=== PATIENT | female | born 1995 | race Hispanic/Latino ===

== ENCOUNTER 2018-09-14 11:44 | Emergency (ER) | payer OTHER ==
[2018-09-14 13:08] LABS: Absolute Monocytes 0.6 K/uL (0.1-1.3); Absolute Neutrophil 8.1 K/uL (1.8-8.0); Basophils % 0.7 % (0-1.3); Eosinophils % 0.7 % (0-4.4); Hematocrit 41.2 % (36.0-45.0); Lymphocytes % 18.8 % (15.3-44.8); Monocytes % 5.6 % (3.3-12.3)
[2018-09-14] MEDS ORDERED: NA CHLORIDE 0.9% 1,000 ML ONE (13:12)
[2018-09-14 13:13] LABS: Protime INR 1.03
[2018-09-14] MEDS ORDERED: CEFTRIAXONE/SWI 1gm 1 GM/10 ML SYR ONE (13:24)
[2018-09-14 13:35] LABS: ALT/SGPT 25 U/L (12-78); AST/SGOT 12 U/L (15-37); Albumin 3.6 g/dL (3.4-5.0); Alkaline Phosphatase 237 U/L (45-117); BUN Blood Urea Nitrogen 10 mg/dL (7-18); Bicarbonate 25 mmol/L (21-32); Bilirubin Direct < 0.1 mg/dL (0-0.2); Bilirubin Total 0.3 mg/dL (0.2-1.0); Glucose Level 107 mg/dL (74-106); Magnesium 2.4 mg/dL (1.8-2.4); NT PRO-BNP 12 pg/mL (<125); Potassium 3.4 mmol/L (3.5-5.1); Protein, Total 8.6 g/dL (6.4-8.2); Sodium Level 140 mmol/L (136-145); Troponin (Emerg Dept Use Only) < 0.02 ng/mL (0.0-0.045)
--- NOTE | 2018-09-14 13:41 | RAD REPORT ---
EXAM DESCRIPTION: RAD - Chest Single View - 09/14/2018 1:36 pm CLINICAL HISTORY: COUGH Chest pain. COMPARISON: Chest Single View dated 08/28/2016; CHEST PA AND LAT 2 VIEW dated 03/22/2014 FINDINGS: Portable technique limits examination quality. The lungs are grossly clear. The heart is normal in size. No displaced fractures.Mild thoracic dextro scoliosis. IMPRESSION: No acute intrathoracic process suspected.
[2018-09-14 13:46] LABS: Urine Blood NEGATIVE (NEG); Urine Glucose NEGATIVE (NEG); Urine Protein NEGATIVE (NEG); Urine Specific Gravity 1.015 (1.005-1.030); Urine pH 5.5 (5.0-7.0)
[2018-09-14 13:52] LABS: Urine Bacteria 20-50 /HPF (<20); Urine Culture Reflex Order REFLEXED
--- NOTE | 2018-09-14 13:57 | EDPHYS ---
Physician Documentation [facility] Name: Rosanne Sparks Age: 22 yrs Sex: Female : 1995 Arrival Date: 09/14/2018 Time: 11:46 Bed 17 Private MD: ED Physician Lorri Plascencia HPI: 09/14 13:23 This 22 yrs old Female presents to ER via Ambulatory with complaints of High ma2 Blood Pressure. 13:24 This 22 yrs old Female presents to ER via Ambulatory with complaints of High ma2 Blood Pressure. 13:24 Onset: The symptoms/episode began/occurred gradually, 1 week(s) ago. Associated signs ma2 and symptoms: Pertinent positives: lightheadedness , Pertinent negatives: dizziness, headache, nausea, weakness. Severity of symptoms: At its worst the blood pressure was mild, in the emergency department the blood pressure is unchanged. The patient has not experienced similar symptoms in the past. 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 - Social history:: Smoking status: Patient/guardian denies using tobacco, Patient/guardian denies using alcohol, street drugs, The patient lives alone. - Ebola Screening: : No symptoms or risks identified at this time. - Family history:: not pertinent. ROS: 13:24 Constitutional: Negative for fever, chills, and weight loss, Cardiovascular: Negative ma2 for chest pain, palpitations, and edema, Respiratory: Negative for shortness of breath, cough, wheezing, and pleuritic chest pain, Abdomen/GI: Negative for abdominal pain, nausea, diarrhea, and constipation, MS/Extremity: Negative for injury and deformity, Skin: Negative for injury, rash, and discoloration, Neuro: Negative for headache, weakness, numbness, tingling, and seizure. 13:24 Cardiovascular: Positive for 13:24 All other systems are negative. Exam: 13:24 Constitutional: This is a well developed, well nourished patient who is awake, alert, ma2 and in no acute distress. 13:24 ENT: Nares patent. No nasal discharge, no septal abnormalities noted. Tympanic membranes are normal and external auditory canals are clear. Oropharynx with no redness, swelling, or masses, exudates, or evidence of obstruction, uvula midline. Mucous membranes moist. Chest/axilla: Normal chest wall appearance and motion. Nontender with no deformity. No lesions are appreciated. Respiratory: Lungs have equal breath sounds bilaterally, clear to auscultation and percussion. No rales, rhonchi or wheezes noted. No increased work of breathing, no retractions or nasal flaring. Abdomen/GI: Soft, non-tender, with normal bowel sounds. No distension or tympany. No guarding or rebound. No evidence of tenderness throughout. MS/ Extremity: Pulses equal, no cyanosis. Neurovascular intact. Full, normal range of motion. Neuro: Awake and alert, GCS 15, oriented to person, place, time, and situation. Cranial nerves II-XII grossly intact. Motor strength 5/5 in all extremities. Sensory grossly intact. Cerebellar exam normal. Normal gait. 13:24 Cardiovascular: Rate: tachycardic, Rhythm: regular, Pulses: Heart sounds: normal, Edema: is not appreciated. Vital Signs: 11:54 BP 131 / 85; Pulse 118; Resp 18 S; Temp 98.2(TE); Pulse Ox 98% on R/A; Weight 92.53 kg aa5 (R); Height 5 ft. 0 in. (152.40 cm) (R); Pain 0/10; 14:24 BP 127 / 79; Pulse 95; Resp 16; Pulse Ox 98% ; bp 11:54 Body Mass Index 39.84 (92.53 kg, 152.40 cm) aa5 MDM: 11:55 Patient medically screened. ma2 13:24 Differential diagnosis: unlikely new onset HTN, bp here wnl, will do tachycardia workup ma2 no P risk, likely UTI vs pneumonia. 13:56 Data reviewed: vital signs, nurses notes. Counseling: I had a detailed discussion with ma2 the patient and/or guardian regarding: the historical points, exam findings, and any diagnostic results supporting the discharge/admit diagnosis, the presence of at least one elevated blood pressure reading (>120/80) during this emergency department visit, the need for outpatient follow up. Response to treatment: the patient's symptoms have markedly improved after treatment, the patient's symptoms have resolved after treatment. 09/14 12:32 Order name: Basic Metabolic Panel; Complete Time: 13:55 ma2 09/14 12:32 Order name: CBC with Diff; Complete Time: 13:24 ma2 09/14 12:32 Order name: LFT's; Complete Time: 13:55 ma2 09/14 12:32 Order name: Magnesium; Complete Time: 13:55 ma2 09/14 12:32 Order name: NT PRO-BNP; Complete Time: 13:55 ma2 09/14 12:32 Order name: PT-INR; Complete Time: 13:24 ma2 09/14 12:32 Order name: Troponin (emerg Dept Use Only); Complete Time: 13:55 ma2 09/14 12:32 Order name: XRAY Chest (1 view); Complete Time: 13:55 ma2 09/14 12:45 Order name: Strep; Complete Time: 13:55 ma2 09/14 13:10 Order name: Urine Microscopic Only; Complete Time: 13:55 ma2 09/14 13:20 Order name: Urine Dipstick--Ancillary (enter results); Complete Time: 13:55 bd 09/14 13:20 Order name: Urine --Ancillary (enter results); Complete Time: 13:55 bd 09/14 13:40 Order name: Throat Culture [facility] 09/14 13:53 Order name: Urine Culture [facility] 09/14 12:32 Order name: Urine Dipstick-Ancillary (obtain specimen); Complete Time: 13:13 ma2 Administered Medications: 12:44 Drug: NS 0.9% 1000 ml Route: IV; Rate: 1 bolus; Site: right antecubital; bp 14:00 Follow up: IV Status: Completed infusion; IV Intake: 1000ml bp 13:14 Drug: Rocephin 1 grams Route: IV; Rate: calculated rate; Site: right antecubital; bp 13:30 Follow up: IV Status: Completed infusion; IV Intake: 10ml bp Disposition: 09/14/18 13:56 Discharged to Home. Impression: Cystitis, unspecified without hematuria. - Condition is Stable. - Discharge Instructions: Urinary Tract Infection, Adult. - Prescriptions for Bactrim DS 800- 160 mg Oral Tablet - take 1 tablet by ORAL route every 12 hours for 3 days; 6 tablet. - Medication Reconciliation Form, Thank You Letter, Antibiotic Education, Prescription Opioid Use form. - Follow up: Private Physician; When: Tomorrow; Reason: Continuance of care. Signatures: Dispatcher [employer] EDKhalida Haywood, RN RN aa5 Suleman Regalado RN RN bp Lorri Plascencia MD MD ma2 Corrections: (The following items were deleted from the chart) 14:26 13:56 09/14/2018 13:56 Discharged to Home. Impression: Cystitis, unspecified without bp hematuria. Condition is Stable. Prescriptions for Bactrim DS 800-160 mg Oral Tablet - take 1 tablet by ORAL route every 12 hours for 3 days; 6 tablet. and Forms are Medication Reconciliation Form, Thank You Letter, Antibiotic Education, Prescription Opioid Use. Follow up: Private Physician; When: Tomorrow; Reason: Continuance of care. ma2
--- NOTE | 2018-09-14 13:57 | ER ---
Nurse's Notes [facility] Name: Rosanne Sparks Age: 22 yrs Sex: Female : 1995 Arrival Date: 09/14/2018 Time: 11:46 Bed 17 Private MD: Diagnosis: Cystitis, unspecified without hematuria Presentation: 09/14 11:52 Presenting complaint: Patient states: "I was dizzy yesterday so my grandma was worried aa5 about me". Pt currently denies dizziness, denies pain. Transition of care: patient was not received from another setting of care. Onset of symptoms was September 2018. Care prior to arrival: None. 11:52 Method Of Arrival: Ambulatory aa5 11:52 Acuity: GARRY 3 aa5 12:00 Risk Assessment: Do you want to hurt yourself or someone else? Patient reports no bp desire to harm self or others. Initial Sepsis Screen: Does the patient meet any 2 criteria? No. Patient's initial sepsis screen is negative. Does the patient have a suspected source of infection? No. Patient's initial sepsis screen is negative. Triage Assessment: 12:00 General: Appears in no apparent distress. comfortable, obese, Behavior is cooperative, bp appropriate for age, anxious. Pain: Denies pain. EENT: No deficits noted. Neuro: Level of Consciousness is awake, alert, obeys commands, Oriented to person, place, time, situation, Appropriate for age Reports dizziness. Cardiovascular: No deficits noted. Respiratory: Airway is patent Respiratory effort is even, unlabored, Respiratory pattern is regular, symmetrical. GI: No signs and/or symptoms were reported involving the gastrointestinal system. : No signs and/or symptoms were reported regarding the genitourinary system. Derm: No deficits noted. Musculoskeletal: Circulation, motion, and sensation intact. Range of motion: intact in all extremities. 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 - Social history:: Smoking status: Patient/guardian denies using tobacco, Patient/guardian denies using alcohol, street drugs, The patient lives alone. - Ebola Screening: : No symptoms or risks identified at this time. - Family history:: not pertinent. Screenin:00 Abuse screen: Denies threats or abuse. Denies injuries from another. Nutritional bp screening: No deficits noted. Tuberculosis screening: No symptoms or risk factors identified. Fall Risk None identified. Assessment: 12:00 General: SEE TRIAGE NOTE. bp 14:23 Reassessment: PT D/C HOME AMBULATORY, DX WITH CYSTITIS. bp Vital Signs: 11:54 BP 131 / 85; Pulse 118; Resp 18 S; Temp 98.2(TE); Pulse Ox 98% on R/A; Weight 92.53 kg aa5 (R); Height 5 ft. 0 in. (152.40 cm) (R); Pain 0/10; 14:24 BP 127 / 79; Pulse 95; Resp 16; Pulse Ox 98% ; bp 11:54 Body Mass Index 39.84 (92.53 kg, 152.40 cm) aa5 ED Course: 11:46 Patient arrived in ED. rg4 11:52 Arm band placed on. aa5 11:53 Triage completed. aa5 11:55 Lorri Plascencia MD is Attending Physician. ma2 12:00 Patient has correct armband on for positive identification. Bed in low position. Call bp light in reach. Side rails up X2. 12:01 Suleman Regalado, RN is Primary Nurse. bp 12:50 Inserted saline lock: 20 gauge in right antecubital area, using aseptic technique. bp Blood collected. 12:53 Note: ATTEMPTED CXR, PT WASN'T PROPERLY DRESSED IN GOWN WILL RETURN WHEN PT IS READY. sw 13:29 X-ray completed. Portable x-ray completed in exam room. Patient tolerated procedure sw well. 13:36 XRAY Chest (1 view) In Process Unspecified. EDMS 14:23 No provider procedures requiring assistance completed. IV discontinued, intact, bp bleeding controlled, No redness/swelling at site. Pressure dressing applied. Administered Medications: 12:44 Drug: NS 0.9% 1000 ml Route: IV; Rate: 1 bolus; Site: right antecubital; bp 14:00 Follow up: IV Status: Completed infusion; IV Intake: 1000ml bp 13:14 Drug: Rocephin 1 grams Route: IV; Rate: calculated rate; Site: right antecubital; bp 13:30 Follow up: IV Status: Completed infusion; IV Intake: 10ml bp Intake: 13:30 IV: 10ml; Total: 10ml. bp 14:00 IV: 1000ml; Total: 1010ml. bp Outcome: 13:56 Discharge ordered by MD. wheeler 14:24 Discharged to home ambulatory. bp 14:24 Condition: stable 14:24 Discharge instructions given to patient, Instructed on discharge instructions, follow up and referral plans. medication usage, Demonstrated understanding of instructions, follow-up care, medications, Prescriptions given X 1. 14:26 Patient left the ED. bp Signatures: Dispatcher [employer] EDMS Khalida Salazar RN RN aa5 Pushpa Howard Rubi rg4 Suleman Regalado RN RN Lorri Hurley MD MD ma2 Corrections: (The following items were deleted from the chart) 11:54 11:52 Acuity: GARRY 4 aa5 aa5
== END 2018-09-14 14:26 | disposition home or self-care (01) ==
LOC: ER 11:44
DX: N30.90 Cystitis, unspecified without hematuria (principal); R03.0 Elevated blood-pressure reading, without diagnosis of hypertension; E11.9 Type 2 diabetes mellitus without complications; Z79.4 Long term (current) use of insulin
CPT/HCPCS: 36415; 71045; 80048; 80076; 81003; 81015; 81025; 83735; 83880; 84484; 85025; 85610; 87070; 87081; 87086; 87088; 96361; 96365; 99284; J0696; J7030

== ENCOUNTER 2019-01-11 23:51 | Emergency (ER) | payer OTHER ==
[2019-01-12 01:11] LABS: Urine Blood 3+ (NEG); Urine Glucose NEGATIVE (NEG); Urine Protein NEGATIVE (NEG); Urine Specific Gravity 1.015 (1.005-1.030); Urine pH 6.5 (5.0-7.0)
[2019-01-12 01:41] LABS: Absolute Lymphocytes (CBC) 0.7 K/uL (0.7-4.9); Basophils % 0.4 % (0-1.3); Hematocrit 41.1 % (36.0-45.0); Lymphocytes % 14.4 % (15.3-44.8); MPV 8.2 fL (7.6-11.3); RBC Red Blood Cell Count 5.08 M/uL (3.86-4.86)
[2019-01-12 01:58] LABS: ALT/SGPT 25 U/L (12-78); AST/SGOT 9 U/L (15-37); Albumin 3.4 g/dL (3.4-5.0); Alkaline Phosphatase 194 U/L (45-117); BUN Blood Urea Nitrogen 5 mg/dL (7-18); Bicarbonate 23 mmol/L (21-32); Bilirubin Direct < 0.1 mg/dL (0-0.2); Bilirubin Total 0.2 mg/dL (0.2-1.0); Glucose Level 90 mg/dL (74-106); Lipase 42 U/L (73-393); Potassium 3.4 mmol/L (3.5-5.1); Protein, Total 7.9 g/dL (6.4-8.2); Sodium Level 140 mmol/L (136-145)
--- NOTE | 2019-01-12 02:25 | EDPHYS ---
Physician Documentation [facility] Name: Rosanne Sparks Age: 23 yrs Sex: Female : 1995 Arrival Date: 01/11/2019 Time: 23:53 Bed 5 Private MD: ED Physician To Ng HPI: 01/12 01:41 This 23 yrs old Female presents to ER via Ambulatory with complaints of kb Nausea/Vomiting. 01:41 The patient presents to the emergency department with nausea, vomiting. Onset: The kb symptoms/episode began/occurred last night. Possible causes: unknown. The symptoms are aggravated by nothing. The symptoms are alleviated by nothing. Associated signs and symptoms: Pertinent positives: abdominal pain, nausea, vomiting. Severity of symptoms: At their worst the symptoms were moderate in the emergency department the symptoms are unchanged. The patient has not experienced similar symptoms in the past. The patient has not recently seen a physician. Pt reports nausea, vomiting and lower abd pain that started last night. 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 - Social history:: Smoking status: Patient/guardian denies using tobacco, Patient/guardian denies using alcohol, street drugs. - Ebola Screening: : Patient negative for fever greater than or equal to 101.5 degrees Fahrenheit, and additional compatible Ebola Virus Disease symptoms Patient denies exposure to infectious person Patient denies travel to an Ebola-affected area in the 21 days before illness onset. ROS: 01:42 Constitutional: Negative for fever, chills, and weight loss, ENT: Negative for injury, kb pain, and discharge, Neck: Negative for injury, pain, and swelling, Cardiovascular: Negative for chest pain, palpitations, and edema, Respiratory: Negative for shortness of breath, cough, wheezing, and pleuritic chest pain, Back: Negative for injury and pain, : Negative for injury, bleeding, discharge, and swelling, MS/Extremity: Negative for injury and deformity, Skin: Negative for injury, rash, and discoloration, Neuro: Negative for headache, weakness, numbness, tingling, and seizure. 01:42 Abdomen/GI: Positive for abdominal pain, nausea and vomiting, Negative for diarrhea, constipation, abdominal cramps, abdominal distension, anorexia. Exam: 01:42 Constitutional: This is a well developed, well nourished patient who is awake, alert, kb and in no acute distress. Head/Face: Normocephalic, atraumatic. ENT: Nares patent. No nasal discharge, no septal abnormalities noted. Tympanic membranes are normal and external auditory canals are clear. Oropharynx with no redness, swelling, or masses, exudates, or evidence of obstruction, uvula midline. Mucous membranes moist. Neck: Trachea midline, no thyromegaly or masses palpated, and no cervical lymphadenopathy. Supple, full range of motion without nuchal rigidity, or vertebral point tenderness. No Meningismus. Chest/axilla: Normal chest wall appearance and motion. Nontender with no deformity. No lesions are appreciated. Cardiovascular: Regular rate and rhythm with a normal S1 and S2. No gallops, murmurs, or rubs. Normal PMI, no JVD. No pulse deficits. Respiratory: Lungs have equal breath sounds bilaterally, clear to auscultation and percussion. No rales, rhonchi or wheezes noted. No increased work of breathing, no retractions or nasal flaring. Back: No spinal tenderness. No costovertebral tenderness. Full range of motion. Skin: Warm, dry with normal turgor. Normal color with no rashes, no lesions, and no evidence of cellulitis. MS/ Extremity: Pulses equal, no cyanosis. Neurovascular intact. Full, normal range of motion. Neuro: Awake and alert, GCS 15, oriented to person, place, time, and situation. Cranial nerves II-XII grossly intact. Motor strength 5/5 in all extremities. Sensory grossly intact. Cerebellar exam normal. Normal gait. 01:42 Abdomen/GI: Inspection: abdomen appears normal, Bowel sounds: normal, in all quadrants, Palpation: soft, in all quadrants, mild abdominal tenderness, in the right lower quadrant and left lower quadrant. Vital Signs: 00:20 BP 122 / 77; Pulse 111; Resp 18; Temp 98.6(O); Pulse Ox 97% on R/A; Weight 88.9 kg (R); fc Height 5 ft. 0 in. (152.40 cm) (R); Pain 8/10; 01:32 BP 115 / 77 LA Supine (auto/lg); Pulse 100; Resp 18; Pulse Ox 98% on R/A; ak1 01:35 BP 120 / 78 LA Sitting (auto/lg); Pulse 102; Resp 18; Pulse Ox 98% on R/A; ak1 01:38 BP 126 / 85 LA Standing (auto/lg); Pulse 121; Resp 18; Pulse Ox 99% on R/A; ak1 02:00 BP 102 / 73 LA Supine (auto/lg); Pulse 95; Resp 16; Pulse Ox 98% on R/A; ak1 02:47 BP 103 / 69; Pulse 93; Resp 18; Temp 98.6; Pulse Ox 97% on R/A; Pain 0/10; ak1 00:20 Body Mass Index 38.28 (88.90 kg, 152.40 cm) fc MDM: 00:36 Patient medically screened. kb 01:41 Data reviewed: vital signs, nurses notes. Data interpreted: Pulse oximetry: on room air kb is 99 %. Interpretation: normal. 02:21 Counseling: I had a detailed discussion with the patient and/or guardian regarding: the kb historical points, exam findings, and any diagnostic results supporting the discharge/admit diagnosis, lab results, the need for outpatient follow up, a family practitioner, to return to the emergency department if symptoms worsen or persist or if there are any questions or concerns that arise at home. 01/12 00:55 Order name: Basic Metabolic Panel; Complete Time: 02:14 kb 01/12 00:55 Order name: CBC with Diff; Complete Time: 02:14 kb 01/12 00:55 Order name: Hepatic Function; Complete Time: 02:14 kb 01/12 00:55 Order name: Lipase; Complete Time: 02:14 kb 01/12 00:58 Order name: Urine Microscopic Only kb 01/12 01:02 Order name: Urine Dipstick--Ancillary (enter results); Complete Time: 01:20 mw2 01/12 00:55 Order name: IV Saline Lock; Complete Time: 01:38 kb 01/12 00:55 Order name: Labs collected and sent; Complete Time: :38 kb 01/12 00:55 Order name: Urine Dipstick-Ancillary (obtain specimen); Complete Time: 01:18 kb 01/12 00:55 Order name: Orthostatics; Complete Time: 01:37 kb 01/12 01:02 Order name: Urine --Ancillary (enter results); Complete Time: 01:20 mw2 01/12 02:28 Order name: Urine Culture EDPA Administered Medications: 01:38 Drug: NS 0.9% 1000 ml Route: IV; Rate: 1000 ml; Site: right antecubital; ak1 02:46 Follow up: IV Status: Completed infusion; IV Intake: 1000ml ak1 01:38 Drug: Zofran 4 mg Route: IVP; Site: right antecubital; ak1 02:04 Follow up: Response: No adverse reaction; Nausea is decreased ak1 Disposition: 03:57 Co-signature as Attending Physician, To Ng MD. rn Disposition: 01/12/19 02:23 Discharged to Home. Impression: Nausea and vomiting. - Condition is Stable. - Discharge Instructions: Nausea and Vomiting, Adult, [id number]. - Prescriptions for Bentyl 20 mg Oral Tablet - take 1 tablet by ORAL route every 6 hours As needed; 20 tablet. Zofran 4 mg Oral Tablet - take 1 tablet by ORAL route every 6 hours As needed; 20 tablet. - Medication Reconciliation Form, Thank You Letter, Antibiotic Education, Prescription Opioid Use form. - Follow up: Emergency Department; When: As needed; Reason: Worsening of condition. Follow up: Private Physician; When: 2 - 3 days; Reason: Recheck today's complaints, Continuance of care, Re-evaluation by your physician. Signatures: Dispatcher [employer] EDPA Julia Coker, ELLYN OWENS-Maribeth Capps RN RN fc Nieto, Roman, MD MD rn Krenek, Amber RN RN ak1 Corrections: (The following items were deleted from the chart) 02:48 02:23 01/12/2019 02:23 Discharged to Home. Impression: Nausea and vomiting. Condition ak1 is Stable. Forms are Medication Reconciliation Form, Thank You Letter, Antibiotic Education, Prescription Opioid Use. Follow up: Emergency Department; When: As needed; Reason: Worsening of condition. Follow up: Private Physician; When: 2 - 3 days; Reason: Recheck today's complaints, Continuance of care, Re-evaluation by your physician. kb
--- NOTE | 2019-01-12 02:25 | ER ---
Nurse's Notes [facility] Name: Rosanne Sparks Age: 23 yrs Sex: Female : 1995 Arrival Date: 01/11/2019 Time: 23:53 Bed 5 Private MD: Diagnosis: Nausea and vomiting Presentation: 01/12 00:20 Presenting complaint: Patient states: that yesterday she start to have mid abd pain, fc nausea and has vomited x 8 in the past 24 hrs. After all this started she noted to be having dizziness. Transition of care: patient was not received from another setting of care. Onset of symptoms was January 10, 2019. Risk Assessment: Do you want to hurt yourself or someone else? Patient reports no desire to harm self or others. Initial Sepsis Screen: Does the patient meet any 2 criteria? HR > 90 bpm. Yes Does the patient have a suspected source of infection? No. Patient's initial sepsis screen is negative. Care prior to arrival: None. 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 - Social history:: Smoking status: Patient/guardian denies using tobacco, Patient/guardian denies using alcohol, street drugs. - Ebola Screening: : Patient negative for fever greater than or equal to 101.5 degrees Fahrenheit, and additional compatible Ebola Virus Disease symptoms Patient denies exposure to infectious person Patient denies travel to an Ebola-affected area in the 21 days before illness onset. Screenin:20 Abuse screen: Denies threats or abuse. Nutritional screening: No deficits noted. fc Tuberculosis screening: No symptoms or risk factors identified. Fall Risk None identified. Assessment: 01:35 General: Appears in no apparent distress. Behavior is calm, cooperative. ak1 01:35 Pain: Denies pain. Neuro: Level of Consciousness is awake, alert, obeys commands, ak1 Oriented to person, place, time, situation, Appropriate for age pt c/o dizziness since last night. Pricer Bagger are equal bilaterally Moves all extremities. Speech is normal, Facial symmetry appears normal. Cardiovascular: No deficits noted. Respiratory: No deficits noted. GI: Abdomen is round non-distended, Bowel sounds present X 4 quads. Reports nausea, vomiting. : No signs and/or symptoms were reported regarding the genitourinary system. EENT: No signs and/or symptoms were reported regarding the EENT system. Derm: No signs and/or symptoms reported regarding the dermatologic system. Musculoskeletal: No signs and/or symptoms reported regarding the musculoskeletal system. 02:47 Reassessment: Patient appears in no apparent distress at this time. Patient and/or ak1 family updated on plan of care and expected duration. Pain level reassessed. Patient is alert, oriented x 3, equal unlabored respirations, skin warm/dry/pink. pt with steady gait at discharge. pt denied Nausea or dizziness at discharge. Patient denies pain at this time. Patient states feeling better. Patient states symptoms have improved. Vital Signs: 00:20 BP 122 / 77; Pulse 111; Resp 18; Temp 98.6(O); Pulse Ox 97% on R/A; Weight 88.9 kg (R); fc Height 5 ft. 0 in. (152.40 cm) (R); Pain 8/10; 01:32 BP 115 / 77 LA Supine (auto/lg); Pulse 100; Resp 18; Pulse Ox 98% on R/A; ak1 01:35 BP 120 / 78 LA Sitting (auto/lg); Pulse 102; Resp 18; Pulse Ox 98% on R/A; ak1 01:38 BP 126 / 85 LA Standing (auto/lg); Pulse 121; Resp 18; Pulse Ox 99% on R/A; ak1 02:00 BP 102 / 73 LA Supine (auto/lg); Pulse 95; Resp 16; Pulse Ox 98% on R/A; ak1 02:47 BP 103 / 69; Pulse 93; Resp 18; Temp 98.6; Pulse Ox 97% on R/A; Pain 0/10; ak1 00:20 Body Mass Index 38.28 (88.90 kg, 152.40 cm) ED Course: 01/11 23:53 Patient arrived in ED. cl3 01/12 00:01 Julia Coker FNP-C is [facility]. kb 00:01 To Ng MD is Attending Physician. kb 00:20 Arm band placed on Patient placed in an exam room, on a stretcher. fc 00:20 Patient has correct armband on for positive identification. Placed in gown. Bed in low fc position. Call light in reach. Side rails up X 1. Pulse ox on. NIBP on. 00:20 No provider procedures requiring assistance completed. 01:02 Triage completed. 01:17 Doretha Cueva, RN is Primary Nurse. ak1 01:35 Door closed. Lights dimmed. Head of bed lowered. ak1 01:36 Initial lab(s) drawn, by nj, sent to lab. Urine collected: clean catch specimen. ak1 Inserted saline lock: 20 gauge in right antecubital area, using aseptic technique. Blood collected. 02:46 IV discontinued, intact, bleeding controlled, No redness/swelling at site. Pressure ak1 dressing applied. Administered Medications: 01:38 Drug: NS 0.9% 1000 ml Route: IV; Rate: 1000 ml; Site: right antecubital; ak1 02:46 Follow up: IV Status: Completed infusion; IV Intake: 1000ml ak1 01:38 Drug: Zofran 4 mg Route: IVP; Site: right antecubital; ak1 02:04 Follow up: Response: No adverse reaction; Nausea is decreased ak1 Intake: 02:46 IV: 1000ml; Total: 1000ml. ak1 Outcome: 02:23 Discharge ordered by MD. kb 02:46 Discharged to home ambulatory, with family. ak1 02:46 Condition: improved 02:46 Discharge instructions given to patient, family, Instructed on discharge instructions, follow up and referral plans. no drinking with medication, no driving heavy equipment, medication usage, Demonstrated understanding of instructions, follow-up care, medications, Prescriptions given X 2. 02:48 Patient left the ED. ak1 Signatures: Julia Coker FNP-C FNP-Ckb Chretien, Felicia RN JOHN Doretha Cueva RN RN Jamin Grey cl3 Corrections: (The following items were deleted from the chart) 01:05 00:20 LMP 01/12/2019 [facility]
[2019-01-12 02:27] LABS: Urine Bacteria <20 /HPF (<20); Urine Culture Reflex Order REFLEXED; Urine RBC 20-50 /HPF (NONE SEEN)
== END 2019-01-12 02:48 | disposition home or self-care (01) ==
LOC: ER 23:51
DX: R11.2 Nausea with vomiting, unspecified (principal); E11.9 Type 2 diabetes mellitus without complications; Z79.4 Long term (current) use of insulin
CPT/HCPCS: 36415; 80048; 80076; 81003; 81015; 81025; 83690; 85025; 87086; 87088; 96361; 96374; 99284

== ENCOUNTER 2019-07-23 00:30 | Emergency (ER) | payer OTHER ==
[2019-07-23] MEDS ORDERED: NA CHLORIDE 0.9% 1,000 ML ONE (01:35)
[2019-07-23] MEDS ORDERED: KETOROLAC 30 MG/ML INJ ONE (01:35)
[2019-07-23] MEDS ORDERED: PROMETHAZINE INJ 25 MG/ML AMP ONE (01:35)
[2019-07-23] MEDS ORDERED: DIPHENHYDRAMINE 50 MG/ML VIAL ONE (01:35)
[2019-07-23 02:11] LABS: Absolute Lymphocytes (CBC) 0.8 K/uL (0.7-4.9); Basophils % 0.4 % (0-1.3); MPV 8.2 fL (7.6-11.3); RBC Red Blood Cell Count 5.01 M/uL (3.86-4.86)
[2019-07-23 02:13] LABS: ALT/SGPT 26 U/L (12-78); AST/SGOT 7 U/L (15-37); Albumin 3.4 g/dL (3.4-5.0); Alkaline Phosphatase 236 U/L (45-117); BUN Blood Urea Nitrogen 9 mg/dL (7-18); Bicarbonate 23 mmol/L (21-32); Bilirubin Direct < 0.1 mg/dL (0-0.2); Bilirubin Total 0.3 mg/dL (0.2-1.0); Glucose Level 160 mg/dL (74-106); Lipase 55 U/L (73-393); Potassium 3.7 mmol/L (3.5-5.1); Protein, Total 7.8 g/dL (6.4-8.2); Sodium Level 140 mmol/L (136-145)
[2019-07-23 02:14] LABS: Urine Blood NEGATIVE (NEG); Urine Glucose NEGATIVE (NEG); Urine Protein NEGATIVE (NEG); Urine Specific Gravity 1.025 (1.005-1.030); Urine pH 7.5 (5.0-7.0)
--- NOTE | 2019-07-23 03:40 | EDPHYS ---
Physician Documentation [facility] Name: Rosanne Sparks Age: 23 yrs Sex: Female : 1995 Arrival Date: 07/23/2019 Time: 00:52 Bed 6 Private MD: ED Physician Skinny Cheney HPI: 07/23 04:28 This 23 yrs old Female presents to ER via Ambulatory with complaints of kdr Headache, Abdominal Pain. 04:28 The patient complains of pain to the forehead. The patient describes the headache as kdr aching, a pressure, waxing and waning. Onset: The symptoms/episode began/occurred gradually, 2 week(s) ago. Associated signs and symptoms: Pertinent positives: fever, malaise, Photophobia weakness, Pertinent negatives: altered mental status, neck stiffness, paresthesias, rash. Severity of symptoms: At its worst the pain was mild, in the emergency department the pain is unchanged. Headache History: Denies prior headaches. The symptoms are alleviated by nothing. the symptoms are aggravated by lights. The patient has not experienced similar symptoms in the past. The patient has not recently seen a physician. 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 - Coronavirus screen:: The patient has NOT traveled to [place] in the past 14 days. Proceed with normal triage process as indicated. - Social history:: Smoking status: unknown Patient/guardian denies using alcohol, street drugs. - Ebola Screening: : Patient negative for fever greater than or equal to 101.5 degrees Fahrenheit, and additional compatible Ebola Virus Disease symptoms Patient denies exposure to infectious person Patient denies travel to an Ebola-affected area in the 21 days before illness onset. ROS: 04:28 Constitutional: Negative for fever, chills, and weight loss, Eyes: Negative for injury, kdr pain, redness, and discharge, ENT: Negative for injury, pain, and discharge, Neck: Negative for injury, pain, and swelling, Cardiovascular: Negative for chest pain, palpitations, and edema, Respiratory: Negative for shortness of breath, cough, wheezing, and pleuritic chest pain, Back: Negative for injury and pain, : Negative for injury, bleeding, discharge, and swelling, MS/Extremity: Negative for injury and deformity, Skin: Negative for injury, rash, and discoloration, Psych: Negative for depression, anxiety, suicide ideation, homicidal ideation, and hallucinations, Allergy/Immunology: Negative for hives, rash, and allergies, Endocrine: Negative for neck swelling, polydipsia, polyuria, polyphagia, and marked weight changes, Hematologic/Lymphatic: Negative for swollen nodes, abnormal bleeding, and unusual bruising. 04:28 Abdomen/GI: Positive for rectal bleeding, Negative for nausea, vomiting, diarrhea, constipation, abdominal cramps, abdominal distension, anorexia, dysphagia, hematemesis, black/tarry stool, rectal pain. Exam: 04:28 Constitutional: This is a well developed, well nourished patient who is awake, alert, kdr and in no acute distress. Head/Face: Normocephalic, atraumatic. Eyes: Pupils equal round and reactive to light, extra-ocular motions intact. Lids and lashes normal. Conjunctiva and sclera are non-icteric and not injected. Cornea within normal limits. Periorbital areas with no swelling, redness, or edema. Neck: Trachea midline, no thyromegaly or masses palpated, and no cervical lymphadenopathy. Supple, full range of motion without nuchal rigidity, or vertebral point tenderness. No Meningismus. Chest/axilla: Normal chest wall appearance and motion. Nontender with no deformity. No lesions are appreciated. Cardiovascular: Regular rate and rhythm with a normal S1 and S2. No gallops, murmurs, or rubs. Normal PMI, no JVD. No pulse deficits. Respiratory: Lungs have equal breath sounds bilaterally, clear to auscultation and percussion. No rales, rhonchi or wheezes noted. No increased work of breathing, no retractions or nasal flaring. Abdomen/GI: Soft, non-tender, with normal bowel sounds. No distension or tympany. No guarding or rebound. No evidence of tenderness throughout. Back: No spinal tenderness. No costovertebral tenderness. Full range of motion. Skin: Warm, dry with normal turgor. Normal color with no rashes, no lesions, and no evidence of cellulitis. MS/ Extremity: Pulses equal, no cyanosis. Neurovascular intact. Full, normal range of motion. Neuro: Awake and alert, GCS 15, oriented to person, place, time, and situation. Cranial nerves II-XII grossly intact. Motor strength 5/5 in all extremities. Sensory grossly intact. Cerebellar exam normal. Normal gait. Psych: Awake, alert, with orientation to person, place and time. Behavior, mood, and affect are within normal limits. Vital Signs: 01:10 BP 144 / 79; Pulse 111; Resp 19; Temp 98.2; Pulse Ox 96% ; Weight 92.99 kg; Height 5 rr5 ft. 0 in. (152.40 cm); Pain 10/10; 02:06 BP 121 / 81; Pulse 115; Resp 18; Pulse Ox 99% ; rr5 03:10 BP 134 / 86; Pulse 105; Resp 19; Pulse Ox 99% ; Pain 5/10; rr5 01:10 Body Mass Index 40.04 (92.99 kg, 152.40 cm) rr5 MDM: 03:39 Patient medically screened. kdr 04:28 Data reviewed: vital signs, nurses notes, lab test result(s), radiologic studies. kdr Counseling: I had a detailed discussion with the patient and/or guardian regarding: the historical points, exam findings, and any diagnostic results supporting the discharge/admit diagnosis, lab results, radiology results, the need for outpatient follow up. 07/23 01:25 Order name: Basic Metabolic Panel [facility] 07/23 01:25 Order name: CBC with Diff [facility] 07/23 01:25 Order name: Creatinine for Radiology [facility] 07/23 01:25 Order name: Hepatic Function [facility] 07/23 01:25 Order name: Lipase [facility] 07/23 02:07 Order name: Urine Dipstick--Ancillary (enter results) 6 07/23 02:07 Order name: Urine --Ancillary (enter results) [facility] 07/23 02:12 Order name: Creatinine (Radiology Only); Complete Time: 03:33 EDMS 07/23 02:13 Order name: CBC with Automated Diff [facility] 07/23 02:14 Order name: Basic Metabolic Panel; Complete Time: 03:33 EDMI 07/23 02:14 Order name: Liver (Hepatic) Function; Complete Time: 03:33 EDMS 07/23 02:14 Order name: Lipase; Complete Time: 03:33 EDMS 07/23 02:41 Order name: Urine --Ancillary; Complete Time: 03:33 EDMS 07/23 02:41 Order name: Urine Dipstick-Ancillary; Complete Time: 03:33 EDMS 07/23 01:25 Order name: IV Saline Lock; Complete Time: 02:06 kdr 07/23 01:25 Order name: Labs collected and sent; Complete Time: 02:06 kdr 07/23 01:25 Order name: CT Abd/Pelvis - IV Contrast Only kdr 07/23 01:25 Order name: Urine Dipstick-Ancillary (obtain specimen); Complete Time: 02:06 kdr 07/23 01:26 Order name: Urine Test (obtain specimen); Complete Time: 02:06 kdr Administered Medications: 02:00 Drug: NS 0.9% 1000 ml Route: IV; Rate: 1 bolus; Site: right antecubital; rr5 03:53 Follow up: IV Status: Completed infusion; IV Intake: 900ml lp1 02:01 Drug: TORadol - Ketorolac 15 mg Route: IVP; Site: right antecubital; rr5 03:54 Follow up: Response: No adverse reaction lp1 02:03 Drug: Benadryl 25 mg Route: IVP; Site: right antecubital; rr5 03:53 Follow up: Response: No adverse reaction lp1 02:05 Drug: Phenergan 12.5 mg Route: IVP; Site: right antecubital; rr5 03:54 Follow up: Response: No adverse reaction lp1 03:45 Drug: Bactrim (160 mg-800 mg (DS) 1 tablet Route: PO; lp1 03:56 Follow up: Response: Medication administered at discharge. lp1 Disposition: 07/23/19 03:39 Discharged to Home. Impression: Urinary tract infection, site not specified, Headache, Abdominal and pelvic pain. - Condition is Stable. - Discharge Instructions: General Headache Without Cause, Urinary Tract Infection, Adult, [id number], Abdominal Pain, Adult, [id number]. - Prescriptions for Tramadol 50 mg Oral Tablet - take 1 tablet by ORAL route every 8 hours as needed; 12 tablet. Bactrim DS 800- 160 mg Oral Tablet - take 1 tablet by ORAL route every 12 hours for 7 days; 14 tablet. - Medication Reconciliation Form, Thank You Letter, Antibiotic Education, Prescription Opioid Use form. - Follow up: Private Physician; When: 2 - 3 days; Reason: If symptoms return, Further diagnostic work-up, Recheck today's complaints, Continuance of care, Re-evaluation by your physician. - Problem is new. - Symptoms have improved. Signatures: Dispatcher [employer] EDMS Skinny Cheney MD MD kdr Diamond Baker RN RN lp1 Willy Orlando RN RN rr5 Corrections: (The following items were deleted from the chart) 03:55 03:39 07/23/2019 03:39 Discharged to Home. Impression: Urinary tract infection, site lp1 not specified; Headache; Abdominal and pelvic pain. Condition is Stable. Forms are Medication Reconciliation Form, Thank You Letter, Antibiotic Education, Prescription Opioid Use. Follow up: Private Physician; When: 2 - 3 days; Reason: If symptoms return, Further diagnostic work-up, Recheck today's complaints, Continuance of care, Re-evaluation by your physician. Problem is new. Symptoms have improved. kdr
--- NOTE | 2019-07-23 03:40 | ER ---
Nurse's Notes [facility] Name: Rosanne Sparks Age: 23 yrs Sex: Female : 1995 Arrival Date: 07/23/2019 Time: 00:52 Bed 6 Private MD: Diagnosis: Urinary tract infection, site not specified;Headache;Abdominal and pelvic pain Presentation: 07/23 01:10 Presenting complaint: Patient states: I am having this headache (frontal) now started rr5 around 6 PM. I took Excedrin around 10 PM but did not help the pain is getting worst. feels nauseous and sensitive to light. complaining of abdominal pain and anal bleeding started 2 weeks ago went to my doctor prescribed and scheduled for ultrasound on . 01:10 Transition of care: patient was not received from another setting of care. Onset of rr5 symptoms was July 22, 2019. Risk Assessment: Do you want to hurt yourself or someone else? Patient reports no desire to harm self or others. Initial Sepsis Screen: Does the patient meet any 2 criteria? No. Patient's initial sepsis screen is negative. Does the patient have a suspected source of infection? No. Patient's initial sepsis screen is negative. Care prior to arrival: Medication(s) given: on antibiotic, medicine for the anal bleed cannot recall the name and Excedrin for the headache. 01:10 Method Of Arrival: Ambulatory rr5 01:10 Acuity: GARRY 3 rr5 Triage Assessment: 01:10 Headache History: The patient has had previous headaches and this one is different than rr5 previous episodes, and this one is more severe than previous episodes. General: Appears in no apparent distress. uncomfortable, Behavior is calm, cooperative, appropriate for age. 01:10 Pain: Pain currently is 10 out of 10 on a pain scale. Pain began gradually, Also rr5 complains of photophobia. 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 - Coronavirus screen:: The patient has NOT traveled to [place] in the past 14 days. Proceed with normal triage process as indicated. - Social history:: Smoking status: unknown Patient/guardian denies using alcohol, street drugs. - Ebola Screening: : Patient negative for fever greater than or equal to 101.5 degrees Fahrenheit, and additional compatible Ebola Virus Disease symptoms Patient denies exposure to infectious person Patient denies travel to an Ebola-affected area in the 21 days before illness onset. Screenin:21 Abuse screen: Denies threats or abuse. Denies injuries from another. Nutritional rr5 screening: No deficits noted. Tuberculosis screening: No symptoms or risk factors identified. Fall Risk IV access (20 points). Total Najera Fall Scale indicates No Risk (0-24 pts). Assessment: 01:10 General: Appears in no apparent distress. uncomfortable, Behavior is calm, cooperative, rr5 appropriate for age. 01:10 Pain: Complains of pain in frontal Pain does not radiate. Pain currently is 10 out of rr5 10 on a pain scale. Quality of pain is described as aching, Pain began gradually, Is intermittent. Neuro: Level of Consciousness is awake, alert, obeys commands, Oriented to person, place, time, situation, Appropriate for age Reports headache frontal area, that is the "worst ever", photophobia. Cardiovascular: Capillary refill < 3 seconds Patient's skin is warm and dry. Respiratory: Airway is patent Respiratory effort is even, unlabored, Respiratory pattern is regular, symmetrical. GI: Abdomen is round non-distended, Reports lower abdominal pain, upper abdominal pain, bloody stool, epigastric pain. : No signs and/or symptoms were reported regarding the genitourinary system. EENT: No signs and/or symptoms were reported regarding the EENT system. Derm: Skin is intact, is healthy with good turgor, Skin temperature is warm. Musculoskeletal: Circulation, motion, and sensation intact. Capillary refill < 3 seconds. 02:30 Reassessment: Patient appears in no apparent distress at this time. Patient and/or rr5 family updated on plan of care and expected duration. Pain level reassessed. Patient is alert, oriented x 3, equal unlabored respirations, skin warm/dry/pink. awaiting for result. Patient states feeling better. Patient states symptoms have improved. 03:55 Reassessment: Patient appears in no apparent distress at this time. Patient is alert, lp1 oriented x 3, equal unlabored respirations, skin warm/dry/pink. Patient states feeling better. Patient states symptoms have improved. Vital Signs: 01:10 BP 144 / 79; Pulse 111; Resp 19; Temp 98.2; Pulse Ox 96% ; Weight 92.99 kg; Height 5 rr5 ft. 0 in. (152.40 cm); Pain 10/10; 02:06 BP 121 / 81; Pulse 115; Resp 18; Pulse Ox 99% ; rr5 03:10 BP 134 / 86; Pulse 105; Resp 19; Pulse Ox 99% ; Pain 5/10; rr5 01:10 Body Mass Index 40.04 (92.99 kg, 152.40 cm) rr5 ED Course: 00:52 Patient arrived in ED. es 01:01 Willy Orlando, RN is Primary Nurse. rr5 01:06 Skinny Cheney MD is Attending Physician. kdr 01:10 Patient has correct armband on for positive identification. Placed in gown. Bed in low rr5 position. Call light in reach. Pulse ox on. NIBP on. 01:18 Triage completed. rr5 01:21 Arm band placed on right wrist. rr5 01:40 Inserted saline lock: 20 gauge in right antecubital area, using aseptic technique. oe Blood collected. 03:54 No provider procedures requiring assistance completed. IV discontinued, No lp1 redness/swelling at site. Pressure dressing applied. Administered Medications: 02:00 Drug: NS 0.9% 1000 ml Route: IV; Rate: 1 bolus; Site: right antecubital; rr5 03:53 Follow up: IV Status: Completed infusion; IV Intake: 900ml lp1 02:01 Drug: TORadol - Ketorolac 15 mg Route: IVP; Site: right antecubital; rr5 03:54 Follow up: Response: No adverse reaction lp1 02:03 Drug: Benadryl 25 mg Route: IVP; Site: right antecubital; rr5 03:53 Follow up: Response: No adverse reaction lp1 02:05 Drug: Phenergan 12.5 mg Route: IVP; Site: right antecubital; rr5 03:54 Follow up: Response: No adverse reaction lp1 03:45 Drug: Bactrim (160 mg-800 mg (DS) 1 tablet Route: PO; lp1 03:56 Follow up: Response: Medication administered at discharge. lp1 Intake: 03:53 IV: 900ml; Total: 900ml. lp1 Outcome: 03:39 Discharge ordered by . kdr 03:54 Discharged to home ambulatory, with family. lp1 03:54 Condition: good 03:54 Discharge instructions given to patient, family, Instructed on discharge instructions, follow up and referral plans. medication usage, Demonstrated understanding of instructions, follow-up care, medications, Prescriptions given X 2. 03:55 Patient left the ED. lp1 Signatures: Skinny Cheney MD MD kdr Whitney Anthony Laura RN RN lp1 Jp Perez Raymond, RN RN rr5
[2019-07-23] MEDS ORDERED: SMZ./TMP. 800/160 MG TABLET ONE (03:48)
[2019-07-23 04:08] VITALS: TEMP 98.2
[2019-07-23 04:10] VITALS: O2SAT 99
[2019-07-23 04:34] VITALS: BP 134/86
[2019-07-23 04:52] LABS: Blood Morphology Comment NOT SEEN (NOT SEEN); Platelet Estimate ADEQ; Urine White Blood Cell Casts OK
--- NOTE | 2019-07-25 12:18 | RAD REPORT ---
EXAM DESCRIPTION: CT - Abdomen Pelvis W Contrast - 07/23/2019 4:25 am CLINICAL HISTORY: The patient is 23 years old and is Female; RUQ and rectal bleeding;Abd pain TECHNIQUE: Axial computed tomography images of the abdomen and pelvis with intravenous contrast. S agittal and coronal reformatted images were created and reviewed. This CT exam was performed using one or more of the following dose reduction techniques: automated exposure control, adjustment of t he mA and/or kV according to patient size, and/or use of iterative reconstruction technique. COMPARISON: No relevant prior studies available. FINDINGS: LUNG BASES: Unremarkable. No mass. No consolidation. ABDOMEN: LIVER: Unremarkable. No mass. GALLBLADDER AND BILE DUCTS: Surgical clips are present in the right upper quadrant, consistent w ith previous cholecystectomy. PANCREAS: No ductal dilation. No mass. SPLEEN: Unremarkable. ADRENALS: Unremarkable. No mass. KIDNEYS AND URETERS: Unremarkable. The kidneys enhance symmetrically. No obstructing renal or ur eteral calculus is seen. No hydronephrosis or hydroureter. No perinephric fluid or stranding. STOMACH AND BOWEL: The stomach is distended with food contents. The small bowel is normal in devante iber. A moderate amount of stool is present throughout the colon. There is no mucosal thickening or e vidence of bowel obstruction. PELVIS: APPENDIX: No findings to suggest acute appendicitis. BLADDER: Unremarkable. No mass. REPRODUCTIVE: Unremarkable as visualized. ABDOMEN and PELVIS: INTRAPERITONEAL SPACE: Unremarkable. No free air. No significant fluid collection. BONES/JOINTS: No acute fracture. SOFT TISSUES: The soft tissues are normal. VASCULATURE: Unremarkable. No abdominal aortic aneurysm. LYMPH NODES: Unremarkable. No enlarged lymph nodes. IMPRESSION: No acute findings on this contrasted CT of the abdomen and pelvis to explain the patient 's symptoms. Electronically signed by: Rosanne Portillo MD 07/23/2019 3:17 AM SE[facility]TER Due to temporary technical issues with the PACS/Fluency reporting system, reports are being signed by the in house radiologist as a courtesy to ensure prompt reporting. The interpreting radiologist is f ully responsible for the content of the report.
== END 2019-07-23 03:55 | disposition home or self-care (01) ==
LOC: ER 00:30
DX: N39.0 Urinary tract infection, site not specified (principal); R10.2 Pelvic and perineal pain
CPT/HCPCS: 96361; 85025; 80048; 36415; 81025; 80076; 81003; 83690; 74177; 96375; 96374; 99284; Q9967; J2550; J1200; J7030

== ENCOUNTER 2020-02-14 09:37 | Emergency (ER) | payer OTHER ==
[2020-02-14 10:08] LABS: Urine Blood TRACE (NEG); Urine Glucose NEGATIVE (NEG); Urine Protein NEGATIVE (NEG); Urine Specific Gravity 1.025 (1.005-1.030)
[2020-02-14 10:13] LABS: Urine Bacteria >50 /HPF (<20); Urine Culture Reflex Order NOT NEEDED; Urine Mucus LIGHT /HPF (NONE SEEN)
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
--- NOTE | 2020-02-14 10:13 | ER ---
Nurse's Notes [facility] Name: Rosanne Sparks Age: 24 yrs Sex: Female : 1995 Arrival Date: 02/14/2020 Time: 09:41 Bed 19 Private MD: Diagnosis: Urinary tract infection, site not specified;Dermatitis, unspecified-Poison misty Presentation: 02/13 09:51 Chief complaint: Patient states: EMMANUEL ear pain, pain with urination, poison misty to right jl7 forearm. Coronavirus screen: Client denies travel out of the [place] in the last 14 days. At this time, the client does not indicate any symptoms associated with coronavirus-19. Ebola Screen: No symptoms or risks identified at this time. Initial Sepsis Screen: Does the patient meet any 2 criteria? No. Patient's initial sepsis screen is negative. Does the patient have a suspected source of infection? No. Patient's initial sepsis screen is negative. Risk Assessment: Do you want to hurt yourself or someone else? Patient reports no desire to harm self or others. Onset of symptoms is unknown. Transition of care: patient was not received from another setting of care. 09:51 Method Of Arrival: Ambulatory jl7 09:51 Acuity: GARRY 4 jl7 Triage Assessment: 09:53 General: Appears in no apparent distress. uncomfortable, Behavior is calm, cooperative, jl7 appropriate for age. Pain: Complains of pain in right ear and left ear Pain currently is 9 out of 10 on a pain scale. EENT: no drainage noted. Neuro: Level of Consciousness is awake, alert, obeys commands. Cardiovascular: Patient's skin is warm and dry. Respiratory: Airway is patent Respiratory effort is even, unlabored, Respiratory pattern is regular, symmetrical. : Reports pain with urination. Derm: Skin is pink, warm \T\ dry. Rash noted that is on dorsal aspect of right forearm, right wrist and right hand. 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 - Social history:: Smoking status: Patient denies any tobacco usage or history of. - Family history:: not pertinent. - Hospitalizations: : No recent hospitalization is reported. Screenin:55 Abuse screen: Denies threats or abuse. Denies injuries from another. Nutritional jl7 screening: No deficits noted. Tuberculosis screening: No symptoms or risk factors identified. Fall Risk None identified. Assessment: :55 General: See triage assessment. jl7 Vital Signs: 09:51 BP 133 / 91; Pulse 102; Resp 17; Temp 98.3; Pulse Ox 99% ; Weight 91.63 kg; Pain 9/10; jl7 ED Course: 09:41 Patient arrived in ED. ds1 09:42 Emily Sloan RN is Primary Nurse. jl7 09:44 To Ng MD is Attending Physician. rn 09:53 Triage completed. jl7 09:53 Arm band placed on right wrist. jl7 09:55 Patient has correct armband on for positive identification. Bed in low position. Call jl7 light in reach. Side rails up X 1. Pulse ox on. NIBP on. :55 Urine collected: clean catch specimen. jl7 10:23 No provider procedures requiring assistance completed. Patient did not have IV access jl7 during this emergency room visit. Administered Medications: No medications were administered Outcome: 10:13 Discharge ordered by . rn 10:23 Discharged to home ambulatory. jl7 10:23 Condition: stable 10:23 Discharge instructions given to patient, Instructed on discharge instructions, follow up and referral plans. medication usage, Demonstrated understanding of instructions, follow-up care, medications, Prescriptions given X 2. 10:23 Patient left the ED. jl7 Signatures: Nikki Kinsey ds1 To Ng MD MD rn Leal, Jahala, RN RN jl7
[2020-02-14 15:02] VITALS: BP 133/91; TEMP 98.3; O2SAT 99
== END 2020-02-14 10:23 | disposition home or self-care (01) ==
LOC: ER 09:37
DX: N39.0 Urinary tract infection, site not specified (principal); L30.9 Dermatitis, unspecified
CPT/HCPCS: 81003; 81015; 81025; 99283

== ENCOUNTER 2020-05-21 | Emergency (ER) | payer OTHER ==
--- NOTE | 2020-05-21 17:38 | EDPHYS ---
Physician Documentation [facility] Name: Rosanne Sparks Age: 24 yrs Sex: Female : 1995 Arrival Date: 05/21/2020 Time: 15:09 Bed 17 Private MD: ED Physician Quincy Ames HPI: 05/21 17:35 This 24 yrs old Female presents to ER via Ambulatory with complaints of Rash. jmm 17:35 Onset: The symptoms/episode began/occurred gradually, 1 week(s) ago. Associated signs jmm and symptoms: Pertinent positives: itching, Pertinent negatives: fever, swelling of lips, swelling of throat, swelling of tongue, vomiting. The patient has experienced a previous episode. 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 - Social history:: Smoking status: Patient denies any tobacco usage or history of. ROS: 17:35 Constitutional: Negative for fever, chills, and weight loss, Cardiovascular: Negative jmm for chest pain, palpitations, and edema, Respiratory: Negative for shortness of breath, cough, wheezing, and pleuritic chest pain. 17:35 Skin: Positive for rash. 17:35 All other systems are negative. Exam: 17:35 Constitutional: This is a well developed, well nourished patient who is awake, alert, jmm and in no acute distress. Head/Face: atraumatic. Eyes: EOMI, no conjunctival erythema appreciated ENT: Moist Mucus Membranes Neck: Trachea midline, Supple Chest/axilla: Normal chest wall appearance and motion. Cardiovascular: Regular rate and rhythm. No edema appreciated Respiratory: Normal respirations, no respiratory distress appreciated Abdomen/GI: Non distended, soft Back: Normal ROM 17:35 Skin: candidal rash noted to the buttock and perineal region. 17:35 Neuro: Orientation: is normal, Mentation: is normal, Memory: is normal. 17:35 Psych: Behavior/mood is pleasant, cooperative. Vital Signs: 15:28 BP 140 / 86; Pulse 101; Resp 18; Temp 98.7; Pulse Ox 100% ; Weight 92.53 kg; Height 5 em ft. 0 in. (152.40 cm); Pain 0/10; 16:20 BP 120 / 81; Pulse 102; Resp 16 S; Pulse Ox 97% on R/A; ca1 17:41 BP 118 / 76; Pulse 99; Resp 16 S; Pulse Ox 98% on R/A; ca1 15:28 Body Mass Index 39.84 (92.53 kg, 152.40 cm) em MDM: 16:59 Patient medically screened. [facility] 17:35 Data reviewed: vital signs, nurses notes. Counseling: I had a detailed discussion with alexandria the patient and/or guardian regarding: the historical points, exam findings, and any diagnostic results supporting the discharge/admit diagnosis, the need for outpatient follow up, to return to the emergency department if symptoms worsen or persist or if there are any questions or concerns that arise at home. ED course: Patient is alert and non toxic in appearance in the ED. Patient is advised to follow up with pcp and otherwise given strict return precautions. patient understood and agrees with the plan of care. . 05/21 17:12 Order name: Nicolás wade; Complete Time: 17:22 [facility] Administered Medications: No medications were administered Disposition: 05/21/20 17:37 Discharged to Home. Impression: Rash and other nonspecific skin eruption. - Condition is Stable. - Discharge Instructions: Rash. - Prescriptions for nystatin 100,000 unit/gram Topical ointment - apply 1 application by TOPICAL route 3 times per day; 1 tube. Hydroxyzine HCl 25 mg Oral Tablet - take 1 tablet by ORAL route every 6 hours As needed; 30 tablet. - Medication Reconciliation Form, Thank You Letter, Antibiotic Education, Prescription Opioid Use form. - Follow up: Private Physician; When: 2 - 3 days; Reason: Recheck today's complaints, Continuance of care, Re-evaluation by your physician. Addendum: 06/09/2020 12:55 Co-signature as Attending Physician, Quincy Ames MD Available for consultation at p s1 all times. Did not see patient unless otherwise noted. Signature is for administrative purposes and not an endorsement of care. . Signatures: Valdemar Ndiaye PA PA jmm Munoz, Edgar RN RN Quincy Ames MD MD [facility] Trena Antunez RN RN ca1 Corrections: (The following items were deleted from the chart) 05/21 17:42 17:37 05/21/2020 17:37 Discharged to Home. Impression: Rash and other nonspecific skin ca1 eruption. Condition is Stable. Forms are Medication Reconciliation Form, Thank You Letter, Antibiotic Education, Prescription Opioid Use. Follow up: Private Physician; When: 2 - 3 days; Reason: Recheck today's complaints, Continuance of care, Re-evaluation by your physician. alexandria
--- NOTE | 2020-05-21 17:38 | ER ---
Nurse's Notes [facility] Name: Rosanne Sparks Age: 24 yrs Sex: Female : 1995 Arrival Date: 05/21/2020 Time: 15:09 Bed 17 Private MD: Diagnosis: Rash and other nonspecific skin eruption Presentation: 05/21 15:28 Chief complaint: Patient states: rash on bottom and between faby. legs that started 1 em week ago, reports redness and itchy, kept her up all night, denies fever. Coronavirus screen: Client denies travel out of the [place] in the last 14 days. Ebola Screen: Patient negative for fever greater than or equal to 101.5 degrees Fahrenheit, and additional compatible Ebola Virus Disease symptoms Patient denies exposure to infectious person. Patient denies travel to an Ebola-affected area in the 21 days before illness onset. No symptoms or risks identified at this time. Initial Sepsis Screen: Does the patient meet any 2 criteria? HR > 90 bpm. No. Patient's initial sepsis screen is negative. Does the patient have a suspected source of infection? No. Patient's initial sepsis screen is negative. Risk Assessment: Do you want to hurt yourself or someone else? Patient reports no desire to harm self or others. Onset of symptoms was May 14, 2020. 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 - Social history:: Smoking status: Patient denies any tobacco usage or history of. Screenin:20 Abuse screen: Denies threats or abuse. Denies injuries from another. Nutritional ca1 screening: No deficits noted. Tuberculosis screening: No symptoms or risk factors identified. Fall Risk None identified. Assessment: 16:20 General: Appears in no apparent distress. comfortable, Behavior is calm, cooperative. ca1 Pain: Denies pain. Neuro: Level of Consciousness is awake, alert, obeys commands, Oriented to person, place, time, situation. Derm: Skin is intact, is healthy with good turgor, Skin is pink, warm \T\ dry. Rash noted that is red, on groin. Musculoskeletal: Circulation, motion, and sensation intact. Capillary refill < 3 seconds. 17:34 Reassessment: Patient appears in no apparent distress at this time. 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 Vital Signs: 15:28 BP 140 / 86; Pulse 101; Resp 18; Temp 98.7; Pulse Ox 100% ; Weight 92.53 kg; Height 5 em ft. 0 in. (152.40 cm); Pain 0/10; 16:20 BP 120 / 81; Pulse 102; Resp 16 S; Pulse Ox 97% on R/A; ca1 17:41 BP 118 / 76; Pulse 99; Resp 16 S; Pulse Ox 98% on R/A; ca1 15:28 Body Mass Index 39.84 (92.53 kg, 152.40 cm) em ED Course: 15:09 Patient arrived in ED. rg4 15:30 Triage completed. em 15:30 Arm band placed on. em 16:11 Valdemar Ndiaye PA is PHCP. [facility] 16:11 Quincy Ames MD is Attending Physician. [facility] 16:14 Trena Antunez, JOHN is Primary Nurse. ca1 16:20 Patient has correct armband on for positive identification. Placed in gown. Bed in low ca1 position. Call light in reach. Side rails up X 1. Pulse ox on. NIBP on. Warm blanket given. 17:37 No provider procedures requiring assistance completed. Patient did not have IV access iw during this emergency room visit. Administered Medications: No medications were administered Outcome: 17:37 Discharge ordered by . [facility] 17:42 Discharged to home ambulatory. ca1 17:42 Condition: stable 17:42 Discharge instructions given to patient, Instructed on discharge instructions, follow up and referral plans. medication usage, Demonstrated understanding of instructions, follow-up care, medications, Prescriptions given X 2. 17:42 Patient left the ED. ca1 Signatures: Valdemar Ndiaye PA PA jmm Munoz, Edgar, RN RN Cheryl Blount RN RN Mary Ibarra rg4 Trena Antunez RN RN ca1 Corrections: (The following items were deleted from the chart) 17:27 17:26 BP 120 / 81; Pulse 102bpm; Resp 16bpm; Spontaneous; Pulse Ox 97% RA; ca1 ca1
== END 2020-05-21 17:42 | disposition home or self-care (01) ==
CPT/HCPCS: 99283

== ENCOUNTER 2020-06-03 19:19 | Emergency (ER) | payer OTHER ==
[2020-06-03] MEDS ORDERED: METOCLOPRAMIDE 10 MG/2mL INJ ONE (22:27)
[2020-06-03] MEDS ORDERED: DIPHENHYDRAMINE 50 MG/ML VIAL ONE (22:27)
[2020-06-03] MEDS ORDERED: KETOROLAC 30 MG/ML INJ ONE (22:28)
[2020-06-03] MEDS ORDERED: NA CHLORIDE 0.9% 1,000 ML ONE (22:28)
[2020-06-03 22:30] LABS: Absolute Lymphocytes (CBC) 1.6 K/uL (0.7-4.9); Basophils % 0.6 % (0-1.3); Hematocrit 40.3 % (36.0-45.0); RBC Red Blood Cell Count 4.94 M/uL (3.86-4.86)
[2020-06-03 22:48] LABS: ALT/SGPT 32 U/L (12-78); AST/SGOT 11 U/L (15-37); Albumin 3.3 g/dL (3.4-5.0); Alkaline Phosphatase 213 U/L (45-117); BUN Blood Urea Nitrogen 7 mg/dL (7-18); Bicarbonate 26 mmol/L (21-32); Bilirubin Direct < 0.1 mg/dL (0-0.2); Bilirubin Total 0.2 mg/dL (0.2-1.0); Glucose Level 173 mg/dL (74-106); Lipase 63 U/L (73-393); Potassium 3.6 mmol/L (3.5-5.1); Protein, Total 8.3 g/dL (6.4-8.2); Sodium Level 142 mmol/L (136-145)
[2020-06-03 22:58] LABS: Urine Blood 2+ (NEG); Urine Glucose TRACE (NEG); Urine Protein NEGATIVE (NEG)
--- NOTE | 2020-06-04 00:17 | EDPHYS ---
Physician Documentation [facility] Name: Rosanne Sparks Age: 24 yrs Sex: Female : 1995 Arrival Date: 06/03/2020 Time: 19:22 Bed 3 Private MD: ED Physician Tom Baird HPI: 06/03 22:10 This 24 yrs old Female presents to ER via Ambulatory with complaints of cp Headache, Abdominal Pain, Ear Pain. 22:10 The patient complains of pain to the right ear and right spiritism and right side of head. cp The patient describes the headache as aching. Onset: The symptoms/episode began/occurred last night. Associated signs and symptoms: Pertinent positives: lower abdomen pain, Pertinent negatives: fever, neck stiffness. Headache History: The patient has had previous headaches and this one is similar to previous episodes. 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 - Social history:: Smoking status: Patient denies any tobacco usage or history of. ROS: 22:15 Constitutional: Negative for body aches, chills, fever, poor PO intake. cp 22:15 Eyes: Negative for injury, pain, redness, and discharge. cp 22:15 ENT: Positive for ear pain, Negative for drainage from ear(s), sore throat, difficulty swallowing, difficulty handling secretions. 22:15 Neck: Negative for pain with movement, pain at rest, stiffness. 22:15 Cardiovascular: Negative for chest pain. 22:15 Respiratory: Negative for cough, shortness of breath, wheezing. 22:15 Abdomen/GI: Positive for abdominal pain, of the right lower quadrant, Negative for nausea, vomiting, and diarrhea. 22:15 Back: Negative for radiated pain. 22:15 : Negative for urinary symptoms, vaginal bleeding, vaginal discharge. 22:15 Neuro: Positive for headache, Negative for altered mental status, weakness. 22:15 All other systems are negative. Exam: 22:20 Constitutional: The patient appears in no acute distress, alert, awake, non-toxic, well cp developed, well nourished, obese. 22:20 Head/Face: Normocephalic, atraumatic. cp 22:20 Eyes: Periorbital structures: appear normal, Pupils: equal, round, and reactive to light and accomodation, Extraocular movements: intact throughout, Conjunctiva: normal, no exudate, no injection, Sclera: no appreciated abnormality, Lids and lashes: appear normal, bilaterally. 22:20 ENT: External ear(s): pain with movement, that is mild, of the pinna of right ear, Ear canal(s): swelling, that is minimal, of the right canal, TM's: dullness, bilaterally, Nose: is normal, Mouth: Lips: moist, Oral mucosa: moist, Posterior pharynx: Airway: no evidence of obstruction, patent. 22:20 Neck: ROM/movement: is normal, is supple, without pain, no range of motions limitations, no meningismus, Lymph nodes: no appreciated lymphadenopathy. 22:20 Chest/axilla: Inspection: normal, Palpation: is normal, no crepitus, no tenderness. 22:20 Cardiovascular: Rate: tachycardic, Rhythm: regular. 22:20 Respiratory: the patient does not display signs of respiratory distress, Respirations: normal, no use of accessory muscles, no retractions, labored breathing, is not present, Breath sounds: are clear throughout, no decreased breath sounds. 22:20 Abdomen/GI: Inspection: abdomen appears normal, Bowel sounds: active, all quadrants, Palpation: soft, in all quadrants, mild abdominal tenderness, in the right lower quadrant, rebound tenderness, is not appreciated, involuntary guarding, is not appreciated. 22:20 Back: CVA tenderness, is absent. 22:20 Neuro: Orientation: to person, place \T\ time. Mentation: is normal, Cerebellar function: is grossly normal, Motor: moves all fours, strength is normal, Sensation: is normal, Gait: is steady, at a normal pace, without difficulty. Vital Signs: 20:36 BP 136 / 98; Pulse 126; Resp 17 S; Temp 99.1(TE); Pulse Ox 98% on R/A; Weight 93.44 kg ca1 (R); Height 5 ft. 0 in. (152.40 cm) (R); Pain 10/10; 23:53 BP 118 / 64; Pulse 106; Resp 18; Pulse Ox 98% on R/A; ea 06/04 00:15 BP 103 / 66; Pulse 98; Resp 18; Temp 98.8; Pulse Ox 98% ; ea 06/03 20:36 Body Mass Index 40.23 (93.44 kg, 152.40 cm) ca1 MDM: 06/03 21:58 Patient medically screened. 06/04 00:15 Data reviewed: vital signs, nurses notes, lab test result(s), radiologic studies, CT cp scan. 00:15 Differential diagnosis: meningitis, meningoencephalitis, migraine, sinusitis, cp subarachnoid bleed. Counseling: I had a detailed discussion with the patient and/or guardian regarding: the historical points, exam findings, and any diagnostic results supporting the discharge/admit diagnosis, lab results, radiology results, to return to the emergency department if symptoms worsen or persist or if there are any questions or concerns that arise at home. Response to treatment: the patient's symptoms have markedly improved after treatment, VSS. Headache and abdominal pain improved. Will discharge to home for continued monitoring. 06/03 22:04 Order name: Basic Metabolic Panel; Complete Time: 23:21 06/03 23:21 Interpretation: Normal except: CL 110; GLUC 173; GFR 88. 06/03 22:04 Order name: CBC with Diff; Complete Time: 23:21 06/03 23:23 Interpretation: Normal except: WBC 14.9; RBC 4.94; MCH 26.8; SANTIAGO% 83.6; LYM% 11.0; NEUT cp A 12.4. 06/03 22:04 Order name: Hepatic Function; Complete Time: 23:21 06/03 23:24 Interpretation: Normal except: AST 11; ALK 213; TP 8.3; ALB 3.3; GLOB 5.0; A/G 0.7. 06/03 22:04 Order name: Lipase; Complete Time: 23:21 06/03 22:30 Order name: Urine --Ancillary (enter results); Complete Time: 23:21 tt3 06/03 22:30 Order name: Urine Dipstick--Ancillary (enter results); Complete Time: 23:21 tt3 06/03 22:04 Order name: IV Saline Lock; Complete Time: 23:05 06/03 22:04 Order name: Labs collected and sent; Complete Time: 23:05 cp 06/03 22:07 Order name: CT Abd/Pelvis - IV Contrast Only cp 06/03 22:41 Order name: Glucose, Ancillary Testing; Complete Time: 23:21 EDMS 06/03 22:04 Order name: Accucheck Blood Glucose; Complete Time: 22:32 cp 06/03 22:04 Order name: Urine Test (obtain specimen); Complete Time: 22:32 cp 06/03 22:04 Order name: Urine Dipstick-Ancillary (obtain specimen); Complete Time: 22:32 cp Administered Medications: 06/03 22:32 Drug: NS 0.9% 1000 ml Route: IV; Rate: 1 bolus; Site: right antecubital; ea 06/04 00:00 Follow up: Response: No adverse reaction; IV Status: Completed infusion; IV Intake: ea 1000ml 06/03 22:32 Drug: Reglan 10 mg Route: IVP; Site: right antecubital; ea 23:00 Follow up: Response: No adverse reaction : Drug: Benadryl 25 mg Route: IVP; Site: right antecubital; ea 23:00 Follow up: Response: No adverse reaction ea : Drug: TORadol - Ketorolac 15 mg Route: IVP; Site: right antecubital; ea 23:00 Follow up: Response: No adverse reaction ea Disposition: 06/04/20 00:16 Discharged to Home. Impression: Headache, Otitis externa in other diseases classified elsewhere, right ear, Lower abdominal pain, unspecified. - Condition is Stable. - Discharge Instructions: Abdominal Pain, Adult, Otitis Externa, General Headache Without Cause. - Prescriptions for Bentyl 20 mg Oral Tablet - take 1 tablet by ORAL route every 6 hours As needed; 20 tablet. Cortisporin- TC 3.3-3-10-0.5 mg/mL Otic Suspension - instill 4 drop by OTIC route every 6 hours; 1 bottle. Zofran 4 mg Oral Tablet - take 1 tablet by ORAL route every 12 hours As needed; 20 tablet. - Medication Reconciliation Form, Thank You Letter, Antibiotic Education, Prescription Opioid Use form. - Follow up: Private Physician; When: 1 - 2 days; Reason: Worsening of condition. - Problem is new. - Symptoms have improved. Addendum: 06/10/2020 07:38 Co-signature as Attending Physician, Tom Baird MD I agree with the assessment and t w4 plan of care. Signatures: Dispatcher [employer] EDMS Jeff Lara PA PA cp Antunez, Elena, RN RN Tom Mcmahan MD MD tw4 Trena Antunez RN RN ca1 Corrections: (The following items were deleted from the chart) 06/04 00:26 00:16 06/04/2020 00:16 Discharged to Home. Impression: Headache; Otitis externa in ea other diseases classified elsewhere, right ear; Lower abdominal pain, unspecified. Condition is Stable. Forms are Medication Reconciliation Form, Thank You Letter, Antibiotic Education, Prescription Opioid Use. Follow up: Private Physician; When: 1 - 2 days; Reason: Worsening of condition. Problem is new. Symptoms have improved. cp
--- NOTE | 2020-06-04 00:17 | ER ---
Nurse's Notes [facility] Name: Rosanne Sparks Age: 24 yrs Sex: Female : 1995 Arrival Date: 06/03/2020 Time: 19:22 Bed 3 Private MD: Diagnosis: Headache;Otitis externa in other diseases classified elsewhere, right ear;Lower abdominal pain, unspecified Presentation: 06/03 20:36 Chief complaint: Patient states: R ear pain, headache and stomach pain started last ca1 night. Denies fever. Denies N'/V/D. Coronavirus screen: Client denies travel out of the [place] in the last 14 days. headache, Client presents with at least one sign or symptom that may indicate coronavirus-19. Standard/surgical mask placed on the client. Provider contacted for isolation considerations. Ebola Screen: Patient negative for fever greater than or equal to 101.5 degrees Fahrenheit, and additional compatible Ebola Virus Disease symptoms Patient denies exposure to infectious person. Patient denies travel to an Ebola-affected area in the 21 days before illness onset. No symptoms or risks identified at this time. Initial Sepsis Screen: Does the patient meet any 2 criteria? No. Patient's initial sepsis screen is negative. Does the patient have a suspected source of infection? No. Patient's initial sepsis screen is negative. Risk Assessment: Do you want to hurt yourself or someone else? Patient reports no desire to harm self or others. Onset of symptoms was June 03, 2020. 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 - Social history:: Smoking status: Patient denies any tobacco usage or history of. Screenin:49 Abuse screen: Denies threats or abuse. Nutritional screening: No deficits noted. ea Tuberculosis screening: No symptoms or risk factors identified. Fall Risk IV access (20 points). Assessment: 22:00 General: Appears in no apparent distress. Behavior is appropriate for age. Pain: ea Complains of pain in headache. Neuro: Level of Consciousness is awake, alert, obeys commands, Oriented to person, place, time, situation. Cardiovascular: Patient's skin is warm and dry. Respiratory: Airway is patent Respiratory effort is even, unlabored, Respiratory pattern is regular, symmetrical. Derm: Skin is pink, warm \T\ dry. 23:30 Reassessment: Patient and/or family updated on plan of care and expected duration. Pain ea level reassessed. Patient is alert, oriented x 3, equal unlabored respirations, skin warm/dry/pink. 06/04 00:22 Reassessment: Patient and/or family updated on plan of care and expected duration. Pain ea level reassessed. Patient is alert, oriented x 3, equal unlabored respirations, skin warm/dry/pink. Pt reports she is feeling better. Discharge instruction given to patient, verbalized the understanding of instruction. Pt left ED ambulatory tolerating well. Vital Signs: 06/03 20:36 BP 136 / 98; Pulse 126; Resp 17 S; Temp 99.1(TE); Pulse Ox 98% on R/A; Weight 93.44 kg ca1 (R); Height 5 ft. 0 in. (152.40 cm) (R); Pain 10/10; 23:53 BP 118 / 64; Pulse 106; Resp 18; Pulse Ox 98% on R/A; ea 06/04 00:15 BP 103 / 66; Pulse 98; Resp 18; Temp 98.8; Pulse Ox 98% ; ea 06/03 20:36 Body Mass Index 40.23 (93.44 kg, 152.40 cm) ca1 ED Course: 06/03 19:22 Patient arrived in ED. am2 20:37 Triage completed. ca1 20:38 Arm band placed on right wrist. ca1 21:42 Jeff Lara PA is PHCP. cp 21:42 Tom Baird MD is Attending Physician. cp 21:46 Becky Strong RN is Primary Nurse. ea 22:00 Patient has correct armband on for positive identification. Placed in gown. Bed in low ea position. Call light in reach. Side rails up X2. director market intelligence on. Pulse ox on. NIBP on. 22:15 Inserted saline lock: 20 gauge in right antecubital area, using aseptic technique. ea 23:46 CT Abd/Pelvis - IV Contrast Only In Process Unspecified. EDMS 06/04 00:20 IV discontinued, intact, bleeding controlled, No redness/swelling at site. Pressure ea dressing applied. 00:23 No provider procedures requiring assistance completed. ea Administered Medications: 06/03 22:32 Drug: NS 0.9% 1000 ml Route: IV; Rate: 1 bolus; Site: right antecubital; ea 06/04 00:00 Follow up: Response: No adverse reaction; IV Status: Completed infusion; IV Intake: ea 1000ml 06/03 22:32 Drug: Reglan 10 mg Route: IVP; Site: right antecubital; ea 23:00 Follow up: Response: No adverse reaction ea 22:32 Drug: Benadryl 25 mg Route: IVP; Site: right antecubital; ea 23:00 Follow up: Response: No adverse reaction ea :32 Drug: TORadol - Ketorolac 15 mg Route: IVP; Site: right antecubital; ea 23:00 Follow up: Response: No adverse reaction ea Intake: 06/04 00:00 IV: 1000ml; Total: 1000ml. ea Outcome: 00:16 Discharge ordered by . nehal 00:23 Discharged to home ambulatory, with family. ea 00:23 Condition: stable 00:23 Discharge instructions given to patient, Instructed on discharge instructions, follow up and referral plans. medication usage, Demonstrated understanding of instructions, follow-up care, medications, Prescriptions given X 3. 00:26 Patient left the ED. ea Signatures: Dispatcher [employer] EDPR Jeff Lara PA PA cp Moreno, Amanda am2 Becky Strong RN RN Trena Hutson RN RN ca1
[2020-06-04 00:56] VITALS: O2SAT 98
[2020-06-04 00:58] VITALS: BP 103/66; TEMP 98.8
--- NOTE | 2020-06-04 11:35 | RAD REPORT ---
EXAM DESCRIPTION: Abdomen Pelvis W Contrast CLINICAL HISTORY: The patient is 24 years old and is Female; RLQ abdomen pain TECHNIQUE: Axial computed tomography images of the abdomen and pelvis with intravenous contrast. S agittal and coronal reformatted images were created and reviewed. This CT exam was performed using one or more of the following dose reduction techniques: automated exposure control, adjustment of t he mA and/or kV according to patient size, and/or use of iterative reconstruction technique. Delayed images were performed. DLP: 2445 mGy*cm COMPARISON: None. FINDINGS: LUNG BASES: Lung bases are clear. HEART: Visualized heart is normal. ABDOMEN: LIVER: Hepatic steatosis. GALLBLADDER AND BILE DUCTS: Prior cholecystectomy. No ductal dilation. PANCREAS: Unremarkable. No mass. No ductal dilation. SPLEEN: Unremarkable. No splenomegaly. ADRENALS: Unremarkable. No mass. KIDNEYS AND URETERS: Unremarkable. No solid mass. No hydronephrosis. STOMACH AND BOWEL: Unremarkable. No obstruction. No mucosal thickening. PELVIS: APPENDIX: The appendix is seen and is within normal limits. BLADDER: Unremarkable. No mass. REPRODUCTIVE: Unremarkable as visualized. ABDOMEN and PELVIS: INTRAPERITONEAL SPACE: Unremarkable. No free air. No significant fluid collection. BONES/JOINTS: No acute fracture. No dislocation. SOFT TISSUES: Small fat-containing lumbrical hernia. VASCULATURE: Unremarkable. No abdominal aortic aneurysm. LYMPH NODES: Unremarkable. No enlarged lymph nodes. IMPRESSION: 1. No acute abdominal or pelvic abnormality. Normal-appearing appendix. 2. Hepatic steatosis. Electronically signed by: Chance Nuñez DO 06/03/2020 11:57 PM COUNTING MACHINE OPERATOR Due to temporary technical issues with the PACS/Fluency reporting system, reports are being signed by the in house radiologist without review as a courtesy to ensure prompt reporting. The interpreting r adiologist is fully responsible for the content of the report.
== END 2020-06-04 00:26 | disposition home or self-care (01) ==
LOC: ER 19:19
DX: H60.91 Unspecified otitis externa, right ear (principal); R10.31 Right lower quadrant pain
CPT/HCPCS: 96361; 85025; 80048; 36415; 81025; 82947; 80076; 81003; 83690; 74177; 96375; 96374; 99284; Q9967; J2765; J1200; J7030

== ENCOUNTER 2020-09-22 18:50 | Emergency (ER) | payer OTHER ==
--- NOTE | 2020-09-22 20:22 | ER ---
Nurse's Notes [facility] Name: Rosanne Sparks Age: 24 yrs Sex: Female : 1995 Arrival Date: 09/22/2020 Time: 19:01 Bed 13 Private MD: Diagnosis: Candidiasis of skin and nail Presentation: 09/22 19:45 Chief complaint: Patient states: Rash on L inner thigh since last night, been ca1 scratching it a lot. Coronavirus screen: Client denies travel out of the [place] in the last 14 days. At this time, the client does not indicate any symptoms associated with coronavirus-19. Ebola Screen: Patient negative for fever greater than or equal to 101.5 degrees Fahrenheit, and additional compatible Ebola Virus Disease symptoms Patient denies exposure to infectious person. Patient denies travel to an Ebola-affected area in the 21 days before illness onset. No symptoms or risks identified at this time. Initial Sepsis Screen: Does the patient meet any 2 criteria? No. Patient's initial sepsis screen is negative. Does the patient have a suspected source of infection? No. Patient's initial sepsis screen is negative. Risk Assessment: Do you want to hurt yourself or someone else? Patient reports no desire to harm self or others. Onset of symptoms was September 22, 2020. 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 - Social history:: Smoking status: Patient denies any tobacco usage or history of. Screenin:15 Abuse screen: Denies threats or abuse. Denies injuries from another. Nutritional rr5 screening: No deficits noted. Tuberculosis screening: No symptoms or risk factors identified. Fall Risk None identified. Assessment: 20:15 General: Appears in no apparent distress. comfortable, Behavior is calm, cooperative, rr5 appropriate for age. 20:15 Pain: Complains of pain in pelvis. Neuro: Level of Consciousness is awake, alert, obeys rr5 commands, Oriented to person, place, time. Cardiovascular: Capillary refill < 3 seconds Patient's skin is warm and dry. Respiratory: Airway is patent Respiratory effort is even, unlabored, Respiratory pattern is regular, symmetrical, GI: No signs and/or symptoms were reported involving the gastrointestinal system. : No signs and/or symptoms were reported regarding the genitourinary system. EENT: No signs and/or symptoms were reported regarding the EENT system. Derm: Skin temperature is warm Reports rashes left groin area. Musculoskeletal: No signs and/or symptoms reported regarding the musculoskeletal system. 20:25 Reassessment: Patient appears in no apparent distress at this time. Patient is alert, rr5 oriented x 3, equal unlabored respirations, skin warm/dry/pink. discharge instruction given and explained without complaints made. Vital Signs: 19:45 BP 108 / 64; Pulse 110; Resp 16; Temp 97.6; Pulse Ox 99% on R/A; Weight 97.98 kg (R); ca1 Height 5 ft. 0 in. (152.40 cm) (R); Pain 9/10; 19:45 Body Mass Index 42.19 (97.98 kg, 152.40 cm) ca1 ED Course: 19:01 Patient arrived in ED. am2 19:46 Triage completed. ca1 19:47 Arm band placed on right wrist. ca1 20:03 [facility] kb 20:03 Leandro Loomis MD is Attending Physician. kb 20:15 Willy Orlando, JOHN is Primary Nurse. rr5 20:15 Patient has correct armband on for positive identification. rr5 20:15 No provider procedures requiring assistance completed. Patient did not have IV access rr5 during this emergency room visit. Administered Medications: No medications were administered Outcome: 20:21 Discharge ordered by . kb 20:29 Discharged to home ambulatory. rr5 20:29 Condition: stable 20:29 Discharge instructions given to patient, Instructed on discharge instructions, follow rr5 up and referral plans. medication usage, Demonstrated understanding of instructions, follow-up care, medications, Prescriptions given X 1. 20:30 Patient left the ED. rr5 Signatures: Julia Coker FNP-C [employer] Celina Hernandez am2 Willy Orlando RN RN rr5 Trena Antunez RN RN ca1 Corrections: (The following items were deleted from the chart) 19:47 19:45 Pulse 110bpm; Resp 16bpm; Pulse Ox 99% RA; Temp 97.6F; 97.98 kg Reported; Height ca1 5 ft. 0 in. Reported; BMI: 42.1; Pain 9/10; ca1
--- NOTE | 2020-09-22 20:22 | EDPHYS ---
Physician Documentation [facility] Name: Rosanne Sparks Age: 24 yrs Sex: Female : 1995 Arrival Date: 09/22/2020 Time: 19:01 Bed 13 Private MD: ED Physician Leandro Loomis HPI: 09/22 20:26 This 24 yrs old Female presents to ER via Ambulatory with complaints of Rash, kb Allergic Reaction. 20:26 The patient's rash thought to be caused by an unknown cause. The rash is located on the kb pelvis. The rash can be described as erythematous. Associated signs and symptoms: Pertinent positives: itching. Severity of symptoms: At their worst the symptoms were mild moderate in the emergency department the symptoms are unchanged. The patient has experienced similar episodes in the past, a few times. The patient has not recently seen a physician. 20:27 Onset: The symptoms/episode began/occurred yesterday. 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 - Social history:: Smoking status: Patient denies any tobacco usage or history of. ROS: 20:24 Constitutional: Negative for fever, chills, and weight loss, Respiratory: Negative for kb shortness of breath, cough, wheezing, and pleuritic chest pain, MS/Extremity: Negative for injury and deformity, Neuro: Negative for headache, weakness, numbness, tingling, and seizure. 20:24 Skin: Positive for rash, of the pelvis. Exam: 20:25 Constitutional: This is a well developed, well nourished patient who is awake, alert, kb and in no acute distress. Head/Face: Normocephalic, atraumatic. Respiratory: Respirations even and unlabored. No increased work of breathing, no retractions or nasal flaring. MS/ Extremity: Pulses equal, no cyanosis. Neurovascular intact. Full, normal range of motion. Neuro: Awake and alert, GCS 15, oriented to person, place, time, and situation. Moves all extremities. Normal gait. 20:25 Skin: rash a mild rash is noted, consistent with candidiasis, on the pelvis. Vital Signs: 19:45 BP 108 / 64; Pulse 110; Resp 16; Temp 97.6; Pulse Ox 99% on R/A; Weight 97.98 kg (R); ca1 Height 5 ft. 0 in. (152.40 cm) (R); Pain 9/10; 19:45 Body Mass Index 42.19 (97.98 kg, 152.40 cm) ca1 MDM: 20:17 Patient medically screened. kb 20:21 Data reviewed: vital signs, nurses notes. Data interpreted: Pulse oximetry: on room air kb is 99 %. Interpretation: normal. Counseling: I had a detailed discussion with the patient and/or guardian regarding: the historical points, exam findings, and any diagnostic results supporting the discharge/admit diagnosis, the need for outpatient follow up, a family practitioner, to return to the emergency department if symptoms worsen or persist or if there are any questions or concerns that arise at home. Administered Medications: No medications were administered Disposition: 09/23 04:25 Co-signature as Attending Physician, Leandro Loomis MD. mh7 Disposition: 09/22/20 20:21 Discharged to Home. Impression: Candidiasis of skin and nail. - Condition is Stable. - Discharge Instructions: Skin Yeast Infection. - Prescriptions for nystatin 100,000 unit/gram Topical ointment - apply 1 application by TOPICAL route 2 times per day; 1 tube. - Medication Reconciliation Form, Thank You Letter, Antibiotic Education, Prescription Opioid Use form. - Follow up: Emergency Department; When: As needed; Reason: Worsening of condition. Follow up: Private Physician; When: 2 - 3 days; Reason: Recheck today's complaints, Continuance of care, Re-evaluation by your physician. Signatures: Julia Coker, BOILER OPERATOR HELPER-C GRACIELA-Willy Chappell RN RN rr5 Trena Antunez RN RN ca1 Leandro Loomis MD MD mh7 Corrections: (The following items were deleted from the chart) 09/22 20:30 20:21 09/22/2020 20:21 Discharged to Home. Impression: Candidiasis of skin and nail. rr5 Condition is Stable. Forms are Medication Reconciliation Form, Thank You Letter, Antibiotic Education, Prescription Opioid Use. Follow up: Emergency Department; When: As needed; Reason: Worsening of condition. Follow up: Private Physician; When: 2 - 3 days; Reason: Recheck today's complaints, Continuance of care, Re-evaluation by your physician. kb
[2020-09-22 21:02] VITALS: BP 108/64; TEMP 97.6; O2SAT 99
== END 2020-09-22 20:30 | disposition home or self-care (01) ==
LOC: ER 18:50
DX: B37.2 Candidiasis of skin and nail (principal); E11.9 Type 2 diabetes mellitus without complications; Z79.4 Long term (current) use of insulin
CPT/HCPCS: 99282

== ENCOUNTER 2020-11-30 18:52 | Emergency (ER) | payer OTHER ==
--- OUTSIDE RECORDS SUMMARY | 2020-11-30 18:55 | XMS REPORT | Continuity of Care Document ---
:1995 Author Organization [facility] t Address 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 Allergies, Adverse Reactions, Alerts This patient has no known allergies or adverse reactions. Medications This patient has no known medications. Procedures This patient has no known procedures. Encounters Start End Encounter Admission Attending Care Care Encounter Source Date/Time Date/Time Type Type Clinicians Facility Department ID 2020-10-26 2020-10-26 [facility] [id number] 09:45:00 23:59:00 Encounter Dorita Haro [id number] [place] [id number] [place] [id number] 2020-10-26 2020-10-26 Urgent Provider, [facility] [id number] 08:47:17 09:07:17 Care [facility] [id number] Care [place] [id number] [place] [phone] [place] [address] 2020-10-26 2020-10-26 Telephone Provider, [facility] [id number] 00:00:00 00:00:00 [facility] [id number] Care [place] [id number] Professalexandra [phone] nal 0[address] 2020-10-26 2020-10-26 Orders Doctor UJNITO [id number] 00:00:00 00:00:00 Only Unassigned, [facility] [id number] [place] [id number] 2020-10-17 2020-10-17 Telephone Provider, JOAN [id number] 00:00:00 00:00:00 [facility] [id number] Care [place] [id number] [facility] [phone] nal 0[address] 2020-10-16 2020-10-16 Urgent Provider, JOAN [id number] 09:22:16 10:22:39 [facility] [id number] Care [place] [id number] [facility] [phone] [place] [address] [address] Results This patient has no known results.
--- NOTE | 2020-11-30 20:29 | RAD REPORT ---
EXAM DESCRIPTION: RAD - Ankle Left 3 View - 11/30/2020 8:20 pm CLINICAL HISTORY: PAIN COMPARISON: No comparisons FINDINGS: No acute fracture or dislocation seen. A screw is present in the proximal fifth metatarsal . Small plantar calcaneal spur.
--- NOTE | 2020-11-30 20:31 | RAD REPORT ---
EXAM DESCRIPTION: RAD - Foot Left 3 View - 11/30/2020 8:20 pm CLINICAL HISTORY: PAIN COMPARISON: Foot Left 2 View dated 07/01/2016; Foot Left 3 View dated 03/28/2016 FINDINGS: A screw is present in the base of the fifth metatarsal. A small plantar calcaneal spur is present. No acute fracture or dislocation.
--- NOTE | 2020-11-30 22:06 | ER ---
Nurse's Notes [facility] Name: Rosanne Sparks Age: 25 yrs Sex: Female : 1995 Arrival Date: 11/30/2020 Time: 18:55 Bed 28 Private MD: ATILIO SCHAEFER Diagnosis: Other sprain of foot Presentation: 11/30 19:17 Chief complaint: Patient states: tripped and fell, twisted L ankle and hurt L foot ca1 around 1600 today. Coronavirus screen: Client denies travel out of the [place] in the last 14 days. At this time, the client does not indicate any symptoms associated with coronavirus-19. Ebola Screen: Patient negative for fever greater than or equal to 101.5 degrees Fahrenheit, and additional compatible Ebola Virus Disease symptoms Patient denies exposure to infectious person. Patient denies travel to an Ebola-affected area in the 21 days before illness onset. No symptoms or risks identified at this time. Initial Sepsis Screen: Does the patient meet any 2 criteria? No. Patient's initial sepsis screen is negative. Does the patient have a suspected source of infection? No. Patient's initial sepsis screen is negative. Risk Assessment: Do you want to hurt yourself or someone else? Patient reports no desire to harm self or others. Onset of symptoms was November 30, 2020. 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 - Social history:: Smoking status: Patient denies any tobacco usage or history of. Screenin:21 Abuse screen: Denies threats or abuse. Nutritional screening: No deficits noted. em Tuberculosis screening: No symptoms or risk factors identified. Fall Risk None identified. Assessment: 21:28 General: Appears in no apparent distress. comfortable, Behavior is calm, cooperative, em appropriate for age. Pain: Complains of pain in left foot Pain currently is 10 out of 10 on a pain scale. Aggravated by weight bearing. Neuro: Level of Consciousness is awake, alert, obeys commands, Oriented to person, place, time, situation, Appropriate for age. Cardiovascular: Capillary refill < 3 seconds Patient's skin is warm and dry. Respiratory: Airway is patent Respiratory effort is even, unlabored, Respiratory pattern is regular, symmetrical. Derm: Skin is intact, is healthy with good turgor, Skin is pink, warm \T\ dry. Musculoskeletal: Circulation, motion, and sensation intact. Capillary refill < 3 seconds, Range of motion: limited in left ankle Swelling present in left foot. Vital Signs: 19:17 BP 109 / 79; Pulse 110; Resp 18 S; Temp 97.2(TE); Pulse Ox 98% on R/A; Weight 97.98 kg ca1 (R); Height 5 ft. 0 in. (152.40 cm) (R); Pain 10/10; 21:24 BP 110 / 76; Pulse 116; Resp 16; Temp 98.9(O); Pulse Ox 96% on R/A; mh5 19:17 Body Mass Index 42.18 (97.98 kg, 152.40 cm) ca1 ED Course: 18:55 Patient arrived in ED. am2 18:55 ATILIO SCHAEFER is Private Physician. am2 19:19 Triage completed. ca1 19:19 Arm band placed on right wrist. ca1 20:20 Ankle Left 3 View XRAY In Process Unspecified. EDMS 20:20 Foot Left 3 View XRAY In Process Unspecified. EDMS 21:07 Valdemar Ndiaye PA is PHCP. jmm 21:07 Leandro Loomis MD is Attending Physician. jm 21:07 Rocael Kay, JOHN is Primary Nurse. em 21:21 Patient has correct armband on for positive identification. em 21:25 Warm blanket given. Pulse ox on. NIBP on. mh5 22:11 Shukri wrap to left ankle. mh5 22:18 No provider procedures requiring assistance completed. Patient did not have IV access em during this emergency room visit. 22:26 Ortho shoe applied to left foot. mh5 Administered Medications: No medications were administered Outcome: 22:05 Discharge ordered by . m 22:18 Discharged to home via wheelchair. em 22:18 Condition: good 22:18 Discharge instructions given to patient, Instructed on discharge instructions, follow up and referral plans. Demonstrated understanding of instructions, follow-up care. 22:27 Patient left the ED. [facility] Signatures: Dispatcher [employer] Valdemar Calvillo PA PA jmm Munoz, Edgar, RN RN Diane Gerard [facility] Celina Hernandez am Trena Antunez RN RN ca1
--- NOTE | 2020-11-30 22:06 | EDPHYS ---
Physician Documentation [facility] Name: Rosanne Sparks Age: 25 yrs Sex: Female : 1995 Arrival Date: 11/30/2020 Time: 18:55 Bed 28 Private MD: ATILIO SCHAEFER ED Physician Leandro Loomis HPI: 11/30 22:00 This 25 yrs old Female presents to ER via Wheelchair with complaints of Foot jmm Injury, Fall Injury. 22:00 The patient presents with pain, that is acute. Onset: The symptoms/episode jmm began/occurred acutely, just prior to arrival. Modifying factors: The symptoms are alleviated by remaining still, the symptoms are aggravated by movement, weight bearing. Associated signs and symptoms: Pertinent negatives calf tenderness, fever, swelling, tingling, warmth, weakness. This is a 25 year old female with no chronic medical conditions that presents to the ED with complaints of left foot pain. patient states she felt a pop when stepping down a step. Denies other injury. . 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 - Social history:: Smoking status: Patient denies any tobacco usage or history of. ROS: 22:00 Constitutional: Negative for fever, chills, and weight loss, Cardiovascular: Negative jmm for chest pain, palpitations, and edema, Respiratory: Negative for shortness of breath, cough, wheezing, and pleuritic chest pain. 22:00 MS/extremity: Positive for injury or acute deformity. 22:00 All other systems are negative. Exam: 22:00 Constitutional: This is a well developed, well nourished patient who is awake, alert, jmm and in no acute distress. Head/Face: atraumatic. Eyes: EOMI, no conjunctival erythema appreciated ENT: Moist Mucus Membranes Neck: Trachea midline, Supple Chest/axilla: Normal chest wall appearance and motion. Cardiovascular: Regular rate and rhythm. No edema appreciated Respiratory: Normal respirations, no respiratory distress appreciated Abdomen/GI: Non distended, soft Back: Normal ROM Skin: General appearance color normal 22:00 Musculoskeletal/extremity: ROM: intact in all extremities, left dorsal foot pain on palpation, compartments are soft, full dorsalis pulse, NVI. 22:00 Skin: Appearance: Color: normal in color. 22:00 Neuro: Orientation: is normal, Mentation: is normal, Memory: is normal. 22:00 Psych: Behavior/mood is pleasant, cooperative. Vital Signs: 19:17 BP 109 / 79; Pulse 110; Resp 18 S; Temp 97.2(TE); Pulse Ox 98% on R/A; Weight 97.98 kg ca1 (R); Height 5 ft. 0 in. (152.40 cm) (R); Pain 10/10; 21:24 BP 110 / 76; Pulse 116; Resp 16; Temp 98.9(O); Pulse Ox 96% on R/A; mh5 19:17 Body Mass Index 42.18 (97.98 kg, 152.40 cm) ca1 MDM: 21:58 Patient medically screened. [facility] 22:03 Data reviewed: vital signs, nurses notes. Counseling: I had a detailed discussion with alexandria the patient and/or guardian regarding: the historical points, exam findings, and any diagnostic results supporting the discharge/admit diagnosis, radiology results, the need for outpatient follow up, to return to the emergency department if symptoms worsen or persist or if there are any questions or concerns that arise at home. ED course: Patient is advised to follow up with pcp and otherwise given strict return precautions. patient understood and agrees with the plan of care. . 11/30 19:20 Order name: Ankle Left 3 View XRAY; Complete Time: 21:15 ca1 11/30 19:20 Order name: Foot Left 3 View XRAY; Complete Time: 21:15 ca1 11/30 22:00 Order name: Shukri wrap-joint; Complete Time: 22:[address] [facility] 11/30 22:00 Order name: Ortho shoe; Complete Time: 22:[address] [facility] Administered Medications: No medications were administered Disposition: 12/01 06:40 Co-signature as Attending Physician, Leandro Loomis MD. mh7 Disposition: 11/30/20 22:05 Discharged to Home. Impression: Other sprain of foot. - Condition is Stable. - Discharge Instructions: Foot Sprain. - Medication Reconciliation Form, Thank You Letter, Antibiotic Education, Prescription Opioid Use form. - Follow up: Private Physician; When: 2 - 3 days; Reason: Recheck today's complaints, Continuance of care, Re-evaluation by your physician. Signatures: Dispatcher [employer] EDMS Valdemar Ndiaye PA PA jmm Martinez, Maria 5 Trena Antunez RN RN ca1 Holmes, Maurice, MD MD 7 Corrections: (The following items were deleted from the chart) 11/30 22:27 22:05 11/30/2020 22:05 Discharged to Home. Impression: Other sprain of foot. Condition mh5 is Stable. Forms are Medication Reconciliation Form, Thank You Letter, Antibiotic Education, Prescription Opioid Use. Follow up: Private Physician; When: 2 - 3 days; Reason: Recheck today's complaints, Continuance of care, Re-evaluation by your physician. alexandria
[2020-11-30 22:44] VITALS: BP 110/76; TEMP 98.9; O2SAT 96
== END 2020-11-30 22:27 | disposition home or self-care (01) ==
LOC: ER 18:52
DX: S93.692A Other sprain of left foot, initial encounter (principal)
CPT/HCPCS: 99283

== ENCOUNTER 2021-04-11 18:27 | Emergency (ER) | payer OTHER ==
[2021-04-11 18:59] LABS: Protime INR 1.05
[2021-04-11 19:01] LABS: Basophils % 0.7 % (0-1.3); Lymphocytes % 21.7 % (15.3-44.8); MPV 7.7 fL (7.6-11.3); RBC Red Blood Cell Count 4.76 M/uL (3.86-4.86)
--- NOTE | 2021-04-11 19:17 | RAD REPORT ---
EXAM DESCRIPTION: RAD - Chest Single View - 04/11/2021 7:11 pm CLINICAL HISTORY: CHEST PAIN COMPARISON: Chest Single View dated 09/14/2018; Chest Single View dated 08/28/2016; CHEST PA AND LAT 2 VIEW dated 03/22/2014 FINDINGS: Lines: None. Lungs: No evidence of edema or pneumonia. Pleural: No significant pleural effusions or pneumothorax. Cardiac: The heart size is within normal limits. Bones: No acute fractures. Other: IMPRESSION: No acute cardiopulmonary disease.
[2021-04-11 19:18] LABS: ALT/SGPT 36 U/L (12-78); AST/SGOT 9 U/L (15-37); Albumin 3.3 g/dL (3.4-5.0); Alkaline Phosphatase 204 U/L (45-117); BUN Blood Urea Nitrogen 9 mg/dL (7-18); Bicarbonate 25 mmol/L (21-32); Bilirubin Direct < 0.1 mg/dL (0-0.2); Bilirubin Total 0.3 mg/dL (0.2-1.0); Glucose Level 127 mg/dL (74-106); Magnesium 2.3 mg/dL (1.8-2.4); NT PRO-BNP 24 pg/mL (<125); Potassium 3.6 mmol/L (3.5-5.1); Sodium Level 143 mmol/L (136-145); Troponin (Emerg Dept Use Only) < 0.02 ng/mL (0.0-0.045)
[2021-04-11] MEDS ORDERED: MORPHINE 2 MG/ML SYR ONE ×2 (19:30→20:52)
[2021-04-11] MEDS ORDERED: ONDANSETRON 4 MG/2 ML VIAL ONE (19:30)
[2021-04-11 20:17] LABS: Urine Blood Trace-intact (Negative); Urine Glucose Negative (Negative); Urine Protein 1+ (Negative); Urine Specific Gravity >=1.030 (1.005-1.030)
[2021-04-11] MEDS ORDERED: NA CHLORIDE 0.9% 1,000 ML ONE (20:26)
[2021-04-11 20:37] LABS: Barbiturates NEGATIVE (NEGATIVE); Benzodiazepines NEGATIVE (NEGATIVE); Cocaine NEGATIVE (NEGATIVE); METHAMPHETAM NEGATIVE (NEGATIVE); Methadone NEGATIVE (NEGATIVE); Opiates NEGATIVE (NEGATIVE); Phencyclidine NEGATIVE (NEGATIVE); THC Cannibis NEGATIVE (NEGATIVE)
[2021-04-11 20:38] LABS: Urine Specific Gravity/Preg >1.030 (1.005-1.030)
[2021-04-11] MEDS ORDERED: KETOROLAC 30 MG/ML INJ ONE (21:33)
--- NOTE | 2021-04-11 21:38 | RAD REPORT ---
EXAM DESCRIPTION: CT - Chest For Pe Angio - 04/11/2021 9:12 pm CLINICAL HISTORY: CHEST PAIN COMPARISON: No comparisons FINDINGS: Chest Wall: No suspicious thyroid nodules or pathologic lymphadenopathy. Lungs: No acute abnormality. Pleura: No significant effusions or pneumothorax. Mediastinum/deedee: No pathologic lymphadenopathy. Pulmonary arteries/Aorta: No central pulmonary embolus. The segmental and subsegmental pulmonary brit arnaud are not well evaluated due to motion. No aortic aneurysm. Heart: No significant pericardial effusion. Normal heart size. Upper abdomen: No acute abnormality. Cholecystectomy. Bones: No acute abnormality. Thoracolumbar curvature. All CT scans are performed using dose optimization technique as appropriate and may include automated exposure control or mA/KV adjustment according to patient size. IMPRESSION: No clinically significant pulmonary embolus identified. Note that there is some limitati on due to motion artifact. No acute findings are seen within the chest.
--- NOTE | 2021-04-11 22:14 | ER ---
Nurse's Notes [facility] Name: Rosanne Sparks Age: 25 yrs Sex: Female : 1995 Arrival Date: 04/11/2021 Time: 18:29 Bed 4 Private MD: Diagnosis: Chest pain, unspecified Presentation: 04/11 18:35 Chief complaint: Patient states: I began having chest pains last night in the middle of ld1 my chest, it never went away so I decided to come to the ER. Pt reports being under stress from losing her grandparents this past week. Pt denies chest pain worsening. Coronavirus screen: At this time, the client does not indicate any symptoms associated with coronavirus-19. Ebola Screen: No symptoms or risks identified at this time. Initial Sepsis Screen: Does the patient meet any 2 criteria? No. Patient's initial sepsis screen is negative. Does the patient have a suspected source of infection? No. Patient's initial sepsis screen is negative. Risk Assessment: Do you want to hurt yourself or someone else? Patient reports no desire to harm self or others. Onset of symptoms was April 11, 2021. 18:35 Method Of Arrival: Ambulatory ld1 18:35 Acuity: GARRY 3 ld1 Triage Assessment: 18:38 General: Appears in no apparent distress. uncomfortable, Behavior is cooperative, ld1 appropriate for age, anxious. Pain: Complains of pain in mid-sternal area Pain does not radiate. Pain currently is 10 out of 10 on a pain scale. Quality of pain is described as heavy, Pain began 1 day ago. Is continuous. Neuro: Level of Consciousness is awake, alert, obeys commands, Oriented to person, place, time, situation, Appropriate for age. Cardiovascular: Capillary refill < 3 seconds Patient's skin is warm and dry. Rhythm is sinus tachycardia. Respiratory: Airway is patent Respiratory effort is even, labored, Respiratory pattern is regular, symmetrical. GI: Abdomen is non-distended, obese. Musculoskeletal: Reports pain in chest. 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 - Social history:: Smoking status: Patient denies any tobacco usage or history of. Patient/guardian denies using alcohol. Screenin:27 Abuse screen: Denies threats or abuse. Denies injuries from another. Nutritional kc4 screening: No deficits noted. On no prescribed diet Difficulty chewing/swallowing? No. Tuberculosis screening: No symptoms or risk factors identified. Never had TB. Possible symptoms: None Risk factors: None. Fall Risk None identified. No fall in past 12 months (0 pts). No secondary diagnosis (0 pts). No IV (0 pts). Ambulatory Aid- Gait- Normal/Bed Rest/Wheelchair (0 pts) Mental Status- Oriented to own ability (0 pts). Total Najera Fall Scale indicates No Risk (0-24 pts). Assessment: 19:55 Reassessment: Patient and/or family updated on plan of care and expected duration. Pain kc4 level reassessed. Patient is alert, oriented x 3, equal unlabored respirations, skin warm/dry/pink. pt complains of 9/10 chest pain, that has started a day ago. pt said shes been under a lot of stress. she attended her grandfathers today and her grandma Mid March. pt also states. that she was diagnosised with anxiety but does not take medications Patient states symptoms have not improved. 20:48 General: Appears in no apparent distress. comfortable, well groomed, pt sitting calmly kc4 in bed. does not appear to be in any distress, answers questions with appropriately with a smile. . Behavior is calm, cooperative, appropriate for age, Reports Denies fever, fatigue, chills. Pain: Complains of pain in chest and mid-sternal area Pain does not radiate. Pain currently is 8 out of 10 on a pain scale. at worst was 10 out of 10 on a pain scale. level that patient reports is acceptable is 0 out of 10 on a pain scale. Quality of pain is described as sharp. 20:54 Pain: Quality of pain is described as stinging, Pain began 2-3 days ago. Is continuous, kc4 Alleviated by nothing. Aggravated by eating, drinking, exercise, increased activity. Neuro: No deficits noted. 20:54 Cardiovascular: Reports chest pain, Denies diaphoresis, lightheadedness, nausea, kc4 palpitations, shortness of breath, syncope, vomiting, Heart tones present Capillary refill < 3 seconds JVD is absent Pulses are all present. Respiratory: No deficits noted. GI: No deficits noted. No signs and/or symptoms were reported involving the gastrointestinal system. : No deficits noted. No signs and/or symptoms were reported regarding the genitourinary system. EENT: No deficits noted. No signs and/or symptoms were reported regarding the EENT system. Derm: No deficits noted. No signs and/or symptoms reported regarding the dermatologic system. Musculoskeletal: No deficits noted. No signs and/or symptoms reported regarding the musculoskeletal system. Vital Signs: 18:35 Pulse 117; Resp 22; Temp 97.8(TE); Pulse Ox 99% on R/A; Weight 98.43 kg; Height 5 ft. 0 ld1 in. (152.40 cm); Pain 10/10; 18:48 BP 129 / 82; ll1 19:42 BP 110 / 74; Pulse 112; Resp 20; Temp 98.0(O); Pulse Ox 99% on R/A; Pain 6/10; kc4 20:54 BP 118 / 80; Pulse 100; Resp 18; Temp 98.0(O); Pulse Ox 100% on R/A; Pain 7/10; kc4 22:35 BP 108 / 68; Pulse 98; Resp 18; Temp 98.0(O); Pulse Ox 100% on R/A; Pain 2/10; kc4 18:35 Body Mass Index 42.38 (98.43 kg, 152.40 cm) ld1 ED Course: 18:29 Patient arrived in ED. as 18:38 Triage completed. ld1 18:38 Arm band placed on right wrist. ld1 18:40 Candie Puente RN is Primary Nurse. ll1 18:40 Patient placed in an exam room, on a stretcher. ll1 18:49 Initial lab(s) drawn, by me, sent to lab. EKG done, by ED staff, reviewed by To Ng MD. Inserted saline lock: 20 gauge in right antecubital area, using aseptic technique. Blood collected. 18:50 Patient has correct armband on for positive identification. Placed in gown. Bed in low mh5 position. Call light in reach. Side rails up X2. Warm blanket given. research laboratory manager on. Pulse ox on. NIBP on. 18:51 Magnesium Sent. mh5 18:51 CBC with Automated Diff Sent. mh5 18:51 Liver (Hepatic) Function Sent. mh5 18:51 Basic Metabolic Panel Sent. mh5 18:51 Basic Metabolic Panel Sent. mh5 18:51 CBC with Diff Sent. 5 18:51 LFT's Sent. mh5 18:51 Magnesium Sent. 5 18:51 NT PRO-BNP Sent. mh5 18:51 PT-INR Sent. mh5 18:51 Troponin (emerg Dept Use Only) Sent. mh5 18:54 Jeff Lara PA is PHCP. cp 18:54 To Ng MD is Attending Physician. cp 18:54 PT-INR Sent. mh5 19:10 XRAY Chest (1 view) In Process Unspecified. EDMS 19:43 D-Dimer Sent. kc4 20:24 UDS Sent. kc4 21:12 CT Chest For PE Angio In Process Unspecified. EDMS 21:27 No provider procedures requiring assistance completed. IV is patent. Patient maintains kc4 SpO2 saturation greater than 95% on room air. 21:31 Resting quietly. kc4 22:35 IV discontinued, intact, bleeding controlled, No redness/swelling at site. Pressure kc4 dressing applied. Administered Medications: 19:43 Drug: Zofran (Ondansetron) 4 mg Route: IVP; Site: right antecubital; kc4 20:24 Follow up: Response: No adverse reaction kc4 21:37 Follow up: Response: No adverse reaction kc4 19:43 Drug: morphine 2 mg Route: IVP; Site: right antecubital; kc4 20:29 Drug: NS 0.9% 1000 ml Route: IV; Rate: 1 bolus; Site: right antecubital; kc4 22:36 Follow up: Response: No adverse reaction; IV Status: Completed infusion; IV Intake: kc4 1000ml 21:36 Drug: Ketorolac 15 mg Route: IVP; Site: right antecubital; kc4 22:36 Follow up: Response: No adverse reaction kc4 21:37 Drug: morphine 2 mg Route: IVP; Site: right antecubital; kc4 22:37 Follow up: Response: Pain is decreased kc4 Intake: 22:36 IV: 1000ml; Total: 1000ml. kc4 Outcome: 22:13 Discharge ordered by . cp 22:34 Patient left the ED. kc4 22:35 Discharged to home via wheelchair. kc4 22:35 Condition: improved 22:35 Discharge instructions given to patient, Instructed on discharge instructions, follow up and referral plans. medication usage, Demonstrated understanding of instructions, follow-up care, medications, Prescriptions given X 2. Signatures: Dispatcher [employer] Jo Perez Corey, PA PA cp Martinez, Maria 5 Candie Puente RN RN ll1 Tiffany Girard RN RN ld1 Bibi Hernandez kc4
--- NOTE | 2021-04-11 22:14 | EDPHYS ---
Physician Documentation [facility] Name: Rosanne Sparks Age: 25 yrs Sex: Female : 1995 Arrival Date: 04/11/2021 Time: 18:29 Bed 4 Private MD: ED Physician To Ng HPI: 04/11 18:55 This 25 yrs old Female presents to ER via Ambulatory with complaints of Chest cp Pain, Dizziness. 18:55 The patient or guardian reports chest pain that is located primarily in the substernal cp area. 18:55 The pain does not radiate. Associated signs and symptoms: Pertinent positives: cp dizziness, Pertinent negatives: abdominal pain, diaphoresis, headache, lower extremity pain, lower extremity swelling, palpitations, shortness of breath, syncope. The chest pain is described as constant. Duration: The patient or guardian reports a single episode, that is still ongoing, and unchanged. 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 - Social history:: Smoking status: Patient denies any tobacco usage or history of. Patient/guardian denies using alcohol. ROS: 19:00 Constitutional: Negative for body aches, chills, fever, poor PO intake. cp 19:00 Eyes: Negative for injury, pain, redness, and discharge. cp 19:00 Cardiovascular: Positive for chest pain, Negative for edema, palpitations. 19:00 Respiratory: Negative for cough, shortness of breath, wheezing. 19:00 Abdomen/GI: Negative for abdominal pain, nausea, vomiting, and diarrhea. cp 19:00 Back: Negative for radiated pain. cp 19:00 : Negative for urinary symptoms. 19:00 Neuro: Positive for dizziness, Negative for altered mental status, headache, numbness, syncope, weakness. 19:00 All other systems are negative. Exam: 18:42 ECG was reviewed by the Attending Physician. cp 19:05 Constitutional: The patient appears in no acute distress, alert, awake, cp non-diaphoretic, non-toxic, well developed, well nourished, obese. 19:05 Head/Face: Normocephalic, atraumatic. cp 19:05 Eyes: Periorbital structures: appear normal, Conjunctiva: normal, no exudate, no injection, Sclera: no appreciated abnormality, Lids and lashes: appear normal, bilaterally. 19:05 ENT: External ear(s): are unremarkable, Nose: is normal, Mouth: Lips: moist, Oral mucosa: moist, Posterior pharynx: Airway: no evidence of obstruction, patent. 19:05 Neck: ROM/movement: is normal, is supple, without pain, no range of motions limitations, no nuchal rigidity. 19:05 Chest/axilla: Inspection: normal, Palpation: crepitus, is not appreciated, tenderness, that is mild, of the mid-sternal area. 19:05 Cardiovascular: Rate: tachycardic, Rhythm: regular, Heart sounds: murmur, not appreciated, Edema: is not appreciated, JVD: is not appreciated. 19:05 Respiratory: the patient does not display signs of respiratory distress, Respirations: normal, no use of accessory muscles, no retractions, labored breathing, is not present, Breath sounds: are clear throughout, no decreased breath sounds, no stridor, no wheezing. 19:05 Abdomen/GI: Inspection: obese Bowel sounds: active, all quadrants, Palpation: abdomen is soft and non-tender, in all quadrants. 19:05 Back: pain, is absent, ROM is normal. 19:05 Neuro: Orientation: to person, place \T\ time. Mentation: is normal, Motor: moves all fours, strength is normal, Sensation: is normal. Vital Signs: 18:35 Pulse 117; Resp 22; Temp 97.8(TE); Pulse Ox 99% on R/A; Weight 98.43 kg; Height 5 ft. 0 ld1 in. (152.40 cm); Pain 10/10; 18:48 BP 129 / 82; ll1 19:42 BP 110 / 74; Pulse 112; Resp 20; Temp 98.0(O); Pulse Ox 99% on R/A; Pain 6/10; kc4 20:54 BP 118 / 80; Pulse 100; Resp 18; Temp 98.0(O); Pulse Ox 100% on R/A; Pain 7/10; kc4 22:35 BP 108 / 68; Pulse 98; Resp 18; Temp 98.0(O); Pulse Ox 100% on R/A; Pain 2/10; kc4 18:35 Body Mass Index 42.38 (98.43 kg, 152.40 cm) ld1 MDM: 18:56 Patient medically screened. cp 19:00 Differential diagnosis: abnormal EKG, acute myocardial infarction, acute pericarditis, cp chest wall pain, cholecystitis, Cholelithiasis pancreatitis, pericarditis, pleurisy, pneumonia, pneumothorax, pulmonary embolus. 22:10 Data reviewed: vital signs, nurses notes, lab test result(s), EKG, radiologic studies, cp CT scan, plain films. 22:10 Test interpretation: by ED physician or midlevel provider: ECG, plain radiologic cp studies. 22:12 Counseling: I had a detailed discussion with the patient and/or guardian regarding: the cp historical points, exam findings, and any diagnostic results supporting the discharge/admit diagnosis, lab results, radiology results, the need for outpatient follow up, a family practitioner, to return to the emergency department if symptoms worsen or persist or if there are any questions or concerns that arise at home. 22:12 Response to treatment: the patient's symptoms have markedly improved after treatment, cp and as a result, I will discharge patient. Special discussion: Based on the patient's history, exam, and Dx evaluation, there is no indication for emergent intervention or inpatient Tx. It is understood by the patient/guardian that if the Sx's persist or worsen they need to return immediately for re-evaluation. 04/11 18:42 Order name: Basic Metabolic Panel [facility] 04/11 18:42 Order name: CBC with Diff [facility] 04/11 18:42 Order name: LFT's [facility] 04/11 18:42 Order name: Magnesium [facility] 04/11 18:42 Order name: NT PRO-BNP; Complete Time: 20:00 [facility] 04/11 18:42 Order name: PT-INR; Complete Time: 20:00 [facility] 04/11 18:42 Order name: Troponin (emerg Dept Use Only); Complete Time: 20:00 [facility] 04/11 18:42 Order name: Basic Metabolic Panel; Complete Time: 20:00 EDMS 04/11 22:03 Interpretation: Normal except: CL 110; GLUC 127. 04/11 18:42 Order name: CBC with Automated Diff; Complete Time: 20:00 EDMS 04/11 22:04 Interpretation: Normal except: WBC 13.70; MCH 26.2; MCHC 31.9; NEUT A 9.7. 04/11 18:42 Order name: Liver (Hepatic) Function; Complete Time: 20:00 EDMS 04/11 22:04 Interpretation: Normal except: AST 9; ALK 204; ALB 3.3; GLOB 4.7; A/G 0.7. 04/11 18:43 Order name: Magnesium; Complete Time: 20:00 EDMS 04/11 19:02 Order name: D-Dimer; Complete Time: 22:02 04/11 22:02 Interpretation: Abnormal: D-DIMER 646. 04/11 19:02 Order name: UDS; Complete Time: 22:02 04/11 20:16 Order name: Urine Dipstick-Ancillary; Complete Time: 22:02 EDMS 04/11 22:03 Interpretation: Normal except: UBLD Trace-intact; UPROT 1+; UESTR Trace. 04/11 18:42 Order name: XRAY Chest (1 view); Complete Time: 20:00 5 04/11 18:42 Order name: EKG; Complete Time: 18:43 5 04/11 18:42 Order name: Cardiac monitoring; Complete Time: 18:48 5 04/11 18:42 Order name: EKG - Nurse/Tech; Complete Time: 18:42 5 04/11 18:42 Order name: IV Saline Lock; Complete Time: 18:48 mh5 04/11 18:42 Order name: Labs collected and sent; Complete Time: 18:48 5 04/11 18:42 Order name: O2 Per Protocol; Complete Time: 18:48 5 04/11 18:42 Order name: O2 Sat Monitoring; Complete Time: 18:48 5 04/11 19:02 Order name: Urine Dipstick-Ancillary (obtain specimen); Complete Time: 20:25 04/11 19:02 Order name: Urine Test (obtain specimen); Complete Time: 20:25 04/11 20:01 Order name: CT Chest For PE Angio; Complete Time: 22:02 cp 04/11 22:03 Interpretation: Report reviewed. 04/11 20:25 Order name: Urine --Ancillary (enter results); Complete Time: 22:02 tt3 EC:42 Rate is 117 beats/min. Rhythm is regular. NC interval is normal. QRS interval is cp normal. QT interval is normal. T waves are Inverted in leads III, aVR. Interpreted by me. Reviewed by me. Administered Medications: 19:43 Drug: Zofran (Ondansetron) 4 mg Route: IVP; Site: right antecubital; kc4 20:24 Follow up: Response: No adverse reaction kc4 21:37 Follow up: Response: No adverse reaction kc4 19:43 Drug: morphine 2 mg Route: IVP; Site: right antecubital; kc4 20:29 Drug: NS 0.9% 1000 ml Route: IV; Rate: 1 bolus; Site: right antecubital; kc4 22:36 Follow up: Response: No adverse reaction; IV Status: Completed infusion; IV Intake: kc4 1000ml 21:36 Drug: Ketorolac 15 mg Route: IVP; Site: right antecubital; kc4 22:36 Follow up: Response: No adverse reaction kc4 21:37 Drug: morphine 2 mg Route: IVP; Site: right antecubital; kc4 22:37 Follow up: Response: Pain is decreased kc4 Disposition: 04/12 19:05 Co-signature as Attending Physician, To Ng MD I agree with the assessment and rn plan of care. Attestation: The patient's history, exam findings, diagnostics, and a summary of any interventions or procedures was reviewed in detail with Jeff DE LA ROSA. Disposition Summary: 04/11/21 22:13 Discharge Ordered Location: Home cp Problem: new cp Symptoms: have improved cp Condition: Stable cp Diagnosis - Chest pain, unspecified cp Followup: cp - With: Private Physician - When: 1 - 2 days - Reason: Recheck today's complaints Discharge Instructions: - Discharge Summary Sheet cp - Nonspecific Chest Pain, Adult cp Forms: - Medication Reconciliation Form cp - Thank You Letter cp - Antibiotic Education cp - Prescription Opioid Use cp Prescriptions: - Ibuprofen 800 mg Oral Tablet - take 1 tablet by ORAL route every 8 hours As needed take with food; 30 tablet; cp Refills: 0, Product Selection Permitted - Pepcid 20 mg Oral Tablet - take 1 tablet by ORAL route every 12 hours for 10 days; 20 tablet; Refills: 0, cp Product Selection Permitted Signatures: Dispatcher [employer] To Foster MD MD rn Jeff Lara PA PA cp Martinez, Maria [facility] Tiffany Girard RN RN ld1 Bibi Hernandez 4
[2021-04-11 22:43] VITALS: TEMP 98
[2021-04-11 22:45] VITALS: BP 118/80; O2SAT 100
== END 2021-04-11 22:34 | disposition home or self-care (01) ==
LOC: ER 18:27
DX: R07.9 Chest pain, unspecified (principal); E11.9 Type 2 diabetes mellitus without complications
CPT/HCPCS: 96361; 85025; 80048; 36415; 83735; 81025; 85610; 85379; 80076; 81003; 84484; 83880; 80307; 71275; 71045; 96375; 96374; 99285; Q9967; J2270 ×2; J7030; J2405

== ENCOUNTER 2021-07-03 08:25 | Emergency (ER) | payer OTHER ==
--- OUTSIDE RECORDS SUMMARY | 2021-07-03 08:30 | XMS REPORT | Continuity of Care Document ---
:1995 Author Organization [facility] t Address [address] [place] [address] [address] [place] [address] Care Team Providers Name Role Phone Juhi CASTINGS DRAFTER Primary Care Physician Provider, Db Urgent [facility] Attending Clinician Unavailable Ebrahim CASTINGS DRAFTER Attending Clinician Rony KIMBROUGH Attending Clinician EBRAHIM Attending Clinician Unavailable Anene CASTINGS DRAFTER Attending Clinician Pob, Lab Main Attending Clinician Unavailable Bentley KIMBROUGH Attending Clinician BENTLEY Attending Clinician Unavailable Doctor Unassigned, Name Attending Clinician Unavailable Only, Db Test Attending Clinician Unavailable RONY Attending Clinician Unavailable ANENE Attending Clinician Unavailable Provider, Urgent Care Attending Clinician Unavailable Payers Payer Name Policy Type Policy Number Effective Date Expiration Date S ource Problems Condition Condition Condition Status Onset Resolution Last Treating Co mments Source Name Details Category Date Date Treatment Clinician Date Subacute Subacute Disease Active Unive rs maxillary maxillary 6-10 ity of sinusitis sinusitis 00:00: [address] Left arm Left arm Disease Active Unive rs pain pain 6-10 ity of 00:00: [address] Acute Acute Disease Active Univers otitis otitis 6-10 ity of media, media, 00:00: [place] bilateral bilateral [address] [place] [address] Allergies, Adverse Reactions, Alerts Allergy Allergy Status Severity Reaction(s) Onset Inactive Treating Comm ents Source Name Type Date Date Clinician NO KNOWN Drug Active Univers ALLERGIE Class ity of [facility] Social History Social Habit Start Date Stop Date Quantity Comments Source Exposure to Not sure [facility] SARS-CoV-2 [facility] (event) Branch Alcohol intake 2021-06-28 2021-06-28 Lifetime University of 00:00:00 00:00:00 non-drinker [facility] (finding) Branch Tobacco use and 2020-10-16 2020-10-16 Never used Universit y of exposure 00:00:00 00:00:00 [facility] Sex Assigned At [birth year] Universit y of 00:00:00 00:00:00 [facility] Smoking Status Start Date Stop Date Source Never smoker [facility] Medications Ordered Filled Start Stop Current Ordering Indication Dosage Frequency Signature Comments Components Source Medication Medication Date Date Medication? Clinician (SIG) Name Name mupirocin 2 Yes [id number] Apply to Univers % ointment 1-21 area(s) 3 ity of 00:00: (three) [place] 00 times Medical daily. Branch mupirocin 2 Yes [id number] Apply to Univers % ointment 1-21 area(s) 3 ity of 00:00: (three) [place] 00 times Medical daily. Branch mupirocin 2 Yes [id number] Apply to Univers % ointment 1-21 area(s) 3 ity of 00:00: (three) [place] 00 times Medical daily. Branch amoxicillin 2021- Yes [id number] 1{tbl} Take 1 Univers -clavulanat -29 07- tablet by it y of e 00:00: 05:59 mouth 2 [place] (AUGMENTIN) 00 :00 (two) Medical 875-125 mg times Branch per tablet daily for 10 days. amoxicillin 2021- Yes [id number] 1{tbl} Take 1 Univers -clavulanat -29 07- tablet by it y of e 00:00: 05:59 mouth 2 [place] (AUGMENTIN) 00 :00 (two) Medical 875-125 mg times Branch per tablet daily for 10 days. amoxicillin 2021- Yes [id number] 1{tbl} Take 1 Univers -clavulanat -29 07- tablet by it y of e 00:00: 05:59 mouth 2 [place] (AUGMENTIN) 00 :00 (two) Medical 875-125 mg times Branch per tablet daily for 10 days. naproxen 2020-06- Yes [id number] 500mg Take 1 Univers 500 mg -16 - 9100 tablet by ity of tablet 00:00: 05:59 mouth 2 [place] 00 :00 (two) Medical times Branch daily as needed for Pain (scale 4-6) for up to 30 days. naproxen 2020-06- Yes [id number] 500mg Take 1 Univers 500 mg 2-16 - 9100 tablet by ity of tablet 00:00: 05:59 mouth 2 [place] 00 :00 (two) Medical times Branch daily as needed for Pain (scale 4-6) for up to 30 days. naproxen 2020-06- Yes [id number] 500mg Take 1 Univers 500 mg -16 - 9100 tablet by ity of tablet 00:00: 05:59 mouth 2 [place] 00 :00 (two) Medical times Branch daily as needed for Pain (scale 4-6) for up to 30 days. methylPREDN 2020-06- Yes [id number] Take by Univers ISolone 4 -16 12-23 9100 mouth ity of mg tablets 00:00: 05:59 SEE-INSTRU [place] 00 :00 CTIONS for Medical 6 days. Branch follow package directions busPIRone 2020-06- Yes [id number] 10mg Take 1 U nivers 10 mg 1-15 12-31 tablet by ity of tablet 00:00: 05:59 mouth 2 [place] 00 :00 (two) Medical times Branch daily for 45 days. pantoprazol 2020-06 Yes Univer s e 40 mg EC 1-08 ity of tablet 00:00: [place] [facility] pantoprazol 2020-06 Yes Univer s e 40 mg EC 1-08 ity of tablet 00:00: [place] [facility] pantoprazol 2020-06 Yes Univer s e 40 mg EC 1-08 ity of tablet 00:00: [place] [facility] pantoprazol 2020-06 Yes Univer s e 40 mg EC 1-08 ity of tablet 00:00: [place] [address] Medical Branch pantoprazol 2020-06 Yes Univer s e 40 mg EC 1-08 ity of tablet 00:00: [place] [address] Medical Branch pantoprazol 2020-06 Yes Univer s e 40 mg EC 1-08 ity of tablet 00:00: [place] [facility] pantoprazol 2020-06 Yes Univer s e 40 mg EC 1-08 ity of tablet 00:00: [place] [facility] pantoprazol 2020-06 Yes Univer s e 40 mg EC 1-08 ity of tablet 00:00: [place] [facility] ibuprofen 2020-06 Yes Univers 800 mg 1-05 ity of tablet 00:00: [place] [facility] famotidine 2020-06 Yes Univers 20 mg 1-05 ity of tablet 00:00: [place] [address] Medical Branch ibuprofen 2020-06 Yes Univers 800 mg 1-05 ity of tablet 00:00: [place] [facility] famotidine 2020-06 Yes Univers 20 mg 1-05 ity of tablet 00:00: [place] [address] Medical Branch ibuprofen 2020-06 Yes Univers 800 mg 1-05 ity of tablet 00:00: [place] [facility] famotidine 2020-06 Yes Univers 20 mg 1-05 ity of tablet 00:00: [place] [address] Medical Branch ibuprofen 2020-06 Yes Univers 800 mg 1-05 ity of tablet 00:00: [place] [facility] famotidine 2020-06 Yes Univers 20 mg 1-05 ity of tablet 00:00: [place] [address] Medical Branch ibuprofen 2020- Yes Univers 800 mg 1-05 ity of tablet 00:00: [place] [address] Medical Branch famotidine 2020-06 Yes Univers 20 mg 1-05 ity of tablet 00:00: [place] [address] Medical Branch ibuprofen 2020- Yes Univers 800 mg 1-05 ity of tablet 00:00: [place] [facility] famotidine 2020- Yes Univers 20 mg 1-05 ity of tablet 00:00: [place] [address] Medical Branch ibuprofen 2020- Yes Univers 800 mg 1-05 ity of tablet 00:00: [place] [facility] famotidine 2020- Yes Univers 20 mg 1-05 ity of tablet 00:00: [place] [facility] ibuprofen 2020-06 Yes Univers 800 mg 1-05 ity of tablet 00:00: [place] [address] Medical Branch famotidine 2020- Yes Univers 20 mg 1-05 ity of tablet 00:00: [place] [address] Medical Branch SUMAtriptan 2020-06 Yes Univer s 50 mg 1-02 ity of tablet 00:00: [place] [facility] SUMAtriptan 2020-06 Yes Univer s 50 mg 1-02 ity of tablet 00:00: [place] [facility] SUMAtriptan 2020-06 Yes Univer s 50 mg 1-02 ity of tablet 00:00: [place] [facility] SUMAtriptan 2020-06 Yes Univer s 50 mg 1-02 ity of tablet 00:00: [place] [facility] SUMAtriptan 2020-06 Yes Univer s 50 mg 1-02 ity of tablet 00:00: [place] [facility] SUMAtriptan 2020-06 Yes Univer s 50 mg 1-02 ity of tablet 00:00: [place] [facility] SUMAtriptan 2020-06 Yes Univer s 50 mg 1-02 ity of tablet 00:00: [place] [facility] SUMAtriptan 2020-06 Yes Univer s 50 mg 1-02 ity of tablet 00:00: [place] [facility] fluticasone 2020-06 Yes [id number] 1{spray Use 1 Univers propionate 0-20 } [place] in ity o f 50 00:00: each [place] mcg/actuati 00 nostril Medic al on nasal daily. Branch spray guaiFENesin 2020-06 Yes [id number] 400mg Take 1 Univers 400 mg 0-20 tablet by ity of tablet 00:00: mouth [place] 00 every 4 Medical (four) Branch hours as needed for Cough. ciprofloxac 2020-06 Yes [id number] 4[drp] Place 4 Univers in-dexameth 0-20 Drops in ity of asone 00:00: right ear [place] (CIPRODEX) 00 2 (two) Medica l 0.3-0.1 % times Branch otic drops daily. fluticasone 2020-06 Yes [id number] 1{spray Use 1 Univers propionate 0-20 } [place] in ity o f 50 00:00: each [place] mcg/actuati 00 nostril Medic al on nasal daily. Branch spray guaiFENesin 2020-06 Yes [id number] 400mg Take 1 Univers 400 mg 0-20 tablet by ity of tablet 00:00: mouth [place] 00 every 4 Medical (four) Branch hours as needed for Cough. ciprofloxac 2020-06 Yes [id number] 4[drp] Place 4 Univers in-dexameth 0-20 Drops in ity of asone 00:00: right ear [place] (CIPRODEX) 00 2 (two) Medica l 0.3-0.1 % times Branch otic drops daily. fluticasone 2020-06 Yes [id number] 1{spray Use 1 Univers propionate 0-20 } [place] in ity o f 50 00:00: each [place] mcg/actuati 00 nostril Medic al on nasal daily. Branch spray guaiFENesin 2020-06 Yes [id number] 400mg Take 1 Univers 400 mg 0-20 tablet by ity of tablet 00:00: mouth [place] 00 every 4 Medical (four) Branch hours as needed for Cough. ciprofloxac 2020-06 Yes [id number] 4[drp] Place 4 Univers in-dexameth 0-20 Drops in ity of asone 00:00: right ear [place] (CIPRODEX) 00 2 (two) Medica l 0.3-0.1 % times Branch otic drops daily. fluticasone 2020-06 Yes [id number] 1{spray Use 1 Univers propionate 0-20 } [place] in ity o f 50 00:00: each [place] mcg/actuati 00 nostril Medic al on nasal daily. Branch spray guaiFENesin 2020-06 Yes [id number] 400mg Take 1 Univers 400 mg 0-20 tablet by ity of tablet 00:00: mouth [place] 00 every 4 Medical (four) Branch hours as needed for Cough. ciprofloxac 2020-06 Yes [id number] 4[drp] Place 4 Univers in-dexameth 0-20 Drops in ity of asone 00:00: right ear [place] (CIPRODEX) 00 2 (two) Medica l 0.3-0.1 % times Branch otic drops daily. fluticasone 2020-06 Yes [id number] 1{spray Use 1 Univers propionate 0-20 } [place] in ity o f 50 00:00: each [place] mcg/actuati 00 nostril Medic al on nasal daily. Branch spray guaiFENesin 2020-06 Yes [id number] 400mg Take 1 Univers 400 mg 0-20 tablet by ity of tablet 00:00: mouth [place] 00 every 4 Medical (four) Branch hours as needed for Cough. ciprofloxac 2020-06 Yes [id number] 4[drp] Place 4 Univers in-dexameth 0-20 Drops in ity of asone 00:00: right ear [place] (CIPRODEX) 00 2 (two) Medica l 0.3-0.1 % times Branch otic drops daily. fluticasone 2020-06 Yes [id number] 1{spray Use 1 Univers propionate 0-20 } [place] in ity o f 50 00:00: each [place] mcg/actuati 00 nostril Medic al on nasal daily. Branch spray guaiFENesin 2020-06 Yes [id number] 400mg Take 1 Univers 400 mg 0-20 tablet by ity of tablet 00:00: mouth [place] 00 every 4 Medical (four) Branch hours as needed for Cough. ciprofloxac 2020-06 Yes [id number] 4[drp] Place 4 Univers in-dexameth 0-20 Drops in ity of asone 00:00: right ear [place] (CIPRODEX) 00 2 (two) Medica l 0.3-0.1 % times Branch otic drops daily. fluticasone 2020-06 Yes [id number] 1{spray Use 1 Univers propionate 0-20 } [place] in ity o f 50 00:00: each [place] mcg/actuati 00 nostril Medic al on nasal daily. Branch spray guaiFENesin 2020-06 Yes [id number] 400mg Take 1 Univers 400 mg 0-20 tablet by ity of tablet 00:00: mouth [place] 00 every 4 Medical (four) Branch hours as needed for Cough. ciprofloxac 2020-06 Yes [id number] 4[drp] Place 4 Univers in-dexameth 0-20 Drops in ity of asone 00:00: right ear [place] (CIPRODEX) 00 2 (two) Medica l 0.3-0.1 % times Branch otic drops daily. fluticasone 2020-06 Yes [id number] 1{spray Use 1 Univers propionate 0-20 } [place] in ity o f 50 00:00: each [place] mcg/actuati 00 nostril Medic al on nasal daily. Branch spray guaiFENesin 2020-06 Yes [id number] 400mg Take 1 Univers 400 mg 0-20 tablet by ity of tablet 00:00: mouth [place] 00 every 4 Medical (four) Branch hours as needed for Cough. ciprofloxac 2020-06 Yes [id number] 4[drp] Place 4 Univers in-dexameth 0-20 Drops in ity of asone 00:00: right ear [place] (CIPRODEX) 00 2 (two) Medica l 0.3-0.1 % times Branch otic drops daily. glimepiride 2020-06 Yes Univer s 2 mg tablet 0-12 ity of 00:00: [place] 00 Medical Branch glimepiride 2020-06 Yes Univer s 2 mg tablet 0-12 ity of 00:00: [place] 00 Medical Branch glimepiride 2020-06- No Unive rs 2 mg tablet 0-12 -13 ity of 00:00: 00:00 [place] 00 :00 Medical Branch metFORMIN 0 Yes Univers 500 mg 9-13 ity of tablet 00:00: [place] 00 Medical Branch metFORMIN 0 Yes Univers 500 mg 9-13 ity of tablet 00:00: [place] 00 Medical Branch metFORMIN 2020-0 2- No Univers 500 mg 9-13 -13 ity of tablet 00:00: 00:00 [place] 00 :00 Medical Branch amoxicillin 0 Yes [id number] 1{tbl} Take 1 Univers -clavulanat 6-10 tablet by ity of e 00:00: mouth 2 [place] (AUGMENTIN) 00 (two) Medical 875-125 mg times Branch per tablet daily. acetaminoph Yes [id number] 650mg Take 1 Univers en 650 mg 6-10 tablet by ity o f CR tablet 00:00: mouth [place] 00 every 8 Medical (eight) Branch hours as needed for Pain or Fever. Diclofenac Yes [id number] Apply to Univers Sodium 6-10 area(s) 4 ity of (VOLTAREN) 00:00: (four) [place] 1 % gel 00 times Medical daily. Branch Apply 4 g qid amoxicillin Yes [id number] 1{tbl} Take 1 Univers -clavulanat 6-10 tablet by ity of e 00:00: mouth 2 [place] (AUGMENTIN) 00 (two) Medical 875-125 mg times Branch per tablet daily. acetaminoph 2021-0 Yes [id number] 650mg Take 1 Univers en 650 mg 6-10 tablet by ity o f CR tablet 00:00: mouth [place] 00 every 8 Medical (eight) Branch hours as needed for Pain or Fever. Diclofenac 1-0 Yes [id number] Apply to Univers Sodium 6-10 area(s) 4 ity of (VOLTAREN) 00:00: (four) [place] 1 % gel 00 times Medical daily. Branch Apply 4 g qid amoxicillin 2020-0 Yes [id number] 1{tbl} Take 1 Univers -clavulanat 6-10 tablet by ity of e 00:00: mouth 2 [place] (AUGMENTIN) 00 (two) Medical 875-125 mg times Branch per tablet daily. acetaminoph 2020-0 Yes [id number] 650mg Take 1 Univers en 650 mg 6-10 tablet by ity o f CR tablet 00:00: mouth [place] 00 every 8 Medical (eight) Branch hours as needed for Pain or Fever. Diclofenac 2020-0 Yes [id number] Apply to Univers Sodium 6-10 area(s) 4 ity of (VOLTAREN) 00:00: (four) [place] 1 % gel 00 times Medical daily. Branch Apply 4 g qid amoxicillin 1-0 Yes [id number] 1{tbl} Take 1 Univers -clavulanat 6-10 tablet by ity of e 00:00: mouth 2 [place] (AUGMENTIN) 00 (two) Medical 875-125 mg times Branch per tablet daily. acetaminoph 2020-0 Yes [id number] 650mg Take 1 Univers en 650 mg 6-10 tablet by ity o f CR tablet 00:00: mouth [place] 00 every 8 Medical (eight) Branch hours as needed for Pain or Fever. Diclofenac 2021-0 Yes [id number] Apply to Univers Sodium 6-10 area(s) 4 ity of (VOLTAREN) 00:00: (four) [place] 1 % gel 00 times Medical daily. Branch Apply 4 g qid amoxicillin 1-0 Yes [id number] 1{tbl} Take 1 Univers -clavulanat 6-10 tablet by ity of e 00:00: mouth 2 [place] (AUGMENTIN) 00 (two) Medical 875-125 mg times Branch per tablet daily. acetaminoph 2021-0 Yes [id number] 650mg Take 1 Univers en 650 mg 6-10 tablet by ity o f CR tablet 00:00: mouth [place] 00 every 8 Medical (eight) Branch hours as needed for Pain or Fever. Diclofenac 2020-0 Yes [id number] Apply to Univers Sodium 6-10 area(s) 4 ity of (VOLTAREN) 00:00: (four) [place] 1 % gel 00 times Medical daily. Branch Apply 4 g qid amoxicillin 2020-0 Yes [id number] 1{tbl} Take 1 Univers -clavulanat 6-10 tablet by ity of e 00:00: mouth 2 [place] (AUGMENTIN) 00 (two) Medical 875-125 mg times Branch per tablet daily. acetaminoph 2020-0 Yes [id number] 650mg Take 1 Univers en 650 mg 6-10 tablet by ity o f CR tablet 00:00: mouth [place] 00 every 8 Medical (eight) Branch hours as needed for Pain or Fever. Diclofenac 2020-0 Yes [id number] Apply to Univers Sodium 6-10 area(s) 4 ity of (VOLTAREN) 00:00: (four) [place] 1 % gel 00 times Medical daily. Branch Apply 4 g qid amoxicillin 2020-0 Yes [id number] 1{tbl} Take 1 Univers -clavulanat 6-10 tablet by ity of e 00:00: mouth 2 [place] (AUGMENTIN) 00 (two) Medical 875-125 mg times Branch per tablet daily. acetaminoph 2020-0 Yes [id number] 650mg Take 1 Univers en 650 mg 6-10 tablet by ity o f CR tablet 00:00: mouth [place] 00 every 8 Medical (eight) Branch hours as needed for Pain or Fever. Diclofenac 2020-0 Yes [id number] Apply to Univers Sodium 6-10 area(s) 4 ity of (VOLTAREN) 00:00: (four) [place] 1 % gel 00 times Medical daily. Branch Apply 4 g qid amoxicillin 2020-0 Yes [id number] 1{tbl} Take 1 Univers -clavulanat 6-10 tablet by ity of e 00:00: mouth 2 [place] (AUGMENTIN) 00 (two) Medical 875-125 mg times Branch per tablet daily. acetaminoph 2020-0 Yes [id number] 650mg Take 1 Univers en 650 mg 6-10 tablet by ity o f CR tablet 00:00: mouth [place] 00 every 8 Medical (eight) Branch hours as needed for Pain or Fever. Diclofenac 0 Yes [id number] Apply to Univers Sodium 6-10 area(s) 4 ity of (VOLTAREN) 00:00: (four) [place] 1 % gel 00 times Medical daily. Branch Apply 4 g qid DEPO-[employer]EAN IMPORT REPRESENTATIVE Yes Univer s A 150 mg/mL 6-03 ity of syringe 00:00: Medical Branch DEPO-OCEAN IMPORT REPRESENTATIVE 0 Yes Univer s A 150 mg/mL 6-03 ity of syringe 00:00: Medical Branch DEPO-OCEAN IMPORT REPRESENTATIVE 0 Yes Univer s A 150 mg/mL 6-03 ity of syringe 00:00: Medical Branch DEPO-OCEAN IMPORT REPRESENTATIVE 0 Yes Univer s A 150 mg/mL 6-03 ity of syringe 00:00: Medical Branch DEPO-OCEAN IMPORT REPRESENTATIVE 0 Yes Univer s A 150 mg/mL 6-03 ity of syringe 00:00: Medical Branch DEPO-OCEAN IMPORT REPRESENTATIVE 0 Yes Univer s A 150 mg/mL 6-03 ity of syringe 00:00: Medical Branch DEPO-OCEAN IMPORT REPRESENTATIVE 0 Yes Univer s A 150 mg/mL 6-03 ity of syringe 00:00: Medical Branch DEPO-OCEAN IMPORT REPRESENTATIVE 0 Yes Univer s A 150 mg/mL 6-03 ity of syringe 00:00: Medical Branch nystatin 0 Yes Univers 100,000 4-30 ity of unit/gram 00:00: [place] cream Medical Branch nystatin 0 Yes Univers 100,000 4-30 ity of unit/gram 00:00: [place] cream Medical Branch nystatin 2020-0 Yes Univers 100,000 4-30 ity of unit/gram 00:00: [place] cream Medical Branch nystatin 2020-0 Yes Univers 100,000 4-30 ity of unit/gram 00:00: [place] cream Medical Branch nystatin 2020-0 Yes Univers 100,000 4-30 ity of unit/gram 00:00: [place] cream Medical Branch nystatin 2020-0 Yes Univers 100,000 4-30 ity of unit/gram 00:00: [place] cream 00 Medical Branch nystatin 2020-0 Yes Univers 100,000 4-30 ity of unit/gram 00:00: [place] cream 00 Medical Branch nystatin 2020-0 Yes Univers 100,000 4-30 ity of unit/gram 00:00: [place] cream 00 Medical Branch chlorhexidi 0 Yes Univer s ne 0.12 % 4-27 ity of mouthwash 00:00: [place] [facility] chlorhexidi 0 Yes Univer s ne 0.12 % 4-27 ity of mouthwash 00:00: Medical Branch chlorhexidi 0 Yes Univer s ne 0.12 % 4-27 ity of mouthwash 00:00: Medical Branch chlorhexidi 0 Yes Univer s ne 0.12 % 4-27 ity of mouthwash 00:00: Medical Branch chlorhexidi 0 Yes Univer s ne 0.12 % 4-27 ity of mouthwash 00:00: Medical Branch chlorhexidi 0 Yes Univer s ne 0.12 % 4-27 ity of mouthwash 00:00: Medical Branch chlorhexidi 0 Yes Univer s ne 0.12 % 4-27 ity of mouthwash 00:00: Medical Branch chlorhexidi 0 Yes Univer s ne 0.12 % 4-27 ity of mouthwash 00:00: [place] [facility] Branch Immunizations Ordered Filled Immunization Date Status Comments [facility] e Immunization Name Name SARS-COV-2 COVID-19 2021-05-10 Completed Unive rsity of PFIZER VACCINE 00:00:00 [facility] SARS-COV-2 COVID-19 2021-05-10 Completed Unive rsity of PFIZER VACCINE 00:00:00 [facility] SARS-COV-2 COVID-19 2021-05-10 Completed Unive rsity of PFIZER VACCINE 00:00:00 [facility] SARS-COV-2 COVID-19 2021-05-10 Completed Unive rsity of PFIZER VACCINE 00:00:00 [facility] SARS-COV-2 COVID-19 2021-05-10 Completed Unive rsity of PFIZER VACCINE 00:00:00 [facility] SARS-COV-2 COVID-19 2021-05-10 Completed Unive rsity of PFIZER VACCINE 00:00:00 [facility] SARS-COV-2 COVID-19 2021-05-10 Completed Unive rsity of PFIZER VACCINE 00:00:00 [facility] SARS-COV-2 COVID-19 2021-05-10 Completed Unive rsity of PFIZER VACCINE 00:00:00 [facility] Influenza Virus 2021-04-22 Completed Universit y of Vaccine Quad IM, 00:00:00 [facility] dical Preserv and ABX Branch Free 6 MO-64 YRS TDAP 2021-04-22 Completed University of 00:00:00 [facility] Influenza Virus 2021-04-22 Completed Universit y of Vaccine Quad IM, 00:00:00 [place] Me dical Preserv and ABX Branch Free 6 MO-64 YRS TDAP 2021-04-22 Completed University of 00:00:00 [facility] Influenza Virus 2021-04-22 Completed Universit y of Vaccine [facility] IM, 00:00:00 [place] Me dical Preserv and ABX Branch Free 6 MO-64 YRS TDAP 2021-04-22 Completed University of 00:00:00 [facility] Influenza Virus 2021-04-22 Completed Universit y of Vaccine [facility] IM, 00:00:00 [place] Me dical Preserv and ABX Branch Free 6 MO-64 YRS TDAP 2021-04-22 Completed University of 00:00:00 [facility] Influenza Virus 2021-04-22 Completed Universit y of Vaccine Quad IM, 00:00:00 [place] Me dical Preserv and ABX Branch Free 6 MO-64 YRS TDAP 2021-04-22 Completed University of 00:00:00 [facility] Influenza Virus 2021-04-22 Completed Universit y of Vaccine Quad IM, 00:00:00 [place] Me dical Preserv and ABX Branch Free 6 MO-64 YRS TDAP 2021-04-22 Completed University of 00:00:00 [facility] Influenza Virus 2021-04-22 Completed Universit y of Vaccine Quad IM, 00:00:00 [place] Me dical Preserv and ABX Branch Free 6 MO-64 YRS TDAP 2021-04-22 Completed University of 00:00:00 [facility] Influenza Virus 2021-04-22 Completed Universit y of Vaccine Quad IM, 00:00:00 [facility] dical Preserv and ABX Branch Free 6 MO-64 YRS TDAP 2021-04-22 Completed University 00:00:00 [facility] SARS-COV-2 COVID-19 2020-09-19 Completed Unive rsity of PFIZER VACCINE 00:00:00 [facility] SARS-COV-2 COVID-19 2020-09-19 Completed Unive rsity of PFIZER VACCINE 00:00:00 [facility] SARS-COV-2 COVID-19 2020-09-19 Completed Unive rsity of PFIZER VACCINE 00:00:00 [facility] SARS-COV-2 COVID-19 2020-09-19 Completed Unive rsity of PFIZER VACCINE 00:00:00 [facility] SARS-COV-2 COVID-19 2020-09-19 Completed Unive rsity of PFIZER VACCINE 00:00:00 [facility] SARS-COV-2 COVID-19 2020-09-19 Completed Unive rsity of PFIZER VACCINE 00:00:00 [facility] SARS-COV-2 COVID-19 2020-09-19 Completed Unive rsity of PFIZER VACCINE 00:00:00 [facility] SARS-COV-2 COVID-19 2020-09-19 Completed Unive rsity of PFIZER VACCINE 00:00:00 [facility] SARS-COV-2 COVID-19 2020-08-29 Completed Unive rsity of PFIZER VACCINE 00:00:00 [facility] SARS-COV-2 COVID-19 2020-08-29 Completed Unive rsity of PFIZER VACCINE 00:00:00 [facility] SARS-COV-2 COVID-19 2020-08-29 Completed Unive rsity of PFIZER VACCINE 00:00:00 [facility] SARS-COV-2 COVID-19 2020-08-29 Completed Unive rsity of PFIZER VACCINE 00:00:00 [facility] SARS-COV-2 COVID-19 2020-08-29 Completed Unive rsity of PFIZER VACCINE 00:00:00 [facility] SARS-COV-2 COVID-19 2020-08-29 Completed Unive rsity of PFIZER VACCINE 00:00:00 [facility] SARS-COV-2 COVID-19 2020-08-29 Completed Unive rsity of PFIZER VACCINE 00:00:00 [facility] SARS-COV-2 COVID-19 2020-08-29 Completed Unive rsity of PFIZER VACCINE 00:00:00 [facility] Vital Signs Vital Name Observation Time Observation Value Comments Source Systolic blood 2021-06-28 22:38:00 129 mm[Hg] Univer sity of pressure [facility] Diastolic blood 2021-06-28 22:38:00 73 mm[Hg] Unive rsity of pressure [facility] Heart rate 2021-06-28 22:38:00 102 /min [facility] Body temperature 2021-06-28 22:38:00 36.94 Janet [facility] Respiratory rate 2021-06-28 22:38:00 16 /min [facility] Body height 2021-06-28 22:38:00 152.4 cm [facility] Body weight 2021-06-28 22:38:00 99.066 kg [facility] [place] [facility] [place] BMI 2021-06-28 22:38:00 42.65 kg/m2 [facility] Oxygen saturation in 2021-06-28 22:38:00 97 /min University of Arterial blood by [facility] Pulse oximetry Branch Systolic blood 2021-05-23 19:37:00 114 mm[Hg] Univer sity of pressure [facility] Diastolic blood 2021-05-23 19:37:00 73 mm[Hg] Unive rsity of pressure [facility] Heart rate 2021-05-23 19:37:00 102 /min [facility] Body height 2021-05-23 19:37:00 152.4 cm [facility] Body weight 2021-05-23 19:37:00 98.748 kg [facility] BMI 2021-05-23 19:37:00 42.52 kg/m2 [facility] Oxygen saturation in 2021-05-23 19:37:00 96 /min [facility] of Arterial blood by [facility] Pulse oximetry Branch Procedures Procedure Date / Time Performed Performing Clinician [facility] e ASSIGNMENT OF BENEFITS 2021-06-26 15:23:38 Doctor Unassigned, No [facility] Branch CBC WITH DIFF 2021-05-23 22:38:00 Dorita Reynaga Harper o [facility] Encounters Start End Encounter Admission Attending Care Care Encounter Source Date/Time Date/Time Type Type Clinicians Facility Department ID 2021-07-01 2021-07-01 Telephone Provider, [facility] 1.2.840.114 [id number] Univers 00:00:00 00:00:00 Ang Db HEALTH 350.1.13.10 it y of Urgent [facility] [place] 4.2.7.2.686 [place] CHRIST?BLEA [id number] [facility] [address] [place] MEDICAL OFFICE BUILDING 2021-06-28 2021-06-28 Urgent Brenda Spivey [facility] 1.2.840.114 [id number] Univers 16:40:00 17:00:00 Care Jono Uribe HEALTH 350.1.13.10 ity of [place] 4.2.7.2.686 Leo as CHRIST?BLEA [phone] Nh shae [facility] [address] [place] MEDICAL OFFICE BUILDING 2021-06-28 2021-06-28 Outpatient R [facility] [id number] Univers 16:40:00 16:40:00 [id number] [facility] 2021-06-28 2021-06-28 Outpatient R AL [facility] [id number] Univers 16:40:00 16:40:00 [facility] 2021-06-28 2021-06-[address] [facility] 1.2.840.114 [id number] Univers 00:00:00 00:00:00 Secure Msg Dorita [facility] [id number] ity of [place] 4.2.7.2.686 Leo as CHRIST?BLEA [id number] Nh shae [facility] [address] [place] MEDICAL OFFICE BUILDING 2021-06-26 2021-06-26 Data Management Manager Facundo Braun Lab Main [facility] 1.2.8 40.114 [id number] Univers 09:30:00 09:45:00 Visit Cem [place] 350.1.13.10 ity of [place] [id number] Nh shae [facility] 2021-06-26 2021-06-26 Outpatient R [facility] [id number] Univers 09:30:00 09:30:00 [id number] ity [facility] 2021-06-26 2021-06-26 Outpatient R BENTLEY [facility] [id number] Univers 09:30:00 09:30:00 CEM ity [facility] 2021-06-26 2021-06-26 Orders Doctor JUNITO 1.2.840.114 [id number] Univers 00:00:00 00:00:00 Only Unassigned, FER 350.1.13.10 ity of [place] [facility] 4.2.7.2.686 Leo as [id number] [address] 2021-06-20 2021-06-[address] [facility] [id number] Univers 00:00:00 00:00:00 Dorita [employer] 350.1.13.10 it y of [place] 4.2.7.2.686 Leo as CHRIST?BLEA [id number] [facility] [address] [place] MEDICAL OFFICE [facility] 2021-06-14 2021-06-14 Laboratory Only, Ang Db Test [facility] 1.2.8 40.114 [id number] Univers 10:15:00 10:30:00 Only Jono Uribe [facility] 350.1.13.10 ity of [place] 4.2.7.2.686 Leo as CHRIST?BLEA [id number] [facility] PADMINI [address] [place] MEDICAL OFFICE [facility] 2021-06-14 2021-06-14 Outpatient R [facility] [id number] Univers 10:15:00 10:15:00 [id number] ity [facility] 2021-06-14 2021-06-14 [facility] [id number] Univers 10:15:00 10:15:00 JONO [facility] 2021-05-29 2021-05-29 Outpatient R JUHI [facility] [id number] Univers 17:30:00 17:30:00 DORITA [id number] shannon [facility] 2021-05-29 2021-05-29 Outpatient R JUHI [facility] [id number] Univers 00:00:00 00:00:00 DORITA ortega [facility] 2021-05-24 2021-05-24 [facility] [id number] Univers 00:00:00 00:00:00 DORITA [id number] shannon [facility] 2021-05-23 2021-05-23 [facility] 1.2.840.114 [id number] Univers 13:30:00 14:24:35 Visit Dorita HEALTH 350.1.13.10 it y of [place] 4.2.7.2.686 Leo as CHRIST?BLEA [phone] Nh shae [address] OFFICE [facility] 2021-05-23 2021-05-23 Outpatient [facility] [id number] Univers 13:30:00 14:24:35 DORITA ortega [facility] 2020-10-26 2020-10-26 [facility] 1.2.840.114 [id number] 09:45:00 23:59:00 Encounter Dorita Haro 350.1.13.10 [place] 4.2.7.2.686 [place] [id number] 2020-10-26 2020-10-26 Urgent Provider, [facility] [id number] 08:47:17 09:07:17 Care Ang [facility] 350.1.13.10 Care [place] 4.2.7.2.686 Professio [phone] [place] [address] [address] 2020-10-26 2020-10-26 Telephone Provider, [facility] 1.2.840.114 [id number] 00:00:00 00:00:00 Ang [facility] 350.1.13.10 Care [place] 4.2.7.2.686 Professio [phone] [place] [address] [address] 2020-10-26 2020-10-26 Orders Doctor WILD 1.2.840.114 [id number] 00:00:00 00:00:00 Only Unassigned, FER 350.1.13.10 [place] [facility] 4.2.7.2.686 [id number] 2020-10-17 2020-10-17 Telephone Provider, [facility] 1.2.840.114 [id number] 00:00:00 00:00:00 Ang [facility] 350.1.13.10 Care [place] 4.2.7.2.686 Professio [phone] [place] [address] 2020-10-16 2020-10-16 Urgent Provider, [facility] [id number] 09:22:16 10:22:39 Care Ang [facility] 350.1.13.10 Care [place] 4.2.7.2.686 Professio [phone] nal [address] Results Test Description Test Time Test Comments Results Result Comments Source CBC WITH DIFF 2021-05-24 04:53:50 Test Item Value Reference Range Interpretation Comme nts WBC (test code = 6690-2) See_Comment H [A utomated message] The system which SpecifiedBy nerated this result transmit estella reference range: 4.30 - 1 1.10 10*3/?L. The reference r johanna was not used to interpr et this result as normal/abnor mal. RBC (test code = 789-8) See_Comment [Au tomated message] The system which SpecifiedBy nerated this result transmit estella reference range: 3.93 - 5 .25 10*6/?L. The reference r johanna was not used to interpr et this result as normal/abnor mal. HGB (test code = 718-7) 12.5 g/dL 11.6-15.0 HCT (test code = 4544-3) 40.2 % 35.7-45.2 MCV (test code = 787-2) 83.2 fL 80.6-95.5 MCH (test code = 785-6) 25.9 pg 25.9-32.8 MCHC (test code = 786-4) 31.1 g/dL 31.6-35.1 L RDW-SD (test code = 55574-0) 40.6 fL 39.0-49.9 RDW-CV (test code = 788-0) 13.4 % 12.0-15.5 PLT (test code = 777-3) See_Comment H [Au tomated message] The system which ge nerated this result transmit estella reference range: 166 - 35 8 10*3/?L. The reference range was not used to interpret th is result as normal/abnormal . MPV (test code = 56658-8) 10.0 fL 9.5-12.9 NRBC/100 WBC (test code = See_Comment [ Automated message] The [id number]) system which ge nerated this result transmit estella reference range: 0.0 - 10 .0 /100 WBCs. The reference r johnana was not used to interpr et this result as normal/abnor mal. NRBC x10^3 (test code = <0.01 See_Comment [Au tomated message] The [id number]) system which ge nerated this result transmit estella reference range: 10*3/?L. The reference range was not u sed to interpret this result as normal/abnormal . GRAN MAT (NEUT) % (test code 72.2 % = 770-8) IMM GRAN % (test code = 0.40 % [id number]) LYMPH % (test code = 736-9) 21.1 % MONO % (test code = 5905-5) 4.8 % EOS % (test code = 713-8) 0.9 % BASO % (test code = 706-2) 0.6 % GRAN MAT x10^3(ANC) (test 9.20 10*3/uL 1.88-7.09 H code = 8258203701) IMM GRAN x10^3 (test code = 0.05 10*3/uL 0.00-0.06 [id number]) LYMPH x10^3 (test code = 2.68 10*3/uL 1.32-3.29 731-0) MONO x10^3 (test code = 0.61 10*3/uL 0.33-0.92 742-7) EOS x10^3 (test code = 0.11 10*3/uL 0.03-0.39 711-2) BASO x10^3 (test code = 0.08 10*3/uL 0.01-0.07 H 704-7) Lab Interpretation (test Abnormal code = 59345-8) [facility]
--- NOTE | 2021-07-03 08:55 | EDPHYS ---
Physician Documentation [facility] Name: Rosanne Sparks Age: 25 yrs Sex: Female : 1995 Arrival Date: 07/03/2021 Time: 08:29 Bed 12 Private MD: ED Physician Lorri Plascencia HPI: 07/03 08:49 This 25 yrs old Female presents to ER via Ambulatory with complaints of ma2 infection-antibiotics not working. 08:49 The patient or guardian reports pain. 25 healthy female, here with left thumb ma2 paronychia for 3 days, she saw PCP 2 days ago got amoxicillin, pain did not improve so she decided to come to ER, there is no worsening of symptoms, no worsening of pain. There is no draining of pus, no fever, initially blood pressure was 120, however when I interviewed the patient pulse was 80 bpm.. 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 - Social history:: Smoking status: Patient denies any tobacco usage or history of. - Family history:: not pertinent. ROS: 08:49 Constitutional: Negative for fever, chills, and weight loss. ma2 08:49 All other systems are negative. Exam: 08:49 Constitutional: This is a well developed, well nourished patient who is awake, alert, ma2 and in no acute distress. Head/Face: Normocephalic, atraumatic. Eyes: Pupils equal round and reactive to light, extra-ocular motions intact. Lids and lashes normal. Conjunctiva and sclera are non-icteric and not injected. Cornea within normal limits. Periorbital areas with no swelling, redness, or edema. ENT: Nares patent. No nasal discharge, no septal abnormalities noted. Tympanic membranes are normal and external auditory canals are clear. Oropharynx with no redness, swelling, or masses, exudates, or evidence of obstruction, uvula midline. Mucous membranes moist. Neck: Trachea midline, no thyromegaly or masses palpated, and no cervical lymphadenopathy. Supple, full range of motion without nuchal rigidity, or vertebral point tenderness. No Meningismus. Chest/axilla: Normal chest wall appearance and motion. Nontender with no deformity. No lesions are appreciated. Cardiovascular: Regular rate and rhythm with a normal S1 and S2. No gallops, murmurs, or rubs. Normal PMI, no JVD. No pulse deficits. Respiratory: Lungs have equal breath sounds bilaterally, clear to auscultation and percussion. No rales, rhonchi or wheezes noted. No increased work of breathing, no retractions or nasal flaring. Abdomen/GI: Soft, non-tender, with normal bowel sounds. No distension or tympany. No guarding or rebound. No evidence of tenderness throughout. Skin: Warm, dry with normal turgor. Normal color with no rashes, no lesions, and no evidence of cellulitis. MS/ Extremity: Area of redness redness present on lateral aspect of left thumb nail mild about 1 x 1 cm no pus or fluctuance, pulses equal, no cyanosis. Neurovascular intact. Full, normal range of motion. Neuro: Awake and alert, GCS 15, oriented to person, place, time, and situation. Cranial nerves II-XII grossly intact. Motor strength 5/5 in all extremities. Sensory grossly intact. Cerebellar exam normal. Normal gait. Vital Signs: 08:34 BP 122 / 73; Pulse 123; Resp 18 S; Temp 97.5(TE); Pulse Ox 98% on R/A; Weight 98.43 kg jd3 (R); Height 5 ft. 0 in. (152.40 cm) (R); Pain 10/10; 08:55 Pulse 113; Resp 16; Temp 97.4; Pulse Ox 99% ; jh5 08:34 Body Mass Index 42.38 (98.43 kg, 152.40 cm) jd3 MDM: 08:42 Patient medically screened. ma2 08:49 Differential diagnosis: contusion, abrasion, tendonitis, This is a dry paronychia with ma2 no pus present on left thumb, small area, she has been on amoxicillin which likely will not cover common bacteria involved with this kind of infection, will prescribe clindamycin, she will follow up with a hand surgeon and 1 to 2 days. Data reviewed: vital signs, nurses notes, EMS record. Counseling: I had a detailed discussion with the patient and/or guardian regarding: the historical points, exam findings, and any diagnostic results supporting the discharge/admit diagnosis, the presence of at least one elevated blood pressure reading (>120/80) during this emergency department visit, the need for outpatient follow up. Response to treatment: the patient's symptoms have markedly improved after treatment. Administered Medications: 08:48 Drug: Clindamycin 300 mg Route: PO; jh5 Disposition Summary: 07/03/21 08:54 Discharge Ordered Location: Home ma2 Condition: Stable ma2 Diagnosis - Cellulitis of finger - Left thumb paronychia with no abscess ma2 Followup: ma2 - With: Kumar Goncalves MD - When: Tomorrow - Reason: If symptoms return, Continuance of care Discharge Instructions: - Discharge Summary Sheet ma2 - Paronychia, Oliu-bq-Cbvh ma2 Forms: - Medication Reconciliation Form ma2 - Thank You Letter ma2 - Antibiotic Education ma2 - Prescription Opioid Use ma2 Prescriptions: - Clindamycin HCl 300 mg Oral Capsule - take 1 capsule by ORAL route every 6 hours for 10 days; 40 capsule; Refills: 0, ma2 Product Selection Permitted - Diclofenac Sodium 75 mg Oral Tablet Sustained Release - take 1 tablet by ORAL route 2 times per day; 30 tablet; Refills: 0, Product ut2 Selection Permitted Signatures: Tristin Acosta RN RN jd3 Lorri Plascencia MD MD ut2 Suzanne Payan RN RN jh5
--- NOTE | 2021-07-03 08:55 | ER ---
Nurse's Notes [facility] Name: Rosanne Sparks Age: 25 yrs Sex: Female : 1995 Arrival Date: 07/03/2021 Time: 08:29 Bed 12 Private MD: Diagnosis: Cellulitis of finger-Left thumb paronychia with no abscess Presentation: 07/03 08:32 Chief complaint: Patient states: "I have this infected finger and I have been taking jd3 antibiotics for 3 days now and it isn't helping. left thumb.". Coronavirus screen: At this time, the client does not indicate any symptoms associated with coronavirus-19. Ebola Screen: No symptoms or risks identified at this time. Initial Sepsis Screen: Does the patient meet any 2 criteria? No. Patient's initial sepsis screen is negative. Does the patient have a suspected source of infection? No. Patient's initial sepsis screen is negative. Risk Assessment: Do you want to hurt yourself or someone else? Patient reports no desire to harm self or others. Onset of symptoms was July 03, 2021. 08:32 Method Of Arrival: Ambulatory jd3 08:32 Acuity: GARRY 3 jd3 Triage Assessment: 08:46 General: Appears in no apparent distress. comfortable, Behavior is calm, cooperative, jh5 appropriate for age. Pain:. 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 - Social history:: Smoking status: Patient denies any tobacco usage or history of. - Family history:: not pertinent. Screenin:45 Abuse screen: Denies threats or abuse. Denies injuries from another. Nutritional jh5 screening: No deficits noted. Tuberculosis screening: No symptoms or risk factors identified. Fall Risk None identified. Vital Signs: 08:34 BP 122 / 73; Pulse 123; Resp 18 S; Temp 97.5(TE); Pulse Ox 98% on R/A; Weight 98.43 kg j (R); Height 5 ft. 0 in. (152.40 cm) (R); Pain 10/10; 08:55 Pulse 113; Resp 16; Temp 97.4; Pulse Ox 99% ; jh5 08:34 Body Mass Index 42.38 (98.43 kg, 152.40 cm) [facility] ED Course: 08:29 Patient arrived in ED. as 08:33 Triage completed. j 08:35 Arm band placed on. [facility] 08:42 Lorri Plascencia MD is Attending Physician. [facility] 08:44 Suzanne Payan, RN is Primary Nurse. [facility] 08:45 Patient has correct armband on for positive identification. Bed in low position. Call [facility] light in reach. Side rails up X 1. 08:45 No provider procedures requiring assistance completed. [facility] 08:53 Kumar Goncalves MD is Referral Physician. [facility] 09:02 Patient did not have IV access during this emergency room visit. [facility] Administered Medications: 08:48 Drug: Clindamycin 300 mg Route: PO; [facility] Outcome: 08:54 Discharge ordered by . [facility] 09:02 Discharged to home ambulatory. [facility] 09:02 Condition: good 09:02 Discharge instructions given to patient. 09:02 Patient left the ED. [facility] Signatures: Jo Jose Jonathon, RN RN [facility] Lorri Plascencia MD MD nmSuzanne Bledsoe, JOHN RN [facility] Corrections: (The following items were deleted from the chart) 08:35 08:32 Chief complaint: Patient states: "I have this infected finger and I have been jd3 taking antibiotics for 3 days now and it isn't helping." j 08:36 08:32 Acuity: GARRY 4 [place] [address] 08:36 08:34 Pulse 123bpm; Resp 18bpm; Spontaneous; Pulse Ox 98% RA; Temp 97.5F Temporal; jd3 98.43 kg Reported; Height 5 ft. 0 in. Reported; BMI: 42.3; Pain 10/10; jd3
[2021-07-03 09:08] VITALS: BP 122/73
[2021-07-03 09:10] VITALS: TEMP 97.4; O2SAT 99
== END 2021-07-03 09:02 | disposition home or self-care (01) ==
LOC: ER 08:25
DX: L03.012 Cellulitis of left finger (principal); E11.9 Type 2 diabetes mellitus without complications
CPT/HCPCS: 99283

== ENCOUNTER → 2023-07-27 | Emergency (ER) | payer OTHER ==
--- OUTSIDE RECORDS SUMMARY | 2023-07-27 10:12 | XMS REPORT | Continuity of Care Document ---
Author Name Unknown Address [address] [facility] [address] [place] [address] [facility] Address [address] [facility] [address] [place] [address] Care Team Providers Care Lead Setter Name Role Phone Kelly Lopez Primary Care Physician SUPRIYA MCGUIRE Attending Clinician SUPRIYA Perez Attending Clinician OBEY Calvo Attending Clinician Unavailable TIAN CARO Attending Clinician BABAR Boykin Attending Clinician Unavailable TONE HENDERSON Attending Clinician Unavailable TONE HENDERSON Attending Clinician Unavailable NICKY PECK Attending Clinician Unavailable Nicky Serrano Attending Clinician [phone] Ian [facility] HENNY, Obey M Attending Clinician Tian Caro MD Attending Clinician [phone] Kelly Lopez Attending Clinician [phone] Doctor Unassigned, [place] Attending Clinician U navailable Lab, Ang - Db Attending Clinician Unavailable NISHANT CHAPMAN Attending Clinician Unavailable KELLY REYNAGA Attending Clinician Unavailable Nurse, [facility] Attending Clinician Un available MONTSERRAT RUBIN Attending Clinician Unavailable Gordy LOPEZ, Emily Attending Clinician Unavaillazaro Chapman MD, Nishant Goins Attending Clinician [phone] MARLEY CAMARILLO Attending Clinician UnavailMarley Duron MD Attending Clinician [phone] Pob, [facility] Lab Main Attending Clinician Unavaillazaro Duong Attending Clinician Unavailab CARMEN House Attending Clinician UnavailCem Slater MD Attending Clinician [phone] CEM PORTILLO Attending Clinician UnavailMirtha Magaña LVN Attending Clinician Anne Foster MA Attending Clinician UnavailNj Veliz MD Attending Clinician [phone] [place] Attending Clinician MALACHI Young Attending Clinician Unavailable Malachi Mejia Attending Clinician [phone] Burke POSEY Attending Clinician Unavailable Burke Strauss Attending Clinician [phone] Ale LOPEZ, Susan Attending Clinician Unavailab le Provider, [facility] Attending Clinician Unavailable Viola Roberts Attending Clinician [phone] Celina Uribe MD Attending Clinician [phone] VIOLA SPIVEY Attending Clinician Unavailable Only, Ang Db Test Attending Clinician UnavailCELINA Verduzco Attending Clinician Unavailable Vaccine, Ang Db Cbc Fam Attending Clinician Unav ailable Unknown, Attending Attending Clinician Unavailab le UNKNOWN, ATTENDING Attending Clinician Unavailab SIVAKUMAR Gamez Attending Clinician UnavailIsabel Jaeger RN Attending Clinician Unavailable Diana Mahajan Attending Clinician [phone] Provider, [facility] Attending Clinician Un available STEVE MURO Attending Clinician Unavailable NICKY PECK Admitting Clinician Unavailable MARLEY CAMARILLO Admitting Clinician Unavaillazaro GARCIA_Madhu_Nithin_ Admitting Clinician Unavailab le Payers Payer Name Policy Type Policy Number Effective Date Expirati on Date Source [facility] [id number] 00:00:00 [facility] [id number] Problems Condition Name Condition Details Condition Category Status Onset Date Resolution Date Last Treatment Date Treating Clinician Comments Source Type 2 diabetes mellitus without complicati on, without long-term current use of insulin Type 2 diabetes mellitus without complicati on, without long-term current use of insulin Disease Active 3 00:00: 00 [facility] Morbid obesity Morbid obesity Disease Active 3 00:00: 00 [facility] Pain in left foot Pain in Left Foot Problem Active 03-05 00:00: 00 [facility] Plantar fasciitis of left foot Plantar Fasciitis of Left Foot Problem Active 03-05 00:00: 00 [facility] Subacute maxillary sinusitis Subacute maxillary sinusitis Disease Active 11-15 00:00: 00 [facility] Left arm pain Left arm pain Disease Active 11-15 00:00: 00 [facility] Acute otitis media, bilateral Acute otitis media, bilateral Disease Active 11-15 00:00: 00 [facility] Allergies, Adverse Reactions, Alerts Allergy Name Allergy Type Status Severity Reaction(s) Onset Date Inactive Date Treating Clinician Comments Source NO KNOWN ALLERGIE S Drug Class Active [facility] Social History Social Habit Start Date Stop Date Quantity Comments Source History of tobacco use Passive smoker [facility] Gender identity [facility] 2023-07-24 00:00:00 2023-07-24 00:00:00 Lifetime non-drinker (finding) [facility] History of Social function 2023-05-15 00:00:00 2023-05-15 00:00:00 [facility] Exposure to SARS-CoV-2 (event) 2022-11-06 00:00:00 2022-11-16 16:22:00 Not sure [facility] Tobacco use and exposure 2022-04-17 00:00:00 2022-04-17 00:00:00 Smokeless tobacco non-user [facility] Sex Assigned At 1995 00:00:00 1995 00:00:00 [facility] Smoking Status Start Date Stop Date Source Never smoked tobacco [facility] Medications Ordered Medication Name Filled Medication Name Start Date Stop Date Current Medication? Ordering Clinician Indication Dosage Frequency Signature (SIG) Comments Components Source Cholecalcif fortunato, Vitamin D3, (VITAMIN D3) 50 mcg (2,000 unit) tablet 07-23 00:00: 00 Yes [id number] Take 1 tablet by mouth in the morning. [facility] Cholecalcif fortunato, Vitamin D3, (VITAMIN D3) 50 mcg (2,000 unit) tablet 07-23 00:00: 00 Yes [id number] Take 1 tablet by mouth in the morning. [facility] Cholecalcif fortunato, Vitamin D3, (VITAMIN D3) 50 mcg (2,000 unit) tablet 07-23 00:00: 00 Yes [id number] Take 1 tablet by mouth in the morning. [facility] Cholecalcif fortunato, Vitamin D3, (VITAMIN D3) 50 mcg (2,000 unit) tablet 07-23 00:00: 00 Yes [id number] Take 1 tablet by mouth in the morning. [facility] ergocalcife rol, vitamin d2, 1,250 mcg (50,000 unit) capsule 07-15 00:00: 00 Yes [id number] Take 1 capsule by mouth weekly. [facility] ergocalcife rol, vitamin d2, 1,250 mcg (50,000 unit) capsule 2 00:00: 00 07-23 00:00 :00 No [id number] Take 1 capsule by mouth weekly. [facility] ergocalcife rol, vitamin d2, 1,250 mcg (50,000 unit) capsule 2 00:00: 00 07-23 00:00 :00 No [id number] Take 1 capsule by mouth weekly. [facility] semaglutide (OZEMPIC) 1 mg/dose (4 mg/3 mL) PnIj 0 18 00:00: 00 Yes [id number] 1mg inject 1 mg under the skin weekly. [facility] semaglutide (OZEMPIC) 1 mg/dose (4 mg/3 mL) PnIj 0 -18 00:00: 00 Yes [id number] 1mg inject 1 mg under the skin weekly. [facility] semaglutide (OZEMPIC) 1 mg/dose (4 mg/3 mL) PnIj 0 -18 00:00: 00 Yes [id number] 1mg inject 1 mg under the skin weekly. [facility] semaglutide (OZEMPIC) 1 mg/dose (4 mg/3 mL) PnIj 0 -18 00:00: 00 Yes [id number] 1mg inject 1 mg under the skin weekly. [facility] semaglutide (OZEMPIC) 1 mg/dose (4 mg/3 mL) PnIj 0 -18 00:00: 00 Yes [id number] 1mg inject 1 mg under the skin weekly. [facility] semaglutide (OZEMPIC) 1 mg/dose (4 mg/3 mL) PnIj 0 -18 00:00: 00 Yes [id number] 1mg inject 1 mg under the skin weekly. [facility] semaglutide (OZEMPIC) 1 mg/dose (4 mg/3 mL) PnIj 40 1-18 00:00: 00 Yes [id number] 1mg inject 1 mg under the skin weekly. [facility] cefUROXime 250 mg tablet 2023-0 1-10 00:00: 00 06-25 05:59 :00 Yes [id number] 250mg Take 1 tablet by mouth in the morning and 1 tablet in the evening. Do all this for 7 days. [facility] cefUROXime 250 mg tablet 2023-0 1-10 00:00: 00 06-25 05:59 :00 Yes [id number] 250mg Take 1 tablet by mouth in the morning and 1 tablet in the evening. Do all this for 7 days. [facility] cefUROXime 250 mg tablet 2023-0 1-10 00:00: 00 06-25 05:59 :00 Yes [id number] 250mg Take 1 tablet by mouth in the morning and 1 tablet in the evening. Do all this for 7 days. [facility] semaglutide (OZEMPIC) 1 mg/dose (4 mg/3 mL) Ij 2022- 2-15 00:00: 00 Yes [id number] 1mg inject 1 mg under the skin weekly. [facility] semaglutide (OZEMPIC) 1 mg/dose (4 mg/3 mL) Ij 3-1 2-15 00:00: 00 Yes [id number] 1mg inject 1 mg under the skin weekly. [facility] semaglutide (OZEMPIC) 1 mg/dose (4 mg/3 mL) Ij 2022-1 2-15 00:00: 00 Yes [id number] 1mg inject 1 mg under the skin weekly. [facility] semaglutide (OZEMPIC) 1 mg/dose (4 mg/3 mL) Ij 3-1 2-15 00:00: 00 Yes [id number] 1mg inject 1 mg under the skin weekly. [facility] semaglutide (OZEMPIC) 1 mg/dose (4 mg/3 mL) Ij 2022- 2-15 00:00: 00 Yes [id number] 1mg inject 1 mg under the skin weekly. [facility] semaglutide (OZEMPIC) 1 mg/dose (4 mg/3 mL) Ij 08-06 2-15 00:00: 00 Yes [id number] 1mg inject 1 mg under the skin weekly. [facility] semaglutide (OZEMPIC) 1 mg/dose (4 mg/3 mL) Ij 2022-06 2-15 00:00: 00 Yes [id number] 1mg inject 1 mg under the skin weekly. [facility] semaglutide (OZEMPIC) 1 mg/dose (4 mg/3 mL) [facility] 2022-06 2- 00:00: 00 Yes [id number] 1mg inject 1 mg under the skin weekly. [facility] semaglutide (OZEMPIC) 1 mg/dose (4 mg/3 mL) [facility] 2022-06 2 00:00: 00 Yes [id number] 1mg inject 1 mg under the skin weekly. [facility] semaglutide (OZEMPIC) 1 mg/dose (4 mg/3 mL) [facility] 2022-06 00:00: 00 06-25 00:00 :00 No [id number] 1mg inject 1 mg under the skin weekly. [facility] ergocalcife rol, vitamin d2, 1,250 mcg (50,000 unit) capsule 2022-06 00:00: 00 Yes [id number] Take 1 capsule by mouth weekly. [facility] ergocalcife rol, vitamin d2, 1,250 mcg (50,000 unit) capsule 2022-06 00:00: 00 Yes [id number] Take 1 capsule by mouth weekly. [facility] ergocalcife rol, vitamin d2, 1,250 mcg (50,000 unit) capsule 2022-06 00:00: 00 Yes [id number] Take 1 capsule by mouth weekly. [facility] ergocalcife rol, vitamin d2, 1,250 mcg (50,000 unit) capsule 2022-06 00:00: 00 Yes [id number] Take 1 capsule by mouth weekly. [facility] ergocalcife rol, vitamin d2, 1,250 mcg (50,000 unit) capsule 2022-06 00:00: 00 Yes [id number] Take 1 capsule by mouth weekly. [facility] ergocalcife rol, vitamin d2, 1,250 mcg (50,000 unit) capsule 2022-06 00:00: 00 Yes [id number] Take 1 capsule by mouth weekly. [facility] ergocalcife rol, vitamin d2, 1,250 mcg (50,000 unit) capsule 2022-06 00:00: 00 Yes [id number] Take 1 capsule by mouth weekly. [facility] ergocalcife rol, vitamin d2, 1,250 mcg (50,000 unit) capsule 2022-06 00:00: 00 Yes [id number] Take 1 capsule by mouth weekly. [facility] ergocalcife rol, vitamin d2, 1,250 mcg (50,000 unit) capsule 2022-06 00:00: 00 Yes [id number] Take 1 capsule by mouth weekly. [facility] ergocalcife rol, vitamin d2, 1,250 mcg (50,000 unit) capsule 2022-06 00:00: 00 Yes [id number] Take 1 capsule by mouth weekly. [facility] ergocalcife rol, vitamin d2, 1,250 mcg (50,000 unit) capsule 2022-06 00:00: 00 Yes [id number] Take 1 capsule by mouth weekly. [facility] ergocalcife rol, vitamin d2, 1,250 mcg (50,000 unit) capsule 2022-06 00:00: 00 Yes [id number] Take 1 capsule by mouth weekly. [facility] ergocalcife rol, vitamin d2, 1,250 mcg (50,000 unit) capsule 2022-06 00:00: 00 Yes [id number] Take 1 capsule by mouth weekly. [facility] ergocalcife rol, vitamin d2, 1,250 mcg (50,000 unit) capsule 2022-06 00:00: 00 Yes [id number] Take 1 capsule by mouth weekly. [facility] ergocalcife rol, vitamin d2, 1,250 mcg (50,000 unit) capsule 2022-06 00:00: 00 Yes [id number] Take 1 capsule by mouth weekly. [facility] ergocalcife rol, vitamin d2, 1,250 mcg (50,000 unit) capsule 2022-06 00:00: 00 Yes [id number] Take 1 capsule by mouth weekly. [facility] ergocalcife rol, vitamin d2, 1,250 mcg (50,000 unit) capsule 2022-06 00:00: 00 Yes [id number] Take 1 capsule by mouth weekly. [facility] ergocalcife rol, vitamin d2, 1,250 mcg (50,000 unit) capsule 2022-06 00:00: 00 07-15 00:00 :00 No [id number] Take 1 capsule by mouth weekly. [facility] semaglutide (OZEMPIC) 1 mg/dose (4 mg/3 mL) [facility] 2022-06 0 00:00: 00 Yes [id number] 1mg inject 1 mg under the skin weekly. [facility] semaglutide (OZEMPIC) 1 mg/dose (4 mg/3 mL) Ij 2022-06 0 00:00: 00 Yes [id number] 1mg inject 1 mg under the skin weekly. [facility] semaglutide (OZEMPIC) 1 mg/dose (4 mg/3 mL) [facility] 2022-06 0 00:00: 00 Yes [id number] 1mg inject 1 mg under the skin weekly. [facility] semaglutide (OZEMPIC) 1 mg/dose (4 mg/3 mL) Ij 2022- 0 00:00: 00 Yes [id number] 1mg inject 1 mg under the skin weekly. [facility] semaglutide (OZEMPIC) 1 mg/dose (4 mg/3 mL) Ij 3- 0- 00:00: 00 Yes [id number] 1mg inject 1 mg under the skin weekly. [facility] semaglutide (OZEMPIC) 1 mg/dose (4 mg/3 mL) PnIj 3- 0-19 00:00: 00 Yes [id number] 1mg inject 1 mg under the skin weekly. [facility] semaglutide (OZEMPIC) 1 mg/dose (4 mg/3 mL) Ij 2022- 0-19 00:00: 00 Yes [id number] 1mg inject 1 mg under the skin weekly. [facility] semaglutide (OZEMPIC) 1 mg/dose (4 mg/3 mL) Ij 2022- 0- 00:00: 00 Yes [id number] 1mg inject 1 mg under the skin weekly. [facility] semaglutide (OZEMPIC) 1 mg/dose (4 mg/3 mL) Ij 2022- 0- 00:00: 00 Yes [id number] 1mg inject 1 mg under the skin weekly. [facility] semaglutide (OZEMPIC) 1 mg/dose (4 mg/3 mL) Ij 2022- 0- 00:00: 00 Yes [id number] 1mg inject 1 mg under the skin weekly. [facility] semaglutide (OZEMPIC) 1 mg/dose (4 mg/3 mL) Ij 2022- 0- 00:00: 00 Yes [id number] 1mg inject 1 mg under the skin weekly. [facility] semaglutide (OZEMPIC) 1 mg/dose (4 mg/3 mL) Ij 2022- 0- 00:00: 00 05-22 00:00 :00 No [id number] 1mg inject 1 mg under the skin weekly. [facility] medroxyPROG ESTERone (DEPO-PROVE RA) syringe 150 mg 02-23 15:30: 00 02-23 14:44 :00 No [id number] 150mg [facility] medroxyPROG ESTERone (DEPO-PROVE RA) syringe 150 mg 2022-02-23 15:30: 00 02-23 14:44 :00 No [id number] 150mg 150 mg, Intramuscu lar, ONCE, 1 dose, On Thu02/23/23 at 1030, Routine [facility] semaglutide (OZEMPIC) 0.25 mg or 0.5 mg(2 mg/1.5 mL) PnIj 3-0 8- 00:00: 00 Yes [id number] .5mg inject 0.5 mg under the skin weekly. [facility] semaglutide (OZEMPIC) 0.25 mg or 0.5 mg(2 mg/1.5 mL) PnIj 3-0 8- 00:00: 00 Yes [id number] .5mg inject 0.5 mg under the skin weekly. [facility] semaglutide (OZEMPIC) 0.25 mg or 0.5 mg(2 mg/1.5 mL) PnIj 3-0 8- 00:00: 00 Yes [id number] .5mg inject 0.5 mg under the skin weekly. [facility] semaglutide (OZEMPIC) 0.25 mg or 0.5 mg(2 mg/1.5 mL) PnIj 3-0 8 00:00: 00 Yes [id number] .5mg inject 0.5 mg under the skin weekly. [facility] semaglutide (OZEMPIC) 0.25 mg or 0.5 mg(2 mg/1.5 mL) PnIj 3-0 8- 00:00: 00 Yes [id number] .5mg inject 0.5 mg under the skin weekly. [facility] semaglutide (OZEMPIC) 0.25 mg or 0.5 mg(2 mg/1.5 mL) PnIj 3-0 8- 00:00: 00 Yes [id number] .5mg inject 0.5 mg under the skin weekly. [facility] semaglutide (OZEMPIC) 0.25 mg or 0.5 mg(2 mg/1.5 mL) PnIj 3-0 8- 00:00: 00 Yes [id number] .5mg inject 0.5 mg under the skin weekly. [facility] semaglutide (OZEMPIC) 0.25 mg or 0.5 mg(2 mg/1.5 mL) PnIj 3-0 8- 00:00: 00 03-26 00:00 :00 No [id number] .5mg inject 0.5 mg under the skin weekly. [facility] semaglutide (OZEMPIC) 0.25 mg or 0.5 mg(2 mg/1.5 mL) PnIj 8-21 00:00: 00 03-26 00:00 :00 No [id number] .5mg inject 0.5 mg under the skin weekly. [facility] cefUROXime 250 mg tablet 12-24 00:00: 00 01-01 04:59 :00 No [id number] 250mg Take 1 tablet by mouth in the morning and 1 tablet in the evening. Do all this for 7 days. [facility] cefUROXime 250 mg tablet 12-24 00:00: 00 01-01 04:59 :00 No [id number] 250mg Take 1 tablet by mouth in the morning and 1 tablet in the evening. Do all this for 7 days. [facility] cefUROXime 250 mg tablet 12-24 00:00: 00 01-01 04:59 :00 No [id number] 250mg Take 1 tablet by mouth in the morning and 1 tablet in the evening. Do all this for 7 days. [facility] cefUROXime 250 mg tablet 12-24 00:00: 00 01-01 04:59 :00 No [id number] 250mg Take 1 tablet by mouth in the morning and 1 tablet in the evening. Do all this for 7 days. [facility] cefUROXime 250 mg tablet 12-24 00:00: 00 01-01 04:59 :00 No [id number] 250mg Take 1 tablet by mouth in the morning and 1 tablet in the evening. Do all this for 7 days. [facility] cefUROXime 250 mg tablet 12-24 00:00: 00 01-01 04:59 :00 No [id number] 250mg Take 1 tablet by mouth in the morning and 1 tablet in the evening. Do all this for 7 days. [facility] semaglutide (OZEMPIC) 0.25 mg or 0.5 mg(2 mg/1.5 mL) PnIj 3-0 7-13 00:00: 00 Yes [id number] .5mg inject 0.5 mg under the skin weekly. [facility] semaglutide (OZEMPIC) 0.25 mg or 0.5 mg(2 mg/1.5 mL) PnIj 3-0 7-13 00:00: 00 Yes [id number] .5mg inject 0.5 mg under the skin weekly. [facility] semaglutide (OZEMPIC) 0.25 mg or 0.5 mg(2 mg/1.5 mL) PnIj 3-0 7-13 00:00: 00 Yes [id number] .5mg inject 0.5 mg under the skin weekly. [facility] semaglutide (OZEMPIC) 0.25 mg or 0.5 mg(2 mg/1.5 mL) PnIj 3-0 7- 00:00: 00 Yes [id number] .5mg inject 0.5 mg under the skin weekly. [facility] semaglutide (OZEMPIC) 0.25 mg or 0.5 mg(2 mg/1.5 mL) PnIj 3-0 7- 00:00: 00 Yes [id number] .5mg inject 0.5 mg under the skin weekly. [facility] semaglutide (OZEMPIC) 0.25 mg or 0.5 mg(2 mg/1.5 mL) PnIj 3-0 7-13 00:00: 00 Yes [id number] .5mg inject 0.5 mg under the skin weekly. [facility] semaglutide (OZEMPIC) 0.25 mg or 0.5 mg(2 mg/1.5 mL) PnIj 3-0 7-13 00:00: 00 Yes [id number] .5mg inject 0.5 mg under the skin weekly. [facility] semaglutide (OZEMPIC) 0.25 mg or 0.5 mg(2 mg/1.5 mL) PnIj 3-0 7-13 00:00: 00 Yes [id number] .5mg inject 0.5 mg under the skin weekly. [facility] semaglutide (OZEMPIC) 0.25 mg or 0.5 mg(2 mg/1.5 mL) Ij 12-18 00:00: 00 Yes [id number] .5mg inject 0.5 mg under the skin weekly. [facility] semaglutide (OZEMPIC) 0.25 mg or 0.5 mg(2 mg/1.5 mL) Ij 12-18 00:00: 00 Yes [id number] .5mg inject 0.5 mg under the skin weekly. [facility] semaglutide (OZEMPIC) 0.25 mg or 0.5 mg(2 mg/1.5 mL) Ij 12-18 00:00: 00 01-26 00:00 :00 No [id number] .5mg inject 0.5 mg under the skin weekly. [facility] medroxyPROG ESTERone (DEPO-PROVE RA) syringe 150 mg 11-18 14:45: 00 11-18 13:54 :00 No [id number] 150mg [facility] medroxyPROG ESTERone (DEPO-PROVE RA) syringe 150 mg 11-18 14:45: 00 11-18 13:54 :00 No [id number] 150mg 150 mg, Intramuscu lar, ONCE, 1 dose, On Thu11/18/22 at 0945, Routine [facility] medroxyPROG ESTERone (DEPO-PROVE RA) syringe 150 mg 11-18 14:45: 00 11-18 13:54 :00 No [id number] [facility] medroxyPROG ESTERone (DEPO-PROVE RA) syringe 150 mg 11-18 14:45: 00 11-18 13:54 :00 No [id number] 150mg 150 mg, Intramuscu lar, ONCE, 1 dose, On Thu11/18/22 at 0945, Routine [facility] ferrous sulfate (IRON ORAL) 11-18 08:43: 18 Yes Take by mouth. [facility] ferrous sulfate (IRON ORAL) 0 11-18 08:43: 18 Yes Take by mouth. [facility] (IRON ORAL) 0 11-18 08:43: 18 Yes Take by mouth. [facility] ferrous [facility] (IRON ORAL) 0 11-18 08:43: 18 Yes Take by mouth. [facility] (IRON ORAL) 0 11-18 08:43: 18 Yes Take by mouth. [facility] ferrous [facility] (IRON ORAL) 0 11-18 08:43: 18 Yes Take by mouth. [facility] ferrous sulfate (IRON ORAL) 0 11-18 08:43: 18 Yes Take by mouth. [facility] ferrous [facility] (IRON ORAL) 0 11-18 08:43: 18 Yes Take by mouth. [facility] ferrous sulfate (IRON ORAL) 0 11-18 08:43: 18 Yes Take by mouth. [facility] ferrous sulfate (IRON ORAL) 0 11-18 08:43: 18 Yes Take by mouth. [facility] ferrous sulfate (IRON ORAL) 0 11-18 08:43: 18 Yes Take by mouth. [facility] ferrous sulfate (IRON ORAL) 0 11-18 08:43: 18 Yes Take by mouth. [facility] ferrous sulfate (IRON ORAL) 0 11-18 08:43: 18 Yes Take by mouth. [facility] ferrous [facility] (IRON ORAL) 0 11-18 08:43: 18 Yes Take by mouth. [facility] ferrous sulfate (IRON ORAL) 0 11-18 08:43: 18 Yes Take by mouth. [facility] ferrous sulfate (IRON ORAL) 0 11-18 08:43: 18 Yes Take by mouth. [facility] ferrous [facility] (IRON ORAL) 0 11-18 08:43: 18 Yes Take by mouth. [facility] ferrous sulfate (IRON ORAL) 0 11-18 08:43: 18 Yes Take by mouth. [facility] ferrous sulfate (IRON ORAL) 0 11-18 08:43: 18 Yes Take by mouth. [facility] ferrous sulfate (IRON ORAL) 0 11-18 08:43: 18 Yes Take by mouth. [facility] ferrous sulfate (IRON ORAL) 0 11-18 08:43: 18 Yes Take by mouth. [facility] ferrous sulfate (IRON ORAL) 0 11-18 08:43: 18 Yes Take by mouth. [facility] ferrous sulfate (IRON ORAL) 0 11-18 08:43: 18 Yes Take by mouth. [facility] ferrous sulfate (IRON ORAL) 0 11-18 08:43: 18 Yes Take by mouth. [facility] ferrous sulfate (IRON ORAL) 0 11-18 08:43: 18 Yes Take by mouth. [facility] f[facility]ous [facility] (IRON ORAL) 0 11-18 08:43: 18 Yes Take by mouth. [facility] ferrous sulfate (IRON ORAL) 0 11-18 08:43: 18 Yes Take by mouth. [facility] ferrous sulfate (IRON ORAL) 0 11-18 08:43: 18 Yes Take by mouth. [facility] ferrous sulfate (IRON ORAL) 0 11-18 08:43: 18 Yes Take by mouth. [facility] f[facility]ous [facility] (IRON ORAL) 0 11-18 08:43: 18 Yes Take by mouth. [facility] ferrous sulfate (IRON ORAL) 0 11-18 08:43: 18 Yes Take by mouth. [facility] ferrous sulfate (IRON ORAL) 0 11-18 08:43: 18 Yes Take by mouth. [facility] ferrous sulfate (IRON ORAL) 0 11-18 08:43: 18 Yes Take by mouth. [facility] ferrous [facility] (IRON ORAL) 0 11-18 08:43: 18 Yes Take by mouth. [facility] ferrous sulfate (IRON ORAL) 11-18 08:43: 18 Yes Take by mouth. [facility] ferrous sulfate (IRON ORAL) 11-18 08:43: 18 Yes Take by mouth. [facility] ferrous sulfate (IRON ORAL) 11-18 08:43: 18 Yes Take by mouth. [facility] ferrous sulfate (IRON ORAL) 11-18 08:43: 18 Yes Take by mouth. [facility] ferrous sulfate (IRON ORAL) 11-18 08:43: 18 Yes Take by mouth. [facility] ferrous sulfate (IRON ORAL) 11-18 08:43: 18 Yes Take by mouth. [facility] ferrous sulfate (IRON ORAL) 11-18 08:43: 18 Yes Take by mouth. [facility] ferrous sulfate (IRON ORAL) 11-18 08:43: 18 Yes Take by mouth. [facility] ferrous sulfate (IRON ORAL) 11-18 08:43: 18 Yes Take by mouth. [facility] ferrous sulfate (IRON ORAL) 11-18 08:43: 18 Yes Take by mouth. [facility] ferrous sulfate (IRON ORAL) 11-18 08:43: 18 Yes Take by mouth. [facility] ferrous sulfate (IRON ORAL) 11-18 08:43: 18 Yes Take by mouth. [facility] ferrous sulfate (IRON ORAL) 11-18 08:43: 18 Yes Take by mouth. [facility] ferrous sulfate (IRON ORAL) 11-18 08:43: 18 Yes Take by mouth. [facility] semaglutide (OZEMPIC) 0.25 mg or 0.5 mg(2 mg/1.5 mL) [facility] 11-12 00:00: 00 Yes [id number] .5mg inject 0.5 mg under the skin weekly. [facility] semaglutide (OZEMPIC) 0.25 mg or 0.5 mg(2 mg/1.5 mL) PnIj 2023-0 6- 00:00: 00 Yes [id number] .[id number] inject 0.5 mg under the skin weekly. [facility] semaglutide (OZEMPIC) 0.25 mg or 0.5 mg(2 mg/1.5 mL) PnIj 2023-0 6-07 00:00: 00 Yes [id number] .5mg inject 0.5 mg under the skin weekly. [facility] semaglutide (OZEMPIC) 0.25 mg or 0.5 mg(2 mg/1.5 mL) PnIj 3-0 6-07 00:00: 00 Yes [id number] .5mg inject 0.5 mg under the skin weekly. [facility] semaglutide (OZEMPIC) 0.25 mg or 0.5 mg(2 mg/1.5 mL) PnIj 3-0 6- 00:00: 00 Yes [id number] .5mg inject 0.5 mg under the skin weekly. [facility] semaglutide (OZEMPIC) 0.25 mg or 0.5 mg(2 mg/1.5 mL) PnIj 3-0 6- 00:00: 00 Yes [id number] .5mg inject 0.5 mg under the skin weekly. [facility] semaglutide (OZEMPIC) 0.25 mg or 0.5 mg(2 mg/1.5 mL) PnIj 3-0 6- 00:00: 00 12-18 00:00 :00 No [id number] .5mg inject 0.5 mg under the skin weekly. [facility] semaglutide (OZEMPIC) 0.25 mg or 0.5 mg(2 mg/1.5 mL) PnIj 2023-0 4-03 00:00: 00 Yes [id number] .5mg inject 0.5 mg under the skin weekly. [facility] semaglutide (OZEMPIC) 0.25 mg or 0.5 mg(2 mg/1.5 mL) PnIj 2023-0 4-03 00:00: 00 Yes [id number] .5mg inject 0.5 mg under the skin weekly. [facility] semaglutide (OZEMPIC) 0.25 mg or 0.5 mg(2 mg/1.5 mL) PnIj 3-0 4- 00:00: 00 Yes [id number] .5mg inject 0.5 mg under the skin weekly. [facility] semaglutide (OZEMPIC) 0.25 mg or 0.5 mg(2 mg/1.5 mL) PnIj 3-0 4- 00:00: 00 Yes [id number] .5mg inject 0.5 mg under the skin weekly. [facility] semaglutide (OZEMPIC) 0.25 mg or 0.5 mg(2 mg/1.5 mL) PnIj 3-0 4- 00:00: 00 Yes [id number] .5mg inject 0.5 mg under the skin weekly. [facility] semaglutide (OZEMPIC) 0.25 mg or 0.5 mg(2 mg/1.5 mL) PnIj 3-0 4- 00:00: 00 Yes [id number] .5mg inject 0.5 mg under the skin weekly. [facility] semaglutide (OZEMPIC) 0.25 mg or 0.5 mg(2 mg/1.5 mL) PnIj 3-0 4- 00:00: 00 Yes [id number] .5mg inject 0.5 mg under the skin weekly. [facility] semaglutide (OZEMPIC) 0.25 mg or 0.5 mg(2 mg/1.5 mL) PnIj 3-0 4- 00:00: 00 Yes [id number] .5mg inject 0.5 mg under the skin weekly. [facility] semaglutide (OZEMPIC) 0.25 mg or 0.5 mg(2 mg/1.5 mL) PnIj 3-0 4- 00:00: 00 Yes [id number] .5mg inject 0.5 mg under the skin weekly. [facility] semaglutide (OZEMPIC) 0.25 mg or 0.5 mg(2 mg/1.5 mL) PnIj 3-0 4- 00:00: 00 Yes [id number] .5mg inject 0.5 mg under the skin weekly. [facility] semaglutide (OZEMPIC) 0.25 mg or 0.5 mg(2 mg/1.5 mL) PnIj 09-08 00:00: 00 11-12 00:00 :00 No [id number] .5mg inject 0.5 mg under the skin weekly. [facility] semaglutide (OZEMPIC) 0.25 mg or 0.5 mg(2 mg/1.5 mL) Ij 09-08 00:00: 00 11-12 00:00 :00 No [id number] .5mg inject 0.5 mg under the skin weekly. [facility] medroxyPROG ESTERone (DEPO-PROVE RA) syringe 150 mg 08-12 18:15: 00 08-12 17:15 :00 No [id number] [facility] ESTERone (DEPO-PROVE RA) syringe 150 mg 08-12 18:15: 00 08-12 17:15 :00 No [id number] 150mg 150 mg, Intramuscu lar, ONCE, 1 dose, On Thu08/12/22 at 1215, Routine [facility] medroxyPROG ESTERone (DEPO-PROVE RA) syringe 150 mg 08-12 18:15: 00 08-12 17:15 :00 No [id number] [facility] medroxyPROG ESTERone (DEPO-PROVE RA) syringe 150 mg 08-12 18:15: 00 08-12 17:15 :00 No [id number] 150mg 150 mg, Intramuscu lar, ONCE, 1 dose, On Thu08/12/22 at 1215, Routine [facility] semaglutide (OZEMPIC) 0.25 mg or 0.5 mg(2 mg/1.5 mL) Ij 08-08 00:00: 00 Yes [id number] .25mg inject 0.25 mg under the skin weekly. [facility] semaglutide (OZEMPIC) 0.25 mg or 0.5 mg(2 mg/1.5 mL) PnIj 3-0 3- 00:00: 00 Yes [id number] .25mg inject 0.25 mg under the skin weekly. [facility] semaglutide (OZEMPIC) 0.25 mg or 0.5 mg(2 mg/1.5 mL) PnIj 3-0 3- 00:00: 00 Yes [id number] .25mg inject 0.25 mg under the skin weekly. [facility] semaglutide (OZEMPIC) 0.25 mg or 0.5 mg(2 mg/1.5 mL) PnIj 3-0 3- 00:00: 00 Yes [id number] .25mg inject 0.25 mg under the skin weekly. [facility] semaglutide (OZEMPIC) 0.25 mg or 0.5 mg(2 mg/1.5 mL) PnIj 3-0 3- 00:00: 00 Yes [id number] .25mg inject 0.25 mg under the skin weekly. [facility] semaglutide (OZEMPIC) 0.25 mg or 0.5 mg(2 mg/1.5 mL) PnIj 3-0 3- 00:00: 00 Yes [id number] .25mg inject 0.25 mg under the skin weekly. [facility] semaglutide (OZEMPIC) 0.25 mg or 0.5 mg(2 mg/1.5 mL) PnIj 3-0 3- 00:00: 00 09-08 00:00 :00 No [id number] .25mg inject 0.25 mg under the skin weekly. [facility] semaglutide (OZEMPIC) 0.25 mg or 0.5 mg(2 mg/1.5 mL) PnIj 3-0 3- 00:00: 00 09-08 00:00 :00 No [id number] .25mg inject 0.25 mg under the skin weekly. [facility] semaglutide (OZEMPIC) 0.25 mg or 0.5 mg(2 mg/1.5 mL) PnIj 3 00:00: 00 09-08 00:00 :00 No [id number] .25mg inject 0.25 mg under the skin weekly. [facility] metformin ER 750 mg 24 hr tablet 06-27 00:00: 00 Yes [id number] 750mg Take 1 tablet by mouth daily with breakfast. [facility] metformin ER 750 mg 24 hr tablet 06-27 00:00: 00 Yes [id number] 750mg Take 1 tablet by mouth daily with breakfast. [facility] metformin ER 750 mg 24 hr tablet 06-27 00:00: 00 Yes [id number] 750mg Take 1 tablet by mouth daily with breakfast. [facility] metformin ER 750 mg 24 hr tablet 06-27 00:00: 00 Yes [id number] 750mg Take 1 tablet by mouth daily with breakfast. [facility] metformin ER 750 mg 24 hr tablet 06-27 00:00: 00 Yes [id number] 750mg Take 1 tablet by mouth daily with breakfast. [facility] metformin ER 750 mg 24 hr tablet 06-27 00:00: 00 Yes [id number] 750mg Take 1 tablet by mouth daily with breakfast. [facility] metformin ER 750 mg 24 hr tablet 06-27 00:00: 00 Yes [id number] 750mg Take 1 tablet by mouth daily with breakfast. [facility] metformin ER 750 mg 24 hr tablet 06-27 00:00: 00 Yes [id number] 750mg Take 1 tablet by mouth daily with breakfast. [facility] metformin ER 750 mg 24 hr tablet 06-27 00:00: 00 Yes [id number] 750mg Take 1 tablet by mouth daily with breakfast. [facility] metformin ER 750 mg 24 hr tablet 06-27 00:00: 00 Yes [id number] 750mg Take 1 tablet by mouth daily with breakfast. [facility] metformin ER 750 mg 24 hr tablet 06-27 00:00: 00 Yes [id number] 750mg Take 1 tablet by mouth daily with breakfast. [facility] metformin ER 750 mg 24 hr tablet 06-27 00:00: 00 Yes [id number] 750mg Take 1 tablet by mouth daily with breakfast. [facility] metformin ER 750 mg 24 hr tablet 06-27 00:00: 00 09-08 00:00 :00 No [id number] 750mg Take 1 tablet by mouth daily with breakfast. [facility] metformin ER 750 mg 24 hr tablet 06-27 00:00: 00 09-08 00:00 :00 No [id number] 750mg Take 1 tablet by mouth daily with breakfast. [facility] metformin ER 750 mg 24 hr tablet 06-27 00:00: 00 09-08 00:00 :00 No [id number] 750mg Take 1 tablet by mouth daily with breakfast. [facility] metformin ER 750 mg 24 hr tablet 06-27 00:00: 00 06-27 00:00 :00 No [id number] 750mg Take 1 tablet by mouth daily with breakfast. [facility] metformin ER 750 mg 24 hr tablet 06-27 00:00: 00 06-27 00:00 :00 No [id number] 750mg Take 1 tablet by mouth daily with breakfast. [facility] medroxyPROG ESTERone (DEPO-PROVE RA) syringe 150 mg 2021-06 16:30: 00 05-19 15:52 :00 No [id number] 150mg [facility] medroxyPROG ESTERone (DEPO-PROVE RA) syringe 150 mg 2021-06 16:30: 00 05-19 15:52 :00 No [id number] 150mg 150 mg, Intramuscu lar, ONCE, 1 dose, On Thu05/19/22 at 1030, Routine [facility] medroxyPROG ESTERone (DEPO-PROVE RA) syringe 150 mg 2021-06 16:30: 00 05-19 15:52 :00 No [id number] 150mg [facility] medroxyPROG ESTERone (DEPO-PROVE RA) syringe 150 mg 2021-06 16:30: 00 05-19 15:52 :00 No [id number] 150mg 150 mg, Intramuscu lar, ONCE, 1 dose, On 05/19/22 at 1030, Routine [facility] triamcinolo ne acetonide 0.1 % cream 2021-06 00:00: 00 Yes [id number] Apply to area(s) 2 (two) times daily. [facility] ketoconazol e 2 % cream 2021-06 00:00: 00 Yes [id number] Apply to area(s) 2 (two) times daily. [facility] hydrOXYzine [facility] mg tablet 2021-06 00:00: 00 Yes [id number] 25mg Take 1 tablet by mouth every 6 (six) hours as needed for Itching. [facility] triamcinolo ne acetonide 0.1 % cream 2021-06 00:00: 00 Yes [id number] Apply to area(s) 2 (two) times daily. [facility] ketoconazol e 2 % cream 2021-06 00:00: 00 Yes [id number] Apply to area(s) 2 (two) times daily. [facility] hydrOXYzine 25 mg tablet 2021-06 00:00: 00 Yes [id number] 25mg Take 1 tablet by mouth every 6 (six) hours as needed for Itching. [facility] triamcinolo ne acetonide 0.1 % cream 2021-06 00:00: 00 Yes [id number] Apply to area(s) 2 (two) times daily. [facility] ketoconazol e 2 % cream 2021-06 00:00: 00 Yes [id number] Apply to area(s) 2 (two) times daily. [facility] hydrOXYzine 25 mg tablet 2021-06 00:00: 00 Yes [id number] 25mg Take 1 tablet by mouth every 6 (six) hours as needed for Itching. [facility] triamcinolo ne acetonide 0.1 % cream 2021-06 00:00: 00 Yes [id number] Apply to area(s) 2 (two) times daily. [facility] ketoconazol e 2 % cream 2021-06 00:00: 00 Yes [id number] Apply to area(s) 2 (two) times daily. [facility] hydrOXYzine 25 mg tablet 2021-06 00:00: 00 Yes [id number] 25mg Take 1 tablet by mouth every 6 (six) hours as needed for Itching. [facility] triamcinolo ne acetonide 0.1 % cream 2021-06 00:00: 00 Yes [id number] Apply to area(s) 2 (two) times daily. [facility] ketoconazol e 2 % cream 2021-06 00:00: 00 Yes [id number] Apply to area(s) 2 (two) times daily. [facility] hydrOXYzine 25 mg tablet 2021-06 00:00: 00 Yes [id number] 25mg Take 1 tablet by mouth every 6 (six) hours as needed for Itching. [facility] triamcinolo ne acetonide 0.1 % cream 2021-06 00:00: 00 Yes [id number] Apply to area(s) 2 (two) times daily. [facility] ketoconazol e 2 % cream 2021-06 00:00: 00 Yes [id number] Apply to area(s) 2 (two) times daily. [facility] hydrOXYzine 25 mg tablet 2021-06 00:00: 00 Yes [id number] 25mg Take 1 tablet by mouth every 6 (six) hours as needed for Itching. [facility] triamcinolo ne acetonide 0.1 % cream 2021-06 00:00: 00 Yes [id number] Apply to area(s) 2 (two) times daily. [facility] ketoconazol e 2 % cream 2021-06 00:00: 00 Yes [id number] Apply to area(s) 2 (two) times daily. [facility] hydrOXYzine [facility] mg tablet 2021-06 00:00: 00 Yes [id number] 25mg Take 1 tablet by mouth every 6 (six) hours as needed for Itching. [facility] triamcinolo ne acetonide 0.1 % cream 2021-06 00:00: 00 Yes [id number] Apply to area(s) 2 (two) times daily. [facility] ketoconazol e 2 % cream 2021-06 00:00: 00 Yes [id number] Apply to area(s) 2 (two) times daily. [facility] hydrOXYzine 25 mg tablet 2021-06 00:00: 00 Yes [id number] 25mg Take 1 tablet by mouth every 6 (six) hours as needed for Itching. [facility] triamcinolo ne acetonide 0.1 % cream 2021-06 00:00: 00 Yes [id number] Apply to area(s) 2 (two) times daily. [facility] ketoconazol e 2 % cream 2021-06 00:00: 00 Yes [id number] Apply to area(s) 2 (two) times daily. [facility] hydrOXYzine 25 mg tablet 2021-06 00:00: 00 Yes [id number] 25mg Take 1 tablet by mouth every 6 (six) hours as needed for Itching. [facility] triamcinolo ne acetonide 0.1 % cream 2021-06 00:00: 00 Yes [id number] Apply to area(s) 2 (two) times daily. [facility] ketoconazol e 2 % cream 2021-06 00:00: 00 Yes [id number] Apply to area(s) 2 (two) times daily. [facility] hydrOXYzine 25 mg tablet 2021-06 00:00: 00 Yes [id number] 25mg Take 1 tablet by mouth every 6 (six) hours as needed for Itching. [facility] triamcinolo ne acetonide 0.1 % cream 2021-06 00:00: 00 Yes [id number] Apply to area(s) 2 (two) times daily. [facility] ketoconazol e 2 % cream 2021-06 00:00: 00 Yes [id number] Apply to area(s) 2 (two) times daily. [facility] hydrOXYzine [facility] mg tablet 2021-06 00:00: 00 Yes [id number] 25mg Take 1 tablet by mouth every 6 (six) hours as needed for Itching. [facility] triamcinolo ne acetonide 0.1 % cream 2021-06 00:00: 00 Yes [id number] Apply to area(s) 2 (two) times daily. [facility] ketoconazol e 2 % cream 2021-06 00:00: 00 Yes [id number] Apply to area(s) 2 (two) times daily. [facility] hydrOXYzine [facility] mg tablet 2021-06 00:00: 00 Yes [id number] 25mg Take 1 tablet by mouth every 6 (six) hours as needed for Itching. [facility] triamcinolo ne acetonide 0.1 % cream 2021-06 00:00: 00 Yes [id number] Apply to area(s) 2 (two) times daily. [facility] ketoconazol e 2 % cream 2021-06 00:00: 00 Yes [id number] Apply to area(s) 2 (two) times daily. [facility] hydrOXYzine 25 mg tablet 2021-06 00:00: 00 Yes [id number] 25mg Take 1 tablet by mouth every 6 (six) hours as needed for Itching. [facility] triamcinolo ne acetonide 0.1 % cream 2021-06 00:00: 00 Yes [id number] Apply to area(s) 2 (two) times daily. [facility] ketoconazol e 2 % cream 2021-06 00:00: 00 Yes [id number] Apply to area(s) 2 (two) times daily. [facility] hydrOXYzine [facility] mg tablet 2021-06 00:00: 00 Yes [id number] 25mg Take 1 tablet by mouth every 6 (six) hours as needed for Itching. [facility] triamcinolo ne acetonide 0.1 % cream 2021-06 00:00: 00 Yes [id number] Apply to area(s) 2 (two) times daily. [facility] ketoconazol e 2 % cream 2021-06 00:00: 00 Yes [id number] Apply to area(s) 2 (two) times daily. [facility] hydrOXYzine 25 mg tablet 2021-06 00:00: 00 Yes [id number] 25mg Take 1 tablet by mouth every 6 (six) hours as needed for Itching. [facility] triamcinolo ne acetonide 0.1 % cream 2021-06 00:00: 00 Yes [id number] Apply to area(s) 2 (two) times daily. [facility] ketoconazol e 2 % cream 2021-06 00:00: 00 Yes [id number] Apply to area(s) 2 (two) times daily. [facility] hydrOXYzine 25 mg tablet 2021-06 00:00: 00 Yes [id number] 25mg Take 1 tablet by mouth every 6 (six) hours as needed for Itching. [facility] triamcinolo ne acetonide 0.1 % cream 2021-06 00:00: 00 Yes [id number] Apply to area(s) 2 (two) times daily. [facility] ketoconazol e 2 % cream 2021-06 00:00: 00 Yes [id number] Apply to area(s) 2 (two) times daily. [facility] hydrOXYzine 25 mg tablet 2021-06 00:00: 00 Yes [id number] 25mg Take 1 tablet by mouth every 6 (six) hours as needed for Itching. [facility] triamcinolo ne acetonide 0.1 % cream 2021-06 00:00: 00 Yes [id number] Apply to area(s) 2 (two) times daily. [facility] ketoconazol e 2 % cream 2021-06 00:00: 00 Yes [id number] Apply to area(s) 2 (two) times daily. [facility] hydrOXYzine 25 mg tablet 2021-06 00:00: 00 Yes [id number] 25mg Take 1 tablet by mouth every 6 (six) hours as needed for Itching. [facility] triamcinolo ne acetonide 0.1 % cream 2021-06 00:00: 00 Yes [id number] Apply to area(s) 2 (two) times daily. [facility] ketoconazol e 2 % cream 2021-06 00:00: 00 Yes [id number] Apply to area(s) 2 (two) times daily. [facility] hydrOXYzine 25 mg tablet 2021-06 00:00: 00 Yes [id number] 25mg Take 1 tablet by mouth every 6 (six) hours as needed for Itching. [facility] triamcinolo ne acetonide 0.1 % cream 2021-06 00:00: 00 Yes [id number] Apply to area(s) 2 (two) times daily. [facility] ketoconazol e 2 % cream 2021-06 00:00: 00 Yes [id number] Apply to area(s) 2 (two) times daily. [facility] hydrOXYzine 25 mg tablet 2021-06 00:00: 00 Yes [id number] 25mg Take 1 tablet by mouth every 6 (six) hours as needed for Itching. [facility] triamcinolo ne acetonide 0.1 % cream 2021-06 00:00: 00 Yes [id number] Apply to area(s) 2 (two) times daily. [facility] ketoconazol e 2 % cream 2021-06 00:00: 00 Yes [id number] Apply to area(s) 2 (two) times daily. [facility] hydrOXYzine 25 mg tablet 2021-06 00:00: 00 Yes [id number] 25mg Take 1 tablet by mouth every 6 (six) hours as needed for Itching. [facility] triamcinolo ne acetonide 0.1 % cream 2021-06 00:00: 00 Yes [id number] Apply to area(s) 2 (two) times daily. [facility] ketoconazol e 2 % cream 2021-06 00:00: 00 Yes [id number] Apply to area(s) 2 (two) times daily. [facility] hydrOXYzine [facility] mg tablet 2021-06 00:00: 00 Yes [id number] 25mg Take 1 tablet by mouth every 6 (six) hours as needed for Itching. [facility] triamcinolo ne acetonide 0.1 % cream 2021-06 00:00: 00 Yes [id number] Apply to area(s) 2 (two) times daily. [facility] ketoconazol e 2 % cream 2021-06 00:00: 00 Yes [id number] Apply to area(s) 2 (two) times daily. [facility] hydrOXYzine 25 mg tablet 2021-06 00:00: 00 Yes [id number] 25mg Take 1 tablet by mouth every 6 (six) hours as needed for Itching. [facility] triamcinolo ne acetonide 0.1 % cream 2021-06 00:00: 00 Yes [id number] Apply to area(s) 2 (two) times daily. [facility] ketoconazol e 2 % cream 2021-06 00:00: 00 Yes [id number] Apply to area(s) 2 (two) times daily. [facility] hydrOXYzine [facility] mg tablet 2021-06 00:00: 00 Yes [id number] 25mg Take 1 tablet by mouth every 6 (six) hours as needed for Itching. [facility] triamcinolo ne acetonide 0.1 % cream 2021-06 00:00: 00 Yes [id number] Apply to area(s) 2 (two) times daily. [facility] ketoconazol e 2 % cream 2021-06 00:00: 00 Yes [id number] Apply to area(s) 2 (two) times daily. [facility] hydrOXYzine 25 mg tablet 2021-06 00:00: 00 Yes [id number] 25mg Take 1 tablet by mouth every 6 (six) hours as needed for Itching. [facility] triamcinolo ne acetonide 0.1 % cream 2021-06 00:00: 00 Yes [id number] Apply to area(s) 2 (two) times daily. [facility] ketoconazol e 2 % cream 2021-06 00:00: 00 Yes [id number] Apply to area(s) 2 (two) times daily. [facility] hydrOXYzine [facility] mg tablet 2021-06 00:00: 00 Yes [id number] 25mg Take 1 tablet by mouth every 6 (six) hours as needed for Itching. [facility] triamcinolo ne acetonide 0.1 % cream 2021-06 00:00: 00 Yes [id number] Apply to area(s) 2 (two) times daily. [facility] ketoconazol e 2 % cream 2021-06 00:00: 00 Yes [id number] Apply to area(s) 2 (two) times daily. [facility] hydrOXYzine [facility] mg tablet 2021-06 00:00: 00 Yes [id number] 25mg Take 1 tablet by mouth every 6 (six) hours as needed for Itching. [facility] triamcinolo ne acetonide 0.1 % cream 2021-06 00:00: 00 Yes [id number] Apply to area(s) 2 (two) times daily. [facility] ketocon[facility] e 2 % cream 2021-06 00:00: 00 Yes [id number] Apply to area(s) 2 (two) times daily. [facility] hydrOXYzine 25 mg tablet 2021-06 00:00: 00 Yes [id number] 25mg Take 1 tablet by mouth every 6 (six) hours as needed for Itching. [facility] triamcinolo ne acetonide 0.1 % cream 2021-06 00:00: 00 Yes [id number] Apply to area(s) 2 (two) times daily. [facility] ketocon[facility] e 2 % cream 2021-06 00:00: 00 Yes [id number] Apply to area(s) 2 (two) times daily. [facility] hydrOXYzine 25 mg tablet 2021-06 00:00: 00 Yes [id number] 25mg Take 1 tablet by mouth every 6 (six) hours as needed for Itching. [facility] triamcinolo ne acetonide 0.1 % cream 2021-06 00:00: 00 Yes [id number] Apply to area(s) 2 (two) times daily. [facility] ketoconazol e 2 % cream 2021-06 00:00: 00 Yes [id number] Apply to area(s) 2 (two) times daily. [facility] hydrOXYzine 25 mg tablet 2021-06 00:00: 00 Yes [id number] 25mg Take 1 tablet by mouth every 6 (six) hours as needed for Itching. [facility] triamcinolo ne acetonide 0.1 % cream 2021-06 00:00: 00 Yes [id number] Apply to area(s) 2 (two) times daily. [facility] ketoconazol e 2 % cream 2021-06 00:00: 00 Yes [id number] Apply to area(s) 2 (two) times daily. [facility] hydrOXYzine 25 mg tablet 2021-06 00:00: 00 Yes [id number] 25mg Take 1 tablet by mouth every 6 (six) hours as needed for Itching. [facility] triamcinolo ne acetonide 0.1 % cream 2021-06 00:00: 00 Yes [id number] Apply to area(s) 2 (two) times daily. [facility] ketoconazol e 2 % cream 2021-06 00:00: 00 Yes [id number] Apply to area(s) 2 (two) times daily. [facility] hydrOXYzine 25 mg tablet 2021-06 00:00: 00 Yes [id number] 25mg Take 1 tablet by mouth every 6 (six) hours as needed for Itching. [facility] tri[facility]cin[facility] ne acetonide 0.1 % cream 2021-06 00:00: 00 Yes [id number] Apply to area(s) 2 (two) times daily. [facility] ket[facility] % cream 2021-06 00:00: 00 Yes [id number] Apply to area(s) 2 (two) times daily. [facility] hydrOXY[facility] mg tablet 2021-06 00:00: 00 Yes [id number] 25mg Take 1 tablet by mouth every 6 (six) hours as needed for Itching. [facility] triamcinolo ne acetonide 0.1 % cream 2021-06 00:00: 00 Yes [id number] Apply to area(s) 2 (two) times daily. [facility] ketoconazol e 2 % cream 2021-06 00:00: 00 Yes [id number] Apply to area(s) 2 (two) times daily. [facility] hydr[facility] mg tablet 2021-06 00:00: 00 Yes [id number] 25mg Take 1 tablet by mouth every 6 (six) hours as needed for Itching. [facility] triamcinolo ne acetonide 0.1 % cream 2021-06 00:00: 00 Yes [id number] Apply to area(s) 2 (two) times daily. [facility] ket[facility] % cream 2021-06 00:00: 00 Yes [id number] Apply to area(s) 2 (two) times daily. [facility] hydrOXYzine 25 mg tablet 2021-06 00:00: 00 Yes [id number] 25mg Take 1 tablet by mouth every 6 (six) hours as needed for Itching. [facility] triamcinolo ne acetonide 0.1 % cream 2021-06 00:00: 00 Yes [id number] Apply to area(s) 2 (two) times daily. [facility] % cream 2021-06 00:00: 00 Yes [id number] Apply to area(s) 2 (two) times daily. [facility] hydrOXYzine [facility] mg tablet 2021-06 00:00: 00 Yes [id number] 25mg Take 1 tablet by mouth every 6 (six) hours as needed for Itching. [facility] triamcinolo ne acetonide 0.1 % cream 2021-06 00:00: 00 Yes [id number] Apply to area(s) 2 (two) times daily. [facility] ketoconazol e 2 % cream 2021-06 00:00: 00 Yes [id number] Apply to area(s) 2 (two) times daily. [facility] hydrOXYzine 25 mg tablet 2021-06 00:00: 00 Yes [id number] 25mg Take 1 tablet by mouth every 6 (six) hours as needed for Itching. [facility] triamcinolo ne acetonide 0.1 % cream 2021-06 00:00: 00 Yes [id number] Apply to area(s) 2 (two) times daily. [facility] ketoconazol e 2 % cream 2021-06 00:00: 00 Yes [id number] Apply to area(s) 2 (two) times daily. [facility] hydr[facility] mg tablet 2021-06 00:00: 00 Yes [id number] 25mg Take 1 tablet by mouth every 6 (six) hours as needed for Itching. [facility] triamcinolo ne acetonide 0.1 % cream 2021-06 00:00: 00 Yes [id number] Apply to area(s) 2 (two) times daily. [facility] ketoconazol e 2 % cream 2021-06 00:00: 00 Yes [id number] Apply to area(s) 2 (two) times daily. [facility] hydrOXYzine 25 mg tablet 2021-06 00:00: 00 Yes [id number] 25mg Take 1 tablet by mouth every 6 (six) hours as needed for Itching. [facility] triamcinolo ne acetonide 0.1 % cream 2021-06 00:00: 00 Yes [id number] Apply to area(s) 2 (two) times daily. [facility] ketoconazol e 2 % cream 2021-06 00:00: 00 Yes [id number] Apply to area(s) 2 (two) times daily. [facility] hydrOXYzine 25 mg tablet 2021-06 00:00: 00 Yes [id number] 25mg Take 1 tablet by mouth every 6 (six) hours as needed for Itching. [facility] triamcinolo ne acetonide 0.1 % cream 2021-06 00:00: 00 Yes [id number] Apply to area(s) 2 (two) times daily. [facility] ketoconazol e 2 % cream 2021-06 00:00: 00 Yes [id number] Apply to area(s) 2 (two) times daily. [facility] hydrOXYzine 25 mg tablet 2021-06 00:00: 00 Yes [id number] 25mg Take 1 tablet by mouth every 6 (six) hours as needed for Itching. [facility] triamcinolo ne acetonide 0.1 % cream 2021-06 00:00: 00 Yes [id number] Apply to area(s) 2 (two) times daily. [facility] ketoconazol e 2 % cream 2021-06 00:00: 00 Yes [id number] Apply to area(s) 2 (two) times daily. [facility] hydrOXYzine 25 mg tablet 2021-06 00:00: 00 Yes [id number] 25mg Take 1 tablet by mouth every 6 (six) hours as needed for Itching. [facility] triamcinolo ne acetonide 0.1 % cream 2021-06 00:00: 00 Yes [id number] Apply to area(s) 2 (two) times daily. [facility] ketoconazol e 2 % cream 2021-06 00:00: 00 Yes [id number] Apply to area(s) 2 (two) times daily. [facility] hydrOXYzine [facility] mg tablet 2021-06 00:00: 00 Yes [id number] 25mg Take 1 tablet by mouth every 6 (six) hours as needed for Itching. [facility] triamcinolo ne acetonide 0.1 % cream 2021-06 00:00: 00 Yes [id number] Apply to area(s) 2 (two) times daily. [facility] ketoconazol e 2 % cream 2021-06 00:00: 00 Yes [id number] Apply to area(s) 2 (two) times daily. [facility] hydrOXYzine 25 mg tablet 2021-06 00:00: 00 Yes [id number] 25mg Take 1 tablet by mouth every 6 (six) hours as needed for Itching. [facility] triamcinolo ne acetonide 0.1 % cream 2021-06 00:00: 00 Yes [id number] Apply to area(s) 2 (two) times daily. [facility] ketoconazol e 2 % cream 2021-06 00:00: 00 Yes [id number] Apply to area(s) 2 (two) times daily. [facility] hydrOXYzine 25 mg tablet 2021-06 00:00: 00 Yes [id number] 25mg Take 1 tablet by mouth every 6 (six) hours as needed for Itching. [facility] triamcinolo ne acetonide 0.1 % cream 2021-06 00:00: 00 Yes [id number] Apply to area(s) 2 (two) times daily. [facility] ketoconazol e 2 % cream 2021-06 00:00: 00 Yes [id number] Apply to area(s) 2 (two) times daily. [facility] hydrOXYzine [facility] mg tablet 2021-06 00:00: 00 Yes [id number] 25mg Take 1 tablet by mouth every 6 (six) hours as needed for Itching. [facility] triamcinolo ne acetonide 0.1 % cream 2021-06 00:00: 00 Yes [id number] Apply to area(s) 2 (two) times daily. [facility] ketoconazol e 2 % cream 2021-06 00:00: 00 Yes [id number] Apply to area(s) 2 (two) times daily. [facility] hydrOXYzine 25 mg tablet 2021-06 00:00: 00 Yes [id number] 25mg Take 1 tablet by mouth every 6 (six) hours as needed for Itching. [facility] triamcinolo ne acetonide 0.1 % cream 2021-06 00:00: 00 Yes [id number] Apply to area(s) 2 (two) times daily. [facility] ketoconazol e 2 % cream 2021-06 00:00: 00 Yes [id number] Apply to area(s) 2 (two) times daily. [facility] hydrOXYzine [facility] mg tablet 2021-06 00:00: 00 Yes [id number] 25mg Take 1 tablet by mouth every 6 (six) hours as needed for Itching. [facility] triamcinolo ne acetonide 0.1 % cream 2021-06 00:00: 00 Yes [id number] Apply to area(s) 2 (two) times daily. [facility] ketoconazol e 2 % cream 2021-06 00:00: 00 Yes [id number] Apply to area(s) 2 (two) times daily. [facility] hydrOXYzine [facility] mg tablet 2021-06 00:00: 00 Yes [id number] 25mg Take 1 tablet by mouth every 6 (six) hours as needed for Itching. [facility] triamcinolo ne acetonide 0.1 % cream 2021-06 00:00: 00 Yes [id number] Apply to area(s) 2 (two) times daily. [facility] ketocon[facility] e [facility] % cream 2021-06 00:00: 00 Yes [id number] Apply to area(s) 2 (two) times daily. [facility] hydrOXYzine 25 mg tablet 2021-06 00:00: 00 Yes [id number] 25mg Take 1 tablet by mouth every 6 (six) hours as needed for Itching. [facility] triamcinolo ne acetonide 0.1 % cream 2021-06 00:00: 00 Yes [id number] Apply to area(s) 2 (two) times daily. [facility] ketocon[facility] e 2 % cream 2021-06 00:00: 00 Yes [id number] Apply to area(s) 2 (two) times daily. [facility] hydrOXYzine 25 mg tablet 2021-06 00:00: 00 Yes [id number] 25mg Take 1 tablet by mouth every 6 (six) hours as needed for Itching. [facility] triamcinolo ne acetonide 0.1 % cream 2021-06 00:00: 00 Yes [id number] Apply to area(s) 2 (two) times daily. [facility] ketocon[facility] e [facility] % cream 2021-06 00:00: 00 Yes [id number] Apply to area(s) 2 (two) times daily. [facility] hydrOXYzine 25 mg tablet 2021-06 00:00: 00 Yes [id number] 25mg Take 1 tablet by mouth every 6 (six) hours as needed for Itching. [facility] triamcinolo ne acetonide 0.1 % cream 2021-06 00:00: 00 Yes [id number] Apply to area(s) 2 (two) times daily. [facility] ketoconazol e 2 % cream 2021-06 00:00: 00 Yes [id number] Apply to area(s) 2 (two) times daily. [facility] hydrOXYzine [facility] mg tablet 2021-06 00:00: 00 Yes [id number] 25mg Take 1 tablet by mouth every 6 (six) hours as needed for Itching. [facility] triamcinolo ne acetonide 0.1 % cream 2021-06 00:00: 00 Yes [id number] Apply to area(s) 2 (two) times daily. [facility] ketoconazol e 2 % cream 2021-06 00:00: 00 Yes [id number] Apply to area(s) 2 (two) times daily. [facility] hydrOXYzine 25 mg tablet 2021-06 00:00: 00 Yes [id number] 25mg Take 1 tablet by mouth every 6 (six) hours as needed for Itching. [facility] triamcinolo ne acetonide 0.1 % cream 2021-06 00:00: 00 Yes [id number] Apply to area(s) 2 (two) times daily. [facility] ketoconazol e 2 % cream 2021-06 00:00: 00 Yes [id number] Apply to area(s) 2 (two) times daily. [facility] hydrOXYzine 25 mg tablet 2021-06 00:00: 00 Yes [id number] 25mg Take 1 tablet by mouth every 6 (six) hours as needed for Itching. [facility] triamcinolo ne acetonide 0.1 % cream 2021-06 00:00: 00 Yes [id number] Apply to area(s) 2 (two) times daily. [facility] ketoconazol e 2 % cream 2021-06 00:00: 00 Yes [id number] Apply to area(s) 2 (two) times daily. [facility] hydrOXYzine [facility] mg tablet 2021-06 00:00: 00 Yes [id number] 25mg Take 1 tablet by mouth every 6 (six) hours as needed for Itching. [facility] triamcinolo ne acetonide 0.1 % cream 2021-06 00:00: 00 Yes [id number] Apply to area(s) 2 (two) times daily. [facility] ketocon[facility] e [facility] % cream 2021-06 00:00: 00 Yes [id number] Apply to area(s) 2 (two) times daily. [facility] hydrOXYzine 25 mg tablet 2021-06 00:00: 00 Yes [id number] 25mg Take 1 tablet by mouth every 6 (six) hours as needed for Itching. [facility] triamcinolo ne acetonide 0.1 % cream 2021-06 00:00: 00 Yes [id number] Apply to area(s) 2 (two) times daily. [facility] ketoconazol e 2 % cream 2021-06 00:00: 00 Yes [id number] Apply to area(s) 2 (two) times daily. [facility] hydrOXYzine 25 mg tablet 2021-06 00:00: 00 Yes [id number] 25mg Take 1 tablet by mouth every 6 (six) hours as needed for Itching. [facility] triamcinolo ne acetonide 0.1 % cream 2021-06 00:00: 00 Yes [id number] Apply to area(s) 2 (two) times daily. [facility] ketoconazol e 2 % cream 2021-06 00:00: 00 Yes [id number] Apply to area(s) 2 (two) times daily. [facility] hydrOXYzine 25 mg tablet 2021-06 00:00: 00 Yes [id number] 25mg Take 1 tablet by mouth every 6 (six) hours as needed for Itching. [facility] triamcinolo ne acetonide 0.1 % cream 2021-06 00:00: 00 Yes [id number] Apply to area(s) 2 (two) times daily. [facility] ketoconazol e 2 % cream 2021-06 00:00: 00 Yes [id number] Apply to area(s) 2 (two) times daily. [facility] hydrOXYzine [facility] mg tablet 2021-06 00:00: 00 Yes [id number] 25mg Take 1 tablet by mouth every 6 (six) hours as needed for Itching. [facility] triamcinolo ne acetonide 0.1 % cream 2021-06 00:00: 00 Yes [id number] Apply to area(s) 2 (two) times daily. [facility] ketoconazol e 2 % cream 2021-06 00:00: 00 Yes [id number] Apply to area(s) 2 (two) times daily. [facility] hydrOXYzine 25 mg tablet 2021-06 00:00: 00 Yes [id number] 25mg Take 1 tablet by mouth every 6 (six) hours as needed for Itching. [facility] triamcinolo ne acetonide 0.1 % cream 2021-06 00:00: 00 Yes [id number] Apply to area(s) 2 (two) times daily. [facility] ketoconazol e 2 % cream 2021-06 00:00: 00 Yes [id number] Apply to area(s) 2 (two) times daily. [facility] hydrOXYzine 25 mg tablet 2021-06 00:00: 00 Yes [id number] 25mg Take 1 tablet by mouth every 6 (six) hours as needed for Itching. [facility] triamcinolo ne acetonide 0.1 % cream 2021-06 00:00: 00 Yes [id number] Apply to area(s) 2 (two) times daily. [facility] ketoconazol e 2 % cream 2021-06 00:00: 00 Yes [id number] Apply to area(s) 2 (two) times daily. [facility] hydrOXYzine 25 mg tablet 2021-06 00:00: 00 Yes [id number] 25mg Take 1 tablet by mouth every 6 (six) hours as needed for Itching. [facility] triamcinolo ne acetonide 0.1 % cream 2021-06 00:00: 00 Yes [id number] Apply to area(s) 2 (two) times daily. [facility] ketoconazol e 2 % cream 2021-06 00:00: 00 Yes [id number] Apply to area(s) 2 (two) times daily. [facility] hydrOXYzine 25 mg tablet 2021-06 00:00: 00 Yes [id number] 25mg Take 1 tablet by mouth every 6 (six) hours as needed for Itching. [facility] triamcinolo ne acetonide 0.1 % cream 2021-06 00:00: 00 Yes [id number] Apply to area(s) 2 (two) times daily. [facility] ketoconazol e 2 % cream 2021-06 00:00: 00 Yes [id number] Apply to area(s) 2 (two) times daily. [facility] hydrOXYzine 25 mg tablet 2021-06 00:00: 00 Yes [id number] 25mg Take 1 tablet by mouth every 6 (six) hours as needed for Itching. [facility] triamcinolo ne acetonide 0.1 % cream 2021-06 00:00: 00 Yes [id number] Apply to area(s) 2 (two) times daily. [facility] ketoconazol e 2 % cream 2021-06 00:00: 00 Yes [id number] Apply to area(s) 2 (two) times daily. [facility] hydrOXYzine 25 mg tablet 2021-06 00:00: 00 Yes [id number] 25mg Take 1 tablet by mouth every 6 (six) hours as needed for Itching. [facility] triamcinolo ne acetonide 0.1 % cream 2021-06 00:00: 00 Yes [id number] Apply to area(s) 2 (two) times daily. [facility] ketocon[facility] e [facility] % cream 2021-06 00:00: 00 Yes [id number] Apply to area(s) 2 (two) times daily. [facility] hydrOXYzine 25 mg tablet 2021-06 00:00: 00 Yes [id number] 25mg Take 1 tablet by mouth every 6 (six) hours as needed for Itching. [facility] triamcinolo ne acetonide 0.1 % cream 2021-06 00:00: 00 Yes [id number] Apply to area(s) 2 (two) times daily. [facility] ketocon[facility] e [facility] % cream 2021-06 00:00: 00 Yes [id number] Apply to area(s) 2 (two) times daily. [facility] hydrOXYzine 25 mg tablet 2021-06 00:00: 00 Yes [id number] 25mg Take 1 tablet by mouth every 6 (six) hours as needed for Itching. [facility] triamcinolo ne acetonide 0.1 % cream 2021-06 00:00: 00 Yes [id number] Apply to area(s) 2 (two) times daily. [facility] ketoconazol e 2 % cream 2021-06 00:00: 00 Yes [id number] Apply to area(s) 2 (two) times daily. [facility] hydrOXYzine 25 mg tablet 2021-06 00:00: 00 Yes [id number] 25mg Take 1 tablet by mouth every 6 (six) hours as needed for Itching. [facility] triamcinolo ne acetonide 0.1 % cream 2021-06 00:00: 00 Yes [id number] Apply to area(s) 2 (two) times daily. [facility] ketoconazol e 2 % cream 2021-06 00:00: 00 Yes [id number] Apply to area(s) 2 (two) times daily. [facility] hydrOXYzine [facility] mg tablet 2021-06 00:00: 00 Yes [id number] 25mg Take 1 tablet by mouth every 6 (six) hours as needed for Itching. [facility] triamcinolo ne acetonide 0.1 % cream 2021-06 00:00: 00 Yes [id number] Apply to area(s) 2 (two) times daily. [facility] ketoconazol e 2 % cream 2021-06 00:00: 00 Yes [id number] Apply to area(s) 2 (two) times daily. [facility] hydrOXYzine [facility] mg tablet 2021-06 00:00: 00 Yes [id number] 25mg Take 1 tablet by mouth every 6 (six) hours as needed for Itching. [facility] triamcinolo ne acetonide 0.1 % cream 2021-06 00:00: 00 Yes [id number] Apply to area(s) 2 (two) times daily. [facility] ketoconazol e 2 % cream 2021-06 00:00: 00 Yes [id number] Apply to area(s) 2 (two) times daily. [facility] hydrOXYzine 25 mg tablet 2021-06 00:00: 00 Yes [id number] 25mg Take 1 tablet by mouth every 6 (six) hours as needed for Itching. [facility] triamcinolo ne acetonide 0.1 % cream 2021-06 00:00: 00 Yes [id number] Apply to area(s) 2 (two) times daily. [facility] ketoconazol e 2 % cream 2021-06 00:00: 00 Yes [id number] Apply to area(s) 2 (two) times daily. [facility] hydrOXYzine 25 mg tablet 2021-06 00:00: 00 Yes [id number] 25mg Take 1 tablet by mouth every 6 (six) hours as needed for Itching. [facility] triamcinolo ne acetonide 0.1 % cream 2021-06 00:00: 00 Yes [id number] Apply to area(s) 2 (two) times daily. [facility] ketoconazol e 2 % cream 2021-06 00:00: 00 Yes [id number] Apply to area(s) 2 (two) times daily. [facility] hydrOXYz[facility] mg tablet 2021-06 00:00: 00 Yes [id number] 25mg Take 1 tablet by mouth every 6 (six) hours as needed for Itching. [facility] triamcinolo ne acetonide 0.1 % cream 2021-06 00:00: 00 Yes [id number] Apply to area(s) 2 (two) times daily. [facility] ketocon[facility] e [facility] % cream 2021-06 00:00: 00 Yes [id number] Apply to area(s) 2 (two) times daily. [facility] hydrOXYzine 25 mg tablet 2021-06 00:00: 00 Yes [id number] 25mg Take 1 tablet by mouth every 6 (six) hours as needed for Itching. [facility] triamcinolo ne acetonide 0.1 % cream 2021-06 00:00: 00 Yes [id number] Apply to area(s) 2 (two) times daily. [facility] ketoconazol e 2 % cream 2021-06 00:00: 00 Yes [id number] Apply to area(s) 2 (two) times daily. [facility] hydrOXYzine 25 mg tablet 2021-06 00:00: 00 Yes [id number] 25mg Take 1 tablet by mouth every 6 (six) hours as needed for Itching. [facility] triamcinolo ne acetonide 0.1 % cream 2021-06 00:00: 00 Yes [id number] Apply to area(s) 2 (two) times daily. [facility] ketoconazol e 2 % cream 2021-06 00:00: 00 Yes [id number] Apply to area(s) 2 (two) times daily. [facility] hydrOXYz[facility] mg tablet 2021-06 00:00: 00 Yes [id number] 25mg Take 1 tablet by mouth every 6 (six) hours as needed for Itching. [facility] triamcinolo ne acetonide 0.1 % cream 2021-06 00:00: 00 Yes [id number] Apply to area(s) 2 (two) times daily. [facility] ketoconazol e 2 % cream 2021-06 00:00: 00 Yes [id number] Apply to area(s) 2 (two) times daily. [facility] hydrOXYzine 25 mg tablet 2021-06 00:00: 00 Yes [id number] 25mg Take 1 tablet by mouth every 6 (six) hours as needed for Itching. [facility] triamcinolo ne acetonide 0.1 % cream 2021-06 00:00: 00 Yes [id number] Apply to area(s) 2 (two) times daily. [facility] ketoconazol e 2 % cream 2021-06 00:00: 00 Yes [id number] Apply to area(s) 2 (two) times daily. [facility] hydrOXYzine 25 mg tablet 2021-06 00:00: 00 Yes [id number] 25mg Take 1 tablet by mouth every 6 (six) hours as needed for Itching. [facility] triamcinolo ne acetonide 0.1 % cream 2021-06 00:00: 00 Yes [id number] Apply to area(s) 2 (two) times daily. [facility] ketoconazol e 2 % cream 2021-06 00:00: 00 Yes [id number] Apply to area(s) 2 (two) times daily. [facility] hydrOXYzine 25 mg tablet 2021-06 00:00: 00 Yes [id number] 25mg Take 1 tablet by mouth every 6 (six) hours as needed for Itching. [facility] metformin ER 750 mg 24 hr tablet 2021-06 00:00: 00 Yes [id number] 750mg Take 1 tablet by mouth daily with breakfast. [facility] metformin ER 750 mg 24 hr tablet 2021-06 00:00: 00 Yes [id number] 750mg Take 1 tablet by mouth daily with breakfast. [facility] metformin ER 750 mg 24 hr tablet 2021-06 00:00: 00 Yes [id number] 750mg Take 1 tablet by mouth daily with breakfast. [facility] metformin ER 750 mg 24 hr tablet 2021-06 00:00: 00 Yes [id number] 750mg Take 1 tablet by mouth daily with breakfast. [facility] metformin ER 750 mg 24 hr tablet 2021-06 00:00: 00 Yes [id number] 750mg Take 1 tablet by mouth daily with breakfast. [facility] metformin ER 750 mg 24 hr tablet 2021-06 00:00: 00 Yes [id number] 750mg Take 1 tablet by mouth daily with breakfast. [facility] metformin ER 750 mg 24 hr tablet 2021-06 00:00: 00 06-27 00:00 :00 No [id number] 750mg Take 1 tablet by mouth daily with breakfast. [facility] metformin ER 750 mg 24 hr tablet 2021-06 00:00: 00 06-27 00:00 :00 No [id number] 750mg Take 1 tablet by mouth daily with breakfast. [facility] ferrous sulfate (IRON ORAL) 2021-06 10:45: 25 Yes Take by mouth. [facility] ferrous sulfate (IRON ORAL) 2021-06 10:45: 25 Yes Take by mouth. [facility] ferrous sulfate (IRON ORAL) 2021-06 10:45: 25 Yes Take by mouth. [facility] ferrous sulfate (IRON ORAL) 2021-06 10:45: 25 Yes Take by mouth. [facility] ferrous sulfate (IRON ORAL) 2021-06 10:45: 25 Yes Take by mouth. [facility] ferrous sulfate (IRON ORAL) 2021-06 10:45: 25 Yes Take by mouth. [facility] ferrous sulfate (IRON ORAL) 2021-06 10:45: 25 Yes Take by mouth. [facility] ferrous sulfate (IRON ORAL) 2021-06 10:45: 25 Yes Take by mouth. [facility] ferrous sulfate (IRON ORAL) 2021-06 10:45: 25 Yes Take by mouth. [facility] ferrous sulfate (IRON ORAL) 2021-06 10:45: 25 Yes Take by mouth. [facility] ferrous sulfate (IRON ORAL) 2021-06 10:45: 25 Yes Take by mouth. [facility] ferrous sulfate (IRON ORAL) 2021-06 10:45: 25 Yes Take by mouth. [facility] ferrous sulfate (IRON ORAL) 2021-06 10:45: 25 Yes Take by mouth. [facility] ferrous sulfate (IRON ORAL) 2021-06 10:45: 25 Yes Take by mouth. [facility] 2021-06 10:45: 25 Yes Take by mouth. [facility] ferrous sulfate (IRON ORAL) 2021-06 10:45: 25 Yes Take by mouth. [facility]IRON ORAL[facility] 2021-06 10:45: 25 Yes Take by mouth. [facility]IRON ORAL[facility] 2021-06 10:45: 25 Yes Take by mouth. [facility]IRON ORAL[facility] 2021-06 10:45: 25 Yes Take by mouth. [facility] ferrous sulfate (IRON ORAL) 2021-06 10:45: 25 Yes Take by mouth. [facility] ferrous sulfate (IRON ORAL) 2021-06 10:45: 25 Yes Take by mouth. [facility] ferrous sulfate (IRON ORAL) 2021-06 10:45: 25 Yes Take by mouth. [facility] ferrous sulfate (IRON ORAL) 2021-06 10:45: 25 Yes Take by mouth. [facility]IRON ORAL[facility] 2021-06 10:45: 25 Yes Take by mouth. [facility] ferrous sulfate (IRON ORAL) 2021-06 10:45: 25 Yes Take by mouth. [facility] ferrous sulfate (IRON ORAL) 2021-06 10:45: 25 Yes Take by mouth. [facility] ferrous sulfate (IRON ORAL) 2021-06 10:45: 25 Yes Take by mouth. [facility] ferrous sulfate (IRON ORAL) 2021-06 10:45: 25 Yes Take by mouth. [facility] ferrous sulfate (IRON ORAL) 2021-06 10:45: 25 Yes Take by mouth. [facility] ferrous sulfate (IRON ORAL) 2021-06 10:45: 25 Yes Take by mouth. [facility] ferrous sulfate (IRON ORAL) 2021-06 10:45: 25 Yes Take by mouth. [facility] ferrous sulfate (IRON ORAL) 2021-06 10:45: 25 Yes Take by mouth. [facility] ferrous sulfate (IRON ORAL) 2021-06 10:45: 25 Yes Take by mouth. [facility] ferrous sulfate (IRON ORAL) 2021-06 10:45: 25 Yes Take by mouth. [facility] ferrous sulfate (IRON ORAL) 2021-06 10:45: 25 Yes Take by mouth. [facility] ferrous sulfate (IRON ORAL) 2021-06 10:45: 25 Yes Take by mouth. [facility] ferrous sulfate (IRON ORAL) 2021-06 10:45: 25 Yes Take by mouth. [facility] ferrous sulfate (IRON ORAL) 2021-06 10:45: 25 Yes Take by mouth. [facility] miSOPROStoL 200 mcg tablet 2021-06 00:00: 00 Yes [id number] 200ug Take 1 tablet by mouth SEE-INSTRU CTIONS. Take one tab the night before and one tab the morning of procedure [facility] miSOPROStoL 200 mcg tablet 2021-06 00:00: 00 Yes [id number] 200ug Take 1 tablet by mouth SEE-INSTRU CTIONS. Take one tab the night before and one tab the morning of procedure [facility] miSOPROStoL 200 mcg tablet 2021-06 00:00: 00 Yes [id number] 200ug Take 1 tablet by mouth SEE-INSTRU CTIONS. Take one tab the night before and one tab the morning of procedure [facility] miSOPROStoL 200 mcg tablet 2021-06 00:00: 00 Yes [id number] 200ug Take 1 tablet by mouth SEE-INSTRU CTIONS. Take one tab the night before and one tab the morning of procedure [facility] miSOPROStoL 200 mcg tablet 2021-06 00:00: 00 Yes [id number] 200ug Take 1 tablet by mouth SEE-INSTRU CTIONS. Take one tab the night before and one tab the morning of procedure [facility] miSOPROStoL 200 mcg tablet 2021-06 00:00: 00 Yes [id number] 200ug Take 1 tablet by mouth SEE-INSTRU CTIONS. Take one tab the night before and one tab the morning of procedure [facility] miSOPROStoL 200 mcg tablet 2021-06 00:00: 00 Yes [id number] 200ug Take 1 tablet by mouth SEE-INSTRU CTIONS. Take one tab the night before and one tab the morning of procedure [facility] miSOPROStoL 200 mcg tablet 2021-06 00:00: 00 Yes [id number] 200ug Take 1 tablet by mouth SEE-INSTRU CTIONS. Take one tab the night before and one tab the morning of procedure [facility] miSOPROStoL 200 mcg tablet 2021-06 00:00: 00 Yes [id number] 200ug Take 1 tablet by mouth SEE-INSTRU CTIONS. Take one tab the night before and one tab the morning of procedure [facility] miSOPROStoL 200 mcg tablet 2021-06 00:00: 00 Yes [id number] 200ug Take 1 tablet by mouth SEE-INSTRU CTIONS. Take one tab the night before and one tab the morning of procedure [facility] miSOPROStoL 200 mcg tablet 2021-06 00:00: 00 Yes [id number] 200ug Take 1 tablet by mouth SEE-INSTRU CTIONS. Take one tab the night before and one tab the morning of procedure [facility] miSOPROStoL 200 mcg tablet 2021-06 00:00: 00 Yes [id number] 200ug Take 1 tablet by mouth SEE-INSTRU CTIONS. Take one tab the night before and one tab the morning of procedure [facility] miSOPROStoL 200 mcg tablet 2021-06 00:00: 00 Yes [id number] 200ug Take 1 tablet by mouth SEE-INSTRU CTIONS. Take one tab the night before and one tab the morning of procedure [facility] miSOPROStoL 200 mcg tablet 2021-06 00:00: 00 Yes [id number] 200ug Take 1 tablet by mouth SEE-INSTRU CTIONS. Take one tab the night before and one tab the morning of procedure [facility] miSOPROStoL 200 mcg tablet 2021-06 00:00: 00 Yes [id number] 200ug Take 1 tablet by mouth SEE-INSTRU CTIONS. Take one tab the night before and one tab the morning of procedure [facility] miSOPROStoL 200 mcg tablet 2021-06 00:00: 00 Yes [id number] 200ug Take 1 tablet by mouth SEE-INSTRU CTIONS. Take one tab the night before and one tab the morning of procedure [facility] miSOPROStoL 200 mcg tablet 2021-06 00:00: 00 Yes [id number] 200ug Take 1 tablet by mouth SEE-INSTRU CTIONS. Take one tab the night before and one tab the morning of procedure [facility] miSOPROStoL 200 mcg tablet 2021-06 00:00: 00 Yes [id number] 200ug Take 1 tablet by mouth SEE-INSTRU CTIONS. Take one tab the night before and one tab the morning of procedure [facility] miSOPROStoL 200 mcg tablet 2021-06 00:00: 00 Yes [id number] 200ug Take 1 tablet by mouth SEE-INSTRU CTIONS. Take one tab the night before and one tab the morning of procedure [facility] miSOPROStoL 200 mcg tablet 2021-06 00:00: 00 Yes [id number] 200ug Take 1 tablet by mouth SEE-INSTRU CTIONS. Take one tab the night before and one tab the morning of procedure [facility] miSOPROStoL 200 mcg tablet 2021-06 00:00: 00 Yes [id number] 200ug Take 1 tablet by mouth SEE-INSTRU CTIONS. Take one tab the night before and one tab the morning of procedure [facility] miSOPROStoL 200 mcg tablet 2021-06 00:00: 00 Yes [id number] 200ug Take 1 tablet by mouth SEE-INSTRU CTIONS. Take one tab the night before and one tab the morning of procedure [facility] miSOPROStoL 200 mcg tablet 2021-06 00:00: 00 Yes [id number] 200ug Take 1 tablet by mouth SEE-INSTRU CTIONS. Take one tab the night before and one tab the morning of procedure [facility] miSOPROStoL 200 mcg tablet 2021-06 00:00: 00 Yes [id number] 200ug Take 1 tablet by mouth SEE-INSTRU CTIONS. Take one tab the night before and one tab the morning of procedure [facility] miSOPROStoL 200 mcg tablet 2021-06 00:00: 00 Yes [id number] 200ug Take 1 tablet by mouth SEE-INSTRU CTIONS. Take one tab the night before and one tab the morning of procedure [facility] miSOPROStoL 200 mcg tablet 2021-06 00:00: 00 Yes [id number] 200ug Take 1 tablet by mouth SEE-INSTRU CTIONS. Take one tab the night before and one tab the morning of procedure [facility] miSOPROStoL 200 mcg tablet 2021-06 00:00: 00 Yes [id number] 200ug Take 1 tablet by mouth SEE-INSTRU CTIONS. Take one tab the night before and one tab the morning of procedure [facility] miSOPROStoL 200 mcg tablet 2021-06 00:00: 00 Yes [id number] 200ug Take 1 tablet by mouth SEE-INSTRU CTIONS. Take one tab the night before and one tab the morning of procedure [facility] miSOPROStoL 200 mcg tablet 2021-06 00:00: 00 Yes [id number] 200ug Take 1 tablet by mouth SEE-INSTRU CTIONS. Take one tab the night before and one tab the morning of procedure [facility] miSOPROStoL 200 mcg tablet 2021-06 00:00: 00 Yes [id number] 200ug Take 1 tablet by mouth SEE-INSTRU CTIONS. Take one tab the night before and one tab the morning of procedure [facility] miSOPROStoL 200 mcg tablet 2021-06 00:00: 00 Yes [id number] 200ug Take 1 tablet by mouth SEE-INSTRU CTIONS. Take one tab the night before and one tab the morning of procedure [facility] miSOPROStoL 200 mcg tablet 2021-06 00:00: 00 Yes [id number] 200ug Take 1 tablet by mouth SEE-INSTRU CTIONS. Take one tab the night before and one tab the morning of procedure [facility] miSOPROStoL 200 mcg tablet 2021-06 00:00: 00 Yes [id number] 200ug Take 1 tablet by mouth SEE-INSTRU CTIONS. Take one tab the night before and one tab the morning of procedure [facility] miSOPROStoL 200 mcg tablet 2021-06 00:00: 00 Yes [id number] 200ug Take 1 tablet by mouth SEE-INSTRU CTIONS. Take one tab the night before and one tab the morning of procedure [facility] miSOPROStoL 200 mcg tablet 2021-06 00:00: 00 Yes [id number] 200ug Take 1 tablet by mouth SEE-INSTRU CTIONS. Take one tab the night before and one tab the morning of procedure [facility] miSOPROStoL 200 mcg tablet 2021-06 00:00: 00 Yes [id number] 200ug Take 1 tablet by mouth SEE-INSTRU CTIONS. Take one tab the night before and one tab the morning of procedure [facility] miSOPROStoL 200 mcg tablet 2021-06 00:00: 00 Yes [id number] 200ug Take 1 tablet by mouth SEE-INSTRU CTIONS. Take one tab the night before and one tab the morning of procedure [facility] miSOPROStoL 200 mcg tablet 2021-06 00:00: 00 Yes [id number] 200ug Take 1 tablet by mouth SEE-INSTRU CTIONS. Take one tab the night before and one tab the morning of procedure [facility] miSOPROStoL 200 mcg tablet 2021-06 00:00: 00 Yes [id number] 200ug Take 1 tablet by mouth SEE-INSTRU CTIONS. Take one tab the night before and one tab the morning of procedure [facility] miSOPROStoL 200 mcg tablet 2021-06 00:00: 00 Yes [id number] 200ug Take 1 tablet by mouth SEE-INSTRU CTIONS. Take one tab the night before and one tab the morning of procedure [facility] miSOPROStoL 200 mcg tablet 2021-06 00:00: 00 Yes [id number] 200ug Take 1 tablet by mouth SEE-INSTRU CTIONS. Take one tab the night before and one tab the morning of procedure [facility] miSOPROStoL 200 mcg tablet 2021-06 00:00: 00 Yes [id number] 200ug Take 1 tablet by mouth SEE-INSTRU CTIONS. Take one tab the night before and one tab the morning of procedure [facility] miSOPROStoL 200 mcg tablet 2021-06 00:00: 00 Yes [id number] 200ug Take 1 tablet by mouth SEE-INSTRU CTIONS. Take one tab the night before and one tab the morning of procedure [facility] miSOPROStoL 200 mcg tablet 2021-06 00:00: 00 Yes [id number] 200ug Take 1 tablet by mouth SEE-INSTRU CTIONS. Take one tab the night before and one tab the morning of procedure [facility] miSOPROStoL 200 mcg tablet 2021-06 00:00: 00 Yes [id number] 200ug Take 1 tablet by mouth SEE-INSTRU CTIONS. Take one tab the night before and one tab the morning of procedure [facility] miSOPROStoL 200 mcg tablet 2021-06 00:00: 00 Yes [id number] 200ug Take 1 tablet by mouth SEE-INSTRU CTIONS. Take one tab the night before and one tab the morning of procedure [facility] miSOPROStoL 200 mcg tablet 2021-06 00:00: 00 Yes [id number] 200ug Take 1 tablet by mouth SEE-INSTRU CTIONS. Take one tab the night before and one tab the morning of procedure [facility] miSOPROStoL 200 mcg tablet 2021-06 00:00: 00 Yes [id number] 200ug Take 1 tablet by mouth SEE-INSTRU CTIONS. Take one tab the night before and one tab the morning of procedure [facility] miSOPROStoL 200 mcg tablet 2021-06 00:00: 00 Yes [id number] 200ug Take 1 tablet by mouth SEE-INSTRU CTIONS. Take one tab the night before and one tab the morning of procedure [facility] miSOPROStoL 200 mcg tablet 2021-06 00:00: 00 Yes [id number] 200ug Take 1 tablet by mouth SEE-INSTRU CTIONS. Take one tab the night before and one tab the morning of procedure [facility] miSOPROStoL 200 mcg tablet 2021-06 00:00: 00 Yes [id number] 200ug Take 1 tablet by mouth SEE-INSTRU CTIONS. Take one tab the night before and one tab the morning of procedure [facility] miSOPROStoL 200 mcg tablet 2021-06 00:00: 00 Yes [id number] 200ug Take 1 tablet by mouth SEE-INSTRU CTIONS. Take one tab the night before and one tab the morning of procedure [facility] miSOPROStoL 200 mcg tablet 2021-06 00:00: 00 Yes [id number] 200ug Take 1 tablet by mouth SEE-INSTRU CTIONS. Take one tab the night before and one tab the morning of procedure [facility] miSOPROStoL 200 mcg tablet 2021-06 00:00: 00 Yes [id number] 200ug Take 1 tablet by mouth SEE-INSTRU CTIONS. Take one tab the night before and one tab the morning of procedure [facility] miSOPROStoL 200 mcg tablet 2021-06 00:00: 00 Yes [id number] 200ug Take 1 tablet by mouth SEE-INSTRU CTIONS. Take one tab the night before and one tab the morning of procedure [facility] miSOPROStoL 200 mcg tablet 2021-06 00:00: 00 Yes [id number] 200ug Take 1 tablet by mouth SEE-INSTRU CTIONS. Take one tab the night before and one tab the morning of procedure [facility] miSOPROStoL 200 mcg tablet 2021-06 00:00: 00 Yes [id number] 200ug Take 1 tablet by mouth SEE-INSTRU CTIONS. Take one tab the night before and one tab the morning of procedure [facility] miSOPROStoL 200 mcg tablet 2021-06 00:00: 00 Yes [id number] 200ug Take 1 tablet by mouth SEE-INSTRU CTIONS. Take one tab the night before and one tab the morning of procedure [facility] miSOPROStoL 200 mcg tablet 2021-06 00:00: 00 Yes [id number] 200ug Take 1 tablet by mouth SEE-INSTRU CTIONS. Take one tab the night before and one tab the morning of procedure [facility] miSOPROStoL 200 mcg tablet 2021-06 00:00: 00 Yes [id number] 200ug Take 1 tablet by mouth SEE-INSTRU CTIONS. Take one tab the night before and one tab the morning of procedure [facility] miSOPROStoL 200 mcg tablet 2021-06 00:00: 00 04-21 00:00 :00 No [id number] 200ug Take 1 tablet by mouth SEE-INSTRU CTIONS. Take one tab the night before and one tab the morning of procedure [facility] miSOPROStoL 200 mcg tablet 2021-06 00:00: 00 04-21 00:00 :00 No [id number] 200ug Take 1 tablet by mouth SEE-INSTRU CTIONS. Take one tab the night before and one tab the morning of procedure [facility] miSOPROStoL 200 mcg tablet 2021-06 00:00: 00 04-21 00:00 :00 No [id number] 200ug Take 1 tablet by mouth SEE-INSTRU CTIONS. Take one tab the night before and one tab the morning of procedure [facility] miSOPROStoL 200 mcg tablet 2021-06 00:00: 00 04-21 00:00 :00 No [id number] 200ug Take 1 tablet by mouth SEE-INSTRU CTIONS. Take one tab the night before and one tab the morning of procedure [facility] Diclofenac Sodium (VOLTAREN) 1 % gel 02-07 00:00: 00 Yes [id number] Apply to area(s) 4 (four) times daily. Apply 4 g qid [facility] Diclofenac Sodium (VOLTAREN) 1 % gel 02-07 00:00: 00 Yes [id number] Apply to area(s) 4 (four) times daily. Apply 4 g qid [facility] Diclofenac Sodium (VOLTAREN) 1 % gel 02-07 00:00: 00 Yes [id number] 9107 Apply to area(s) 4 (four) times daily. Apply 4 g qid [facility] Diclofenac Sodium (VOLTAREN) 1 % gel 0 02-07 00:00: 00 Yes [id number] 9107 Apply to area(s) 4 (four) times daily. Apply 4 g qid [facility] Diclofenac Sodium (VOLTAREN) 1 % gel 02-07 00:00: 00 Yes [id number] Apply to area(s) 4 (four) times daily. Apply 4 g qid [facility] Diclofenac Sodium (VOLTAREN) 1 % gel 0 02-07 00:00: 00 Yes [id number] Apply to area(s) 4 (four) times daily. Apply 4 g qid [facility] Diclofenac Sodium (VOLTAREN) 1 % gel 2021-0 02-07 00:00: 00 Yes [id number] Apply to area(s) 4 (four) times daily. Apply 4 g qid [facility] Diclofenac Sodium (VOLTAREN) 1 % gel 2021-0 - 00:00: 00 Yes [id number] 9107 Apply to area(s) 4 (four) times daily. Apply 4 g qid [facility] Diclofenac Sodium (VOLTAREN) 1 % gel 202-0 - 00:00: 00 Yes [id number] Apply to area(s) 4 (four) times daily. Apply 4 g qid [facility] Diclofenac Sodium (VOLTAREN) 1 % gel 2021-0 - 00:00: 00 Yes [id number] Apply to area(s) 4 (four) times daily. Apply 4 g qid [facility] Diclofenac Sodium (VOLTAREN) 1 % gel 2021-0 - 00:00: 00 Yes [id number] 9107 Apply to area(s) 4 (four) times daily. Apply 4 g qid [facility] Diclofenac Sodium (VOLTAREN) 1 % gel 2021-0 - 00:00: 00 Yes [id number] Apply to area(s) 4 (four) times daily. Apply 4 g qid [facility] Diclofenac Sodium (VOLTAREN) 1 % gel 2021-0 - 00:00: 00 Yes [id number] 9107 Apply to area(s) 4 (four) times daily. Apply 4 g qid [facility] Diclofenac Sodium (VOLTAREN) 1 % gel 2021-0 - 00:00: 00 Yes [id number] Apply to area(s) 4 (four) times daily. Apply 4 g qid [facility] Diclofenac Sodium (VOLTAREN) 1 % gel 2-0 - 00:00: 00 Yes [id number] 9107 Apply to area(s) 4 (four) times daily. Apply 4 g qid [facility] Diclofenac Sodium (VOLTAREN) 1 % gel 2022-0 9- 00:00: 00 Yes [id number] 9107 Apply to area(s) 4 (four) times daily. Apply 4 g qid [facility] Diclofenac Sodium (VOLTAREN) 1 % gel 202-0 - 00:00: 00 Yes [id number] Apply to area(s) 4 (four) times daily. Apply 4 g qid [facility] Diclofenac Sodium (VOLTAREN) 1 % gel 202-0 - 00:00: 00 Yes [id number] 9107 Apply to area(s) 4 (four) times daily. Apply 4 g qid [facility] Diclofenac Sodium (VOLTAREN) 1 % gel 202-0 - 00:00: 00 Yes [id number] Apply to area(s) 4 (four) times daily. Apply 4 g qid [facility] Diclofenac Sodium (VOLTAREN) 1 % gel 2021-0 - 00:00: 00 Yes [id number] Apply to area(s) 4 (four) times daily. Apply 4 g qid [facility] Diclofenac Sodium (VOLTAREN) 1 % gel 2021-0 - 00:00: 00 Yes [id number] Apply to area(s) 4 (four) times daily. Apply 4 g qid [facility] Diclofenac Sodium (VOLTAREN) 1 % gel 2021-0 - 00:00: 00 Yes [id number] Apply to area(s) 4 (four) times daily. Apply 4 g qid [facility] Diclofenac Sodium (VOLTAREN) 1 % gel 2021-0 - 00:00: 00 Yes [id number] Apply to area(s) 4 (four) times daily. Apply 4 g qid [facility] Diclofenac Sodium (VOLTAREN) 1 % gel 2022-0 - 00:00: 00 Yes [id number] 9107 Apply to area(s) 4 (four) times daily. Apply 4 g qid [facility] Diclofenac Sodium (VOLTAREN) 1 % gel 2022-0 9- 00:00: 00 Yes [id number] 9107 Apply to area(s) 4 (four) times daily. Apply 4 g qid [facility] Diclofenac Sodium (VOLTAREN) 1 % gel 2022-0 9- 00:00: 00 Yes [id number] 9107 Apply to area(s) 4 (four) times daily. Apply 4 g qid [facility] Diclofenac Sodium (VOLTAREN) 1 % gel 02-07 00:00: 00 Yes [id number] 9107 Apply to area(s) 4 (four) times daily. Apply 4 g qid [facility] Diclofenac Sodium (VOLTAREN) 1 % gel 02-07 00:00: 00 09-08 00:00 :00 No [id number] 9107 Apply to area(s) 4 (four) times daily. Apply 4 g qid [facility] Diclofenac Sodium (VOLTAREN) 1 % gel 02-07 00:00: 00 09-08 00:00 :00 No [id number] 9107 Apply to area(s) 4 (four) times daily. Apply 4 g qid [facility] Diclofenac Sodium (VOLTAREN) 1 % gel 02-07 00:00: 00 09-08 00:00 :00 No [id number] 9107 Apply to area(s) 4 (four) times daily. Apply 4 g qid [facility] flash glucose sensor (FREESTYLE BAMBI 14 DAY SENSOR) Kit 02-03 00:00: 00 Yes 1{each} 1 Each every 14 (fourteen) days. Use as directed every 14 days for E11.9 [facility] flash glucose sensor (FREESTYLE BAMBI 14 DAY SENSOR) Kit 02-03 00:00: 00 Yes 1{each} 1 Each every 14 (fourteen) days. Use as directed every 14 days for E11.9 [facility] flash glucose sensor (FREESTYLE BAMBI 14 DAY SENSOR) Kit 02-03 00:00: 00 Yes 1{each} 1 Each every 14 (fourteen) days. Use as directed every 14 days for E11.9 [facility] flash glucose sensor (FREESTYLE BAMBI 14 DAY SENSOR) Kit 02-03 00:00: 00 Yes 1{each} 1 Each every 14 (fourteen) days. Use as directed every 14 days for E11.9 [facility] flash glucose sensor (FREESTYLE BAMBI 14 DAY SENSOR) Kit 02-03 00:00: 00 Yes 1{each} 1 Each every 14 (fourteen) days. Use as directed every 14 days for E11.9 [facility] flash glucose sensor (FREESTYLE BAMBI 14 DAY SENSOR) Kit 02-03 00:00: 00 Yes 1{each} 1 Each every 14 (fourteen) days. Use as directed every 14 days for E11.9 [facility] flash glucose sensor (FREESTYLE BAMBI 14 DAY SENSOR) Kit 02-03 00:00: 00 Yes 1{each} 1 Each every 14 (fourteen) days. Use as directed every 14 days for E11.9 [facility] flash glucose sensor (FREESTYLE BAMBI 14 DAY SENSOR) Kit 02-03 00:00: 00 Yes 1{each} 1 Each every 14 (fourteen) days. Use as directed every 14 days for E11.9 [facility] flash glucose sensor (FREESTYLE BAMBI 14 DAY SENSOR) Kit 02-03 00:00: 00 Yes 1{each} 1 Each every 14 (fourteen) days. Use as directed every 14 days for E11.9 [facility] flash glucose sensor (FREESTYLE BAMBI 14 DAY SENSOR) Kit 02-03 00:00: 00 Yes 1{each} 1 Each every 14 (fourteen) days. Use as directed every 14 days for E11.9 [facility] flash glucose sensor (FREESTYLE BAMBI 14 DAY SENSOR) Kit 02-03 00:00: 00 Yes 1{each} 1 Each every 14 (fourteen) days. Use as directed every 14 days for E11.9 [facility] flash glucose sensor (FREESTYLE BAMBI 14 DAY SENSOR) Kit 02-03 00:00: 00 Yes 1{each} 1 Each every 14 (fourteen) days. Use as directed every 14 days for E11.9 [facility] flash glucose sensor (FREESTYLE ABMBI 14 DAY SENSOR) Kit 02-03 00:00: 00 Yes 1{each} 1 Each every 14 (fourteen) days. Use as directed every 14 days for E11.9 [facility] flash glucose sensor (FREESTYLE BAMBI 14 DAY SENSOR) Kit 02-03 00:00: 00 Yes 1{each} 1 Each every 14 (fourteen) days. Use as directed every 14 days for E11.9 [facility] flash glucose sensor (FREESTYLE BAMBI 14 DAY SENSOR) Kit 02-03 00:00: 00 Yes 1{each} 1 Each every 14 (fourteen) days. Use as directed every 14 days for E11.9 [facility] flash glucose sensor (FREESTYLE BAMBI 14 DAY SENSOR) Kit 02-03 00:00: 00 Yes 1{each} 1 Each every 14 (fourteen) days. Use as directed every 14 days for E11.9 [facility] flash glucose sensor (FREESTYLE BAMBI 14 DAY SENSOR) Kit 02-03 00:00: 00 Yes 1{each} 1 Each every 14 (fourteen) days. Use as directed every 14 days for E11.9 [facility] flash glucose sensor (FREESTYLE BAMBI 14 DAY SENSOR) Kit 02-03 00:00: 00 Yes 1{each} 1 Each every 14 (fourteen) days. Use as directed every 14 days for E11.9 [facility] flash glucose sensor (FREESTYLE BAMBI 14 DAY SENSOR) Kit 02-03 00:00: 00 Yes 1{each} 1 Each every 14 (fourteen) days. Use as directed every 14 days for E11.9 [facility] flash glucose sensor (FREESTYLE BAMBI 14 DAY SENSOR) Kit 02-03 00:00: 00 Yes 1{each} 1 Each every 14 (fourteen) days. Use as directed every 14 days for E11.9 [facility] flash glucose sensor (FREESTYLE BAMBI 14 DAY SENSOR) Kit 02-03 00:00: 00 Yes 1{each} 1 Each every 14 (fourteen) days. Use as directed every 14 days for E11.9 [facility] flash glucose sensor (FREESTYLE BAMBI 14 DAY SENSOR) Kit 02-03 00:00: 00 Yes 1{each} 1 Each every 14 (fourteen) days. Use as directed every 14 days for E11.9 [facility] flash glucose sensor (FREESTYLE BAMBI 14 DAY SENSOR) Kit 02-03 00:00: 00 Yes 1{each} 1 Each every 14 (fourteen) days. Use as directed every 14 days for E11.9 [facility] flash glucose sensor (FREESTYLE BAMBI 14 DAY SENSOR) Kit 02-03 00:00: 00 Yes 1{each} 1 Each every 14 (fourteen) days. Use as directed every 14 days for E11.9 [facility] flash glucose sensor (FREESTYLE BAMBI 14 DAY SENSOR) Kit 02-03 00:00: 00 Yes 1{each} 1 Each every 14 (fourteen) days. Use as directed every 14 days for E11.9 [facility] flash glucose sensor (FREESTYLE BAMBI 14 DAY SENSOR) Kit 02-03 00:00: 00 Yes 1{each} 1 Each every 14 (fourteen) days. Use as directed every 14 days for E11.9 [facility] flash glucose sensor (FREESTYLE BAMBI 14 DAY SENSOR) Kit 02-03 00:00: 00 Yes 1{each} 1 Each every 14 (fourteen) days. Use as directed every 14 days for E11.9 [facility] flash glucose sensor (FREESTYLE BAMBI 14 DAY SENSOR) Kit 02-03 00:00: 00 Yes 1{each} 1 Each every 14 (fourteen) days. Use as directed every 14 days for E11.9 [facility] flash glucose sensor (FREESTYLE BAMBI 14 DAY SENSOR) Kit 02-03 00:00: 00 09-08 00:00 :00 No 1{each} 1 Each every 14 (fourteen) days. Use as directed every 14 days for E11.9 [facility] flash glucose sensor (FREESTYLE BAMBI 14 DAY SENSOR) Kit 02-03 00:00: 00 09-08 00:00 :00 No 1{each} 1 Each every 14 (fourteen) days. Use as directed every 14 days for E11.9 [facility] flash glucose sensor (FREESTYLE BAMBI 14 DAY SENSOR) Kit 8-29 00:00: 00 09-08 00:00 :00 No 1{each} 1 Each every 14 (fourteen) days. Use as directed every 14 days for E11.9 [facility] metformin ER 750 mg 24 hr tablet 8-15 00:00: 00 Yes [id number] 750mg Take 1 tablet by mouth daily with breakfast. [facility] metformin ER 750 mg 24 hr tablet 8-15 00:00: 00 Yes [id number] 750mg Take 1 tablet by mouth daily with breakfast. [facility] metformin ER 750 mg 24 hr tablet 815 00:00: 00 Yes [id number] 750mg Take 1 tablet by mouth daily with breakfast. [facility] metformin ER 750 mg 24 hr tablet 8-15 00:00: 00 Yes [id number] 750mg Take 1 tablet by mouth daily with breakfast. [facility] metformin ER 750 mg 24 hr tablet 815 00:00: 00 Yes [id number] 750mg Take 1 tablet by mouth daily with breakfast. [facility] metformin ER 750 mg 24 hr tablet 815 00:00: 00 Yes [id number] 750mg Take 1 tablet by mouth daily with breakfast. [facility] metformin ER 750 mg 24 hr tablet 8-15 00:00: 00 Yes [id number] 750mg Take 1 tablet by mouth daily with breakfast. [facility] metformin ER 750 mg 24 hr tablet 8-15 00:00: 00 Yes [id number] 750mg Take 1 tablet by mouth daily with breakfast. [facility] metformin ER 750 mg 24 hr tablet 8-15 00:00: 00 Yes [id number] 750mg Take 1 tablet by mouth daily with breakfast. [facility] metformin ER 750 mg 24 hr tablet 8-15 00:00: 00 05-09 00:00 :00 No [id number] 750mg Take 1 tablet by mouth daily with breakfast. [facility] naproxen 500 mg tablet 2-0 8-12 00:00: 00 Yes [id number] 500mg Take 1 tablet by mouth 2 (two) times daily as needed for Pain (scale 4-6). [facility] naproxen 500 mg tablet 2-0 8-12 00:00: 00 Yes [id number] 500mg Take 1 tablet by mouth 2 (two) times daily as needed for Pain (scale 4-6). [facility] naproxen 500 mg tablet 2021-0 8-12 00:00: 00 Yes [id number] 9107 500mg Take 1 tablet by mouth 2 (two) times daily as needed for Pain (scale 4-6). [facility] naproxen 500 mg tablet 2021-0 812 00:00: 00 Yes [id number] 500mg Take 1 tablet by mouth 2 (two) times daily as needed for Pain (scale 4-6). [facility] naproxen 500 mg tablet 2021-0 8-12 00:00: 00 Yes [id number] 9107 500mg Take 1 tablet by mouth 2 (two) times daily as needed for Pain (scale 4-6). [facility] naproxen 500 mg tablet 2021-0 812 00:00: 00 Yes [id number] 500mg Take 1 tablet by mouth 2 (two) times daily as needed for Pain (scale 4-6). [facility] naproxen 500 mg tablet 2-0 8-12 00:00: 00 Yes [id number] 9107 500mg Take 1 tablet by mouth 2 (two) times daily as needed for Pain (scale 4-6). [facility] naproxen 500 mg tablet 2-0 8-12 00:00: 00 Yes [id number] 9107 500mg Take 1 tablet by mouth 2 (two) times daily as needed for Pain (scale 4-6). [facility] naproxen 500 mg tablet 2-0 8-12 00:00: 00 Yes [id number] 9107 500mg Take 1 tablet by mouth 2 (two) times daily as needed for Pain (scale 4-6). [facility] 2-0 8-12 00:00: 00 Yes [id number] 9107 500mg Take 1 tablet by mouth 2 (two) times daily as needed for Pain (scale 4-6). [facility]en [facility] mg tablet 2-0 8-12 00:00: 00 Yes [id number] 9107 500mg Take 1 tablet by mouth 2 (two) times daily as needed for Pain (scale 4-6). [facility]en [facility] mg tablet 2021-0 8-12 00:00: 00 Yes [id number] 9107 500mg Take 1 tablet by mouth 2 (two) times daily as needed for Pain (scale 4-6). [facility] naproxen 500 mg tablet 2-0 8-12 00:00: 00 Yes [id number] 9107 500mg Take 1 tablet by mouth 2 (two) times daily as needed for Pain (scale 4-6). [facility] naproxen 500 mg tablet 2-0 8-12 00:00: 00 Yes [id number] 9107 500mg Take 1 tablet by mouth 2 (two) times daily as needed for Pain (scale 4-6). [facility] naproxen 500 mg tablet 2-0 8-12 00:00: 00 Yes [id number] 9107 500mg Take 1 tablet by mouth 2 (two) times daily as needed for Pain (scale 4-6). [facility] naproxen 500 mg tablet 2-0 8-12 00:00: 00 Yes [id number] 9107 500mg Take 1 tablet by mouth 2 (two) times daily as needed for Pain (scale 4-6). [facility] naproxen 500 mg tablet 2-0 8-12 00:00: 00 Yes [id number] 9107 500mg Take 1 tablet by mouth 2 (two) times daily as needed for Pain (scale 4-6). [facility] tablet 2-0 8-12 00:00: 00 Yes [id number] 9107 500mg Take 1 tablet by mouth 2 (two) times daily as needed for Pain (scale 4-6). [facility] naproxen 500 mg tablet 2-0 8-12 00:00: 00 Yes [id number] 9107 500mg Take 1 tablet by mouth 2 (two) times daily as needed for Pain (scale 4-6). [facility] naproxen 500 mg tablet 2021-0 8-12 00:00: 00 Yes [id number] 9107 500mg Take 1 tablet by mouth 2 (two) times daily as needed for Pain (scale 4-6). [facility] naproxen 500 mg tablet 2021-0 8-12 00:00: 00 Yes [id number] 9107 500mg Take 1 tablet by mouth 2 (two) times daily as needed for Pain (scale 4-6). [facility] naproxen 500 mg tablet 2021-0 812 00:00: 00 Yes [id number] 9107 500mg Take 1 tablet by mouth 2 (two) times daily as needed for Pain (scale 4-6). [facility] naproxen 500 mg tablet 2021-0 8-12 00:00: 00 Yes [id number] 9107 500mg Take 1 tablet by mouth 2 (two) times daily as needed for Pain (scale 4-6). [facility] naproxen 500 mg tablet 2021-0 8-12 00:00: 00 Yes [id number] 9107 500mg Take 1 tablet by mouth 2 (two) times daily as needed for Pain (scale 4-6). [facility] naproxen 500 mg tablet 2021-0 8-12 00:00: 00 Yes [id number] 9107 500mg Take 1 tablet by mouth 2 (two) times daily as needed for Pain (scale 4-6). [facility] naproxen 500 mg tablet 2021-0 8-12 00:00: 00 Yes [id number] 9107 500mg Take 1 tablet by mouth 2 (two) times daily as needed for Pain (scale 4-6). [facility] naproxen 500 mg tablet 2-0 8-12 00:00: 00 Yes [id number] 9107 500mg Take 1 tablet by mouth 2 (two) times daily as needed for Pain (scale 4-6). [facility] naproxen 500 mg tablet 8 00:00: 00 Yes [id number] 9107 500mg Take 1 tablet by mouth 2 (two) times daily as needed for Pain (scale 4-6). [facility] naproxen 500 mg tablet 8 00:00: 00 09-08 00:00 :00 No [id number] 9107 500mg Take 1 tablet by mouth 2 (two) times daily as needed for Pain (scale 4-6). [facility] naproxen 500 mg tablet 01-17 00:00: 00 09-08 00:00 :00 No [id number] 9107 500mg Take 1 tablet by mouth 2 (two) times daily as needed for Pain (scale 4-6). [facility] naproxen 500 mg tablet 01-17 00:00: 00 09-08 00:00 :00 No [id number] 9107 500mg Take 1 tablet by mouth 2 (two) times daily as needed for Pain (scale 4-6). [facility] sulfamethox azole-trime thoprim (BACTRIM DS) 800-160 mg per tablet 11-05 00:00: 00 Yes [id number] 9100 1{tbl} Take 1 tablet by mouth 2 (two) times daily. [facility] sulfamethox azole-trime thoprim (BACTRIM DS) 800-160 mg per tablet 11-05 00:00: 00 Yes [id number] 9100 1{tbl} Take 1 tablet by mouth 2 (two) times daily. [facility] sulfamethox azole-trime thoprim (BACTRIM DS) 800-160 mg per tablet 11-05 00:00: 00 Yes [id number] 9100 1{tbl} Take 1 tablet by mouth 2 (two) times daily. [facility] sulfamethox azole-trime thoprim (BACTRIM DS) 800-160 mg per tablet 11-05 00:00: 00 Yes [id number] 9100 1{tbl} Take 1 tablet by mouth 2 (two) times daily. [facility] sulfamethox azole-trime thoprim (BACTRIM DS) 800-160 mg per tablet 11-05 00:00: 00 Yes [id number] 9100 1{tbl} Take 1 tablet by mouth 2 (two) times daily. [facility] sulfamethox azole-trime thoprim (BACTRIM DS) 800-160 mg per tablet 11-05 00:00: 00 Yes [id number] 9100 1{tbl} Take 1 tablet by mouth 2 (two) times daily. [facility] sulfamethox azole-trime thoprim (BACTRIM DS) 800-160 mg per tablet 11-05 00:00: 00 Yes [id number] 9100 1{tbl} Take 1 tablet by mouth 2 (two) times daily. [facility] sulfamethox azole-trime thoprim (BACTRIM DS) 800-160 mg per tablet 11-05 00:00: 00 Yes [id number] 9100 1{tbl} Take 1 tablet by mouth 2 (two) times daily. [facility] sulfamethox azole-trime thoprim (BACTRIM DS) 800-160 mg per tablet 11-05 00:00: 00 Yes [id number] 9100 1{tbl} Take 1 tablet by mouth 2 (two) times daily. [facility] sulfamethox azole-trime thoprim (BACTRIM DS) 800-160 mg per tablet 11-05 00:00: 00 Yes [id number] 9100 1{tbl} Take 1 tablet by mouth 2 (two) times daily. [facility] sulfamethox azole-trime thoprim (BACTRIM DS) 800-160 mg per tablet 11-05 00:00: 00 Yes [id number] 9100 1{tbl} Take 1 tablet by mouth 2 (two) times daily. [facility] sulfamethox azole-trime thoprim (BACTRIM DS) 800-160 mg per tablet 11-05 00:00: 00 Yes [id number] 9100 1{tbl} Take 1 tablet by mouth 2 (two) times daily. [facility] sulfamethox azole-trime thoprim (BACTRIM DS) 800-160 mg per tablet 11-05 00:00: 00 Yes [id number] 9100 1{tbl} Take 1 tablet by mouth 2 (two) times daily. [facility] sulfamethox azole-trime thoprim (BACTRIM DS) 800-160 mg per tablet 11-05 00:00: 00 Yes [id number] 9100 1{tbl} Take 1 tablet by mouth 2 (two) times daily. [facility] sulfamethox azole-trime thoprim (BACTRIM DS) 800-160 mg per tablet 11-05 00:00: 00 Yes [id number] 9100 1{tbl} Take 1 tablet by mouth 2 (two) times daily. [facility] sulfamethox azole-trime thoprim (BACTRIM DS) 800-160 mg per tablet 11-05 00:00: 00 Yes [id number] 9100 1{tbl} Take 1 tablet by mouth 2 (two) times daily. [facility] sulfamethox azole-trime thoprim (BACTRIM DS) 800-160 mg per tablet 11-05 00:00: 00 Yes [id number] 9100 1{tbl} Take 1 tablet by mouth 2 (two) times daily. [facility] sulfamethox azole-trime thoprim (BACTRIM DS) 800-160 mg per tablet 11-05 00:00: 00 Yes [id number] 9100 1{tbl} Take 1 tablet by mouth 2 (two) times daily. [facility] sulfamethox azole-trime thoprim (BACTRIM DS) 800-160 mg per tablet 11-05 00:00: 00 Yes [id number] 9100 1{tbl} Take 1 tablet by mouth 2 (two) times daily. [facility] sulfamethox azole-trime thoprim (BACTRIM DS) 800-160 mg per tablet 11-05 00:00: 00 Yes [id number] 9100 1{tbl} Take 1 tablet by mouth 2 (two) times daily. [facility] sulfamethox azole-trime thoprim (BACTRIM DS) 800-160 mg per tablet 11-05 00:00: 00 Yes [id number] 9100 1{tbl} Take 1 tablet by mouth 2 (two) times daily. [facility] sulfamethox azole-trime thoprim (BACTRIM DS) 800-160 mg per tablet 11-05 00:00: 00 Yes [id number] 9100 1{tbl} Take 1 tablet by mouth 2 (two) times daily. [facility] sulfamethox azole-trime thoprim (BACTRIM DS) 800-160 mg per tablet 11-05 00:00: 00 Yes [id number] 9100 1{tbl} Take 1 tablet by mouth 2 (two) times daily. [facility] sulfamethox azole-trime thoprim (BACTRIM DS) 800-160 mg per tablet 11-05 00:00: 00 Yes [id number] 9100 1{tbl} Take 1 tablet by mouth 2 (two) times daily. [facility] sulfamethox azole-trime thoprim (BACTRIM DS) 800-160 mg per tablet 11-05 00:00: 00 Yes [id number] 9100 1{tbl} Take 1 tablet by mouth 2 (two) times daily. [facility] sulfamethox azole-trime thoprim (BACTRIM DS) 800-160 mg per tablet 11-05 00:00: 00 Yes [id number] 9100 1{tbl} Take 1 tablet by mouth 2 (two) times daily. [facility] sulfamethox azole-trime thoprim (BACTRIM DS) 800-160 mg per tablet 11-05 00:00: 00 Yes [id number] 9100 1{tbl} Take 1 tablet by mouth 2 (two) times daily. [facility] sulfamethox azole-trime thoprim (BACTRIM DS) 800-160 mg per tablet 11-05 00:00: 00 Yes [id number] 9100 1{tbl} Take 1 tablet by mouth 2 (two) times daily. [facility] sulfamethox azole-trime thoprim (BACTRIM DS) 800-160 mg per tablet 11-05 00:00: 00 09-08 00:00 :00 No [id number] 9100 1{tbl} Take 1 tablet by mouth 2 (two) times daily. [facility] sulfamethox azole-trime thoprim (BACTRIM DS) 800-160 mg per tablet 11-05 00:00: 00 09-08 00:00 :00 No [id number] 9100 1{tbl} Take 1 tablet by mouth 2 (two) times daily. [facility] sulfamethox azole-trime thoprim (BACTRIM DS) 800-160 mg per tablet 11-05 00:00: 00 09-08 00:00 :00 No [id number] 9100 1{tbl} Take 1 tablet by mouth 2 (two) times daily. [facility] butalbital- acetaminoph en-caff 50-325-40 mg tablet 10-24 00:00: 00 Yes [id number] 1{tbl} Take 1 tablet by mouth every 4 (four) hours as needed for Pain (scale 7-10). [facility] butalbital- acetaminoph en-caff 50-325-40 mg tablet 10-24 00:00: 00 Yes [id number] 1{tbl} Take 1 tablet by mouth every 4 (four) hours as needed for Pain (scale 7-10). [facility] butalbital- acetaminoph en-caff 50-325-40 mg tablet 10-24 00:00: 00 Yes [id number] 1{tbl} Take 1 tablet by mouth every 4 (four) hours as needed for Pain (scale 7-10). [facility] butalbital- acetaminoph en-caff 50-325-40 mg tablet 2021-0 - 00:00: 00 Yes [id number] 1{tbl} Take 1 tablet by mouth every 4 (four) hours as needed for Pain (scale 7-10). [facility] butalbital- acetaminoph en-caff 50-325-40 mg tablet 2021-0 10-24 00:00: 00 Yes [id number] 1{tbl} Take 1 tablet by mouth every 4 (four) hours as needed for Pain (scale 7-10). [facility] butalbital- acetaminoph en-caff 50-325-40 mg tablet 2021-0 10-24 00:00: 00 Yes [id number] 1{tbl} Take 1 tablet by mouth every 4 (four) hours as needed for Pain (scale 7-10). [facility] butalbital- acetaminoph en-caff 50-325-40 mg tablet 2021-0 10-24 00:00: 00 Yes [id number] 1{tbl} Take 1 tablet by mouth every 4 (four) hours as needed for Pain (scale 7-10). [facility] butalbital- acetaminoph en-caff 50-325-40 mg tablet 0 10-24 00:00: 00 Yes [id number] 1{tbl} Take 1 tablet by mouth every 4 (four) hours as needed for Pain (scale 7-10). [facility] butalbital- acetaminoph en-caff 50-325-40 mg tablet 0 10-24 00:00: 00 Yes [id number] 1{tbl} Take 1 tablet by mouth every 4 (four) hours as needed for Pain (scale 7-10). [facility] butalbital- acetaminoph en-caff 50-325-40 mg tablet 2021-0 -19 00:00: 00 Yes [id number] 1{tbl} Take 1 tablet by mouth every 4 (four) hours as needed for Pain (scale 7-10). [facility] butalbital- acetaminoph en-caff 50-325-40 mg tablet 2021-0 -19 00:00: 00 Yes [id number] 1{tbl} Take 1 tablet by mouth every 4 (four) hours as needed for Pain (scale 7-10). [facility] butalbital- acetaminoph en-caff 50-325-40 mg tablet 2021-0 -19 00:00: 00 Yes [id number] 1{tbl} Take 1 tablet by mouth every 4 (four) hours as needed for Pain (scale 7-10). [facility] butalbital- acetaminoph en-caff 50-325-40 mg tablet 2021-0 - 00:00: 00 Yes [id number] 1{tbl} Take 1 tablet by mouth every 4 (four) hours as needed for Pain (scale 7-10). [facility] butalbital- acetaminoph en-caff 50-325-40 mg tablet 2021-0 19 00:00: 00 Yes [id number] 1{tbl} Take 1 tablet by mouth every 4 (four) hours as needed for Pain (scale 7-10). [facility] butalbital- acetaminoph en-caff 50-325-40 mg tablet 2021-0 19 00:00: 00 Yes [id number] 1{tbl} Take 1 tablet by mouth every 4 (four) hours as needed for Pain (scale 7-10). [facility] butalbital- acetaminoph en-caff 50-325-40 mg tablet 2021-0 19 00:00: 00 Yes [id number] 1{tbl} Take 1 tablet by mouth every 4 (four) hours as needed for Pain (scale 7-10). [facility] butalbital- acetaminoph en-caff 50-325-40 mg tablet 2021-0 5-19 00:00: 00 Yes [id number] 1{tbl} Take 1 tablet by mouth every 4 (four) hours as needed for Pain (scale 7-10). [facility] butalbital- acetaminoph en-caff 50-325-40 mg tablet 0 10-24 00:00: 00 Yes [id number] 1{tbl} Take 1 tablet by mouth every 4 (four) hours as needed for Pain (scale 7-10). [facility] butalbital- acetaminoph en-caff 50-325-40 mg tablet 2021-0 10-24 00:00: 00 Yes [id number] 1{tbl} Take 1 tablet by mouth every 4 (four) hours as needed for Pain (scale 7-10). [facility] butalbital- acetaminoph en-caff 50-325-40 mg tablet 0 10-24 00:00: 00 Yes [id number] 1{tbl} Take 1 tablet by mouth every 4 (four) hours as needed for Pain (scale 7-10). [facility] butalbital- acetaminoph en-caff 50-325-40 mg tablet 2021-0 10-24 00:00: 00 Yes [id number] 1{tbl} Take 1 tablet by mouth every 4 (four) hours as needed for Pain (scale 7-10). [facility] butalbital- acetaminoph en-caff 50-325-40 mg tablet 2021-0 10-24 00:00: 00 Yes [id number] 1{tbl} Take 1 tablet by mouth every 4 (four) hours as needed for Pain (scale 7-10). [facility] butalbital- acetaminoph en-caff 50-325-40 mg tablet 2021-0 10-24 00:00: 00 Yes [id number] 1{tbl} Take 1 tablet by mouth every 4 (four) hours as needed for Pain (scale 7-10). [facility] butalbital- acetaminoph en-caff 50-325-40 mg tablet 2021-0 10-24 00:00: 00 Yes [id number] 1{tbl} Take 1 tablet by mouth every 4 (four) hours as needed for Pain (scale 7-10). [facility] butalbital- acetaminoph en-caff 50-325-40 mg tablet 2021-0 5-19 00:00: 00 Yes [id number] 1{tbl} Take 1 tablet by mouth every 4 (four) hours as needed for Pain (scale 7-10). [facility] butalbital- acetaminoph en-caff 50-325-40 mg tablet 0 5-19 00:00: 00 Yes [id number] 1{tbl} Take 1 tablet by mouth every 4 (four) hours as needed for Pain (scale 7-10). [facility] butalbital- acetaminoph en-caff 50-325-40 mg tablet 2021-0 5-19 00:00: 00 Yes [id number] 1{tbl} Take 1 tablet by mouth every 4 (four) hours as needed for Pain (scale 7-10). [facility] butalbital- acetaminoph en-caff 50-325-40 mg tablet 2021-0 19 00:00: 00 Yes [id number] 1{tbl} Take 1 tablet by mouth every 4 (four) hours as needed for Pain (scale 7-10). [facility] butalbital- acetaminoph en-caff 50-325-40 mg tablet 2021-0 10-24 00:00: 00 09-08 00:00 :00 No [id number] 1{tbl} Take 1 tablet by mouth every 4 (four) hours as needed for Pain (scale 7-10). [facility] butalbital- acetaminoph en-caff 50-325-40 mg tablet 2021-0 5-19 00:00: 00 09-08 00:00 :00 No [id number] 1{tbl} Take 1 tablet by mouth every 4 (four) hours as needed for Pain (scale 7-10). [facility] butalbital- acetaminoph en-caff 50-325-40 mg tablet 2021-0 5-19 00:00: 00 09-08 00:00 :00 No [id number] 1{tbl} Take 1 tablet by mouth every 4 (four) hours as needed for Pain (scale 7-10). [facility] SITagliptin (JANUVIA) 100 mg tablet 2021-0 08-30 00:00: 00 Yes [id number] 100mg Take 1 tablet by mouth daily. [facility] lisinopriL 2.5 mg tablet 2021-0 08-30 00:00: 00 Yes [id number] 2.5mg Take 1 tablet by mouth daily. [facility] SITagliptin (JANUVIA) 100 mg tablet 2021-0 08-30 00:00: 00 Yes [id number] 100mg Take 1 tablet by mouth daily. [facility] lisinopriL 2.5 mg tablet 2021-0 08-30 00:00: 00 Yes [id number] 2.5mg Take 1 tablet by mouth daily. [facility] SITagliptin (JANUVIA) 100 mg tablet 2021-0 08-30 00:00: 00 Yes [id number] 100mg Take 1 tablet by mouth daily. [facility] lisinopriL 2.5 mg tablet 2021-0 08-30 00:00: 00 Yes [id number] 2.5mg Take 1 tablet by mouth daily. [facility] SITagliptin (JANUVIA) 100 mg tablet 2021-0 08-30 00:00: 00 Yes [id number] 100mg Take 1 tablet by mouth daily. [facility] lisinopriL 2.5 mg tablet 2021-0 08-30 00:00: 00 Yes [id number] 2.5mg Take 1 tablet by mouth daily. [facility] SITagliptin (JANUVIA) 100 mg tablet 2021-0 08-30 00:00: 00 Yes [id number] 100mg Take 1 tablet by mouth daily. [facility] lisinopriL 2.5 mg tablet 2021-0 08-30 00:00: 00 Yes [id number] 2.5mg Take 1 tablet by mouth daily. [facility] SITagliptin (JANUVIA) 100 mg tablet 2-0 08-30 00:00: 00 Yes [id number] 100mg Take 1 tablet by mouth daily. [facility] lisinopriL 2.5 mg tablet 2021-0 08-30 00:00: 00 Yes [id number] 2.5mg Take 1 tablet by mouth daily. [facility] SITagliptin (JANUVIA) 100 mg tablet 0 08-30 00:00: 00 Yes [id number] 100mg Take 1 tablet by mouth daily. [facility] lisinopriL 2.5 mg tablet 0 08-30 00:00: 00 Yes [id number] 2.5mg Take 1 tablet by mouth daily. [facility] SITagliptin (JANUVIA) 100 mg tablet 2021-0 08-30 00:00: 00 Yes [id number] 100mg Take 1 tablet by mouth daily. [facility] lisinopriL 2.5 mg tablet 08-30 00:00: 00 Yes [id number] 2.5mg Take 1 tablet by mouth daily. [facility] SITagliptin (JANUVIA) 100 mg tablet 0 08-30 00:00: 00 Yes [id number] 100mg Take 1 tablet by mouth daily. [facility] lisinopriL 2.5 mg tablet 0 08-30 00:00: 00 Yes [id number] 2.5mg Take 1 tablet by mouth daily. [facility] SITagliptin (JANUVIA) 100 mg tablet 0 08-30 00:00: 00 Yes [id number] 100mg Take 1 tablet by mouth daily. [facility] lisinopriL 2.5 mg tablet 2021-0 08-30 00:00: 00 Yes [id number] 2.5mg Take 1 tablet by mouth daily. [facility] SITagliptin (JANUVIA) 100 mg tablet 2021-0 08-30 00:00: 00 Yes [id number] 100mg Take 1 tablet by mouth daily. [facility] lisinopriL 2.5 mg tablet 2021-0 08-30 00:00: 00 Yes [id number] 2.5mg Take 1 tablet by mouth daily. [facility] SITagliptin (JANUVIA) 100 mg tablet 0 25 00:00: 00 Yes [id number] 100mg Take 1 tablet by mouth daily. [facility] lisinopriL 2.5 mg tablet 2021-0 08-30 00:00: 00 Yes [id number] 2.5mg Take 1 tablet by mouth daily. [facility] SITagliptin (JANUVIA) 100 mg tablet 2021-0 08-30 00:00: 00 Yes [id number] 100mg Take 1 tablet by mouth daily. [facility] lisinopriL 2.5 mg tablet 2021-0 08-30 00:00: 00 Yes [id number] 2.5mg Take 1 tablet by mouth daily. [facility] SITagliptin (JANUVIA) 100 mg tablet 2021-0 08-30 00:00: 00 Yes [id number] 100mg Take 1 tablet by mouth daily. [facility] lisinopriL 2.5 mg tablet 2021-0 08-30 00:00: 00 Yes [id number] 2.5mg Take 1 tablet by mouth daily. [facility] SITagliptin (JANUVIA) 100 mg tablet 2021-0 08-30 00:00: 00 Yes [id number] 100mg Take 1 tablet by mouth daily. [facility] lisinopriL 2.5 mg tablet 2021-0 08-30 00:00: 00 Yes [id number] 2.5mg Take 1 tablet by mouth daily. [facility] SITagliptin (JANUVIA) 100 mg tablet 2021-0 08-30 00:00: 00 Yes [id number] 100mg Take 1 tablet by mouth daily. [facility] lisinopriL 2.5 mg tablet 2021-0 25 00:00: 00 Yes [id number] 2.5mg Take 1 tablet by mouth daily. [facility] lisinopriL 2.5 mg tablet 2021-0 25 00:00: 00 Yes [id number] 2.5mg Take 1 tablet by mouth daily. [facility] lisinopriL 2.5 mg tablet 2021-0 325 00:00: 00 Yes [id number] 2.5mg Take 1 tablet by mouth daily. [facility] lisinopriL 2.5 mg tablet 2-0 3-25 00:00: 00 Yes [id number] 2.5mg Take 1 tablet by mouth daily. [facility] lisinopriL 2.5 mg tablet 2-0 3-25 00:00: 00 Yes [id number] 2.5mg Take 1 tablet by mouth daily. [facility] lisinopriL 2.5 mg tablet 2-0 3-25 00:00: 00 Yes [id number] 2.5mg Take 1 tablet by mouth daily. [facility] lisinopriL 2.5 mg tablet 2-0 3-25 00:00: 00 Yes [id number] 2.5mg Take 1 tablet by mouth daily. [facility] lisinopriL 2.5 mg tablet 2-0 3-25 00:00: 00 Yes [id number] 2.5mg Take 1 tablet by mouth daily. [facility] lisinopriL 2.5 mg tablet 2-0 3-25 00:00: 00 Yes [id number] 2.5mg Take 1 tablet by mouth daily. [facility] lisinopriL 2.5 mg tablet 2-0 3-25 00:00: 00 Yes [id number] 2.5mg Take 1 tablet by mouth daily. [facility] lisinopriL 2.5 mg tablet 2-0 3-25 00:00: 00 Yes [id number] 2.5mg Take 1 tablet by mouth daily. [facility] lisinopriL 2.5 mg tablet 2-0 3-25 00:00: 00 Yes [id number] 2.5mg Take 1 tablet by mouth daily. [facility] lisinopriL 2.5 mg tablet 2-0 3-25 00:00: 00 Yes [id number] 2.5mg Take 1 tablet by mouth daily. [facility] lisinopriL 2.5 mg tablet 2-0 3-25 00:00: 00 20209-08 00:00 :00 No [id number] 2.5mg Take 1 tablet by mouth daily. [facility] lisinopriL 2.5 mg tablet 325 00:00: 00 09-08 00:00 :00 No [id number] 2.5mg Take 1 tablet by mouth daily. [facility] lisinopriL 2.5 mg tablet 325 00:00: 00 09-08 00:00 :00 No [id number] 2.5mg Take 1 tablet by mouth daily. [facility] lisinopriL 2.5 mg tablet 08-30 00:00: 00 09-08 00:00 :00 No [id number] 2.5mg Take 1 tablet by mouth daily. [facility] SITagliptin (JANUVIA) 100 mg tablet 08-30 00:00: 00 06-27 00:00 :00 No [id number] 100mg Take 1 tablet by mouth daily. [facility] SITagliptin (JANUVIA) 100 mg tablet 08-30 00:00: 00 06-27 00:00 :00 No [id number] 100mg Take 1 tablet by mouth daily. [facility] SITagliptin (JANUVIA) 100 mg tablet 08-30 00:00: 00 06-27 00:00 :00 No [id number] 100mg Take 1 tablet by mouth daily. [facility] canaglifloz in (INVOKANA) 100 mg tablet 08-30 00:00: 00 10-15 00:00 :00 No [id number] 100mg Take 1 tablet by mouth daily. [facility] mupirocin 2 % ointment 06-28 00:00: 00 Yes [id number] Apply to area(s) 3 (three) times daily. [facility] mupirocin 2 % ointment 06-28 00:00: 00 Yes [id number] Apply to area(s) 3 (three) times daily. [facility] mupirocin 2 % ointment 06-28 00:00: 00 Yes [id number] Apply to area(s) 3 (three) times daily. [facility] mupirocin 2 % ointment 2021-0 06-28 00:00: 00 Yes [id number] Apply to area(s) 3 (three) times daily. [facility] mupirocin 2 % ointment 2021-0 06-28 00:00: 00 Yes [id number] Apply to area(s) 3 (three) times daily. [facility] mupirocin 2 % ointment 2021-0 06-28 00:00: 00 Yes [id number] Apply to area(s) 3 (three) times daily. [facility] mupirocin 2 % ointment 2021-0 06-28 00:00: 00 Yes [id number] Apply to area(s) 3 (three) times daily. [facility] mupirocin 2 % ointment 2021-0 06-28 00:00: 00 Yes [id number] Apply to area(s) 3 (three) times daily. [facility] mupirocin 2 % ointment 2021-0 06-28 00:00: 00 Yes [id number] Apply to area(s) 3 (three) times daily. [facility] mupirocin 2 % ointment 2021-0 06-28 00:00: 00 Yes [id number] Apply to area(s) 3 (three) times daily. [facility] mupirocin 2 % ointment 2-0 06-28 00:00: 00 Yes [id number] Apply to area(s) 3 (three) times daily. [facility] mupirocin 2 % ointment 2-0 06-28 00:00: 00 Yes [id number] Apply to area(s) 3 (three) times daily. [facility] mupirocin 2 % ointment 2-0 21 00:00: 00 Yes [id number] Apply to area(s) 3 (three) times daily. [facility] mupirocin 2 % ointment 2-0 06-28 00:00: 00 Yes [id number] Apply to area(s) 3 (three) times daily. [facility] mupirocin 2 % ointment 2021-0 06-28 00:00: 00 Yes [id number] Apply to area(s) 3 (three) times daily. [facility] mupirocin 2 % ointment 2021-0 06-28 00:00: 00 Yes [id number] Apply to area(s) 3 (three) times daily. [facility] mupirocin 2 % ointment 2-0 06-28 00:00: 00 Yes [id number] Apply to area(s) 3 (three) times daily. [facility] mupirocin 2 % ointment 2021-0 06-28 00:00: 00 Yes [id number] Apply to area(s) 3 (three) times daily. [facility] mupirocin 2 % ointment 2021-0 06-28 00:00: 00 Yes [id number] Apply to area(s) 3 (three) times daily. [facility] mupirocin 2 % ointment 2021-0 06-28 00:00: 00 Yes [id number] Apply to area(s) 3 (three) times daily. [facility] mupirocin 2 % ointment 2021-0 06-28 00:00: 00 Yes [id number] Apply to area(s) 3 (three) times daily. [facility] mupirocin 2 % ointment 2021-0 06-28 00:00: 00 Yes [id number] Apply to area(s) 3 (three) times daily. [facility] mupirocin 2 % ointment 2-0 21 00:00: 00 Yes [id number] Apply to area(s) 3 (three) times daily. [facility] mupirocin 2 % ointment 2-0 21 00:00: 00 Yes [id number] Apply to area(s) 3 (three) times daily. [facility] mupirocin 2 % ointment 06-28 00:00: 00 Yes [id number] Apply to area(s) 3 (three) times daily. [facility] mupirocin 2 % ointment 06-28 00:00: 00 Yes [id number] Apply to area(s) 3 (three) times daily. [facility] mupirocin 2 % ointment 06-28 00:00: 00 Yes [id number] Apply to area(s) 3 (three) times daily. [facility] mupirocin 2 % ointment 06-28 00:00: 00 Yes [id number] Apply to area(s) 3 (three) times daily. [facility] mupirocin 2 % ointment 06-28 00:00: 00 09-08 00:00 :00 No [id number] Apply to area(s) 3 (three) times daily. [facility] mupirocin 2 % ointment 06-28 00:00: 00 09-08 00:00 :00 No [id number] Apply to area(s) 3 (three) times daily. [facility] mupirocin 2 % ointment 06-28 00:00: 00 09-08 00:00 :00 No [id number] Apply to area(s) 3 (three) times daily. [facility] mupirocin 2 % ointment 06-28 00:00: 00 09-08 00:00 :00 No [id number] Apply to area(s) 3 (three) times daily. [facility] naproxen 500 mg tablet 2020-06 00:00: 00 06-23 05:59 :00 No [id number] 9100 500mg Take 1 tablet by mouth 2 (two) times daily as needed for Pain (scale 4-6) for up to 30 days. [facility] pantoprazol e 40 mg EC tablet 2020-06 00:00: 00 Yes [facility] pantoprazol e 40 mg EC tablet 2020-06 00:00: 00 Yes [facility] pantoprazol e 40 mg EC tablet 2020-06 00:00: 00 Yes [facility] pantoprazol e 40 mg EC tablet 2020-06 00:00: 00 Yes [facility] pantoprazol e 40 mg EC tablet 2020-06 00:00: 00 Yes [facility] pantoprazol e 40 mg EC tablet 2020-06 00:00: 00 Yes [facility] pantoprazol e 40 mg EC tablet 2020-06 00:00: 00 Yes [facility] pantoprazol e 40 mg EC tablet 2020-06 00:00: 00 Yes [facility] pantoprazol e 40 mg EC tablet 2020-06 00:00: 00 Yes [facility] pantoprazol e 40 mg EC tablet 2020-06 00:00: 00 Yes [facility] pantoprazol e 40 mg EC tablet 2020-06 00:00: 00 Yes [facility] pantoprazol e 40 mg EC tablet 2020-06 00:00: 00 Yes [facility] pantoprazol e 40 mg EC tablet 2020-06 00:00: 00 Yes [facility] pantoprazol e 40 mg EC tablet 2020-06 00:00: 00 Yes [facility] pantoprazol e 40 mg EC tablet 2020-06 00:00: 00 Yes [facility] pantoprazol e 40 mg EC tablet 2020-06 00:00: 00 Yes [facility] pantoprazol e 40 mg EC tablet 2020-06 00:00: 00 Yes [facility] pantoprazol e 40 mg EC tablet 2020-06 00:00: 00 Yes [facility] pantoprazol e 40 mg EC tablet 2020-06 00:00: 00 Yes [facility] pantoprazol e 40 mg EC tablet 2020-06 00:00: 00 Yes [facility] pantoprazol e 40 mg EC tablet 2020-06 00:00: 00 Yes [facility] pantoprazol e 40 mg EC tablet 2020-06 00:00: 00 Yes [facility] pantoprazol e 40 mg EC tablet 2020-06 00:00: 00 Yes [facility] pantoprazol e 40 mg EC tablet 2020-06 00:00: 00 Yes [facility] pantoprazol e 40 mg EC tablet 2020-06 00:00: 00 Yes [facility] pantoprazol e 40 mg EC tablet 2020-06 00:00: 00 Yes [facility] pantoprazol e 40 mg EC tablet 2020-06 00:00: 00 Yes [facility] pantoprazol e 40 mg EC tablet 2020-06 00:00: 00 Yes [facility] pantoprazol e 40 mg EC tablet 2020-06 00:00: 00 09-08 00:00 :00 No [facility] pantoprazol e 40 mg EC tablet 2020-06 00:00: 00 09-08 00:00 :00 No [facility] pantoprazol e 40 mg EC tablet 2020-06 00:00: 00 09-08 00:00 :00 No [facility] pantoprazol e 40 mg EC tablet 2020-06 00:00: 00 09-08 00:00 :00 No [facility] pantoprazol e 40 mg EC tablet 2020-06 00:00: 00 09-08 00:00 :00 No [facility] famotidine 20 mg tablet 2020-06 00:00: 00 Yes [facility] famotidine 20 mg tablet 2020-06 00:00: 00 Yes [facility] famotidine 20 mg tablet 2020-06 00:00: 00 Yes [facility] famotidine 20 mg tablet 2020-06 00:00: 00 Yes [facility] famotidine 20 mg tablet 2020-06 00:00: 00 Yes [facility] famotidine 20 mg tablet 2020-06 00:00: 00 Yes [facility] famotidine 20 mg tablet 2020-06 00:00: 00 Yes [facility] famotidine 20 mg tablet 2020-06 00:00: 00 Yes [facility] famotidine 20 mg tablet 2020-06 00:00: 00 Yes [facility] famotidine 20 mg tablet 2020-06 00:00: 00 Yes [facility] famotidine 20 mg tablet 2020-06 00:00: 00 Yes [facility] famotidine 20 mg tablet 2020-06 00:00: 00 Yes [facility] famotidine 20 mg tablet 2020-06 00:00: 00 Yes [facility] famotidine 20 mg tablet 2020-06 00:00: 00 Yes [facility] famotidine 20 mg tablet 2020-06 00:00: 00 Yes [facility] famotidine 20 mg tablet 2020-06 00:00: 00 Yes [facility] famotidine 20 mg tablet 2020-06 00:00: 00 Yes [facility] famotidine 20 mg tablet 2020-06 00:00: 00 Yes [facility] famotidine 20 mg tablet 2020-06 00:00: 00 Yes [facility] famotidine 20 mg tablet 2020-06 00:00: 00 Yes [facility] famotidine 20 mg tablet 2020-06 00:00: 00 Yes [facility] famotidine 20 mg tablet 2020-06 00:00: 00 Yes [facility] famotidine 20 mg tablet 2020-06 00:00: 00 Yes [facility] famotidine 20 mg tablet 2020-06 00:00: 00 Yes [facility] famotidine 20 mg tablet 2020-06 00:00: 00 Yes [facility] famotidine 20 mg tablet 2020-06 00:00: 00 Yes [facility] famotidine 20 mg tablet 2020-06 00:00: 00 Yes [facility] famotidine 20 mg tablet 2020-06 00:00: 00 Yes [facility] famotidine 20 mg tablet 2020-06 00:00: 00 09-08 00:00 :00 No [facility] famotidine 20 mg tablet 2020-06 00:00: 00 09-08 00:00 :00 No [facility] famotidine 20 mg tablet 2020-06 00:00: 00 09-08 00:00 :00 No [facility] famotidine 20 mg tablet 2020-06 00:00: 00 09-08 00:00 :00 No [facility] famotidine 20 mg tablet 2020-06 00:00: 00 09-08 00:00 :00 No [facility] ibuprofen 800 mg tablet 2020-06 00:00: 00 01-17 00:00 :00 No [facility] ibuprofen 800 mg tablet 2020-06 00:00: 00 01-17 00:00 :00 No [facility] SUMAtriptan 50 mg tablet 2020-06 00:00: 00 Yes [facility] SUMAtriptan 50 mg tablet 2020-06 00:00: 00 Yes [facility] SUMAtriptan 50 mg tablet 2020-06 00:00: 00 Yes [facility] SUMAtriptan 50 mg tablet 2020-06 00:00: 00 Yes [facility] SUMAtriptan 50 mg tablet 2020-06 00:00: 00 Yes [facility] SUMAtriptan 50 mg tablet 2020-06 00:00: 00 Yes [facility] SUMAtriptan 50 mg tablet 2020-06 00:00: 00 Yes [facility] SUMAtriptan 50 mg tablet 2020-06 00:00: 00 Yes [facility] SUMAtriptan 50 mg tablet 2020-06 00:00: 00 Yes [facility] SUMAtriptan 50 mg tablet 2020-06 00:00: 00 Yes [facility] SUMAtriptan 50 mg tablet 2020-06 00:00: 00 Yes [facility] SUMAtriptan 50 mg tablet 2020-06 00:00: 00 Yes [facility] SUMAtriptan 50 mg tablet 2020-06 00:00: 00 Yes [facility] SUMAtriptan 50 mg tablet 2020-06 00:00: 00 Yes [facility] SUMAtriptan 50 mg tablet 2020-06 00:00: 00 Yes [facility] SUMAtriptan 50 mg tablet 2020-06 00:00: 00 Yes [facility] SUMAtriptan 50 mg tablet 2020-06 00:00: 00 Yes [facility] SUMAtriptan 50 mg tablet 2020-06 00:00: 00 Yes [facility] SUMAtriptan 50 mg tablet 2020-06 00:00: 00 Yes [facility] SUMAtriptan 50 mg tablet 2020-06 00:00: 00 Yes [facility] SUMAtriptan 50 mg tablet 2020-06 00:00: 00 Yes [facility] SUMAtriptan 50 mg tablet 2020-06 00:00: 00 Yes [facility] SUMAtriptan 50 mg tablet 2020-06 00:00: 00 Yes [facility] SUMAtriptan 50 mg tablet 2020-06 00:00: 00 Yes [facility] SUMAtriptan 50 mg tablet 2020-06 00:00: 00 Yes [facility] SUMAtriptan 50 mg tablet 2020-06 00:00: 00 Yes [facility] SUMAtriptan 50 mg tablet 2020-06 00:00: 00 Yes [facility] SUMAtriptan 50 mg tablet 2020-06 00:00: 00 Yes [facility] SUMAtriptan 50 mg tablet 2020-06 00:00: 00 09-08 00:00 :00 No [facility] SUMAtriptan 50 mg tablet 2020-06 00:00: 00 09-08 00:00 :00 No [facility] SUMAtriptan 50 mg tablet 2020-06 00:00: 00 09-08 00:00 :00 No [facility] SUMAtriptan 50 mg tablet 2020-06 00:00: 00 09-08 00:00 :00 No [facility] SUMAtriptan 50 mg tablet 2020-06 00:00: 00 09-08 00:00 :00 No [facility] fluticasone propionate 50 mcg/actuati on nasal spray 2020-06 0 00:00: 00 Yes [id number] 1{spray } Use 1 [place] in each nostril daily. [facility] fluticasone propionate 50 mcg/actuati on nasal spray 2020-06 020 00:00: 00 Yes [id number] 1{spray } Use 1 [place] in each nostril daily. [facility] fluticasone propionate 50 mcg/actuati on nasal spray 2020-06 0-20 00:00: 00 Yes [id number] 1{spray } Use 1 [place] in each nostril daily. [facility] fluticasone propionate 50 mcg/actuati on nasal spray 2020-06 0-20 00:00: 00 Yes [id number] 1{spray } Use 1 [place] in each nostril daily. [facility] fluticasone propionate 50 mcg/actuati on nasal spray 2020-06 0-20 00:00: 00 Yes [id number] 1{spray } Use 1 [place] in each nostril daily. [facility] fluticasone propionate 50 mcg/actuati on nasal spray 2020-06 0-20 00:00: 00 Yes [id number] 1{spray } Use 1 [place] in each nostril daily. [facility] fluticasone propionate 50 mcg/actuati on nasal spray 2020-06 0-20 00:00: 00 Yes [id number] 1{spray } Use 1 [place] in each nostril daily. [facility] fluticasone propionate 50 mcg/actuati on nasal spray 2020-06 020 00:00: 00 Yes [id number] 1{spray } Use 1 [place] in each nostril daily. [facility] fluticasone propionate 50 mcg/actuati on nasal spray 2020-06 020 00:00: 00 Yes [id number] 1{spray } Use 1 [place] in each nostril daily. [facility] fluticasone propionate 50 mcg/actuati on nasal spray 2020-06 0-20 00:00: 00 Yes [id number] 1{spray } Use 1 [place] in each nostril daily. [facility] fluticasone propionate 50 mcg/actuati on nasal spray 2020-06 0-20 00:00: 00 Yes [id number] 1{spray } Use 1 [place] in each nostril daily. [facility] fluticasone propionate 50 mcg/actuati on nasal spray 2020-06 0-20 00:00: 00 Yes [id number] 1{spray } Use 1 [place] in each nostril daily. [facility] fluticasone propionate 50 mcg/actuati on nasal spray 2020-06 0-20 00:00: 00 Yes [id number] 1{spray } Use 1 [place] in each nostril daily. [facility] fluticasone propionate 50 mcg/actuati on nasal spray 2020-06 0-20 00:00: 00 Yes [id number] 1{spray } Use 1 [place] in each nostril daily. [facility] fluticasone propionate 50 mcg/actuati on nasal spray 2020-06 0-20 00:00: 00 Yes [id number] 1{spray } Use 1 [place] in each nostril daily. [facility] fluticasone propionate 50 mcg/actuati on nasal spray 2020-06 0-20 00:00: 00 Yes [id number] 1{spray } Use 1 [place] in each nostril daily. [facility] fluticasone propionate 50 mcg/actuati on nasal spray 2020-06 0-20 00:00: 00 Yes [id number] 1{spray } Use 1 [place] in each nostril daily. [facility] fluticasone propionate 50 mcg/actuati on nasal spray 2020-06 0-20 00:00: 00 Yes [id number] 1{spray } Use 1 [place] in each nostril daily. [facility] fluticasone propionate 50 mcg/actuati on nasal spray 2020-06 0-20 00:00: 00 Yes [id number] 1{spray } Use 1 [place] in each nostril daily. [facility] fluticasone propionate 50 mcg/actuati on nasal spray 2020-06 0-20 00:00: 00 Yes [id number] 1{spray } Use 1 [place] in each nostril daily. [facility] fluticasone propionate 50 mcg/actuati on nasal spray 2020-06 0-20 00:00: 00 Yes [id number] 1{spray } Use 1 [place] in each nostril daily. [facility] fluticasone propionate 50 mcg/actuati on nasal spray 2020-06 0-20 00:00: 00 Yes [id number] 1{spray } Use 1 [place] in each nostril daily. [facility] fluticasone propionate 50 mcg/actuati on nasal spray 2020-06 0-20 00:00: 00 Yes [id number] 1{spray } Use 1 [place] in each nostril daily. [facility] fluticasone propionate 50 mcg/actuati on nasal spray 2020-06 0-20 00:00: 00 Yes [id number] 1{spray } Use 1 [place] in each nostril daily. [facility] fluticasone propionate 50 mcg/actuati on nasal spray 2020-06 0-20 00:00: 00 Yes [id number] 1{spray } Use 1 [place] in each nostril daily. [facility] fluticasone propionate 50 mcg/actuati on nasal spray 2020-06 0-20 00:00: 00 Yes [id number] 1{spray } Use 1 [place] in each nostril daily. [facility] fluticasone propionate 50 mcg/actuati on nasal spray 2020-06 0-20 00:00: 00 Yes [id number] 1{spray } Use 1 [place] in each nostril daily. [facility] fluticasone propionate 50 mcg/actuati on nasal spray 2020-06 0-20 00:00: 00 Yes [id number] 1{spray } Use 1 [place] in each nostril daily. [facility] fluticasone propionate 50 mcg/actuati on nasal spray 2020-06 0-20 00:00: 00 09-08 00:00 :00 No [id number] 1{spray } Use 1 [place] in each nostril daily. [facility] fluticasone propionate 50 mcg/actuati on nasal spray 2020-06 0-20 00:00: 00 09-08 00:00 :00 No [id number] 1{spray } Use 1 [place] in each nostril daily. [facility] fluticasone propionate 50 mcg/actuati on nasal spray 2020-06 0-20 00:00: 00 09-08 00:00 :00 No [id number] 1{spray } Use 1 [place] in each nostril daily. [facility] fluticasone propionate 50 mcg/actuati on nasal spray 2020-06 0-20 00:00: 00 09-08 00:00 :00 No [id number] 1{spray } Use 1 [place] in each nostril daily. [facility] fluticasone propionate 50 mcg/actuati on nasal spray 2020-06 0-20 00:00: 00 09-08 00:00 :00 No [id number] 1{spray } Use 1 [place] in each nostril daily. [facility] guaiFENesin 400 mg tablet 2020-06 0-20 00:00: 00 01-17 00:00 :00 No [id number] 400mg Take 1 tablet by mouth every 4 (four) hours as needed for Cough. [facility] ciprofloxac in-dexameth asone (CIPRODEX) 0.3-0.1 % otic drops 2020-06 0- 00:00: 00 01-17 00:00 :00 No [id number] 4[drp] Place 4 Drops in right ear 2 (two) times daily. [facility] guaiFENesin 400 mg tablet 2020-06 0-20 00:00: 00 01-17 00:00 :00 No [id number] 400mg Take 1 tablet by mouth every 4 (four) hours as needed for Cough. [facility] ciprofloxac in-dexameth asone (CIPRODEX) 0.3-0.1 % otic drops 2020-06 0-20 00:00: 00 01-17 00:00 :00 No [id number] 4[drp] Place 4 Drops in right ear 2 (two) times daily. [facility] glimepiride 2 mg tablet 2020-06 0-12 00:00: 00 06-20 00:00 :00 No [facility] metFORMIN 500 mg tablet 9- 00:00: 00 06-20 00:00 :00 No [facility] acetaminoph en 650 mg CR tablet 6- 00:00: 00 Yes [id number] 650mg Take 1 tablet by mouth every 8 (eight) hours as needed for Pain or Fever. [facility] acetaminoph en 650 mg CR tablet 0 10 00:00: 00 Yes [id number] 650mg Take 1 tablet by mouth every 8 (eight) hours as needed for Pain or Fever. [facility] acetaminoph en 650 mg CR tablet 2020-0 610 00:00: 00 Yes [id number] 650mg Take 1 tablet by mouth every 8 (eight) hours as needed for Pain or Fever. [facility] acetaminoph en 650 mg CR tablet 0 10 00:00: 00 Yes [id number] 650mg Take 1 tablet by mouth every 8 (eight) hours as needed for Pain or Fever. [facility] acetaminoph en 650 mg CR tablet 2020-0 10 00:00: 00 Yes [id number] 650mg Take 1 tablet by mouth every 8 (eight) hours as needed for Pain or Fever. [facility] acetaminoph en 650 mg CR tablet 2020-0 10 00:00: 00 Yes [id number] 650mg Take 1 tablet by mouth every 8 (eight) hours as needed for Pain or Fever. [facility] acetaminoph en 650 mg CR tablet 0 10 00:00: 00 Yes [id number] 650mg Take 1 tablet by mouth every 8 (eight) hours as needed for Pain or Fever. [facility] acetaminoph en 650 mg CR tablet 2020-0 10 00:00: 00 Yes [id number] 650mg Take 1 tablet by mouth every 8 (eight) hours as needed for Pain or Fever. [facility] acetaminoph en 650 mg CR tablet 2020-0 6-10 00:00: 00 Yes [id number] 650mg Take 1 tablet by mouth every 8 (eight) hours as needed for Pain or Fever. [facility] acetaminoph en 650 mg CR tablet 2020-0 6-10 00:00: 00 Yes [id number] 650mg Take 1 tablet by mouth every 8 (eight) hours as needed for Pain or Fever. [facility] acetaminoph en 650 mg CR tablet 2020-0 6-10 00:00: 00 Yes [id number] 650mg Take 1 tablet by mouth every 8 (eight) hours as needed for Pain or Fever. [facility] 2020-0 10 00:00: 00 Yes [id number] 650mg Take 1 tablet by mouth every 8 (eight) hours as needed for Pain or Fever. [facility] 650 mg CR tablet 2020-0 -10 00:00: 00 Yes [id number] 650mg Take 1 tablet by mouth every 8 (eight) hours as needed for Pain or Fever. [facility] acetaminoph en 650 mg CR tablet 2020-0 10 00:00: 00 Yes [id number] 650mg Take 1 tablet by mouth every 8 (eight) hours as needed for Pain or Fever. [facility] acetaminoph en 650 mg CR tablet 2020-0 10 00:00: 00 Yes [id number] 650mg Take 1 tablet by mouth every 8 (eight) hours as needed for Pain or Fever. [facility] acetaminoph en 650 mg CR tablet 2020-0 10 00:00: 00 Yes [id number] 650mg Take 1 tablet by mouth every 8 (eight) hours as needed for Pain or Fever. [facility] acetaminoph en 650 mg CR tablet 2020-0 10 00:00: 00 Yes [id number] 650mg Take 1 tablet by mouth every 8 (eight) hours as needed for Pain or Fever. [facility] acetaminoph en 650 mg CR tablet 2020-0 10 00:00: 00 Yes [id number] 650mg Take 1 tablet by mouth every 8 (eight) hours as needed for Pain or Fever. [facility] acetaminoph en 650 mg CR tablet 2020-0 6-10 00:00: 00 Yes [id number] 650mg Take 1 tablet by mouth every 8 (eight) hours as needed for Pain or Fever. [facility] acetaminoph en 650 mg CR tablet 2020-0 6-10 00:00: 00 Yes [id number] 650mg Take 1 tablet by mouth every 8 (eight) hours as needed for Pain or Fever. [facility] acetaminoph en 650 mg CR tablet 2020-0 6-10 00:00: 00 Yes [id number] 650mg Take 1 tablet by mouth every 8 (eight) hours as needed for Pain or Fever. [facility] tablet 2020-0 6-10 00:00: 00 Yes [id number] 650mg Take 1 tablet by mouth every 8 (eight) hours as needed for Pain or Fever. [facility] acetaminoph en 650 mg CR tablet 2020-0 6-10 00:00: 00 Yes [id number] 650mg Take 1 tablet by mouth every 8 (eight) hours as needed for Pain or Fever. [facility] acetaminoph en 650 mg CR tablet 2020-0 6-10 00:00: 00 Yes [id number] 650mg Take 1 tablet by mouth every 8 (eight) hours as needed for Pain or Fever. [facility] acetaminoph en 650 mg CR tablet 2020-0 6-10 00:00: 00 Yes [id number] 650mg Take 1 tablet by mouth every 8 (eight) hours as needed for Pain or Fever. [facility] acetaminoph en 650 mg CR tablet 2020-0 610 00:00: 00 Yes [id number] 650mg Take 1 tablet by mouth every 8 (eight) hours as needed for Pain or Fever. [facility] acetaminoph en 650 mg CR tablet 0 610 00:00: 00 Yes [id number] 650mg Take 1 tablet by mouth every 8 (eight) hours as needed for Pain or Fever. [facility] acetaminoph en 650 mg CR tablet 2020-0 6-10 00:00: 00 Yes [id number] 650mg Take 1 tablet by mouth every 8 (eight) hours as needed for Pain or Fever. [facility] acetaminoph en 650 mg CR tablet 2020-0 6-10 00:00: 00 09-08 00:00 :00 No [id number] 650mg Take 1 tablet by mouth every 8 (eight) hours as needed for Pain or Fever. [facility] acetaminoph en 650 mg CR tablet 2020-0 6-10 00:00: 00 09-08 00:00 :00 No [id number] 650mg Take 1 tablet by mouth every 8 (eight) hours as needed for Pain or Fever. [facility] acetaminoph en 650 mg CR tablet 11-15 00:00: 00 09-08 00:00 :00 No [id number] 650mg Take 1 tablet by mouth every 8 (eight) hours as needed for Pain or Fever. [facility] acetaminoph en 650 mg CR tablet 11-15 00:00: 00 09-08 00:00 :00 No [id number] 650mg Take 1 tablet by mouth every 8 (eight) hours as needed for Pain or Fever. [facility] acetaminoph en 650 mg CR tablet 11-15 00:00: 00 09-08 00:00 :00 No [id number] 650mg Take 1 tablet by mouth every 8 (eight) hours as needed for Pain or Fever. [facility] Diclofenac Sodium (VOLTAREN) 1 % gel 11-15 00:00: 00 02-07 00:00 :00 No [id number] Apply to area(s) 4 (four) times daily. Apply 4 g qid [facility] Diclofenac Sodium (VOLTAREN) 1 % gel 11-15 00:00: 00 02-07 00:00 :00 No [id number] Apply to area(s) 4 (four) times daily. Apply 4 g qid [facility] amoxicillin -clavulanat e (AUGMENTIN) 875-125 mg per tablet 11-15 00:00: 00 01-17 00:00 :00 No [id number] 1{tbl} Take 1 tablet by mouth 2 (two) times daily. [facility] amoxicillin -clavulanat e (AUGMENTIN) 875-125 mg per tablet 11-15 00:00: 00 01-17 00:00 :00 No [id number] 1{tbl} Take 1 tablet by mouth 2 (two) times daily. [facility] 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 A 150 mg/mL syringe 11-08 00:00: 00 Yes [facility] DE[employer]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 A 150 mg/mL syringe 1-0 11-08 00:00: 00 Yes [facility] [employer]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 A 150 mg/mL syringe 1-0 11-08 00:00: 00 Yes [facility] [employer]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 A 150 mg/mL syringe 1-0 11-08 00:00: 00 Yes [facility] [employer]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 A 150 mg/mL syringe 2021-0 11-08 00:00: 00 Yes [facility] [employer]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 A 150 mg/mL syringe 1-0 11-08 00:00: 00 Yes [facility] [employer]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 A 150 mg/mL syringe 1-0 11-08 00:00: 00 Yes [facility] [employer]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 A 150 mg/mL syringe 1-0 11-08 00:00: 00 Yes [facility] [employer]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 A 150 mg/mL syringe 1-0 11-08 00:00: 00 Yes [facility] [employer]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 A 150 mg/mL syringe 1-0 11-08 00:00: 00 Yes [facility] [employer]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 A 150 mg/mL syringe 1-0 11-08 00:00: 00 Yes [facility] [employer]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 A 150 mg/mL syringe 1-0 11-08 00:00: 00 Yes [facility] DE[employer]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 A 150 mg/mL syringe 1-0 11-08 00:00: 00 Yes [facility] DE[employer]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 A 150 mg/mL syringe 1-0 11-08 00:00: 00 Yes [facility] DE[employer]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 A 150 mg/mL syringe 1-0 11-08 00:00: 00 Yes [facility] [employer]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 A 150 mg/mL syringe 1-0 11-08 00:00: 00 Yes [facility] DE[employer]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 A 150 mg/mL syringe 1-0 11-08 00:00: 00 Yes [facility] DE[employer]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 A 150 mg/mL syringe 1-0 11-08 00:00: 00 Yes [facility] DE[employer]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 A 150 mg/mL syringe 1-0 11-08 00:00: 00 Yes [facility] DE[employer]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 A 150 mg/mL syringe 1-0 11-08 00:00: 00 Yes [facility] DE[employer]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 A 150 mg/mL syringe 1-0 11-08 00:00: 00 Yes [facility] [employer]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 A 150 mg/mL syringe 1-0 11-08 00:00: 00 Yes [facility] DE[employer]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 A 150 mg/mL syringe 1-0 11-08 00:00: 00 Yes [facility] DE[employer]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 A 150 mg/mL syringe 1-0 11-08 00:00: 00 Yes [facility] DE[employer]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 A 150 mg/mL syringe 1-0 11-08 00:00: 00 Yes [facility] DE[employer]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 A 150 mg/mL syringe 1-0 11-08 00:00: 00 Yes [facility] DE[employer]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 A 150 mg/mL syringe 1-0 11-08 00:00: 00 Yes [facility] DE[employer]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 A 150 mg/mL syringe 1-0 11-08 00:00: 00 Yes [facility] DE[employer]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 A 150 mg/mL syringe 1-0 11-08 00:00: 00 09-08 00:00 :00 No [facility] DE[employer]-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 A 150 mg/mL syringe 1-0 11-08 00:00: 00 09-08 00:00 :00 No [facility] DE[employer]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 A 150 mg/mL syringe 1-0 11-08 00:00: 00 09-08 00:00 :00 No [facility] DE[employer]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 A 150 mg/mL syringe 1-0 11-08 00:00: 00 09-08 00:00 :00 No [facility] DE[employer]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 A 150 mg/mL syringe 11-08 00:00: 00 09-08 00:00 :00 No [facility] nystatin 100,000 unit/gram cream 0 10-05 00:00: 00 Yes [facility] nystatin 100,000 unit/gram cream 0 10-05 00:00: 00 Yes [facility] nystatin 100,000 unit/gram cream 0 10-05 00:00: 00 Yes [facility] nystatin 100,000 unit/gram cream 0 10-05 00:00: 00 Yes [facility] nystatin 100,000 unit/gram cream 0 10-05 00:00: 00 Yes [facility] nystatin 100,000 unit/gram cream 0 10-05 00:00: 00 Yes [facility] nystatin 100,000 unit/gram cream 0 10-05 00:00: 00 Yes [facility] nystatin 100,000 unit/gram cream 0 10-05 00:00: 00 Yes [facility] nystatin 100,000 unit/gram cream 0 10-05 00:00: 00 Yes [facility] nystatin 100,000 unit/gram cream 0 10-05 00:00: 00 Yes [facility] nystatin 100,000 unit/gram cream 0 10-05 00:00: 00 Yes [facility] nystatin 100,000 unit/gram cream 0 10-05 00:00: 00 Yes [facility] nystatin 100,000 unit/gram cream 0 10-05 00:00: 00 Yes [facility] nystatin 100,000 unit/gram cream 0 10-05 00:00: 00 Yes [facility] nystatin 100,000 unit/gram cream 0 10-05 00:00: 00 Yes [facility] nystatin 100,000 unit/gram cream 0 10-05 00:00: 00 Yes [facility] nystatin 100,000 unit/gram cream 0 10-05 00:00: 00 Yes [facility] nystatin 100,000 unit/gram cream 0 10-05 00:00: 00 Yes [facility] nystatin 100,000 unit/gram cream 0 10-05 00:00: 00 Yes [facility] nystatin 100,000 unit/gram cream 0 10-05 00:00: 00 Yes [facility] nystatin 100,000 unit/gram cream 0 10-05 00:00: 00 Yes [facility] nystatin 100,000 unit/gram cream 0 10-05 00:00: 00 Yes [facility] nystatin 100,000 unit/gram cream 0 10-05 00:00: 00 Yes [facility] nystatin 100,000 unit/gram cream 0 10-05 00:00: 00 Yes [facility] nystatin 100,000 unit/gram cream 0 10-05 00:00: 00 Yes [facility] nystatin 100,000 unit/gram cream 0 10-05 00:00: 00 Yes [facility] nystatin 100,000 unit/gram cream 0 10-05 00:00: 00 Yes [facility] nystatin 100,000 unit/gram cream 0 10-05 00:00: 00 Yes [facility] nystatin 100,000 unit/gram cream 0 10-05 00:00: 00 09-08 00:00 :00 No [facility] nystatin 100,000 unit/gram cream 0 10-05 00:00: 00 09-08 00:00 :00 No [facility] nystatin 100,000 unit/gram cream 0 10-05 00:00: 00 09-08 00:00 :00 No [facility] nystatin 100,000 unit/gram cream 0 10-05 00:00: 00 09-08 00:00 :00 No [facility] nystatin 100,000 unit/gram cream 2020-0 10-05 00:00: 00 09-08 00:00 :00 No [facility] chlorhexidi ne 0.12 % mouthwash 2020-0 10-02 00:00: 00 Yes [facility] chlorhexidi ne 0.12 % mouthwash 2020-0 10-02 00:00: 00 Yes [facility] chlorhexidi ne 0.12 % mouthwash 2020-0 10-02 00:00: 00 Yes [facility] chlorhexidi ne 0.12 % mouthwash 2020-0 10-02 00:00: 00 Yes [facility] chlorhexidi ne 0.12 % mouthwash 2020-0 10-02 00:00: 00 Yes [facility] chlorhexidi ne 0.12 % mouthwash 2020-0 10-02 00:00: 00 Yes [facility] chlorhexidi ne 0.12 % mouthwash 2020-0 10-02 00:00: 00 Yes [facility] chlorhexidi ne 0.12 % mouthwash 2020-0 10-02 00:00: 00 Yes [facility] chlorhexidi ne 0.12 % mouthwash 2020-0 10-02 00:00: 00 Yes [facility] chlorhexidi ne 0.12 % mouthwash 2020-0 10-02 00:00: 00 Yes [facility] chlorhexidi ne 0.12 % mouthwash 2020-0 10-02 00:00: 00 Yes [facility] chlorhexidi ne 0.12 % mouthwash 2020-0 10-02 00:00: 00 Yes [facility] chlorhexidi ne 0.12 % mouthwash 2020-0 10-02 00:00: 00 Yes [facility] chlorhexidi ne 0.12 % mouthwash 2020-0 10-02 00:00: 00 Yes [facility] chlorhexidi ne 0.12 % mouthwash 1-0 10-02 00:00: 00 Yes [facility] chlorhexidi ne 0.12 % mouthwash 1-0 10-02 00:00: 00 Yes [facility] chlorhexidi ne 0.12 % mouthwash 1-0 10-02 00:00: 00 Yes [facility] chlorhexidi ne 0.12 % mouthwash 1-0 10-02 00:00: 00 Yes [facility] chlorhexidi ne 0.12 % mouthwash 1-0 10-02 00:00: 00 Yes [facility] chlorhexidi ne 0.12 % mouthwash 2020-0 10-02 00:00: 00 Yes [facility] chlorhexidi ne 0.12 % mouthwash 2020-0 10-02 00:00: 00 Yes [facility] chlorhexidi ne 0.12 % mouthwash 2020-0 10-02 00:00: 00 Yes [facility] chlorhexidi ne 0.12 % mouthwash 2020-0 10-02 00:00: 00 Yes [facility] chlorhexidi ne 0.12 % mouthwash 2020-0 10-02 00:00: 00 Yes [facility] chlorhexidi ne 0.12 % mouthwash 2020-0 10-02 00:00: 00 Yes [facility] chlorhexidi ne 0.12 % mouthwash 2020-0 10-02 00:00: 00 Yes [facility] chlorhexidi ne 0.12 % mouthwash 1-0 10-02 00:00: 00 Yes [facility] chlorhexidi ne 0.12 % mouthwash 2020-0 10-02 00:00: 00 Yes [facility] chlorhexidi ne 0.12 % mouthwash 1-0 10-02 00:00: 00 Yes [facility] chlorhexidi ne 0.12 % mouthwash 1-0 10-02 00:00: 00 Yes [facility] chlorhexidi ne 0.12 % mouthwash 1-0 10-02 00:00: 00 Yes [facility] chlorhexidi ne 0.12 % mouthwash 1-0 10-02 00:00: 00 Yes [facility] chlorhexidi ne 0.12 % mouthwash 1-0 10-02 00:00: 00 Yes [facility] chlorhexidi ne 0.12 % mouthwash 2020-0 10-02 00:00: 00 Yes [facility] chlorhexidi ne 0.12 % mouthwash 1-0 10-02 00:00: 00 Yes [facility] chlorhexidi ne 0.12 % mouthwash 2020-0 10-02 00:00: 00 Yes [facility] chlorhexidi ne 0.12 % mouthwash 1-0 10-02 00:00: 00 Yes [facility] chlorhexidi ne 0.12 % mouthwash 2020-0 10-02 00:00: 00 Yes [facility] chlorhexidi ne 0.12 % mouthwash 2020-0 10-02 00:00: 00 Yes [facility] chlorhexidi ne 0.12 % mouthwash 2020-0 10-02 00:00: 00 Yes [facility] chlorhexidi ne 0.12 % mouthwash 2020-0 10-02 00:00: 00 Yes [facility] chlorhexidi ne 0.12 % mouthwash 1-0 10-02 00:00: 00 Yes [facility] chlorhexidi ne 0.12 % mouthwash 1-0 10-02 00:00: 00 Yes [facility] chlorhexidi ne 0.12 % mouthwash 2020-0 10-02 00:00: 00 Yes [facility] chlorhexidi ne 0.12 % mouthwash 1-0 10-02 00:00: 00 Yes [facility] chlorhexidi ne 0.12 % mouthwash 1-0 10-02 00:00: 00 Yes [facility] chlorhexidi ne 0.12 % mouthwash 1-0 10-02 00:00: 00 Yes [facility] chlorhexidi ne 0.12 % mouthwash 2020-0 10-02 00:00: 00 Yes [facility] chlorhexidi ne 0.12 % mouthwash 1-0 10-02 00:00: 00 Yes [facility] chlorhexidi ne 0.12 % mouthwash 2020-0 10-02 00:00: 00 Yes [facility] chlorhexidi ne 0.12 % mouthwash 1-0 10-02 00:00: 00 Yes [facility] chlorhexidi ne 0.12 % mouthwash 2020-0 10-02 00:00: 00 Yes [facility] chlorhexidi ne 0.12 % mouthwash 1-0 10-02 00:00: 00 Yes [facility] chlorhexidi ne 0.12 % mouthwash 2020-0 10-02 00:00: 00 Yes [facility] chlorhexidi ne 0.12 % mouthwash 2020-0 10-02 00:00: 00 Yes [facility] chlorhexidi ne 0.12 % mouthwash 2020-0 10-02 00:00: 00 Yes [facility] chlorhexidi ne 0.12 % mouthwash 2020-0 10-02 00:00: 00 Yes [facility] chlorhexidi ne 0.12 % mouthwash 2020-0 10-02 00:00: 00 Yes [facility] chlorhexidi ne 0.12 % mouthwash 1-0 10-02 00:00: 00 Yes [facility] chlorhexidi ne 0.12 % mouthwash 2020-0 10-02 00:00: 00 Yes [facility] chlorhexidi ne 0.12 % mouthwash 2020-0 10-02 00:00: 00 Yes [facility] chlorhexidi ne 0.12 % mouthwash 1-0 10-02 00:00: 00 Yes [facility] chlorhexidi ne 0.12 % mouthwash 1-0 10-02 00:00: 00 Yes [facility] chlorhexidi ne 0.12 % mouthwash 2020-0 10-02 00:00: 00 Yes [facility] chlorhexidi ne 0.12 % mouthwash 2020-0 10-02 00:00: 00 Yes [facility] chlorhexidi ne 0.12 % mouthwash 2020-0 10-02 00:00: 00 Yes [facility] chlorhexidi ne 0.12 % mouthwash 2020-0 10-02 00:00: 00 Yes [facility] chlorhexidi ne 0.12 % mouthwash 2020-0 10-02 00:00: 00 Yes [facility] chlorhexidi ne 0.12 % mouthwash 2020-0 10-02 00:00: 00 Yes [facility] chlorhexidi ne 0.12 % mouthwash 2020-0 10-02 00:00: 00 Yes [facility] chlorhexidi ne 0.12 % mouthwash 2020-0 10-02 00:00: 00 Yes [facility] chlorhexidi ne 0.12 % mouthwash 2020-0 10-02 00:00: 00 Yes [facility] chlorhexidi ne 0.12 % mouthwash 2020-0 10-02 00:00: 00 Yes [facility] chlorhexidi ne 0.12 % mouthwash 2020-0 10-02 00:00: 00 Yes [facility] chlorhexidi ne 0.12 % mouthwash 2020-0 10-02 00:00: 00 Yes [facility] chlorhexidi ne 0.12 % mouthwash 2020-0 10-02 00:00: 00 Yes [facility] chlorhexidi ne 0.12 % mouthwash 2020-0 10-02 00:00: 00 Yes [facility] chlorhexidi ne 0.12 % mouthwash 2020-0 10-02 00:00: 00 Yes [facility] chlorhexidi ne 0.12 % mouthwash 2020-0 10-02 00:00: 00 Yes [facility] chlorhexidi ne 0.12 % mouthwash 2020-0 10-02 00:00: 00 Yes [facility] chlorhexidi ne 0.12 % mouthwash 2020-0 10-02 00:00: 00 Yes [facility] [facility] chlorhexidi ne 0.12 % mouthwash 2020-0 10-02 00:00: 00 Yes [facility] chlorhexidi ne 0.12 % mouthwash 2020-0 10-02 00:00: 00 Yes [facility] chlorhexidi ne 0.12 % mouthwash 2020-0 10-02 00:00: 00 Yes [facility] chlorhexidi ne 0.12 % mouthwash 2020-0 10-02 00:00: 00 Yes [facility] chlorhexidi ne 0.12 % mouthwash 2020-0 10-02 00:00: 00 Yes [facility] chlorhexidi ne 0.12 % mouthwash 2020-0 10-02 00:00: 00 Yes [facility] chlorhexidi ne 0.12 % mouthwash 2020-0 10-02 00:00: 00 Yes [facility] chlorhexidi ne 0.12 % mouthwash 2020-0 10-02 00:00: 00 Yes [facility] chlorhexidi ne 0.12 % mouthwash 2020-0 10-02 00:00: 00 Yes [facility] chlorhexidi ne 0.12 % mouthwash 2020-0 10-02 00:00: 00 Yes [facility] chlorhexidi ne 0.12 % mouthwash 2020-0 10-02 00:00: 00 Yes [facility] chlorhexidi ne 0.12 % mouthwash 2020-0 10-02 00:00: 00 Yes [facility] chlorhexidi ne 0.12 % mouthwash 2020-0 10-02 00:00: 00 Yes [facility] chlorhexidi ne 0.12 % mouthwash 2020-0 10-02 00:00: 00 Yes [facility] Immunizations Ordered Immunization Name Filled Immunization Name Date Status Comments Source SARS-COV-2 COVID-19 PFIZER VACCINE 2021-05-10 00:00:00 Completed [facility] SARS-COV-2 COVID-19 PFIZER VACCINE 2021-05-10 00:00:00 Completed [facility] SARS-COV-2 COVID-19 PFIZER VACCINE 2021-05-10 00:00:00 Completed [facility] SARS-COV-2 COVID-19 PFIZER VACCINE 2021-05-10 00:00:00 Completed [facility] SARS-COV-2 COVID-19 PFIZER VACCINE 2021-05-10 00:00:00 Completed [facility] SARS-COV-2 COVID-19 PFIZER VACCINE 2021-05-10 00:00:00 Completed [facility] SARS-COV-2 COVID-19 PFIZER VACCINE 2021-05-10 00:00:00 Completed [facility] SARS-COV-2 COVID-19 PFIZER VACCINE 2021-05-10 00:00:00 Completed [facility] SARS-COV-2 COVID-19 PFIZER VACCINE 2021-05-10 00:00:00 Completed [facility] SARS-COV-2 COVID-19 PFIZER VACCINE 2021-05-10 00:00:00 Completed [facility] SARS-COV-2 COVID-19 PFIZER VACCINE 2021-05-10 00:00:00 Completed [facility] SARS-COV-2 COVID-19 PFIZER VACCINE 2021-05-10 00:00:00 Completed [facility] SARS-COV-2 COVID-19 PFIZER VACCINE 2021-05-10 00:00:00 Completed [facility] SARS-COV-2 COVID-19 PFIZER VACCINE 2021-05-10 00:00:00 Completed [facility] SARS-COV-2 COVID-19 PFIZER VACCINE 2021-05-10 00:00:00 Completed [facility] SARS-COV-2 COVID-19 PFIZER VACCINE 2021-05-10 00:00:00 Completed [facility] SARS-COV-2 COVID-19 PFIZER VACCINE 2021-05-10 00:00:00 Completed [facility] SARS-COV-2 COVID-19 PFIZER VACCINE 2021-05-10 00:00:00 Completed [facility] SARS-COV-2 COVID-19 PFIZER VACCINE 2021-05-10 00:00:00 Completed [facility] SARS-COV-2 COVID-19 PFIZER VACCINE 2021-05-10 00:00:00 Completed [facility] SARS-COV-2 COVID-19 PFIZER VACCINE 2021-05-10 00:00:00 Completed [facility] SARS-COV-2 COVID-19 PFIZER VACCINE 2021-05-10 00:00:00 Completed [facility] SARS-COV-2 COVID-19 PFIZER VACCINE 2021-05-10 00:00:00 Completed [facility] SARS-COV-2 COVID-19 PFIZER VACCINE 2021-05-10 00:00:00 Completed [facility] SARS-COV-2 COVID-19 PFIZER VACCINE 2021-05-10 00:00:00 Completed [facility] SARS-COV-2 COVID-19 PFIZER VACCINE 2021-05-10 00:00:00 Completed [facility] SARS-COV-2 COVID-19 PFIZER VACCINE 2021-05-10 00:00:00 Completed [facility] SARS-COV-2 COVID-19 PFIZER VACCINE 2021-05-10 00:00:00 Completed [facility] SARS-COV-2 COVID-19 PFIZER VACCINE 2021-05-10 00:00:00 Completed [facility] SARS-COV-2 COVID-19 PFIZER VACCINE 2021-05-10 00:00:00 Completed [facility] SARS-COV-2 COVID-19 PFIZER VACCINE 2021-05-10 00:00:00 Completed [facility] SARS-COV-2 COVID-19 PFIZER VACCINE 2021-05-10 00:00:00 Completed [facility] SARS-COV-2 COVID-19 PFIZER VACCINE 2021-05-10 00:00:00 Completed [facility] SARS-COV-2 COVID-19 PFIZER VACCINE 2021-05-10 00:00:00 Completed [facility] SARS-COV-2 COVID-19 PFIZER VACCINE 2021-05-10 00:00:00 Completed [facility] SARS-COV-2 COVID-19 PFIZER VACCINE 2021-05-10 00:00:00 Completed [facility] SARS-COV-2 COVID-19 PFIZER VACCINE 2021-05-10 00:00:00 Completed [facility] SARS-COV-2 COVID-19 PFIZER VACCINE 2021-05-10 00:00:00 Completed [facility] SARS-COV-2 COVID-19 PFIZER VACCINE 2021-05-10 00:00:00 Completed [facility] SARS-COV-2 COVID-19 PFIZER VACCINE 2021-05-10 00:00:00 Completed [facility] SARS-COV-2 COVID-19 PFIZER VACCINE 2021-05-10 00:00:00 Completed [facility] SARS-COV-2 COVID-19 PFIZER VACCINE 2021-05-10 00:00:00 Completed [facility] SARS-COV-2 COVID-19 PFIZER VACCINE 2021-05-10 00:00:00 Completed [facility] SARS-COV-2 COVID-19 PFIZER VACCINE 2021-05-10 00:00:00 Completed [facility] SARS-COV-2 COVID-19 PFIZER VACCINE 2021-05-10 00:00:00 Completed [facility] SARS-COV-2 COVID-19 PFIZER VACCINE 2021-05-10 00:00:00 Completed [facility] SARS-COV-2 COVID-19 PFIZER VACCINE 2021-05-10 00:00:00 Completed [facility] SARS-COV-2 COVID-19 PFIZER VACCINE 2021-05-10 00:00:00 Completed [facility] SARS-COV-2 COVID-19 PFIZER VACCINE 2021-05-10 00:00:00 Completed [facility] SARS-COV-2 COVID-19 PFIZER VACCINE 2021-05-10 00:00:00 Completed [facility] SARS-COV-2 COVID-19 PFIZER VACCINE 2021-05-10 00:00:00 Completed [facility] SARS-COV-2 COVID-19 PFIZER VACCINE 2021-05-10 00:00:00 Completed [facility] SARS-COV-2 COVID-19 PFIZER VACCINE 2021-05-10 00:00:00 Completed [facility] SARS-COV-2 COVID-19 PFIZER VACCINE 2021-05-10 00:00:00 Completed [facility] SARS-COV-2 COVID-19 PFIZER VACCINE 2021-05-10 00:00:00 Completed [facility] SARS-COV-2 COVID-19 PFIZER VACCINE 2021-05-10 00:00:00 Completed [facility] SARS-COV-2 COVID-19 PFIZER VACCINE 2021-05-10 00:00:00 Completed [facility] SARS-COV-2 COVID-19 PFIZER VACCINE 2021-05-10 00:00:00 Completed [facility] SARS-COV-2 COVID-19 PFIZER VACCINE 2021-05-10 00:00:00 Completed [facility] SARS-COV-2 COVID-19 PFIZER VACCINE 2021-05-10 00:00:00 Completed [facility] SARS-COV-2 COVID-19 PFIZER VACCINE 2021-05-10 00:00:00 Completed [facility] Influenza Virus Vaccine Quad IM, Preserv and ABX Free 6 MO-64 YRS 2021-04-22 00:00:00 Completed [facility] TDAP 2021-04-22 00:00:00 Completed [facility] Influenza Virus Vaccine Quad IM, Preserv and ABX Free 6 MO-64 YRS 2021-04-22 00:00:00 Completed [facility] TDAP 2021-04-22 00:00:00 Completed [facility] Influenza Virus Vaccine Quad IM, Preserv and ABX Free 6 MO-64 YRS 2021-04-22 00:00:00 Completed [facility] TDAP 2021-04-22 00:00:00 Completed [facility] Influenza Virus Vaccine Quad IM, Preserv and ABX Free 6 MO-64 YRS 2021-04-22 00:00:00 Completed [facility] TDAP 2021-04-22 00:00:00 Completed [facility] Influenza Virus Vaccine Quad IM, Preserv and ABX Free 6 MO-64 YRS 2021-04-22 00:00:00 Completed [facility] TDAP 2021-04-22 00:00:00 Completed [facility] Influenza Virus Vaccine Quad IM, Preserv and ABX Free 6 MO-64 YRS 2021-04-22 00:00:00 Completed [facility] TDAP 2021-04-22 00:00:00 Completed [facility] Influenza Virus Vaccine Quad IM, Preserv and ABX Free 6 MO-64 YRS 2021-04-22 00:00:00 Completed [facility] TDAP 2021-04-22 00:00:00 Completed [facility] Influenza Virus Vaccine Quad IM, Preserv and ABX Free 6 MO-64 YRS 2021-04-22 00:00:00 Completed [facility] TDAP 2021-04-22 00:00:00 Completed [facility] Influenza Virus Vaccine Quad IM, Preserv and ABX Free 6 MO-64 YRS 2021-04-22 00:00:00 Completed [facility] TDAP 2021-04-22 00:00:00 Completed [facility] Influenza Virus Vaccine Quad IM, Preserv and ABX Free 6 MO-64 YRS 2021-04-22 00:00:00 Completed [facility] TDAP 2021-04-22 00:00:00 Completed [facility] Influenza Virus Vaccine Quad IM, Preserv and ABX Free 6 MO-64 YRS 2021-04-22 00:00:00 Completed [facility] TDAP 2021-04-22 00:00:00 Completed [facility] Influenza Virus Vaccine Quad IM, Preserv and ABX Free 6 MO-64 YRS 2021-04-22 00:00:00 Completed [facility] TDAP 2021-04-22 00:00:00 Completed [facility] Influenza Virus Vaccine Quad IM, Preserv and ABX Free 6 MO-64 YRS 2021-04-22 00:00:00 Completed [facility] TDAP 2021-04-22 00:00:00 Completed [facility] Influenza Virus Vaccine Quad IM, Preserv and ABX Free 6 MO-64 YRS 2021-04-22 00:00:00 Completed [facility] TDAP 2021-04-22 00:00:00 Completed [facility] Influenza Virus Vaccine Quad IM, Preserv and ABX Free 6 MO-64 YRS 2021-04-22 00:00:00 Completed [facility] TDAP 2021-04-22 00:00:00 Completed [facility] Influenza Virus Vaccine Quad IM, Preserv and ABX Free 6 MO-64 YRS 2021-04-22 00:00:00 Completed [facility] TDAP 2021-04-22 00:00:00 Completed [facility] Influenza Virus Vaccine Quad IM, Preserv and ABX Free 6 MO-64 YRS 2021-04-22 00:00:00 Completed [facility] TDAP 2021-04-22 00:00:00 Completed [facility] Influenza Virus Vaccine Quad IM, Preserv and ABX Free 6 MO-64 YRS 2021-04-22 00:00:00 Completed [facility] TDAP 2021-04-22 00:00:00 Completed [facility] Influenza Virus Vaccine Quad IM, Preserv and ABX Free 6 MO-64 YRS 2021-04-22 00:00:00 Completed [facility] TDAP 2021-04-22 00:00:00 Completed [facility] Influenza Virus Vaccine Quad IM, Preserv and ABX Free 6 MO-64 YRS 2021-04-22 00:00:00 Completed [facility] TDAP 2021-04-22 00:00:00 Completed [facility] Influenza Virus Vaccine Quad IM, Preserv and ABX Free 6 MO-64 YRS 2021-04-22 00:00:00 Completed [facility] TDAP 2021-04-22 00:00:00 Completed [facility] Influenza Virus Vaccine Quad IM, Preserv and ABX Free 6 MO-64 YRS 2021-04-22 00:00:00 Completed [facility] TDAP 2021-04-22 00:00:00 Completed [facility] Influenza Virus Vaccine Quad IM, Preserv and ABX Free 6 MO-64 YRS 2021-04-22 00:00:00 Completed [facility] TDAP 2021-04-22 00:00:00 Completed [facility] Influenza Virus Vaccine Quad IM, Preserv and ABX Free 6 MO-64 YRS 2021-04-22 00:00:00 Completed [facility] TDAP 2021-04-22 00:00:00 Completed [facility] Influenza Virus Vaccine Quad IM, Preserv and ABX Free 6 MO-64 YRS 2021-04-22 00:00:00 Completed [facility] TDAP 2021-04-22 00:00:00 Completed [facility] Influenza Virus Vaccine Quad IM, Preserv and ABX Free 6 MO-64 YRS 2021-04-22 00:00:00 Completed [facility] TDAP 2021-04-22 00:00:00 Completed [facility] Influenza Virus Vaccine Quad IM, Preserv and ABX Free 6 MO-64 YRS 2021-04-22 00:00:00 Completed [facility] TDAP 2021-04-22 00:00:00 Completed [facility] Influenza Virus Vaccine Quad IM, Preserv and ABX Free 6 MO-64 YRS 2021-04-22 00:00:00 Completed [facility] TDAP 2021-04-22 00:00:00 Completed [facility] Influenza Virus Vaccine Quad IM, Preserv and ABX Free 6 MO-64 YRS 2021-04-22 00:00:00 Completed [facility] TDAP 2021-04-22 00:00:00 Completed [facility] Influenza Virus Vaccine Quad IM, Preserv and ABX Free 6 MO-64 YRS 2021-04-22 00:00:00 Completed [facility] TDAP 2021-04-22 00:00:00 Completed [facility] Influenza Virus Vaccine Quad IM, Preserv and ABX Free 6 MO-64 YRS 2021-04-22 00:00:00 Completed [facility] TDAP 2021-04-22 00:00:00 Completed [facility] Influenza Virus Vaccine Quad IM, Preserv and ABX Free 6 MO-64 YRS 2021-04-22 00:00:00 Completed [facility] TDAP 2021-04-22 00:00:00 Completed [facility] Influenza Virus Vaccine Quad IM, Preserv and ABX Free 6 MO-64 YRS 2021-04-22 00:00:00 Completed [facility] TDAP 2021-04-22 00:00:00 Completed [facility] Influenza Virus Vaccine Quad IM, Preserv and ABX Free 6 MO-64 YRS 2021-04-22 00:00:00 Completed [facility] TDAP 2021-04-22 00:00:00 Completed [facility] Influenza Virus Vaccine Quad IM, Preserv and ABX Free 6 MO-64 YRS 2021-04-22 00:00:00 Completed [facility] TDAP 2021-04-22 00:00:00 Completed [facility] Influenza Virus Vaccine Quad IM, Preserv and ABX Free 6 MO-64 YRS 2021-04-22 00:00:00 Completed [facility] TDAP 2021-04-22 00:00:00 Completed [facility] Influenza Virus Vaccine Quad IM, Preserv and ABX Free 6 MO-64 YRS 2021-04-22 00:00:00 Completed [facility] TDAP 2021-04-22 00:00:00 Completed [facility] Influenza Virus Vaccine Quad IM, Preserv and ABX Free 6 MO-64 YRS 2021-04-22 00:00:00 Completed [facility] TDAP 2021-04-22 00:00:00 Completed [facility] Influenza Virus Vaccine Quad IM, Preserv and ABX Free 6 MO-64 YRS 2021-04-22 00:00:00 Completed [facility] TDAP 2021-04-22 00:00:00 Completed [facility] Influenza Virus Vaccine Quad IM, Preserv and ABX Free 6 MO-64 YRS 2021-04-22 00:00:00 Completed [facility] TDAP 2021-04-22 00:00:00 Completed [facility] Influenza Virus Vaccine Quad IM, Preserv and ABX Free 6 MO-64 YRS 2021-04-22 00:00:00 Completed [facility] TDAP 2021-04-22 00:00:00 Completed [facility] Influenza Virus Vaccine Quad IM, Preserv and ABX Free 6 MO-64 YRS 2021-04-22 00:00:00 Completed [facility] TDAP 2021-04-22 00:00:00 Completed [facility] Influenza Virus Vaccine Quad IM, Preserv and ABX Free 6 MO-64 YRS 2021-04-22 00:00:00 Completed [facility] TDAP 2021-04-22 00:00:00 Completed [facility] Influenza Virus Vaccine Quad IM, Preserv and ABX Free 6 MO-64 YRS 2021-04-22 00:00:00 Completed [facility] TDAP 2021-04-22 00:00:00 Completed [facility] Influenza Virus Vaccine Quad IM, Preserv and ABX Free 6 MO-64 YRS 2021-04-22 00:00:00 Completed [facility] TDAP 2021-04-22 00:00:00 Completed [facility] Influenza Virus Vaccine Quad IM, Preserv and ABX Free 6 MO-64 YRS 2021-04-22 00:00:00 Completed [facility] TDAP 2021-04-22 00:00:00 Completed [facility] Influenza Virus Vaccine Quad IM, Preserv and ABX Free 6 MO-64 YRS 2021-04-22 00:00:00 Completed [facility] TDAP 2021-04-22 00:00:00 Completed [facility] Influenza Virus Vaccine Quad IM, Preserv and ABX Free 6 MO-64 YRS 2021-04-22 00:00:00 Completed [facility] TDAP 2021-04-22 00:00:00 Completed [facility] Influenza Virus Vaccine Quad IM, Preserv and ABX Free 6 MO-64 YRS 2021-04-22 00:00:00 Completed [facility] TDAP 2021-04-22 00:00:00 Completed [facility] Influenza Virus Vaccine Quad IM, Preserv and ABX Free 6 MO-64 YRS 2021-04-22 00:00:00 Completed [facility] TDAP 2021-04-22 00:00:00 Completed [facility] Influenza Virus Vaccine Quad IM, Preserv and ABX Free 6 MO-64 YRS 2021-04-22 00:00:00 Completed [facility] TDAP 2021-04-22 00:00:00 Completed [facility] Influenza Virus Vaccine Quad IM, Preserv and ABX Free 6 MO-64 YRS 2021-04-22 00:00:00 Completed [facility] TDAP 2021-04-22 00:00:00 Completed [facility] Influenza Virus Vaccine Quad IM, Preserv and ABX Free 6 MO-64 YRS 2021-04-22 00:00:00 Completed [facility] TDAP 2021-04-22 00:00:00 Completed [facility] Influenza Virus Vaccine Quad IM, Preserv and ABX Free 6 MO-64 YRS 2021-04-22 00:00:00 Completed [facility] TDAP 2021-04-22 00:00:00 Completed [facility] Influenza Virus Vaccine Quad IM, Preserv and ABX Free 6 MO-64 YRS 2021-04-22 00:00:00 Completed [facility] TDAP 2021-04-22 00:00:00 Completed [facility] Influenza Virus Vaccine Quad IM, Preserv and ABX Free 6 MO-64 YRS 2021-04-22 00:00:00 Completed [facility] TDAP 2021-04-22 00:00:00 Completed [facility] Influenza Virus Vaccine Quad IM, Preserv and ABX Free 6 MO-64 YRS 2021-04-22 00:00:00 Completed [facility] TDAP 2021-04-22 00:00:00 Completed [facility] Influenza Virus Vaccine Quad IM, Preserv and ABX Free 6 MO-64 YRS 2021-04-22 00:00:00 Completed [facility] TDAP 2021-04-22 00:00:00 Completed [facility] Influenza Virus Vaccine Quad IM, Preserv and ABX Free 6 MO-64 YRS (FLUCELVAX) 2021-04-22 00:00:00 Completed [facility] TDAP 2021-04-22 00:00:00 Completed [facility] Influenza Virus Vaccine Quad IM, Preserv and ABX Free 6 MO-64 YRS (FLUCELVAX) 2021-04-22 00:00:00 Completed [facility] TDAP 2021-04-22 00:00:00 Completed [facility] Influenza Virus Vaccine Quad IM, Preserv and ABX Free 6 MO-64 YRS (FLUCELVAX) 2021-04-22 00:00:00 Completed [facility] TDAP 2021-04-22 00:00:00 Completed [facility] Meningococcal Polysaccharide (groups A, C, Y and W-135) conjugate vaccine (MCV4P) 2021-02-12 00:00:00 Completed [facility] Meningococcal Polysaccharide (groups A, C, Y and W-135) conjugate vaccine (MCV4P) 2021-02-12 00:00:00 Completed [facility] Meningococcal Polysaccharide (groups A, C, Y and W-135) conjugate vaccine (MCV4P) 2021-02-12 00:00:00 Completed [facility] Meningococcal Polysaccharide (groups A, C, Y and W-135) conjugate vaccine (MCV4P) 2021-02-12 00:00:00 Completed [facility] Meningococcal Polysaccharide (groups A, C, Y and W-135) conjugate vaccine (MCV4P) 2021-02-12 00:00:00 Completed [facility] Meningococcal Polysaccharide (groups A, C, Y and W-135) conjugate vaccine (MCV4P) 2021-02-12 00:00:00 Completed [facility] Meningococcal Polysaccharide (groups A, C, Y and W-135) conjugate vaccine (MCV4P) 2021-02-12 00:00:00 Completed [facility] Meningococcal Polysaccharide (groups A, C, Y and W-135) conjugate vaccine (MCV4P) 2021-02-12 00:00:00 Completed [facility] Meningococcal Polysaccharide (groups A, C, Y and W-135) conjugate vaccine (MCV4P) 2021-02-12 00:00:00 Completed [facility] Meningococcal Polysaccharide (groups A, C, Y and W-135) conjugate vaccine (MCV4P) 2021-02-12 00:00:00 Completed [facility] Meningococcal Polysaccharide (groups A, C, Y and W-135) conjugate vaccine (MCV4P) 2021-02-12 00:00:00 Completed [facility] Meningococcal Polysaccharide (groups A, C, Y and W-135) conjugate vaccine (MCV4P) 2021-02-12 00:00:00 Completed [facility] Meningococcal Polysaccharide (groups A, C, Y and W-135) conjugate vaccine (MCV4P) 2021-02-12 00:00:00 Completed [facility] Meningococcal Polysaccharide (groups A, C, Y and W-135) conjugate vaccine (MCV4P) 2021-02-12 00:00:00 Completed [facility] Meningococcal Polysaccharide (groups A, C, Y and W-135) conjugate vaccine (MCV4P) 2021-02-12 00:00:00 Completed [facility] Meningococcal Polysaccharide (groups A, C, Y and W-135) conjugate vaccine (MCV4P) 2021-02-12 00:00:00 Completed [facility] Meningococcal Polysaccharide (groups A, C, Y and W-135) conjugate vaccine (MCV4P) 2021-02-12 00:00:00 Completed [facility] Meningococcal Polysaccharide (groups A, C, Y and W-135) conjugate vaccine (MCV4P) 2021-02-12 00:00:00 Completed [facility] Meningococcal Polysaccharide (groups A, C, Y and W-135) conjugate vaccine (MCV4P) 2021-02-12 00:00:00 Completed [facility] Meningococcal Polysaccharide (groups A, C, Y and W-135) conjugate vaccine (MCV4P) 2021-02-12 00:00:00 Completed [facility] Meningococcal Polysaccharide (groups A, C, Y and W-135) conjugate vaccine (MCV4P) 2021-02-12 00:00:00 Completed [facility] Meningococcal Polysaccharide (groups A, C, Y and W-135) conjugate vaccine (MCV4P) 2021-02-12 00:00:00 Completed [facility] Meningococcal Polysaccharide (groups A, C, Y and W-135) conjugate vaccine (MCV4P) 2021-02-12 00:00:00 Completed [facility] Meningococcal Polysaccharide (groups A, C, Y and W-135) conjugate vaccine (MCV4P) 2021-02-12 00:00:00 Completed [facility] Meningococcal Polysaccharide (groups A, C, Y and W-135) conjugate vaccine (MCV4P) 2021-02-12 00:00:00 Completed [facility] Meningococcal Polysaccharide (groups A, C, Y and W-135) conjugate vaccine (MCV4P) 2021-02-12 00:00:00 Completed [facility] Meningococcal Polysaccharide (groups A, C, Y and W-135) conjugate vaccine (MCV4P) 2021-02-12 00:00:00 Completed [facility] Meningococcal Polysaccharide (groups A, C, Y and W-135) conjugate vaccine (MCV4P) 2021-02-12 00:00:00 Completed [facility] Meningococcal Polysaccharide (groups A, C, Y and W-135) conjugate vaccine (MCV4P) 2021-02-12 00:00:00 Completed [facility] Meningococcal Polysaccharide (groups A, C, Y and W-135) conjugate vaccine (MCV4P) 2021-02-12 00:00:00 Completed [facility] Meningococcal Polysaccharide (groups A, C, Y and W-135) conjugate vaccine (MCV4P) 2021-02-12 00:00:00 Completed [facility] Meningococcal Polysaccharide (groups A, C, Y and W-135) conjugate vaccine (MCV4P) 2021-02-12 00:00:00 Completed [facility] Meningococcal Polysaccharide (groups A, C, Y and W-135) conjugate vaccine (MCV4P) 2021-02-12 00:00:00 Completed [facility] Meningococcal Polysaccharide (groups A, C, Y and W-135) conjugate vaccine (MCV4P) 2021-02-12 00:00:00 Completed [facility] Meningococcal Polysaccharide (groups A, C, Y and W-135) conjugate vaccine (MCV4P) 2021-02-12 00:00:00 Completed [facility] Meningococcal Polysaccharide (groups A, C, Y and W-135) conjugate vaccine (MCV4P) 2021-02-12 00:00:00 Completed [facility] Meningococcal Polysaccharide (groups A, C, Y and W-135) conjugate vaccine (MCV4P) 2021-02-12 00:00:00 Completed [facility] Meningococcal Polysaccharide (groups A, C, Y and W-135) conjugate vaccine (MCV4P) 2021-02-12 00:00:00 Completed [facility] Meningococcal Polysaccharide (groups A, C, Y and W-135) conjugate vaccine (MCV4P) 2021-02-12 00:00:00 Completed [facility] SARS-COV-2 COVID-19 PFIZER VACCINE 2020-09-19 00:00:00 Completed [facility] SARS-COV-2 COVID-19 PFIZER VACCINE 2020-09-19 00:00:00 Completed [facility] SARS-COV-2 COVID-19 PFIZER VACCINE 2020-09-19 00:00:00 Completed [facility] SARS-COV-2 COVID-19 PFIZER VACCINE 2020-09-19 00:00:00 Completed [facility] SARS-COV-2 COVID-19 PFIZER VACCINE 2020-09-19 00:00:00 Completed [facility] SARS-COV-2 COVID-19 PFIZER VACCINE 2020-09-19 00:00:00 Completed [facility] SARS-COV-2 COVID-19 PFIZER VACCINE 2020-09-19 00:00:00 Completed [facility] SARS-COV-2 COVID-19 PFIZER VACCINE 2020-09-19 00:00:00 Completed [facility] SARS-COV-2 COVID-19 PFIZER VACCINE 2020-09-19 00:00:00 Completed [facility] SARS-COV-2 COVID-19 PFIZER VACCINE 2020-09-19 00:00:00 Completed [facility] SARS-COV-2 COVID-19 PFIZER VACCINE 2020-09-19 00:00:00 Completed [facility] SARS-COV-2 COVID-19 PFIZER VACCINE 2020-09-19 00:00:00 Completed [facility] SARS-COV-2 COVID-19 PFIZER VACCINE 2020-09-19 00:00:00 Completed [facility] SARS-COV-2 COVID-19 PFIZER VACCINE 2020-09-19 00:00:00 Completed [facility] SARS-COV-2 COVID-19 PFIZER VACCINE 2020-09-19 00:00:00 Completed [facility] SARS-COV-2 COVID-19 PFIZER VACCINE 2020-09-19 00:00:00 Completed [facility] SARS-COV-2 COVID-19 PFIZER VACCINE 2020-09-19 00:00:00 Completed [facility] SARS-COV-2 COVID-19 PFIZER VACCINE 2020-09-19 00:00:00 Completed [facility] SARS-COV-2 COVID-19 PFIZER VACCINE 2020-09-19 00:00:00 Completed [facility] SARS-COV-2 COVID-19 PFIZER VACCINE 2020-09-19 00:00:00 Completed [facility] SARS-COV-2 COVID-19 PFIZER VACCINE 2020-09-19 00:00:00 Completed [facility] SARS-COV-2 COVID-19 PFIZER VACCINE 2020-09-19 00:00:00 Completed [facility] SARS-COV-2 COVID-19 PFIZER VACCINE 2020-09-19 00:00:00 Completed [facility] SARS-COV-2 COVID-19 PFIZER VACCINE 2020-09-19 00:00:00 Completed [facility] SARS-COV-2 COVID-19 PFIZER VACCINE 2020-09-19 00:00:00 Completed [facility] SARS-COV-2 COVID-19 PFIZER VACCINE 2020-09-19 00:00:00 Completed [facility] SARS-COV-2 COVID-19 PFIZER VACCINE 2020-09-19 00:00:00 Completed [facility] SARS-COV-2 COVID-19 PFIZER VACCINE 2020-09-19 00:00:00 Completed [facility] SARS-COV-2 COVID-19 PFIZER VACCINE 2020-09-19 00:00:00 Completed [facility] SARS-COV-2 COVID-19 PFIZER VACCINE 2020-09-19 00:00:00 Completed [facility] SARS-COV-2 COVID-19 PFIZER VACCINE 2020-09-19 00:00:00 Completed [facility] SARS-COV-2 COVID-19 PFIZER VACCINE 2020-09-19 00:00:00 Completed [facility] SARS-COV-2 COVID-19 PFIZER VACCINE 2020-09-19 00:00:00 Completed [facility] SARS-COV-2 COVID-19 PFIZER VACCINE 2020-09-19 00:00:00 Completed [facility] SARS-COV-2 COVID-19 PFIZER VACCINE 2020-09-19 00:00:00 Completed [facility] SARS-COV-2 COVID-19 PFIZER VACCINE 2020-09-19 00:00:00 Completed [facility] SARS-COV-2 COVID-19 PFIZER VACCINE 2020-09-19 00:00:00 Completed [facility] SARS-COV-2 COVID-19 PFIZER VACCINE 2020-09-19 00:00:00 Completed [facility] SARS-COV-2 COVID-19 PFIZER VACCINE 2020-09-19 00:00:00 Completed [facility] SARS-COV-2 COVID-19 PFIZER VACCINE 2020-09-19 00:00:00 Completed [facility] SARS-COV-2 COVID-19 PFIZER VACCINE 2020-09-19 00:00:00 Completed [facility] SARS-COV-2 COVID-19 PFIZER VACCINE 2020-09-19 00:00:00 Completed [facility] SARS-COV-2 COVID-19 PFIZER VACCINE 2020-09-19 00:00:00 Completed [facility] SARS-COV-2 COVID-19 PFIZER VACCINE 2020-09-19 00:00:00 Completed [facility] SARS-COV-2 COVID-19 PFIZER VACCINE 2020-09-19 00:00:00 Completed [facility] SARS-COV-2 COVID-19 PFIZER VACCINE 2020-09-19 00:00:00 Completed [facility] SARS-COV-2 COVID-19 PFIZER VACCINE 2020-09-19 00:00:00 Completed [facility] SARS-COV-2 COVID-19 PFIZER VACCINE 2020-09-19 00:00:00 Completed [facility] SARS-COV-2 COVID-19 PFIZER VACCINE 2020-09-19 00:00:00 Completed [facility] SARS-COV-2 COVID-19 PFIZER VACCINE 2020-09-19 00:00:00 Completed [facility] SARS-COV-2 COVID-19 PFIZER VACCINE 2020-09-19 00:00:00 Completed [facility] SARS-COV-2 COVID-19 PFIZER VACCINE 2020-09-19 00:00:00 Completed [facility] SARS-COV-2 COVID-19 PFIZER VACCINE 2020-09-19 00:00:00 Completed [facility] SARS-COV-2 COVID-19 PFIZER VACCINE 2020-09-19 00:00:00 Completed [facility] SARS-COV-2 COVID-19 PFIZER VACCINE 2020-09-19 00:00:00 Completed [facility] SARS-COV-2 COVID-19 PFIZER VACCINE 2020-09-19 00:00:00 Completed [facility] SARS-COV-2 COVID-19 PFIZER VACCINE 2020-09-19 00:00:00 Completed [facility] SARS-COV-2 COVID-19 PFIZER VACCINE 2020-09-19 00:00:00 Completed [facility] SARS-COV-2 COVID-19 PFIZER VACCINE 2020-09-19 00:00:00 Completed [facility] SARS-COV-2 COVID-19 PFIZER VACCINE 2020-09-19 00:00:00 Completed [facility] SARS-COV-2 COVID-19 PFIZER VACCINE 2020-09-19 00:00:00 Completed [facility] SARS-COV-2 COVID-19 PFIZER VACCINE 2020-08-29 00:00:00 Completed [facility] SARS-COV-2 COVID-19 PFIZER VACCINE 2020-08-29 00:00:00 Completed [facility] SARS-COV-2 COVID-19 PFIZER VACCINE 2020-08-29 00:00:00 Completed [facility] SARS-COV-2 COVID-19 PFIZER VACCINE 2020-08-29 00:00:00 Completed [facility] SARS-COV-2 COVID-19 PFIZER VACCINE 2020-08-29 00:00:00 Completed [facility] SARS-COV-2 COVID-19 PFIZER VACCINE 2020-08-29 00:00:00 Completed [facility] SARS-COV-2 COVID-19 PFIZER VACCINE 2020-08-29 00:00:00 Completed [facility] SARS-COV-2 COVID-19 PFIZER VACCINE 2020-08-29 00:00:00 Completed [facility] SARS-COV-2 COVID-19 PFIZER VACCINE 2020-08-29 00:00:00 Completed [facility] SARS-COV-2 COVID-19 PFIZER VACCINE 2020-08-29 00:00:00 Completed [facility] SARS-COV-2 COVID-19 PFIZER VACCINE 2020-08-29 00:00:00 Completed [facility] SARS-COV-2 COVID-19 PFIZER VACCINE 2020-08-29 00:00:00 Completed [facility] SARS-COV-2 COVID-19 PFIZER VACCINE 2020-08-29 00:00:00 Completed [facility] SARS-COV-2 COVID-19 PFIZER VACCINE 2020-08-29 00:00:00 Completed [facility] SARS-COV-2 COVID-19 PFIZER VACCINE 2020-08-29 00:00:00 Completed [facility] SARS-COV-2 COVID-19 PFIZER VACCINE 2020-08-29 00:00:00 Completed [facility] SARS-COV-2 COVID-19 PFIZER VACCINE 2020-08-29 00:00:00 Completed [facility] SARS-COV-2 COVID-19 PFIZER VACCINE 2020-08-29 00:00:00 Completed [facility] SARS-COV-2 COVID-19 PFIZER VACCINE 2020-08-29 00:00:00 Completed [facility] SARS-COV-2 COVID-19 PFIZER VACCINE 2020-08-29 00:00:00 Completed [facility] SARS-COV-2 COVID-19 PFIZER VACCINE 2020-08-29 00:00:00 Completed [facility] SARS-COV-2 COVID-19 PFIZER VACCINE 2020-08-29 00:00:00 Completed [facility] SARS-COV-2 COVID-19 PFIZER VACCINE 2020-08-29 00:00:00 Completed [facility] SARS-COV-2 COVID-19 PFIZER VACCINE 2020-08-29 00:00:00 Completed [facility] SARS-COV-2 COVID-19 PFIZER VACCINE 2020-08-29 00:00:00 Completed [facility] SARS-COV-2 COVID-19 PFIZER VACCINE 2020-08-29 00:00:00 Completed [facility] SARS-COV-2 COVID-19 PFIZER VACCINE 2020-08-29 00:00:00 Completed [facility] SARS-COV-2 COVID-19 PFIZER VACCINE 2020-08-29 00:00:00 Completed [facility] SARS-COV-2 COVID-19 PFIZER VACCINE 2020-08-29 00:00:00 Completed [facility] SARS-COV-2 COVID-19 PFIZER VACCINE 2020-08-29 00:00:00 Completed [facility] SARS-COV-2 COVID-19 PFIZER VACCINE 2020-08-29 00:00:00 Completed [facility] SARS-COV-2 COVID-19 PFIZER VACCINE 2020-08-29 00:00:00 Completed [facility] SARS-COV-2 COVID-19 PFIZER VACCINE 2020-08-29 00:00:00 Completed [facility] SARS-COV-2 COVID-19 PFIZER VACCINE 2020-08-29 00:00:00 Completed [facility] SARS-COV-2 COVID-19 PFIZER VACCINE 2020-08-29 00:00:00 Completed [facility] SARS-COV-2 COVID-19 PFIZER VACCINE 2020-08-29 00:00:00 Completed [facility] SARS-COV-2 COVID-19 PFIZER VACCINE 2020-08-29 00:00:00 Completed [facility] SARS-COV-2 COVID-19 PFIZER VACCINE 2020-08-29 00:00:00 Completed [facility] SARS-COV-2 COVID-19 PFIZER VACCINE 2020-08-29 00:00:00 Completed [facility] SARS-COV-2 COVID-19 PFIZER VACCINE 2020-08-29 00:00:00 Completed [facility] SARS-COV-2 COVID-19 PFIZER VACCINE 2020-08-29 00:00:00 Completed [facility] SARS-COV-2 COVID-19 PFIZER VACCINE 2020-08-29 00:00:00 Completed [facility] SARS-COV-2 COVID-19 PFIZER VACCINE 2020-08-29 00:00:00 Completed [facility] SARS-COV-2 COVID-19 PFIZER VACCINE 2020-08-29 00:00:00 Completed [facility] SARS-COV-2 COVID-19 PFIZER VACCINE 2020-08-29 00:00:00 Completed [facility] SARS-COV-2 COVID-19 PFIZER VACCINE 2020-08-29 00:00:00 Completed [facility] SARS-COV-2 COVID-19 PFIZER VACCINE 2020-08-29 00:00:00 Completed [facility] SARS-COV-2 COVID-19 PFIZER VACCINE 2020-08-29 00:00:00 Completed [facility] SARS-COV-2 COVID-19 PFIZER VACCINE 2020-08-29 00:00:00 Completed [facility] SARS-COV-2 COVID-19 PFIZER VACCINE 2020-08-29 00:00:00 Completed [facility] SARS-COV-2 COVID-19 PFIZER VACCINE 2020-08-29 00:00:00 Completed [facility] SARS-COV-2 COVID-19 PFIZER VACCINE 2020-08-29 00:00:00 Completed [facility] SARS-COV-2 COVID-19 PFIZER VACCINE 2020-08-29 00:00:00 Completed [facility] SARS-COV-2 COVID-19 PFIZER VACCINE 2020-08-29 00:00:00 Completed [facility] SARS-COV-2 COVID-19 PFIZER VACCINE 2020-08-29 00:00:00 Completed [facility] SARS-COV-2 COVID-19 PFIZER VACCINE 2020-08-29 00:00:00 Completed [facility] SARS-COV-2 COVID-19 PFIZER VACCINE 2020-08-29 00:00:00 Completed [facility] SARS-COV-2 COVID-19 PFIZER VACCINE 2020-08-29 00:00:00 Completed [facility] SARS-COV-2 COVID-19 PFIZER VACCINE 2020-08-29 00:00:00 Completed [facility] SARS-COV-2 COVID-19 PFIZER VACCINE 2020-08-29 00:00:00 Completed [facility] SARS-COV-2 COVID-19 PFIZER VACCINE 2020-08-29 00:00:00 Completed [facility] SARS-COV-2 COVID-19 PFIZER VACCINE Unknown Completed [facility] SARS-COV-2 COVID-19 PFIZER VACCINE Unknown Completed [facility] Influenza Virus Vaccine Quad IM, Preserv and ABX Free 6 MO-64 YRS (FLUCELVAX) Unknown Completed [facility] TDAP Unknown Completed [facility] SARS-COV-2 COVID-19 PFIZER VACCINE Unknown Completed [facility] Meningococcal Polysaccharide (groups A, C, Y and W-135) conjugate vaccine (MCV4P) Unknown Completed [facility] SARS-COV-2 COVID-19 PFIZER VACCINE Unknown Completed [facility] SARS-COV-2 COVID-19 PFIZER VACCINE Unknown Completed [facility] Influenza Virus Vaccine Quad IM, Preserv and ABX Free 6 MO-64 YRS (FLUCELVAX) Unknown Completed [facility] TDAP Unknown Completed [facility] SARS-COV-2 COVID-19 PFIZER VACCINE Unknown Completed [facility] Meningococcal Polysaccharide (groups A, C, Y and W-135) conjugate vaccine (MCV4P) Unknown Completed [facility] SARS-COV-2 COVID-19 PFIZER VACCINE Unknown Completed [facility] SARS-COV-2 COVID-19 PFIZER VACCINE Unknown Completed [facility] Influenza Virus Vaccine Quad IM, Preserv and ABX Free 6 MO-64 YRS (FLUCELVAX) Unknown Completed [facility] TDAP Unknown Completed [facility] SARS-COV-2 COVID-19 PFIZER VACCINE Unknown Completed [facility] Meningococcal Polysaccharide (groups A, C, Y and W-135) conjugate vaccine (MCV4P) Unknown Completed [facility] SARS-COV-2 COVID-19 PFIZER VACCINE Unknown Completed [facility] SARS-COV-2 COVID-19 PFIZER VACCINE Unknown Completed [facility] Influenza Virus Vaccine Quad IM, Preserv and ABX Free 6 MO-64 YRS (FLUCELVAX) Unknown Completed [facility] TDAP Unknown Completed [facility] SARS-COV-2 COVID-19 PFIZER VACCINE Unknown Completed [facility] Meningococcal Polysaccharide (groups A, C, Y and W-135) conjugate vaccine (MCV4P) Unknown Completed [facility] SARS-COV-2 COVID-19 PFIZER VACCINE Unknown Completed [facility] SARS-COV-2 COVID-19 PFIZER VACCINE Unknown Completed [facility] Influenza Virus Vaccine Quad IM, Preserv and ABX Free 6 MO-64 YRS (FLUCELVAX) Unknown Completed [facility] TDAP Unknown Completed [facility] SARS-COV-2 COVID-19 PFIZER VACCINE Unknown Completed [facility] Meningococcal Polysaccharide (groups A, C, Y and W-135) conjugate vaccine (MCV4P) Unknown Completed [facility] SARS-COV-2 COVID-19 PFIZER VACCINE Unknown Completed [facility] SARS-COV-2 COVID-19 PFIZER VACCINE Unknown Completed [facility] Influenza Virus Vaccine Quad IM, Preserv and ABX Free 6 MO-64 YRS (FLUCELVAX) Unknown Completed [facility] TDAP Unknown Completed [facility] SARS-COV-2 COVID-19 PFIZER VACCINE Unknown Completed [facility] Meningococcal Polysaccharide (groups A, C, Y and W-135) conjugate vaccine (MCV4P) Unknown Completed [facility] Influenza Virus Vaccine Quad IM, Preserv and ABX Free 6 MO-64 YRS (FLUCELVAX) Unknown Completed [facility] SARS-COV-2 COVID-19 PFIZER VACCINE Unknown Completed [facility] SARS-COV-2 COVID-19 PFIZER VACCINE Unknown Completed [facility] Influenza Virus Vaccine Quad IM, Preserv and ABX Free 6 MO-64 YRS (FLUCELVAX) Unknown Completed [facility] TDAP Unknown Completed [facility] SARS-COV-2 COVID-19 PFIZER VACCINE Unknown Completed [facility] Meningococcal Polysaccharide (groups A, C, Y and W-135) conjugate vaccine (MCV4P) Unknown Completed [facility] Influenza Virus Vaccine Quad IM, Preserv and ABX Free 6 MO-64 YRS (FLUCELVAX) Unknown Completed [facility] SARS-COV-2 COVID-19 PFIZER VACCINE Unknown Completed [facility] SARS-COV-2 COVID-19 PFIZER VACCINE Unknown Completed [facility] Influenza Virus Vaccine Quad IM, Preserv and ABX Free 6 MO-64 YRS (FLUCELVAX) Unknown Completed [facility] TDAP Unknown Completed [facility] SARS-COV-2 COVID-19 PFIZER VACCINE Unknown Completed [facility] Meningococcal Polysaccharide (groups A, C, Y and W-135) conjugate vaccine (MCV4P) Unknown Completed [facility] Influenza Virus Vaccine Quad IM, Preserv and ABX Free 6 MO-64 YRS (FLUCELVAX) Unknown Completed [facility] SARS-COV-2 COVID-19 PFIZER VACCINE Unknown Completed [facility] SARS-COV-2 COVID-19 PFIZER VACCINE Unknown Completed [facility] Influenza Virus Vaccine Quad IM, Preserv and ABX Free 6 MO-64 YRS (FLUCELVAX) Unknown Completed [facility] TDAP Unknown Completed [facility] SARS-COV-2 COVID-19 PFIZER VACCINE Unknown Completed [facility] Meningococcal Polysaccharide (groups A, C, Y and W-135) conjugate vaccine (MCV4P) Unknown Completed [facility] Influenza Virus Vaccine Quad IM, Preserv and ABX Free 6 MO-64 YRS (FLUCELVAX) Unknown Completed [facility] SARS-COV-2 COVID-19 PFIZER VACCINE Unknown Completed [facility] SARS-COV-2 COVID-19 PFIZER VACCINE Unknown Completed [facility] Influenza Virus Vaccine Quad IM, Preserv and ABX Free 6 MO-64 YRS (FLUCELVAX) Unknown Completed [facility] TDAP Unknown Completed [facility] SARS-COV-2 COVID-19 PFIZER VACCINE Unknown Completed [facility] Meningococcal Polysaccharide (groups A, C, Y and W-135) conjugate vaccine (MCV4P) Unknown [facility] [facility] Influ[facility] Vaccine Quad IM, Preserv and ABX Free 6 MO-64 YRS (FLUCELVAX) Unknown Completed [facility] SARS-COV-2 COVID-19 PFIZER VACCINE Unknown Completed [facility] SARS-COV-2 COVID-19 PFIZER VACCINE Unknown Completed [facility] Influenza Virus Vaccine Quad IM, Preserv and ABX Free 6 MO-64 YRS (FLUCELVAX) Unknown Completed [facility] TDAP Unknown Completed [facility] SARS-COV-2 COVID-19 PFIZER VACCINE Unknown Completed [facility] Meningococcal Polysaccharide (groups A, C, Y and W-135) conjugate vaccine (MCV4P) Unknown Completed [facility] Influenza Virus Vaccine Quad IM, Preserv and ABX Free 6 MO-64 YRS (FLUCELVAX) Unknown Completed [facility] SARS-COV-2 COVID-19 PFIZER VACCINE Unknown Completed [facility] SARS-COV-2 COVID-19 PFIZER VACCINE Unknown Completed [facility] Influenza Virus Vaccine Quad IM, Preserv and ABX Free 6 MO-64 YRS (FLUCELVAX) Unknown Completed [facility] TDAP Unknown Completed [facility] SARS-COV-2 COVID-19 PFIZER VACCINE Unknown Completed [facility] Meningococcal Polysaccharide (groups A, C, Y and W-135) conjugate vaccine (MCV4P) Unknown Completed [facility] Influenza Virus Vaccine Quad IM, Preserv and ABX Free 6 MO-64 YRS (FLUCELVAX) Unknown Completed [facility] SARS-COV-2 COVID-19 PFIZER VACCINE Unknown Completed [facility] SARS-COV-2 COVID-19 PFIZER VACCINE Unknown Completed [facility] Influenza Virus Vaccine Quad IM, Preserv and ABX Free 6 MO-64 YRS (FLUCELVAX) Unknown Completed [facility] TDAP Unknown Completed [facility] SARS-COV-2 COVID-19 PFIZER VACCINE Unknown Completed [facility] Meningococcal Polysaccharide (groups A, C, Y and W-135) conjugate vaccine (MCV4P) Unknown Completed [facility] Influenza Virus Vaccine Quad IM, Preserv and ABX Free 6 MO-64 YRS (FLUCELVAX) Unknown Completed [facility] SARS-COV-2 COVID-19 PFIZER VACCINE Unknown Completed [facility] SARS-COV-2 COVID-19 PFIZER VACCINE Unknown Completed [facility] Influenza Virus Vaccine Quad IM, Preserv and ABX Free 6 MO-64 YRS (FLUCELVAX) Unknown Completed [facility] TDAP Unknown Completed [facility] SARS-COV-2 COVID-19 PFIZER VACCINE Unknown Completed [facility] Meningococcal Polysaccharide (groups A, C, Y and W-135) conjugate vaccine (MCV4P) Unknown Completed [facility] Influenza Virus Vaccine Quad IM, Preserv and ABX Free 6 MO-64 YRS (FLUCELVAX) Unknown Completed [facility] SARS-COV-2 COVID-19 PFIZER VACCINE Unknown Completed [facility] SARS-COV-2 COVID-19 PFIZER VACCINE Unknown Completed [facility] Influenza Virus Vaccine Quad IM, Preserv and ABX Free 6 MO-64 YRS (FLUCELVAX) Unknown Completed [facility] TDAP Unknown Completed [facility] SARS-COV-2 COVID-19 PFIZER VACCINE Unknown Completed [facility] Meningococcal Polysaccharide (groups A, C, Y and W-135) conjugate vaccine (MCV4P) Unknown Completed [facility] Influenza Virus Vaccine Quad IM, Preserv and ABX Free 6 MO-64 YRS (FLUCELVAX) Unknown Completed [facility] SARS-COV-2 COVID-19 PFIZER VACCINE Unknown Completed [facility] SARS-COV-2 COVID-19 PFIZER VACCINE Unknown Completed [facility] Influenza Virus Vaccine Quad IM, Preserv and ABX Free 6 MO-64 YRS (FLUCELVAX) Unknown Completed [facility] TDAP Unknown Completed [facility] SARS-COV-2 COVID-19 PFIZER VACCINE Unknown Completed [facility] Meningococcal Polysaccharide (groups A, C, Y and W-135) conjugate vaccine (MCV4P) Unknown Completed [facility] Influenza Virus Vaccine Quad IM, Preserv and ABX Free 6 MO-64 YRS (FLUCELVAX) Unknown Completed [facility] SARS-COV-2 COVID-19 PFIZER VACCINE Unknown Completed [facility] SARS-COV-2 COVID-19 PFIZER VACCINE Unknown Completed [facility] Influenza Virus Vaccine Quad IM, Preserv and ABX Free 6 MO-64 YRS (FLUCELVAX) Unknown Completed [facility] TDAP Unknown Completed [facility] SARS-COV-2 COVID-19 PFIZER VACCINE Unknown Completed [facility] Meningococcal Polysaccharide (groups A, C, Y and W-135) conjugate vaccine (MCV4P) Unknown Completed [facility] Influenza Virus Vaccine Quad IM, Preserv and ABX Free 6 MO-64 YRS (FLUCELVAX) Unknown Completed [facility] SARS-COV-2 COVID-19 PFIZER VACCINE Unknown Completed [facility] SARS-COV-2 COVID-19 PFIZER VACCINE Unknown Completed [facility] Influenza Virus Vaccine Quad IM, Preserv and ABX Free 6 MO-64 YRS (FLUCELVAX) Unknown Completed [facility] TDAP Unknown Completed [facility] SARS-COV-2 COVID-19 PFIZER VACCINE Unknown Completed [facility] Meningococcal Polysaccharide (groups A, C, Y and W-135) conjugate vaccine (MCV4P) Unknown Completed [facility] Influenza Virus Vaccine Quad IM, Preserv and ABX Free 6 MO-64 YRS (FLUCELVAX) Unknown Completed [facility] SARS-COV-2 COVID-19 PFIZER VACCINE Unknown Completed [facility] SARS-COV-2 COVID-19 PFIZER VACCINE Unknown Completed [facility] Influenza Virus Vaccine Quad IM, Preserv and ABX Free 6 MO-64 YRS (FLUCELVAX) Unknown Completed [facility] TDAP Unknown Completed [facility] SARS-COV-2 COVID-19 PFIZER VACCINE Unknown Completed [facility] Meningococcal Polysaccharide (groups A, C, Y and W-135) conjugate vaccine (MCV4P) Unknown Completed [facility] Influenza Virus Vaccine Quad IM, Preserv and ABX Free 6 MO-64 YRS (FLUCELVAX) Unknown Completed [facility] SARS-COV-2 COVID-19 PFIZER VACCINE Unknown Completed [facility] SARS-COV-2 COVID-19 PFIZER VACCINE Unknown Completed [facility] Influenza Virus Vaccine Quad IM, Preserv and ABX Free 6 MO-64 YRS (FLUCELVAX) Unknown Completed [facility] TDAP Unknown Completed [facility] SARS-COV-2 COVID-19 PFIZER VACCINE Unknown Completed [facility] Meningococcal Polysaccharide (groups A, C, Y and W-135) conjugate vaccine (MCV4P) Unknown Completed [facility] Influenza Virus Vaccine Quad IM, Preserv and ABX Free 6 MO-64 YRS (FLUCELVAX) Unknown Completed [facility] SARS-COV-2 COVID-19 PFIZER VACCINE Unknown Completed [facility] SARS-COV-2 COVID-19 PFIZER VACCINE Unknown Completed [facility] Influenza Virus Vaccine Quad IM, Preserv and ABX Free 6 MO-64 YRS (FLUCELVAX) Unknown Completed [facility] TDAP Unknown Completed [facility] SARS-COV-2 COVID-19 PFIZER VACCINE Unknown Completed [facility] Meningococcal Polysaccharide (groups A, C, Y and W-135) conjugate vaccine (MCV4P) Unknown Completed [facility] Influenza Virus Vaccine Quad IM, Preserv and ABX Free 6 MO-64 YRS (FLUCELVAX) Unknown Completed [facility] SARS-COV-2 COVID-19 PFIZER VACCINE Unknown Completed [facility] SARS-COV-2 COVID-19 PFIZER VACCINE Unknown Completed [facility] Influenza Virus Vaccine Quad IM, Preserv and ABX Free 6 MO-64 YRS (FLUCELVAX) Unknown Completed [facility] TDAP Unknown Completed [facility] SARS-COV-2 COVID-19 PFIZER VACCINE Unknown Completed [facility] Meningococcal Polysaccharide (groups A, C, Y and W-135) conjugate vaccine (MCV4P) Unknown Completed [facility] Influenza Virus Vaccine Quad IM, Preserv and ABX Free 6 MO-64 YRS (FLUCELVAX) Unknown Completed [facility] SARS-COV-2 COVID-19 PFIZER VACCINE Unknown Completed [facility] SARS-COV-2 COVID-19 PFIZER VACCINE Unknown Completed [facility] Influenza Virus Vaccine Quad IM, Preserv and ABX Free 6 MO-64 YRS (FLUCELVAX) Unknown Completed [facility] TDAP Unknown Completed [facility] SARS-COV-2 COVID-19 PFIZER VACCINE Unknown Completed [facility] Meningococcal Polysaccharide (groups A, C, Y and W-135) conjugate vaccine (MCV4P) Unknown Completed [facility] Influenza Virus Vaccine Quad IM, Preserv and ABX Free 6 MO-64 YRS (FLUCELVAX) Unknown Completed [facility] SARS-COV-2 COVID-19 PFIZER VACCINE Unknown Completed [facility] SARS-COV-2 COVID-19 PFIZER VACCINE Unknown Completed [facility] Influenza Virus Vaccine Quad IM, Preserv and ABX Free 6 MO-64 YRS (FLUCELVAX) Unknown Completed [facility] TDAP Unknown Completed [facility] SARS-COV-2 COVID-19 PFIZER VACCINE Unknown Completed [facility] Meningococcal Polysaccharide (groups A, C, Y and W-135) conjugate vaccine (MCV4P) Unknown Completed [facility] Influenza Virus Vaccine Quad IM, Preserv and ABX Free 6 MO-64 YRS (FLUCELVAX) Unknown Completed [facility] SARS-COV-2 COVID-19 PFIZER VACCINE Unknown Completed [facility] SARS-COV-2 COVID-19 PFIZER VACCINE Unknown Completed [facility] Influenza Virus Vaccine Quad IM, Preserv and ABX Free 6 MO-64 YRS (FLUCELVAX) Unknown Completed [facility] TDAP Unknown Completed [facility] SARS-COV-2 COVID-19 PFIZER VACCINE Unknown Completed [facility] Meningococcal Polysaccharide (groups A, C, Y and W-135) conjugate vaccine (MCV4P) Unknown Completed [facility] Influenza Virus Vaccine Quad IM, Preserv and ABX Free 6 MO-64 YRS (FLUCELVAX) Unknown Completed [facility] SARS-COV-2 COVID-19 PFIZER VACCINE Unknown Completed [facility] SARS-COV-2 COVID-19 PFIZER VACCINE Unknown Completed [facility] Influenza Virus Vaccine Quad IM, Preserv and ABX Free 6 MO-64 YRS (FLUCELVAX) Unknown Completed [facility] TDAP Unknown Completed [facility] SARS-COV-2 COVID-19 PFIZER VACCINE Unknown Completed [facility] Meningococcal Polysaccharide (groups A, C, Y and W-135) conjugate vaccine (MCV4P) Unknown Completed [facility] Influenza Virus Vaccine Quad IM, Preserv and ABX Free 6 MO-64 YRS (FLUCELVAX) Unknown Completed [facility] SARS-COV-2 COVID-19 PFIZER VACCINE Unknown Completed [facility] SARS-COV-2 COVID-19 PFIZER VACCINE Unknown Completed [facility] Influenza Virus Vaccine Quad IM, Preserv and ABX Free 6 MO-64 YRS (FLUCELVAX) Unknown Completed [facility] TDAP Unknown Completed [facility] SARS-COV-2 COVID-19 PFIZER VACCINE Unknown Completed [facility] Meningococcal Polysaccharide (groups A, C, Y and W-135) conjugate vaccine (MCV4P) Unknown Completed [facility] Influenza Virus Vaccine Quad IM, Preserv and ABX Free 6 MO-64 YRS (FLUCELVAX) Unknown Completed [facility] SARS-COV-2 COVID-19 PFIZER VACCINE Unknown Completed [facility] SARS-COV-2 COVID-19 PFIZER VACCINE Unknown Completed [facility] Influenza Virus Vaccine Quad IM, Preserv and ABX Free 6 MO-64 YRS (FLUCELVAX) Unknown Completed [facility] TDAP Unknown Completed [facility] SARS-COV-2 COVID-19 PFIZER VACCINE Unknown Completed [facility] Meningococcal Polysaccharide (groups A, C, Y and W-135) conjugate vaccine (MCV4P) Unknown Completed [facility] Influenza Virus Vaccine Quad IM, Preserv and ABX Free 6 MO-64 YRS (FLUCELVAX) Unknown Completed [facility] SARS-COV-2 COVID-19 PFIZER VACCINE Unknown Completed [facility] SARS-COV-2 COVID-19 PFIZER VACCINE Unknown Completed [facility] Influenza Virus Vaccine Quad IM, Preserv and ABX Free 6 MO-64 YRS (FLUCELVAX) Unknown Completed [facility] TDAP Unknown Completed [facility] SARS-COV-2 COVID-19 PFIZER VACCINE Unknown Completed [facility] Meningococcal Polysaccharide (groups A, C, Y and W-135) conjugate vaccine (MCV4P) Unknown Completed [facility] Influenza Virus Vaccine Quad IM, Preserv and ABX Free 6 MO-64 YRS (FLUCELVAX) Unknown Completed [facility] SARS-COV-2 COVID-19 PFIZER VACCINE Unknown Completed [facility] SARS-COV-2 COVID-19 PFIZER VACCINE Unknown Completed [facility] Influenza Virus Vaccine Quad IM, Preserv and ABX Free 6 MO-64 YRS (FLUCELVAX) Unknown Completed [facility] TDAP Unknown Completed [facility] SARS-COV-2 COVID-19 PFIZER VACCINE Unknown Completed [facility] Meningococcal Polysaccharide (groups A, C, Y and W-135) conjugate vaccine (MCV4P) Unknown Completed [facility] Influenza Virus Vaccine Quad IM, Preserv and ABX Free 6 MO-64 YRS (FLUCELVAX) Unknown Completed [facility] SARS-COV-2 COVID-19 PFIZER VACCINE Unknown Completed [facility] SARS-COV-2 COVID-19 PFIZER VACCINE Unknown Completed [facility] Influenza Virus Vaccine Quad IM, Preserv and ABX Free 6 MO-64 YRS (FLUCELVAX) Unknown Completed [facility] TDAP Unknown Completed [facility] SARS-COV-2 COVID-19 PFIZER VACCINE Unknown Completed [facility] Meningococcal Polysaccharide (groups A, C, Y and W-135) conjugate vaccine (MCV4P) Unknown Completed [facility] Influenza Virus Vaccine Quad IM, Preserv and ABX Free 6 MO-64 YRS (FLUCELVAX) Unknown Completed [facility] SARS-COV-2 COVID-19 PFIZER VACCINE Unknown Completed [facility] SARS-COV-2 COVID-19 PFIZER VACCINE Unknown Completed [facility] Influenza Virus Vaccine Quad IM, Preserv and ABX Free 6 MO-64 YRS (FLUCELVAX) Unknown Completed [facility] TDAP Unknown Completed [facility] SARS-COV-2 COVID-19 PFIZER VACCINE Unknown Completed [facility] Meningococcal Polysaccharide (groups A, C, Y and W-135) conjugate vaccine (MCV4P) Unknown Completed [facility] Influenza Virus Vaccine Quad IM, Preserv and ABX Free 6 MO-64 YRS (FLUCELVAX) Unknown Completed [facility] SARS-COV-2 COVID-19 PFIZER VACCINE Unknown Completed [facility] SARS-COV-2 COVID-19 PFIZER VACCINE Unknown Completed [facility] Influenza Virus Vaccine Quad IM, Preserv and ABX Free 6 MO-64 YRS (FLUCELVAX) Unknown Completed [facility] TDAP Unknown Completed [facility] SARS-COV-2 COVID-19 PFIZER VACCINE Unknown Completed [facility] Meningococcal Polysaccharide (groups A, C, Y and W-135) conjugate vaccine (MCV4P) Unknown Completed [facility] Influenza Virus Vaccine Quad IM, Preserv and ABX Free 6 MO-64 YRS (FLUCELVAX) Unknown Completed [facility] SARS-COV-2 COVID-19 PFIZER VACCINE Unknown Completed [facility] SARS-COV-2 COVID-19 PFIZER VACCINE Unknown Completed [facility] Influenza Virus Vaccine Quad IM, Preserv and ABX Free 6 MO-64 YRS (FLUCELVAX) Unknown Completed [facility] TDAP Unknown Completed [facility] SARS-COV-2 COVID-19 PFIZER VACCINE Unknown Completed [facility] Meningococcal Polysaccharide (groups A, C, Y and W-135) conjugate vaccine (MCV4P) Unknown Completed [facility] Influenza Virus Vaccine Quad IM, Preserv and ABX Free 6 MO-64 YRS (FLUCELVAX) Unknown Completed [facility] Vital Signs Vital Name Observation Time Observation Value Comments S ource Systolic blood pressure 2023-07-24 19:18:00 107 mm[Hg] [facility] Diastolic blood pressure 2023-07-24 19:18:00 72 mm[Hg] [facility] Heart rate 2023-07-24 19:18:00 109 /min [facility] Body temperature 2023-07-24 19:18:00 36.72 Janet [facility] Body height 2023-07-24 19:18:00 152.4 cm [facility] Body weight 2023-07-24 19:18:00 88.814 kg [facility] BMI 2023-07-24 19:18:00 38.24 kg/m2 [facility] Oxygen saturation in Arterial blood by Pulse oximetry 2023-07-24 19:18:00 95 /min [facility] Systolic blood pressure 2023-07-23 19:46:00 116 mm[Hg] [facility] Diastolic blood pressure 2023-07-23 19:46:00 79 mm[Hg] [facility] Heart rate 2023-07-23 19:46:00 106 /min [facility] Body temperature 2023-07-23 19:46:00 35.89 Janet [facility] Respiratory rate 2023-07-23 19:46:00 16 /min [facility] Body height 2023-07-23 19:46:00 152.4 cm [facility] Body weight 2023-07-23 19:46:00 91.853 kg [facility] BMI 2023-07-23 19:46:00 39.55 kg/m2 [facility] Oxygen saturation in Arterial blood by Pulse oximetry 2023-07-23 19:46:00 95 /min [facility] Systolic blood pressure 2023-06-17 22:49:00 122 mm[Hg] [facility] Diastolic blood pressure 2023-06-17 22:49:00 81 mm[Hg] [facility] Heart rate 2023-06-17 22:49:00 98 /min [facility] Body temperature 2023-06-17 22:49:00 36.44 Janet [facility] Respiratory rate 2023-06-17 22:49:00 18 /min [facility] Body height 2023-06-17 22:49:00 152.4 cm [facility] Body weight 2023-06-17 22:49:00 92.987 kg [facility] BMI 2023-06-17 22:49:00 40.04 kg/m2 [facility] Oxygen saturation in Arterial blood by Pulse oximetry 2023-06-17 22:49:00 95 /min [facility] Systolic blood pressure 2023-05-15 19:30:00 110 mm[Hg] [facility] Diastolic blood pressure 2023-05-15 19:30:00 75 mm[Hg] [facility] Heart rate 2023-05-15 19:30:00 96 /min [facility] Body temperature 2023-05-15 19:30:00 36.72 Janet [facility] Respiratory rate 2023-05-15 19:30:00 18 /min [facility] Body height 2023-05-15 19:30:00 152.4 cm [facility] Body weight 2023-05-15 19:30:00 91.536 kg [facility] BMI 2023-05-15 19:30:00 39[facility]41 [facility] in Arterial blood by Pulse oximetry 2023-05-15 19:30:00 100 /min [facility] Systolic blood pressure 2023-04-21 20:28:00 126 mm[Hg] [facility] Diastolic blood pressure 2023-04-21 20:28:00 86 mm[Hg] [facility] Heart rate 2023-04-21 20:28:00 98 /min [facility] Body temperature 2023-04-21 20:28:00 36.11 Janet [facility] Respiratory rate 2023-04-21 20:28:00 16 /min [facility] Body height 2023-04-21 20:28:00 152.4 cm [facility] weight 2023-04-21 20:28:00 94.802 kg [facility] BMI 2023-04-21 20:28:00 40.82 kg/m[facility] Oxygen saturation in Arterial blood by Pulse oximetry 2023-04-21 20:28:00 100 /min [facility] Systolic blood pressure 2023-03-26 20:35:00 127 mm[Hg] [facility] Diastolic blood pressure 2023-03-26 20:35:00 80 mm[Hg] [facility] Heart rate 2023-03-26 20:35:00 90 /[facility] 2023-03-26 20:35:00 152.4 cm [facility] Body weight 2023-03-26 20:35:00 94.167 kg [facility] BMI 2023-03-26 20:35:00 40.54 kg/m2 [facility] Oxygen saturation in Arterial blood by Pulse oximetry 2023-03-26 20:35:00 98 /min [facility] Systolic blood pressure 2023-02-23 14:43:00 119 mm[Hg] [facility] Diastolic blood pressure 2023-02-23 14:43:00 79 mm[Hg] [facility] Heart rate 2023-02-23 14:43:00 107 /min [facility] Respiratory rate 2023-02-23 14:43:00 18 /min [facility] Body height 2023-02-23 14:43:00 152.4 cm [facility] Body weight 2023-02-23 14:43:00 94.802 kg [facility] BMI 2023-02-23 14:43:00 40.82 kg/m2 [facility] Systolic blood pressure 2022-12-24 18:25:00 107 mm[Hg] [facility] Diastolic blood pressure 2022-12-24 18:25:00 69 mm[Hg] [facility] Heart rate 2022-12-24 18:25:00 92 /min [facility] Body temperature 2022-12-24 18:25:00 36.61 Janet [facility] Body height 2022-12-24 18:25:00 152.4 [facility] Body weight 2022-12-24 18:25:00 95.709 kg [facility] BMI 2022-12-24 18:25:00 41.21 kg/m2 [facility] Oxygen saturation in Arterial blood by Pulse oximetry 2022-12-24 18:25:00 97 /min [facility] Systolic blood pressure 2022-11-18 13:42:00 128 mm[Hg] [facility] Diastolic blood pressure 2022-11-18 13:42:00 85 mm[Hg] [facility] Heart rate 2022-11-18 13:42:00 108 /min [facility] Body temperature 2022-11-18 13:42:00 36.89 Janet [facility] Body height 2022-11-18 13:42:00 152.4 cm [facility] Body weight 2022-11-18 13:42:00 94.983 kg [facility] BMI 2022-11-18 13:42:00 40.90 kg/m2 [facility] Systolic blood pressure 2022-11-12 20:11:00 131 mm[Hg] [facility] Diastolic blood pressure 2022-11-12 20:11:00 84 mm[Hg] [facility] Heart rate 2022-11-12 20:11:00 100 /min [facility] Body temperature 2022-11-12 20:11:00 36.78 Janet [facility] Body height 2022-11-12 20:11:00 152.4 cm [facility] Body weight 2022-11-12 20:11:00 95.709 kg [facility] BMI 2022-11-12 20:11:00 41.21 kg/m2 [facility] Oxygen saturation in Arterial blood by Pulse oximetry 2022-11-12 20:11:00 96 /min [facility] Systolic blood pressure 2022-09-08 19:56:00 122 mm[Hg] [facility] Diastolic blood pressure 2022-09-08 19:56:00 81 mm[Hg] [facility] Heart rate 2022-09-08 19:56:00 95 /min [facility] 2022-09-08 19:56:00 152.4 cm [facility] Body weight 2022-09-08 19:56:00 94.756 kg [facility] BMI 2022-09-08 19:56:00 40.80 kg/m2 [facility] Oxygen saturation in Arterial blood by Pulse oximetry 2022-09-08 19:56:00 98 /min [facility] Systolic blood pressure 2022-08-12 17:16:00 131 mm[Hg] [facility] Diastolic blood pressure 2022-08-12 17:16:00 80 mm[Hg] [facility] Heart rate 2022-08-12 17:15:00 113 /min [facility] Body temperature 2022-08-12 17:15:00 36.72 Janet [facility] Respiratory rate 2022-08-12 17:15:00 18 /min [facility] Body height 2022-08-12 17:15:00 152.4 cm [facility] Body weight 2022-08-12 17:15:00 94.892 kg [facility] BMI 2022-08-12 17:15:00 40.86 kg/m2 [facility] Systolic blood pressure 2022-08-08 15:20:00 134 mm[Hg] [facility] Diastolic blood pressure 2022-08-08 15:20:00 71 mm[Hg] [facility] Heart rate 2022-08-08 15:20:00 93 /min [facility] Body height 2022-08-08 15:20:00 152.4 cm [facility] Body weight 2022-08-08 15:20:00 95.618 kg [facility] BMI 2022-08-08 15:20:00 41.17 kg/m2 [facility] Oxygen saturation in Arterial blood by Pulse oximetry 2022-08-08 15:20:00 98 /min [facility] Systolic blood pressure 2022-06-27 22:07:00 125 mm[Hg] [facility] Diastolic blood pressure 2022-06-27 22:07:00 85 mm[Hg] [facility] Heart rate 2022-06-27 22:07:00 95 /min [facility] Body height 2022-06-27 22:07:00 152.4 cm [facility] Body weight 2022-06-27 22:07:00 94.802 kg [facility] BMI 2022-06-27 22:07:00 40.82 kg/m2 [facility] Oxygen saturation in Arterial blood by Pulse oximetry 2022-06-27 22:07:00 97 /min [facility] Systolic blood pressure 2022-05-19 15:24:00 116 mm[Hg] [facility] Diastolic blood pressure 2022-05-19 15:24:00 80 mm[Hg] [facility] Heart rate 2022-05-19 15:22:00 101 /min [facility] Body temperature 2022-05-19 15:22:00 36.94 Janet [facility] Respiratory rate 2022-05-19 15:22:00 18 /min [facility] Body height 2022-05-19 15:22:00 152.4 cm [facility] Body weight 2022-05-19 15:22:00 95.074 kg [facility] BMI 2022-05-19 15:22:00 40.93 kg/m2 [facility] Systolic blood pressure 2022-05-05 20:21:00 124 mm[Hg] [facility] Diastolic blood pressure 2022-05-05 20:21:00 84 mm[Hg] [facility] Heart rate 2022-05-05 20:21:00 109 /min [facility] Body temperature 2022-05-05 20:21:00 36.67 Janet [facility] Respiratory rate 2022-05-05 20:21:00 18 /min [facility] Body height 2022-05-05 20:21:00 152.4 cm [facility] Body weight 2022-05-05 20:21:00 93.895 kg [facility] BMI 2022-05-05 20:21:00 40.43 kg/m2 [facility] Systolic blood pressure 2022-04-17 16:43:00 124 mm[Hg] [facility] Diastolic blood pressure 2022-04-17 16:43:00 80 mm[Hg] [facility] Heart rate 2022-04-17 16:43:00 111 /min [facility] Body temperature 2022-04-17 16:43:00 36.72 Janet [facility] Body height 2022-04-17 16:43:00 152.4 cm [facility] Body weight 2022-04-17 16:43:00 94.983 kg [facility] BMI 2022-04-17 16:43:00 40.90 kg/m2 [facility] Systolic blood pressure 2022-04-11 19:57:00 134 mm[Hg] [facility] Diastolic blood pressure 2022-04-11 19:57:00 83 mm[Hg] [facility] Heart rate 2022-04-11 19:57:00 103 /min [facility] Body height 2022-04-11 19:57:00 152.4 cm [facility] Body weight 2022-04-11 19:57:00 94.575 kg [facility] BMI 2022-04-11 19:57:00 40.72 kg/m2 [facility] Oxygen saturation in Arterial blood by Pulse oximetry 2022-04-11 19:57:00 95 /min [facility] Height 2022-03-05 00:00:00 60 [in_i] [facility] BMI (Body Mass Index) 2022-03-05 00:00:00 40 kg/m2 [facility] Body Weight 2022-03-05 00:00:00 205 [lb_av] Yolande laniera [facility] Procedures Procedure Date / Time Performed Performing Clinician Source AUTHORIZATION FOR RELEASE OF PHI 2023-06-19 06:01:00 Doctor Unassigned, [place] [facility] POCT TEST 2023-06-17 22:56:00 Nicky Peck [facility] POCT URINALYSIS 2023-06-17 22:52:00 Nicky Peck [facility] DME/SUPPLY JUSTIFICATION 2023-06-15 06:01:00 Doc tor Unassigned, [place] [facility] MAGNESIUM 2023-05-15 19:57:00 Nicky Peck [facility] VITAMIN B12, LEVEL 2023-05-15 19:57:00 Nicky Peck [facility] THYROID STIMULATING HORMONE 2023-05-15 19:57:00 Nicky Peck [facility] COMP. METABOLIC PANEL (01326) 2023-05-15 19:57:00 Nicky Peck [facility] CBC WITH DIFF 2023-05-15 19:57:00 Nicky Peck [facility] POCT TEST 2023-05-15 00:00:00 Nicky Peck [facility] ALKALINE PHOSPHATASE, TOTAL 2023-04-21 20:58:00 Tian Caro [facility] VITAMIN D, 25-OH 2023-04-21 20:58:00 Tian Caro [facility] N-TELOPEPTIDE, SERUM 2023-04-21 20:58:00 Chiki Caro [facility] INTACT PTH CALCIUM GROUP 2023-04-21 20:58:00 Jaime Caro [facility] FLU VACC ([id number]), 6 MO-64 YRS, .5ML, IM, QUAD (FLUCELVAX) 2023-03-26 20:50:06 Kelly Reynaga [facility] US ABDOMEN LIMITED 2023-02-06 20:45:00 Nicky Peck [facility] ASSIGNMENT OF BENEFITS 2023-02-06 20:13:40 Docto r Unassigned, [place] [facility] CONSENT/REFUSAL FOR DIAGNOSIS AND TREATMENT 2023-02-06 20:13:17 Doctor Unassigned, [place] [facility] POCT TEST 2022-12-24 18:42:00 Nicky Peck [facility] POCT URINALYSIS 2022-12-24 18:35:00 Nicky Peck [facility] POCT TEST 2022-11-18 00:00:00 Supriya Luther [facility] ASSIGNMENT OF BENEFITS 2022-11-12 20:11:20 Docto r Unassigned, [place] [facility] INSURANCE CORRESPONDENCE 2022-10-07 05:01:00 Doc tor Unassigned, [place] [facility] DME/SUPPLY JUSTIFICATION 2022-08-21 05:01:00 Doc tor Unassigned, [place] [facility] DME/SUPPLY JUSTIFICATION 2022-08-01 06:01:00 Doc tor Unassigned, [place] [facility] US ABDOMEN LIMITED 2022-06-17 16:16:37 Marley Camarillo [facility] POCT TEST 2022-05-19 15:52:00 Nishant Chapman [facility] CONSENT FOR CONTRACEPTION 2022-05-19 06:01:00 Do ctor Unassigned, [place] [facility] POCT TEST 2022-05-05 20:30:00 Nishant Chapman [facility] DISCLOSURE AND CONSENT, MEDICAL AND SURGICAL PROCEDURES 2022-05-05 06:01:00 Doctor Unassigned, [place] [facility] POCT TEST 2022-04-17 00:00:00 Nishant Chapman [facility] CBC WITH DIFF 2022-02-19 22:11:00 Vannesa Kaplan [facility] INSURANCE CORRESPONDENCE 2022-02-04 05:01:00 Doc tor Unassigned, [place] [facility] Encounters Start Date/Time End Date/Time Encounter Type Admission Type Attending Clinicians Care Facility Care Department Encounter ID Source 2023-08-25 09:30:00 2023-08-25 09:30:00 Outpatient BABAR BAZAN [facility] [id number] [facility] 2023-08-04 10:30:00 2023-08-04 10:30:00 Outpatient TONE FOSTER SHIWAN [facility] [id number] [facility] 2023-07-24 13:00:00 2023-07-24 13:39:25 Outpatient R NICKY PECK [facility] [id number] [facility] 2023-07-24 13:00:00 2023-07-24 13:39:25 Office Visit Nicky Peck [facility] 1.114 350.1.13.10 4.2.7.2.686 [id number] [facility] 2023-07-23 14:30:00 2023-07-23 15:00:00 Office Visit Obey Cage [facility] 1..114 350.1.13.10 4.2.7.2.686 [id number] [facility] 2023-07-23 14:30:00 2023-07-23 14:30:00 Outpatient R OBEY CAGE [facility] [id number] [facility] 2023-07-15 00:00:00 2023-07-15 00:00:00 Telephone Tian Caro [facility] 1.84.114 350.1.13.10 4.2.7.2.686 [id number] [facility] 2023-07-10 00:00:00 2023-07-10 00:00:00 Refill Tian Caro [facility] 1.84.114 350.1.13.10 4.2.7.2.686 [id number] [facility] 2023-06-25 00:00:00 2023-06-25 00:00:00 Refill Kelly Reynaga [facility] 1.84.114 350.1.13.10 4.2.7.2.686 [id number] [facility] 2023-06-19 00:00:00 2023-06-19 00:00:00 Orders Only Doctor Unassigned, [place] [facility] 1.2840.114 350.1.13.10 4.2.7.2.686 [id number] [facility] 2023-06-17 16:30:00 2023-06-17 17:26:16 Outpatient R NICKY PECK [facility] [id number] [facility] 2023-06-17 16:30:00 2023-06-17 17:26:16 Office Visit Nicky Peck [facility] 1.2840.114 350.1.13.10 4.2.7.2.686 [id number] [facility] 2023-06-17 17:00:00 2023-06-17 17:15:00 Closing Machine Operator Visit Lab, Ang - Db Nicky Peck [facility] 1.840.114 350.1.13.10 4.2.7.2.686 [id number] [facility] 2023-06-15 00:00:00 2023-06-15 00:00:00 Orders Only Doctor Unassigned, [place] [facility] 1.2840.114 350.1.13.10 4.2.7.2.686 [id number] [facility] 2023-06-12 00:00:00 2023-06-12 00:00:00 Telephone Nicky Peck [facility] 1.2840.114 350.1.13.10 4.2.7.2.686 [id number] [facility] 2023-06-11 00:00:00 2023-06-11 00:00:00 Telephone Nicky Peck [facility] 1.2840.114 350.1.13.10 4.2.7.2.686 [id number] [facility] 2023-06-11 00:00:00 2023-06-11 00:00:00 Telephone Santiago Pecklichanel Montano [facility] 1.2840.114 350.1.13.10 4.2.7.2.686 [id number] [facility] 2023-06-10 14:15:45 2023-06-10 23:59:00 Outpatient R NICKY PECK [facility] [id number] [facility] 2023-06-10 14:15:45 2023-06-10 23:59:00 Hospital Encounter Cisco Nicky Montano [facility] 1.2840.114 350.1.13.10 4.2.7.2.686 [id number] [facility] 2023-05-25 00:00:00 2023-05-25 00:00:00 Telephone Tian Caro [facility] 1.2840.114 350.1.13.10 4.2.7.2.686 [id number] [facility] 2023-05-21 00:00:00 2023-05-21 00:00:00 Telephone Kelly Reynaga [facility] 1.2840.114 350.1.13.10 4.2.7.2.686 [id number] [facility] 2023-05-19 00:00:00 2023-05-19 00:00:00 Telephone CiscoNicky [facility] 1.2840.114 350.1.13.10 4.2.7.2.686 [id number] [facility] 2023-05-18 10:30:00 2023-05-18 11:20:17 Outpatient R NISHANT CHAPMAN [facility] [id number] [facility] 2023-05-15 14:00:00 2023-05-15 14:15:00 Closing Machine Operator [facility] 1.2.840.114 350.1.13.10 4.2.7.2.686 [id number] [facility] 2023-05-15 13:00:00 2023-05-15 13:51:35 Outpatient R NICKY PECK [facility] [id number] [facility] 2023-05-15 13:00:00 2023-05-15 13:51:35 Office Visit Nicky Peck Dusty [facility] 1..840.114 350.1.13.10 4.2.7.2.686 [id number] [facility] 2023-04-21 15:00:00 2023-04-21 15:30:00 Office Visit Tian Caro [facility] 1..840.114 350.1.13.10 4.2.7.2.686 [id number] [facility] 2023-04-21 15:00:00 2023-04-21 15:00:00 Outpatient R TIAN CARO [facility] [id number] [facility] 2023-04-20 15:53:37 2023-04-20 15:53:37 Outpatient [facility] [id number] Mateusz Dorado 2023-03-26 16:00:00 2023-03-26 16:15:00 Closing Machine Operator Visit Lab, Kelly De Jesus [facility] 1.84.114 350.1.13.10 4.2.7.2.686 [id number] [facility] 2023-03-26 15:30:00 2023-03-26 16:01:32 Office Visit Kelly Reynaga [facility] 1.114 350.1.13.10 4.2.7.2.686 [id number] [facility] 2023-03-26 16:00:00 2023-03-26 16:00:00 Outpatient R KELLY REYNAGA [facility] [id number] [facility] 2023-02-23 10:00:00 2023-02-23 10:00:00 Nurse Visit Nurse, [facility] Ilene Mahansol [facility] 1.84.114 350.1.13.10 4.2.7.2.686 [id number] [facility] 2023-02-23 10:00:00 2023-02-23 09:45:09 Outpatient R RADHA MAHANL BAL SIELNESUPRIYA [facility] [id number] [facility] 2023-02-06 15:13:36 2023-02-06 23:59:00 Outpatient R NICKY PECK [facility] [id number] [facility] 2023-02-06 15:00:00 2023-02-06 23:59:00 Hospital Encounter Nicky Peck [facility] 1.114 350.1.13.10 4.2.7.2.686 [id number] [facility] 2023-02-06 00:00:00 2023-02-06 00:00:00 Patient Secure Msg Doctor Unassigned, [place] [facility] 1.2.840.114 350.1.13.10 4.2.7.2.686 [id number] [facility] 2023-02-05 00:00:00 2023-02-05 00:00:00 Telephone Kelly [facility] 1.2.840.114 350.1.13.10 4.2.7.2.686 [id number] [facility] 2023-02-02 00:00:00 2023-02-02 00:00:00 Telephone Nicky Peck [facility] 1.2.840.114 350.1.13.10 4.2.7.2.686 [id number] [facility] 2023-02-01 00:00:00 2023-02-01 00:00:00 Telephone Nick[facility] Peck [facility] 1.2.840.114 350.1.13.10 4.2.7.2.686 [id number] [facility] 2023-01-26 00:00:00 2023-01-26 00:00:00 Refill Kelly Reynaga [facility] 1.2.840.114 350.1.13.10 4.2.7.2.686 [id number] [facility] 2023-01-24 00:00:00 2023-01-24 00:00:00 [facility] 1.2.840.114 350.1.13.10 4.2.7.2.686 [id number] [facility] 2023-01-07 14:00:00 2023-01-07 14:34:41 Outpatient R JUHI KELLY [facility] [id number] [facility] 2023-01-07 14:00:00 2023-01-07 14:15:00 Closing Machine Operator Visit Lab, River JohnsonKelly herron [facility] 1.2840.114 350.1.13.10 4.2.7.2.686 [id number] [facility] 2023-01-02 00:00:00 2023-01-02 00:00:00 Telephone Cisco Nicky A [facility] 1.840.114 350.1.13.10 4.2.7.2.686 [id number] [facility] 2022-12-24 14:30:00 2022-12-24 14:45:00 Closing Machine Operator Visit Lab, River Peck Nicky Montano [facility] 1.840.114 350.1.13.10 4.2.7.2.686 [id number] [facility] 2022-12-24 13:00:00 2022-12-24 13:43:30 Outpatient R INCKY PCEK [facility] [id number] [facility] 2022-12-24 13:00:00 2022-12-24 13:43:30 Office Visit Nicky Peck Dusty [facility] 1.84.114 350.1.13.10 4.2.7.2.686 [id number] [facility] 2022-12-24 00:00:00 2022-12-24 00:00:00 Refill CiscoNicky navarro [facility] 1.840.114 350.1.13.10 4.2.7.2.686 [id number] [facility] 2022-12-16 00:00:00 2022-12-16 00:00:00 Refill Nicky Peck [facility] 1.2.840.114 350.1.13.10 4.2.7.2.686 [id number] [facility] 2022-11-18 08:30:00 2022-11-18 09:00:00 Office Visit Yojana-[place] s Supriya [facility] 1..840.114 350.1.13.10 4.2.7.2.686 [id number] [facility] 2022-11-18 08:30:00 2022-11-18 08:30:00 Outpatient R FINN-[place] S, SUPRIYA [facility] [facility], SUPRIYA [facility] [id number] [facility] 2022-11-13 00:00:00 2022-11-13 00:00:00 Telephone Nicky Peck [facility] 1.2.840.114 350.1.13.10 4.2.7.2.686 [id number] [id number] [facility] 2022-11-12 15:30:00 2022-11-12 15:48:52 Outpatient R NICKY PECK [facility] [id number] [facility] 2022-11-12 15:30:00 2022-11-12 15:48:52 Office Visit Nicky Peck [facility] 1.2.840.114 350.1.13.10 4.2.7.2.686 [id number] [facility] 2022-11-12 15:15:00 2022-11-12 15:30:00 Closing Machine Operator Visit Lab, Ang - Db Nicky Peck [facility] 1.2.840.114 350.1.13.10 4.2.7.2.686 [id number] [facility] 2022-11-12 00:00:00 2022-11-12 00:00:00 Orders Only Doctor Unassigned, [place] [facility] 1.2.840.114 350.1.13.10 4.2.7.2.686 [id number] [facility] 2022-10-07 00:00:00 2022-10-07 00:00:00 Orders Only Doctor Unassigned, [place] [facility] 1.2.840.114 350.1.13.10 4.2.7.2.686 [id number] [facility] 2022-10-03 00:00:00 2022-10-03 00:00:00 Nurse Triage Emily Kaminski [facility] 1.2.840.114 350.1.13.10 4.2.7.2.686 [id number] [facility] 2022-10-02 00:00:00 2022-10-02 00:00:00 Refill [facility] 1.2.840.114 350.1.13.10 4.2.7.2.686 [id number] [facility] 2022-09-18 00:00:00 2022-09-18 00:00:00 [facility] 1.2.840.114 350.1.13.10 4.2.7.2.686 [id number] [facility] 2022-09-08 15:00:00 2022-09-08 15:35:57 Outpatient R KELLY REYNAGA [facility] [id number] [facility] 2022-09-08 15:00:00 2022-09-08 15:35:57 [facility] 1.284.114 350.1.13.10 4.2.7.2.686 [id number] [facility] 2022-09-08 00:00:00 2022-09-08 00:00:00 Telephone [facility] 1.2840.114 350.1.13.10 4.2.7.2.686 [id number] [facility] 2022-08-21 00:00:00 2022-08-21 00:00:00 Orders Only Doctor Unassigned, [place] [facility] 1.2840.114 350.1.13.10 4.2.7.2.686 [id number] [facility] 2022-08-20 00:00:00 2022-08-20 00:00:00 Telephone [facility] 1.840.114 350.1.13.10 4.2.7.2.686 [id number] [facility] 2022-08-18 00:00:00 2022-08-18 00:00:00 Telephone Nishant Chapman [facility] 1.2840.114 350.1.13.10 4.2.7.2.686 [id number] [facility] 2022-08-12 10:30:00 2022-08-12 11:17:30 Outpatient R [facility] [id number] [facility] 2022-08-12 10:30:00 2022-08-12 11:17:30 Nurse Visit Nurse, [facility] 1.2840.114 350.1.13.10 4.2.7.2.686 [id number] [facility] 2022-08-08 09:30:00 2022-08-08 10:00:00 [facility] 1.2840.114 350.1.13.10 4.2.7.2.686 [id number] [facility] 2022-08-08 09:30:00 2022-08-08 09:30:00 [facility] [id number] [facility] 2022-08-01 00:00:00 2022-08-01 00:00:00 Orders Only Doctor Unassigned, [place] [facility] 1.840.114 350.1.13.10 4.2.7.2.686 [id number] [facility] 2022-07-30 00:00:00 2022-07-30 00:00:00 [facility]phone [facility] [place] 1.0.114 350.1.13.10 4.2.7.2.686 [id number] [facility] 2022-07-01 00:00:00 2022-07-01 00:00:00 Telephone [facility] [place] 1.20.114 350.1.13.10 4.2.7.2.686 [id number] [facility] 2022-06-27 16:30:00 2022-06-27 16:45:00 Closing Machine Operator Visit Lab, [place] Callahan [facility]ie [facility] [place] 1.2840.114 350.1.13.10 4.2.7.2.686 [id number] [facility] 2022-06-27 16:00:00 2022-06-27 16:37:43 Outpatient R KELLY [facility] [id number] [facility] 2022-06-27 16:00:00 2022-06-27 16:37:43 [facility] 1..840.114 350.1.13.10 4.2.7.2.686 [id number] [facility] 2022-06-17 09:32:15 2022-06-17 23:59:00 Outpatient R MARQUISE [facility]LEY [facility] [id number] [facility] 2022-06-17 09:32:15 2022-06-17 23:59:00 Hospital Encounter Marquise [facility] 1..840.114 350.1.13.10 4.2.7.2.686 [id number] [facility] 2022-06-12 11:30:00 2022-06-12 11:45:00 Closing Machine Operator Visit Aparna, Facundo Lab Main Marquise [facility] 1..840.114 350.1.13.10 4.2.7.2.686 [id number] [facility] 2022-06-12 11:30:00 2022-06-12 11:30:00 Outpatient R MARQUISE [facility] [id number] [facility] 2022-05-19 09:30:00 2022-05-19 09:50:10 Outpatient R NISHANT [facility] [id number] [facility] 2022-05-19 09:30:00 2022-05-19 09:50:10 Office Visit Nishant Chapman [facility] BUILDING 1..840.114 350.1.13.10 4.2.7.2.686 [id number] [facility] 2022-05-19 00:00:00 2022-05-19 00:00:00 Orders Only Doctor Unassigned, [place] [facility] 1.2840.114 350.1.13.10 4.2.7.2.686 [id number] [facility] 2022-05-09 09:30:00 2022-05-09 09:30:00 Outpatient R JUHI KELLY [facility] [id number] [facility] 2022-05-09 00:00:00 2022-05-09 00:00:00 Telephone Stephenie [facility] 1.2.840.114 350.1.13.10 4.2.7.2.686 [id number] [facility] 2022-05-05 13:30:00 2022-05-05 14:52:24 Outpatient R NISHANT [facility]APMAN [facility] [id number] [facility] 2022-05-05 13:30:00 2022-05-05 14:52:24 Office Visit Nishant Chapman [facility] BUILDING 1.2.840.114 350.1.13.10 4.2.7.2.686 [id number] [facility] 2022-05-05 00:00:00 2022-05-05 00:00:00 Orders Only Doctor Unassigned, [place] [facility] 1.2840.114 350.1.13.10 4.2.7.2.686 [id number] [facility] 2022-04-17 10:30:00 2022-04-17 11:26:08 Outpatient R NISHANT [facility] [id number] [facility] 2022-04-17 10:30:00 2022-04-17 11:26:08 Office [facility] 1.2.840.114 350.1.13.10 4.2.7.2.686 [id number] [facility] 2022-04-15 10:00:00 2022-04-15 10:00:00 Outpatient R NISHANT [facility] [id number] [facility] 2022-04-11 15:00:00 2022-04-11 15:29:48 Outpatient R KELLY [facility] [id number] [facility] 2022-04-11 15:00:00 2022-04-11 15:29:48 [facility] 1.2.840.114 350.1.13.10 4.2.7.2.686 [id number] [facility] 2022-04-08 10:30:00 2022-04-08 10:30:00 Outpatient R [facility]LLY [facility] [id number] [facility] 2022-03-18 00:00:00 2022-03-18 00:00:00 Outpatient FOG_Patel_R Kassi AO AO [id number] [facility] 2022-03-05 00:00:00 2022-03-05 00:00:00 Outpatient FOG_Patel_R bruna_ AO AO [id number] [facility] 2022-03-05 00:00:00 2022-03-05 00:00:00 Nithin Leung MD: [id number] [facility] [address], [place] [address] , Ph. [phone] [facility] [place] [id number] [facility] 2022-03-03 00:00:00 2022-03-03 00:00:00 Outpatient FOG_Patel_R onak_MD [facility] [id number] [facility] 2022-03-01 00:00:00 2022-03-01 00:00:00 Outpatient FOG_Patel_R Kassi [facility] [id number] [facility] 2022-02-27 14:00:00 2022-02-27 14:00:00 Outpatient CARMEN ALDRICH [facility] [id number] [facility] 2022-02-26 00:00:00 2022-02-26 00:00:00 Outpatient FOG_Patel_R Kassi [facility] [id number] [facility] 2022-02-21 11:30:00 2022-02-21 11:45:00 Closing Machine Operator Visit Facundo Braun Lab [facility] 1.2.840.114 350.1.13.10 4.2.7.2.686 [id number] [facility] 2022-02-21 11:30:00 2022-02-21 11:30:00 Outpatient CEM JAQUEZ [facility] [id number] [facility] 2022-02-19 17:00:00 2022-02-19 17:15:00 Closing Machine Operator Visit Facundo Braun [facility] 1.2.840.114 350.1.13.10 4.2.7.2.686 [id number] [facility] 2022-02-19 17:00:00 2022-02-19 17:00:00 Outpatient CEM JAQUEZ [facility] [id number] [facility] 2022-02-08 00:00:00 2022-02-08 00:00:00 Patient Secure Msg Doctor Unassigned, [place] [facility] ..840.114 350.1.13.10 4.2.7.2.686 [id number] [facility] 2022-02-07 14:30:00 2022-02-07 16:23:18 Office [facility] 1.2840.114 350.1.13.10 4.2.7.2.686 [id number] [facility] 2022-02-07 14:30:00 2022-02-07 16:23:18 Outpatient R KELLY [facility] [id number] [facility] 2022-02-07 14:30:00 2022-02-07 14:30:00 Outpatient R KELLY RYENAGA [facility] [id number] [facility] 2022-02-04 00:00:00 2022-02-04 00:00:00 [facility] 1.84.114 350.1.13.10 4.2.7.2.686 [id number] [facility] 2022-02-04 00:00:00 2022-02-04 00:00:00 Orders Only Doctor Unassigned, [place] [facility] 1..114 350.1.13.10 4.2.7.2.686 [id number] [facility] 2022-02-03 00:00:00 2022-02-03 00:00:00 Telephone [facility] 1.84.114 350.1.13.10 4.2.7.2.686 [id number] [id number] [facility] 2022-01-31 00:00:00 2022-01-31 00:00:00 Telephone [facility] 1..114 350.1.13.10 4.2.7.2.686 [id number] [facility] 2022-01-24 00:00:00 2022-01-24 00:00:00 Telephone Sathya [facility]Blue [facility] HospitalMARY [facility] 1.2.840.114 350.1.13.10 4.2.7.2.686 [id number] 044 [id number] [facility] 2022-01-22 00:00:00 2022-01-22 00:00:00 Patient Secure Msg Mirtha Bowman [facility] [place] 1.2840.114 350.1.13.10 4.2.7.2.686 [id number] [facility] 2022-01-22 00:00:00 2022-01-22 00:00:00 Patient Secure Msg Mirtha Bowman [facility] 1.2.840.114 350.1.13.10 4.2.7.2.686 [id number] [facility] 2022-01-22 00:00:00 2022-01-22 00:00:00 Patient Secure g [facility]ie [facility] [place] 1.2.840.114 350.1.13.10 4.2.7.2.686 [id number] [facility] 2022-01-20 00:00:00 2022-01-20 00:00:00 Refill Juhi Formerly [facility] [place]?[facility] BUILD[facility] 1.2840.114 350.1.13.10 4.2.7.2.686 [id number] [facility] 2022-01-17 14:15:00 2022-01-17 23:59:00 [facility] [id number] 2022-01-17 14:15:00 2022-01-17 14:15:00 Outpatient R KELLY [facility] [id number] [facility] 2022-01-17 14:00:00 2022-01-17 14:15:00 Closing Machine Operator Visit Lab, Ang - Db Stephenie ReynagaFormerly [facility] OFF[facility]ILD[facility] 1.2840.114 350.1.13.10 4.2.7.2.686 [id number] [facility] 2022-01-17 13:30:00 2022-01-17 14:10:08 Office Visit Stephenie ReynagaFormerly [facility] OFF[facility] 1..840.114 350.1.13.10 4.2.7.2.686 [id number] 044 [id number] [facility] 2022-01-17 13:30:00 2022-01-17 13:30:00 Outpatient R KELLY [facility] [id number] [facility] 2021-12-25 00:00:00 2021-12-25 00:00:00 Orders Only Doctor Unassigned, [place] [facility] 1.840.114 350.1.13.10 4.2.7.2.686 [id number] [facility] 2021-12-24 17:15:00 2021-12-24 17:30:00 Closing Machine Operator Visit Pob, Adc Lab Main [facility] 1.840.114 350.1.13.10 4.2.7.2.686 [id number] [facility] 2021-12-24 17:15:00 2021-12-24 17:15:00 Outpatient R KELLY [facility] [id number] [facility] 2021-12-24 16:30:00 2021-12-24 17:02:50 Outpatient R KELLY [facility] [id number] [facility] 2021-12-24 16:30:00 2021-12-24 17:02:50 Office Visit [facility] 1.2.840.114 350.1.13.10 4.2.7.2.686 [id number] [facility] 2021-12-24 00:00:00 2021-12-24 00:00:00 Telephone Sathya [facility]agaBlue [facility] HospitalMARY [facility] 1.2.840.114 350.1.13.10 4.2.7.2.686 [id number] [facility] 2021-12-24 00:00:00 2021-12-24 00:00:00 Telephone Stephenie [facility] [place] 1.2.840.114 350.1.13.10 4.2.7.2.686 [id number] 044 [id number] [facility] 2021-12-10 00:00:00 2021-12-10 00:00:00 Case Management Anne Martin 1.2.840.114 350.1.13.10 4.2.7.2.686 [id number] [facility] 2021-12-06 14:00:00 2021-12-06 14:00:00 Outpatient R [facility]LLY [facility] [id number] [facility] 2021-11-29 08:00:00 2021-11-29 08:00:00 Outpatient R KELLY [facility] [id number] [facility] 2021-11-18 14:00:00 2021-11-18 14:00:00 Outpatient R ELIZABETHGERMAINE KELLY [facility] [id number] [facility] 2021-11-16 00:00:00 2021-11-16 00:00:00 Telephone Stephenie ReynagaFormerly [facility] 1.2.840.114 350.1.13.10 4.2.7.2.686 [id number] [id number] [facility] 2021-11-14 14:00:00 2021-11-14 14:00:00 Outpatient Esdras [facility] [id number] [facility] 2021-11-05 14:15:00 2021-11-05 15:07:08 Office Visit Jerrell Nj Trammellekta [facility] 1.2.840.114 350.1.13.10 4.2.7.2.686 [id number] [facility] 2021-11-05 14:15:00 2021-11-05 15:07:08 Outpatient NJ PETERSEN [facility] [id number] [facility] 2021-11-05 14:15:00 2021-11-05 14:15:00 Outpatient Esdras [facility] [id number] [facility] 2021-11-05 00:00:00 2021-11-05 00:00:00 Orders Only Doctor Unassigned, [place] [facility] 1.2.840.114 350.1.13.10 4.2.7.2.686 [id number] [facility] 2021-10-28 14:00:00 2021-10-28 14:00:00 Outpatient Esdras [facility] [id number] [facility] 2021-10-23 22:47:00 2021-10-24 01:33:00 Emergency X [facility] [id number] [facility] 2021-10-23 22:47:00 2021-10-24 01:33:00 Emergency Malachi Duran [facility] 1.2840.114 350.1.13.10 4.2.7.2.686 [id number] [facility] 2021-10-15 13:30:00 2021-10-15 14:20:44 Out[facility] [id number] [facility] 2021-10-15 13:30:00 2021-10-15 14:20:44 Office Visit Stephenie ReynagaFormerly [facility] 1.840.114 350.1.13.10 4.2.7.2.686 [id number] [facility] 2021-10-15 13:30:00 2021-10-15 14:20:44 Outpatient R [facility] [id number] [facility] 2021-10-14 16:45:00 2021-10-14 18:51:00 Emergency X JONAS, K [facility] [id number] [facility] 2021-10-14 16:45:00 2021-10-14 18:51:00 Emergency Burke Posey Fatuma [facility] 1.2840.114 350.1.13.10 4.2.7.2.686 [id number] [facility] 2021-10-14 16:45:00 2021-10-14 18:51:00 Emergency X JONAS, K [facility] [id number] [facility] 2021-10-08 00:00:00 2021-10-08 00:00:00 Telephone Stephenie ReynagaFormerly [facility] 1.2.840.114 350.1.13.10 4.2.7.2.686 [id number] [facility] 2021-10-01 11:30:00 2021-10-01 11:30:00 Outpatient R [facility]LLY [facility] [id number] [facility] 2021-09-16 08:30:00 2021-09-16 08:30:00 Outpatient R KELLY [facility] [id number] [facility] 2021-09-16 08:30:00 2021-09-16 08:30:00 Outpatient R KELLY [facility]NGAA [facility] [id number] [facility] 2021-09-13 09:18:02 2021-09-13 23:59:00 Outpatient R MARLEY CAMARILLO [facility] [id number] [facility] 2021-09-13 09:18:02 2021-09-13 23:59:00 Hospital Encounter Marley [place] Genna [facility] ..840.114 350.1.13.10 4.2.7.2.686 [id number] [facility] 2021-09-13 00:00:00 2021-09-13 00:00:00 Orders Only Doctor Unassigned, [place] [facility] 1..840.114 350.1.13.10 4.2.7.2.686 [id number] [facility] 2021-09-03 00:00:00 2021-09-03 00:00:00 Patient Secure Msg Doctor Unassigned, [place] [facility] 1..840.114 350.1.13.10 4.2.7.2.686 [id number] [facility] 2021-09-02 14:30:00 2021-09-02 14:30:00 Outpatient Esdras [facility] [id number] [facility] 2021-08-30 12:00:00 2021-08-30 12:15:00 Closing Machine Operator Visit Lab, Ang - Db Anene, [facility] 1.2.840.114 350.1.13.10 4.2.7.2.686 [id number] [facility] 2021-08-30 12:00:00 2021-08-30 12:00:00 Outpatient R [facility]LLY [facility] [id number] [facility] 2021-08-30 12:00:00 2021-08-30 12:00:00 Closing Machine Operator Visit Lab, [place] Callahan [facility]ie [facility]Life[facility] [place] 1.2.840.114 350.1.13.10 4.2.7.2.686 [id number] [facility] 2021-08-30 11:30:00 2021-08-30 11:34:07 [facility] 1..840.114 350.1.13.10 4.2.7.2.686 [id number] [facility] 2021-08-30 11:30:00 2021-08-30 11:34:07 Outpatient Esdras REYNAGASTEPHENIEKELLY [facility] [id number] [facility] 2021-08-08 10:30:00 2021-08-08 10:30:00 Outpatient KELLY ZAYAS [facility] [id number] [facility] 2021-08-08 00:00:00 2021-08-08 00:00:00 Orders Only Doctor Unassigned, [place] [facility] 1..840.114 350.1.13.10 4.2.7.2.686 [id number] [facility] 2021-08-07 13:30:00 2021-08-07 13:30:00 Outpatient KELLY ZAYAS [facility] [id number] [facility] 2021-07-30 00:00:00 2021-07-30 00:00:00 Patient Secure Msg Doctor Unassigned, [place] [facility] 1.2.840.114 350.1.13.10 4.2.7.2.686 [id number] [facility] 2021-07-27 00:00:00 2021-07-27 00:00:00 Nurse Triage Susan Aguilera [facility] 1.2840.114 350.1.13.10 4.2.7.2.686 [id number] [facility] 2021-07-01 00:00:00 2021-07-01 00:00:00 Telephone Provider, River Callahan [facility] 1.2.840.114 350.1.13.10 4.2.7.2.686 [id number] [facility] 2021-06-28 16:40:00 2021-06-28 17:00:00 Urgent Care Viola Spivey Amanda [facility] 1.2.840.114 350.1.13.10 4.2.7.2.686 [id number] [facility] 2021-06-28 16:40:00 2021-06-28 16:40:00 Outpatient R VIOLA SPIVEY [facility] [id number] [facility] 2021-06-28 00:00:00 2021-06-28 00:00:00 Patient Secure Msg Sathya Reynagaa [facility] 1.2.840.114 350.1.13.10 4.2.7.2.686 [id number] [facility] 2021-06-26 09:30:00 2021-06-26 09:45:00 Closing Machine Operator Visit Aparna, Facundo Lab Main Cem Portillo [facility] BUILD[facility] 1.2.840.114 350.1.13.10 4.2.7.2.686 [id number] [facility] 2021-06-26 09:30:00 2021-06-26 09:30:00 Outpatient CEM JAQUEZ [facility] [id number] [facility] 2021-06-26 00:00:00 2021-06-26 00:00:00 Orders Only Doctor Unassigned, [place] [facility] 1.840.114 350.1.13.10 4.2.7.2.686 [id number] [facility] 2021-06-20 00:00:00 2021-06-20 00:00:00 Telephone Stephenie ReynagaFormerly [facility] 1..840.114 350.1.13.10 4.2.7.2.686 [id number] [facility] 2021-06-14 10:15:00 2021-06-14 10:30:00 Laboratory Only Only, Ang Db Test Rony [facility] BUILD[facility] 1.2.840.114 350.1.13.10 4.2.7.2.686 [id number] [facility] 2021-06-14 10:15:00 2021-06-14 10:15:00 Outpatient R CELINA URIBE [facility] [id number] [facility] 2021-05-30 00:00:00 2021-05-30 00:00:00 Patient Secure [facility] 1.2.840.114 350.1.13.10 4.2.7.2.686 [id number] [facility] 2021-05-29 00:00:00 2021-05-29 00:00:00 Outpatient R KELLY [facility] [id number] [facility] 2021-05-29 00:00:00 2021-05-29 00:00:00 Outpatient R KELLY [facility] [id number] [facility] 2021-05-23 14:30:00 2021-05-23 14:45:00 Closing Machine Operator Visit Lab, River JohnsonStephenie herronFormerly [facility] 1..840.114 350.1.13.10 4.2.7.2.686 [id number] [facility] 2021-05-23 14:30:00 2021-05-23 14:30:00 Outpatient R KELLY [facility] [id number] [facility] 2021-05-23 13:30:00 2021-05-23 14:24:35 Outpatient R KELLY [facility] [id number] [facility] 2021-05-23 13:30:00 2021-05-23 14:24:35 Office Visit Stephenie ReynagaFormerly [facility] OFF[facility] BUILD[facility] 1..840.114 350.1.13.10 4.2.7.2.686 [id number] [facility] 2021-05-23 13:30:00 2021-05-23 14:24:35 Outpatient R KELLY [facility] [id number] [facility] 2021-05-10 09:20:00 2021-05-10 09:43:39 Outpatient R CISCONICKY NAVARRO [facility] [id number] [facility] 2021-05-10 09:16:09 2021-05-10 09:26:09 Imm/Inj Visit Vaccine, River Db Cbc Fam Unknown, Attending [facility] 1..840.114 350.1.13.10 4.2.7.2.686 [id number] [facility] 2021-05-10 09:20:00 2021-05-10 09:20:00 Outpatient R TICO ANDRADE [facility] [id number] [facility] 2021-05-09 00:00:00 2021-05-09 00:00:00 [facility] 1..840.114 350.1.13.10 4.2.7.2.686 [id number] [facility] 2021-05-07 13:36:55 2021-05-07 13:56:55 [facility] 1..840.114 350.1.13.10 4.2.7.2.686 [id number] [facility] 2021-05-07 13:20:00 2021-05-07 13:20:00 Outpatient R CELINA [facility] [id number] [facility] 2021-05-07 00:00:00 2021-05-07 00:00:00 [facility]phone [facility] 1..840.114 350.1.13.10 4.2.7.2.686 [id number] [facility] 2021-04-22 12:15:00 2021-04-22 12:15:00 Outpatient R KELLY [facility] [id number] [facility] 2021-04-22 11:24:12 2021-04-22 11:39:12 Closing Machine Operator Visit Lab, [facility]ie De JesusCritical access hospitalE?[facility] 1..840.114 350.1.13.10 4.2.7.2.686 [id number] [facility] 2021-04-22 10:30:30 2021-04-22 11:22:34 [facility] 1.2.840.114 350.1.13.10 4.2.7.2.686 [id number] [facility] 2021-04-22 10:30:00 2021-04-22 11:22:34 Outpatient R KELLY [facility]NA[facility] [id number] [facility] 2021-04-16 10:30:00 2021-04-16 10:30:00 [id number] 2021-04-15 00:00:00 2021-04-15 00:00:00 [facility] 1.2.840.114 350.1.13.10 4.2.7.2.686 [id number] [facility] 2021-04-15 00:00:00 2021-04-15 00:00:00 [facility] [place] [facility] 1.2.840.114 350.1.13.10 4.2.7.2.686 [id number] [facility] 2021-03-27 13:32:13 2021-03-27 13:52:13 Urgent Care [facility] Building 1.2.840.114 350.1.13.10 4.2.7.2.686 [id number] [facility] 2021-03-27 13:30:00 2021-03-27 13:30:00 Outpatient R RONY CELINA [facility] [id number] [facility] 2021-03-18 13:00:00 2021-03-18 13:00:00 Outpatient R SIVAKUMAR [facility] [id number] [facility] 2021-02-07 17:08:23 2021-02-07 17:28:23 Urgent Care Viola Spivey [facility] 1.114 350.1.13.10 4.2.7.2.686 [id number] [facility] 2021-02-07 17:00:00 2021-02-07 17:00:00 Outpatient R CELINA URIBE [facility] [id number] [facility] 2021-02-04 00:00:00 2021-02-04 00:00:00 Nurse Triage [facility] 1.0.114 350.1.13.10 4.2.7.2.686 [id number] [facility] 2021-02-04 00:00:00 2021-02-04 00:00:00 Nurse Triage [facility] 1.0.114 350.1.13.10 4.2.7.2.686 [id number] [facility] 2021-01-17 18:01:55 2021-01-17 18:21:55 [facility] 1.114 350.1.13.10 4.2.7.2.686 [id number] [facility] 2021-01-17 18:00:00 2021-01-17 18:00:00 Outpatient R VIOLA SPIVEY [facility] [id number] [facility] 2021-01-10 17:55:42 2021-01-10 18:45:04 Urgent Care Marco Antonio Diana Tolentinolatoniagenna [facility] Office Building One 1.114 350.1.13.10 4.2.7.2.686 [id number] [facility] 2021-01-10 17:40:00 2021-01-10 17:40:00 Outpatient R VIOLA SPIVEY [facility] [id number] [facility] 2020-11-15 19:00:00 2020-11-15 19:00:00 Outpatient R [facility] [id number] [facility] 2020-10-26 09:45:00 2020-10-26 23:59:00 Hospital Encounter Kelly Reynaga [facility] 1.2.840.114 350.1.13.10 4.2.7.2.686 [id number] 2020-10-26 09:45:00 2020-10-26 23:59:00 Hospital Encounter Kelly Reynaga [facility] 1.2.840.114 350.1.13.10 4.2.7.2.686 [id number] [facility] 2020-10-26 08:47:17 2020-10-26 09:07:17 Urgent Care Provider, [facility] Office Building One 1.2.840.114 350.1.13.10 4.2.7.2.686 [id number] 2020-10-26 08:47:17 2020-10-26 09:07:17 Urgent Care Provider, [facility] 1.2840.114 350.1.13.10 4.2.7.2.686 [id number] [facility] 2020-10-26 09:00:00 2020-10-26 09:00:00 Outpatient R KELLY REYNAGA [facility] [id number] [facility] 2020-10-26 00:00:00 2020-10-26 00:00:00 Telephone Provider, [facility] Office Building One 1.2.840.114 350.1.13.10 4.2.7.2.686 [id number] 2020-10-26 00:00:00 2020-10-26 00:00:00 Orders Only Doctor Unassigned, [place] [facility] 1.2.840.114 350.1.13.10 4.2.7.2.686 [id number] 2020-10-26 00:00:00 2020-10-26 00:00:00 Orders Only Doctor Unassigned, [place] [facility] 1.2.840.114 350.1.13.10 4.2.7.2.686 [id number] [facility] 2020-10-26 00:00:00 2020-10-26 00:00:00 Telephone Provider, [facility] Urgent [facility] Office [facility] 1.2.840.114 350.1.13.10 4.2.7.2.686 [id number] [facility] 2020-10-17 00:00:00 2020-10-17 00:00:00 Telephone Provider, [facility] Urgent [facility] Office [facility] One 1.2.840.114 350.1.13.10 4.2.7.2.686 [id number] 2020-10-17 00:00:00 2020-10-17 00:00:00 Telephone Provider, [facility] Urgent Care [facility] Office Building One 1.2.840.114 350.1.13.10 4.2.7.2.686 [id number] [facility] 2020-10-16 09:22:16 2020-10-16 10:22:39 Urgent Care Provider, [facility] Office Building One 1.2.840.114 350.1.13.10 4.2.7.2.686 [id number] 2020-10-16 09:22:16 2020-10-16 10:22:39 Urgent Care Provider, [facility] Urgent Care Kelly Reynaga [facility] Office [facility] 1.2.840.114 350.1.13.10 4.2.7.2.686 [id number] [facility] 2020-10-16 09:00:00 2020-10-16 09:00:00 Outpatient KELLY ZAYAS [facility] [id number] [facility] 2020-09-19 16:10:00 2020-09-19 08:56:31 Outpatient STEVE CHAVEZ [facility] [id number] [facility] 2020-08-29 16:10:00 2020-08-29 15:31:49 Outpatient STEVE CHAVEZ [facility] [id number] [facility] Results Test Description Test Time Test Comments Results Result Co mments Source [facility] W Specific [id number] 22:57:00* Test Item Value Reference Range Interpretation Comme nts POCT U SP GRAV (test code = 3255) 1.005 mg/dl 1.005-1.025 POCT PH U (test code = 3254) 8 mg/dl 5-8 POCT U LEUK EST (test code = 3263) negative Negative - Negative POCT U NIT (test code = 3262) negative Negative - Negati ve POCT U PROT (test code = 3259) negative Negative - Negative POCT U GLU (test code = 3256) negative Negative - Negati ve POCT U KETONE (test code = 3258) negative Negative - Negative POCT U UROBILI (test code = 3260) 0.2 mg/dl 0.2-1 POCT U BILI (test code = 3261) negative Negative - Negative POCT U BLD (test code = 3257) trace Negative - Negati ve POCT U COLOR (test code = 3266) POCT U APPEAR (test code = 3267) Lab Interpretation (test cod e = 43258-1) Abnormal [facility] [id number] 22:56:00* Test Item Value Reference Range Interpretation Comme nts POCT PREG (test code = 1605) Negative On board controls acceptable with C Line (test code = 3574) Yes POCT PREG LOT # (test code = 3575) POCT PREG TEST DATE ( test code = 3576) Lab Interpretation (test cod e = 90770-1) [id number]:56:00* Test Item Value Reference Range Interpretation Comme nts POCT PREG (test code = 1605) Negative On board controls acceptable with C Line (test code = 3574) Yes POCT PREG LOT # (test code = 3575) POCT PREG TEST DATE ( test code = 3576) Lab Interpretation (test cod e = 22619-2) [facility], [id number] 01:22:28* Test Item Value Reference Range Interpretation Comme nts VIT B12 (test code = 2934496009) 260 pg/mL 240-930 MIKE (test code = MIKE) Biotin has been reported to cause a positive bias, interpret results relative to patient's use of biotin. Lab Interpretation (test code = 85017-5) [facility]12, [id number] 01:22:28* Test Item Value Reference Range Interpretation Comme nts VIT B12 (test code = 7683840201) 260 pg/mL 240-930 MIKE (test code = MIKE) Biotin has been reported to cause a positive bias, interpret results relative to patient's use of biotin. Lab Interpretation (test code = 87932-4) [facility] [id number] 00:06:36 * Test Item Value Reference Range Interpretation Comme nts TSH (test code = 5350824510) 1.50 See_Comment [Automated messa ge] The system which generated this result transmitted reference range: 0.45 - 4.70 mIU/L. The reference range was not used to interpret this result as normal/abnormal. Lab Interpretation (test code = 27022-5) [facility] [id number] 00:06:36 * Test Item Value Reference Range Interpretation Comme nts TSH (test code = 8290236886) 1.50 See_Comment [Automated messa ge] The system which generated this result transmitted reference range: 0.45 - 4.70 mIU/L. The reference range was not used to interpret this result as normal/abnormal. Lab Interpretation (test code = 32411-6) Normal [facility] METABOLIC PANEL (77525)2023-05-15 23:37:48* Test Item Value Reference Range Interpretation Comme nts NA (test code = 8480851804) 142 mmol/L 135-145 K (test code = 7367070277) 3.9 mmol/L 3.5-5.0 CL (test code = 1859088123) 105 mmol/L 98-108 CO2 TOTAL (test code = 6277926452) 26 mmol/L 23-31 AGAP (test code = 7574972367) 11 2-16 BUN (test code = 5485844836) 6 mg/dL 7-23 L GLUCOSE (test code = 1289397237) 109 mg/dL 70-110 CREATININE (test code = 9024903389) 0.67 mg/dL 0.50-1.04 TOTAL BILI (test code = 7299547293) 0.5 mg/dL 0.1-1.1 CALCIUM (test code = 1077456215) 9.3 mg/dL 8.6-10.6 T PROTEIN (test code = 7441816057) 7.3 g/dL 6.3-8.2 ALBUMIN (test code = 4189383606) 3.9 g/dL 3.5-5.0 ALK PHOS (test code = 2009628174) 210 U/L 34-122 H ALTv (test code = 1742-6) 30 U/L 5-35 AST(SGOT) (test code = 2315792421) 19 U/L 13-40 eGFR (test code = 41160-6) 121.5 mL/min/1.73m2 CKD-EPI eGFR (2020). Assuming creatinine has been stable day-to-day for at least three months, the eGFR indicates Category G1 (>= 90 mL/min/1.73 m2) Lab Interpretation (test code = 22229-0) Abnormal [facility]2023-[facility]-08 23:37:48* Test Item Value Reference Range Interpretation Comme nts MAGNESIUM (test code = 0453787831) 2.0 mg/dL 1.7-2.4 Lab Interpretation (test cod e = 67236-6) Normal [facility] (26376)2023-05-15 23:37:48* Test Item Value Reference Range Interpretation Comme nts NA (test code = 9976901916) 142 mmol/L 135-145 K (test code = 8283135425) 3.9 mmol/L 3.5-5.0 CL (test code = 4939264105) 105 mmol/L 98-108 CO2 TOTAL (test code = 8774090924) 26 mmol/L 23-31 AGAP (test code = 3775588348) 11 2-16 BUN (test code = 1016283074) 6 mg/dL 7-23 L GLUCOSE (test code = 1772247550) 109 mg/dL 70-110 CREATININE (test code = 3819071761) 0.67 mg/dL 0.50-1.04 TOTAL BILI (test code = 1887109243) 0.5 mg/dL 0.1-1.1 CALCIUM (test code = 3966606934) 9.3 mg/dL 8.6-10.6 T PROTEIN (test code = 1517566743) 7.3 g/dL 6.3-8.2 ALBUMIN (test code = 6091588882) 3.9 g/dL 3.5-5.0 ALK PHOS (test code = 4142356490) 210 U/L 34-122 H ALTv (test code = 1742-6) 30 U/L 5-35 AST(SGOT) (test code = 7627809830) 19 U/L 13-40 eGFR (test code = 20300-0) 121.5 mL/min/1.73m2 CKD-EPI eGFR (2020). Assuming creatinine has been stable day-to-day for at least three months, the eGFR indicates Category G1 (>= 90 mL/min/1.73 m2) Lab Interpretation (test code = 81405-1) Abnormal [facility]2023-12-08 23:37:48* Test Item Value Reference Range Interpretation Comme nts MAGNESIUM (test code = 5376269160) 2.0 mg/dL 1.7-2.4 Lab Interpretation (test cod e = 30195-4) Normal [facility] WITH [id number] 23:13:22* Test Item Value Reference Range Interpretation Comme nts WBC (test code = 6690-2) 12.29 See_Comment H [Automated messa ge] The system which generated this result transmitted reference range: 4.30 - 11.10 10*3/?L. The reference range was not used to interpret this result as normal/abnormal. RBC (test code = 789-8) 4.58 See_Comment [Automated messa ge] The system which generated this result transmitted reference range: 3.93 - 5.25 10*6/?L. The reference range was not used to interpret this result as normal/abnormal. HGB (test code = 718-7) 13.8 g/dL 11.6-15.0 HCT (test code = 4544-3) 41.5 % 35.7-45.2 MCV (test code = 787-2) 90.6 fL 80.6-95.5 MCH (test code = 785-6) 30.1 pg 25.9-32.8 MCHC (test code = 786-4) 33.3 g/dL 31.6-35.1 RDW-SD (test code = 37266-1) 42.5 fL 39.0-49.9 RDW-CV (test code = 788-0) 12.9 % 12.0-15.5 PLT (test code = 777-3) 364 See_Comment H [Automated messa ge] The system which generated this result transmitted reference range: 166 - 358 10*3/?L. The reference range was not used to interpret this result as normal/abnormal. MPV (test code = 76418-9) 10.7 fL 9.5-12.9 NRBC/100 WBC (test code = 8328061447) 0.0 See_Comment [Automated me ssage] The system which generated this result transmitted reference range: 0.0 - 10.0 /100 WBCs. The reference range was not used to interpret this result as normal/abnormal. NRBC x10^3 (test code = 1091808052) See_Comment [Automated messa ge] The system which generated this result transmitted reference range: 10*3/?L. The reference range was not used to interpret this result as normal/abnormal. GRAN MAT (NEUT) % (test code = 770-8) 76.9 % IMM GRAN % (test code = 5467722619) 0.20 % LYMPH % (test code = 736-9) 17.2 % MONO % (test code = 5905-5) 4.5 % EOS % (test code = 713-8) 0.7 % BASO % (test code = 706-2) 0.5 % GRAN MAT x10^3(ANC) (test code = 5317858700) 9.46 10*3/uL 1.88-7.09 H IMM GRAN x10^3 (test code = 7215733091) 0.03 10*3/uL 0.00-0.06 LYMPH x10^3 (test code = 731-0) 2.11 10*3/uL 1.32-3.29 MONO x10^3 (test code = 742-7) 0.55 10*3/uL 0.33-0.92 EOS x10^3 (test code = 711-2) 0.08 10*3/uL 0.03-0.39 BASO x10^3 (test code = 704-7) 0.06 10*3/uL 0.01-0.07 Lab Interpretation (test code = 11251-0) Abnormal [facility] WITH [id number] 23:13:22* Test Item Value Reference Range Interpretation Comme nts WBC (test code = 6690-2) 12.29 See_Comment H [Automated messa ge] The system which generated this result transmitted reference range: 4.30 - 11.10 10*3/?L. The reference range was not used to interpret this result as normal/abnormal. RBC (test code = 789-8) 4.58 See_Comment [Automated messa ge] The system which generated this result transmitted reference range: 3.93 - 5.25 10*6/?L. The reference range was not used to interpret this result as normal/abnormal. HGB (test code = 718-7) 13.8 g/dL 11.6-15.0 HCT (test code = 4544-3) 41.5 % 35.7-45.2 MCV (test code = 787-2) 90.6 fL 80.6-95.5 MCH (test code = 785-6) 30.1 pg 25.9-32.8 MCHC (test code = 786-4) 33.3 g/dL 31.6-35.1 RDW-SD (test code = 68827-8) 42.5 fL 39.0-49.9 RDW-CV (test code = 788-0) 12.9 % 12.0-15.5 PLT (test code = 777-3) 364 See_Comment H [Automated messa ge] The system which generated this result transmitted reference range: 166 - 358 10*3/?L. The reference range was not used to interpret this result as normal/abnormal. MPV (test code = 13483-8) 10.7 fL 9.5-12.9 NRBC/100 WBC (test code = 0545637730) 0.0 See_Comment [Automated me ssage] The system which generated this result transmitted reference range: 0.0 - 10.0 /100 WBCs. The reference range was not used to interpret this result as normal/abnormal. NRBC x10^3 (test code = 7729731650) See_Comment [Automated messa ge] The system which generated this result transmitted reference range: 10*3/?L. The reference range was not used to interpret this result as normal/abnormal. GRAN MAT (NEUT) % (test code = 770-8) 76.9 % IMM GRAN % (test code = 9171439841) 0.20 % LYMPH % (test code = 736-9) 17.2 % MONO % (test code = 5905-5) 4.5 % EOS % (test code = 713-8) 0.7 % BASO % (test code = 706-2) 0.5 % GRAN MAT x10^3(ANC) (test code = 8647060985) 9.46 10*3/uL 1.88-7.09 H IMM GRAN x10^3 (test code = 2608541283) 0.03 10*3/uL 0.00-0.06 LYMPH x10^3 (test code = 731-0) 2.11 10*3/uL 1.32-3.29 MONO x10^3 (test code = 742-7) 0.55 10*3/uL 0.33-0.92 EOS x10^3 (test code = 711-2) 0.08 10*3/uL 0.03-0.39 BASO x10^3 (test code = 704-7) 0.06 10*3/uL 0.01-0.07 Lab Interpretation (test code = 67324-5) Abnormal [facility] [id number] 21:00:00* Test Item Value Reference Range Interpretation Comme nts POCT PREG (test code = 1605) Negative On board controls acceptable with C Line (test code = 3574) Yes POCT PREG LOT # (test code = 3575) POCT PREG TEST DATE ( test code = 3576) [facility] [id number] 21:00:00* Test Item Value Reference Range Interpretation Comme nts POCT PREG (test code = 1605) Negative On board controls acceptable with C Line (test code = 3574) Yes POCT PREG LOT # (test code = 3575) POCT PREG TEST DATE ( test code = 3576) [facility]-TELOPEPT[facility], [id number] 18:48:52* Test Item Value Reference Range Interpretation Comme nts NTX SERUM (test code = 97963-4) 12.3 nM BCE INTERPRETIVE INF ORMATION: N-Telopeptide, Cross-Linked, Serum ?Adult Male.......................5.4 - 24.2 nM BCE ?Premenopausal Adult Female.......6.2 - 19.0 nM BCE The target value for treated post-menopausal adult females is the same as the premenopausal reference interval. BCE = Bone Collagen EquivalentPerformed By: [employer] [place] [id number] Director: Jc Albarran MD, PhDCLIA Number: [id number] [facility]wood[facility]-TELOPEPTIDE, [id number] 18:48:52* Test Item Value Reference Range Interpretation Comme nts NTX SERUM (test code = 97597-8) 12.3 nM BCE INTERPRETIVE INF ORMATION: N-Telopeptide, Cross-Linked, Serum ?Adult Male.......................5.4 - 24.2 nM BCE ?Premenopausal Adult Female.......6.2 - 19.0 nM BCE The target value for treated post-menopausal adult females is the same as the premenopausal reference interval. BCE = Bone Collagen EquivalentPerformed By: [employer] [place] [id number] Director: Jc Albarran MD, PhDCLIA Number: [id number] [facility]woodINTACT PTH CALCIUM [id number] 20:29:31* Test Item Value Reference Range Interpretation Comme nts PTH-INTACT (test code = 5833488540) 34.9 pg/mL 12.0-88.0 PTH-CA Interpretation (test code = 8768733519) PTH IS Appropria te for Calcium CALCIUM (test code = 9496063175) 9.8 mg/dL 8.6-10.6 [facility]wood[facility] P[facility] CALCIUM [id number] 20:29:31* Test Item Value Reference Range Interpretation Comme nts PTH-INTACT (test code = 2538553971) 34.9 pg/mL 12.0-88.0 PTH-CA Interpretation (test code = 3787582155) PTH IS [employer]rop[employer] te for Calcium CALCIUM (test code = 7004838955) 9.8 mg/dL 8.6-10.6 [facility]wood[facility] D, [id number] 07:21:15* Test Item Value Reference Range Interpretation Comme nts VIT D 25OH (test code = 08375-7) 14 ng/mL 25-80 L MIKE (test code = MIKE) Deficiency: <20 ng/mLInsufficiency: 20-24 ng/mLOptimal: 25-80 ng/mL Lab Interpretation (test code = 14184-0) Abnormal [facility]wood[facility] D, [id number] 07:21:15* Test Item Value Reference Range Interpretation Comme nts VIT D 25OH (test code = 51039-9) 14 ng/mL 25-80 L MIKE (test code = MIKE) Deficiency: <20 ng/mLInsufficiency: 20-24 ng/mLOptimal: 25-80 ng/mL Lab Interpretation (test code = 73931-4) Abnormal [facility] D, [id number] 07:21:15* Test Item Value Reference Range Interpretation Comme nts VIT D 25OH (test code = 54216-3) 14 ng/mL 25-80 L MIKE (test code = MIKE) Deficiency: <20 ng/mLInsufficiency: 20-24 ng/mLOptimal: 25-80 ng/mL Lab Interpretation (test code = 93789-7) Abnormal [facility] D, [id number] 07:21:15* Test Item Value Reference Range Interpretation Comme nts VIT D 25OH (test code = 64309-1) 14 ng/mL 25-80 L MIKE (test code = MIKE) Deficiency: <20 ng/mLInsufficiency: 20-24 ng/mLOptimal: 25-80 ng/mL Lab Interpretation (test code = 36891-2) Abnormal [facility]woodALKALINE PHOSPHATASE, [id number] 06:51:12 * Test Item Value Reference Range Interpretation Comme nts ALK PHOS (test code = 0926679437) 224 U/L 34-122 H Lab Interpretation (test cod e = 41035-9) Abnormal [facility] KingwoodALKALINE PHOSPHATASE, [id number] 06:51:12 * Test Item Value Reference Range Interpretation Comme nts ALK PHOS (test code = 9302163689) 224 U/L 34-122 H Lab Interpretation (test cod e = 36925-5) Abnormal [facility]woodALKALINE PHOSPHATASE, [id number] 06:51:12 * Test Item Value Reference Range Interpretation Comme nts ALK PHOS (test code = 8330337012) 224 U/L 34-122 H Lab Interpretation (test cod e = 09491-8) Abnormal [facility]woodALKALINE PHOSPHATASE, [id number] 06:51:12 * Test Item Value Reference Range Interpretation Comme nts ALK PHOS (test code = 1112388362) 224 U/L 34-122 H Lab Interpretation (test cod e = 70176-1) Abnormal [facility]woodPO[facility] [id number] 18:43:00* Test Item Value Reference Range Interpretation Comme nts POCT PREG (test code = 1605) Negative On board controls acceptable with C Line (test code = 3574) Yes POCT PREG LOT # (test code = 3575) POCT PREG TEST DATE ( test code = 3576) Lab Interpretation (test cod e = 78413-5) Normal [facility] [id number] 18:43:00* Test Item Value Reference Range Interpretation Comme nts POCT PREG (test code = 1605) Negative On board controls acceptable with C Line (test code = 3574) Yes POCT PREG LOT # (test code = 3575) POCT PREG TEST DATE ( test code = 3576) Lab Interpretation (test cod e = 20078-8) Normal [facility] URINALYSIS W SPECIFIC [id number] 18:36:00* Test Item Value Reference Range Interpretation Comme nts POCT U SP GRAV (test code = 3255) 1.015 mg/dl 1.005-1.025 POCT PH U (test code = 3254) 5 mg/dl 5-8 POCT U LEUK EST (test code = 3263) ++ Negative - Negative POCT U NIT (test code = 3262) NEG Negative - Negati ve POCT U PROT (test code = 3259) TRACE Negative - Negative POCT U GLU (test code = 3256) NORMAL Negative - Negati ve POCT U KETONE (test code = 3258) NEG Negative - Negative POCT U UROBILI (test code = 3260) NORMAL 0.2-1 POCT U BILI (test code = 3261) NEG Negative - Negative POCT U BLD (test code = 3257) TRACE Negative - Negati ve POCT U COLOR (test code = 3266) DARK YELLOW POCT U APPEAR (test code = 3267) CLOUDY [facility] URINALYSIS W SPECIFIC [id number] 18:36:00* Test Item Value Reference Range Interpretation Comme nts POCT U SP GRAV (test code = 3255) 1.015 mg/dl 1.005-1.025 POCT PH U (test code = 3254) 5 mg/dl 5-8 POCT U LEUK EST (test code = 3263) ++ Negative - Negative POCT U NIT (test code = 3262) NEG Negative - Negati ve POCT U PROT (test code = 3259) TRACE Negative - Negative POCT U GLU (test code = 3256) NORMAL Negative - Negati ve POCT U KETONE (test code = 3258) NEG Negative - Negative POCT U UROBILI (test code = 3260) NORMAL 0.2-1 POCT U BILI (test code = 3261) NEG Negative - Negative POCT U BLD (test code = 3257) TRACE Negative - Negati ve POCT U COLOR (test code = 3266) DARK YELLOW POCT U APPEAR (test code = 3267) CLOUDY [facility] [id number] 13:52:00* Test Item Value Reference Range Interpretation Comme nts POCT PREG (test code = 1605) Negative On board controls acceptable with C Line (test code = 3574) Yes POCT PREG LOT # (test code = 3575) POCT PREG TEST DATE ( test code = 3576) [facility] [id number] 13:52:00* Test Item Value Reference Range Interpretation Comme nts POCT PREG (test code = 1605) Negative On board controls acceptable with C Line (test code = 3574) Yes POCT PREG LOT # (test code = 3575) POCT PREG TEST DATE ( test code = 3576) [facility] [id number] 15:52:00* Test Item Value Reference Range Interpretation Comme nts POCT PREG (test code = 1605) Negative On board controls acceptable with C Line (test code = 3574) Yes POCT PREG LOT # (test code = 3575) POCT PREG TEST DATE ( test code = 3576) [facility] [id number] 15:52:00* Test Item Value Reference Range Interpretation Comme nts POCT PREG (test code = 1605) Negative On board controls acceptable with C Line (test code = 3574) Yes POCT PREG LOT # (test code = 3575) POCT PREG TEST DATE ( test code = 3576) [facility] [id number] 20:30:00* Test Item Value Reference Range Interpretation Comme nts POCT PREG (test code = 1605) Negative On board controls acceptable with C Line (test code = 3574) Yes POCT PREG LOT # (test code = 3575) POCT PREG TEST DATE ( test code = 3576) [facility] [id number] 20:30:00* Test Item Value Reference Range Interpretation Comme nts POCT PREG (test code = 1605) Negative On board controls acceptable with C Line (test code = 3574) Yes POCT PREG LOT # (test code = 3575) POCT PREG TEST DATE ( test code = 3576) [facility] [id number] 16:46:00* Test Item Value Reference Range Interpretation Comme nts POCT PREG (test code = 1605) Negative On board controls acceptable with C Line (test code = 3574) Yes POCT PREG LOT # (test code = 3575) POCT PREG TEST DATE ( test code = 3576) [facility] [id number] 16:46:00* Test Item Value Reference Range Interpretation Comme nts POCT PREG (test code = 1605) Negative On board controls acceptable with C Line (test code = 3574) Yes POCT PREG LOT # (test code = 3575) POCT PREG TEST DATE ( test code = 3576) [facility] WITH DOXS7521-75-12 22:18:20* Test Item Value Reference Range Interpretation Comme nts WBC (test code = 6690-2) See_Comment H [Automated messa ge] The system which generated this result transmitted reference range: 4.30 - 11.10 10*3/?L. The reference range was not used to interpret this result as normal/abnormal. RBC (test code = 789-8) See_Comment [Automated messa ge] The system which generated this result transmitted reference range: 3.93 - 5.25 10*6/?L. The reference range was not used to interpret this result as normal/abnormal. HGB (test code = 718-7) 11.8 g/dL 11.6-15 HCT (test code = 4544-3) 38.5 % 35.7-45.2 MCV (test code = 787-2) 81.7 fL 80.6-95.5 MCH (test code = 785-6) 25.1 pg 25.9-32.8 L MCHC (test code = 786-4) 30.6 g/dL 31.6-35.1 L RDW-SD (test code = 80408-7) 44.1 fL 39-49.9 RDW-CV (test code = 788-0) 14.9 % 12-15.5 PLT (test code = 777-3) See_Comment H [Automated messa ge] The system which generated this result transmitted reference range: 166 - 358 10*3/?L. The reference range was not used to interpret this result as normal/abnormal. MPV (test code = 88147-4) 9.3 fL 9.5-12.9 L NRBC/100 WBC (test code = 6307436525) See_Comment [Automated [employer] ssage] The system which generated this result transmitted reference range: 0.0 - 10.0 /100 WBCs. The reference range was not used to interpret this result as normal/abnormal. NRBC x10^3 (test code = 9351374974) See_Comment [Automated messa ge] The system which generated this result transmitted reference range: 10*3/?L. The reference range was not used to interpret this result as normal/abnormal. GRAN MAT (NEUT) % (test code = 770-8) 74.6 % IMM GRAN % (test code = 6934253586) 0.50 % LYMPH % (test code = 736-9) 18.8 % MONO % (test code = 5905-5) 4.9 % EOS % (test code = 713-8) 0.7 % BASO % (test code = 706-2) 0.5 % GRAN MAT x10^3(ANC) (test code = 8961664688) 9.22 10*3/uL 1.88-7.09 H IMM GRAN x10^3 (test code = 9363118798) 0.06 10*3/uL 0-0.06 LYMPH x10^3 (test code = 731-0) 2.33 10*3/uL 1.32-3.29 MONO x10^3 (test code = 742-7) 0.61 10*3/uL 0.33-0.92 EOS x10^3 (test code = 711-2) 0.09 10*3/uL 0.03-0.39 BASO x10^3 (test code = 704-7) 0.06 10*3/uL 0.01-0.07 Lab Interpretation (test code = 26465-5) [facility]normal [facility] I3s6378-55-77 06:32:55* Test Item Value Reference Range Interpretation Comme nts HEMOGLOBIN A1c (test code = 61417) 7.0 % 4.2-5.6 H [employer] GUIDELINES FOR HGB A1C: PREDIABETES/INCREASED RISK . . . . . . . 5.7-6.4% DIAGNOSIS OF DIABETES . . . . . . . . . >=6.5% WITH CONFIRMATION OR APPROPRIATE SYMPTOMS NOTE: ASSAY MAY BE AFFECTED BY HEMOGLOBINOPATHIES (SICKLE CELL ANEMIA, S-C DISEASE, OTHERS) OR ARTIFICIALLY LOWERED BY DECREASED RED CELL SURVIVAL (HEMOLYTIC ANEMIAS, BLOOD LOSS, ETC.). CONSIDER ALTERNATE TESTING OR LABORATORY CONSULTATION. UNLESS OTHERWISE INDICATED, ALL TESTING PERFORMED [facility] [employer] [address] [place] [address] PEST CONTROL PILOT: WILLY RAMOS M.D. [place] NUMBER [id number] [facility] [place]. [id number] Notes Date/Time Note Provider Source 2023-07-15 08:33:15 uhYrPZseuaRbj1pQ5QBpQlJQCwLV+v61C7I F+bc1b8/RI29gIjy4dJI66kENqhkF1625-6 08:33:15 LOS-04/21/23NOV-07/23/23Cal led pharmacy and spoke with pharmacy staff. They state pt has no refills. Vitamin D last checked 04/21/23. Ok to refill ergocalciferol, vitamin d2, 1,250 mcg (50,000 unit) capsule. Please send if appropriate. [place] [address]-4Tgbibrdmd encounter VtvbIR4085-36-32R05:06:03Telephone encounter NoteTXT1.2.840.654408.1.13.104.2.7. 2.486079|[id number] for patient tzge92002-9FzrtLPBRCHDLGSJCisroouum C-CDA narrative textUT26 Woods [id number] 9BIPLAXRXLVXLANVRRBDEUQ1386-84-54A3 9:06:031.2.840.048377.1.72.3.15|1.2 .840.864910.1.13.104.2.7.2.727879_2 [id number] [facility] 2023-07-15 08:29:47 unUWAH3cpUgR6bBhhaBbSSS/bUloUmmFN6e gwVzr2v9q6hWMbjG5jdekhjOqHZRM3907-8 08:29:47 Rosanne Resendiz is a 27 year old femalePatient is calling in regards to the ergocalciferol, vitamin d2, 1,250 mcg (50,000 unit) capsule , mentions refill was denied due for being to soon. Pt has contacted pharmacy and their is no additional refills on file, but will try to reach out again. 48952-9Dwnxwmxir encounter FqwsYJ0895-31-16U52:31:45Telephone encounter NoteTXT1.2.840.569073.1.13.104.2.7. 2.715006|4625303317PYXrisobmeg for patient nssl79007-7SupvPSSUDYCTFRZOilqrfowq C-CDA narrative lfzg42481983GqzqbnaBaylee Huston[address] [id number] 9PRMOKVVYAFMYKOTVVMVLLP8254-92-74E0 8:31:451.2.840.551030.1.72.3.15|1.2 .840.325161.1.13.104.2.7.2.727879_2 [id number] Baylee Ahmadi [facility] 2023-07-13 08:32:33 6kRa0i5W6DBkCXFNQyVpATrBERAFPwarfWU 9ERdIs3JfuBa1qoxRlGnXmmSh7rr90731-4 08:32:33 Images from the original note were not included. 72177-3Tnfncybte encounter DkrhXO7420-85-39E01:33:50Telephone encounter NoteTXT1.2.840.218717.1.13.104.2.7. 2.117814|3759138337TEMuvzisbtg for patient bbsc30900-6JekwAUNATRSNEJORiezmfdba C-CDA narrative qfpz630946201Xrqtvsgtp S Turner[address] YkltEzxmftjwmGljswmytvQQBX485096874 6ACAEPMAOOOWAZWGYVXDLAC0535-46-71D9 8:33:501.2.840.152662.1.72.3.15|1.2 .840.574200.1.13.104.2.7.2.727879_2 [id number] Nelly Fisher [facility] 2023-07-10 19:47:08 rrHHx0CwOjTk8xhzlH2rT44+IEJdUBi/mjL mVJcST/Il6FdQxz8kydzIGZ27qIht2957-5 9:47:08 Rosanne Resendiz is a 27 year old femalePatient is calling to request a refill on RX ergocalciferol, vitamin d2, 1,250 mcg (50,000 unit) [facility] pharmacy needs a new script - please be advisedMARY [id number] [place] [address] Uszzqthgaiyytk signed by Brea Melendrez at 07/10/2023 7:48 PM CYB90554-2Owfrcocnx encounter OeklJD5404-99-96L55:48:41Telephone encounter NoteTXT1.2.840.022083.1.13.104.2.7. 2.946938|3532113245NERaibdoqha for patient fiep88727-0EugfVZZJGUPSRDAFsitthvkc C-CDA narrative text[address] MscqXzuyztfexTouctqdhhCOOV125575525 2IFDHVCZHFIOKRIOHRIRUBU7806-66-83L0 9:48:411.2.840.995854.1.72.3.15|1.2 .840.597943.1.13.104.2.7.2.727879_2 [id number] [facility] 2023-06-25 10:36:10 nkQr09CC6RvaLieDdmlS9CllBGSFF6Mpicg Tk2psKbvOJs+3OhkcHxpjVMkrLhJ+06-25T10:36:10 Last Refilled:Disp Refills Start End DAWsemaglutide (OZEMPIC) 1 mg/dose (4 mg/3 mL) PnIj 3 Pen 1 05/22/2023 -- --Sig: inject 1 mg under the skin weekly.Sent to pharmacy as: Ozempic 1 mg/dose (4 mg/3 mL) subcutaneous pen injector (semaglutide)Class: eRXRoute: SubcutaneousOrder: [id number]/Time Signed: 05/22/2023 11:51Notes:Recent VisitsDate Type Provider Dept06/17/23 Office Visit Nicky Peck PA [facility]05/15/23 Office Visit Nicky Peck PA [facility]03/26/23 Office Visit Kelly Reynaga FNP [facility]12/24/22 Office Visit Nicky Peck PA [facility]11/12/22 Office Visit Nicky Peck PA [facility]09/08/22 Office Visit Kelly Reynaga, INFORMATION DEVELOPER [facility]08/08/22 Office Visit Kelly Reynaga, INFORMATION DEVELOPER [facility]06/27/22 Office Visit Kelly Reynaga, INFORMATION DEVELOPER [facility]04/11/22 Office Visit Kelly Reynaga, INFORMATION DEVELOPER [facility]02/07/22 Office Visit Kelly Reynaga, INFORMATION DEVELOPER [facility] MedShowing recent visits within past 540 days with a meds authorizing provider and meeting all other requirementsFuture AppointmentsNo visits were found meeting these conditions.Showing future appointments within next 150 days with a meds authorizing provider and meeting all other requirements 62394-1Scnlbjxsb encounter EfquXU0527-72-40U23:36:40Telephone encounter NoteTXT1.2.840.819360.1.13.104.2.7. 2.904786|3284841820MVXadsaneio for patient xfit25021-7TngqWHABMIEDMRWTprgrzarb C-CDA narrative dwrd120286569Tnvxb J Bunte RN[address] PgmtKkfgfwlucYbatkcivkGLYG046059931 6ZWJDVJBVTIYQWALPRNCPIO6156-00-07W2 0:36:401.2.840.844489.1.72.3.15|1.2 .840.660976.1.13.104.2.7.2.727879_2 [id number] Lara Simmons RN [facility] 2023-06-17 17:00:00 DAJirAG9t+BAgUetIo3fcA1qwgBfdQug+Hg zGjc4rrWqGFbiCb4FGbU8Ybt+vOJ10647-8 06-17T17:00:00 Images from the original note were not included.Patient has been identified by name and was provided with cup, antiseptic towelette, and clean catch instructions. 1 urine specimen(s) sent.UnpreservedUrine Culture 1Aptima tubeOther urine 83422-0Vmcuo JlkiQT9513-64-92V00:33:35Nurse NoteTXT1.2.840.128230.1.13.104.2.7. 2.167661|9306370929KVOtgnyqjxp for patient mgyt72042-5Bdmue NoteLNNARRATIVEFormatted C-CDA narrative OnAir3G[id number] 8CUUHBIDOMUCZWUZIXZQBAJ3304-37-74S6 7:33:351.2.840.770689.1.72.3.15|1.2 .840.414540.1.13.104.2.7.2.727879_1 [id number] [facility] 2023-06-17 09:19:49 fOenvOk94ds5fAh5HfOC5UVkCizH4mdFgpu KO8HFscAHP3YpMOsaySuuMBm/+RA64129-9 09:19:49 Patient has appointment today 06/17/23. Will address in clinic.Mirtha Bowman LVN 06/17/2023 9:20 AM 65765-8Nswluggmq encounter ImuzQV6967-72-80E17:20:15Telephone encounter NoteTXT1.2.840.539461.1.13.104.2.7. 2.492433|1157345962ISMxwpgfjlx for patient udys09582-6PsvzEHIWFTNUYOSIihszxcbv C-CDA narrative [id number] 2AABOSOIIWHEDOJLQHTJVLY9832-30-79Z8 9:20:151.2.840.211500.1.72.3.15|1.2 .840.794765.1.13.104.2.7.2.727879_1 [id number] [facility] 2023-06-12 16:57:47 bzrTSaj+CWtj0CjYcWjJjoFif6hSLbKZ6Eo 73d+y3C7CrWCL9W2iFuxrz5G3dsNj5167-8 6:57:47 Rosanne Resendiz is a 27 year old female is returning a call she missed from the clinic in regards to EKG results. Please advise. [phone] signed by Daniel Broussard at 06/12/2023 4:59 PM NAS86848-8Plmlrdaff encounter HvqeVZ0346-03-89Q41:59:54Telephone encounter NoteTXT1.2.840.583523.1.13.104.2.7. 2.900422|2794315067BUZhsilnpib for patient pkwt32280-4ZamzDEKUPGACCKOJbeqeqfzi C-CDA narrative qqbq521368325Nmgbpp D Donih[address] KnfuCgknodgkiLpyoykraxRAFO327173819 4MOOBZRMSSXOGWJTFDNCPBZ6429-18-71V9 6:59:541.2.840.944858.1.72.3.15|1.2 .840.392172.1.13.104.2.7.2.727879_1 [id number] Daniel Holleyvj [facility] 2023-06-12 16:53:14 aj77gYQ4lm1r4ZoouSfAR35IDL90HviX/j1 /vt9NVTMSavma6Mdw8r6V6U+NwYUA6904-1 6:53:14 Attempted to reach patient , no answer left V/M 47203-2Ealpcucxf encounter AxyqDC6601-04-97K45:54:05Telephone encounter NoteTXT1.2.840.479945.1.13.104.2.7. 2.632605|2173348916NIBsihnwvnv for patient ejbh82136-8NlaeCYOZYVFWLPVVgqtmppjm C-CDA narrative tdbb527003144Obrkbzo R Leon [address]TXTX[address] 5ZCCVCATOKVDQSRXNRHKUGF7343-97-40Q0 6:54:051.2.840.871743.1.72.3.15|1.2 .840.421281.1.13.104.2.7.2.727879_1 [id number] Sendy Ho MA [facility] 2023-06-12 16:50:02 Ip/ndOajsD0pckeNR2ewskJLmM9U6Ne+sSD mT6858NZqXEkfSnCZZLOsWmlG4M+q2243-6 6:50:02 Looks like she was checked in 06/10/23 at the hospital for the EKG No results in chart 24430-2Omweetajg encounter AarlJD4051-89-03P79:52:19Telephone encounter NoteTXT1.2.840.504958.1.13.104.2.7. 2.888912|7792188712XVMkihbxkwk for patient exdl67180-5YgpoKREQHHLIFLRYovhopvfe C-CDA narrative text[address]TXTX[address] 2AMEAHJGDVJPGIKTZFMFVIW8904-64-22T5 6:52:191.2.840.718838.1.72.3.15|1.2 .840.958173.1.13.104.2.7.2.727879_1 [id number] [facility] 2023-06-12 13:14:56 vpTAFOVsWCT0proQZhJGciv0uTvN7j0IRCn rcHB2k+MLz76eOaXLUhOjDuuamq6A6606-1 3:14:56 I do not see EKG results either. Perhaps she completed with an external provider? 19866-5Atpsqukro encounter CtnoXJ5401-43-08F13:15:13Telephone encounter NoteTXT1.2.840.156085.1.13.104.2.7. 2.700632|6844391149SPRkkhftzlx for patient fxcm70497-9TagjXGPEUQIPCUHTedciaumg C-CDA narrative textPA-PHYSICIAN PRINTING ENGINEER MIDLEVEL PROVIDERPA-PHYSICIAN PRINTING ENGINEER MIDLEVEL PROVIDER[address] KrniSxugoifxiAxparfzzeHCGK143112112 9GXXBLTYVOPQEARGMBKNHFV7277-60-01A8 3:15:131.2.840.116663.1.72.3.15|1.2 .840.483762.1.13.104.2.7.2.727879_1 [id number] PA-PHYSICIAN PRINTING ENGINEER MIDLEVEL PROVIDER [facility] 2023-06-12 12:33:32 g4l89uZOqG1eK0wvcgHWIDlF/2MS7DdZR4Z jXjS85Dgqo0dxHnBoGK9Y0rijqL6p1356-7 2:33:32 Please review and advise. Did not see any EKG results in chart. 67250-0Jvdafbgmi encounter FgdiCX0236-95-88J20:33:54Telephone encounter NoteTXT1.2.840.905068.1.13.104.2.7. 2.958880|9661386042EOAryobnkaq for patient lbpp72010-1FgybLUUKZXDRETCPsrnkvypf C-CDA narrative onts451745553Tvqflo [place] [address]TXTX[address] 1GSSYVQWUGASBHEVHGHKQPY8011-61-44K2 2:33:541.2.840.294044.1.72.3.15|1.2 .840.765912.1.13.104.2.7.2.727879_1 [id number] Katie Elizabeth [facility] 2023-06-11 16:29:14 0ElObfO5qlbQzhqNkFo/UqVZPb/3u8EnCai kCq9qO7watpPdQL8TfNW/Tywaef4b4633-7 6:29:14 Rosanne Resendiz is a 27 year old female patient is requesting a call from the clinic in regards to EKG results. Please advise. [phone] signed by Daniel Broussard at 06/11/2023 4:30 PM HNR16745-6Sdizddskh encounter LrcnGE0693-32-33S62:30:43Telephone encounter NoteTXT1.2.840.013487.1.13.104.2.7. 2.021548|9873373390UWTggmkijzw for patient lkcv96557-9McvaDCODCLUIQPSPhteaqyzn C-CDA narrative pgum488811962Aekxlx D Donihoo[address]TXTX[address] 4GHDFSXUMVVIBCMVBCFWHLO4571-83-73Z0 6:30:431.2.840.443725.1.72.3.15|1.2 .840.287954.1.13.104.2.7.2.727879_1 [id number] Daniel Broussard [facility] 2023-02-10 08:57:57 MpBK31xvQkdRNWxMJBcdwH6RxgRxg5Rmzdx RA6SEDHWgcIVJzXl9xVduUP0UU17Q3947-0 08:57:57 Labs re-printed and faxed to [phone] signed by Mirtha Bowman LVN at 02/10/2023 8:58 AM YZC36063-5Ddwspznbw encounter SsqbMB3789-35-88P01:58:21Telephone encounter NoteTXT1.2.840.747582.1.13.104.2.7. 2.436949|0956676198UCAuaueamjc for patient xxoo47397-2JrlmOCDTYVPULJ[address]vdGalvestonGalvestonTXTX[address] 7KOIRLFOFGSWVVHGMMQAKIQ0601-81-61C0 8:58:211.2.840.512430.1.72.3.15|1.2 .840.201346.1.13.104.2.7.2.727879_1 [id number] [facility] 2023-02-05 09:42:45 a2qlAydubwIcksmoKVKDyHKmD5DfZV8+QXo eSnq3XDFd4eq/fSnPdweAsSMwvYKb7357-9 09:42:45 [facility], requesting lab results re faxed , she she stated it got deleted by mistake. . [phone] signed by Kiesha Katz at 02/05/2023 9:44 AM DYM73494-8Xuvdyijwo encounter SdmuVJ5721-63-69I18:44:28Telephone encounter NoteTXT1.2.840.314167.1.13.104.2.7. 2.324731|9739704701XEQdnyygqak for patient hlga90636-0RfbmGW055691855Xubl A [address]TX[address] 2RVYBZKZAWBWVCBPLKYFYRI4989-78-41I0 9:44:281.2.840.185566.1.72.3.15|1.2 .840.170948.1.13.104.2.7.2.727879_1 [id number] [facility] 14:35:27 uOnHCEgPkqyhNHb8YeVIjR8AcXkO5Gb7Rtg ucHW8xShycRPJUX0c8eqCrkwjN4Ym7352-2 4:35:27 3rd attempt to reach patent. Closing encounter. Mirtha Bowman LVN 02/04/2023 2:35 PM 95018-1Jzfhajgew encounter SnmaHT0301-68-17I39:35:44Telephone encounter NoteTXT1.2.840.553185.1.13.104.2.7. 2.893912|2629235499GWXeofjkwto for patient vyhs17556-4VvzaFHUMDDZMNV[address]TXTX[address] 2MDBZHUBBVWXYGQNHLCOVXG1778-89-44B8 4:35:441.2.840.883496.1.72.3.15|1.2 .840.466524.1.13.104.2.7.2.727879_1 [id number] [facility] 2023-02-03 16:04:46 O9QZXtsHb6pSyCpihJBJTWqvedJ8Ur4Q7MR DqrmOzoT+iXZ4JS0OeFqJ8DOSQ0TQ3052-2 6:04:46 Attempted to contact patient. No answer. Left message to call back. 00220-7Mplwcnjez encounter TidjLM7506-95-51Y28:04:57Telephone encounter NoteTXT1.2.840.075462.1.13.104.2.7. 2.732680|3685686921SGXlijsitft for patient qjjw62258-8HrvgNEDWMTPUEB[address]vdGalvestonGalvestonTXTX[address] 4MXZHTKDWSSWWXUATHXBTCQ6056-93-66H4 6:04:571.2.840.787513.1.72.3.15|1.2 .840.005687.1.13.104.2.7.2.727879_1 [id number] [facility] 2023-02-03 14:57:21 OBVteGNlQ2AD8fOcNa8owe66ac2gEbNV5cw qGZeQCXZ7e3+NrFmecCRxSp4dH0Cr8366-5 4:57:21 Patient is requesting a call back regarding results. 61404-7Ncvnavhdg encounter FfcbWL9135-42-17L95:57:52Telephone encounter NoteTXT1.2.840.007418.1.13.104.2.7. 2.778312|8312271074BKDimonveeq for patient zbep07150-6QaruDO90314432Wryis S Hernandez[address] StreetCvpdJsrhgtrysWaegbvycrVZMT117807490 4TVGQLSITNDSZPMLCHBPVQM2942-71-90P8 4:57:521.2.840.962522.1.72.3.15|1.2 .840.699725.1.13.104.2.7.2.727879_1 [id number] Diane Ga [facility] 2023-02-02 17:03:43 pWWTf+46gBMkrBSzOhx2pI+SBoXZPds96RQ ass50hRMf5rxDNsW0qsm5aJ2BbKz+02-02T17:03:43 Rosanne Resendiz is a 27 year old femalePatient is returning a missed call in regards to lab results.Please [phone] (home) 92051-6Jqpnrddvg encounter BamhCV5455-38-40D91:05:33Telephone encounter NoteTXT1.2.840.411426.1.13.104.2.7. 2.606145|1700731465JAYdgtnoaak for patient xbpo53193-1TlboKV861638385Odyp A Grisel[address] UbilYuqhcaznnQiupzxclvQFCZ550554224 4VIHDHOLVOBVWSYMWGDNFJW8048-21-52F9 7:05:331.2.840.734381.1.72.3.15|1.2 .840.477766.1.13.104.2.7.2.727879_1 [id number] Brenda Montano Ezequiel [facility] 2023-02-02 14:24:53 bnUgFPIgndza08MJ+QeIKg736jTxJHgYdRP sniRH6pjyLiz+kZ10AKvLY84mXTz84853-2 02-02T14:24:53 Attempted to contact patient. No answer. Left message to call back.Mirtha Bowman LVN 02/02/2023 2:25 PM 88232-8Phkfrhngt encounter VogvJP5748-33-87I35:25:06Telephone encounter NoteTXT1.2.840.946357.1.13.104.2.7. 2.527524|6291680161YRNjuzeelrr for patient djua98694-9YwswLDNHQWLYMV[address]TXTX[address] 3LADRRSOUEFZIVJENHAKBEB6884-03-18Q0 4:25:061.2.840.739089.1.72.3.15|1.2 .840.697964.1.13.104.2.7.2.727879_1 [id number] [facility] 2023-02-02 13:14:29 LU64NIrdgeCySePuvNkyeTQ+VoPqKdoRrHx kxznJMlqCQCJtKBSAXDSXQOboM/av1916-9 3:14:29 Patient would like a nurse to call her regarding her lab results. 59771-2Fekvzgbff encounter PionBE7236-70-32I28:15:30Telephone encounter NoteTXT1.2.840.576249.1.13.104.2.7. 2.105445|2994269572DZCfkhjgpky for patient ofmn98552-6ZoswKK589918469Zjnst K [address]TXTX[address] 3PFVBRXSNMIPNEUIZHCSHUB6787-63-80B3 3:15:301.2.840.724067.1.72.3.15|1.2 .840.785357.1.13.104.2.7.2.727879_1 [id number] Loan Huddleston [facility] 2023-01-26 14:14:51 xmGmAUTVkaHim/je1jw9ic0gOJBWoUTpjRU jmNikolay/mMFCk1eupjl2Qn/AumebePKd1392-6 4:14:51 Images from the original note were not included.Requested Renewals semaglutide (OZEMPIC) 0.25 mg or 0.5 mg(2 mg/1.5 mL) PnIj Possible duplicate: Hover to review recent actions on this medication Sig: inject 0.5 mg under the skin weekly. Disp: 1 Pen Refills: 1 Start: 01/26/2023 Class: eRX Non-formulary For: Type 2 diabetes mellitus without complication, without long-term current use of insulin; Morbid obesity Last ordered: 1 month ago (12/18/2022) by GRACIELA Rice Off-Protocol Failed 01/26/2023 02:06 PM Protocol Details Medication not assigned to a protocol, forward to provider. Valid encounter within last 12 months To be filled at: [facility] [id number] [address] Recent VisitsDate Type Provider Dept 12/24/22 Office Visit Nicky Peck PA [facility] 11/12/22 Office Visit Nicky Peck PA [facility] 09/08/22 Office Visit Kelly Reynaga FNP [facility] 08/08/22 Office Visit Kelly Reynaga FNP [facility] 06/27/22 Office Visit Kelly Reynaga FNP [facility] 04/11/22 Office Visit Kelly Reynaga FNP [facility] 02/07/22 Office Visit Kelly Reynaga FNP [facility] 01/17/22 Office Visit Kelly Reynaga FNP [facility] 12/24/21 Office Visit Kelly Reynaga FNP [facility] 11/05/21 Office Visit Nj Bullock MD [facility] Showing recent visits within past 540 days with a meds authorizing provider and meeting all other requirementsFuture AppointmentsNo visits were found meeting these conditions.Showing future appointments within next 150 days with a meds authorizing provider and meeting all other requirements 67100-3Pzssfdoqn encounter HvqvRD5416-89-44B26:15:01Telephone encounter NoteTXT1.2.840.586317.1.13.104.2.7. 2.107410|[id number] for patient rbjs96620-8CytfCPYJFZAKHJ[id number] 4TPIIHOMIUNLSWCZSDNMRPQ3526-89-49W1 4:15:011.2.840.507281.1.72.3.15|1.2 .840.182243.1.13.104.2.7.2.727879_1 [id number] [facility] 2023-01-26 07:44:09 CAF9s/6e1WvooSQW/M0A3n493ZSXqORPUPQ a70XD0Hpkt6OR6InWXN0gvL2wagtF4409-0 07:44:09 Pt is checking the status. 83676-2Zjlknitjv encounter ZuqeYT9502-94-43W91:45:03Telephone encounter NoteTXT1.2.840.825681.1.13.104.2.7. 2.265417|[id number] for patient hrlf09881-9YtzdYEHCZPTJNE[id number] 7NEFFMJTVFZACZADRMGECQL5023-45-76E5 7:45:031.2.840.044852.1.72.3.15|1.2 .840.912772.1.13.104.2.7.2.727879_1 [id number] [facility] 2023-01-24 21:24:28 JFAwI4cth4aaKVjplJd/G326JdEpwTWJNY+ 6epIVId4I/zueWnLC8YjEXVtyocge4643-6 1:24:28 Rosanne Resendiz is a 27 year old female that is requesting refills of ozympic.[facility] [id number] - [place] - [place] [address]Tcjib: [phone] Hfhfkt advise. 75261-2Xykbiuxwo encounter QvwjCX6296-68-73W57:25:47Telephone encounter NoteTXT1.2.840.037933.1.13.104.2.7. 2.467482|[id number] for patient iicc19234-4VkipCO479531849Qfhd Jrab[address] Ap[id number] 1FSIHGQFUUKCCTRPVYTMROO9252-36-82V5 1:25:471.2.840.587714.1.72.3.15|1.2 .840.300047.1.13.104.2.7.2.727879_1 [id number] Keisha Harvey [facility] 2023-01-07 14:00:00 abHC+oa7sQ7bRZoX+nV1pYA1bmCalem0j9C hstp2SWmp2muiPKWyeIahwNdozsDH6377-1 01-07T14:00:00 Images from the original note were not included.Venipuncture collection performed by clean technique on the left anticubitus. Total of 1 attempts were made. Slight pressure and a bandage/dressing were applied to the site(s). The patient experienced no complications. The following specimens were processed according to instructions and [facility] per lab order on 01/07/2023 LT BLUE SST 3 RED LAV PPT DK GREEN (LiHep) DK GREEN (SodH) GARY DK BLUE (K2) DK BLUE (S) ACD Blood Culture NIPT/NTD 64604-4Jpraa IqrhPT4400-38-23D36:13:21Nurse NoteTXT1.2.840.518571.1.13.104.2.7. 2.658017|[id number] for patient ifty10595-4Axmjc NoteLN[address] Kqrp[id number] 8NONCHGVSKXOVFDOHFDYDYC3419-16-30G1 4:13:211.2.840.353295.1.72.3.15|1.2 .840.735688.1.13.104.2.7.2.727879_1 [id number] [facility] 2022-12-24 14:30:00 WEmhHTpd65C9Lg2Jl5NUuVKEOJ3kxp0wk/0 bhN1X7Mvm0A9fNHB6oLpLnb/LvSGq6975-7 12-24T14:30:00 Images from the original note were not included.Venipuncture collection performed by clean technique on the right anticubitus. Total of 1 attempts were made. Slight pressure and a bandage/dressing were applied to the site(s). The patient experienced no complications. The following specimens were processed according to instructions and sent to [facility] per lab order on 12/24/2022 LT BLUE SST 1 RED LAV PPT DK GREEN (LiHep) DK GREEN (SodH) GARY DK BLUE (K2) DK BLUE (S) ACD Blood Culture NIPT/NTD 22948-3Nwlhz YdkfEC4474-47-28A11:10:24Nurse NoteTXT1.2.840.216505.1.13.104.2.7. 2.584145|[id number] for patient [address] Eg[id number] 3OMGVDNHDLXTAEJHVOHUZRG0862-50-79R1 4:10:241.2.840.758565.1.72.3.15|1.2 .840.455910.1.13.104.2.7.2.727879_1 [id number] [facility]"
[2023-07-27 11:20] LABS: SARS-CoV-2 Antigen Rapid Res Negative (Negative)
--- NOTE | 2023-07-27 11:43 | ER ---
Nurse's Notes [facility] Name: Rosanne Sparks Age: 27 yrs Sex: Female : 1995 Arrival Date: 07/27/2023 Time: 09:57 Bed 15 Private MD: Diagnosis: Otitis media, unspecified, right ear;Cough;Acute pharyngitis, unspecified Presentation: 07/27 10:13 Chief complaint: Patient states: EMMANUEL ear pain, sore throat and runny nose since Thursday. kc6 states her brother and sister are both sick. Coronavirus screen: At this time, the client does not indicate any symptoms associated with coronavirus-19. Ebola Screen: No symptoms or risks identified at this time. Initial Sepsis Screen: Does the patient meet any 2 criteria? HR > 90 bpm. Does the patient have a suspected source of infection? No. Patient's initial sepsis screen is negative. Risk Assessment: Do you want to hurt yourself or someone else? Patient reports no desire to harm self or others. Onset of symptoms was July 27, 2023. 10:13 Method Of Arrival: Ambulatory [facility] 10:13 Acuity: GARRY 4 kc6 Triage Assessment: 10:14 General: Appears in no apparent distress. comfortable, well groomed, well developed, kc6 Behavior is calm, cooperative, appropriate for age. Pain: Complains of pain in right ear and left ear. EENT: Reports difficulty swallowing nasal congestion pain in left ear and right ear. Neuro: Level of Consciousness is awake, alert, obeys commands, Oriented to person, place, time, situation, Appropriate for age. Cardiovascular: Denies chest pain, Capillary refill < 3 seconds. Respiratory: Airway is patent Trachea midline Respiratory effort is even, unlabored, Respiratory pattern is regular, symmetrical. GI: No signs and/or symptoms were reported involving the gastrointestinal system. : No signs and/or symptoms were reported regarding the genitourinary system. Derm: No signs and/or symptoms reported regarding the dermatologic system. Skin is intact, is healthy with good turgor, Skin is pink, warm \T\ dry. Musculoskeletal: No signs and/or symptoms reported regarding the musculoskeletal system. Circulation, motion, and sensation intact. Capillary refill < 3 seconds, Range of motion: intact in all extremities. 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 - Social history:: Smoking status: Patient denies any tobacco usage or history of. Screenin:15 [facility] ED Fall Risk Assessment (Adult) History of falling in the last 3 months, kc6 including since admission No falls in past 3 months (0 pts) Confusion or Disorientation No (0 pts) Intoxicated or Sedated No (0 pts) Impaired Gait No (0 pts) Mobility Assist Device Used No (0 pt) Altered Elimination No (0 pt) Score/Fall Risk Level 0 - 2 = Low Risk. Abuse screen: Denies threats or abuse. Denies injuries from another. Nutritional screening: No deficits noted. Tuberculosis screening: No symptoms or risk factors identified. Assessment: 10:16 Reassessment: please see triage. kc6 11:26 Reassessment: Patient appears in no apparent distress at this time. No changes from kc6 previously documented assessment. Patient and/or family updated on plan of care and expected duration. Pain level reassessed. Patient is alert, oriented x 3, equal unlabored respirations, skin warm/dry/pink. Vital Signs: 10:13 BP 121 / 92; Pulse 117; Resp 16 S; Pulse Ox 97% on R/A; Weight 91.63 kg (R); Height 5 kc6 ft. 0 in. (R); 10:15 Pulse 106; kc6 11:26 BP 115 / 68; Pulse 108; Resp 17 S; Pulse Ox 98% on R/A; kc6 12:04 BP 124 / 78; Pulse 108; Resp 18; Pulse Ox 99% on R/A; me1 10:13 Body Mass Index 39.45 (91.63 kg, 152.4 cm) 6 ED Course: 10:01 Patient arrived in ED. mr 10:01 Jeff Lara PA is PHCP. cp 10:01 Yazan Brady MD is Attending Physician. cp 10:12 Maria Dolores Robb, JOHN is Primary Nurse. kc6 10:14 Triage completed. kc6 10:14 Arm band placed on. kc6 10:15 Patient has correct armband on for positive identification. Bed in low position. Call kc6 light in reach. Side rails up X 1. Client placed on continuous cardiac and pulse oximetry monitoring. NIBP monitoring applied. 10:15 Patient maintains SpO2 saturation greater than 95% on room air. kc6 12:09 No provider procedures requiring assistance completed. Patient did not have IV access me1 during this emergency room visit. 12:10 Provided Education on: POC. Verbalized understanding. . me1 Administered Medications: No medications were administered Medication: 12:10 VIS not applicable for this client. me1 Outcome: 11:41 Discharge ordered by . nehal 12:09 Discharged to home ambulatory, me1 12:09 Condition: stable 12:09 Discharge instructions given to patient, Instructed on discharge instructions, follow up and referral plans. medication usage, Demonstrated understanding of instructions, follow-up care, medications, Prescriptions given X 2, 12:10 Patient left the ED. me1 Signatures: Brenda Alicia, Reg Reg mr Jeff Lara PA PA cp Campbell, Kaitlyn, RN RN [facility] Mari Godinez RN RN me1
--- NOTE | 2023-07-27 11:43 | EDPHYS ---
Physician Documentation [facility] Name: Rosanne Sparks Age: 27 yrs Sex: Female : 1995 Arrival Date: 07/27/2023 Time: 09:57 Bed 15 Private MD: ED Physician Yazan Brady HPI: 07/27 10:30 This 27 yrs old Female presents to ER via Ambulatory with complaints of Ear cp Pain, Runny Nose, Sore Throat. 10:30 The patient presents with pain, that is acute. The complaints affect the left ear and cp right ear. Onset: The symptoms/episode began/occurred 3 day(s) ago. 10:30 Associated signs and symptoms: Pertinent positives: sore throat, cough, rhinorrhea, cp Pertinent negatives: fever, vomiting, diarrhea. Severity of symptoms: in the emergency department the symptoms are unchanged despite home interventions. 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 - Social history:: Smoking status: Patient denies any tobacco usage or history of. ROS: 10:33 Constitutional: Negative for body aches, chills, fever, poor PO intake, cp 10:33 Eyes: Negative for injury, pain, redness, and discharge, cp 10:33 ENT: Positive for ear pain, sore throat, Negative for drainage from ear(s), difficulty swallowing, difficulty handling secretions, 10:33 Cardiovascular: Negative for chest pain, 10:33 Respiratory: Positive for cough, Negative for shortness of breath, wheezing, 10:33 Abdomen/GI: Negative for abdominal pain, vomiting, diarrhea, constipation, 10:33 Skin: Negative for rash, 10:33 Neuro: Negative for altered mental status, headache, weakness, 10:33 All other systems are negative, Exam: 10:35 Constitutional: The patient appears in no acute distress, alert, awake, non-toxic, well cp developed, well nourished, 10:35 Head/Face: Normocephalic, atraumatic. cp 10:35 Eyes: Periorbital structures: appear normal, Conjunctiva: normal, no exudate, no injection, Sclera: no appreciated abnormality, Lids and lashes: appear normal, bilaterally, 10:35 ENT: External ear(s): are unremarkable, Ear canal(s): are normal, clear, TM's: bulging, is not appreciated, bilaterally, erythema, that is mild, on the right, Nose: is normal, Mouth: Lips: moist, Oral mucosa: pink and intact, moist, Posterior pharynx: Airway: no evidence of obstruction, patent, Tonsils: with erythema, no exudate, Uvula: midline, erythema, that is mild, exudate, is not appreciated, 10:35 Neck: ROM/movement: Meningeal signs: are not present, Lymph nodes: no appreciated lymphadenopathy, 10:35 Chest/axilla: Inspection: normal, 10:35 Cardiovascular: Rate: tachycardic, Rhythm: regular, 10:35 Respiratory: the patient does not display signs of respiratory distress, Respirations: normal, no use of accessory muscles, no retractions, labored breathing, is not present, Breath sounds: are clear throughout, no decreased breath sounds, no stridor, no wheezing, 10:35 Abdomen/GI: Exam negative for discomfort, distension, guarding, Inspection: abdomen appears normal, Vital Signs: 10:13 BP 121 / 92; Pulse 117; Resp 16 S; Pulse Ox 97% on R/A; Weight 91.63 kg (R); Height 5 kc6 ft. 0 in. (R); 10:15 Pulse 106; kc6 11:26 BP 115 / 68; Pulse 108; Resp 17 S; Pulse Ox 98% on R/A; kc6 12:04 BP 124 / 78; Pulse 108; Resp 18; Pulse Ox 99% on R/A; me1 10:13 Body Mass Index 39.45 (91.63 kg, 152.4 cm) kc6 MDM: 10:25 Patient medically screened. cp 11:00 Differential diagnosis: otitis media, otitis externa, ruptured TM, cerumen impaction, cp strep throat, influenza, COVID-19. 11:40 Data reviewed: vital signs, nurses notes, lab test result(s). cp 11:40 Counseling: I had a detailed discussion with the patient and/or guardian regarding the cp historical points, exam findings, and any diagnostic results supporting the discharge/admit diagnosis, lab results, to return to the emergency department if symptoms worsen or persist or if there are any questions or concerns that arise at home. 07/27 10:30 Order name: Strep cp 07/27 10:30 Order name: Influenza Screen (a \T\ B); Complete Time: 11:15 cp 07/27 11:15 Interpretation: Reviewed. cp 07/27 10:52 Order name: SARS RAPID kc6 07/27 11:13 Order name: Throat Culture EDMS Administered Medications: No medications were administered Disposition: 12:59 Co-signature as Attending Physician, Yazan Brady MD I reviewed the patient's care rt provided by the Advanced Practice Provider and agree with the diagnosis and treatment plan. Disposition Summary: 07/27/23 11:41 Discharge Ordered Notes: Location: Home cp Problem: new cp Symptoms: are unchanged cp Condition: Stable cp Diagnosis - Otitis media, unspecified, right ear cp - Cough cp - Acute pharyngitis, unspecified cp Followup: cp - With: Private Physician - When: 2 - 3 days - Reason: Worsening of condition Discharge Instructions: - Discharge Summary Sheet cp - Otitis Media, Adult cp - Pharyngitis cp - Sore Throat cp - Cough, Adult cp Forms: - Medication Reconciliation Form cp - Thank You Letter cp - Antibiotic Education cp - Prescription Opioid Use cp - Patient Portal Instructions cp - Leadership Thank You Letter cp Prescriptions: - Amoxicillin 875 mg Oral Tablet - take 1 tablet ORAL route every 12 hours for 10 days; 20 tablet; Refills: 0, cp Product Selection Permitted - Tessalon Perles 100 mg Oral capsule - take 2 capsule ORAL route every 8 hours As needed; 30 capsule; Refills: 0, cp Product Selection Permitted Signatures: Dispatcher [employer] EDMS Jeff Lara PA PA cp Maria Dolores Robb RN RN kc6 Yazan Brady MD MD rt Corrections: (The following items were deleted from the chart) 10:55 10:31 SARS-COV-2 RT PCR+[id number] ordered. EDVT EDMS
[2023-07-27 12:23] VITALS: BP 124/78; O2SAT 99
== END ==
LOC: ER 09:57
DX: H66.91 Otitis media, unspecified, right ear (principal); R05.9 Cough, unspecified; J02.9 Acute pharyngitis, unspecified; E11.9 Type 2 diabetes mellitus without complications; Z11.52 Encounter for screening for COVID-19
CPT/HCPCS: 36415; 87070; 87081; 87804; 87811

== ENCOUNTER 2024-03-15 08:40 | Emergency (ER) | payer OTHER ==
--- OUTSIDE RECORDS SUMMARY | 2024-03-15 08:52 | XMS REPORT | Continuity of Care Document ---
Author Name Unknown Address [address] [place] [address] [facility] thconnect Address [address] [place] [address] Care Team Providers Care Bonus Clerk Name Role Phone Kelly Lopez Primary Care Physician +[phone] SUPRIYA YAN Attending Clinician SUPRIYA Perez Attending Clinician KELLY Menendez Attending Clinician Unavailable DANIEL HENDERSON Attending Clinician Unavailable TONE HENDERSON Attending Clinician Unavailable TONE HENDERSON Attending Clinician Unavailable LAURA MARTÍNEZ Attending Clinician Unavailable Juhi OWENS, Kelly Attending Clinician + [phone] Fred LOPEZ, Katie Mcpherson Attending Clinician Unavaila franco Nurse, [facility] Attending Clinician Un available Supriya Yan MD Attending Clinician [phone] Doctor Unassigned, [place] Attending Clinician U navailable Lab, Ang - Db Attending Clinician Unavailable Nicky Serrano Attending Clinician [phone] NICKY PECK Attending Clinician Unavailable Laura Martínez DDS Attending Clinician [phone] BLAKE PELLETIER Attending Clinician Unavailable Blake Pelletier MD Attending Clinician [phone] [place] BULLOCK Attending Clinician ELIOT Stokes Attending Clinician Unavailable ELIOT CHEUNG Attending Clinician Unavailable Tian Caro MD Attending Clinician [phone] Viola Roberts Attending Clinician [phone] Unknown, Attending Attending Clinician Unavailab VIOLA Gama Attending Clinician Unavailable Lab, Ang - Db Attending Clinician Unavailable Sathya Lopeza Attending Clinician + [phone] Pob, [facility] Main Attending Clinician UnavailOBEY Conn Attending Clinician Unavailable NISHANT CHAPMAN Attending Clinician Unavailable Nurse, [facility] Attending Clinician Un available Nishant Chapman MD Attending Clinician [phone] TIAN CARO Attending Clinician UnavailDarlin VERGARAP- Obey INMAN Attending Clinician Tone Henderson DO Attending Clinician [phone] Marley Camarillo MD Attending Clinician [phone] , [facility] Sleep Lab Bed Attending Clinician Unavail Kenzie Palacio MD Attending Clinician [phone] KENZIE CORREA Attending Clinician UnavailKENZIE Parsons Attending Clinician Unavaildusty putnam Doctor Unassigned, [place] Attending Clinician U navailable Nicky Serrano Attending Clinician [phone] [place] RUBIN Attending Clinician Unavailable Emily Kaminski RN Attending Clinician UnavailMARLEY Couch Attending Clinician Unavailabl e JOSE_Madhu_Saray Attending Clinician Unavailab CARMEN House Attending Clinician UnavailCem Slater MD Attending Clinician [phone] CEM PORTILLO Attending Clinician Unavailabl e Mirtha Bowman LVN Attending Clinician Anne Foster MA Attending Clinician UnavailNj Veliz MD Attending Clinician + [phone] MALACHI DURAN Attending Clinician Unavailable Malachi Mejia Attending Clinician [phone] Burke POSEY Attending Clinician Unavailable Burke Strauss Attending Clinician [phone] Susan Aguilera RN Attending Clinician Unavailab yolande Provider, [facility] Attending Clinician Unavailable Celina Uribe MD Attending Clinician [phone] Only, Ang Db Test Attending Clinician UnavailCELINA Verduzco Attending Clinician Unavailable Vaccine, Ang Db Cbc Fam Attending Clinician Unav ailable UNKNOWN, ATTENDING Attending Clinician Unavailab SIVAKUMAR Gamez Attending Clinician UnavailIsabel Jaeger RN Attending Clinician Unavailable Diana Mahajan Attending Clinician [phone] Provider, [facility] Attending Clinician Un available STEVE MURO Attending Clinician Unavailable ELIOT CHEUNG Admitting Clinician Unavailable LAURA MARTÍNEZ Admitting Clinician Unavailable Laura Martínez DDS Admitting Clinician [phone] NICKY PECK Admitting Clinician Unavailable MARLEY CAMARILLO Admitting Clinician Unavailabl chanel Duong Admitting Clinician Unavailab yolande Payers Payer Name Policy Type Policy Number Effective Date Expirati on Date Source [facility] [id number] Problems Condition Name Condition Details Condition Category Status Onset Date Resolution Date Last Treatment Date Treating Clinician Comments Source Sinus tachycardi a Sinus tachycardi a Disease Active 7- 00:00: 00 [facility] Palpitatio ns Palpitatio ns Disease Active 12-21 00:00: 00 [facility] Neutrophil ia Neutrophil ia Disease Active 12-07 00:00: 00 Overview: Formattin g of this note is different from the original. WBC (10*3/?L) Date Value 4 15.69 (H) 4 20.60 (H) 4 14.31 (H) 3 12.29 (H) 3 12.68 (H) [facility] Intoleranc e of continuous positive airway pressure (CPAP) ventilatio n Intoleranc e of continuous positive airway pressure (CPAP) ventilatio n Disease Active 5-20 00:00: 00 [facility] FAWN (obstructi ve sleep apnea) FAWN (obstructi ve sleep apnea) Disease Active 5-17 00:00: 00 [facility] Type 2 diabetes mellitus without complicati on, without long-term current use of insulin Type 2 diabetes mellitus without complicati on, without long-term current use of insulin Disease Active 3-03 00:00: 00 [facility] Morbid obesity Morbid obesity Disease Active 3-03 00:00: 00 [facility] Plantar fasciitis of left foot Plantar fasciitis of left foot Disease Active 03-05 00:00: 00 [facility] Pain in left foot Pain in left foot Disease Resolve d - 00:00: 00 2023-12-11 00:00:00 2023-12-11 09:11:56 [facility] Subacute maxillary sinusitis Subacute maxillary sinusitis Disease Resolve d 6 00:00: 00 2023-12-11 00:00:00 2023-12-11 09:11:53 [facility] Left arm pain Left arm pain Disease Resolve d 11-15 00:00: 00 2023-12-11 00:00:00 2023-12-11 09:11:51 [facility] Acute otitis media, bilateral Acute otitis media, bilateral Disease Resolve d 11-15 00:00: 00 2023-12-11 00:00:00 2023-12-11 09:11:49 [facility] Allergies, Adverse Reactions, Alerts Allergy Name Allergy Type Status Severity Reaction(s) Onset Date Inactive Date Treating Clinician Comments Source NO KNOWN ALLERGIE S Drug Class Active [facility] Social History Social Habit Start Date Stop Date Quantity Comments Source History of tobacco use Passive smoker [facility] History of Social function 2024-02-18 00:00:00 2024-02-18 00:00:00 [facility] Alcoholic beverage intake 2024-01-26 00:00:00 2024-01-26 00:00:00 Current drinker of alcohol (finding) [facility] Alcohol Comment 2023-11-20 00:00:00 2023-11-20 00:00:00 ocassional [facility] Alcohol intake 2023-10-05 00:00:00 2023-10-05 00:00:00 Lifetime non-drinker (finding) [facility] Exposure to SARS-CoV-2 (event) 2022-11-06 00:00:00 2022-11-16 16:22:00 Not sure [facility] Tobacco use and exposure 2022-04-17 00:00:00 2022-04-17 00:00:00 Smokeless tobacco non-user [facility] Sex assigned at 1995 00:00:00 1995 00:00:00 [facility] Smoking Status Start Date Stop Date Source Never smoked tobacco [facility] Medications Ordered Medication Name Filled Medication Name Start Date Stop Date Current Medication? Ordering Clinician Indication Dosage Frequency Signature (SIG) Comments Components Source metFORMIN 500 mg tablet 02-17 00:00: 00 Yes [id number] 500mg Take 1 tablet by mouth in the morning and 1 tablet in the evening. Take with meals. [facility] medroxyPROG ESTERone (DEPO-PROVE RA) syringe 150 mg 01-25 22:45: 00 01-25 21:53 :00 No [id number] 150mg 150 mg, Intramuscu lar, ONCE, 1 dose, On Thu01/26/24 at 1745, Routine [facility] acyclovir 5 % ointment 01-13 00:00: 00 01-18 04:59 :00 No [id number] Apply to area(s) 5 (five) times daily for 4 days. [facility] propranoloL 10 mg tablet 12-21 00:00: 00 06-20 05:59 :00 Yes [id number] 10mg Take 1 tablet by mouth in the morning and 1 tablet in the evening. Do all this for 180 days. [facility] Potassium Bicarb-Citr ic Acid (EFFER-K) effervescen t tablet 40 mEq 12-18 11:45: 00 12-18 12:04 :00 No [id number] 40 mEq, Oral, ONCE, 1 dose, On 12/19/23 at 0645, Routine [facility] iopamidol (ISOVUE 370-500 mL) injection 75 mL 12-18 10:45: 00 12-18 10:45 :00 No [id number] 75mL 75 mL, Intravenou s, ONCE, 1 dose, On 12/19/23 at 0545, Routine [facility] nystatin 100,000 unit/gram cream 12-15 00:00: 00 12-30 04:59 :00 Yes [id number] Apply to area(s) 2 (two) times daily for 14 days. [facility] propranoloL (INDERAL) tablet 10 mg 12-10 02:00: 00 Yes 10mg 10 mg, Oral, QHS, First dose on Brenna 12/10/23 at 2100, Until Discontinu ed, Routine [facility] chlorhexidi ne 0.12 % mouthwash 12-10 00:00: 12-27 04:59 :00 No [id number] 15mL Swish and spit out 15 mL in the morning and 15 mL in the evening. Do all this for 16 days. [facility] ibuprofen 100 mg/5 mL oral suspension 12-10 00:00: 12-25 04:59 :00 No [id number] 600mg Take 30 mL by mouth every 6 (six) hours for 14 days. [facility] 160 mg/5 mL (5 mL) oral suspension 12-10 00:00: 00 12-25 04:59 :00 No [id number] 500.16m g Take 15.63 mL by mouth every 6 (six) hours for 14 days. [facility] HYDROcodone -acetaminop hen 7.5-325 mg/15 mL solution 12-10 00:00: 00 12-18 04:59 :00 No [id number] 5mg Take 10 mL by mouth 4 (four) times daily as needed for Pain (scale 7-10) for up to 7 days. Indication s: acute pain [facility] amoxicillin -pot clavulanate (AUGMENTIN) 250-62.5 mg/5 mL suspension 12-10 00:00: 12-15 00:00 :00 No [id number] 500mg Take 10 mL by mouth in the morning and 10 mL at noon and 10 mL in the evening. Do all this for 10 days. [facility] acetaminoph en (TYLENOL) 160 mg/5 mL oral liquid 500 mg 12-09 23:00: 00 Yes 500mg 500 mg, Oral, Q6H, First dose on Brenna 12/10/23 at 1800, Until Discontinu ed, Routine [facility] ketorolac (TORADOL) injection 15 mg 12-09 23:00: 12-11 22:59 :00 No 15mg 15 mg, Slow IV Push, Q6H, 8 doses, First dose (after last modificati on) on Thu12/10/23 at 1800, Last dose on Thu12/12/23 at 1200, Routine [facility] dexamethaso ne sod phos PF injection 10 mg 12-09 17:45: 00 12-10 10:59 :00 No 10mg 10 mg, Intravenou s, Q8H, 3 doses, First dose on Thu12/10/23 at 1245, Last dose on Thu12/10/23 at 2200, 1 mL [facility] Sliding Scale Insulin - Lispro (HumaLOG) 12-09 17:00: 00 Yes Subcutaneo us, TID MEALS+HS, First dose on Thu12/10/23 at 1200, Until Discontinu ed, Routine [facility] glucagon (GLUCAGEN DIAGNOSTIC KIT) injection 1 mg 12-09 15:32: 11 Yes 1mg 1 mg, Intramuscu lar, PRN, Starting on Thu12/10/23 at 1032, Until Discontinu ed, LG, Blood Glucose < or = 70 mg/dL and patient is NPO, unable to swallow or has mental changes. [facility] dextrose 50 % in water (D50W) injection 25 mL 12-09 15:32: 11 Yes 25mL 25 mL, Slow IV Push, PRN, Starting on Thu12/10/23 at 1032, Until Discontinu ed, LG, Blood Glucose < or = 70 mg/dL and patient is NPO, unable to swallow or has mental status changes. [facility] chlorhexidi ne (PERIDEX) 0.12 % mouthwash 15 mL 12-09 01:00: 00 Yes 15mL 15 mL, Oral (Swish And Spit Out), BID, First dose on Thu12/09/23 at 2000, Until Discontinu ed, Routine [facility] ampicillin- sulbactam (UNASYN) 3 g in NaCl 0.9% (NS) 100 mL MINI-BAG 12-08 21:00: 00 12-11 20:59 :00 No 3g 3 g, IV Piggyback, Q6H ABX, 12 doses, First dose on Thu12/09/23 at 1600, Last dose on Thu12/12/23 at 1000, Administer over 30 Minutes, 100 mL, Reason for Anti-Infec tive: Surgical Prophylaxi s, Surgical Prophylaxi s: Oral and/or Maxillofac ial, Duration of therapy: within 24 hours of surgery [facility] FENTanyl PF (SUBLIMAZE (PF)) injection 25 mcg 12-08 20:27: 24 12-08 22:08 :40 No 25ug 25 mcg, Slow IV Push, Q5MIN PRN, 4 doses, Starting on Thu12/09/23 at 1527, Until Thu12/09/23 at 1708, Routine, Pain (scale 4-6), PACU [facility] lactated ringers IV infusion 1,000 mL 12-08 20:00: 00 Yes 1000mL at 42 mL/hr, 1,000 mL, IV Infusion, CONTINUOUS , Starting on Thu12/09/23 at 1500, Until Discontinu ed, Routine [facility] ketorolac (TORADOL) injection 15 mg 12-08 19:58: 06 12-09 19:29 :07 No 15mg 15 mg, Slow IV Push, Q6HPRN, Starting on Thu12/09/23 at 1458, Until Brenna 12/10/23 at 1429, Routine, Pain (scale 4-6) [facility] HYDROcodone -acetaminop hen (HYCET) 7.5-325 mg/15 mL solution 5 mg 12-08 19:57: 48 Yes 5mg 5 mg, Oral, Q6HPRN, Starting on Thu12/09/23 at 1457, Until Discontinu ed, Routine, Pain (scale 7-10) [facility] ondansetron (ZOFRAN (PF)) injection 4 mg 12-08 19:54: 58 Yes 4mg 4 mg, Slow IV Push, Q4HPRN, Starting on Thu12/09/23 at 1454, Until Discontinu ed, Routine, Nausea and Vomiting (N/V) [facility] lidocaine-e pinephrine (XYLOCAINE WITH EPINEPHRINE ) 1 %-1:100,000 injection 12-08 17:56: 00 12-08 20:27 :10 No PRN, Starting on Thu12/09/23 at 1256, Until Thu12/09/23 at 1527, Routine, Intra-op [facility] oxymetazoli ne (OXYMETAZOL INE HCL) 0.05 % nasal spray 12-08 17:55: 00 12-08 20:27 :10 No Intra-op [facility] vancomycin (VANCOCIN) 1,000 mg in NaCl 0.9% (NS) 1,000 mL OR irrigation 12-08 17:55: 00 12-08 20:27 :10 No PRN, Starting on Thu12/09/23 at 1255, Intra-op [facility] lactated ringers IV infusion 1,000 mL 11-11 15:00: 00 11-11 17:50 :15 No 1000mL at 75 mL/hr, 1,000 mL, IV Infusion, CONTINUOUS , Starting on Brenna 11/12/23 at 1000, Until Brenna 11/12/23 at 1250, Routine, PACU [facility] ondansetron (ZOFRAN (PF)) injection 4 mg 11-11 14:56: 17 11-11 17:50 :15 No 4mg 4 mg, Slow IV Push, PRN, 1 dose, Starting on Brenna 11/12/23 at 0956, Until Brenna 24 at 1250, Routine, Nausea and Vomiting (N/V), PACU [facility] no115/iron/ folic acid ( 19 ORAL) 11-11 10:50: 12 12-15 00:00 :00 No Take by mouth. [facility] medroxyPROG ESTERone (DEPO-PROVE RA) syringe 150 mg 11-02 16:45: 00 11-02 15:51 :00 No [id number] 150mg 150 mg, Intramuscu lar, ONCE, 1 dose, On Thu11/03/23 at 1145, Routine [facility] semaglutide (OZEMPIC) 1 mg/dose (4 mg/3 mL) PnIj 10-20 00:00: 00 02-17 00:00 :00 No [id number] 1mg inject 1 mg under the skin weekly. [facility] propranoloL 10 mg tablet 09-21 00:00: 00 12-21 00:00 :00 No [id number] 10mg Take 1 tablet by mouth at bedtime. [facility] medroxyPROG ESTERone (DEPO-PROVE RA) syringe 150 mg 08-09 15:00: 00 08-09 14:14 :00 No [id number] 150mg [facility] semaglutide (OZEMPIC) 1 mg/dose (4 mg/3 mL) Ij 07-30 00:00: 00 10-20 00:00 :00 No [id number] 1mg inject 1 mg under the skin weekly. [facility] Cholecalcif fortunato, Vitamin D3, (VITAMIN D3) 50 mcg (2,000 unit) tablet 07-23 00:00: 00 12-15 00:00 :00 No [id number] 2000U Take 1 tablet by mouth in the morning. [facility] ergocalcife rol, vitamin d2, 1,250 mcg (50,000 unit) capsule 07-15 00:00: 00 07-23 00:00 :00 No [id number] 77205Q Take 1 capsule by mouth weekly. [facility] semaglutide (OZEMPIC) 1 mg/dose (4 mg/3 mL) PnIj 06-25 00:00: 00 07-30 00:00 :00 No [id number] 1mg inject 1 mg under the skin weekly. [facility] cefUROXime 250 mg tablet 06-17 00:00: 00 06-25 05:59 :00 No [id number] 250mg Take 1 tablet by mouth in the morning and 1 tablet in the evening. Do all this for 7 days. [facility] semaglutide (OZEMPIC) 1 mg/dose (4 mg/3 mL) PnIj 2022-06 2-15 00:00: 00 06-25 00:00 :00 No [id number] 1mg inject 1 mg under the skin weekly. [facility] ergocalcife rol, vitamin d2, 1,250 mcg (50,000 unit) capsule 2022-06 1-20 00:00: 00 07-15 00:00 :00 No [id number] 78090I Take 1 capsule by mouth weekly. [facility] semaglutide (OZEMPIC) 1 mg/dose (4 mg/3 mL) PnIj 2022- 0-19 00:00: 00 05-22 00:00 :00 No [id number] 1mg inject 1 mg under the skin weekly. [facility] medroxyPROG ESTERone (DEPO-PROVE RA) syringe 150 mg 18 15:30: 00 02-23 14:44 :00 No [id number] 150mg [facility] semaglutide (OZEMPIC) 0.25 mg or 0.5 mg(2 mg/1.5 mL) Ij 3-0 - 00:00: 00 03-26 00:00 :00 No [id number] .5mg inject 0.5 mg under the skin weekly. [facility] cefUROXime 250 mg tablet -19 00:00: 00 01-01 04:59 :00 No [id number] 250mg Take 1 tablet by mouth in the morning and 1 tablet in the evening. Do all this for 7 days. [facility] semaglutide (OZEMPIC) 0.25 mg or 0.5 mg(2 mg/1.5 mL) PnIj 3-0 7-13 00:00: 00 01-26 00:00 :00 No [id number] .5mg inject 0.5 mg under the skin weekly. [facility] medroxyPROG ESTERone (DEPO-PROVE RA) syringe 150 mg 11-18 14:45: 00 11-18 13:54 :00 No [id number] 150mg [facility] ferrous sulfate (IRON ORAL) 11-18 08:43: 18 Yes Take by mouth. [facility] semaglutide (OZEMPIC) 0.25 mg or 0.5 mg(2 mg/1.5 mL) Ij 11-12 00:00: 00 12-18 00:00 :00 No [id number] .5mg inject 0.5 mg under the skin weekly. [facility] semaglutide (OZEMPIC) 0.25 mg or 0.5 mg(2 mg/1.5 mL) [facility] - 00:00: 00 11-12 00:00 :00 No [id number] .5mg inject 0.5 mg under the skin weekly. [facility] medroxyPROG ESTERone (DEPO-PROVE RA) syringe 150 mg 07 18:15: 00 08-12 17:15 :00 No [id number] 150mg [facility] semaglutide (OZEMPIC) 0.25 mg or 0.5 mg(2 mg/1.5 mL) [facility] 3- 00:00: 00 09-08 00:00 :00 No [id number] .25mg inject 0.25 mg under the skin weekly. [facility] metformin ER 750 mg 24 hr tablet 1-20 00:00: 00 09-08 00:00 :00 No [id number] 750mg Take 1 tablet by mouth daily with breakfast. [facility] medroxyPROG ESTERone (DEPO-PROVE RA) syringe 150 mg 2021-06 16:30: 00 05-19 15:52 :00 No [id number] 150mg [facility] triamcinolo ne acetonide 0.1 % cream 2021-06 00:00: 00 Yes [id number] Apply to area(s) 2 (two) times daily. [facility] ketoconazol e 2 % cream 2021-06 2 00:00: 00 Yes [id number] Apply to area(s) 2 (two) times daily. [facility] hydrOXYzine 25 mg tablet 2021-06- 00:00: 00 12-15 00:00 :00 No [id number] 25mg Take 1 tablet by mouth every 6 (six) hours as needed for Itching. [facility] metformin ER 750 mg 24 hr tablet 2021-06- 00:00: 00 06-27 00:00 :00 No [id number] 750mg Take 1 tablet by mouth daily with breakfast. [facility] ferrous sulfate (IRON ORAL) 2021-06 10:45: 25 Yes Take by mouth. [facility] miSOPROStoL 200 mcg tablet 2021-06 00:00: 00 04-21 00:00 :00 No [id number] 200ug Take 1 tablet by mouth SEE-INSTRU CTIONS. Take one tab the night before and one tab the morning of procedure [facility] Diclofenac Sodium (VOLTAREN) 1 % gel 02-07 00:00: 00 09-08 00:00 :00 No [id number] 9107 Apply to area(s) 4 (four) times daily. Apply 4 g qid [facility] flash glucose sensor (FREESTYLE BAMBI 14 DAY SENSOR) Kit 8-29 00:00: 00 09-08 00:00 :00 No 1{each} 1 Each every 14 (fourteen) days. Use as directed every 14 days for E11.9 [facility] metformin ER 750 mg 24 hr tablet 8-15 00:00: 00 05-09 00:00 :00 No [id number] 750mg Take 1 tablet by mouth daily with breakfast. [facility] naproxen 500 mg tablet 8-12 00:00: 00 09-08 00:00 :00 No [id number] 9107 500mg Take 1 tablet by mouth 2 (two) times daily as needed for Pain (scale 4-6). [facility] sulfamethox azole-trime thoprim (BACTRIM DS) 800-160 mg per tablet 5-31 00:00: 00 09-08 00:00 :00 No [id number] 9100 1{tbl} Take 1 tablet by mouth 2 (two) times daily. [facility] butalbital- acetaminoph en-caff 50-325-40 mg tablet 5-19 00:00: 00 09-08 00:00 :00 No [id number] 1{tbl} Take 1 tablet by mouth every 4 (four) hours as needed for Pain (scale 7-10). [facility] lisinopriL 2.5 mg tablet 3-25 00:00: 00 09-08 00:00 :00 No [id number] 2.5mg Take 1 tablet by mouth daily. [facility] SITagliptin (JANUVIA) 100 mg tablet 3-25 00:00: 00 06-27 00:00 :00 No [id number] 100mg Take 1 tablet by mouth daily. [facility] canaglifloz in (INVOKANA) 100 mg tablet 3-25 00:00: 00 10-15 00:00 :00 No [id number] 100mg Take 1 tablet by mouth daily. [facility] mupirocin 2 % ointment 1- 00:00: 00 09-08 00:00 :00 No [id number] Apply to area(s) 3 (three) times daily. [facility] naproxen 500 mg tablet 2020-06-16 00:00: 00 06-23 05:59 :00 No [id number] 9100 500mg Take 1 tablet by mouth 2 (two) times daily as needed for Pain (scale 4-6) for up to 30 days. [facility] pantoprazol e 40 mg EC tablet 2020-06 1-08 00:00: 09-08 00:00 :00 No [facility] famotidine 20 mg tablet 2020-06 00:00: 00 09-08 00:00 :00 No [facility] ibuprofen 800 mg tablet 2020-06 00:00: 00 01-17 00:00 :00 No [facility] SUMAtriptan 50 mg tablet 2020-06 00:00: 00 09-08 00:00 :00 No [facility] fluticasone propionate 50 mcg/actuati on nasal spray 2020-06 00:00: 00 09-08 00:00 :00 No [id number] 1{spray } Use 1 Capulin in each nostril daily. [facility] guaiFENesin 400 mg tablet 2020-06 00:00: 00 01-17 00:00 :00 No [id number] 400mg Take 1 tablet by mouth every 4 (four) hours as needed for Cough. [facility] ciprofloxac in-dexameth asone (CIPRODEX) 0.3-0.1 % otic drops 2020-06 00:00: 00 01-17 00:00 :00 No [id number] 4[drp] Place 4 Drops in right ear 2 (two) times daily. [facility] glimepiride 2 mg tablet 2020-06 00:00: 00 06-20 00:00 :00 No [facility] metFORMIN 500 mg tablet 02-18 00:00: 00 06-20 00:00 :00 No [facility] acetaminoph en 650 mg CR tablet 11-15 00:00: 00 09-08 00:00 :00 No [id number] 650mg Take 1 tablet by mouth every 8 (eight) hours as needed for Pain or Fever. [facility] Diclofenac Sodium (VOLTAREN) 1 % gel 11-15 00:00: 00 02-07 00:00 :00 No [id number] Apply to area(s) 4 (four) times daily. Apply 4 g qid [facility] amoxicillin -clavulanat e (AUGMENTIN) 875-125 mg per tablet 11-15 00:00: 00 01-17 00:00 :00 No [id number] 1{tbl} Take 1 tablet by mouth 2 (two) times daily. [facility] DEPO-FIXED WING PILOT A 150 mg/mL syringe 11-08 00:00: 00 09-08 00:00 :00 No [facility] [facility] nystatin 100,000 unit/gram cream 430 00:00: 00 09-08 00:00 :00 No [facility] chlorhexidi ne 0.12 % mouthwash 4 00:00: 00 12-15 00:00 :00 No 32mL 32 mL. [facility] Immunizations Ordered Immunization Name Filled Immunization Name Date Status Comments Source SARS-COV-2 COVID-19 PFIZER VACCINE 2021-05-10 00:00:00 Completed [facility] SARS-COV-2 COVID-19 PFIZER VACCINE 2021-05-10 00:00:00 Completed [facility] SARS-COV-2 COVID-19 PFIZER VACCINE 2021-05-10 00:00:00 Completed [facility] SARS-COV-2 COVID-19 PFIZER VACCINE 2021-05-10 00:00:00 Completed [facility] SARS-COV-2 COVID-19 PFIZER VACCINE 2021-05-10 00:00:00 Completed [facility] SARS-COV-2 COVID-19 PFIZER VACCINE 2021-05-10 00:00:00 Completed [facility] SARS-COV-2 COVID-19 PFIZER VACCINE 2021-05-10 00:00:00 Completed [facility] SARS-COV-2 COVID-19 PFIZER VACCINE 2021-05-10 00:00:00 Completed [facility] SARS-COV-2 COVID-19 PFIZER VACCINE 2021-05-10 00:00:00 Completed [facility] SARS-COV-2 COVID-19 PFIZER VACCINE 2021-05-10 00:00:00 Completed [facility] SARS-COV-2 COVID-19 PFIZER VACCINE 2021-05-10 00:00:00 Completed [facility] SARS-COV-2 COVID-19 PFIZER VACCINE 2021-05-10 00:00:00 Completed [facility] SARS-COV-2 COVID-19 PFIZER VACCINE 2021-05-10 00:00:00 Completed [facility] SARS-COV-2 COVID-19 PFIZER VACCINE 2021-05-10 00:00:00 Completed [facility] SARS-COV-2 COVID-19 PFIZER VACCINE 2021-05-10 00:00:00 Completed [facility] SARS-COV-2 COVID-19 PFIZER VACCINE 2021-05-10 00:00:00 Completed [facility] SARS-COV-2 COVID-19 PFIZER VACCINE 2021-05-10 00:00:00 Completed [facility] SARS-COV-2 COVID-19 PFIZER VACCINE 2021-05-10 00:00:00 Completed [facility] SARS-COV-2 COVID-19 PFIZER VACCINE 2021-05-10 00:00:00 Completed [facility] SARS-COV-2 COVID-19 PFIZER VACCINE 2021-05-10 00:00:00 Completed [facility] SARS-COV-2 COVID-19 PFIZER VACCINE 2021-05-10 00:00:00 Completed [facility] SARS-COV-2 COVID-19 PFIZER VACCINE 2021-05-10 00:00:00 Completed [facility] SARS-COV-2 COVID-19 PFIZER VACCINE 2021-05-10 00:00:00 Completed [facility] SARS-COV-2 COVID-19 PFIZER VACCINE 2021-05-10 00:00:00 Completed [facility] SARS-COV-2 COVID-19 PFIZER VACCINE 2021-05-10 00:00:00 Completed [facility] SARS-COV-2 COVID-19 PFIZER VACCINE 2021-05-10 00:00:00 Completed [facility] SARS-COV-2 COVID-19 PFIZER VACCINE 2021-05-10 00:00:00 Completed [facility] SARS-COV-2 COVID-19 PFIZER VACCINE 2021-05-10 00:00:00 Completed [facility] SARS-COV-2 COVID-19 PFIZER VACCINE 2021-05-10 00:00:00 Completed [facility] SARS-COV-2 COVID-19 PFIZER VACCINE 2021-05-10 00:00:00 Completed [facility] SARS-COV-2 COVID-19 PFIZER VACCINE 2021-05-10 00:00:00 Completed [facility] SARS-COV-2 COVID-19 PFIZER VACCINE 2021-05-10 00:00:00 Completed [facility] SARS-COV-2 COVID-19 PFIZER VACCINE 2021-05-10 00:00:00 Completed [facility] SARS-COV-2 COVID-19 PFIZER VACCINE 2021-05-10 00:00:00 Completed [facility] SARS-COV-2 COVID-19 PFIZER VACCINE 2021-05-10 00:00:00 Completed [facility] SARS-COV-2 COVID-19 PFIZER VACCINE 2021-05-10 00:00:00 Completed [facility] SARS-COV-2 COVID-19 PFIZER VACCINE 2021-05-10 00:00:00 Completed [facility] SARS-COV-2 COVID-19 PFIZER VACCINE 2021-05-10 00:00:00 Completed [facility] SARS-COV-2 COVID-19 PFIZER VACCINE 2021-05-10 00:00:00 Completed [facility] SARS-COV-2 COVID-19 PFIZER VACCINE 2021-05-10 00:00:00 Completed [facility] SARS-COV-2 COVID-19 PFIZER VACCINE 2021-05-10 00:00:00 Completed [facility] SARS-COV-2 COVID-19 PFIZER VACCINE 2021-05-10 00:00:00 Completed [facility] SARS-COV-2 COVID-19 PFIZER VACCINE 2021-05-10 00:00:00 Completed [facility] SARS-COV-2 COVID-19 PFIZER VACCINE 2021-05-10 00:00:00 Completed [facility] SARS-COV-2 COVID-19 PFIZER VACCINE 2021-05-10 00:00:00 Completed [facility] SARS-COV-2 COVID-19 PFIZER VACCINE 2021-05-10 00:00:00 Completed [facility] Influenza Virus Vaccine Quad IM, Preserv and ABX Free 6 MO-64 YRS 2021-04-22 00:00:00 Completed [facility] TDAP 2021-04-22 00:00:00 Completed [facility] Influenza Virus Vaccine Quad IM, Preserv and ABX Free 6 MO-64 YRS 2021-04-22 00:00:00 Completed [facility] TDAP 2021-04-22 00:00:00 Completed [facility] Influenza Virus Vaccine Quad IM, Preserv and ABX Free 6 MO-64 YRS 2021-04-22 00:00:00 Completed [facility] TDAP 2021-04-22 00:00:00 Completed [facility] Influenza Virus Vaccine Quad IM, Preserv and ABX Free 6 MO-64 YRS 2021-04-22 00:00:00 Completed [facility] TDAP 2021-04-22 00:00:00 Completed [facility] Influenza Virus Vaccine Quad IM, Preserv and ABX Free 6 MO-64 YRS 2021-04-22 00:00:00 Completed [facility] TDAP 2021-04-22 00:00:00 Completed [facility] Influenza Virus Vaccine Quad IM, Preserv and ABX Free 6 MO-64 YRS 2021-04-22 00:00:00 Completed [facility] TDAP 2021-04-22 00:00:00 Completed [facility] Influenza Virus Vaccine Quad IM, Preserv and ABX Free 6 MO-64 YRS 2021-04-22 00:00:00 Completed [facility] TDAP 2021-04-22 00:00:00 Completed [facility] Influenza Virus Vaccine Quad IM, Preserv and ABX Free 6 MO-64 YRS 2021-04-22 00:00:00 Completed [facility] TDAP 2021-04-22 00:00:00 Completed [facility] Influenza Virus Vaccine Quad IM, Preserv and ABX Free 6 MO-64 YRS 2021-04-22 00:00:00 Completed [facility] TDAP 2021-04-22 00:00:00 Completed [facility] Influenza Virus Vaccine Quad IM, Preserv and ABX Free 6 MO-64 YRS 2021-04-22 00:00:00 Completed [facility] TDAP 2021-04-22 00:00:00 Completed [facility] Influenza Virus Vaccine Quad IM, Preserv and ABX Free 6 MO-64 YRS 2021-04-22 00:00:00 Completed [facility] TDAP 2021-04-22 00:00:00 Completed [facility] Influenza Virus Vaccine Quad IM, Preserv and ABX Free 6 MO-64 YRS 2021-04-22 00:00:00 Completed [facility] TDAP 2021-04-22 00:00:00 Completed [facility] Influenza Virus Vaccine Quad IM, Preserv and ABX Free 6 MO-64 YRS 2021-04-22 00:00:00 Completed [facility] TDAP 2021-04-22 00:00:00 Completed [facility] Influenza Virus Vaccine Quad IM, Preserv and ABX Free 6 MO-64 YRS 2021-04-22 00:00:00 Completed [facility] TDAP 2021-04-22 00:00:00 Completed [facility] Influenza Virus Vaccine Quad IM, Preserv and ABX Free 6 MO-64 YRS 2021-04-22 00:00:00 Completed [facility] TDAP 2021-04-22 00:00:00 Completed [facility] Influenza Virus Vaccine Quad IM, Preserv and ABX Free 6 MO-64 YRS 2021-04-22 00:00:00 Completed [facility] TDAP 2021-04-22 00:00:00 Completed [facility] Influenza Virus Vaccine Quad IM, Preserv and ABX Free 6 MO-64 YRS 2021-04-22 00:00:00 Completed [facility] TDAP 2021-04-22 00:00:00 Completed [facility] Influenza Virus Vaccine Quad IM, Preserv and ABX Free 6 MO-64 YRS 2021-04-22 00:00:00 Completed [facility] TDAP 2021-04-22 00:00:00 Completed [facility] Influenza Virus Vaccine Quad IM, Preserv and ABX Free 6 MO-64 YRS 2021-04-22 00:00:00 Completed [facility] TDAP 2021-04-22 00:00:00 Completed [facility] Influenza Virus Vaccine Quad IM, Preserv and ABX Free 6 MO-64 YRS 2021-04-22 00:00:00 Completed [facility] TDAP 2021-04-22 00:00:00 Completed [facility] Influenza Virus Vaccine Quad IM, Preserv and ABX Free 6 MO-64 YRS 2021-04-22 00:00:00 Completed [facility] TDAP 2021-04-22 00:00:00 Completed [facility] Influenza Virus Vaccine Quad IM, Preserv and ABX Free 6 MO-64 YRS 2021-04-22 00:00:00 Completed [facility] TDAP 2021-04-22 00:00:00 Completed [facility] Influenza Virus Vaccine Quad IM, Preserv and ABX Free 6 MO-64 YRS 2021-04-22 00:00:00 Completed [facility] TDAP 2021-04-22 00:00:00 Completed [facility] Influenza Virus Vaccine Quad IM, Preserv and ABX Free 6 MO-64 YRS 2021-04-22 00:00:00 Completed [facility] TDAP 2021-04-22 00:00:00 Completed [facility] Influenza Virus Vaccine Quad IM, Preserv and ABX Free 6 MO-64 YRS 2021-04-22 00:00:00 Completed [facility] TDAP 2021-04-22 00:00:00 Completed [facility] Influenza Virus Vaccine Quad IM, Preserv and ABX Free 6 MO-64 YRS 2021-04-22 00:00:00 Completed [facility] TDAP 2021-04-22 00:00:00 Completed [facility] Influenza Virus Vaccine Quad IM, Preserv and ABX Free 6 MO-64 YRS 2021-04-22 00:00:00 Completed [facility] TDAP 2021-04-22 00:00:00 Completed [facility] Influenza Virus Vaccine Quad IM, Preserv and ABX Free 6 MO-64 YRS 2021-04-22 00:00:00 Completed [facility] TDAP 2021-04-22 00:00:00 Completed [facility] Influenza Virus Vaccine Quad IM, Preserv and ABX Free 6 MO-64 YRS 2021-04-22 00:00:00 Completed [facility] TDAP 2021-04-22 00:00:00 Completed [facility] Influenza Virus Vaccine Quad IM, Preserv and ABX Free 6 MO-64 YRS 2021-04-22 00:00:00 Completed [facility] TDAP 2021-04-22 00:00:00 Completed [facility] Influenza Virus Vaccine Quad IM, Preserv and ABX Free 6 MO-64 YRS 2021-04-22 00:00:00 Completed [facility] TDAP 2021-04-22 00:00:00 Completed [facility] Influenza Virus Vaccine Quad IM, Preserv and ABX Free 6 MO-64 YRS 2021-04-22 00:00:00 Completed [facility] TDAP 2021-04-22 00:00:00 Completed [facility] Influenza Virus Vaccine Quad IM, Preserv and ABX Free 6 MO-64 YRS 2021-04-22 00:00:00 Completed [facility] TDAP 2021-04-22 00:00:00 Completed [facility] Influenza Virus Vaccine Quad IM, Preserv and ABX Free 6 MO-64 YRS 2021-04-22 00:00:00 Completed [facility] TDAP 2021-04-22 00:00:00 Completed [facility] Influenza Virus Vaccine Quad IM, Preserv and ABX Free 6 MO-64 YRS 2021-04-22 00:00:00 Completed [facility] TDAP 2021-04-22 00:00:00 Completed [facility] Influenza Virus Vaccine Quad IM, Preserv and ABX Free 6 MO-64 YRS 2021-04-22 00:00:00 Completed [facility] TDAP 2021-04-22 00:00:00 Completed [facility] Influenza Virus Vaccine Quad IM, Preserv and ABX Free 6 MO-64 YRS 2021-04-22 00:00:00 Completed [facility] TDAP 2021-04-22 00:00:00 Completed [facility] Influenza Virus Vaccine Quad IM, Preserv and ABX Free 6 MO-64 YRS 2021-04-22 00:00:00 Completed [facility] TDAP 2021-04-22 00:00:00 Completed [facility] Influenza Virus Vaccine Quad IM, Preserv and ABX Free 6 MO-64 YRS 2021-04-22 00:00:00 Completed [facility] TDAP 2021-04-22 00:00:00 Completed [facility] Influenza Virus Vaccine Quad IM, Preserv and ABX Free 6 MO-64 YRS 2021-04-22 00:00:00 Completed [facility] TDAP 2021-04-22 00:00:00 Completed [facility] Influenza Virus Vaccine Quad IM, Preserv and ABX Free 6 MO-64 YRS 2021-04-22 00:00:00 Completed [facility] TDAP 2021-04-22 00:00:00 Completed [facility] Influenza Virus Vaccine Quad IM, Preserv and ABX Free 6 MO-64 YRS 2021-04-22 00:00:00 Completed [facility] TDAP 2021-04-22 00:00:00 Completed [facility] Influenza Virus Vaccine Quad IM, Preserv and ABX Free 6 MO-64 YRS 2021-04-22 00:00:00 Completed [facility] TDAP 2021-04-22 00:00:00 Completed [facility] Influenza Virus Vaccine Quad IM, Preserv and ABX Free 6 MO-64 YRS (FLUCELVAX) 2021-04-22 00:00:00 Completed [facility] TDAP 2021-04-22 00:00:00 Completed [facility] Influenza Virus Vaccine Quad IM, Preserv and ABX Free 6 MO-64 YRS (FLUCELVAX) 2021-04-22 00:00:00 Completed [facility] TDAP 2021-04-22 00:00:00 Completed [facility] Influenza Virus Vaccine Quad IM, Preserv and ABX Free 6 MO-64 YRS (FLUCELVAX) 2021-04-22 00:00:00 Completed [facility] TDAP 2021-04-22 00:00:00 Completed [facility] Meningococcal Polysaccharide (groups A, C, Y and W-135) conjugate vaccine (MCV4P) 2021-02-12 00:00:00 Completed [facility] Meningococcal Polysaccharide (groups A, C, Y and W-135) conjugate vaccine (MCV4P) 2021-02-12 00:00:00 Completed [facility] Meningococcal Polysaccharide (groups A, C, Y and W-135) conjugate vaccine (MCV4P) 2021-02-12 00:00:00 Completed [facility] Meningococcal Polysaccharide (groups A, C, Y and W-135) conjugate vaccine (MCV4P) 2021-02-12 00:00:00 Completed [facility] Meningococcal Polysaccharide (groups A, C, Y and W-135) conjugate vaccine (MCV4P) 2021-02-12 00:00:00 Completed [facility] Meningococcal Polysaccharide (groups A, C, Y and W-135) conjugate vaccine (MCV4P) 2021-02-12 00:00:00 Completed [facility] Meningococcal Polysaccharide (groups A, C, Y and W-135) conjugate vaccine (MCV4P) 2021-02-12 00:00:00 Completed [facility] Meningococcal Polysaccharide (groups A, C, Y and W-135) conjugate vaccine (MCV4P) 2021-02-12 00:00:00 Completed [facility] Meningococcal Polysaccharide (groups A, C, Y and W-135) conjugate vaccine (MCV4P) 2021-02-12 00:00:00 Completed [facility] Meningococcal Polysaccharide (groups A, C, Y and W-135) conjugate vaccine (MCV4P) 2021-02-12 00:00:00 Completed [facility] Meningococcal Polysaccharide (groups A, C, Y and W-135) conjugate vaccine (MCV4P) 2021-02-12 00:00:00 Completed [facility] Meningococcal Polysaccharide (groups A, C, Y and W-135) conjugate vaccine (MCV4P) 2021-02-12 00:00:00 Completed [facility] Meningococcal Polysaccharide (groups A, C, Y and W-135) conjugate vaccine (MCV4P) 2021-02-12 00:00:00 Completed [facility] Meningococcal Polysaccharide (groups A, C, Y and W-135) conjugate vaccine (MCV4P) 2021-02-12 00:00:00 Completed [facility] Meningococcal Polysaccharide (groups A, C, Y and W-135) conjugate vaccine (MCV4P) 2021-02-12 00:00:00 Completed [facility] Meningococcal Polysaccharide (groups A, C, Y and W-135) conjugate vaccine (MCV4P) 2021-02-12 00:00:00 Completed [facility] Meningococcal Polysaccharide (groups A, C, Y and W-135) conjugate vaccine (MCV4P) 2021-02-12 00:00:00 Completed [facility] Meningococcal Polysaccharide (groups A, C, Y and W-135) conjugate vaccine (MCV4P) 2021-02-12 00:00:00 Completed [facility] Meningococcal Polysaccharide (groups A, C, Y and W-135) conjugate vaccine (MCV4P) 2021-02-12 00:00:00 Completed [facility] Meningococcal Polysaccharide (groups A, C, Y and W-135) conjugate vaccine (MCV4P) 2021-02-12 00:00:00 Completed [facility] Meningococcal Polysaccharide (groups A, C, Y and W-135) conjugate vaccine (MCV4P) 2021-02-12 00:00:00 Completed [facility] Meningococcal Polysaccharide (groups A, C, Y and W-135) conjugate vaccine (MCV4P) 2021-02-12 00:00:00 Completed [facility] Meningococcal Polysaccharide (groups A, C, Y and W-135) conjugate vaccine (MCV4P) 2021-02-12 00:00:00 Completed [facility] Meningococcal Polysaccharide (groups A, C, Y and W-135) conjugate vaccine (MCV4P) 2021-02-12 00:00:00 Completed [facility] Meningococcal Polysaccharide (groups A, C, Y and W-135) conjugate vaccine (MCV4P) 2021-02-12 00:00:00 Completed [facility] Meningococcal Polysaccharide (groups A, C, Y and W-135) conjugate vaccine (MCV4P) 2021-02-12 00:00:00 Completed [facility] Meningococcal Polysaccharide (groups A, C, Y and W-135) conjugate vaccine (MCV4P) 2021-02-12 00:00:00 Completed [facility] Meningococcal Polysaccharide (groups A, C, Y and W-135) conjugate vaccine (MCV4P) 2021-02-12 00:00:00 Completed [facility] Meningococcal Polysaccharide (groups A, C, Y and W-135) conjugate vaccine (MCV4P) 2021-02-12 00:00:00 Completed [facility] SARS-COV-2 COVID-19 PFIZER VACCINE 2020-09-19 00:00:00 Completed [facility] SARS-COV-2 COVID-19 PFIZER VACCINE 2020-09-19 00:00:00 Completed [facility] SARS-COV-2 COVID-19 PFIZER VACCINE 2020-09-19 00:00:00 Completed [facility] SARS-COV-2 COVID-19 PFIZER VACCINE 2020-09-19 00:00:00 Completed [facility] SARS-COV-2 COVID-19 PFIZER VACCINE 2020-09-19 00:00:00 Completed [facility] SARS-COV-2 COVID-19 PFIZER VACCINE 2020-09-19 00:00:00 Completed [facility] SARS-COV-2 COVID-19 PFIZER VACCINE 2020-09-19 00:00:00 Completed [facility] SARS-COV-2 COVID-19 PFIZER VACCINE 2020-09-19 00:00:00 Completed [facility] SARS-COV-2 COVID-19 PFIZER VACCINE 2020-09-19 00:00:00 Completed [facility] SARS-COV-2 COVID-19 PFIZER VACCINE 2020-09-19 00:00:00 Completed [facility] SARS-COV-2 COVID-19 PFIZER VACCINE 2020-09-19 00:00:00 Completed [facility] SARS-COV-2 COVID-19 PFIZER VACCINE 2020-09-19 00:00:00 Completed [facility] SARS-COV-2 COVID-19 PFIZER VACCINE 2020-09-19 00:00:00 Completed [facility] SARS-COV-2 COVID-19 PFIZER VACCINE 2020-09-19 00:00:00 Completed [facility] SARS-COV-2 COVID-19 PFIZER VACCINE 2020-09-19 00:00:00 Completed [facility] SARS-COV-2 COVID-19 PFIZER VACCINE 2020-09-19 00:00:00 Completed [facility] SARS-COV-2 COVID-19 PFIZER VACCINE 2020-09-19 00:00:00 Completed [facility] SARS-COV-2 COVID-19 PFIZER VACCINE 2020-09-19 00:00:00 Completed [facility] SARS-COV-2 COVID-19 PFIZER VACCINE 2020-09-19 00:00:00 Completed [facility] SARS-COV-2 COVID-19 PFIZER VACCINE 2020-09-19 00:00:00 Completed [facility] SARS-COV-2 COVID-19 PFIZER VACCINE 2020-09-19 00:00:00 Completed [facility] SARS-COV-2 COVID-19 PFIZER VACCINE 2020-09-19 00:00:00 Completed [facility] SARS-COV-2 COVID-19 PFIZER VACCINE 2020-09-19 00:00:00 Completed [facility] SARS-COV-2 COVID-19 PFIZER VACCINE 2020-09-19 00:00:00 Completed [facility] SARS-COV-2 COVID-19 PFIZER VACCINE 2020-09-19 00:00:00 Completed [facility] SARS-COV-2 COVID-19 PFIZER VACCINE 2020-09-19 00:00:00 Completed [facility] SARS-COV-2 COVID-19 PFIZER VACCINE 2020-09-19 00:00:00 Completed [facility] SARS-COV-2 COVID-19 PFIZER VACCINE 2020-09-19 00:00:00 Completed [facility] SARS-COV-2 COVID-19 PFIZER VACCINE 2020-09-19 00:00:00 Completed [facility] SARS-COV-2 COVID-19 PFIZER VACCINE 2020-09-19 00:00:00 Completed [facility] SARS-COV-2 COVID-19 PFIZER VACCINE 2020-09-19 00:00:00 Completed [facility] SARS-COV-2 COVID-19 PFIZER VACCINE 2020-09-19 00:00:00 Completed [facility] SARS-COV-2 COVID-19 PFIZER VACCINE 2020-09-19 00:00:00 Completed [facility] SARS-COV-2 COVID-19 PFIZER VACCINE 2020-09-19 00:00:00 Completed [facility] SARS-COV-2 COVID-19 PFIZER VACCINE 2020-09-19 00:00:00 Completed [facility] SARS-COV-2 COVID-19 PFIZER VACCINE 2020-09-19 00:00:00 Completed [facility] SARS-COV-2 COVID-19 PFIZER VACCINE 2020-09-19 00:00:00 Completed [facility] SARS-COV-2 COVID-19 PFIZER VACCINE 2020-09-19 00:00:00 Completed [facility] SARS-COV-2 COVID-19 PFIZER VACCINE 2020-09-19 00:00:00 Completed [facility] SARS-COV-2 COVID-19 PFIZER VACCINE 2020-09-19 00:00:00 Completed [facility] SARS-COV-2 COVID-19 PFIZER VACCINE 2020-09-19 00:00:00 Completed [facility] SARS-COV-2 COVID-19 PFIZER VACCINE 2020-09-19 00:00:00 Completed [facility] SARS-COV-2 COVID-19 PFIZER VACCINE 2020-09-19 00:00:00 Completed [facility] SARS-COV-2 COVID-19 PFIZER VACCINE 2020-09-19 00:00:00 Completed [facility] SARS-COV-2 COVID-19 PFIZER VACCINE 2020-09-19 00:00:00 Completed [facility] SARS-COV-2 COVID-19 PFIZER VACCINE 2020-09-19 00:00:00 Completed [facility] SARS-COV-2 COVID-19 PFIZER VACCINE 2020-08-29 00:00:00 Completed [facility] SARS-COV-2 COVID-19 PFIZER VACCINE 2020-08-29 00:00:00 Completed [facility] SARS-COV-2 COVID-19 PFIZER VACCINE 2020-08-29 00:00:00 Completed [facility] SARS-COV-2 COVID-19 PFIZER VACCINE 2020-08-29 00:00:00 Completed [facility] SARS-COV-2 COVID-19 PFIZER VACCINE 2020-08-29 00:00:00 Completed [facility] SARS-COV-2 COVID-19 PFIZER VACCINE 2020-08-29 00:00:00 Completed [facility] SARS-COV-2 COVID-19 PFIZER VACCINE 2020-08-29 00:00:00 Completed [facility] SARS-COV-2 COVID-19 PFIZER VACCINE 2020-08-29 00:00:00 Completed [facility] SARS-COV-2 COVID-19 PFIZER VACCINE 2020-08-29 00:00:00 Completed [facility] SARS-COV-2 COVID-19 PFIZER VACCINE 2020-08-29 00:00:00 Completed [facility] SARS-COV-2 COVID-19 PFIZER VACCINE 2020-08-29 00:00:00 Completed [facility] SARS-COV-2 COVID-19 PFIZER VACCINE 2020-08-29 00:00:00 Completed [facility] SARS-COV-2 COVID-19 PFIZER VACCINE 2020-08-29 00:00:00 Completed [facility] SARS-COV-2 COVID-19 PFIZER VACCINE 2020-08-29 00:00:00 Completed [facility] SARS-COV-2 COVID-19 PFIZER VACCINE 2020-08-29 00:00:00 Completed [facility] SARS-COV-2 COVID-19 PFIZER VACCINE 2020-08-29 00:00:00 Completed [facility] SARS-COV-2 COVID-19 PFIZER VACCINE 2020-08-29 00:00:00 Completed [facility] SARS-COV-2 COVID-19 PFIZER VACCINE 2020-08-29 00:00:00 Completed [facility] SARS-COV-2 COVID-19 PFIZER VACCINE 2020-08-29 00:00:00 Completed [facility] SARS-COV-2 COVID-19 PFIZER VACCINE 2020-08-29 00:00:00 Completed [facility] SARS-COV-2 COVID-19 PFIZER VACCINE 2020-08-29 00:00:00 Completed [facility] SARS-COV-2 COVID-19 PFIZER VACCINE 2020-08-29 00:00:00 Completed [facility] SARS-COV-2 COVID-19 PFIZER VACCINE 2020-08-29 00:00:00 Completed [facility] SARS-COV-2 COVID-19 PFIZER VACCINE 2020-08-29 00:00:00 Completed [facility] SARS-COV-2 COVID-19 PFIZER VACCINE 2020-08-29 00:00:00 Completed [facility] SARS-COV-2 COVID-19 PFIZER VACCINE 2020-08-29 00:00:00 Completed [facility] SARS-COV-2 COVID-19 PFIZER VACCINE 2020-08-29 00:00:00 Completed [facility] SARS-COV-2 COVID-19 PFIZER VACCINE 2020-08-29 00:00:00 Completed [facility] SARS-COV-2 COVID-19 PFIZER VACCINE 2020-08-29 00:00:00 Completed [facility] SARS-COV-2 COVID-19 PFIZER VACCINE 2020-08-29 00:00:00 Completed [facility] SARS-COV-2 COVID-19 PFIZER VACCINE 2020-08-29 00:00:00 Completed [facility] SARS-COV-2 COVID-19 PFIZER VACCINE 2020-08-29 00:00:00 Completed [facility] SARS-COV-2 COVID-19 PFIZER VACCINE 2020-08-29 00:00:00 Completed [facility] SARS-COV-2 COVID-19 PFIZER VACCINE 2020-08-29 00:00:00 Completed [facility] SARS-COV-2 COVID-19 PFIZER VACCINE 2020-08-29 00:00:00 Completed [facility] SARS-COV-2 COVID-19 PFIZER VACCINE 2020-08-29 00:00:00 Completed [facility] SARS-COV-2 COVID-19 PFIZER VACCINE 2020-08-29 00:00:00 Completed [facility] SARS-COV-2 COVID-19 PFIZER VACCINE 2020-08-29 00:00:00 Completed [facility] SARS-COV-2 COVID-19 PFIZER VACCINE 2020-08-29 00:00:00 Completed [facility] SARS-COV-2 COVID-19 PFIZER VACCINE 2020-08-29 00:00:00 Completed [facility] SARS-COV-2 COVID-19 PFIZER VACCINE 2020-08-29 00:00:00 Completed [facility] SARS-COV-2 COVID-19 PFIZER VACCINE 2020-08-29 00:00:00 Completed [facility] SARS-COV-2 COVID-19 PFIZER VACCINE 2020-08-29 00:00:00 Completed [facility] SARS-COV-2 COVID-19 PFIZER VACCINE 2020-08-29 00:00:00 Completed [facility] SARS-COV-2 COVID-19 PFIZER VACCINE 2020-08-29 00:00:00 Completed [facility] SARS-COV-2 COVID-19 PFIZER VACCINE 2020-08-29 00:00:00 Completed [facility] SARS-COV-2 COVID-19 PFIZER VACCINE Unknown Completed [facility] Influenza Virus Vaccine Quad IM, Preserv and ABX Free 6 MO-64 YRS (FLUCELVAX) Unknown Completed [facility] TDAP Unknown Completed [facility] Meningococcal Polysaccharide (groups A, C, Y and W-135) conjugate vaccine (MCV4P) Unknown Completed [facility] SARS-COV-2 COVID-19 PFIZER VACCINE Unknown Completed [facility] Influenza Virus Vaccine Quad IM, Preserv and ABX Free 6 MO-64 YRS (FLUCELVAX) Unknown Completed [facility] TDAP Unknown Completed [facility] Meningococcal Polysaccharide (groups A, C, Y and W-135) conjugate vaccine (MCV4P) Unknown Completed [facility] SARS-COV-2 COVID-19 PFIZER VACCINE Unknown Completed [facility] Influenza Virus Vaccine Quad IM, Preserv and ABX Free 6 MO-64 YRS (FLUCELVAX) Unknown Completed [facility] TDAP Unknown Completed [facility] Meningococcal Polysaccharide (groups A, C, Y and W-135) conjugate vaccine (MCV4P) Unknown Completed [facility] SARS-COV-2 COVID-19 PFIZER VACCINE Unknown Completed [facility] Influenza Virus Vaccine Quad IM, Preserv and ABX Free 6 MO-64 YRS (FLUCELVAX) Unknown Completed [facility] TDAP Unknown Completed [facility] Meningococcal Polysaccharide (groups A, C, Y and W-135) conjugate vaccine (MCV4P) Unknown Completed [facility] SARS-COV-2 COVID-19 PFIZER VACCINE Unknown Completed [facility] Influenza Virus Vaccine Quad IM, Preserv and ABX Free 6 MO-64 YRS (FLUCELVAX) Unknown Completed [facility] TDAP Unknown Completed [facility] Meningococcal Polysaccharide (groups A, C, Y and W-135) conjugate vaccine (MCV4P) Unknown Completed [facility] SARS-COV-2 COVID-19 PFIZER VACCINE Unknown Completed [facility] Influenza Virus Vaccine Quad IM, Preserv and ABX Free 6 MO-64 YRS (FLUCELVAX) Unknown Completed [facility] TDAP Unknown Completed [facility] Meningococcal Polysaccharide (groups A, C, Y and W-135) conjugate vaccine (MCV4P) Unknown Completed [facility] SARS-COV-2 COVID-19 PFIZER VACCINE Unknown Completed [facility] Influenza Virus Vaccine Quad IM, Preserv and ABX Free 6 MO-64 YRS (FLUCELVAX) Unknown Completed [facility] TDAP Unknown Completed [facility] Meningococcal Polysaccharide (groups A, C, Y and W-135) conjugate vaccine (MCV4P) Unknown Completed [facility] SARS-COV-2 COVID-19 PFIZER VACCINE Unknown Completed [facility] Influenza Virus Vaccine Quad IM, Preserv and ABX Free 6 MO-64 YRS (FLUCELVAX) Unknown Completed [facility] TDAP Unknown Completed [facility] Meningococcal Polysaccharide (groups A, C, Y and W-135) conjugate vaccine (MCV4P) Unknown Completed [facility] SARS-COV-2 COVID-19 PFIZER VACCINE Unknown Completed [facility] Influenza Virus Vaccine Quad IM, Preserv and ABX Free 6 MO-64 YRS (FLUCELVAX) Unknown Completed [facility] TDAP Unknown Completed [facility] Meningococcal Polysaccharide (groups A, C, Y and W-135) conjugate vaccine (MCV4P) Unknown Completed [facility] TDAP Unknown Completed [facility] Meningococcal Polysaccharide (groups A, C, Y and W-135) conjugate vaccine (MCV4P) Unknown Completed [facility] SARS-COV-2 COVID-19 PFIZER VACCINE Unknown Completed [facility] Influenza Virus Vaccine Quad IM, Preserv and ABX Free 6 MO-64 YRS (FLUCELVAX) Unknown Completed [facility] SARS-COV-2 COVID-19 PFIZER VACCINE Unknown Completed [facility] Influenza Virus Vaccine Quad IM, Preserv and ABX Free 6 MO-64 YRS (FLUCELVAX) Unknown Completed [facility] TDAP Unknown Completed [facility] Meningococcal Polysaccharide (groups A, C, Y and W-135) conjugate vaccine (MCV4P) Unknown Completed [facility] SARS-COV-2 COVID-19 PFIZER VACCINE Unknown Completed [facility] Influenza Virus Vaccine Quad IM, Preserv and ABX Free 6 MO-64 YRS (FLUCELVAX) Unknown Completed [facility] TDAP Unknown Completed [facility] Meningococcal Polysaccharide (groups A, C, Y and W-135) conjugate vaccine (MCV4P) Unknown Completed [facility] SARS-COV-2 COVID-19 PFIZER VACCINE Unknown Completed [facility] Influenza Virus Vaccine Quad IM, Preserv and ABX Free 6 MO-64 YRS (FLUCELVAX) Unknown Completed [facility] TDAP Unknown Completed [facility] Meningococcal Polysaccharide (groups A, C, Y and W-135) conjugate vaccine (MCV4P) Unknown Completed [facility] SARS-COV-2 COVID-19 PFIZER VACCINE Unknown Completed [facility] Influenza Virus Vaccine Quad IM, Preserv and ABX Free 6 MO-64 YRS (FLUCELVAX) Unknown Completed [facility] TDAP Unknown Completed [facility] Meningococcal Polysaccharide (groups A, C, Y and W-135) conjugate vaccine (MCV4P) Unknown Completed [facility] SARS-COV-2 COVID-19 PFIZER VACCINE Unknown Completed [facility] Influenza Virus Vaccine Quad IM, Preserv and ABX Free 6 MO-64 YRS (FLUCELVAX) Unknown Completed [facility] TDAP Unknown Completed [facility] Meningococcal Polysaccharide (groups A, C, Y and W-135) conjugate vaccine (MCV4P) Unknown Completed [facility] SARS-COV-2 COVID-19 PFIZER VACCINE Unknown Completed [facility] Influenza Virus Vaccine Quad IM, Preserv and ABX Free 6 MO-64 YRS (FLUCELVAX) Unknown Completed [facility] TDAP Unknown Completed [facility] Meningococcal Polysaccharide (groups A, C, Y and W-135) conjugate vaccine (MCV4P) Unknown Completed [facility] SARS-COV-2 COVID-19 PFIZER VACCINE Unknown Completed [facility] Influenza Virus Vaccine Quad IM, Preserv and ABX Free 6 MO-64 YRS (FLUCELVAX) Unknown Completed [facility] TDAP Unknown Completed [facility] Meningococcal Polysaccharide (groups A, C, Y and W-135) conjugate vaccine (MCV4P) Unknown Completed [facility] SARS-COV-2 COVID-19 PFIZER VACCINE Unknown Completed [facility] Influenza Virus Vaccine Quad IM, Preserv and ABX Free 6 MO-64 YRS (FLUCELVAX) Unknown Completed [facility] TDAP Unknown Completed [facility] Meningococcal Polysaccharide (groups A, C, Y and W-135) conjugate vaccine (MCV4P) Unknown Completed [facility] SARS-COV-2 COVID-19 PFIZER VACCINE Unknown Completed [facility] Influenza Virus Vaccine Quad IM, Preserv and ABX Free 6 MO-64 YRS (FLUCELVAX) Unknown Completed [facility] TDAP Unknown Completed [facility] Meningococcal Polysaccharide (groups A, C, Y and W-135) conjugate vaccine (MCV4P) Unknown Completed [facility] SARS-COV-2 COVID-19 PFIZER VACCINE Unknown Completed [facility] Influenza Virus Vaccine Quad IM, Preserv and ABX Free 6 MO-64 YRS (FLUCELVAX) Unknown Completed [facility] TDAP Unknown Completed [facility] Meningococcal Polysaccharide (groups A, C, Y and W-135) conjugate vaccine (MCV4P) Unknown Completed [facility] SARS-COV-2 COVID-19 PFIZER VACCINE Unknown Completed [facility] Influenza Virus Vaccine Quad IM, Preserv and ABX Free 6 MO-64 YRS (FLUCELVAX) Unknown Completed [facility] TDAP Unknown Completed [facility] Meningococcal Polysaccharide (groups A, C, Y and W-135) conjugate vaccine (MCV4P) Unknown Completed [facility] SARS-COV-2 COVID-19 PFIZER VACCINE Unknown Completed [facility] Influenza Virus Vaccine Quad IM, Preserv and ABX Free 6 MO-64 YRS (FLUCELVAX) Unknown Completed [facility] TDAP Unknown Completed [facility] Meningococcal Polysaccharide (groups A, C, Y and W-135) conjugate vaccine (MCV4P) Unknown Completed [facility] SARS-COV-2 COVID-19 PFIZER VACCINE Unknown Completed [facility] Influenza Virus Vaccine Quad IM, Preserv and ABX Free 6 MO-64 YRS (FLUCELVAX) Unknown Completed [facility] TDAP Unknown Completed [facility] Meningococcal Polysaccharide (groups A, C, Y and W-135) conjugate vaccine (MCV4P) Unknown Completed [facility] SARS-COV-2 COVID-19 PFIZER VACCINE Unknown Completed [facility] Influenza Virus Vaccine Quad IM, Preserv and ABX Free 6 MO-64 YRS (FLUCELVAX) Unknown Completed [facility] TDAP Unknown Completed [facility] Meningococcal Polysaccharide (groups A, C, Y and W-135) conjugate vaccine (MCV4P) Unknown Completed [facility] TDAP Unknown Completed [facility] Meningococcal Polysaccharide (groups A, C, Y and W-135) conjugate vaccine (MCV4P) Unknown Completed [facility] SARS-COV-2 COVID-19 PFIZER VACCINE Unknown Completed [facility] Influenza Virus Vaccine Quad IM, Preserv and ABX Free 6 MO-64 YRS (FLUCELVAX) Unknown Completed [facility] TDAP Unknown Completed [facility] Meningococcal Polysaccharide (groups A, C, Y and W-135) conjugate vaccine (MCV4P) Unknown Completed [facility] SARS-COV-2 COVID-19 PFIZER VACCINE Unknown Completed [facility] Influenza Virus Vaccine Quad IM, Preserv and ABX Free 6 MO-64 YRS (FLUCELVAX) Unknown Completed [facility] SARS-COV-2 COVID-19 PFIZER VACCINE Unknown Completed [facility] Influenza Virus Vaccine Quad IM, Preserv and ABX Free 6 MO-64 YRS (FLUCELVAX) Unknown Completed [facility] TDAP Unknown Completed [facility] Meningococcal Polysaccharide (groups A, C, Y and W-135) conjugate vaccine (MCV4P) Unknown Completed [facility] SARS-COV-2 COVID-19 PFIZER VACCINE Unknown Completed [facility] Influenza Virus Vaccine Quad IM, Preserv and ABX Free 6 MO-64 YRS (FLUCELVAX) Unknown Completed [facility] TDAP Unknown Completed [facility] Meningococcal Polysaccharide (groups A, C, Y and W-135) conjugate vaccine (MCV4P) Unknown Completed [facility] SARS-COV-2 COVID-19 PFIZER VACCINE Unknown Completed [facility] Influenza Virus Vaccine Quad IM, Preserv and ABX Free 6 MO-64 YRS (FLUCELVAX) Unknown Completed [facility] TDAP Unknown Completed [facility] Meningococcal Polysaccharide (groups A, C, Y and W-135) conjugate vaccine (MCV4P) Unknown Completed [facility] SARS-COV-2 COVID-19 PFIZER VACCINE Unknown Completed [facility] Influenza Virus Vaccine Quad IM, Preserv and ABX Free 6 MO-64 YRS (FLUCELVAX) Unknown Completed [facility] TDAP Unknown Completed [facility] Meningococcal Polysaccharide (groups A, C, Y and W-135) conjugate vaccine (MCV4P) Unknown Completed [facility] SARS-COV-2 COVID-19 PFIZER VACCINE Unknown Completed [facility] Influenza Virus Vaccine Quad IM, Preserv and ABX Free 6 MO-64 YRS (FLUCELVAX) Unknown Completed [facility] TDAP Unknown Completed [facility] Meningococcal Polysaccharide (groups A, C, Y and W-135) conjugate vaccine (MCV4P) Unknown Completed [facility] TDAP Unknown Completed [facility] Meningococcal Polysaccharide (groups A, C, Y and W-135) conjugate vaccine (MCV4P) Unknown Completed [facility] SARS-COV-2 COVID-19 PFIZER VACCINE Unknown Completed [facility] Influenza Virus Vaccine Quad IM, Preserv and ABX Free 6 MO-64 YRS (FLUCELVAX) Unknown Completed [facility] TDAP Unknown Completed [facility] Meningococcal Polysaccharide (groups A, C, Y and W-135) conjugate vaccine (MCV4P) Unknown Completed [facility] SARS-COV-2 COVID-19 PFIZER VACCINE Unknown Completed [facility] Influenza Virus Vaccine Quad IM, Preserv and ABX Free 6 MO-64 YRS (FLUCELVAX) Unknown Completed [facility] SARS-COV-2 COVID-19 PFIZER VACCINE Unknown Completed [facility] Influenza Virus Vaccine Quad IM, Preserv and ABX Free 6 MO-64 YRS (FLUCELVAX) Unknown Completed [facility] TDAP Unknown Completed [facility] Meningococcal Polysaccharide (groups A, C, Y and W-135) conjugate vaccine (MCV4P) Unknown Completed [facility] SARS-COV-2 COVID-19 PFIZER VACCINE Unknown Completed [facility] Influenza Virus Vaccine Quad IM, Preserv and ABX Free 6 MO-64 YRS (FLUCELVAX) Unknown Completed [facility] TDAP Unknown Completed [facility] Meningococcal Polysaccharide (groups A, C, Y and W-135) conjugate vaccine (MCV4P) Unknown Completed [facility] SARS-COV-2 COVID-19 PFIZER VACCINE Unknown Completed [facility] Influenza Virus Vaccine Quad IM, Preserv and ABX Free 6 MO-64 YRS (FLUCELVAX) Unknown Completed [facility] TDAP Unknown Completed [facility] Meningococcal Polysaccharide (groups A, C, Y and W-135) conjugate vaccine (MCV4P) Unknown Completed [facility] SARS-COV-2 COVID-19 PFIZER VACCINE Unknown Completed [facility] Influenza Virus Vaccine Quad IM, Preserv and ABX Free 6 MO-64 YRS (FLUCELVAX) Unknown Completed [facility] TDAP Unknown Completed [facility] Meningococcal Polysaccharide (groups A, C, Y and W-135) conjugate vaccine (MCV4P) Unknown Completed [facility] TDAP Unknown Completed [facility] Meningococcal Polysaccharide (groups A, C, Y and W-135) conjugate vaccine (MCV4P) Unknown Completed [facility] SARS-COV-2 COVID-19 PFIZER VACCINE Unknown Completed [facility] Influenza Virus Vaccine Quad IM, Preserv and ABX Free 6 MO-64 YRS (FLUCELVAX) Unknown Completed [facility] SARS-COV-2 COVID-19 PFIZER VACCINE Unknown Completed [facility] Influenza Virus Vaccine Quad IM, Preserv and ABX Free 6 MO-64 YRS (FLUCELVAX) Unknown Completed [facility] TDAP Unknown Completed [facility] Meningococcal Polysaccharide (groups A, C, Y and W-135) conjugate vaccine (MCV4P) Unknown Completed [facility] TDAP Unknown Completed [facility] Meningococcal Polysaccharide (groups A, C, Y and W-135) conjugate vaccine (MCV4P) Unknown Completed [facility] SARS-COV-2 COVID-19 PFIZER VACCINE Unknown Completed [facility] Influenza Virus Vaccine Quad IM, Preserv and ABX Free 6 MO-64 YRS (FLUCELVAX) Unknown Completed [facility] SARS-COV-2 COVID-19 PFIZER VACCINE Unknown Completed [facility] Influenza Virus Vaccine Quad IM, Preserv and ABX Free 6 MO-64 YRS (FLUCELVAX) Unknown Completed [facility] TDAP Unknown Completed [facility] Meningococcal Polysaccharide (groups A, C, Y and W-135) conjugate vaccine (MCV4P) Unknown Completed [facility] SARS-COV-2 COVID-19 PFIZER VACCINE Unknown Completed [facility] Influenza Virus Vaccine Quad IM, Preserv and ABX Free 6 MO-64 YRS (FLUCELVAX) Unknown Completed [facility] TDAP Unknown Completed [facility] Meningococcal Polysaccharide (groups A, C, Y and W-135) conjugate vaccine (MCV4P) Unknown Completed [facility] SARS-COV-2 COVID-19 PFIZER VACCINE Unknown Completed [facility] Influenza Virus Vaccine Quad IM, Preserv and ABX Free 6 MO-64 YRS (FLUCELVAX) Unknown Completed [facility] TDAP Unknown Completed [facility] Meningococcal Polysaccharide (groups A, C, Y and W-135) conjugate vaccine (MCV4P) Unknown Completed [facility] SARS-COV-2 COVID-19 PFIZER VACCINE Unknown Completed [facility] Influenza Virus Vaccine Quad IM, Preserv and ABX Free 6 MO-64 YRS (FLUCELVAX) Unknown Completed [facility] TDAP Unknown Completed [facility] Meningococcal Polysaccharide (groups A, C, Y and W-135) conjugate vaccine (MCV4P) Unknown Completed [facility] SARS-COV-2 COVID-19 PFIZER VACCINE Unknown Completed [facility] Influenza Virus Vaccine Quad IM, Preserv and ABX Free 6 MO-64 YRS (FLUCELVAX) Unknown Completed [facility] TDAP Unknown Completed [facility] Meningococcal Polysaccharide (groups A, C, Y and W-135) conjugate vaccine (MCV4P) Unknown Completed [facility] SARS-COV-2 COVID-19 PFIZER VACCINE Unknown Completed [facility] Influenza Virus Vaccine Quad IM, Preserv and ABX Free 6 MO-64 YRS (FLUCELVAX) Unknown Completed [facility] TDAP Unknown Completed [facility] Meningococcal Polysaccharide (groups A, C, Y and W-135) conjugate vaccine (MCV4P) Unknown Completed [facility] SARS-COV-2 COVID-19 PFIZER VACCINE Unknown Completed [facility] Influenza Virus Vaccine Quad IM, Preserv and ABX Free 6 MO-64 YRS (FLUCELVAX) Unknown Completed [facility] TDAP Unknown Completed [facility] Meningococcal Polysaccharide (groups A, C, Y and W-135) conjugate vaccine (MCV4P) Unknown Completed [facility] SARS-COV-2 COVID-19 PFIZER VACCINE Unknown Completed [facility] Influenza Virus Vaccine Quad IM, Preserv and ABX Free 6 MO-64 YRS (FLUCELVAX) Unknown Completed [facility] TDAP Unknown Completed [facility] Meningococcal Polysaccharide (groups A, C, Y and W-135) conjugate vaccine (MCV4P) Unknown Completed [facility] TDAP Unknown Completed [facility] Meningococcal Polysaccharide (groups A, C, Y and W-135) conjugate vaccine (MCV4P) Unknown Completed [facility] SARS-COV-2 COVID-19 PFIZER VACCINE Unknown Completed [facility] Influenza Virus Vaccine Quad IM, Preserv and ABX Free 6 MO-64 YRS (FLUCELVAX) Unknown Completed [facility] SARS-COV-2 COVID-19 PFIZER VACCINE Unknown Completed [facility] Influenza Virus Vaccine Quad IM, Preserv and ABX Free 6 MO-64 YRS (FLUCELVAX) Unknown Completed [facility] TDAP Unknown Completed [facility] Meningococcal Polysaccharide (groups A, C, Y and W-135) conjugate vaccine (MCV4P) Unknown Completed [facility] SARS-COV-2 COVID-19 PFIZER VACCINE Unknown Completed [facility] Influenza Virus Vaccine Quad IM, Preserv and ABX Free 6 MO-64 YRS (FLUCELVAX) Unknown Completed [facility] TDAP Unknown Completed [facility] Meningococcal Polysaccharide (groups A, C, Y and W-135) conjugate vaccine (MCV4P) Unknown Completed [facility] SARS-COV-2 COVID-19 PFIZER VACCINE Unknown Completed [facility] Influenza Virus Vaccine Quad IM, Preserv and ABX Free 6 MO-64 YRS (FLUCELVAX) Unknown Completed [facility] TDAP Unknown Completed [facility] Meningococcal Polysaccharide (groups A, C, Y and W-135) conjugate vaccine (MCV4P) Unknown Completed [facility] SARS-COV-2 COVID-19 PFIZER VACCINE Unknown Completed [facility] Influenza Virus Vaccine Quad IM, Preserv and ABX Free 6 MO-64 YRS (FLUCELVAX) Unknown Completed [facility] TDAP Unknown Completed [facility] Meningococcal Polysaccharide (groups A, C, Y and W-135) conjugate vaccine (MCV4P) Unknown Completed [facility] SARS-COV-2 COVID-19 PFIZER VACCINE Unknown Completed [facility] Influenza Virus Vaccine Quad IM, Preserv and ABX Free 6 MO-64 YRS (FLUCELVAX) Unknown Completed [facility] TDAP Unknown Completed [facility] Meningococcal Polysaccharide (groups A, C, Y and W-135) conjugate vaccine (MCV4P) Unknown Completed [facility] SARS-COV-2 COVID-19 PFIZER VACCINE Unknown Completed [facility] Influenza Virus Vaccine Quad IM, Preserv and ABX Free 6 MO-64 YRS (FLUCELVAX) Unknown Completed [facility] TDAP Unknown Completed [facility] Meningococcal Polysaccharide (groups A, C, Y and W-135) conjugate vaccine (MCV4P) Unknown Completed [facility] SARS-COV-2 COVID-19 PFIZER VACCINE Unknown Completed [facility] Influenza Virus Vaccine Quad IM, Preserv and ABX Free 6 MO-64 YRS (FLUCELVAX) Unknown Completed [facility] TDAP Unknown Completed [facility] Meningococcal Polysaccharide (groups A, C, Y and W-135) conjugate vaccine (MCV4P) Unknown Completed [facility] SARS-COV-2 COVID-19 PFIZER VACCINE Unknown Completed [facility] Influenza Virus Vaccine Quad IM, Preserv and ABX Free 6 MO-64 YRS (FLUCELVAX) Unknown Completed [facility] TDAP Unknown Completed [facility] Meningococcal Polysaccharide (groups A, C, Y and W-135) conjugate vaccine (MCV4P) Unknown Completed [facility] SARS-COV-2 COVID-19 PFIZER VACCINE Unknown Completed [facility] Influenza Virus Vaccine Quad IM, Preserv and ABX Free 6 MO-64 YRS (FLUCELVAX) Unknown Completed [facility] TDAP Unknown Completed [facility] Meningococcal Polysaccharide (groups A, C, Y and W-135) conjugate vaccine (MCV4P) Unknown Completed [facility] SARS-COV-2 COVID-19 PFIZER VACCINE Unknown Completed [facility] Influenza Virus Vaccine Quad IM, Preserv and ABX Free 6 MO-64 YRS (FLUCELVAX) Unknown Completed [facility] TDAP Unknown Completed [facility] Meningococcal Polysaccharide (groups A, C, Y and W-135) conjugate vaccine (MCV4P) Unknown Completed [facility] SARS-COV-2 COVID-19 PFIZER VACCINE Unknown Completed [facility] Influenza Virus Vaccine Quad IM, Preserv and ABX Free 6 MO-64 YRS (FLUCELVAX) Unknown Completed [facility] TDAP Unknown Completed [facility] Meningococcal Polysaccharide (groups A, C, Y and W-135) conjugate vaccine (MCV4P) Unknown Completed [facility] SARS-COV-2 COVID-19 PFIZER VACCINE Unknown Completed [facility] Influenza Virus Vaccine Quad IM, Preserv and ABX Free 6 MO-64 YRS (FLUCELVAX) Unknown Completed [facility] TDAP Unknown Completed [facility] Meningococcal Polysaccharide (groups A, C, Y and W-135) conjugate vaccine (MCV4P) Unknown Completed [facility] SARS-COV-2 COVID-19 PFIZER VACCINE Unknown Completed [facility] Influenza Virus Vaccine Quad IM, Preserv and ABX Free 6 MO-64 YRS (FLUCELVAX) Unknown Completed [facility] TDAP Unknown Completed [facility] Meningococcal Polysaccharide (groups A, C, Y and W-135) conjugate vaccine (MCV4P) Unknown Completed [facility] SARS-COV-2 COVID-19 PFIZER VACCINE Unknown Completed [facility] Influenza Virus Vaccine Quad IM, Preserv and ABX Free 6 MO-64 YRS (FLUCELVAX) Unknown Completed [facility] TDAP Unknown Completed [facility] Meningococcal Polysaccharide (groups A, C, Y and W-135) conjugate vaccine (MCV4P) Unknown Completed [facility] SARS-COV-2 COVID-19 PFIZER VACCINE Unknown Completed [facility] Influenza Virus Vaccine Quad IM, Preserv and ABX Free 6 MO-64 YRS (FLUCELVAX) Unknown Completed [facility] TDAP Unknown Completed [facility] Meningococcal Polysaccharide (groups A, C, Y and W-135) conjugate vaccine (MCV4P) Unknown Completed [facility] SARS-COV-2 COVID-19 PFIZER VACCINE Unknown Completed [facility] Influenza Virus Vaccine Quad IM, Preserv and ABX Free 6 MO-64 YRS (FLUCELVAX) Unknown Completed [facility] TDAP Unknown Completed [facility] Meningococcal Polysaccharide (groups A, C, Y and W-135) conjugate vaccine (MCV4P) Unknown Completed [facility] SARS-COV-2 COVID-19 PFIZER VACCINE Unknown Completed [facility] Influenza Virus Vaccine Quad IM, Preserv and ABX Free 6 MO-64 YRS (FLUCELVAX) Unknown Completed [facility] TDAP Unknown Completed [facility] Meningococcal Polysaccharide (groups A, C, Y and W-135) conjugate vaccine (MCV4P) Unknown Completed [facility] SARS-COV-2 COVID-19 PFIZER VACCINE Unknown Completed [facility] Influenza Virus Vaccine Quad IM, Preserv and ABX Free 6 MO-64 YRS (FLUCELVAX) Unknown Completed [facility] TDAP Unknown Completed [facility] Meningococcal Polysaccharide (groups A, C, Y and W-135) conjugate vaccine (MCV4P) Unknown Completed [facility] SARS-COV-2 COVID-19 PFIZER VACCINE Unknown Completed [facility] Influenza Virus Vaccine Quad IM, Preserv and ABX Free 6 MO-64 YRS (FLUCELVAX) Unknown Completed [facility] TDAP Unknown Completed [facility] Meningococcal Polysaccharide (groups A, C, Y and W-135) conjugate vaccine (MCV4P) Unknown Completed [facility] SARS-COV-2 COVID-19 PFIZER VACCINE Unknown Completed [facility] Influenza Virus Vaccine Quad IM, Preserv and ABX Free 6 MO-64 YRS (FLUCELVAX) Unknown Completed [facility] TDAP Unknown Completed [facility] Meningococcal Polysaccharide (groups A, C, Y and W-135) conjugate vaccine (MCV4P) Unknown Completed [facility] SARS-COV-2 COVID-19 PFIZER VACCINE Unknown Completed [facility] Influenza Virus Vaccine Quad IM, Preserv and ABX Free 6 MO-64 YRS (FLUCELVAX) Unknown Completed [facility] TDAP Unknown Completed [facility] Meningococcal Polysaccharide (groups A, C, Y and W-135) conjugate vaccine (MCV4P) Unknown Completed [facility] SARS-COV-2 COVID-19 PFIZER VACCINE Unknown Completed [facility] Influenza Virus Vaccine Quad IM, Preserv and ABX Free 6 MO-64 YRS (FLUCELVAX) Unknown Completed [facility] TDAP Unknown Completed [facility] Meningococcal Polysaccharide (groups A, C, Y and W-135) conjugate vaccine (MCV4P) Unknown Completed [facility] SARS-COV-2 COVID-19 PFIZER VACCINE Unknown Completed [facility] Influenza Virus Vaccine Quad IM, Preserv and ABX Free 6 MO-64 YRS (FLUCELVAX) Unknown Completed [facility] TDAP Unknown Completed [facility] Meningococcal Polysaccharide (groups A, C, Y and W-135) conjugate vaccine (MCV4P) Unknown Completed [facility] Flu Injectable MDCK Pres-Free (FLUCELVAX) Unknown Completed [facility] SARS-COV-2 COVID-19 PFIZER VACCINE Unknown Completed [facility] Influenza Virus Vaccine Quad IM, Preserv and ABX Free 6 MO-64 YRS (FLUCELVAX) Unknown Completed [facility] TDAP Unknown Completed [facility] Meningococcal Polysaccharide (groups A, C, Y and W-135) conjugate vaccine (MCV4P) Unknown Completed [facility] Vital Signs Vital Name Observation Time Observation Value Comments S ource Systolic blood pressure 2024-02-18 14:23:00 111 mm[Hg] [facility] Diastolic blood pressure 2024-02-18 14:23:00 77 mm[Hg] [facility] Heart rate 2024-02-18 14:23:00 90 /min Unive [facility] Body temperature 2024-02-18 14:23:00 36.72 Janet [facility] Respiratory rate 2024-02-18 14:23:00 18 /min [facility] Body height 2024-02-18 14:23:00 152.4 cm Univ [facility] Body weight 2024-02-18 14:23:00 92.987 kg [facility] BMI 2024-02-18 14:23:00 40.04 kg/m2 [facility] Oxygen saturation in Arterial blood by Pulse oximetry 2024-02-18 14:23:00 98 /min [facility] Systolic blood pressure 2024-01-26 21:06:00 104 mm[Hg] [facility] Diastolic blood pressure 2024-01-26 21:06:00 77 mm[Hg] [facility] Heart rate 2024-01-26 21:06:00 91 /min Unive [facility] Respiratory rate 2024-01-26 21:06:00 18 /min [facility] Body height 2024-01-26 21:06:00 152.4 cm [facility] Body weight 2024-01-26 21:06:00 89.812 kg [facility] BMI 2024-01-26 21:06:00 38.67 kg/m2 [facility] Systolic blood pressure 2024-01-14 17:47:00 108 mm[Hg] [facility] Diastolic blood pressure 2024-01-14 17:47:00 72 mm[Hg] [facility] Heart rate 2024-01-14 17:45:00 97 /min Unive [facility] Body temperature 2024-01-14 17:45:00 36.94 Janet [facility] Body height 2024-01-14 17:45:00 152.4 cm Univ [facility] Body weight 2024-01-14 17:45:00 90.719 kg Univ [facility] BMI 2024-01-14 17:45:00 39.06 kg/m2 Univ [facility] Oxygen saturation in Arterial blood by Pulse oximetry 2024-01-14 17:45:00 97 /min [facility] Systolic blood pressure 2023-12-25 18:20:00 111 mm[Hg] [facility] Diastolic blood pressure 2023-12-25 18:20:00 66 mm[Hg] [facility] Heart rate 2023-12-25 18:20:00 87 /min Unive [facility] Body height 2023-12-25 18:20:00 152.4 cm Univ [facility] Body weight 2023-12-25 18:20:00 89.449 kg Univ [facility] BMI 2023-12-25 18:20:00 38.51 kg/m2 [facility] Oxygen saturation in Arterial blood by Pulse oximetry 2023-12-25 18:20:00 100 /min [facility] Systolic blood pressure 2023-12-22 15:25:00 107 mm[Hg] [facility] Diastolic blood pressure 2023-12-22 15:25:00 76 mm[Hg] [facility] Heart rate 2023-12-22 15:25:00 92 /min Unive [facility] Respiratory rate 2023-12-22 15:25:00 16 /min [facility] Body height 2023-12-22 15:25:00 152.4 cm Univ [facility] Body weight 2023-12-22 15:25:00 89.767 kg [facility] BMI 2023-12-22 15:25:00 38.65 kg/m2 Univ [facility] Oxygen saturation in Arterial blood by Pulse oximetry 2023-12-22 15:25:00 97 /min [facility] Systolic blood pressure 2023-12-19 12:00:00 109 mm[Hg] [facility] Diastolic blood pressure 2023-12-19 12:00:00 74 mm[Hg] [facility] Heart rate 2023-12-19 12:00:00 84 /min Unive [facility] Body temperature 2023-12-19 12:00:00 36.72 Janet [facility] Respiratory rate 2023-12-19 12:00:00 16 /min [facility] Oxygen saturation in Arterial blood by Pulse oximetry 2023-12-19 12:00:00 96 /min [facility] Body height 2023-12-19 08:35:00 152.4 cm [facility] Body weight 2023-12-19 08:35:00 90.084 kg [facility] BMI 2023-12-19 08:35:00 38.79 kg/m2 [facility] Heart rate 2023-12-16 15:56:00 106 /min Unive [facility] Systolic blood pressure 2023-12-16 15:30:00 121 mm[Hg] [facility] Diastolic blood pressure 2023-12-16 15:30:00 86 mm[Hg] [facility] Body temperature 2023-12-16 15:30:00 37 Janet [facility] Respiratory rate 2023-12-16 15:30:00 20 /min [facility] Body height 2023-12-16 15:30:00 152.4 cm [facility] Body weight 2023-12-16 15:30:00 88.905 kg [facility] BMI 2023-12-16 15:30:00 38.28 kg/m2 [facility] Oxygen saturation in Arterial blood by Pulse oximetry 2023-12-16 15:30:00 97 /min [facility] Systolic blood pressure 2023-12-11 16:56:00 127 mm[Hg] [facility] Diastolic blood pressure 2023-12-11 16:56:00 85 mm[Hg] [facility] Heart rate 2023-12-11 16:56:00 111 /min Unive [facility] Body temperature 2023-12-11 16:56:00 36.83 Janet [facility] Oxygen saturation in Arterial blood by Pulse oximetry 2023-12-11 16:56:00 93 /min [facility] Respiratory rate 2023-12-11 08:20:00 16 /min [facility] Body height 2023-12-09 14:30:00 152.4 cm [facility] weight 2023-12-09 14:30:00 93.2 kg [facility] BMI 2023-12-09 14:30:00 40.13 kg/m2 [facility] Systolic blood pressure 2023-12-09 14:30:00 138 mm[Hg] [facility] Diastolic blood pressure 2023-12-09 14:30:00 82 mm[Hg] [facility] Heart rate 2023-12-09 14:30:00 101 /min [facility] Body temperature 2023-12-09 14:30:00 37.33 Janet [facility] Respiratory rate 2023-12-09 14:30:00 16 /min [facility] Body height 2023-12-09 14:30:00 152.4 cm [facility] Body weight 2023-12-09 14:30:00 93.2 kg [facility] BMI 2023-12-09 14:30:00 40.13 kg/m2 Univ [facility] Oxygen saturation in Arterial blood by Pulse oximetry 2023-12-09 14:30:00 97 /min [facility] Systolic blood pressure 2023-12-07 20:55:00 113 mm[Hg] [facility] Diastolic blood pressure 2023-12-07 20:55:00 72 mm[Hg] [facility] Heart rate 2023-12-07 20:55:00 97 /min [facility] Body height 2023-12-07 20:55:00 152.4 cm [facility] Body weight 2023-12-07 20:55:00 94.167 kg Univ [facility] BMI 2023-12-07 20:55:00 40.54 kg/m2 [facility] Oxygen saturation in Arterial blood by Pulse oximetry 2023-12-07 20:55:00 98 /min [facility] Systolic blood pressure 2023-12-04 18:38:00 122 mm[Hg] [facility] Diastolic blood pressure 2023-12-04 18:38:00 86 mm[Hg] [facility] Heart rate 2023-12-04 18:38:00 101 /min Unive [facility] Body temperature 2023-12-04 18:38:00 36 Janet [facility] Respiratory rate 2023-12-04 18:38:00 18 /min [facility] Body height 2023-12-04 18:38:00 152.4 cm [facility] Body weight 2023-12-04 18:38:00 93.169 kg [facility] BMI 2023-12-04 18:38:00 40.11 kg/m2 [facility] Oxygen saturation in Arterial blood by Pulse oximetry 2023-12-04 18:38:00 96 /min [facility] Systolic blood pressure 2023-11-20 20:27:00 129 mm[Hg] [facility] Diastolic blood pressure 2023-11-20 20:27:00 82 mm[Hg] [facility] Heart rate 2023-11-20 20:27:00 97 /min Unive [facility] Body temperature 2023-11-20 20:27:00 36.11 Janet [facility] Body height 2023-11-20 20:27:00 152.4 cm [facility] Body weight 2023-11-20 20:27:00 93.441 kg [facility] BMI 2023-11-20 20:27:00 40.23 kg/m2 [facility] Systolic blood pressure 2023-11-12 15:30:00 114 mm[Hg] [facility] Diastolic blood pressure 2023-11-12 15:30:00 73 mm[Hg] [facility] Heart rate 2023-11-12 15:30:00 90 /min Unive [facility] Respiratory rate 2023-11-12 15:30:00 17 /min [facility] Oxygen saturation in Arterial blood by Pulse oximetry 2023-11-12 15:30:00 96 /min [facility] Body temperature 2023-11-12 14:35:00 36.28 Janet [facility] Body height 2023-11-12 13:08:00 152.4 cm [facility] Body weight 2023-11-12 13:08:00 92.9 kg Univ [facility] BMI 2023-11-12 13:08:00 40.00 kg/m2 Univ [facility] Systolic blood pressure 2023-11-12 15:30:00 114 mm[Hg] [facility] Diastolic blood pressure 2023-11-12 15:30:00 73 mm[Hg] [facility] Heart rate 2023-11-12 15:30:00 90 /min Unive [facility] Respiratory rate 2023-11-12 15:30:00 17 /min [facility] Oxygen saturation in Arterial blood by Pulse oximetry 2023-11-12 15:30:00 96 /min [facility] Body temperature 2023-11-12 14:35:00 36.28 Janet [facility] Body height 2023-11-12 13:08:00 152.4 cm Univ [facility] Body weight 2023-11-12 13:08:00 92.9 kg [facility] BMI 2023-11-12 13:08:00 40.00 kg/m2 [facility] Systolic blood pressure 2023 15:50:00 111 mm[Hg] [facility] Diastolic blood pressure 2023 15:50:00 78 mm[Hg] [facility] Heart rate 2023 15:50:00 99 /min [facility] Body temperature 2023 15:50:00 36.72 Janet [facility] Respiratory rate 2023 15:50:00 18 /min [facility] Body height 2023 15:50:00 152.4 cm Univ [facility] Body weight 2023 15:50:00 93.26 kg [facility] BMI 2023 15:50:00 40.15 kg/m2 [facility] Systolic blood pressure 2023-10-23 18:27:00 114 mm[Hg] [facility] Diastolic blood pressure 2023-10-23 18:27:00 76 mm[Hg] [facility] Heart rate 2023-10-23 18:27:00 86 /min Unive [facility] Body temperature 2023-10-23 18:27:00 36.28 Janet [facility] Respiratory rate 2023-10-23 18:27:00 18 /min [facility] Body height 2023-10-23 18:27:00 152.4 cm Univ [facility] Body weight 2023-10-23 18:27:00 93.895 kg [facility] BMI 2023-10-23 18:27:00 40.43 kg/m2 [facility] Oxygen saturation in Arterial blood by Pulse oximetry 2023-10-23 18:27:00 97 /min [facility] Systolic blood pressure 2023-10-21 16:03:00 113 mm[Hg] [facility] Diastolic blood pressure 2023-10-21 16:03:00 78 mm[Hg] [facility] Heart rate 2023-10-21 16:03:00 99 /min Unive [facility] Body height 2023-10-21 16:03:00 152.4 cm Univ [facility] Body weight 2023-10-21 16:03:00 92.942 kg [facility] BMI 2023-10-21 16:03:00 40.02 kg/m2 [facility] Oxygen saturation in Arterial blood by Pulse oximetry 2023-10-21 16:03:00 96 /min [facility] Systolic blood pressure 2023-10-05 15:37:00 120 mm[Hg] [facility] Diastolic blood pressure 2023-10-05 15:37:00 77 mm[Hg] [facility] Heart rate 2023-10-05 15:37:00 102 /min Unive [facility] Respiratory rate 2023-10-05 15:37:00 18 /min [facility] Body height 2023-10-05 15:37:00 152.4 cm Univ [facility] Body weight 2023-10-05 15:37:00 92.67 kg Univ [facility] BMI 2023-10-05 15:37:00 39.90 kg/m2 [facility] Oxygen saturation in Arterial blood by Pulse oximetry 2023-10-05 15:37:00 96 /min [facility] Systolic blood pressure 2023-09-22 14:47:00 114 mm[Hg] [facility] Diastolic blood pressure 2023-09-22 14:47:00 80 mm[Hg] [facility] Heart rate 2023-09-22 14:47:00 100 /min Unive [facility] Respiratory rate 2023-09-22 14:47:00 18 /min [facility] Body height 2023-09-22 14:47:00 152.4 cm [facility] Body weight 2023-09-22 14:47:00 91.944 kg [facility] BMI 2023-09-22 14:47:00 39.59 kg/m2 [facility] Oxygen saturation in Arterial blood by Pulse oximetry 2023-09-22 14:47:00 93 /min [facility] Systolic blood pressure 2023-08-25 14:34:00 123 mm[Hg] [facility] Diastolic blood pressure 2023-08-25 14:34:00 80 mm[Hg] [facility] Heart rate 2023-08-25 14:34:00 105 /min [facility] 2023-08-25 14:34:00 152.4 cm [facility] Body weight 2023-08-25 14:34:00 92.897 kg [facility] BMI 2023-08-25 14:34:00 40.00 kg/m2 [facility] Oxygen saturation in Arterial blood by Pulse oximetry 2023-08-25 14:34:00 97 /min [facility] Systolic blood pressure 2023-08-10 14:13:00 108 mm[Hg] [facility] Diastolic blood pressure 2023-08-10 14:13:00 65 mm[Hg] [facility] Heart rate 2023-08-10 14:13:00 104 /min Un[facility] Respiratory rate 2023-08-10 14:13:00 18 /min [facility] Body height 2023-08-10 14:13:00 152.4 cm [facility] Body weight 2023-08-10 14:13:00 91.627 kg [facility] BMI 2023-08-10 14:13:00 39.45 kg/m2 [facility] Systolic blood pressure 2023-08-04 16:45:00 124 mm[Hg] [facility] Diastolic blood pressure 2023-08-04 16:45:00 84 mm[Hg] [facility] Heart rate 2023-08-04 16:45:00 97 /min Un[facility] Respiratory rate 2023-08-04 16:45:00 18 /min [facility] Body height 2023-08-04 16:45:00 152.4 cm [facility] Body weight 2023-08-04 16:45:00 91.23 kg [facility] BMI 2023-08-04 16:45:00 39.28 kg/m2 [facility] Oxygen saturation in Arterial blood by Pulse oximetry 2023-08-04 16:45:00 99 /min [facility] Systolic blood pressure 2023-07-24 19:18:00 107 mm[Hg] [facility] Diastolic blood pressure 2023-07-24 19:18:00 72 mm[Hg] [facility] Heart rate 2023-07-24 19:18:00 109 /min Unive [facility] Body temperature 2023-07-24 19:18:00 36.72 Janet [facility] Body height 2023-07-24 19:18:00 152.4 cm [facility] Body weight 2023-07-24 19:18:00 88.814 kg [facility] BMI 2023-07-24 19:18:00 38.24 kg/m2 [facility] Oxygen saturation in Arterial blood by Pulse oximetry 2023-07-24 19:18:00 95 /min [facility] Systolic blood pressure 2023-07-23 19:46:00 116 mm[Hg] [facility] Diastolic blood pressure 2023-07-23 19:46:00 79 mm[Hg] [facility] Heart rate 2023-07-23 19:46:00 106 /min Unive [facility] Body temperature 2023-07-23 19:46:00 35.89 Janet [facility] Respiratory rate 2023-07-23 19:46:00 16 /min [facility] Body height 2023-07-23 19:46:00 152.4 cm [facility] Body weight 2023-07-23 19:46:00 91.853 kg [facility] BMI 2023-07-23 19:46:00 39.55 kg/m2 [facility] Oxygen saturation in Arterial blood by Pulse oximetry 2023-07-23 19:46:00 95 /min [facility] Systolic blood pressure 2023-06-17 22:49:00 122 mm[Hg] [facility] Diastolic blood pressure 2023-06-17 22:49:00 81 mm[Hg] [facility] Heart rate 2023-06-17 22:49:00 98 /min [facility] Body temperature 2023-06-17 22:49:00 36.44 Janet [facility] Respiratory rate 2023-06-17 22:49:00 18 /min [facility] Body height 2023-06-17 22:49:00 152.4 cm [facility] Body weight 2023-06-17 22:49:00 92.987 kg [facility] BMI 2023-06-17 22:49:00 40.04 kg/m2 [facility] Oxygen saturation in Arterial blood by Pulse oximetry 2023-06-17 22:49:00 95 /min [facility] Systolic blood pressure 2023-05-15 19:30:00 110 mm[Hg] [facility] Diastolic blood pressure 2023-05-15 19:30:00 75 mm[Hg] [facility] Heart rate 2023-05-15 19:30:00 96 /min Unive [facility] Body temperature 2023-05-15 19:30:00 36.72 Janet [facility] Respiratory rate 2023-05-15 19:30:00 18 /min [facility] Body height 2023-05-15 19:30:00 152.4 cm [facility] Body weight 2023-05-15 19:30:00 91.536 kg [facility] BMI 2023-05-15 19:30:00 39.41 kg/m2 [facility] Oxygen saturation in Arterial blood by Pulse oximetry 2023-05-15 19:30:00 100 /min [facility] Systolic blood pressure 2023-04-21 20:28:00 126 mm[Hg] [facility] Diastolic blood pressure 2023-04-21 20:28:00 86 mm[Hg] [facility] Heart rate 2023-04-21 20:28:00 98 /min Unive [facility] Body temperature 2023-04-21 20:28:00 36.11 Janet [facility] Respiratory rate 2023-04-21 20:28:00 16 /min [facility] Body height 2023-04-21 20:28:00 152.4 cm Univ [facility] Body weight 2023-04-21 20:28:00 94.802 kg [facility] BMI 2023-04-21 20:28:00 40.82 kg/m2 [facility] Oxygen saturation in Arterial blood by Pulse oximetry 2023-04-21 20:28:00 100 /min [facility] Systolic blood pressure 2023-03-26 20:35:00 127 mm[Hg] [facility] Diastolic blood pressure 2023-03-26 20:35:00 80 mm[Hg] [facility] Heart rate 2023-03-26 20:35:00 90 /min Unive [facility] Body height 2023-03-26 20:35:00 152.4 cm [facility] Body weight 2023-03-26 20:35:00 94.167 kg [facility] BMI 2023-03-26 20:35:00 40.54 kg/m2 [facility] Oxygen saturation in Arterial blood by Pulse oximetry 2023-03-26 20:35:00 98 /min [facility] Systolic blood pressure 2023-02-23 14:43:00 119 mm[Hg] [facility] Diastolic blood pressure 2023-02-23 14:43:00 79 mm[Hg] [facility] Heart rate 2023-02-23 14:43:00 107 /min [facility] Respiratory rate 2023-02-23 14:43:00 18 /min [facility] Body height 2023-02-23 14:43:00 152.4 cm [facility] Body weight 2023-02-23 14:43:00 94.802 kg [facility] BMI 2023-02-23 14:43:00 40.82 kg/m2 [facility] Systolic blood pressure 2022-12-24 18:25:00 107 mm[Hg] [facility] Diastolic blood pressure 2022-12-24 18:25:00 69 mm[Hg] [facility] Heart rate 2022-12-24 18:25:00 92 /min Unive [facility] Body temperature 2022-12-24 18:25:00 36.61 Janet [facility] Body height 2022-12-24 18:25:00 152.4 cm [facility] Body weight 2022-12-24 18:25:00 95.709 kg [facility] BMI 2022-12-24 18:25:00 41.21 kg/m2 [facility] Oxygen saturation in Arterial blood by Pulse oximetry 2022-12-24 18:25:00 97 /min [facility] Systolic blood pressure 2022-11-18 13:42:00 128 mm[Hg] [facility] Diastolic blood pressure 2022-11-18 13:42:00 85 mm[Hg] [facility] Heart rate 2022-11-18 13:42:00 108 /min [facility] Body temperature 2022-11-18 13:42:00 36.89 Janet [facility] Body height 2022-11-18 13:42:00 152.4 cm [facility] Body weight 2022-11-18 13:42:00 94.983 kg [facility] BMI 2022-11-18 13:42:00 40.90 kg/m2 [facility] Systolic blood pressure 2022-11-12 20:11:00 131 mm[Hg] [facility] Diastolic blood pressure 2022-11-12 20:11:00 84 mm[Hg] [facility] Heart rate 2022-11-12 20:11:00 100 /min Unive [facility] Body temperature 2022-11-12 20:11:00 36.78 Janet [facility] Body height 2022-11-12 20:11:00 152.4 cm [facility] Body weight 2022-11-12 20:11:00 95.709 kg [facility] BMI 2022-11-12 20:11:00 41.21 kg/m2 [facility] Oxygen saturation in Arterial blood by Pulse oximetry 2022-11-12 20:11:00 96 /min [facility] Systolic blood pressure 2022-09-08 19:56:00 122 mm[Hg] [facility] Diastolic blood pressure 2022-09-08 19:56:00 81 mm[Hg] [facility] Heart rate 2022-09-08 19:56:00 95 /min Unive [facility] Body height 2022-09-08 19:56:00 152.4 cm Univ [facility] Body weight 2022-09-08 19:56:00 94.756 kg Univ [facility] BMI 2022-09-08 19:56:00 40.80 kg/m2 Univ [facility] Oxygen saturation in Arterial blood by Pulse oximetry 2022-09-08 19:56:00 98 /min [facility] Systolic blood pressure 2022-08-12 17:16:00 131 mm[Hg] [facility] Diastolic blood pressure 2022-08-12 17:16:00 80 mm[Hg] [facility] Heart rate 2022-08-12 17:15:00 113 /min Unive [facility] Body temperature 2022-08-12 17:15:00 36.72 Janet [facility] Respiratory rate 2022-08-12 17:15:00 18 /min [facility] Body height 2022-08-12 17:15:00 152.4 cm Univ [facility] Body weight 2022-08-12 17:15:00 94.892 kg [facility] BMI 2022-08-12 17:15:00 40.86 kg/m2 [facility] Systolic blood pressure 2022-08-08 15:20:00 134 mm[Hg] [facility] Diastolic blood pressure 2022-08-08 15:20:00 71 mm[Hg] [facility] Heart rate 2022-08-08 15:20:00 93 /min Unive [facility] Body height 2022-08-08 15:20:00 152.4 cm [facility] Body weight 2022-08-08 15:20:00 95.618 kg [facility] BMI 2022-08-08 15:20:00 41.17 kg/m2 [facility] Oxygen saturation in Arterial blood by Pulse oximetry 2022-08-08 15:20:00 98 /min [facility] Systolic blood pressure 2022-06-27 22:07:00 125 mm[Hg] [facility] Diastolic blood pressure 2022-06-27 22:07:00 85 mm[Hg] [facility] Heart rate 2022-06-27 22:07:00 95 /min Unive [facility] Body height 2022-06-27 22:07:00 152.4 cm Univ [facility] Body weight 2022-06-27 22:07:00 94.802 kg [facility] BMI 2022-06-27 22:07:00 40.82 kg/m2 [facility] Oxygen saturation in Arterial blood by Pulse oximetry 2022-06-27 22:07:00 97 /min [facility] Systolic blood pressure 2022-05-19 15:24:00 116 mm[Hg] [facility] Diastolic blood pressure 2022-05-19 15:24:00 80 mm[Hg] [facility] Heart rate 2022-05-19 15:22:00 101 /min Unive [facility] Body temperature 2022-05-19 15:22:00 36.94 Janet [facility] Respiratory rate 2022-05-19 15:22:00 18 /min [facility] Body height 2022-05-19 15:22:00 152.4 cm Univ [facility] Body weight 2022-05-19 15:22:00 95.074 kg [facility] BMI 2022-05-19 15:22:00 40.93 kg/m2 Univ [facility] Systolic blood pressure 2022-05-05 20:21:00 124 mm[Hg] [facility] Diastolic blood pressure 2022-05-05 20:21:00 84 mm[Hg] [facility] Heart rate 2022-05-05 20:21:00 109 /min Unive [facility] Body temperature 2022-05-05 20:21:00 36.67 Janet [facility] Respiratory rate 2022-05-05 20:21:00 18 /min [facility] Body height 2022-05-05 20:21:00 152.4 cm Univ [facility] Body weight 2022-05-05 20:21:00 93.895 kg [facility] BMI 2022-05-05 20:21:00 40.43 kg/m2 Univ [facility] Systolic blood pressure 2022-04-17 16:43:00 124 mm[Hg] [facility] Diastolic blood pressure 2022-04-17 16:43:00 80 mm[Hg] [facility] Heart rate 2022-04-17 16:43:00 111 /min [facility] Body temperature 2022-04-17 16:43:00 36.72 Janet [facility] Body height 2022-04-17 16:43:00 152.4 cm [facility] Body weight 2022-04-17 16:43:00 94.983 kg [facility] BMI 2022-04-17 16:43:00 40.90 kg/m2 [facility] Systolic blood pressure 2022-04-11 19:57:00 134 mm[Hg] [facility] Diastolic blood pressure 2022-04-11 19:57:00 83 mm[Hg] [facility] Heart rate 2022-04-11 19:57:00 103 /min [facility] Body height 2022-04-11 19:57:00 152.4 cm [facility] Body weight 2022-04-11 19:57:00 94.575 kg [facility] BMI 2022-04-11 19:57:00 40.72 kg/m2 [facility] Oxygen saturation in Arterial blood by Pulse oximetry 2022-04-11 19:57:00 95 /min [facility] Height 2022-03-05 00:00:00 60 [in_i] [facility] BMI (Body Mass Index) 2022-03-05 00:00:00 40 kg/m2 [facility] Body Weight 2022-03-05 00:00:00 205 [lb_av] Aza [facility] Procedures Procedure Date / Time Performed Performing Clinician Source FLU VACC ([id number]), 6 MO-6 4 YRS, .5ML, IM, TIV (FLUCELVAX) 2024-02-18 14:48:04 Kelly Reynaga [facility] CT SOFT TISSUE NECK W CONTRAST 2023-12-07 3 09:58:11 Eliot Cheung [facility] BASIC METABOLIC PANEL (NA, K , CL, CO2, GLUCOSE, BUN, CREATININE, CA) 2023-12-19 09:23:00 Eliot Cheung [facility] POCT GLUCOSE (AUTOMATED) 2023-12-11 16:57:00 Tanya [facility] POCT GLUCOSE (AUTOMATED) 2023-12-11 16:57:00 Tanya [facility] POCT GLUCOSE (AUTOMATED) 2023-12-11 13:31:00 Tanya [facility] POCT GLUCOSE (AUTOMATED) 2023-12-11 13:31:00 Tanya [facility] MAGNESIUM 2023-12-11 10:23:00 Alan [facility] BASIC METABOLIC PANEL (NA, K , CL, CO2, GLUCOSE, BUN, CREATININE, CA) 2023-12-11 10:23:00 Sindy [facility] CBC WITH DIFF 2023-12-11 10:23:00 Sindy [facility] MAGNESIUM 2023-12-11 10:23:00 Alan [facility] BASIC METABOLIC PANEL (NA, K , CL, CO2, GLUCOSE, BUN, CREATININE, CA) 2023-12-11 10:23:00 Sindy [facility] CBC WITH DIFF 2023-12-11 10:23:00 Sindy [facility] POCT GLUCOSE (AUTOMATED) 2023-12-11 01:22:00 Tanya [facility] POCT GLUCOSE (AUTOMATED) 2023-12-11 01:22:00 Tanya [facility] POCT GLUCOSE (AUTOMATED) 2023-12-10 22:20:00 Tanya [facility] POCT GLUCOSE (AUTOMATED) 2023-12-10 22:20:00 Tanya [facility] POCT GLUCOSE (AUTOMATED) 2023-12-10 17:50:00 Tanya [facility] POCT GLUCOSE (AUTOMATED) 2023-12-10 17:50:00 Tanya [facility] POCT GLUCOSE (AUTOMATED) 2023-12-10 16:36:00 Tanya [facility] POCT GLUCOSE (AUTOMATED) 2023-12-10 16:36:00 Tanya [facility] BASIC METABOLIC PANEL (NA, K , CL, CO2, GLUCOSE, BUN, CREATININE, CA) 2023-12-10 08:56:00 Sindy [facility] CBC WITH DIFF 2023-12-10 08:56:00 Sindy, [facility] BASIC METABOLIC PANEL (NA, K , CL, CO2, GLUCOSE, BUN, CREATININE, CA) 2023-12-10 08:56:00 Sindy, [facility] CBC WITH DIFF 2023-12-10 08:56:00 Sindy [facility] HYOID SUSPENSION 2023-12-09 16:54:00 Tanya [facility] UVULOPHARYNGOPALATOPLASY 2023-12-09 16:54:00 Tanya [facility] HYOID SUSPENSION 2023-12-09 16:54:00 Tanya [facility] UVULOPHARYNGOPALATOPLASY 2023-12-09 16:54:00 Tanya [facility] POCT GLUCOSE(AGE >30DAYS) 2023-12-09 14:58:00 Nj Connell [facility] POCT GLUCOSE(AGE >30DAYS) 2023-12-09 14:58:00 Nj Connell [facility] POCT GLUCOSE (AUTOMATED) 2023-12-09 14:57:00 Tanya [facility] POCT GLUCOSE (AUTOMATED) 2023-12-09 14:57:00 Tanya [facility] POCT TEST 2023-12-09 14:35:[address] [facility] POCT TEST 2023-12-09 14:35:[address] [facility] LARYNGOS[facility] 2023-11-12 13:58:00 Tanya [facility] EXAM UNDER ANESTHESIA ORAL CAVITY 2023-11-12 13:58:00 Tanya [facility] POCT GLUCOSE (AUTOMATED) 2023-11-12 13:19:00 Tanya [facility] POCT GLUCOSE (AUTOMATED) 2023-11-12 13:19:00 Laura Martínez [facility] POCT TEST 2023-11-12 13:15:00 Yazan Guo [facility] POCT TEST 2023-11-12 13:15:00 Yazan Guo [facility] TRANSTHORACIC ECHO (TTE) COMPLETE 2023-09-14 16:38:05 Blake Pelletier [facility] EXTERNAL PROVIDER RECORDS 2023-08-03 06:01:00 Doctor Unassigned, [place] [facility] AUTHORIZATION FOR RELEASE OF PHI 2023-06 06:01:00 Doctor Unassigned, [place] [facility] POCT TEST 2023-06-17 22:56:00 Nicky Peck [facility] POCT URINALYSIS 2023-06-17 22:52:00 Nicky Peck [facility] DME/SUPPLY JUSTIFICATION 2023-06-15 06:01:00 Doctor Unassigned, [place] [facility] MAGNESIUM 2023-05-15 19:57:00 Nicky Peck [facility] VITAMIN B12, LEVEL 2023-05-15 19:57:00 Nicky Peck [facility] THYROID STIMULATING HORMONE 2023-05-15 19:57:00 Nicky Peck [facility] COMP. METABOLIC PANEL ([id number]) 2023-05-15 19:57:00 Nicky Peck [facility] CBC WITH DIFF 2023-05-15 19:57:00 Nicky Peck [facility] POCT TEST 2023-05-15 00:00:00 Nicky Peck [facility] ALKALINE PHOSPHATASE, TOTAL 2023-04-21 20:58:00 Tian Caro [facility] VITAMIN D, 25-OH 2023-04-21 20:58:00 Tian Caro [facility] N-TELOPEPTIDE, SERUM 2023-04-21 20:58:00 Tian Caro [facility] INTACT PTH CALCIUM GROUP 2023-04-21 20:58:00 Tian Caro [facility] FLU VACC (), 6 MO-6 4 YRS, .5ML, IM, QUAD (FLUCELVAX) 2023-03-26 20:50:06 Kelly Reynaga [facility] US ABDOMEN LIMITED 2023-02-06 20:45:00 Nicky Peck [facility] ASSIGNMENT OF BENEFITS 2023-02-06 20:13:40 Doctor Unassigned, [place] [facility] CONSENT/REFUSAL FOR DIAGNOSI S AND TREATMENT 2023-02-06 20:13:17 Doctor Unassigned, [place] [facility] POCT TEST 2022-12-24 18:42:00 Nicky Peck [facility] POCT URINALYSIS 2022-12-24 18:35:00 Nicky Peck [facility] POCT TEST 2022-11-18 00:00:00 Supriya Yan [facility] ASSIGNMENT OF BENEFITS 2022-11-12 20:11:20 Doctor Unassigned, [place] [facility] INSURANCE CORRESPONDENCE 2022-10-07 05:01:00 Doctor Unassigned, [place] [facility] DME/SUPPLY JUSTIFICATION 2022-08-21 05:01:00 Doctor Unassigned, [place] [facility] DME/SUPPLY JUSTIFICATION 2022-08-01 06:01:00 Doctor Unassigned, [place] [facility] US ABDOMEN LIMITED 2022-06-17 16:16:37 Marley Camarillo [facility] POCT TEST 2022-05-19 15:52:00 Nishant Chapman [facility] CONSENT FOR CONTRACEPTION 2022-05-19 06:01:00 Doctor Unassigned, [place] [facility] POCT TEST 2022-05-05 20:30:00 Nishant Chapman [facility] DISCLOSURE AND CONSENT, MEDI [place] AND SURGICAL PROCEDURES 2022-05-05 06:01:00 Doctor Unassigned, [place] [facility] POCT TEST 2022-04-17 00:00:00 Nishant Chapman [facility] CBC WITH DIFF 2022-02-19 22:11:00 Vannesa Kaplan [facility] INSURANCE CORRESPONDENCE 2022-02-04 05:01:00 Doctor Unassigned, [place] [facility] Encounters Start Date/Time End Date/Time Encounter Type Admission Type Attending [facility] Facility Care Department Encounter ID Source 2024-02-16 00:00:00 2024-02-22 17:22:13 Telephone Juhi [facility] [id number] [facility] [facility] 2024-02-18 09:30:00 2024-02-18 09:55:12 [facility] [id number] [facility] 2024-02-18 09:30:00 2024-02-18 09:55:12 [facility] 1.2.840.114 350.1.13.10 4.2.7.2.686 [id number] [id number] [facility] 2024-02-17 00:00:00 2024-02-17 13:35:53 [facility]phone [facility] 1.2.840.114 350.1.13.10 4.2.7.2.686 [id number] [facility] 2024-02-16 00:00:00 2024-02-16 17:28:11 Nurse Triage Katie Ibarra Teresa D [facility] 1.2.840.114 350.1.13.10 4.2.7.2.686 [id number] [id number] [facility] 2024-02-01 00:00:00 2024-02-01 10:16:13 Telephone Juhi [facility] 1.2840.114 350.1.13.10 4.2.7.2.686 [id number] [id number] [facility] 2024-01-27 00:00:00 2024-01-29 09:42:25 Telephone Kelly Reynaga [facility] 1.2840.114 350.1.13.10 4.2.7.2.686 [id number] [id number] [facility] 2024-01-26 15:30:00 2024-01-26 16:11:16 Outpatient R KIANA Farmer, SUPRIYA ILENE MAHANSOL [facility] [id number] [facility] 2024-01-26 15:30:00 2024-01-26 16:11:16 Nurse Visit Nurse, [facility] Ilene Mahansol Nurse, [facility] NAL BUILDING 1.840.114 350.1.13.10 4.2.7.2.686 [id number] [facility] 2024-01-15 00:00:00 2024-01-18 12:30:07 Telephone Kelly Reynaga [facility] 1.284.114 350.1.13.10 4.2.7.2.686 [id number] [id number] [facility] 2023-12-15 00:00:00 2024-01-16 18:21:03 Patient Secure Msg Doctor Unassigned, [place] Doctor Unassigned, [place] 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 MEDICAL OFFICE BUILDING 1.840.114 350.1.13.10 4.2.7.2.686 [id number] [facility] 2024-01-14 12:30:00 2024-01-14 12:59:19 Outpatient R NICKY PECK [facility] [id number] [facility] 2024-01-14 12:30:00 2024-01-14 12:59:19 Office Visit Nicky Peck [facility] MEDICAL OFFICE BUILDING 1.840.114 350.1.13.10 4.2.7.2.686 [id number] [facility] 2024-01-13 00:00:00 2024-01-14 11:15:28 Nurse Triage Kelly Reynaga [facility] 1.84.114 350.1.13.10 4.2.7.2.686 [id number] [id number] [facility] 2024-01-13 15:00:00 2024-01-13 15:00:00 Outpatient R NICKY PECK [facility] [id number] [facility] 2023-12-25 13:00:00 2023-12-25 13:51:04 Outpatient R LAURA MARTÍNEZ [facility] [id number] [facility] 2023-12-25 13:00:00 2023-12-25 13:51:04 Office Visit Laura Martínez [facility] 1.84.114 350.1.13.10 4.2.7.2.686 [id number] [facility] 2023-12-19 00:00:00 2023-12-24 13:33:27 Telephone Laura Martínez [facility] 1..114 350.1.13.10 4.2.7.2.686 [id number] [facility] 2023-12-22 10:00:00 2023-12-22 10:51:30 Outpatient R BLAKE PELLETIER [facility] [id number] [facility] 2023-12-22 10:00:00 2023-12-22 10:51:30 Office Visit Alexis Pelletierammed [facility] NAL BUILDING 1.2840.114 350.1.13.10 4.2.7.2.686 [id number] [facility] 2023-12-19 03:39:00 2023-12-19 07:11:00 Emergency X ELIOT CHEUNG WAGAURAV [facility] [id number] [facility] 2023-12-19 03:39:00 2023-12-19 07:11:00 Emergency BebeomarconnorEliot S [facility] 1.840.114 350.1.13.10 4.2.7.2.686 [id number] [facility] 2023-12-17 00:00:00 2023-12-17 11:45:10 Telephone Tian Caro [facility] 1..840.114 350.1.13.10 4.2.7.2.686 [id number] [facility] 2023-12-16 10:20:00 2023-12-16 10:40:00 Urgent Care Viola Spivey Unknown, Attending [facility] 1..840.114 350.1.13.10 4.2.7.2.686 [id number] [facility] 2023-12-16 10:20:00 2023-12-16 10:20:00 Outpatient R VIOLA SPIVEY [facility] [id number] [facility] 2023-12-09 09:21:00 2023-12-11 13:40:00 Outpatient R LAURA MARTÍNEZ 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 1.2.840.114 350.1.13.10 4.2.7.2.686 [id number] [facility] 2023-12-04 15:00:00 2023-12-04 14:14:51 Outpatient R LAURA MARTÍNEZ [facility] [id number] [facility] 2023-11-26 14:30:00 2023-11-26 14:45:00 Electrical Lineman Visit Pob, Adc Lab Main Finn-[place] s, Supriya [facility] BUILDING 1.2.840.114 350.1.13.10 4.2.7.2.686 [id number] [facility] 2023-11-26 14:30:00 2023-11-26 14:30:00 Outpatient R FINN-CHINO S, SUPRIYA FINN-CHINO S, SUPRIYA [facility] [id number] [facility] 2023-11-20 15:00:00 2023-11-20 15:47:57 Outpatient R FINN-CHINO S, SUPRIYA FINN-CHINO S, SUPRIYA [facility] [id number] [facility] 2023-11-20 15:00:00 2023-11-20 15:47:57 Office Visit Finn-[place] s, Supriya [facility] BUILDING 1.2.840.114 350.1.13.10 4.2.7.2.686 [id number] [facility] 2023-11-12 09:50:00 2023-11-12 10:59:00 Surgery [facility] 1.2.840.114 350.1.13.10 4.2.7.2.686 [id number] [facility] 2023-11-12 07:58:00 2023-11-12 10:31:00 Outpatient R LAURA MARTÍNEZ [facility] [id number] [facility] 2023-11-12 07:58:00 2023-11-12 10:31:00 Hospital Encounter Marwan, Hisham [facility] 1.114 350.1.13.10 4.2.7.2.686 [id number] [facility] 2023 10:30:00 2023 10:50:41 Outpatient R NISHANT CHAPMAN [facility] [id number] [facility] 2023 10:30:00 2023 10:50:41 Nurse Visit Nurse, Rusts [facility] Devante Nishant [facility] 1..114 350.1.13.10 4.2.7.2.686 [id number] [facility] 2023-10-23 14:00:00 2023-10-23 14:30:00 Office Visit Tanya Laura [facility] 1..114 350.1.13.10 4.2.7.2.686 [id number] [facility] 2023-10-23 14:00:00 2023-10-23 14:00:00 Outpatient R LAURA MARTÍNEZ [facility] [id number] [facility] 2023-10-21 00:00:00 2023-10-21 16:47:[address] [facility] 1..114 350.1.13.10 4.2.7.2.686 [id number] [facility] 2023-10-21 11:00:00 2023-10-21 11:30:00 Office Visit Tian Caro [facility] 1..114 350.1.13.10 4.2.7.2.686 [id number] [facility] 2023-10-21 11:00:00 2023-10-21 11:00:00 Outpatient R TIAN CARO [facility] [id number] [facility] 2023-10-20 20:00:00 2023-10-20 20:00:[address] [facility] [id number] [facility] 2023-10-19 08:00:00 2023-10-19 08:15:00 Electrical Lineman Visit Pob, Adc Lab Main Obey Cage [facility] 1.2.840.114 350.1.13.10 4.2.7.2.686 [id number] [facility] 2023-10-19 08:00:00 2023-10-19 08:00:00 Outpatient R OBEY CAGE [facility] [id number] [facility] 2023-10-05 13:45:00 2023-10-05 14:00:00 Electrical Lineman Visit Pob, Adc Lab Main Tone Henderson Umair M [facility] 1.2.840.114 350.1.13.10 4.2.7.2.686 [id number] [facility] 2023-10-05 10:00:00 2023-10-05 11:08:38 Outpatient R TONE HENDERSON SHIKYSoila [facility] [id number] [facility] 2023-10-05 10:00:00 2023-10-05 11:08:38 Office Visit Tone Henderson [facility] 1.2.840.114 350.1.13.10 4.2.7.2.686 [id number] [facility] 2023-09-30 20:00:00 2023-09-30 22:30:00 Electrical Lineman Visit 1, Adc Sleep Lab Bed Kenzie Correa [facility] 1.2.840.114 350.1.13.10 4.2.7.2.686 [id number] [facility] 2023-09-30 20:00:00 2023-09-30 20:00:00 Outpatient R KENZIE CORREA STRAHIL [facility] [id number] [facility] 2023-09-22 09:30:00 2023-09-22 10:23:44 [facility] [id number] [facility] 2023-09-22 09:30:00 2023-09-22 10:00:00 Office Visit [facility] BUILDING 1.2.840.114 350.1.13.10 4.2.7.2.686 [id number] [facility] 2023-09-15 00:00:00 2023-09-15 00:00:00 Telephone [facility] BUILDING 1.2.840.114 350.1.13.10 4.2.7.2.686 [id number] [facility] 2023-09-14 10:00:00 2023-09-14 23:59:00 Outpatient R BLAKE PELLETIER [facility] [id number] [facility] 2023-09-14 10:00:00 2023-09-14 23:59:00 Hospital Encounter [facility] BUILDING 1.2.840.114 350.1.13.10 4.2.7.2.686 [id number] [facility] 2023-09-14 08:30:00 2023-09-14 09:59:00 Hospital Encounter [facility] BUILDING 1.2.840.114 350.1.13.10 4.2.7.2.686 [id number] [facility] 2023-09-11 12:15:00 2023-09-11 12:53:23 Outpatient R KELLY REYNAGA [facility] [id number] [facility] 2023-09-11 12:15:00 2023-09-11 12:30:00 Electrical Lineman Visit Lab, River Callahan [facility] 1.2.840.114 350.1.13.10 4.2.7.2.686 [id number] [facility] 2023-08-25 09:30:00 2023-08-25 10:03:43 Outpatient R [facility] [id number] [facility] 2023-08-25 09:30:00 2023-08-25 10:03:43 Office Visit [facility] BUILDING 1.2.840.114 350.1.13.10 4.2.7.2.686 [id number] [facility] 2023-08-10 08:00:00 2023-08-10 08:11:33 Outpatient R HUMA-CHINO S, SUPRIYA KIANA Farmer [facility] [id number] [facility] 2023-08-10 08:00:00 2023-08-10 08:11:33 Nurse Visit Nurse, [facility] Kiana farmer [facility] NAL BUILDING 1.2.840.114 350.1.13.10 4.2.7.2.686 [id number] [facility] 2023-08-10 00:00:00 2023-08-10 00:00:00 Telephone Tone Henderson [facility] BUILDING 1.2.840.114 350.1.13.10 4.2.7.2.686 [id number] [facility] 2023-08-04 10:30:00 2023-08-04 11:11:28 Outpatient R TONE HENDERSON TONE [facility] [id number] [facility] 2023-08-04 10:30:00 2023-08-04 11:11:28 Office Visit Tone Henderson [facility] 1.2.840.114 350.1.13.10 4.2.7.2.686 [id number] [facility] 2023-08-04 00:00:00 2023-08-04 00:00:00 Telephone [facility] 1.2.840.114 350.1.13.10 4.2.7.2.686 [id number] [id number] [facility] 2023-08-03 00:00:00 2023-08-03 00:00:00 Orders Only Doctor Unassigned, [place] [facility] 1.2840.114 350.1.13.10 4.2.7.2.686 [id number] [facility] 2023-07-30 00:00:00 2023-07-30 00:00:00 [facility] MEDICAL OFFICE BUILDING 1.2.840.114 350.1.13.10 4.2.7.2.686 [id number] [facility] 2023-07-24 13:00:00 2023-07-24 13:39:25 Outpatient R NICKY PECK [facility] [id number] [facility] 2023-07-24 13:00:00 2023-07-24 13:39:25 Office Visit Nicky Peck [facility] MED[facility] BUILDING 1.2.840.114 350.1.13.10 4.2.7.2.686 [id number] [facility] 2023-07-23 14:30:00 2023-07-23 15:00:00 Office Visit Obey Cage [facility] 1.2.840.114 350.1.13.10 4.2.7.2.686 [id number] [facility] 2023-07-23 14:30:00 2023-07-23 14:30:00 Outpatient R OBEY CAGE [facility] [id number] [facility] 2023-07-15 00:00:00 2023-07-15 00:00:00 Telephone Tian Caro [facility] 1.2.840.114 350.1.13.10 4.2.7.2.686 [id number] [facility] 2023-07-10 00:00:00 2023-07-10 00:00:00 Refill Tian Caro [facility] 1.2.840.114 350.1.13.10 4.2.7.2.686 [id number] [facility] 2023-06-25 00:00:00 2023-06-25 00:00:00 Refill Kelly Reynaga [facility] 1.2840.114 350.1.13.10 4.2.7.2.686 [id number] [facility] 2023-06-19 00:00:00 2023-06-19 00:00:00 Orders Only Doctor Unassigned, [place] [facility] 1.20.114 350.1.13.10 4.2.7.2.686 [id number] [facility] 2023-06-17 16:30:00 2023-06-17 17:26:[address] [facility] [id number] [facility] 2023-06-17 16:30:00 2023-06-17 17:26:16 Office Visit [facility] 1.2.840.114 350.1.13.10 4.2.7.2.686 [id number] 044 [id number] [facility] 2023-06-17 17:00:00 2023-06-17 17:15:00 Electrical Lineman Visit Lab, [place] - [place] Nicky Peck [facility] MED[facility] OFF[facility] BUILDING 1.2.840.114 350.1.13.10 4.2.7.2.686 [id number] [facility] 2023-06-15 00:00:00 2023-06-15 00:00:00 Orders Only Doctor Unassigned, [place] [facility] 1.2.840.114 350.1.13.10 4.2.7.2.686 [id number] [facility] 2023-06-12 00:00:00 2023-06-12 00:00:00 Telephone [facility]y Peck [facility] BUILDING 1.2.840.114 350.1.13.10 4.2.7.2.686 [id number] [id number] [facility] 2023-06-11 00:00:00 2023-06-11 00:00:00 Telephone [facility]y Peck [facility] 1.2840.114 350.1.13.10 4.2.7.2.686 [id number] [id number] [facility] 2023-06-11 00:00:00 2023-06-11 00:00:00 Telephone [facility]y Peck [facility] BU[facility] 1.2.840.114 350.1.13.10 4.2.7.2.686 [id number] [id number] [facility] 2023-06-10 14:15:45 2023-06-10 23:59:00 Outpatient R NICKY PECK [facility] [id number] [facility] 2023-06-10 14:15:45 2023-06-10 23:59:00 Hospital Encounter Nicky Peck [facility] 1.2840.114 350.1.13.10 4.2.7.2.686 [id number] [facility] 2023-05-25 00:00:00 2023-05-25 00:00:00 Telephone Tian Caro [facility] 1.284.114 350.1.13.10 4.2.7.2.686 [id number] [facility] 2023-05-21 00:00:00 2023-05-21 00:00:00 Telephone Kelly Reynaga [facility] MED[facility] OFF[facility] BUILDING 1.284.114 350.1.13.10 4.2.7.2.686 [id number] [id number] [facility] 2023-05-19 00:00:00 2023-05-19 00:00:00 Telephone Nicky Peck [facility] OFF[facility] BUILDING 1.284.114 350.1.13.10 4.2.7.2.686 [id number] [facility] 2023-05-18 10:30:00 2023-05-18 11:20:17 Outpatient R NISHANT CHAPMAN [facility] [id number] [facility] 2023-05-15 14:00:00 2023-05-15 14:15:00 Electrical Lineman Visit Lab, Ang - Db Nicky Peck [facility] OFF[facility] BUILDING 1.284.114 350.1.13.10 4.2.7.2.686 [id number] [facility] 2023-05-15 13:00:00 2023-05-15 13:51:35 Outpatient R NICKY PECK [facility] [id number] [facility] 2023-05-15 13:00:00 2023-05-15 13:51:35 Office Visit Santiago Pecklichanel Montano [facility] OFF[facility] BUILDING 1.84.114 350.1.13.10 4.2.7.2.686 [id number] [facility] 2023-04-21 15:00:00 2023-04-21 15:30:00 Office Visit Tian Caro [facility] 1..840.114 350.1.13.10 4.2.7.2.686 [id number] [facility] 2023-04-21 15:00:00 2023-04-21 15:00:00 Outpatient R LYNDA CAROMAD [facility] [id number] [facility] 2023-04-20 15:53:37 2023-04-20 15:53:37 Outpatient [facility] [address] Mateus[address] Tena Estrada 2023-03-26 16:00:00 2023-03-26 16:15:00 Electrical Lineman Visit Lab, Ang - Db [facility] BUILD[facility] 1.84.114 350.1.13.10 4.2.7.2.686 [id number] [facility] 2023-03-26 15:30:00 2023-03-26 16:01:32 [facility] 1.84.114 350.1.13.10 4.2.7.2.686 [id number] [facility] 2023-03-26 16:00:00 2023-03-26 16:00:00 Outpatient R KELLY REYNAGA [facility] [id number] [facility] 2023-02-23 10:00:00 2023-02-23 10:00:00 Nurse Visit Nurse, [facility] Devantei sIleneSupriya [facility] NAL BUILDING 1.840.114 350.1.13.10 4.2.7.2.686 [id number] [facility] 2023-02-23 10:00:00 2023-02-23 09:45:09 Outpatient R KIANA S, SUPRIYA FINN-CHINO S, SUPRIYA [facility] [id number] [facility] 2023-02-06 15:13:36 2023-02-06 23:59:00 Outpatient R NICKY PECK [facility] [id number] [facility] 2023-02-06 15:00:00 2023-02-06 23:59:00 Hospital Encounter Nicky Peck [facility] 1.84.114 350.1.13.10 4.2.7.2.686 [id number] [facility] 2023-02-06 00:00:00 2023-02-06 00:00:00 Patient Secure Msg Doctor Unassigned, [place] [facility] 1.114 350.1.13.10 4.2.7.2.686 [id number] [facility] 2023-02-05 00:00:00 2023-02-05 00:00:00 Telephone Kelly Reynaga [facility] 1.84.114 350.1.13.10 4.2.7.2.686 [id number] [facility] 2023-02-02 00:00:00 2023-02-02 00:00:00 [facility]phone [facility] 1.2.840.114 350.1.13.10 4.2.7.2.686 [id number] [facility] 2023-02-01 00:00:00 2023-02-01 00:00:00 Telephone [facility] Pe[facility] 1.2.840.114 350.1.13.10 4.2.7.2.686 [id number] [facility] 2023-01-26 00:00:00 2023-01-26 00:00:00 Refvanessa Reynaga [facility] 1.2.840.114 350.1.13.10 4.2.7.2.686 [id number] [facility] 2023-01-24 00:00:00 2023-01-24 00:00:00 Refill Juhi [facility] 1.2.840.114 350.1.13.10 4.2.7.2.686 [id number] [facility] 2023-01-07 14:00:00 2023-01-07 14:34:41 Outpatient R KELLY REYNAGA [facility] [id number] [facility] 2023-01-07 14:00:00 2023-01-07 14:15:00 Electrical Lineman Visit Lab, [place] Reynaga Kelly [facility] 1.2.840.114 350.1.13.10 4.2.7.2.686 [id number] [facility] 2023-01-02 00:00:00 2023-01-02 00:00:00 Telephone Nicky Peck [facility] 1.0114 350.1.13.10 4.2.7.2.686 [id number] [facility] 2022-12-24 14:30:00 2022-12-24 14:45:00 Electrical Lineman Visit Lab, [place] Nicky Peck [facility] 1.20.114 350.1.13.10 4.2.7.2.686 [id number] [facility] 2022-12-24 13:00:00 2022-12-24 13:43:30 Outpatient R SUSAN NICKY [facility] [id number] [facility] 2022-12-24 13:00:00 2022-12-24 13:43:30 Office Visit Nicky Peck [facility] 1.0.114 350.1.13.10 4.2.7.2.686 [id number] [facility] 2022-12-24 00:00:00 2022-12-24 00:00:00 Refill Nicky Peck [facility] 1.114 350.1.13.10 4.2.7.2.686 [id number] [facility] [facility] 2022-12-16 00:00:00 2022-12-16 00:00:00 Refill Nicky Peck [facility] BUILDING 1.114 350.1.13.10 4.2.7.2.686 [id number] [facility] 2022-11-18 08:30:00 2022-11-18 09:00:00 Office Visit Supriya Mahan [facility] NAL BUILDING 1.2.114 350.1.13.10 4.2.7.2.686 [id number] [facility] 2022-11-18 08:30:00 2022-11-18 08:30:00 Outpatient R FINN-CHINO S, SUPRIYA FINN-CHINO S, SUPRIYA [facility] [id number] [facility] 2022-11-13 00:00:00 2022-11-13 00:00:00 Telephone Nicky Peck [facility] NAL BUILDING 1.840.114 350.1.13.10 4.2.7.2.686 [id number] [id number] [facility] 2022-11-12 15:30:00 2022-11-12 15:48:52 Outpatient R NICKY PECK [facility] [id number] [facility] 2022-11-12 15:30:00 2022-11-12 15:48:52 Office [facility] 1.84.114 350.1.13.10 4.2.7.2.686 [id number] [facility] 2022-11-12 15:15:00 2022-11-12 15:30:00 Electrical Lineman Visit Lab, Ang - Db Santiago [facility] 1.284114 350.1.13.10 4.2.7.2.686 [id number] [facility] 2022-11-12 00:00:00 2022-11-12 00:00:00 Orders Only Doctor Unassigned, [place] [facility] 1.2840114 350.1.13.10 4.2.7.2.686 [id number] [facility] 2022-10-07 00:00:00 2022-10-07 00:00:00 Orders Only Doctor Unassigned, [place] [facility] 1.2840.114 350.1.13.10 4.2.7.2.686 [id number] [facility] 2022-10-03 00:00:00 2022-10-03 00:00:00 Nurse Triage Emily Kaminski [facility] 1.2840.114 350.1.13.10 4.2.7.2.686 [id number] [facility] 2022-10-02 00:00:00 2022-10-02 00:00:00 [facility] MEDICAL OFFICE BUILDING 1.2840.114 350.1.13.10 4.2.7.2.686 [id number] [facility] 2022-09-18 00:00:00 2022-09-18 00:00:00 Telephone [facility]?KEL [facility] MEDICAL OFFICE BUILDING 1.2840.114 350.1.13.10 4.2.7.2.686 [id number] [facility] 2022-09-08 15:00:00 2022-09-08 15:35:57 Outpatient R JUHI KELLY [facility] [id number] [facility] 2022-09-08 15:00:00 2022-09-08 15:35:57 [facility] 1.2840.114 350.1.13.10 4.2.7.2.686 [id number] [facility] 2022-09-08 00:00:00 2022-09-08 00:00:00 Telephone [facility] MEDICAL OFFICE BUILDING 1.2840.114 350.1.13.10 4.2.7.2.686 [id number] [facility] 2022-08-21 00:00:00 2022-08-21 00:00:00 Orders Only Doctor Unassigned, [place] [facility] 1.2840.114 350.1.13.10 4.2.7.2.686 [id number] [facility] 2022-08-20 00:00:00 2022-08-20 00:00:00 [facility] 1..114 350.1.13.10 4.2.7.2.686 [id number] [facility] 2022-08-18 00:00:00 2022-08-18 00:00:00 Telephone Nishant Chapman [facility] BUILDING 1.114 350.1.13.10 4.2.7.2.686 [id number] [facility] 2022-08-12 10:30:00 2022-08-12 11:17:30 Outpatient R NISHANT CHAPMAN [facility] [id number] [facility] 2022-08-12 10:30:00 2022-08-12 11:17:30 Nurse Visit Nurse, [facility] Nishant Chapman [facility] BUILDING 1..114 350.1.13.10 4.2.7.2.686 [id number] [facility] 2022-08-08 09:30:00 2022-08-08 10:00:00 [facility] 1.2.114 350.1.13.10 4.2.7.2.686 [id number] [facility] 2022-08-08 09:30:00 2022-08-08 09:30:00 Outpatient R KELLY REYNAGA [facility] [id number] [facility] 2022-08-01 00:00:00 2022-08-01 00:00:00 Orders Only Doctor Unassigned, [place] [facility] 1.2840.114 350.1.13.10 4.2.7.2.686 [id number] [facility] 2022-07-30 00:00:00 2022-07-30 00:00:00 Telephone Stephenie [facility] MEDICAL OFFICE BUILDING 1.2840.114 350.1.13.10 4.2.7.2.686 [id number] [facility] 2022-07-01 00:00:00 2022-07-01 00:00:00 Telephone Stephenie [facility] BU[facility] 1.20.114 350.1.13.10 4.2.7.2.686 [id number] [id number] [facility] 2022-06-27 16:30:00 2022-06-27 16:45:00 Electrical Lineman Visit Lab, River Callahan [facility] 1.2840.114 350.1.13.10 4.2.7.2.686 [id number] [facility] 2022-06-27 16:00:00 2022-06-27 16:37:43 Outpatient R KELLY REYNAGA [facility] [id number] [facility] 2022-06-27 16:00:00 2022-06-27 16:37:43 Office Visit [facility] MEDICAL OFFICE BUILDING 1.2840.114 350.1.13.10 4.2.7.2.686 [id number] [facility] 2022-06-17 09:32:15 2022-06-17 23:59:00 Outpatient R MARQUISE MARLEY [facility] [id number] [facility] 2022-06-17 09:32:15 2022-06-17 23:59:00 Hospital Encounter Marley Camarillo [facility] 1.20.114 350.1.13.10 4.2.7.2.686 [id number] [facility] 2022-06-12 11:30:00 2022-06-12 11:45:00 Electrical Lineman Visit Pob, Adc Lab Main [facility] 1.2.114 350.1.13.10 4.2.7.2.686 [id number] [facility] 2022-06-12 11:30:00 2022-06-12 11:30:00 Outpatient R MARQUISE MARLEY [facility] [id number] [facility] 2022-05-19 09:30:00 2022-05-19 09:50:10 Outpatient R NISHANT CHAPMAN [facility] [id number] [facility] 2022-05-19 09:30:00 2022-05-19 09:50:10 Office Visit [facility] 1..114 350.1.13.10 4.2.7.2.686 [id number] [facility] 2022-05-19 00:00:00 2022-05-19 00:00:00 Orders Only Doctor Unassigned, [place] [facility] 1.2.114 350.1.13.10 4.2.7.2.686 [id number] [facility] 2022-05-09 09:30:00 2022-05-09 09:30:00 Outpatient R KELLY REYNAGA [facility] [id number] [facility] 2022-05-09 00:00:00 2022-05-09 00:00:00 Telephone Kelly Reynaga [facility] MEDICAL OFF[facility] BUILDING 1.2.840.114 350.1.13.10 4.2.7.2.686 [id number] [facility] 2022-05-05 13:30:00 2022-05-05 14:52:24 Outpatient R NISHANT CHAPMAN [facility] [id number] [facility] 2022-05-05 13:30:00 2022-05-05 14:52:24 Office Visit ChapmanNishant [facility] BUILDING 1.2.840.114 350.1.13.10 4.2.7.2.686 [id number] [facility] 2022-05-05 00:00:00 2022-05-05 00:00:00 Orders Only Doctor Unassigned, [place] [facility] 1..840.114 350.1.13.10 4.2.7.2.686 [id number] [facility] 2022-04-17 10:30:00 2022-04-17 11:26:08 Outpatient R NISHANT CHAPMAN [facility] [id number] [facility] 2022-04-17 10:30:00 2022-04-17 11:26:08 Office Visit Devante Nishant [facility] 1..840.114 350.1.13.10 4.2.7.2.686 [id number] [facility] 2022-04-15 10:00:00 2022-04-15 10:00:00 Outpatient R NISHANT CHAPMAN [facility] [id number] [facility] 2022-04-11 15:00:00 2022-04-11 15:29:48 Outpatient R KELLY REYNAGA [facility] [id number] [facility] 2022-04-11 15:00:00 2022-04-11 15:29:48 Office Visit Kelly Reynaga [facility] MED[facility] OFF[facility] BUILDING 1.2.840.114 350.1.13.10 4.2.7.2.686 [id number] [facility] 2022-04-08 10:30:00 2022-04-08 10:30:[address] [facility] [id number] [facility] 2022-03-18 00:00:00 2022-03-18 00:00:00 Outpatient FOG_Patel_R Kassi AO AO [id number] [facility] 2022-03-05 00:00:00 2022-03-05 00:00:00 Outpatient FOG_Patel_R Kassi AO AO [id number] [facility] 2022-03-05 00:00:00 2022-03-05 00:00:00 Nithin Leung MD: [id number] [address], [place] [address] , Ph. [phone] [facility] [place] [facility] [place] - [facility] [place] [id number] [facility] 2022-03-03 00:00:00 2022-03-03 00:00:00 Outpatient FOG_Patel_R Kassi AO AO [id number] [facility] 2022-03-01 00:00:00 2022-03-01 00:00:00 Outpatient FOG_Patel_R Kassi AO AO [id number] [facility] 2022-02-27 14:00:00 2022-02-27 14:00:[address] [facility] [id number] [facility] 2022-02-26 00:00:00 2022-02-26 00:00:00 Outpatient JOSE_Pattraci_Esdras mcfarland_ AO AO [id number] [facility] 2022-02-21 11:30:00 2022-02-21 11:45:00 Electrical Lineman Visit Pob, Adc Lab [facility] 1..840.114 350.1.13.10 4.2.7.2.686 [id number] [facility] 2022-02-21 11:30:00 2022-02-21 11:30:00 Outpatient Esdras PORTILLO [facility] [id number] [facility] 2022-02-19 17:00:00 2022-02-19 17:15:00 Electrical 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 Visit [facility] 1..840.114 350.1.13.10 4.2.7.2.686 [id number] [facility] 2022-02-19 17:00:00 2022-02-19 17:00:00 Outpatient Esdras PORTILLO [facility] [id number] [facility] 2022-02-08 00:00:00 2022-02-08 00:00:00 Patient Secure Msg Doctor Unassigned, [place] [facility] 1.840.114 350.1.13.10 4.2.7.2.686 [id number] [facility] 2022-02-07 14:30:00 2022-02-07 16:23:18 Office Visit Kelly Reynaga [facility] MEDICAL OFFICE BUILDING 1..840.114 350.1.13.10 4.2.7.2.686 [id number] [facility] 2022-02-07 14:30:00 2022-02-07 16:23:[address] [facility] [id number] [facility] 2022-02-07 14:30:00 2022-02-07 14:30:00 Outpatient R KELLY REYNAGA [facility] [id number] [facility] 2022-02-04 00:00:00 2022-02-04 00:00:00 Telephone [facility] Hospital[facility]EL [facility] MEDICAL OFFICE BUILDING 1.2.840.114 350.1.13.10 4.2.7.2.686 [id number] [facility] 2022-02-04 00:00:00 2022-02-04 00:00:00 Orders Only Doctor Unassigned, [place] [facility] 1.2.840.114 350.1.13.10 4.2.7.2.686 [id number] [facility] 2022-02-03 00:00:00 2022-02-03 00:00:00 Telephone Stephenie [facility]agaSelect [facility] HospitalMARY [facility]O?KEL [facility] MEDICAL OFFICE BUILDING 1.2.840.114 350.1.13.10 4.2.7.2.686 [id number] [facility] 2022-01-31 00:00:00 2022-01-31 00:00:00 Telephone Stephenie [facility]agaSelect [facility] HospitalMARY POLO?KEL [facility] MEDICAL OFFICE BUILDING 1.2.840.114 350.1.13.10 4.2.7.2.686 [id number] [facility] 2022-01-24 00:00:00 2022-01-24 00:00:00 Telephone Stephenie [facility]agaSelect [facility] HospitalMARY [facility] BU[facility] 1.2.840.114 350.1.13.10 4.2.7.2.686 [id number] [facility] 2022-01-22 00:00:00 2022-01-22 00:00:00 Patient Secure Msg Mirtha Bowman [facility] MED[facility] OFF[facility] BUILDING 1.2840.114 350.1.13.10 4.2.7.2.686 [id number] [facility] 2022-01-22 00:00:00 2022-01-22 00:00:00 Patient Secure Msg Mirtha Bowman [facility] MED[facility] OFF[facility] BUILDING 1.20.114 350.1.13.10 4.2.7.2.686 [id number] [facility] 2022-01-22 00:00:00 2022-01-22 00:00:00 Patient Secure Msg [facility] MED[facility] OFF[facility] BUILDING 1.284.114 350.1.13.10 4.2.7.2.686 [id number] [facility] 2022-01-20 00:00:00 2022-01-20 00:00:00 Raj [facility]ie [facility] MED[facility] OFF[facility] BUILDING 1.84.114 350.1.13.10 4.2.7.2.686 [id number] [facility] 2022-01-17 14:15:00 2022-01-17 23:59:00 Outpatient R ELIZABETHKELLY HERRON [facility] [id number] [facility] 2022-01-17 14:15:00 2022-01-17 14:15:00 Outpatient R KELLY REYNAGA [facility] [id number] [facility] 2022-01-17 14:00:00 2022-01-17 14:15:00 Electrical Lineman Visit Lab, River JohnsonStephenie herronAtrium Health Cabarr[facility] MED[facility] OFF[facility] BUILDING 1.284.114 350.1.13.10 4.2.7.2.686 [id number] [facility] 2022-01-17 13:30:00 2022-01-17 14:10:08 Office Visit Kelly Reynaga [facility] OFF[facility] BUILDING 1..840.114 350.1.13.10 4.2.7.2.686 [id number] [facility] 2022-01-17 13:30:00 2022-01-17 13:30:00 Outpatient R KELLY REYNAGA [facility] [id number] [facility] 2021-12-25 00:00:00 2021-12-25 00:00:00 Orders Only Doctor Unassigned, [place] [facility] 1..840.114 350.1.13.10 4.2.7.2.686 [id number] [facility] 2021-12-24 17:15:00 2021-12-24 17:30:00 Electrical Lineman Visit Pob, Adc Lab Main Kelly Reynaga [facility] NAL BUILDING 1..840.114 350.1.13.10 4.2.7.2.686 [id number] [facility] 2021-12-24 17:15:00 2021-12-24 17:15:00 Outpatient R KELLY REYNAGA [facility] [id number] [facility] 2021-12-24 16:30:00 2021-12-24 17:02:50 Outpatient R KELLY REYNAGA [facility] [id number] [facility] 2021-12-24 16:30:00 2021-12-24 17:02:50 Office Visit Kelly Reynaga [facility] BUILD[facility] 1..840.114 350.1.13.10 4.2.7.2.686 [id number] [facility] 2021-12-24 00:00:00 2021-12-24 00:00:00 Telephone [facility] 1..840.114 350.1.13.10 4.2.7.2.686 [id number] [facility] 2021-12-24 00:00:00 2021-12-24 00:00:00 [facility]?KEL [facility] MEDICAL OFFICE BUILDING 1.2.840.114 350.1.13.10 4.2.7.2.686 [id number] [facility] 2021-12-10 00:00:00 2021-12-10 00:00:00 Case Management Anne Martin [facility] 1..840.114 350.1.13.10 4.2.7.2.686 [id number] [facility] 2021-12-06 14:00:00 2021-12-06 14:00:00 Outpatient R KELLY REYNAGA [facility] [id number] [facility] 2021-11-29 08:00:00 2021-11-29 08:00:00 Outpatient R KELLY REYNAGA [facility] [id number] [facility] 2021-11-18 14:00:00 2021-11-18 14:00:[address] [facility] [id number] [facility] 2021-11-16 00:00:00 2021-11-16 00:00:00 Telephone [facility]?K[facility] MEDICAL OFFICE BUILDING 1..840.114 350.1.13.10 4.2.7.2.686 [id number] [facility] 2021-11-14 14:00:00 2021-11-14 14:00:00 Outpatient R ELIZABETHKELLY HERRON [facility] [id number] [facility] 2021-11-05 14:15:00 2021-11-05 15:07:08 Office Visit Nj Bullock [facility] BUILDING 1..840.114 350.1.13.10 4.2.7.2.686 [id number] [facility] 2021-11-05 14:15:00 2021-11-05 15:07:[address] [facility] [id number] [facility] 2021-11-05 14:15:00 2021-11-05 14:15:[address] [facility] [id number] [facility] 2021-11-05 00:00:00 2021-11-05 00:00:00 Orders Only Doctor Unassigned, [place] [facility] 1..840.114 350.1.13.10 4.2.7.2.686 [id number] [facility] 2021-10-28 14:00:00 2021-10-28 14:00:00 Outpatient R KELLY REYNAGA [facility] [id number] [facility] 2021-10-23 22:47:00 2021-10-24 01:33:00 Emergency X MALACHI DURAN [facility] ERT [id number] [facility] 2021-10-23 22:47:00 2021-10-24 01:33:00 Emergency Chris Durann R [facility] 1..840.114 350.1.13.10 4.2.7.2.686 [id number] [facility] 2021-10-15 13:30:00 2021-10-15 14:20:[address] [facility] [id number] [facility] 2021-10-15 13:30:00 2021-10-15 14:20:44 Office Visit Anene, [facility]?KEL [facility] MEDICAL OFFICE BUILDING 1.2.840.114 350.1.13.10 4.2.7.2.686 [id number] [facility] 2021-10-15 13:30:00 2021-10-15 14:20:44 Outpatient R KELLY REYNAGA [facility] [id number] [facility] 2021-10-14 16:45:00 2021-10-14 18:51:00 Emergency X Burke POSEY [facility] ERT [id number] [facility] 2021-10-14 16:45:00 2021-10-14 18:51:00 Emergency Burke Posey Fatuma [facility] 1.2.840.114 350.1.13.10 4.2.7.2.686 [id number] [facility] 2021-10-14 16:45:00 2021-10-14 18:51:00 Emergency X Burke POSEY [facility] ERT [id number] [facility] 2021-10-08 00:00:00 2021-10-08 00:00:00 Pedro [facility] MEDICAL OFFICE BUILDING 1.2.840.114 350.1.13.10 4.2.7.2.686 [id number] [facility] 2021-10-01 11:30:00 2021-10-01 11:30:00 Outpatient R KELLY REYNAGA [facility] [id number] [facility] 2021-09-16 08:30:00 2021-09-16 08:30:00 Outpatient Esdras REYNAGA KELLY [facility] [id number] [facility] 2021-09-16 08:30:00 2021-09-16 08:30:00 Outpatient R JUHI KELLY [facility] [id number] [facility] 2021-09-13 09:18:02 2021-09-13 23:59:00 Outpatient R MARLEY CAMARILLO [facility] [id number] [facility] 2021-09-13 09:18:02 2021-09-13 23:59:00 Hospital Encounter Marley Camarillo [facility] 1.2.840.114 350.1.13.10 4.2.7.2.686 [id number] [facility] 2021-09-13 00:00:00 2021-09-13 00:00:00 Orders Only Doctor Unassigned, [place] [facility] 1..840.114 350.1.13.10 4.2.7.2.686 [id number] [facility] 2021-09-03 00:00:00 2021-09-03 00:00:00 Patient Secure Msg Doctor Unassigned, [place] [facility] MED[facility] BUILDING 1..840.114 350.1.13.10 4.2.7.2.686 [id number] [facility] 2021-09-02 14:30:00 2021-09-02 14:30:[address] [facility] [id number] [facility] 2021-08-30 12:00:00 2021-08-30 12:15:00 Electrical Lineman Visit Lab, Stephenie [facility] 1..840.114 350.1.13.10 4.2.7.2.686 [id number] [facility] 2021-08-30 12:00:00 2021-08-30 12:00:[address] [facility] [id number] [facility] 2021-08-30 12:00:00 2021-08-30 12:00:00 Electrical Lineman Visit Lab, Ang - Db Anene, [facility] 1.0.114 350.1.13.10 4.2.7.2.686 [id number] [facility] 2021-08-30 11:30:00 2021-08-30 11:34:07 Office Visit Juhi [facility] 1.0.114 350.1.13.10 4.2.7.2.686 [id number] [facility] 2021-08-30 11:30:00 2021-08-30 11:34:07 [id number] 2021-08-08 10:30:00 2021-08-08 10:30:00 Outpatient R KELLY REYNAGA [facility] [id number] [facility] 2021-08-08 00:00:00 2021-08-08 00:00:00 Orders Only Doctor Unassigned, [place] [facility] 1.0.114 350.1.13.10 4.2.7.2.686 [id number] [facility] 2021-08-07 13:30:00 2021-08-07 13:30:00 Outpatient R KELLY REYNAGA [facility] [id number] [facility] 2021-07-30 00:00:00 2021-07-30 00:00:00 Patient Secure Msg Doctor Unassigned, [place] [facility] 1.0.114 350.1.13.10 4.2.7.2.686 [id number] [facility] 2021-07-27 00:00:00 2021-07-27 00:00:00 Nurse Triage Susan [facility]ilera [facility] 1.0.114 350.1.13.10 4.2.7.2.686 [id number] [facility] 2021-07-01 00:00:00 2021-07-01 00:00:00 Telephone Provider, [facility] 1.84.114 350.1.13.10 4.2.7.2.686 [id number] [facility] 2021-06-28 16:40:00 2021-06-28 17:00:00 Urgent Care [facility] 1.840.114 350.1.13.10 4.2.7.2.686 [id number] [facility] 2021-06-28 16:40:00 2021-06-28 16:40:[address] [facility] [id number] [facility] [facility] 00:00:00 2021-06-28 00:00:00 Patient Secure Kelly Zamora [facility] 1.840.114 350.1.13.10 4.2.7.2.686 [id number] [facility] 2021-06-26 09:30:00 2021-06-26 09:45:00 Electrical Lineman Visit Pob, Adc Lab Main Cem Port[facility] 1.840.114 350.1.13.10 4.2.7.2.686 [id number] [facility] 2021-06-26 09:30:00 2021-06-26 09:30:[address] [facility] [id number] [facility] 2021-06-26 00:00:00 2021-06-26 00:00:00 Orders Only Doctor Unassigned, [place] [facility] 1.840.114 350.1.13.10 4.2.7.2.686 [id number] [facility] 2021-06-20 00:00:00 2021-06-20 00:00:00 [facility] 1.840.114 350.1.13.10 4.2.7.2.686 [id number] [facility] 2021-06-14 10:15:00 2021-06-14 10:30:00 Laboratory Only Only, Ang Db Test Celina Uribe [facility] 1.84.114 350.1.13.10 4.2.7.2.686 [id number] [facility] 2021-06-14 10:15:00 2021-06-14 10:15:00 Outpatient R CELINA URIBE [facility] [id number] [facility] 2021-05-30 00:00:00 2021-05-30 00:00:00 Patient Secure Msg [facility] 1.84.114 350.1.13.10 4.2.7.2.686 [id number] [facility] 2021-05-29 00:00:00 2021-05-29 00:00:00 Outpatient R JUHISTEPHENIEKELLY [facility] [id number] [facility] 2021-05-29 00:00:00 2021-05-29 00:00:00 Outpatient R JUHISTEPHENIEKELLY [facility] [id number] [facility] 2021-05-23 14:30:00 2021-05-23 14:45:00 Electrical Lineman Visit Lab, Ang - Db [facility] 1.840.114 350.1.13.10 4.2.7.2.686 [id number] [facility] 2021-05-23 14:30:00 2021-05-23 14:30:00 Outpatient R KELLY REYNAGA [facility] [id number] [facility] 2021-05-23 13:30:00 2021-05-23 14:24:35 [facility] [id number] [facility] 2021-05-23 13:30:00 2021-05-23 14:24:35 [facility] 1.840.114 350.1.13.10 4.2.7.2.686 [id number] [facility] 2021-05-23 13:30:00 2021-05-23 14:24:35 Outpatient R KELLY REYNAGA [facility] [id number] [facility] 2021-05-10 09:20:00 2021-05-10 09:43:39 Outpatient R NICKY PECK [facility] [id number] [facility] 2021-05-10 09:16:09 2021-05-10 09:26:09 Imm/Inj Visit Vaccine, Ang Db Cbc Fam Unknown, Attending [facility] 1.840.114 350.1.13.10 4.2.7.2.686 [id number] [facility] 2021-05-10 09:20:00 2021-05-10 09:20:00 Outpatient R UNKNOWN, ATTENDING [facility] [id number] [facility] 2021-05-09 00:00:00 2021-05-09 00:00:00 Telephone Celina Uribe [facility] 1..840.114 350.1.13.10 4.2.7.2.686 [id number] [facility] 2021-05-07 13:36:55 2021-05-07 13:56:55 Urgent Care Celina Uribe [facility] 1.2.840.114 350.1.13.10 4.2.7.2.686 [id number] [facility] 2021-05-07 13:20:00 2021-05-07 13:20:00 Outpatient R CELINA URIBE [facility] [id number] [facility] 2021-05-07 00:00:00 2021-05-07 00:00:00 [facility] 1.2.840.114 350.1.13.10 4.2.7.2.686 [id number] [facility] 2021-04-22 12:15:00 2021-04-22 12:15:00 Out[facility] [id number] [facility] 2021-04-22 11:24:12 2021-04-22 11:39:12 Electrical Lineman Visit Lab, [place] [facility] 1.2.840.114 350.1.13.10 4.2.7.2.686 [id number] [facility] 2021-04-22 10:30:30 2021-04-22 11:22:34 [facility] 1.2.840.114 350.1.13.10 4.2.7.2.686 [id number] [facility] 2021-04-22 10:30:00 2021-04-22 11:22:34 Outpatient [facility] [id number] [facility] 2021-04-16 10:30:00 2021-04-16 10:30:00 Outpatient R KELLY REYNAGA [facility] [id number] [facility] 2021-04-15 00:00:00 2021-04-15 00:00:00 [facility] 1.2.840.114 350.1.13.10 4.2.7.2.686 [id number] [facility] 2021-04-15 00:00:00 2021-04-15 00:00:00 [facility] 1.2.840.114 350.1.13.10 4.2.7.2.686 [id number] [facility] 2021-03-27 13:32:13 2021-03-27 13:52:13 Urgent Care Rony [facility] Medical Office Building 1.2.840.114 350.1.13.10 4.2.7.2.686 [id number] [facility] 2021-03-27 13:30:00 2021-03-27 13:30:00 Outpatient Esdras URIBE CELINA [facility] [id number] [facility] 2021-03-18 13:00:00 2021-03-18 13:00:00 Outpatient R SIVAKUMAR FISHER [facility] [id number] [facility] 2021-02-07 17:08:23 2021-02-07 17:28:23 Urgent Care Viola Spivey [facility] Medical Office Building 1.2.840.114 350.1.13.10 4.2.7.2.686 [id number] [facility] 2021-02-07 17:00:00 2021-02-07 17:00:00 Out[address] Es[address]as URIBE CELINA [facility] [id number] [facility] 2021-02-04 00:00:00 2021-02-04 00:00:00 Nurse Triage [facility] 1.84.114 350.1.13.10 4.2.7.2.686 [id number] [facility] 2021-02-04 00:00:00 2021-02-04 00:00:00 Nurse Triage [facility] 1.840.114 350.1.13.10 4.2.7.2.686 [id number] [facility] 2021-01-17 18:01:55 2021-01-17 18:21:55 Urgent Care Patric [facility] Office Building [facility] 1.840.114 350.1.13.10 4.2.7.2.686 [id number] [facility] 2021-01-17 18:00:00 2021-01-17 18:00:00 [facility] [id number] [facility] 2021-01-10 17:55:42 2021-01-10 18:45:04 Urgent Care Diana Bernard [facility] 1.840.114 350.1.13.10 4.2.7.2.686 [id number] [facility] 2021-01-10 17:40:00 2021-01-10 17:40:00 [facility] [id number] [facility] 2020-11-15 19:00:00 2020-11-15 19:00:[address] [facility] [id number] [facility] 2020-10-26 09:45:00 2020-10-26 23:59:00 Hospital Encounter Kelly Reynaga [facility] 1.2.840.114 350.1.13.10 4.2.7.2.686 [id number] 2020-10-26 09:45:00 2020-10-26 23:59:00 Hospital Encounter Kelly Reynaga [facility] 1.2.840.114 350.1.13.10 4.2.7.2.686 [id number] [facility] 2020-10-26 08:47:17 2020-10-26 09:07:17 Urgent Care Provider, [facility] 1.2.840.114 350.1.13.10 4.2.7.2.686 [id number] 2020-10-26 08:47:17 2020-10-26 09:07:17 [facility] Care [facility] 1.2.840.114 350.1.13.10 4.2.7.2.686 [id number] [facility] 2020-10-26 09:00:00 2020-10-26 09:00:00 Outpatient R KELLY REYNAGA [facility] [id number] [facility] 2020-10-26 00:00:00 2020-10-26 00:00:00 Telephone Provider, [facility] 1.2840.114 350.1.13.10 4.2.7.2.686 [id number] 2020-10-26 00:00:00 2020-10-26 00:00:00 Orders Only Doctor Unassigned, [place] [facility] 1.2.840.114 350.1.13.10 4.2.7.2.686 [id number] 2020-10-26 00:00:00 2020-10-26 00:00:00 Orders Only Doctor Unassigned, [place] [facility] 1.2.840.114 350.1.13.10 4.2.7.2.686 [id number] [facility] 2020-10-26 00:00:00 2020-10-26 00:00:00 Telephone Provider, [facility] Office [facility] 1.2.840.114 350.1.13.10 4.2.7.2.686 [id number] [facility] 2020-10-17 00:00:00 2020-10-17 00:00:00 Telephone Provider, [facility] Office [facility] 1.2.840.114 350.1.13.10 4.2.7.2.686 [id number] 2020-10-17 00:00:00 2020-10-17 00:00:00 Telephone Provider, [facility] 1.2.840.114 350.1.13.10 4.2.7.2.686 [id number] [facility] 2020-10-16 09:22:16 2020-10-16 10:22:39 Urgent Care Provider, [facility] 1.2.840.114 350.1.13.10 4.2.7.2.686 [id number] 2020-10-16 09:22:16 2020-10-16 10:22:39 Urgent Care Provider, [facility] Kelly Quezada [facility] Office [facility] One 1.2.840.114 350.1.13.10 4.2.7.2.686 [id number] [facility] 2020-10-16 09:00:00 2020-10-16 09:00:[address] [facility] [id number] [facility] 2020-09-19 16:10:00 2020-09-19 08:56:31 Outpatient R STEVE MURO [facility] [id number] [facility] 2020-08-29 16:10:00 2020-08-29 15:31:49 Outpatient R STEVE MURO [facility] [id number] [facility] Results Test Description Test Time Test Comments Results Result Comments Source CT SOFT TISSUE NECK W CONTRAST 10:36:28 ORDERING PHYSICIAN: ELIOT CHEUNG CLINICAL HISTORY: Neck abscess, deep tissue S/P Recent uvulopharyngoplasty with hyoid suspension presenting withhemoptysis TECHNIQUE: CT of the neck soft tissues was performed after administrationof intravenous ?contrast. CT was performed according to ALARA (as low asreasonably achievable) principle. COMPARISON: none FINDINGS: The visualized brain parenchyma demonstrates no focal masslesions or mass effect. The opacified vessels of [place] areunremarkable. The orbits and intraorbital contents are normal inappearance. The ?paranasal sinuses and temporal bone structures are clear. The oral cavity, tongue and tongue base are unremarkable. The nasopharynx,oropharynx, hypopharynx, larynx and subglottic airways are patent andsymmetric without evidence of mucosal thickening, abnormal enhancement orfocal mass lesions. The epiglottis, vallecula, piriform sinuses and truevocal cords are normal in appearance. The parotid, submandibular and thyroid glands are normal in appearance. Thecarotid and jugular vessels appear patent. There are scattered bilateralcervical chain lymph nodes, none which are enlarged by CT size criteria. Nosoft tissue mass lesions or focal abscess formation is identified. The included lung apices are clear. No acute osseous abnormalities areidentified. [facility] Branch[facility] (AUTOMATED)2023-12-11 16:57:53* Test Item Value Reference Range Interpretation Comme [facility] POCT GLU (test code = 3301032819) 138 mg/dL 70-110 H Lab Interpretation (test cod e = 48790-2) [facility] 16:57:53* Test Item Value Reference Range Interpretation Comme [facility] POCT GLU (test code = 1606153683) 138 mg/dL 70-110 H Lab Interpretation (test cod e = 44292-1) [facility]:22:19* Test Item Value Reference Range Interpretation Comme nts MAGNESIUM (test code = 9076751262) 2.2 mg/dL 1.7-2.4 Lab Interpretation (test cod e = 13238-9) [facility] 14:22:19* Test Item Value Reference Range Interpretation Comme nts MAGNESIUM (test code = 0947546388) 2.2 mg/dL 1.7-2.4 Lab Interpretation (test cod e = 71485-2) Normal [facility] GLUCOSE (AUTOMATED)2023-12-11 13:32:45* Test Item Value Reference Range Interpretation Comme nts POCT GLU (test code = 1571178843) 159 mg/dL 70-110 H Lab Interpretation (test cod e = 03699-0) Abnormal [facility] GLUCOSE (AUTOMATED)2023-12-11 13:32:45* Test Item Value Reference Range Interpretation Comme nts POCT GLU (test code = 6122950491) 159 mg/dL 70-110 H Lab Interpretation (test cod e = 14153-7) Abnormal [facility] Metabolic Panel (NA, K, CL, CO2, GLUCOSE, BUN, CREATININE, CA)2023-12-11 11:45:14* Test Item Value Reference Range Interpretation Comme nts NA (test code = 9254956968) 141 mmol/L 135-145 K (test code = 0953968255) 3.9 mmol/L 3.5-5.0 CL (test code = 8601262058) 108 mmol/L 98-108 CO2 TOTAL (test code = 7840901710) 27 mmol/L 23-31 AGAP (test code = 7360563590) 6 2-16 BUN (test code = 3583443562) 12 mg/dL 7-23 GLUCOSE (test code = 9827563418) 173 mg/dL 70-110 H CREATININE (test code = 2160-0) 0.57 mg/dL 0.50-1.04 CALCIUM (test code = 3165159112) 8.7 mg/dL 8.6-10.6 eGFR (test code = 74615-2) 125.6 mL/min/1.73m2 CKD-EPI eGFR (2020). Assuming creatinine has been stable day-to-day for at least three months, the eGFR indicates Category G1 (>= 90 mL/min/1.73 m2) Lab Interpretation (test code = 87153-3) Abnormal [facility] Metabolic Panel (NA, K, CL, CO2, GLUCOSE, BUN, CREATININE, CA)2023-12-11 11:45:14* Test Item Value Reference Range Interpretation Comme nts NA (test code = 2017134658) 141 mmol/L 135-145 K (test code = 2651842524) 3.9 mmol/L 3.5-5.0 CL (test code = 0974519729) 108 mmol/L 98-108 CO2 TOTAL (test code = 2427723320) 27 mmol/L 23-31 AGAP (test code = 8999762169) 6 2-16 BUN (test code = 9808156154) 12 mg/dL 7-23 GLUCOSE (test code = 8408151983) 173 mg/dL 70-110 H CREATININE (test code = 2160-0) 0.57 mg/dL 0.50-1.04 CALCIUM (test code = 4458310932) 8.7 mg/dL 8.6-10.6 eGFR (test code = 25137-5) 125.6 mL/min/1.73m2 CKD-EPI eGFR (2020). Assuming creatinine has been stable day-to-day for at least three months, the eGFR indicates Category G1 (>= 90 mL/min/1.73 m2) Lab Interpretation (test code = 55423-0) Abnormal [facility] with Phpd4444-05-39 11:21:13* Test Item Value Reference Range Interpretation Comme nts WBC (test code = 6690-2) 15.69 4.30-11.10 H RBC (test code = 789-8) 3.88 3.93-5.25 L HGB (test code = 718-7) 11.4 g/dL 11.6-15.0 L HCT (test code = 4544-3) 35.8 % 35.7-45.2 MCV (test code = 787-2) 92.3 fL 80.6-95.5 MCH (test code = 785-6) 29.4 pg 25.9-32.8 MCHC (test code = 786-4) 31.8 g/dL 31.6-35.1 RDW-SD (test code = 98250-3) 42.0 fL 39.0-49.9 RDW-CV (test code = 788-0) 12.5 % 12.0-15.5 PLT (test code = 777-3) 333 166-358 MPV (test code = 41736-3) 10.0 fL 9.5-12.9 NRBC/100 WBC (test code = 4393759163) 0.0 0.0-10.0 NRBC x10^3 (test code = 9172640130) See_Comment [Automated message] The system which generated this result transmitted reference range: 10*3/?L. The reference range was not used to interpret this result as normal/abnormal. GRAN MAT (NEUT) % (test code = 770-8) 92.0 % IMM GRAN % (test code = 5568462178) 0.40 % LYMPH % (test code = 736-9) 6.2 % MONO % (test code = 5905-5) 1.3 % EOS % (test code = 713-8) 0.0 % BASO % (test code = 706-2) 0.1 % GRAN MAT x10^3(ANC) (test code = 5215635588) 14.43 10*3/uL 1.88-7.09 H IMM GRAN x10^3 (test code = 4108356651) 0.07 10*3/uL 0.00-0.06 H LYMPH x10^3 (test code = 731-0) 0.97 10*3/uL 1.32-3.29 L MONO x10^3 (test code = 742-7) 0.21 10*3/uL 0.33-0.92 L EOS x10^3 (test code = 711-2) 0.03-0.39 L BASO x10^3 (test code = 704-7) 0.01-0.07 Lab Interpretation (test code = 38293-3) Abnormal [facility] with Ouox6815-07-24 11:21:13* Test Item Value Reference Range Interpretation Comme nts WBC (test code = 6690-2) 15.69 4.30-11.10 H RBC (test code = 789-8) 3.88 3.93-5.25 L HGB (test code = 718-7) 11.4 g/dL 11.6-15.0 L HCT (test code = 4544-3) 35.8 % 35.7-45.2 MCV (test code = 787-2) 92.3 fL 80.6-95.5 MCH (test code = 785-6) 29.4 pg 25.9-32.8 MCHC (test code = 786-4) 31.8 g/dL 31.6-35.1 RDW-SD (test code = 27214-7) 42.0 fL 39.0-49.9 RDW-CV (test code = 788-0) 12.5 % 12.0-15.5 PLT (test code = 777-3) 333 166-358 MPV (test code = 62747-6) 10.0 fL 9.5-12.9 NRBC/100 WBC (test code = 0227585991) 0.0 0.0-10.0 NRBC x10^3 (test code = 3892547245) See_Comment [Automated message] The system which generated this result transmitted reference range: 10*3/?L. The reference range was not used to interpret this result as normal/abnormal. GRAN MAT (NEUT) % (test code = 770-8) 92.0 % IMM GRAN % (test code = 4836277803) 0.40 % LYMPH % (test code = 736-9) 6.2 % MONO % (test code = 5905-5) 1.3 % EOS % (test code = 713-8) 0.0 % BASO % (test code = 706-2) 0.1 % GRAN MAT x10^3(ANC) (test code = 3743929472) 14.43 10*3/uL 1.88-7.09 H IMM GRAN x10^3 (test code = 9715010652) 0.07 10*3/uL 0.00-0.06 H LYMPH x10^3 (test code = 731-0) 0.97 10*3/uL 1.32-3.29 L MONO x10^3 (test code = 742-7) 0.21 10*3/uL 0.33-0.92 L EOS x10^3 (test code = 711-2) 0.03-0.39 L BASO x10^3 (test code = 704-7) 0.01-0.07 Lab Interpretation (test code = 88106-0) Abnormal [facility] GLUCOSE (AUTOMATED)2023-12-11 01:23:03* Test Item Value Reference Range Interpretation Comme nts POCT GLU (test code = 1644704322) 168 mg/dL 70-110 H Lab Interpretation (test cod e = 72547-9) Abnormal [facility] GLUCOSE (AUTOMATED)2023-12-11 01:23:03* Test Item Value Reference Range Interpretation Comme nts POCT GLU (test code = 4872245862) 168 mg/dL 70-110 H Lab Interpretation (test cod e = 14376-6) Abnormal [facility] GLUCOSE (AUTOMATED)2023-12-10 22:21:36* Test Item Value Reference Range Interpretation Comme nts POCT GLU (test code = 3802681200) 155 mg/dL 70-110 H Lab Interpretation (test cod e = 31963-3) Abnormal [facility] GLUCOSE (AUTOMATED)2023-12-10 22:21:36* Test Item Value Reference Range Interpretation Comme nts POCT GLU (test code = 3212648874) 155 mg/dL 70-110 H Lab Interpretation (test cod e = 56855-3) Abnormal [facility] GLUCOSE (AUTOMATED)2023-12-10 17:52:15* Test Item Value Reference Range Interpretation Comme nts POCT GLU (test code = 6547685908) 125 mg/dL 70-110 H Lab Interpretation (test cod e = 80621-0) Abnormal [facility] GLUCOSE (AUTOMATED)2023-12-10 17:52:15* Test Item Value Reference Range Interpretation Comme nts POCT GLU (test code = 9499887789) 125 mg/dL 70-110 H Lab Interpretation (test cod e = 03401-8) Abnormal [facility] GLUCOSE (AUTOMATED)2023-12-10 16:37:22* Test Item Value Reference Range Interpretation Comme nts POCT GLU (test code = 4331141353) 114 mg/dL 70-110 H Lab Interpretation (test cod e = 30794-3) Abnormal [facility] GLUCOSE (AUTOMATED)2023-12-10 16:37:22* Test Item Value Reference Range Interpretation Comme nts POCT GLU (test code = 1803741082) 114 mg/dL 70-110 H Lab Interpretation (test cod e = 01169-1) Abnormal [facility] GLUCOSE (AUTOMATED)2023-12-09 14:58:19* Test Item Value Reference Range Interpretation Comme nts POCT GLU (test code = 5283052358) 114 mg/dL 70-110 H Lab Interpretation (test cod e = 86259-0) Abnormal [facility] GLUCOSE (AUTOMATED)2023-12-09 14:58:19* Test Item Value Reference Range Interpretation Comme nts POCT GLU (test code = 1039909721) 114 mg/dL 70-110 H Lab Interpretation (test cod e = 16865-4) Abnormal [facility] Glucose(Age >30days)2023-12-09 14:58:00* Test Item Value Reference Range Interpretation Comme nts POCT Glu (age>30days) (test code = 3342) 114 mg/dL 70-110 A Lab Interpretation (test cod e = 52302-3) Abnormal [facility] Glucose(Age >30days)2023-12-09 14:58:00* Test Item Value Reference Range Interpretation Comme nts POCT Glu (age>30days) (test code = 3342) 114 mg/dL 70-110 A Lab Interpretation (test cod e = 94658-2) Abnormal [facility] Ilbj7297-04-54 14:38:00* Test Item Value Reference Range Interpretation Comme nts POCT PREG (test code = 1605) Negative On board controls acceptable with C Line (test code = 3574) Yes POCT PREG LOT # (test code = 3575) POCT PREG TEST DATE ( test code = 3576) Lab Interpretation (test cod e = 19102-0) Normal [facility] Qflg5835-03-08 14:38:00* Test Item Value Reference Range Interpretation Comme nts POCT PREG (test code = 1605) Negative On board controls acceptable with C Line (test code = 3574) Yes POCT PREG LOT # (test code = 3575) POCT PREG TEST DATE ( test code = 3576) Lab Interpretation (test cod e = 62352-8) Normal [facility] GLUCOSE (AUTOMATED)2023-11-12 13:30:37* Test Item Value Reference Range Interpretation Comme nts POCT GLU (test code = 9332310136) 110 mg/dL 70-110 Lab Interpretation (test cod e = 07651-6) Normal [facility] GLUCOSE (AUTOMATED)2023-11-12 13:30:37* Test Item Value Reference Range Interpretation Comme nts POCT GLU (test code = 9169224744) 110 mg/dL 70-110 Lab Interpretation (test cod e = 98180-3) Normal [facility] Xomf6473-12-36 13:19:00* Test Item Value Reference Range Interpretation Comme nts POCT PREG (test code = 1605) Negative On board controls acceptable with C Line (test code = 3574) Yes POCT PREG LOT # (test code = 3575) POCT PREG TEST DATE ( test code = 3576) [facility] Dzyp0309-93-76 13:19:00* Test Item Value Reference Range Interpretation Comme nts POCT PREG (test code = 1605) Negative On board controls acceptable with C Line (test code = 3574) Yes POCT PREG LOT # (test code = 3575) POCT PREG TEST DATE ( test code = 3576) [facility] 23:12:38* Test Item Value Reference Range Interpretation Comme nts Height (test code = 4416869337) 60 in Weight (test code = 2591302331) 204 lbs Systolic BP (test code = 0398833419) 108 mmHg Diastolic BP (test code = 1115945281) 72 mmHg Heart Rate (test code = 7635679162) 102 bpm RVOT diameter (test code = 8151200745) 1.76 cm RVOT Proximal Diameter (test code = 2851818272) 2.16 cm MR max PG (test code = 0067969087) 42.80 mm[Hg] MR max camila (test code = 8375764917) 327.20 cm/s Ao root diam (test code = 7760850827) 2.42 cm Mr max camila (test code = 7976223794) 327.2 m/s Aortic root (test code = 2821151693) 2.42 cm Ao root annulus (test code = 4395943165) 2.42 cm BSA (test code = 1006742542) 1.88 m2 LVOT diameter (test code = 9329319868) 1.54 cm LVOT area (test code = 6055339813) 1.86 cm2 LA size (test code = 3097766631) 2.8 cm ACS (test code = 0146295623) 1.90 cm LVIDD (test code = 1571926363) 4.50 cm Left Ventricular End Diastolic Volume by Teichholz Method (test code = 0329217) 94.3 mL IVS (test code = 8125699027) 0.85 cm Interventricular Septum Diastolic Thickness by 2D (test code = 2442591) 0.85 cm LVPWD (test code = 3073027635) 0.81 cm PW (test code = 7453913755) 0.81 cm 0.6-1.1 EF(Teich) (test code = 6308229589) 55.10 % LVIDS (test code = 1793115021) 3.20 cm Left Ventricular End Systolic Volume by Teichholz Method (test code = 7185869) 42.4 mL FS (test code = 5171016316) 29 % EF - 2D (test code = 46376483) 55.10 % TR Peak Camila (test code = 7423259629) 267.9 cm/s Triscuspid Valve Regurgitation Peak Gradient (test code = 8229033412) 28.7 mmHg PV PEAK VELOCITY (test code = 3042333845) 96.9 cm/s PV peak gradient (test code = 6982873833) 3.8 mmHg MV E-F slope (test code = 0696019941) 43.60 cm/s MV Peak E Camila (test code = 8127393394) 103.2 cm/s MV Peak A Camila (test code = 8387178523) 78.6 cm/s E/A ratio (test code = 1691229710) 1.31 ratio MV valve area p 1/2 method (test code = 9296988299) 8.70 cm2 MV dec slope (test code = 0345539505) 1197.00 cm/s2 MV P1/2t max camila (test code = 5224373213) 103.80 cm/s LVOT stroke volume (test code = 1809141291) 34.20 cm3 LVOT peak camila (test code = 8286678000) 99.6 cm/s LVOT mn grad (test code = 0729024030) 1.7 mmHg AV LVOT peak gradient (test code = 7616529606) 4.0 mmHg LVOT peak VTI (test code = 3860783285) 18.4 cm LV V1 mean (test code = 6756464184) 59.30 cm/s Aortic valve mean velocity (test code = 3478782691) 79.3 cm/s Ao peak camila (test code = 2427435588) 136.4 cm/s Ao VTI (test code = 4183277955) 26.5 cm AV area by cont VTI (test code = 4952014734) 1.3 cm2 AV area peak camila (test code = 4116049085) 1.4 cm2 Ao max PG (test code = 0768894602) 7.40 mm[Hg] AV peak gradient (test code = 4957015374) 7.4 mmHg AV valve area (test code = 5846594017) 1.29 cm2 AV mean gradient (test code = 5114865258) 3.0 mmHg LAV(MOD-sp4) (test code = 2528860349) 15.30 mL LA Volume Index (BP) (test code = 6608331793) 8.6 mL/m2 LA volume (BP) (test code = 8244508927) 16.2 mL LAV(MOD-sp2) (test code = 1425299174) 17.10 mL A4C EF (test code = 8199134607) 60.00 % EF(sp4-el) (test code = 6381303837) 60.80 % SV(MOD-sp4) (test code = 4733406362) 28.80 mL SV(sp4-el) (test code = 8306648674) 29.80 mL RVOT area (test code = 5364400319) 2.43 cm2 Radiology Study observation (narrative) (test code = 88309-4) MIKE (test code = MIKE) ?Left?Ventricle: Left ventricle size is normal. Normal wall thickness. Normal wall motion. Hyperdynamic systolic function with a visually estimated EF of greater than 65%. Normal diastolic function. ?Right?Ventricle: Right ventricle size is normal. Normal systolic function. ?Tricuspid?Valve: Trace transvalvular regurgitation. Insufficient tricuspid regurgitation jet to estimate RVSP, but probably normal. ?RA pressure is 0-5 mmHg. Left VentricleLeft ventricle size is normal. Normal wall thickness. Normal wall motion. Hyperdynamic systolic function with a visually estimated EF of greater than 65%. Normal diastolic function.Right VentricleRight ventricle size is normal. Normal systolic function.Left AtriumLeft atrium size is normal.Right AtriumRight atrium size is normal.IVC/SVCIVC diameter is less than or equal to 21 mm and decreases greater than 50% during inspiration; therefore the estimated right atrial pressure is normal (~0-5 mmHg).Mitral ValveMitral valve structure is normal. Trace transvalvular regurgitation.Tricusp id ValveTricuspid valve structure is normal. Trace transvalvular regurgitation. Insufficient tricuspid regurgitation jet to estimate RVSP, but probably normal. RA pressure is 0-5 mmHg.Aortic ValveAortic valve structure is normal.Pulmonic ValveNot well visualized.Ascending AortaNormal sized aortic root.PericardiumThe pericardium is normal. No pericardial effusion.Study DetailsStudy quality was adequate. A complete echocardiogram was performed using 2D, color flow Doppler and spectral Doppler. [facility] Urinalysis W Specific [id number] 22:57:00* Test Item Value Reference Range Interpretation [...] 3267) Lab Interpretation (test cod e = 30173-4) Abnormal [facility] Urinalysis W Specific [id number] 22:57:00* Test Item Value Reference Range Interpretation [...] 3267) Lab Interpretation (test cod e = 79648-3) Abnormal [facility] [id number] 22:56:00* Test Item Value Reference Range Interpretation Comme nts POCT PREG (test code = 1605) Negative On board controls acceptable with C Line (test code = 3574) Yes POCT PREG LOT # (test code = 3575) POCT PREG TEST DATE ( test code = 3576) Lab Interpretation (test cod e = 88772-3) Normal [facility] [id number] 22:56:00* Test Item Value Reference Range Interpretation Comme nts POCT PREG (test code = 1605) Negative On board controls acceptable with C Line (test code = 3574) Yes POCT PREG LOT # (test code = 3575) POCT PREG TEST DATE ( test code = 3576) Lab Interpretation (test cod e = 70321-0) [facility], [id number] 01:22:28* Test Item Value Reference Range Interpretation Comme nts VIT B12 (test code = 0490807028) 260 pg/mL 240-930 MIKE (test code = MIKE) Biotin has been reported to cause a positive bias, interpret results relative to patient's use of biotin. Lab Interpretation (test code = 98124-6) [facility] B12, [id number] 01:22:28* Test Item Value Reference Range Interpretation Comme nts VIT B12 (test code = 9191641791) 260 pg/mL 240-930 MIKE (test code = MIKE) Biotin has been reported to cause a positive bias, interpret results relative to patient's use of biotin. Lab Interpretation (test code = 86938-7) [facility] [id number] 00:06:36 * Test Item Value Reference Range Interpretation Comme nts TSH (test code = 8828419953) 1.50 See_Comment [Automated messa ge] The system which generated this result transmitted reference range: 0.45 - 4.70 mIU/L. The reference range was not used to interpret this result as normal/abnormal. Lab Interpretation (test code = 68301-7) [facility] [id number] 00:06:36 * Test Item Value Reference Range Interpretation Comme nts TSH (test code = 6479089762) 1.50 See_Comment [Automated messa ge] The system which generated this result transmitted reference range: 0.45 - 4.70 mIU/L. The reference range was not used to interpret this result as normal/abnormal. Lab Interpretation (test code = 82284-7) [facility] METABOLIC PANEL (97341)2023-05-15 23:37:48* Test Item Value Reference Range Interpretation Comme nts NA (test code = 9782237448) 142 mmol/L 135-145 K (test code = 9186937380) 3.9 mmol/L 3.5-5.0 CL (test code = 1906806206) 105 mmol/L 98-108 CO2 TOTAL (test code = 6080997886) 26 mmol/L 23-31 AGAP (test code = 6511720253) 11 2-16 BUN (test code = 1109837069) 6 mg/dL 7-23 L GLUCOSE (test code = 8184656358) 109 mg/dL 70-110 CREATININE (test code = 0744025108) 0.67 mg/dL 0.50-1.04 TOTAL BILI (test code = 9397326162) 0.5 mg/dL 0.1-1.1 CALCIUM (test code = 2992615917) 9.3 mg/dL 8.6-10.6 T PROTEIN (test code = 5963396287) 7.3 g/dL 6.3-8.2 ALBUMIN (test code = 9249727665) 3.9 g/dL 3.5-5.0 ALK PHOS (test code = 1102087642) 210 U/L 34-122 H ALTv (test code = 1742-6) 30 U/L 5-35 AST(SGOT) (test code = 3116910742) 19 U/L 13-40 eGFR (test code = 41471-6) 121.5 mL/min/1.73m2 CKD-EPI eGFR (2020). Assuming creatinine has been stable day-to-day for at least three months, the eGFR indicates Category G1 (>= 90 mL/min/1.73 m2) Lab Interpretation (test code = 03368-7) [facility]normal [facility]2023-12-08 23:37:48* Test Item Value Reference Range Interpretation Comme nts MAGNESIUM (test code = 1402800818) 2.0 mg/dL 1.7-2.4 Lab Interpretation (test cod e = 91830-8) [facility] METABOLIC PANEL (80704)2023-05-15 23:37:48* Test Item Value Reference Range Interpretation Comme nts NA (test code = 9197482364) 142 mmol/L 135-145 K (test code = 1638384883) 3.9 mmol/L 3.5-5.0 CL (test code = 2647575410) 105 mmol/L 98-108 CO2 TOTAL (test code = 1505270918) 26 mmol/L 23-31 AGAP (test code = 8050951374) 11 2-16 BUN (test code = 6944063937) 6 mg/dL 7-23 L GLUCOSE (test code = 2398402420) 109 mg/dL 70-110 CREATININE (test code = 3637078667) 0.67 mg/dL 0.50-1.04 TOTAL BILI (test code = 4323267684) 0.5 mg/dL 0.1-1.1 CALCIUM (test code = 2012404052) 9.3 mg/dL 8.6-10.6 T PROTEIN (test code = 4382305742) 7.3 g/dL 6.3-8.2 ALBUMIN (test code = 2350935181) 3.9 g/dL 3.5-5.0 ALK PHOS (test code = 9940738981) 210 U/L 34-122 H ALTv (test code = 1742-6) 30 U/L 5-35 AST(SGOT) (test code = 5598515814) 19 U/L 13-40 eGFR (test code = 74657-8) 121.5 mL/min/1.73m2 CKD-EPI eGFR (2020). Assuming creatinine has been stable day-to-day for at least three months, the eGFR indicates Category G1 (>= 90 mL/min/1.73 m2) Lab Interpretation (test code = 10850-1) [facility]2023-12-08 23:37:48* Test Item Value Reference Range Interpretation Comme nts MAGNESIUM (test code = 3735028492) 2.0 mg/dL 1.7-2.4 Lab Interpretation (test cod e = 15058-8) Normal [facility] WITH [id number] 23:13:22* Test Item Value Reference Range Interpretation [...] 33.3 g/dL 31.6-35.1 RDW-SD (test code = 89087-1) 42.5 fL 39.0-49.9 RDW-CV (test code = 788-0) 12.9 % 12.0-15.5 PLT (test code = 777-3) 364 See_Comment H [Automated messa ge] The system which generated this result transmitted reference range: 166 - 358 10*3/?L. The reference range was not used to interpret this result as normal/abnormal. MPV (test code = 17619-8) 10.7 fL 9.5-12.9 NRBC/100 WBC (test code = 6140748611) 0.0 See_Comment [Automated me ssage] The system which generated this result transmitted reference range: 0.0 - 10.0 /100 WBCs. The reference range was not used to interpret this result as normal/abnormal. NRBC x10^3 (test code = 5703327483) See_Comment [Automated messa ge] The system which generated this result transmitted reference range: 10*3/?L. The reference range was not used to interpret this result as normal/abnormal. GRAN MAT (NEUT) % (test code = 770-8) 76.9 % IMM GRAN % (test code = 2015465819) 0.20 % LYMPH % (test code = 736-9) 17.2 % MONO % (test code = 5905-5) 4.5 % EOS % (test code = 713-8) 0.7 % BASO % (test code = 706-2) 0.5 % GRAN MAT x10^3(ANC) (test code = 4244981441) 9.46 10*3/uL 1.88-7.09 H IMM GRAN x10^3 (test code = 4444695810) 0.03 10*3/uL 0.00-0.06 LYMPH x10^3 (test code = 731-0) 2.11 10*3/uL 1.32-3.29 MONO x10^3 (test code = 742-7) 0.55 10*3/uL 0.33-0.92 EOS x10^3 (test code = 711-2) 0.08 10*3/uL 0.03-0.39 BASO x10^3 (test code = 704-7) 0.06 10*3/uL 0.01-0.07 Lab Interpretation (test code = 12384-9) Abnormal [facility] WITH [id number] 23:13:22* Test Item Value Reference Range Interpretation [...] 33.3 g/dL 31.6-35.1 RDW-SD (test code = 04805-0) 42.5 fL 39.0-49.9 RDW-CV (test code = 788-0) 12.9 % 12.0-15.5 PLT (test code = 777-3) 364 See_Comment H [Automated messa ge] The system which generated this result transmitted reference range: 166 - 358 10*3/?L. The reference range was not used to interpret this result as normal/abnormal. MPV (test code = 72925-9) 10.7 fL 9.5-12.9 NRBC/100 WBC (test code = 9754542517) 0.0 See_Comment [Automated me ssage] The system which generated this result transmitted reference range: 0.0 - 10.0 /100 WBCs. The reference range was not used to interpret this result as normal/abnormal. NRBC x10^3 (test code = 6011800214) See_Comment [Automated messa ge] The system which generated this result transmitted reference range: 10*3/?L. The reference range was not used to interpret this result as normal/abnormal. GRAN MAT (NEUT) % (test code = 770-8) 76.9 % IMM GRAN % (test code = 8242451919) 0.20 % LYMPH % (test code = 736-9) 17.2 % MONO % (test code = 5905-5) 4.5 % EOS % (test code = 713-8) 0.7 % BASO % (test code = 706-2) 0.5 % GRAN MAT x10^3(ANC) (test code = 3631197255) 9.46 10*3/uL 1.88-7.09 H IMM GRAN x10^3 (test code = 4851003530) 0.03 10*3/uL 0.00-0.06 LYMPH x10^3 (test code = 731-0) 2.11 10*3/uL 1.32-3.29 MONO x10^3 (test code = 742-7) 0.55 10*3/uL 0.33-0.92 EOS x10^3 (test code = 711-2) 0.08 10*3/uL 0.03-0.39 BASO x10^3 (test code = 704-7) 0.06 10*3/uL 0.01-0.07 Lab Interpretation (test code = 81568-9) Abnormal [facility] [id number] 21:00:00* Test Item Value Reference Range Interpretation Comme nts POCT PREG (test code = 1605) Negative On board controls acceptable with C Line (test code = 3574) Yes POCT PREG LOT # (test code = 3575) POCT PREG TEST DATE ( test code = 3576) [facility] [id number] 21:00:00* Test Item Value Reference Range Interpretation Comme nts POCT PREG (test code = 1605) Negative On board controls acceptable with C Line (test code = 3574) Yes POCT PREG LOT # (test code = 3575) POCT PREG TEST DATE ( test code = 3576) [facility]ownN-TELOPEPTIDE, [id number] 18:48:52* Test Item Value Reference Range Interpretation Comme nts NTX SERUM (test code = 45873-3) 12.3 nM BCE INTERPRETIVE INF ORMATION: N-Telopeptide, Cross-Linked, Serum ?Adult Male.......................5.4 - 24.2 nM BCE ?Premenopausal Adult Female.......6.2 - 19.0 nM BCE The target value for treated post-menopausal adult females is the same as the premenopausal reference interval. BCE = Bone Collagen EquivalentPerformed By: [facility] [place] [id number] Director: Jc Albarran MD, PhDCLIA Number: [id number] [facility]ownN-TELOPEPTIDE, [id number] 18:48:52* Test Item Value Reference Range Interpretation Comme nts NTX SERUM (test code = 02539-7) 12.3 nM BCE INTERPRETIVE INF ORMATION: N-Telopeptide, Cross-Linked, Serum ?Adult Male.......................5.4 - 24.2 nM BCE ?Premenopausal Adult Female.......6.2 - 19.0 nM BCE The target value for treated post-menopausal adult females is the same as the premenopausal reference interval. BCE = Bone Collagen EquivalentPerformed By: [facility] [place] [id number] Director: Jc Albarran MD, PhDCLIA Number: [id number] [facility]ownINTACT PTH CALCIUM [id number] 20:29:31* Test Item Value Reference Range Interpretation Comme nts PTH-INTACT (test code = 5110854900) 34.9 pg/mL 12.0-88.0 PTH-CA Interpretation (test code = 9078706657) PTH IS Appropria te for Calcium CALCIUM (test code = 6544527139) 9.8 mg/dL 8.6-10.6 [facility]ownINTACT PTH CALCIUM [id number] 20:29:31* Test Item Value Reference Range Interpretation Comme nts PTH-INTACT (test code = 1135621325) 34.9 pg/mL 12.0-88.0 PTH-CA Interpretation (test code = 3559965776) PTH IS Appropria te for Calcium CALCIUM (test code = 1164407096) 9.8 mg/dL 8.6-10.6 [facility]own[facility]IT[facility] D, [id number] 07:21:15* Test Item Value Reference Range Interpretation Comme nts VIT D 25OH (test code = 05199-5) 14 ng/mL 25-80 L MIKE (test code = MIKE) Deficiency: <20 ng/mLInsufficiency: 20-24 ng/mLOptimal: 25-80 ng/mL Lab Interpretation (test code = 04257-0) Abnormal [facility] D, [id number] 07:21:15* Test Item Value Reference Range Interpretation Comme nts VIT D 25OH (test code = 59839-2) 14 ng/mL 25-80 L MIKE (test code = MIKE) Deficiency: <20 ng/mLInsufficiency: 20-24 ng/mLOptimal: 25-80 ng/mL Lab Interpretation (test code = 72390-9) Abnormal [facility] D, [id number] 07:21:15* Test Item Value Reference Range Interpretation Comme nts VIT D 25OH (test code = 43400-2) 14 ng/mL 25-80 L MIKE (test code = MIKE) Deficiency: <20 ng/mLInsufficiency: 20-24 ng/mLOptimal: 25-80 ng/mL Lab Interpretation (test code = 62307-9) [facility]normal [facility] D, [id number] 07:21:15* Test Item Value Reference Range Interpretation Comme nts VIT D 25OH (test code = 94675-0) 14 ng/mL 25-80 L MIKE (test code = MIKE) Deficiency: <20 ng/mLInsufficiency: 20-24 ng/mLOptimal: 25-80 ng/mL Lab Interpretation (test code = 91177-3) Abnormal [facility]ownALKALINE PHOSPHATASE, [id number] 06:51:12 * Test Item Value Reference Range Interpretation Comme nts ALK PHOS (test code = 4058488871) 224 U/L 34-122 H Lab Interpretation (test cod e = 79863-7) Abnormal [facility]ownALKALINE PHOSPHATASE, [id number] 06:51:12 * Test Item Value Reference Range Interpretation Comme nts ALK PHOS (test code = 6794491039) 224 U/L 34-122 H Lab Interpretation (test cod e = 36233-2) Abnormal [facility]ownALKALINE PHOSPHATASE, [id number] 06:51:12 * Test Item Value Reference Range Interpretation Comme nts ALK PHOS (test code = 4401984657) 224 U/L 34-122 H Lab Interpretation (test cod e = 66486-9) Abnormal [facility]ownALKALINE PHOSPHATASE, [id number] 06:51:12 * Test Item Value Reference Range Interpretation Comme nts ALK PHOS (test code = 3084533081) 224 U/L 34-122 H Lab Interpretation (test cod e = 64464-0) [facility]normal [facility]ownPO[facility] [id number] 18:43:00* Test Item Value Reference Range Interpretation Comme nts POCT PREG (test code = 1605) Negative On board controls acceptable with C Line (test code = 3574) Yes POCT PREG LOT # (test code = 3575) POCT PREG TEST DATE ( test code = 3576) Lab Interpretation (test cod e = 15172-0) Normal [facility]ownPO[facility] [id number] 18:43:00* Test Item Value Reference Range Interpretation Comme nts POCT PREG (test code = 1605) Negative On board controls acceptable with C Line (test code = 3574) Yes POCT PREG LOT # (test code = 3575) POCT PREG TEST DATE ( test code = 357) Lab Interpretation (test cod e = 24385-6) Normal [facility] URINALYSIS W SPECIFIC [id number] 18:36:00* Test Item Value Reference Range Interpretation [...] U APPEAR (test code = 3267) CLOUDY [facility] URINALYSIS W SPECIFIC [id number] 18:36:00* Test Item Value Reference Range Interpretation [...] U APPEAR (test code = 3267) [facility] [id number] 13:52:00* Test Item Value Reference Range Interpretation Comme nts POCT PREG (test code = 1605) Negative On board controls acceptable with C Line (test code = 3574) Yes POCT PREG LOT # (test code = 3575) POCT PREG TEST DATE ( test code = 3576) [facility] [id number] 13:52:00* Test Item Value Reference Range Interpretation Comme nts POCT PREG (test code = 1605) Negative On board controls acceptable with C Line (test code = 3574) Yes POCT PREG LOT # (test code = 3575) POCT PREG TEST DATE ( test code = 3576) [facility] [id number] 15:52:00* Test Item Value Reference Range Interpretation Comme nts POCT PREG (test code = 1605) Negative On board controls acceptable with C Line (test code = 3574) Yes POCT PREG LOT # (test code = 3575) POCT PREG TEST DATE ( test code = 3576) [facility] [id number] 15:52:00* Test Item Value Reference Range Interpretation Comme nts POCT PREG (test code = 1605) Negative On board controls acceptable with C Line (test code = 3574) Yes POCT PREG LOT # (test code = 3575) POCT PREG TEST DATE ( test code = 3576) [facility] [id number] 20:30:00* Test Item Value Reference Range Interpretation Comme nts POCT PREG (test code = 1605) Negative On board controls acceptable with C Line (test code = 3574) Yes POCT PREG LOT # (test code = 3575) POCT PREG TEST DATE ( test code = 3576) [facility] [id number] 20:30:00* Test Item Value Reference Range Interpretation Comme nts POCT PREG (test code = 1605) Negative On board controls acceptable with C Line (test code = 3574) Yes POCT PREG LOT # (test code = 3575) POCT PREG TEST DATE ( test code = 3576) [facility] [id number] 16:46:00* Test Item Value Reference Range Interpretation Comme nts POCT PREG (test code = 1605) Negative On board controls acceptable with C Line (test code = 3574) Yes POCT PREG LOT # (test code = 3575) POCT PREG TEST DATE ( test code = 3576) [facility] [id number] 16:46:00* Test Item Value Reference Range Interpretation Comme nts POCT PREG (test code = 1605) Negative On board controls acceptable with C Line (test code = 3574) Yes POCT PREG LOT # (test code = 3575) POCT PREG TEST DATE ( test code = 3576) [facility] WITH [id number] 22:18:20* Test Item Value Reference Range Interpretation [...] g/dL 31.6-35.1 L RDW-SD (test code = 82779-4) 44.1 fL 39-49.9 RDW-CV (test code = 788-0) 14.9 % 12-15.5 PLT (test code = 777-3) See_Comment H [Automated messa ge] The system which generated this result transmitted reference range: 166 - 358 10*3/?L. The reference range was not used to interpret this result as normal/abnormal. MPV (test code = 55865-9) 9.3 fL 9.5-12.9 L NRBC/100 WBC (test code = 2202081022) See_Comment [Automated me ssage] The system which generated this result transmitted reference range: 0.0 - 10.0 /100 WBCs. The reference range was not used to interpret this result as normal/abnormal. NRBC x10^3 (test code = 1537442110) See_Comment [Automated messa ge] The system which generated this result transmitted reference range: 10*3/?L. The reference range was not used to interpret this result as normal/abnormal. GRAN MAT (NEUT) % (test code = 770-8) 74.6 % IMM GRAN % (test code = 6697200073) 0.50 % LYMPH % (test code = 736-9) 18.8 % MONO % (test code = 5905-5) 4.9 % EOS % (test code = 713-8) 0.7 % BASO % (test code = 706-2) 0.5 % GRAN MAT x10^3(ANC) (test code = 5424262974) 9.22 10*3/uL 1.88-7.09 H IMM GRAN x10^3 (test code = 0062794157) 0.06 10*3/uL 0-0.06 LYMPH x10^3 (test code = 731-0) 2.33 10*3/uL 1.32-3.29 MONO x10^3 (test code = 742-7) 0.61 10*3/uL 0.33-0.92 EOS x10^3 (test code = 711-2) 0.09 10*3/uL 0.03-0.39 BASO x10^3 (test code = 704-7) 0.06 10*3/uL 0.01-0.07 Lab Interpretation (test code = 26651-8) [facility]normal [facility]ownHEMOGLOBIN [id number] 06:32:55* Test Item Value Reference Range Interpretation Comme nts HEMOGLOBIN A1c (test code = 41366) 7.0 % 4.2-5.6 H [employer] GUIDELINES FOR HGB A1C: [...] CONSULTATION. UNLESS OTHERWISE INDICATED, ALL TESTING PERFORMED [facility] [employer] [address] [place] [id number] [place] REPAIRER: WILLY RAMOS M.D. [facility] NUMBER [id number] [facility] [place] [id number] Consult Notes Date/Time Note Provider Source 2023-12-10 12:34:17 Associated Order(s): CONSULT SURGICAL CO-MANAGEMENT (SCM) Images from the original note were not included. Surgical Co-Management Hospitalist (SCM) Consult Service Initial Postop Consultation Note Patient: Rosanne Resendiz Date of Consult: 12/10/2023 Referring Physician: Dr Martínez Reason for Consult: Medical co-management HPI: The patient is a 28-year-old female with a history of type 2 diabetes on Ozempic, morbid obesity, FAWN, tachycardia on propranolol while awaiting cardiology workup outpatient, chronic leukocytosis who was admitted for an elective uvulopalatoplasty which she underwent on December 08 due to intolerance to CPAP. She tolerated the procedure well initially but is unable to speak or drink any liquids at this time. Her mother is at bedside and states that she was coughing with even just a few mL of water. She confirmed that she takes propranolol and Ozempic, last dose of Ozempic was December 03. She has known about her WBC and denies any infections or other issues. SCM consulted for assistance with medical management. Surgery, Date: 12/09/2023 Procedure(s) (LRB): HYOID SUSPENSION (N/A) UVULOPHARYNGOPALATOPLASY (Bilateral) 3 Hr 4 Min 16 Sec Surgical and Procedural Summary Past Procedures (11/10/2023 to Today) Date Procedure/Visit Type Providers Status 11/12/2023 LARYNGOSCOPYEXAM UNDER ANESTHESIA ORAL CAVITY Laura Martínez (Primary)Pascual Callahan Discharged 12/09/2023 HYOID SUSPENSIONUVULOPHARYNGOPALATOPLASY Laura Martínez (Primary)Pascual Callahan Adithya Inpatient HISTORIES (personally reviewed by me): Active Ambulatory Problems Diagnosis Date Noted Subacute maxillary sinusitis 11/15/2020 Left arm pain 11/15/2020 Acute otitis media, bilateral 11/15/2020 Type 2 diabetes mellitus without complication, without long-term current use of insulin 08/08/2022 Morbid obesity 08/08/2022 FAWN (obstructive sleep apnea) 10/23/2023 Intolerance of continuous positive airway pressure (CPAP) ventilation 10/26/2023 Neutrophilia 12/08/2023 Pain in left foot 03/05/2022 Plantar fasciitis of left foot 03/05/2022 Resolved Ambulatory Problems Diagnosis Date Noted No Resolved Ambulatory Problems Past Medical History: Diagnosis Date Anemia Anxiety Transfusion history Past Surgical History: Procedure Laterality Date CHOLECYSTECTOMY COLONOSCOPY EXAM UNDER ANESTHESIA ORAL CAVITY (SHX) N/A 11/12/2023 Surgeon: Laura Martínez DDS; Location: [facility] FOOT ORIF (SHX) LARYNGOSCOPY (SHX) N/A 11/12/2023 Surgeon: Laura Martínez DDS; Location: [facility] Social History Socioeconomic History Marital status: Single Spouse name: Not on file Number of children: Not on file Years of education: Not on file Highest education level: Not on file Occupational History Not on file Tobacco Use Smoking status: Never Passive exposure: Never Smokeless tobacco: Never Vaping Use Vaping status: Never Used Substance and Sexual Activity Alcohol use: Yes Comment: ocassional Drug use: Never Sexual activity: Yes Partners: Male control/protection: Injection Other Topics Concern Not on file Social History Narrative Not on file Social Determinants of Health Financial Resource Strain: Patient Declined (12/05/2023) Overall Financial Resource Strain (CARDIA) Difficulty of Paying Living Expenses: Patient declined Food Insecurity: Patient Declined (12/05/2023) Hunger Vital Sign Worried About Running Out of Food in the Last Year: Patient declined Ran Out of Food in the Last Year: Patient declined Transportation Needs: No Transportation Needs (12/05/2023) PRAPARE - Transportation Lack of Transportation (Medical): No Lack of Transportation (Non-Medical): No Physical Activity: Inactive (12/05/2023) Exercise Vital Sign Days of Exercise per Week: 0 days Minutes of Exercise per Session: 20 min Stress: Stress Concern Present (12/05/2023) [employer] - Occupational Stress Questionnaire Feeling of Stress : Very much Social Connections: Moderately Integrated (12/05/2023) Social Connection and Isolation Panel [NHANES] Frequency of Communication with Friends and Family: Three times a week Frequency of Social Gatherings with Friends and Family: More than three times a week Attends Bahai Services: More than 4 times per year Active Member of Clubs or Organizations: Yes Attends Club or Organization Meetings: More than 4 times per year Marital Status: Never Intimate Partner Violence: Not on file Housing Stability: Unknown (12/05/2023) Housing Stability Vital Sign Unable to Pay for Housing in the Last Year: No Number of Places Lived in the Last Year: Not on file Unstable Housing in the Last Year: No Family History Problem Relation Age of Onset Hypertension Mother Diabetes Father Diabetes Maternal Grandfather Diabetes Paternal Grandmother Home medications: Prior to Admission medications Medication Sig Start Date End Date Taking? Authorizing Provider no115/iron/folic acid ( 19 ORAL) Take by mouth. Doctor Unassigned, [place] semaglutide (OZEMPIC) 1 mg/dose (4 mg/3 mL) PnIj inject 1 mg under the skin weekly. 10/21/23 Tian Caro MD propranoloL 10 mg tablet Take 1 tablet by mouth at bedtime. 09/22/23 09/21/24 Blake Pelletier MD Cholecalciferol, Vitamin D3, (VITAMIN D3) 50 mcg (2,000 unit) tablet Take 1 tablet by mouth in the morning. 07/23/23 Obey Cage BRIDGE MANAGER-BC DNP hydrOXYzine 25 mg tablet Take 1 tablet by mouth every 6 (six) hours as needed for Itching. 05/19/22 Nishant Chapman MD ketoconazole 2 % cream Apply to area(s) 2 (two) times daily. 05/19/22 Nishant Chapman MD triamcinolone acetonide 0.1 % cream Apply to area(s) 2 (two) times daily. 05/19/22 Nishant Chapman MD ferrous sulfate (IRON ORAL) Take by mouth. Doctor Unassigned, [place] chlorhexidine 0.12 % mouthwash 10/02/20 Doctor Unassigned, [place] Current Medications: Scheduled meds:insulin lispro (human), , TID MEALS+HS ampicillin-sulbactam (UNASYN) IV piggyback, 3 g, Q6H ABX chlorhexidine, 15 mL, BID IV meds:lactated ringers, Last Rate: 42 mL/hr at 12/10/23 0635 PRN meds:dextrose 50 % in water (D50W), 25 mL, PRN glucagon, 1 mg, PRN acetaminophen, 650 mg, Q6HPRN HYDROcodone-acetaminophen, 5 mg, Q6HPRN ketorolac, 15 mg, Q6HPRN ondansetron, 4 mg, Q4HPRN ALLERGIES: No Known Allergies REVIEW OF SYSTEMS All systems negative except as otherwise stated in HPI PHYSICAL EXAM BP 128/78 (BP Location: Left arm, Patient Position: Sitting) | Pulse 100 | Temp 36.4 ?C (97.5 ?F) | Resp 16 | Ht 1.524 m (5') | Wt 93.2 kg (205 lb 7.5 oz) | SpO2 94% | BMI 40.13 kg/m? Physical Exam Vitals reviewed. Constitutional: General: Patient is not in acute distress. Appearance: Normal appearance. HENT: Right Ear: External ear normal. Left Ear: External ear normal. Nose: Nose normal. Neck incision site clean, dry, intact Eyes: Extraocular Movements: Extraocular movements intact. Conjunctiva/sclera: Conjunctivae normal. Cardiovascular: Rate and Rhythm: Normal rate and regular rhythm. Pulses: Normal pulses. Heart sounds: Normal heart sounds. No murmur heard. Pulmonary: Effort: Pulmonary effort is normal. No respiratory distress. Breath sounds: Normal breath sounds. No wheezing. Abdominal: General: Bowel sounds are normal. There is no distension. Palpations: Abdomen is soft. Tenderness: There is no abdominal tenderness. Musculoskeletal: General: No swelling or tenderness. Normal range of motion. Skin: General: Skin is warm. Coloration: Skin is not jaundiced. Findings: No lesion. Neurological: General: No focal deficit present. Mental Status: patient is awake, alert, movies all extremities spontaneously, answers questions appropriately by nodding head, unable to speak LABS/IMAGING - reviewed, recent results as below: Lab Results Component Value Date/Time NA 137 12/10/2023 03:56 AM K 3.8 12/10/2023 03:56 AM CA 8.2 (L) 12/10/2023 03:56 AM CL 108 12/10/2023 03:56 AM BUN 10 12/10/2023 03:56 AM CREAT 0.58 12/10/2023 03:56 AM EGFR 125.0 12/10/2023 03:56 AM GLU 147 (H) 12/10/2023 03:56 AM TCO2 23 12/10/2023 03:56 AM WBC 20.60 (H) 12/10/2023 03:56 AM RBC 3.89 (L) 12/10/2023 03:56 AM PLT 343 12/10/2023 03:56 AM HGB 11.5 (L) 12/10/2023 03:56 AM HCT 34.6 (L) 12/10/2023 03:56 AM ALB 3.6 10/19/2023 08:13 AM TPRO 6.7 10/19/2023 08:13 AM BILIT 0.5 10/19/2023 08:13 AM BILIUNCON 0.2 10/05/2023 11:45 AM BILICONJ 0.0 10/05/2023 11:45 AM ALT 22 10/19/2023 08:13 AM AST 16 10/19/2023 08:13 AM ALKPHOS 219 (H) 10/19/2023 08:13 AM MG 2.2 09/11/2023 12:13 PM Most Recent UA: Lab Results Component Value Date/Time UPROTEIN Negative 10/23/2021 11:34 PM UPH 7.0 10/23/2021 11:34 PM UGLUCOSE Normal 10/23/2021 11:34 PM UKETONES Negative 10/23/2021 11:34 PM UBILI Negative 10/23/2021 11:34 PM ULEUKEST 500/uL (A) 10/23/2021 11:34 PM UNITRITE Negative 10/23/2021 11:34 PM USPGRAV 1.019 10/23/2021 11:34 PM Radiology (48 HRS): No final results containing an impression from the past 2 days were found. Lines/tubes/drains: Patient Lines/Drains/Airways Status Active LDAs Name Placement date Placement time Site Days Peripheral IV 12/09/23 1130 Right Wrist Ultrasound not used 12/09/23 1130 Wrist 1 ASSESSMENT & PLAN: Acute conditions: FAWN intolerant to CPAP Post op blood loss anemia Acute on chronic Leukocytosis Chronic, stable conditions: Morbid obesity BMI 40 DM2 on GLP-1 Tachycardia Pt with significant post op swelling/functional dysphagia to even liquids despite toradol. D/W OMFS and they are ok with steroids. Will give 10 mg IV dex x3 doses, monitor glucose on sliding scale. Anticipate her current WBC elevation is from procedural stress and WBC may climb higher with steroids, can monitor for now. She has a known chronic leukocytosis overall (see below). Continue aspiration precautions. Will follow for now. WBC Date Value Ref Range Status 12/10/2023 20.60 (H) 4.30 - 11.10 10*3/?L Final 10/05/2023 14.31 (H) 4.30 - 11.10 10*3/?L Final 05/15/2023 12.29 (H) 4.30 - 11.10 10*3/?L Final 03/26/2023 12.68 (H) 4.30 - 11.10 10*3/?L Final 11/12/2022 12.03 (H) 4.30 - 11.10 10*3/?L Final 06/27/2022 12.06 (H) 4.30 - 11.10 10*3/?L Final 06/12/2022 13.84 (H) 4.30 - 11.10 10*3/?L Final 02/19/2022 12.37 (H) 4.30 - 11.10 10*3/?L Final 12/24/2021 12.53 (H) 4.30 - 11.10 10*3/?L Final 08/30/2021 12.99 (H) 4.30 - 11.10 10*3/?L Final 08/07/2021 13.48 (H) 4.30 - 11.10 10*3/?L Final 06/26/2021 12.44 (H) 4.30 - 11.10 10*3/?L Final 05/23/2021 12.73 (H) 4.30 - 11.10 10*3/?L Final 04/22/2021 12.53 (H) 4.30 - 11.10 10*3/?L Final DVT Prophylaxis: Per Primary, Code Status: full Dispo: pending improvement Medical Barriers to discharge: PO intake Lyle Hooker MD, Surgical Co-Management Hospitalist Robotics Engineer General Internal Medicine Portions of this note were created using a voice-recognition transcribing system. Typographical errors and incorrect words or phrases may have been missed during proofreading. Please interpret accordingly. No LOS data to display The time spent for patient care includes: PreCharting (eg, review of tests, notes, etc.), Obtaining and/or reviewing separately obtained history (Care Everywhere or paper records), Performing a medically appropriate examination and/or evaluation, Counseling and educating the patient/family/caregiver, Ordering medications, tests, or procedures, Ordering referrals and/or communicating with other health hourly caregiver (when not separately reported), Documenting clinical information in the electronic or other health record, Independently interpreting results (not separately reported) and/or communicating results to the patient/family/caregiver, and Care coordination (not separately reported). I spent approx 76 minutes. IM-INTERNAL MEDICINE STAFF 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 Patient is s/p STEPHANIE, HS on 12/11/23 for moderate FAWN. Patient reports improvement in sleep with occasional snoring. She had an episode of blood tinged saliva and presented to [facility] ED and was DC without incident. Histories Past Medical History: Diagnosis Date Acute otitis media, bilateral 11/15/2020 Anemia Anxiety Left arm pain 11/15/2020 Pain in left foot 03/05/2022 Subacute maxillary sinusitis 11/15/2020 Transfusion history Type 2 diabetes mellitus without complication, without long-term current use of insulin Past Surgical History: Procedure Laterality Date CHOLECYSTECTOMY COLONOSCOPY EXAM UNDER ANESTHESIA ORAL CAVITY (SHX) N/A 11/12/2023 Surgeon: Laura Martínez DDS; Location: [facility] FOOT ORIF (SHX) HYOID SUSPENSION N/A 12/09/2023 Surgeon: Laura Martínez DDS; Location: [facility] LARYNGOSCOPY (SHX) N/A 11/12/2023 Surgeon: Laura Martínez DDS; Location: [facility] UVULOPHARYNGOPALATOPLASY Bilateral 12/09/2023 Surgeon: Laura Martínez DDS; Location: [facility] Family History Problem Relation Age of Onset Hypertension Mother Diabetes Father Diabetes Maternal Grandfather Diabetes Paternal Grandmother Social History Socioeconomic History Marital status: Single Tobacco Use Smoking status: Never Passive exposure: Never Smokeless tobacco: Never Vaping Use Vaping status: Never Used Substance and Sexual Activity Alcohol use: Yes Comment: ocassional Drug use: Never Sexual activity: Yes Partners: Male control/protection: Injection Social Determinants of Health Financial Resource Strain: Low Risk (12/10/2023) Overall Financial Resource Strain (CARDIA) Difficulty of Paying Living Expenses: Not hard at all Food Insecurity: No Food Insecurity (12/10/2023) Hunger Vital Sign Worried About Running Out of Food in the Last Year: Never true Ran Out of Food in the Last Year: Never true Transportation Needs: No Transportation Needs (12/05/2023) PRAPARE - Transportation Lack of Transportation (Medical): No Lack of Transportation (Non-Medical): No Physical Activity: Inactive (12/10/2023) Exercise Vital Sign Days of Exercise per Week: 0 days Minutes of Exercise per Session: 0 min Stress: Stress Concern Present (12/05/2023) [employer] - Occupational Stress Questionnaire Feeling of Stress : Very much Social Connections: Moderately Integrated (12/10/2023) Social Connection and Isolation Panel [NHANES] Frequency of Communication with Friends and Family: More than three times a week Frequency of Social Gatherings with Friends and Family: More than three times a week Attends Bahai Services: More than 4 times per year Active Member of Clubs or Organizations: Yes Attends Club or Organization Meetings: More than 4 times per year Marital Status: Never Housing Stability: Low Risk (12/10/2023) Housing Stability Vital Sign Unable to Pay for Housing in the Last Year: No Number of Places Lived in the Last Year: 1 Unstable Housing in the Last Year: No Review of Systems Constitutional: negative Skin: negative Eyes: negative Ears, nose, mouth, throat: (+) per HPI Cardio: negative Resp: negative GI: negative : negative PARDEEP: negative Neuro: negative Psych: negative Endo: negative Hem/Lymphatic: negative Allergic/Immunologic: negative Physical Exam BP 111/66 (BP Location: Left arm, Patient Position: Sitting, BP CUFF SIZE: Adult Medium) | Pulse 87 | Ht 1.524 m (5') | Wt 89.4 kg (197 lb 3.2 oz) | SpO2 100% | BMI 38.51 kg/m? General Appearance: NAD, appears stated age Skin: No rashes, pain, abscess, masses Head/Neck: No lymphadenopathy, trachea midline, no thyromegaly HS incision with hypertrophic scarring, submental incision will approximated TMJ: No clicking or popping on opening, No deviation on opening, Maximum incisal openinmm Eyes: PERRLA, EOM intact, conjunctiva clear, no ptosis Ears: No hearing loss, pain, tinnitus, vertigo Nose: No discharge, epistaxis, rhinorrhea Throat: Normal mucosa, uvula midline and mobile, normal gag reflex Lip: No swelling, no ulcerations, normal mucosa Oral Mucosa: No white lesions, no red lesions, no swelling, no ulcerations. Sites are granulating well. Some exposed sutures. Teeth: Fair repair, no gross caries Tongue/FOM: No swellings, ulcerations, non-tender to palpation, gag reflex present Neurological: Alert and oriented x3, CN II-XII grossly intact Radiology CT SOFT TISSUE NECK W CONTRAST Result Date: 12/19/2023 1. No acute abnormalities involving the neck soft tissues are identified. 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 Patient is s/p STEPHANIE, HS on 12/11/23 for moderate FAWN. Patient is healing well. Recommend patient apply silicone sheets to the hypertrophic scar. These can be found OTC. She can follow up in 3 months. Counseled the patient about the sleep hygiene, including regular bedtime and wake-up times; enough sleep time of at least 7-8 hours; no television set in the bedroom; use of bed only for sleep or intimate relationships; no daytime or evening naps in the last 8 hours prior to bedtime; elimination of caffeinated and alcoholic beverages from the diet; avoidance of strenuous physical exercise, intense cognitive activity, or heavy meals in the evening. Plan - silicone sheets to hypertrophic scar - f/u in 3 months - sleep hygiene I personally examined the patient on 12/25/[address] Cleaning's resident note as written . I actively participated in the decision-making process. Please see the resident's note for additional details. Laura Martínez DDS FACS Head and Neck Oncologic Surgery and Microvascular Reconstruction Department of Surgery | Division of gas meter reader [facility] [employer] [facility] 2023-12-09 07:21:07 gas meter reader Clinic note Chief Complaint: FAWN HPI Rosanne Resenidz is a 28 year old female presenting for FAWN evaluation. She has tried CPAP but cannot tolerate it. She is interested in surgical intervention. Interval HPI 12/09/23 Patient presents to [facility] for her scheduled procedure. Denies any changes to medical history or medications and patient is appropriately NPO. She desires surgery today. Histories Past Medical History: Diagnosis Date Anemia Anxiety Transfusion history Type 2 diabetes mellitus without complication, without long-term current use of insulin Past Surgical History: Procedure Laterality Date CHOLECYSTECTOMY COLONOSCOPY EXAM UNDER ANESTHESIA ORAL CAVITY (SHX) N/A 11/12/2023 Surgeon: Laura Martínez DDS; Location: [facility] FOOT ORIF (SHX) LARYNGOSCOPY (SHX) N/A 11/12/2023 Surgeon: Laura Martínez DDS; Location: [facility] Family History Problem Relation Age of Onset Hypertension Mother Diabetes Father Diabetes Maternal Grandfather Diabetes Paternal Grandmother Social History Socioeconomic History Marital status: Single Tobacco Use Smoking status: Never Passive exposure: Never Smokeless tobacco: Never Vaping Use Vaping status: Never Used Substance and Sexual Activity Alcohol use: Yes Comment: ocassional Drug use: Never Sexual activity: Yes Partners: Male control/protection: Injection Social Determinants of Health Financial Resource Strain: Patient Declined (12/05/2023) Overall Financial Resource Strain (CARDIA) Difficulty of Paying Living Expenses: Patient declined Food Insecurity: Patient Declined (12/05/2023) Hunger Vital Sign Worried About Running Out of Food in the Last Year: Patient declined Ran Out of Food in the Last Year: Patient declined Transportation Needs: No Transportation Needs (12/05/2023) PRAPARE - Transportation Lack of Transportation (Medical): No Lack of Transportation (Non-Medical): No Physical Activity: Inactive (12/05/2023) Exercise Vital Sign Days of Exercise per Week: 0 days Minutes of Exercise per Session: 20 min Stress: Stress Concern Present (12/05/2023) [employer] - Occupational Stress Questionnaire Feeling of Stress : Very much Social Connections: Moderately Integrated (12/05/2023) Social Connection and Isolation Panel [NHANES] Frequency of Communication with Friends and Family: Three times a week Frequency of Social Gatherings with Friends and Family: More than three times a week Attends Bahai Services: More than 4 times per year Active Member of Clubs or Organizations: Yes Attends Club or Organization Meetings: More than 4 times per year Marital Status: Never Housing Stability: Unknown (12/05/2023) Housing Stability Vital Sign Unable to Pay for Housing in the Last Year: No Unstable Housing in the Last Year: No Review of Systems Constitutional: negative Skin: negative Eyes: negative Ears, nose, mouth, throat: (+) per HPI Cardio: negative Resp: negative GI: negative : negative PARDEEP: negative Neuro: negative Psych: negative Endo: negative Hem/Lymphatic: negative Allergic/Immunologic: negative Physical Exam Wt 94.2 kg (207 lb 10.8 oz) | BMI 40.56 kg/m? General Appearance: NAD, appears stated age Skin: No rashes, pain, abscess, masses Head/Neck: No lymphadenopathy, Maximum incisal openin mm TMJ: No clicking or popping on opening, No deviation on opening Eyes: PERRLA, EOM intact, conjunctiva clear, no ptosis Ears: No hearing loss, pain, tinnitus, vertigo Nose: No discharge, epistaxis, rhinorrhea Throat: Normal mucosa, uvula midline and mobile, normal gag reflex Lip: No swelling, no ulcerations, normal mucosa Oral Mucosa: No white lesions, no red lesions, no swelling, no ulcerations Teeth: Fair repair, no gross caries Tongue/FOM: No swellings, ulcerations, non-tender to palpation, gag reflex present Neurological: Alert and oriented x3, CN II-XII grossly intact FAWN Assessment: ASA:II Modified Mallampati: II Tonsils size: +1 AHI: 27.4 Stop Bang Questionnaire: 5 ESS: 10 DISE: - 75% degree of obstruction at the level of the velum (0% Anterior-Posterior, 0% Lateral, 100% Concentric) - 100% degree of obstruction at the level of the oropharynx (100% lateral) - Base of tongue with approximately 75% degree of obstruction DIAGNOSES Severe FAWN Assessment/Plan Rosanne Resendiz is a 28 year old female with severe FAWN and CPAP intolerance. Her obstruction would be best treated with STEPHANIE and HS. She can expect post operative changes in her swallowing and will be admitted for one night in the hospital. RBA of surgery discussed. Patient wishes to proceed with surgery. Plan: - OR for STEPHANIE and HS 12/08 Associated attestation - Laura Martínez DDS - 12/09/2023 8:27 AM CDT I personally participated in the evaluation of the patient and agree with the plan as written . Please see the Resident's note for additional details. DEN-WATERMELON INSPECTOR (DENTIST ONLY) [facility] 2023-12-04 15:00:00 gas meter reader Clinic note Chief Complaint: FAWN HPI Rosanne Resendiz is a 28 year old female presenting for FAWN evaluation. She has tried CPAP but cannot tolerate it. She is interested in surgical intervention. Patient returns to clinic to discuss the results of her recent DISE. Histories Past Medical History: Diagnosis Date Anemia Anxiety Transfusion history Type 2 diabetes mellitus without complication, without long-term current use of insulin Past Surgical History: Procedure Laterality Date CHOLECYSTECTOMY COLONOSCOPY EXAM UNDER ANESTHESIA ORAL CAVITY (SHX) N/A 11/12/2023 Surgeon: Laura Martínez DDS; Location: [facility] OR [facility] FOOT ORIF (SHX) LARYNGOSCOPY (SHX) N/A 11/12/2023 Surgeon: Laura Martínez DDS; Location: [facility] OR LOCATION Family History Problem Relation Age of Onset Hypertension Mother Diabetes Father Diabetes Maternal Grandfather Diabetes Paternal Grandmother Social History Socioeconomic History Marital status: Single Tobacco Use Smoking status: Never Passive exposure: Never Smokeless tobacco: Never Vaping Use Vaping status: Never Used Substance and Sexual Activity Alcohol use: Yes Comment: ocassional Drug use: Never Sexual activity: Yes Partners: Male control/protection: Injection Social Determinants of Health Financial Resource Strain: Patient Declined (12/05/2023) Overall Financial Resource Strain (CARDIA) Difficulty of Paying Living Expenses: Patient declined Food Insecurity: Patient Declined (12/05/2023) Hunger Vital Sign Worried About Running Out of Food in the Last Year: Patient declined Ran Out of Food in the Last Year: Patient declined Transportation Needs: No Transportation Needs (12/05/2023) PRAPARE - Transportation Lack of Transportation (Medical): No Lack of Transportation (Non-Medical): No Physical Activity: Inactive (12/05/2023) Exercise Vital Sign Days of Exercise per Week: 0 days Minutes of Exercise per Session: 20 min Stress: Stress Concern Present (12/05/2023) [employer] [employer] - Occupational Stress Questionnaire Feeling of Stress : Very much Social Connections: Moderately Integrated (12/05/2023) Social Connection and Isolation Panel [NHANES] Frequency of Communication with Friends and Family: Three times a week Frequency of Social Gatherings with Friends and Family: More than three times a week Attends Bahai Services: More than 4 times per year Active Member of Clubs or Organizations: Yes Attends Club or Organization Meetings: More than 4 times per year Marital Status: Never Housing Stability: Unknown (12/05/2023) Housing Stability Vital Sign Unable to Pay for Housing in the Last Year: No Unstable Housing in the Last Year: No Review of Systems Constitutional: negative Skin: negative Eyes: negative Ears, nose, mouth, throat: (+) per HPI Cardio: negative Resp: negative GI: negative : negative PARDEEP: negative Neuro: negative Psych: negative Endo: negative Hem/Lymphatic: negative Allergic/Immunologic: negative Physical Exam BP 122/86 (BP Location: Left arm, Patient Position: Sitting, BP CUFF SIZE: Adult Large) | Pulse 101 | Temp 36 ?C (96.8 ?F) (Temporal Artery) | Resp 18 | Ht 1.524 m (5') | Wt 93.2 kg (205 lb 6.4 oz) | SpO2 96% | BMI 40.11 kg/m? General Appearance: NAD, appears stated age Skin: No rashes, pain, abscess, masses Head/Neck: No lymphadenopathy, Maximum incisal openin mm TMJ: No clicking or popping on opening, No deviation on opening Eyes: PERRLA, EOM intact, conjunctiva clear, no ptosis Ears: No hearing loss, pain, tinnitus, vertigo Nose: No discharge, epistaxis, rhinorrhea Throat: Normal mucosa, uvula midline and mobile, normal gag reflex Lip: No swelling, no ulcerations, normal mucosa Oral Mucosa: No white lesions, no red lesions, no swelling, no ulcerations Teeth: Fair repair, no gross caries Tongue/FOM: No swellings, ulcerations, non-tender to palpation, gag reflex present Neurological: Alert and oriented x3, CN II-XII grossly intact FAWN Assessment: ASA:II Modified Mallampati: II Tonsils size: +1 AHI: 27.4 Stop Bang Questionnaire: 5 ESS: 10 DISE: - 75% degree of obstruction at the level of the velum (0% Anterior-Posterior, 0% Lateral, 100% Concentric) - 100% degree of obstruction at the level of the oropharynx (100% lateral) - Base of tongue with approximately 75% degree of obstruction DIAGNOSES Severe FAWN Assessment/Plan Rosanne Resendiz is a 28 year old female with severe FAWN and CPAP intolerance. Her obstruction would be best treated with STEPHANIE and HS. She can expect post operative changes in her swallowing and will be admitted for one night in the hospital. RBA of surgery discussed. Patient wishes to proceed with surgery. Plan: - OR for STEPHANIE and HS 12/08 - Consent today - case posted I personally examined the patient on 12/04/[address] Cleaning's resident note as written . I actively participated in the decision-making process. Please see the resident's note for additional details. aLura Martínez DDS FACS Head and Neck Oncologic Surgery and Microvascular Reconstruction Department of Surgery | Division of gas meter reader [facility] 2023-11-12 06:14:50 gas meter reader H&P Chief Complaint: FAWN HPI Rosanne Resendiz is a 28 year old female presenting for FAWN evaluation. She has tried CPAP but cannot tolerate it. She is interested in surgical intervention. Histories Past Medical History: Diagnosis Date Anemia Anxiety Transfusion history Type 2 diabetes mellitus without complication, without long-term current use of insulin Past Surgical History: Procedure Laterality Date CHOLECYSTECTOMY COLONOSCOPY FOOT ORIF (SHX) Family History Problem Relation Age of Onset Hypertension Mother Diabetes Father Diabetes Maternal Grandfather Diabetes Paternal Grandmother Social History Socioeconomic History Marital status: Single Tobacco Use Smoking status: Never Passive exposure: Never Smokeless tobacco: Never Vaping Use Vaping status: Never Used Substance and Sexual Activity Alcohol use: Never Drug use: Never Sexual activity: Never Review of Systems Constitutional: negative Skin: negative Eyes: negative Ears, nose, mouth, throat: (+) per HPI Cardio: negative Resp: negative GI: negative : negative PARDEEP: negative Neuro: negative Psych: negative Endo: negative Hem/Lymphatic: negative Allergic/Immunologic: negative Physical Exam Wt 93.3 kg (205 lb 11 oz) | BMI 40.17 kg/m? General Appearance: NAD, appears stated age Skin: No rashes, pain, abscess, masses Head/Neck: No lymphadenopathy, Maximum incisal openin mm TMJ: No clicking or popping on opening, No deviation on opening Eyes: PERRLA, EOM intact, conjunctiva clear, no ptosis Ears: No hearing loss, pain, tinnitus, vertigo Nose: No discharge, epistaxis, rhinorrhea Throat: Normal mucosa, uvula midline and mobile, normal gag reflex Lip: No swelling, no ulcerations, normal mucosa Oral Mucosa: No white lesions, no red lesions, no swelling, no ulcerations Teeth: Fair repair, no gross caries Tongue/FOM: No swellings, ulcerations, non-tender to palpation, gag reflex present Neurological: Alert and oriented x3, CN II-XII grossly intact FAWN Assessment: ASA:II Modified Mallampati: II Tonsils size: +1 AHI: 27.4 Stop Bang Questionnaire: 5 ESS: 10 DISE: Pending DIAGNOSES Severe FAWN Assessment/Plan Rosanne Resendiz is a 28 year old female with severe FAWN and CPAP intolerance. We will have to perform a DISE in order to evaluate the patient's airway while she is asleep. Once the DISE is performed we will be able to determine the area of obstruction and provide the best surgical option to cure her FAWN. Plan: - DISE on 11/12/23 in OR - Consent signed, risks, benefits, alternatives discussed - NPO per protocol - Escort DOS Associated attestation - Laura Martínez DDS - 11/12/2023 7:08 AM CDT I personally participated in the evaluation of the patient and agree with the plan as written . Please see the Resident's note for additional details. 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 She has tried CPAP but cannot tolerate it. She is interested in surgical intervention. Histories Past Medical History: Diagnosis Date Anemia Anxiety Transfusion history Type 2 diabetes mellitus without complication, without long-term current use of insulin Past Surgical History: Procedure Laterality Date CHOLECYSTECTOMY COLONOSCOPY FOOT ORIF (SHX) Family History Problem Relation Age of Onset Hypertension Mother Diabetes Father Diabetes Maternal Grandfather Diabetes Paternal Grandmother Social History Socioeconomic History Marital status: Single Tobacco Use Smoking status: Never Passive exposure: Never Smokeless tobacco: Never Vaping Use Vaping status: Never Used Substance and Sexual Activity Alcohol use: Never Drug use: Never Sexual activity: Never Review of Systems Constitutional: negative Skin: negative Eyes: negative Ears, nose, mouth, throat: (+) per HPI Cardio: negative Resp: negative GI: negative : negative PARDEEP: negative Neuro: negative Psych: negative Endo: negative Hem/Lymphatic: negative Allergic/Immunologic: negative Physical Exam BP 114/76 (BP Location: Left arm, Patient Position: Sitting, BP CUFF SIZE: Adult Large) | Pulse 86 | Temp 36.3 ?C (97.3 ?F) (Skin) | Resp 18 | Ht 1.524 m (5') | Wt 93.9 kg (207 lb) | SpO2 97% | BMI 40.43 kg/m? General Appearance: NAD, appears stated age Skin: No rashes, pain, abscess, masses Head/Neck: No lymphadenopathy, Maximum incisal openin mm TMJ: No clicking or popping on opening, No deviation on opening Eyes: PERRLA, EOM intact, conjunctiva clear, no ptosis Ears: No hearing loss, pain, tinnitus, vertigo Nose: No discharge, epistaxis, rhinorrhea Throat: Normal mucosa, uvula midline and mobile, normal gag reflex Lip: No swelling, no ulcerations, normal mucosa Oral Mucosa: No white lesions, no red lesions, no swelling, no ulcerations Teeth: Fair repair, no gross caries Tongue/FOM: No swellings, ulcerations, non-tender to palpation, gag reflex present Neurological: Alert and oriented x3, CN II-XII grossly intact FAWN Assessment: ASA:II Modified Mallampati: II Tonsils size: +1 AHI: 27.4 Stop Bang Questionnaire: 5 ESS: 10 DISE: Pending DIAGNOSES Severe FAWN Assessment/Plan Rosanne Resendiz is a 27 year old female with severe FAWN and CPAP intolerance. We will have to perform a DISE in order to evaluate the patient's airway while she is asleep. Once the DISE is performed we will be able to determine the area of obstruction and provide the best surgical option to cure her FAWN. Plan: - DISE on 11/12/23 in OR - Consent signed, risks, benefits, alternatives discussed - NPO per protocol - Escort DOS I personally examined the patient on 10/23/[address] Flanagan's resident note as written . I actively participated in the decision-making process. Please see the resident's note for additional details. Laura Martínez DDS FACS Head and Neck Oncologic Surgery and Microvascular Reconstruction Department of Surgery | Division of gas meter reader [facility] Health Notes Date/Time Note Provider Source 2024-02-22 17:21:25 Contacted patient to receive more information, patient stated that this has already been taken care of and they have received paperwork. Patient advised to give clinic another call if she has any more trouble. [facility] 2024-02-19 13:02:18 I do not have an order form for this -Susan please verify [employer]-FAMILY MIDLEVEL PROVIDER [facility] 2024-02-17 13:35:33 Will retrieve paperwork and complete form. Lulu Parsons MA [facility] 2024-02-17 11:30:07 Images from the original note were not included. Sivakumar Neville [facility] 2024-02-17 08:53:03 Please review and send in order if appropriate [facility] 2024-02-16 17:11:00 Regardin+ blood sugar ----- Message from Shraddha Vera sent at 02/16/2024 5:09 PM CDT ----- Pt states blood sugar has been out of control. Pt states she checked this morning and it was over 300. Placed TE to clinic she has been waiting since the for her omnipod orders. No other symptoms but being tired. Katie Ibarra RN [facility] 2024-02-16 17:11:00 Nurse's Note: 5:12 PM Rosanne Resendiz is a 28 year old female. Called patient. "My blood sugar has been out of control." Adult Triage Assessment Last Clinic Visit: 01/26/24 nurse visit for depot shot Primary Symptom: high blood sugar (300 this morning) Onset / Duration: Since this thursday Location / Description: endo Pain / Severity: 0/10 Associated Symptoms: very tired, increased urination Fever / Method: denies Hydration: increased urination Treatment so far: none; patient states she was on ozempic but stopped taking it because she started vomiting blood, she is not on any current treatment Effect on ADL's: some change LMP: n/a Pre-existing condition / Immunocompromised: dm, palpitations Reason for Disposition [1] Blood glucose > 300 mg/dL (16.7 mmol/L) AND [2] two or more times in a row Protocols used: Diabetes - High Blood Ultth-EDNWF-GB Disposition: After assessment and triage, patient advised to see provider within 4 hours and directed to the ED for evaluation. Follow up appointment scheduled on 02/18/24 at 0930 at PCP clinic. Patient agreed to disposition. Katie Ibarra RN 02/16/2024 5:27 PM [facility] 2024-02-16 16:57:46 Rosanne Resendiz is a 28 year old female Pt calling in to f/u on order form from [facility] pharmacy requestin BeyondCore Dash. Please send in orders. Pt has been waiting since 02.01.24 and they are saying they never received it. Pt states she needs this for her blood sugar and her blood sugar has been out of control. Please advise and contact pt [phone] (home) Shraddha Vera [facility] 2024-02-01 10:11:50 Received order form from [facility] pharmacy requestin Omnipod Dash, provider signature required, placed in providers box for review. Cecille Paez [facility] 2024-01-29 09:41:01 Spoke with [facility] and relayed the information per Kelly Reynaga DNP. She stated that she would make a note. Lara Simmons RN [facility] 2024-01-28 17:37:45 Did she maybe discus this with Nicky at recent visit- she did not see me last and we have not discussed this. [employer] W[employer]IVER-FAMILY MIDLEVEL PROVIDER [facility] 2024-01-28 11:04:00 Loraine / [facility] calling to check the status of the order. Please Advise. Janis Peralta [facility] 2024-01-27 15:55:03 Please review and advise. LOS 01/14/24 NOV 06/17/24 Monica Fernando LVN [facility] 2024-01-27 15:39:37 Rosanne Resendiz is a 28 year old female and Eliza with [facility] is calling asking if a verbal prescription order can be given for the pt. Jamarhenrry had faxed over forms for the order on 01/04/24 as well. Pt is asking to order the Omnipod Dash a insulin controller. Nisha Whiting [facility] 2024-01-25 07:05:53 PA not required: The Community and State Medicaid Prior Authorization Team is not able to review this request because the brand name for the requested product is preferred on the formulary and is covered without prior authorization requirements. Patient notified of outcome and encouraged to contact pharmacy to provide an update. Monica Fernando CRM CAMPAIGN MANAGER [facility] 2024-01-18 12:29:19 PA initiated on 01/18/2024: Barillas: [id number] PA Will provide updates as recd Monica Fernando LVN [facility] 2024-01-15 14:16:34 Images from the original note were not included. Receive PA [place]illas Code below and have placed in provider's box. Ni Dietz [facility] 2024-01-14 13:15:00 Images from the original note were not included. Venipuncture collection performed by clean technique on the right anticubitus. Total of 1 attempts were made. Slight pressure and a bandage/dressing were applied to the site(s). The patient experienced no complications. The following specimens were processed according to instructions and sent to [facility] laboratories per lab order on 01/14/2024 : LT BLUE SST 1 RED LAV 2 PPT DK GREEN (LiHep) DK GREEN (SodH) GARY DK BLUE (K2) DK BLUE (S) ACD Blood Culture NIPT/NTD Patient has been identified by and name and was provided with cup, antiseptic towelette, and clean catch instructions. 1 urine specimen(s) sent. Unpreserved 1 Urine Culture Aptima tube Other urine [facility] 2024-01-13 16:24:00 Patient in clinic with c/o hyperglycemia and requesting to change DM medication. She stated going to the ER on 12/18 for vomiting blood and per self has since stopped using Ozempic. No distress noted. Patient A&OX3. POCT glucose collected and 183. BP 120/83 HR 101 SPO2 97% RR 18. ER F/U scheduled for 01/13 with Nicky Peck. Monica Fernando LVN [facility] 2023-12-19 12:28:31 Rosanne Resendiz is a 28 year old female is calling to inform the clinic that she was in the ER yesterday for vomiting blood. Kamilla Ryder 12/19/2023 12:29 PM Kamilla Ryder [facility] 2023-12-19 07:09:41 Pt and mother given printed and verbal discharge instructions regarding hemoptysis and hypokalemia, encouraged hydration, Pt and mother verbalized understanding of instructions, pt awake alert oriented, resp reg unlabored, skin w/d, color appropriate for race, moves all ext well,pt encouraged to follow up with pcp Advised to seek medical attention for new/prolonged/worsening of symptoms No adverse reaction to meds given in ER noted upon discharge PIV d'cd, dressing to site, catheter in tact. Awake, alert oriented, resp reg unlabored, skin w/d, pt leaving amb with steady gait, in no apparent distress Scarlett Stone RN [facility] 2023-12-19 03:32:41 CC: Pt reports surgery on 12/08 for sleep apnea. Tonight she had approx 2.5 mL of red spit that concerned her (with her in a cup). Pt had an Ensure sparkling water that was pink. Pt denies pain. Pt is taking antibiotics. PMHx: DM, sleep apnea Awake, alert, oriented, resp reg unlabored, skin warm, color appropriate for race, moves all ext without difficulty, amb with steady gait See [facility] for surgery notes Celina Mills RN [facility] 2023-12-17 11:44:06 Endocrine provider will be retiring. Pt able to transfer back to PCP for diabetes management. 6 month refill of diabetic medication sent into pharmacy. [facility] 2023-12-11 13:40:00 Patient left unit via wheelchair accompanied by her parents and with all her belongings. EENT Betty Brown RN [facility] 2023-12-11 11:26:05 Patient and parents given discharge instructions. They all verbalized understanding. Iv catheter removed, no bleeding noted and tip noted to be intact. O2 monitoring machine disconnected and removed from the room. T [facility] 2023-12-11 08:34:56 Problem: Pain Goal: Control of pain at or below patient's documented comfort goal Outcome: Progressing as expected Goal: Reduction in pain sensation Outcome: Progressing as expected Problem: Falls, Risk of Goal: Absence of falls Outcome: Progressing as expected Problem: Bleeding, Risk of Goal: Absence of impaired coagulation signs and symptoms Outcome: Progressing as expected Goal: Absence of active bleeding Outcome: Progressing as expected Problem: Respiratory Function - Impaired Goal: Able to cough effectively Outcome: Progressing as expected Goal: Adequate oxygenation Outcome: Progressing as expected Goal: Adequate work of breathing Outcome: Progressing as expected Goal: Patent airway Outcome: Progressing as expected [facility] 2023-12-10 20:56:46 Problem: Pain Goal: Control of pain at or below patient's documented comfort goal Outcome: Progressing as expected Goal: Reduction in pain sensation Outcome: Progressing as expected Problem: Falls, Risk of Goal: Absence of falls Outcome: Progressing as expected Problem: Bleeding, Risk of Goal: Absence of impaired coagulation signs and symptoms Outcome: Progressing as expected Goal: Absence of active bleeding Outcome: Progressing as expected Problem: Respiratory Function - Impaired Goal: Able to cough effectively Outcome: Progressing as expected Goal: Adequate oxygenation Outcome: Progressing as expected Goal: Adequate work of breathing Outcome: Progressing as expected Goal: Patent airway Outcome: Progressing as expected [facility] Adán Chew RN [facility] 2023-12-10 17:43:08 Problem: Pain Goal: Control of pain at or below patient's documented comfort goal Outcome: Progressing as expected Problem: Bleeding, Risk of Goal: Absence of impaired coagulation signs and symptoms Outcome: Progressing as expected [facility] 2023-12-10 01:24:16 Problem: Pain Goal: Control of pain at or below patient's documented comfort goal Outcome: Progressing as expected Goal: Reduction in pain sensation Outcome: Progressing as expected Problem: Falls, Risk of Goal: Absence of falls Outcome: Progressing as expected Problem: Bleeding, Risk of Goal: Absence of impaired coagulation signs and symptoms Outcome: Progressing as expected Goal: Absence of active bleeding Outcome: Progressing as expected Problem: Respiratory Function - Impaired Goal: Able to cough effectively Outcome: Progressing as expected Goal: Adequate oxygenation Outcome: Progressing as expected Goal: Adequate work of breathing Outcome: Progressing as expected Goal: Patent airway Outcome: Progressing as expected [facility] Citlalli Porter RN [facility] 2023-12-07 16:30:00 Collection is to far in the future to be collected.Candelaria Forte 12/07/2023 4:14 PM [facility] 2023-11-26 14:30:00 Images from the original note were not included. Venipuncture collection performed by clean technique on the left anticubitus. Total of 1 attempts were made. Slight pressure and a bandage/dressing were applied to the site(s). The patient experienced no complications. The following specimens were processed according to instructions and sent to [facility] laboratories per lab order on 11/26/2023: LT BLUE SST 2 RED 1 LAV PPT DK GREEN (LiHep) DK GREEN (SodH) GARY DK BLUE (K2) DK BLUE (S) ACD Blood Culture NIPT/NTD [facility] 2023-10-21 16:44:49 Reminded Rosanne Resendiz of upcoming appointment scheduled for 10/23/23 at 2 pm. Patient verbalized understanding. Keeley Schilling [facility] 2023-10-19 08:00:00 Images from the original note were not included. Venipuncture collection performed by clean technique on the left anticubitus. Total of 1 attempts were made. Slight pressure and a bandage/dressing were applied to the site(s). The patient experienced no complications. The following specimens were processed according to instructions and sent to [facility] laboratories per lab order on 10/19/2023 : LT BLUE SST 2 RED LAV 1 PPT DK GREEN (LiHep) DK GREEN (SodH) GARY DK BLUE (K2) DK BLUE (S) ACD Blood Culture NIPT/NTD [facility] 2023-10-05 13:45:00 Orders for [place], Marley M, MD only [facility] 2023-09-15 15:13:45 Patient came by clinic and monitor was reapplied. Kayy Gaffney RN [facility] 2023-09-15 08:07:59 Copied from [facility] #[id number]. Topic: Clinical - Medical Advice >> Sep 15, 2023 8:07 AM Patient Direct Chill Casting Operator wrote: Rosanne Resendiz is a 27 year old female is calling and states a wire fell off of her chest. [phone] (home) Warm transferred to clinic nurse Yasmin Ibarra [facility] 2023-09-14 08:30:00 48 hour holter (SEER 1000, #1) applied to patient, tolerated well. Wear, care, diary entry and monitor return teaching given, understanding verbalized. Monitor to be returned on Thu by 1111am, return letter acknowledged and signed. Angélica Bryant MA [facility] 2023-09-11 12:15:00 Images from the original note were not included. Venipuncture collection performed by clean technique on the right anticubitus. Total of 1 attempts were made. Slight pressure and a bandage/dressing were applied to the site(s). The patient experienced no complications. The following specimens were processed according to instructions and sent to [facility] laboratories per lab order on today: LT BLUE SST 1 RED LAV PPT DK GREEN (LiHep) DK GREEN (SodH) GARY DK BLUE (K2) DK BLUE (S) ACD Blood Culture NIPT/NTD [facility] 2023-08-10 09:01:15 Testing brought in by patient. Scanned into ADC folder. Pending upload to [employer]. Placed in Dr. Henderson's ADC inbox folder for review. OR SCHEDULER Angélica Bryant MA [facility] 2023-08-04 14:10:20 Paperwork located. Kelly Reynaga DNP reviewed and declined signature. She states Patient does not qualify. Called [employer] and relayed the information to Blu. She voiced understanding. Simmons RN [facility] 2023-08-04 11:24:07 Can you please look for this, I am not back in office until Thursday. Thank you. OR SCHEDULER [facility] 2023-08-04 08:33:37 Copied from [facility] #[id number]. Topic: Clinical - Order >> Aug 04, 2023 8:30 AM MyChart Team wrote: Shraddha from [employer] called to see if clinic received order for Continuous Glu close Monitor faxed over 08/03 just verifying order Please advise OR SCHEDULER Tatianna Avina [facility] 2023-07-30 15:27:23 Images from the original note were not included. Notes: 06/25/23 Last Refilled: [facility] [id number] - [place], [place] - [address] POCT HBA1C (%) Date Value 10/15/2021 6.3 (A) Recent Visits Date Type Provider Dept 07/24/23 Office Visit Nicky Peck PA [facility] 06/17/23 Office Visit Nicky Peck PA [facility] 05/15/23 Office Visit Nicky Peck PA [facility] 03/26/23 Office Visit Kelly Reynaga FNP [facility] 12/24/22 Office Visit Nicky Peck PA [facility] 11/12/22 Office Visit Nicky Peck PA [facility] 09/08/22 Office Visit Kelly Reynaga FNP [facility] 08/08/22 Office Visit Kelly Reynaga FNP [facility] 06/27/22 Office Visit Kelly Reynaga FNP [facility] 04/11/22 Office Visit Kelly Reynaga FNP [facility] Showing recent visits within past 540 days with a meds authorizing provider and meeting all other requirements Future Appointments No visits were found meeting these conditions. Showing future appointments within next 150 days with a meds authorizing provider and meeting all other requirements semaglutide (OZEMPIC) 1 mg/dose (4 mg/3 mL) PnIj Sig: inject 1 mg under the skin weekly. Disp: 3 Pen Refills: 1 Start: 07/30/2023 Class: eRX Non-formulary For: Type 2 diabetes mellitus without complication, without long-term current use of insulin; Morbid obesity Last ordered: 1 month ago (06/25/2023) by GRACIELA Rice Off-Protocol [id number]/30/2023 02:24 PM Protocol Details Medication not assigned to a protocol, forward to provider. Valid encounter within last 12 months To be filled at: [facility] [id number] [place] [address] [address] [facility] 2023-07-15 08:33:15 LOS-04/21/23 NOV-07/23/23 Called pharmacy and spoke with pharmacy staff. They state pt has no refills. Vitamin D last checked 04/21/23. Ok to refill ergocalciferol, vitamin d2, 1,250 mcg (50,000 unit) capsule. Please send if appropriate. Thank you. Marely Raza, RN [facility] 2023-07-15 08:29:47 Rosanne Resendiz is a 27 year old female Patient is calling in regards to the ergocalciferol, vitamin d2, 1,250 mcg (50,000 unit) capsule , mentions refill was denied due for being to soon. Pt has contacted pharmacy and their is no additional refills on file, but will try to reach out again. [facility] Baylee Ahmadi [facility] 2023-07-13 08:32:33 Images from the original note were not included. [facility] Nelly Fisher [facility] 2023-07-10 19:47:08 Rosanne Resendiz is a 27 year old female Patient is calling to request a refill on RX ergocalciferol, vitamin d2, 1,250 mcg (50,000 unit) capsule - states pharmacy needs a new script - please be advised [facility] [id number] - [place] [address] [facility] 2023-06-25 10:36:10 Last Refilled: Disp Refills Start End FADI semaglutide (OZEMPIC) 1 mg/dose (4 mg/3 mL) PnIj 3 Pen 1 05/22/2023 -- -- Sig: inject 1 mg under the skin weekly. Sent to pharmacy as: Ozempic 1 mg/dose (4 mg/3 mL) subcutaneous pen injector (semaglutide) Class: eRX Route: Subcutaneous Order: [id number] Date/Time Signed: 05/22/2023 11:51 Notes: Recent Visits Date Type Provider Dept 06/17/23 Office Visit Nicky Peck PA [facility] 05/15/23 Office Visit Nicky Peck PA [facility] 03/26/23 Office Visit Elizabethgermaine Kelly, BRIDGE MANAGER [facility] 12/24/22 Office Visit Nicky Peck PA [facility] 11/12/22 Office Visit Nicky Peck PA [facility] 09/08/22 Office Visit Kelly Reynaga, BRIDGE MANAGER [facility] 08/08/22 Office Visit Stephenie Reynaagthia, BRIDGE MANAGER [facility] 06/27/22 Office Visit AneKelly herron, BRIDGE MANAGER [facility] 04/11/22 Office Visit Kelly Reynaga, BRIDGE MANAGER [facility] 02/07/22 Office Visit Kelly Reynaga, BRIDGE MANAGER [facility] Showing recent visits within past 540 days with a meds authorizing provider and meeting all other requirements Future Appointments No visits were found meeting these conditions. Showing future appointments within next 150 days with a meds authorizing provider and meeting all other requirements [facility] Lara Simmons RN [facility] 2023-06-17 17:00:00 Images from the original note were not included. Patient has been identified by name and was provided with cup, antiseptic towelette, and clean catch instructions. 1 urine specimen(s) sent. Unpreserved Urine Culture 1 Aptima tube Other urine [facility] 2023-06-17 09:19:49 Patient has appointment today 06/17/23. Will address in clinic. Mirtha Bowman LVN 06/17/2023 9:20 AM [facility] 2023-06-12 16:57:47 Rosanne Resendiz is a 27 year old female is returning a call she missed from the clinic in regards to EKG results. Please advise. [phone] Broussard [facility] 2023-06-12 16:53:14 Attempted to reach patient , no answer left V/M Ho MA [facility] 2023-06-12 16:50:02 Looks like she was checked in 06/10/23 at the hospital for the EKG No results in chart OR SCHEDULER [facility] 2023-06-12 13:14:56 I do not see EKG results either. Perhaps she completed with an external provider? OR SCHEDULER ESTRELLA-PHYSICIAN CAMPER ASSEMBLER MIDLEVEL PROVIDER [facility] 2023-06-12 12:33:32 Please review and advise. Did not see any EKG results in chart. Elizabeth RN [facility] 2023-06-11 16:29:14 Rosanne Resendiz is a 27 year old female patient is requesting a call from the clinic in regards to EKG results. Please advise. [phone] Broussard [facility] 2023-02-10 08:57:57 Formatting of this n ote might be different from the original. Labs re-printed and faxed to [phone] [facility] 2023-02-05 09:42:45 Formatting of this n ote might be different from the original. Ana María from [facility] called, requesting lab results re faxed , she she stated it got deleted by mistake. . Kiesha Katz [facility] 2023-02-04 14:35:27 Formatting of this n ote might be different from the original. 3rd attempt to reach patent. Closing encounter. Mirtha Bowman LVN 02/04/2023 2:35 PM [facility] 2023-02-03 16:04:46 Formatting of this n ote might be different from the original. Attempted to contact patient. No answer. Left message to call back. [facility] 2023-02-03 14:57:21 Formatting of this n ote might be different from the original. Patient is requesting a call back regarding results. Diane Ga [facility] 2023-02-02 17:03:43 Formatting of this n ote might be different from the original. Rosanne Resendiz is a 27 year old female Patient is returning a missed call in regards to lab results. Please advise [phone] (home) Brenda Nieves [facility] 2023-02-02 14:24:53 Formatting of this n ote might be different from the original. Attempted to contact patient. No answer. Left message to call back. Mirtha Bowman LVN 02/02/2023 2:25 PM [facility] 2023-02-02 13:14:29 Formatting of this n ote might be different from the original. Patient would like a nurse to call her regarding her lab results. Loan Huddleston [facility] 2023-01-26 14:14:51 Formatting of this n ote is different from the original. Images from the original note were not included. Requested Renewals semaglutide (OZEMPIC) 0.25 mg or 0.5 [...] last 12 months To be filled at: [facility] [id number] [place] [address] Recent Visits Date Type Provider Dept 12/24/22 Office Visit Nicky Peck PA [facility] 11/12/22 Office Visit Nicky Peck PA [facility] 09/08/22 Office Visit Kelly Reynaga FNP [facility] 08/08/22 Office Visit Kelly Reynaga FNP [facility] 06/27/22 Office Visit Kelly Reynaga FNP [facility] 04/11/22 Office Visit Kelly Reynaga, BRIDGE MANAGER [facility] 02/07/22 Office Visit Kelly Reynaga BRIDGE MANAGER [facility] 01/17/22 Office Visit Kelly Reynaga BRIDGE MANAGER [facility] 12/24/21 Office Visit Kelly Reynaga BRIDGE MANAGER [facility] 11/05/21 Office Visit Nj Bullock MD [facility] Showing recent visits within past 540 days with a meds authorizing provider and meeting all other requirements Future Appointments No visits were found meeting these conditions. Showing future appointments within next 150 days with a meds authorizing provider and meeting all other requirements T [facility] 2023-01-26 07:44:09 Formatting of this n ote might be different from the original. Pt is checking the status. [facility] 2023-01-24 21:24:28 Formatting of this n ote might be different from the original. Rosanne Resendiz is a 27 year old female that is requesting refills of ozympic. [facility] [id number] [place] [address] [place] [address] Please advise. Keisha Harvey [facility] 2023-01-07 14:00:00 Formatting of this n ote is different from the original. Images from the original note were not included. Venipuncture collection performed by clean technique on the left anticubitus. Total of 1 attempts were made. Slight pressure and a bandage/dressing were applied to the site(s). The patient experienced no complications. The following specimens were processed according to instructions and sent to [facility] laboratories per lab order on 01/07/2023 LT BLUE SST 3 RED LAV PPT DK GREEN (LiHep) DK GREEN (SodH) GARY DK BLUE (K2) DK BLUE (S) ACD Blood Culture NIPT/NTD [facility] [employer] 2022-12-24 14:30:00 Formatting of this n ote is different from the original. Images from the original note were not included. Venipuncture collection performed by clean technique on the right anticubitus. Total of 1 attempts were made. Slight pressure and a bandage/dressing were applied to the site(s). The patient experienced no complications. The following specimens were processed according to instructions and sent to [facility] laboratories per lab order on 12/24/2022 LT BLUE SST 1 RED LAV PPT DK GREEN (LiHep) DK GREEN (SodH) GARY DK BLUE (K2) DK BLUE (S) ACD Blood Culture NIPT/NTD [facility] [employer]
--- NOTE | 2024-03-15 08:58 | ER ---
Nurse's Notes [facility] Name: Rosanne Sparks Age: 28 yrs Sex: Female : 1995 Arrival Date: 03/15/2024 Time: 08:40 Bed 5 Private MD: Diagnosis: Heel pain bilaterally Presentation: 03/15 08:54 Chief complaint: Patient states: bilateral heel pain x 4 days from standing too much. ss Coronavirus screen: Client denies travel out of the [place] in the last 14 days. Ebola Screen: Patient denies exposure to infectious person. Patient denies travel to an Ebola-affected area in the 21 days before illness onset. Initial Sepsis Screen: Does the patient meet any 2 criteria? No. Patient's initial sepsis screen is negative. Does the patient have a suspected source of infection? No. Patient's initial sepsis screen is negative. Risk Assessment: Do you want to hurt yourself or someone else? Patient reports no desire to harm self or others. Onset of symptoms was March 11, 2024. 08:54 Method Of Arrival: Ambulatory 08:54 Acuity: GARRY 5 ss Historical: - Allergies: 08:55 No Known Allergies; ss - PMHx: 08:55 Diabetes - IDDM; ss - PSHx: 08:55 Cholecystectomy; right foot; ss - Immunization history:: Client reports receiving the 2nd dose of the Covid vaccine. - Infectious Disease History:: Denies. - Social history:: Smoking status: Patient denies any tobacco usage or history of. Screenin:56 [facility] ED Fall Risk Assessment (Adult) History of falling in the last 3 months, ss including since admission No falls in past 3 months (0 pts) Confusion or Disorientation No (0 pts) Intoxicated or Sedated No (0 pts) Impaired Gait No (0 pts) Mobility Assist Device Used No (0 pt) Altered Elimination No (0 pt) Score/Fall Risk Level 0 - 2 = Low Risk Oriented to surroundings. Abuse screen: Denies threats or abuse. Denies injuries from another. Nutritional screening: No deficits noted. Tuberculosis screening: Never had TB. Assessment: 08:56 General: Appears in no apparent distress. comfortable, Behavior is calm, cooperative, ss Is smiling. Pain: Complains of pain in bilateral heel pain Pain currently is 10 out of 10 on a pain scale. Neuro: Level of Consciousness is awake, alert, obeys commands, Oriented to person, place, time, situation. Respiratory: Airway is patent Respiratory effort is even, unlabored, Respiratory pattern is regular, symmetrical. GI: No signs and/or symptoms were reported involving the gastrointestinal system. Derm: Skin is intact, is healthy with good turgor, Skin is dry, Skin is pink, warm \T\ dry. normal. Vital Signs: 08:54 BP 125 / 82; Pulse 99; Resp 16; Temp 97.6(O); Pulse Ox 100% on R/A; Weight 93.89 kg; ss Height 5 ft. 0 in. ; Pain 10/10; 08:54 Body Mass Index 40.43 (93.89 kg, 152.4 cm) ss 08:54 Pain Scale: Adult ss ED Course: 08:46 Patient arrived in ED. ra3 08:46 Иван Leung MD is Attending Physician. sp3 08:55 Triage completed. ss 08:55 Arm band placed on right wrist. ss 08:56 Patient has correct armband on for positive identification. ss 08:56 No provider procedures requiring assistance completed. Patient did not have IV access ss during this emergency room visit. Administered Medications: No medications were administered Medication: 08:56 VIS not applicable for this client. ss Outcome: 08:58 Discharge ordered by . sp3 09:00 Discharged to home ambulatory, ss 09:00 Condition: good 09:00 Discharge instructions given to patient, Instructed on discharge instructions, follow up and referral plans. medication usage, Demonstrated understanding of instructions, follow-up care, medications, Prescriptions given X 1, 09:09 Patient left the ED. iw Signatures: Cheryl Blount, RN RN Giana Funes, RN RN Иван Leung MD MD sp3 Xochilt Tena ra3
--- NOTE | 2024-03-15 08:58 | EDPHYS ---
Physician Documentation [facility] Name: Rosanne Sparks Age: 28 yrs Sex: Female : 1995 Arrival Date: 03/15/2024 Time: 08:40 Bed 5 Private MD: ED Physician Иван Leung HPI: 03/15 08:56 This 28 yrs old Female presents to ER via Ambulatory with complaints of BL sp3 heel pain. 08:56 28-year-old female with history of diabetes presents with bilateral heel pain after sp3 "standing too much because she had family visiting". She denies any direct trauma, prolonged exercise or usage other than standing, distal foot pain, numbness or tingling, proximal joint pain, calf pain, prolonged immobilization, chest pain, shortness of breath, or any other signs or symptoms on ROS at this time.. Historical: - Allergies: 08:55 No Known Allergies; ss - PMHx: 08:55 Diabetes - IDDM; ss - PSHx: 08:55 Cholecystectomy; right foot; ss - Immunization history:: Client reports receiving the 2nd dose of the Covid vaccine. - Infectious Disease History:: Denies. - Social history:: Smoking status: Patient denies any tobacco usage or history of. ROS: 08:56 Constitutional: Negative for fever, chills, and weight loss, Eyes: Negative for injury, sp3 pain, redness, and discharge, ENT: Negative for injury, pain, and discharge, Neck: Negative for injury, pain, and swelling, Cardiovascular: Negative for chest pain, palpitations, and edema, Respiratory: Negative for shortness of breath, cough, wheezing, and pleuritic chest pain, Abdomen/GI: Negative for abdominal pain, nausea, vomiting, diarrhea, and constipation, Back: Negative for injury and pain, Skin: Negative for injury, rash, and discoloration, Neuro: Negative for headache, weakness, numbness, tingling, and seizure, Psych: Negative for depression, anxiety, suicide ideation, homicidal ideation, and hallucinations, Allergy/Immunology: Negative for hives, rash, and allergies, Endocrine: Negative for neck swelling, polydipsia, polyuria, polyphagia, and marked weight changes, Hematologic/Lymphatic: Negative for swollen nodes, abnormal bleeding, and unusual bruising, 08:56 All other systems are negative, Exam: 08:56 Constitutional: This is a well developed, well nourished patient who is awake, alert, sp3 and in no acute distress. Head/Face: Normocephalic, atraumatic. Chest/axilla: Normal chest wall appearance and motion. Nontender with no deformity. No lesions are appreciated. Cardiovascular: Regular rate and rhythm with a normal S1 and S2. No gallops, murmurs, or rubs. Normal PMI, no JVD. No pulse deficits. Respiratory: Lungs have equal breath sounds bilaterally, clear to auscultation and percussion. No rales, rhonchi or wheezes noted. No increased work of breathing, no retractions or nasal flaring. Abdomen/GI: Soft, non-tender, with normal bowel sounds. No distension or tympany. No guarding or rebound. No evidence of tenderness throughout. Skin: Warm, dry with normal turgor. Normal color with no rashes, no lesions, and no evidence of cellulitis. Neuro: Awake and alert, GCS 15, oriented to person, place, time, and situation. Cranial nerves II-XII grossly intact. Motor strength 5/5 in all extremities. Sensory grossly intact. Cerebellar exam normal. Normal gait. Psych: Awake, alert, with orientation to person, place and time. Behavior, mood, and affect are within normal limits. 08:56 Musculoskeletal/extremity: Normal exam other than mild pain on bilateral plantar portion of the heel. No arch pain noted. Distal neurovascular exam is normal including capillary refill. Pulses are present bilaterally.. Vital Signs: 08:54 BP 125 / 82; Pulse 99; Resp 16; Temp 97.6(O); Pulse Ox 100% on R/A; Weight 93.89 kg; ss Height 5 ft. 0 in. ; Pain 10/10; 08:54 Body Mass Index 40.43 (93.89 kg, 152.4 cm) ss 08:54 Pain Scale: Adult ss MDM: 08:49 Patient medically screened. sp3 08:57 Data reviewed: vital signs, nurses notes. ED course: 28-year-old female with bilateral sp3 heel pain from prolonged standing. I am not highly concerned about fracture, DVT, arch inflammation, vascular compromise or blockage, or any other concerning pathology. Will discharge patient on NSAID and instructions for decreased use and rest.. Administered Medications: No medications were administered Disposition Summary: 03/15/24 08:58 Discharge Ordered Notes: Location: Home sp3 Condition: Stable sp3 Diagnosis - Heel pain bilaterally sp3 Followup: sp3 - With: Private Physician - When: Upon discharge from the Emergency Department - Reason: Continuance of care Discharge Instructions: - Discharge Summary Sheet sp3 - Joint Pain sp3 Forms: - Medication Reconciliation Form sp3 - Antibiotic Education sp3 - Prescription Opioid Use sp3 - Patient Portal Instructions sp3 - Leadership Thank You Letter sp3 Prescriptions: - Diclofenac Sodium 75 mg Oral Tablet Sustained Release - take 1 tablet ORAL route 2 times per day; 30 tablet; Refills: 0, Product sp3 Selection Permitted Signatures: Giana Funes RN RN Иван Fuchs MD MD sp3
[2024-03-15 09:23] VITALS: BP 125/82; TEMP 97.6; O2SAT 100
== END 2024-03-15 09:09 | disposition home or self-care (01) ==
LOC: ER 08:40
DX: M79.672 Pain in left foot (principal); M79.671 Pain in right foot; E11.9 Type 2 diabetes mellitus without complications
CPT/HCPCS: 99283

== ENCOUNTER 2024-04-05 21:23 | Emergency (ER) | payer OTHER ==
--- OUTSIDE RECORDS SUMMARY | 2024-04-05 21:33 | XMS REPORT | Continuity of Care Document ---
Author Name Unknown Address [address] [facility] [address] [place] [address] [facility] thconnect Address [address] [facility] [address] [place] [address] Care Team Providers Care Recruitment Officer Name Role Phone KELLY REYNAGA Primary Care Physician Unavailab SUPRIYA Martinez Attending Clinician SUPRIYA Perez Attending Clinician TONE Dey Attending Clinician Unavailab TONE Ricketts Attending Clinician Unavailab KELLY Busch Attending Clinician Unavailable DANIEL HENDERSON Attending Clinician Unavailable LAURA MARTÍNEZ Attending Clinician Unavailable Tone Henderson DO Attending Clinician [phone] Laura Martínez DDS Attending Clinician [phone] NICKY PECK Attending Clinician Unavailable Nicky Serrano Attending Clinician + [phone] Kelly Lopez Attending Clinician + [phone] Katie Ibarra RN Attending Clinician Unavaila franco Nurse, [facility] Attending Clinician Un available Supriya Yan MD Attending Clinician [phone] Doctor Unassigned, [place] Attending Clinician U navailable Lab, Ang - Db Attending Clinician Unavailable Laura Martínez DDS Attending Clinician [phone] BLAKE PELLETIER Attending Clinician Unavailable Blake Pelletier MD Attending Clinician [phone] [place] BULLOCK Attending Clinician Eliot Lin MD Attending Clinician [phone] ELIOT CHEUNG Attending Clinician Unavailable Tian Caro MD Attending Clinician [phone] Viola Roberts Attending Clinician + [phone] Unknown, Attending Attending Clinician Unavailab VIOLA Gama Attending Clinician Unavailable Lab, Ang - Db Attending Clinician Unavailable Kelly Lopez Attending Clinician [phone] [facility] Lab Main Attending Clinician UnavailOBEY Conn Attending Clinician Unavailable NISHANT CHAPMAN Attending Clinician Unavailable Nurse, [facility] Attending Clinician Un available Nishant Chapman MD Attending Clinician [phone] TIAN CARO Attending Clinician UnavailDarlin VERGARAP-BC DNP, Obey M Attending Clinician Tone Henderson DO Attending Clinician [phone] Marley Camarillo MD Attending Clinician [phone] , [facility] Sleep Lab Bed Attending Clinician Unavail Kenzie Palacio MD Attending Clinician KENZIE CORREA Attending Clinician UnavailKENZIE Parsons Attending Clinician Unavaildusty putnam Doctor Unassigned, [place] Attending Clinician U lauriailable Nicky Serrano Attending Clinician [phone] [place]AT RUBIN Attending Clinician Unavailable Emily Kaminski RN Attending Clinician Unavailabl MARLEY Bo Attending Clinician Unavaillazaro Duong Attending Clinician Unavailab CARMEN House Attending Clinician UnavailCem Slater MD Attending Clinician [phone] CEM HAGAN Attending Clinician Unavailabl e Mirtha Bowman LVN Attending Clinician UnaAnne Ivan MA Attending Clinician Unavailabl Nj Perry MD Attending Clinician + [phone] MALACHI DURAN Attending Clinician Unavailable Malachi Mejia Attending Clinician [phone] Burke POSEY Attending Clinician Unavailable Burke Strauss Attending Clinician [phone] Susan Aguilera RN Attending Clinician Unavailab yolande Provider, [facility] Attending Clinician Unavailable Celina Uribe MD Attending Clinician [phone] Only, Ang Db Test Attending Clinician UnavailCELINA Verduzco Attending Clinician Unavailable Vaccine, Ang Db Cbc Fam Attending Clinician Unav ailable UNKNOWN, ATTENDING Attending Clinician Unavailab SIVAKUMAR Gamez Attending Clinician UnavailIsabel Jaeger RN Attending Clinician Unavailable Diana Mahajan Attending Clinician [phone] Provider, [facility] Attending Clinician Un available STEVE MURO Attending Clinician Unavailable ELIOT CHEUNG Admitting Clinician Unavailable LAURA MARTÍNEZ Admitting Clinician Unavailable Tanya PETTITLaura Farmer Admitting Clinician NICKY PECK Admitting Clinician Unavailable MARLEY CAMARILLO Admitting Clinician Unavaillazaro Doherty_Saray Admitting Clinician Unavailab le Payers Payer Name Policy Type Policy Number Effective Date Expirati on Date Source [facility] [id number] 00:00:00 [facility] [id number] Problems Condition Name Condition Details Condition Category Status Onset Date Resolution Date Last Treatment Date Treating Clinician Comments Source Sinus tachycardi a Sinus tachycardi a Disease Active 12-21 00:00: 00 [facility] Palpitatio ns Palpitatio ns Disease Active 12-21 00:00: 00 [facility] Neutrophil ia Neutrophil ia Disease Active 12-07 00:00: 00 Overview: Formattin g of this note is different from the original. WBC (10*3/?L) Date Value 4 15.69 (H) 4 20.60 (H) 4 14.31 (H) 3 12.29 (H) 3 12.68 (H) [facility] Intoleranc e of continuous positive airway pressure (CPAP) ventilatio n Intoleranc e of continuous positive airway pressure (CPAP) ventilatio n Disease Active 5-20 00:00: 00 [facility] FAWN (obstructi ve sleep apnea) FAWN (obstructi ve sleep apnea) Disease Active 5-17 00:00: 00 [facility] Type 2 diabetes mellitus without complicati on, without long-term current use of insulin Type 2 diabetes mellitus without complicati on, without long-term current use of insulin Disease Active 3-03 00:00: 00 [facility] Morbid obesity Morbid obesity Disease Active 3-03 00:00: 00 [facility] Plantar fasciitis of left foot Plantar fasciitis of left foot Disease Active 9-28 00:00: 00 [facility] Pain in left foot Pain in left foot Disease Resolve d 9-28 00:00: 00 2023-12-11 00:00:00 2023-12-11 09:11:56 [facility] Subacute maxillary sinusitis Subacute maxillary sinusitis Disease Resolve d 6-10 00:00: 00 2023-12-11 00:00:00 2023-12-11 09:11:53 [facility] Left arm pain Left arm pain Disease Resolve d 6-10 00:00: 00 2023-12-11 00:00:00 2023-12-11 09:11:51 [facility] Acute otitis media, bilateral Acute otitis media, bilateral Disease Resolve d 6-10 00:00: 00 2023-12-11 00:00:00 2023-12-11 09:11:49 [facility] Allergies, Adverse Reactions, Alerts Allergy Name Allergy Type Status Severity Reaction(s) Onset Date Inactive Date Treating Clinician Comments Source NO KNOWN ALLERGIE S Drug Class Active [facility] Social History Social Habit Start Date Stop Date Quantity Comments Source History of tobacco use Passive smoker [facility] Alcoholic beverage intake 2024-03-27 00:00:00 2024-03-27 00:00:00 Current drinker of alcohol (finding) [facility] History of Social function 2024-02-18 00:00:00 2024-02-18 00:00:00 [facility] Alcohol Comment 2023-11-20 00:00:00 2023-11-20 00:00:00 ocassional [facility] Alcohol intake 2023-10-05 00:00:00 2023-10-05 00:00:00 Lifetime non-drinker (finding) [facility] Exposure to SARS-CoV-2 (event) 2022-11-06 00:00:00 2022-11-16 16:22:00 Not sure [facility] Tobacco use and exposure 2022-04-17 00:00:00 2022-04-17 00:00:00 Smokeless tobacco non-user [facility] Sex assigned at 1995 00:00:00 1995 00:00:00 [facility] Smoking Status Start Date Stop Date Source Never smoked tobacco [facility] Medications Ordered Medication Name Filled Medication Name Start Date Stop Date Current Medication? Ordering Clinician Indication Dosage Frequency Signature (SIG) Comments Components Source methylPREDN ISolone (MEDROL, JESSICA,) 4 mg tablets 2023-06 00:00: 00 Yes [id number] Take by mouth SEE-INSTRU CTIONS. follow package directions [facility] metFORMIN 500 mg tablet 02-17 00:00: 00 Yes [id number] 500mg Take 1 tablet by mouth in the morning and 1 tablet in the evening. Take with meals. [facility] medroxyPROG ESTERone (DEPO-PROVE RA) syringe 150 mg 01-25 22:45: 00 01-25 21:53 :00 No [id number] 150mg 150 mg, Intramuscu lar, ONCE, 1 dose, On Thu01/26/24 at 1745, Routine [facility] acyclovir 5 % ointment 01-13 00:00: 00 01-18 04:59 :00 No [id number] Apply to area(s) 5 (five) times daily for 4 days. [facility] propranoloL 10 mg tablet 12-21 00:00: 00 06-20 05:59 :00 No [id number] 10mg Take 1 tablet by mouth in the morning and 1 tablet in the evening. Do all this for 180 days. [facility] Potassium Bicarb-Citr ic Acid (EFFER-K) effervescen t tablet 40 mEq 12-18 11:45: 00 12-18 12:04 :00 No [id number] 40 mEq, Oral, ONCE, 1 dose, On Thu12/19/23 at 0645, Routine [facility] iopamidol (ISOVUE 370-500 mL) injection 75 mL 12-18 10:45: 00 12-18 10:45 :00 No [id number] 75mL 75 mL, Intravenou s, ONCE, 1 dose, On 12/19/23 at 0545, [facility]/gram cream 12-15 00:00: 00 12-30 04:59 :00 No [id number] Apply to area(s) 2 (two) times daily for 14 days. [facility] propranoloL (INDERAL) tablet 10 mg 12-10 02:00: 00 Yes 10mg 10 mg, Oral, QHS, First dose on Brenna 12/10/23 at 2100, Until Discontinu ed, Routine [facility] chlorhexidi ne 0.12 % mouthwash 12-10 00:00: 00 12-27 04:59 :00 No [id number] 15mL Swish and spit out 15 mL in the morning and 15 mL in the evening. Do all this for 16 days. [facility] ibuprofen 100 mg/5 mL oral suspension 12-10 00:00: 12-25 04:59 :00 No [id number] 600mg Take 30 mL by mouth every 6 (six) hours for 14 days. [facility] acetaminoph en 160 mg/5 mL (5 mL) oral suspension 12-10 00:00: 00 12-25 04:59 :00 No [id number] 500.16m g Take 15.63 mL by mouth every 6 (six) hours for 14 days. [facility] HYDROcodone -acetaminop hen 7.5-325 mg/15 mL solution 12-10 00:00: 00 12-18 04:59 :00 No [id number] 5mg Take 10 mL by mouth 4 (four) times daily as needed for Pain (scale 7-10) for up to 7 days. Indication s: acute pain [facility] amoxicillin -pot clavulanate (AUGMENTIN) 250-62.5 mg/5 mL suspension 12-10 00:00: 00 12-15 00:00 :00 No [id number] 500mg Take 10 mL by mouth in the morning and 10 mL at noon and 10 mL in the evening. Do all this for 10 days. [facility] acetaminoph en (TYLENOL) 160 mg/5 mL oral liquid 500 mg 12-09 23:00: 00 Yes 500mg 500 mg, Oral, Q6H, First dose on Thu12/10/23 at 1800, Until Discontinu ed, Routine [facility] ketorolac (TORADOL) injection 15 mg 12-09 23:00: 00 12-11 22:59 :00 No 15mg 15 mg, Slow IV Push, Q6H, 8 doses, First dose (after last modificati on) on Thu12/10/23 at 1800, Last dose on Thu12/12/23 at 1200, Routine [facility] dexamethaso ne sod phos PF injection 10 mg 12-09 17:45: 00 12-10 10:59 :00 No 10mg 10 mg, Intravenou s, Q8H, 3 doses, First dose on Thu12/10/23 at 1245, Last dose on Thu12/10/23 at 2200, 1 mL [facility] Sliding Scale Insulin - Lispro (HumaLOG) 12-09 17:00: 00 Yes Subcutaneo us, TID MEALS+HS, First dose on Thu12/10/23 at 1200, Until Discontinu ed, Routine [facility] glucagon (GLUCAGEN DIAGNOSTIC KIT) injection 1 mg 12-09 15:32: 11 Yes 1mg 1 mg, Intramuscu lar, PRN, Starting on Thu12/10/23 at 1032, Until Discontinu ed, LG, Blood Glucose < or = 70 mg/dL and patient is NPO, unable to swallow or has mental changes. [facility] dextrose 50 % in water (D50W) injection 25 mL 12-09 15:32: 11 Yes 25mL 25 mL, Slow IV Push, PRN, Starting on Thu12/10/23 at 1032, Until Discontinu ed, LG, Blood Glucose < or = 70 mg/dL and patient is NPO, unable to swallow or has mental status changes. [facility] chlorhexidi ne (PERIDEX) 0.12 % mouthwash 15 mL 12-09 01:00: 00 Yes 15mL 15 mL, Oral (Swish And Spit Out), BID, First dose on Thu12/09/23 at 2000, Until Discontinu ed, Routine [facility] ampicillin- sulbactam (UNASYN) 3 g [...] of therapy: within 24 hours of surgery [facility] FENTanyl PF (SUBLIMAZE (PF)) injection 25 mcg 12-08 20:27: 24 12-08 22:08 :40 No 25ug 25 mcg, Slow IV Push, Q5MIN PRN, 4 doses, Starting on Thu12/09/23 at 1527, Until Thu12/09/23 at 1708, Routine, Pain (scale 4-6), PACU [facility] lactated ringers IV infusion 1,000 mL 12-08 20:00: 00 Yes 1000mL at 42 mL/hr, 1,000 mL, IV Infusion, CONTINUOUS , Starting on Thu12/09/23 at 1500, Until Discontinu ed, Routine [facility] ketorolac (TORADOL) injection 15 mg 12-08 19:58: 06 12-09 19:29 :07 No 15mg 15 mg, Slow IV Push, Q6HPRN, Starting on Thu12/09/23 at 1458, Until Brenna 12/10/23 at 1429, Routine, Pain (scale 4-6) [facility] HYDROcodone -acetaminop hen (HYCET) 7.5-325 mg/15 mL solution 5 mg 12-08 19:57: 48 Yes 5mg 5 mg, Oral, Q6HPRN, Starting on Thu12/09/23 at 1457, Until Discontinu ed, Routine, Pain (scale 7-10) [facility] ondansetron (ZOFRAN (PF)) injection 4 mg 12-08 19:54: 58 Yes 4mg 4 mg, Slow IV Push, Q4HPRN, Starting on Thu12/09/23 at 1454, Until Discontinu ed, Routine, Nausea and Vomiting (N/V) [facility] lidocaine-e pinephrine (XYLOCAINE WITH EPINEPHRINE ) 1 %-1:100,000 injection 12-08 17:56: 00 12-08 20:27 :10 No PRN, Starting on Thu12/09/23 at 1256, Until Thu12/09/23 at 1527, Routine, Intra-op [facility] oxymetazoli ne (OXYMETAZOL INE HCL) 0.05 % nasal spray 12-08 17:55: 00 12-08 20:27 :10 No Intra-op [facility] vancomycin (VANCOCIN) 1,000 mg in NaCl 0.9% (NS) 1,000 mL OR irrigation 12-08 17:55: 00 12-08 20:27 :10 No PRN, Starting on Thu12/09/23 at 1255, Intra-op [facility] lactated ringers IV infusion 1,000 mL 11-11 15:00: 00 11-11 17:50 :15 No 1000mL at 75 mL/hr, 1,000 mL, IV Infusion, CONTINUOUS , Starting on Brenna 11/12/23 at 1000, Until Brenna 11/12/23 at 1250, Routine, PACU [facility] ondansetron (ZOFRAN (PF)) injection 4 mg 11-11 14:56: 17 11-11 17:50 :15 No 4mg 4 mg, Slow IV Push, PRN, 1 dose, Starting on Brenna 11/12/23 at 0956, Until Brenna 11/12/23 at 1250, Routine, Nausea and Vomiting (N/V), PACU [facility] no115/iron/ folic acid ( 19 ORAL) 11-11 10:50: 12 12-15 00:00 :00 No Take by mouth. [facility] medroxyPROG ESTERone (DEPO-PROVE RA) syringe 150 mg 11-02 16:45: 00 11-02 15:51 :00 No [id number] 150mg 150 mg, Intramuscu lar, ONCE, 1 dose, On Thu11/03/23 at 1145, Routine [facility] semaglutide (OZEMPIC) 1 mg/dose (4 mg/3 mL) Ij 10-20 00:00: 00 02-17 00:00 :00 No [id number] 1mg inject 1 mg under the skin weekly. [facility] propranoloL 10 mg tablet 09-21 00:00: 00 12-21 00:00 :00 No [id number] 10mg Take 1 tablet by mouth at bedtime. [facility] medroxyPROG ESTERone (DEPO-PROVE RA) syringe 150 mg 08-09 15:00: 00 08-09 14:14 :00 No [id number] 150mg [facility] semaglutide (OZEMPIC) 1 mg/dose (4 mg/3 mL) Ij 07-30 00:00: 00 10-20 00:00 :00 No [id number] 1mg inject 1 mg under the skin weekly. [facility] Cholecalcif fortunato, Vitamin D3, (VITAMIN D3) 50 mcg (2,000 unit) tablet 07-23 00:00: 00 12-15 00:00 :00 No [id number] 2000U Take 1 tablet by mouth in the morning. [facility] ergocalcife rol, vitamin d2, 1,250 mcg (50,000 unit) capsule 07-15 00:00: 07-23 00:00 :00 No [id number] Take 1 capsule by mouth weekly. [facility] semaglutide (OZEMPIC) 1 mg/dose (4 mg/3 mL) PnIj -18 00:00: 00 07-30 00:00 :00 No [id number] 1mg inject 1 mg under the skin weekly. [facility] cefUROXime 250 mg tablet 1-10 00:00: 00 06-25 05:59 :00 No [id number] 250mg Take 1 tablet by mouth in the morning and 1 tablet in the evening. Do all this for 7 days. [facility] semaglutide (OZEMPIC) 1 mg/dose (4 mg/3 mL) PnIj 2022-06-15 00:00: 00 06-25 00:00 :00 No [id number] 1mg inject 1 mg under the skin weekly. [facility] ergocalcife rol, vitamin d2, 1,250 mcg (50,000 unit) capsule 2022-06-20 00:00: 00 07-15 00:00 :00 No [id number] Take 1 capsule by mouth weekly. [facility] semaglutide (OZEMPIC) 1 mg/dose (4 mg/3 mL) PnIj 2022-06 0-19 00:00: 00 05-22 00:00 :00 No [id number] 1mg inject 1 mg under the skin weekly. [facility] medroxyPROG ESTERone (DEPO-PROVE RA) syringe 150 mg 18 15:30: 00 02-23 14:44 :00 No [id number] 150mg [facility] semaglutide (OZEMPIC) 0.25 mg or 0.5 mg(2 mg/1.5 mL) PnIj 8-21 00:00: 00 03-26 00:00 :00 No [id number] .5mg inject 0.5 mg under the skin weekly. [facility] cefUROXime 250 mg tablet -19 00:00: 00 01-01 04:59 :00 No [id number] 250mg Take 1 tablet by mouth in the morning and 1 tablet in the evening. Do all this for 7 days. [facility] semaglutide (OZEMPIC) 0.25 mg or 0.5 mg(2 mg/1.5 mL) Ij 2022-- 00:00: 00 01-26 00:00 :00 No [id number] .5mg inject 0.5 mg under the skin weekly. [facility] medroxyPROG ESTERone (DEPO-PROVE RA) syringe 150 mg 11-18 14:45: 00 11-18 13:54 :00 No [id number] 150mg [facility] ferrous sulfate (IRON ORAL) 11-18 08:43: 18 Yes Take by mouth. [facility] semaglutide (OZEMPIC) 0.25 mg or 0.5 mg(2 mg/1.5 mL) [facility] 11-12 00:00: 00 12-18 00:00 :00 No [id number] .5mg inject 0.5 mg under the skin weekly. [facility] semaglutide (OZEMPIC) 0.25 mg or 0.5 mg(2 mg/1.5 mL) [facility] 2022--03 00:00: 00 11-12 00:00 :00 No [id number] .5mg inject 0.5 mg under the skin weekly. [facility] medroxyPROG ESTERone (DEPO-PROVE RA) syringe 150 mg 08-12 18:15: 00 08-12 17:15 :00 No [id number] 150mg [facility] semaglutide (OZEMPIC) 0.25 mg or 0.5 mg(2 mg/1.5 mL) Ij 3-03 00:00: 00 09-08 00:00 :00 No [id number] .25mg inject 0.25 mg under the skin weekly. [facility] metformin ER 750 mg 24 hr tablet 2023-0 1-20 00:00: 00 09-08 00:00 :00 No [id number] 750mg Take 1 tablet by mouth daily with breakfast. [facility] medroxyPROG ESTERone (DEPO-PROVE RA) syringe 150 mg 2021-06 16:30: 00 05-19 15:52 :00 No [id number] 150mg [facility] triamcinolo ne acetonide 0.1 % cream 2021-06 00:00: 00 Yes [id number] Apply to area(s) 2 (two) times daily. [facility] ketoconazol e 2 % cream 2021-06 00:00: 00 Yes [id number] Apply to area(s) 2 (two) times daily. [facility] hydrOXYzine 25 mg tablet 2021-06 00:00: 00 12-15 00:00 :00 No [id number] 25mg Take 1 tablet by mouth every 6 (six) hours as needed for Itching. [facility] metformin ER 750 mg 24 hr tablet 2021-06 00:00: 00 06-27 00:00 :00 No [id number] 750mg Take 1 tablet by mouth daily with breakfast. [facility] ferrous sulfate (IRON ORAL) 2021-06 10:45: 25 Yes Take by mouth. [facility] miSOPROStoL 200 mcg tablet 2021-06 00:00: 00 04-21 00:00 :00 No [id number] 200ug Take 1 tablet by mouth SEE-INSTRU CTIONS. Take one tab the night before and one tab the morning of procedure [facility] Diclofenac Sodium (VOLTAREN) 1 % gel 02-07 00:00: 00 09-08 00:00 :00 No [id number] 9107 Apply to area(s) 4 (four) times daily. Apply 4 g qid [facility] flash glucose sensor (FREESTYLE BAMBI 14 DAY SENSOR) Kit 8-29 00:00: 00 09-08 00:00 :00 No 1{each} 1 Each every 14 (fourteen) days. Use as directed every 14 days for E11.9 [facility] metformin ER 750 mg 24 hr tablet 8-15 00:00: 00 05-09 00:00 :00 No [id number] 750mg Take 1 tablet by mouth daily with breakfast. [facility] naproxen 500 mg tablet 8-12 00:00: 00 09-08 00:00 :00 No [id number] 9107 500mg Take 1 tablet by mouth 2 (two) times daily as needed for Pain (scale 4-6). [facility] sulfamethox azole-trime thoprim (BACTRIM DS) 800-160 mg per tablet -31 00:00: 00 09-08 00:00 :00 No [id number] 9100 1{tbl} Take 1 tablet by mouth 2 (two) times daily. [facility] butalbital- acetaminoph en-caff 50-325-40 mg tablet 5-19 00:00: 00 09-08 00:00 :00 No [id number] 1{tbl} Take 1 tablet by mouth every 4 (four) hours as needed for Pain (scale 7-10). [facility] lisinopriL 2.5 mg tablet 3-25 00:00: 00 09-08 00:00 :00 No [id number] 2.5mg Take 1 tablet by mouth daily. [facility] SITagliptin (JANUVIA) 100 mg tablet 3-25 00:00: 00 06-27 00:00 :00 No [id number] 100mg Take 1 tablet by mouth daily. [facility] canaglifloz in (INVOKANA) 100 mg tablet 3-25 00:00: 00 10-15 00:00 :00 No [id number] 100mg Take 1 tablet by mouth daily. [facility] mupirocin 2 % ointment 1-21 00:00: 09-08 00:00 :00 No [id number] Apply to area(s) 3 (three) times daily. [facility] naproxen 500 mg tablet 2020-0616 00:00: 00 06-23 05:59 :00 No [id number] 9100 500mg Take 1 tablet by mouth 2 (two) times daily as needed for Pain (scale 4-6) for up to 30 days. [facility] pantoprazol e 40 mg EC tablet 2020-06 00:00: 00 09-08 00:00 :00 No [facility] famotidine 20 mg tablet 2020-06 00:00: 00 09-08 00:00 :00 No [facility] ibuprofen 800 mg tablet 2020-06 00:00: 00 01-17 00:00 :00 No [facility] SUMAtriptan 50 mg tablet 2020-06 00:00: 00 09-08 00:00 :00 No [facility] fluticasone propionate 50 mcg/actuati on nasal spray 2020-06 0 00:00: 00 09-08 00:00 :00 No [id number] 1{spray } Use 1 Sperry in each nostril daily. [facility] guaiFENesin 400 mg tablet 2020-06 0 00:00: 00 01-17 00:00 :00 No [id number] 400mg Take 1 tablet by mouth every 4 (four) hours as needed for Cough. [facility] ciprofloxac in-dexameth asone (CIPRODEX) 0.3-0.1 % otic drops 2020-06 0 00:00: 00 01-17 00:00 :00 No [id number] 4[drp] Place 4 Drops in right ear 2 (two) times daily. [facility] glimepiride 2 mg tablet 2020-06 00:00: 00 06-20 00:00 :00 No [facility] metFORMIN 500 mg tablet 02-18 00:00: 00 06-20 00:00 :00 No [facility] acetaminoph en 650 mg CR tablet 11-15 00:00: 00 09-08 00:00 :00 No [id number] 650mg Take 1 tablet by mouth every 8 (eight) hours as needed for Pain or Fever. [facility] Diclofenac Sodium (VOLTAREN) 1 % gel 11-15 00:00: 00 02-07 00:00 :00 No [id number] Apply to area(s) 4 (four) times daily. Apply 4 g qid [facility] amoxicillin -clavulanat e (AUGMENTIN) 875-125 mg per tablet 11-15 00:00: 00 01-17 00:00 :00 No [id number] 1{tbl} Take 1 tablet by mouth 2 (two) times daily. [facility] DEPO-FORMING MILL OPERATOR A 150 mg/mL syringe 11-08 00:00: 00 09-08 00:00 :00 No [facility] nystatin 100,000 unit/gram cream 4-30 00:00: 00 09-08 00:00 :00 No [facility] chlorhexidi ne 0.12 % mouthwash 4-27 00:00: 00 12-15 00:00 :00 No 32mL 32 mL. [facility] Immunizations Ordered Immunization Name Filled Immunization Name Date Status Comments Source Flu Injectable MDCK Pres-Free (FLUCELVAX) 2024-02-18 00:00:00 Completed [facility] Influenza Virus Vaccine Quad IM, Preserv and ABX Free 6 MO-64 YRS (FLUCELVAX) 2023-03-26 00:00:00 Completed SARS-COV-2 COVID-19 PFIZER VACCINE 2021-05-10 00:00:00 Completed [facility] SARS-COV-2 COVID-19 PFIZER VACCINE 2021-05-10 00:00:00 Completed [facility] SARS-COV-2 COVID-19 PFIZER VACCINE 2021-05-10 00:00:00 Completed [facility] SARS-COV-2 COVID-19 PFIZER VACCINE 2021-05-10 00:00:00 Completed [facility] SARS-COV-2 COVID-19 PFIZER VACCINE 2021-05-10 00:00:00 Completed [facility] SARS-COV-2 COVID-19 PFIZER VACCINE 2021-05-10 00:00:00 Completed [facility] SARS-COV-2 COVID-19 PFIZER VACCINE 2021-05-10 00:00:00 Completed [facility] SARS-COV-2 COVID-19 PFIZER VACCINE 2021-05-10 00:00:00 Completed [facility] SARS-COV-2 COVID-19 PFIZER VACCINE 2021-05-10 00:00:00 Completed [facility] SARS-COV-2 COVID-19 PFIZER VACCINE 2021-05-10 00:00:00 Completed [facility] SARS-COV-2 COVID-19 PFIZER VACCINE 2021-05-10 00:00:00 Completed [facility] SARS-COV-2 COVID-19 PFIZER VACCINE 2021-05-10 00:00:00 Completed [facility] SARS-COV-2 COVID-19 PFIZER VACCINE 2021-05-10 00:00:00 Completed [facility] SARS-COV-2 COVID-19 PFIZER VACCINE 2021-05-10 00:00:00 Completed [facility] SARS-COV-2 COVID-19 PFIZER VACCINE 2021-05-10 00:00:00 Completed [facility] SARS-COV-2 COVID-19 PFIZER VACCINE 2021-05-10 00:00:00 Completed [facility] SARS-COV-2 COVID-19 PFIZER VACCINE 2021-05-10 00:00:00 Completed [facility] SARS-COV-2 COVID-19 PFIZER VACCINE 2021-05-10 00:00:00 Completed [facility] SARS-COV-2 COVID-19 PFIZER VACCINE 2021-05-10 00:00:00 Completed [facility] SARS-COV-2 COVID-19 PFIZER VACCINE 2021-05-10 00:00:00 Completed [facility] SARS-COV-2 COVID-19 PFIZER VACCINE 2021-05-10 00:00:00 Completed [facility] SARS-COV-2 COVID-19 PFIZER VACCINE 2021-05-10 00:00:00 Completed [facility] SARS-COV-2 COVID-19 PFIZER VACCINE 2021-05-10 00:00:00 Completed [facility] SARS-COV-2 COVID-19 PFIZER VACCINE 2021-05-10 00:00:00 Completed [facility] SARS-COV-2 COVID-19 PFIZER VACCINE 2021-05-10 00:00:00 Completed [facility] SARS-COV-2 COVID-19 PFIZER VACCINE 2021-05-10 00:00:00 Completed [facility] SARS-COV-2 COVID-19 PFIZER VACCINE 2021-05-10 00:00:00 Completed [facility] SARS-COV-2 COVID-19 PFIZER VACCINE 2021-05-10 00:00:00 Completed [facility] SARS-COV-2 COVID-19 PFIZER VACCINE 2021-05-10 00:00:00 Completed [facility] SARS-COV-2 COVID-19 PFIZER VACCINE 2021-05-10 00:00:00 Completed [facility] SARS-COV-2 COVID-19 PFIZER VACCINE 2021-05-10 00:00:00 Completed [facility] SARS-COV-2 COVID-19 PFIZER VACCINE 2021-05-10 00:00:00 Completed [facility] SARS-COV-2 COVID-19 PFIZER VACCINE 2021-05-10 00:00:00 Completed [facility] SARS-COV-2 COVID-19 PFIZER VACCINE 2021-05-10 00:00:00 Completed [facility] SARS-COV-2 COVID-19 PFIZER VACCINE 2021-05-10 00:00:00 Completed [facility] SARS-COV-2 COVID-19 PFIZER VACCINE 2021-05-10 00:00:00 Completed [facility] SARS-COV-2 COVID-19 PFIZER VACCINE 2021-05-10 00:00:00 Completed [facility] SARS-COV-2 COVID-19 PFIZER VACCINE 2021-05-10 00:00:00 Completed [facility] SARS-COV-2 COVID-19 PFIZER VACCINE 2021-05-10 00:00:00 Completed [facility] SARS-COV-2 COVID-19 PFIZER VACCINE 2021-05-10 00:00:00 Completed [facility] SARS-COV-2 COVID-19 PFIZER VACCINE 2021-05-10 00:00:00 Completed [facility] SARS-COV-2 COVID-19 PFIZER VACCINE 2021-05-10 00:00:00 Completed [facility] SARS-COV-2 COVID-19 PFIZER VACCINE 2021-05-10 00:00:00 Completed [facility] SARS-COV-2 COVID-19 PFIZER VACCINE 2021-05-10 00:00:00 Completed [facility] SARS-COV-2 COVID-19 PFIZER VACCINE 2021-05-10 00:00:00 Completed [facility] SARS-COV-2 COVID-19 PFIZER VACCINE 2021-05-10 00:00:00 Completed [facility] SARS-COV-2 COVID-19 PFIZER VACCINE 2021-05-10 00:00:00 Completed [facility] Influenza Virus Vaccine Quad IM, Preserv and ABX Free 6 MO-64 YRS 2021-04-22 00:00:00 Completed [facility] TDAP 2021-04-22 00:00:00 Completed [facility] Influenza Virus Vaccine Quad IM, Preserv and ABX Free 6 MO-64 YRS 2021-04-22 00:00:00 Completed [facility] TDAP 2021-04-22 00:00:00 Completed [facility] Influenza Virus Vaccine Quad IM, Preserv and ABX Free 6 MO-64 YRS 2021-04-22 00:00:00 Completed [facility] TDAP 2021-04-22 00:00:00 Completed [facility] Influenza Virus Vaccine Quad IM, Preserv and ABX Free 6 MO-64 YRS 2021-04-22 00:00:00 Completed [facility] TDAP 2021-04-22 00:00:00 Completed [facility] Influenza Virus Vaccine Quad IM, Preserv and ABX Free 6 MO-64 YRS 2021-04-22 00:00:00 Completed [facility] TDAP 2021-04-22 00:00:00 Completed [facility] Influenza Virus Vaccine Quad IM, Preserv and ABX Free 6 MO-64 YRS 2021-04-22 00:00:00 Completed [facility] TDAP 2021-04-22 00:00:00 Completed [facility] Influenza Virus Vaccine Quad IM, Preserv and ABX Free 6 MO-64 YRS 2021-04-22 00:00:00 Completed [facility] TDAP 2021-04-22 00:00:00 Completed [facility] Influenza Virus Vaccine Quad IM, Preserv and ABX Free 6 MO-64 YRS 2021-04-22 00:00:00 Completed [facility] TDAP 2021-04-22 00:00:00 Completed [facility] Influenza Virus Vaccine Quad IM, Preserv and ABX Free 6 MO-64 YRS 2021-04-22 00:00:00 Completed [facility] TDAP 2021-04-22 00:00:00 Completed [facility] Influenza Virus Vaccine Quad IM, Preserv and ABX Free 6 MO-64 YRS 2021-04-22 00:00:00 Completed [facility] TDAP 2021-04-22 00:00:00 Completed [facility] Influenza Virus Vaccine Quad IM, Preserv and ABX Free 6 MO-64 YRS 2021-04-22 00:00:00 Completed [facility] TDAP 2021-04-22 00:00:00 Completed [facility] Influenza Virus Vaccine Quad IM, Preserv and ABX Free 6 MO-64 YRS 2021-04-22 00:00:00 Completed [facility] TDAP 2021-04-22 00:00:00 Completed [facility] Influenza Virus Vaccine Quad IM, Preserv and ABX Free 6 MO-64 YRS 2021-04-22 00:00:00 Completed [facility] TDAP 2021-04-22 00:00:00 Completed [facility] Influenza Virus Vaccine Quad IM, Preserv and ABX Free 6 MO-64 YRS 2021-04-22 00:00:00 Completed [facility] TDAP 2021-04-22 00:00:00 Completed [facility] Influenza Virus Vaccine Quad IM, Preserv and ABX Free 6 MO-64 YRS 2021-04-22 00:00:00 Completed [facility] TDAP 2021-04-22 00:00:00 Completed [facility] Influenza Virus Vaccine Quad IM, Preserv and ABX Free 6 MO-64 YRS 2021-04-22 00:00:00 Completed [facility] TDAP 2021-04-22 00:00:00 Completed [facility] Influenza Virus Vaccine Quad IM, Preserv and ABX Free 6 MO-64 YRS 2021-04-22 00:00:00 Completed [facility] TDAP 2021-04-22 00:00:00 Completed [facility] Influenza Virus Vaccine Quad IM, Preserv and ABX Free 6 MO-64 YRS 2021-04-22 00:00:00 Completed [facility] TDAP 2021-04-22 00:00:00 Completed [facility] Influenza Virus Vaccine Quad IM, Preserv and ABX Free 6 MO-64 YRS 2021-04-22 00:00:00 Completed [facility] TDAP 2021-04-22 00:00:00 Completed [facility] Influenza Virus Vaccine Quad IM, Preserv and ABX Free 6 MO-64 YRS 2021-04-22 00:00:00 Completed [facility] TDAP 2021-04-22 00:00:00 Completed [facility] Influenza Virus Vaccine Quad IM, Preserv and ABX Free 6 MO-64 YRS 2021-04-22 00:00:00 Completed [facility] TDAP 2021-04-22 00:00:00 Completed [facility] Influenza Virus Vaccine Quad IM, Preserv and ABX Free 6 MO-64 YRS 2021-04-22 00:00:00 Completed [facility] TDAP 2021-04-22 00:00:00 Completed [facility] Influenza Virus Vaccine Quad IM, Preserv and ABX Free 6 MO-64 YRS 2021-04-22 00:00:00 Completed [facility] TDAP 2021-04-22 00:00:00 Completed [facility] Influenza Virus Vaccine Quad IM, Preserv and ABX Free 6 MO-64 YRS 2021-04-22 00:00:00 Completed [facility] TDAP 2021-04-22 00:00:00 Completed [facility] Influenza Virus Vaccine Quad IM, Preserv and ABX Free 6 MO-64 YRS 2021-04-22 00:00:00 Completed [facility] TDAP 2021-04-22 00:00:00 Completed [facility] Influenza Virus Vaccine Quad IM, Preserv and ABX Free 6 MO-64 YRS 2021-04-22 00:00:00 Completed [facility] TDAP 2021-04-22 00:00:00 Completed [facility] Influenza Virus Vaccine Quad IM, Preserv and ABX Free 6 MO-64 YRS 2021-04-22 00:00:00 Completed [facility] TDAP 2021-04-22 00:00:00 Completed [facility] Influenza Virus Vaccine Quad IM, Preserv and ABX Free 6 MO-64 YRS 2021-04-22 00:00:00 Completed [facility] TDAP 2021-04-22 00:00:00 Completed [facility] Influenza Virus Vaccine Quad IM, Preserv and ABX Free 6 MO-64 YRS 2021-04-22 00:00:00 Completed [facility] TDAP 2021-04-22 00:00:00 Completed [facility] Influenza Virus Vaccine Quad IM, Preserv and ABX Free 6 MO-64 YRS 2021-04-22 00:00:00 Completed [facility] TDAP 2021-04-22 00:00:00 Completed [facility] Influenza Virus Vaccine Quad IM, Preserv and ABX Free 6 MO-64 YRS 2021-04-22 00:00:00 Completed [facility] TDAP 2021-04-22 00:00:00 Completed [facility] Influenza Virus Vaccine Quad IM, Preserv and ABX Free 6 MO-64 YRS 2021-04-22 00:00:00 Completed [facility] TDAP 2021-04-22 00:00:00 Completed [facility] Influenza Virus Vaccine Quad IM, Preserv and ABX Free 6 MO-64 YRS 2021-04-22 00:00:00 Completed [facility] TDAP 2021-04-22 00:00:00 Completed [facility] Influenza Virus Vaccine Quad IM, Preserv and ABX Free 6 MO-64 YRS 2021-04-22 00:00:00 Completed [facility] TDAP 2021-04-22 00:00:00 Completed [facility] Influenza Virus Vaccine Quad IM, Preserv and ABX Free 6 MO-64 YRS 2021-04-22 00:00:00 Completed [facility] TDAP 2021-04-22 00:00:00 Completed [facility] Influenza Virus Vaccine Quad IM, Preserv and ABX Free 6 MO-64 YRS 2021-04-22 00:00:00 Completed [facility] TDAP 2021-04-22 00:00:00 Completed [facility] Influenza Virus Vaccine Quad IM, Preserv and ABX Free 6 MO-64 YRS 2021-04-22 00:00:00 Completed [facility] TDAP 2021-04-22 00:00:00 Completed [facility] Influenza Virus Vaccine Quad IM, Preserv and ABX Free 6 MO-64 YRS 2021-04-22 00:00:00 Completed [facility] TDAP 2021-04-22 00:00:00 Completed [facility] Influenza Virus Vaccine Quad IM, Preserv and ABX Free 6 MO-64 YRS 2021-04-22 00:00:00 Completed [facility] TDAP 2021-04-22 00:00:00 Completed [facility] Influenza Virus Vaccine Quad IM, Preserv and ABX Free 6 MO-64 YRS 2021-04-22 00:00:00 Completed [facility] TDAP 2021-04-22 00:00:00 Completed [facility] Influenza Virus Vaccine Quad IM, Preserv and ABX Free 6 MO-64 YRS 2021-04-22 00:00:00 Completed [facility] TDAP 2021-04-22 00:00:00 Completed [facility] Influenza Virus Vaccine Quad IM, Preserv and ABX Free 6 MO-64 YRS 2021-04-22 00:00:00 Completed [facility] TDAP 2021-04-22 00:00:00 Completed [facility] Influenza Virus Vaccine Quad IM, Preserv and ABX Free 6 MO-64 YRS 2021-04-22 00:00:00 Completed [facility] TDAP 2021-04-22 00:00:00 Completed [facility] Influenza Virus Vaccine Quad IM, Preserv and ABX Free 6 MO-64 YRS (FLUCELVAX) 2021-04-22 00:00:00 Completed [facility] TDAP 2021-04-22 00:00:00 Completed [facility] Influenza Virus Vaccine Quad IM, Preserv and ABX Free 6 MO-64 YRS (FLUCELVAX) 2021-04-22 00:00:00 Completed [facility] TDAP 2021-04-22 00:00:00 Completed [facility] Influenza Virus Vaccine Quad IM, Preserv and ABX Free 6 MO-64 YRS (FLUCELVAX) 2021-04-22 00:00:00 Completed [facility] TDAP 2021-04-22 00:00:00 Completed [facility] Influenza Virus Vaccine Quad IM, Preserv and ABX Free 6 MO-64 YRS (FLUCELVAX) 2021-04-22 00:00:00 Completed [facility] TDAP 2021-04-22 00:00:00 Completed Meningococcal Polysaccharide (groups A, C, Y and W-135) conjugate vaccine (MCV4P) 2021-02-12 00:00:00 Completed [facility] Meningococcal Polysaccharide (groups A, C, Y and W-135) conjugate vaccine (MCV4P) 2021-02-12 00:00:00 Completed [facility] Meningococcal Polysaccharide (groups A, C, Y and W-135) conjugate vaccine (MCV4P) 2021-02-12 00:00:00 Completed [facility] Meningococcal Polysaccharide (groups A, C, Y and W-135) conjugate vaccine (MCV4P) 2021-02-12 00:00:00 Completed [facility] Meningococcal Polysaccharide (groups A, C, Y and W-135) conjugate vaccine (MCV4P) 2021-02-12 00:00:00 Completed [facility] Meningococcal Polysaccharide (groups A, C, Y and W-135) conjugate vaccine (MCV4P) 2021-02-12 00:00:00 Completed [facility] Meningococcal Polysaccharide (groups A, C, Y and W-135) conjugate vaccine (MCV4P) 2021-02-12 00:00:00 Completed [facility] Meningococcal Polysaccharide (groups A, C, Y and W-135) conjugate vaccine (MCV4P) 2021-02-12 00:00:00 Completed [facility] Meningococcal Polysaccharide (groups A, C, Y and W-135) conjugate vaccine (MCV4P) 2021-02-12 00:00:00 Completed [facility] Meningococcal Polysaccharide (groups A, C, Y and W-135) conjugate vaccine (MCV4P) 2021-02-12 00:00:00 Completed [facility] Meningococcal Polysaccharide (groups A, C, Y and W-135) conjugate vaccine (MCV4P) 2021-02-12 00:00:00 Completed [facility] Meningococcal Polysaccharide (groups A, C, Y and W-135) conjugate vaccine (MCV4P) 2021-02-12 00:00:00 Completed [facility] Meningococcal Polysaccharide (groups A, C, Y and W-135) conjugate vaccine (MCV4P) 2021-02-12 00:00:00 Completed [facility] Meningococcal Polysaccharide (groups A, C, Y and W-135) conjugate vaccine (MCV4P) 2021-02-12 00:00:00 Completed [facility] Meningococcal Polysaccharide (groups A, C, Y and W-135) conjugate vaccine (MCV4P) 2021-02-12 00:00:00 Completed [facility] Meningococcal Polysaccharide (groups A, C, Y and W-135) conjugate vaccine (MCV4P) 2021-02-12 00:00:00 Completed [facility] Meningococcal Polysaccharide (groups A, C, Y and W-135) conjugate vaccine (MCV4P) 2021-02-12 00:00:00 Completed [facility] Meningococcal Polysaccharide (groups A, C, Y and W-135) conjugate vaccine (MCV4P) 2021-02-12 00:00:00 Completed [facility] Meningococcal Polysaccharide (groups A, C, Y and W-135) conjugate vaccine (MCV4P) 2021-02-12 00:00:00 Completed [facility] Meningococcal Polysaccharide (groups A, C, Y and W-135) conjugate vaccine (MCV4P) 2021-02-12 00:00:00 Completed [facility] Meningococcal Polysaccharide (groups A, C, Y and W-135) conjugate vaccine (MCV4P) 2021-02-12 00:00:00 Completed [facility] Meningococcal Polysaccharide (groups A, C, Y and W-135) conjugate vaccine (MCV4P) 2021-02-12 00:00:00 Completed [facility] Meningococcal Polysaccharide (groups A, C, Y and W-135) conjugate vaccine (MCV4P) 2021-02-12 00:00:00 Completed [facility] Meningococcal Polysaccharide (groups A, C, Y and W-135) conjugate vaccine (MCV4P) 2021-02-12 00:00:00 Completed [facility] Meningococcal Polysaccharide (groups A, C, Y and W-135) conjugate vaccine (MCV4P) 2021-02-12 00:00:00 Completed [facility] Meningococcal Polysaccharide (groups A, C, Y and W-135) conjugate vaccine (MCV4P) 2021-02-12 00:00:00 Completed [facility] Meningococcal Polysaccharide (groups A, C, Y and W-135) conjugate vaccine (MCV4P) 2021-02-12 00:00:00 Completed [facility] Meningococcal Polysaccharide (groups A, C, Y and W-135) conjugate vaccine (MCV4P) 2021-02-12 00:00:00 Completed [facility] Meningococcal Polysaccharide (groups A, C, Y and W-135) conjugate vaccine (MCV4P) 2021-02-12 00:00:00 Completed [facility] Meningococcal Polysaccharide (groups A, C, Y and W-135) conjugate vaccine (MCV4P) 2021-02-12 00:00:00 Completed SARS-COV-2 COVID-19 PFIZER VACCINE 2020-09-19 00:00:00 Completed [facility] SARS-COV-2 COVID-19 PFIZER VACCINE 2020-09-19 00:00:00 Completed [facility] SARS-COV-2 COVID-19 PFIZER VACCINE 2020-09-19 00:00:00 Completed [facility] SARS-COV-2 COVID-19 PFIZER VACCINE 2020-09-19 00:00:00 Completed [facility] SARS-COV-2 COVID-19 PFIZER VACCINE 2020-09-19 00:00:00 Completed [facility] SARS-COV-2 COVID-19 PFIZER VACCINE 2020-09-19 00:00:00 Completed [facility] SARS-COV-2 COVID-19 PFIZER VACCINE 2020-09-19 00:00:00 Completed [facility] SARS-COV-2 COVID-19 PFIZER VACCINE 2020-09-19 00:00:00 Completed [facility] SARS-COV-2 COVID-19 PFIZER VACCINE 2020-09-19 00:00:00 Completed [facility] SARS-COV-2 COVID-19 PFIZER VACCINE 2020-09-19 00:00:00 Completed [facility] SARS-COV-2 COVID-19 PFIZER VACCINE 2020-09-19 00:00:00 Completed [facility] SARS-COV-2 COVID-19 PFIZER VACCINE 2020-09-19 00:00:00 Completed [facility] SARS-COV-2 COVID-19 PFIZER VACCINE 2020-09-19 00:00:00 Completed [facility] SARS-COV-2 COVID-19 PFIZER VACCINE 2020-09-19 00:00:00 Completed [facility] SARS-COV-2 COVID-19 PFIZER VACCINE 2020-09-19 00:00:00 Completed [facility] SARS-COV-2 COVID-19 PFIZER VACCINE 2020-09-19 00:00:00 Completed [facility] SARS-COV-2 COVID-19 PFIZER VACCINE 2020-09-19 00:00:00 Completed [facility] SARS-COV-2 COVID-19 PFIZER VACCINE 2020-09-19 00:00:00 Completed [facility] SARS-COV-2 COVID-19 PFIZER VACCINE 2020-09-19 00:00:00 Completed [facility] SARS-COV-2 COVID-19 PFIZER VACCINE 2020-09-19 00:00:00 Completed [facility] SARS-COV-2 COVID-19 PFIZER VACCINE 2020-09-19 00:00:00 Completed [facility] SARS-COV-2 COVID-19 PFIZER VACCINE 2020-09-19 00:00:00 Completed [facility] SARS-COV-2 COVID-19 PFIZER VACCINE 2020-09-19 00:00:00 Completed [facility] SARS-COV-2 COVID-19 PFIZER VACCINE 2020-09-19 00:00:00 Completed [facility] SARS-COV-2 COVID-19 PFIZER VACCINE 2020-09-19 00:00:00 Completed [facility] SARS-COV-2 COVID-19 PFIZER VACCINE 2020-09-19 00:00:00 Completed [facility] SARS-COV-2 COVID-19 PFIZER VACCINE 2020-09-19 00:00:00 Completed [facility] SARS-COV-2 COVID-19 PFIZER VACCINE 2020-09-19 00:00:00 Completed [facility] SARS-COV-2 COVID-19 PFIZER VACCINE 2020-09-19 00:00:00 Completed [facility] SARS-COV-2 COVID-19 PFIZER VACCINE 2020-09-19 00:00:00 Completed [facility] SARS-COV-2 COVID-19 PFIZER VACCINE 2020-09-19 00:00:00 Completed [facility] SARS-COV-2 COVID-19 PFIZER VACCINE 2020-09-19 00:00:00 Completed [facility] SARS-COV-2 COVID-19 PFIZER VACCINE 2020-09-19 00:00:00 Completed [facility] SARS-COV-2 COVID-19 PFIZER VACCINE 2020-09-19 00:00:00 Completed [facility] SARS-COV-2 COVID-19 PFIZER VACCINE 2020-09-19 00:00:00 Completed [facility] SARS-COV-2 COVID-19 PFIZER VACCINE 2020-09-19 00:00:00 Completed [facility] SARS-COV-2 COVID-19 PFIZER VACCINE 2020-09-19 00:00:00 Completed [facility] SARS-COV-2 COVID-19 PFIZER VACCINE 2020-09-19 00:00:00 Completed [facility] SARS-COV-2 COVID-19 PFIZER VACCINE 2020-09-19 00:00:00 Completed [facility] SARS-COV-2 COVID-19 PFIZER VACCINE 2020-09-19 00:00:00 Completed [facility] SARS-COV-2 COVID-19 PFIZER VACCINE 2020-09-19 00:00:00 Completed [facility] SARS-COV-2 COVID-19 PFIZER VACCINE 2020-09-19 00:00:00 Completed [facility] SARS-COV-2 COVID-19 PFIZER VACCINE 2020-09-19 00:00:00 Completed [facility] SARS-COV-2 COVID-19 PFIZER VACCINE 2020-09-19 00:00:00 Completed [facility] SARS-COV-2 COVID-19 PFIZER VACCINE 2020-09-19 00:00:00 Completed [facility] SARS-COV-2 COVID-19 PFIZER VACCINE 2020-09-19 00:00:00 Completed [facility] SARS-COV-2 COVID-19 PFIZER VACCINE 2020-09-19 00:00:00 Completed [facility] SARS-COV-2 COVID-19 PFIZER VACCINE 2020-08-29 00:00:00 Completed [facility] SARS-COV-2 COVID-19 PFIZER VACCINE 2020-08-29 00:00:00 Completed [facility] SARS-COV-2 COVID-19 PFIZER VACCINE 2020-08-29 00:00:00 Completed [facility] SARS-COV-2 COVID-19 PFIZER VACCINE 2020-08-29 00:00:00 Completed [facility] SARS-COV-2 COVID-19 PFIZER VACCINE 2020-08-29 00:00:00 Completed [facility] SARS-COV-2 COVID-19 PFIZER VACCINE 2020-08-29 00:00:00 Completed [facility] SARS-COV-2 COVID-19 PFIZER VACCINE 2020-08-29 00:00:00 Completed [facility] SARS-COV-2 COVID-19 PFIZER VACCINE 2020-08-29 00:00:00 Completed [facility] SARS-COV-2 COVID-19 PFIZER VACCINE 2020-08-29 00:00:00 Completed [facility] SARS-COV-2 COVID-19 PFIZER VACCINE 2020-08-29 00:00:00 Completed [facility] SARS-COV-2 COVID-19 PFIZER VACCINE 2020-08-29 00:00:00 Completed [facility] SARS-COV-2 COVID-19 PFIZER VACCINE 2020-08-29 00:00:00 Completed [facility] SARS-COV-2 COVID-19 PFIZER VACCINE 2020-08-29 00:00:00 Completed [facility] SARS-COV-2 COVID-19 PFIZER VACCINE 2020-08-29 00:00:00 Completed [facility] SARS-COV-2 COVID-19 PFIZER VACCINE 2020-08-29 00:00:00 Completed [facility] SARS-COV-2 COVID-19 PFIZER VACCINE 2020-08-29 00:00:00 Completed [facility] SARS-COV-2 COVID-19 PFIZER VACCINE 2020-08-29 00:00:00 Completed [facility] SARS-COV-2 COVID-19 PFIZER VACCINE 2020-08-29 00:00:00 Completed [facility] SARS-COV-2 COVID-19 PFIZER VACCINE 2020-08-29 00:00:00 Completed [facility] SARS-COV-2 COVID-19 PFIZER VACCINE 2020-08-29 00:00:00 Completed [facility] SARS-COV-2 COVID-19 PFIZER VACCINE 2020-08-29 00:00:00 Completed [facility] SARS-COV-2 COVID-19 PFIZER VACCINE 2020-08-29 00:00:00 Completed [facility] SARS-COV-2 COVID-19 PFIZER VACCINE 2020-08-29 00:00:00 Completed [facility] SARS-COV-2 COVID-19 PFIZER VACCINE 2020-08-29 00:00:00 Completed [facility] SARS-COV-2 COVID-19 PFIZER VACCINE 2020-08-29 00:00:00 [facility] [facility] SARS-COV-2 COVID-19 PFIZER VACCINE 2020-08-29 00:00:00 Completed [facility] SARS-COV-2 COVID-19 PFIZER VACCINE 2020-08-29 00:00:00 Completed [facility] SARS-COV-2 COVID-19 PFIZER VACCINE 2020-08-29 00:00:00 Completed [facility] SARS-COV-2 COVID-19 PFIZER VACCINE 2020-08-29 00:00:00 Completed [facility] SARS-COV-2 COVID-19 PFIZER VACCINE 2020-08-29 00:00:00 Completed [facility] SARS-COV-2 COVID-19 PFIZER VACCINE 2020-08-29 00:00:00 Completed [facility] SARS-COV-2 COVID-19 PFIZER VACCINE 2020-08-29 00:00:00 Completed [facility] SARS-COV-2 COVID-19 PFIZER VACCINE 2020-08-29 00:00:00 Completed [facility] SARS-COV-2 COVID-19 PFIZER VACCINE 2020-08-29 00:00:00 Completed [facility] SARS-COV-2 COVID-19 PFIZER VACCINE 2020-08-29 00:00:00 Completed [facility] SARS-COV-2 COVID-19 PFIZER VACCINE 2020-08-29 00:00:00 Completed [facility] SARS-COV-2 COVID-19 PFIZER VACCINE 2020-08-29 00:00:00 Completed [facility] SARS-COV-2 COVID-19 PFIZER VACCINE 2020-08-29 00:00:00 Completed [facility] SARS-COV-2 COVID-19 PFIZER VACCINE 2020-08-29 00:00:00 Completed [facility] SARS-COV-2 COVID-19 PFIZER VACCINE 2020-08-29 00:00:00 Completed [facility] SARS-COV-2 COVID-19 PFIZER VACCINE 2020-08-29 00:00:00 Completed [facility] SARS-COV-2 COVID-19 PFIZER VACCINE 2020-08-29 00:00:00 Completed [facility] SARS-COV-2 COVID-19 PFIZER VACCINE 2020-08-29 00:00:00 Completed [facility] SARS-COV-2 COVID-19 PFIZER VACCINE 2020-08-29 00:00:00 Completed [facility] SARS-COV-2 COVID-19 PFIZER VACCINE 2020-08-29 00:00:00 Completed [facility] SARS-COV-2 COVID-19 PFIZER VACCINE 2020-08-29 00:00:00 Completed [facility] SARS-COV-2 COVID-19 PFIZER VACCINE 2020-08-29 00:00:00 Completed [facility] SARS-COV-2 COVID-19 PFIZER VACCINE Unknown Completed [facility] Influenza Virus Vaccine Quad IM, Preserv and ABX Free 6 MO-64 YRS (FLUCELVAX) Unknown Completed [facility] TDAP Unknown Completed [facility] Meningococcal Polysaccharide (groups A, C, Y and W-135) conjugate vaccine (MCV4P) Unknown Completed [facility] SARS-COV-2 COVID-19 PFIZER VACCINE Unknown Completed [facility] Influenza Virus Vaccine Quad IM, Preserv and ABX Free 6 MO-64 YRS (FLUCELVAX) Unknown Completed [facility] TDAP Unknown Completed [facility] Meningococcal Polysaccharide (groups A, C, Y and W-135) conjugate vaccine (MCV4P) Unknown Completed [facility] SARS-COV-2 COVID-19 PFIZER VACCINE Unknown Completed [facility] Influenza Virus Vaccine Quad IM, Preserv and ABX Free 6 MO-64 YRS (FLUCELVAX) Unknown Completed [facility] TDAP Unknown Completed [facility] Meningococcal Polysaccharide (groups A, C, Y and W-135) conjugate vaccine (MCV4P) Unknown Completed [facility] SARS-COV-2 COVID-19 PFIZER VACCINE Unknown Completed [facility] Influenza Virus Vaccine Quad IM, Preserv and ABX Free 6 MO-64 YRS (FLUCELVAX) Unknown Completed [facility] TDAP Unknown Completed [facility] Meningococcal Polysaccharide (groups A, C, Y and W-135) conjugate vaccine (MCV4P) Unknown Completed [facility] SARS-COV-2 COVID-19 PFIZER VACCINE Unknown Completed [facility] Influenza Virus Vaccine Quad IM, Preserv and ABX Free 6 MO-64 YRS (FLUCELVAX) Unknown Completed [facility] TDAP Unknown Completed [facility] Meningococcal Polysaccharide (groups A, C, Y and W-135) conjugate vaccine (MCV4P) Unknown Completed [facility] SARS-COV-2 COVID-19 PFIZER VACCINE Unknown Completed [facility] Influenza Virus Vaccine Quad IM, Preserv and ABX Free 6 MO-64 YRS (FLUCELVAX) Unknown Completed [facility] TDAP Unknown Completed [facility] Meningococcal Polysaccharide (groups A, C, Y and W-135) conjugate vaccine (MCV4P) Unknown Completed [facility] SARS-COV-2 COVID-19 PFIZER VACCINE Unknown Completed [facility] Influenza Virus Vaccine Quad IM, Preserv and ABX Free 6 MO-64 YRS (FLUCELVAX) Unknown Completed [facility] TDAP Unknown Completed [facility] Meningococcal Polysaccharide (groups A, C, Y and W-135) conjugate vaccine (MCV4P) Unknown Completed [facility] SARS-COV-2 COVID-19 PFIZER VACCINE Unknown Completed [facility] Influenza Virus Vaccine Quad IM, Preserv and ABX Free 6 MO-64 YRS (FLUCELVAX) Unknown Completed [facility] TDAP Unknown Completed [facility] Meningococcal Polysaccharide (groups A, C, Y and W-135) conjugate vaccine (MCV4P) Unknown Completed [facility] SARS-COV-2 COVID-19 PFIZER VACCINE Unknown Completed [facility] Influenza Virus Vaccine Quad IM, Preserv and ABX Free 6 MO-64 YRS (FLUCELVAX) Unknown Completed [facility] TDAP Unknown Completed [facility] Meningococcal Polysaccharide (groups A, C, Y and W-135) conjugate vaccine (MCV4P) Unknown Completed [facility] TDAP Unknown Completed [facility] Meningococcal Polysaccharide (groups A, C, Y and W-135) conjugate vaccine (MCV4P) Unknown Completed [facility] SARS-COV-2 COVID-19 PFIZER VACCINE Unknown Completed [facility] Influenza Virus Vaccine Quad IM, Preserv and ABX Free 6 MO-64 YRS (FLUCELVAX) Unknown Completed [facility] SARS-COV-2 COVID-19 PFIZER VACCINE Unknown Completed [facility] Influenza Virus Vaccine Quad IM, Preserv and ABX Free 6 MO-64 YRS (FLUCELVAX) Unknown Completed [facility] TDAP Unknown Completed [facility] Meningococcal Polysaccharide (groups A, C, Y and W-135) conjugate vaccine (MCV4P) Unknown Completed [facility] SARS-COV-2 COVID-19 PFIZER VACCINE Unknown Completed [facility] Influenza Virus Vaccine Quad IM, Preserv and ABX Free 6 MO-64 YRS (FLUCELVAX) Unknown Completed [facility] TDAP Unknown Completed [facility] Meningococcal Polysaccharide (groups A, C, Y and W-135) conjugate vaccine (MCV4P) Unknown Completed [facility] SARS-COV-2 COVID-19 PFIZER VACCINE Unknown Completed [facility] Influenza Virus Vaccine Quad IM, Preserv and ABX Free 6 MO-64 YRS (FLUCELVAX) Unknown Completed [facility] TDAP Unknown Completed [facility] Meningococcal Polysaccharide (groups A, C, Y and W-135) conjugate vaccine (MCV4P) Unknown Completed [facility] SARS-COV-2 COVID-19 PFIZER VACCINE Unknown Completed [facility] Influenza Virus Vaccine Quad IM, Preserv and ABX Free 6 MO-64 YRS (FLUCELVAX) Unknown Completed [facility] TDAP Unknown Completed [facility] Meningococcal Polysaccharide (groups A, C, Y and W-135) conjugate vaccine (MCV4P) Unknown Completed [facility] SARS-COV-2 COVID-19 PFIZER VACCINE Unknown Completed [facility] Influenza Virus Vaccine Quad IM, Preserv and ABX Free 6 MO-64 YRS (FLUCELVAX) Unknown Completed [facility] TDAP Unknown Completed [facility] Meningococcal Polysaccharide (groups A, C, Y and W-135) conjugate vaccine (MCV4P) Unknown Completed [facility] SARS-COV-2 COVID-19 PFIZER VACCINE Unknown Completed [facility] Influenza Virus Vaccine Quad IM, Preserv and ABX Free 6 MO-64 YRS (FLUCELVAX) Unknown Completed [facility] TDAP Unknown Completed [facility] Meningococcal Polysaccharide (groups A, C, Y and W-135) conjugate vaccine (MCV4P) Unknown Completed [facility] SARS-COV-2 COVID-19 PFIZER VACCINE Unknown Completed [facility] Influenza Virus Vaccine Quad IM, Preserv and ABX Free 6 MO-64 YRS (FLUCELVAX) Unknown Completed [facility] TDAP Unknown Completed [facility] Meningococcal Polysaccharide (groups A, C, Y and W-135) conjugate vaccine (MCV4P) Unknown Completed [facility] SARS-COV-2 COVID-19 PFIZER VACCINE Unknown Completed [facility] Influenza Virus Vaccine Quad IM, Preserv and ABX Free 6 MO-64 YRS (FLUCELVAX) Unknown Completed [facility] TDAP Unknown Completed [facility] Meningococcal Polysaccharide (groups A, C, Y and W-135) conjugate vaccine (MCV4P) Unknown Completed [facility] SARS-COV-2 COVID-19 PFIZER VACCINE Unknown Completed [facility] Influenza Virus Vaccine Quad IM, Preserv and ABX Free 6 MO-64 YRS (FLUCELVAX) Unknown Completed [facility] TDAP Unknown Completed [facility] Meningococcal Polysaccharide (groups A, C, Y and W-135) conjugate vaccine (MCV4P) Unknown Completed [facility] SARS-COV-2 COVID-19 PFIZER VACCINE Unknown Completed [facility] Influenza Virus Vaccine Quad IM, Preserv and ABX Free 6 MO-64 YRS (FLUCELVAX) Unknown Completed [facility] TDAP Unknown Completed [facility] Meningococcal Polysaccharide (groups A, C, Y and W-135) conjugate vaccine (MCV4P) Unknown Completed [facility] SARS-COV-2 COVID-19 PFIZER VACCINE Unknown Completed [facility] Influenza Virus Vaccine Quad IM, Preserv and ABX Free 6 MO-64 YRS (FLUCELVAX) Unknown Completed [facility] TDAP Unknown Completed [facility] Meningococcal Polysaccharide (groups A, C, Y and W-135) conjugate vaccine (MCV4P) Unknown Completed [facility] SARS-COV-2 COVID-19 PFIZER VACCINE Unknown Completed [facility] Influenza Virus Vaccine Quad IM, Preserv and ABX Free 6 MO-64 YRS (FLUCELVAX) Unknown Completed [facility] TDAP Unknown Completed [facility] Meningococcal Polysaccharide (groups A, C, Y and W-135) conjugate vaccine (MCV4P) Unknown Completed [facility] SARS-COV-2 COVID-19 PFIZER VACCINE Unknown Completed [facility] Influenza Virus Vaccine Quad IM, Preserv and ABX Free 6 MO-64 YRS (FLUCELVAX) Unknown Completed [facility] TDAP Unknown Completed [facility] Meningococcal Polysaccharide (groups A, C, Y and W-135) conjugate vaccine (MCV4P) Unknown Completed [facility] SARS-COV-2 COVID-19 PFIZER VACCINE Unknown Completed [facility] Influenza Virus Vaccine Quad IM, Preserv and ABX Free 6 MO-64 YRS (FLUCELVAX) Unknown Completed [facility] TDAP Unknown Completed [facility] Meningococcal Polysaccharide (groups A, C, Y and W-135) conjugate vaccine (MCV4P) Unknown Completed [facility] TDAP Unknown Completed [facility] Meningococcal Polysaccharide (groups A, C, Y and W-135) conjugate vaccine (MCV4P) Unknown Completed [facility] SARS-COV-2 COVID-19 PFIZER VACCINE Unknown Completed [facility] Influenza Virus Vaccine Quad IM, Preserv and ABX Free 6 MO-64 YRS (FLUCELVAX) Unknown Completed [facility] TDAP Unknown Completed [facility] Meningococcal Polysaccharide (groups A, C, Y and W-135) conjugate vaccine (MCV4P) Unknown Completed [facility] SARS-COV-2 COVID-19 PFIZER VACCINE Unknown Completed [facility] Influenza Virus Vaccine Quad IM, Preserv and ABX Free 6 MO-64 YRS (FLUCELVAX) Unknown Completed [facility] SARS-COV-2 COVID-19 PFIZER VACCINE Unknown Completed [facility] Influenza Virus Vaccine Quad IM, Preserv and ABX Free 6 MO-64 YRS (FLUCELVAX) Unknown Completed [facility] TDAP Unknown Completed [facility] Meningococcal Polysaccharide (groups A, C, Y and W-135) conjugate vaccine (MCV4P) Unknown Completed [facility] SARS-COV-2 COVID-19 PFIZER VACCINE Unknown Completed [facility] Influenza Virus Vaccine Quad IM, Preserv and ABX Free 6 MO-64 YRS (FLUCELVAX) Unknown Completed [facility] TDAP Unknown Completed [facility] Meningococcal Polysaccharide (groups A, C, Y and W-135) conjugate vaccine (MCV4P) Unknown Completed [facility] SARS-COV-2 COVID-19 PFIZER VACCINE Unknown Completed [facility] Influenza Virus Vaccine Quad IM, Preserv and ABX Free 6 MO-64 YRS (FLUCELVAX) Unknown Completed [facility] TDAP Unknown Completed [facility] Meningococcal Polysaccharide (groups A, C, Y and W-135) conjugate vaccine (MCV4P) Unknown Completed [facility] SARS-COV-2 COVID-19 PFIZER VACCINE Unknown Completed [facility] Influenza Virus Vaccine Quad IM, Preserv and ABX Free 6 MO-64 YRS (FLUCELVAX) Unknown Completed [facility] TDAP Unknown Completed [facility] Meningococcal Polysaccharide (groups A, C, Y and W-135) conjugate vaccine (MCV4P) Unknown Completed [facility] SARS-COV-2 COVID-19 PFIZER VACCINE Unknown Completed [facility] Influenza Virus Vaccine Quad IM, Preserv and ABX Free 6 MO-64 YRS (FLUCELVAX) Unknown Completed [facility] TDAP Unknown Completed [facility] Meningococcal Polysaccharide (groups A, C, Y and W-135) conjugate vaccine (MCV4P) Unknown Completed [facility] TDAP Unknown Completed [facility] Meningococcal Polysaccharide (groups A, C, Y and W-135) conjugate vaccine (MCV4P) Unknown Completed [facility] SARS-COV-2 COVID-19 PFIZER VACCINE Unknown Completed [facility] Influenza Virus Vaccine Quad IM, Preserv and ABX Free 6 MO-64 YRS (FLUCELVAX) Unknown Completed [facility] TDAP Unknown Completed [facility] Meningococcal Polysaccharide (groups A, C, Y and W-135) conjugate vaccine (MCV4P) Unknown Completed [facility] SARS-COV-2 COVID-19 PFIZER VACCINE Unknown Completed [facility] Influenza Virus Vaccine Quad IM, Preserv and ABX Free 6 MO-64 YRS (FLUCELVAX) Unknown Completed [facility] SARS-COV-2 COVID-19 PFIZER VACCINE Unknown Completed [facility] Influenza Virus Vaccine Quad IM, Preserv and ABX Free 6 MO-64 YRS (FLUCELVAX) Unknown Completed [facility] TDAP Unknown Completed [facility] Meningococcal Polysaccharide (groups A, C, Y and W-135) conjugate vaccine (MCV4P) Unknown Completed [facility] SARS-COV-2 COVID-19 PFIZER VACCINE Unknown Completed [facility] Influenza Virus Vaccine Quad IM, Preserv and ABX Free 6 MO-64 YRS (FLUCELVAX) Unknown Completed [facility] TDAP Unknown Completed [facility] Meningococcal Polysaccharide (groups A, C, Y and W-135) conjugate vaccine (MCV4P) Unknown Completed [facility] SARS-COV-2 COVID-19 PFIZER VACCINE Unknown Completed [facility] Influenza Virus Vaccine Quad IM, Preserv and ABX Free 6 MO-64 YRS (FLUCELVAX) Unknown Completed [facility] TDAP Unknown Completed [facility] Meningococcal Polysaccharide (groups A, C, Y and W-135) conjugate vaccine (MCV4P) Unknown Completed [facility] SARS-COV-2 COVID-19 PFIZER VACCINE Unknown Completed [facility] Influenza Virus Vaccine Quad IM, Preserv and ABX Free 6 MO-64 YRS (FLUCELVAX) Unknown Completed [facility] TDAP Unknown Completed [facility] Meningococcal Polysaccharide (groups A, C, Y and W-135) conjugate vaccine (MCV4P) Unknown Completed [facility] TDAP Unknown Completed [facility] Meningococcal Polysaccharide (groups A, C, Y and W-135) conjugate vaccine (MCV4P) Unknown Completed [facility] SARS-COV-2 COVID-19 PFIZER VACCINE Unknown Completed [facility] Influenza Virus Vaccine Quad IM, Preserv and ABX Free 6 MO-64 YRS (FLUCELVAX) Unknown Completed [facility] SARS-COV-2 COVID-19 PFIZER VACCINE Unknown Completed [facility] Influenza Virus Vaccine Quad IM, Preserv and ABX Free 6 MO-64 YRS (FLUCELVAX) Unknown Completed [facility] TDAP Unknown Completed [facility] Meningococcal Polysaccharide (groups A, C, Y and W-135) conjugate vaccine (MCV4P) Unknown Completed [facility] TDAP Unknown Completed [facility] Meningococcal Polysaccharide (groups A, C, Y and W-135) conjugate vaccine (MCV4P) Unknown Completed [facility] SARS-COV-2 COVID-19 PFIZER VACCINE Unknown Completed [facility] Influenza Virus Vaccine Quad IM, Preserv and ABX Free 6 MO-64 YRS (FLUCELVAX) Unknown Completed [facility] SARS-COV-2 COVID-19 PFIZER VACCINE Unknown Completed [facility] Influenza Virus Vaccine Quad IM, Preserv and ABX Free 6 MO-64 YRS (FLUCELVAX) Unknown Completed [facility] TDAP Unknown Completed [facility] Meningococcal Polysaccharide (groups A, C, Y and W-135) conjugate vaccine (MCV4P) Unknown Completed [facility] SARS-COV-2 COVID-19 PFIZER VACCINE Unknown Completed [facility] Influenza Virus Vaccine Quad IM, Preserv and ABX Free 6 MO-64 YRS (FLUCELVAX) Unknown Completed [facility] TDAP Unknown Completed [facility] Meningococcal Polysaccharide (groups A, C, Y and W-135) conjugate vaccine (MCV4P) Unknown Completed [facility] SARS-COV-2 COVID-19 PFIZER VACCINE Unknown Completed [facility] Influenza Virus Vaccine Quad IM, Preserv and ABX Free 6 MO-64 YRS (FLUCELVAX) Unknown Completed [facility] TDAP Unknown Completed [facility] Meningococcal Polysaccharide (groups A, C, Y and W-135) conjugate vaccine (MCV4P) Unknown Completed [facility] SARS-COV-2 COVID-19 PFIZER VACCINE Unknown Completed [facility] Influenza Virus Vaccine Quad IM, Preserv and ABX Free 6 MO-64 YRS (FLUCELVAX) Unknown Completed [facility] TDAP Unknown Completed [facility] Meningococcal Polysaccharide (groups A, C, Y and W-135) conjugate vaccine (MCV4P) Unknown Completed [facility] SARS-COV-2 COVID-19 PFIZER VACCINE Unknown Completed [facility] Influenza Virus Vaccine Quad IM, Preserv and ABX Free 6 MO-64 YRS (FLUCELVAX) Unknown Completed [facility] TDAP Unknown Completed [facility] Meningococcal Polysaccharide (groups A, C, Y and W-135) conjugate vaccine (MCV4P) Unknown Completed [facility] SARS-COV-2 COVID-19 PFIZER VACCINE Unknown Completed [facility] Influenza Virus Vaccine Quad IM, Preserv and ABX Free 6 MO-64 YRS (FLUCELVAX) Unknown Completed [facility] TDAP Unknown Completed [facility] Meningococcal Polysaccharide (groups A, C, Y and W-135) conjugate vaccine (MCV4P) Unknown Completed [facility] SARS-COV-2 COVID-19 PFIZER VACCINE Unknown Completed [facility] Influenza Virus Vaccine Quad IM, Preserv and ABX Free 6 MO-64 YRS (FLUCELVAX) Unknown Completed [facility] TDAP Unknown Completed [facility] Meningococcal Polysaccharide (groups A, C, Y and W-135) conjugate vaccine (MCV4P) Unknown Completed [facility] SARS-COV-2 COVID-19 PFIZER VACCINE Unknown Completed [facility] Influenza Virus Vaccine Quad IM, Preserv and ABX Free 6 MO-64 YRS (FLUCELVAX) Unknown Completed [facility] TDAP Unknown Completed [facility] Meningococcal Polysaccharide (groups A, C, Y and W-135) conjugate vaccine (MCV4P) Unknown Completed [facility] TDAP Unknown Completed [facility] Meningococcal Polysaccharide (groups A, C, Y and W-135) conjugate vaccine (MCV4P) Unknown Completed [facility] SARS-COV-2 COVID-19 PFIZER VACCINE Unknown Completed [facility] Influenza Virus Vaccine Quad IM, Preserv and ABX Free 6 MO-64 YRS (FLUCELVAX) Unknown Completed [facility] SARS-COV-2 COVID-19 PFIZER VACCINE Unknown Completed [facility] Influenza Virus Vaccine Quad IM, Preserv and ABX Free 6 MO-64 YRS (FLUCELVAX) Unknown Completed [facility] TDAP Unknown Completed [facility] Meningococcal Polysaccharide (groups A, C, Y and W-135) conjugate vaccine (MCV4P) Unknown Completed [facility] SARS-COV-2 COVID-19 PFIZER VACCINE Unknown Completed [facility] Influenza Virus Vaccine Quad IM, Preserv and ABX Free 6 MO-64 YRS (FLUCELVAX) Unknown Completed [facility] TDAP Unknown Completed [facility] Meningococcal Polysaccharide (groups A, C, Y and W-135) conjugate vaccine (MCV4P) Unknown Completed [facility] SARS-COV-2 COVID-19 PFIZER VACCINE Unknown Completed [facility] Influenza Virus Vaccine Quad IM, Preserv and ABX Free 6 MO-64 YRS (FLUCELVAX) Unknown Completed [facility] TDAP Unknown Completed [facility] Meningococcal Polysaccharide (groups A, C, Y and W-135) conjugate vaccine (MCV4P) Unknown Completed [facility] SARS-COV-2 COVID-19 PFIZER VACCINE Unknown Completed [facility] Influenza Virus Vaccine Quad IM, Preserv and ABX Free 6 MO-64 YRS (FLUCELVAX) Unknown Completed [facility] TDAP Unknown Completed [facility] Meningococcal Polysaccharide (groups A, C, Y and W-135) conjugate vaccine (MCV4P) Unknown Completed [facility] SARS-COV-2 COVID-19 PFIZER VACCINE Unknown Completed [facility] Influenza Virus Vaccine Quad IM, Preserv and ABX Free 6 MO-64 YRS (FLUCELVAX) Unknown Completed [facility] TDAP Unknown Completed [facility] Meningococcal Polysaccharide (groups A, C, Y and W-135) conjugate vaccine (MCV4P) Unknown Completed [facility] SARS-COV-2 COVID-19 PFIZER VACCINE Unknown Completed [facility] Influenza Virus Vaccine Quad IM, Preserv and ABX Free 6 MO-64 YRS (FLUCELVAX) Unknown Completed [facility] TDAP Unknown Completed [facility] Meningococcal Polysaccharide (groups A, C, Y and W-135) conjugate vaccine (MCV4P) Unknown Completed [facility] SARS-COV-2 COVID-19 PFIZER VACCINE Unknown Completed [facility] Influenza Virus Vaccine Quad IM, Preserv and ABX Free 6 MO-64 YRS (FLUCELVAX) Unknown Completed [facility] TDAP Unknown Completed [facility] Meningococcal Polysaccharide (groups A, C, Y and W-135) conjugate vaccine (MCV4P) Unknown Completed [facility] SARS-COV-2 COVID-19 PFIZER VACCINE Unknown Completed [facility] Influenza Virus Vaccine Quad IM, Preserv and ABX Free 6 MO-64 YRS (FLUCELVAX) Unknown Completed [facility] TDAP Unknown Completed [facility] Meningococcal Polysaccharide (groups A, C, Y and W-135) conjugate vaccine (MCV4P) Unknown Completed [facility] SARS-COV-2 COVID-19 PFIZER VACCINE Unknown Completed [facility] Influenza Virus Vaccine Quad IM, Preserv and ABX Free 6 MO-64 YRS (FLUCELVAX) Unknown Completed [facility] TDAP Unknown Completed [facility] Meningococcal Polysaccharide (groups A, C, Y and W-135) conjugate vaccine (MCV4P) Unknown Completed [facility] SARS-COV-2 COVID-19 PFIZER VACCINE Unknown Completed [facility] Influenza Virus Vaccine Quad IM, Preserv and ABX Free 6 MO-64 YRS (FLUCELVAX) Unknown Completed [facility] TDAP Unknown Completed [facility] Meningococcal Polysaccharide (groups A, C, Y and W-135) conjugate vaccine (MCV4P) Unknown Completed [facility] SARS-COV-2 COVID-19 PFIZER VACCINE Unknown Completed [facility] Influenza Virus Vaccine Quad IM, Preserv and ABX Free 6 MO-64 YRS (FLUCELVAX) Unknown Completed [facility] TDAP Unknown Completed [facility] Meningococcal Polysaccharide (groups A, C, Y and W-135) conjugate vaccine (MCV4P) Unknown Completed [facility] SARS-COV-2 COVID-19 PFIZER VACCINE Unknown Completed [facility] Influenza Virus Vaccine Quad IM, Preserv and ABX Free 6 MO-64 YRS (FLUCELVAX) Unknown Completed [facility] TDAP Unknown Completed [facility] Meningococcal Polysaccharide (groups A, C, Y and W-135) conjugate vaccine (MCV4P) Unknown Completed [facility] SARS-COV-2 COVID-19 PFIZER VACCINE Unknown Completed [facility] Influenza Virus Vaccine Quad IM, Preserv and ABX Free 6 MO-64 YRS (FLUCELVAX) Unknown Completed [facility] TDAP Unknown Completed [facility] Meningococcal Polysaccharide (groups A, C, Y and W-135) conjugate vaccine (MCV4P) Unknown Completed [facility] SARS-COV-2 COVID-19 PFIZER VACCINE Unknown Completed [facility] Influenza Virus Vaccine Quad IM, Preserv and ABX Free 6 MO-64 YRS (FLUCELVAX) Unknown Completed [facility] TDAP Unknown Completed [facility] Meningococcal Polysaccharide (groups A, C, Y and W-135) conjugate vaccine (MCV4P) Unknown Completed [facility] SARS-COV-2 COVID-19 PFIZER VACCINE Unknown Completed [facility] Influenza Virus Vaccine Quad IM, Preserv and ABX Free 6 MO-64 YRS (FLUCELVAX) Unknown Completed [facility] TDAP Unknown Completed [facility] Meningococcal Polysaccharide (groups A, C, Y and W-135) conjugate vaccine (MCV4P) Unknown Completed [facility] SARS-COV-2 COVID-19 PFIZER VACCINE Unknown Completed [facility] Influenza Virus Vaccine Quad IM, Preserv and ABX Free 6 MO-64 YRS (FLUCELVAX) Unknown Completed [facility] TDAP Unknown Completed [facility] Meningococcal Polysaccharide (groups A, C, Y and W-135) conjugate vaccine (MCV4P) Unknown Completed [facility] SARS-COV-2 COVID-19 PFIZER VACCINE Unknown Completed [facility] Influenza Virus Vaccine Quad IM, Preserv and ABX Free 6 MO-64 YRS (FLUCELVAX) Unknown Completed [facility] TDAP Unknown Completed [facility] Meningococcal Polysaccharide (groups A, C, Y and W-135) conjugate vaccine (MCV4P) Unknown Completed [facility] SARS-COV-2 COVID-19 PFIZER VACCINE Unknown Completed [facility] Influenza Virus Vaccine Quad IM, Preserv and ABX Free 6 MO-64 YRS (FLUCELVAX) Unknown Completed [facility] TDAP Unknown Completed [facility] Meningococcal Polysaccharide (groups A, C, Y and W-135) conjugate vaccine (MCV4P) Unknown Completed [facility] SARS-COV-2 COVID-19 PFIZER VACCINE Unknown Completed [facility] Influenza Virus Vaccine Quad IM, Preserv and ABX Free 6 MO-64 YRS (FLUCELVAX) Unknown Completed [facility] TDAP Unknown Completed [facility] Meningococcal Polysaccharide (groups A, C, Y and W-135) conjugate vaccine (MCV4P) Unknown Completed [facility] SARS-COV-2 COVID-19 PFIZER VACCINE Unknown Completed [facility] Influenza Virus Vaccine Quad IM, Preserv and ABX Free 6 MO-64 YRS (FLUCELVAX) Unknown Completed [facility] TDAP Unknown Completed [facility] Meningococcal Polysaccharide (groups A, C, Y and W-135) conjugate vaccine (MCV4P) Unknown Completed [facility] SARS-COV-2 COVID-19 PFIZER VACCINE Unknown Completed [facility] Influenza Virus Vaccine Quad IM, Preserv and ABX Free 6 MO-64 YRS (FLUCELVAX) Unknown Completed [facility] TDAP Unknown Completed [facility] Meningococcal Polysaccharide (groups A, C, Y and W-135) conjugate vaccine (MCV4P) Unknown Completed [facility] SARS-COV-2 COVID-19 PFIZER VACCINE Unknown Completed [facility] Influenza Virus Vaccine Quad IM, Preserv and ABX Free 6 MO-64 YRS (FLUCELVAX) Unknown Completed [facility] TDAP Unknown Completed [facility] Meningococcal Polysaccharide (groups A, C, Y and W-135) conjugate vaccine (MCV4P) Unknown Completed [facility] SARS-COV-2 COVID-19 PFIZER VACCINE Unknown Completed [facility] Influenza Virus Vaccine Quad IM, Preserv and ABX Free 6 MO-64 YRS (FLUCELVAX) Unknown Completed [facility] TDAP Unknown Completed [facility] Meningococcal Polysaccharide (groups A, C, Y and W-135) conjugate vaccine (MCV4P) Unknown Completed [facility] Flu Injectable MDCK Pres-Free (FLUCELVAX) Unknown Completed [facility] SARS-COV-2 COVID-19 PFIZER VACCINE Unknown Completed [facility] Influenza Virus Vaccine Quad IM, Preserv and ABX Free 6 MO-64 YRS (FLUCELVAX) Unknown Completed [facility] TDAP Unknown Completed [facility] Meningococcal Polysaccharide (groups A, C, Y and W-135) conjugate vaccine (MCV4P) Unknown Completed [facility] Vital Signs Vital Name Observation Time Observation Value Comments S ource Systolic blood pressure 2024-04-05 16:23:00 124 mm[Hg] [facility] Diastolic blood pressure 2024-04-05 16:23:00 73 mm[Hg] [facility] Heart rate 2024-04-05 16:23:00 103 /min [facility] Body temperature 2024-04-05 16:23:00 36.28 Janet [facility] Body height 2024-04-05 16:23:00 152.4 cm [facility] Body weight 2024-04-05 16:23:00 96.662 kg [facility] BMI 2024-04-05 16:23:00 41.62 kg/m2 [facility] Oxygen saturation in Arterial blood by Pulse oximetry 2024-04-05 16:23:00 95 /min [facility] Systolic blood pressure 2024-03-25 21:33:00 126 mm[Hg] [facility] Diastolic blood pressure 2024-03-25 21:33:00 81 mm[Hg] [facility] Heart rate 2024-03-25 21:33:00 96 /min [facility] Respiratory rate 2024-03-25 21:33:00 18 /min [facility] Body height 2024-03-25 21:33:00 152.4 cm [facility] Body weight 2024-03-25 21:33:00 98.022 kg [facility] BMI 2024-03-25 21:33:00 42.20 kg/m2 [facility] Oxygen saturation in Arterial blood by Pulse oximetry 2024-03-25 21:33:00 98 /min [facility] Systolic blood pressure 2024-03-23 18:39:00 114 mm[Hg] [facility] Diastolic blood pressure 2024-03-23 18:39:00 69 mm[Hg] [facility] Heart rate 2024-03-23 18:39:00 79 /min [facility] Body height 2024-03-23 18:39:00 152.4 cm [facility] Body weight 2024-03-23 18:39:00 96.163 kg [facility] BMI 2024-03-23 18:39:00 41.40 kg/m2 [facility] Oxygen saturation in Arterial blood by Pulse oximetry 2024-03-23 18:39:00 97 /min [facility] Systolic blood pressure 2024-02-18 14:23:00 111 mm[Hg] [facility] Diastolic blood pressure 2024-02-18 14:23:00 77 mm[Hg] [facility] Heart rate 2024-02-18 14:23:00 90 /min [facility] Body temperature 2024-02-18 14:23:00 36.72 Janet [facility] Respiratory rate 2024-02-18 14:23:00 18 /min [facility] Body height 2024-02-18 14:23:00 152.4 cm [facility] Body weight 2024-02-18 14:23:00 92.987 kg [facility] BMI 2024-02-18 14:23:00 40.04 kg/m2 [facility] Oxygen saturation in Arterial blood by Pulse oximetry 2024-02-18 14:23:00 98 /min [facility] Systolic blood pressure 2024-01-26 21:06:00 104 mm[Hg] [facility] Diastolic blood pressure 2024-01-26 21:06:00 77 mm[Hg] [facility] Heart rate 2024-01-26 21:06:00 91 /[facility] Respiratory rate 2024-01-26 21:06:00 18 /min [facility] Body height 2024-01-26 21:06:00 152.4 cm [facility] Body weight 2024-01-26 21:06:00 89.812 kg [facility] BMI 2024-01-26 21:06:00 38.67 kg/m2 [facility] Systolic blood pressure 2024-01-14 17:47:00 108 mm[Hg] [facility] Diastolic blood pressure 2024-01-14 17:47:00 72 mm[Hg] [facility] Heart rate 2024-01-14 17:45:00 97 /min [facility] Body temperature 2024-01-14 17:45:00 36.94 Janet [facility] Body height 2024-01-14 17:45:00 152.4 cm [facility] Body weight 2024-01-14 17:45:00 90.719 kg [facility] BMI 2024-01-14 17:45:00 39.06 kg/m2 [facility] Oxygen saturation in Arterial blood by Pulse oximetry 2024-01-14 17:45:00 97 /min [facility] Systolic blood pressure 2023-12-25 18:20:00 111 mm[Hg] [facility] Diastolic blood pressure 2023-12-25 18:20:00 66 mm[Hg] [facility] Heart rate 2023-12-25 18:20:00 87 /min [facility] Body height 2023-12-25 18:20:00 152.4 cm [facility] Body weight 2023-12-25 18:20:00 89.449 kg [facility] BMI 2023-12-25 18:20:00 38.51 kg/m2 [facility] Oxygen saturation in Arterial blood by Pulse oximetry 2023-12-25 18:20:00 100 /min [facility] Systolic blood pressure 2023-12-22 15:25:00 107 mm[Hg] [facility] Diastolic blood pressure 2023-12-22 15:25:00 76 mm[Hg] [facility] Heart rate 2023-12-22 15:25:00 92 /min [facility] Respiratory rate 2023-12-22 15:25:00 16 /min [facility] Body height 2023-12-22 15:25:00 152.4 cm [facility] Body weight 2023-12-22 15:25:00 89.767 kg [facility] BMI 2023-12-22 15:25:00 38.65 kg/m2 [facility] Oxygen saturation in Arterial blood by Pulse oximetry 2023-12-22 15:25:00 97 /min [facility] Systolic blood pressure 2023-12-19 12:00:00 109 mm[Hg] [facility] Diastolic blood pressure 2023-12-19 12:00:00 74 mm[Hg] [facility] Heart rate 2023-12-19 12:00:00 84 /min [facility] Body temperature 2023-12-19 12:00:00 36.72 Janet [facility] Respiratory rate 2023-12-19 12:00:00 16 /min [facility] Oxygen saturation in Arterial blood by Pulse oximetry 2023-12-19 12:00:00 96 /min [facility] Body height 2023-12-19 08:35:00 152.4 cm [facility] weight 2023-12-19 08:35:00 90.084 kg [facility] BMI 2023-12-19 08:35:00 38.79 kg/m2 [facility] Heart rate 2023-12-16 15:56:00 106 /min [facility] Systolic blood pressure 2023-12-16 15:30:00 121 mm[Hg] [facility] Diastolic blood pressure 2023-12-16 15:30:00 86 mm[Hg] [facility] Body temperature 2023-12-16 15:30:00 37 Janet [facility] Respiratory rate 2023-12-16 15:30:00 20 /min [facility] Body height 2023-12-16 15:30:00 152.4 cm [facility] Body weight 2023-12-16 15:30:00 88.905 kg [facility] BMI 2023-12-16 15:30:00 38.28 kg/m2 [facility] Oxygen saturation in Arterial blood by Pulse oximetry 2023-12-16 15:30:00 97 /min [facility] Systolic blood pressure 2023-12-11 16:56:00 127 mm[Hg] [facility] Diastolic blood pressure 2023-12-11 16:56:00 85 mm[Hg] [facility] Heart rate 2023-12-11 16:56:00 111 /min [facility] Body temperature 2023-12-11 16:56:00 36.83 Janet [facility] Oxygen saturation in Arterial blood by Pulse oximetry 2023-12-11 16:56:00 93 /min [facility] Respiratory rate 2023-12-11 08:20:00 16 /min [facility] Body height 2023-12-09 14:30:00 152.4 cm [facility] Body weight 2023-12-09 14:30:00 93.2 kg [facility] BMI 2023-12-09 14:30:00 40.13 kg/m2 [facility] Systolic blood pressure 2023-12-09 14:30:00 138 mm[Hg] [facility] Diastolic blood pressure 2023-12-09 14:30:00 82 mm[Hg] [facility] Heart rate 2023-12-09 14:30:00 101 /min [facility] Body temperature 2023-12-09 14:30:00 37.33 Janet [facility] Respiratory rate 2023-12-09 14:30:00 16 /min [facility] Body height 2023-12-09 14:30:00 152.4 cm [facility] Body weight 2023-12-09 14:30:00 93.2 kg [facility] BMI 2023-12-09 14:30:00 40.13 kg/m2 [facility] Oxygen saturation in Arterial blood by Pulse oximetry 2023-12-09 14:30:00 97 /min [facility] Systolic blood pressure 2023-12-07 20:55:00 113 mm[Hg] [facility] Diastolic blood pressure 2023-12-07 20:55:00 72 mm[Hg] [facility] Heart rate 2023-12-07 20:55:00 97 /min [facility] Body height 2023-12-07 20:55:00 152.4 cm [facility] Body weight 2023-12-07 20:55:00 94.167 kg [facility] BMI 2023-12-07 20:55:00 40.54 kg/m2 [facility] Oxygen saturation in Arterial blood by Pulse oximetry 2023-12-07 20:55:00 98 /min [facility] Systolic blood pressure 2023-12-04 18:38:00 122 mm[Hg] [facility] Diastolic blood pressure 2023-12-04 18:38:00 86 mm[Hg] [facility] Heart rate 2023-12-04 18:38:00 101 /min [facility] Body temperature 2023-12-04 18:38:00 36 Janet [facility] Respiratory rate 2023-12-04 18:38:00 18 /min [facility] Body height 2023-12-04 18:38:00 152.4 cm [facility] Body weight 2023-12-04 18:38:00 93.169 kg [facility] BMI 2023-12-04 18:38:00 40.11 kg/m2 [facility] Oxygen saturation in Arterial blood by Pulse oximetry 2023-12-04 18:38:00 96 /min [facility] Systolic blood pressure 2023-11-20 20:27:00 129 mm[Hg] [facility] Diastolic blood pressure 2023-11-20 20:27:00 82 mm[Hg] [facility] Heart rate 2023-11-20 20:27:00 97 /min [facility] Body temperature 2023-11-20 20:27:00 36.11 Janet [facility] Body height 2023-11-20 20:27:00 152.4 cm [facility] Body weight 2023-11-20 20:27:00 93.441 kg [facility] BMI 2023-11-20 20:27:00 40.23 kg/m2 [facility] Systolic blood pressure 2023-11-12 15:30:00 114 mm[Hg] [facility] Diastolic blood pressure 2023-11-12 15:30:00 73 mm[Hg] [facility] Heart rate 2023-11-12 15:30:00 90 /min [facility] Respiratory rate 2023-11-12 15:30:00 17 /min [facility] Oxygen saturation in Arterial blood by Pulse oximetry 2023-11-12 15:30:00 96 /min [facility] Body temperature 2023-11-12 14:35:00 36.28 Janet [facility] Body height 2023-11-12 13:08:00 152.4 cm [facility] Body weight 2023-11-12 13:08:00 92.9 kg [facility] BMI 2023-11-12 13:08:00 40.00 kg/m2 [facility] Systolic blood pressure 2023-11-12 15:30:00 114 mm[Hg] [facility] Diastolic blood pressure 2023-11-12 15:30:00 73 mm[Hg] [facility] Heart rate 2023-11-12 15:30:00 90 /min [facility] Respiratory rate 2023-11-12 15:30:00 17 /min [facility] Oxygen saturation in Arterial blood by Pulse oximetry 2023-11-12 15:30:00 96 /min [facility] Body temperature 2023-11-12 14:35:00 36.28 Janet [facility] Body height 2023-11-12 13:08:00 152.4 cm [facility] Body weight 2023-11-12 13:08:00 92.9 kg [facility] BMI 2023-11-12 13:08:00 40.00 kg/m2 [facility] Systolic blood pressure 2023 15:50:00 111 mm[Hg] [facility] Diastolic blood pressure 2023 15:50:00 78 mm[Hg] [facility] Heart rate 2023 15:50:00 99 /min [facility] Body temperature 2023 15:50:00 36.72 Janet [facility] Respiratory rate 2023 15:50:00 18 /min [facility] Body height 2023 15:50:00 152.4 cm [facility] Body weight 2023 15:50:00 93.26 kg [facility] BMI 2023 15:50:00 40.15 kg/m2 [facility] Systolic blood pressure 2023-10-23 18:27:00 114 mm[Hg] [facility] Diastolic blood pressure 2023-10-23 18:27:00 76 mm[Hg] [facility] Heart rate 2023-10-23 18:27:00 86 /min [facility] Body temperature 2023-10-23 18:27:00 36.28 Janet [facility] Respiratory rate 2023-10-23 18:27:00 18 /min [facility] Body height 2023-10-23 18:27:00 152.4 cm [facility] Body weight 2023-10-23 18:27:00 93.895 kg [facility] BMI 2023-10-23 18:27:00 40.43 kg/m2 [facility] Oxygen saturation in Arterial blood by Pulse oximetry 2023-10-23 18:27:00 97 /min [facility] Systolic blood pressure 2023-10-21 16:03:00 113 mm[Hg] [facility] Diastolic blood pressure 2023-10-21 16:03:00 78 mm[Hg] [facility] Heart rate 2023-10-21 16:03:00 99 /min [facility] Body height 2023-10-21 16:03:00 152.4 cm [facility] Body weight 2023-10-21 16:03:00 92.942 kg [facility] BMI 2023-10-21 16:03:00 40.02 kg/m2 [facility] Oxygen saturation in Arterial blood by Pulse oximetry 2023-10-21 16:03:00 96 /min [facility] Systolic blood pressure 2023-10-05 15:37:00 120 mm[Hg] [facility] Diastolic blood pressure 2023-10-05 15:37:00 77 mm[Hg] [facility] Heart rate 2023-10-05 15:37:00 102 /min [facility] Respiratory rate 2023-10-05 15:37:00 18 /min [facility] Body height 2023-10-05 15:37:00 152.4 cm [facility] Body weight 2023-10-05 15:37:00 92.67 kg [facility] BMI 2023-10-05 15:37:00 39.90 kg/m2 [facility] Oxygen saturation in Arterial blood by Pulse oximetry 2023-10-05 15:37:00 96 /min [facility] Systolic blood pressure 2023-09-22 14:47:00 114 mm[Hg] [facility] Diastolic blood pressure 2023-09-22 14:47:00 80 mm[Hg] [facility] Heart rate 2023-09-22 14:47:00 100 /min [facility] Respiratory rate 2023-09-22 14:47:00 18 /min [facility] Body height 2023-09-22 14:47:00 152.4 cm [facility] Body weight 2023-09-22 14:47:00 91.944 kg [facility] BMI 2023-09-22 14:47:00 39.59 kg/m2 [facility] Oxygen saturation in Arterial blood by Pulse oximetry 2023-09-22 14:47:00 93 /min [facility] Systolic blood pressure 2023-08-25 14:34:00 123 mm[Hg] [facility] Diastolic blood pressure 2023-08-25 14:34:00 80 mm[Hg] [facility] Heart rate 2023-08-25 14:34:00 105 /min [facility] Body height 2023-08-25 14:34:00 152.4 cm [facility] Body weight 2023-08-25 14:34:00 92.897 kg [facility] BMI 2023-08-25 14:34:00 40.00 kg/m2 [facility] Oxygen saturation in Arterial blood by Pulse oximetry 2023-08-25 14:34:00 97 /min [facility] Systolic blood pressure 2023-08-10 14:13:00 108 mm[Hg] [facility] Diastolic blood pressure 2023-08-10 14:13:00 65 mm[Hg] [facility] Heart rate 2023-08-10 14:13:00 104 /min [facility] Respiratory rate 2023-08-10 14:13:00 18 /min [facility] Body height 2023-08-10 14:13:00 152.4 cm [facility] Body weight 2023-08-10 14:13:00 91.627 kg [facility] BMI 2023-08-10 14:13:00 39.45 kg/m2 [facility] Systolic blood pressure 2023-08-04 16:45:00 124 mm[Hg] [facility] Diastolic blood pressure 2023-08-04 16:45:00 84 mm[Hg] [facility] Heart rate 2023-08-04 16:45:00 97 /min [facility] Respiratory rate 2023-08-04 16:45:00 18 /min [facility] Body height 2023-08-04 16:45:00 152.4 cm [facility] Body weight 2023-08-04 16:45:00 91.23 kg [facility] BMI 2023-08-04 16:45:00 39.28 kg/m2 [facility] Oxygen saturation in Arterial blood by Pulse oximetry 2023-08-04 16:45:00 99 /min [facility] Systolic blood pressure 2023-07-24 19:18:00 107 mm[Hg] [facility] Diastolic blood pressure 2023-07-24 19:18:00 72 mm[Hg] [facility] Heart rate 2023-07-24 19:18:00 109 /min [facility] Body temperature 2023-07-24 19:18:00 36.72 Janet [facility] Body height 2023-07-24 19:18:00 152.4 cm [facility] Body weight 2023-07-24 19:18:00 88.814 kg [facility] BMI 2023-07-24 19:18:00 38.24 kg/m2 [facility] Oxygen saturation in Arterial blood by Pulse oximetry 2023-07-24 19:18:00 95 /min [facility] Systolic blood pressure 2023-07-23 19:46:00 116 mm[Hg] [facility] Diastolic blood pressure 2023-07-23 19:46:00 79 mm[Hg] [facility] Heart rate 2023-07-23 19:46:00 106 /min [facility] Body temperature 2023-07-23 19:46:00 35.89 Janet [facility] Respiratory rate 2023-07-23 19:46:00 16 /min [facility] Body height 2023-07-23 19:46:00 152.4 cm [facility] Body weight 2023-07-23 19:46:00 91.853 kg [facility] BMI 2023-07-23 19:46:00 39.55 kg/m2 [facility] Oxygen saturation in Arterial blood by Pulse oximetry 2023-07-23 19:46:00 95 /min [facility] Systolic blood pressure 2023-06-17 22:49:00 122 mm[Hg] [facility] Diastolic blood pressure 2023-06-17 22:49:00 81 mm[Hg] [facility] Heart rate 2023-06-17 22:49:00 98 /min [facility] Body temperature 2023-06-17 22:49:00 36.44 Janet [facility] Respiratory rate 2023-06-17 22:49:00 18 /min [facility] Body height 2023-06-17 22:49:00 152.4 cm [facility] Body weight 2023-06-17 22:49:00 92.987 kg [facility] BMI 2023-06-17 22:49:00 40.04 kg/m2 [facility] Oxygen saturation in Arterial blood by Pulse oximetry 2023-06-17 22:49:00 95 /min [facility] Systolic blood pressure 2023-05-15 19:30:00 110 mm[Hg] [facility] Diastolic blood pressure 2023-05-15 19:30:00 75 mm[Hg] [facility] Heart rate 2023-05-15 19:30:00 96 /min [facility] Body temperature 2023-05-15 19:30:00 36.72 Janet [facility] Respiratory rate 2023-05-15 19:30:00 18 /min [facility] Body height 2023-05-15 19:30:00 152.4 cm [facility] 2023-05-15 19:30:00 91.536 kg [facility] BMI 2023-05-15 19:30:00 39.41 kg/m2 [facility] Oxygen saturation in Arterial blood by Pulse oximetry 2023-05-15 19:30:00 100 /min [facility] Systolic blood pressure 2023-04-21 20:28:00 126 mm[Hg] [facility] Diastolic blood pressure 2023-04-21 20:28:00 86 mm[Hg] [facility] Heart rate 2023-04-21 20:28:00 98 /min [facility] Body temperature 2023-04-21 20:28:00 36.11 Janet [facility] Respiratory rate 2023-04-21 20:28:00 16 /min [facility] Body height 2023-04-21 20:28:00 152.4 cm [facility] Body weight 2023-04-21 20:28:00 94.802 kg [facility] BMI 2023-04-21 20:28:00 40.82 kg/m2 [facility] Oxygen saturation in Arterial blood by Pulse oximetry 2023-04-21 20:28:00 100 /min [facility] Systolic blood pressure 2023-03-26 20:35:00 127 mm[Hg] [facility] Diastolic blood pressure 2023-03-26 20:35:00 80 mm[Hg] [facility] Heart rate 2023-03-26 20:35:00 90 /min [facility] Body height 2023-03-26 20:35:00 152.4 cm [facility] Body weight 2023-03-26 20:35:00 94.167 kg [facility] BMI 2023-03-26 20:35:00 40.54 kg/m2 [facility] Oxygen saturation in Arterial blood by Pulse oximetry 2023-03-26 20:35:00 98 /min [facility] Systolic blood pressure 2023-02-23 14:43:00 119 mm[Hg] [facility] Diastolic blood pressure 2023-02-23 14:43:00 79 mm[Hg] [facility] Heart rate 2023-02-23 14:43:00 107 /min [facility] Respiratory rate 2023-02-23 14:43:00 18 /min [facility] Body height 2023-02-23 14:43:00 152.4 cm [facility] Body weight 2023-02-23 14:43:00 94.802 kg [facility] BMI 2023-02-23 14:43:00 40.82 kg/m2 [facility] Systolic blood pressure 2022-12-24 18:25:00 107 mm[Hg] [facility] Diastolic blood pressure 2022-12-24 18:25:00 69 mm[Hg] [facility] Heart rate 2022-12-24 18:25:00 92 /min [facility] Body temperature 2022-12-24 18:25:00 36.61 Janet [facility] Body height 2022-12-24 18:25:00 152.4 cm [facility] Body weight 2022-12-24 18:25:00 95.709 kg [facility] BMI 2022-12-24 18:25:00 41.21 kg/m2 [facility] Oxygen saturation in Arterial blood by Pulse oximetry 2022-12-24 18:25:00 97 /min [facility] Systolic blood pressure 2022-11-18 13:42:00 128 mm[Hg] [facility] Diastolic blood pressure 2022-11-18 13:42:00 85 mm[Hg] [facility] Heart rate 2022-11-18 13:42:00 108 /min [facility] Body temperature 2022-11-18 13:42:00 36.89 Janet [facility] Body height 2022-11-18 13:42:00 152.4 cm [facility] Body weight 2022-11-18 13:42:00 94.983 kg [facility] BMI 2022-11-18 13:42:00 40.90 kg/m2 [facility] Systolic blood pressure 2022-11-12 20:11:00 131 mm[Hg] [facility] Diastolic blood pressure 2022-11-12 20:11:00 84 mm[Hg] [facility] Heart rate 2022-11-12 20:11:00 100 /min [facility] Body temperature 2022-11-12 20:11:00 36.78 Janet [facility] Body height 2022-11-12 20:11:00 152.4 cm [facility] Body weight 2022-11-12 20:11:00 95.709 kg [facility] BMI 2022-11-12 20:11:00 41.21 kg/m2 [facility] Oxygen saturation in Arterial blood by Pulse oximetry 2022-11-12 20:11:00 96 /min [facility] Systolic blood pressure 2022-09-08 19:56:00 122 mm[Hg] [facility] Diastolic blood pressure 2022-09-08 19:56:00 81 mm[Hg] [facility] Heart rate 2022-09-08 19:56:00 95 /min [facility] Body height 2022-09-08 19:56:00 152.4 cm [facility] Body weight 2022-09-08 19:56:00 94.756 kg [facility] BMI 2022-09-08 19:56:00 40.80 kg/m2 [facility] Oxygen saturation in Arterial blood by Pulse oximetry 2022-09-08 19:56:00 98 /min [facility] Systolic blood pressure 2022-08-12 17:16:00 131 mm[Hg] [facility] Diastolic blood pressure 2022-08-12 17:16:00 80 mm[Hg] [facility] Heart rate 2022-08-12 17:15:00 113 /min [facility] Body temperature 2022-08-12 17:15:00 36.72 Janet [facility] Respiratory rate 2022-08-12 17:15:00 18 /min [facility] Body height 2022-08-12 17:15:00 152.4 cm [facility] Body weight 2022-08-12 17:15:00 94.892 kg [facility] BMI 2022-08-12 17:15:00 40.86 kg/m2 [facility] Systolic blood pressure 2022-08-08 15:20:00 134 mm[Hg] [facility] Diastolic blood pressure 2022-08-08 15:20:00 71 mm[Hg] [facility] Heart rate 2022-08-08 15:20:00 93 /min [facility] Body height 2022-08-08 15:20:00 152.4 cm [facility] Body weight 2022-08-08 15:20:00 95.618 kg [facility] BMI 2022-08-08 15:20:00 41.17 kg/m2 [facility] Oxygen saturation in Arterial blood by Pulse oximetry 2022-08-08 15:20:00 98 /min [facility] Systolic blood pressure 2022-06-27 22:07:00 125 mm[Hg] [facility] Diastolic blood pressure 2022-06-27 22:07:00 85 mm[Hg] [facility] Heart rate 2022-06-27 22:07:00 95 /min [facility] Body height 2022-06-27 22:07:00 152.4 cm [facility] Body weight 2022-06-27 22:07:00 94.802 kg [facility] BMI 2022-06-27 22:07:00 40.82 kg/m2 [facility] Oxygen saturation in Arterial blood by Pulse oximetry 2022-06-27 22:07:00 97 /min [facility] Systolic blood pressure 2022-05-19 15:24:00 116 mm[Hg] [facility] Diastolic blood pressure 2022-05-19 15:24:00 80 mm[Hg] [facility] Heart rate 2022-05-19 15:22:00 101 /min [facility] Body temperature 2022-05-19 15:22:00 36.94 Janet [facility] Respiratory rate 2022-05-19 15:22:00 18 /min [facility] Body height 2022-05-19 15:22:00 152.4 cm [facility] Body weight 2022-05-19 15:22:00 95.074 kg [facility] BMI 2022-05-19 15:22:00 40.93 kg/m2 [facility] Systolic blood pressure 2022-05-05 20:21:00 124 mm[Hg] [facility] Diastolic blood pressure 2022-05-05 20:21:00 84 mm[Hg] [facility] Heart rate 2022-05-05 20:21:00 109 /min [facility] Body temperature 2022-05-05 20:21:00 36.67 Janet [facility] Respiratory rate 2022-05-05 20:21:00 18 /min [facility] Body height 2022-05-05 20:21:00 152.4 cm [facility] Body weight 2022-05-05 20:21:00 93.895 kg [facility] BMI 2022-05-05 20:21:00 40.43 kg/m2 [facility] Systolic blood pressure 2022-04-17 16:43:00 124 mm[Hg] [facility] Diastolic blood pressure 2022-04-17 16:43:00 80 mm[Hg] [facility] Heart rate 2022-04-17 16:43:00 111 /min [facility] Body temperature 2022-04-17 16:43:00 36.72 Janet [facility] Body height 2022-04-17 16:43:00 152.4 cm [facility] Body weight 2022-04-17 16:43:00 94.983 kg [facility] BMI 2022-04-17 16:43:00 40.90 kg/m2 [facility] Systolic blood pressure 2022-04-11 19:57:00 134 mm[Hg] [facility] Diastolic blood pressure 2022-04-11 19:57:00 83 mm[Hg] [facility] Heart rate 2022-04-11 19:57:00 103 /min [facility] Body height 2022-04-11 19:57:00 152.4 cm [facility] Body weight 2022-04-11 19:57:00 94.575 kg [facility] BMI 2022-04-11 19:57:00 40.72 kg/m2 [facility] Oxygen saturation in Arterial blood by Pulse oximetry 2022-04-11 19:57:00 95 /min [facility] Height 2022-03-05 00:00:00 60 [in_i] [facility] BMI (Body Mass Index) 2022-03-05 00:00:00 40 kg/m2 [facility] Body Weight 2022-03-05 00:00:00 205 [lb_av] Aza [facility] Procedures Procedure Date / Time Performed Performing Clinician Source FLU VACC ([id number]), 6 MO-6 4 YRS, .5ML, IM, TIV (FLUCELVAX) 2024-02-18 14:48:04 Kelly Reynaga [facility] CT SOFT TISSUE NECK W CONTRAST 2023-12-07 3 09:58:11 Eliot Cheung [facility] BASIC METABOLIC PANEL (NA, K , CL, CO2, GLUCOSE, BUN, CREATININE, CA) 2023-12-19 09:23:00 Eliot Cheung [facility] POCT GLUCOSE (AUTOMATED) 2023-12-11 16:57:00 Laura Martínez [facility] POCT GLUCOSE (AUTOMATED) 2023-12-11 16:57:00 Tanya [facility] Limalorena [facility] POCT GLUCOSE (AUTOMATED) 2023-12-11 13:31:00 Tanya [facility] POCT GLUCOSE (AUTOMATED) 2023-12-11 13:31:00 Tanya [facility] MAGNESIUM 2023-12-11 10:23:00 Alan [facility] BASIC METABOLIC PANEL (NA, K , CL, CO2, GLUCOSE, BUN, CREATININE, CA) 2023-12-11 10:23:00 [facility] CBC WITH DIFF 2023-12-11 10:23:00 Sindy [facility] MAGNESIUM 2023-12-11 10:23:00 Alan [facility] BASIC METABOLIC PANEL (NA, K , CL, CO2, GLUCOSE, BUN, CREATININE, CA) 2023-12-11 10:23:00 [facility] CBC WITH DIFF 2023-12-11 10:23:00 S[facility] POCT GLUCOSE (AUTOMATED) 2023-12-11 01:22:00 Tanya [facility] POCT GLUCOSE (AUTOMATED) 2023-12-11 01:22:00 Tanya [facility] POCT GLUCOSE (AUTOMATED) 2023-12-10 22:20:00 Tanya [facility] POCT GLUCOSE (AUTOMATED) 2023-12-10 22:20:00 Tanya [facility] POCT GLUCOSE (AUTOMATED) 2023-12-10 17:50:00 Tanya [facility] POCT GLUCOSE (AUTOMATED) 2023-12-10 17:50:00 Tanya [facility] POCT GLUCOSE (AUTOMATED) 2023-12-10 16:36:00 Tanya [facility] POCT GLUCOSE (AUTOMATED) 2023-12-10 16:36:00 Tanya [facility] BASIC METABOLIC PANEL (NA, K , CL, CO2, GLUCOSE, BUN, CREATININE, CA) 2023-12-10 08:56:00 S[facility] CBC WITH DIFF 2023-12-10 08:56:00 S[facility] BASIC METABOLIC PANEL (NA, K , CL, CO2, GLUCOSE, BUN, CREATININE, CA) 2023-12-10 08:56:00 [facility] 2023-12-10 08:56:00 Pascual Callahan [facility] HYOID SUSPENSION 2023-12-09 16:54:00 Tanya [facility] UVULOPHARYNGOPALATOPLASY 2023-12-09 16:54:00 Tanya [facility] HYOID SUSPENSION 2023-12-09 16:54:00 Tanya [facility] UVULOPHARYNGOPALATOPLASY 2023-12-09 16:54:00 Tanya [facility] POCT GLUCOSE(AGE >30DAYS) 2023-12-09 14:58:00 Nj Connell [facility] POCT GLUCOSE(AGE >30DAYS) 2023-12-09 14:58:00 Nj Connell Tavon [facility] POCT GLUCOSE (AUTOMATED) 2023-12-09 14:57:00 Tanya [facility] POCT GLUCOSE (AUTOMATED) 2023-12-09 14:57:00 Tanya [facility] POCT TEST 2023-12-09 14:35:[address] [facility] POCT TEST 2023-12-09 14:35:[address] [facility] LARYNGOSCOPY 2023-11-12 13:58:00 Tanya [facility] EXAM UNDER ANESTHESIA ORAL CAVITY 2023-11-12 13:58:00 Tanya [facility] POCT GLUCOSE (AUTOMATED) 2023-11-12 13:19:00 Tanya [facility] POCT GLUCOSE (AUTOMATED) 2023-11-12 13:19:00 Tanya [facility] POCT TEST 2023-11-12 13:15:00 Yazan Guo [facility] POCT TEST 2023-11-12 13:15:00 Yazan Guo [facility] TRANSTHORACIC ECHO (TTE) COMPLETE 2023-09-14 16:38:05 Blake Pelletier [facility] EXTERNAL PROVIDER RECORDS 2023-08-03 06:01:00 Doctor Unassigned, Granjeno [facility] AUTHORIZATION FOR RELEASE OF PHI 2023-06 06:01:00 Doctor Unassigned, Granjeno [facility] POCT TEST 2023-06-17 22:56:00 Nicky Peck [facility] POCT URINALYSIS 2023-06-17 22:52:00 Nicky Peck [facility] DME/SUPPLY JUSTIFICATION 2023-06-15 06:01:00 Doctor Unassigned, Granjeno [facility] MAGNESIUM 2023-05-15 19:57:00 Nicky Peck [facility] VITAMIN B12, LEVEL 2023-05-15 19:57:00 Nicky Peck [facility] THYROID STIMULATING HORMONE 2023-05-15 19:57:00 Nicky Peck [facility] COMP. METABOLIC PANEL (09584) 2023-05-15 19:57:00 Nicky Peck [facility] CBC WITH DIFF 2023-05-15 19:57:00 Nicky Peck [facility] POCT TEST 2023-05-15 00:00:00 Nicky Peck [facility] ALKALINE PHOSPHATASE, TOTAL 2023-04-21 20:58:00 Tian Caro [facility] VITAMIN D, 25-OH 2023-04-21 20:58:00 Tian Caro [facility] N-TELOPEPTIDE, SERUM 2023-04-21 20:58:00 Tian Caro [facility] INTACT PTH CALCIUM GROUP 2023-04-21 20:58:00 Tian Caro [facility] FLU VACC ([id number]), 6 MO-6 4 YRS, .5ML, IM, QUAD (FLUCELVAX) 2023-03-26 20:50:06 Kelly Reynaga [facility] ABDOMEN LIMITED 2023-02-06 20:45:00 Nicky Peck [facility] ASSIGNMENT OF BENEFITS 2023-02-06 20:13:40 Doctor Unassigned, Granjeno [facility] CONSENT/REFUSAL FOR DIAGNOSI S AND TREATMENT 2023-02-06 20:13:17 Doctor Unassigned, Granjeno [facility] POCT TEST 2022-12-24 18:42:00 Nicky Peck [facility] POCT URINALYSIS 2022-12-24 18:35:00 Nicky Peck [facility] POCT TEST 2022-11-18 00:00:00 Supriya Yan [facility] ASSIGNMENT OF BENEFITS 2022-11-12 20:11:20 Doctor Unassigned, Granjeno [facility] INSURANCE CORRESPONDENCE 2022-10-07 05:01:00 Doctor Unassigned, Granjeno [facility] DME/SUPPLY JUSTIFICATION 2022-08-21 05:01:00 Doctor Unassigned, Granjeno [facility] DME/SUPPLY JUSTIFICATION 2022-08-01 06:01:00 Doctor Unassigned, Granjeno [facility] US ABDOMEN LIMITED 2022-06-17 16:16:37 Marley Camarillo [facility] POCT TEST 2022-05-19 15:52:00 Nishant Chapman [facility] CONSENT FOR CONTRACEPTION 2022-05-19 06:01:00 Doctor Unassigned, Granjeno [facility] POCT TEST 2022-05-05 20:30:00 Nishant Chapman [facility] DISCLOSURE AND CONSENT, MEDI R[place] AND SURGICAL PROCEDURES 2022-05-05 06:01:00 Doctor Unassigned, Granjeno [facility] POCT TEST 2022-04-17 00:00:00 Nishant Chapman [facility] CBC WITH DIFF 2022-02-19 22:11:00 Vannesa Kaplan [facility] INSURANCE CORRESPONDENCE 2022-02-04 05:01:00 Doctor Unassigned, Granjeno [facility] Encounters Start Date/Time End Date/Time Encounter Type Admission Type Attending Clinicians Care Facility Care Department Encounter ID Source 2024-04-18 13:00:00 2024-04-18 13:00:00 Outpatient R [facility] [id number] [facility] 2024-04-08 09:30:00 2024-04-08 09:30:00 Outpatient R [facility] [id number] [facility] 2024-04-05 11:30:00 2024-04-05 11:55:19 Outpatient R TONE HENDERSON [facility] [id number] [facility] 2024-04-05 11:30:00 2024-04-05 11:55:19 Office Visit Tone Henderson [facility] 1.2.840.114 350.1.13.10 4.2.7.2.686 [id number] [facility] 2024-03-31 00:00:00 2024-03-31 15:20:51 Letter (Out) [facility] ([facility] 1.2.840.114 350.1.13.10 4.2.7.2.686 [id number] [facility] 2024-03-25 16:00:00 2024-03-25 16:37:21 Outpatient R LAURA MARTÍNEZ [facility] [id number] [facility] 2024-03-25 16:00:00 2024-03-25 16:37:21 Office Visit Laura Martínez [facility] ([facility] 1..840.114 350.1.13.10 4.2.7.2.686 [id number] [facility] 2024-03-23 13:56:48 2024-03-23 23:59:00 Outpatient R NICKY PECK [facility] [id number] [facility] 2024-03-23 13:56:48 2024-03-23 23:59:00 Hospital Encounter Nicky Peck [facility] 1.2840.114 350.1.13.10 4.2.7.2.686 [id number] [facility] 2024-03-23 13:30:00 2024-03-23 13:57:37 [facility] 1.2.840.114 350.1.13.10 4.2.7.2.686 [id number] [facility] 2024-02-16 00:00:00 2024-02-22 17:22:13 Telephone Kelly Reynaga [facility] 1.2840.114 350.1.13.10 4.2.7.2.686 [id number] [facility] 2024-02-18 09:30:00 2024-02-18 09:55:12 Outpatient R KELLY REYNAGA [facility] [id number] [facility] 2024-02-18 09:30:00 2024-02-18 09:55:12 Office Visit Kelly Reynaga [facility] 1.2840.114 350.1.13.10 4.2.7.2.686 [id number] [facility] 2024-02-17 00:00:00 2024-02-17 13:35:53 Telephone Kelly Reynaga [facility] 1.2840.114 350.1.13.10 4.2.7.2.686 [id number] [facility] 2024-02-16 00:00:00 2024-02-16 17:28:11 Nurse Triage Katie Ibarra [facility] 1.2840.114 350.1.13.10 4.2.7.2.686 [id number] [facility] 2024-02-01 00:00:00 2024-02-01 10:16:13 [facility] 1.2840.114 350.1.13.10 4.2.7.2.686 [id number] [facility] 2024-01-27 00:00:00 2024-01-29 09:42:25 [facility] 1.84114 350.1.13.10 4.2.7.2.686 [id number] [facility] 2024-01-26 15:30:00 2024-01-26 16:11:16 Outpatient R BAL S, SUPRIYA BAL S, SUPRIYA [facility] [id number] [facility] 2024-01-26 15:30:00 2024-01-26 16:11:16 Nurse Visit Nurse, [facility] [place] farmer, Supriya Nurse, [facility] NAL BUILDING 1.84.114 350.1.13.10 4.2.7.2.686 [id number] [facility] 2024-01-15 00:00:00 2024-01-18 12:30:07 Telephone Juhi [facility]?KEL [facility] [id number] 350.1.13.10 4.2.7.2.686 [id number] [facility] 2023-12-15 00:00:00 2024-01-16 18:21:03 Patient Secure Msg Doctor Unassigned, Granjeno Doctor Unassigned, Granjeno [facility] 1.20.114 350.1.13.10 4.2.7.2.686 [id number] [facility] 2024-01-14 13:15:00 2024-01-14 13:30:00 Pulper Operator Visit Lab, [facility] [place] [facility], Ang [facility] 1.2.840.114 350.1.13.10 4.2.7.2.686 [id number] [facility] 2024-01-14 12:30:00 2024-01-14 12:59:19 Outpatient R NICKY PECK [facility] [id number] [facility] 2024-01-14 12:30:00 2024-01-14 12:59:19 Office Visit Nicky Peck [facility] 1.840.114 350.1.13.10 4.2.7.2.686 [id number] [facility] 2024-01-13 00:00:00 2024-01-14 11:15:28 Nurse Triage Kelly Reynaga [facility] 1.840.114 350.1.13.10 4.2.7.2.686 [id number] [facility] 2024-01-13 15:00:00 2024-01-13 15:00:00 Outpatient R NICKY PECK [facility] [id number] [facility] 2023-12-25 13:00:00 2023-12-25 13:51:04 Outpatient R LAURA MARTÍNEZ [facility] [id number] [facility] 2023-12-25 13:00:00 2023-12-25 13:51:04 Office Visit Laura Martínez [facility] 1.840.114 350.1.13.10 4.2.7.2.686 [id number] [facility] 2023-12-19 00:00:00 2023-12-24 13:33:27 Telephone Laura Martínez [facility] 1..114 350.1.13.10 4.2.7.2.686 [id number] [facility] 2023-12-22 10:00:00 2023-12-22 10:51:30 Outpatient R PRABHU [facility] [id number] [facility] 2023-12-22 10:00:00 2023-12-22 10:51:30 Office Visit Prabhu [facility] PROFESSIO NAL BUILDING 1..114 350.1.13.10 4.2.7.2.686 [id number] [id number] [facility] 2023-12-19 03:39:00 2023-12-19 07:11:00 Emergency Bebeomarconnor Eliot S [facility] 1..114 350.1.13.10 4.2.7.2.686 [id number] 084 [id number] [facility] 2023-12-19 03:39:00 2023-12-19 07:11:00 Emergency X BEBEOMARCONNORELIOT WAKILI [facility] [id number] [facility] 2023-12-17 00:00:00 2023-12-17 11:45:10 Telephone Tian Caro [facility] 1..114 350.1.13.10 4.2.7.2.686 [id number] 220 [id number] [facility] 2023-12-16 10:20:00 2023-12-16 10:40:00 Urgent Care Viola Spivey Unknown, Attending [facility] 1..114 350.1.13.10 4.2.7.2.686 [id number] [facility] 2023-12-16 10:20:00 2023-12-16 10:20:00 Outpatient R VIOLA SPIVEY [facility] [id number] [facility] 2023-12-09 09:21:00 2023-12-11 13:40:00 Outpatient R TANYA [facility] [id number] [facility] 2023-12-09 09:21:00 2023-12-11 13:40:00 Hospital Encounter [facility] 1.2840.114 350.1.13.10 4.2.7.2.686 [id number] [facility] 2023-12-09 11:24:00 2023-12-09 15:10:00 Surgery [facility] 1.2840.114 350.1.13.10 4.2.7.2.686 [id number] [facility] 2023-12-07 16:30:00 2023-12-07 17:03:52 Pulper Operator Visit Lab, [facility] 1.2840.114 350.1.13.10 4.2.7.2.686 [id number] [facility] 2023-12-07 16:00:00 2023-12-07 16:10:04 [facility] [id number] [facility] 2023-12-07 16:00:00 2023-12-07 16:10:04 [facility] 1.2840.114 350.1.13.10 4.2.7.2.686 [id number] [id number] [facility] 2023-12-04 15:00:00 2023-12-04 15:00:00 Office Visit Larua Martínez [facility] 1.840.114 350.1.13.10 4.2.7.2.686 [id number] [facility] 2023-12-04 15:00:00 2023-12-04 14:14:51 Outpatient R LAURA MARTÍNEZ [facility] [id number] [facility] 2023-11-26 14:30:00 2023-11-26 14:45:00 Pulper Operator Visit Pob, Adc Lab Main [place], Supriya [facility] BUILDING 1..840.114 350.1.13.10 4.2.7.2.686 [id number] 353 [id number] [facility] 2023-11-26 14:30:00 2023-11-26 14:30:00 Outpatient R FINN-CHINO S, SUPRIYA FINN-CHINO S, SUPRIYA [facility] [id number] [facility] 2023-11-20 15:00:00 2023-11-20 15:47:57 Outpatient R FINN-CHINO S, SUPRIYA FINN-CHINO S, SUPRIYA [facility] [id number] [facility] 2023-11-20 15:00:00 2023-11-20 15:47:57 Office Visit [place], Supriya [facility] BUILDING 1..840.114 350.1.13.10 4.2.7.2.686 [id number] [facility] 2023-11-12 09:50:00 2023-11-12 10:59:00 Surgery Laura Martínez [facility] 1..840.114 350.1.13.10 4.2.7.2.686 [id number] [facility] 2023-11-12 07:58:00 2023-11-12 10:31:00 Outpatient R [facility] [id number] [facility] 2023-11-12 07:58:00 2023-11-12 10:31:00 Hospital Encounter Laura Martínez [facility] 1..114 350.1.13.10 4.2.7.2.686 [id number] [facility] 2023 10:30:00 2023 10:50:41 Outpatient R NISHANT CHAPMAN [facility] [id number] [facility] 2023 10:30:00 2023 10:50:41 Nurse Visit Nurse, [facility] Nishant Chapman [facility] 1..114 350.1.13.10 4.2.7.2.686 [id number] [facility] 2023-10-23 14:00:00 2023-10-23 14:30:00 Office Visit Tanya [facility] 1..114 350.1.13.10 4.2.7.2.686 [id number] [facility] 2023-10-23 14:00:00 2023-10-23 14:00:00 Outpatient R LAURA MARTÍNEZ [facility] [id number] [facility] 2023-10-21 00:00:00 2023-10-21 16:47:02 Telephone Tanya [facility] 1..114 350.1.13.10 4.2.7.2.686 [id number] [facility] 2023-10-21 11:00:00 2023-10-21 11:30:00 Office Visit Tian Caro [facility] 1..114 350.1.13.10 4.2.7.2.686 [id number] [facility] 2023-10-21 11:00:00 2023-10-21 11:00:00 Outpatient R TIAN CARO [facility] [id number] [facility] 2023-10-20 20:00:00 2023-10-20 20:00:00 Outpatient R [facility] [id number] [facility] 2023-10-19 08:00:00 2023-10-19 08:15:00 Pulper Operator Visit Pob, Adc Lab Main Obey Cage [facility] BUILDING 1.2.840.114 350.1.13.10 4.2.7.2.686 [id number] [facility] 2023-10-19 08:00:00 2023-10-19 08:00:00 Outpatient R OBEY CAGE [facility] [id number] [facility] 2023-10-05 13:45:00 2023-10-05 14:00:00 Pulper Operator Visit Pob, Adc Lab Main Tone Henderson Umair [facility] BUILDING 1.2.840.114 350.1.13.10 4.2.7.2.686 [id number] [facility] 2023-10-05 10:00:00 2023-10-05 11:08:38 Outpatient R TONE HENDERSON SHIWAN [facility] [id number] [facility] 2023-10-05 10:00:00 2023-10-05 11:08:38 Office Visit Tone Henderson [facility] BUILDING 1.2.840.114 350.1.13.10 4.2.7.2.686 [id number] [id number] [facility] 2023-09-30 20:00:00 2023-09-30 22:30:00 Pulper Operator Visit 1, [facility] Sleep Lab Bed Kenzie Correa [facility] 1.2.840.114 350.1.13.10 4.2.7.2.686 [id number] [facility] 2023-09-30 20:00:00 2023-09-30 20:00:00 Outpatient R KENZIE CORREA STRAIDSage [facility] [id number] [facility] 2023-09-22 09:30:00 2023-09-22 10:23:44 Outpatient R PRABHU [facility] [id number] [facility] 2023-09-22 09:30:00 2023-09-22 10:00:00 Office Visit Alexis Pelletierammed [facility] 1.2.840.114 350.1.13.10 4.2.7.2.686 [id number] [id number] [facility] 2023-09-15 00:00:00 2023-09-15 00:00:00 Telephone [facility]hu [facility] BU[facility] 1.2.840.114 350.1.13.10 4.2.7.2.686 [id number] [facility] 2023-09-14 10:00:00 2023-09-14 23:59:00 Outpatient R BLAKE PELLETIER [facility] [id number] [facility] 2023-09-14 10:00:00 2023-09-14 23:59:00 Hospital Encounter Prabhu [facility] BUILDING 1.2.840.114 350.1.13.10 4.2.7.2.686 [id number] [facility] 2023-09-14 08:30:00 2023-09-14 09:59:00 Hospital [facility] 1.2.840.114 350.1.13.10 4.2.7.2.686 [id number] [facility] 2023-09-11 12:15:00 2023-09-11 12:53:23 Outpatient R STEPHENIE REYNAGATHIA [facility] [id number] [facility] 2023-09-11 12:15:00 2023-09-11 12:30:00 Pulper Operator Visit Lab, River Callahan [facility] BUILD[facility] 1.2.840.114 350.1.13.10 4.2.7.2.686 [id number] [facility] 2023-08-25 09:30:00 2023-08-25 10:03:43 Out[facility] [id number] [facility] 2023-08-25 09:30:00 2023-08-25 10:03:43 Office Visit Blake Pelletier [facility] 1..840.114 350.1.13.10 4.2.7.2.686 [id number] [facility] 2023-08-10 08:00:00 2023-08-10 08:11:33 Outpatient R HUMA-CHINO S, SUPRIYA HUMA-CHINO S SUPRIYA [facility] [id number] [facility] 2023-08-10 08:00:00 2023-08-10 08:11:33 Nurse Visit Nurse, [facility] Supriya Ledezma [facility] BUILDING 1.2.840.114 350.1.13.10 4.2.7.2.686 [id number] [facility] 2023-08-10 00:00:00 2023-08-10 00:00:00 Telephone Tone Henderson [facility] 1.2.840.114 350.1.13.10 4.2.7.2.686 [id number] [id number] [facility] 2023-08-04 10:30:00 2023-08-04 11:11:28 Outpatient R TONE HENDERSON SHIVASoila [facility] [id number] [facility] 2023-08-04 10:30:00 2023-08-04 11:11:28 Office Visit Tone Henderson [facility] BUILDING 1.2.840.114 350.1.13.10 4.2.7.2.686 [id number] [id number] [facility] 2023-08-04 00:00:00 2023-08-04 00:00:00 Telephone [facility] OFF[facility] BUILD[facility] 1.2.840.114 350.1.13.10 4.2.7.2.686 [id number] 044 [id number] [facility] 2023-08-03 00:00:00 2023-08-03 00:00:00 Orders Only Doctor Unassigned, Granjeno [facility] 1.2.840.114 350.1.13.10 4.2.7.2.686 [id number] [facility] 2023-07-30 00:00:00 2023-07-30 00:00:00 Refill Stephenie [facility] BUILDING 1.2.840.114 350.1.13.10 4.2.7.2.686 [id number] [id number] [facility] 2023-07-24 13:00:00 2023-07-24 13:39:25 Outpatient R NICKY PECK [facility] [id number] [facility] 2023-07-24 13:00:00 2023-07-24 13:39:25 Office Visit Nicky Peck [facility] BUILD[facility] 1.0.114 350.1.13.10 4.2.7.2.686 [id number] 044 [id number] [facility] 2023-07-23 14:30:00 2023-07-23 15:00:00 Office Visit Obey Cage [facility] 1.20.114 350.1.13.10 4.2.7.2.686 [id number] [facility] 2023-07-23 14:30:00 2023-07-23 14:30:00 Outpatient R OBEY CAGE [facility] [id number] [facility] 2023-07-15 00:00:00 2023-07-15 00:00:00 Telephone Tian Caro [facility] 1.0.114 350.1.13.10 4.2.7.2.686 [id number] 220 [id number] [facility] 2023-07-10 00:00:00 2023-07-10 00:00:00 Refill Tian Caro [facility] 1.0.114 350.1.13.10 4.2.7.2.686 [id number] 220 [id number] [facility] 2023-06-25 00:00:00 2023-06-25 00:00:00 Refill Kelly Reynaga [facility] 1.0.114 350.1.13.10 4.2.7.2.686 [id number] [id number] [facility] 2023-06-19 00:00:00 2023-06-19 00:00:00 Orders Only Doctor Unassigned, Granjeno [facility] 1.0.114 350.1.13.10 4.2.7.2.686 [id number] [facility] 2023-06-17 16:30:00 2023-06-17 17:26:16 Outpatient R NICKY PECK [facility] [id number] [facility] 2023-06-17 16:30:00 2023-06-17 17:26:16 Office Visit Cisco Nicky Montano [facility] MEDICAL OFFICE BUILDING 1.2840.114 350.1.13.10 4.2.7.2.686 [id number] [id number] [facility] 2023-06-17 17:00:00 2023-06-17 17:15:00 Pulper Operator Visit Lab, Nicky Whitaker Dusty [facility] MEDICAL OFFICE BUILDING 1.2840.114 350.1.13.10 4.2.7.2.686 [id number] [facility] 2023-06-15 00:00:00 2023-06-15 00:00:00 Orders Only Doctor Unassigned, Granjeno [facility] 1.2840.114 350.1.13.10 4.2.7.2.686 [id number] [facility] 2023-06-12 00:00:00 2023-06-12 00:00:00 Telephone Nicky Peck Dusty [facility] MEDICAL OFFICE BUILDING 1.2840.114 350.1.13.10 4.2.7.2.686 [id number] 044 [id number] [facility] 2023-06-11 00:00:00 2023-06-11 00:00:00 Telephone Cisco [facility] MEDICAL OFFICE BUILDING 1.2840.114 350.1.13.10 4.2.7.2.686 [id number] 044 [id number] [facility] 2023-06-11 00:00:00 2023-06-11 00:00:00 Telephone Santiago Pe[facility]lichanel [facility] BUILD[facility] 1.2.840.114 350.1.13.10 4.2.7.2.686 [id number] 044 [id number] [facility] 2023-06-10 14:15:45 2023-06-10 23:59:00 Outpatient R NICKY PECK [facility] [id number] [facility] 2023-06-10 14:15:45 2023-06-10 23:59:00 Hospital Encounter Nicky Peck [facility] 1.2.840.114 350.1.13.10 4.2.7.2.686 [id number] [facility] 2023-05-25 00:00:00 2023-05-25 00:00:00 Telephone Tian Caro [facility] 1.2.840.114 350.1.13.10 4.2.7.2.686 [id number] [facility] 2023-05-21 00:00:00 2023-05-21 00:00:00 Telephone ElizabethgermaineKelly [facility] MEDICAL OFFICE BUILDING 1.2.840.114 350.1.13.10 4.2.7.2.686 [id number] 044 [id number] [facility] 2023-05-19 00:00:00 2023-05-19 00:00:00 Telephone Santiago Pecklichanel Montano [facility] MEDICAL OFFICE BUILDING 1.2.840.114 350.1.13.10 4.2.7.2.686 [id number] [id number] [facility] 2023-05-18 10:30:00 2023-05-18 11:20:17 Outpatient R NISHANT CHAPMAN [facility] [id number] [facility] 2023-05-15 14:00:00 2023-05-15 14:15:00 Pulper Operator Visit Lab, River Callahan Nicky Peck [facility] MEDICAL OFFICE BUILDING 1..840.114 350.1.13.10 4.2.7.2.686 [id number] [facility] 2023-05-15 13:00:00 2023-05-15 13:51:35 Outpatient R NICKY PECK [facility] [id number] [facility] 2023-05-15 13:00:00 2023-05-15 13:51:35 Office Visit Nicky Peck [facility] MEDICAL OFFICE BUILDING 1..840.114 350.1.13.10 4.2.7.2.686 [id number] 044 [id number] [facility] 2023-04-21 15:00:00 2023-04-21 15:30:00 Office Visit Gordo, Overton A [facility] 1..840.114 350.1.13.10 4.2.7.2.686 [id number] [facility] 2023-04-21 15:00:00 2023-04-21 15:00:00 Outpatient R GORDOLYNDAOVERTON [facility] [id number] [facility] 2023-04-20 15:53:37 2023-04-20 15:53:37 Outpatient [facility] [id number] Mateusz Dorado 2023-03-26 16:00:00 2023-03-26 16:15:00 Pulper Operator Visit Lab, River JohnsonStephenie [facility]Select [facility] BUILDING 1..840.114 350.1.13.10 4.2.7.2.686 [id number] [facility] 2023-03-26 15:30:00 2023-03-26 16:01:32 [facility] 1..840.114 350.1.13.10 4.2.7.2.686 [id number] [id number] [facility] 2023-03-26 16:00:00 2023-03-26 16:00:00 Outpatient R [facility] [id number] [facility] 2023-02-23 10:00:00 2023-02-23 10:00:00 Nurse Visit Nurse, [facility] [place] s, Supriya [facility] PROFESSIO NAL BUILDING 1..840.114 350.1.13.10 4.2.7.2.686 [id number] [facility] 2023-02-23 10:00:00 2023-02-23 09:45:09 Outpatient R FINN-CHINO S, SUPRIYA FINN-CHINO S, SUPRIYA [facility] [id number] [facility] 2023-02-06 15:13:36 2023-02-06 23:59:00 Outpatient R NICKY PECK [facility] [id number] [facility] 2023-02-06 15:00:00 2023-02-06 23:59:00 Hospital Encounter Nicky Peck [facility] 1.840.114 350.1.13.10 4.2.7.2.686 [id number] [facility] 2023-02-06 00:00:00 2023-02-06 00:00:00 Patient Secure Msg Doctor Unassigned, Granjeno [facility] 1.840.114 350.1.13.10 4.2.7.2.686 [id number] [facility] 2023-02-05 00:00:00 2023-02-05 00:00:00 Telephone [facility] 1.2.840.114 350.1.13.10 4.2.7.2.686 [id number] [id number] [facility] 2023-02-02 00:00:00 2023-02-02 00:00:00 Telephone [facility] MED[facility] OFF[facility] BUILDING 1.2840.114 350.1.13.10 4.2.7.2.686 [id number] 044 [id number] [facility] 2023-02-01 00:00:00 2023-02-01 00:00:00 Telephone Nicky Peck [facility] MEDICAL OFFICE BUILDING 1.84.114 350.1.13.10 4.2.7.2.686 [id number] [id number] [facility] 2023-01-26 00:00:00 2023-01-26 00:00:00 Raj Reynaga [facility] MEDICAL OFFICE BUILDING 1.84.114 350.1.13.10 4.2.7.2.686 [id number] 044 [id number] [facility] 2023-01-24 00:00:00 2023-01-24 00:00:00 [facility] MEDICAL OFFICE BUILDING 1.2840.114 350.1.13.10 4.2.7.2.686 [id number] [id number] [facility] 2023-01-07 14:00:00 2023-01-07 14:34:41 Outpatient R KELLY REYNAGA [facility] [id number] [facility] 2023-01-07 14:00:00 2023-01-07 14:15:00 Pulper Operator Visit Lab, River Reynaga [facility] MEDICAL OFFICE BUILDING 1.2840.114 350.1.13.10 4.2.7.2.686 [id number] [facility] 2023-01-02 00:00:00 2023-01-02 00:00:00 Telephone [facility] MEDICAL OFFICE BUILDING 1.2840.114 350.1.13.10 4.2.7.2.686 [id number] [id number] [facility] 2022-12-24 14:30:00 2022-12-24 14:45:00 Pulper Operator Visit Lab, Ang - Db Nicky Peck [facility] MEDICAL OFFICE BUILDING 1.840.114 350.1.13.10 4.2.7.2.686 [id number] [facility] 2022-12-24 13:00:00 2022-12-24 13:43:30 Outpatient R NICKY PECK [facility] [id number] [facility] 2022-12-24 13:00:00 2022-12-24 13:43:30 Office Visit [facility] MEDICAL OFFICE BUILDING 1.2840.114 350.1.13.10 4.2.7.2.686 [id number] [id number] [facility] 2022-12-24 00:00:00 2022-12-24 00:00:00 Refill [facility] MEDICAL OFFICE BUILDING 1.2840.114 350.1.13.10 4.2.7.2.686 [id number] [id number] [facility] 2022-12-16 00:00:00 2022-12-16 00:00:00 Refill [facility] Peck [facility] MEDICAL OFFICE BUILDING 1.2840.114 350.1.13.10 4.2.7.2.686 [id number] [id number] [facility] 2022-11-18 08:30:00 2022-11-18 09:00:00 Office Visit Kori Ledezmasol [facility] BUILDING 1..840.114 350.1.13.10 4.2.7.2.686 [id number] [facility] 2022-11-18 08:30:00 2022-11-18 08:30:00 Outpatient R FINN-CHINO S, SUPRIYA FINN-CHION S, SUPRIYA [facility] [id number] [facility] 2022-11-13 00:00:00 2022-11-13 00:00:00 Telephone Nicky Peck [facility] 1..840.114 350.1.13.10 4.2.7.2.686 [id number] [id number] [facility] 2022-11-12 15:30:00 2022-11-12 15:48:52 Outpatient R NICKY PECK [facility] [id number] [facility] 2022-11-12 15:30:00 2022-11-12 15:48:52 [facility] BU[facility] 1..840.114 350.1.13.10 4.2.7.2.686 [id number] [id number] [facility] 2022-11-12 15:15:00 2022-11-12 15:30:00 Pulper Operator Visit Lab, Ang - Db [facility] 1..840.114 350.1.13.10 4.2.7.2.686 [id number] [facility] 2022-11-12 00:00:00 2022-11-12 00:00:00 Orders Only Doctor Unassigned, Granjeno [facility] 1.2840.114 350.1.13.10 4.2.7.2.686 [id number] [facility] 2022-10-07 00:00:00 2022-10-07 00:00:00 Orders Only Doctor Unassigned, Granjeno [facility] 1.2.840.114 350.1.13.10 4.2.7.2.686 [id number] [facility] 2022-10-03 00:00:00 2022-10-03 00:00:00 Nurse Triage Emily Kaminski [facility] 1.2840.114 350.1.13.10 4.2.7.2.686 [id number] [facility] 2022-10-02 00:00:00 2022-10-02 00:00:00 Refill Juhi [facility] 1.0.114 350.1.13.10 4.2.7.2.686 [id number] [id number] [facility] 2022-09-18 00:00:00 2022-09-18 00:00:00 [facility] 1.2840.114 350.1.13.10 4.2.7.2.686 [id number] 044 [id number] [facility] 2022-09-08 15:00:00 2022-09-08 15:35:57 Outpatient R KELLY [facility]YNAGA [facility] [id number] [facility] 2022-09-08 15:00:00 2022-09-08 15:35:57 Office Visit Juhi [facility] 1.2840.114 350.1.13.10 4.2.7.2.686 [id number] 044 [id number] [facility] 2022-09-08 00:00:00 2022-09-08 00:00:00 [facility] 1.2.840.114 350.1.13.10 4.2.7.2.686 [id number] [id number] [facility] 2022-08-21 00:00:00 2022-08-21 00:00:00 Orders Only Doctor Unassigned, Granjeno [facility] 1.2.840.114 350.1.13.10 4.2.7.2.686 [id number] [facility] 2022-08-20 00:00:00 2022-08-20 00:00:00 [facility] 1..840.114 350.1.13.10 4.2.7.2.686 [id number] 044 [id number] [facility] 2022-08-18 00:00:00 2022-08-18 00:00:00 Telephone Nishant Chapman [facility] BUILDING 1..840.114 350.1.13.10 4.2.7.2.686 [id number] [facility] 2022-08-12 10:30:00 2022-08-12 11:17:30 Outpatient R NISHANT CHAPMAN [facility] [id number] [facility] 2022-08-12 10:30:00 2022-08-12 11:17:30 Nurse Visit Nurse, [facility] Nishant Chapman [facility] BUILDING 1.2.840.114 350.1.13.10 4.2.7.2.686 [id number] [facility] 2022-08-08 09:30:00 2022-08-08 10:00:00 Office Visit Juhi [facility] 1.2.840.114 350.1.13.10 4.2.7.2.686 [id number] 044 [id number] [facility] 2022-08-08 09:30:00 2022-08-08 09:30:00 Outpatient R KELLY REYNAGA [facility] [id number] [facility] 2022-08-01 00:00:00 2022-08-01 00:00:00 Orders Only Doctor Unassigned, Granjeno [facility] 1.2.840.114 350.1.13.10 4.2.7.2.686 [id number] [facility] 2022-07-30 00:00:00 2022-07-30 00:00:00 Telephone [facility]Stephen[facility] BU[facility] 1.2.840.114 350.1.13.10 4.2.7.2.686 [id number] [id number] [facility] 2022-07-01 00:00:00 2022-07-01 00:00:00 [facility]phone [facility] 1.2.840.114 350.1.13.10 4.2.7.2.686 [id number] [id number] [facility] 2022-06-27 16:30:00 2022-06-27 16:45:00 Pulper Operator Visit Lab, [facility] [facility] OCTAVIANO?[facility] 1.2840.114 350.1.13.10 4.2.7.2.686 [id number] [facility] 2022-06-27 16:00:00 2022-06-27 16:37:43 Outpatient R KELLY REYNAGA [facility] [id number] [facility] 2022-06-27 16:00:00 2022-06-27 16:37:43 [facility] 1.840.114 350.1.13.10 4.2.7.2.686 [id number] [facility] 2022-06-17 09:32:15 2022-06-17 23:59:00 Outpatient R MARQUISE [facility] [id number] [facility] 2022-06-17 09:32:15 2022-06-17 23:59:00 Hospital Encounter Marquise [facility] 1.84.114 350.1.13.10 4.2.7.2.686 [id number] [facility] 2022-06-12 11:30:00 2022-06-12 11:45:00 Pulper Operator Visit Pokatelyn, Adc Lab Main Marquise [facility] BUILDING 1.84.114 350.1.13.10 4.2.7.2.686 [id number] [facility] 2022-06-12 11:30:00 2022-06-12 11:30:00 Outpatient R MARQUISE [facility] [id number] [facility] 2022-05-19 09:30:00 2022-05-19 09:50:10 Outpatient R NISHANT CHAPMAN [facility] [id number] [facility] 2022-05-19 09:30:00 2022-05-19 09:50:10 Office Visit Nishnat Chapman [facility] BUILD[facility] 1.84.114 350.1.13.10 4.2.7.2.686 [id number] [facility] 2022-05-19 00:00:00 2022-05-19 00:00:00 Orders Only Doctor Unassigned, Granjeno [facility] 1..114 350.1.13.10 4.2.7.2.686 [id number] [facility] 2022-05-09 09:30:00 2022-05-09 09:30:00 Outpatient R KELLY REYNAGA [facility] [id number] [facility] 2022-05-09 00:00:00 2022-05-09 00:00:00 Telephone [facility] 1.840.114 350.1.13.10 4.2.7.2.686 [id number] [facility] 2022-05-05 13:30:00 2022-05-05 14:52:24 Outpatient R ADELA NISHANT [facility] [id number] [facility] 2022-05-05 13:30:00 2022-05-05 14:52:24 Office Visit ChapmanNishant [facility] 1..840.114 350.1.13.10 4.2.7.2.686 [id number] [facility] 2022-05-05 00:00:00 2022-05-05 00:00:00 Orders Only Doctor Unassigned, Granjeno [facility] 1.840.114 350.1.13.10 4.2.7.2.686 [id number] [facility] 2022-04-17 10:30:00 2022-04-17 11:26:08 Outpatient R NISHANT CHAPMAN [facility] [id number] [facility] 2022-04-17 10:30:00 2022-04-17 11:26:08 Office Visit Nishant Chapman [facility] 1..840.114 350.1.13.10 4.2.7.2.686 [id number] [facility] 2022-04-15 10:00:00 2022-04-15 10:00:00 Outpatient NISHANT OROPEZA [facility] [id number] [facility] 2022-04-11 15:00:00 2022-04-11 15:29:48 Outpatient KELLY ZAYAS [facility] [id number] [facility] 2022-04-11 15:00:00 2022-04-11 15:29:48 Office Visit Kelly Reynaga [facility] MILENA POLO?[facility] 1.2.840.114 350.1.13.10 4.2.7.2.686 [id number] [facility] 2022-04-08 10:30:00 2022-04-08 10:30:00 Outpatient KELLY ZAYAS [facility] [id number] [facility] 2022-03-18 00:00:00 2022-03-18 00:00:00 Outpatient FOG_Patel_R Kassi AO AO [id number] [facility] 2022-03-05 00:00:00 2022-03-05 00:00:00 Outpatient FOG_Patel_Esdras Solitario AO AO [id number] [facility] 2022-03-05 00:00:00 2022-03-05 00:00:00 Nithin Leung MD: [id number] [facility] [address], [place] [address] , Ph. [phone] [facility] [place] [facility] [place] [id number] [facility] 2022-03-03 00:00:00 2022-03-03 00:00:00 Outpatient FOG_Patel_R Kassi AO AO [id number] [facility] 2022-03-01 00:00:00 2022-03-01 00:00:00 Outpatient FOG_Patel_Esdras Solitario AO AO [id number] [facility] 2022-02-27 14:00:00 2022-02-27 14:00:00 Outpatient CARMEN ALDRICH [facility] [id number] [facility] 2022-02-26 00:00:00 2022-02-26 00:00:00 Outpatient [facility] [id number] [facility] 2022-02-21 11:30:00 2022-02-21 11:45:00 Pulper Operator Visit Aparna, [facility]c [facility] 1..840.114 350.1.13.10 4.2.7.2.686 [id number] [facility] 2022-02-21 11:30:00 2022-02-21 11:30:00 Outpatient Esdras [facility] [id number] [facility] 2022-02-19 17:00:00 2022-02-19 17:15:00 Pulper Operator Visit Aparna, Facundo Lab [facility] 1..840.114 350.1.13.10 4.2.7.2.686 [id number] [facility] 2022-02-19 17:00:00 2022-02-19 17:00:00 Outpatient Esdras [facility] [id number] [facility] 2022-02-08 00:00:00 2022-02-08 00:00:00 Patient Secure Msg Doctor Unassigned, Granjeno [facility] ..840.114 350.1.13.10 4.2.7.2.686 [id number] [facility] 2022-02-07 14:30:00 2022-02-07 16:23:18 Office Visit Kelly Reynaga [facility] 1..840.114 350.1.13.10 4.2.7.2.686 [id number] [facility] 2022-02-07 14:30:00 2022-02-07 16:23:18 Outpatient R KELLY REYNAGA [facility] [id number] [facility] 2022-02-07 14:30:00 2022-02-07 14:30:00 Outpatient R KELLY REYNAGA [facility] [id number] [facility] 2022-02-04 00:00:00 2022-02-04 00:00:00 [facility] 1.2.840.114 350.1.13.10 4.2.7.2.686 [id number] [facility] 2022-02-04 00:00:00 2022-02-04 00:00:00 Orders Only Doctor Unassigned, Granjeno [facility] 1.2.840.114 350.1.13.10 4.2.7.2.686 [id number] [facility] 2022-02-03 00:00:00 2022-02-03 00:00:00 [facility]phone [facility] 1.2.840.114 350.1.13.10 4.2.7.2.686 [id number] [facility] 2022-01-31 00:00:00 2022-01-31 00:00:00 Telephone Juhi [facility] Center[facility] S[facility]HE?[facility] 1.2.840.114 350.1.13.10 4.2.7.2.686 [id number] [facility] 2022-01-24 00:00:00 2022-01-24 00:00:00 Telephone Juhi [facility] Center[facility] 1.2.840.114 350.1.13.10 4.2.7.2.686 [id number] [facility] 2022-01-22 00:00:00 2022-01-22 00:00:00 Patient Secure Msg Mirtha Bowman [facility] OCT[facility] 1.2.840.114 350.1.13.10 4.2.7.2.686 [id number] [facility] 2022-01-22 00:00:00 2022-01-22 00:00:00 Patient Secure Msg Mirtha Bowman [facility] OCTAVIANO?[facility] 1.2.840.114 350.1.13.10 4.2.7.2.686 [id number] [facility] 2022-01-22 00:00:00 2022-01-22 00:00:00 Patient Secure Msg [facility] 1.2.840.114 350.1.13.10 4.2.7.2.686 [id number] [facility] 2022-01-20 00:00:00 2022-01-20 00:00:00 [facility] 1.2.840.114 350.1.13.10 4.2.7.2.686 [id number] [facility] 2022-01-17 14:15:00 2022-01-17 23:59:00 Outpatient R KELLY REYNAGA [facility] [id number] [facility] 2022-01-17 14:15:00 2022-01-17 14:15:00 Outpatient R KELLY RENYAGA [facility] [id number] [facility] 2022-01-17 14:00:00 2022-01-17 14:15:00 Pulper Operator Visit Lab, Ang - Db Kelly [facility] 1.2.840.114 350.1.13.10 4.2.7.2.686 [id number] [facility] 2022-01-17 13:30:00 2022-01-17 14:10:08 Office [facility] 1.2.840.114 350.1.13.10 4.2.7.2.686 [id number] [facility] 2022-01-17 13:30:00 2022-01-17 13:30:00 Outpatient R KELLY REYNAGA [facility] [id number] [facility] 2021-12-25 00:00:00 2021-12-25 00:00:00 Orders Only Doctor Unassigned, Granjeno [facility] 1.2.840.114 350.1.13.10 4.2.7.2.686 [id number] [facility] 2021-12-24 17:15:00 2021-12-24 17:30:00 Pulper Operator Visit Pob, Adc Lab Main Kelly Reynaga [facility] NAL BUILDING 1..840.114 350.1.13.10 4.2.7.2.686 [id number] [facility] 2021-12-24 17:15:00 2021-12-24 17:15:00 Outpatient R KELLY REYNAGA [facility] [id number] [facility] 2021-12-24 16:30:00 2021-12-24 17:02:50 Outpatient R KELLY REYNAGA [facility] [id number] [facility] 2021-12-24 16:30:00 2021-12-24 17:02:50 Office Visit Kelly Reynaga [facility] OCTAVIANO?[facility] 1..84.114 350.1.13.10 4.2.7.2.686 [id number] [facility] 2021-12-24 00:00:00 2021-12-24 00:00:00 Telephone Kelly Reynaga [facility] OCTAVIANO?[facility] OFF[facility] BUILD[facility] 1.84.114 350.1.13.10 4.2.7.2.686 [id number] [facility] 2021-12-24 00:00:00 2021-12-24 00:00:00 Telephone [facility] BUILD[facility] 1.84.114 350.1.13.10 4.2.7.2.686 [id number] [facility] 2021-12-10 00:00:00 2021-12-10 00:00:00 Case Management Anne Martin 1.84.114 350.1.13.10 4.2.7.2.686 [id number] [facility] 2021-12-06 14:00:00 2021-12-06 14:00:00 Outpatient KELLY ZAYAS [facility] [id number] [facility] 2021-11-29 08:00:00 2021-11-29 08:00:00 Outpatient R KELLY REYNAGA [facility] [id number] [facility] 2021-11-18 14:00:00 2021-11-18 14:00:00 Outpatient KELLY ZAYAS [facility] [id number] [facility] 2021-11-16 00:00:00 2021-11-16 00:00:00 Tele[facility] 1.840.114 350.1.13.10 4.2.7.2.686 [id number] [facility] 2021-11-14 14:00:00 2021-11-14 14:00:00 Outpatient KELLY ZAYAS [facility] [id number] [facility] 2021-11-05 14:15:00 2021-11-05 15:07:08 Office [facility] 1.840.114 350.1.13.10 4.2.7.2.686 [id number] [facility] 2021-11-05 14:15:00 2021-11-05 15:07:08 Outpatient [place] PETERSEN [facility] [id number] [facility] 2021-11-05 14:15:00 2021-11-05 14:15:00 Outpatient [place] PETERSEN [facility] [id number] [facility] 2021-11-05 00:00:00 2021-11-05 00:00:00 Orders Only Doctor Unassigned, Granjeno [facility] 1.840.114 350.1.13.10 4.2.7.2.686 [id number] [facility] 2021-10-28 14:00:00 2021-10-28 14:00:00 Outpatient KELLY ZAYAS [facility] [id number] [facility] 2021-10-23 22:47:00 2021-10-24 01:33:00 Emergency X [facility] [id number] [facility] 2021-10-23 22:47:00 2021-10-24 01:33:00 Emergency Malachi Duran R [facility] 1.840.114 350.1.13.10 4.2.7.2.686 [id number] [facility] 2021-10-15 13:30:00 2021-10-15 14:20:44 Outpatient R KELLY REYNAGA [facility] [id number] [facility] 2021-10-15 13:30:00 2021-10-15 14:20:44 [facility] 1.2.840.114 350.1.13.10 4.2.7.2.686 [id number] [facility] 2021-10-15 13:30:00 2021-10-15 14:20:44 Outpatient R KELLY REYNAGA [facility] [id number] [facility] 2021-10-14 16:45:00 2021-10-14 18:51:00 Emergency X Burke [facility] [id number] [facility] 2021-10-14 16:45:00 2021-10-14 18:51:00 Emergency Burke Poseyge [facility] 1.2.840.114 350.1.13.10 4.2.7.2.686 [id number] [facility] 2021-10-14 16:45:00 2021-10-14 18:51:00 Emergency X Burke [facility] [id number] [facility] 2021-10-08 00:00:00 2021-10-08 00:00:00 [facility] 1.2.840.114 350.1.13.10 4.2.7.2.686 [id number] [facility] 2021-10-01 11:30:00 2021-10-01 11:30:00 Outpatient R KELLY REYNAGA [facility] [id number] [facility] 2021-09-16 08:30:00 2021-09-16 08:30:00 [facility] [id number] [facility] 2021-09-16 08:30:00 2021-09-16 08:30:00 Outpatient R KELLY REYNAGA [facility] [id number] [facility] 2021-09-13 09:18:02 2021-09-13 23:59:00 Outpatient R MARLEY CAMARILLO [facility] [id number] [facility] 2021-09-13 09:18:02 2021-09-13 23:59:00 Hospital Encounter Marley Camarillo [facility] 1.840.114 350.1.13.10 4.2.7.2.686 [id number] [facility] 2021-09-13 00:00:00 2021-09-13 00:00:00 Orders Only Doctor Unassigned, Granjeno [facility] 1.840.114 350.1.13.10 4.2.7.2.686 [id number] [facility] 2021-09-03 00:00:00 2021-09-03 00:00:00 Patient Secure Msg Doctor Unassigned, Granjeno [facility] 1.840.114 350.1.13.10 4.2.7.2.686 [id number] [facility] 2021-09-02 14:30:00 2021-09-02 14:30:00 Outpatient R KELLY REYNAGA [facility] [id number] [facility] 2021-08-30 12:00:00 2021-08-30 12:15:00 Pulper Operator Visit Lab, [facility] 1.840.114 350.1.13.10 4.2.7.2.686 [id number] [facility] 2021-08-30 12:00:00 2021-08-30 12:00:00 Outpatient R KELLY REYNAGA [facility] [id number] [facility] 2021-08-30 12:00:00 2021-08-30 12:00:00 Pulper Operator Visit Lab, River Callahan Juhi [facility] OFF[facility] BUILDING 1.2.840.114 350.1.13.10 4.2.7.2.686 [id number] [facility] 2021-08-30 11:30:00 2021-08-30 11:34:07 Office Visit Juhi [facility] 1..840.114 350.1.13.10 4.2.7.2.686 [id number] [facility] 2021-08-30 11:30:00 2021-08-30 11:34:07 Outpatient R KELLY REYNAGA [facility] [id number] [facility] 2021-08-08 10:30:00 2021-08-08 10:30:00 Outpatient KELLY ZAYAS [facility] [id number] [facility] 2021-08-08 00:00:00 2021-08-08 00:00:00 Orders Only Doctor Unassigned, Granjeno [facility] 1.84.114 350.1.13.10 4.2.7.2.686 [id number] [facility] 2021-08-07 13:30:00 2021-08-07 13:30:00 Outpatient R KELLY REYNAGA [facility] [id number] [facility] 2021-07-30 00:00:00 2021-07-30 00:00:00 Patient Secure Msg Doctor Unassigned, Granjeno [facility] 1..114 350.1.13.10 4.2.7.2.686 [id number] [facility] 2021-07-27 00:00:00 2021-07-27 00:00:00 Nurse Triage Susan Aguilera [facility] 1.84.114 350.1.13.10 4.2.7.2.686 [id number] [facility] 2021-07-01 00:00:00 2021-07-01 00:00:00 Telephone Provider, River [facility] 1.84.114 350.1.13.10 4.2.7.2.686 [id number] [facility] 2021-06-28 16:40:00 2021-06-28 17:00:00 Urgent Care PatricViola Celina [facility]ILD[facility] 1.84.114 350.1.13.10 4.2.7.2.686 [id number] [facility] 2021-06-28 16:40:00 2021-06-28 16:40:00 Outpatient VIOLA ROMERO [facility] [id number] [facility] 2021-06-28 00:00:00 2021-06-28 00:00:00 Patient Secure Kelly Zamora [facility] 1.840.114 350.1.13.10 4.2.7.2.686 [id number] [facility] 2021-06-26 09:30:00 2021-06-26 09:45:00 Pulper Operator Visit Pob, Adc Lab Cem Caballero [facility] N[facility] BUILD[facility] 1.84.114 350.1.13.10 4.2.7.2.686 [id number] [facility] 2021-06-26 09:30:00 2021-06-26 09:30:00 Outpatient CEM JAQUEZ [facility] [id number] [facility] 2021-06-26 00:00:00 2021-06-26 00:00:00 Orders Only Doctor Unassigned, Granjeno [facility] 1.2.840.114 350.1.13.10 4.2.7.2.686 [id number] [facility] 2021-06-20 00:00:00 2021-06-20 00:00:00 [facility] 1..840.114 350.1.13.10 4.2.7.2.686 [id number] [facility] 2021-06-14 10:15:00 2021-06-14 10:30:00 Laboratory Only Only, Ang Db Stalin Uribe [facility]ILD[facility] 1..840.114 350.1.13.10 4.2.7.2.686 [id number] [facility] 2021-06-14 10:15:00 2021-06-14 10:15:00 Outpatient R CELINA URIBE [facility] [id number] [facility] 2021-05-30 00:00:00 2021-05-30 00:00:00 Patient Secure Msg Juhi [facility] 1..840.114 350.1.13.10 4.2.7.2.686 [id number] [facility] 2021-05-29 00:00:00 2021-05-29 00:00:00 Outpatient R KELLY REYNAGA [facility] [id number] [facility] 2021-05-29 00:00:00 2021-05-29 00:00:00 Outpatient R KELLY REYNAGA [facility] [id number] [facility] 2021-05-23 14:30:00 2021-05-23 14:45:00 Pulper Operator Visit Lab, River - [place] JohnsonStephenie [facility]ronSelect [facility] 1.2.840.114 350.1.13.10 4.2.7.2.686 [id number] [facility] 2021-05-23 14:30:00 2021-05-23 14:30:00 Outpatient R KELLY REYNAGA [facility] [id number] [facility] 2021-05-23 13:30:00 2021-05-23 14:24:35 Out[facility] [id number] [facility] 2021-05-23 13:30:00 2021-05-23 14:24:35 [facility] 1..840.114 350.1.13.10 4.2.7.2.686 [id number] [facility] 2021-05-23 13:30:00 2021-05-23 14:24:35 Outpatient R KELLY REYNAGA [facility] [id number] [facility] 2021-05-10 09:20:00 2021-05-10 09:43:39 Outpatient R CISCONICKY GARDNER [facility] [id number] [facility] 2021-05-10 09:16:09 2021-05-10 09:26:09 Imm/Inj Visit Vaccine, Ang Db Cbc Fam Unknown, Attending [facility] BU[facility] 1.2.840.114 350.1.13.10 4.2.7.2.686 [id number] [facility] 2021-05-10 09:20:00 2021-05-10 09:20:00 Outpatient R UNKNOWN, ATTENDING [facility] [id number] [facility] 2021-05-09 00:00:00 2021-05-09 00:00:00 Telephone [facility] 1.84114 350.1.13.10 4.2.7.2.686 [id number] [facility] 2021-05-07 13:36:55 2021-05-07 13:56:55 Urgent Care Rony [facility] OCTAVIANO?[facility] OFF[facility] BUILD[facility] 1.114 350.1.13.10 4.2.7.2.686 [id number] [facility] 2021-05-07 13:20:00 2021-05-07 13:20:00 Outpatient R CELINA URIBE [facility] [id number] [facility] 2021-05-07 00:00:00 2021-05-07 00:00:00 [facility] 1.84.114 350.1.13.10 4.2.7.2.686 [id number] [facility] 2021-04-22 12:15:00 2021-04-22 12:15:00 Outpatient Esdras KELLY [facility]GA [facility] [id number] [facility] 2021-04-22 11:24:12 2021-04-22 11:39:12 Pulper Operator Visit Lab, [place] OCTAVIANO?[facility] 1.84.114 350.1.13.10 4.2.7.2.686 [id number] [facility] 2021-04-22 10:30:30 2021-04-22 11:22:34 [facility] 1.84.114 350.1.13.10 4.2.7.2.686 [id number] [facility] 2021-04-22 10:30:00 2021-04-22 11:22:34 Outpatient R KELLY REYNAGA [facility] [id number] [facility] 2021-04-16 10:30:00 2021-04-16 10:30:00 Outpatient R KELLY REYNAGA [facility] [id number] [facility] 2021-04-15 00:00:00 2021-04-15 00:00:00 [facility] OFF[facility] BU[facility] 1.2.840.114 350.1.13.10 4.2.7.2.686 [id number] [facility] 2021-04-15 00:00:00 2021-04-15 00:00:00 [facility] 1.2.840.114 350.1.13.10 4.2.7.2.686 [id number] [facility] 2021-03-27 13:32:13 2021-03-27 13:52:13 Urgent Care Rony [facility] Octaviano?[facility] Medical Office Building 1.2.840.114 350.1.13.10 4.2.7.2.686 [id number] [facility] 2021-03-27 13:30:00 2021-03-27 13:30:00 Outpatient R CELINA [facility] [id number] [facility] 2021-03-18 13:00:00 2021-03-18 13:00:00 Outpatient R SIVAKUMAR [facility]ER [facility] [id number] [facility] 2021-02-07 17:08:23 2021-02-07 17:28:23 Urgent Care Viola Spivey [facility] Octaviano?[facility] Medical Office Building 1.2.840.114 350.1.13.10 4.2.7.2.686 [id number] [facility] 2021-02-07 17:00:00 2021-02-07 17:00:00 Outpatient R CELINA [facility] [id number] [facility] 2021-02-04 00:00:00 2021-02-04 00:00:00 Nurse Triage [facility] 1.2840.114 350.1.13.10 4.2.7.2.686 [id number] [facility] 2021-02-04 00:00:00 2021-02-04 00:00:00 Nurse Triage [facility] 1.2840.114 350.1.13.10 4.2.7.2.686 [id number] [facility] 2021-01-17 18:01:55 2021-01-17 18:21:55 Urgent Care Rajanzakia [facility] Office [facility] 1.840.114 350.1.13.10 4.2.7.2.686 [id number] [facility] 2021-01-17 18:00:00 2021-01-17 18:00:00 Outpatient R FIORPORTIA [facility] [id number] [facility] 2021-01-10 17:55:42 2021-01-10 18:45:04 Urgent Care Diana Bernard [facility] 1.840.114 350.1.13.10 4.2.7.2.686 [id number] [facility] 2021-01-10 17:40:00 2021-01-10 17:40:00 Outpatient R FIORPORTIA [facility] [id number] [facility] 2020-11-15 19:00:00 2020-11-15 19:00:00 Outpatient R [facility] [id number] [facility] 2020-10-26 09:45:00 2020-10-26 23:59:00 Hospital Encounter Kelly Reynaga [facility] 1.20.114 350.1.13.10 4.2.7.2.686 [id number] 2020-10-26 09:45:00 2020-10-26 23:59:00 Hospital Encounter Kelly Reynaga [facility] 1.2840.114 350.1.13.10 4.2.7.2.686 [id number] [facility] 2020-10-26 08:47:17 2020-10-26 09:07:17 Urgent Care Provider, [facility] [address] 1..114 350.1.13.10 4.2.7.2.686 [id number] 2020-10-26 08:47:17 2020-10-26 09:07:17 [facility] 1..114 350.1.13.10 4.2.7.2.686 [id number] [facility] 2020-10-26 09:00:00 2020-10-26 09:00:00 Outpatient R KELLY REYNAGA [facility] [id number] [facility] 2020-10-26 00:00:00 2020-10-26 00:00:00 Telephone Provider, [facility] 1..114 350.1.13.10 4.2.7.2.686 [id number] 2020-10-26 00:00:00 2020-10-26 00:00:00 Orders Only Doctor Unassigned, [facility] 1.2.840.114 350.1.13.10 4.2.7.2.686 [id number] 2020-10-26 00:00:00 2020-10-26 00:00:00 Orders Only Doctor Unassigned, [facility] 1.2.840.114 350.1.13.10 4.2.7.2.686 [id number] [facility] 2020-10-26 00:00:00 2020-10-26 00:00:00 Telephone Provider, [facility] 1.2.840.114 350.1.13.10 4.2.7.2.686 [id number] [facility] 2020-10-17 00:00:00 2020-10-17 00:00:00 Telephone Provider, [facility] 1.2.840.114 350.1.13.10 4.2.7.2.686 [id number] 2020-10-17 00:00:00 2020-10-17 00:00:00 Telephone Provider, [facility] 1.2.840.114 350.1.13.10 4.2.7.2.686 [id number] [facility] 2020-10-16 09:22:16 2020-10-16 10:22:39 Urgent Care Provider, [facility] 1.2.840.114 350.1.13.10 4.2.7.2.686 [id number] 2020-10-16 09:22:16 2020-10-16 10:22:39 Urgent Care Provider, [facility] Kelly Reynaga [facility] 1.2.840.114 350.1.13.10 4.2.7.2.686 [id number] [facility] 2020-10-16 09:00:00 2020-10-16 09:00:00 Outpatient R KELLY REYNAGA [facility] [id number] [facility] 2020-09-19 16:10:00 2020-09-19 08:56:31 Outpatient R STEVE MURO [facility] [id number] [facility] 2020-08-29 16:10:00 2020-08-29 15:31:49 Outpatient R STEVE MURO [facility] [id number] [facility] Results Test Description Test Time [...] or mass effect. The opacified vessels of [place] areunremarkable. The orbits and intraorbital [...] are clear. No acute osseous abnormalities areidentified. [facility] 16:57:53* Test Item Value Reference Range Interpretation Comme nts POCT GLU (test code = 5509612386) 138 mg/dL 70-110 H Lab Interpretation (test cod e = 18659-6) Abnormal [facility] GLUCOSE (AUTOMATED)2023-12-11 16:57:53* Test Item Value Reference Range Interpretation Comme nts POCT GLU (test code = 5883994689) 138 mg/dL 70-110 H Lab Interpretation (test cod e = 26782-2) Abnormal [facility]2024-07-05 14:22:19* Test Item Value Reference Range Interpretation Comme nts MAGNESIUM (test code = 1769899507) 2.2 mg/dL 1.7-2.4 Lab Interpretation (test cod e = 03985-7) Normal [facility]2024-07-05 14:22:19* Test Item Value Reference Range Interpretation Comme nts MAGNESIUM (test code = 7890455462) 2.2 mg/dL 1.7-2.4 Lab Interpretation (test cod e = 72972-4) Normal [facility] GLUCOSE (AUTOMATED)2023-12-11 13:32:45* Test Item Value Reference Range Interpretation Comme nts POCT GLU (test code = 6373354695) 159 mg/dL 70-110 H Lab Interpretation (test cod e = 00413-0) Abnormal [facility] GLUCOSE (AUTOMATED)2023-12-11 13:32:45* Test Item Value Reference Range Interpretation Comme nts POCT GLU (test code = 2539615027) 159 mg/dL 70-110 H Lab Interpretation (test cod e = 56918-5) Abnormal [facility] Metabolic Panel (NA, K, CL, CO2, GLUCOSE, BUN, CREATININE, CA)2023-12-11 11:45:14* Test Item Value Reference Range Interpretation Comme nts NA (test code = 5983961692) 141 mmol/L 135-145 K (test code = 0446087176) 3.9 mmol/L 3.5-5.0 CL (test code = 4353083672) 108 mmol/L 98-108 CO2 TOTAL (test code = 0696109703) 27 mmol/L 23-31 AGAP (test code = 6396168587) 6 2-16 BUN (test code = 8179016849) 12 mg/dL 7-23 GLUCOSE (test code = 6372936494) 173 mg/dL 70-110 H CREATININE (test code = 2160-0) 0.57 mg/dL 0.50-1.04 CALCIUM (test code = 0913337190) 8.7 mg/dL 8.6-10.6 eGFR (test code = 96432-7) 125.6 mL/min/1.73m2 CKD-EPI eGFR (2020). Assuming creatinine has been stable day-to-day for at least three months, the eGFR indicates Category G1 (>= 90 mL/min/1.73 m2) Lab Interpretation (test code = 40089-9) Abnormal [facility] Metabolic Panel (NA, K, CL, CO2, GLUCOSE, BUN, CREATININE, CA)2023-12-11 11:45:14* Test Item Value Reference Range Interpretation Comme nts NA (test code = 8939562371) 141 mmol/L 135-145 K (test code = 7460284930) 3.9 mmol/L 3.5-5.0 CL (test code = 2755591331) 108 mmol/L 98-108 CO2 TOTAL (test code = 3542314955) 27 mmol/L 23-31 AGAP (test code = 2427013413) 6 2-16 BUN (test code = 0025571395) 12 mg/dL 7-23 GLUCOSE (test code = 0062075528) 173 mg/dL 70-110 H CREATININE (test code = 2160-0) 0.57 mg/dL 0.50-1.04 CALCIUM (test code = 4798133605) 8.7 mg/dL 8.6-10.6 eGFR (test code = 78432-6) 125.6 mL/min/1.73m2 CKD-EPI eGFR (2020). Assuming creatinine has been stable day-to-day for at least three months, the eGFR indicates Category G1 (>= 90 mL/min/1.73 m2) Lab Interpretation (test code = 03882-0) Abnormal [facility] [id number] 11:21:13* Test Item Value Reference Range Interpretation [...] 31.8 g/dL 31.6-35.1 RDW-SD (test code = 85196-6) 42.0 fL 39.0-49.9 RDW-CV (test code = 788-0) 12.5 % 12.0-15.5 PLT (test code = 777-3) 333 166-358 MPV (test code = 09591-6) 10.0 fL 9.5-12.9 NRBC/100 WBC (test code = 4946097950) 0.0 0.0-10.0 NRBC x10^3 (test code = 9580631398) See_Comment [Automated message] The system which generated this result transmitted reference range: 10*3/?L. The reference range was not used to interpret this result as normal/abnormal. GRAN MAT (NEUT) % (test code = 770-8) 92.0 % IMM GRAN % (test code = 3725091560) 0.40 % LYMPH % (test code = 736-9) 6.2 % MONO % (test code = 5905-5) 1.3 % EOS % (test code = 713-8) 0.0 % BASO % (test code = 706-2) 0.1 % GRAN MAT x10^3(ANC) (test code = 1114013863) 14.43 10*3/uL 1.88-7.09 H IMM GRAN x10^3 (test code = 9751379081) 0.07 10*3/uL 0.00-0.06 H LYMPH x10^3 (test code = 731-0) 0.97 10*3/uL 1.32-3.29 L MONO x10^3 (test code = 742-7) 0.21 10*3/uL 0.33-0.92 L EOS x10^3 (test code = 711-2) 0.03-0.39 L BASO x10^3 (test code = 704-7) 0.01-0.07 Lab Interpretation (test code = 73885-4) Abnormal [facility] [id number] 11:21:13* Test Item Value Reference Range Interpretation [...] 31.8 g/dL 31.6-35.1 RDW-SD (test code = 76641-8) 42.0 fL 39.0-49.9 RDW-CV (test code = 788-0) 12.5 % 12.0-15.5 PLT (test code = 777-3) 333 166-358 MPV (test code = 24776-9) 10.0 fL 9.5-12.9 NRBC/100 WBC (test code = 6467268596) 0.0 0.0-10.0 NRBC x10^3 (test code = 2062043175) See_Comment [Automated message] The system which generated this result transmitted reference range: 10*3/?L. The reference range was not used to interpret this result as normal/abnormal. GRAN MAT (NEUT) % (test code = 770-8) 92.0 % IMM GRAN % (test code = 2188348394) 0.40 % LYMPH % (test code = 736-9) 6.2 % MONO % (test code = 5905-5) 1.3 % EOS % (test code = 713-8) 0.0 % BASO % (test code = 706-2) 0.1 % GRAN MAT x10^3(ANC) (test code = 7390712377) 14.43 10*3/uL 1.88-7.09 H IMM GRAN x10^3 (test code = 7928589715) 0.07 10*3/uL 0.00-0.06 H LYMPH x10^3 (test code = 731-0) 0.97 10*3/uL 1.32-3.29 L MONO x10^3 (test code = 742-7) 0.21 10*3/uL 0.33-0.92 L EOS x10^3 (test code = 711-2) 0.03-0.39 L BASO x10^3 (test code = 704-7) 0.01-0.07 Lab Interpretation (test code = 52860-9) Abnormal [facility] GLUCOSE (AUTOMATED)2023-12-11 01:23:03* Test Item Value Reference Range Interpretation Comme nts POCT GLU (test code = 4582200552) 168 mg/dL 70-110 H Lab Interpretation (test cod e = 48933-7) Abnormal [facility] GLUCOSE (AUTOMATED)2023-12-11 01:23:03* Test Item Value Reference Range Interpretation Comme nts POCT GLU (test code = 2368139041) 168 mg/dL 70-110 H Lab Interpretation (test cod e = 77075-5) Abnormal [facility] GLUCOSE (AUTOMATED)2023-12-10 22:21:36* Test Item Value Reference Range Interpretation Comme nts POCT GLU (test code = 5341806265) 155 mg/dL 70-110 H Lab Interpretation (test cod e = 84608-1) Abnormal [facility] GLUCOSE (AUTOMATED)2023-12-10 22:21:36* Test Item Value Reference Range Interpretation Comme nts POCT GLU (test code = 4558263630) 155 mg/dL 70-110 H Lab Interpretation (test cod e = 77276-0) Abnormal [facility] GLUCOSE (AUTOMATED)2023-12-10 17:52:15* Test Item Value Reference Range Interpretation Comme nts POCT GLU (test code = 4940436773) 125 mg/dL 70-110 H Lab Interpretation (test cod e = 07155-2) Abnormal [facility] GLUCOSE (AUTOMATED)2023-12-10 17:52:15* Test Item Value Reference Range Interpretation Comme nts POCT GLU (test code = 8034892795) 125 mg/dL 70-110 H Lab Interpretation (test cod e = 08624-2) Abnormal [facility] GLUCOSE (AUTOMATED)2023-12-10 16:37:22* Test Item Value Reference Range Interpretation Comme nts POCT GLU (test code = 9845948551) 114 mg/dL 70-110 H Lab Interpretation (test cod e = 81905-7) Abnormal [facility] GLUCOSE (AUTOMATED)2023-12-10 16:37:22* Test Item Value Reference Range Interpretation Comme nts POCT GLU (test code = 3400508586) 114 mg/dL 70-110 H Lab Interpretation (test cod e = 14137-1) Abnormal [facility] GLUCOSE (AUTOMATED)2023-12-09 14:58:19* Test Item Value Reference Range Interpretation Comme nts POCT GLU (test code = 3396818629) 114 mg/dL 70-110 H Lab Interpretation (test cod e = 93162-6) Abnormal [facility] GLUCOSE (AUTOMATED)2023-12-09 14:58:19* Test Item Value Reference Range Interpretation Comme nts POCT GLU (test code = 8496790463) 114 mg/dL 70-110 H Lab Interpretation (test cod e = 39927-9) Abnormal [facility] Glucose(Age >30days)2023-12-09 14:58:00* Test Item Value Reference Range Interpretation Comme nts POCT Glu (age>30days) (test code = 3342) 114 mg/dL 70-110 A Lab Interpretation (test cod e = 07669-3) Abnormal [facility] Glucose(Age >30days)2023-12-09 14:58:00* Test Item Value Reference Range Interpretation Comme nts POCT Glu (age>30days) (test code = 3342) 114 mg/dL 70-110 A Lab Interpretation (test cod e = 16115-9) Abnormal [facility] [id number] 14:38:00* Test Item Value Reference Range Interpretation Comme nts POCT PREG (test code = 1605) Negative On board controls acceptable with C Line (test code = 3574) Yes POCT PREG LOT # (test code = 3575) POCT PREG TEST DATE ( test code = 3576) Lab Interpretation (test cod e = 63357-5) Normal [facility] Fvtp0584-39-05 14:38:00* Test Item Value Reference Range Interpretation Comme nts POCT PREG (test code = 1605) Negative On board controls acceptable with C Line (test code = 3574) Yes POCT PREG LOT # (test code = 3575) POCT PREG TEST DATE ( test code = 3576) Lab Interpretation (test cod e = 90794-9) Normal [facility] GLUCOSE (AUTOMATED)2023-11-12 13:30:37* Test Item Value Reference Range Interpretation Comme nts POCT GLU (test code = 5589380030) 110 mg/dL 70-110 Lab Interpretation (test cod e = 77707-0) Normal [facility] GLUCOSE (AUTOMATED)2023-11-12 13:30:37* Test Item Value Reference Range Interpretation Comme nts POCT GLU (test code = 8745457712) 110 mg/dL 70-110 Lab Interpretation (test cod e = 57313-0) Normal [facility] Dpqi2414-59-81 13:19:00* Test Item Value Reference Range Interpretation Comme nts POCT PREG (test code = 1605) Negative On board controls acceptable with C Line (test code = 3574) Yes POCT PREG LOT # (test code = 3575) POCT PREG TEST DATE ( test code = 3576) [facility] [id number] 13:19:00* Test Item Value Reference Range Interpretation Comme nts POCT PREG (test code = 1605) Negative On board controls acceptable with C Line (test code = 3574) Yes POCT PREG LOT # (test code = 3575) POCT PREG TEST DATE ( test code = 3576) [facility] 23:12:38* Test Item Value Reference Range Interpretation Comme nts Height (test code = 5366971208) 60 in Weight (test code = 1518402928) 204 lbs Systolic BP (test code = 2941402392) 108 mmHg Diastolic BP (test code = 4335903703) 72 mmHg Heart Rate (test code = 4957132833) 102 bpm RVOT diameter (test code = 0473837189) 1.76 cm RVOT Proximal Diameter (test code = 3959574450) 2.16 cm MR max PG (test code = 5371574599) 42.80 mm[Hg] MR max camila (test code = 0700217107) 327.20 cm/s Ao root diam (test code = 5437150002) 2.42 cm Mr max camila (test code = 7380362432) 327.2 m/s Aortic root (test code = 3487815421) 2.42 cm Ao root annulus (test code = 8872526522) 2.42 cm BSA (test code = 9628848924) 1.88 m2 LVOT diameter (test code = 5020294992) 1.54 cm LVOT area (test code = 3069878058) 1.86 cm2 LA size (test code = 1401904869) 2.8 cm ACS (test code = 9674864878) 1.90 cm LVIDD (test code = 1846404808) 4.50 cm Left Ventricular End Diastolic Volume by Teichholz Method (test code = 3450408) 94.3 mL IVS (test code = 3570090995) 0.85 cm Interventricular Septum Diastolic Thickness by 2D (test code = 6695375) 0.85 cm LVPWD (test code = 2506012067) 0.81 cm PW (test code = 1502848611) 0.81 cm 0.6-1.1 EF(Teich) (test code = 0281091281) 55.10 % LVIDS (test code = 6717150354) 3.20 cm Left Ventricular End Systolic Volume by Teichholz Method (test code = 6350029) 42.4 mL FS (test code = 3304171617) 29 % EF - 2D (test code = 85727725) 55.10 % TR Peak Camila (test code = 5236403338) 267.9 cm/s Triscuspid Valve Regurgitation Peak Gradient (test code = 0533441611) 28.7 mmHg PV PEAK VELOCITY (test code = 1225426540) 96.9 cm/s PV peak gradient (test code = 9264695215) 3.8 mmHg MV E-F slope (test code = 9705645148) 43.60 cm/s MV Peak E Camila (test code = 7320386104) 103.2 cm/s MV Peak A Camila (test code = 1310243769) 78.6 cm/s E/A ratio (test code = 2868411843) 1.31 ratio MV valve area p 1/2 method (test code = 5478194115) 8.70 cm2 MV dec slope (test code = 4149735974) 1197.00 cm/s2 MV P1/2t max camila (test code = 3425683145) 103.80 cm/s LVOT stroke volume (test code = 4924745756) 34.20 cm3 LVOT peak camila (test code = 1262378867) 99.6 cm/s LVOT mn grad (test code = 3665971064) 1.7 mmHg AV LVOT peak gradient (test code = 0631586466) 4.0 mmHg LVOT peak VTI (test code = 8144636297) 18.4 cm LV V1 mean (test code = 5857804713) 59.30 cm/s Aortic valve mean velocity (test code = 2766872138) 79.3 cm/s Ao peak camila (test code = 8185924338) 136.4 cm/s Ao VTI (test code = 4039924075) 26.5 cm AV area by cont VTI (test code = 0372477559) 1.3 cm2 AV area peak camila (test code = 4863049852) 1.4 cm2 Ao max PG (test code = 9992135346) 7.40 mm[Hg] AV peak gradient (test code = 9984739357) 7.4 mmHg AV valve area (test code = 3589412321) 1.29 cm2 AV mean gradient (test code = 3597186459) 3.0 mmHg LAV(MOD-sp4) (test code = 8802421313) 15.30 mL LA Volume Index (BP) (test code = 1993532085) 8.6 mL/m2 LA volume (BP) (test code = 3350298694) 16.2 mL LAV(MOD-sp2) (test code = 5653059762) 17.10 mL A4C EF (test code = 6017997652) 60.00 % EF(sp4-el) (test code = 3771726138) 60.80 % SV(MOD-sp4) (test code = 6017264683) 28.80 mL SV(sp4-el) (test code = 2322544043) 29.80 mL RVOT area (test code = 1055628762) 2.43 cm2 Radiology Study observation (narrative) (test code = 21622-3) MIKE (test code = MIKE) ?Left?Ventricle: Left [...] 2D, color flow Doppler and spectral Doppler. [facility] Urinalysis W Specific Nazwvhc2642-39-09 22:57:00* Test Item Value Reference Range Interpretation [...] 3267) Lab Interpretation (test cod e = 51550-6) Abnormal [facility] Urinalysis W Specific Aeainhl7414-54-63 22:57:00* Test Item Value Reference Range Interpretation [...] 3267) Lab Interpretation (test cod e = 11762-3) Abnormal [facility] Pmsb8696-85-71 22:56:00* Test Item Value Reference Range Interpretation Comme nts POCT PREG (test code = 1605) Negative On board controls acceptable with C Line (test code = 3574) Yes POCT PREG LOT # (test code = 3575) POCT PREG TEST DATE ( test code = 357) Lab Interpretation (test cod e = 57441-4) [facility] T[facility]x9388-[facility]-95 22:56:00* Test Item Value Reference Range Interpretation Comme nts POCT PREG (test code = 1605) Negative On board controls acceptable with C Line (test code = 3574) Yes POCT PREG LOT # (test code = 3575) POCT PREG TEST DATE ( test code = 3576) Lab Interpretation (test cod e = 68784-7) [facility], [id number] 01:22:28* Test Item Value Reference Range Interpretation Comme nts VIT B12 (test code = 2188912477) 260 pg/mL 240-930 MIKE (test code = MIKE) Biotin has been reported to cause a positive bias, interpret results relative to patient's use of biotin. Lab Interpretation (test code = 38173-9) [facility] [id number] 01:22:28* Test Item Value Reference Range Interpretation Comme nts VIT B12 (test code = 6622288966) 260 pg/mL 240-930 MIKE (test code = MIKE) Biotin has been reported to cause a positive bias, interpret results relative to patient's use of biotin. Lab Interpretation (test code = 44038-6) Normal [facility]IM[facility]ATING [id number] 00:06:36 * Test Item Value Reference Range Interpretation Comme nts TSH (test code = 7879624984) 1.50 See_Comment [Automated messa ge] The system which generated this result transmitted reference range: 0.45 - 4.70 mIU/L. The reference range was not used to interpret this result as normal/abnormal. Lab Interpretation (test code = 79084-8) [facility] [id number] 00:06:36 * Test Item Value Reference Range Interpretation Comme nts TSH (test code = 1388271420) 1.50 See_Comment [Automated messa ge] The system which generated this result transmitted reference range: 0.45 - 4.70 mIU/L. The reference range was not used to interpret this result as normal/abnormal. Lab Interpretation (test code = 81327-4) [facility]OL[facility] (14622)2023-05-15 23:37:48* Test Item Value Reference Range Interpretation Comme nts NA (test code = 5549260233) 142 mmol/L 135-145 K (test code = 8946011281) 3.9 mmol/L 3.5-5.0 CL (test code = 3294980134) 105 mmol/L 98-108 CO2 TOTAL (test code = 5632822440) 26 mmol/L 23-31 AGAP (test code = 2090240661) 11 2-16 BUN (test code = 2069881026) 6 mg/dL 7-23 L GLUCOSE (test code = 7686508333) 109 mg/dL 70-110 CREATININE (test code = 4585213930) 0.67 mg/dL 0.50-1.04 TOTAL BILI (test code = 1931658801) 0.5 mg/dL 0.1-1.1 CALCIUM (test code = 6069603863) 9.3 mg/dL 8.6-10.6 T PROTEIN (test code = 3366142909) 7.3 g/dL 6.3-8.2 ALBUMIN (test code = 0923969079) 3.9 g/dL 3.5-5.0 ALK PHOS (test code = 9378833247) 210 U/L 34-122 H ALTv (test code = 1742-6) 30 U/L 5-35 AST(SGOT) (test code = 9498287738) 19 U/L 13-40 eGFR (test code = 30735-1) 121.5 mL/min/1.73m2 CKD-EPI eGFR (2020). Assuming creatinine has been stable day-to-day for at least three months, the eGFR indicates Category G1 (>= 90 mL/min/1.73 m2) Lab Interpretation (test code = 61656-9) [facility] 23:37:48* Test Item Value Reference Range Interpretation Comme nts MAGNESIUM (test code = 8010131851) 2.0 mg/dL 1.7-2.4 Lab Interpretation (test cod e = 20547-6) [facility]OL[facility] (51394)2023-05-15 23:37:48* Test Item Value Reference Range Interpretation Comme nts NA (test code = 9118485234) 142 mmol/L 135-145 K (test code = 2683260750) 3.9 mmol/L 3.5-5.0 CL (test code = 6870668756) 105 mmol/L 98-108 CO2 TOTAL (test code = 0965817571) 26 mmol/L 23-31 AGAP (test code = 8759131318) 11 2-16 BUN (test code = 7761813677) 6 mg/dL 7-23 L GLUCOSE (test code = 9897000202) 109 mg/dL 70-110 CREATININE (test code = 3340606716) 0.67 mg/dL 0.50-1.04 TOTAL BILI (test code = 5351850507) 0.5 mg/dL 0.1-1.1 CALCIUM (test code = 9576515298) 9.3 mg/dL 8.6-10.6 T PROTEIN (test code = 3165566572) 7.3 g/dL 6.3-8.2 ALBUMIN (test code = 5039009229) 3.9 g/dL 3.5-5.0 ALK PHOS (test code = 5027211973) 210 U/L 34-122 H ALTv (test code = 1742-6) 30 U/L 5-35 AST(SGOT) (test code = 0565731110) 19 U/L 13-40 eGFR (test code = 12944-8) 121.5 mL/min/1.73m2 CKD-EPI eGFR (2020). Assuming creatinine has been stable day-to-day for at least three months, the eGFR indicates Category G1 (>= 90 mL/min/1.73 m2) Lab Interpretation (test code = 87185-0) [facility] 23:37:48* Test Item Value Reference Range Interpretation Comme nts MAGNESIUM (test code = 5472833631) 2.0 mg/dL 1.7-2.4 Lab Interpretation (test cod e = 01570-3) Normal [facility] WITH [id number] 23:13:22* Test Item Value Reference Range Interpretation [...] 33.3 g/dL 31.6-35.1 RDW-SD (test code = 52950-6) 42.5 fL 39.0-49.9 RDW-CV (test code = 788-0) 12.9 % 12.0-15.5 PLT (test code = 777-3) 364 See_Comment H [Automated [employer]] The system which generated this result transmitted reference range: 166 - 358 10*3/?L. The reference range was not used to interpret this result as normal/abnormal. MPV (test code = 39809-6) 10.7 fL 9.5-12.9 NRBC/100 WBC (test code = 6529797591) 0.0 See_Comment [Automated [employer] ssage] The system which generated this result transmitted reference range: 0.0 - 10.0 /100 WBCs. The reference range was not used to interpret this result as normal/abnormal. NRBC x10^3 (test code = 0520901785) See_Comment [Automated messa ge] The system which generated this result transmitted reference range: 10*3/?L. The reference range was not used to interpret this result as normal/abnormal. GRAN MAT (NEUT) % (test code = 770-8) 76.9 % IMM GRAN % (test code = 1142338333) 0.20 % LYMPH % (test code = 736-9) 17.2 % MONO % (test code = 5905-5) 4.5 % EOS % (test code = 713-8) 0.7 % BASO % (test code = 706-2) 0.5 % GRAN MAT x10^3(ANC) (test code = 8660421978) 9.46 10*3/uL 1.88-7.09 H IMM GRAN x10^3 (test code = [id number]) 0.03 10*3/uL 0.00-0.06 LYMPH x10^3 (test code = 731-0) 2.11 10*3/uL 1.32-3.29 MONO x10^3 (test code = 742-7) 0.55 10*3/uL 0.33-0.92 EOS x10^3 (test code = 711-2) 0.08 10*3/uL 0.03-0.39 BASO x10^3 (test code = 704-7) 0.06 10*3/uL 0.01-0.07 Lab Interpretation (test code = 30430-7) Abnormal [facility] WITH [id number] 23:13:22* Test Item Value Reference Range Interpretation [...] 33.3 g/dL 31.6-35.1 RDW-SD (test code = 90963-2) 42.5 fL 39.0-49.9 RDW-CV (test code = 788-0) 12.9 % 12.0-15.5 PLT (test code = 777-3) 364 See_Comment H [Automated messa ge] The system which generated this result transmitted reference range: 166 - 358 10*3/?L. The reference range was not used to interpret this result as normal/abnormal. MPV (test code = 08371-7) 10.7 fL 9.5-12.9 NRBC/100 WBC (test code = [id number]) 0.0 See_Comment [Automated me ssage] The system which generated this result transmitted reference range: 0.0 - 10.0 /100 WBCs. The reference range was not used to interpret this result as normal/abnormal. NRBC x10^3 (test code = 4478801341) See_Comment [Automated messa ge] The system which generated this result transmitted reference range: 10*3/?L. The reference range was not used to interpret this result as normal/abnormal. GRAN MAT (NEUT) % (test code = 770-8) 76.9 % IMM GRAN % (test code = 5388405307) 0.20 % LYMPH % (test code = 736-9) 17.2 % MONO % (test code = 5905-5) 4.5 % EOS % (test code = 713-8) 0.7 % BASO % (test code = 706-2) 0.5 % GRAN MAT x10^3(ANC) (test code = 9587114484) 9.46 10*3/uL 1.88-7.09 H IMM GRAN x10^3 (test code = 6408873647) 0.03 10*3/uL 0.00-0.06 LYMPH x10^3 (test code = 731-0) 2.11 10*3/uL 1.32-3.29 MONO x10^3 (test code = 742-7) 0.55 10*3/uL 0.33-0.92 EOS x10^3 (test code = 711-2) 0.08 10*3/uL 0.03-0.39 BASO x10^3 (test code = 704-7) 0.06 10*3/uL 0.01-0.07 Lab Interpretation (test code = 09685-4) [id number] [facility]:00:00* Test Item Value Reference Range Interpretation Comme nts POCT PREG (test code = 1605) Negative On board controls acceptable with C Line (test code = 3574) Yes POCT PREG LOT # (test code = 3575) POCT PREG TEST DATE ( test code = 3576) [facility] [id number] 21:00:00* Test Item Value Reference Range Interpretation Comme nts POCT PREG (test code = 1605) Negative On board controls acceptable with C Line (test code = 3574) Yes POCT PREG LOT # (test code = 3575) POCT PREG TEST DATE ( test code = 3576) [facility], [id number] 18:48:52* Test Item Value Reference Range Interpretation Comme nts NTX SERUM (test code = 86240-1) 12.3 nM BCE INTERPRETIVE INF ORMATION: N-Telopeptide, Cross-Linked, Serum ?Adult Male.......................5.4 - 24.2 nM BCE ?Premenopausal Adult Female.......6.2 - 19.0 nM BCE The target value for treated post-menopausal adult females is the same as the premenopausal reference interval. BCE = Bone Collagen EquivalentPerformed By: [facility] [place] [address] [id number] Director: Jc Albarran MD, PhDCLIA Number: [id number] [facility]ELOPEPTIDE, [id number] 18:48:52* Test Item Value Reference Range Interpretation Comme nts NTX SERUM (test code = 04548-6) 12.3 nM BCE INTERPRETIVE INF ORMATION: N-Telopeptide, Cross-Linked, Serum ?Adult Male.......................5.4 - 24.2 nM BCE ?Premenopausal Adult Female.......6.2 - 19.0 nM BCE The target value for treated post-menopausal adult females is the same as the premenopausal reference interval. BCE = Bone Collagen EquivalentPerformed By: [facility] [place] [address] [id number] Director: Jc Albarran MD, PhDCLIA Number: [id number] [facility] HospitalINTACT PTH CALCIUM [id number] 20:29:31* Test Item Value Reference Range Interpretation Comme nts PTH-INTACT (test code = 1493935947) 34.9 pg/mL 12.0-88.0 PTH-CA Interpretation (test code = 9695098949) PTH IS Approp[employer] te for Calcium CALCIUM (test code = 8718565964) 9.8 mg/dL 8.6-10.6 [facility] HospitalINTACT PTH CALCIUM [id number] 20:29:31* Test Item Value Reference Range Interpretation Comme nts PTH-INTACT (test code = 9084624698) 34.9 pg/mL 12.0-88.0 PTH-CA Interpretation (test code = 1983630737) PTH IS [employer]rop[employer] te for Calcium CALCIUM (test code = 1625358816) 9.8 mg/dL 8.6-10.6 [facility] HospitalVITAMIN D, [id number] 07:21:15* Test Item Value Reference Range Interpretation Comme nts VIT D 25OH (test code = 12243-1) 14 ng/mL 25-80 L MIKE (test code = MIKE) Deficiency: <20 ng/mLInsufficiency: 20-24 ng/mLOptimal: 25-80 ng/mL Lab Interpretation (test code = 56759-1) Abnormal [facility] Hospital[facility] D, [id number] 07:21:15* Test Item Value Reference Range Interpretation Comme nts VIT D 25OH (test code = 42854-8) 14 ng/mL 25-80 L MIKE (test code = MIKE) Deficiency: <20 ng/mLInsufficiency: 20-24 ng/mLOptimal: 25-80 ng/mL Lab Interpretation (test code = 59800-4) Abnormal [facility] Hospital[facility]IT[facility]IN D, [id number] 07:21:15* Test Item Value Reference Range Interpretation Comme nts VIT D 25OH (test code = 70974-4) 14 ng/mL 25-80 L MIKE (test code = MIKE) Deficiency: <20 ng/mLInsufficiency: 20-24 ng/mLOptimal: 25-80 ng/mL Lab Interpretation (test code = 63686-2) Abnormal [facility] Hospital[facility]IT[facility] D, [id number] 07:21:15* Test Item Value Reference Range Interpretation Comme nts VIT D 25OH (test code = 84284-6) 14 ng/mL 25-80 L MIKE (test code = MIKE) Deficiency: <20 ng/mLInsufficiency: 20-24 ng/mLOptimal: 25-80 ng/mL Lab Interpretation (test code = 41408-8) Abnormal [facility] HospitalALKALINE PHOSPHATASE, [id number] 06:51:12 * Test Item Value Reference Range Interpretation Comme nts ALK PHOS (test code = 4681302643) 224 U/L 34-122 H Lab Interpretation (test cod e = 15797-2) Abnormal [facility] HospitalALKALINE PHOSPHATASE, [id number] 06:51:12 * Test Item Value Reference Range Interpretation Comme nts ALK PHOS (test code = 5097033780) 224 U/L 34-122 H Lab Interpretation (test cod e = 96026-9) Abnormal [facility] HospitalALKALINE PHOSPHATASE, [id number] 06:51:12 * Test Item Value Reference Range Interpretation Comme nts ALK PHOS (test code = 8515815624) 224 U/L 34-122 H Lab Interpretation (test cod e = 90267-9) Abnormal [facility] HospitalALKALINE PHOSPHATASE, [id number] 06:51:12 * Test Item Value Reference Range Interpretation Comme nts ALK PHOS (test code = 2130677353) 224 U/L 34-122 H Lab Interpretation (test cod e = 81760-0) Abnormal [facility]PO[facility] [id number] 18:43:00* Test Item Value Reference Range Interpretation Comme nts POCT PREG (test code = 1605) Negative On board controls acceptable with C Line (test code = 3574) Yes POCT PREG LOT # (test code = 3575) POCT PREG TEST DATE ( test code = 3576) Lab Interpretation (test cod e = 30881-9) Normal [facility] [id number] 18:43:00* Test Item Value Reference Range Interpretation Comme nts POCT PREG (test code = 1605) Negative On board controls acceptable with C Line (test code = 3574) Yes POCT PREG LOT # (test code = 3575) POCT PREG TEST DATE ( test code = 3576) Lab Interpretation (test cod e = 96151-5) Normal [facility] URINALYSIS W SPECIFIC [id number] 18:36:00* Test Item Value Reference Range Interpretation [...] U APPEAR (test code = 3267) CLOUDY [facility] URINALYSIS W SPECIFIC [id number] 18:36:00* Test Item Value Reference Range Interpretation [...] U APPEAR (test code = 3267) CLOUDY [facility] [id number] 13:52:00* Test Item Value Reference Range Interpretation Comme nts POCT PREG (test code = 1605) Negative On board controls acceptable with C Line (test code = 3574) Yes POCT PREG LOT # (test code = 3575) POCT PREG TEST DATE ( test code = 3576) [facility] [id number] 13:52:00* Test Item Value Reference Range Interpretation Comme nts POCT PREG (test code = 1605) Negative On board controls acceptable with C Line (test code = 3574) Yes POCT PREG LOT # (test code = 3575) POCT PREG TEST DATE ( test code = 3576) [facility] [id number] 15:52:00* Test Item Value Reference Range Interpretation Comme nts POCT PREG (test code = 1605) Negative On board controls acceptable with C Line (test code = 3574) Yes POCT PREG LOT # (test code = 3575) POCT PREG TEST DATE ( test code = 3576) [facility] [id number] 15:52:00* Test Item Value Reference Range Interpretation Comme nts POCT PREG (test code = 1605) Negative On board controls acceptable with C Line (test code = 3574) Yes POCT PREG LOT # (test code = 3575) POCT PREG TEST DATE ( test code = 3576) [facility] [id number] 20:30:00* Test Item Value Reference Range Interpretation Comme nts POCT PREG (test code = 1605) Negative On board controls acceptable with C Line (test code = 3574) Yes POCT PREG LOT # (test code = 3575) POCT PREG TEST DATE ( test code = 3576) [facility] [id number] 20:30:00* Test Item Value Reference Range Interpretation Comme nts POCT PREG (test code = 1605) Negative On board controls acceptable with C Line (test code = 3574) Yes POCT PREG LOT # (test code = 3575) POCT PREG TEST DATE ( test code = 3576) [facility] [id number] 16:46:00* Test Item Value Reference Range Interpretation Comme nts POCT PREG (test code = 1605) Negative On board controls acceptable with C Line (test code = 3574) Yes POCT PREG LOT # (test code = 3575) POCT PREG TEST DATE ( test code = 3576) [facility] [id number] 16:46:00* Test Item Value Reference Range Interpretation Comme nts POCT PREG (test code = 1605) Negative On board controls acceptable with C Line (test code = 3574) Yes POCT PREG LOT # (test code = 3575) POCT PREG TEST DATE ( test code = 3576) [facility] WITH [id number] 22:18:20* Test Item Value Reference Range Interpretation Comme nts WBC (test code = 6690-2) See_Comment H [Automated messa ge] The system which generated this result transmitted reference range: 4.30 - 11.10 10*3/?L. The reference range was not used to interpret this result as normal/abnormal. RBC (test code = 789-8) See_Comment [Automated Pump!a ge] The system which generated this result [...] g/dL 31.6-35.1 L RDW-SD (test code = 37636-9) 44.1 fL 39-49.9 RDW-CV (test code = 788-0) 14.9 % 12-15.5 PLT (test code = 777-3) See_Comment H [Automated messa ge] The system which generated this result transmitted reference range: 166 - 358 10*3/?L. The reference range was not used to interpret this result as normal/abnormal. MPV (test code = 35205-0) 9.3 fL 9.5-12.9 L NRBC/100 WBC (test code = 4102436512) See_Comment [Automated [employer] ssage] The system which generated this result transmitted reference range: 0.0 - 10.0 /100 WBCs. The reference range was not used to interpret this result as normal/abnormal. NRBC x10^3 (test code = 5863336878) See_Comment [Automated Pump!a ge] The system which generated this result transmitted reference range: 10*3/?L. The reference range was not used to interpret this result as normal/abnormal. GRAN MAT (NEUT) % (test code = 770-8) 74.6 % IMM GRAN % (test code = 0496472483) 0.50 % LYMPH % (test code = 736-9) 18.8 % MONO % (test code = 5905-5) 4.9 % EOS % (test code = 713-8) 0.7 % BASO % (test code = 706-2) 0.5 % GRAN MAT x10^3(ANC) (test code = 5691353770) 9.22 10*3/uL 1.88-7.09 H IMM GRAN x10^3 (test code = 2602857751) 0.06 10*3/uL 0-0.06 LYMPH x10^3 (test code = 731-0) 2.33 10*3/uL 1.32-3.29 MONO x10^3 (test code = 742-7) 0.61 10*3/uL 0.33-0.92 EOS x10^3 (test code = 711-2) 0.09 10*3/uL 0.03-0.39 BASO x10^3 (test code = 704-7) 0.06 10*3/uL 0.01-0.07 Lab Interpretation (test code = 03953-5) Abnormal [facility] HospitalHEMOGLOBIN [id number] 06:32:55* Test Item Value Reference Range Interpretation Comme nts HEMOGLOBIN A1c (test code = 85823) 7.0 % 4.2-5.6 H [employer] GUIDELINES FOR HGB A1C: [...] CONSULTATION. UNLESS OTHERWISE INDICATED, ALL TESTING PERFORMED [facility] [address] [place] [address] DIRECTOR OF MATH: WILLY RAMOS M.D. CLIA NUMBER [id number] [facility] [place]. [id number] Consult Notes Date/Time Note Provider Source 2023-12-10 [...] LARYNGOSCOPYEXAM UNDER ANESTHESIA ORAL CAVITY Laura Martínez (Primary)Sindy Pascual H Discharged 12/09/2023 HYOID SUSPENSIONUVULOPHARYNGOPALATOPLASY Laura Martínez (Primary)Pascual [...] N/A 11/12/2023 Surgeon: Laura Martínez DDS; Location: [facility] Social History Socioeconomic History Marital [...] 20 min Stress: Stress Concern Present (12/05/2023) [place] [facility] [employer] [facility] - Occupational Stress Questionnaire Feeling of Stress : Very much Social Connections: Moderately Integrated (12/05/2023) Social Connection and Isolation Panel [NHANES] Frequency of Communication with Friends and Family: Three times a week Frequency of Social Gatherings with Friends and Family: More than three times a week Attends Adventist Services: More than 4 times per year [...] 19 ORAL) Take by mouth. Doctor Unassigned, [place] semaglutide (OZEMPIC) 1 mg/dose (4 mg/3 mL) PnVega inject 1 mg under the skin weekly. 10/21/23 Tian Caro MD propranoloL 10 mg tablet Take 1 tablet by mouth at bedtime. 09/22/23 09/21/24 Blake Pelletier MD Cholecalciferol, Vitamin D3, (VITAMIN D3) 50 mcg (2,000 unit) tablet Take 1 tablet by mouth in the morning. 07/23/23 Obey Cage, AGENCY MANAGER-BC DNP hydrOXYzine 25 mg tablet Take 1 tablet by mouth every 6 (six) hours as needed for Itching. 05/19/22 Nishant Chapman MD ketoconazole 2 % cream Apply to area(s) 2 (two) times daily. 05/19/22 Nishant Chapman MD triamcinolone acetonide 0.1 % cream Apply to area(s) 2 (two) times daily. 05/19/22 Nishant Chapman MD ferrous sulfate (IRON ORAL) Take by mouth. Doctor Unassigned, [place] chlorhexidine 0.12 % mouthwash 10/02/20 Doctor Unassigned, [place] Current Medications: Scheduled meds:insulin lispro (human), , [...] intake Lyle Hooker MD, Surgical Co-Management Hospitalist Heat Treating Operator General Internal Medicine Portions of this note [...] Ordering referrals and/or communicating with other health medicare sales representative (when not separately reported), Documenting clinical information in the electronic or other health record, Independently interpreting results (not separately reported) and/or communicating results to the patient/family/caregiver, and Care coordination (not separately reported). I spent approx 76 minutes. 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 Patient is s/p STEPHANIE, HS on 12/11/23 for moderate FAWN. Patient reports improvement in sleep with occasional snoring. She had an episode of blood tinged saliva and presented to [facility] ED and was DC without incident. Histories [...] 0 min Stress: Stress Concern Present (12/05/2023) [place] [employer] [facility] - Occupational Stress Questionnaire Feeling of Stress : Very much Social Connections: Moderately Integrated (12/10/2023) Social Connection and Isolation Panel [NHANES] Frequency of Communication with Friends and Family: More than three times a week Frequency of Social Gatherings with Friends and Family: More than three times a week Attends Adventist Services: More than 4 times per year [...] soft tissues are identified. 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 Patient is s/p STEPHANIE, HS on 12/11/23 [...] Reconstruction Department of Surgery | Division of single ending machine operator [facility] 2023-12-09 07:21:07 single ending machine operator Clinic note Chief Complaint: FAWN HPI Rosanne Resendiz is a 28 year old female presenting for FAWN evaluation. She has tried CPAP but cannot tolerate it. She is interested in surgical intervention. Interval HPI 12/09/23 [facility] her scheduled procedure. Denies any [...] Laura Martínez DDS; Location: [facility] FOOT ORIF (SHX) LARYNGOSCOPY (SHX) N/A 11/12/2023 Surgeon: Laura Martínez DDS; Location: [facility] Family History Problem Relation Age of Onset [...] 20 min Stress: Stress Concern Present (12/05/2023) [place] [facility] [employer] - Occupational Stress Questionnaire Feeling of Stress : Very much Social Connections: Moderately Integrated (12/05/2023) Social Connection and Isolation Panel [NHANES] Frequency of Communication with Friends and Family: Three times a week Frequency of Social Gatherings with Friends and Family: More than three times a week Attends Adventist Services: More than 4 times per year [...] see the Resident's note for additional details. 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 Chief Complaint: FAWN HPI Rosanne [...] N/A 11/12/2023 Surgeon: Laura Martínez DDS; Location: [facility] FOOT ORIF (SHX) LARYNGOSCOPY (SHX) N/A 11/12/2023 Surgeon: Laura Martínez DDS; Location: [facility] OR LOCATION Family History Problem Relation Age [...] 20 min Stress: Stress Concern Present (12/05/2023) [place] [facility] - Occupational Stress Questionnaire Feeling of Stress : Very much Social Connections: Moderately Integrated (12/05/2023) Social Connection and Isolation Panel [NHANES] Frequency of Communication with Friends and Family: Three times a week Frequency of Social Gatherings with Friends and Family: More than three times a week Attends Adventist Services: More than 4 times per year [...] Reconstruction Department of Surgery | 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 Please see the Resident's note for additional details. 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 Patient advised to give clinic another call if she has any more trouble. [facility] 2024-02-19 13:02:18 I do not have an order form for this -Susan please verify PARA EDUCATOR-FAMILY MIDLEVEL PROVIDER [facility] 2024-02-17 13:35:33 Will retrieve paperwork and complete form. Lulu Parsons MA [facility] 2024-02-17 11:30:07 Images from the original note were not included. Sivakumar Neville [facility] 2024-02-17 08:53:03 Please review and send in order if appropriate [facility] 2024-02-16 17:11:00 Regardin+ blood sugar ----- Message from Shraddha Vera sent at 02/16/2024 5:09 PM CDT ----- Pt states blood sugar has been out of control. Pt states she checked this morning and it was over 300. Placed TE to clinic she has been waiting since the for her omnipod orders. No other symptoms but being tired. Katie Ibarra RN [facility] 2024-02-16 17:11:00 Nurse's Note: 5:12 PM Rosanne [...] row Protocols used: Diabetes - High Blood Dfnnq-SXRIP-RM Disposition: After assessment and triage, patient advised to see provider within 4 hours and directed to the ED for evaluation. Follow up appointment scheduled on 02/18/24 at 0930 at PCP clinic. Patient agreed to disposition. Katie Ibarra RN 02/16/2024 5:27 PM [facility] 2024-02-16 16:57:46 Rosanne Resendiz is a 28 year old female Pt calling in to f/u on order form from [facility] pharmacy requestin Omnipod Dash. Please send in orders. Pt has been waiting since 02.01.24 and they are saying they never received it. Pt states she needs this for her blood sugar and her blood sugar has been out of control. Please advise and contact pt [phone] (home) Shraddha Vera [facility] 2024-02-01 10:11:50 Received order form from [facility] pharmacy requestin Omnipod Dash, provider signature required, placed in providers box for review. Cecille Paez [facility] 2024-01-29 09:41:01 Spoke with Shraddha / [facility] Raymond and relayed the information per Kelly Reynaga DNP. She stated that she would make a note. Lara Simmons RN [facility] 2024-01-28 17:37:45 Did she maybe discus this with Nicky at recent visit- she did not see me last and we have not discussed this. PARA EDUCATOR-FAMILY MIDLEVEL PROVIDER [facility] 2024-01-28 11:04:00 Loraine griggs/ [facility] Pharmacies calling to check the status of the order. Please Advise. Janis Peralta [facility] 2024-01-27 15:55:03 Please review and advise. LOS 01/14/24 NOV 06/17/24 Monica Fernando LVN [facility] 2024-01-27 15:39:37 Rosanne Resendiz is a 28 year old female and Eliza with [facility] Pharmacy is calling asking if a verbal prescription order can be given for the pt. Jamary had faxed over forms for the order on 01/04/24 as well. Pt is asking to order the Omnipod Dash a insulin controller. Nisha Whiting [facility] 2024-01-25 07:05:53 PA not required: The Community and State Medicaid Prior Authorization Team is not able to review this request because the brand name for the requested product is preferred on the formulary and is covered without prior authorization requirements. Patient notified of outcome and encouraged to contact pharmacy to provide an update. Monica Fernando KITCHENHAND [facility] 2024-01-18 12:29:19 PA initiated on 01/18/2024: Barillsa: [id number] PA Will provide updates as recd Monica Fernando KITCHENHAND [facility] 2024-01-15 14:16:34 Images from the original note were not included. Receive PA Barillas Code below and have placed in provider's box. Ni Dietz [facility] 2024-01-14 13:15:00 Images from the original note were not included. Venipuncture collection performed by clean technique on the right anticubitus. Total of 1 attempts were made. Slight pressure and a bandage/dressing were applied to the site(s). The patient experienced no complications. The following specimens were processed according to instructions and [facility] to [facility] per lab order on 01/14/2024 : LT BLUE SST 1 RED LAV 2 PPT DK GREEN (LiHep) DK GREEN (SodH) GARY DK BLUE (K2) DK BLUE (S) ACD Blood Culture NIPT/NTD Patient has been identified by and name and was provided with cup, antiseptic towelette, and clean catch instructions. 1 urine specimen(s) sent. Unpreserved 1 Urine Culture Aptima tube Other urine [facility] 2024-01-13 16:24:00 Patient in clinic with c/o hyperglycemia and requesting to change DM medication. She stated going to the ER on 12/18 for vomiting blood and per self has since stopped using Ozempic. No distress noted. Patient A&OX3. POCT glucose collected and 183. BP 120/83 HR 101 SPO2 97% RR 18. ER F/U scheduled for 01/13 with Nicky Peck. Monica Fernando LVN [facility] 2023-12-19 12:28:31 Rosanne Resendiz is a 28 year old female is calling to inform the clinic that she was in the ER yesterday for vomiting blood. Kamilla Ryder 12/19/2023 12:29 PM Kamilla Ryder [facility] 2023-12-19 07:09:41 Pt and mother given printed [...] in no apparent distress Scarlett Stone RN [facility] 2023-12-19 03:32:41 CC: Pt reports surgery on [...] without difficulty, amb with steady gait See [facility] for surgery notes Celina Mills RN [facility] 2023-12-17 11:44:06 Endocrine provider will be retiring. Pt able to transfer back to PCP for diabetes management. 6 month refill of diabetic medication sent into pharmacy. [facility] 2023-12-11 13:40:00 Patient left unit via wheelchair accompanied by her parents and with all her belongings. EENT Betty Brown RN [facility] 2023-12-11 11:26:05 Patient and parents given discharge instructions. They all verbalized understanding. Iv catheter removed, no bleeding noted and tip noted to be intact. O2 monitoring machine disconnected and removed from the room. T [facility] 2023-12-11 08:34:56 Problem: Pain Goal: Control of [...] Goal: Patent airway Outcome: Progressing as expected Count includes the [facility] 2023-12-10 20:56:46 Problem: Pain Goal: Control of [...] Goal: Patent airway Outcome: Progressing as expected [facility] Adán Chew RN [facility] 2023-12-10 17:43:08 Problem: Pain Goal: Control of pain at or below patient's documented comfort goal Outcome: Progressing as expected Problem: Bleeding, Risk of Goal: Absence of impaired coagulation signs and symptoms Outcome: Progressing as expected Count includes the [facility] 2023-12-10 01:24:16 Problem: Pain Goal: Control of [...] Goal: Patent airway Outcome: Progressing as expected Citlalli Porter RN [facility] 2023-12-07 16:30:00 Collection is to far in the future to be collected.Candelaria Forte 12/07/2023 4:14 PM [facility] 2023-11-26 14:30:00 Images from the original note were not included. Venipuncture collection performed by clean technique on the left anticubitus. Total of 1 attempts were made. Slight pressure and a bandage/dressing were applied to the site(s). The patient experienced no complications. The following specimens were processed according to instructions and [facility] to [facility] per lab order on 11/26/2023: LT BLUE SST 2 RED 1 LAV PPT DK GREEN (LiHep) DK GREEN (SodH) GARY DK BLUE (K2) DK BLUE (S) ACD Blood Culture NIPT/NTD [facility] 2023-10-21 16:44:49 Reminded Rosanne Resendiz of upcoming appointment scheduled for 10/23/23 at 2 pm. Patient verbalized understanding. Keeley Schliling [facility] 2023-10-19 08:00:00 Images from the original note were not included. Venipuncture collection performed by clean technique on the left anticubitus. Total of 1 attempts were made. Slight pressure and a bandage/dressing were applied to the site(s). The patient experienced no complications. The following specimens were processed according to instructions and sent to [facility] per lab order on 10/19/2023 : LT BLUE SST 2 RED LAV 1 PPT DK GREEN (LiHep) DK GREEN (SodH) GARY DK BLUE (K2) DK BLUE (S) ACD Blood Culture NIPT/NTD [facility] 2023-10-05 13:45:00 Orders for Marley Camarillo MD only [facility] 2023-09-15 15:13:45 Patient came by clinic and monitor was reapplied. Kayy Gaffney RN [facility] 2023-09-15 08:07:59 Copied from [facility] #[id number]. Topic: Clinical - Medical Advice >> Sep 15, 2023 8:07 AM Patient Belt Loop Cutter wrote: Rosanne Resendiz is a 27 year old female is calling and states a wire fell off of her chest. [phone] (home) Warm transferred to clinic nurse Yasmin Ibarra [facility] 2023-09-14 08:30:00 48 hour holter (SEER 1000, #1) applied to patient, tolerated well. Wear, care, diary entry and monitor return teaching given, understanding verbalized. Monitor to be returned on Thu by 1111am, return letter acknowledged and signed. Angélica Bryant MA [facility] 2023-09-11 12:15:00 Images from the original note were not included. Venipuncture collection performed by clean technique on the right anticubitus. Total of 1 attempts were made. Slight pressure and a bandage/dressing were applied to the site(s). The patient experienced no complications. The following specimens were processed according to instructions and sent to [facility] per lab order on today: LT BLUE SST 1 RED LAV PPT DK GREEN (LiHep) DK GREEN (SodH) GARY DK BLUE (K2) DK BLUE (S) ACD Blood Culture NIPT/NTD [facility] 2023-08-10 09:01:15 Testing brought in by patient. Scanned into ADC folder. Pending upload to [facility]. Placed in Dr. Henderson's ADC inbox folder for review. ARCH AND DEVELOPMENT ENGINEER Angélica Bryant MA [facility] 2023-08-04 14:10:20 Paperwork located. Kelly Reynaga DNP reviewed and declined signature. She states Patient does not qualify. Called [employer] and relayed the information to Blu. She voiced understanding. Simmons RN [facility] 2023-08-04 11:24:07 Can you please look for this, I am not back in office until Thursday. Thank you. [facility] 2023-08-04 08:33:37 Copied from [facility] #[id number]. Topic: Clinical - Order >> Aug 04, 2023 8:30 AM MyChart Team wrote: Shraddha from [employer] called to see if clinic received order for Continuous Glu close Monitor faxed over 08/03 just verifying order Please advise ARCH AND DEVELOPMENT ENGINEER Tatianna Avina [facility] 2023-07-30 15:27:23 Images from the original note were not included. Notes: 06/25/23 Last Refilled: [facility] [id number] [place] [address] POCT HBA1C (%) Date Value 10/15/2021 6.3 (A) Recent Visits Date Type Provider Dept 07/24/23 Office Visit Nicky Peck PA [facility] 06/17/23 Office Visit Nicky Peck PA [facility] 05/15/23 Office Visit Nicky Peck PA [facility] 03/26/23 Office Visit Kelly Reynaga AGENCY MANAGER [facility] 12/24/22 Office Visit Nicky Peck PA [facility] 11/12/22 Office Visit Nicky Peck PA [facility] 09/08/22 Office Visit Kelly Reynaga AGENCY MANAGER [facility] 08/08/22 Office Visit Kelly Reynaga AGENCY MANAGER [facility] 06/27/22 Office Visit Kelly Reynaga AGENCY MANAGER [facility] 04/11/22 Office Visit Kelly Reynaga AGENCY MANAGER [facility] Showing recent [...] month ago (06/25/2023) by GRACIELA Rice Off-Protocol [id number]/30/2023 02:24 PM Protocol Details Medication not assigned to a protocol, forward to provider. Valid encounter within last 12 months To be filled at: [facility] [id number] [place] [address] [facility] 2023-07-15 08:33:15 LOS-04/21/23 NOV-07/23/23 Called pharmacy and spoke with pharmacy staff. They state pt has no refills. Vitamin D last checked 04/21/23. Ok to refill ergocalciferol, vitamin d2, 1,250 mcg (50,000 unit) capsule. Please send if appropriate. Thank you. Marely Raza, RN [facility] 2023-07-15 08:29:47 Rosanne Resendiz is a 27 year old female Patient is calling in regards to the ergocalciferol, vitamin d2, 1,250 mcg (50,000 unit) capsule , mentions refill was denied due for being to soon. Pt has contacted pharmacy and their is no additional refills on file, but will try to reach out again. [facility] Baylee Ahmadi [facility] 2023-07-13 08:32:33 Images from the original note were not included. Fisher [facility] 2023-07-10 19:47:08 Rosanne Resendiz is a 27 year old female Patient is calling to request a refill on RX ergocalciferol, vitamin d2, 1,250 mcg (50,000 unit) capsule - states pharmacy needs a new script - please be advised [facility] [id number] [place] [address] [facility] 2023-06-25 10:36:10 Last Refilled: Disp Refills Start End FADI semaglutide (OZEMPIC) 1 mg/dose (4 mg/3 mL) PnIj 3 Pen 1 05/22/2023 -- -- Sig: inject 1 mg under the skin weekly. Sent to pharmacy as: Ozempic 1 mg/dose (4 mg/3 mL) subcutaneous pen injector (semaglutide) Class: eRX Route: Subcutaneous Order: [id number] Date/Time Signed: 05/22/2023 11:51 Notes: Recent Visits Date Type Provider Dept 06/17/23 Office Visit Nicky Peck PA [facility] 05/15/23 Office Visit Nicky Peck PA [facility] 03/26/23 Office Visit Kelly Reynaga, AGENCY MANAGER [facility] 12/24/22 Office Visit Nicky Peck PA [facility] 11/12/22 Office Visit Nicky Peck PA [facility] 09/08/22 Office Visit Kelly Reynaga, AGENCY MANAGER [facility] 08/08/22 Office Visit Kelly Reynaga, AGENCY MANAGER [facility] 06/27/22 Office Visit AneKelly herron, AGENCY MANAGER [facility] 04/11/22 Office Visit Kelly Reynaga, AGENCY MANAGER [facility] 02/07/22 Office Visit Kelly Reynaga, AGENCY MANAGER [facility] Showing recent visits within past 540 days with a meds authorizing provider and meeting all other requirements Future Appointments No visits were found meeting these conditions. Showing future appointments within next 150 days with a meds authorizing provider and meeting all other requirements Simmons RN [facility] 2023-06-17 17:00:00 Images from the original note were not included. Patient has been identified by name and was provided with cup, antiseptic towelette, and clean catch instructions. 1 urine specimen(s) sent. Unpreserved Urine Culture 1 Aptima tube Other urine [facility] 2023-06-17 09:19:49 Patient has appointment today 06/17/23. Will address in clinic. Mirtha Bowman LVN 06/17/2023 9:20 AM [facility] 2023-06-12 16:57:47 Rosanne Resendiz is a 27 year old female is returning a call she missed from the clinic in regards to EKG results. Please advise. [phone] Broussard [facility] 2023-06-12 16:53:14 Attempted to reach patient , no answer left V/M Ho MA [facility] 2023-06-12 16:50:02 Looks like she was checked in 06/10/23 at the hospital for the EKG No results in chart [facility] 2023-06-12 13:14:56 I do not see EKG results either. Perhaps she completed with an external provider? ARCH AND DEVELOPMENT ENGINEER ESTRELLA-PHYSICIAN RAYON TESTER MIDLEVEL PROVIDER [facility] 2023-06-12 12:33:32 Please review and advise. Did not see any EKG results in chart. Elizabeth RN [facility] 2023-06-11 16:29:14 Rosanne Resendiz is a 27 year old female patient is requesting a call from the clinic in regards to EKG results. Please advise. [phone] Broussard [facility] 2023-02-10 08:57:57 Formatting of this n ote might be different from the original. Labs re-printed and faxed to [phone] Count includes the [facility] 2023-02-05 09:42:45 Formatting of this n ote might be different from the original. Ana María from [facility] called, requesting lab results re faxed , she she stated it got deleted by mistake. . Kiesha Katz [facility] 2023-02-04 14:35:27 Formatting of this n ote might be different from the original. 3rd attempt to reach patent. Closing encounter. Mirtha Bowman LVN 02/04/2023 2:35 PM Count includes the [facility] 2023-02-03 16:04:46 Formatting of this n ote might be different from the original. Attempted to contact patient. No answer. Left message to call back. Count includes the [facility] 2023-02-03 14:57:21 Formatting of this n ote might be different from the original. Patient is requesting a call back regarding results. Diane Ga [facility] 2023-02-02 17:03:43 Formatting of this n ote might be different from the original. Rosanne Resendiz is a 27 year old female Patient is returning a missed call in regards to lab results. Please advise [phone] (home) Brenda Montano Nieves [facility] 2023-02-02 14:24:53 Formatting of this n ote might be different from the original. Attempted to contact patient. No answer. Left message to call back. Mirtha Bowman LVN 02/02/2023 2:25 PM [facility] 2023-02-02 13:14:29 Formatting of this n ote might be different from the original. Patient would like a nurse to call her regarding her lab results. Loan Huddleston [facility] 2023-01-26 14:14:51 Formatting of this n ote [...] last 12 months To be filled at: [facility] [id number] [place] [address] Recent Visits Date Type Provider Dept 12/24/22 Office Visit Nicky Peck PA [facility] 11/12/22 Office Visit Nicky Peck PA [facility] 09/08/22 Office Visit Kelly Reynaga, AGENCY MANAGER [facility] 08/08/22 Office Visit Kelly Reynaga, AGENCY MANAGER [facility] 06/27/22 Office Visit Kelly Reynaga, AGENCY MANAGER [facility] 04/11/22 Office Visit Kelly Reynaga, AGENCY MANAGER [facility] 02/07/22 Office Visit Kelly Reynaga, AGENCY MANAGER [facility] 01/17/22 Office Visit Kelly Reynaga, AGENCY MANAGER [facility] 12/24/21 Office Visit Kelly Reynaga, AGENCY MANAGER [facility] 11/05/21 Office Visit Nj Bullock MD [facility] Showing recent visits within past 540 days with a meds authorizing provider and meeting all other requirements Future Appointments No visits were found meeting these conditions. Showing future appointments within next 150 days with a meds authorizing provider and meeting all other requirements Count includes the [facility] 2023-01-26 07:44:09 Formatting of this n ote might be different from the original. Pt is checking the status. Count includes the [facility] 2023-01-24 21:24:28 Formatting of this n ote might be different from the original. Rosanne Resendiz is a 27 year old female that is requesting refills of ozympic. [facility] [id number] [place] [address] Please advise. Keisha Harvey [facility] 2023-01-07 14:00:00 Formatting of this n ote [...] DK BLUE (S) ACD Blood Culture NIPT/NTD [facility] [employer] 2022-12-24 14:30:00 Formatting of this n ote [...] DK BLUE (S) ACD Blood Culture [facility]IPT/NTD [facility] [employer]
--- NOTE | 2024-04-05 22:00 | EDPHYS ---
Physician Documentation [facility] Name: Rosanne Sparks Age: 28 yrs Sex: Female : 1995 Arrival Date: 04/05/2024 Time: 21:23 Bed IW1 Private MD: ED Physician Red Steen HPI: 04/05 22:01 This 28 yrs old Female presents to ER via Ambulatory with complaints of ec2 Toothache. 22:01 Patient arrives today for evaluation of dental pain. Patient planing of upper and lower ec2 right-sided dental pain. No fevers or chills, nausea with p.o. intake, no nausea or vomiting, does have a history of dental caries, previous cavities that have been filled. Patient reports no facial swelling.. 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 - Infectious Disease History:: Denies. - Social history:: Smoking status: Patient denies any tobacco usage or history of. ROS: 22:01 Constitutional: as per hpi ec2 Exam: 22:01 Constitutional: GEN: NAD Head: atraumatic Eyes: EOMI Ears: External ears are normal. ec2 Mouth: Dental caries noted in the right upper and lower, no overlying facial swelling, no significant erythema, no discharge, no foul smelling breath CV: regular rate LUNGS: no respiratory distress ABD: non-distended SKIN: no evidence of rashes MSK: no evidence of trauma Vital Signs: 21:49 BP 118 / 61; Pulse 122; Resp 18; Temp 98.5; Pulse Ox 98% ; Weight 96.62 kg; Height 5 bm8 ft. 0 in. ; Pain 10/10; 21:49 Body Mass Index 41.60 (96.62 kg, 152.4 cm) bm8 21:49 Pain Scale: Adult bm8 MDM: 21:52 Medical Screening Exam initiated ec2 22:03 Data reviewed: vital signs. ED course: Patient arrives today for evaluation of dental ec2 pain. Examination remarkable for dental findings as above. Will start the patient on antibiotics as well as pain medications. Suspect possible dental infection, doubt maxillary or mandibular abscess, doubt systemic infection given lack of systemic symptoms. Return precautions given. Instructed follow-up with dentist. Administered Medications: 22:09 Drug: Acetaminophen-Codeine PO (300 mg-30 mg) 1 tablet PO once; RASS on ADMIN: Combtv4, bm8 Very Agttd3, Agttd2, Rstlss1, AlertClm0, Drwsy-1, Lt Sdtn-2, Mod Sdtn-3, Dp Sdtn-4, UnArsble-5 Route: PO; 22:10 Follow up: Response: Medication administered at discharge. bm8 22:09 Drug: Ketorolac IM 30 mg IM once Route: IM; Site: left deltoid; bm8 22:10 Follow up: Response: Medication administered at discharge. bm8 22:09 Drug: Amoxicillin-Clavulanate PO 875 mg PO once Route: PO; bm8 22:10 Follow up: Response: No adverse reaction; Medication administered at discharge. bm8 22:09 Drug: Viscous Lidocaine Mucous Membrane Liquid (4 %) 10 ml Mucous Membrane once Route: bm8 Mucous Membrane; 22:10 Follow up: Response: Medication administered at discharge. bm8 Disposition Summary: 04/05/24 22:00 Discharge Ordered Notes: Location: Home ec2 Condition: Stable ec2 Diagnosis - Dental caries, unspecified ec2 Followup: ec2 - With: Private Physician - When: - Reason: Re-evaluation by your physician Discharge Instructions: - Discharge Summary Sheet ec2 - Dental Caries, Adult ec2 Forms: - Medication Reconciliation Form ec2 - Antibiotic Education ec2 - Prescription Opioid Use ec2 - Patient Portal Instructions ec2 - Leadership Thank You Letter ec2 Prescriptions: - acetaminophen-codeine 300-30 mg Oral tablet - take 1 tablet ORAL route every 6 hours; 10 tablet; Refills: 0, Product ec2 Selection Permitted - Augmentin 875-125 mg Oral Tablet - take 1 tablet ORAL route every 12 hours for 10 days; 20 tablet; Refills: 0, ec2 Product Selection Permitted Signatures: Red Steen MD MD ec2 Karsten Rowe RN RN bm8
--- NOTE | 2024-04-05 22:00 | ER ---
Nurse's Notes [facility] Name: Rosanne Sparks Age: 28 yrs Sex: Female : 1995 Arrival Date: 04/05/2024 Time: 21:23 Bed IW1 Private MD: Diagnosis: Dental caries, unspecified Presentation: 04/05 21:49 Chief complaint: Patient states: I have had bad tooth pain on my right side both top bm8 and bottom for three weeks. Coronavirus screen: At this time, the client does not indicate any symptoms associated with coronavirus-19. Ebola Screen: Patient negative for fever greater than or equal to 101.5 degrees Fahrenheit, and additional compatible Ebola Virus Disease symptoms Patient denies exposure to infectious person. Patient denies travel to an Ebola-affected area in the 21 days before illness onset. No symptoms or risks identified at this time. Initial Sepsis Screen: Does the patient meet any 2 criteria? HR > 90 bpm. No. Patient's initial sepsis screen is negative. Does the patient have a suspected source of infection? No. Patient's initial sepsis screen is negative. Risk Assessment: Do you want to hurt yourself or someone else? Patient reports no desire to harm self or others. Onset of symptoms was March 15, 2024. 21:49 Method Of Arrival: Ambulatory bm8 21:49 Acuity: GARRY 4 bm8 Triage Assessment: 21:50 General: Appears in no apparent distress. comfortable, Behavior is calm, cooperative, bm8 appropriate for age. Pain: Complains of pain in upper right first molar and lower right second molar Pain currently is 10 out of 10 on a pain scale. EENT: Reports pain in upper right first molar and lower right second molar. Neuro: No deficits noted. Level of Consciousness is awake, alert, obeys commands, Oriented to person, place, time, situation, Appropriate for age. Cardiovascular: Denies chest pain, Capillary refill < 3 seconds in bilateral fingers Patient's skin is warm and dry. Respiratory: Airway is patent Respiratory effort is even, unlabored, Respiratory pattern is regular, symmetrical, Breath sounds are clear bilaterally. GI: No deficits noted. No signs and/or symptoms were reported involving the gastrointestinal system. : No deficits noted. No signs and/or symptoms were reported regarding the genitourinary system. Derm: No deficits noted. No signs and/or symptoms reported regarding the dermatologic system. Musculoskeletal: No deficits noted. No signs and/or symptoms reported regarding the musculoskeletal system. DYNAMICIST: 21:50 unknown bm8 Historical: - Allergies: 21:50 No Known Allergies; bm8 - Home Meds: 21:50 metformin 500 mg Oral tablet 1 tab 2 times per day [Active]; bm8 - PMHx: 21:50 Diabetes - IDDM; bm8 - PSHx: 21:50 Cholecystectomy; right foot; bm8 - Immunization history:: Adult Immunizations up to date. - Infectious Disease History:: Denies. - Social history:: Smoking status: Patient denies any tobacco usage or history of. Screenin:53 [facility] ED Fall Risk Assessment (Adult) History of falling in the last 3 months, bm8 including since admission No falls in past 3 months (0 pts) Confusion or Disorientation No (0 pts) Intoxicated or Sedated No (0 pts) Impaired Gait No (0 pts) Mobility Assist Device Used No (0 pt) Altered Elimination No (0 pt) Score/Fall Risk Level 0 - 2 = Low Risk Oriented to surroundings, Maintained a safe environment, Educated pt \T\ family on fall prevention, incl call for assistance when getting out of bed, Assessed \T\ reinforced patient's understanding of fall precautions, Hourly rounding (assess needs \T\ fall precautionary measures) done, Used ambulatory aids as needed (educated on \T\ assisted with), Used gait belt as appropriate. Abuse screen: Denies threats or abuse. Nutritional screening: No deficits noted. Tuberculosis screening: No symptoms or risk factors identified. Assessment: 21:53 Reassessment: see triage assessment. bm8 Vital Signs: 21:49 BP 118 / 61; Pulse 122; Resp 18; Temp 98.5; Pulse Ox 98% ; Weight 96.62 kg; Height 5 bm8 ft. 0 in. ; Pain 10/10; 21:49 Body Mass Index 41.60 (96.62 kg, 152.4 cm) bm8 21:49 Pain Scale: Adult bm8 ED Course: 21:29 Patient arrived in ED. ra3 21:29 Red Steen MD is Attending Physician. ec2 21:49 Karsten Rowe, RN is Primary Nurse. bm8 21:50 Triage completed. bm8 21:50 Arm band placed on right wrist. bm8 21:53 Patient has correct armband on for positive identification. bm8 21:53 No provider procedures requiring assistance completed. Patient did not have IV access bm8 during this emergency room visit. 22:09 Provided Education on: post er care, follow up with dental LG. bm8 Administered Medications: 22:09 Drug: Acetaminophen-Codeine PO (300 mg-30 mg) 1 tablet PO once; RASS on ADMIN: Combtv4, bm8 Very Agttd3, Agttd2, Rstlss1, AlertClm0, Drwsy-1, Lt Sdtn-2, Mod Sdtn-3, Dp Sdtn-4, UnArsble-5 Route: PO; 22:10 Follow up: Response: Medication administered at discharge. bm8 22:09 Drug: Ketorolac IM 30 mg IM once Route: IM; Site: left deltoid; bm8 22:10 Follow up: Response: Medication administered at discharge. bm8 22:09 Drug: Amoxicillin-Clavulanate PO 875 mg PO once Route: PO; bm8 22:10 Follow up: Response: No adverse reaction; Medication administered at discharge. bm8 22:09 Drug: Viscous Lidocaine Mucous Membrane Liquid (4 %) 10 ml Mucous Membrane once Route: bm8 Mucous Membrane; 22:10 Follow up: Response: Medication administered at discharge. bm8 Medication: 21:53 VIS not applicable for this client. bm8 Outcome: 22:00 Discharge ordered by . ec2 22:09 Discharged to home ambulatory, with family, bm8 22:09 Condition: stable 22:09 Discharge instructions given to patient, family, Instructed on discharge instructions, follow up and referral plans. no drinking with medication, no driving heavy equipment, medication usage, safety practices, Demonstrated understanding of instructions, follow-up care, medications, Prescriptions given X 2, 22:10 Patient left the ED. bm8 Signatures: Red Steen MD MD ec2 Xochilt Tena Brad, RN RN bm8
[2024-04-05] MEDS ORDERED: LIDOCAINE VISCOUS 2% 10ML ORAL SOLN ONE (22:03)
[2024-04-05] MEDS ORDERED: KETOROLAC 30 MG/ML INJ ONE (22:03)
[2024-04-05] MEDS ORDERED: AMOX/K CLAV 875 MG TAB ONE (22:03)
[2024-04-05] MEDS ORDERED: CODEINE 30MG/APAP 300MG TAB ONE (22:04)
[2024-04-05 22:24] VITALS: BP 118/61; TEMP 98.5; O2SAT 98
== END 2024-04-05 22:10 | disposition home or self-care (01) ==
LOC: ER 21:23
DX: K02.9 Dental caries, unspecified (principal)
CPT/HCPCS: 96372; 99284

== ENCOUNTER 2024-04-16 00:19 | Emergency (ER) | payer OTHER ==
--- OUTSIDE RECORDS SUMMARY | 2024-04-16 00:29 | XMS REPORT | Continuity of Care Document ---
Author Name Unknown Address [address] [facility] [address] [place] [address] [facility] thconnect Address [address] [facility] [address] [place] [address] Care Team Providers Care Provider Relations Advocate Name Role Phone KELLY REYNAGA Primary Care Physician Unavailab Nicky Jesus Attending Clinician Unavailable SUPRIYA YAN Attending Clinician SUPRIYA Perez Attending Clinician TONE Dey Attending Clinician Unavailab TONE Ricketts Attending Clinician Unavailab KELLY Busch Attending Clinician Unavailable DANIEL HENDERSON Attending Clinician Unavailable LAURA MARTÍNEZ Attending Clinician Unavailable Tone Henderson DO Attending Clinician [phone] Laura Martínez DDS Attending Clinician [phone] NICKY PECK Attending Clinician Unavailable Kelly Lopez Attending Clinician [phone] Fred LOPEZ, Katie Mcpherson Attending Clinician Unavaila [facility] Nurse, [facility] Attending Clinician Un available Supriya Yan MD Attending Clinician + [phone] Doctor Unassigned, [place] Attending Clinician U navailable Lab, Ang - Db Attending Clinician Unavailable Laura Martínez DDS Attending Clinician [phone] BLAKE PELLETIER Attending Clinician Unavailable Blake Pelletier MD Attending Clinician [phone] NJ BULLOCK Attending Clinician ELIOT Stokes Attending Clinician Unavailable ELIOT CHEUNG Attending Clinician Unavailable Tian Caro MD Attending Clinician [phone] Viola Roberts Attending Clinician [phone] Unknown, Attending Attending Clinician Unavailab VIOLA Gama Attending Clinician Unavailable Lab, Ang - Db Attending Clinician Unavailable Stephenie Lopezthia Attending Clinician [phone] [address], [facility] Lab Main Attending Clinician UnavailOBEY Conn Attending Clinician Unavailable NISHANT CHAPMAN Attending Clinician Unavailable Nurse, [facility] Attending Clinician Un available Nishant Chapman MD Attending Clinician [phone] TIAN CARO Attending Clinician UnavailDarlin VERGARAP- Obey INMAN Attending Clinician Jonna Henderson DOisabelshagufta Attending Clinician [phone] Marley Camarillo MD Attending Clinician [phone] [facility] Bed Attending Clinician Unavail Kenzie Palacio MD Attending Clinician KENZIE CORREA Attending Clinician UnavailKENZIE Parsons Attending Clinician Unavaildusty putnam Doctor Unassigned, [place] Attending Clinician U lauriailable Nicky Serrano Attending Clinician [phone] MONTSERRAT RUBIN Attending Clinician Unavailable Emily Kaminski RN Attending Clinician UnavailMARLEY Couch Attending Clinician Unavaillazaro GARCIA_Madhu_Saray Attending Clinician Unavailab CARMEN House Attending Clinician UnavailCem Slater MD Attending Clinician [phone] CEM PORTILLO Attending Clinician UnavailMirtha Magaña LVN Attending Clinician UnaAnne Ivan MA Attending Clinician UnavailNj Veliz MD Attending Clinician + [phone] MALACHI DURAN Attending Clinician Unavailable Malachi Mejia Attending Clinician [phone] Burke POSEY Attending Clinician Unavailable Burke Strauss Attending Clinician [phone] Susan Aguilera RN Attending Clinician Unavailab yolande Provider, Ang [facility] Attending Clinician Unavailable Celina Uribe MD Attending Clinician [phone] Only, Ang Db Test Attending Clinician UnavailCELINA Verduzco Attending Clinician Unavailable Vaccine, Ang Db Cbc Fam Attending Clinician Unav ailable UNKNOWN, ATTENDING Attending Clinician Unavailab SIVAKUMAR Gamez Attending Clinician UnavailIsabel Jaeger RN Attending Clinician Unavailable Diana Mahajan Attending Clinician [phone] Provider, [facility] Attending Clinician Un available STEVE MURO Attending Clinician Unavailable ELIOT CHEUNG Admitting Clinician Unavailable LAURA MARTÍNEZ Admitting Clinician Unavailable Laura Martínez DDS Admitting Clinician [phone] NICKY PECK Admitting Clinician Unavailable MARLEY CAMARILLO Admitting Clinician Unavaillazaro Doherty_Nithin_ Admitting Clinician Unavail le Payers Payer Name Policy Type Policy Number Effective Date Expirati on Date Source [facility] [id number] 00:00:00 [facility] [id number] Problems Condition Name Condition Details Condition Category Status Onset Date Resolution Date Last Treatment Date Treating Clinician Comments Source Sinus tachycardi a Sinus tachycardi a Disease Active 12-21 00:00: 00 [facility] Palpitatio ns Palpitatio ns Disease Active 12-21 00:00: 00 [facility] Neutrophil ia Neutrophil ia Disease Active 12-07 00:00: 00 Overview: Formattin g of this note is different from the original. WBC (10*3/?L) Date Value 4 15.69 (H) 4 20.60 (H) 4 14.31 (H) 3 12.29 (H) 3 12.68 (H) [facility] Intoleranc e of continuous positive airway pressure (CPAP) ventilatio n Intoleranc e of continuous positive airway pressure (CPAP) ventilatio n Disease Active 10-25 00:00: 00 [facility] FAWN (obstructi ve sleep apnea) FAWN (obstructi ve sleep apnea) Disease Active 17 00:00: 00 [facility] Type 2 diabetes mellitus without complicati on, without long-term current use of insulin Type 2 diabetes mellitus without complicati on, without long-term current use of insulin Disease Active 3- 00:00: 00 [facility] Morbid obesity Morbid obesity Disease Active 3-03 00:00: 00 [facility] Plantar fasciitis of left foot Plantar fasciitis of left foot Disease Active 03-05 00:00: 00 [facility] Pain in left foot Pain in left foot Disease Resolve d 2022-0 9-28 00:00: 00 2023-12-11 00:00:00 2023-12-11 09:11:56 [facility] Subacute maxillary sinusitis Subacute maxillary sinusitis Disease Resolve d 6- 00:00: 00 2023-12-11 00:00:00 2023-12-11 09:11:53 [facility] Left arm pain Left arm pain Disease Resolve d 11-15 00:00: 00 2023-12-11 00:00:00 2023-12-11 09:11:51 [facility] Acute otitis media, bilateral Acute otitis media, bilateral Disease Resolve d 11-15 00:00: 00 2023-12-11 00:00:00 2023-12-11 09:11:49 [facility] Allergies, Adverse Reactions, Alerts Allergy Name Allergy Type Status Severity Reaction(s) Onset Date Inactive Date Treating Clinician Comments Source NO KNOWN ALLERGIE S Drug Class Active [facility] Social History Social Habit Start Date Stop Date Quantity Comments Source History of tobacco use Passive smoker [facility] Gender identity [facility] Alcoholic beverage intake 2024-03-27 00:00:00 2024-03-27 00:00:00 Current drinker of alcohol (finding) [facility] History of Social function 2024-02-18 00:00:00 2024-02-18 00:00:00 [facility] Alcohol Comment 2023-11-20 00:00:00 2023-11-20 00:00:00 ocassional [facility] Alcohol intake 2023-10-05 00:00:00 2023-10-05 00:00:00 Lifetime non-drinker (finding) [facility] Exposure to SARS-CoV-2 (event) 2022-11-06 00:00:00 2022-11-16 16:22:00 Not sure [facility] Tobacco use and exposure 2022-04-17 00:00:00 2022-04-17 00:00:00 Smokeless tobacco non-user [facility] Sex assigned at 1995 00:00:00 1995 00:00:00 [facility] Smoking Status Start Date Stop Date Source Never smoked tobacco [facility] Medications Ordered Medication Name Filled Medication Name Start Date Stop Date Current Medication? Ordering Clinician Indication Dosage Frequency Signature (SIG) Comments Components Source methylPREDN ISolone (MEDROL, JESSICA,) 4 mg tablets 2023-06 00:00: 00 Yes [id number] Take by mouth SEE-INSTRU CTIONS. follow package directions [facility] metFORMIN 500 mg tablet 02-17 00:00: 00 Yes [id number] 500mg Take 1 tablet by mouth in the morning and 1 tablet in the evening. Take with meals. [facility] medroxyPROG ESTERone (DEPO-PROVE RA) syringe 150 mg 01-25 22:45: 00 01-25 21:53 :00 No [id number] 150mg 150 mg, Intramuscu lar, ONCE, 1 dose, On Thu01/26/24 at 1745, Routine [facility] acyclovir 5 % ointment 01-13 00:00: 00 01-18 04:59 :00 No [id number] Apply to area(s) 5 (five) times daily for 4 days. [facility] propranoloL 10 mg tablet 12-21 00:00: 00 06-20 05:59 :00 No [id number] 10mg Take 1 tablet by mouth in the morning and 1 tablet in the evening. Do all this for 180 days. [facility] Potassium Bicarb-Citr ic Acid (EFFER-K) effervescen t tablet 40 mEq 12-18 11:45: 00 12-18 12:04 :00 No [id number] 40 mEq, Oral, ONCE, 1 dose, On Thu12/19/23 at 0645, Routine [facility] iopamidol (ISOVUE 370-500 mL) injection 75 mL 12-18 10:45: 00 12-18 10:45 :00 No [id number] 75mL 75 mL, Intravenou s, ONCE, 1 dose, On Thu12/19/23 at 0545, Routine [facility] nystatin 100,000 unit/gram cream 12-15 00:00: 00 12-30 04:59 :00 No [id number] Apply to area(s) 2 (two) times daily for 14 days. [facility] propranoloL (INDERAL) tablet 10 mg 12-10 02:00: 00 Yes 10mg 10 mg, Oral, QHS, First dose on Brenna 12/10/23 at 2100, Until Discontinu ed, Routine [facility] chlorhexidi ne 0.12 % mouthwash 12-10 00:00: 00 12-27 04:59 :00 No [id number] 15mL Swish and spit out 15 mL in the morning and 15 mL in the evening. Do all this for 16 days. [facility] ibuprofen 100 mg/5 mL oral suspension 12-10 00:00: 12-25 04:59 :00 No [id number] 600mg Take 30 mL by mouth every 6 (six) hours for 14 days. [facility] acetaminoph en 160 mg/5 mL (5 mL) oral suspension 12-10 00:00: 00 12-25 04:59 :00 No [id number] 500.16m g Take 15.63 mL by mouth every 6 (six) hours for 14 days. [facility] HYDROcodone -acetaminop hen 7.5-325 mg/15 mL solution 12-10 00:00: 00 12-18 04:59 :00 No [id number] 5mg Take 10 mL by mouth 4 (four) times daily as needed for Pain (scale 7-10) for up to 7 days. Indication s: acute pain [facility] amoxicillin -pot clavulanate (AUGMENTIN) 250-62.5 mg/5 mL suspension 12-10 00:00: 00 12-15 00:00 :00 No [id number] 500mg Take 10 mL by mouth in the morning and 10 mL at noon and 10 mL in the evening. Do all this for 10 days. [facility] acetaminoph en (TYLENOL) 160 mg/5 mL oral liquid 500 mg 12-09 23:00: 00 Yes 500mg 500 mg, Oral, Q6H, First dose on Thu12/10/23 at 1800, Until Discontinu ed, Routine [facility] ketorolac (TORADOL) injection 15 mg 12-09 23:00: 00 12-11 22:59 :00 No 15mg 15 mg, Slow IV Push, Q6H, 8 doses, First dose (after last modificati on) on Thu12/10/23 at 1800, Last dose on Thu12/12/23 at 1200, Routine [facility] dexamethaso ne sod phos PF injection 10 mg 12-09 17:45: 00 12-10 10:59 :00 No 10mg 10 mg, Intravenou s, Q8H, 3 doses, First dose on Thu12/10/23 at 1245, Last dose on Thu12/10/23 at 2200, 1 mL [facility] Sliding Scale Insulin - Lispro (HumaLOG) 12-09 17:00: 00 Yes Subcutaneo us, TID MEALS+HS, First dose on Thu12/10/23 at 1200, Until Discontinu ed, Routine [facility] glucagon (GLUCAGEN DIAGNOSTIC KIT) injection 1 mg 12-09 15:32: 11 Yes 1mg 1 mg, Intramuscu lar, PRN, Starting on Thu12/10/23 at 1032, Until Discontinu ed, LG, Blood Glucose < or = 70 mg/dL and patient is NPO, unable to swallow or has mental changes. [facility] dextrose 50 % in water (D50W) injection 25 mL 12-09 15:32: 11 Yes 25mL 25 mL, Slow IV Push, PRN, Starting on Thu12/10/23 at 1032, Until Discontinu ed, GL, Blood Glucose < or = 70 mg/dL and patient is NPO, unable to swallow or has mental status changes. [facility] chlorhexidi ne (PERIDEX) 0.12 % mouthwash 15 mL 12-09 01:00: 00 Yes 15mL 15 mL, Oral (Swish And Spit Out), BID, First dose on Thu12/09/23 at 2000, Until Discontinu ed, Routine [facility] ampicillin- sulbactam (UNASYN) 3 g in NaCl [...] of therapy: within 24 hours of surgery [facility] FENTanyl PF (SUBLIMAZE (PF)) injection 25 mcg 12-08 20:27: 24 12-08 22:08 :40 No 25ug 25 mcg, Slow IV Push, Q5MIN PRN, 4 doses, Starting on Thu12/09/23 at 1527, Until Thu12/09/23 at 1708, Routine, Pain (scale 4-6), PACU [facility] lactated ringers IV infusion 1,000 mL 12-08 20:00: 00 Yes 1000mL at 42 mL/hr, 1,000 mL, IV Infusion, CONTINUOUS , Starting on Thu12/09/23 at 1500, Until Discontinu ed, Routine [facility] ketorolac (TORADOL) injection 15 mg 12-08 19:58: 06 12-09 19:29 :07 No 15mg 15 mg, Slow IV Push, Q6HPRN, Starting on Thu12/09/23 at 1458, Until Brenna 12/10/23 at 1429, Routine, Pain (scale 4-6) [facility] HYDROcodone -acetaminop hen (HYCET) 7.5-325 mg/15 mL solution 5 mg 12-08 19:57: 48 Yes 5mg 5 mg, Oral, Q6HPRN, Starting on Thu12/09/23 at 1457, Until Discontinu ed, Routine, Pain (scale 7-10) [facility] ondansetron (ZOFRAN (PF)) injection 4 mg 12-08 19:54: 58 Yes 4mg 4 mg, Slow IV Push, Q4HPRN, Starting on Thu12/09/23 at 1454, Until Discontinu ed, Routine, Nausea and Vomiting (N/V) [facility] lidocaine-e pinephrine (XYLOCAINE WITH EPINEPHRINE ) 1 %-1:100,000 injection 12-08 17:56: 00 12-08 20:27 :10 No PRN, Starting on Thu12/09/23 at 1256, Until Thu12/09/23 at 1527, Routine, Intra-op [facility] oxymetazoli ne (OXYMETAZOL INE HCL) 0.05 % nasal spray 12-08 17:55: 00 12-08 20:27 :10 No Intra-op [facility] vancomycin (VANCOCIN) 1,000 mg in NaCl 0.9% (NS) 1,000 mL OR irrigation 12-08 17:55: 00 12-08 20:27 :10 No PRN, Starting on Thu12/09/23 at 1255, Intra-op [facility] lactated ringers IV infusion 1,000 mL 11-11 15:00: 00 11-11 17:50 :15 No 1000mL at 75 mL/hr, 1,000 mL, IV Infusion, CONTINUOUS , Starting on Brenna 11/12/23 at 1000, Until Brenna 11/12/23 at 1250, Routine, PACU [facility] ondansetron (ZOFRAN (PF)) injection 4 mg 11-11 14:56: 17 11-11 17:50 :15 No 4mg 4 mg, Slow IV Push, PRN, 1 dose, Starting on Brenna 11/12/23 at 0956, Until Brenna 11/12/23 at 1250, Routine, Nausea and Vomiting (N/V), PACU [facility] no115/iron/ folic acid ( 19 ORAL) 6-06 10:50: 12 12-15 00:00 :00 No Take by mouth. [facility] medroxyPROG ESTERone (DEPO-PROVE RA) syringe 150 mg 11-02 16:45: 00 11-02 15:51 :00 No [id number] 150mg 150 mg, Intramuscu lar, ONCE, 1 dose, On Thu11/03/23 at 1145, Routine [facility] semaglutide (OZEMPIC) 1 mg/dose (4 mg/3 mL) Ij 10-20 00:00: 00 02-17 00:00 :00 No [id number] 1mg inject 1 mg under the skin weekly. [facility] propranoloL 10 mg tablet 16 00:00: 00 12-21 00:00 :00 No [id number] 10mg Take 1 tablet by mouth at bedtime. [facility] medroxyPROG ESTERone (DEPO-PROVE RA) syringe 150 mg 04 15:00: 00 08-09 14:14 :00 No [id number] 150mg [facility] semaglutide (OZEMPIC) 1 mg/dose (4 mg/3 mL) Ij 07-30 00:00: 00 10-20 00:00 :00 No [id number] 1mg inject 1 mg under the skin weekly. [facility] Cholecalcif fortunato, Vitamin D3, (VITAMIN D3) 50 mcg (2,000 unit) tablet 07-23 00:00: 00 12-15 00:00 :00 No [id number] 2000U Take 1 tablet by mouth in the morning. [facility] ergocalcife rol, vitamin d2, 1,250 mcg (50,000 unit) capsule -07 00:00: 00 07-23 00:00 :00 No [id number] 94182T Take 1 capsule by mouth weekly. [facility] semaglutide (OZEMPIC) 1 mg/dose (4 mg/3 mL) PnIj -18 00:00: 00 07-30 00:00 :00 No [id number] 1mg inject 1 mg under the skin weekly. [facility] cefUROXime 250 mg tablet 1-10 00:00: 00 06-25 05:59 :00 No [id number] 250mg Take 1 tablet by mouth in the morning and 1 tablet in the evening. Do all this for 7 days. [facility] semaglutide (OZEMPIC) 1 mg/dose (4 mg/3 mL) PnIj 2022-06 2-15 00:00: 00 06-25 00:00 :00 No [id number] 1mg inject 1 mg under the skin weekly. [facility] ergocalcife rol, vitamin d2, 1,250 mcg (50,000 unit) capsule 2022-06- 00:00: 00 07-15 00:00 :00 No [id number] 87304V Take 1 capsule by mouth weekly. [facility] semaglutide (OZEMPIC) 1 mg/dose (4 mg/3 mL) PnIj 2022-06-19 00:00: 00 05-22 00:00 :00 No [id number] 1mg inject 1 mg under the skin weekly. [facility] medroxyPROG ESTERone (DEPO-PROVE RA) syringe 150 mg 18 15:30: 00 02-23 14:44 :00 No [id number] 150mg [facility] semaglutide (OZEMPIC) 0.25 mg or 0.5 mg(2 mg/1.5 mL) PnIj - 00:00: 00 03-26 00:00 :00 No [id number] .5mg inject 0.5 mg under the skin weekly. [facility] cefUROXime 250 mg tablet 7-19 00:00: 00 01-01 04:59 :00 No [id number] 250mg Take 1 tablet by mouth in the morning and 1 tablet in the evening. Do all this for 7 days. [facility] semaglutide (OZEMPIC) 0.25 mg or 0.5 mg(2 mg/1.5 mL) PnIj 3-12-18 00:00: 00 01-26 00:00 :00 No [id number] .5mg inject 0.5 mg under the skin weekly. [facility] medroxyPROG ESTERone (DEPO-PROVE RA) syringe 150 mg 11-18 14:45: 00 11-18 13:54 :00 No [id number] 150mg [facility] ferrous sulfate (IRON ORAL) 11-18 08:43: 18 Yes Take by mouth. [facility] semaglutide (OZEMPIC) 0.25 mg or 0.5 mg(2 mg/1.5 mL) Ij 11-12 00:00: 00 12-18 00:00 :00 No [id number] .5mg inject 0.5 mg under the skin weekly. [facility] semaglutide (OZEMPIC) 0.25 mg or 0.5 mg(2 mg/1.5 mL) Ij 09-08 00:00: 00 11-12 00:00 :00 No [id number] .5mg inject 0.5 mg under the skin weekly. [facility] medroxyPROG ESTERone (DEPO-PROVE RA) syringe 150 mg 08-12 18:15: 00 08-12 17:15 :00 No [id number] 150mg [facility] semaglutide (OZEMPIC) 0.25 mg or 0.5 mg(2 mg/1.5 mL) Ij 08-08 00:00: 00 09-08 00:00 :00 No [id number] .25mg inject 0.25 mg under the skin weekly. [facility] metformin ER 750 mg 24 hr tablet 1-20 00:00: 00 09-08 00:00 :00 No [id number] 750mg Take 1 tablet by mouth daily with breakfast. [facility] medroxyPROG ESTERone (DEPO-PROVE RA) syringe 150 mg 2021-06 16:30: 00 05-19 15:52 :00 No [id number] 150mg [facility] triamcinolo ne acetonide 0.1 % cream 2021-06 00:00: 00 Yes [id number] Apply to area(s) 2 (two) times daily. [facility] ketoconazol e 2 % cream 2021-06 00:00: 00 Yes [id number] Apply to area(s) 2 (two) times daily. [facility] hydrOXYzine 25 mg tablet 2021-06 00:00: 00 12-15 00:00 :00 No [id number] 25mg Take 1 tablet by mouth every 6 (six) hours as needed for Itching. [facility] metformin ER 750 mg 24 hr tablet 2021-06 00:00: 00 06-27 00:00 :00 No [id number] 750mg Take 1 tablet by mouth daily with breakfast. [facility] ferrous sulfate (IRON ORAL) 2021-06 10:45: 25 Yes Take by mouth. [facility] miSOPROStoL 200 mcg tablet 2021-06 00:00: 00 04-21 00:00 :00 No [id number] 200ug Take 1 tablet by mouth SEE-INSTRU CTIONS. Take one tab the night before and one tab the morning of procedure [facility] Diclofenac Sodium (VOLTAREN) 1 % gel 02-07 00:00: 00 09-08 00:00 :00 No [id number] 9107 Apply to area(s) 4 (four) times daily. Apply 4 g qid [facility] flash glucose sensor (FREESTYLE BAMBI 14 DAY SENSOR) Kit 8-29 00:00: 00 09-08 00:00 :00 No 1{each} 1 Each every 14 (fourteen) days. Use as directed every 14 days for E11.9 [facility] metformin ER 750 mg 24 hr tablet 8-15 00:00: 00 05-09 00:00 :00 No [id number] 750mg Take 1 tablet by mouth daily with breakfast. [facility] naproxen 500 mg tablet 8-12 00:00: 00 09-08 00:00 :00 No [id number] 500mg Take 1 tablet by mouth 2 (two) times daily as needed for Pain (scale 4-6). [facility] sulfamethox azole-trime thoprim (BACTRIM DS) 800-160 mg per tablet 5-31 00:00: 00 09-08 00:00 :00 No [id number] 9100 1{tbl} Take 1 tablet by mouth 2 (two) times daily. [facility] butalbital- acetaminoph en-caff 50-325-40 mg tablet 5-19 00:00: 00 09-08 00:00 :00 No [id number] 1{tbl} Take 1 tablet by mouth every 4 (four) hours as needed for Pain (scale 7-10). [facility] lisinopriL 2.5 mg tablet 3-25 00:00: 00 09-08 00:00 :00 No [id number] 2.5mg Take 1 tablet by mouth daily. [facility] SITagliptin (JANUVIA) 100 mg tablet 3-25 00:00: 00 06-27 00:00 :00 No [id number] 100mg Take 1 tablet by mouth daily. [facility] canaglifloz in (INVOKANA) 100 mg tablet 3-25 00:00: 00 10-15 00:00 :00 No [id number] 100mg Take 1 tablet by mouth daily. [facility] mupirocin 2 % ointment 1-21 00:00: 00 09-08 00:00 :00 No [id number] Apply to area(s) 3 (three) times daily. [facility] naproxen 500 mg tablet 2020-06 2-16 00:00: 00 06-23 05:59 :00 No [id number] 9100 500mg Take 1 tablet by mouth 2 (two) times daily as needed for Pain (scale 4-6) for up to 30 days. [facility] pantoprazol e 40 mg EC tablet 2020-06 00:00: 00 09-08 00:00 :00 No [facility] famotidine 20 mg tablet 2020-06 00:00: 00 09-08 00:00 :00 No [facility] ibuprofen 800 mg tablet 2020-06 00:00: 00 01-17 00:00 :00 No [facility] SUMAtriptan 50 mg tablet 2020-06 00:00: 00 09-08 00:00 :00 No [facility] fluticasone propionate 50 mcg/actuati on nasal spray 2020-06 0 00:00: 00 09-08 00:00 :00 No [id number] 1{spray } Use 1 [place] in each nostril daily. [facility] guaiFENesin 400 mg tablet 2020-06 0-20 00:00: 00 01-17 00:00 :00 No [id number] 400mg Take 1 tablet by mouth every 4 (four) hours as needed for Cough. [facility] ciprofloxac in-dexameth asone (CIPRODEX) 0.3-0.1 % otic drops 2020-06 0-20 00:00: 00 01-17 00:00 :00 No [id number] 4[drp] Place 4 Drops in right ear 2 (two) times daily. [facility] glimepiride 2 mg tablet 2020-0612 00:00: 00 06-20 00:00 :00 No [facility] metFORMIN 500 mg tablet - 00:00: 00 06-20 00:00 :00 No [facility] acetaminoph en 650 mg CR tablet 11-15 00:00: 00 09-08 00:00 :00 No [id number] 650mg Take 1 tablet by mouth every 8 (eight) hours as needed for Pain or Fever. [facility] Diclofenac Sodium (VOLTAREN) 1 % gel 11-15 00:00: 00 02-07 00:00 :00 No [id number] Apply to area(s) 4 (four) times daily. Apply 4 g qid [facility] amoxicillin -clavulanat e (AUGMENTIN) 875-125 mg per tablet 11-15 00:00: 00 01-17 00:00 :00 No [id number] 1{tbl} Take 1 tablet by mouth 2 (two) times daily. [facility] DEPO-AGRICULTURAL ECONOMICS PROFESSOR A 150 mg/mL syringe 11-08 00:00: 00 09-08 00:00 :00 No [facility] nystatin 100,000 unit/gram cream 4-30 00:00: 00 09-08 00:00 :00 No [facility] chlorhexidi ne 0.12 % mouthwash 4-27 00:00: 00 12-15 00:00 :00 No 32mL 32 mL. [facility] Immunizations Ordered Immunization Name Filled Immunization Name Date Status Comments Source Flu Injectable MDCK Pres-Free (FLUCELVAX) 2024-02-18 00:00:00 Completed [facility] Influenza Virus Vaccine Quad IM, Preserv and ABX Free 6 MO-64 YRS (FLUCELVAX) 2023-03-26 00:00:00 Completed SARS-COV-2 COVID-19 PFIZER VACCINE 2021-05-10 00:00:00 Completed [facility] SARS-COV-2 COVID-19 PFIZER VACCINE 2021-05-10 00:00:00 Completed [facility] SARS-COV-2 COVID-19 PFIZER VACCINE 2021-05-10 00:00:00 Completed [facility] SARS-COV-2 COVID-19 PFIZER VACCINE 2021-05-10 00:00:00 Completed [facility] SARS-COV-2 COVID-19 PFIZER VACCINE 2021-05-10 00:00:00 Completed [facility] SARS-COV-2 COVID-19 PFIZER VACCINE 2021-05-10 00:00:00 Completed [facility] SARS-COV-2 COVID-19 PFIZER VACCINE 2021-05-10 00:00:00 Completed [facility] SARS-COV-2 COVID-19 PFIZER VACCINE 2021-05-10 00:00:00 Completed [facility] SARS-COV-2 COVID-19 PFIZER VACCINE 2021-05-10 00:00:00 Completed [facility] SARS-COV-2 COVID-19 PFIZER VACCINE 2021-05-10 00:00:00 Completed [facility] SARS-COV-2 COVID-19 PFIZER VACCINE 2021-05-10 00:00:00 Completed [facility] SARS-COV-2 COVID-19 PFIZER VACCINE 2021-05-10 00:00:00 Completed [facility] SARS-COV-2 COVID-19 PFIZER VACCINE 2021-05-10 00:00:00 Completed [facility] SARS-COV-2 COVID-19 PFIZER VACCINE 2021-05-10 00:00:00 Completed [facility] SARS-COV-2 COVID-19 PFIZER VACCINE 2021-05-10 00:00:00 Completed [facility] SARS-COV-2 COVID-19 PFIZER VACCINE 2021-05-10 00:00:00 Completed [facility] SARS-COV-2 COVID-19 PFIZER VACCINE 2021-05-10 00:00:00 Completed [facility] SARS-COV-2 COVID-19 PFIZER VACCINE 2021-05-10 00:00:00 Completed [facility] SARS-COV-2 COVID-19 PFIZER VACCINE 2021-05-10 00:00:00 Completed [facility] SARS-COV-2 COVID-19 PFIZER VACCINE 2021-05-10 00:00:00 Completed [facility] SARS-COV-2 COVID-19 PFIZER VACCINE 2021-05-10 00:00:00 Completed [facility] SARS-COV-2 COVID-19 PFIZER VACCINE 2021-05-10 00:00:00 Completed [facility] SARS-COV-2 COVID-19 PFIZER VACCINE 2021-05-10 00:00:00 Completed [facility] SARS-COV-2 COVID-19 PFIZER VACCINE 2021-05-10 00:00:00 Completed [facility] SARS-COV-2 COVID-19 PFIZER VACCINE 2021-05-10 00:00:00 Completed [facility] SARS-COV-2 COVID-19 PFIZER VACCINE 2021-05-10 00:00:00 Completed [facility] SARS-COV-2 COVID-19 PFIZER VACCINE 2021-05-10 00:00:00 Completed [facility] SARS-COV-2 COVID-19 PFIZER VACCINE 2021-05-10 00:00:00 Completed [facility] SARS-COV-2 COVID-19 PFIZER VACCINE 2021-05-10 00:00:00 Completed [facility] SARS-COV-2 COVID-19 PFIZER VACCINE 2021-05-10 00:00:00 Completed [facility] SARS-COV-2 COVID-19 PFIZER VACCINE 2021-05-10 00:00:00 Completed [facility] SARS-COV-2 COVID-19 PFIZER VACCINE 2021-05-10 00:00:00 Completed [facility] SARS-COV-2 COVID-19 PFIZER VACCINE 2021-05-10 00:00:00 Completed [facility] SARS-COV-2 COVID-19 PFIZER VACCINE 2021-05-10 00:00:00 Completed [facility] SARS-COV-2 COVID-19 PFIZER VACCINE 2021-05-10 00:00:00 Completed [facility] SARS-COV-2 COVID-19 PFIZER VACCINE 2021-05-10 00:00:00 Completed [facility] SARS-COV-2 COVID-19 PFIZER VACCINE 2021-05-10 00:00:00 Completed [facility] SARS-COV-2 COVID-19 PFIZER VACCINE 2021-05-10 00:00:00 Completed [facility] SARS-COV-2 COVID-19 PFIZER VACCINE 2021-05-10 00:00:00 Completed [facility] SARS-COV-2 COVID-19 PFIZER VACCINE 2021-05-10 00:00:00 Completed [facility] SARS-COV-2 COVID-19 PFIZER VACCINE 2021-05-10 00:00:00 Completed [facility] SARS-COV-2 COVID-19 PFIZER VACCINE 2021-05-10 00:00:00 Completed [facility] SARS-COV-2 COVID-19 PFIZER VACCINE 2021-05-10 00:00:00 Completed [facility] SARS-COV-2 COVID-19 PFIZER VACCINE 2021-05-10 00:00:00 Completed [facility] SARS-COV-2 COVID-19 PFIZER VACCINE 2021-05-10 00:00:00 Completed [facility] SARS-COV-2 COVID-19 PFIZER VACCINE 2021-05-10 00:00:00 Completed [facility] SARS-COV-2 COVID-19 PFIZER VACCINE 2021-05-10 00:00:00 Completed [facility] Influenza Virus Vaccine Quad IM, Preserv and ABX Free 6 MO-64 YRS 2021-04-22 00:00:00 Completed [facility] TDAP 2021-04-22 00:00:00 Completed [facility] Influenza Virus Vaccine Quad IM, Preserv and ABX Free 6 MO-64 YRS 2021-04-22 00:00:00 Completed [facility] TDAP 2021-04-22 00:00:00 Completed [facility] Influenza Virus Vaccine Quad IM, Preserv and ABX Free 6 MO-64 YRS 2021-04-22 00:00:00 Completed [facility] TDAP 2021-04-22 00:00:00 Completed [facility] Influenza Virus Vaccine Quad IM, Preserv and ABX Free 6 MO-64 YRS 2021-04-22 00:00:00 Completed [facility] TDAP 2021-04-22 00:00:00 Completed [facility] Influenza Virus Vaccine Quad IM, Preserv and ABX Free 6 MO-64 YRS 2021-04-22 00:00:00 Completed [facility] TDAP 2021-04-22 00:00:00 Completed [facility] Influenza Virus Vaccine Quad IM, Preserv and ABX Free 6 MO-64 YRS 2021-04-22 00:00:00 Completed [facility] TDAP 2021-04-22 00:00:00 Completed [facility] Influenza Virus Vaccine Quad IM, Preserv and ABX Free 6 MO-64 YRS 2021-04-22 00:00:00 Completed [facility] TDAP 2021-04-22 00:00:00 Completed [facility] Influenza Virus Vaccine Quad IM, Preserv and ABX Free 6 MO-64 YRS 2021-04-22 00:00:00 Completed [facility] TDAP 2021-04-22 00:00:00 Completed [facility] Influenza Virus Vaccine Quad IM, Preserv and ABX Free 6 MO-64 YRS 2021-04-22 00:00:00 Completed [facility] TDAP 2021-04-22 00:00:00 Completed [facility] Influenza Virus Vaccine Quad IM, Preserv and ABX Free 6 MO-64 YRS 2021-04-22 00:00:00 Completed [facility] TDAP 2021-04-22 00:00:00 Completed [facility] Influenza Virus Vaccine Quad IM, Preserv and ABX Free 6 MO-64 YRS 2021-04-22 00:00:00 Completed [facility] TDAP 2021-04-22 00:00:00 Completed [facility] Influenza Virus Vaccine Quad IM, Preserv and ABX Free 6 MO-64 YRS 2021-04-22 00:00:00 Completed [facility] TDAP 2021-04-22 00:00:00 Completed [facility] Influenza Virus Vaccine Quad IM, Preserv and ABX Free 6 MO-64 YRS 2021-04-22 00:00:00 Completed [facility] TDAP 2021-04-22 00:00:00 Completed [facility] Influenza Virus Vaccine Quad IM, Preserv and ABX Free 6 MO-64 YRS 2021-04-22 00:00:00 Completed [facility] TDAP 2021-04-22 00:00:00 Completed [facility] Influenza Virus Vaccine Quad IM, Preserv and ABX Free 6 MO-64 YRS 2021-04-22 00:00:00 Completed [facility] TDAP 2021-04-22 00:00:00 Completed [facility] Influenza Virus Vaccine Quad IM, Preserv and ABX Free 6 MO-64 YRS 2021-04-22 00:00:00 Completed [facility] TDAP 2021-04-22 00:00:00 Completed [facility] Influenza Virus Vaccine Quad IM, Preserv and ABX Free 6 MO-64 YRS 2021-04-22 00:00:00 Completed [facility] TDAP 2021-04-22 00:00:00 Completed [facility] Influenza Virus Vaccine Quad IM, Preserv and ABX Free 6 MO-64 YRS 2021-04-22 00:00:00 Completed [facility] TDAP 2021-04-22 00:00:00 Completed [facility] Influenza Virus Vaccine Quad IM, Preserv and ABX Free 6 MO-64 YRS 2021-04-22 00:00:00 Completed [facility] TDAP 2021-04-22 00:00:00 Completed [facility] Influenza Virus Vaccine Quad IM, Preserv and ABX Free 6 MO-64 YRS 2021-04-22 00:00:00 Completed [facility] TDAP 2021-04-22 00:00:00 Completed [facility] Influenza Virus Vaccine Quad IM, Preserv and ABX Free 6 MO-64 YRS 2021-04-22 00:00:00 Completed [facility] TDAP 2021-04-22 00:00:00 Completed [facility] Influenza Virus Vaccine Quad IM, Preserv and ABX Free 6 MO-64 YRS 2021-04-22 00:00:00 Completed [facility] TDAP 2021-04-22 00:00:00 Completed [facility] Influenza Virus Vaccine Quad IM, Preserv and ABX Free 6 MO-64 YRS 2021-04-22 00:00:00 Completed [facility] TDAP 2021-04-22 00:00:00 Completed [facility] Influenza Virus Vaccine Quad IM, Preserv and ABX Free 6 MO-64 YRS 2021-04-22 00:00:00 Completed [facility] TDAP 2021-04-22 00:00:00 Completed [facility] Influenza Virus Vaccine Quad IM, Preserv and ABX Free 6 MO-64 YRS 2021-04-22 00:00:00 Completed [facility] TDAP 2021-04-22 00:00:00 Completed [facility] Influenza Virus Vaccine Quad IM, Preserv and ABX Free 6 MO-64 YRS 2021-04-22 00:00:00 Completed [facility] TDAP 2021-04-22 00:00:00 Completed [facility] Influenza Virus Vaccine Quad IM, Preserv and ABX Free 6 MO-64 YRS 2021-04-22 00:00:00 Completed [facility] TDAP 2021-04-22 00:00:00 Completed [facility] Influenza Virus Vaccine Quad IM, Preserv and ABX Free 6 MO-64 YRS 2021-04-22 00:00:00 Completed [facility] TDAP 2021-04-22 00:00:00 Completed [facility] Influenza Virus Vaccine Quad IM, Preserv and ABX Free 6 MO-64 YRS 2021-04-22 00:00:00 Completed [facility] TDAP 2021-04-22 00:00:00 Completed [facility] Influenza Virus Vaccine Quad IM, Preserv and ABX Free 6 MO-64 YRS 2021-04-22 00:00:00 Completed [facility] TDAP 2021-04-22 00:00:00 Completed [facility] Influenza Virus Vaccine Quad IM, Preserv and ABX Free 6 MO-64 YRS 2021-04-22 00:00:00 Completed [facility] TDAP 2021-04-22 00:00:00 Completed [facility] Influenza Virus Vaccine Quad IM, Preserv and ABX Free 6 MO-64 YRS 2021-04-22 00:00:00 Completed [facility] TDAP 2021-04-22 00:00:00 Completed [facility] Influenza Virus Vaccine Quad IM, Preserv and ABX Free 6 MO-64 YRS 2021-04-22 00:00:00 Completed [facility] TDAP 2021-04-22 00:00:00 Completed [facility] Influenza Virus Vaccine Quad IM, Preserv and ABX Free 6 MO-64 YRS 2021-04-22 00:00:00 Completed [facility] TDAP 2021-04-22 00:00:00 Completed [facility] Influenza Virus Vaccine Quad IM, Preserv and ABX Free 6 MO-64 YRS 2021-04-22 00:00:00 Completed [facility] TDAP 2021-04-22 00:00:00 Completed [facility] Influenza Virus Vaccine Quad IM, Preserv and ABX Free 6 MO-64 YRS 2021-04-22 00:00:00 Completed [facility] TDAP 2021-04-22 00:00:00 Completed [facility] Influenza Virus Vaccine Quad IM, Preserv and ABX Free 6 MO-64 YRS 2021-04-22 00:00:00 Completed [facility] TDAP 2021-04-22 00:00:00 Completed [facility] Influenza Virus Vaccine Quad IM, Preserv and ABX Free 6 MO-64 YRS 2021-04-22 00:00:00 Completed [facility] TDAP 2021-04-22 00:00:00 Completed [facility] Influenza Virus Vaccine Quad IM, Preserv and ABX Free 6 MO-64 YRS 2021-04-22 00:00:00 Completed [facility] TDAP 2021-04-22 00:00:00 Completed [facility] Influenza Virus Vaccine Quad IM, Preserv and ABX Free 6 MO-64 YRS 2021-04-22 00:00:00 Completed [facility] TDAP 2021-04-22 00:00:00 Completed [facility] Influenza Virus Vaccine Quad IM, Preserv and ABX Free 6 MO-64 YRS 2021-04-22 00:00:00 Completed [facility] TDAP 2021-04-22 00:00:00 Completed [facility] Influenza Virus Vaccine Quad IM, Preserv and ABX Free 6 MO-64 YRS 2021-04-22 00:00:00 Completed [facility] TDAP 2021-04-22 00:00:00 Completed [facility] Influenza Virus Vaccine Quad IM, Preserv and ABX Free 6 MO-64 YRS 2021-04-22 00:00:00 Completed [facility] TDAP 2021-04-22 00:00:00 Completed [facility] Influenza Virus Vaccine Quad IM, Preserv and ABX Free 6 MO-64 YRS (FLUCELVAX) 2021-04-22 00:00:00 Completed [facility] TDAP 2021-04-22 00:00:00 Completed [facility] Influenza Virus Vaccine Quad IM, Preserv and ABX Free 6 MO-64 YRS (FLUCELVAX) 2021-04-22 00:00:00 Completed [facility] TDAP 2021-04-22 00:00:00 Completed [facility] Influenza Virus Vaccine Quad IM, Preserv and ABX Free 6 MO-64 YRS (FLUCELVAX) 2021-04-22 00:00:00 Completed [facility] TDAP 2021-04-22 00:00:00 Completed [facility] Influenza Virus Vaccine Quad IM, Preserv and ABX Free 6 MO-64 YRS (FLUCELVAX) 2021-04-22 00:00:00 Completed [facility] TDAP 2021-04-22 00:00:00 Completed Meningococcal Polysaccharide (groups A, C, Y and W-135) conjugate vaccine (MCV4P) 2021-02-12 00:00:00 Completed [facility] Meningococcal Polysaccharide (groups A, C, Y and W-135) conjugate vaccine (MCV4P) 2021-02-12 00:00:00 Completed [facility] Meningococcal Polysaccharide (groups A, C, Y and W-135) conjugate vaccine (MCV4P) 2021-02-12 00:00:00 Completed [facility] Meningococcal Polysaccharide (groups A, C, Y and W-135) conjugate vaccine (MCV4P) 2021-02-12 00:00:00 Completed [facility] Meningococcal Polysaccharide (groups A, C, Y and W-135) conjugate vaccine (MCV4P) 2021-02-12 00:00:00 Completed [facility] Meningococcal Polysaccharide (groups A, C, Y and W-135) conjugate vaccine (MCV4P) 2021-02-12 00:00:00 Completed [facility] Meningococcal Polysaccharide (groups A, C, Y and W-135) conjugate vaccine (MCV4P) 2021-02-12 00:00:00 Completed [facility] Meningococcal Polysaccharide (groups A, C, Y and W-135) conjugate vaccine (MCV4P) 2021-02-12 00:00:00 Completed [facility] Meningococcal Polysaccharide (groups A, C, Y and W-135) conjugate vaccine (MCV4P) 2021-02-12 00:00:00 Completed [facility] Meningococcal Polysaccharide (groups A, C, Y and W-135) conjugate vaccine (MCV4P) 2021-02-12 00:00:00 Completed [facility] Meningococcal Polysaccharide (groups A, C, Y and W-135) conjugate vaccine (MCV4P) 2021-02-12 00:00:00 Completed [facility] Meningococcal Polysaccharide (groups A, C, Y and W-135) conjugate vaccine (MCV4P) 2021-02-12 00:00:00 Completed [facility] Meningococcal Polysaccharide (groups A, C, Y and W-135) conjugate vaccine (MCV4P) 2021-02-12 00:00:00 Completed [facility] Meningococcal Polysaccharide (groups A, C, Y and W-135) conjugate vaccine (MCV4P) 2021-02-12 00:00:00 Completed [facility] Meningococcal Polysaccharide (groups A, C, Y and W-135) conjugate vaccine (MCV4P) 2021-02-12 00:00:00 Completed [facility] Meningococcal Polysaccharide (groups A, C, Y and W-135) conjugate vaccine (MCV4P) 2021-02-12 00:00:00 Completed [facility] Meningococcal Polysaccharide (groups A, C, Y and W-135) conjugate vaccine (MCV4P) 2021-02-12 00:00:00 Completed [facility] Meningococcal Polysaccharide (groups A, C, Y and W-135) conjugate vaccine (MCV4P) 2021-02-12 00:00:00 Completed [facility] Meningococcal Polysaccharide (groups A, C, Y and W-135) conjugate vaccine (MCV4P) 2021-02-12 00:00:00 Completed [facility] Meningococcal Polysaccharide (groups A, C, Y and W-135) conjugate vaccine (MCV4P) 2021-02-12 00:00:00 Completed [facility] Meningococcal Polysaccharide (groups A, C, Y and W-135) conjugate vaccine (MCV4P) 2021-02-12 00:00:00 Completed [facility] Meningococcal Polysaccharide (groups A, C, Y and W-135) conjugate vaccine (MCV4P) 2021-02-12 00:00:00 Completed [facility] Meningococcal Polysaccharide (groups A, C, Y and W-135) conjugate vaccine (MCV4P) 2021-02-12 00:00:00 Completed [facility] Meningococcal Polysaccharide (groups A, C, Y and W-135) conjugate vaccine (MCV4P) 2021-02-12 00:00:00 Completed [facility] Meningococcal Polysaccharide (groups A, C, Y and W-135) conjugate vaccine (MCV4P) 2021-02-12 00:00:00 Completed [facility] Meningococcal Polysaccharide (groups A, C, Y and W-135) conjugate vaccine (MCV4P) 2021-02-12 00:00:00 Completed [facility] Meningococcal Polysaccharide (groups A, C, Y and W-135) conjugate vaccine (MCV4P) 2021-02-12 00:00:00 Completed [facility] Meningococcal Polysaccharide (groups A, C, Y and W-135) conjugate vaccine (MCV4P) 2021-02-12 00:00:00 Completed [facility] Meningococcal Polysaccharide (groups A, C, Y and W-135) conjugate vaccine (MCV4P) 2021-02-12 00:00:00 Completed [facility] Meningococcal Polysaccharide (groups A, C, Y and W-135) conjugate vaccine (MCV4P) 2021-02-12 00:00:00 Completed SARS-COV-2 COVID-19 PFIZER VACCINE 2020-09-19 00:00:00 Completed [facility] SARS-COV-2 COVID-19 PFIZER VACCINE 2020-09-19 00:00:00 Completed [facility] SARS-COV-2 COVID-19 PFIZER VACCINE 2020-09-19 00:00:00 Completed [facility] SARS-COV-2 COVID-19 PFIZER VACCINE 2020-09-19 00:00:00 Completed [facility] SARS-COV-2 COVID-19 PFIZER VACCINE 2020-09-19 00:00:00 Completed [facility] SARS-COV-2 COVID-19 PFIZER VACCINE 2020-09-19 00:00:00 Completed [facility] SARS-COV-2 COVID-19 PFIZER VACCINE 2020-09-19 00:00:00 Completed [facility] SARS-COV-2 COVID-19 PFIZER VACCINE 2020-09-19 00:00:00 Completed [facility] SARS-COV-2 COVID-19 PFIZER VACCINE 2020-09-19 00:00:00 Completed [facility] SARS-COV-2 COVID-19 PFIZER VACCINE 2020-09-19 00:00:00 Completed [facility] SARS-COV-2 COVID-19 PFIZER VACCINE 2020-09-19 00:00:00 Completed [facility] SARS-COV-2 COVID-19 PFIZER VACCINE 2020-09-19 00:00:00 Completed [facility] SARS-COV-2 COVID-19 PFIZER VACCINE 2020-09-19 00:00:00 Completed [facility] SARS-COV-2 COVID-19 PFIZER VACCINE 2020-09-19 00:00:00 Completed [facility] SARS-COV-2 COVID-19 PFIZER VACCINE 2020-09-19 00:00:00 Completed [facility] SARS-COV-2 COVID-19 PFIZER VACCINE 2020-09-19 00:00:00 Completed [facility] SARS-COV-2 COVID-19 PFIZER VACCINE 2020-09-19 00:00:00 Completed [facility] SARS-COV-2 COVID-19 PFIZER VACCINE 2020-09-19 00:00:00 Completed [facility] SARS-COV-2 COVID-19 PFIZER VACCINE 2020-09-19 00:00:00 Completed [facility] SARS-COV-2 COVID-19 PFIZER VACCINE 2020-09-19 00:00:00 Completed [facility] SARS-COV-2 COVID-19 PFIZER VACCINE 2020-09-19 00:00:00 Completed [facility] SARS-COV-2 COVID-19 PFIZER VACCINE 2020-09-19 00:00:00 Completed [facility] SARS-COV-2 COVID-19 PFIZER VACCINE 2020-09-19 00:00:00 Completed [facility] SARS-COV-2 COVID-19 PFIZER VACCINE 2020-09-19 00:00:00 Completed [facility] [facility] [place] SARS-COV-2 COVID-19 PFIZER VACCINE 2020-09-19 00:00:00 Completed [facility] [place] SARS-COV-2 COVID-19 PFIZER VACCINE 2020-09-19 00:00:00 Completed [facility] [place] SARS-COV-2 COVID-19 PFIZER VACCINE 2020-09-19 00:00:00 Completed [facility] [place] SARS-COV-2 COVID-19 PFIZER VACCINE 2020-09-19 00:00:00 Completed [facility] [place] SARS-COV-2 COVID-19 PFIZER VACCINE 2020-09-19 00:00:00 Completed [facility] [place] SARS-COV-2 COVID-19 PFIZER VACCINE 2020-09-19 00:00:00 Completed [facility] [place] SARS-COV-2 COVID-19 PFIZER VACCINE 2020-09-19 00:00:00 Completed [facility] [place] SARS-COV-2 COVID-19 PFIZER VACCINE 2020-09-19 00:00:00 Completed [facility] [place] SARS-COV-2 COVID-19 PFIZER VACCINE 2020-09-19 00:00:00 Completed [facility] [place] SARS-COV-2 COVID-19 PFIZER VACCINE 2020-09-19 00:00:00 Completed [facility] [place] SARS-COV-2 COVID-19 PFIZER VACCINE 2020-09-19 00:00:00 Completed [facility] [place] SARS-COV-2 COVID-19 PFIZER VACCINE 2020-09-19 00:00:00 Completed [facility] [place] SARS-COV-2 COVID-19 PFIZER VACCINE 2020-09-19 00:00:00 Completed [facility] [place] SARS-COV-2 COVID-19 PFIZER VACCINE 2020-09-19 00:00:00 Completed [facility] [place] SARS-COV-2 COVID-19 PFIZER VACCINE 2020-09-19 00:00:00 Completed [facility] [place] SARS-COV-2 COVID-19 PFIZER VACCINE 2020-09-19 00:00:00 Completed [facility] [place] SARS-COV-2 COVID-19 PFIZER VACCINE 2020-09-19 00:00:00 Completed [facility] [place] SARS-COV-2 COVID-19 PFIZER VACCINE 2020-09-19 00:00:00 Completed [facility] [place] SARS-COV-2 COVID-19 PFIZER VACCINE 2020-09-19 00:00:00 Completed [facility] [place] SARS-COV-2 COVID-19 PFIZER VACCINE 2020-09-19 00:00:00 Completed [facility] [place] SARS-COV-2 COVID-19 PFIZER VACCINE 2020-09-19 00:00:00 Completed [facility] [place] SARS-COV-2 COVID-19 PFIZER VACCINE 2020-09-19 00:00:00 Completed [facility] [place] SARS-COV-2 COVID-19 PFIZER VACCINE 2020-09-19 00:00:00 Completed [facility] [place] SARS-COV-2 COVID-19 PFIZER VACCINE 2020-08-29 00:00:00 Completed [facility] [place] SARS-COV-2 COVID-19 PFIZER VACCINE 2020-08-29 00:00:00 Completed [facility] [place] SARS-COV-2 COVID-19 PFIZER VACCINE 2020-08-29 00:00:00 Completed [facility] [place] SARS-COV-2 COVID-19 PFIZER VACCINE 2020-08-29 00:00:00 Completed [facility] [place] SARS-COV-2 COVID-19 PFIZER VACCINE 2020-08-29 00:00:00 Completed [facility] [place] SARS-COV-2 COVID-19 PFIZER VACCINE 2020-08-29 00:00:00 Completed [facility] [place] SARS-COV-2 COVID-19 PFIZER VACCINE 2020-08-29 00:00:00 Completed [facility] [place] SARS-COV-2 COVID-19 PFIZER VACCINE 2020-08-29 00:00:00 Completed [facility] [place] SARS-COV-2 COVID-19 PFIZER VACCINE 2020-08-29 00:00:00 Completed [facility] [place] SARS-COV-2 COVID-19 PFIZER VACCINE 2020-08-29 00:00:00 Completed [facility] [place] SARS-COV-2 COVID-19 PFIZER VACCINE 2020-08-29 00:00:00 Completed [facility] [place] SARS-COV-2 COVID-19 PFIZER VACCINE 2020-08-29 00:00:00 Completed [facility] [place] SARS-COV-2 COVID-19 PFIZER VACCINE 2020-08-29 00:00:00 Completed [facility] [place] SARS-COV-2 COVID-19 PFIZER VACCINE 2020-08-29 00:00:00 Completed [facility] [place] SARS-COV-2 COVID-19 PFIZER VACCINE 2020-08-29 00:00:00 Completed [facility] [place] SARS-COV-2 COVID-19 PFIZER VACCINE 2020-08-29 00:00:00 Completed [facility] [place] SARS-COV-2 COVID-19 PFIZER VACCINE 2020-08-29 00:00:00 Completed [facility] [place] SARS-COV-2 COVID-19 PFIZER VACCINE 2020-08-29 00:00:00 Completed [facility] [place] SARS-COV-2 COVID-19 PFIZER VACCINE 2020-08-29 00:00:00 Completed [facility] [place] SARS-COV-2 COVID-19 PFIZER VACCINE 2020-08-29 00:00:00 Completed [facility] [place] SARS-COV-2 COVID-19 PFIZER VACCINE 2020-08-29 00:00:00 Completed [facility] [place] SARS-COV-2 COVID-19 PFIZER VACCINE 2020-08-29 00:00:00 Completed [facility] [place] SARS-COV-2 COVID-19 PFIZER VACCINE 2020-08-29 00:00:00 Completed [facility] [place] SARS-COV-2 COVID-19 PFIZER VACCINE 2020-08-29 00:00:00 Completed [facility] [place] SARS-COV-2 COVID-19 PFIZER VACCINE 2020-08-29 00:00:00 Completed [facility] [place] SARS-COV-2 COVID-19 PFIZER VACCINE 2020-08-29 00:00:00 Completed [facility] [place] SARS-COV-2 COVID-19 PFIZER VACCINE 2020-08-29 00:00:00 Completed [facility] [place] SARS-COV-2 COVID-19 PFIZER VACCINE 2020-08-29 00:00:00 Completed [facility] [place] SARS-COV-2 COVID-19 PFIZER VACCINE 2020-08-29 00:00:00 Completed [facility] [place] SARS-COV-2 COVID-19 PFIZER VACCINE 2020-08-29 00:00:00 Completed [facility] [place] SARS-COV-2 COVID-19 PFIZER VACCINE 2020-08-29 00:00:00 Completed [facility] [place] SARS-COV-2 COVID-19 PFIZER VACCINE 2020-08-29 00:00:00 Completed [facility] [place] SARS-COV-2 COVID-19 PFIZER VACCINE 2020-08-29 00:00:00 Completed [facility] [place] SARS-COV-2 COVID-19 PFIZER VACCINE 2020-08-29 00:00:00 Completed [facility] [place] SARS-COV-2 COVID-19 PFIZER VACCINE 2020-08-29 00:00:00 Completed [facility] [place] SARS-COV-2 COVID-19 PFIZER VACCINE 2020-08-29 00:00:00 Completed [facility] [place] SARS-COV-2 COVID-19 PFIZER VACCINE 2020-08-29 00:00:00 Completed [facility] [place] SARS-COV-2 COVID-19 PFIZER VACCINE 2020-08-29 00:00:00 Completed [facility] [place] SARS-COV-2 COVID-19 PFIZER VACCINE 2020-08-29 00:00:00 Completed [facility] [place] SARS-COV-2 COVID-19 PFIZER VACCINE 2020-08-29 00:00:00 Completed [facility] [place] SARS-COV-2 COVID-19 PFIZER VACCINE 2020-08-29 00:00:00 Completed [facility] [place] SARS-COV-2 COVID-19 PFIZER VACCINE 2020-08-29 00:00:00 Completed [facility] [place] SARS-COV-2 COVID-19 PFIZER VACCINE 2020-08-29 00:00:00 Completed [facility] [place] SARS-COV-2 COVID-19 PFIZER VACCINE 2020-08-29 00:00:00 Completed [facility] [place] SARS-COV-2 COVID-19 PFIZER VACCINE 2020-08-29 00:00:00 Completed [facility] [place] SARS-COV-2 COVID-19 PFIZER VACCINE 2020-08-29 00:00:00 Completed [facility] [place] SARS-COV-2 COVID-19 PFIZER VACCINE 2020-08-29 00:00:00 Completed [facility] [place] SARS-COV-2 COVID-19 PFIZER VACCINE Unknown Completed [facility] [place] Influenza Virus Vaccine Quad IM, Preserv and ABX Free 6 MO-64 YRS (FLUCELVAX) Unknown Completed [facility] [place] TDAP Unknown Completed [facility] [place] Meningococcal Polysaccharide (groups A, C, Y and W-135) conjugate vaccine (MCV4P) Unknown Completed [facility] SARS-COV-2 COVID-19 PFIZER VACCINE Unknown Completed [facility] [place] Influenza Virus Vaccine Quad IM, Preserv and ABX Free 6 MO-64 YRS (FLUCELVAX) Unknown Completed [facility] [place] TDAP Unknown Completed [facility] [place] Meningococcal Polysaccharide (groups A, C, Y and W-135) conjugate vaccine (MCV4P) Unknown Completed [facility] SARS-COV-2 COVID-19 PFIZER VACCINE Unknown Completed [facility] [place] Influenza Virus Vaccine Quad IM, Preserv and ABX Free 6 MO-64 YRS (FLUCELVAX) Unknown Completed [facility] [place] TDAP Unknown Completed [facility] [place] Meningococcal Polysaccharide (groups A, C, Y and W-135) conjugate vaccine (MCV4P) Unknown Completed [facility] SARS-COV-2 COVID-19 PFIZER VACCINE Unknown Completed [facility] [place] Influenza Virus Vaccine Quad IM, Preserv and ABX Free 6 MO-64 YRS (FLUCELVAX) Unknown Completed [facility] [place] TDAP Unknown Completed [facility] [place] Meningococcal Polysaccharide (groups A, C, Y and W-135) conjugate vaccine (MCV4P) Unknown Completed [facility] SARS-COV-2 COVID-19 PFIZER VACCINE Unknown Completed [facility] [place] Influenza Virus Vaccine Quad IM, Preserv and ABX Free 6 MO-64 YRS (FLUCELVAX) Unknown Completed [facility] [place] TDAP Unknown Completed [facility] [place] Meningococcal Polysaccharide (groups A, C, Y and W-135) conjugate vaccine (MCV4P) Unknown Completed [facility] SARS-COV-2 COVID-19 PFIZER VACCINE Unknown Completed [facility] [place] Influenza Virus Vaccine Quad IM, Preserv and ABX Free 6 MO-64 YRS (FLUCELVAX) Unknown Completed [facility] [place] TDAP Unknown Completed [facility] [place] Meningococcal Polysaccharide (groups A, C, Y and W-135) conjugate vaccine (MCV4P) Unknown Completed [facility] SARS-COV-2 COVID-19 PFIZER VACCINE Unknown Completed [facility] [place] Influenza Virus Vaccine Quad IM, Preserv and ABX Free 6 MO-64 YRS (FLUCELVAX) Unknown Completed [facility] [place] TDAP Unknown Completed [facility] [place] Meningococcal Polysaccharide (groups A, C, Y and W-135) conjugate vaccine (MCV4P) Unknown Completed [facility] SARS-COV-2 COVID-19 PFIZER VACCINE Unknown Completed [facility] [place] Influenza Virus Vaccine Quad IM, Preserv and ABX Free 6 MO-64 YRS (FLUCELVAX) Unknown Completed [facility] [place] TDAP Unknown Completed [facility] [place] Meningococcal Polysaccharide (groups A, C, Y and W-135) conjugate vaccine (MCV4P) Unknown Completed [facility] SARS-COV-2 COVID-19 PFIZER VACCINE Unknown Completed [facility] [place] Influenza Virus Vaccine Quad IM, Preserv and ABX Free 6 MO-64 YRS (FLUCELVAX) Unknown Completed [facility] [place] TDAP Unknown Completed [facility] [place] Meningococcal Polysaccharide (groups A, C, Y and W-135) conjugate vaccine (MCV4P) Unknown Completed [facility] TDAP Unknown Completed [facility] [place] Meningococcal Polysaccharide (groups A, C, Y and W-135) conjugate vaccine (MCV4P) Unknown Completed [facility] SARS-COV-2 COVID-19 PFIZER VACCINE Unknown Completed [facility] [place] Influenza Virus Vaccine Quad IM, Preserv and ABX Free 6 MO-64 YRS (FLUCELVAX) Unknown Completed [facility] [place] SARS-COV-2 COVID-19 PFIZER VACCINE Unknown Completed [facility] [place] Influenza Virus Vaccine Quad IM, Preserv and ABX Free 6 MO-64 YRS (FLUCELVAX) Unknown Completed [facility] [place] TDAP Unknown Completed [facility] [place] Meningococcal Polysaccharide (groups A, C, Y and W-135) conjugate vaccine (MCV4P) Unknown Completed [facility] SARS-COV-2 COVID-19 PFIZER VACCINE Unknown Completed [facility] [place] Influenza Virus Vaccine Quad IM, Preserv and ABX Free 6 MO-64 YRS (FLUCELVAX) Unknown Completed [facility] [place] TDAP Unknown Completed [facility] [place] Meningococcal Polysaccharide (groups A, C, Y and W-135) conjugate vaccine (MCV4P) Unknown Completed [facility] SARS-COV-2 COVID-19 PFIZER VACCINE Unknown Completed [facility] [place] Influenza Virus Vaccine Quad IM, Preserv and ABX Free 6 MO-64 YRS (FLUCELVAX) Unknown Completed [facility] [place] TDAP Unknown Completed [facility] [place] Meningococcal Polysaccharide (groups A, C, Y and W-135) conjugate vaccine (MCV4P) Unknown Completed [facility] SARS-COV-2 COVID-19 PFIZER VACCINE Unknown Completed [facility] [place] Influenza Virus Vaccine Quad IM, Preserv and ABX Free 6 MO-64 YRS (FLUCELVAX) Unknown Completed [facility] [place] TDAP Unknown Completed [facility] [place] Meningococcal Polysaccharide (groups A, C, Y and W-135) conjugate vaccine (MCV4P) Unknown Completed [facility] SARS-COV-2 COVID-19 PFIZER VACCINE Unknown Completed [facility] [place] Influenza Virus Vaccine Quad IM, Preserv and ABX Free 6 MO-64 YRS (FLUCELVAX) Unknown Completed [facility] [place] TDAP Unknown Completed [facility] [place] Meningococcal Polysaccharide (groups A, C, Y and W-135) conjugate vaccine (MCV4P) Unknown Completed [facility] SARS-COV-2 COVID-19 PFIZER VACCINE Unknown Completed [facility] [place] Influenza Virus Vaccine Quad IM, Preserv and ABX Free 6 MO-64 YRS (FLUCELVAX) Unknown Completed [facility] [place] TDAP Unknown Completed [facility] [place] Meningococcal Polysaccharide (groups A, C, Y and W-135) conjugate vaccine (MCV4P) Unknown Completed [facility] SARS-COV-2 COVID-19 PFIZER VACCINE Unknown Completed [facility] [place] Influenza Virus Vaccine Quad IM, Preserv and ABX Free 6 MO-64 YRS (FLUCELVAX) Unknown Completed [facility] [place] TDAP Unknown Completed [facility] [place] Meningococcal Polysaccharide (groups A, C, Y and W-135) conjugate vaccine (MCV4P) Unknown Completed [facility] SARS-COV-2 COVID-19 PFIZER VACCINE Unknown Completed [facility] [place] Influenza Virus Vaccine Quad IM, Preserv and ABX Free 6 MO-64 YRS (FLUCELVAX) Unknown Completed [facility] [place] TDAP Unknown Completed [facility] [place] Meningococcal Polysaccharide (groups A, C, Y and W-135) conjugate vaccine (MCV4P) Unknown Completed [facility] SARS-COV-2 COVID-19 PFIZER VACCINE Unknown Completed [facility] [place] Influenza Virus Vaccine Quad IM, Preserv and ABX Free 6 MO-64 YRS (FLUCELVAX) Unknown Completed [facility] [place] TDAP Unknown Completed [facility] [place] Meningococcal Polysaccharide (groups A, C, Y and W-135) conjugate vaccine (MCV4P) Unknown Completed [facility] SARS-COV-2 COVID-19 PFIZER VACCINE Unknown Completed [facility] [place] Influenza Virus Vaccine Quad IM, Preserv and ABX Free 6 MO-64 YRS (FLUCELVAX) Unknown Completed [facility] [place] TDAP Unknown Completed [facility] [place] Meningococcal Polysaccharide (groups A, C, Y and W-135) conjugate vaccine (MCV4P) Unknown Completed [facility] SARS-COV-2 COVID-19 PFIZER VACCINE Unknown Completed [facility] [place] Influenza Virus Vaccine Quad IM, Preserv and ABX Free 6 MO-64 YRS (FLUCELVAX) Unknown Completed [facility] [place] TDAP Unknown Completed [facility] [place] Meningococcal Polysaccharide (groups A, C, Y and W-135) conjugate vaccine (MCV4P) Unknown Completed [facility] SARS-COV-2 COVID-19 PFIZER VACCINE Unknown Completed [facility] [place] Influenza Virus Vaccine Quad IM, Preserv and ABX Free 6 MO-64 YRS (FLUCELVAX) Unknown Completed [facility] [place] TDAP Unknown Completed [facility] [place] Meningococcal Polysaccharide (groups A, C, Y and W-135) conjugate vaccine (MCV4P) Unknown Completed [facility] SARS-COV-2 COVID-19 PFIZER VACCINE Unknown Completed [facility] [place] Influenza Virus Vaccine Quad IM, Preserv and ABX Free 6 MO-64 YRS (FLUCELVAX) Unknown Completed [facility] [place] TDAP Unknown Completed [facility] [place] Meningococcal Polysaccharide (groups A, C, Y and W-135) conjugate vaccine (MCV4P) Unknown Completed [facility] SARS-COV-2 COVID-19 PFIZER VACCINE Unknown Completed [facility] [place] Influenza Virus Vaccine Quad IM, Preserv and ABX Free 6 MO-64 YRS (FLUCELVAX) Unknown Completed [facility] [place] TDAP Unknown Completed [facility] [place] Meningococcal Polysaccharide (groups A, C, Y and W-135) conjugate vaccine (MCV4P) Unknown Completed [facility] TDAP Unknown Completed [facility] [place] Meningococcal Polysaccharide (groups A, C, Y and W-135) conjugate vaccine (MCV4P) Unknown Completed [facility] SARS-COV-2 COVID-19 PFIZER VACCINE Unknown Completed [facility] [place] Influenza Virus Vaccine Quad IM, Preserv and ABX Free 6 MO-64 YRS (FLUCELVAX) Unknown Completed [facility] [place] TDAP Unknown Completed [facility] [place] Meningococcal Polysaccharide (groups A, C, Y and W-135) conjugate vaccine (MCV4P) Unknown Completed [facility] SARS-COV-2 COVID-19 PFIZER VACCINE Unknown Completed [facility] [place] Influenza Virus Vaccine Quad IM, Preserv and ABX Free 6 MO-64 YRS (FLUCELVAX) Unknown Completed [facility] [place] SARS-COV-2 COVID-19 PFIZER VACCINE Unknown Completed [facility] [place] Influenza Virus Vaccine Quad IM, Preserv and ABX Free 6 MO-64 YRS (FLUCELVAX) Unknown Completed [facility] [place] TDAP Unknown Completed [facility] [place] Meningococcal Polysaccharide (groups A, C, Y and W-135) conjugate vaccine (MCV4P) Unknown Completed [facility] SARS-COV-2 COVID-19 PFIZER VACCINE Unknown Completed [facility] [place] Influenza Virus Vaccine Quad IM, Preserv and ABX Free 6 MO-64 YRS (FLUCELVAX) Unknown Completed [facility] [place] TDAP Unknown Completed [facility] [place] Meningococcal Polysaccharide (groups A, C, Y and W-135) conjugate vaccine (MCV4P) Unknown Completed [facility] SARS-COV-2 COVID-19 PFIZER VACCINE Unknown Completed [facility] [place] Influenza Virus Vaccine Quad IM, Preserv and ABX Free 6 MO-64 YRS (FLUCELVAX) Unknown Completed [facility] [place] TDAP Unknown Completed [facility] [place] Meningococcal Polysaccharide (groups A, C, Y and W-135) conjugate vaccine (MCV4P) Unknown Completed [facility] SARS-COV-2 COVID-19 PFIZER VACCINE Unknown Completed [facility] [place] Influenza Virus Vaccine Quad IM, Preserv and ABX Free 6 MO-64 YRS (FLUCELVAX) Unknown Completed [facility] [place] TDAP Unknown Completed [facility] [place] Meningococcal Polysaccharide (groups A, C, Y and W-135) conjugate vaccine (MCV4P) Unknown Completed [facility] SARS-COV-2 COVID-19 PFIZER VACCINE Unknown Completed [facility] [place] Influenza Virus Vaccine Quad IM, Preserv and ABX Free 6 MO-64 YRS (FLUCELVAX) Unknown Completed [facility] [place] TDAP Unknown Completed [facility] [place] Meningococcal Polysaccharide (groups A, C, Y and W-135) conjugate vaccine (MCV4P) Unknown Completed [facility] TDAP Unknown Completed [facility] [place] Meningococcal Polysaccharide (groups A, C, Y and W-135) conjugate vaccine (MCV4P) Unknown Completed [facility] SARS-COV-2 COVID-19 PFIZER VACCINE Unknown Completed [facility] [place] Influenza Virus Vaccine Quad IM, Preserv and ABX Free 6 MO-64 YRS (FLUCELVAX) Unknown Completed [facility] [place] TDAP Unknown Completed [facility] [place] Meningococcal Polysaccharide (groups A, C, Y and W-135) conjugate vaccine (MCV4P) Unknown Completed [facility] SARS-COV-2 COVID-19 PFIZER VACCINE Unknown Completed [facility] [place] Influenza Virus Vaccine Quad IM, Preserv and ABX Free 6 MO-64 YRS (FLUCELVAX) Unknown Completed [facility] [place] SARS-COV-2 COVID-19 PFIZER VACCINE Unknown Completed [facility] [place] Influenza Virus Vaccine Quad IM, Preserv and ABX Free 6 MO-64 YRS (FLUCELVAX) Unknown Completed [facility] [place] TDAP Unknown Completed [facility] [place] Meningococcal Polysaccharide (groups A, C, Y and W-135) conjugate vaccine (MCV4P) Unknown Completed [facility] SARS-COV-2 COVID-19 PFIZER VACCINE Unknown Completed [facility] [place] Influenza Virus Vaccine Quad IM, Preserv and ABX Free 6 MO-64 YRS (FLUCELVAX) Unknown Completed [facility] TDAP Unknown Completed [facility] Meningococcal Polysaccharide (groups A, C, Y and W-135) conjugate vaccine (MCV4P) Unknown Completed [facility] SARS-COV-2 COVID-19 PFIZER VACCINE Unknown Completed [facility] Influenza Virus Vaccine Quad IM, Preserv and ABX Free 6 MO-64 YRS (FLUCELVAX) Unknown Completed [facility] TDAP Unknown Completed [facility] Meningococcal Polysaccharide (groups A, C, Y and W-135) conjugate vaccine (MCV4P) Unknown Completed [facility] SARS-COV-2 COVID-19 PFIZER VACCINE Unknown Completed [facility] Influenza Virus Vaccine Quad IM, Preserv and ABX Free 6 MO-64 YRS (FLUCELVAX) Unknown Completed [facility] TDAP Unknown Completed [facility] Meningococcal Polysaccharide (groups A, C, Y and W-135) conjugate vaccine (MCV4P) Unknown Completed [facility] TDAP Unknown Completed [facility] Meningococcal Polysaccharide (groups A, C, Y and W-135) conjugate vaccine (MCV4P) Unknown Completed [facility] SARS-COV-2 COVID-19 PFIZER VACCINE Unknown Completed [facility] Influenza Virus Vaccine Quad IM, Preserv and ABX Free 6 MO-64 YRS (FLUCELVAX) Unknown Completed [facility] SARS-COV-2 COVID-19 PFIZER VACCINE Unknown Completed [facility] Influenza Virus Vaccine Quad IM, Preserv and ABX Free 6 MO-64 YRS (FLUCELVAX) Unknown Completed [facility] TDAP Unknown Completed [facility] Meningococcal Polysaccharide (groups A, C, Y and W-135) conjugate vaccine (MCV4P) Unknown Completed [facility] TDAP Unknown Completed [facility] Meningococcal Polysaccharide (groups A, C, Y and W-135) conjugate vaccine (MCV4P) Unknown Completed [facility] SARS-COV-2 COVID-19 PFIZER VACCINE Unknown Completed [facility] Influenza Virus Vaccine Quad IM, Preserv and ABX Free 6 MO-64 YRS (FLUCELVAX) Unknown Completed [facility] SARS-COV-2 COVID-19 PFIZER VACCINE Unknown Completed [facility] Influenza Virus Vaccine Quad IM, Preserv and ABX Free 6 MO-64 YRS (FLUCELVAX) Unknown Completed [facility] TDAP Unknown Completed [facility] Meningococcal Polysaccharide (groups A, C, Y and W-135) conjugate vaccine (MCV4P) Unknown Completed [facility] SARS-COV-2 COVID-19 PFIZER VACCINE Unknown Completed [facility] Influenza Virus Vaccine Quad IM, Preserv and ABX Free 6 MO-64 YRS (FLUCELVAX) Unknown Completed [facility] TDAP Unknown Completed [facility] Meningococcal Polysaccharide (groups A, C, Y and W-135) conjugate vaccine (MCV4P) Unknown Completed [facility] SARS-COV-2 COVID-19 PFIZER VACCINE Unknown Completed [facility] Influenza Virus Vaccine Quad IM, Preserv and ABX Free 6 MO-64 YRS (FLUCELVAX) Unknown Completed [facility] TDAP Unknown Completed [facility] Meningococcal Polysaccharide (groups A, C, Y and W-135) conjugate vaccine (MCV4P) Unknown Completed [facility] SARS-COV-2 COVID-19 PFIZER VACCINE Unknown Completed [facility] Influenza Virus Vaccine Quad IM, Preserv and ABX Free 6 MO-64 YRS (FLUCELVAX) Unknown Completed [facility] TDAP Unknown Completed [facility] Meningococcal Polysaccharide (groups A, C, Y and W-135) conjugate vaccine (MCV4P) Unknown Completed [facility] SARS-COV-2 COVID-19 PFIZER VACCINE Unknown Completed [facility] Influenza Virus Vaccine Quad IM, Preserv and ABX Free 6 MO-64 YRS (FLUCELVAX) Unknown Completed [facility] TDAP Unknown Completed [facility] Meningococcal Polysaccharide (groups A, C, Y and W-135) conjugate vaccine (MCV4P) Unknown Completed [facility] SARS-COV-2 COVID-19 PFIZER VACCINE Unknown Completed [facility] Influenza Virus Vaccine Quad IM, Preserv and ABX Free 6 MO-64 YRS (FLUCELVAX) Unknown Completed [facility] TDAP Unknown Completed [facility] Meningococcal Polysaccharide (groups A, C, Y and W-135) conjugate vaccine (MCV4P) Unknown Completed [facility] SARS-COV-2 COVID-19 PFIZER VACCINE Unknown Completed [facility] Influenza Virus Vaccine Quad IM, Preserv and ABX Free 6 MO-64 YRS (FLUCELVAX) Unknown Completed [facility] TDAP Unknown Completed [facility] Meningococcal Polysaccharide (groups A, C, Y and W-135) conjugate vaccine (MCV4P) Unknown Completed [facility] SARS-COV-2 COVID-19 PFIZER VACCINE Unknown Completed [facility] Influenza Virus Vaccine Quad IM, Preserv and ABX Free 6 MO-64 YRS (FLUCELVAX) Unknown Completed [facility] TDAP Unknown Completed [facility] Meningococcal Polysaccharide (groups A, C, Y and W-135) conjugate vaccine (MCV4P) Unknown Completed [facility] TDAP Unknown Completed [facility] Meningococcal Polysaccharide (groups A, C, Y and W-135) conjugate vaccine (MCV4P) Unknown Completed [facility] SARS-COV-2 COVID-19 PFIZER VACCINE Unknown Completed [facility] Influenza Virus Vaccine Quad IM, Preserv and ABX Free 6 MO-64 YRS (FLUCELVAX) Unknown Completed [facility] SARS-COV-2 COVID-19 PFIZER VACCINE Unknown Completed [facility] Influenza Virus Vaccine Quad IM, Preserv and ABX Free 6 MO-64 YRS (FLUCELVAX) Unknown Completed [facility] TDAP Unknown Completed [facility] Meningococcal Polysaccharide (groups A, C, Y and W-135) conjugate vaccine (MCV4P) Unknown Completed [facility] SARS-COV-2 COVID-19 PFIZER VACCINE Unknown Completed [facility] Influenza Virus Vaccine Quad IM, Preserv and ABX Free 6 MO-64 YRS (FLUCELVAX) Unknown Completed [facility] TDAP Unknown Completed [facility] Meningococcal Polysaccharide (groups A, C, Y and W-135) conjugate vaccine (MCV4P) Unknown Completed [facility] SARS-COV-2 COVID-19 PFIZER VACCINE Unknown Completed [facility] Influenza Virus Vaccine Quad IM, Preserv and ABX Free 6 MO-64 YRS (FLUCELVAX) Unknown Completed [facility] TDAP Unknown Completed [facility] Meningococcal Polysaccharide (groups A, C, Y and W-135) conjugate vaccine (MCV4P) Unknown Completed [facility] SARS-COV-2 COVID-19 PFIZER VACCINE Unknown Completed [facility] Influenza Virus Vaccine Quad IM, Preserv and ABX Free 6 MO-64 YRS (FLUCELVAX) Unknown Completed [facility] TDAP Unknown Completed [facility] Meningococcal Polysaccharide (groups A, C, Y and W-135) conjugate vaccine (MCV4P) Unknown Completed [facility] SARS-COV-2 COVID-19 PFIZER VACCINE Unknown Completed [facility] Influenza Virus Vaccine Quad IM, Preserv and ABX Free 6 MO-64 YRS (FLUCELVAX) Unknown Completed [facility] TDAP Unknown Completed [facility] Meningococcal Polysaccharide (groups A, C, Y and W-135) conjugate vaccine (MCV4P) Unknown Completed [facility] SARS-COV-2 COVID-19 PFIZER VACCINE Unknown Completed [facility] Influenza Virus Vaccine Quad IM, Preserv and ABX Free 6 MO-64 YRS (FLUCELVAX) Unknown Completed [facility] TDAP Unknown Completed [facility] Meningococcal Polysaccharide (groups A, C, Y and W-135) conjugate vaccine (MCV4P) Unknown Completed [facility] SARS-COV-2 COVID-19 PFIZER VACCINE Unknown Completed [facility] Influenza Virus Vaccine Quad IM, Preserv and ABX Free 6 MO-64 YRS (FLUCELVAX) Unknown Completed [facility] TDAP Unknown Completed [facility] Meningococcal Polysaccharide (groups A, C, Y and W-135) conjugate vaccine (MCV4P) Unknown Completed [facility] SARS-COV-2 COVID-19 PFIZER VACCINE Unknown Completed [facility] Influenza Virus Vaccine Quad IM, Preserv and ABX Free 6 MO-64 YRS (FLUCELVAX) Unknown Completed [facility] TDAP Unknown Completed [facility] Meningococcal Polysaccharide (groups A, C, Y and W-135) conjugate vaccine (MCV4P) Unknown Completed [facility] SARS-COV-2 COVID-19 PFIZER VACCINE Unknown Completed [facility] Influenza Virus Vaccine Quad IM, Preserv and ABX Free 6 MO-64 YRS (FLUCELVAX) Unknown Completed [facility] TDAP Unknown Completed [facility] Meningococcal Polysaccharide (groups A, C, Y and W-135) conjugate vaccine (MCV4P) Unknown Completed [facility] SARS-COV-2 COVID-19 PFIZER VACCINE Unknown Completed [facility] Influenza Virus Vaccine Quad IM, Preserv and ABX Free 6 MO-64 YRS (FLUCELVAX) Unknown Completed [facility] TDAP Unknown Completed [facility] Meningococcal Polysaccharide (groups A, C, Y and W-135) conjugate vaccine (MCV4P) Unknown Completed [facility] SARS-COV-2 COVID-19 PFIZER VACCINE Unknown Completed [facility] Influenza Virus Vaccine Quad IM, Preserv and ABX Free 6 MO-64 YRS (FLUCELVAX) Unknown Completed [facility] TDAP Unknown Completed [facility] Meningococcal Polysaccharide (groups A, C, Y and W-135) conjugate vaccine (MCV4P) Unknown Completed [facility] SARS-COV-2 COVID-19 PFIZER VACCINE Unknown Completed [facility] Influenza Virus Vaccine Quad IM, Preserv and ABX Free 6 MO-64 YRS (FLUCELVAX) Unknown Completed [facility] TDAP Unknown Completed [facility] Meningococcal Polysaccharide (groups A, C, Y and W-135) conjugate vaccine (MCV4P) Unknown Completed [facility] SARS-COV-2 COVID-19 PFIZER VACCINE Unknown Completed [facility] Influenza Virus Vaccine Quad IM, Preserv and ABX Free 6 MO-64 YRS (FLUCELVAX) Unknown Completed [facility] TDAP Unknown Completed [facility] Meningococcal Polysaccharide (groups A, C, Y and W-135) conjugate vaccine (MCV4P) Unknown Completed [facility] SARS-COV-2 COVID-19 PFIZER VACCINE Unknown Completed [facility] Influenza Virus Vaccine Quad IM, Preserv and ABX Free 6 MO-64 YRS (FLUCELVAX) Unknown Completed [facility] TDAP Unknown Completed [facility] Meningococcal Polysaccharide (groups A, C, Y and W-135) conjugate vaccine (MCV4P) Unknown Completed [facility] SARS-COV-2 COVID-19 PFIZER VACCINE Unknown Completed [facility] Influenza Virus Vaccine Quad IM, Preserv and ABX Free 6 MO-64 YRS (FLUCELVAX) Unknown Completed [facility] TDAP Unknown Completed [facility] Meningococcal Polysaccharide (groups A, C, Y and W-135) conjugate vaccine (MCV4P) Unknown Completed [facility] SARS-COV-2 COVID-19 PFIZER VACCINE Unknown Completed [facility] Influenza Virus Vaccine Quad IM, Preserv and ABX Free 6 MO-64 YRS (FLUCELVAX) Unknown Completed [facility] TDAP Unknown Completed [facility] Meningococcal Polysaccharide (groups A, C, Y and W-135) conjugate vaccine (MCV4P) Unknown Completed [facility] SARS-COV-2 COVID-19 PFIZER VACCINE Unknown Completed [facility] Influenza Virus Vaccine Quad IM, Preserv and ABX Free 6 MO-64 YRS (FLUCELVAX) Unknown Completed [facility] TDAP Unknown Completed [facility] Meningococcal Polysaccharide (groups A, C, Y and W-135) conjugate vaccine (MCV4P) Unknown Completed [facility] SARS-COV-2 COVID-19 PFIZER VACCINE Unknown Completed [facility] Influenza Virus Vaccine Quad IM, Preserv and ABX Free 6 MO-64 YRS (FLUCELVAX) Unknown Completed [facility] TDAP Unknown Completed [facility] Meningococcal Polysaccharide (groups A, C, Y and W-135) conjugate vaccine (MCV4P) Unknown Completed [facility] SARS-COV-2 COVID-19 PFIZER VACCINE Unknown Completed [facility] Influenza Virus Vaccine Quad IM, Preserv and ABX Free 6 MO-64 YRS (FLUCELVAX) Unknown Completed [facility] TDAP Unknown Completed [facility] Meningococcal Polysaccharide (groups A, C, Y and W-135) conjugate vaccine (MCV4P) Unknown Completed [facility] SARS-COV-2 COVID-19 PFIZER VACCINE Unknown Completed [facility] Influenza Virus Vaccine Quad IM, Preserv and ABX Free 6 MO-64 YRS (FLUCELVAX) Unknown Completed [facility] TDAP Unknown Completed [facility] Meningococcal Polysaccharide (groups A, C, Y and W-135) conjugate vaccine (MCV4P) Unknown Completed [facility] SARS-COV-2 COVID-19 PFIZER VACCINE Unknown Completed [facility] Influenza Virus Vaccine Quad IM, Preserv and ABX Free 6 MO-64 YRS (FLUCELVAX) Unknown Completed [facility] TDAP Unknown Completed [facility] Meningococcal Polysaccharide (groups A, C, Y and W-135) conjugate vaccine (MCV4P) Unknown Completed [facility] SARS-COV-2 COVID-19 PFIZER VACCINE Unknown Completed [facility] Influenza Virus Vaccine Quad IM, Preserv and ABX Free 6 MO-64 YRS (FLUCELVAX) Unknown Completed [facility] TDAP Unknown Completed [facility] Meningococcal Polysaccharide (groups A, C, Y and W-135) conjugate vaccine (MCV4P) Unknown Completed [facility] SARS-COV-2 COVID-19 PFIZER VACCINE Unknown Completed [facility] Influenza Virus Vaccine Quad IM, Preserv and ABX Free 6 MO-64 YRS (FLUCELVAX) Unknown Completed [facility] TDAP Unknown Completed [facility] Meningococcal Polysaccharide (groups A, C, Y and W-135) conjugate vaccine (MCV4P) Unknown Completed [facility] Flu Injectable MDCK Pres-Free (FLUCELVAX) Unknown Completed [facility] SARS-COV-2 COVID-19 PFIZER VACCINE Unknown Completed [facility] Influenza Virus Vaccine Quad IM, Preserv and ABX Free 6 MO-64 YRS (FLUCELVAX) Unknown Completed [facility] TDAP Unknown Completed [facility] Meningococcal Polysaccharide (groups A, C, Y and W-135) conjugate vaccine (MCV4P) Unknown Completed [facility] Vital Signs Vital Name Observation Time Observation Value Comments S ource Systolic blood pressure 2024-04-05 16:23:00 124 mm[Hg] [facility] Diastolic blood pressure 2024-04-05 16:23:00 73 mm[Hg] [facility] Heart rate 2024-04-05 16:23:00 103 /min [facility] Body temperature 2024-04-05 16:23:00 36.28 Janet [facility] Body height 2024-04-05 16:23:00 152.4 cm [facility] Body weight 2024-04-05 16:23:00 96.662 kg [facility] BMI 2024-04-05 16:23:00 41.62 kg/m2 [facility] Oxygen saturation in Arterial blood by Pulse oximetry 2024-04-05 16:23:00 95 /min [facility] Systolic blood pressure 2024-03-25 21:33:00 126 mm[Hg] [facility] Diastolic blood pressure 2024-03-25 21:33:00 81 mm[Hg] [facility] Heart rate 2024-03-25 21:33:00 96 /min [facility] Respiratory rate 2024-03-25 21:33:00 18 /min [facility] Body height 2024-03-25 21:33:00 152.4 cm [facility] Body weight 2024-03-25 21:33:00 98.022 kg [facility] BMI 2024-03-25 21:33:00 42.20 kg/m2 [facility] Oxygen saturation in Arterial blood by Pulse oximetry 2024-03-25 21:33:00 98 /min [facility] Systolic blood pressure 2024-03-23 18:39:00 114 mm[Hg] [facility] Diastolic blood pressure 2024-03-23 18:39:00 69 mm[Hg] [facility] Heart rate 2024-03-23 18:39:00 79 /min [facility] Body height 2024-03-23 18:39:00 152.4 cm [facility] Body weight 2024-03-23 18:39:00 96.163 kg [facility] BMI 2024-03-23 18:39:00 41.40 kg/m2 [facility] Oxygen saturation in Arterial blood by Pulse oximetry 2024-03-23 18:39:00 97 /min [facility] Systolic blood pressure 2024-02-18 14:23:00 111 mm[Hg] [facility] Diastolic blood pressure 2024-02-18 14:23:00 77 mm[Hg] [facility] Heart rate 2024-02-18 14:23:00 90 /min [facility] Body temperature 2024-02-18 14:23:00 36.72 Janet [facility] Respiratory rate 2024-02-18 14:23:00 18 /min [facility] Body height 2024-02-18 14:23:00 152.4 cm [facility] 2024-02-18 14:23:[address] [facility] BMI 2024-02-18 14:23:00 40.04 kg/m2 [facility] Oxygen saturation in Arterial blood by Pulse oximetry 2024-02-18 14:23:00 98 /min [facility] Systolic blood pressure 2024-01-26 21:06:00 104 mm[Hg] [facility] Diastolic blood pressure 2024-01-26 21:06:00 77 mm[Hg] [facility] Heart rate 2024-01-26 21:06:00 91 /min [facility] Respiratory rate 2024-01-26 21:06:00 18 /min [facility] Body height 2024-01-26 21:06:00 152.4 cm [facility] Body weight 2024-01-26 21:06:00 89.812 kg [facility] BMI 2024-01-26 21:06:00 38.67 kg/m2 [facility] Systolic blood pressure 2024-01-14 17:47:00 108 mm[Hg] [facility] Diastolic blood pressure 2024-01-14 17:47:00 72 mm[Hg] [facility] Heart rate 2024-01-14 17:45:00 97 /min [facility] Body temperature 2024-01-14 17:45:00 36.94 Janet [facility] Body height 2024-01-14 17:45:00 152.4 cm [facility] Body weight 2024-01-14 17:45:00 90.719 kg [facility] BMI 2024-01-14 17:45:00 39.06 kg/m2 [facility] Oxygen saturation in Arterial blood by Pulse oximetry 2024-01-14 17:45:00 97 /min [facility] Systolic blood pressure 2023-12-25 18:20:00 111 mm[Hg] [facility] Diastolic blood pressure 2023-12-25 18:20:00 66 mm[Hg] [facility] Heart rate 2023-12-25 18:20:00 87 /min [facility] Body height 2023-12-25 18:20:00 152.4 cm [facility] Body weight 2023-12-25 18:20:00 89.449 kg [facility] BMI 2023-12-25 18:20:00 38.51 kg/m2 [facility] Oxygen saturation in Arterial blood by Pulse oximetry 2023-12-25 18:20:00 100 /min [facility] Systolic blood pressure 2023-12-22 15:25:00 107 mm[Hg] [facility] Diastolic blood pressure 2023-12-22 15:25:00 76 mm[Hg] [facility] Heart rate 2023-12-22 15:25:00 92 /min [facility] Respiratory rate 2023-12-22 15:25:00 16 /min [facility] Body height 2023-12-22 15:25:00 152.4 cm [facility] Body weight 2023-12-22 15:25:00 89.767 kg [facility] BMI 2023-12-22 15:25:00 38.65 kg/m2 [facility] Oxygen saturation in Arterial blood by Pulse oximetry 2023-12-22 15:25:00 97 /min [facility] Systolic blood pressure 2023-12-19 12:00:00 109 mm[Hg] [facility] Diastolic blood pressure 2023-12-19 12:00:00 74 mm[Hg] [facility] Heart rate 2023-12-19 12:00:00 84 /min [facility] Body temperature 2023-12-19 12:00:00 36.72 Janet [facility] Respiratory rate 2023-12-19 12:00:00 16 /min [facility] Oxygen saturation in Arterial blood by Pulse oximetry 2023-12-19 12:00:00 96 /min [facility] Body height 2023-12-19 08:35:00 152.4 cm [facility] Body weight 2023-12-19 08:35:00 90.084 kg [facility] BMI 2023-12-19 08:35:00 38.79 kg/m2 [facility] Heart rate 2023-12-16 15:56:00 106 /min [facility] Systolic blood pressure 2023-12-16 15:30:00 121 mm[Hg] [facility] Diastolic blood pressure 2023-12-16 15:30:00 86 mm[Hg] [facility] Body temperature 2023-12-16 15:30:00 37 Janet [facility] Respiratory rate 2023-12-16 15:30:00 20 /min [facility] Body height 2023-12-16 15:30:00 152.4 cm [facility] Body weight 2023-12-16 15:30:00 88.905 kg [facility] BMI 2023-12-16 15:30:00 38.28 kg/m2 [facility] Oxygen saturation in Arterial blood by Pulse oximetry 2023-12-16 15:30:00 97 /min [facility] Systolic blood pressure 2023-12-11 16:56:00 127 mm[Hg] [facility] Diastolic blood pressure 2023-12-11 16:56:00 85 mm[Hg] [facility] Heart rate 2023-12-11 16:56:00 111 /min [facility] Body temperature 2023-12-11 16:56:00 36.83 Janet [facility] Oxygen saturation in Arterial blood by Pulse oximetry 2023-12-11 16:56:00 93 /min [facility] Respiratory rate 2023-12-11 08:20:00 16 /min [facility] Body height 2023-12-09 14:30:00 152.4 cm [facility] Body weight 2023-12-09 14:30:00 93.2 kg [facility] BMI 2023-12-09 14:30:00 40.13 kg/m2 [facility] Systolic blood pressure 2023-12-09 14:30:00 138 mm[Hg] [facility] Diastolic blood pressure 2023-12-09 14:30:00 82 mm[Hg] [facility] Heart rate 2023-12-09 14:30:00 101 /min [facility] Body temperature 2023-12-09 14:30:00 37.33 Janet [facility] Respiratory rate 2023-12-09 14:30:00 16 /min [facility] Body height 2023-12-09 14:30:00 152.4 cm [facility] Body weight 2023-12-09 14:30:00 93.2 kg [facility] BMI 2023-12-09 14:30:00 40.13 kg/m2 [facility] Oxygen saturation in Arterial blood by Pulse oximetry 2023-12-09 14:30:00 97 /min [facility] Systolic blood pressure 2023-12-07 20:55:00 113 mm[Hg] [facility] Diastolic blood pressure 2023-12-07 20:55:00 72 mm[Hg] [facility] Heart rate 2023-12-07 20:55:00 97 /min [facility] Body height 2023-12-07 20:55:00 152.4 cm [facility] Body weight 2023-12-07 20:55:00 94.167 kg [facility] BMI 2023-12-07 20:55:00 40.54 kg/m2 [facility] Oxygen saturation in Arterial blood by Pulse oximetry 2023-12-07 20:55:00 98 /min [facility] Systolic blood pressure 2023-12-04 18:38:00 122 mm[Hg] [facility] Diastolic blood pressure 2023-12-04 18:38:00 86 mm[Hg] [facility] Heart rate 2023-12-04 18:38:00 101 /min [facility] Body temperature 2023-12-04 18:38:00 36 Janet [facility] Respiratory rate 2023-12-04 18:38:00 18 /min [facility] Body height 2023-12-04 18:38:00 152.4 cm [facility] weight 2023-12-04 18:38:00 93.169 kg [facility] BMI 2023-12-04 18:38:00 40.11 kg/m2 [facility] Oxygen saturation in Arterial blood by Pulse oximetry 2023-12-04 18:38:00 96 /min [facility] Systolic blood pressure 2023-11-20 20:27:00 129 mm[Hg] [facility] Diastolic blood pressure 2023-11-20 20:27:00 82 mm[Hg] [facility] Heart rate 2023-11-20 20:27:00 97 /min [facility] Body temperature 2023-11-20 20:27:00 36.11 Janet [facility] Body height 2023-11-20 20:27:00 152.4 cm [facility] Body weight 2023-11-20 20:27:00 93.441 kg [facility] BMI 2023-11-20 20:27:00 40.23 kg/m2 [facility] Systolic blood pressure 2023-11-12 15:30:00 114 mm[Hg] [facility] Diastolic blood pressure 2023-11-12 15:30:00 73 mm[Hg] [facility] Heart rate 2023-11-12 15:30:00 90 /min [facility] Respiratory rate 2023-11-12 15:30:00 17 /min [facility] Oxygen saturation in Arterial blood by Pulse oximetry 2023-11-12 15:30:00 96 /min [facility] Body temperature 2023-11-12 14:35:00 36.28 Janet [facility] Body height 2023-11-12 13:08:00 152.4 cm [facility] Body weight 2023-11-12 13:08:00 92.9 kg [facility] BMI 2023-11-12 13:08:00 40.00 kg/m2 [facility] Systolic blood pressure 2023-11-12 15:30:00 114 mm[Hg] [facility] Diastolic blood pressure 2023-11-12 15:30:00 73 mm[Hg] [facility] Heart rate 2023-11-12 15:30:00 90 /min [facility] Respiratory rate 2023-11-12 15:30:00 17 /min [facility] Oxygen saturation in Arterial blood by Pulse oximetry 2023-11-12 15:30:00 96 /min [facility] Body temperature 2023-11-12 14:35:00 36.28 Janet [facility] Body height 2023-11-12 13:08:00 152.4 cm [facility] Body weight 2023-11-12 13:08:00 92.9 kg [facility] BMI 2023-11-12 13:08:00 40.00 kg/m2 [facility] Systolic blood pressure 2023 15:50:00 111 mm[Hg] [facility] Diastolic blood pressure 2023 15:50:00 78 mm[Hg] [facility] Heart rate 2023 15:50:00 99 /min [facility] Body temperature 2023 15:50:00 36.72 Jante [facility] Respiratory rate 2023 15:50:00 18 /min [facility] Body height 2023 15:50:00 152.4 cm [facility] Body weight 2023 15:50:00 93.26 kg [facility] BMI 2023 15:50:00 40.15 kg/m2 [facility] Systolic blood pressure 2023-10-23 18:27:00 114 mm[Hg] [facility] Diastolic blood pressure 2023-10-23 18:27:00 76 mm[Hg] [facility] Heart rate 2023-10-23 18:27:00 86 /min [facility] Body temperature 2023-10-23 18:27:00 36.28 Janet [facility] Respiratory rate 2023-10-23 18:27:00 18 /min [facility] Body height 2023-10-23 18:27:00 152.4 cm [facility] Body weight 2023-10-23 18:27:00 93.895 kg [facility] BMI 2023-10-23 18:27:00 40.43 kg/m2 [facility] Oxygen saturation in Arterial blood by Pulse oximetry 2023-10-23 18:27:00 97 /min [facility] Systolic blood pressure 2023-10-21 16:03:00 113 mm[Hg] [facility] Diastolic blood pressure 2023-10-21 16:03:00 78 mm[Hg] [facility] Heart rate 2023-10-21 16:03:00 99 /min [facility] Body height 2023-10-21 16:03:00 152.4 cm [facility] Body weight 2023-10-21 16:03:00 92.942 kg [facility] BMI 2023-10-21 16:03:00 40.02 kg/m2 [facility] Oxygen saturation in Arterial blood by Pulse oximetry 2023-10-21 16:03:00 96 /min [facility] Systolic blood pressure 2023-10-05 15:37:00 120 mm[Hg] [facility] Diastolic blood pressure 2023-10-05 15:37:00 77 mm[Hg] [facility] Heart rate 2023-10-05 15:37:00 102 /min [facility] Respiratory rate 2023-10-05 15:37:00 18 /min [facility] Body height 2023-10-05 15:37:00 152.4 cm [facility] Body weight 2023-10-05 15:37:00 92.67 kg [facility] BMI 2023-10-05 15:37:00 39.90 kg/m2 [facility] Oxygen saturation in Arterial blood by Pulse oximetry 2023-10-05 15:37:00 96 /min [facility] Systolic blood pressure 2023-09-22 14:47:00 114 mm[Hg] [facility] Diastolic blood pressure 2023-09-22 14:47:00 80 mm[Hg] [facility] Heart rate 2023-09-22 14:47:00 100 /min [facility] Respiratory rate 2023-09-22 14:47:00 18 /min [facility] Body height 2023-09-22 14:47:00 152.4 cm [facility] Body weight 2023-09-22 14:47:00 91.944 kg [facility] BMI 2023-09-22 14:47:00 39.59 kg/m2 [facility] Oxygen saturation in Arterial blood by Pulse oximetry 2023-09-22 14:47:00 93 /min [facility] Systolic blood pressure 2023-08-25 14:34:00 123 mm[Hg] [facility] Diastolic blood pressure 2023-08-25 14:34:00 80 mm[Hg] [facility] Heart rate 2023-08-25 14:34:00 105 /min [facility] Body height 2023-08-25 14:34:00 152.4 cm [facility] Body weight 2023-08-25 14:34:00 92.897 kg [facility] BMI 2023-08-25 14:34:00 40.00 kg/m2 [facility] Oxygen saturation in Arterial blood by Pulse oximetry 2023-08-25 14:34:00 97 /min [facility] Systolic blood pressure 2023-08-10 14:13:00 108 mm[Hg] [facility] Diastolic blood pressure 2023-08-10 14:13:00 65 mm[Hg] [facility] Heart rate 2023-08-10 14:13:00 104 /min [facility] Respiratory rate 2023-08-10 14:13:00 18 /min [facility] Body height 2023-08-10 14:13:00 152.4 cm [facility] Body weight 2023-08-10 14:13:00 91.627 kg [facility] BMI 2023-08-10 14:13:00 39.45 kg/m2 [facility] Systolic blood pressure 2023-08-04 16:45:00 124 mm[Hg] [facility] Diastolic blood pressure 2023-08-04 16:45:00 84 mm[Hg] [facility] Heart rate 2023-08-04 16:45:00 97 /min [facility] Respiratory rate 2023-08-04 16:45:00 18 /min [facility] Body height 2023-08-04 16:45:00 152.4 cm [facility] Body weight 2023-08-04 16:45:00 91.23 kg [facility] BMI 2023-08-04 16:45:00 39.28 kg/m2 [facility] Oxygen saturation in Arterial blood by Pulse oximetry 2023-08-04 16:45:00 99 /min [facility] Systolic blood pressure 2023-07-24 19:18:00 107 mm[Hg] [facility] Diastolic blood pressure 2023-07-24 19:18:00 72 mm[Hg] [facility] Heart rate 2023-07-24 19:18:00 109 /min [facility] Body temperature 2023-07-24 19:18:00 36.72 Janet [facility] Body height 2023-07-24 19:18:00 152.4 cm [facility] Body weight 2023-07-24 19:18:00 88.814 kg [facility] BMI 2023-07-24 19:18:00 38.24 kg/m2 [facility] Oxygen saturation in Arterial blood by Pulse oximetry 2023-07-24 19:18:00 95 /min [facility] Systolic blood pressure 2023-07-23 19:46:00 116 mm[Hg] [facility] Diastolic blood pressure 2023-07-23 19:46:00 79 mm[Hg] [facility] Heart rate 2023-07-23 19:46:00 106 /min [facility] Body temperature 2023-07-23 19:46:00 35.89 Janet [facility] Respiratory rate 2023-07-23 19:46:00 16 /min [facility] Body height 2023-07-23 19:46:00 152.4 cm [facility] Body weight 2023-07-23 19:46:00 91.853 kg [facility] BMI 2023-07-23 19:46:00 39.55 kg/m2 [facility] Oxygen saturation in Arterial blood by Pulse oximetry 2023-07-23 19:46:00 95 /min [facility] Systolic blood pressure 2023-06-17 22:49:00 122 mm[Hg] [facility] Diastolic blood pressure 2023-06-17 22:49:00 81 mm[Hg] [facility] Heart rate 2023-06-17 22:49:00 98 /min [facility] Body temperature 2023-06-17 22:49:00 36.44 Janet [facility] Respiratory rate 2023-06-17 22:49:00 18 /min [facility] Body height 2023-06-17 22:49:00 152.4 cm [facility] Body weight 2023-06-17 22:49:00 92.987 kg [facility] BMI 2023-06-17 22:49:00 40.04 kg/m2 [facility] Oxygen saturation in Arterial blood by Pulse oximetry 2023-06-17 22:49:00 95 /min [facility] Systolic blood pressure 2023-05-15 19:30:00 110 mm[Hg] [facility] Diastolic blood pressure 2023-05-15 19:30:00 75 mm[Hg] [facility] Heart rate 2023-05-15 19:30:00 96 /min [facility] Body temperature 2023-05-15 19:30:00 36.72 Janet [facility] Respiratory rate 2023-05-15 19:30:00 18 /min [facility] Body height 2023-05-15 19:30:00 152.4 cm [facility] Body weight 2023-05-15 19:30:00 91.536 kg [facility] BMI 2023-05-15 19:30:00 39.41 [facility]2 [facility] in Arterial blood by Pulse oximetry 2023-05-15 19:30:00 100 /min [facility] Systolic blood pressure 2023-04-21 20:28:00 126 mm[Hg] [facility] Diastolic blood pressure 2023-04-21 20:28:00 86 mm[Hg] [facility] Heart rate 2023-04-21 20:28:00 98 /min [facility] Body temperature 2023-04-21 20:28:00 36.11 Janet [facility] Respiratory rate 2023-04-21 20:28:00 16 /min [facility] Body height 2023-04-21 20:28:00 152.4 cm [facility] Body weight 2023-04-21 20:28:[address] [facility] BMI 2023-04-21 20:28:00 40.82 kg/m2 [facility] Oxygen saturation in Arterial blood by Pulse oximetry 2023-04-21 20:28:00 100 /min [facility] Systolic blood pressure 2023-03-26 20:35:00 127 mm[Hg] [facility] Diastolic blood pressure 2023-03-26 20:35:00 80 mm[Hg] [facility] Heart rate 2023-03-26 20:35:00 90 /min [facility] Body height 2023-03-26 20:35:00 152.4 cm [facility] Body weight 2023-03-26 20:35:00 94.167 kg [facility] BMI 2023-03-26 20:35:00 40.54 kg/m2 [facility] Oxygen saturation in Arterial blood by Pulse oximetry 2023-03-26 20:35:00 98 /min [facility] Systolic blood pressure 2023-02-23 14:43:00 119 mm[Hg] [facility] Diastolic blood pressure 2023-02-23 14:43:00 79 mm[Hg] [facility] Heart rate 2023-02-23 14:43:00 107 /min [facility] Respiratory rate 2023-02-23 14:43:00 18 /min [facility] Body height 2023-02-23 14:43:00 152.4 cm [facility] Body weight 2023-02-23 14:43:00 94.802 kg [facility] BMI 2023-02-23 14:43:00 40.82 kg/m2 [facility] Systolic blood pressure 2022-12-24 18:25:00 107 mm[Hg] [facility] Diastolic blood pressure 2022-12-24 18:25:00 69 mm[Hg] [facility] Heart rate 2022-12-24 18:25:00 92 /min [facility] Body temperature 2022-12-24 18:25:00 36.61 Janet [facility] Body height 2022-12-24 18:25:00 152.4 cm [facility] Body weight 2022-12-24 18:25:00 95.709 kg [facility] BMI 2022-12-24 18:25:00 41.21 kg/m2 [facility] Oxygen saturation in Arterial blood by Pulse oximetry 2022-12-24 18:25:00 97 /min [facility] Systolic blood pressure 2022-11-18 13:42:00 128 mm[Hg] [facility] Diastolic blood pressure 2022-11-18 13:42:00 85 mm[Hg] [facility] Heart rate 2022-11-18 13:42:00 108 /min [facility] Body temperature 2022-11-18 13:42:00 36.89 Janet [facility] Body height 2022-11-18 13:42:00 152.4 cm [facility] Body weight 2022-11-18 13:42:00 94.983 kg [facility] BMI 2022-11-18 13:42:00 40.90 kg/m2 [facility] Systolic blood pressure 2022-11-12 20:11:00 131 mm[Hg] [facility] Diastolic blood pressure 2022-11-12 20:11:00 84 mm[Hg] [facility] Heart rate 2022-11-12 20:11:00 100 /min [facility] Body temperature 2022-11-12 20:11:00 36.78 Janet [facility] Body height 2022-11-12 20:11:00 152.4 cm [facility] Body weight 2022-11-12 20:11:00 95.709 kg [facility] BMI 2022-11-12 20:11:00 41.21 kg/m2 [facility] Oxygen saturation in Arterial blood by Pulse oximetry 2022-11-12 20:11:00 96 /min [facility] Systolic blood pressure 2022-09-08 19:56:00 122 mm[Hg] [facility] Diastolic blood pressure 2022-09-08 19:56:00 81 mm[Hg] [facility] Heart rate 2022-09-08 19:56:00 95 /min [facility] Body height 2022-09-08 19:56:00 152.4 cm [facility] Body weight 2022-09-08 19:56:00 94.756 kg [facility] BMI 2022-09-08 19:56:00 40.80 kg/m2 [facility] Oxygen saturation in Arterial blood by Pulse oximetry 2022-09-08 19:56:00 98 /min [facility] Systolic blood pressure 2022-08-12 17:16:00 131 mm[Hg] [facility] Diastolic blood pressure 2022-08-12 17:16:00 80 mm[Hg] [facility] Heart rate 2022-08-12 17:15:00 113 /min [facility] Body temperature 2022-08-12 17:15:00 36.72 Janet [facility] Respiratory rate 2022-08-12 17:15:00 18 /min [facility] Body height 2022-08-12 17:15:00 152.4 cm [facility] Body weight 2022-08-12 17:15:00 94.892 kg [facility] BMI 2022-08-12 17:15:00 40.86 kg/m2 [facility] Systolic blood pressure 2022-08-08 15:20:00 134 mm[Hg] [facility] Diastolic blood pressure 2022-08-08 15:20:00 71 mm[Hg] [facility] Heart rate 2022-08-08 15:20:00 93 /min [facility] Body height 2022-08-08 15:20:00 152.4 cm [facility] Body weight 2022-08-08 15:20:00 95.618 kg [facility] BMI 2022-08-08 15:20:00 41.17 kg/m2 [facility] Oxygen saturation in Arterial blood by Pulse oximetry 2022-08-08 15:20:00 98 /min [facility] Systolic blood pressure 2022-06-27 22:07:00 125 mm[Hg] [facility] Diastolic blood pressure 2022-06-27 22:07:00 85 mm[Hg] [facility] Heart rate 2022-06-27 22:07:00 95 /min [facility] Body height 2022-06-27 22:07:00 152.4 cm [facility] Body weight 2022-06-27 22:07:00 94.802 kg [facility] BMI 2022-06-27 22:07:00 40.82 kg/m2 [facility] Oxygen saturation in Arterial blood by Pulse oximetry 2022-06-27 22:07:00 97 /min [facility] Systolic blood pressure 2022-05-19 15:24:00 116 mm[Hg] [facility] Diastolic blood pressure 2022-05-19 15:24:00 80 mm[Hg] [facility] Heart rate 2022-05-19 15:22:00 101 /min [facility] Body temperature 2022-05-19 15:22:00 36.94 Janet [facility] Respiratory rate 2022-05-19 15:22:00 18 /min [facility] Body height 2022-05-19 15:22:00 152.4 cm [facility] Body weight 2022-05-19 15:22:00 95.074 kg [facility] BMI 2022-05-19 15:22:00 40.93 kg/m2 [facility] Systolic blood pressure 2022-05-05 20:21:00 124 mm[Hg] [facility] Diastolic blood pressure 2022-05-05 20:21:00 84 mm[Hg] [facility] Heart rate 2022-05-05 20:21:00 109 /min [facility] Body temperature 2022-05-05 20:21:00 36.67 Janet [facility] Respiratory rate 2022-05-05 20:21:00 18 /min [facility] Body height 2022-05-05 20:21:00 152.4 cm [facility] Body weight 2022-05-05 20:21:00 93.895 kg [facility] BMI 2022-05-05 20:21:00 40.43 kg/m2 [facility] Systolic blood pressure 2022-04-17 16:43:00 124 mm[Hg] [facility] Diastolic blood pressure 2022-04-17 16:43:00 80 mm[Hg] [facility] Heart rate 2022-04-17 16:43:00 111 /min [facility] Body temperature 2022-04-17 16:43:00 36.72 Janet [facility] Body height 2022-04-17 16:43:00 152.4 cm [facility] Body weight 2022-04-17 16:43:00 94.983 kg [facility] BMI 2022-04-17 16:43:00 40.90 kg/m2 [facility] Systolic blood pressure 2022-04-11 19:57:00 134 mm[Hg] [facility] Diastolic blood pressure 2022-04-11 19:57:00 83 mm[Hg] [facility] Heart rate 2022-04-11 19:57:00 103 /min [facility] Body height 2022-04-11 19:57:00 152.4 cm [facility] Body weight 2022-04-11 19:57:00 94.575 kg [facility] BMI 2022-04-11 19:57:00 40.72 kg/m2 [facility] Oxygen saturation in Arterial blood by Pulse oximetry 2022-04-11 19:57:00 95 /min [facility] Height 2022-03-05 00:00:00 60 [in_i] [facility] BMI (Body Mass Index) 2022-03-05 00:00:00 40 kg/m2 [facility] Body Weight 2022-03-05 00:00:00 205 [lb_av] [facility] Procedures Procedure Date / Time Performed Performing Clinician Source FLU VACC ([id number]), 6 MO-6 4 YRS, .5ML, IM, TIV (FLUCELVAX) 2024-02-18 14:48:04 Kelly Reynaga [facility] CT SOFT TISSUE NECK W CONTRAST 2023-12-07 3 09:58:11 Eliot Cheung [facility] BASIC METABOLIC PANEL (NA, K , CL, CO2, GLUCOSE, BUN, CREATININE, CA) 2023-12-19 09:23:00 Eliot Cheung [facility] POCT GLUCOSE (AUTOMATED) 2023-12-11 16:57:00 Laura Mart[facility]nez [facility] [facility] POCT GLUCOSE (AUTOMATED) 2023-12-11 16:57:00 Laura Martínez [facility] POCT GLUCOSE (AUTOMATED) 2023-12-11 13:31:00 Laura Martínez [facility] POCT GLUCOSE (AUTOMATED) 2023-12-11 13:31:00 Tanya [facility] MAGNESIUM 2023-12-11 10:23:00 Lesia Phillips [facility] BASIC METABOLIC PANEL (NA, K , CL, CO2, GLUCOSE, BUN, CREATININE, CA) 2023-12-11 10:23:00 Sindy [facility] CBC WITH DIFF 2023-12-11 10:23:00 [facility] 2023-12-11 10:23:00 [facility] BASIC METABOLIC PANEL (NA, K , CL, CO2, GLUCOSE, BUN, CREATININE, CA) 2023-12-11 10:23:00 [facility] WITH DIFF 2023-12-11 10:23:00 Sindy [facility] POCT GLUCOSE (AUTOMATED) 2023-12-11 01:22:00 Tanya [facility] POCT GLUCOSE (AUTOMATED) 2023-12-11 01:22:00 Tanya [facility] POCT GLUCOSE (AUTOMATED) 2023-12-10 22:20:00 Tanya [facility] POCT GLUCOSE (AUTOMATED) 2023-12-10 22:20:00 Tanya [facility] POCT GLUCOSE (AUTOMATED) 2023-12-10 17:50:00 Tanya [facility] POCT GLUCOSE (AUTOMATED) 2023-12-10 17:50:00 Tanya [facility] POCT GLUCOSE (AUTOMATED) 2023-12-10 16:36:00 Tanya [facility] POCT GLUCOSE (AUTOMATED) 2023-12-10 16:36:00 Tanya [facility] BASIC METABOLIC PANEL (NA, K , CL, CO2, GLUCOSE, BUN, CREATININE, CA) 2023-12-10 08:56:00 Sindy [facility] CBC WITH DIFF 2023-12-10 08:56:00 Sindy [facility] BASIC METABOLIC PANEL (NA, K , CL, CO2, GLUCOSE, BUN, CREATININE, CA) 2023-12-10 08:56:00 Pascual Callahan [facility] CBC WITH DIFF 2023-12-10 08:56:00 Pascual Callahan [facility] HYOID SUSPENSION 2023-12-09 16:54:00 Tanya [facility] UVULOPHARYNGOPALATOPLASY 2023-12-09 16:54:00 Tanya [facility] HYOID SUSPENSION 2023-12-09 16:54:00 Tanya [facility] UVULOPHARYNGOPALATOPLASY 2023-12-09 16:54:00 Tanya [facility] POCT GLUCOSE(AGE >30DAYS) 2023-12-09 14:58:00 Nj Connell Tavon [facility] POCT GLUCOSE(AGE >30DAYS) 2023-12-09 14:58:00 Nj Connell Tavon [facility] POCT GLUCOSE (AUTOMATED) 2023-12-09 14:57:00 Tanya [facility] POCT GLUCOSE (AUTOMATED) 2023-12-09 14:57:00 Tanya [facility] POCT TEST 2023-12-09 14:35:00 Mic [facility] POCT TEST 2023-12-09 14:35:00 Mic [facility] LARYNGOSCOPY 2023-11-12 13:58:00 Tanya [facility] EXAM UNDER ANESTHESIA ORAL CAVITY 2023-11-12 13:58:00 Tanya [facility] POCT GLUCOSE (AUTOMATED) 2023-11-12 13:19:00 Tanya [facility] POCT GLUCOSE (AUTOMATED) 2023-11-12 13:19:00 Tanya [facility] POCT TEST 2023-11-12 13:15:00 Yazan Guo [facility] POCT TEST 2023-11-12 13:15:00 Yazan Guo [facility] TRANSTHORACIC ECHO (TTE) COMPLETE 2023-09-14 16:38:05 Blake Pelletier [facility] EXTERNAL PROVIDER RECORDS 2023-08-03 06:01:00 Doctor Unassigned, [place] [facility] AUTHORIZATION FOR RELEASE OF PHI 2023-06 06:01:00 Doctor Unassigned, [place] [facility] POCT TEST 2023-06-17 22:56:00 Nicky Peck [facility] POCT URINALYSIS 2023-06-17 22:52:00 Nicky Peck [facility] DME/SUPPLY JUSTIFICATION 2023-06-15 06:01:00 Doctor Unassigned, [place] [facility] MAGNESIUM 2023-05-15 19:57:00 Nicky Peck [facility] VITAMIN B12, LEVEL 2023-05-15 19:57:00 Nicky Peck [facility] THYROID STIMULATING HORMONE 2023-05-15 19:57:00 Nicky Peck [facility] COMP. METABOLIC PANEL (97564) 2023-05-15 19:57:00 Nicky Peck [facility] CBC WITH DIFF 2023-05-15 19:57:00 Nicky Peck [facility] POCT TEST 2023-05-15 00:00:00 Nicky Peck [facility] ALKALINE PHOSPHATASE, TOTAL 2023-04-21 20:58:00 Tian Caro [facility] VITAMIN D, 25-OH 2023-04-21 20:58:00 Tian Caro [facility] N-TELOPEPTIDE, SERUM 2023-04-21 20:58:00 Tian Caro [facility] INTACT PTH CALCIUM GROUP 2023-04-21 20:58:00 Tian Caro [facility] FLU VACC (), 6 MO-6 4 YRS, .5ML, IM, QUAD (FLUCELVAX) 2023-03-26 20:50:06 Kelly Reynaga [facility] US ABDOMEN LIMITED 2023-02-06 20:45:00 Nicky Peck [facility] ASSIGNMENT OF BENEFITS 2023-02-06 20:13:40 Doctor Unassigned, [place] [facility] CONSENT/REFUSAL FOR DIAGNOSI S AND TREATMENT 2023-02-06 20:13:17 Doctor Unassigned, [place] [facility] POCT TEST 2022-12-24 18:42:00 Nicky Peck [facility] POCT URINALYSIS 2022-12-24 18:35:00 Nicky Peck [facility] POCT TEST 2022-11-18 00:00:00 Supriya Yan [facility] ASSIGNMENT OF BENEFITS 2022-11-12 20:11:20 Doctor Unassigned, [place] [facility] INSURANCE CORRESPONDENCE 2022-10-07 05:01:00 Doctor Unassigned, [place] [facility] DME/SUPPLY JUSTIFICATION 2022-08-21 05:01:00 Doctor Unassigned, [place] [facility] DME/SUPPLY JUSTIFICATION 2022-08-01 06:01:00 Doctor Unassigned, [place] [facility] US ABDOMEN LIMITED 2022-06-17 16:16:37 Marley Camarillo [facility] POCT TEST 2022-05-19 15:52:00 Nishant Chapman [facility] CONSENT FOR CONTRACEPTION 2022-05-19 06:01:00 Doctor Unassigned, [place] [facility] POCT TEST 2022-05-05 20:30:00 Nishant Chapman [facility] DISCLOSURE AND CONSENT, MEDI [place] AND SURGICAL PROCEDURES 2022-05-05 06:01:00 Doctor Unassigned, [place] [facility] POCT TEST 2022-04-17 00:00:00 Nishant Chapman [facility] CBC WITH DIFF 2022-02-19 22:11:00 Vannesa Kaplan [facility] INSURANCE CORRESPONDENCE 2022-02-04 05:01:00 Doctor Unassigned, [place] [facility] Encounters Start Date/Time End Date/Time Encounter Type Admission Type Attending Clinicians Care Facility Care Department Encounter ID Source 2024-04-08 10:52:01 Outpatient Nicky Peck [facility] [id number] Romana Gregory [facility] 2024-04-19 15:30:00 2024-04-19 15:30:00 Outpatient R [facility] [id number] [facility] 2024-04-18 13:00:00 2024-04-18 13:00:00 Outpatient R [facility] [id number] [facility] 2024-04-08 09:30:00 2024-04-08 09:30:00 Outpatient R [facility] [id number] [facility] 2024-04-05 11:30:00 2024-04-05 11:55:19 Outpatient R TONE HENDERSON SHIWAN [facility] [id number] [facility] 2024-04-05 11:30:00 2024-04-05 11:55:19 Office Visit Tone Henderson [facility] [place] [place] 1.2.840.114 350.1.13.10 4.2.7.2.686 [id number] [facility] 2024-03-31 00:00:00 2024-03-31 15:20:51 Letter (Out) [facility] 1.2.840.114 350.1.13.10 4.2.7.2.686 [id number] [facility] 2024-03-25 16:00:00 2024-03-25 16:37:21 Outpatient R LAURA MARTÍNEZ [facility] [id number] [facility] 2024-03-25 16:00:00 2024-03-25 16:37:21 Office Visit Laura Martínez [facility] ([facility] 1.2.840.114 350.1.13.10 4.2.7.2.686 [id number] [facility] 2024-03-23 13:56:48 2024-03-23 23:59:00 Outpatient R NICKY PECK [facility] [id number] [facility] 2024-03-23 13:56:48 2024-03-23 23:59:00 Hospital En[facility] 1.2.840.114 350.1.13.10 4.2.7.2.686 [id number] [facility] 2024-03-23 13:30:00 2024-03-23 13:57:37 Office Visit [facility] 1.2.840.114 350.1.13.10 4.2.7.2.686 [id number] [facility] 2024-02-16 00:00:00 2024-02-22 17:22:13 Telephone Kelly Reynaga [facility] 1.284.114 350.1.13.10 4.2.7.2.686 [id number] [facility] 2024-02-18 09:30:00 2024-02-18 09:55:12 Outpatient R KELLY REYNAGA [facility] [id number] [facility] 2024-02-18 09:30:00 2024-02-18 09:55:12 Office Visit Kelly Reynaga [facility] 1.2.840.114 350.1.13.10 4.2.7.2.686 [id number] [facility] 2024-02-17 00:00:00 2024-02-17 13:35:53 Telephone Kelly Reynaga [facility] 1.2.840.114 350.1.13.10 4.2.7.2.686 [id number] [facility] 2024-02-16 00:00:00 2024-02-16 17:28:11 Nurse Triage Katie Ibarra Teresa D [facility] 1.2840.114 350.1.13.10 4.2.7.2.686 [id number] [facility] 2024-02-01 00:00:00 2024-02-01 10:16:13 Telephone Juhi [facility] 1.840.114 350.1.13.10 4.2.7.2.686 [id number] [id number] [facility] 2024-01-27 00:00:00 2024-01-29 09:42:25 Telephone Elizabethgermaine [facility] 1.840.114 350.1.13.10 4.2.7.2.686 [id number] [facility] 2024-01-26 15:30:00 2024-01-26 16:11:16 Outpatient R BAL Ruiz, SUPRIYA ILENE MAHANSOL [facility] [id number] [facility] 2024-01-26 15:30:00 2024-01-26 16:11:16 Nurse Visit Nurse, [facility] Hector Mahanl Nurse, [facility] NAL BUILDING 1.284.114 350.1.13.10 4.2.7.2.686 [id number] [facility] 2024-01-15 00:00:00 2024-01-18 12:30:07 Telephone Juhi [facility] 1.2840.114 350.1.13.10 4.2.7.2.686 [id number] [id number] [facility] 2023-12-15 00:00:00 2024-01-16 18:21:03 Patient Secure Msg Doctor Unassigned, [place] Doctor Unassigned, [place] [facility] 1.2.840.114 350.1.13.10 4.2.7.2.686 [id number] [facility] 2024-01-14 13:15:00 2024-01-14 13:30:00 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 Lab, Ang - Db Nicky Peck Lab, Ang - Db [facility] 1.2.840.114 350.1.13.10 4.2.7.2.686 [id number] [facility] 2024-01-14 12:30:00 2024-01-14 12:59:19 Outpatient R NICKY PECK [facility] [id number] [facility] 2024-01-14 12:30:00 2024-01-14 12:59:19 Office Visit Nicky Peck [facility] 1.2.840.114 350.1.13.10 4.2.7.2.686 [id number] [id number] [facility] 2024-01-13 00:00:00 2024-01-14 11:15:28 Nurse Triage Kelly Reynaga [facility] 1.2.840.114 350.1.13.10 4.2.7.2.686 [id number] [facility] 2024-01-13 15:00:00 2024-01-13 15:00:00 Outpatient R NICKY PECK [facility] [id number] [facility] 2023-12-25 13:00:00 2023-12-25 13:51:04 Outpatient R LAURA MARTÍNEZ [facility] [id number] [facility] 2023-12-25 13:00:00 2023-12-25 13:51:04 [facility]114 350.1.13.10 4.2.7.2.686 [id number] [facility] 2023-12-19 00:00:00 2023-12-24 13:33:27 Telephone Laura Martínez [facility] 1.2.114 350.1.13.10 4.2.7.2.686 [id number] [facility] 2023-12-22 10:00:00 2023-12-22 10:51:30 Outpatient R PELLETIER [facility] [id number] [facility] 2023-12-22 10:00:00 2023-12-22 10:51:30 [facility] 1..114 350.1.13.10 4.2.7.2.686 [id number] [facility] 2023-12-19 03:39:00 2023-12-19 07:11:00 Emergency X ELIOT CHEUNG WAKILI [facility] [id number] [facility] 2023-12-19 03:39:00 2023-12-19 07:11:00 Emergency Eliot Cheung [facility] 1.284.114 350.1.13.10 4.2.7.2.686 [id number] [facility] 2023-12-17 00:00:00 2023-12-17 11:45:10 Telephone Tian Caro [facility] 1.840.114 350.1.13.10 4.2.7.2.686 [id number] [facility] 2023-12-16 10:20:00 2023-12-16 10:40:00 Urgent Care Viola Spivey Unknown, Attending [facility] 1.2.840.114 350.1.13.10 4.2.7.2.686 [id number] [facility] 2023-12-16 10:20:00 2023-12-16 10:20:00 Outpatient R VIOLA SPIVEY [facility] [id number] [facility] 2023-12-09 09:21:00 2023-12-11 13:40:00 [facility] [id number] [facility] 2023-12-09 09:21:00 2023-12-11 13:40:00 Hospital Encounter [facility] 1.2.840.114 350.1.13.10 4.2.7.2.686 [id number] [facility] 2023-12-09 11:24:00 2023-12-09 15:10:00 Surgery [facility] 1.2.840.114 350.1.13.10 4.2.7.2.686 [id number] [facility] 2023-12-07 16:30:00 2023-12-07 17:03:52 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 Lab[facility] 1.2.840.114 350.1.13.10 4.2.7.2.686 [id number] [facility] 2023-12-07 16:00:00 2023-12-07 16:10:04 Outpatient R KELLY REYNAGA [facility] [id number] [facility] 2023-12-07 16:00:00 2023-12-07 16:10:04 Office [facility] 1..840.114 350.1.13.10 4.2.7.2.686 [id number] [facility] 2023-12-04 15:00:00 2023-12-04 15:00:00 Office Visit Laura Martínez [facility] 1.840.114 350.1.13.10 4.2.7.2.686 [id number] [facility] 2023-12-04 15:00:00 2023-12-04 14:14:51 Outpatient [facility] [id number] [facility] 2023-11-26 14:30:00 2023-11-26 14:45:00 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 Pob, Adc Lab Main [place] s, Supirya [facility] BU[facility] 1..840.114 350.1.13.10 4.2.7.2.686 [id number] [facility] 2023-11-26 14:30:00 2023-11-26 14:30:00 Outpatient R FINN-CHINO S, SUPRIYA FINN-CHINO S, SUPRIYA [facility] [id number] [facility] 2023-11-20 15:00:00 2023-11-20 15:47:57 Outpatient R FINN-CHINO S, SUPRIYA FINN-CHINO S, SUPRIYA [facility] [id number] [facility] 2023-11-20 15:00:00 2023-11-20 15:47:57 Office Visit [place], Supriya [facility] BU[facility] 1..840.114 350.1.13.10 4.2.7.2.686 [id number] [facility] 2023-11-12 09:50:00 2023-11-12 10:59:00 Surgery Tanya [facility] 1.2840.114 350.1.13.10 4.2.7.2.686 [id number] [facility] 2023-11-12 07:58:00 2023-11-12 10:31:00 Outpatient R TANYA [facility] [id number] [facility] 2023-11-12 07:58:00 2023-11-12 10:31:00 [facility] 1.20.114 350.1.13.10 4.2.7.2.686 [id number] [facility] 2023 10:30:00 2023 10:50:41 Outpatient R NISHANT CHAPMAN [facility] [id number] [facility] 2023 10:30:00 2023 10:50:41 Nurse Visit Nurse, [facility] Nishant Chapman [facility] 1.20.114 350.1.13.10 4.2.7.2.686 [id number] [facility] 2023-10-23 14:00:00 2023-10-23 14:30:00 [facility] 1.2.114 350.1.13.10 4.2.7.2.686 [id number] [facility] 2023-10-23 14:00:00 2023-10-23 14:00:00 Outpatient R TANYA [facility] [id number] [facility] 2023-10-21 00:00:00 2023-10-21 16:47:02 Telephone Tanya [facility] 1.20.114 350.1.13.10 4.2.7.2.686 [id number] [facility] 2023-10-21 11:00:00 2023-10-21 11:30:00 Office Visit Tian Caro Dusty [facility] 1..840.114 350.1.13.10 4.2.7.2.686 [id number] [facility] 2023-10-21 11:00:00 2023-10-21 11:00:00 Outpatient R TIAN CARO [facility] [id number] [facility] 2023-10-20 20:00:00 2023-10-20 20:00:00 Outpatient R [facility] [id number] [facility] 2023-10-19 08:00:00 2023-10-19 08:15:00 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 Pob, Adc Lab Main Obey Cage [facility] 1..840.114 350.1.13.10 4.2.7.2.686 [id number] [facility] 2023-10-19 08:00:00 2023-10-19 08:00:00 Outpatient R OBEY CAGE [facility] [id number] [facility] 2023-10-05 13:45:00 2023-10-05 14:00:00 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 Pob, Adc Lab Main Tone Henderson Umair [facility] 1.2.840.114 350.1.13.10 4.2.7.2.686 [id number] [facility] 2023-10-05 10:00:00 2023-10-05 11:08:38 Outpatient R TONE HENDERSON SHIWAN [facility] [id number] [facility] 2023-10-05 10:00:00 2023-10-05 11:08:38 Office Visit Tone Henderson [facility] 1.2.840.114 350.1.13.10 4.2.7.2.686 [id number] [facility] 2023-09-30 20:00:00 2023-09-30 22:30:00 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 1, [facility] Sleep Lab Bed Kenzie Correa [facility] 1.2.840.114 350.1.13.10 4.2.7.2.686 [id number] [facility] 2023-09-30 20:00:00 2023-09-30 20:00:00 Outpatient R KENZIE CORREA STRAPRSage [facility] [id number] [facility] 2023-09-22 09:30:00 2023-09-22 10:23:44 Outpatient Esdras P[facility]LE[facility]ER [facility] [id number] [facility] 2023-09-22 09:30:00 2023-09-22 10:00:00 Office Visit Prabhu [facility]ESS[facility] NAL BUILDING 1.2.840.114 350.1.13.10 4.2.7.2.686 [id number] [facility] 2023-09-15 00:00:00 2023-09-15 00:00:00 Telephone Prabhu [facility]ESS[facility] NAL BUILDING 1.2.840.114 350.1.13.10 4.2.7.2.686 [id number] [facility] 2023-09-14 10:00:00 2023-09-14 23:59:00 Outpatient R PRABHU [facility] [id number] [facility] 2023-09-14 10:00:00 2023-09-14 23:59:00 Hospital Encounter Prabhu [facility]ESSIO NAL BUILDING 1.2.840.114 350.1.13.10 4.2.7.2.686 [id number] [facility] 2023-09-14 08:30:00 2023-09-14 09:59:00 Hospital Encounter Blake Pelletier [facility] NAL BUILDING 1.2.840.114 350.1.13.10 4.2.7.2.686 [id number] [facility] 2023-09-11 12:15:00 2023-09-11 12:53:23 Out[facility] [id number] [facility] 2023-09-11 12:15:00 2023-09-11 12:30:00 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 Lab, River [facility]aga [facility] 1..840.114 350.1.13.10 4.2.7.2.686 [id number] [facility] 2023-08-25 09:30:00 2023-08-25 10:03:43 Outpatient R PRABHU [facility] [id number] [facility] 2023-08-25 09:30:00 2023-08-25 10:03:43 Office Visit Prabhu [facility] BUILDING 1.2.840.114 350.1.13.10 4.2.7.2.686 [id number] [facility] 2023-08-10 08:00:00 2023-08-10 08:11:33 Outpatient R FINN-CHINO S, SUPRIYA FINN-CHINO S, [facility] [id number] [facility] 2023-08-10 08:00:00 2023-08-10 08:11:33 Nurse Visit Nurse, [facility] [place], Supriya [facility] NAL BUILDING 1.2.840.114 350.1.13.10 4.2.7.2.686 [id number] [facility] 2023-08-10 00:00:00 2023-08-10 00:00:00 Telephone Tone Henderson [facility] 1.2.840.114 350.1.13.10 4.2.7.2.686 [id number] [facility] 2023-08-04 10:30:00 2023-08-04 11:11:28 Outpatient R TONE HENDERSON [facility] [id number] [facility] 2023-08-04 10:30:00 2023-08-04 11:11:28 Office Visit oTne Henderson [facility] 1.2.840.114 350.1.13.10 4.2.7.2.686 [id number] [facility] 2023-08-04 00:00:00 2023-08-04 00:00:00 Telephone [facility] MED[facility] 1..840.114 350.1.13.10 4.2.7.2.686 [id number] [facility] 2023-08-03 00:00:00 2023-08-03 00:00:00 Orders Only Doctor Unassigned, [place] [facility] 1.840.114 350.1.13.10 4.2.7.2.686 [id number] [facility] 2023-07-30 00:00:00 2023-07-30 00:00:00 Refill Juhi [facility] 1.2.840.114 350.1.13.10 4.2.7.2.686 [id number] [facility] 2023-07-24 13:00:00 2023-07-24 13:39:25 Outpatient R NICKY PECK [facility] [id number] [facility] 2023-07-24 13:00:00 2023-07-24 13:39:25 Office Visit Nicky Peck [facility] 1..114 350.1.13.10 4.2.7.2.686 [id number] [id number] [facility] 2023-07-23 14:30:00 2023-07-23 15:00:00 Office Visit Obey Cage [facility] 1.84.114 350.1.13.10 4.2.7.2.686 [id number] 220 [id number] [facility] 2023-07-23 14:30:00 2023-07-23 14:30:00 Outpatient R OBEY CAGE [facility] [id number] [facility] 2023-07-15 00:00:00 2023-07-15 00:00:00 Telephone Tian Caro [facility] 1.84.114 350.1.13.10 4.2.7.2.686 [id number] [facility] 2023-07-10 00:00:00 2023-07-10 00:00:00 Refill Tian Caro [facility] 1.84.114 350.1.13.10 4.2.7.2.686 [id number] 220 [id number] [facility] 2023-06-25 00:00:00 2023-06-25 00:00:00 Refill Kelly Reynaga [facility] 1.84.114 350.1.13.10 4.2.7.2.686 [id number] 044 [id number] [facility] 2023-06-19 00:00:00 2023-06-19 00:00:00 Orders Only Doctor Unassigned, [place] [facility] 1.2840.114 350.1.13.10 4.2.7.2.686 [id number] [id number] [facility] 2023-06-17 16:30:00 2023-06-17 17:26:16 Outpatient R NICKY PECK [facility] [id number] [facility] 2023-06-17 16:30:00 2023-06-17 17:26:16 Office Visit Nicky Peck Dusty [facility] OFFICE BUILDING 1.2840.114 350.1.13.10 4.2.7.2.686 [id number] 044 [id number] [facility] 2023-06-17 17:00:00 2023-06-17 17:15:00 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 Lab, Ang - Nicky Waldron Dusty [facility] MED[facility] OFFICE BUILDING 1.2840.114 350.1.13.10 4.2.7.2.686 [id number] [facility] 2023-06-15 00:00:00 2023-06-15 00:00:00 Orders Only Doctor Unassigned, [place] [facility] 1.2840.114 350.1.13.10 4.2.7.2.686 [id number] 009 [id number] [facility] 2023-06-12 00:00:00 2023-06-12 00:00:00 Telephone Nicky Peck [facility] MED[facility] OFFICE BUILDING 1.2840.114 350.1.13.10 4.2.7.2.686 [id number] 044 [id number] [facility] 2023-06-11 00:00:00 2023-06-11 00:00:00 Telephone Nicky Peck Dusty [facility] MED[facility] OFFICE BUILDING 1.2840.114 350.1.13.10 4.2.7.2.686 [id number] 044 [id number] [facility] 2023-06-11 00:00:00 2023-06-11 00:00:00 Telephone Nicky Peck [facility] 1.2840.114 350.1.13.10 4.2.7.2.686 [id number] 044 [id number] [facility] 2023-06-10 14:15:45 2023-06-10 23:59:00 Outpatient R NICKY PECK [facility] [id number] [facility] 2023-06-10 14:15:45 2023-06-10 23:59:00 Hospital Encounter Nicky Peck [facility] 1.840.114 350.1.13.10 4.2.7.2.686 [id number] [facility] 2023-05-25 00:00:00 2023-05-25 00:00:00 Telephone Tian Caro [facility] 1.2840.114 350.1.13.10 4.2.7.2.686 [id number] [facility] 2023-05-21 00:00:00 2023-05-21 00:00:00 Telephone Kelly Reynaga [facility] 1.2840.114 350.1.13.10 4.2.7.2.686 [id number] 044 [id number] [facility] 2023-05-19 00:00:00 2023-05-19 00:00:00 Telephone Nicky Peck [facility] 1.2840.114 350.1.13.10 4.2.7.2.686 [id number] 044 [id number] [facility] 2023-05-18 10:30:00 2023-05-18 11:20:17 Outpatient R NISHANT CHAPMAN [facility] [id number] [facility] 2023-05-15 14:00:00 2023-05-15 14:15:00 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 Lab, [place] Peck Nicky Montano [facility] MED[facility] OFFICE BUILDING 1..840.114 350.1.13.10 4.2.7.2.686 [id number] [facility] 2023-05-15 13:00:00 2023-05-15 13:51:35 Outpatient R NICKY PECK [facility] [id number] [facility] 2023-05-15 13:00:00 2023-05-15 13:51:35 Office Visit Lucy Peckchanel Montano [facility] 1.840.114 350.1.13.10 4.2.7.2.686 [id number] 044 [id number] [facility] 2023-04-21 15:00:00 2023-04-21 15:30:00 Office Visit Tian Caro [facility] 1..840.114 350.1.13.10 4.2.7.2.686 [id number] [facility] 2023-04-21 15:00:00 2023-04-21 15:00:00 Outpatient R TIAN CARO [facility] [id number] [facility] 2023-04-20 15:53:37 2023-04-20 15:53:[address] [facility] [id number] Mateusz Dorado 2023-03-26 16:00:00 2023-03-26 16:15:00 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 Lab, Kelly De Jesus [facility] MED[facility] OFFICE BUILDING 1..840.114 350.1.13.10 4.2.7.2.686 [id number] [facility] 2023-03-26 15:30:00 2023-03-26 16:01:32 Office Visit Kelly Reynaga [facility] 1..114 350.1.13.10 4.2.7.2.686 [id number] 044 [id number] [facility] 2023-03-26 16:00:00 2023-03-26 16:00:00 Outpatient R KELLY REYNAGA [facility] [id number] [facility] 2023-02-23 10:00:00 2023-02-23 10:00:00 Nurse Visit Nurse, [facility] Ilene Mahansol [facility] PROFESSIO NAL BUILDING 1..114 350.1.13.10 4.2.7.2.686 [id number] [facility] 2023-02-23 10:00:00 2023-02-23 09:45:09 Outpatient R HUMA-CHINO S, SUPRIYA HUMA-CH[facility] S, SUPRIYA [facility] [id number] [facility] 2023-02-06 15:13:36 2023-02-06 23:59:00 Outpatient R NICKY PECK [facility] [id number] [facility] 2023-02-06 15:00:00 2023-02-06 23:59:00 Hospital Encounter Nicky Peck [facility] 1..114 350.1.13.10 4.2.7.2.686 [id number] [facility] 2023-02-06 00:00:00 2023-02-06 00:00:00 Patient Secure Msg Doctor Unassigned, [place] [facility] 1..114 350.1.13.10 4.2.7.2.686 [id number] [id number] [facility] 2023-02-05 00:00:00 2023-02-05 00:00:00 Telephone Kelly Reynaga [facility] MILENA [facility] 1.2.840.114 350.1.13.10 4.2.7.2.686 [id number] 044 [id number] [facility] 2023-02-02 00:00:00 2023-02-02 00:00:00 Telephone [facility] BUILD[facility] 1.2.840.114 350.1.13.10 4.2.7.2.686 [id number] 044 [id number] [facility] 2023-02-01 00:00:00 2023-02-01 00:00:00 Telephone [facility] Peck [facility] 1.2.840.114 350.1.13.10 4.2.7.2.686 [id number] 044 [id number] [facility] 2023-01-26 00:00:00 2023-01-26 00:00:00 Refill Kelly Reynaga [facility] 1.2.840.114 350.1.13.10 4.2.7.2.686 [id number] 044 [id number] [facility] 2023-01-24 00:00:00 2023-01-24 00:00:00 Refill Kelly Reynaga [facility] OFF[facility] BUILD[facility] 1.2.840.114 350.1.13.10 4.2.7.2.686 [id number] 044 [id number] [facility] 2023-01-07 14:00:00 2023-01-07 14:34:41 Outpatient R ELIZABETHKELLY HERRON [facility] [id number] [facility] 2023-01-07 14:00:00 2023-01-07 14:15:00 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 Lab, River Callahan Kelly Reynaga [facility] OFF[facility] BUILDING 1.840.114 350.1.13.10 4.2.7.2.686 [id number] [facility] 2023-01-02 00:00:00 2023-01-02 00:00:00 Telephone CiscoReyna navarrolichanel Montano [facility] OFF[facility] BUILDING 1.840.114 350.1.13.10 4.2.7.2.686 [id number] 044 [id number] [facility] 2022-12-24 14:30:00 2022-12-24 14:45:00 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 Lab, River LassiterNicky navarro [facility] MED[facility] OFF[facility] BUILDING 1.840.114 350.1.13.10 4.2.7.2.686 [id number] [facility] 2022-12-24 13:00:00 2022-12-24 13:43:30 Outpatient R NICKY PECK [facility] [id number] [facility] 2022-12-24 13:00:00 2022-12-24 13:43:30 Office Visit Cisco Nicky Montano [facility] OFF[facility] BUILDING 1.840.114 350.1.13.10 4.2.7.2.686 [id number] 044 [id number] [facility] 2022-12-24 00:00:00 2022-12-24 00:00:00 Refill CiscoNicky navarro [facility] MED[facility] OFF[facility] BUILDING 1.840.114 350.1.13.10 4.2.7.2.686 [id number] 044 [id number] [facility] 2022-12-16 00:00:00 2022-12-16 00:00:00 Refill Nicky Peck [facility] 1.840114 350.1.13.10 4.2.7.2.686 [id number] 044 [id number] [facility] 2022-11-18 08:30:00 2022-11-18 09:00:00 Office Visit Finn-Chino s, Supriya [facility] BU[facility] 1.0.114 350.1.13.10 4.2.7.2.686 [id number] [facility] 2022-11-18 08:30:00 2022-11-18 08:30:00 Outpatient R FINN-CHINO S, SUPRIYA [place] [facility] [facility], SUPRIYA [facility] [id number] [facility] 2022-11-13 00:00:00 2022-11-13 00:00:00 Telephone Nicky Peck [facility] 1.84.114 350.1.13.10 4.2.7.2.686 [id number] 044 [id number] [facility] 2022-11-12 15:30:00 2022-11-12 15:48:52 Outpatient R REYNA PECKLIE [facility] [id number] [facility] 2022-11-12 15:30:00 2022-11-12 15:48:52 Office Visit Cisco, Nicky Montano [facility] OFFICE BUILDING 1.284.114 350.1.13.10 4.2.7.2.686 [id number] 044 [id number] [facility] 2022-11-12 15:15:00 2022-11-12 15:30:00 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 Lab, Ang - Db Nicky Peck [facility] OFFICE BUILDING 1.284114 350.1.13.10 4.2.7.2.686 [id number] [facility] 2022-11-12 00:00:00 2022-11-12 00:00:00 Orders Only Doctor Unassigned, [place] [facility] 1.2.840.114 350.1.13.10 4.2.7.2.686 [id number] [id number] [facility] 2022-10-07 00:00:00 2022-10-07 00:00:00 Orders Only Doctor Unassigned, [place] [facility] 1.2.840.114 350.1.13.10 4.2.7.2.686 [id number] 009 [id number] [facility] 2022-10-03 00:00:00 2022-10-03 00:00:00 Nurse Triage Emily Kaminski [facility] 1.2840.114 350.1.13.10 4.2.7.2.686 [id number] 019 [id number] [facility] 2022-10-02 00:00:00 2022-10-02 00:00:00 Refill Juhi [facility] MEDICAL OFFICE BUILDING 1.2840.114 350.1.13.10 4.2.7.2.686 [id number] 044 [id number] [facility] 2022-09-18 00:00:00 2022-09-18 00:00:00 [facility]phone [facility] MED[facility] OFF[facility] BUILDING 1.2.840.114 350.1.13.10 4.2.7.2.686 [id number] 044 [id number] [facility] 2022-09-08 15:00:00 2022-09-08 15:35:57 Outpatient R KELLY REYNAGA [facility] [id number] [facility] 2022-09-08 15:00:00 2022-09-08 15:35:57 [facility]ILD[facility] 1.840.114 350.1.13.10 4.2.7.2.686 [id number] 044 [id number] [facility] 2022-09-08 00:00:00 2022-09-08 00:00:00 [facility] 1.20.114 350.1.13.10 4.2.7.2.686 [id number] 044 [id number] [facility] 2022-08-21 00:00:00 2022-08-21 00:00:00 Orders Only Doctor Unassigned, [place] [facility] 1..114 350.1.13.10 4.2.7.2.686 [id number] [facility] 2022-08-20 00:00:00 2022-08-20 00:00:00 [facility] 1..114 350.1.13.10 4.2.7.2.686 [id number] 044 [id number] [facility] 2022-08-18 00:00:00 2022-08-18 00:00:00 Telephone Brianna Chapmanen [facility] BUILDING 1.84.114 350.1.13.10 4.2.7.2.686 [id number] 134 [id number] [facility] 2022-08-12 10:30:00 2022-08-12 11:17:30 Outpatient R NISHANT CHAPMAN [facility] [id number] [facility] 2022-08-12 10:30:00 2022-08-12 11:17:30 Nurse Visit Nurse, [facility] Adela Nishant [facility] BUILDING 1.84.114 350.1.13.10 4.2.7.2.686 [id number] [facility] 2022-08-08 09:30:00 2022-08-08 10:00:00 Office [facility] 1.2840.114 350.1.13.10 4.2.7.2.686 [id number] 044 [id number] [facility] 2022-08-08 09:30:00 2022-08-08 09:30:00 Outpatient R KELLY REYNAGA [facility] [id number] [facility] 2022-08-01 00:00:00 2022-08-01 00:00:00 Orders Only Doctor Unassigned, [place] [facility] 1.84.114 350.1.13.10 4.2.7.2.686 [id number] [facility] 2022-07-30 00:00:00 2022-07-30 00:00:00 Telephone [facility] MED[facility] OFFICE BUILDING 1.84.114 350.1.13.10 4.2.7.2.686 [id number] 044 [id number] [facility] 2022-07-01 00:00:00 2022-07-01 00:00:00 Telephone [facility] MEDICAL OFFICE BUILDING 1.84.114 350.1.13.10 4.2.7.2.686 [id number] 044 [id number] [facility] 2022-06-27 16:30:00 2022-06-27 16:45:00 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 Lab, River Callahan [facility] BUILD[facility] 1.284.114 350.1.13.10 4.2.7.2.686 [id number] [facility] 2022-06-27 16:00:00 2022-06-27 16:37:43 Outpatient R KELLY REYNAGA [facility] [id number] [facility] 2022-06-27 16:00:00 2022-06-27 16:37:43 Office Visit Kelly Reynaga [facility] 1.2.840.114 350.1.13.10 4.2.7.2.686 [id number] 044 [id number] [facility] 2022-06-17 09:32:15 2022-06-17 23:59:00 Outpatient R [facility] [id number] [facility] 2022-06-17 09:32:15 2022-06-17 23:59:00 Hospital Encounter Marley Camarillo [facility] 1.2.840.114 350.1.13.10 4.2.7.2.686 [id number] [facility] 2022-06-12 11:30:00 2022-06-12 11:45:00 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 Pob, Adc Lab Main Marquise [facility] BUILDING 1.2.840.114 350.1.13.10 4.2.7.2.686 [id number] 353 [id number] [facility] 2022-06-12 11:30:00 2022-06-12 11:30:00 Outpatient R MARQUISE MARLEY [facility] [id number] [facility] 2022-05-19 09:30:00 2022-05-19 09:50:10 Outpatient R NISHANT CHAPMAN [facility] [id number] [facility] 2022-05-19 09:30:00 2022-05-19 09:50:10 Office Visit Nishant Chapman [facility] BUILDING 1.2.840.114 350.1.13.10 4.2.7.2.686 [id number] [facility] 2022-05-19 00:00:00 2022-05-19 00:00:00 Orders Only Doctor Unassigned, [place] [facility] 1..840.114 350.1.13.10 4.2.7.2.686 [id number] [id number] [facility] 2022-05-09 09:30:00 2022-05-09 09:30:00 [facility] [id number] [facility] 2022-05-09 00:00:00 2022-05-09 00:00:00 Telephone Juhi [facility] 1..840.114 350.1.13.10 4.2.7.2.686 [id number] 044 [id number] [facility] 2022-05-05 13:30:00 2022-05-05 14:52:24 Outpatient R [facility] [id number] [facility] 2022-05-05 13:30:00 2022-05-05 14:52:24 Office Visit Nishant Chapman [facility] 1..840.114 350.1.13.10 4.2.7.2.686 [id number] [facility] 2022-05-05 00:00:00 2022-05-05 00:00:00 Orders Only Doctor Unassigned, [place] [facility] 1.840.114 350.1.13.10 4.2.7.2.686 [id number] [facility] 2022-04-17 10:30:00 2022-04-17 11:26:08 Outpatient R [facility] [id number] [facility] 2022-04-17 10:30:00 2022-04-17 11:26:08 [facility] 1..840.114 350.1.13.10 4.2.7.2.686 [id number] [facility] 2022-04-15 10:00:00 2022-04-15 10:00:00 Outpatient R NISHANT CHAPMAN [facility] [id number] [facility] 2022-04-11 15:00:00 2022-04-11 15:29:48 Outpatient R KELLY REYNAGA [facility] [id number] [facility] 2022-04-11 15:00:00 2022-04-11 15:29:48 Office Visit [facility] 1.2.840.114 350.1.13.10 4.2.7.2.686 [id number] [id number] [facility] 2022-04-08 10:30:00 2022-04-08 10:30:00 Outpatient R KELLY REYNAGA [facility] [id number] [facility] 2022-03-18 00:00:00 2022-03-18 00:00:00 Outpatient FOG_Patel_Esdras Solitario AO AO [id number] [facility] 2022-03-05 00:00:00 2022-03-05 00:00:00 Outpatient FOG_Patel_R Kassi AOSM AO [id number] [facility] 2022-03-05 00:00:00 2022-03-05 00:00:00 Nithin Leung MD: [id number] [facility] [address], [place] [address] , Ph. [phone] [facility] [place] [facility] [place] [id number] [facility] 2022-03-03 00:00:00 2022-03-03 00:00:00 Outpatient FOG_Patel_R Kassi AO AO [id number] [facility] 2022-03-01 00:00:00 2022-03-01 00:00:00 Outpatient F[facility]Patel_R bruna_ [facility] [id number] [facility] 2022-02-27 14:00:00 2022-02-27 14:00:00 Outpatient Esdras KAYCAROLINA HAROOD [facility] [id number] [facility] 2022-02-26 00:00:00 2022-02-26 00:00:00 Outpatient FOG_Patel_R Kassi [facility] [id number] [facility] 2022-02-21 11:30:00 2022-02-21 11:45:00 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 Pob, Adc [facility] 1..840.114 350.1.13.10 4.2.7.2.686 [id number] 353 [id number] [facility] 2022-02-21 11:30:00 2022-02-21 11:30:00 Outpatient Esdras [facility] [id number] [facility] 2022-02-19 17:00:00 2022-02-19 17:15:00 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 Jayant, Adc Lab [facility] 1..840.114 350.1.13.10 4.2.7.2.686 [id number] [facility] 2022-02-19 17:00:00 2022-02-19 17:00:00 Outpatient Esdras [facility] [id number] [facility] 2022-02-08 00:00:00 2022-02-08 00:00:00 Patient Secure Msg Doctor Unassigned, [place] [facility] 1.840.114 350.1.13.10 4.2.7.2.686 [id number] [facility] 2022-02-07 14:30:00 2022-02-07 16:23:18 Office Visit [facility] 1.84.114 350.1.13.10 4.2.7.2.686 [id number] 044 [id number] [facility] 2022-02-07 14:30:00 2022-02-07 16:23:18 Outpatient R [facility] [id number] [facility] 2022-02-07 14:30:00 2022-02-07 14:30:00 Outpatient R [facility] [id number] [facility] 2022-02-04 00:00:00 2022-02-04 00:00:00 Telephone [facility] MEDICAL OFFICE BUILDING 1.84.114 350.1.13.10 4.2.7.2.686 [id number] 044 [id number] [facility] 2022-02-04 00:00:00 2022-02-04 00:00:00 Orders Only Doctor Unassigned, [place] [facility] 1..114 350.1.13.10 4.2.7.2.686 [id number] [facility] 2022-02-03 00:00:00 2022-02-03 00:00:00 [facility]phone [facility] MED[facility] OFF[facility]ILD[facility] 1.84.114 350.1.13.10 4.2.7.2.686 [id number] [id number] [facility] 2022-01-31 00:00:00 2022-01-31 00:00:00 [facility] 1.84.114 350.1.13.10 4.2.7.2.686 [id number] [facility] 2022-01-24 00:00:00 2022-01-24 00:00:00 [facility]phone [facility] 1.2.840.114 350.1.13.10 4.2.7.2.686 [id number] [facility] 2022-01-22 00:00:00 2022-01-22 00:00:00 Patient Secure g Mirtha Bowman [facility] [place]?[facility] MEDICAL OFFICE BUILDING 1.2.840.114 350.1.13.10 4.2.7.2.686 [id number] [facility] 2022-01-22 00:00:00 2022-01-22 00:00:00 Patient Secure g Mirtha Bowman [facility] [place]?[facility] MEDICAL OFFICE BUILDING 1.2.840.114 350.1.13.10 4.2.7.2.686 [id number] [id number] [facility] 2022-01-22 00:00:00 2022-01-22 00:00:00 Patient Secure [facility] MED[facility] OFFICE BUILDING 1.2.840.114 350.1.13.10 4.2.7.2.686 [id number] [facility] 2022-01-20 00:00:00 2022-01-20 00:00:00 [facility] MED[facility] OFFICE BUILD[facility] 1.2.840.114 350.1.13.10 4.2.7.2.686 [id number] [facility] 2022-01-17 14:15:00 2022-01-17 23:59:00 Outpatient R KELLY REYNAGA [facility] [id number] [facility] 2022-01-17 14:15:00 2022-01-17 14:15:00 Outpatient R KELLY REYNAGA [facility] [id number] [facility] 2022-01-17 14:00:00 2022-01-17 14:15:00 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 Lab, [place] [facility] 1.2.840.114 350.1.13.10 4.2.7.2.686 [id number] [facility] 2022-01-17 13:30:00 2022-01-17 14:10:08 [facility] 1..840.114 350.1.13.10 4.2.7.2.686 [id number] [facility] 2022-01-17 13:30:00 2022-01-17 13:30:00 Outpatient R KELLY REYNAGA [facility] [id number] [facility] 2021-12-25 00:00:00 2021-12-25 00:00:00 Orders Only Doctor Unassigned, [place] [facility] 1..840.114 350.1.13.10 4.2.7.2.686 [id number] [facility] 2021-12-24 17:15:00 2021-12-24 17:30:00 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, Adc Lab Main Kelly Reynaga [facility] NAL BUILDING 1.2.840.114 350.1.13.10 4.2.7.2.686 [id number] [facility] 2021-12-24 17:15:00 2021-12-24 17:15:00 Outpatient R KELLY REYNAGA [facility] [id number] [facility] 2021-12-24 16:30:00 2021-12-24 17:02:50 Outpatient R KELLY REYNAGA [facility] [id number] [facility] 2021-12-24 16:30:00 2021-12-24 17:02:50 [facility] 1.2.840.114 350.1.13.10 4.2.7.2.686 [id number] 044 [id number] [facility] 2021-12-24 00:00:00 2021-12-24 00:00:00 Telephone [facility] 1.2.840.114 350.1.13.10 4.2.7.2.686 [id number] [id number] [facility] 2021-12-24 00:00:00 2021-12-24 00:00:00 [facility] MEDICAL OFFICE BUILDING 1.2.840.114 350.1.13.10 4.2.7.2.686 [id number] 044 [id number] [facility] 2021-12-10 00:00:00 2021-12-10 00:00:00 Case Management Anne Martin 1.2.840.114 350.1.13.10 4.2.7.2.686 [id number] [facility] 2021-12-06 14:00:00 2021-12-06 14:00:00 Outpatient R KELLY RENYAGA [facility] [id number] [facility] 2021-11-29 08:00:00 2021-11-29 08:00:00 Outpatient KELLY ZAYAS [facility] [id number] [facility] 2021-11-18 14:00:00 2021-11-18 14:00:00 Outpatient KELLY ZAYAS [facility] [id number] [facility] 2021-11-16 00:00:00 2021-11-16 00:00:00 [facility] 1..840.114 350.1.13.10 4.2.7.2.686 [id number] [id number] [facility] 2021-11-14 14:00:00 2021-11-14 14:00:00 Outpatient R JUHIKELLY [facility] [id number] [facility] 2021-11-05 14:15:00 2021-11-05 15:07:08 Office Visit Nj Bullock [facility] 1..840.114 350.1.13.10 4.2.7.2.686 [id number] [facility] 2021-11-05 14:15:00 2021-11-05 15:07:08 Outpatient NJ PETERSEN [facility] [id number] [facility] 2021-11-05 14:15:00 2021-11-05 14:15:00 Outpatient NJ PETERSEN [facility] [id number] [facility] 2021-11-05 00:00:00 2021-11-05 00:00:00 Orders Only Doctor Unassigned, [place] [facility] 1..840.114 350.1.13.10 4.2.7.2.686 [id number] [facility] 2021-10-28 14:00:00 2021-10-28 14:00:00 Outpatient R JUHIKELLY [facility] [id number] [facility] 2021-10-23 22:47:00 2021-10-24 01:33:00 Emergency X MALACHI DURAN [facility] E[facility] [id number] [facility] 2021-10-23 22:47:00 2021-10-24 01:33:00 Emergency Malachi Duran [facility] 1..840.114 350.1.13.10 4.2.7.2.686 [id number] [facility] 2021-10-15 13:30:00 2021-10-15 14:20:44 Outpatient R KELLY REYNAGA [facility] [id number] [facility] 2021-10-15 13:30:00 2021-10-15 14:20:44 [facility] 1..840.114 350.1.13.10 4.2.7.2.686 [id number] [id number] [facility] 2021-10-15 13:30:00 2021-10-15 14:20:44 Outpatient R KELLY REYNAGA [facility] [id number] [facility] 2021-10-14 16:45:00 2021-10-14 18:51:00 Emergency X Burke POSEY [facility] ERT [id number] [facility] 2021-10-14 16:45:00 2021-10-14 18:51:00 Emergency Burke Posey [facility] 1..840.114 350.1.13.10 4.2.7.2.686 [id number] [facility] 2021-10-14 16:45:00 2021-10-14 18:51:00 Emergency X Burke POSEY [facility] E[facility] [id number] [facility] 2021-10-08 00:00:00 2021-10-08 00:00:00 Telephone [facility] 1..840.114 350.1.13.10 4.2.7.2.686 [id number] [facility] 2021-10-01 11:30:00 2021-10-01 11:30:00 Outpatient R KELLY REYNAGA [facility] [id number] [facility] 2021-09-16 08:30:00 2021-09-16 08:30:00 Outpatient R KELLY REYNAGA [facility] [id number] [facility] 2021-09-16 08:30:00 2021-09-16 08:30:00 Outpatient R KELLY REYNAGA [facility] [id number] [facility] 2021-09-13 09:18:02 2021-09-13 23:59:00 Outpatient R MARLEY CAMARILLO [facility] [id number] [facility] 2021-09-13 09:18:02 2021-09-13 23:59:00 Hospital Encounter Marley Camarillo [facility] 1..840.114 350.1.13.10 4.2.7.2.686 [id number] [facility] 2021-09-13 00:00:00 2021-09-13 00:00:00 Orders Only Doctor Unassigned, [place] [facility] 1.840.114 350.1.13.10 4.2.7.2.686 [id number] [facility] 2021-09-03 00:00:00 2021-09-03 00:00:00 Patient Secure Msg Doctor Unassigned, [place] [facility] 1..840.114 350.1.13.10 4.2.7.2.686 [id number] 044 [id number] [facility] 2021-09-02 14:30:00 2021-09-02 14:30:00 Outpatient R KELLY REYNAGA [facility] [id number] [facility] 2021-08-30 12:00:00 2021-08-30 12:15:00 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 Lab, [facility] 1..840.114 350.1.13.10 4.2.7.2.686 [id number] [facility] 2021-08-30 12:00:00 2021-08-30 12:00:00 Outpatient R KELLY REYNAGA [facility] [id number] [facility] 2021-08-30 12:00:00 2021-08-30 12:00:00 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 Lab, [place] [facility] MEDICAL OFFICE BUILDING 1..840.114 350.1.13.10 4.2.7.2.686 [id number] [facility] 2021-08-30 11:30:00 2021-08-30 11:34:07 Office Visit Juhi [facility] MEDICAL OFFICE BUILDING 1..840.114 350.1.13.10 4.2.7.2.686 [id number] [id number] [facility] 2021-08-30 11:30:00 2021-08-30 11:34:07 Outpatient Esdras REYNAGAKELLY [facility] [id number] [facility] 2021-08-08 10:30:00 2021-08-08 10:30:00 Outpatient Esdr[facility] [id number] [facility] 2021-08-08 00:00:00 2021-08-08 00:00:00 Orders Only Doctor Unassigned, [place] [facility] 1.2.840.114 350.1.13.10 4.2.7.2.686 [id number] [facility] 2021-08-07 13:30:00 2021-08-07 13:30:00 Outpatient R JUHIKELLY [facility] [id number] [facility] 2021-07-30 00:00:00 2021-07-30 00:00:00 Patient Secure Msg Doctor Unassigned, [place] [facility] 1.2840.114 350.1.13.10 4.2.7.2.686 [id number] [facility] 2021-07-27 00:00:00 2021-07-27 00:00:00 Nurse Triage Susan Aguilera [facility] 1.2840.114 350.1.13.10 4.2.7.2.686 [id number] [facility] 2021-07-01 00:00:00 2021-07-01 00:00:00 Telephone Provider, [place] [facility] MEDICAL OFFICE BUILDING 1.2.114 350.1.13.10 4.2.7.2.686 [id number] [facility] 2021-06-28 16:40:00 2021-06-28 17:00:00 Urgent Care Viola Spivey Amanda [facility] MEDICAL OFFICE BUILDING 1..114 350.1.13.10 4.2.7.2.686 [id number] [facility] 2021-06-28 16:40:00 2021-06-28 16:40:00 Outpatient R VIOLA SPIVEY [facility] [id number] [facility] 2021-06-28 00:00:00 2021-06-28 00:00:00 Patient Secure Kelly Zamora [facility] MEDICAL OFFICE BUILDING 1.2840.114 350.1.13.10 4.2.7.2.686 [id number] [facility] 2021-06-26 09:30:00 2021-06-26 09:45:00 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 Pob, Adc Lab Main Cem Portillo [facility] RAYO NURESSIO NAL BUILDING 1.2840.114 350.1.13.10 4.2.7.2.686 [id number] [facility] 2021-06-26 09:30:00 2021-06-26 09:30:00 Outpatient CEM JAQUEZ [facility] [id number] [facility] 2021-06-26 00:00:00 2021-06-26 00:00:00 Orders Only Doctor Unassigned, [place] [facility] 1.2840.114 350.1.13.10 4.2.7.2.686 [id number] [facility] 2021-06-20 00:00:00 2021-06-20 00:00:00 Telephone [facility] MEDICAL OFFICE BUILDING 1..840.114 350.1.13.10 4.2.7.2.686 [id number] [facility] 2021-06-14 10:15:00 2021-06-14 10:30:00 Laboratory Only Only, Ang Db Test Rony [facility] MEDICAL OFFICE BUILDING 1..840.114 350.1.13.10 4.2.7.2.686 [id number] [facility] 2021-06-14 10:15:00 2021-06-14 10:15:00 Outpatient CELINA TAN [facility] [id number] [facility] 2021-05-30 00:00:00 2021-05-30 00:00:00 Patient Secure Msg Juhi [facility] MEDICAL OFFICE BUILDING 1..840.114 350.1.13.10 4.2.7.2.686 [id number] [facility] 2021-05-29 00:00:00 2021-05-29 00:00:00 Outpatient R KELLY REYNAGA [facility] [id number] [facility] 2021-05-29 00:00:00 2021-05-29 00:00:00 Outpatient R KELLY REYNAGA [facility] [id number] [facility] 2021-05-23 14:30:00 2021-05-23 14:45:00 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 Lab, [place] JohnsonStephenie [facility] MEDICAL OFFICE BUILDING 1.2.840.114 350.1.13.10 4.2.7.2.686 [id number] [facility] 2021-05-23 14:30:00 2021-05-23 14:30:00 Outpatient R KELLY REYNAGA [facility] [id number] [facility] 2021-05-23 13:30:00 2021-05-23 14:24:35 Outpatient R KELLY REYNAGA [facility] [id number] [facility] 2021-05-23 13:30:00 2021-05-23 14:24:35 Office Visit [facility] MEDICAL OFFICE BUILDING 1..840.114 350.1.13.10 4.2.7.2.686 [id number] [facility] 2021-05-23 13:30:00 2021-05-23 14:24:35 Outpatient R KELLY REYNAGA [facility] [id number] [facility] 2021-05-10 09:20:00 2021-05-10 09:43:39 Outpatient R NICKY PECK [facility] [id number] [facility] 2021-05-10 09:16:09 2021-05-10 09:26:09 Imm/Inj Visit Vaccine, [place] Cbc Fam Unknown, Attending [facility] MEDICAL OFFICE BUILDING 1.2.840.114 350.1.13.10 4.2.7.2.686 [id number] [id number] [facility] 2021-05-10 09:20:00 2021-05-10 09:20:00 Outpatient R TICO ANDRADE [facility] [id number] [facility] 2021-05-09 00:00:00 2021-05-09 00:00:00 Telephone [facility] 1.2.840.114 350.1.13.10 4.2.7.2.686 [id number] [id number] [facility] 2021-05-07 13:36:55 2021-05-07 13:56:55 Urgent Care Rony [facility] [place]?[facility] MEDICAL OFFICE BUILDING 1.2.840.114 350.1.13.10 4.2.7.2.686 [id number] [facility] 2021-05-07 13:20:00 2021-05-07 13:20:00 Outpatient R CELINA URIBE [facility] [id number] [facility] 2021-05-07 00:00:00 2021-05-07 00:00:00 Telephone [facility] 1.2.840.114 350.1.13.10 4.2.7.2.686 [id number] [id number] [facility] 2021-04-22 12:15:00 2021-04-22 12:15:00 Outpatient R KELLY REYNAGA [facility] [id number] [facility] 2021-04-22 11:24:12 2021-04-22 11:39:12 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 Lab, [place] [facility] 1.2.840.114 350.1.13.10 4.2.7.2.686 [id number] [facility] 2021-04-22 10:30:30 2021-04-22 11:22:34 Office Visit [facility] 1.2.840.114 350.1.13.10 4.2.7.2.686 [id number] [id number] [facility] 2021-04-22 10:30:00 2021-04-22 11:22:34 Outpatient R KELLY REYNAGA [facility] [id number] [facility] 2021-04-16 10:30:00 2021-04-16 10:30:00 Outpatient R KELLY REYNAGA [facility] [id number] [facility] 2021-04-15 00:00:00 2021-04-15 00:00:00 [facility] 1.2.840.114 350.1.13.10 4.2.7.2.686 [id number] 044 [id number] [facility] 2021-04-15 00:00:00 2021-04-15 00:00:00 Telephone [facility] 1.2.840.114 350.1.13.10 4.2.7.2.686 [id number] [id number] [facility] 2021-03-27 13:32:13 2021-03-27 13:52:13 Urgent Care Celina Uribe [facility] 1.2.840.114 350.1.13.10 4.2.7.2.686 [id number] [facility] 2021-03-27 13:30:00 2021-03-27 13:30:00 Outpatient R CELINA URIBE [facility] [id number] [facility] 2021-03-18 13:00:00 2021-03-18 13:00:00 Outpatient R SIVAKUMAR FISHER [facility] [id number] [facility] 2021-02-07 17:08:23 2021-02-07 17:28:23 Urgent Care Viola [facility] 1.84.114 350.1.13.10 4.2.7.2.686 [id number] [facility] 2021-02-07 17:00:00 2021-02-07 17:00:00 Outpatient R CELINA URIBE [facility] [id number] [facility] 2021-02-04 00:00:00 2021-02-04 00:00:00 Nurse Triage [facility] 1.0.114 350.1.13.10 4.2.7.2.686 [id number] [facility] 2021-02-04 00:00:00 2021-02-04 00:00:00 Nurse Triage [facility] 1..114 350.1.13.10 4.2.7.2.686 [id number] [facility] 2021-01-17 18:01:55 2021-01-17 18:21:55 Urgent Care Patric [facility] Office Building [facility] 1.84.114 350.1.13.10 4.2.7.2.686 [id number] [facility] 2021-01-17 18:00:00 2021-01-17 18:00:00 Outpatient [facility] [id number] [facility] 2021-01-10 17:55:42 2021-01-10 18:45:04 Urgent Care Diana Bernard [facility] Office Building [facility] 1.84.114 350.1.13.10 4.2.7.2.686 [id number] [id number] [facility] 2021-01-10 17:40:00 2021-01-10 17:40:00 Outpatient R VIOLA SPIVEY [facility] [id number] [facility] 2020-11-15 19:00:00 2020-11-15 19:00:00 Outpatient R [facility] [id number] [facility] 2020-10-26 09:45:00 2020-10-26 23:59:00 Hospital Encounter Kelly Reynaga [facility] 1.2.840.114 350.1.13.10 4.2.7.2.686 [id number] 2020-10-26 09:45:00 2020-10-26 23:59:00 Hospital Encounter Kelly Reynaga [facility] 1.2.840.114 350.1.13.10 4.2.7.2.686 [id number] [facility] 2020-10-26 08:47:17 2020-10-26 09:07:17 Urgent Care Provider, [facility] Office [facility] 1.0.114 350.1.13.10 4.2.7.2.686 [id number] 2020-10-26 08:47:17 2020-10-26 09:07:17 [facility] Care Provider, [facility] 1.2840.114 350.1.13.10 4.2.7.2.686 [id number] 044 [id number] [facility] 2020-10-26 09:00:00 2020-10-26 09:00:00 Outpatient R KELLY REYNAGA [facility] [id number] [facility] 2020-10-26 00:00:00 2020-10-26 00:00:00 Telephone Provider, [facility] Office [facility] 1.0.114 350.1.13.10 4.2.7.2.686 [id number] 2020-10-26 00:00:00 2020-10-26 00:00:00 Orders Only Doctor Unassigned, [place] [facility] 1.2.840.114 350.1.13.10 4.2.7.2.686 [id number] 2020-10-26 00:00:00 2020-10-26 00:00:00 Orders Only Doctor Unassigned, [place] [facility] 1.2.840.114 350.1.13.10 4.2.7.2.686 [id number] [facility] 2020-10-26 00:00:00 2020-10-26 00:00:00 Telephone Provider, [facility] Care [facility] Office [facility] 1.2840.114 350.1.13.10 4.2.7.2.686 [id number] 044 [id number] [facility] 2020-10-17 00:00:00 2020-10-17 00:00:00 Telephone Provider, [facility] Urgent Care [facility] Office Building One 1.2.840.114 350.1.13.10 4.2.7.2.686 [id number] 2020-10-17 00:00:00 2020-10-17 00:00:00 Telephone Provider, [facility] Urgent Care [facility] Office Building One 1.2.840.114 350.1.13.10 4.2.7.2.686 [id number] [facility] 2020-10-16 09:22:16 2020-10-16 10:22:39 Urgent Care Provider, [facility] Urgent Care [facility] Office [facility] One 1.2840.114 350.1.13.10 4.2.7.2.686 [id number] [id number] 2020-10-16 09:22:16 2020-10-16 10:22:39 Urgent Care Provider, [facility] Urgent Care Kelly Reynaga [facility] Office Building One 1.2.840.114 350.1.13.10 4.2.7.2.686 [id number] [facility] 2020-10-16 09:00:00 2020-10-16 09:00:00 Outpatient R KELLY REYNAGA [facility] [id number] [facility] 2020-09-19 16:10:00 2020-09-19 08:56:31 Outpatient R STEVE MURO [facility] [id number] [facility] 2020-08-29 16:10:00 2020-08-29 15:31:49 Outpatient R STEVE MURO [facility] [id number] [facility] Results Test Description Test Time Test Comments [...] or mass effect. The opacified vessels [place] areunremarkable. The orbits and intraorbital [...] are clear. No acute osseous abnormalities areidentified. [facility] GLUCOSE (AUTOMATED)2023-12-11 16:57:53* Test Item Value Reference Range Interpretation Comme nts POCT GLU (test code = 1781643538) 138 mg/dL 70-110 H Lab Interpretation (test cod e = 34534-2) Abnormal [facility] GLUCOSE (AUTOMATED)2023-12-11 16:57:53* Test Item Value Reference Range Interpretation Comme nts POCT GLU (test code = 8320872261) 138 mg/dL 70-110 H Lab Interpretation (test cod e = 62943-4) Abnormal [facility]2024-07-05 14:22:19* Test Item Value Reference Range Interpretation Comme nts MAGNESIUM (test code = 1147752217) 2.2 mg/dL 1.7-2.4 Lab Interpretation (test cod e = 15811-3) Normal [facility]2024-07-05 14:22:19* Test Item Value Reference Range Interpretation Comme nts MAGNESIUM (test code = 1776201923) 2.2 mg/dL 1.7-2.4 Lab Interpretation (test cod e = 87990-8) Normal [facility] GLUCOSE (AUTOMATED)2023-12-11 13:32:45* Test Item Value Reference Range Interpretation Comme nts POCT GLU (test code = 6443673681) 159 mg/dL 70-110 H Lab Interpretation (test cod e = 95210-6) Abnormal [facility] GLUCOSE (AUTOMATED)2023-12-11 13:32:45* Test Item Value Reference Range Interpretation Comme nts POCT GLU (test code = 8563544191) 159 mg/dL 70-110 H Lab Interpretation (test cod e = 47346-2) Abnormal [facility] Metabolic Panel (NA, K, CL, CO2, GLUCOSE, BUN, CREATININE, CA)2023-12-11 11:45:14* Test Item Value Reference Range Interpretation Comme nts NA (test code = 0141494276) 141 mmol/L 135-145 K (test code = 6261289077) 3.9 mmol/L 3.5-5.0 CL (test code = 4986526160) 108 mmol/L 98-108 CO2 TOTAL (test code = 1778700056) 27 mmol/L 23-31 AGAP (test code = 3856930013) 6 2-16 BUN (test code = 6551919500) 12 mg/dL 7-23 GLUCOSE (test code = 6504727298) 173 mg/dL 70-110 H CREATININE (test code = 2160-0) 0.57 mg/dL 0.50-1.04 CALCIUM (test code = 3393589605) 8.7 mg/dL 8.6-10.6 eGFR (test code = 33324-2) 125.6 mL/min/1.73m2 CKD-EPI eGFR (2020). Assuming creatinine has been stable day-to-day for at least three months, the eGFR indicates Category G1 (>= 90 mL/min/1.73 m2) Lab Interpretation (test code = 62495-3) Abnormal [facility] Metabolic Panel (NA, K, CL, CO2, GLUCOSE, BUN, CREATININE, CA)2023-12-11 11:45:14* Test Item Value Reference Range Interpretation Comme nts NA (test code = 7149283483) 141 mmol/L 135-145 K (test code = 0845442323) 3.9 mmol/L 3.5-5.0 CL (test code = 4831991272) 108 mmol/L 98-108 CO2 TOTAL (test code = 7075370036) 27 mmol/L 23-31 AGAP (test code = 4797407799) 6 2-16 BUN (test code = 5939081493) 12 mg/dL 7-23 GLUCOSE (test code = 5800468626) 173 mg/dL 70-110 H CREATININE (test code = 2160-0) 0.57 mg/dL 0.50-1.04 CALCIUM (test code = 3455526149) 8.7 mg/dL 8.6-10.6 eGFR (test code = 30128-0) 125.6 mL/min/1.73m2 CKD-EPI eGFR (2020). Assuming creatinine has been stable day-to-day for at least three months, the eGFR indicates Category G1 (>= 90 mL/min/1.73 m2) Lab Interpretation (test code = 46463-8) Abnormal [facility] with Srys1829-07-16 11:21:13* Test Item Value Reference Range Interpretation [...] 31.8 g/dL 31.6-35.1 RDW-SD (test code = 65981-1) 42.0 fL 39.0-49.9 RDW-CV (test code = 788-0) 12.5 % 12.0-15.5 PLT (test code = 777-3) 333 166-358 MPV (test code = 50310-5) 10.0 fL 9.5-12.9 NRBC/100 WBC (test code = 5989914958) 0.0 0.0-10.0 NRBC x10^3 (test code = 7965079043) See_Comment [Automated message] The system which generated this result transmitted reference range: 10*3/?L. The reference range was not used to interpret this result as normal/abnormal. GRAN MAT (NEUT) % (test code = 770-8) 92.0 % IMM GRAN % (test code = 8175009801) 0.40 % LYMPH % (test code = 736-9) 6.2 % MONO % (test code = 5905-5) 1.3 % EOS % (test code = 713-8) 0.0 % BASO % (test code = 706-2) 0.1 % GRAN MAT x10^3(ANC) (test code = 2097619747) 14.43 10*3/uL 1.88-7.09 H IMM GRAN x10^3 (test code = 5678124917) 0.07 10*3/uL 0.00-0.06 H LYMPH x10^3 (test code = 731-0) 0.97 10*3/uL 1.32-3.29 L MONO x10^3 (test code = 742-7) 0.21 10*3/uL 0.33-0.92 L EOS x10^3 (test code = 711-2) 0.03-0.39 L BASO x10^3 (test code = 704-7) 0.01-0.07 Lab Interpretation (test code = 65604-2) Abnormal [facility] with [id number] 11:21:13* Test Item Value Reference Range Interpretation [...] 31.8 g/dL 31.6-35.1 RDW-SD (test code = 03879-3) 42.0 fL 39.0-49.9 RDW-CV (test code = 788-0) 12.5 % 12.0-15.5 PLT (test code = 777-3) 333 166-358 MPV (test code = 42945-5) 10.0 fL 9.5-12.9 NRBC/100 WBC (test code = 4208934541) 0.0 0.0-10.0 NRBC x10^3 (test code = 0599843644) See_Comment [Automated message] The system which generated this result transmitted reference range: 10*3/?L. The reference range was not used to interpret this result as normal/abnormal. GRAN MAT (NEUT) % (test code = 770-8) 92.0 % IMM GRAN % (test code = 7610610686) 0.40 % LYMPH % (test code = 736-9) 6.2 % MONO % (test code = 5905-5) 1.3 % EOS % (test code = 713-8) 0.0 % BASO % (test code = 706-2) 0.1 % GRAN MAT x10^3(ANC) (test code = 1667500433) 14.43 10*3/uL 1.88-7.09 H IMM GRAN x10^3 (test code = 9331510402) 0.07 10*3/uL 0.00-0.06 H LYMPH x10^3 (test code = 731-0) 0.97 10*3/uL 1.32-3.29 L MONO x10^3 (test code = 742-7) 0.21 10*3/uL 0.33-0.92 L EOS x10^3 (test code = 711-2) 0.03-0.39 L BASO x10^3 (test code = 704-7) 0.01-0.07 Lab Interpretation (test code = 62304-5) Abnormal [facility] GLUCOSE (AUTOMATED)2023-12-11 01:23:03* Test Item Value Reference Range Interpretation Comme nts POCT GLU (test code = 1209259621) 168 mg/dL 70-110 H Lab Interpretation (test cod e = 16315-0) Abnormal [facility] GLUCOSE (AUTOMATED)2023-12-11 01:23:03* Test Item Value Reference Range Interpretation Comme nts POCT GLU (test code = 7295376454) 168 mg/dL 70-110 H Lab Interpretation (test cod e = 57938-6) Abnormal [facility] GLUCOSE (AUTOMATED)2023-12-10 22:21:36* Test Item Value Reference Range Interpretation Comme nts POCT GLU (test code = 6456127889) 155 mg/dL 70-110 H Lab Interpretation (test cod e = 08499-3) Abnormal [facility] GLUCOSE (AUTOMATED)2023-12-10 22:21:36* Test Item Value Reference Range Interpretation Comme nts POCT GLU (test code = 2799512874) 155 mg/dL 70-110 H Lab Interpretation (test cod e = 27369-7) Abnormal [facility] GLUCOSE (AUTOMATED)2023-12-10 17:52:15* Test Item Value Reference Range Interpretation Comme nts POCT GLU (test code = 7391303978) 125 mg/dL 70-110 H Lab Interpretation (test cod e = 22025-3) Abnormal [facility] GLUCOSE (AUTOMATED)2023-12-10 17:52:15* Test Item Value Reference Range Interpretation Comme nts POCT GLU (test code = 2332579590) 125 mg/dL 70-110 H Lab Interpretation (test cod e = 96989-6) Abnormal [facility] GLUCOSE (AUTOMATED)2023-12-10 16:37:22* Test Item Value Reference Range Interpretation Comme nts POCT GLU (test code = 1796789500) 114 mg/dL 70-110 H Lab Interpretation (test cod e = 53257-1) Abnormal [facility] GLUCOSE (AUTOMATED)2023-12-10 16:37:22* Test Item Value Reference Range Interpretation Comme nts POCT GLU (test code = 7783550104) 114 mg/dL 70-110 H Lab Interpretation (test cod e = 84473-5) Abnormal [facility] GLUCOSE (AUTOMATED)2023-12-09 14:58:19* Test Item Value Reference Range Interpretation Comme nts POCT GLU (test code = 6528699776) 114 mg/dL 70-110 H Lab Interpretation (test cod e = 99534-2) Abnormal [facility] GLUCOSE (AUTOMATED)2023-12-09 14:58:19* Test Item Value Reference Range Interpretation Comme nts POCT GLU (test code = 9315429974) 114 mg/dL 70-110 H Lab Interpretation (test cod e = 28664-1) Abnormal [facility] Glucose(Age >30days)2023-12-09 14:58:00* Test Item Value Reference Range Interpretation Comme nts POCT Glu (age>30days) (test code = 3342) 114 mg/dL 70-110 A Lab Interpretation (test cod e = 40287-6) Abnormal [facility] Glucose(Age >30days)2023-12-09 14:58:00* Test Item Value Reference Range Interpretation Comme nts POCT Glu (age>30days) (test code = 3342) 114 mg/dL 70-110 A Lab Interpretation (test cod e = 90817-2) Abnormal [facility] [id number] 14:38:00* Test Item Value Reference Range Interpretation Comme nts POCT PREG (test code = 1605) Negative On board controls acceptable with C Line (test code = 3574) Yes POCT PREG LOT # (test code = 3575) POCT PREG TEST DATE ( test code = 3576) Lab Interpretation (test cod e = 06123-7) Normal [facility] [id number] 14:38:00* Test Item Value Reference Range Interpretation Comme nts POCT PREG (test code = 1605) Negative On board controls acceptable with C Line (test code = 3574) Yes POCT PREG LOT # (test code = 3575) POCT PREG TEST DATE ( test code = 3576) Lab Interpretation (test cod e = 17130-9) Normal [facility] GLUCOSE (AUTOMATED)2023-11-12 13:30:37* Test Item Value Reference Range Interpretation Comme nts POCT GLU (test code = 6179407148) 110 mg/dL 70-110 Lab Interpretation (test cod e = 67831-9) Normal [facility] GLUCOSE (AUTOMATED)2023-11-12 13:30:37* Test Item Value Reference Range Interpretation Comme nts POCT GLU (test code = 0637151200) 110 mg/dL 70-110 Lab Interpretation (test cod e = 75396-1) Normal [facility] [id number] 13:19:00* Test Item Value Reference Range Interpretation Comme nts POCT PREG (test code = 1605) Negative On board controls acceptable with C Line (test code = 3574) Yes POCT PREG LOT # (test code = 3575) POCT PREG TEST DATE ( test code = 3576) [facility] [id number] 13:19:00* Test Item Value Reference Range Interpretation Comme nts POCT PREG (test code = 1605) Negative On board controls acceptable with C Line (test code = 3574) Yes POCT PREG LOT # (test code = 3575) POCT PREG TEST DATE ( test code = 3576) [facility]-14 23:12:38* Test Item Value Reference Range Interpretation Comme nts Height (test code = 0043958143) 60 in Weight (test code = 4724931470) 204 lbs Systolic BP (test code = 6199335186) 108 mmHg Diastolic BP (test code = 1938792123) 72 mmHg Heart Rate (test code = 0158654696) 102 bpm RVOT diameter (test code = 2355781448) 1.76 cm RVOT Proximal Diameter (test code = 1861879570) 2.16 cm MR max PG (test code = 6665529879) 42.80 mm[Hg] MR max camila (test code = 3136710578) 327.20 cm/s Ao root diam (test code = 3389161291) 2.42 cm Mr max camila (test code = 6513957407) 327.2 m/s Aortic root (test code = 1350815435) 2.42 cm Ao root annulus (test code = 6424368643) 2.42 cm BSA (test code = 9503951171) 1.88 m2 LVOT diameter (test code = 1107779449) 1.54 cm LVOT area (test code = 9314961695) 1.86 cm2 LA size (test code = 7079116027) 2.8 cm ACS (test code = 0696197340) 1.90 cm LVIDD (test code = 9042495309) 4.50 cm Left Ventricular End Diastolic Volume by Teichholz Method (test code = 1524855) 94.3 mL IVS (test code = 7570301529) 0.85 cm Interventricular Septum Diastolic Thickness by 2D (test code = 4985971) 0.85 cm LVPWD (test code = 9311528747) 0.81 cm PW (test code = 3903026171) 0.81 cm 0.6-1.1 EF(Teich) (test code = 7604547229) 55.10 % LVIDS (test code = 1675323943) 3.20 cm Left Ventricular End Systolic Volume by Teichholz Method (test code = 3396242) 42.4 mL FS (test code = 8968331010) 29 % EF - 2D (test code = 50382153) 55.10 % TR Peak Camila (test code = 1414296799) 267.9 cm/s Triscuspid Valve Regurgitation Peak Gradient (test code = 2296843716) 28.7 mmHg PV PEAK VELOCITY (test code = 7121392745) 96.9 cm/s PV peak gradient (test code = 7890270062) 3.8 mmHg MV E-F slope (test code = 4388859210) 43.60 cm/s MV Peak E Camila (test code = 2738870868) 103.2 cm/s MV Peak A Camila (test code = 5801315956) 78.6 cm/s E/A ratio (test code = 1866378314) 1.31 ratio MV valve area p 1/2 method (test code = 5618671425) 8.70 cm2 MV dec slope (test code = 0294025918) 1197.00 cm/s2 MV P1/2t max camila (test code = 1223430592) 103.80 cm/s LVOT stroke volume (test code = 3260527306) 34.20 cm3 LVOT peak camila (test code = 6454662017) 99.6 cm/s LVOT mn grad (test code = 7711654948) 1.7 mmHg AV LVOT peak gradient (test code = 1865504148) 4.0 mmHg LVOT peak VTI (test code = 9529663618) 18.4 cm LV V1 mean (test code = 3208335273) 59.30 cm/s Aortic valve mean velocity (test code = 9796319654) 79.3 cm/s Ao peak camila (test code = 3740579234) 136.4 cm/s Ao VTI (test code = 8241546601) 26.5 cm AV area by cont VTI (test code = 0246822799) 1.3 cm2 AV area peak camila (test code = 2232664333) 1.4 cm2 Ao max PG (test code = 3287460557) 7.40 mm[Hg] AV peak gradient (test code = 4209507229) 7.4 mmHg AV valve area (test code = 7373623397) 1.29 cm2 AV mean gradient (test code = 9954484198) 3.0 mmHg LAV(MOD-sp4) (test code = 3833390753) 15.30 mL LA Volume Index (BP) (test code = 4014173111) 8.6 mL/m2 LA volume (BP) (test code = 4317505546) 16.2 mL LAV(MOD-sp2) (test code = 4300687732) 17.10 mL A4C EF (test code = 3069172494) 60.00 % EF(sp4-el) (test code = 6420944581) 60.80 % SV(MOD-sp4) (test code = 3453193742) 28.80 mL SV(sp4-el) (test code = 3194985663) 29.80 mL RVOT area (test code = 7368707759) 2.43 cm2 Radiology Study observation (narrative) (test code = 03954-7) MIKE (test code = MIKE) ?Left?Ventricle: Left [...] 2D, color flow Doppler and spectral Doppler. [facility] Urinalysis W Specific [id number] 22:57:00* Test Item Value Reference Range Interpretation [...] 3267) Lab Interpretation (test cod e = 07140-2) Abnormal [facility] Urinalysis W Specific [id number] 22:57:00* Test Item Value Reference Range Interpretation [...] 3267) Lab Interpretation (test cod e = 35967-5) Abnormal [facility] [id number] 22:56:00* Test Item Value Reference Range Interpretation Comme nts POCT PREG (test code = 1605) Negative On board controls acceptable with C Line (test code = 3574) Yes POCT PREG LOT # (test code = 3575) POCT PREG TEST DATE ( test code = 3576) Lab Interpretation (test cod e = 31774-0) [facility] [id number] 22:56:00* Test Item Value Reference Range Interpretation Comme nts POCT PREG (test code = 1605) Negative On board controls acceptable with C Line (test code = 3574) Yes POCT PREG LOT # (test code = 3575) POCT PREG TEST DATE ( test code = 3576) Lab Interpretation (test cod e = 29326-4) [facility] B12, [id number] 01:22:28* Test Item Value Reference Range Interpretation Comme nts VIT B12 (test code = 8616557264) 260 pg/mL 240-930 MIKE (test code = MIKE) Biotin has been reported to cause a positive bias, interpret results relative to patient's use of biotin. Lab Interpretation (test code = 91073-4) [facility] [id number] 01:22:28* Test Item Value Reference Range Interpretation Comme nts VIT B12 (test code = 7236288909) 260 pg/mL 240-930 MIKE (test code = MIKE) Biotin has been reported to cause a positive bias, interpret results relative to patient's use of biotin. Lab Interpretation (test code = 66442-0) [facility] [id number] 00:06:36 * Test Item Value Reference Range Interpretation Comme nts TSH (test code = 7387330418) 1.50 See_Comment [Automated messa ge] The system which generated this result transmitted reference range: 0.45 - 4.70 mIU/L. The reference range was not used to interpret this result as normal/abnormal. Lab Interpretation (test code = 40977-4) [facility] [id number] 00:06:36 * Test Item Value Reference Range Interpretation Comme nts TSH (test code = 4840379244) 1.50 See_Comment [Automated messa ge] The system which generated this result transmitted reference range: 0.45 - 4.70 mIU/L. The reference range was not used to interpret this result as normal/abnormal. Lab Interpretation (test code = 22397-5) [facility] METABOLIC PANEL (56618)2023-05-15 23:37:48* Test Item Value Reference Range Interpretation Comme nts NA (test code = 7425028543) 142 mmol/L 135-145 K (test code = 9752582566) 3.9 mmol/L 3.5-5.0 CL (test code = 8924689129) 105 mmol/L 98-108 CO2 TOTAL (test code = 3910535798) 26 mmol/L 23-31 AGAP (test code = 5218127579) 11 2-16 BUN (test code = 9421799462) 6 mg/dL 7-23 L GLUCOSE (test code = 1927952638) 109 mg/dL 70-110 CREATININE (test code = 0553754590) 0.67 mg/dL 0.50-1.04 TOTAL BILI (test code = 6327361975) 0.5 mg/dL 0.1-1.1 CALCIUM (test code = 4794030131) 9.3 mg/dL 8.6-10.6 T PROTEIN (test code = 3609698953) 7.3 g/dL 6.3-8.2 ALBUMIN (test code = 8210612132) 3.9 g/dL 3.5-5.0 ALK PHOS (test code = 4869332417) 210 U/L 34-122 H ALTv (test code = 1742-6) 30 U/L 5-35 AST(SGOT) (test code = 9161063602) 19 U/L 13-40 eGFR (test code = 64973-0) 121.5 mL/min/1.73m2 CKD-EPI eGFR (2020). Assuming creatinine has been stable day-to-day for at least three months, the eGFR indicates Category G1 (>= 90 mL/min/1.73 m2) Lab Interpretation (test code = 19966-0) [facility]normal [facility]2023-12-08 23:37:48* Test Item Value Reference Range Interpretation Comme nts MAGNESIUM (test code = 7127848469) 2.0 mg/dL 1.7-2.4 Lab Interpretation (test cod e = 03624-1) Normal [facility]. METABOLIC PANEL (70261)2023-05-15 23:37:48* Test Item Value Reference Range Interpretation Comme nts NA (test code = 4484056195) 142 mmol/L 135-145 K (test code = 7623441347) 3.9 mmol/L 3.5-5.0 CL (test code = 5590183555) 105 mmol/L 98-108 CO2 TOTAL (test code = 0086356324) 26 mmol/L 23-31 AGAP (test code = 7028763868) 11 2-16 BUN (test code = 0495178789) 6 mg/dL 7-23 L GLUCOSE (test code = 8265180497) 109 mg/dL 70-110 CREATININE (test code = 7406942355) 0.67 mg/dL 0.50-1.04 TOTAL BILI (test code = 3963378802) 0.5 mg/dL 0.1-1.1 CALCIUM (test code = 7318133476) 9.3 mg/dL 8.6-10.6 T PROTEIN (test code = 6312768240) 7.3 g/dL 6.3-8.2 ALBUMIN (test code = 9972443422) 3.9 g/dL 3.5-5.0 ALK PHOS (test code = 5751515018) 210 U/L 34-122 H ALTv (test code = 1742-6) 30 U/L 5-35 AST(SGOT) (test code = 1217706728) 19 U/L 13-40 eGFR (test code = 90182-2) 121.5 mL/min/1.73m2 CKD-EPI eGFR (2020). Assuming creatinine has been stable day-to-day for at least three months, the eGFR indicates Category G1 (>= 90 mL/min/1.73 m2) Lab Interpretation (test code = 18938-8) [facility]normal [facility]2023-12-08 23:37:48* Test Item Value Reference Range Interpretation Comme nts MAGNESIUM (test code = 0556418532) 2.0 mg/dL 1.7-2.4 Lab Interpretation (test cod e = 82201-6) Normal [facility] WITH [id number] 23:13:22* Test Item Value Reference Range Interpretation [...] 33.3 g/dL 31.6-35.1 RDW-SD (test code = 40979-6) 42.5 fL 39.0-49.9 RDW-CV (test code = 788-0) 12.9 % 12.0-15.5 PLT (test code = 777-3) 364 See_Comment H [Automated messa ge] The system which generated this result transmitted reference range: 166 - 358 10*3/?L. The reference range was not used to interpret this result as normal/abnormal. MPV (test code = 95392-4) 10.7 fL 9.5-12.9 NRBC/100 WBC (test code = 8891120576) 0.0 See_Comment [Automated [employer] ssage] The system which generated this result transmitted reference range: 0.0 - 10.0 /100 WBCs. The reference range was not used to interpret this result as normal/abnormal. NRBC x10^3 (test code = 1400112261) See_Comment [Automated messa ge] The system which generated this result transmitted reference range: 10*3/?L. The reference range was not used to interpret this result as normal/abnormal. GRAN MAT (NEUT) % (test code = 770-8) 76.9 % IMM GRAN % (test code = 9524167214) 0.20 % LYMPH % (test code = 736-9) 17.2 % MONO % (test code = 5905-5) 4.5 % EOS % (test code = 713-8) 0.7 % BASO % (test code = 706-2) 0.5 % GRAN MAT x10^3(ANC) (test code = 5149908404) 9.46 10*3/uL 1.88-7.09 H IMM GRAN x10^3 (test code = 4343707925) 0.03 10*3/uL 0.00-0.06 LYMPH x10^3 (test code = 731-0) 2.11 10*3/uL 1.32-3.29 MONO x10^3 (test code = 742-7) 0.55 10*3/uL 0.33-0.92 EOS x10^3 (test code = 711-2) 0.08 10*3/uL 0.03-0.39 BASO x10^3 (test code = 704-7) 0.06 10*3/uL 0.01-0.07 Lab Interpretation (test code = 58984-1) Abnormal [facility] WITH [id number] 23:13:22* Test Item Value Reference Range Interpretation [...] 33.3 g/dL 31.6-35.1 RDW-SD (test code = 38058-6) 42.5 fL 39.0-49.9 RDW-CV (test code = 788-0) 12.9 % 12.0-15.5 PLT (test code = 777-3) 364 See_Comment H [Automated messa ge] The system which generated this result transmitted reference range: 166 - 358 10*3/?L. The reference range was not used to interpret this result as normal/abnormal. MPV (test code = 78443-6) 10.7 fL 9.5-12.9 NRBC/100 WBC (test code = 5908730801) 0.0 See_Comment [Automated [employer] ssage] The system which generated this result transmitted reference range: 0.0 - 10.0 /100 WBCs. The reference range was not used to interpret this result as normal/abnormal. NRBC x10^3 (test code = 0516936571) See_Comment [Automated [employer]] The system which generated this result transmitted reference range: 10*3/?L. The reference range was not used to interpret this result as normal/abnormal. GRAN MAT (NEUT) % (test code = 770-8) 76.9 % IMM GRAN % (test code = 4506022760) 0.20 % LYMPH % (test code = 736-9) 17.2 % MONO % (test code = 5905-5) 4.5 % EOS % (test code = 713-8) 0.7 % BASO % (test code = 706-2) 0.5 % GRAN MAT x10^3(ANC) (test code = 9622269136) 9.46 10*3/uL 1.88-7.09 H IMM GRAN x10^3 (test code = 8042868499) 0.03 10*3/uL 0.00-0.06 LYMPH x10^3 (test code = 731-0) 2.11 10*3/uL 1.32-3.29 MONO x10^3 (test code = 742-7) 0.55 10*3/uL 0.33-0.92 EOS x10^3 (test code = 711-2) 0.08 10*3/uL 0.03-0.39 BASO x10^3 (test code = 704-7) 0.06 10*3/uL 0.01-0.07 Lab Interpretation (test code = 38667-3) Abnormal [facility] [id number] 21:00:00* Test Item Value Reference Range Interpretation Comme nts POCT PREG (test code = 1605) Negative On board controls acceptable with C Line (test code = 3574) Yes POCT PREG LOT # (test code = 3575) POCT PREG TEST DATE ( test code = 3576) [facility] [id number] 21:00:00* Test Item Value Reference Range Interpretation Comme nts POCT PREG (test code = 1605) Negative On board controls acceptable with C Line (test code = 3574) Yes POCT PREG LOT # (test code = 3575) POCT PREG TEST DATE ( test code = 3576) [facility]-TELOPEPTIDE, [id number] 18:48:52* Test Item Value Reference Range Interpretation Comme nts NTX SERUM (test code = 65429-3) 12.3 nM BCE INTERPRETIVE INF ORMATION: N-Telopeptide, Cross-Linked, Serum ?Adult Male.......................5.4 - 24.2 nM BCE ?Premenopausal Adult Female.......6.2 - 19.0 nM BCE The target value for treated post-menopausal adult females is the same as the premenopausal reference interval. BCE = Bone Collagen EquivalentPerformed By: [employer] [place] [id number] Director: Jc Albarran MD, PhDCLIA Number: [id number] [facility] TexasN-TELOPEPTIDE, [id number] 18:48:52* Test Item Value Reference Range Interpretation Comme nts NTX SERUM (test code = 16590-0) 12.3 nM BCE INTERPRETIVE INF ORMATION: N-Telopeptide, Cross-Linked, Serum ?Adult Male.......................5.4 - 24.2 nM BCE ?Premenopausal Adult Female.......6.2 - 19.0 nM BCE The target value for treated post-menopausal adult females is the same as the premenopausal reference interval. BCE = Bone Collagen EquivalentPerformed By: [employer] [place] [id number] Director: Jc Albarran MD, PhDCLIA Number: [id number] [facility] TexasINTACT PTH CALCIUM [id number] 20:29:31* Test Item Value Reference Range Interpretation Comme nts PTH-INTACT (test code = 3569634460) 34.9 pg/mL 12.0-88.0 PTH-CA Interpretation (test code = 2449553653) PTH IS Approp[employer] te for Calcium CALCIUM (test code = 5038231442) 9.8 mg/dL 8.6-10.6 [facility] [id number] 20:29:31* Test Item Value Reference Range Interpretation Comme nts PTH-INTACT (test code = 9739509852) 34.9 pg/mL 12.0-88.0 PTH-CA Interpretation (test code = 5707097789) PTH IS [employer]rop[employer] for Calcium CALCIUM (test code = 3580250490) 9.8 mg/dL 8.6-10.6 [facility] Texas[facility]IT[facility] D, [id number] 07:21:15* Test Item Value Reference Range Interpretation Comme nts VIT D 25OH (test code = 20306-1) 14 ng/mL 25-80 L MIKE (test code = MIKE) Deficiency: <20 ng/mLInsufficiency: 20-24 ng/mLOptimal: 25-80 ng/mL Lab Interpretation (test code = 45161-3) Abnormal [facility] D, [id number] 07:21:15* Test Item Value Reference Range Interpretation Comme nts VIT D 25OH (test code = 97613-3) 14 ng/mL 25-80 L MIKE (test code = MIKE) Deficiency: <20 ng/mLInsufficiency: 20-24 ng/mLOptimal: 25-80 ng/mL Lab Interpretation (test code = 88197-2) Abnormal [facility] D, [id number] 07:21:15* Test Item Value Reference Range Interpretation Comme nts VIT D 25OH (test code = 51835-5) 14 ng/mL 25-80 L IMKE (test code = MIKE) Deficiency: <20 ng/mLInsufficiency: 20-24 ng/mLOptimal: 25-80 ng/mL Lab Interpretation (test code = 74499-2) Abnormal [facility] D, [id number] 07:21:15* Test Item Value Reference Range Interpretation Comme nts VIT D 25OH (test code = 94239-2) 14 ng/mL 25-80 L MIKE (test code = MIKE) Deficiency: <20 ng/mLInsufficiency: 20-24 ng/mLOptimal: 25-80 ng/mL Lab Interpretation (test code = 23104-8) Abnormal [facility] TexasALKALINE PHOSPHATASE, [id number] 06:51:12 * Test Item Value Reference Range Interpretation Comme nts ALK PHOS (test code = 0570197468) 224 U/L 34-122 H Lab Interpretation (test cod e = 03156-5) Abnormal [facility] TexasALKALINE PHOSPHATASE, [id number] 06:51:12 * Test Item Value Reference Range Interpretation Comme nts ALK PHOS (test code = 2446371525) 224 U/L 34-122 H Lab Interpretation (test cod e = 64646-4) Abnormal [facility] TexasALKALINE PHOSPHATASE, [id number] 06:51:12 * Test Item Value Reference Range Interpretation Comme nts ALK PHOS (test code = 5992503974) 224 U/L 34-122 H Lab Interpretation (test cod e = 25434-7) Abnormal [facility] TexasALKALINE PHOSPHATASE, [id number] 06:51:12 * Test Item Value Reference Range Interpretation Comme nts ALK PHOS (test code = 2743391019) 224 U/L 34-122 H Lab Interpretation (test cod e = 91464-3) [facility]normal [facility] TexasPO[facility] [id number] 18:43:00* Test Item Value Reference Range Interpretation Comme nts POCT PREG (test code = 1605) Negative On board controls acceptable with C Line (test code = 3574) Yes POCT PREG LOT # (test code = 3575) POCT PREG TEST DATE ( test code = 3576) Lab Interpretation (test cod e = 27534-2) Normal [facility] [id number] 18:43:00* Test Item Value Reference Range Interpretation Comme nts POCT PREG (test code = 1605) Negative On board controls acceptable with C Line (test code = 3574) Yes POCT PREG LOT # (test code = 3575) POCT PREG TEST DATE ( test code = 357) Lab Interpretation (test cod e = 39039-0) Normal [facility] URINALYSIS W SPECIFIC [id number] 18:36:00* Test Item Value Reference Range Interpretation [...] U APPEAR (test code = 3267) CLOUDY [facility] URINALYSIS W SPECIFIC [id number] 18:36:00* Test Item Value Reference Range Interpretation [...] U APPEAR (test code = 3267) CLOUDY [facility] [id number] 13:52:00* Test Item Value Reference Range Interpretation Comme nts POCT PREG (test code = 1605) Negative On board controls acceptable with C Line (test code = 3574) Yes POCT PREG LOT # (test code = 3575) POCT PREG TEST DATE ( test code = 3576) [facility] [id number] 13:52:00* Test Item Value Reference Range Interpretation Comme nts POCT PREG (test code = 1605) Negative On board controls acceptable with C Line (test code = 3574) Yes POCT PREG LOT # (test code = 3575) POCT PREG TEST DATE ( test code = 3576) [facility] [id number] 15:52:00* Test Item Value Reference Range Interpretation Comme nts POCT PREG (test code = 1605) Negative On board controls acceptable with C Line (test code = 3574) Yes POCT PREG LOT # (test code = 3575) POCT PREG TEST DATE ( test code = 3576) [facility] [id number] 15:52:00* Test Item Value Reference Range Interpretation Comme nts POCT PREG (test code = 1605) Negative On board controls acceptable with C Line (test code = 3574) Yes POCT PREG LOT # (test code = 3575) POCT PREG TEST DATE ( test code = 3576) [facility] [id number] 20:30:00* Test Item Value Reference Range Interpretation Comme nts POCT PREG (test code = 1605) Negative On board controls acceptable with C Line (test code = 3574) Yes POCT PREG LOT # (test code = 3575) POCT PREG TEST DATE ( test code = 3576) [facility] [id number] 20:30:00* Test Item Value Reference Range Interpretation Comme nts POCT PREG (test code = 1605) Negative On board controls acceptable with C Line (test code = 3574) Yes POCT PREG LOT # (test code = 3575) POCT PREG TEST DATE ( test code = 3576) [facility] [id number] 16:46:00* Test Item Value Reference Range Interpretation Comme nts POCT PREG (test code = 1605) Negative On board controls acceptable with C Line (test code = 3574) Yes POCT PREG LOT # (test code = 3575) POCT PREG TEST DATE ( test code = 3576) [facility] [id number] 16:46:00* Test Item Value Reference Range Interpretation Comme nts POCT PREG (test code = 1605) Negative On board controls acceptable with C Line (test code = 3574) Yes POCT PREG LOT # (test code = 3575) POCT PREG TEST DATE ( test code = 3576) [facility] WITH [id number] 22:18:20* Test Item Value Reference Range Interpretation [...] g/dL 31.6-35.1 L RDW-SD (test code = 51225-5) 44.1 fL 39-49.9 RDW-CV (test code = 788-0) 14.9 % 12-15.5 PLT (test code = 777-3) See_Comment H [Automated messa ge] The system which generated this result transmitted reference range: 166 - 358 10*3/?L. The reference range was not used to interpret this result as normal/abnormal. MPV (test code = 54033-8) 9.3 fL 9.5-12.9 L NRBC/100 WBC (test code = 6077796003) See_Comment [Automated [employer] ssage] The system which generated this result transmitted reference range: 0.0 - 10.0 /100 WBCs. The reference range was not used to interpret this result as normal/abnormal. NRBC x10^3 (test code = 2163329469) See_Comment [Automated messa ge] The system which generated this result transmitted reference range: 10*3/?L. The reference range was not used to interpret this result as normal/abnormal. GRAN MAT (NEUT) % (test code = 770-8) 74.6 % IMM GRAN % (test code = 5508387022) 0.50 % LYMPH % (test code = 736-9) 18.8 % MONO % (test code = 5905-5) 4.9 % EOS % (test code = 713-8) 0.7 % BASO % (test code = 706-2) 0.5 % GRAN MAT x10^3(ANC) (test code = 1458724440) 9.22 10*3/uL 1.88-7.09 H IMM GRAN x10^3 (test code = 1339669727) 0.06 10*3/uL 0-0.06 LYMPH x10^3 (test code = 731-0) 2.33 10*3/uL 1.32-3.29 MONO x10^3 (test code = 742-7) 0.61 10*3/uL 0.33-0.92 EOS x10^3 (test code = 711-2) 0.09 10*3/uL 0.03-0.39 BASO x10^3 (test code = 704-7) 0.06 10*3/uL 0.01-0.07 Lab Interpretation (test code = 69660-8) Abnormal [facility] [id number] 06:32:55* Test Item Value Reference Range Interpretation Comme nts HEMOGLOBIN A1c (test code = 45520) 7.0 % 4.2-5.6 H [employer] GUIDELINES FOR HGB A1C: [...] CONSULTATION. UNLESS OTHERWISE INDICATED, ALL TESTING PERFORMED [facility] [employer] [facility] [address] [place] [address] SALES REP: WILLY RAMOS M.D. [facility] NUMBER [id number] [facility] [place]. [id number] Consult Notes Date/Time Note Provider Source 2023-12-10 [...] and denies any infections or other issues. [facility] consulted for assistance with medical management. Surgery, Date: 12/09/2023 Procedure(s) (LRB): HYOID SUSPENSION (N/A) UVULOPHARYNGOPALATOPLASY (Bilateral) 3 Hr 4 Min 16 Sec Surgical and Procedural Summary Past Procedures (11/10/2023 to Today) Date Procedure/Visit Type Providers Status 11/12/2023 LARYNGOSCOPYEXAM UNDER ANESTHESIA ORAL CAVITY Laura Martínez (Primary)Pascual Callahan H Discharged 12/09/2023 HYOID SUSPENSIONUVULOPHARYNGOPALATOPLASY Laura Martínez [...] 20 min Stress: Stress Concern Present (12/05/2023) [employer] - Occupational Stress Questionnaire Feeling of Stress : Very much Social Connections: Moderately Integrated (12/05/2023) Social Connection and Isolation Panel [NHANES] Frequency of Communication with Friends and Family: Three times a week Frequency of Social Gatherings with Friends and Family: More than three times a week Attends [employer] Services: More than 4 times per year [...] 19 ORAL) Take by mouth. Doctor Unassigned, [place] semaglutide (OZEMPIC) 1 mg/dose (4 mg/3 mL) PnIj inject 1 mg under the skin weekly. 10/21/23 Tian Caro MD propranoloL 10 mg tablet Take 1 tablet by mouth at bedtime. 09/22/23 09/21/24 Blake Pelletier MD Cholecalciferol, Vitamin D3, (VITAMIN D3) 50 mcg (2,000 unit) tablet Take 1 tablet by mouth in the morning. 07/23/23 Obey Cage, NAVAL AIRCREWMAN OPERATOR-BC DNP hydrOXYzine 25 mg tablet Take 1 tablet by mouth every 6 (six) hours as needed for Itching. 05/19/22 Nishant Chapman MD ketoconazole 2 % cream Apply to area(s) 2 (two) times daily. 05/19/22 Nishant Chapman MD triamcinolone acetonide 0.1 % cream Apply to area(s) 2 (two) times daily. 05/19/22 Nishant Chapman MD ferrous sulfate (IRON ORAL) Take by mouth. Doctor Unassigned, [place] chlorhexidine 0.12 % mouthwash 10/02/20 Doctor Unassigned, [place] Current Medications: Scheduled meds:insulin lispro (human), , [...] intake Lyle Hooker MD, Surgical Co-Management Hospitalist Pet Training Instructor General Internal Medicine Portions of this note [...] Ordering referrals and/or communicating with other health child care center administrator (when not separately reported), Documenting clinical information in the electronic or other health record, Independently interpreting results (not separately reported) and/or communicating results to the patient/family/caregiver, and Care coordination (not separately reported). I spent approx 76 minutes. 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 Patient is s/p STEPHANIE, HS on 12/11/23 for moderate FAWN. Patient reports improvement in sleep with occasional snoring. She had an episode of blood tinged saliva and presented to [facility] ED and was DC without incident. Histories [...] DDS; Location: [facility] LARYNGOSCOPY (X) N/A 11/12/2023 Surgeon: Laura Martínez DDS; Location: [facility] UVULOPHARYNGOPALATOPLASY Bilateral 12/09/2023 Surgeon: Laura Martínez DDS; Location: [facility] Family History Problem Relation Age [...] 0 min Stress: Stress Concern Present (12/05/2023) [employer] - Occupational Stress Questionnaire Feeling of Stress : Very much Social Connections: Moderately Integrated (12/10/2023) Social Connection and Isolation Panel [NHANES] Frequency of Communication with Friends and Family: More than three times a week Frequency of Social Gatherings with Friends and Family: More than three times a week Attends [employer] Services: More than 4 times per year [...] soft tissues are identified. 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 Patient is s/p STEPHANIE, HS on 12/11/23 [...] Reconstruction Department of Surgery | Division of road conductor [facility] 2023-12-09 07:21:07 road conductor Clinic note Chief Complaint: FAWN HPI Rosanne Resendiz is a 28 year old female presenting for FAWN evaluation. She has tried CPAP but cannot tolerate it. She is interested in surgical intervention. Interval HPI 12/09/23 Patient presents to [facility] for her scheduled procedure. Denies any [...] N/A 11/12/2023 Surgeon: Laura Martínez DDS; Location: [facility] FOOT ORIF (SHX) LARYNGOSCOPY (SHX) N/A 11/12/2023 Surgeon: Laura Martínez DDS; Location: [facility] Family History Problem Relation Age of Onset [...] 20 min Stress: Stress Concern Present (12/05/2023) [employer] - Occupational Stress Questionnaire Feeling of Stress : Very much Social Connections: Moderately Integrated (12/05/2023) Social Connection and Isolation Panel [NHANES] Frequency of Communication with Friends and Family: Three times a week Frequency of Social Gatherings with Friends and Family: More than three times a week Attends [employer] Services: More than 4 times per year [...] see the Resident's note for additional details. DEN-MATERIAL MANAGER (DENTIST ONLY) [facility] 2023-12-04 15:00:00 road conductor Clinic note Chief Complaint: FAWN HPI Rosanne [...] 20 min Stress: Stress Concern Present (12/05/2023) [employer] - Occupational Stress Questionnaire Feeling of Stress : Very much Social Connections: Moderately Integrated (12/05/2023) Social Connection and Isolation Panel [NHANES] Frequency of Communication with Friends and Family: Three times a week Frequency of Social Gatherings with Friends and Family: More than three times a week Attends Mormon Services: More than 4 times per year [...] of obstruction DIAGNOSES Severe FAWN Assessment/Plan Rosanne Resnediz is a 28 year old female with [...] Reconstruction Department of Surgery | Division of road conductor [facility] 2023-11-12 06:14:50 road conductor H&P Chief Complaint: FAWN HPI Rosanne Resendiz [...] see the Resident's note for additional details. [facility] 2023-10-23 14:00:00 road conductor Clinic note Chief Complaint: FAWN HPI Rosanne [...] Reconstruction Department of Surgery | Division of road conductor [facility] Notes Date/Time Note Provider Source 2024-02-22 17:21:25 Contacted patient to receive more information, patient stated that this has already been taken care of and they have received paperwork. Patient advised to give clinic another call if she has any more trouble. [facility] 2024-02-19 13:02:18 I do not have an order form for this -Susan please verify INSPECTOR FINAL ASSEMBLY MECHANICAL-FAMILY MIDLEVEL PROVIDER [facility] 2024-02-17 13:35:33 Will retrieve paperwork and complete form. Lulu Parsons MA [facility] 2024-02-17 11:30:07 Images from the original note were not included. Sivakumar Neville [facility] 2024-02-17 08:53:03 Please review and send in order if appropriate [facility] 2024-02-16 17:11:00 Regardin+ blood sugar ----- Message from Shraddha Vera sent at 02/16/2024 5:09 PM CDT ----- Pt states blood sugar has been out of control. Pt states she checked this morning and it was over 300. Placed TE to clinic she has been waiting since the for her omnipod orders. No other symptoms but being tired. Katie Ibarra RN [facility] 2024-02-16 17:11:00 Nurse's Note: 5:12 PM [...] row Protocols used: Diabetes - High Blood [id number] Disposition: After assessment and triage, patient advised to see provider within 4 hours and directed to the ED for evaluation. Follow up appointment scheduled on 02/18/24 at 0930 at PCP clinic. Patient agreed to disposition. Katie Ibarra RN 02/16/2024 5:27 PM [facility] 2024-02-16 16:57:46 Rosanne Resendiz is a 28 [...] of control. Please advise and contact pt [phone] (home) Shraddha Vera [facility] 2024-02-01 10:11:50 Received order form from [facility] pharmacy requestin Omnipod Dash, provider signature required, placed in providers box for review. Cecille Paez [facility] 2024-01-29 09:41:[address] [facility]/ [facility] and relayed the information per Kelly Reynaga DNP. She stated that she would make a note. Lara Simmons RN [facility] 2024-01-28 17:37:45 Did she maybe discus this with Nicky at recent visit- she did not see me last and we have not discussed this. INSPECTOR FINAL ASSEMBLY MECHANICAL-FAMILY MIDLEVEL PROVIDER [facility] 2024-01-28 11:04:00 [place] / [facility] calling to check the status of the order. Please Advise. Janis Peralta [facility] 2024-01-27 15:55:03 Please review and advise. LOS 01/14/24 NOV 06/17/24 Monica Fernando LVN [facility] 2024-01-27 15:39:37 Rosanne Resendiz is a 28 year old female and Eliza with [facility] is calling asking if a verbal prescription order can be given for the pt. Che had faxed over forms for the order on 01/04/24 as well. Pt is asking to order the Omnipod Dash a insulin controller. Nisha Whiting [facility] 2024-01-25 07:05:53 PA not required: The Community and State Medicaid Prior Authorization Team is not able to review this request because the brand name for the requested product is preferred on the formulary and is covered without prior authorization requirements. Patient notified of outcome and encouraged to contact pharmacy to provide an update. Monica Fernando POOL HAND [facility] 2024-01-18 12:29:19 PA initiated on 01/18/2024: Barillas: [id number] PA Will provide updates as recd Monica Fernando POOL HAND [facility] 2024-01-15 14:16:34 Images from the original note were not included. Receive PA [place] Code below and have placed in provider's box. Ni Dietz [facility] 2024-01-14 13:15:00 Images from the original note were not included. Venipuncture collection performed by clean technique on the right anticubitus. Total of 1 attempts were made. Slight pressure and a bandage/dressing were applied to the site(s). The patient experienced no complications. The following specimens were processed according to instructions and sent to [facility] laboratories per lab order on 01/14/2024 : LT BLUE SST 1 RED LAV 2 PPT DK GREEN (LiHep) DK GREEN (SodH) GARY DK BLUE (K2) DK BLUE (S) ACD Blood Culture NIPT/NTD Patient has been identified by and name and was provided with cup, antiseptic towelette, and clean catch instructions. 1 urine specimen(s) sent. Unpreserved 1 Urine Culture Aptima tube Other urine [facility] 2024-01-13 16:24:00 Patient in clinic with c/o hyperglycemia and requesting to change DM medication. She stated going to the ER on 12/18 for vomiting blood and per self has since stopped using Ozempic. No distress noted. Patient A&OX3. POCT glucose collected and 183. BP 120/83 HR 101 SPO2 97% RR 18. ER F/U scheduled for 01/13 with Nicky Peck. Monica Fernando LVN [facility] 2023-12-19 12:28:31 Rosanne Resendiz is a 28 year old female is calling to inform the clinic that she was in the ER yesterday for vomiting blood. Kamilla Ryder 12/19/2023 12:29 PM Kamilla Ryder [facility] 2023-12-19 07:09:41 Pt and mother given [...] in no apparent distress Scarlett Stone RN [facility] 2023-12-19 03:32:41 CC: Pt reports surgery [...] difficulty, amb with steady gait See [facility] for surgery notes Celina Mills RN [facility] 2023-12-17 11:44:06 Endocrine provider will be retiring. Pt able to transfer back to PCP for diabetes management. 6 month refill of diabetic medication sent into pharmacy. T [facility] 2023-12-11 13:40:00 Patient left unit via wheelchair accompanied by her parents and with all her belongings. EENT Betty Brown RN [facility] 2023-12-11 11:26:05 Patient and parents given discharge instructions. They all verbalized understanding. Iv catheter removed, no bleeding noted and tip noted to be intact. O2 monitoring machine disconnected and removed from the room. [facility] 2023-12-11 08:34:56 Problem: Pain Goal: Control of [...] Goal: Patent airway Outcome: Progressing as expected [facility] 2023-12-10 20:56:46 Problem: Pain Goal: Control of [...] Patent airway Outcome: Progressing as expected [facility] Adán Chew RN [facility] 2023-12-10 17:43:08 Problem: Pain Goal: Control of pain at or below patient's documented comfort goal Outcome: Progressing as expected Problem: Bleeding, Risk of Goal: Absence of impaired coagulation signs and symptoms Outcome: Progressing as expected [facility] 2023-12-10 01:24:16 Problem: Pain Goal: Control of [...] Outcome: Progressing as expected Citlalli Porter RN [facility] 2023-12-07 16:30:00 Collection is to far in the future to be collected.Candelaria Forte 12/07/2023 4:14 PM [facility] 2023-11-26 14:30:00 Images from the original note were not included. Venipuncture collection performed by clean technique on the left anticubitus. Total of 1 attempts were made. Slight pressure and a bandage/dressing were applied to the site(s). The patient experienced no complications. The following specimens were processed according to instructions and sent to [facility] laboratories per lab order on 11/26/2023: LT BLUE SST 2 RED 1 LAV PPT DK GREEN (LiHep) DK GREEN (SodH) GARY DK BLUE (K2) DK BLUE (S) ACD Blood Culture NIPT/NTD [facility] 2023-10-21 16:44:49 Reminded Rosanne Resendiz of upcoming appointment scheduled for 10/23/23 at 2 pm. Patient verbalized understanding. Keeley Schilling [facility] 2023-10-19 08:00:00 Images from the original note were not included. Venipuncture collection performed by clean technique on the left anticubitus. Total of 1 attempts were made. Slight pressure and a bandage/dressing were applied to the site(s). The patient experienced no complications. The following specimens were processed according to instructions and sent to [facility] laboratories per lab order on 10/19/2023 : LT BLUE SST 2 RED LAV 1 PPT DK GREEN (LiHep) DK GREEN (SodH) GARY DK BLUE (K2) DK BLUE (S) ACD Blood Culture NIPT/NTD [facility] 2023-10-05 13:45:00 Orders for Marley Camarillo MD only [facility] 2023-09-15 15:13:45 Patient came by clinic and monitor was reapplied. Kayy Gaffney RN [facility] 2023-09-15 08:07:59 Copied from [facility] #[id number]. Topic: Clinical - Medical Advice >> Sep 15, 2023 8:07 AM Patient Side Panel Hanger wrote: Rosanne Resendiz is a 27 year old female is calling and states a wire fell off of her chest. [phone] (home) Warm transferred to clinic nurse Yasmin Ibarra [facility] 2023-09-14 08:30:00 48 hour holter (SEER 1000, #1) applied to patient, tolerated well. Wear, care, diary entry and monitor return teaching given, understanding verbalized. Monitor to be returned on Thu by 1111am, return letter acknowledged and signed. Angélica Bryant MA [facility] 2023-09-11 12:15:00 Images from the original note were not included. Venipuncture collection performed by clean technique on the right anticubitus. Total of 1 attempts were made. Slight pressure and a bandage/dressing were applied to the site(s). The patient experienced no complications. The following specimens were processed according to instructions and sent to [facility] laboratories per lab order on today: LT BLUE SST 1 RED LAV PPT DK GREEN (LiHep) DK GREEN (SodH) GARY DK BLUE (K2) DK BLUE (S) ACD Blood Culture NIPT/NTD [facility] 2023-08-10 09:01:15 Testing brought in by patient. Scanned into ADC folder. Pending upload to M[employer]dot. Placed in Dr. Henderson's ADC inbox folder for review. DISPLAYS ANALYST Angélica Bryant MA [facility] 2023-08-04 14:10:20 Paperwork located. Kelly Reynaga DNP reviewed and declined signature. She states Patient does not qualify. Called [employer] and relayed the information to Blu. She voiced understanding. Simmons RN [facility] 2023-08-04 11:24:07 Can you please look for this, I am not back in office until Thursday. Thank you. DISPLAYS ANALYST [facility] 2023-08-04 08:33:37 Copied from [facility] #[id number]. Topic: Clinical - Order >> Aug 04, 2023 8:30 AM MyChart Team wrote: Shraddha from [facility] [employer] called to see if clinic received order for Continuous Glu close Monitor faxed over 08/03 just verifying order Please advise DISPLAYS ANALYST Tatianna Avina [facility] 2023-07-30 15:27:23 Images from the original note were not included. Notes: 06/25/23 Last Refilled: [facility] [id number] - [place], [place] - [facility] [address] POCT HBA1C (%) Date [...] Fam Med 09/08/22 Office Visit Kelly Reynaga NAVAL AIRCREWMAN OPERATOR [facility] 08/08/22 Office Visit Kelly Reynaga FNP [facility] 06/27/22 Office Visit Kelly Reynaga NAVAL AIRCREWMAN OPERATOR [facility] 04/11/22 Office Visit Kelly Reyngaa NAVAL AIRCREWMAN OPERATOR [facility] Showing recent visits [...] month ago (06/25/2023) by GRACIELA Rice Off-Protocol Nicynn8907/30/2023 02:24 PM Protocol Details Medication not assigned to a protocol, forward to provider. Valid encounter within last 12 months To be filled at: [facility] [id number] [facility] 2023-07-15 08:33:15 LOS-04/21/23 NOV-07/23/23 Called pharmacy and spoke with pharmacy staff. They state pt has no refills. Vitamin D last checked 04/21/23. Ok to refill ergocalciferol, vitamin d2, 1,250 mcg (50,000 unit) capsule. Please send if appropriate. Thank you. Marely Raza RN [facility] 2023-07-15 08:29:47 Rosanne Resendiz is a 27 year old female Patient is calling in regards to the ergocalciferol, vitamin d2, 1,250 mcg (50,000 unit) capsule , mentions refill was denied due for being to soon. Pt has contacted pharmacy and their is no additional refills on file, but will try to reach out again. [facility] Baylee Ahmadi [facility] 2023-07-13 08:32:33 Images from the original note were not included. [facility] Nelly Fisher [facility] 2023-07-10 19:47:08 Rosanne Resendiz is a 27 year old female Patient is calling to request a refill on RX ergocalciferol, vitamin d2, 1,250 mcg (50,000 unit) capsule - states pharmacy needs a new script - please be advised [facility] [id number] [facility] 2023-06-25 10:36:10 Last Refilled: Disp Refills Start End FADI semaglutide (OZEMPIC) 1 mg/dose (4 mg/3 mL) PnIj 3 Pen 1 05/22/2023 -- -- Sig: inject 1 mg under the skin weekly. Sent to pharmacy as: Ozempic 1 mg/dose (4 mg/3 mL) subcutaneous pen injector (semaglutide) Class: eRX Route: Subcutaneous Order: [id number] Date/Time Signed: 05/22/2023 11:51 Notes: Recent Visits Date Type Provider Dept 06/17/23 Office Visit Nicky Peck PA [facility] 05/15/23 Office Visit Nicky Peck PA [facility] 03/26/23 Office Visit Kelly Reynaga, NAVAL AIRCREWMAN OPERATOR [facility] 12/24/22 Office Visit Nicky Peck PA [facility] 11/12/22 Office Visit Nicky Peck PA [facility] 09/08/22 Office Visit Kelly Reynaga, NAVAL [employer]CRE[employer] OPERATOR [facility] 08/08/22 Office Visit Kelly Reynaga, [employer]CREW[employer] OPERATOR [facility] 06/27/22 Office Visit Kelly Reynaga, NAVAL [employer]CREWMAN OPERATOR [facility] 04/11/22 Office Visit Kelly Reynaga, NAVAL AIRCREWMAN OPERATOR [facility] 02/07/22 Office Visit Kelly Reynaga, NAVAL AIRCREWMAN OPERATOR [facility] Showing recent visits within past 540 days with a meds authorizing provider and meeting all other requirements Future Appointments No visits were found meeting these conditions. Showing future appointments within next 150 days with a meds authorizing provider and meeting all other requirements Simmons RN [facility] 2023-06-17 17:00:00 Images from the original note were not included. Patient has been identified by name and was provided with cup, antiseptic towelette, and clean catch instructions. 1 urine specimen(s) sent. Unpreserved Urine Culture 1 Aptima tube Other urine [facility] 2023-06-17 09:19:49 Patient has appointment today 06/17/23. Will address in clinic. Mirtha Bowman LVN 06/17/2023 9:20 AM [facility] 2023-06-12 16:57:47 Rosanne Resendiz is a 27 year old female is returning a call she missed from the clinic in regards to EKG results. Please advise. [phone] Broussard [facility] 2023-06-12 16:53:14 Attempted to reach patient , no answer left V/M Ho MA [facility] 2023-06-12 16:50:02 Looks like she was checked in 06/10/23 at the hospital for the EKG No results in chart [facility] 2023-06-12 13:14:56 I do not see EKG results either. Perhaps she completed with an external provider? DISPLAYS ANALYST ESTRELLA-PHYSICIAN SHUT OFF WORKER MIDLEVEL PROVIDER [facility] 2023-06-12 12:33:32 Please review and advise. Did not see any EKG results in chart. DISPLAYS ANALYST Katie Elizabeth RN [facility] 2023-06-11 16:29:14 Rosanne Resendiz is a 27 year old female patient is requesting a call from the clinic in regards to EKG results. Please advise. [phone] Broussard [facility] 2023-02-10 08:57:57 Formatting of this n ote might be different from the original. Labs re-printed and faxed to [phone] [facility] 2023-02-05 09:42:45 Formatting of this n ote might be different from the original. Ana María from [facility] called, requesting lab results re faxed , she she stated it got deleted by mistake. . Kiesha Katz [facility] 2023-02-04 14:35:27 Formatting of this n ote might be different from the original. 3rd attempt to reach patent. Closing encounter. Mirtha Bowman LVN 02/04/2023 2:35 PM [facility] 2023-02-03 16:04:46 Formatting of this n ote might be different from the original. Attempted to contact patient. No answer. Left message to call back. [facility] 2023-02-03 14:57:21 Formatting of this n ote might be different from the original. Patient is requesting a call back regarding results. Diane Ruiz Harmeet [facility] 2023-02-02 17:03:43 Formatting of this n ote might be different from the original. Rosanne Resendiz is a 27 year old female Patient is returning a missed call in regards to lab results. Please advise [phone] (home) Brenda Montano Ezequiel [facility] 2023-02-02 14:24:53 Formatting of this n ote might be different from the original. Attempted to contact patient. No answer. Left message to call back. Mirtha Bowman LVN 02/02/2023 2:25 PM [facility] 2023-02-02 13:14:29 Formatting of this n ote might be different from the original. Patient would like a nurse to call her regarding her lab results. Loan Huddleston [facility] 2023-01-26 14:14:51 Formatting of this n [...] months To be filled at: [facility] [id number] [address] Recent Visits Date Type Provider Dept 12/24/22 Office Visit Nicky Peck PA [facility] 11/12/22 Office Visit Nicky Peck PA [facility] 09/08/22 Office Visit Kelly Reynaga, NAVAL AIRCREWMAN OPERATOR [facility] 08/08/22 Office Visit AneSathya herrona, NAV[employer]CREWMAN OPERATOR [facility] 06/27/22 Office Visit Anegermaine Kelly, NAVAL AIRCREWMAN OPERATOR [facility] 04/11/22 Office Visit AneStephenie herronthia, NAVAL AIRCREWMAN OPERATOR [facility] 02/07/22 Office Visit AneSathya herrona, NAVAL AIRCREWMAN OPERATOR [facility] 01/17/22 Office Visit AneSathya herrona, NAVAL AIRCREWMAN OPERATOR [facility] 12/24/21 Office Visit AneKelly herron, NAVAL AIRCREWMAN OPERATOR [facility] 11/05/21 Office Visit Nj Bullock MD [facility] Showing recent visits within past 540 days with a meds authorizing provider and meeting all other requirements Future Appointments No visits were found meeting these conditions. Showing future appointments within next 150 days with a meds authorizing provider and meeting all other requirements T [facility] [email or web address] 2023-01-26 07:44:09 Formatting of this n ote might be different from the original. Pt is checking the status. T [facility] [email or web address] 2023-01-24 21:24:28 Formatting of this n ote might be different from the original. Rosanne Resendiz is a 27 year old female that is requesting refills of ozympic. [facility] [id number] - [address] [place] [address] Please advise. Keisha Harvey [facility] 2023-01-07 14:00:00 Formatting of this n ote is different from the original. Images from the original note were not included. Venipuncture collection performed by clean technique on the left anticubitus. Total of 1 attempts were made. Slight pressure and a bandage/dressing were applied to the site(s). The patient experienced no complications. The following specimens were processed according to instructions and sent to [facility] laboratories per lab order on 01/07/2023 LT BLUE SST 3 RED LAV PPT DK GREEN (LiHep) DK GREEN (SodH) GARY DK BLUE (K2) DK BLUE (S) ACD Blood Culture NIPT/NTD [facility] 2022-12-24 14:30:00 Formatting of this n ote is different from the original. Images from the original note were not included. Venipuncture collection performed by clean technique on the right anticubitus. Total of 1 attempts were made. Slight pressure and a bandage/dressing were applied to the site(s). The patient experienced no complications. The following specimens were processed according to instructions and sent to [facility] laboratories per lab order on 12/24/2022 LT BLUE SST 1 RED LAV PPT DK GREEN (LiHep) DK GREEN (SodH) GARY DK BLUE (K2) DK BLUE (S) ACD Blood Culture NIPT/NTD [facility]
--- NOTE | 2024-04-16 00:49 | ER ---
Nurse's Notes [facility] Name: Rosanne Sparks Age: 28 yrs Sex: Female : 1995 Arrival Date: 04/16/2024 Time: 00:19 Bed DX4 Private MD: Diagnosis: Dentalgia Presentation: 04/16 00:42 Chief complaint: Patient states: right sided tooth ache top and bottom. took lg3 antibiotics the last time i was here. Coronavirus screen: Client denies travel out of the [place] in the last 14 days. At this time, the client does not indicate any symptoms associated with coronavirus-19. Ebola Screen: No symptoms or risks identified at this time. Initial Sepsis Screen: Does the patient meet any 2 criteria? No. Patient's initial sepsis screen is negative. Does the patient have a suspected source of infection? No. Patient's initial sepsis screen is negative. Risk Assessment: Do you want to hurt yourself or someone else? Patient reports no desire to harm self or others. Onset of symptoms is unknown. 00:42 Method Of Arrival: Ambulatory lg3 00:42 Acuity: GARRY 5 lg3 Triage Assessment: 00:43 General: Appears in no apparent distress. comfortable, Behavior is calm, cooperative. lg3 Pain: Complains of pain in mouth. EENT: Reports pain in mouth. Neuro: No deficits noted. Escoto Agitation-Sedation Scale (RASS): 0 - Alert and Calm Level of Consciousness is awake, alert, obeys commands, Oriented to person, place, time, situation. Cardiovascular: No deficits noted. Denies chest pain, shortness of breath, Capillary refill < 3 seconds Clubbing of nail beds is absent JVD is absent Patient's skin is warm and dry. Respiratory: No deficits noted. Airway is patent Respiratory effort is even, unlabored, Respiratory pattern is regular, symmetrical. GI: No deficits noted. No signs and/or symptoms were reported involving the gastrointestinal system. : No signs and/or symptoms were reported regarding the genitourinary system. Derm: No deficits noted. Skin is intact, is healthy with good turgor, Skin is dry, Skin is normal, Skin temperature is warm. Musculoskeletal: No deficits noted. No signs and/or symptoms reported regarding the musculoskeletal system. Circulation, motion, and sensation intact. Range of motion: intact in all extremities. 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 - Infectious Disease History:: Denies. - Social history:: Smoking status: Patient denies any tobacco usage or history of. Patient uses alcohol, weekly. Patient/guardian denies using street drugs. Screenin:45 [facility] ED Fall Risk Assessment (Adult) History of falling in the last 3 months, lg3 including since admission No falls in past 3 months (0 pts) Confusion or Disorientation No (0 pts) Intoxicated or Sedated No (0 pts) Impaired Gait No (0 pts) Mobility Assist Device Used No (0 pt) Altered Elimination No (0 pt) Score/Fall Risk Level 0 - 2 = Low Risk Oriented to surroundings, Maintained a safe environment, Educated pt \T\ family on fall prevention, incl call for assistance when getting out of bed, Assessed \T\ reinforced patient's understanding of fall precautions. Abuse screen: Denies threats or abuse. Denies injuries from another. Nutritional screening: No deficits noted. Tuberculosis screening: No symptoms or risk factors identified. Assessment: 00:45 General: see triage assessment. lg3 Vital Signs: 00:42 BP 131 / 85; Pulse 101; Resp 17 S; Temp 98.7(O); Pulse Ox 98% on R/A; Weight 95.71 kg lg3 (R); Height 5 ft. 0 in. (R); 00:42 Body Mass Index 41.21 (95.71 kg, 152.4 cm) lg3 ED Course: 00:19 Patient arrived in ED. jj6 00:24 Red Steen MD is Attending Physician. ec2 00:43 Triage completed. lg3 00:43 Arm band placed on right wrist. lg3 01:10 Patient has correct armband on for positive identification. lg3 01:10 No provider procedures requiring assistance completed. Patient did not have IV access lg3 during this emergency room visit. Administered Medications: 01:05 Drug: HYDROcodone-acetaminophen PO 5 mg-325 mg 1 tabs PO once Route: PO; lg3 01:06 Follow up: Response: No adverse reaction; Medication administered at discharge. lg3 01:05 Drug: Acetaminophen PO 650 mg PO once Route: PO; lg3 01:06 Follow up: Response: No adverse reaction lg3 01:05 Drug: Viscous Lidocaine Mucous Membrane Liquid (4 %) 10 ml Mucous Membrane once Route: lg3 Mucous Membrane; 01:06 Follow up: Response: No adverse reaction lg3 01:05 Drug: Amoxicillin-Clavulanate PO 875 mg PO once Route: PO; lg3 01:06 Follow up: Response: No adverse reaction lg3 01:06 Drug: Ketorolac IM 30 mg IM once Route: IM; Site: left deltoid; lg3 01:10 Follow up: Response: No adverse reaction; Medication Administered at Departure lg3 Medication: 00:45 VIS not applicable for this client. lg3 Outcome: 00:49 Discharge ordered by . ec2 01:10 Discharged to home ambulatory, lg3 01:10 Condition: stable 01:10 Discharge instructions given to patient, Instructed on discharge instructions, follow up and referral plans. medication usage, Demonstrated understanding of instructions, follow-up care, medications, Prescriptions given X 2, 01:10 Patient left the ED. lg3 Signatures: Sandra Gomez RN RN lg3 Jacey Jean Baptistej6 Red Steen MD MD ec2
--- NOTE | 2024-04-16 00:49 | EDPHYS ---
Physician Documentation [facility] Name: Rosanne Sparks Age: 28 yrs Sex: Female : 1995 Arrival Date: 04/16/2024 Time: 00:19 Bed DX4 Private MD: ED Physician Red Steen HPI: 04/16 00:53 This 28 yrs old Female presents to ER via Ambulatory with complaints of ec2 Toothache. 00:53 Patient arrives today for evaluation of dentalgia. Patient reports right upper dental ec2 pain. States that the symptoms improved with recent antibiotic coverage as well as her pain medications. No fevers or chills, no nausea or vomiting.. 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 - Infectious Disease History:: Denies. - Social history:: Smoking status: Patient denies any tobacco usage or history of. Patient uses alcohol, weekly. Patient/guardian denies using street drugs. ROS: 00:53 Constitutional: as per hpi ec2 Exam: 00:53 Constitutional: GEN: NAD Head: atraumatic Eyes: EOMI Ears: External ears are normal. ec2 Mouth: Dental caries noted throughout. Tender to palpation in the right upper. No overlying erythema, no facial swelling. CV: regular rate LUNGS: no respiratory distress ABD: non-distended SKIN: no evidence of rashes MSK: no evidence of trauma Vital Signs: 00:42 BP 131 / 85; Pulse 101; Resp 17 S; Temp 98.7(O); Pulse Ox 98% on R/A; Weight 95.71 kg lg3 (R); Height 5 ft. 0 in. (R); 00:42 Body Mass Index 41.21 (95.71 kg, 152.4 cm) lg3 MDM: 00:44 Medical Screening Exam initiated ec2 00:53 Data reviewed: vital signs. ED course: Patient arrives today for dental pain. ec2 Examination remarkable for HEENT findings as above. Will start the patient on Augmentin again and start the patient on pain medication. Will discharge home. Return precautions given.. Administered Medications: 01:05 Drug: HYDROcodone-acetaminophen PO 5 mg-325 mg 1 tabs PO once Route: PO; lg3 01:06 Follow up: Response: No adverse reaction; Medication administered at discharge. lg3 01:05 Drug: Acetaminophen PO 650 mg PO once Route: PO; lg3 01:06 Follow up: Response: No adverse reaction lg3 01:05 Drug: Viscous Lidocaine Mucous Membrane Liquid (4 %) 10 ml Mucous Membrane once Route: lg3 Mucous Membrane; 01:06 Follow up: Response: No adverse reaction lg3 01:05 Drug: Amoxicillin-Clavulanate PO 875 mg PO once Route: PO; lg3 01:06 Follow up: Response: No adverse reaction lg3 01:06 Drug: Ketorolac IM 30 mg IM once Route: IM; Site: left deltoid; lg3 01:10 Follow up: Response: No adverse reaction; Medication Administered at Departure lg3 Disposition Summary: 04/16/24 00:49 Discharge Ordered Notes: Location: Home ec2 Condition: Stable ec2 Diagnosis - Dentalgia ec2 Followup: ec2 - With: Private Physician - When: - Reason: Re-evaluation by your physician Discharge Instructions: - Discharge Summary Sheet ec2 - Dental Pain, [id number] ec2 Forms: - Medication Reconciliation Form ec2 - Antibiotic Education ec2 - Prescription Opioid Use ec2 - Patient Portal Instructions ec2 - Leadership Thank You Letter ec2 Prescriptions: - acetaminophen-codeine 300-30 mg Oral tablet - take 1 tablet ORAL route every 4 hours; 20 tablet; Refills: 0, Product ec2 Selection Permitted - Augmentin 875-125 mg Oral Tablet - take 1 tablet ORAL route every 12 hours for 10 days; 20 tablet; Refills: 0, ec2 Product Selection Permitted Signatures: Sandra Gomez RN RN lg3 Red Steen MD MD ec2
[2024-04-16] MEDS ORDERED: AMOX/K CLAV 875 MG TAB ONE (01:02)
[2024-04-16] MEDS ORDERED: LIDOCAINE VISCOUS 2% 10ML ORAL SOLN ONE (01:03)
[2024-04-16] MEDS ORDERED: ACETAMINOPHEN 325 MG TABLET ONE (01:03)
[2024-04-16] MEDS ORDERED: HYDROCODONE/APAP 5/325 MG TAB ONE (01:03)
[2024-04-16] MEDS ORDERED: KETOROLAC 30 MG/ML INJ ONE (01:03)
[2024-04-16 01:15] VITALS: BP 131/85; TEMP 98.7; O2SAT 98
== END 2024-04-16 01:10 | disposition home or self-care (01) ==
LOC: ER 00:19
DX: K08.89 Other specified disorders of teeth and supporting structures (principal)
CPT/HCPCS: 96372; 99284

== ENCOUNTER 2024-08-23 16:34 | Emergency (ER) | payer OTHER ==
[2024-08-23 18:24] LABS: Absolute Lymphocytes (CBC) 0.6 K/uL (0.7-4.9); Absolute Monocytes 0.4 K/uL (0.1-1.3); Absolute Neutrophil 12.1 K/uL (1.8-8.0); Basophils % 0.3 % (0-1.3); Eosinophils % 0.3 % (0-4.4); Hematocrit 43.5 % (36.0-45.0); Hemoglobin 15.2 g/dL (12.0-15.0); Lymphocytes % 4.6 % (15.3-44.8); MCH 30.9 pg (27.0-35.0); MCHC 34.9 g/dL (32.0-36.0); MCV 88.5 fL (80-100); MPV 8.4 fL (7.6-11.3); Monocytes % 3.3 % (3.3-12.3); Neutrophils % 91.5 % (41.7-73.7); Nucleated Red Blood Cells % 0.1 % (0-0); Platelets 320 thou/uL (152-406); RBC Red Blood Cell Count 4.91 M/uL (3.86-4.86); Red Cell Distribution Width 13.8 % (12.1-15.2)
[2024-08-23] MEDS ORDERED: FAMOTIDINE 20 MG/2 ML VIAL IV ONE (18:24)
[2024-08-23] MEDS ORDERED: KETOROLAC 30 MG/ML INJ ONE (18:24)
[2024-08-23] MEDS ORDERED: ONDANSETRON 4 MG/2 ML VIAL ONE (18:24)
[2024-08-23] MEDS ORDERED: NA CHLORIDE 0.9% 1,000 ML ONE (18:25)
[2024-08-23 18:34] LABS: ALT/SGPT 28 U/L (13-56); Albumin/Globulin Ratio 0.6 (1.1-1.8); Alkaline Phosphatase 204 U/L (45-117); Anion Gap 9.4 mEq/L (5.0-15.0); BUN Blood Urea Nitrogen 9 mg/dL (7-18); Bicarbonate 25 mEq/L (21-32); Bilirubin Total 0.6 mg/dL (0.2-1.0); Globulin 4.7 g/dL (2.3-3.5); Glomerular Filtration Rate 117 ml/min (=/>90); Glucose Level 177 mg/dL (74-106); Lipase 12 U/L (13-75); Potassium 3.4 mEq/L (3.5-5.1); Protein, Total 7.7 g/dL (6.4-8.2); Sodium Level 138 mEq/L (136-145)
[2024-08-23 18:52] LABS: AST/SGOT < 10 U/L (15-37)
[2024-08-23 18:57] LABS: Specific Gravity > 1.030 (1.005-1.030); Urine Bacteria <20 /HPF (<20); Urine Bilirubin NEGATIVE (Negative); Urine Blood 1+ (Negative); Urine Clarity Extremely Turbid (Clear); Urine Color Light-Orange (Yellow); Urine Crystals Unidentified Few /HPF (None Seen); Urine Culture Reflex Order REFLEXED; Urine Glucose NEGATIVE (Negative); Urine Ketones NEGATIVE (Negative); Urine Microscopic Reflex YN ORDER UMIC; Urine Mucus 2+ /HPF (None Seen); Urine Nitrite NEGATIVE (Negative); Urine Protein 1+ (Negative); Urine Urobilinogen Normal (Normal); Urine WBC >50 /HPF (<5)
[2024-08-23 18:58] LABS: Specific Gravity > 1.030 (1.005-1.030)
[2024-08-23 19:15] LABS: Influenza A Ag Negative; Influenza B Ag Negative; SARS-CoV-2 Antigen Rapid Res Negative (Negative)
[2024-08-23 19:52] LABS: White Blood Cell Scan OK (OK)
[2024-08-23 19:53] LABS: Blood Morphology Comment NOT SEEN (NOT SEEN); Platelet Estimate ADEQ
--- NOTE | 2024-08-23 20:06 | RAD REPORT ---
EXAMINATION: CT ABDOMEN AND PELVIS WITH CONTRAST CLINICAL INDICATION: ABD PAIN TECHNIQUE: CT abdomen and pelvis was performed, after the administration of IV contrast, as per [facility] protocol. Axial, sagittal and coronal reconstructions were obtained. One or more of the following dose reduction techniques were used: Automated exposure control, adjustment of the mA and k V according to patient size, and iterative reconstruction. Unless otherwise specified, incidental findings do not require dedicated imaging follow-up. COMPARISON: 06/03/2020 FINDINGS: LOWER CHEST: The visualized lung bases are clear. Small hiatal hernia. LIVER: Normal in size and contour. No focal lesion. Cholecystectomy clips. SPLEEN: Normal size. No focal lesion. PANCREAS: No mass, ductal dilation, or christi-pancreatic fluid. ADRENALS: Normal; no mass. KIDNEYS: Normal size and contour. No hydronephrosis. GASTROINTESTINAL TRACT: No evidence of free air, significant intra-abdominal free fluid, bowel obstru ction or abscess. APPENDIX: Normal appendix. LYMPH NODES: No lymphadenopathy. MUSCULOSKELETAL: Mild levoscoliosis of the lumbar spine. ADDITIONAL FINDINGS: None. IMPRESSION: No acute or concerning abnormalities seen in the abdomen or pelvis.
--- NOTE | 2024-08-23 20:38 | ER ---
Nurse's Notes [facility] Name: Rosanne Sparks Age: 28 yrs Sex: Female : 1995 Arrival Date: 08/23/2024 Time: 16:34 Bed 11 Private MD: Diagnosis: Viral gastroenteritis Presentation: 08/23 16:56 Chief complaint: Patient states: vomiting and diarrhea since today, cough and iw congestion since last week. Coronavirus screen: At this time, the client does not indicate any symptoms associated with coronavirus-19. Ebola Screen: No symptoms or risks identified at this time. Initial Sepsis Screen: Does the patient meet any 2 criteria? HR > 90 bpm. Does the patient have a suspected source of infection?. Risk Assessment: Do you want to hurt yourself or someone else? Patient reports no desire to harm self or others. Onset of symptoms was August 18, 2024. 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 - Infectious Disease History:: Denies. - Social history:: Smoking status: Patient denies any tobacco usage or history of. Screenin:03 [facility] ED Fall Risk Assessment (Adult) History of falling in the last 3 months, jb4 including since admission No falls in past 3 months (0 pts) Confusion or Disorientation No (0 pts) Intoxicated or Sedated No (0 pts) Impaired Gait No (0 pts) Mobility Assist Device Used No (0 pt) Altered Elimination No (0 pt) Score/Fall Risk Level 0 - 2 = Low Risk Oriented to surroundings, Maintained a safe environment. Abuse screen: Denies threats or abuse. Nutritional screening: No deficits noted. Tuberculosis screening: No symptoms or risk factors identified. Assessment: 18:36 General: Appears in no apparent distress. comfortable, Behavior is calm, cooperative, jb4 appropriate for age. Pain: Complains of pain in chest Pain does not radiate. Pain currently is 5 out of 10 on a pain scale. Neuro: Level of Consciousness is awake, alert, obeys commands, Oriented to person, place, time, situation. Cardiovascular: Patient's skin is warm and dry. Respiratory: Airway is patent Respiratory effort is even, unlabored, Respiratory pattern is regular, symmetrical. GI: Abdomen is round Reports nausea, vomiting. Derm: Skin is intact, Skin is pink, warm \T\ dry. Musculoskeletal: Circulation, motion, and sensation intact. Range of motion: intact in all extremities. 20:00 Reassessment: Patient appears in no apparent distress at this time. Patient and/or jb4 family updated on plan of care and expected duration. Pain level reassessed. Patient is alert, oriented x 3, equal unlabored respirations, skin warm/dry/pink. Patient states feeling better. 21:03 Reassessment: Patient appears in no apparent distress at this time. Patient and/or jb4 family updated on plan of care and expected duration. Pain level reassessed. Patient is alert, oriented x 3, equal unlabored respirations, skin warm/dry/pink. Vital Signs: 16:56 BP 124 / 77; Pulse 118; Resp 19; Pulse Ox 96% on R/A; Weight 95.25 kg; Height 5 ft. 0 iw in. ; 20:00 BP 122 / 83; Pulse 107; Resp 16; Pulse Ox 98% on R/A; jb4 16:56 Body Mass Index 41.01 (95.25 kg, 152.4 cm) iw 20:00 Pt reports this heart rate is normal jb4 ED Course: 16:41 Patient arrived in ED. cj3 16:52 Reena Johnson PA-C is PHCP. sb4 16:52 Arpit Yeboah MD is Attending Physician. sb4 16:58 Triage completed. iw 16:59 Arm band placed on. iw 18:13 COVID-19 Ag + Flu A+B Ag Sent. bc6 18:13 CBC with Diff Sent. bc6 18:13 Lipase Sent. bc6 18:13 CMP Sent. bc6 18:13 Initial lab(s) drawn, by mo, sent to lab. Inserted saline lock: 20 gauge in right bc6 antecubital area, using aseptic technique. Blood collected. Flushed with 10 mL NS. 19:46 CT Abd/Pelvis - IV Contrast Only In Process Unspecified. EDMS 20:11 Arturo Munson, RN is Primary Nurse. jb4 21:03 Patient has correct armband on for positive identification. Bed in low position. Call jb4 light in reach. Side rails up X 1. Provided Education on: discharge instructions.. 21:03 No provider procedures requiring assistance completed. IV discontinued, intact, jb4 bleeding controlled, No redness/swelling at site. Pressure dressing applied. Administered Medications: 18:37 Drug: Famotidine IVP 20 mg IVP once; dilute with 10 mL 0.9% NaCl; give over 2 minutes jb4 Route: IVP; Site: right antecubital; 19:00 Follow up: Response: No adverse reaction; Marked relief of symptoms jb4 18:37 Drug: Ondansetron IVP 4 mg IVP once; over 2 minutes Route: IVP; Site: right antecubital;jb4 19:00 Follow up: Response: No adverse reaction; Marked relief of symptoms jb4 18:37 Drug: NS 0.9% IV 1000 ml IV at 1 bolus Per protocol; to be given as a bolus over 60 jb4 minutes Route: IV; Rate: 1 bolus; Site: right antecubital; 19:37 Follow up: Response: No adverse reaction; IV Status: Completed infusion; IV Intake: jb4 1000ml 18:38 Drug: TORadol - Ketorolac IVP 15 mg IVP once Route: IVP; Site: right antecubital; jb4 19:00 Follow up: Response: No adverse reaction; Marked relief of symptoms jb4 Medication: 21:03 VIS not applicable for this client. jb4 Intake: 19:37 IV: 1000ml; Total: 1000ml. jb4 Outcome: 20:37 Discharge ordered by MD. sb4 21:03 Discharged to home ambulatory, jb4 21:03 Condition: stable 21:03 Discharge instructions given to patient, Instructed on discharge instructions, follow up and referral plans. medication usage, Demonstrated understanding of instructions, follow-up care, medications, Prescriptions given X 2, 21:07 Patient left the ED. jb4 Signatures: Dispatcher [employer] EDLA Cheryl Blount RN RN Arturo Munson RN RN jb4 Reena Johnson PA-C PA-C sb4 Jennifer Head bc6 Kinza Corey cj3
--- NOTE | 2024-08-23 20:38 | EDPHYS ---
Physician Documentation [facility] Name: Rosanne Sparks Age: 28 yrs Sex: Female : 1995 Arrival Date: 08/23/2024 Time: 16:34 Bed 11 Private MD: ED Physician Arpit Yeboah HPI: 08/23 18:18 This 28 yrs old Female presents to ER via Ambulatory with complaints of sb4 Nausea/Vomiting/Diarrhea, Cough, Chest Pain. 18:18 Patient reports abdominal pain, nausea, vomiting, and diarrhea that began this morning. sb4 Additionally, she states that she has had a cough and congestion since last week. She thinks she has had a fever 2. States that her sister has similar symptoms. States she did not take her propranolol this morning because she was worried she would throw it up. [employer]: 16:59 LMP N/A - control method, Not iw Historical: - Allergies: 16:58 No Known Allergies; iw - Home Meds: 16:58 metformin 500 mg Oral tablet 1 tab 2 times per day [Active]; propranolol 10 mg oral iw tablet 2 times per day [Active]; - PMHx: 16:58 Diabetes - IDDM; high heart rate; iw - PSHx: 16:58 Cholecystectomy; right foot; palate surgery; iw - Immunization history:: Adult Immunizations up to date. - Infectious Disease History:: Denies. - Social history:: Smoking status: Patient denies any tobacco usage or history of. ROS: 18:18 Constitutional: Positive for fever, sb4 18:18 Respiratory: Positive for cough, 18:18 Abdomen/GI: Positive for abdominal pain, nausea, vomiting, and diarrhea, 18:18 All other systems are negative, Exam: 18:18 Constitutional: This is a well developed, well nourished patient who is awake, alert, sb4 and in no acute distress. Head/Face: Normocephalic, atraumatic. Eyes: Extra-ocular motions intact. Periorbital areas with no swelling, redness, or edema. ENT: Mucous membranes moist. Respiratory: No increased work of breathing, no retractions or nasal flaring. Abdomen/GI: Soft, non-tender, no distension. Skin: Warm, dry with normal turgor. Normal color with no rashes, no lesions, and no evidence of cellulitis. 18:20 Cardiovascular: Rate: tachycardic, Rhythm: regular, sb4 Vital Signs: 16:56 BP 124 / 77; Pulse 118; Resp 19; Pulse Ox 96% on R/A; Weight 95.25 kg; Height 5 ft. 0 iw in. ; 20:00 BP 122 / 83; Pulse 107; Resp 16; Pulse Ox 98% on R/A; jb4 16:56 Body Mass Index 41.01 (95.25 kg, 152.4 cm) iw 20:00 Pt reports this heart rate is normal jb4 MDM: 16:56 Medical Screening Exam initiated sb4 23:25 Data reviewed: vital signs, nurses notes, lab test result(s), radiologic studies, and sb4 as a result, I will discharge patient. Counseling: I had a detailed discussion with the patient and/or guardian regarding the historical points, exam findings, and any diagnostic results supporting the discharge/admit diagnosis, lab results, radiology results, the need for outpatient follow up, for definitive care, to return to the emergency department if symptoms worsen or persist or if there are any questions or concerns that arise at home. 08/23 17:57 Order name: CBC with Diff; Complete Time: 19:53 sb4 08/23 17:57 Order name: CMP; Complete Time: 18:55 sb4 08/23 17:57 Order name: Lipase; Complete Time: 18:55 sb4 08/23 17:57 Order name: Test, Urine; Complete Time: 18:59 sb4 08/23 17:57 Order name: Urinalysis w/ reflexes; Complete Time: 18:59 sb4 08/23 17:57 Order name: COVID-19 Ag + Flu A+B Ag; Complete Time: 19:16 sb4 08/23 19:01 Order name: Urine Culture EDIN 08/23 19:53 Order name: CBC Smear Scan; Complete Time: 19:53 EDIN 08/23 18:55 Order name: CT Abd/Pelvis - IV Contrast Only; Complete Time: 20:13 sb4 08/23 17:57 Order name: IV Saline Lock; Complete Time: 18:13 sb4 08/23 17:57 Order name: Labs collected and sent; Complete Time: 18:13 sb4 08/23 20:13 Order name: PO challenge; Complete Time: 20:21 sb4 Administered Medications: 18:37 Drug: Famotidine IVP 20 mg IVP once; dilute with 10 mL 0.9% NaCl; give over 2 minutes jb4 Route: IVP; Site: right antecubital; 19:00 Follow up: Response: No adverse reaction; Marked relief of symptoms jb4 18:37 Drug: Ondansetron IVP 4 mg IVP once; over 2 minutes Route: IVP; Site: right antecubital;jb4 19:00 Follow up: Response: No adverse reaction; Marked relief of symptoms jb4 18:37 Drug: NS 0.9% IV 1000 ml IV at 1 bolus Per protocol; to be given as a bolus over 60 jb4 minutes Route: IV; Rate: 1 bolus; Site: right antecubital; 19:37 Follow up: Response: No adverse reaction; IV Status: Completed infusion; IV Intake: jb4 1000ml 18:38 Drug: TORadol - Ketorolac IVP 15 mg IVP once Route: IVP; Site: right antecubital; jb4 19:00 Follow up: Response: No adverse reaction; Marked relief of symptoms jb4 Disposition: 23:25 Chart complete. sb4 Disposition Summary: 08/23/24 20:37 Discharge Ordered Notes: Location: Home sb4 Problem: new sb4 Symptoms: have improved sb4 Condition: Stable sb4 Diagnosis - Viral gastroenteritis sb4 Followup: sb4 - With: Emergency Department - When: As needed - Reason: Trouble breathing, Worsening of condition Discharge Instructions: - Discharge Summary Sheet sb4 - Viral Gastroenteritis, Adult, [id number] sb4 Forms: - Patient Portal Instructions sb4 - Leadership Thank You Letter sb4 Prescriptions: - Imodium A-D 1 mg/7.5 mL Oral liquid - take 7.5 milliliter ORAL route every hour for 24 hours as needed for loose sb4 stool; do not exceed total dose of 4 mg per 24 hrs; 30 milliliter; Refills: 0, Product Selection Permitted - ondansetron HCl 4 mg/5 mL Oral solution - take 5 milliliter ORAL route every 4 hours as needed for nausea and vomiting; sb4 50 milliliter; Refills: 0, Product Selection Permitted Signatures: Dispatcher [employer] Cheryl Parnell RN RN Arturo Munson RN RN jb4 Reena Johnson PA-C PA-C sb4 Corrections: (The following items were deleted from the chart) 17:58 17:58 CBC+H.LAB.BRZ ordered. EDMS EDMS 17:58 17:58 COMPREHENSIVE METABOLIC PANEL+C.LAB.BRZ ordered. EDMS EDMS 17:58 17:58 LIPASE+C.LAB.BRZ ordered. EDMS EDMS 17:58 17:58 Test, Urine+UC.LAB.BRZ ordered. EDMS EDMS 17:58 17:58 Urinalysis+U.LAB.BRZ ordered. EDMS EDMS 17:58 17:58 COVID-19 Ag + Flu A+B Ag+I.LAB.BRZ ordered. EDMS EDMS 18:20 18:18 Constitutional: This is a well developed, well nourished patient who is awake, sb4 alert, and in no acute distress. Head/Face: Normocephalic, atraumatic. Eyes: Extra-ocular motions intact. Periorbital areas with no swelling, redness, or edema. ENT: Mucous membranes moist. Cardiovascular: Regular rate and rhythm with a normal S1 and S2. Respiratory: No increased work of breathing, no retractions or nasal flaring. Abdomen/GI: Soft, non-tender, no distension. Skin: Warm, dry with normal turgor. Normal color with no rashes, no lesions, and no evidence of cellulitis. sb4
[2024-08-24 04:10] VITALS: BP 122/83; O2SAT 98
== END 2024-08-23 21:07 | disposition home or self-care (01) ==
LOC: ER 16:34
DX: A08.4 Viral intestinal infection, unspecified (principal); Z11.52 Encounter for screening for COVID-19
CPT/HCPCS: 96361; 87088; 85025; 81001; 87086; 36415; 81025; 83690; 80053; 74177; 96375; 96374; 99284; 87428; Q9967; J2405; J7030

== ENCOUNTER 2025-03-06 19:14 | Emergency (ER) | payer MEDICAID ==
--- OUTSIDE RECORDS SUMMARY | 2025-03-06 19:33 | XMS REPORT | Continuity of Care Document ---
Author Name Unknown Address [address] [facility]. [address] [place] [address] [facility] [place] Address [address] [facility] [address] [place] [address] Care Team Providers Care Utility Locate Technician Name Role Phone KELLY REYNAGA Primary Care Physician Unavailab Nicky Jesus Attending Clinician Unavailable LISA YAN Attending Clinician LISA Perez Attending Clinician LUCY Curry Attending Clinician UnavailARLENE Swanson Attending Clinician Unavailable CHRISTIAN HENDERSON Attending Clinician Unavailable JEFFREY CONNELL Attending Clinician UnavailLAURA Mancia Attending Clinician Unavailable KELLY REYNAGA Attending Clinician Unavailable Juhi OWENS, Kelly Attending Clinician [phone] Kirill Bower PA-C Attending Clinician [phone] Jeffrey Connell DDS Attending Clinician + [phone] Doctor Unassigned, Ozora Attending Clinician U Laura Mcelroy DDS Attending Clinician [phone] Rudi Camarillo MD Attending Clinician +[phone] RUDI CAMARILLO Attending Clinician Unavailable RUDI CAMARILLO Attending Clinician Unavailable FANTA WATSON Attending Clinician Unavailab Toño Jha Attending Clinician + Arlene Cleaning MD Attending Clinician [phone] Babar Pelletier MD Attending Clinician [phone] Lisa Yan MD Attending Clinician + [phone] Nurse, [facility] Attending Clinician Un available MARGARITO ARIZA Attending Clinician Unavailable MARGARITO ARIZA Attending Clinician Unavailable JANAY PEREZ Attending Clinician Unavailab JANAY Valdez Attending Clinician Unavailab ANGEL LUIS Sharif Attending Clinician Unavailab yolande Brice Ang - Db Attending Clinician Unavailable Justen Tang MD Attending Clinician [phone] VALENTINO CASTILLO Attending Clinician UnavailTiffany Case PA-C Attending Clinician [phone] Obie KIMBROUGH, Christian Attending Clinician +[phone] TIFFANY HORNE Attending Clinician Unavailable TIFFANY HORNE Attending Clinician Unavailable [facility] Attending Clinician Unavailable Luke Henderson DO Attending Clinician [phone] LUKE HENDERSON Attending Clinician Unavailab LUKE Ricketts Attending Clinician Unavailab JUSTEN Whitney Attending Clinician Unavailable JUSTEN TANG Attending Clinician Unavailable Lab, Sleep Attending Clinician Unavailable Lyle San MD Attending Clinician [phone] LYLE SAN Attending Clinician Unavailable NICKY PECK Attending Clinician Unavailable Margarito Ariza DO Attending Clinician [phone] Kehinde Hsieh MD Attending Clinician +[phone] Jacob Freeman MD Attending Clinician + [phone] JACOB FREEMAN Attending Clinician Unavaila franco Bear MD, Mushtaq Attending Clinician + [phone] Pob, [facility] Main Attending Clinician UnavailRao Molina MD, Gordo Attending Clinician + Cem Portillo MD Attending Clinician +[phone] CEM PORTILLO Attending Clinician UnavailMARYJO Sandhu Attending Clinician UnavailMARYJO Sandhu Attending Clinician Unavaillazaro Mahoney PT, Mayra Cm Attending Clinician Unavailable Maryjo Whitfield MD Attending Clinician [phone] BABAR PELLETIER Attending Clinician Unavailable Ayden Johnson PTA Attending Clinician Unavaila TRISTIAN Meeks Attending Clinician Unavailable TRISTIAN MCKEON Attending Clinician Unavailable Linnea Quarles DDS, Familia Attending Clinician Peyton Lerma DO Attending Clinician + [phone] Tristian Mckeon MD Attending Clinician +[phone] ELIZABETH YEBOAH Attending Clinician Unavailable ELIZABETH YEBOAH Attending Clinician Unavailable Elizabeth Yeboah MD Attending Clinician [phone] Jaylan Camarillo MD Attending Clinician +[phone] JAYLAN CAMARILLO Attending Clinician Unavaillazaro Briceno PT, Kayla Attending Clinician Unavailabl e NISHANT CHAPMAN Attending Clinician Unavailable NISHANT CHAPMAN Attending Clinician Unavailable Nishant Chapman MD Attending Clinician [phone] Katie Connell RN Attending Clinician Unavaila franco Martínez DDS, [facility] Attending Clinician [phone] Prabhu KIMBROUGH, Babar Attending Clinician +[phone] NJ BULLOCK Attending Clinician UnaMILVIA Robles Attending Clinician Unavailable MILVIA CHEUNG Attending Clinician Unavailable Tian Caro MD Attending Clinician [phone] Viola Roberts Attending Clinician [phone] Unknown, Attending Attending Clinician Unavailab VIOLA Gama Attending Clinician Unavailable Lab, Ang - Db Attending Clinician Unavailable Anegermaine OWENS Kelly Attending Clinician [phone] Po, [facility] Lab Main Attending Clinician UnavailOBEY Conn Attending Clinician Unavailable Nurse, [facility] Attending Clinician Un available TIAN CARO Attending Clinician Unavaillazaro Cage APPLICATION DEFENSE MANAGER- Obey INMAN Attending Clinician Luke Henderson DO Attending Clinician [phone] Jaylan Camarillo MD Attending Clinician +[phone] , [facility] Sleep Lab Bed Attending Clinician Unavail able Kenzie Sethi MD Attending Clinician + [phone] KENZIE SETHI Attending Clinician Unavaila KENZIE Tracey Attending Clinician Unavaila franco Doctor Unassigned, Ozora Attending Clinician U navailable Nicky Serrano Attending Clinician +[phone] MONTSERRAT RUBIN Attending Clinician Unavailable Emily Kaminski RN Attending Clinician Unavaillazaro Duong Attending Clinician Unavailab CARMEN House Attending Clinician UnavailCem Slater MD Attending Clinician [phone] Mirtha Bowman LVN Attending Clinician UnaAnne Ivan MA Attending Clinician Unavaillazaro Bullock MD, Nj Busby Attending Clinician + [phone] MALACHI DURAN Attending Clinician Unavailable Malachi Mejia Attending Clinician +[phone] Burke POSEY Attending Clinician Unavailable Taty PACBurke Attending Clinician +[phone] Ale LOPEZ, Susan Attending Clinician Unavailab le Provider, [facility] Attending Clinician Unavailable Rony KIMBROUGH, Jono Attending Clinician [phone] Only, Ang Db Test Attending Clinician UnavailJONO Verduzco Attending Clinician Unavailable Vaccine, Ang Db Cbc Fam Attending Clinician Unav ailable UNKNOWN, ATTENDING Attending Clinician Unavailab SIVAKUMAR Gamez Attending Clinician UnavailIsabel Jaeger RN Attending Clinician Unavailable Diana Mahajan Attending Clinician [phone] Provider, [facility] Attending Clinician Un available STEVE MURO Attending Clinician Unavailable TOÑO GANT Admitting Clinician Unava ilMARGARITO Do Admitting Clinician Unavailable JUSTEN TANG Admitting Clinician Unavailable Justen Tang MD Admitting Clinician [phone] FAMILIA GANT Admitting Clinician Paige vailable Familia Gant DDS Admitting Clinician MILVIA CHEUNG Admitting Clinician Unavailable LAURA MARTÍNEZ Admitting Clinician Unavailable Laura Martínez DDS Admitting Clinician [phone] NICKY PECK Admitting Clinician Unavailable JAYLAN CAMARILLO Admitting Clinician Unavaillazaro Duong Admitting Clinician Unavailab le Payers Payer Name Policy Type Policy Number Effective Date Expirati on Date Source [facility] [id number] 00:00:00 [facility] [id number] Problems Condition Name Condition Details Condition Category Status Onset Date Resolution Date Last Treatment Date Treating Clinician Comments Source Acute UTI (urinary tract infection) Acute UTI (urinary tract infection) Disease Active 7- 00:00: 00 [facility] Alkaline phosphatas e elevation Alkaline phosphatas e elevation Disease Active 5-05 00:00: 00 [facility] Hematemesi s, unspecifie d whether nausea present Hematemesi s, unspecifie d whether nausea present Disease Active 2-05 00:00: 00 [facility] Sinus tachycardi a Sinus tachycardi a Disease Active 7- 00:00: 00 [facility] Palpitatio ns Palpitatio ns Disease Active 7 00:00: 00 [facility] Neutrophil ia Neutrophil ia Disease Active 12-07 00:00: 00 Overview: Formattin g of this note is different from the original. WBC (10*3/?L) Date Value 4 15.69 (H) 4 20.60 (H) 4 14.31 (H) 3 12.29 (H) 3 12.68 (H) [facility] Intoleranc e of continuous positive airway pressure (CPAP) ventilatio n Intoleranc e of continuous positive airway pressure (CPAP) ventilatio n Disease Active 5-20 00:00: 00 [facility] FAWN (obstructi ve sleep apnea) FAWN (obstructi ve sleep apnea) Disease Active 5-17 00:00: 00 [facility] Type 2 diabetes mellitus without complicati on, without long-term current use of insulin Type 2 diabetes mellitus without complicati on, without long-term current use of insulin Disease Active 3-03 00:00: 00 [facility] Morbid obesity Morbid obesity Disease Active 3-03 00:00: 00 [facility] Type 2 diabetes mellitus without complicati on, without long-term current use of insulin Type 2 diabetes mellitus without complicati on, without long-term current use of insulin Disease Active 3-03 00:00: 00 [facility] Plantar fasciitis of left foot Plantar fasciitis of left foot Disease Active 9 00:00: 00 [facility] Contractur e of right ankle Contractur e of right ankle Problem [facility] Plantar fascial fibromatos is Plantar fascial fibromatos is Problem [facility] Pain in left foot Pain in left foot Disease Resolve d 9 00:00: 00 2023-12-11 00:00:00 2023-12-11 09:11:56 [facility] Subacute maxillary sinusitis Subacute maxillary sinusitis Disease Resolve d 6- 00:00: 00 2023-12-11 00:00:00 2023-12-11 09:11:53 [facility] Left arm pain Left arm pain Disease Resolve d - 00:00: 00 2023-12-11 00:00:00 2023-12-11 09:11:51 [facility] Acute otitis media, bilateral Acute otitis media, bilateral Disease Resolve d - 00:00: 00 2023-12-11 00:00:00 2023-12-11 09:11:49 [facility] Allergies, Adverse Reactions, Alerts Allergy Name Allergy Type Status Severity Reaction(s) Onset Date Inactive Date Treating Clinician Comments Source NO KNOWN ALLERGIE S Drug Class Active [facility] Social History Social Habit Start Date Stop Date Quantity Comments Source Sex Assigned At [facility] History of Tobacco Use [facility] Sexual orientation [facility] ASSERTION Not [facility] Alcoholic beverage intake 2025-01-17 00:00:00 2025-01-17 00:00:00 Current drinker of alcohol (finding) [facility] History of Social function 2024-11-29 00:00:00 2024-11-29 00:00:00 [facility] Alcohol Comment 2023-11-20 00:00:2023-11-20 00:00:00 ocassional [facility] Alcohol intake 2023-10-05 00:00:00 2023-10-05 00:00:00 Lifetime non-drinker (finding) [facility] Exposure to SARS-CoV-2 (event) 2022-11-06 00:00:00 2022-11-16 16:22:00 Not sure [facility] Tobacco use and exposure 2022-04-17 00:00:00 2022-04-17 00:00:00 Smokeless tobacco non-user [facility] Smoking Status Start Date Stop Date Source Never smoked tobacco [facility] Medications Ordered Medication Name Filled Medication Name Start Date Stop Date Current Medication? Ordering Clinician Indication Dosage Frequency Signature (SIG) Comments Components Source maalox/diph enhydrAMINE :lidocaine2 %viscous 1:1:1: suspension (COMPOUNDED ) maalox/diph enhydrAMINE :lidocaine2 %viscous 1:1:1: suspension (COMPOUNDED ) 02-28 16:15: 00 02-28 16:26 :00 Yes 15mL 15 mL, Oral, ONCE, 1 dose, On Thu02/28/25 at 1115, Routine [facility] pantoprazol e (PROTONIX) 40 mg in NaCl 0.9% (NS) 10 mL syringe pantoprazol e (PROTONIX) 40 mg in NaCl 0.9% (NS) 10 mL syringe 02-28 16:15: 00 02-28 16:27 :00 Yes 40mg 40 mg, Slow IV Push, Administer over 2 Minutes, ONCE, 1 dose, On Thu02/28/25 at 1115, Routine [facility] pantoprazol e 40 mg EC tablet 02-28 00:00: 00 Yes [id number] 40mg Take 1 tablet by mouth in the morning. [facility] tirzepatide (MOUNJARO) 7.5 mg/0.5 mL subcutaneou s injection pen [id number] 02-23 00:00: 00 Yes [id number] 7.5mg Inject 7.5 mg under the skin weekly. [facility] ondansetron 4 mg tablet 02-01 00:00: 00 Yes [id number] 4mg Take 1 tablet by mouth every 12 hours as needed for Nausea and Vomiting (N/V). [facility] meloxicam 15 mg tablet 01-09 00:00: 00 Yes [id number] 15mg Take 1 tablet by mouth in the morning. [facility] tirzepatide (MOUNJARO) 7.5 mg/0.5 mL subcutaneou s injection pen [id number] 01-09 00:00: 00 02-21 00:00 :00 Yes [id number] 7.5mg inject 7.5 mg under the skin weekly. [facility] medroxyPROG ESTERone (DEPO-PROVE RA) syringe 150 mg 12-27 20:15: 00 12-27 19:35 :00 No [id number] 150mg 150 mg, Intramuscu lar, ONCE, 1 dose, On Thu12/27/24 at 1515, Routine [facility] amoxicillin -pot clavulanate 875-125 mg per tablet 12-20 00:00: 00 12-26 04:59 :00 Yes [id number] 1{tbl} Take 1 tablet by mouth in the morning and 1 tablet in the evening. Do all this for 5 days. [facility] cefTRIAXone (ROCEPHIN) 1,000 mg in sterile water for injection 10 mL IV Push 12-15 21:15: 00 12-15 20:56 :00 No 1000mg 1,000 mg, Intravenou s, ONCE, 1 dose, On Thu12/15/24 at 1615, 10 mL, Reason for Anti-Infec tive: Documented Infection, Documented Infection Site: Urine, Duration of therapy: Once (ED) [facility] ketorolac (TORADOL) injection 15 mg 12-15 18:45: 00 12-15 19:54 :00 No 15mg 15 mg, Slow IV Push, ONCE, 1 dose, On Thu12/15/24 at 1345, Routine [facility] NaCl 0.9% (NS) bolus infusion 1,000 mL 12-15 18:15: 00 12-15 21:45 :00 No 1000mL at 999 mL/hr, 1,000 mL, IV Infusion, ONCE, 1 dose, On Brenna 12/15/24 at 1315, STAT [facility] levoFLOXaci n 750 mg tablet 12-15 00:00: 00 Yes [id number] 750mg Take 1 tablet by mouth every 24 hours. [facility] cefTRIAXone (ROCEPHIN) 1 g in lidocaine 1% (PF) (XYLOCAINE) IM syringe 12-11 06:00: 00 12-11 05:12 :00 No 1g Intramuscu lar, ONCE, 1 dose, On 12/11/24 at 0100, 2.86 mL, Reason for Anti-Infec tive: Documented Infection, Documented Infection Site: Urine, Duration of therapy: Once (ED) [facility] acetaminoph en (TYLENOL) tablet 1,000 mg 12-11 05:00: 00 12-11 05:11 :00 No 1000mg 1,000 mg, Oral, ONCE, 1 dose, On 12/11/24 at 0000, Routine [facility] cefdinir 300 mg capsule 12-11 00:00: 00 12-19 04:59 :00 Yes [id number] 300mg Take 1 capsule by mouth in the morning and 1 capsule in the evening. Do all this for 7 days. [facility] tirzepatide (MOUNJARO) 5 mg/0.5 mL subcutaneou s injection pen [id number] 11-29 00:00: 00 01-09 00:00 :00 No [id number] 5mg inject 5 mg under the skin weekly. [facility] nystatin 100,000 unit/gram powder 11-25 00:00: 00 Yes [id number] Apply to area(s) 2 times daily. [facility] rosuvastati n 10 mg tablet 11-04 00:00: 00 Yes [id number] 10mg Take 1 tablet by mouth at bedtime. [facility] tirzepatide (MOUNJARO) 2.5 mg/0.5 mL subcutaneou s injection pen [id number] 11-04 00:00: 00 11-29 00:00 :00 No [id number] 2.5mg inject 2.5 mg under the skin weekly. [facility] blood sugar diagnostic (ACCU-CHEK GUIDE TEST STRIPS) strip 11-02 00:00: 00 Yes [id number] Use to check blood glucose once daily. [facility] pantoprazol e 40 mg EC tablet 10-25 00:00: 00 Yes [id number] 40mg Take 1 tablet by mouth in the morning. [facility] Lancets (ONETOUCH ULTRASOFT LANCETS) Misc 10-18 00:00: 00 Yes [id number] Use to check blood glucose once daily. Dx E11.9 [facility] pantoprazol e 2 mg/mL oral suspension 10-10 00:00: 00 Yes 40mg Take 20 mL by mouth in the morning and 20 mL in the evening. [facility] medroxyPROG ESTERone (DEPO-PROVE RA) injection 150 mg 10-04 21:30: 00 10-04 20:35 :00 No [id number] 150mg 150 mg, Intramuscu lar, ONCE, 1 dose, On Thu10/04/24 at 1630, Routine [facility] ampicillin 500 mg capsule 09-16 00:00: 00 09-24 04:59 :00 No [id number] 500mg Take 1 capsule by mouth every 6 (six) hours for 7 days. [facility] cephALEXin 500 mg capsule - 00:00: 00 09-15 04:59 :00 No [id number] 500mg Take 1 capsule by mouth in the morning and 1 capsule in the evening. Do all this for 7 days. [facility] ondansetron 4 mg/5 mL solution -19 00:00: 00 02-01 00:00 :00 No [facility] metFORMIN 500 mg tablet 08-02 00:00: 00 Yes [id number] 1000mg Take 2 tablets by mouth in the morning and 2 tablets in the evening. Take with meals. [facility] naproxen 500 mg tablet 07-28 00:00: 00 Yes [id number] 500mg Take 1 tablet by mouth in the morning and 1 tablet in the evening. Take with meals. [facility] pantoprazol e 2 mg/mL oral suspension 07-13 00:00: 00 10-10 00:00 :00 No [id number] 40mg Take 20 mL by mouth in the morning. [facility] medroxyPROG ESTERone (DEPO-PROVE RA) syringe 150 mg 07-12 17:30: 00 07-12 16:42 :00 No [id number] 150mg 150 mg, Intramuscu lar, ONCE, 1 dose, On Thu07/12/24 at 1130, Routine [facility] blood sugar diagnostic (ACCU-CHEK GUIDE TEST STRIPS) strip 06-24 00:00: 00 Yes [id number] Use to check blood glucose once daily. [facility] Lancets (ONETOUCH ULTRASOFT LANCETS) [facility] 06-24 00:00: 00 10-18 00:00 :00 No [id number] Use to check blood glucose once daily. [facility] Blood-Gluco se Meter (ACCU-CHEK GUIDE GLUCOSE METER) [facility] 06-24 00:00: 00 06-24 00:00 :00 No [id number] Use to check blood glucose once daily. [facility] blood sugar diagnostic (ACCU-CHEK GUIDE TEST STRIPS) strip 06-24 00:00: 00 06-24 00:00 :00 No [id number] Use to check blood glucose once daily. [facility] famotidine 40 mg/5 mL (8 mg/mL) suspension 06-18 00:00: 00 Yes [facility] propranoloL 10 mg tablet 1-07 00:00: 00 06-15 05:59 :00 No [id number] 10mg Take 1 tablet by mouth in the morning and 1 tablet in the evening. [facility] iopamidol (ISOVUE 370-500 mL) injection 75 mL 2023-06 06:30: 00 05-30 06:30 :00 No [id number] 75mL 75 mL, Intravenou s, ONCE, 1 dose, On Thu05/30/24 at 0030, Routine [facility] amoxicillin -clavulanat e 875-125 mg per tablet 2023-06 00:00: 00 08-02 00:00 :00 No [id number] 1{tbl} Take 1 tablet by mouth every 12 (twelve) hours. [facility] medroxyPROG ESTERone (DEPO-PROVE RA) syringe 150 mg 2023-06 22:45: 00 04-19 21:53 :00 No [id number] 150mg 150 mg, Intramuscu lar, ONCE, 1 dose, On Thu04/19/24 at 1645, Routine [facility] Naproxen 500 MG Naproxen 500 MG 2023-06 00:00: 00 No BID Naproxen 500 MG methylPREDN ISolone (MEDROL, JESSICA,) 4 mg tablets 2023-06 0-16 00:00: 00 08-02 00:00 :00 No [id number] Take by mouth SEE-INSTRU CTIONS. follow package directions [facility] metFORMIN 500 mg tablet 12 00:00: 00 08-02 00:00 :00 No [id number] 500mg Take 1 tablet by mouth in the morning and 1 tablet in the evening. Take with meals. [facility] medroxyPROG ESTERone (DEPO-PROVE RA) syringe 150 mg 01-25 22:45: 00 01-25 21:53 :00 No [id number] 150mg 150 mg, Intramuscu lar, ONCE, 1 dose, On Thu01/26/24 at 1745, Routine [facility] acyclovir 5 % ointment 8-08 00:00: 00 01-18 04:59 :00 No [id number] Apply to area(s) 5 (five) times daily for 4 days. [facility] propranoloL 10 mg tablet 16 00:00: 00 06-14 00:00 :00 No [id number] 10mg Take 1 tablet by mouth in the morning and 1 tablet in the evening. Do all this for 180 days. [facility] Potassium Bicarb-Citr ic Acid (EFFER-K) effervescen t tablet 40 mEq 12-18 11:45: 00 12-18 12:04 :00 No [id number] 40 mEq, Oral, ONCE, 1 dose, On 12/19/23 at 0645, Routine [facility] iopamidol (ISOVUE 370-500 mL) injection 75 mL 12-18 10:45: 00 12-18 10:45 :00 No [id number] 75mL 75 mL, Intravenou s, ONCE, 1 dose, On 12/19/23 at 0545, Routine [facility] nystatin 100,000 unit/gram cream 12-15 00:00: 00 12-30 04:59 :00 No [id number] Apply to area(s) 2 (two) times daily for 14 days. [facility] propranoloL (INDERAL) tablet 10 mg 12-10 02:00: 00 Yes 10mg 10 mg, Oral, QHS, First dose on Brenna 12/10/23 at 2100, Until Discontinu ed, Routine [facility] chlorhexidi ne 0.12 % mouthwash 12-10 00:00: 00 12-27 04:59 :00 No [id number] 15mL Swish and spit out 15 mL in the morning and 15 mL in the evening. Do all this for 16 days. [facility] ibuprofen 100 mg/5 mL oral suspension 12-10 00:00: 00 12-25 04:59 :00 No [id number] 600mg Take 30 mL by mouth every 6 (six) hours for 14 days. [facility] acetaminoph en 160 mg/5 mL (5 mL) oral suspension 12-10 00:00: 00 12-25 04:59 :00 No [id number] 500.16m g Take 15.63 mL by mouth every 6 (six) hours for 14 days. [facility] HYDROcodone -acetaminop hen 7.5-325 mg/15 mL solution 12-10 00:00: 00 12-18 04:59 :00 No [id number] 5mg Take 10 mL by mouth 4 (four) times daily as needed for Pain (scale 7-10) for up to 7 days. Indication s: acute pain [facility] amoxicillin -pot clavulanate (AUGMENTIN) 250-62.5 mg/5 mL suspension 12-10 00:00: 12-15 00:00 :00 No [id number] 500mg Take 10 mL by mouth in the morning and 10 mL at noon and 10 mL in the evening. Do all this for 10 days. [facility] acetaminoph en (TYLENOL) 160 mg/5 mL oral liquid 500 mg 12-09 23:00: 00 Yes 500mg 500 mg, Oral, Q6H, First dose on Brenna 12/10/23 at 1800, Until Discontinu ed, Routine [facility] ketorolac (TORADOL) injection 15 mg 12-09 23:00: 00 12-11 22:59 :00 No 15mg 15 mg, Slow IV Push, Q6H, 8 doses, First dose (after last modificati on) on Brenna 12/10/23 at 1800, Last dose on Thu12/12/23 at 1200, Routine [facility] dexamethaso ne sod phos PF injection 10 mg 12-09 17:45: 00 12-10 10:59 :00 No 10mg 10 mg, Intravenou s, Q8H, 3 doses, First dose on Thu12/10/23 at 1245, Last dose on Thu12/10/23 at 2200, 1 mL [facility] Sliding Scale Insulin - Lispro (HumaLOG) 12-09 17:00: 00 Yes Subcutaneo us, TID MEALS+HS, First dose on Thu12/10/23 at 1200, Until Discontinu ed, Routine [facility] glucagon (GLUCAGEN DIAGNOSTIC KIT) injection 1 mg 12-09 15:32: 11 Yes 1mg 1 mg, Intramuscu lar, PRN, Starting on Thu12/10/23 at 1032, Until Discontinu ed, LG, Blood Glucose < or = 70 mg/dL and patient is NPO, unable to swallow or has mental changes. [facility] dextrose 50 % in water (D50W) injection 25 mL 12-09 15:32: 11 Yes 25mL 25 mL, Slow IV Push, PRN, Starting on Thu12/10/23 at 1032, Until Discontinu ed, LG, Blood Glucose < or = 70 mg/dL and patient is NPO, unable to swallow or has mental status changes. [facility] chlorhexidi ne (PERIDEX) 0.12 % mouthwash 15 mL 12-09 01:00: 00 Yes 15mL 15 mL, Oral (Swish And Spit Out), BID, First dose on Thu12/09/23 at 2000, Until Discontinu ed, Routine [facility] ampicillin- sulbactam (UNASYN) 3 g [...] of therapy: within 24 hours of surgery [facility] FENTanyl PF (SUBLIMAZE (PF)) injection 25 mcg 12-08 20:27: 24 12-08 22:08 :40 No 25ug 25 mcg, Slow IV Push, Q5MIN PRN, 4 doses, Starting on Thu12/09/23 at 1527, Until Thu12/09/23 at 1708, Routine, Pain (scale 4-6), PACU [facility] [facility] lactated ringers IV infusion 1,000 mL 12-08 20:00: 00 Yes 1000mL at 42 mL/hr, 1,000 mL, IV Infusion, CONTINUOUS , Starting on Thu12/09/23 at 1500, Until Discontinu ed, Routine [facility] ketorolac (TORADOL) injection 15 mg 12-08 19:58: 06 12-09 19:29 :07 No 15mg 15 mg, Slow IV Push, Q6HPRN, Starting on Thu12/09/23 at 1458, Until Brenna 12/10/23 at 1429, Routine, Pain (scale 4-6) [facility] HYDROcodone -acetaminop hen (HYCET) 7.5-325 mg/15 mL solution 5 mg 12-08 19:57: 48 Yes 5mg 5 mg, Oral, Q6HPRN, Starting on Thu12/09/23 at 1457, Until Discontinu ed, Routine, Pain (scale 7-10) [facility] ondansetron (ZOFRAN (PF)) injection 4 mg 12-08 19:54: 58 Yes 4mg 4 mg, Slow IV Push, Q4HPRN, Starting on Thu12/09/23 at 1454, Until Discontinu ed, Routine, Nausea and Vomiting (N/V) [facility] lidocaine-e pinephrine (XYLOCAINE WITH EPINEPHRINE ) 1 %-1:100,000 injection 12-08 17:56: 00 12-08 20:27 :10 No PRN, Starting on Thu12/09/23 at 1256, Until Thu12/09/23 at 1527, Routine, Intra-op [facility] oxymetazoli ne (OXYMETAZOL INE HCL) 0.05 % nasal spray 12-08 17:55: 00 12-08 20:27 :10 No Intra-op [facility] vancomycin (VANCOCIN) 1,000 mg in NaCl 0.9% (NS) 1,000 mL OR irrigation 12-08 17:55: 00 12-08 20:27 :10 No PRN, Starting on Thu12/09/23 at 1255, Intra-op [facility] lactated ringers IV infusion 1,000 mL 11-11 15:00: 00 11-11 17:50 :15 No 1000mL at 75 mL/hr, 1,000 mL, IV Infusion, CONTINUOUS , Starting on Thu11/12/23 at 1000, Until Brenna 11/12/23 at 1250, Routine, PACU [facility] ondansetron (ZOFRAN (PF)) injection 4 mg 11-11 14:56: 17 11-11 17:50 :15 No 4mg 4 mg, Slow IV Push, PRN, 1 dose, Starting on Thu11/12/23 at 0956, Until Brenna 11/12/23 at 1250, Routine, Nausea and Vomiting (N/V), PACU [facility] no115/iron/ folic acid ( 19 ORAL) 11-11 10:50: 12 12-15 00:00 :00 No Take by mouth. [facility] medroxyPROG ESTERone (DEPO-PROVE RA) syringe 150 mg 11-02 16:45: 00 11-02 15:51 :00 No [id number] 150mg 150 mg, Intramuscu lar, ONCE, 1 dose, On Thu11/03/23 at 1145, Routine [facility] semaglutide (OZEMPIC) 1 mg/dose (4 mg/3 mL) PnIj 10-20 00:00: 00 02-17 00:00 :00 No [id number] 1mg inject 1 mg under the skin weekly. [facility] propranoloL 10 mg tablet 09-21 00:00: 00 12-21 00:00 :00 No [id number] 10mg Take 1 tablet by mouth at bedtime. [facility] medroxyPROG ESTERone (DEPO-PROVE RA) syringe 150 mg 08-09 15:00: 00 08-09 14:14 :00 No [id number] 150mg [facility] semaglutide (OZEMPIC) 1 mg/dose (4 mg/3 mL) PnIj 07-30 00:00: 00 10-20 00:00 :00 No [id number] 1mg inject 1 mg under the skin weekly. [facility] Cholecalcif fortunato, Vitamin D3, (VITAMIN D3) 50 mcg (2,000 unit) tablet 07-23 00:00: 00 12-15 00:00 :00 No [id number] Take 1 tablet by mouth in the morning. [facility] ergocalcife rol, vitamin d2, 1,250 mcg (50,000 unit) capsule 07-15 00:00: 00 07-23 00:00 :00 No [id number] Take 1 capsule by mouth weekly. [facility] semaglutide (OZEMPIC) 1 mg/dose (4 mg/3 mL) PnIj 06-25 00:00: 00 07-30 00:00 :00 No [id number] 1mg inject 1 mg under the skin weekly. [facility] cefUROXime 250 mg tablet 06-17 00:00: 00 06-25 05:59 :00 No [id number] 250mg Take 1 tablet by mouth in the morning and 1 tablet in the evening. Do all this for 7 days. [facility] semaglutide (OZEMPIC) 1 mg/dose (4 mg/3 mL) PnIj 2022-06 00:00: 00 06-25 00:00 :00 No [id number] 1mg inject 1 mg under the skin weekly. [facility] ergocalcife rol, vitamin d2, 1,250 mcg (50,000 unit) capsule 2022-06 00:00: 00 07-15 00:00 :00 No [id number] Take 1 capsule by mouth weekly. [facility] semaglutide (OZEMPIC) 1 mg/dose (4 mg/3 mL) PnIj 2022-06 00:00: 00 05-22 00:00 :00 No [id number] 1mg inject 1 mg under the skin weekly. [facility] medroxyPROG ESTERone (DEPO-PROVE RA) syringe 150 mg 02-23 15:30: 00 02-23 14:44 :00 No [id number] [facility] semaglutide (OZEMPIC) 0.25 mg or 0.5 mg(2 mg/1.5 mL) Ij 01-26 00:00: 00 03-26 00:00 :00 No [id number] .5mg inject 0.5 mg under the skin weekly. [facility] cefUROXime 250 mg tablet 12-24 00:00: 00 01-01 04:59 :00 No [id number] 250mg Take 1 tablet by mouth in the morning and 1 tablet in the evening. Do all this for 7 days. [facility] semaglutide (OZEMPIC) 0.25 mg or 0.5 mg(2 mg/1.5 mL) Ij 12-18 00:00: 00 01-26 00:00 :00 No [id number] .5mg inject 0.5 mg under the skin weekly. [facility] medroxyPROG ESTERone (DEPO-PROVE RA) syringe 150 mg 11-18 14:45: 00 11-18 13:54 :00 No [id number] [facility] ferrous sulfate (IRON ORAL) 11-18 08:43: 18 Yes Take by mouth. [facility] semaglutide (OZEMPIC) 0.25 mg or 0.5 mg(2 mg/1.5 mL) Ij 11-12 00:00: 00 12-18 00:00 :00 No [id number] .5mg inject 0.5 mg under the skin weekly. [facility] (O[facility]PIC) 0.25 mg or 0.5 mg(2 mg/1.5 mL) PnIj 09-08 00:00: 00 11-12 00:00 :00 No [id number] .5mg inject 0.5 mg under the skin weekly. [facility] medroxyPROG ESTERone (DEPO-PROVE RA) syringe 150 mg 08-12 18:15: 00 08-12 17:15 :00 No [id number] 150mg [facility] semaglutide (OZEMPIC) 0.25 mg or 0.5 mg(2 mg/1.5 mL) PnIj 08-08 00:00: 00 09-08 00:00 :00 No [id number] .25mg inject 0.25 mg under the skin weekly. [facility] metformin ER 750 mg 24 hr tablet 06-27 00:00: 00 09-08 00:00 :00 No [id number] 750mg Take 1 tablet by mouth daily with breakfast. [facility] medroxyPROG ESTERone (DEPO-PROVE RA) syringe 150 mg 2021-06 16:30: 00 05-19 15:52 :00 No [id number] 150mg [facility] triamcinolo ne acetonide 0.1 % cream 2021-06 00:00: 00 Yes [id number] Apply to area(s) 2 (two) times daily. [facility] ketoconazol e 2 % cream 2021-06 00:00: 00 Yes [id number] Apply to area(s) 2 (two) times daily. [facility] hydrOXYzine 25 mg tablet 2021-06 00:00: 00 12-15 00:00 :00 No [id number] 25mg Take 1 tablet by mouth every 6 (six) hours as needed for Itching. [facility] metformin ER 750 mg 24 hr tablet 2021-06 00:00: 00 06-27 00:00 :00 No [id number] 750mg Take 1 tablet by mouth daily with breakfast. [facility] ferrous sulfate (IRON ORAL) 2021-06 10:45: 25 Yes Take by mouth. [facility] miSOPROStoL 200 mcg tablet 2021-06- 00:00: 00 04-21 00:00 :00 No [id number] 200ug Take 1 tablet by mouth SEE-INSTRU CTIONS. Take one tab the night before and one tab the morning of procedure [facility] Diclofenac Sodium (VOLTAREN) 1 % gel 02-07 00:00: 00 09-08 00:00 :00 No [id number] Apply to area(s) 4 (four) times daily. Apply 4 g qid [facility] flash glucose sensor (FREESTYLE BAMBI 14 DAY SENSOR) Kit - 00:00: 00 09-08 00:00 :00 No 1{each} 1 Each every 14 (fourteen) days. Use as directed every 14 days for E11.9 [facility] metformin ER 750 mg 24 hr tablet 15 00:00: 00 05-09 00:00 :00 No [id number] 750mg Take 1 tablet by mouth daily with breakfast. [facility] naproxen 500 mg tablet - 00:00: 00 09-08 00:00 :00 No [id number] 500mg Take 1 tablet by mouth 2 (two) times daily as needed for Pain (scale 4-6). [facility] sulfamethox azole-trime thoprim (BACTRIM DS) 800-160 mg per tablet -31 00:00: 00 09-08 00:00 :00 No [id number] 9100 1{tbl} Take 1 tablet by mouth 2 (two) times daily. [facility] butalbital- acetaminoph en-caff 50-325-40 mg tablet -19 00:00: 00 09-08 00:00 :00 No [id number] 1{tbl} Take 1 tablet by mouth every 4 (four) hours as needed for Pain (scale 7-10). [facility] lisinopriL 2.5 mg tablet 08-30 00:00: 00 09-08 00:00 :00 No [id number] 2.5mg Take 1 tablet by mouth daily. [facility] SITagliptin (JANUVIA) 100 mg tablet 08-30 00:00: 00 06-27 00:00 :00 No [id number] 100mg Take 1 tablet by mouth daily. [facility] canaglifloz in (INVOKANA) 100 mg tablet 08-30 00:00: 00 10-15 00:00 :00 No [id number] 100mg Take 1 tablet by mouth daily. [facility] mupirocin 2 % ointment 06-28 00:00: 00 09-08 00:00 :00 No [id number] Apply to area(s) 3 (three) times daily. [facility] naproxen 500 mg tablet 2020-06 00:00: 00 06-23 05:59 :00 No [id number] 500mg Take 1 tablet by mouth 2 (two) times daily as needed for Pain (scale 4-6) for up to 30 days. [facility] pantoprazol e 40 mg EC tablet 2020-06 00:00: 00 09-08 00:00 :00 No [facility] famotidine 20 mg tablet 2020-06 00:00: 00 09-08 00:00 :00 No [facility] ibuprofen 800 mg tablet 2020-06 00:00: 00 01-17 00:00 :00 No [facility] SUMAtriptan 50 mg tablet 2020-06 00:00: 00 09-08 00:00 :00 No [facility] fluticasone propionate 50 mcg/actuati on nasal spray 2020-06 0-20 00:00: 00 09-08 00:00 :00 No [id number] 1{spray } Use 1 Millis in each nostril daily. [facility] guaiFENesin 400 mg tablet 2020-06 0-20 00:00: 00 01-17 00:00 :00 No [id number] 400mg Take 1 tablet by mouth every 4 (four) hours as needed for Cough. [facility] ciprofloxac in-dexameth asone (CIPRODEX) 0.3-0.1 % otic drops 2020-06 0 00:00: 00 01-17 00:00 :00 No [id number] 4[drp] Place 4 Drops in right ear 2 (two) times daily. [facility] glimepiride 2 mg tablet 2020-06 00:00: 00 06-20 00:00 :00 No [facility] acetaminoph en 650 mg CR tablet 11-15 00:00: 00 09-08 00:00 :00 No [id number] 650mg Take 1 tablet by mouth every 8 (eight) hours as needed for Pain or Fever. [facility] Diclofenac Sodium (VOLTAREN) 1 % gel 11-15 00:00: 00 02-07 00:00 :00 No [id number] Apply to area(s) 4 (four) times daily. Apply 4 g qid [facility] amoxicillin -clavulanat e (AUGMENTIN) 875-125 mg per tablet 11-15 00:00: 00 01-17 00:00 :00 No [id number] 1{tbl} Take 1 tablet by mouth 2 (two) times daily. [facility] DEPO-SKID ROAD MAN A 150 mg/mL syringe 11-08 00:00: 00 09-08 00:00 :00 No [facility] nystatin 100,000 unit/gram cream 4-30 00:00: 00 09-08 00:00 :00 No [facility] chlorhexidi ne 0.12 % mouthwash 27 00:00: 00 12-15 00:00 :00 No 32mL 32 mL. [facility] metFORMIN HCl 500 MG metFORMIN HCl 500 MG No 1{table t_with_ a_meal} QD metFORMIN HCl 500 MG Immunizations Ordered Immunization Name Filled Immunization Name Date Status Comments Source Flu Injectable MDCK Pres-Free (FLUCELVAX) 2024-02-18 00:00:00 Completed [facility] Influenza Virus Vaccine Quad IM, Preserv and ABX Free 6 MO-64 YRS (FLUCELVAX) 2023-03-26 00:00:00 Completed SARS-COV-2 COVID-19 PFIZER VACCINE 2021-05-10 00:00:00 Completed [facility] SARS-COV-2 COVID-19 PFIZER VACCINE 2021-05-10 00:00:00 Completed [facility] SARS-COV-2 COVID-19 PFIZER VACCINE 2021-05-10 00:00:00 Completed [facility] SARS-COV-2 COVID-19 PFIZER VACCINE 2021-05-10 00:00:00 Completed [facility] SARS-COV-2 COVID-19 PFIZER VACCINE 2021-05-10 00:00:00 Completed [facility] SARS-COV-2 COVID-19 PFIZER VACCINE 2021-05-10 00:00:00 Completed [facility] SARS-COV-2 COVID-19 PFIZER VACCINE 2021-05-10 00:00:00 Completed [facility] SARS-COV-2 COVID-19 PFIZER VACCINE 2021-05-10 00:00:00 Completed [facility] SARS-COV-2 COVID-19 PFIZER VACCINE 2021-05-10 00:00:00 Completed [facility] SARS-COV-2 COVID-19 PFIZER VACCINE 2021-05-10 00:00:00 Completed [facility] SARS-COV-2 COVID-19 PFIZER VACCINE 2021-05-10 00:00:00 Completed [facility] SARS-COV-2 COVID-19 PFIZER VACCINE 2021-05-10 00:00:00 Completed [facility] SARS-COV-2 COVID-19 PFIZER VACCINE 2021-05-10 00:00:00 Completed [facility] SARS-COV-2 COVID-19 PFIZER VACCINE 2021-05-10 00:00:00 Completed [facility] SARS-COV-2 COVID-19 PFIZER VACCINE 2021-05-10 00:00:00 Completed [facility] SARS-COV-2 COVID-19 PFIZER VACCINE 2021-05-10 00:00:00 Completed [facility] SARS-COV-2 COVID-19 PFIZER VACCINE 2021-05-10 00:00:00 Completed [facility] SARS-COV-2 COVID-19 PFIZER VACCINE 2021-05-10 00:00:00 Completed [facility] SARS-COV-2 COVID-19 PFIZER VACCINE 2021-05-10 00:00:00 Completed [facility] SARS-COV-2 COVID-19 PFIZER VACCINE 2021-05-10 00:00:00 Completed [facility] SARS-COV-2 COVID-19 PFIZER VACCINE 2021-05-10 00:00:00 Completed [facility] SARS-COV-2 COVID-19 PFIZER VACCINE 2021-05-10 00:00:00 Completed [facility] SARS-COV-2 COVID-19 PFIZER VACCINE 2021-05-10 00:00:00 Completed [facility] SARS-COV-2 COVID-19 PFIZER VACCINE 2021-05-10 00:00:00 Completed [facility] SARS-COV-2 COVID-19 PFIZER VACCINE 2021-05-10 00:00:00 Completed [facility] SARS-COV-2 COVID-19 PFIZER VACCINE 2021-05-10 00:00:00 Completed [facility] SARS-COV-2 COVID-19 PFIZER VACCINE 2021-05-10 00:00:00 Completed [facility] SARS-COV-2 COVID-19 PFIZER VACCINE 2021-05-10 00:00:00 Completed [facility] SARS-COV-2 COVID-19 PFIZER VACCINE 2021-05-10 00:00:00 Completed [facility] SARS-COV-2 COVID-19 PFIZER VACCINE 2021-05-10 00:00:00 Completed [facility] SARS-COV-2 COVID-19 PFIZER VACCINE 2021-05-10 00:00:00 Completed [facility] SARS-COV-2 COVID-19 PFIZER VACCINE 2021-05-10 00:00:00 Completed [facility] SARS-COV-2 COVID-19 PFIZER VACCINE 2021-05-10 00:00:00 Completed [facility] SARS-COV-2 COVID-19 PFIZER VACCINE 2021-05-10 00:00:00 Completed [facility] SARS-COV-2 COVID-19 PFIZER VACCINE 2021-05-10 00:00:00 Completed [facility] SARS-COV-2 COVID-19 PFIZER VACCINE 2021-05-10 00:00:00 Completed [facility] SARS-COV-2 COVID-19 PFIZER VACCINE 2021-05-10 00:00:00 Completed [facility] SARS-COV-2 COVID-19 PFIZER VACCINE 2021-05-10 00:00:00 Completed [facility] SARS-COV-2 COVID-19 PFIZER VACCINE 2021-05-10 00:00:00 Completed [facility] SARS-COV-2 COVID-19 PFIZER VACCINE 2021-05-10 00:00:00 Completed [facility] SARS-COV-2 COVID-19 PFIZER VACCINE 2021-05-10 00:00:00 Completed [facility] SARS-COV-2 COVID-19 PFIZER VACCINE 2021-05-10 00:00:00 Completed [facility] SARS-COV-2 COVID-19 PFIZER VACCINE 2021-05-10 00:00:00 Completed [facility] SARS-COV-2 COVID-19 PFIZER VACCINE 2021-05-10 00:00:00 Completed [facility] SARS-COV-2 COVID-19 PFIZER VACCINE 2021-05-10 00:00:00 Completed [facility] SARS-COV-2 COVID-19 PFIZER VACCINE 2021-05-10 00:00:00 Completed [facility] SARS-COV-2 COVID-19 PFIZER VACCINE 2021-05-10 00:00:00 Completed [facility] Influenza Virus Vaccine Quad IM, Preserv and ABX Free 6 MO-64 YRS 2021-04-22 00:00:00 Completed [facility] TDAP 2021-04-22 00:00:00 Completed [facility] Influenza Virus Vaccine Quad IM, Preserv and ABX Free 6 MO-64 YRS 2021-04-22 00:00:00 Completed [facility] TDAP 2021-04-22 00:00:00 Completed [facility] Influenza Virus Vaccine Quad IM, Preserv and ABX Free 6 MO-64 YRS 2021-04-22 00:00:00 Completed [facility] TDAP 2021-04-22 00:00:00 Completed [facility] Influenza Virus Vaccine Quad IM, Preserv and ABX Free 6 MO-64 YRS 2021-04-22 00:00:00 Completed [facility] TDAP 2021-04-22 00:00:00 Completed [facility] Influenza Virus Vaccine Quad IM, Preserv and ABX Free 6 MO-64 YRS 2021-04-22 00:00:00 Completed [facility] TDAP 2021-04-22 00:00:00 Completed [facility] Influenza Virus Vaccine Quad IM, Preserv and ABX Free 6 MO-64 YRS 2021-04-22 00:00:00 Completed [facility] TDAP 2021-04-22 00:00:00 Completed [facility] Influenza Virus Vaccine Quad IM, Preserv and ABX Free 6 MO-64 YRS 2021-04-22 00:00:00 Completed [facility] TDAP 2021-04-22 00:00:00 Completed [facility] Influenza Virus Vaccine Quad IM, Preserv and ABX Free 6 MO-64 YRS 2021-04-22 00:00:00 Completed [facility] TDAP 2021-04-22 00:00:00 Completed [facility] Influenza Virus Vaccine Quad IM, Preserv and ABX Free 6 MO-64 YRS 2021-04-22 00:00:00 Completed [facility] TDAP 2021-04-22 00:00:00 Completed [facility] Influenza Virus Vaccine Quad IM, Preserv and ABX Free 6 MO-64 YRS 2021-04-22 00:00:00 Completed [facility] TDAP 2021-04-22 00:00:00 Completed [facility] Influenza Virus Vaccine Quad IM, Preserv and ABX Free 6 MO-64 YRS 2021-04-22 00:00:00 Completed [facility] TDAP 2021-04-22 00:00:00 Completed [facility] Influenza Virus Vaccine Quad IM, Preserv and ABX Free 6 MO-64 YRS 2021-04-22 00:00:00 Completed [facility] TDAP 2021-04-22 00:00:00 Completed [facility] Influenza Virus Vaccine Quad IM, Preserv and ABX Free 6 MO-64 YRS 2021-04-22 00:00:00 Completed [facility] TDAP 2021-04-22 00:00:00 Completed [facility] Influenza Virus Vaccine Quad IM, Preserv and ABX Free 6 MO-64 YRS 2021-04-22 00:00:00 Completed [facility] TDAP 2021-04-22 00:00:00 Completed [facility] Influenza Virus Vaccine Quad IM, Preserv and ABX Free 6 MO-64 YRS 2021-04-22 00:00:00 Completed [facility] TDAP 2021-04-22 00:00:00 Completed [facility] Influenza Virus Vaccine Quad IM, Preserv and ABX Free 6 MO-64 YRS 2021-04-22 00:00:00 Completed [facility] TDAP 2021-04-22 00:00:00 Completed [facility] Influenza Virus Vaccine Quad IM, Preserv and ABX Free 6 MO-64 YRS 2021-04-22 00:00:00 Completed [facility] TDAP 2021-04-22 00:00:00 Completed [facility] Influenza Virus Vaccine Quad IM, Preserv and ABX Free 6 MO-64 YRS 2021-04-22 00:00:00 Completed [facility] TDAP 2021-04-22 00:00:00 Completed [facility] Influenza Virus Vaccine Quad IM, Preserv and ABX Free 6 MO-64 YRS 2021-04-22 00:00:00 Completed [facility] TDAP 2021-04-22 00:00:00 Completed [facility] Influenza Virus Vaccine Quad IM, Preserv and ABX Free 6 MO-64 YRS 2021-04-22 00:00:00 Completed [facility] TDAP 2021-04-22 00:00:00 Completed [facility] Influenza Virus Vaccine Quad IM, Preserv and ABX Free 6 MO-64 YRS 2021-04-22 00:00:00 Completed [facility] TDAP 2021-04-22 00:00:00 Completed [facility] Influenza Virus Vaccine Quad IM, Preserv and ABX Free 6 MO-64 YRS 2021-04-22 00:00:00 Completed [facility] TDAP 2021-04-22 00:00:00 Completed [facility] Influenza Virus Vaccine Quad IM, Preserv and ABX Free 6 MO-64 YRS 2021-04-22 00:00:00 Completed [facility] TDAP 2021-04-22 00:00:00 Completed [facility] Influenza Virus Vaccine Quad IM, Preserv and ABX Free 6 MO-64 YRS 2021-04-22 00:00:00 Completed [facility] TDAP 2021-04-22 00:00:00 Completed [facility] Influenza Virus Vaccine Quad IM, Preserv and ABX Free 6 MO-64 YRS 2021-04-22 00:00:00 Completed [facility] TDAP 2021-04-22 00:00:00 Completed [facility] Influenza Virus Vaccine Quad IM, Preserv and ABX Free 6 MO-64 YRS 2021-04-22 00:00:00 Completed [facility] TDAP 2021-04-22 00:00:00 Completed [facility] Influenza Virus Vaccine Quad IM, Preserv and ABX Free 6 MO-64 YRS 2021-04-22 00:00:00 Completed [facility] TDAP 2021-04-22 00:00:00 Completed [facility] Influenza Virus Vaccine Quad IM, Preserv and ABX Free 6 MO-64 YRS 2021-04-22 00:00:00 Completed [facility] TDAP 2021-04-22 00:00:00 Completed [facility] Influenza Virus Vaccine Quad IM, Preserv and ABX Free 6 MO-64 YRS 2021-04-22 00:00:00 Completed [facility] TDAP 2021-04-22 00:00:00 Completed [facility] Influenza Virus Vaccine Quad IM, Preserv and ABX Free 6 MO-64 YRS 2021-04-22 00:00:00 Completed [facility] TDAP 2021-04-22 00:00:00 Completed [facility] Influenza Virus Vaccine Quad IM, Preserv and ABX Free 6 MO-64 YRS 2021-04-22 00:00:00 Completed [facility] TDAP 2021-04-22 00:00:00 Completed [facility] Influenza Virus Vaccine Quad IM, Preserv and ABX Free 6 MO-64 YRS 2021-04-22 00:00:00 Completed [facility] TDAP 2021-04-22 00:00:00 Completed [facility] Influenza Virus Vaccine Quad IM, Preserv and ABX Free 6 MO-64 YRS 2021-04-22 00:00:00 Completed [facility] TDAP 2021-04-22 00:00:00 Completed [facility] Influenza Virus Vaccine Quad IM, Preserv and ABX Free 6 MO-64 YRS 2021-04-22 00:00:00 Completed [facility] TDAP 2021-04-22 00:00:00 Completed [facility] Influenza Virus Vaccine Quad IM, Preserv and ABX Free 6 MO-64 YRS 2021-04-22 00:00:00 Completed [facility] TDAP 2021-04-22 00:00:00 Completed [facility] Influenza Virus Vaccine Quad IM, Preserv and ABX Free 6 MO-64 YRS 2021-04-22 00:00:00 Completed [facility] TDAP 2021-04-22 00:00:00 Completed [facility] Influenza Virus Vaccine Quad IM, Preserv and ABX Free 6 MO-64 YRS 2021-04-22 00:00:00 Completed [facility] TDAP 2021-04-22 00:00:00 Completed [facility] Influenza Virus Vaccine Quad IM, Preserv and ABX Free 6 MO-64 YRS 2021-04-22 00:00:00 Completed [facility] TDAP 2021-04-22 00:00:00 Completed [facility] Influenza Virus Vaccine Quad IM, Preserv and ABX Free 6 MO-64 YRS 2021-04-22 00:00:00 Completed [facility] TDAP 2021-04-22 00:00:00 Completed [facility] Influenza Virus Vaccine Quad IM, Preserv and ABX Free 6 MO-64 YRS 2021-04-22 00:00:00 Completed [facility] TDAP 2021-04-22 00:00:00 Completed [facility] Influenza Virus Vaccine Quad IM, Preserv and ABX Free 6 MO-64 YRS 2021-04-22 00:00:00 Completed [facility] TDAP 2021-04-22 00:00:00 Completed [facility] Influenza Virus Vaccine Quad IM, Preserv and ABX Free 6 MO-64 YRS 2021-04-22 00:00:00 Completed [facility] TDAP 2021-04-22 00:00:00 Completed [facility] Influenza Virus Vaccine Quad IM, Preserv and ABX Free 6 MO-64 YRS 2021-04-22 00:00:00 Completed [facility] TDAP 2021-04-22 00:00:00 Completed [facility] Influenza Virus Vaccine Quad IM, Preserv and ABX Free 6 MO-64 YRS (FLUCELVAX) 2021-04-22 00:00:00 Completed [facility] TDAP 2021-04-22 00:00:00 Completed [facility] Influenza Virus Vaccine Quad IM, Preserv and ABX Free 6 MO-64 YRS (FLUCELVAX) 2021-04-22 00:00:00 Completed [facility] TDAP 2021-04-22 00:00:00 Completed [facility] Influenza Virus Vaccine Quad IM, Preserv and ABX Free 6 MO-64 YRS (FLUCELVAX) 2021-04-22 00:00:00 Completed [facility] TDAP 2021-04-22 00:00:00 Completed [facility] Influenza Virus Vaccine Quad IM, Preserv and ABX Free 6 MO-64 YRS (FLUCELVAX) 2021-04-22 00:00:00 Completed [facility] TDAP 2021-04-22 00:00:00 Completed Meningococcal Polysaccharide (groups A, C, Y and W-135) conjugate vaccine (MCV4P) 2021-02-12 00:00:00 Completed [facility] Meningococcal Polysaccharide (groups A, C, Y and W-135) conjugate vaccine (MCV4P) 2021-02-12 00:00:00 Completed [facility] Meningococcal Polysaccharide (groups A, C, Y and W-135) conjugate vaccine (MCV4P) 2021-02-12 00:00:00 Completed [facility] Meningococcal Polysaccharide (groups A, C, Y and W-135) conjugate vaccine (MCV4P) 2021-02-12 00:00:00 Completed [facility] Meningococcal Polysaccharide (groups A, C, Y and W-135) conjugate vaccine (MCV4P) 2021-02-12 00:00:00 Completed [facility] Meningococcal Polysaccharide (groups A, C, Y and W-135) conjugate vaccine (MCV4P) 2021-02-12 00:00:00 Completed [facility] Meningococcal Polysaccharide (groups A, C, Y and W-135) conjugate vaccine (MCV4P) 2021-02-12 00:00:00 Completed [facility] Meningococcal Polysaccharide (groups A, C, Y and W-135) conjugate vaccine (MCV4P) 2021-02-12 00:00:00 Completed [facility] Meningococcal Polysaccharide (groups A, C, Y and W-135) conjugate vaccine (MCV4P) 2021-02-12 00:00:00 Completed [facility] Meningococcal Polysaccharide (groups A, C, Y and W-135) conjugate vaccine (MCV4P) 2021-02-12 00:00:00 Completed [facility] Meningococcal Polysaccharide (groups A, C, Y and W-135) conjugate vaccine (MCV4P) 2021-02-12 00:00:00 Completed [facility] Meningococcal Polysaccharide (groups A, C, Y and W-135) conjugate vaccine (MCV4P) 2021-02-12 00:00:00 Completed [facility] Meningococcal Polysaccharide (groups A, C, Y and W-135) conjugate vaccine (MCV4P) 2021-02-12 00:00:00 Completed [facility] Meningococcal Polysaccharide (groups A, C, Y and W-135) conjugate vaccine (MCV4P) 2021-02-12 00:00:00 Completed [facility] Meningococcal Polysaccharide (groups A, C, Y and W-135) conjugate vaccine (MCV4P) 2021-02-12 00:00:00 Completed [facility] Meningococcal Polysaccharide (groups A, C, Y and W-135) conjugate vaccine (MCV4P) 2021-02-12 00:00:00 Completed [facility] Meningococcal Polysaccharide (groups A, C, Y and W-135) conjugate vaccine (MCV4P) 2021-02-12 00:00:00 Completed [facility] Meningococcal Polysaccharide (groups A, C, Y and W-135) conjugate vaccine (MCV4P) 2021-02-12 00:00:00 Completed [facility] Meningococcal Polysaccharide (groups A, C, Y and W-135) conjugate vaccine (MCV4P) 2021-02-12 00:00:00 Completed [facility] Meningococcal Polysaccharide (groups A, C, Y and W-135) conjugate vaccine (MCV4P) 2021-02-12 00:00:00 Completed [facility] Meningococcal Polysaccharide (groups A, C, Y and W-135) conjugate vaccine (MCV4P) 2021-02-12 00:00:00 Completed [facility] Meningococcal Polysaccharide (groups A, C, Y and W-135) conjugate vaccine (MCV4P) 2021-02-12 00:00:00 Completed [facility] Meningococcal Polysaccharide (groups A, C, Y and W-135) conjugate vaccine (MCV4P) 2021-02-12 00:00:00 Completed [facility] Meningococcal Polysaccharide (groups A, C, Y and W-135) conjugate vaccine (MCV4P) 2021-02-12 00:00:00 Completed [facility] Meningococcal Polysaccharide (groups A, C, Y and W-135) conjugate vaccine (MCV4P) 2021-02-12 00:00:00 Completed [facility] Meningococcal Polysaccharide (groups A, C, Y and W-135) conjugate vaccine (MCV4P) 2021-02-12 00:00:00 Completed [facility] Meningococcal Polysaccharide (groups A, C, Y and W-135) conjugate vaccine (MCV4P) 2021-02-12 00:00:00 Completed [facility] Meningococcal Polysaccharide (groups A, C, Y and W-135) conjugate vaccine (MCV4P) 2021-02-12 00:00:00 Completed [facility] Meningococcal Polysaccharide (groups A, C, Y and W-135) conjugate vaccine (MCV4P) 2021-02-12 00:00:00 Completed [facility] Meningococcal Polysaccharide (groups A, C, Y and W-135) conjugate vaccine (MCV4P) 2021-02-12 00:00:00 Completed SARS-COV-2 COVID-19 PFIZER VACCINE 2020-09-19 00:00:00 Completed [facility] SARS-COV-2 COVID-19 PFIZER VACCINE 2020-09-19 00:00:00 Completed [facility] SARS-COV-2 COVID-19 PFIZER VACCINE 2020-09-19 00:00:00 Completed [facility] SARS-COV-2 COVID-19 PFIZER VACCINE 2020-09-19 00:00:00 Completed [facility] SARS-COV-2 COVID-19 PFIZER VACCINE 2020-09-19 00:00:00 Completed [facility] SARS-COV-2 COVID-19 PFIZER VACCINE 2020-09-19 00:00:00 Completed [facility] SARS-COV-2 COVID-19 PFIZER VACCINE 2020-09-19 00:00:00 Completed [facility] SARS-COV-2 COVID-19 PFIZER VACCINE 2020-09-19 00:00:00 Completed [facility] SARS-COV-2 COVID-19 PFIZER VACCINE 2020-09-19 00:00:00 Completed [facility] SARS-COV-2 COVID-19 PFIZER VACCINE 2020-09-19 00:00:00 Completed [facility] SARS-COV-2 COVID-19 PFIZER VACCINE 2020-09-19 00:00:00 Completed [facility] SARS-COV-2 COVID-19 PFIZER VACCINE 2020-09-19 00:00:00 Completed [facility] SARS-COV-2 COVID-19 PFIZER VACCINE 2020-09-19 00:00:00 Completed [facility] SARS-COV-2 COVID-19 PFIZER VACCINE 2020-09-19 00:00:00 Completed [facility] SARS-COV-2 COVID-19 PFIZER VACCINE 2020-09-19 00:00:00 Completed [facility] SARS-COV-2 COVID-19 PFIZER VACCINE 2020-09-19 00:00:00 Completed [facility] SARS-COV-2 COVID-19 PFIZER VACCINE 2020-09-19 00:00:00 Completed [facility] SARS-COV-2 COVID-19 PFIZER VACCINE 2020-09-19 00:00:00 Completed [facility] SARS-COV-2 COVID-19 PFIZER VACCINE 2020-09-19 00:00:00 Completed [facility] SARS-COV-2 COVID-19 PFIZER VACCINE 2020-09-19 00:00:00 Completed [facility] SARS-COV-2 COVID-19 PFIZER VACCINE 2020-09-19 00:00:00 Completed [facility] SARS-COV-2 COVID-19 PFIZER VACCINE 2020-09-19 00:00:00 Completed [facility] SARS-COV-2 COVID-19 PFIZER VACCINE 2020-09-19 00:00:00 Completed [facility] SARS-COV-2 COVID-19 PFIZER VACCINE 2020-09-19 00:00:00 Completed [facility] SARS-COV-2 COVID-19 PFIZER VACCINE 2020-09-19 00:00:00 Completed [facility] SARS-COV-2 COVID-19 PFIZER VACCINE 2020-09-19 00:00:00 Completed [facility] SARS-COV-2 COVID-19 PFIZER VACCINE 2020-09-19 00:00:00 Completed [facility] SARS-COV-2 COVID-19 PFIZER VACCINE 2020-09-19 00:00:00 Completed [facility] SARS-COV-2 COVID-19 PFIZER VACCINE 2020-09-19 00:00:00 Completed [facility] SARS-COV-2 COVID-19 PFIZER VACCINE 2020-09-19 00:00:00 Completed [facility] SARS-COV-2 COVID-19 PFIZER VACCINE 2020-09-19 00:00:00 Completed [facility] SARS-COV-2 COVID-19 PFIZER VACCINE 2020-09-19 00:00:00 Completed [facility] SARS-COV-2 COVID-19 PFIZER VACCINE 2020-09-19 00:00:00 Completed [facility] SARS-COV-2 COVID-19 PFIZER VACCINE 2020-09-19 00:00:00 Completed [facility] SARS-COV-2 COVID-19 PFIZER VACCINE 2020-09-19 00:00:00 Completed [facility] SARS-COV-2 COVID-19 PFIZER VACCINE 2020-09-19 00:00:00 Completed [facility] SARS-COV-2 COVID-19 PFIZER VACCINE 2020-09-19 00:00:00 Completed [facility] SARS-COV-2 COVID-19 PFIZER VACCINE 2020-09-19 00:00:00 Completed [facility] SARS-COV-2 COVID-19 PFIZER VACCINE 2020-09-19 00:00:00 Completed [facility] SARS-COV-2 COVID-19 PFIZER VACCINE 2020-09-19 00:00:00 Completed [facility] SARS-COV-2 COVID-19 PFIZER VACCINE 2020-09-19 00:00:00 Completed [facility] SARS-COV-2 COVID-19 PFIZER VACCINE 2020-09-19 00:00:00 Completed [facility] SARS-COV-2 COVID-19 PFIZER VACCINE 2020-09-19 00:00:00 Completed [facility] SARS-COV-2 COVID-19 PFIZER VACCINE 2020-09-19 00:00:00 Completed [facility] SARS-COV-2 COVID-19 PFIZER VACCINE 2020-09-19 00:00:00 Completed [facility] SARS-COV-2 COVID-19 PFIZER VACCINE 2020-09-19 00:00:00 Completed [facility] SARS-COV-2 COVID-19 PFIZER VACCINE 2020-09-19 00:00:00 Completed [facility] SARS-COV-2 COVID-19 PFIZER VACCINE 2020-08-29 00:00:00 Completed [facility] SARS-COV-2 COVID-19 PFIZER VACCINE 2020-08-29 00:00:00 Completed [facility] SARS-COV-2 COVID-19 PFIZER VACCINE 2020-08-29 00:00:00 Completed [facility] SARS-COV-2 COVID-19 PFIZER VACCINE 2020-08-29 00:00:00 Completed [facility] SARS-COV-2 COVID-19 PFIZER VACCINE 2020-08-29 00:00:00 Completed [facility] SARS-COV-2 COVID-19 PFIZER VACCINE 2020-08-29 00:00:00 Completed [facility] SARS-COV-2 COVID-19 PFIZER VACCINE 2020-08-29 00:00:00 Completed [facility] SARS-COV-2 COVID-19 PFIZER VACCINE 2020-08-29 00:00:00 Completed [facility] SARS-COV-2 COVID-19 PFIZER VACCINE 2020-08-29 00:00:00 Completed [facility] SARS-COV-2 COVID-19 PFIZER VACCINE 2020-08-29 00:00:00 Completed [facility] SARS-COV-2 COVID-19 PFIZER VACCINE 2020-08-29 00:00:00 Completed [facility] SARS-COV-2 COVID-19 PFIZER VACCINE 2020-08-29 00:00:00 Completed [facility] SARS-COV-2 COVID-19 PFIZER VACCINE 2020-08-29 00:00:00 Completed [facility] SARS-COV-2 COVID-19 PFIZER VACCINE 2020-08-29 00:00:00 Completed [facility] SARS-COV-2 COVID-19 PFIZER VACCINE 2020-08-29 00:00:00 Completed [facility] SARS-COV-2 COVID-19 PFIZER VACCINE 2020-08-29 00:00:00 Completed [facility] SARS-COV-2 COVID-19 PFIZER VACCINE 2020-08-29 00:00:00 Completed [facility] SARS-COV-2 COVID-19 PFIZER VACCINE 2020-08-29 00:00:00 Completed [facility] SARS-COV-2 COVID-19 PFIZER VACCINE 2020-08-29 00:00:00 Completed [facility] SARS-COV-2 COVID-19 PFIZER VACCINE 2020-08-29 00:00:00 Completed [facility] SARS-COV-2 COVID-19 PFIZER VACCINE 2020-08-29 00:00:00 Completed [facility] SARS-COV-2 COVID-19 PFIZER VACCINE 2020-08-29 00:00:00 Completed [facility] SARS-COV-2 COVID-19 PFIZER VACCINE 2020-08-29 00:00:00 Completed [facility] SARS-COV-2 COVID-19 PFIZER VACCINE 2020-08-29 00:00:00 Completed [facility] SARS-COV-2 COVID-19 PFIZER VACCINE 2020-08-29 00:00:00 Completed [facility] SARS-COV-2 COVID-19 PFIZER VACCINE 2020-08-29 00:00:00 Completed [facility] SARS-COV-2 COVID-19 PFIZER VACCINE 2020-08-29 00:00:00 Completed [facility] SARS-COV-2 COVID-19 PFIZER VACCINE 2020-08-29 00:00:00 Completed [facility] SARS-COV-2 COVID-19 PFIZER VACCINE 2020-08-29 00:00:00 Completed [facility] SARS-COV-2 COVID-19 PFIZER VACCINE 2020-08-29 00:00:00 Completed [facility] SARS-COV-2 COVID-19 PFIZER VACCINE 2020-08-29 00:00:00 Completed [facility] SARS-COV-2 COVID-19 PFIZER VACCINE 2020-08-29 00:00:00 Completed [facility] SARS-COV-2 COVID-19 PFIZER VACCINE 2020-08-29 00:00:00 Completed [facility] SARS-COV-2 COVID-19 PFIZER VACCINE 2020-08-29 00:00:00 Completed [facility] SARS-COV-2 COVID-19 PFIZER VACCINE 2020-08-29 00:00:00 Completed [facility] SARS-COV-2 COVID-19 PFIZER VACCINE 2020-08-29 00:00:00 Completed [facility] SARS-COV-2 COVID-19 PFIZER VACCINE 2020-08-29 00:00:00 Completed [facility] SARS-COV-2 COVID-19 PFIZER VACCINE 2020-08-29 00:00:00 Completed [facility] SARS-COV-2 COVID-19 PFIZER VACCINE 2020-08-29 00:00:00 Completed [facility] SARS-COV-2 COVID-19 PFIZER VACCINE 2020-08-29 00:00:00 Completed [facility] SARS-COV-2 COVID-19 PFIZER VACCINE 2020-08-29 00:00:00 Completed [facility] SARS-COV-2 COVID-19 PFIZER VACCINE 2020-08-29 00:00:00 Completed [facility] SARS-COV-2 COVID-19 PFIZER VACCINE 2020-08-29 00:00:00 Completed [facility] SARS-COV-2 COVID-19 PFIZER VACCINE 2020-08-29 00:00:00 Completed [facility] SARS-COV-2 COVID-19 PFIZER VACCINE 2020-08-29 00:00:00 Completed [facility] SARS-COV-2 COVID-19 PFIZER VACCINE 2020-08-29 00:00:00 Completed [facility] SARS-COV-2 COVID-19 PFIZER VACCINE 2020-08-29 00:00:00 Completed [facility] SARS-COV-2 COVID-19 PFIZER VACCINE Unknown Completed [facility] Influenza Virus Vaccine Quad IM, Preserv and ABX Free 6 MO-64 YRS (FLUCELVAX) Unknown Completed [facility] TDAP Unknown Completed [facility] Meningococcal Polysaccharide (groups A, C, Y and W-135) conjugate vaccine (MCV4P) Unknown Completed [facility] SARS-COV-2 COVID-19 PFIZER VACCINE Unknown Completed [facility] Influenza Virus Vaccine Quad IM, Preserv and ABX Free 6 MO-64 YRS (FLUCELVAX) Unknown Completed [facility] TDAP Unknown Completed [facility] Meningococcal Polysaccharide (groups A, C, Y and W-135) conjugate vaccine (MCV4P) Unknown Completed [facility] SARS-COV-2 COVID-19 PFIZER VACCINE Unknown Completed [facility] Influenza Virus Vaccine Quad IM, Preserv and ABX Free 6 MO-64 YRS (FLUCELVAX) Unknown Completed [facility] TDAP Unknown Completed [facility] Meningococcal Polysaccharide (groups A, C, Y and W-135) conjugate vaccine (MCV4P) Unknown Completed [facility] SARS-COV-2 COVID-19 PFIZER VACCINE Unknown Completed [facility] Influenza Virus Vaccine Quad IM, Preserv and ABX Free 6 MO-64 YRS (FLUCELVAX) Unknown Completed [facility] TDAP Unknown Completed [facility] Meningococcal Polysaccharide (groups A, C, Y and W-135) conjugate vaccine (MCV4P) Unknown Completed [facility] SARS-COV-2 COVID-19 PFIZER VACCINE Unknown Completed [facility] Influenza Virus Vaccine Quad IM, Preserv and ABX Free 6 MO-64 YRS (FLUCELVAX) Unknown Completed [facility] TDAP Unknown Completed [facility] Meningococcal Polysaccharide (groups A, C, Y and W-135) conjugate vaccine (MCV4P) Unknown Completed [facility] SARS-COV-2 COVID-19 PFIZER VACCINE Unknown Completed [facility] Influenza Virus Vaccine Quad IM, Preserv and ABX Free 6 MO-64 YRS (FLUCELVAX) Unknown Completed [facility] TDAP Unknown Completed [facility] Meningococcal Polysaccharide (groups A, C, Y and W-135) conjugate vaccine (MCV4P) Unknown Completed [facility] SARS-COV-2 COVID-19 PFIZER VACCINE Unknown Completed [facility] Influenza Virus Vaccine Quad IM, Preserv and ABX Free 6 MO-64 YRS (FLUCELVAX) Unknown Completed [facility] TDAP Unknown Completed [facility] Meningococcal Polysaccharide (groups A, C, Y and W-135) conjugate vaccine (MCV4P) Unknown Completed [facility] SARS-COV-2 COVID-19 PFIZER VACCINE Unknown Completed [facility] Influenza Virus Vaccine Quad IM, Preserv and ABX Free 6 MO-64 YRS (FLUCELVAX) Unknown Completed [facility] TDAP Unknown Completed [facility] Meningococcal Polysaccharide (groups A, C, Y and W-135) conjugate vaccine (MCV4P) Unknown Completed [facility] SARS-COV-2 COVID-19 PFIZER VACCINE Unknown Completed [facility] Influenza Virus Vaccine Quad IM, Preserv and ABX Free 6 MO-64 YRS (FLUCELVAX) Unknown Completed [facility] TDAP Unknown Completed [facility] Meningococcal Polysaccharide (groups A, C, Y and W-135) conjugate vaccine (MCV4P) Unknown Completed [facility] TDAP Unknown Completed [facility] Meningococcal Polysaccharide (groups A, C, Y and W-135) conjugate vaccine (MCV4P) Unknown Completed [facility] SARS-COV-2 COVID-19 PFIZER VACCINE Unknown Completed [facility] Influenza Virus Vaccine Quad IM, Preserv and ABX Free 6 MO-64 YRS (FLUCELVAX) Unknown Completed [facility] SARS-COV-2 COVID-19 PFIZER VACCINE Unknown Completed [facility] Influenza Virus Vaccine Quad IM, Preserv and ABX Free 6 MO-64 YRS (FLUCELVAX) Unknown Completed [facility] TDAP Unknown Completed [facility] Meningococcal Polysaccharide (groups A, C, Y and W-135) conjugate vaccine (MCV4P) Unknown Completed [facility] SARS-COV-2 COVID-19 PFIZER VACCINE Unknown Completed [facility] Influenza Virus Vaccine Quad IM, Preserv and ABX Free 6 MO-64 YRS (FLUCELVAX) Unknown Completed [facility] TDAP Unknown Completed [facility] Meningococcal Polysaccharide (groups A, C, Y and W-135) conjugate vaccine (MCV4P) Unknown Completed [facility] SARS-COV-2 COVID-19 PFIZER VACCINE Unknown Completed [facility] Influenza Virus Vaccine Quad IM, Preserv and ABX Free 6 MO-64 YRS (FLUCELVAX) Unknown Completed [facility] TDAP Unknown Completed [facility] Meningococcal Polysaccharide (groups A, C, Y and W-135) conjugate vaccine (MCV4P) Unknown Completed [facility] SARS-COV-2 COVID-19 PFIZER VACCINE Unknown Completed [facility] Influenza Virus Vaccine Quad IM, Preserv and ABX Free 6 MO-64 YRS (FLUCELVAX) Unknown Completed [facility] TDAP Unknown Completed [facility] Meningococcal Polysaccharide (groups A, C, Y and W-135) conjugate vaccine (MCV4P) Unknown Completed [facility] SARS-COV-2 COVID-19 PFIZER VACCINE Unknown Completed [facility] Influenza Virus Vaccine Quad IM, Preserv and ABX Free 6 MO-64 YRS (FLUCELVAX) Unknown Completed [facility] TDAP Unknown Completed [facility] Meningococcal Polysaccharide (groups A, C, Y and W-135) conjugate vaccine (MCV4P) Unknown Completed [facility] SARS-COV-2 COVID-19 PFIZER VACCINE Unknown Completed [facility] Influenza Virus Vaccine Quad IM, Preserv and ABX Free 6 MO-64 YRS (FLUCELVAX) Unknown Completed [facility] TDAP Unknown Completed [facility] Meningococcal Polysaccharide (groups A, C, Y and W-135) conjugate vaccine (MCV4P) Unknown Completed [facility] SARS-COV-2 COVID-19 PFIZER VACCINE Unknown Completed [facility] Influenza Virus Vaccine Quad IM, Preserv and ABX Free 6 MO-64 YRS (FLUCELVAX) Unknown Completed [facility] TDAP Unknown Completed [facility] Meningococcal Polysaccharide (groups A, C, Y and W-135) conjugate vaccine (MCV4P) Unknown Completed [facility] SARS-COV-2 COVID-19 PFIZER VACCINE Unknown Completed [facility] Influenza Virus Vaccine Quad IM, Preserv and ABX Free 6 MO-64 YRS (FLUCELVAX) Unknown Completed [facility] TDAP Unknown Completed [facility] Meningococcal Polysaccharide (groups A, C, Y and W-135) conjugate vaccine (MCV4P) Unknown Completed [facility] SARS-COV-2 COVID-19 PFIZER VACCINE Unknown Completed [facility] Influenza Virus Vaccine Quad IM, Preserv and ABX Free 6 MO-64 YRS (FLUCELVAX) Unknown Completed [facility] TDAP Unknown Completed [facility] Meningococcal Polysaccharide (groups A, C, Y and W-135) conjugate vaccine (MCV4P) Unknown Completed [facility] SARS-COV-2 COVID-19 PFIZER VACCINE Unknown Completed [facility] Influenza Virus Vaccine Quad IM, Preserv and ABX Free 6 MO-64 YRS (FLUCELVAX) Unknown Completed [facility] TDAP Unknown Completed [facility] Meningococcal Polysaccharide (groups A, C, Y and W-135) conjugate vaccine (MCV4P) Unknown Completed [facility] SARS-COV-2 COVID-19 PFIZER VACCINE Unknown Completed [facility] Influenza Virus Vaccine Quad IM, Preserv and ABX Free 6 MO-64 YRS (FLUCELVAX) Unknown Completed [facility] TDAP Unknown Completed [facility] Meningococcal Polysaccharide (groups A, C, Y and W-135) conjugate vaccine (MCV4P) Unknown Completed [facility] SARS-COV-2 COVID-19 PFIZER VACCINE Unknown Completed [facility] Influenza Virus Vaccine Quad IM, Preserv and ABX Free 6 MO-64 YRS (FLUCELVAX) Unknown Completed [facility] TDAP Unknown Completed [facility] Meningococcal Polysaccharide (groups A, C, Y and W-135) conjugate vaccine (MCV4P) Unknown Completed [facility] SARS-COV-2 COVID-19 PFIZER VACCINE Unknown Completed [facility] Influenza Virus Vaccine Quad IM, Preserv and ABX Free 6 MO-64 YRS (FLUCELVAX) Unknown Completed [facility] TDAP Unknown Completed [facility] Meningococcal Polysaccharide (groups A, C, Y and W-135) conjugate vaccine (MCV4P) Unknown Completed [facility] SARS-COV-2 COVID-19 PFIZER VACCINE Unknown Completed [facility] Influenza Virus Vaccine Quad IM, Preserv and ABX Free 6 MO-64 YRS (FLUCELVAX) Unknown Completed [facility] TDAP Unknown Completed [facility] Meningococcal Polysaccharide (groups A, C, Y and W-135) conjugate vaccine (MCV4P) Unknown Completed [facility] TDAP Unknown Completed [facility] Meningococcal Polysaccharide (groups A, C, Y and W-135) conjugate vaccine (MCV4P) Unknown Completed [facility] SARS-COV-2 COVID-19 PFIZER VACCINE Unknown Completed [facility] Influenza Virus Vaccine Quad IM, Preserv and ABX Free 6 MO-64 YRS (FLUCELVAX) Unknown Completed [facility] TDAP Unknown Completed [facility] Meningococcal Polysaccharide (groups A, C, Y and W-135) conjugate vaccine (MCV4P) Unknown Completed [facility] SARS-COV-2 COVID-19 PFIZER VACCINE Unknown Completed [facility] Influenza Virus Vaccine Quad IM, Preserv and ABX Free 6 MO-64 YRS (FLUCELVAX) Unknown Completed [facility] SARS-COV-2 COVID-19 PFIZER VACCINE Unknown Completed [facility] Influenza Virus Vaccine Quad IM, Preserv and ABX Free 6 MO-64 YRS (FLUCELVAX) Unknown Completed [facility] TDAP Unknown Completed [facility] Meningococcal Polysaccharide (groups A, C, Y and W-135) conjugate vaccine (MCV4P) Unknown Completed [facility] SARS-COV-2 COVID-19 PFIZER VACCINE Unknown Completed [facility] Influenza Virus Vaccine Quad IM, Preserv and ABX Free 6 MO-64 YRS (FLUCELVAX) Unknown Completed [facility] TDAP Unknown Completed [facility] Meningococcal Polysaccharide (groups A, C, Y and W-135) conjugate vaccine (MCV4P) Unknown Completed [facility] SARS-COV-2 COVID-19 PFIZER VACCINE Unknown Completed [facility] Influenza Virus Vaccine Quad IM, Preserv and ABX Free 6 MO-64 YRS (FLUCELVAX) Unknown Completed [facility] TDAP Unknown Completed [facility] Meningococcal Polysaccharide (groups A, C, Y and W-135) conjugate vaccine (MCV4P) Unknown Completed [facility] SARS-COV-2 COVID-19 PFIZER VACCINE Unknown Completed [facility] Influenza Virus Vaccine Quad IM, Preserv and ABX Free 6 MO-64 YRS (FLUCELVAX) Unknown Completed [facility] TDAP Unknown Completed [facility] Meningococcal Polysaccharide (groups A, C, Y and W-135) conjugate vaccine (MCV4P) Unknown Completed [facility] SARS-COV-2 COVID-19 PFIZER VACCINE Unknown Completed [facility] Influenza Virus Vaccine Quad IM, Preserv and ABX Free 6 MO-64 YRS (FLUCELVAX) Unknown Completed [facility] TDAP Unknown Completed [facility] Meningococcal Polysaccharide (groups A, C, Y and W-135) conjugate vaccine (MCV4P) Unknown [facility] [facility] Completed [facility] Meningococcal Polysaccharide (groups A, C, Y and W-135) conjugate vaccine (MCV4P) Unknown Completed [facility] SARS-COV-2 COVID-19 PFIZER VACCINE Unknown Completed [facility] Influenza Virus Vaccine Quad IM, Preserv and ABX Free 6 MO-64 YRS (FLUCELVAX) Unknown Completed [facility] TDAP Unknown Completed [facility] Meningococcal Polysaccharide (groups A, C, Y and W-135) conjugate vaccine (MCV4P) Unknown Completed [facility] SARS-COV-2 COVID-19 PFIZER VACCINE Unknown Completed [facility] Influenza Virus Vaccine Quad IM, Preserv and ABX Free 6 MO-64 YRS (FLUCELVAX) Unknown Completed [facility] SARS-COV-2 COVID-19 PFIZER VACCINE Unknown Completed [facility] Influenza Virus Vaccine Quad IM, Preserv and ABX Free 6 MO-64 YRS (FLUCELVAX) Unknown Completed [facility] TDAP Unknown Completed [facility] Meningococcal Polysaccharide (groups A, C, Y and W-135) conjugate vaccine (MCV4P) Unknown Completed [facility] SARS-COV-2 COVID-19 PFIZER VACCINE Unknown Completed [facility] Influenza Virus Vaccine Quad IM, Preserv and ABX Free 6 MO-64 YRS (FLUCELVAX) Unknown Completed [facility] TDAP Unknown Completed [facility] Meningococcal Polysaccharide (groups A, C, Y and W-135) conjugate vaccine (MCV4P) Unknown Completed [facility] SARS-COV-2 COVID-19 PFIZER VACCINE Unknown Completed [facility] Influenza Virus Vaccine Quad IM, Preserv and ABX Free 6 MO-64 YRS (FLUCELVAX) Unknown Completed [facility] TDAP Unknown Completed [facility] Meningococcal Polysaccharide (groups A, C, Y and W-135) conjugate vaccine (MCV4P) Unknown Completed [facility] SARS-COV-2 COVID-19 PFIZER VACCINE Unknown Completed [facility] Influenza Virus Vaccine Quad IM, Preserv and ABX Free 6 MO-64 YRS (FLUCELVAX) Unknown Completed [facility] TDAP Unknown Completed [facility] Meningococcal Polysaccharide (groups A, C, Y and W-135) conjugate vaccine (MCV4P) Unknown Completed [facility] TDAP Unknown Completed [facility] Meningococcal Polysaccharide (groups A, C, Y and W-135) conjugate vaccine (MCV4P) Unknown Completed [facility] SARS-COV-2 COVID-19 PFIZER VACCINE Unknown Completed [facility] Influenza Virus Vaccine Quad IM, Preserv and ABX Free 6 MO-64 YRS (FLUCELVAX) Unknown Completed [facility] SARS-COV-2 COVID-19 PFIZER VACCINE Unknown Completed [facility] Influenza Virus Vaccine Quad IM, Preserv and ABX Free 6 MO-64 YRS (FLUCELVAX) Unknown Completed [facility] TDAP Unknown Completed [facility] Meningococcal Polysaccharide (groups A, C, Y and W-135) conjugate vaccine (MCV4P) Unknown Completed [facility] TDAP Unknown Completed [facility] Meningococcal Polysaccharide (groups A, C, Y and W-135) conjugate vaccine (MCV4P) Unknown Completed [facility] SARS-COV-2 COVID-19 PFIZER VACCINE Unknown Completed [facility] Influenza Virus Vaccine Quad IM, Preserv and ABX Free 6 MO-64 YRS (FLUCELVAX) Unknown Completed [facility] SARS-COV-2 COVID-19 PFIZER VACCINE Unknown Completed [facility] Influenza Virus Vaccine Quad IM, Preserv and ABX Free 6 MO-64 YRS (FLUCELVAX) Unknown Completed [facility] TDAP Unknown Completed [facility] Meningococcal Polysaccharide (groups A, C, Y and W-135) conjugate vaccine (MCV4P) Unknown Completed [facility] SARS-COV-2 COVID-19 PFIZER VACCINE Unknown Completed [facility] Influenza Virus Vaccine Quad IM, Preserv and ABX Free 6 MO-64 YRS (FLUCELVAX) Unknown Completed [facility] TDAP Unknown Completed [facility] Meningococcal Polysaccharide (groups A, C, Y and W-135) conjugate vaccine (MCV4P) Unknown Completed [facility] SARS-COV-2 COVID-19 PFIZER VACCINE Unknown Completed [facility] Influenza Virus Vaccine Quad IM, Preserv and ABX Free 6 MO-64 YRS (FLUCELVAX) Unknown Completed [facility] TDAP Unknown Completed [facility] Meningococcal Polysaccharide (groups A, C, Y and W-135) conjugate vaccine (MCV4P) Unknown Completed [facility] SARS-COV-2 COVID-19 PFIZER VACCINE Unknown Completed [facility] Influenza Virus Vaccine Quad IM, Preserv and ABX Free 6 MO-64 YRS (FLUCELVAX) Unknown Completed [facility] TDAP Unknown Completed [facility] Meningococcal Polysaccharide (groups A, C, Y and W-135) conjugate vaccine (MCV4P) Unknown Completed [facility] SARS-COV-2 COVID-19 PFIZER VACCINE Unknown Completed [facility] Influenza Virus Vaccine Quad IM, Preserv and ABX Free 6 MO-64 YRS (FLUCELVAX) Unknown Completed [facility] TDAP Unknown Completed [facility] Meningococcal Polysaccharide (groups A, C, Y and W-135) conjugate vaccine (MCV4P) Unknown Completed [facility] SARS-COV-2 COVID-19 PFIZER VACCINE Unknown Completed [facility] Influenza Virus Vaccine Quad IM, Preserv and ABX Free 6 MO-64 YRS (FLUCELVAX) Unknown Completed [facility] TDAP Unknown Completed [facility] Meningococcal Polysaccharide (groups A, C, Y and W-135) conjugate vaccine (MCV4P) Unknown Completed [facility] SARS-COV-2 COVID-19 PFIZER VACCINE Unknown Completed [facility] Influenza Virus Vaccine Quad IM, Preserv and ABX Free 6 MO-64 YRS (FLUCELVAX) Unknown Completed [facility] TDAP Unknown Completed [facility] Meningococcal Polysaccharide (groups A, C, Y and W-135) conjugate vaccine (MCV4P) Unknown Completed [facility] SARS-COV-2 COVID-19 PFIZER VACCINE Unknown Completed [facility] Influenza Virus Vaccine Quad IM, Preserv and ABX Free 6 MO-64 YRS (FLUCELVAX) Unknown Completed [facility] TDAP Unknown Completed [facility] Meningococcal Polysaccharide (groups A, C, Y and W-135) conjugate vaccine (MCV4P) Unknown Completed [facility] TDAP Unknown Completed [facility] Meningococcal Polysaccharide (groups A, C, Y and W-135) conjugate vaccine (MCV4P) Unknown Completed [facility] SARS-COV-2 COVID-19 PFIZER VACCINE Unknown Completed [facility] Influenza Virus Vaccine Quad IM, Preserv and ABX Free 6 MO-64 YRS (FLUCELVAX) Unknown Completed [facility] SARS-COV-2 COVID-19 PFIZER VACCINE Unknown Completed [facility] Influenza Virus Vaccine Quad IM, Preserv and ABX Free 6 MO-64 YRS (FLUCELVAX) Unknown Completed [facility] TDAP Unknown Completed [facility] Meningococcal Polysaccharide (groups A, C, Y and W-135) conjugate vaccine (MCV4P) Unknown Completed [facility] SARS-COV-2 COVID-19 PFIZER VACCINE Unknown Completed [facility] Influenza Virus Vaccine Quad IM, Preserv and ABX Free 6 MO-64 YRS (FLUCELVAX) Unknown Completed [facility] TDAP Unknown Completed [facility] Meningococcal Polysaccharide (groups A, C, Y and W-135) conjugate vaccine (MCV4P) Unknown Completed [facility] SARS-COV-2 COVID-19 PFIZER VACCINE Unknown Completed [facility] Influenza Virus Vaccine Quad IM, Preserv and ABX Free 6 MO-64 YRS (FLUCELVAX) Unknown Completed [facility] TDAP Unknown Completed [facility] Meningococcal Polysaccharide (groups A, C, Y and W-135) conjugate vaccine (MCV4P) Unknown Completed [facility] SARS-COV-2 COVID-19 PFIZER VACCINE Unknown Completed [facility] Influenza Virus Vaccine Quad IM, Preserv and ABX Free 6 MO-64 YRS (FLUCELVAX) Unknown Completed [facility] TDAP Unknown Completed [facility] Meningococcal Polysaccharide (groups A, C, Y and W-135) conjugate vaccine (MCV4P) Unknown Completed [facility] SARS-COV-2 COVID-19 PFIZER VACCINE Unknown Completed [facility] Influenza Virus Vaccine Quad IM, Preserv and ABX Free 6 MO-64 YRS (FLUCELVAX) Unknown Completed [facility] TDAP Unknown Completed [facility] Meningococcal Polysaccharide (groups A, C, Y and W-135) conjugate vaccine (MCV4P) Unknown Completed [facility] SARS-COV-2 COVID-19 PFIZER VACCINE Unknown Completed [facility] Influenza Virus Vaccine Quad IM, Preserv and ABX Free 6 MO-64 YRS (FLUCELVAX) Unknown Completed [facility] TDAP Unknown Completed [facility] Meningococcal Polysaccharide (groups A, C, Y and W-135) conjugate vaccine (MCV4P) Unknown Completed [facility] SARS-COV-2 COVID-19 PFIZER VACCINE Unknown Completed [facility] Influenza Virus Vaccine Quad IM, Preserv and ABX Free 6 MO-64 YRS (FLUCELVAX) Unknown Completed [facility] TDAP Unknown Completed [facility] Meningococcal Polysaccharide (groups A, C, Y and W-135) conjugate vaccine (MCV4P) Unknown Completed [facility] SARS-COV-2 COVID-19 PFIZER VACCINE Unknown Completed [facility] Influenza Virus Vaccine Quad IM, Preserv and ABX Free 6 MO-64 YRS (FLUCELVAX) Unknown Completed [facility] TDAP Unknown Completed [facility] Meningococcal Polysaccharide (groups A, C, Y and W-135) conjugate vaccine (MCV4P) Unknown Completed [facility] SARS-COV-2 COVID-19 PFIZER VACCINE Unknown Completed [facility] Influenza Virus Vaccine Quad IM, Preserv and ABX Free 6 MO-64 YRS (FLUCELVAX) Unknown Completed [facility] TDAP Unknown Completed [facility] Meningococcal Polysaccharide (groups A, C, Y and W-135) conjugate vaccine (MCV4P) Unknown Completed [facility] SARS-COV-2 COVID-19 PFIZER VACCINE Unknown Completed [facility] Influenza Virus Vaccine Quad IM, Preserv and ABX Free 6 MO-64 YRS (FLUCELVAX) Unknown Completed [facility] TDAP Unknown Completed [facility] Meningococcal Polysaccharide (groups A, C, Y and W-135) conjugate vaccine (MCV4P) Unknown Completed [facility] SARS-COV-2 COVID-19 PFIZER VACCINE Unknown Completed [facility] Influenza Virus Vaccine Quad IM, Preserv and ABX Free 6 MO-64 YRS (FLUCELVAX) Unknown Completed [facility] TDAP Unknown Completed [facility] Meningococcal Polysaccharide (groups A, C, Y and W-135) conjugate vaccine (MCV4P) Unknown Completed [facility] SARS-COV-2 COVID-19 PFIZER VACCINE Unknown Completed [facility] Influenza Virus Vaccine Quad IM, Preserv and ABX Free 6 MO-64 YRS (FLUCELVAX) Unknown Completed [facility] TDAP Unknown Completed [facility] Meningococcal Polysaccharide (groups A, C, Y and W-135) conjugate vaccine (MCV4P) Unknown Completed [facility] SARS-COV-2 COVID-19 PFIZER VACCINE Unknown Completed [facility] Influenza Virus Vaccine Quad IM, Preserv and ABX Free 6 MO-64 YRS (FLUCELVAX) Unknown Completed [facility] TDAP Unknown Completed [facility] Meningococcal Polysaccharide (groups A, C, Y and W-135) conjugate vaccine (MCV4P) Unknown Completed [facility] SARS-COV-2 COVID-19 PFIZER VACCINE Unknown Completed [facility] Influenza Virus Vaccine Quad IM, Preserv and ABX Free 6 MO-64 YRS (FLUCELVAX) Unknown Completed [facility] TDAP Unknown Completed [facility] Meningococcal Polysaccharide (groups A, C, Y and W-135) conjugate vaccine (MCV4P) Unknown Completed [facility] SARS-COV-2 COVID-19 PFIZER VACCINE Unknown Completed [facility] Influenza Virus Vaccine Quad IM, Preserv and ABX Free 6 MO-64 YRS (FLUCELVAX) Unknown Completed [facility] TDAP Unknown Completed [facility] Meningococcal Polysaccharide (groups A, C, Y and W-135) conjugate vaccine (MCV4P) Unknown Completed [facility] SARS-COV-2 COVID-19 PFIZER VACCINE Unknown Completed [facility] Influenza Virus Vaccine Quad IM, Preserv and ABX Free 6 MO-64 YRS (FLUCELVAX) Unknown Completed [facility] TDAP Unknown Completed [facility] Meningococcal Polysaccharide (groups A, C, Y and W-135) conjugate vaccine (MCV4P) Unknown Completed [facility] SARS-COV-2 COVID-19 PFIZER VACCINE Unknown Completed [facility] Influenza Virus Vaccine Quad IM, Preserv and ABX Free 6 MO-64 YRS (FLUCELVAX) Unknown Completed [facility] TDAP Unknown Completed [facility] Meningococcal Polysaccharide (groups A, C, Y and W-135) conjugate vaccine (MCV4P) Unknown Completed [facility] SARS-COV-2 COVID-19 PFIZER VACCINE Unknown Completed [facility] Influenza Virus Vaccine Quad IM, Preserv and ABX Free 6 MO-64 YRS (FLUCELVAX) Unknown Completed [facility] TDAP Unknown Completed [facility] Meningococcal Polysaccharide (groups A, C, Y and W-135) conjugate vaccine (MCV4P) Unknown Completed [facility] SARS-COV-2 COVID-19 PFIZER VACCINE Unknown Completed [facility] Influenza Virus Vaccine Quad IM, Preserv and ABX Free 6 MO-64 YRS (FLUCELVAX) Unknown Completed [facility] TDAP Unknown Completed [facility] Meningococcal Polysaccharide (groups A, C, Y and W-135) conjugate vaccine (MCV4P) Unknown Completed [facility] SARS-COV-2 COVID-19 PFIZER VACCINE Unknown Completed [facility] Influenza Virus Vaccine Quad IM, Preserv and ABX Free 6 MO-64 YRS (FLUCELVAX) Unknown Completed [facility] TDAP Unknown Completed [facility] Meningococcal Polysaccharide (groups A, C, Y and W-135) conjugate vaccine (MCV4P) Unknown Completed [facility] SARS-COV-2 COVID-19 PFIZER VACCINE Unknown Completed [facility] Influenza Virus Vaccine Quad IM, Preserv and ABX Free 6 MO-64 YRS (FLUCELVAX) Unknown Completed [facility] TDAP Unknown Completed [facility] Meningococcal Polysaccharide (groups A, C, Y and W-135) conjugate vaccine (MCV4P) Unknown Completed [facility] SARS-COV-2 COVID-19 PFIZER VACCINE Unknown Completed [facility] Influenza Virus Vaccine Quad IM, Preserv and ABX Free 6 MO-64 YRS (FLUCELVAX) Unknown Completed [facility] TDAP Unknown Completed [facility] Meningococcal Polysaccharide (groups A, C, Y and W-135) conjugate vaccine (MCV4P) Unknown Completed [facility] SARS-COV-2 COVID-19 PFIZER VACCINE Unknown Completed [facility] Influenza Virus Vaccine Quad IM, Preserv and ABX Free 6 MO-64 YRS (FLUCELVAX) Unknown Completed [facility] TDAP Unknown Completed [facility] Meningococcal Polysaccharide (groups A, C, Y and W-135) conjugate vaccine (MCV4P) Unknown Completed [facility] Flu Injectable MDCK Pres-Free (FLUCELVAX) Unknown Completed [facility] SARS-COV-2 COVID-19 PFIZER VACCINE Unknown Completed [facility] Influenza Virus Vaccine Quad IM, Preserv and ABX Free 6 MO-64 YRS (FLUCELVAX) Unknown Completed [facility] TDAP Unknown Completed [facility] Meningococcal Polysaccharide (groups A, C, Y and W-135) conjugate vaccine (MCV4P) Unknown Completed [facility] Vital Signs Vital Name Observation Time Observation Value Warner dailey Systolic blood pressure 2025-02-28 17:35:00 104 mm[Hg] [facility] Diastolic blood pressure 2025-02-28 17:35:00 72 mm[Hg] [facility] Heart rate 2025-02-28 17:35:00 101 /min [facility] Body temperature 2025-02-28 17:35:00 36.67 Janet [facility] Respiratory rate 2025-02-28 17:35:00 18 /min [facility] Oxygen saturation in Arterial blood by Pulse oximetry 2025-02-28 17:35:00 94 /min [facility] Body height 2025-02-28 15:02:00 152.4 cm [facility] Body weight 2025-02-28 15:02:00 99.791 kg [facility] BMI 2025-02-28 15:02:00 42.97 kg/m2 [facility] Body height 2025-02-01 15:34:00 152.4 cm [facility] Systolic blood pressure 2025-01-09 20:26:00 121 mm[Hg] [facility] Diastolic blood pressure 2025-01-09 20:26:00 76 mm[Hg] [facility] Heart rate 2025-01-09 20:26:00 97 /min [facility] Body height 2025-01-09 20:26:00 152.4 cm [facility] Body weight 2025-01-09 20:26:00 99.383 kg [facility] BMI 2025-01-09 20:26:00 42.79 kg/m2 [facility] Oxygen saturation in Arterial blood by Pulse oximetry 2025-01-09 20:26:00 97 /min [facility] Systolic blood pressure 2025-01-09 16:00:00 120 mm[Hg] [facility] Diastolic blood pressure 2025-01-09 16:00:00 74 mm[Hg] [facility] Heart rate 2025-01-09 16:00:00 85 /min [facility] Body height 2025-01-09 16:00:00 152.4 cm [facility] Body weight 2025-01-09 16:00:00 100.064 kg [facility] BMI 2025-01-09 16:00:00 43.08 kg/m2 [facility] Oxygen saturation in Arterial blood by Pulse oximetry 2025-01-09 16:00:00 98 /min [facility] Systolic blood pressure 2024-12-27 19:34:00 105 mm[Hg] [facility] Diastolic blood pressure 2024-12-27 19:34:00 71 mm[Hg] [facility] Heart rate 2024-12-27 19:34:00 101 /min [facility] Body temperature 2024-12-27 19:34:00 35.61 Janet [facility] Respiratory rate 2024-12-27 19:34:00 18 /min [facility] Body weight 2024-12-27 19:34:00 98.793 kg [facility] BMI 2024-12-27 19:34:00 42.54 kg/m2 [facility] Systolic blood pressure 2024-12-20 20:55:00 105 mm[Hg] [facility] Diastolic blood pressure 2024-12-20 20:55:00 70 mm[Hg] [facility] Heart rate 2024-12-20 20:55:00 85 /min [facility] Body height 2024-12-20 20:55:00 152.4 cm [facility] Body weight 2024-12-20 20:55:00 98.431 kg [facility] BMI 2024-12-20 20:55:00 42.38 kg/m2 [facility] Oxygen saturation in Arterial blood by Pulse oximetry 2024-12-20 20:55:00 98 /min [facility] Systolic blood pressure 2024-12-15 21:30:00 116 mm[Hg] [facility] Diastolic blood pressure 2024-12-15 21:30:00 81 mm[Hg] [facility] Heart rate 2024-12-15 21:30:00 79 /min [facility] Body temperature 2024-12-15 21:30:00 36.06 Janet [facility] Respiratory rate 2024-12-15 21:30:00 17 /min [facility] Oxygen saturation in Arterial blood by Pulse oximetry 2024-12-15 21:30:00 97 /min [facility] Body height 2024-12-15 17:24:00 152.4 cm [facility] Body weight 2024-12-15 17:24:00 97.523 kg [facility] BMI 2024-12-15 17:24:00 41.99 kg/m2 [facility] Systolic blood pressure 2024-12-12 14:05:00 127 mm[Hg] [facility] Diastolic blood pressure 2024-12-12 14:05:00 74 mm[Hg] [facility] Heart rate 2024-12-12 14:05:00 80 /min [facility] Body temperature 2024-12-12 14:05:00 36.72 Janet [facility] Respiratory rate 2024-12-12 14:05:00 18 /min [facility] Oxygen saturation in Arterial blood by Pulse oximetry 2024-12-12 14:05:00 100 /min [facility] Body height 2024-12-12 13:33:00 152.4 cm [facility] Body weight 2024-12-12 13:33:00 92.987 kg [facility] BMI 2024-12-12 13:33:00 40.04 kg/m2 [facility] Body temperature 2024-12-11 05:11:00 37.11 Janet [facility] Systolic blood pressure 2024-12-11 05:00:00 118 mm[Hg] [facility] Diastolic blood pressure 2024-12-11 05:00:00 78 mm[Hg] [facility] Heart rate 2024-12-11 05:00:00 104 /min [facility] Respiratory rate 2024-12-11 05:00:00 20 /min [facility] Oxygen saturation in Arterial blood by Pulse oximetry 2024-12-11 05:00:00 98 /min [facility] Body height 2024-12-11 03:15:00 152.4 cm [facility] Body weight 2024-12-11 03:15:00 99.791 kg [facility] BMI 2024-12-11 03:15:00 42.97 kg/m2 [facility] Systolic blood pressure 2024-11-29 19:20:00 120 mm[Hg] [facility] Diastolic blood pressure 2024-11-29 19:20:00 75 mm[Hg] [facility] Heart rate 2024-11-29 19:20:00 106 /min [facility] Body temperature 2024-11-29 19:20:00 36.67 Janet [facility] Respiratory rate 2024-11-29 19:20:00 18 /min [facility] Body height 2024-11-29 19:20:00 152.4 cm [facility] Body weight 2024-11-29 19:20:00 99.927 kg [facility] BMI 2024-11-29 19:20:00 43.02 kg/m2 [facility] Systolic blood pressure 2024-11-25 14:17:00 136 mm[Hg] [facility] Diastolic blood pressure 2024-11-25 14:17:00 83 mm[Hg] [facility] Heart rate 2024-11-25 14:17:00 99 /min [facility] Body temperature 2024-11-25 14:17:00 36.22 Janet [facility] Respiratory rate 2024-11-25 14:17:00 18 /min [facility] Body height 2024-11-25 14:17:00 152.4 cm [facility] Body weight 2024-11-25 14:17:00 100.245 kg [facility] BMI 2024-11-25 14:17:00 43.16 kg/m2 [facility] Systolic blood pressure 2024-11-04 21:15:00 110 mm[Hg] [facility] Diastolic blood pressure 2024-11-04 21:15:00 75 mm[Hg] [facility] Heart rate 2024-11-04 21:15:00 83 /min [facility] Body height 2024-11-04 21:15:00 152.4 cm [facility] Body weight 2024-11-04 21:15:00 100.018 kg [facility] BMI 2024-11-04 21:15:00 43.06 kg/m2 [facility] Oxygen saturation in Arterial blood by Pulse oximetry 2024-11-04 21:15:00 97 /min [facility] Systolic blood pressure 2024-11-04 01:14:00 133 mm[Hg] [facility] Diastolic blood pressure 2024-11-04 01:14:00 84 mm[Hg] [facility] Heart rate 2024-11-04 01:14:00 104 /[facility] Body temperature 2024-11-04 01:14:00 36.61 Janet [facility] Respiratory rate 2024-11-04 01:14:00 20 /min [facility] Body height 2024-11-04 01:14:00 152.4 cm [facility] Body weight 2024-11-04 01:14:00 100.381 kg [facility] BMI 2024-11-04 01:14:00 43.22 kg/m2 [facility] Oxygen saturation in Arterial blood by Pulse oximetry 2024-11-04 01:14:00 95 /min [facility] Systolic blood pressure 2024-10-10 18:26:00 118 mm[Hg] [facility] Diastolic blood pressure 2024-10-10 18:26:00 80 mm[Hg] [facility] Heart rate 2024-10-10 18:26:00 95 /min [facility] Body temperature 2024-10-10 18:26:00 35.44 Janet [facility] Respiratory rate 2024-10-10 18:26:00 18 /min [facility] Body height 2024-10-10 18:26:00 152.4 cm [facility] Body weight 2024-10-10 18:26:00 100.064 kg [facility] BMI 2024-10-10 18:26:00 43.08 kg/m2 [facility] Oxygen saturation in Arterial blood by Pulse oximetry 2024-10-10 18:26:00 97 /min [facility] Systolic blood pressure 2024-10-04 20:38:00 135 mm[Hg] [facility] Diastolic blood pressure 2024-10-04 20:38:00 76 mm[Hg] [facility] Heart rate 2024-10-04 20:38:00 80 /min [facility] Body temperature 2024-10-04 20:38:00 36.44 [facility] Respiratory rate 2024-10-04 20:38:00 18 /min [facility] Body height 2024-10-04 20:38:00 152.4 cm [facility] Body weight 2024-10-04 20:38:00 100.245 kg [facility] BMI 2024-10-04 20:38:00 43.16 kg/m2 [facility] Oxygen saturation in Arterial blood by Pulse oximetry 2024-10-04 20:38:00 97 /min [facility] Systolic blood pressure 2024-10-04 18:47:00 112 mm[Hg] [facility] Diastolic blood pressure 2024-10-04 18:47:00 75 mm[Hg] [facility] Heart rate 2024-10-04 18:47:00 83 /min [facility] Respiratory rate 2024-10-04 18:47:00 16 /min [facility] Body height 2024-10-04 18:47:00 152.4 cm [facility] Body weight 2024-10-04 18:47:00 100.064 kg [facility] BMI 2024-10-04 18:47:00 43.08 kg/m2 [facility] Oxygen saturation in Arterial blood by Pulse oximetry 2024-10-04 18:47:00 95 /min [facility] Systolic blood pressure 2024-09-27 17:45:00 118 mm[Hg] [facility] Diastolic blood pressure 2024-09-27 17:45:00 74 mm[Hg] [facility] Heart rate 2024-09-27 17:45:00 87 /min [facility] Respiratory rate 2024-09-27 17:45:00 17 /min [facility] Oxygen saturation in Arterial blood by Pulse oximetry 2024-09-27 17:45:00 98 /min [facility] Body temperature 2024-09-27 17:15:00 36.28 [facility] Body height 2024-09-27 16:07:00 152.4 cm [facility] Body weight 2024-09-27 16:07:00 99.6 kg [facility] BMI 2024-09-27 16:07:00 42.88 kg/m2 [facility] Systolic blood pressure 2024-09-27 17:15:00 112 mm[Hg] [facility] Diastolic blood pressure 2024-09-27 17:15:00 72 mm[Hg] [facility] Heart rate 2024-09-27 17:15:00 91 [facility] Body temperature 2024-09-27 17:15:00 36.28 [facility] Respiratory rate 2024-09-27 17:15:00 15 /min [facility] Oxygen saturation in Arterial blood by Pulse oximetry 2024-09-27 17:15:00 95 /min [facility] Body height 2024-09-27 16:07:00 152.4 cm [facility] Body weight 2024-09-27 16:07:00 99.6 kg [facility] BMI 2024-09-27 16:07:00 42.88 kg/m2 [facility] Systolic blood pressure 2024-09-16 18:43:00 142 mm[Hg] [facility] Diastolic blood pressure 2024-09-16 18:43:00 88 mm[Hg] [facility] Heart rate 2024-09-16 18:43:00 104 /min [facility] Body temperature 2024-09-16 18:43:00 35.61 [facility] Body height 2024-09-16 18:43:00 152.4 cm [facility] Body weight 2024-09-16 18:43:00 100.336 kg [facility] BMI 2024-09-16 18:43:00 43.20 kg/m2 [facility] Oxygen saturation in Arterial blood by Pulse oximetry 2024-09-16 18:43:00 100 /min [facility] Systolic blood pressure 2024-09-07 20:42:00 106 mm[Hg] [facility] Diastolic blood pressure 2024-09-07 20:42:00 71 mm[Hg] [facility] Heart rate 2024-09-07 20:42:00 88 /min [facility] Body temperature 2024-09-07 20:42:00 36.78 [facility] Body height 2024-09-07 20:42:00 152.4 cm [facility] Body weight 2024-09-07 20:42:00 98.884 kg [facility] BMI 2024-09-07 20:42:00 42.58 kg/m2 [facility] Oxygen saturation in Arterial blood by Pulse oximetry 2024-09-07 20:42:00 96 /min [facility] Systolic blood pressure 2024-08-30 18:57:00 128 mm[Hg] [facility] Diastolic blood pressure 2024-08-30 18:57:00 83 mm[Hg] [facility] Heart rate 2024-08-30 18:57:00 85 /min [facility] Body height 2024-08-30 18:57:00 152.4 cm [facility] Body weight 2024-08-30 18:57:00 98.476 kg [facility] BMI 2024-08-30 18:57:00 42.40 kg/m2 [facility] Oxygen saturation in Arterial blood by Pulse oximetry 2024-08-30 18:57:00 97 /min [facility] Systolic blood pressure 2024-08-02 22:10:00 120 mm[Hg] [facility] Diastolic blood pressure 2024-08-02 22:10:00 74 mm[Hg] [facility] Heart rate 2024-08-02 22:10:00 84 /min [facility] Body height 2024-08-02 22:10:00 152.4 cm [facility] Body weight 2024-08-02 22:10:00 99.292 kg [facility] BMI 2024-08-02 22:10:00 42.75 kg/m2 [facility] Oxygen saturation in Arterial blood by Pulse oximetry 2024-08-02 22:10:00 97 /min [facility] Systolic blood pressure 2024-08-01 16:49:00 112 mm[Hg] [facility] Diastolic blood pressure 2024-08-01 16:49:00 77 mm[Hg] [facility] Heart rate 2024-08-01 16:49:00 95 /min [facility] Body temperature 2024-08-01 16:49:00 36.39 [facility] Body height 2024-08-01 16:49:00 152.4 cm [facility] Body weight 2024-08-01 16:49:00 99.202 kg [facility] BMI 2024-08-01 16:49:00 42.71 kg/m2 [facility] Oxygen saturation in Arterial blood by Pulse oximetry 2024-08-01 16:49:00 98 /min [facility] Systolic blood pressure 2024-07-28 15:27:20 125 mm[Hg] [facility] Diastolic blood pressure 2024-07-28 15:27:20 80 mm[Hg] [facility] Heart rate 2024-07-28 15:27:20 81 /min [facility] Body temperature 2024-07-28 15:27:20 36.5 [facility] Respiratory rate 2024-07-28 15:27:20 16 /min [facility] Oxygen saturation in Arterial blood by Pulse oximetry 2024-07-28 15:27:20 97 /min [facility] Body height 2024-07-28 14:25:00 152.4 cm [facility] Body weight 2024-07-28 14:25:00 97.523 kg [facility] BMI 2024-07-28 14:25:00 41.99 kg/m2 [facility] Systolic blood pressure 2024-07-19 17:15:00 109 mm[Hg] [facility] Diastolic blood pressure 2024-07-19 17:15:00 70 mm[Hg] [facility] Heart rate 2024-07-19 17:15:00 88 /min [facility] Body temperature 2024-07-19 17:15:00 36.06 [facility] Respiratory rate 2024-07-19 17:15:00 18 /min [facility] Body height 2024-07-19 17:15:00 152.4 cm [facility] Body weight 2024-07-19 17:15:00 98.385 kg [facility] BMI 2024-07-19 17:15:00 42.36 kg/m2 [facility] Oxygen saturation in Arterial blood by Pulse oximetry 2024-07-19 17:15:00 97 /min [facility] Systolic blood pressure 2024-07-13 19:00:00 121 mm[Hg] [facility] Diastolic blood pressure 2024-07-13 19:00:00 80 mm[Hg] [facility] Heart rate 2024-07-13 19:00:00 90 /min [facility] Body temperature 2024-07-13 19:00:00 36.39 [facility] Respiratory rate 2024-07-13 19:00:00 18 /min [facility] Body height 2024-07-13 19:00:00 [facility] Body weight 2024-07-13 19:00:00 97.206 [facility] 2024-07-13 19:00:00 41.85 kg/m2 [facility] Oxygen saturation in Arterial blood by Pulse oximetry 2024-07-13 19:00:00 100 /min [facility] Systolic blood pressure 2024-07-12 16:40:00 109 mm[Hg] [facility] Diastolic blood pressure 2024-07-12 16:40:00 67 mm[Hg] [facility] Heart rate 2024-07-12 16:40:00 84 /min [facility] Respiratory rate 2024-07-12 16:40:00 18 /min [facility] Body height 2024-07-12 16:40:00 152.4 cm [facility] Body weight 2024-07-12 16:40:00 97.977 kg [facility] BMI 2024-07-12 16:40:00 42.18 kg/m2 [facility] Systolic blood pressure 2024-06-24 19:27:00 107 mm[Hg] [facility] Diastolic blood pressure 2024-06-24 19:27:00 71 mm[Hg] [facility] Heart rate 2024-06-24 19:27:00 85 /min [facility] Respiratory rate 2024-06-24 19:27:00 18 /min [facility] Body height 2024-06-24 19:27:00 152.4 cm [facility] Body weight 2024-06-24 19:27:00 97.07 kg [facility] BMI 2024-06-24 19:27:00 41.79 kg/m2 [facility] Oxygen saturation in Arterial blood by Pulse oximetry 2024-06-24 19:27:00 96 /min [facility] Systolic blood pressure 2024-06-17 17:25:00 113 mm[Hg] [facility] Diastolic blood pressure 2024-06-17 17:25:00 66 mm[Hg] [facility] Heart rate 2024-06-17 17:25:00 87 /min [facility] Body temperature 2024-06-17 17:25:00 36.61 [facility] Body height 2024-06-17 17:25:00 152.4 cm [facility] Body weight 2024-06-17 17:25:00 97.16 kg [facility] BMI 2024-06-17 17:25:00 41.83 kg/m2 [facility] Oxygen saturation in Arterial blood by Pulse oximetry 2024-06-17 17:25:00 100 /min [facility] Systolic blood pressure 2024-06-14 22:05:00 120 mm[Hg] [facility] Diastolic blood pressure 2024-06-14 22:05:00 81 mm[Hg] [facility] Heart rate 2024-06-14 22:05:00 90 /min [facility] Body temperature 2024-06-14 22:05:00 36.44 [facility] Respiratory rate 2024-06-14 22:05:00 18 /min [facility] Body weight 2024-06-14 22:05:00 98.022 kg [facility] BMI 2024-06-14 22:05:00 42.20 kg/m2 [facility] Oxygen saturation in Arterial blood by Pulse oximetry 2024-06-14 22:05:00 96 /min [facility] Systolic blood pressure 2024-05-30 14:00:00 139 mm[Hg] [facility] Diastolic blood pressure 2024-05-30 14:00:00 72 mm[Hg] [facility] Heart rate 2024-05-30 14:00:00 86 /min [facility] Body temperature 2024-05-30 14:00:00 36.72 [facility] Respiratory rate 2024-05-30 14:00:00 18 /min [facility] Oxygen saturation in Arterial blood by Pulse oximetry 2024-05-30 14:00:00 99 /min [facility] Body weight 2024-05-30 10:25:00 99.791 kg [facility] BMI 2024-05-30 10:25:00 42.97 kg/m2 [facility] Systolic blood pressure 2024-05-30 09:16:00 128 mm[Hg] [facility] Diastolic blood pressure 2024-05-30 09:16:00 75 mm[Hg] [facility] Heart rate 2024-05-30 09:16:00 102 /[facility] Body temperature 2024-05-30 09:16:00 36.78 [facility] Respiratory rate 2024-05-30 09:16:00 18 /min [facility] Oxygen saturation in Arterial blood by Pulse oximetry 2024-05-30 09:16:00 96 /min [facility] Body height 2024-05-30 04:25:00 152.4 cm [facility] Body weight 2024-05-30 04:25:00 99.791 kg [facility] BMI 2024-05-30 04:25:00 42.97 kg/m2 [facility] Systolic blood pressure 2024-04-19 21:51:00 115 mm[Hg] [facility] Diastolic blood pressure 2024-04-19 21:51:00 75 mm[Hg] [facility] Heart rate 2024-04-19 21:51:00 82 /min [facility] Respiratory rate 2024-04-19 21:51:00 18 /min [facility] Body height 2024-04-19 21:51:00 152.4 cm [facility] Body weight 2024-04-19 21:51:00 96.616 kg [facility] BMI 2024-04-19 21:51:00 41.60 kg/m2 [facility] Systolic blood pressure 2024-04-05 16:23:00 124 mm[Hg] [facility] Diastolic blood pressure 2024-04-05 16:23:00 73 mm[Hg] [facility] Heart rate 2024-04-05 16:23:00 103 /min [facility] Body temperature 2024-04-05 16:23:00 36.28 [facility] Body height 2024-04-05 16:23:00 152.4 cm [facility] Body weight 2024-04-05 16:23:00 96.662 kg [facility] BMI 2024-04-05 16:23:00 41.62 kg/m2 [facility] Oxygen saturation in Arterial blood by Pulse oximetry 2024-04-05 16:23:00 95 /min [facility] Systolic blood pressure 2024-03-25 21:33:00 126 mm[Hg] [facility] Diastolic blood pressure 2024-03-25 21:33:00 81 mm[Hg] [facility] Heart rate 2024-03-25 21:33:00 96 /min [facility] Respiratory rate 2024-03-25 21:33:00 18 /min [facility] Body height 2024-03-25 21:33:00 152.4 cm [facility] Body weight 2024-03-25 21:33:00 98.022 kg [facility] BMI 2024-03-25 21:33:00 42.20 kg/m2 [facility] Oxygen saturation in Arterial blood by Pulse oximetry 2024-03-25 21:33:00 98 /min [facility] Systolic blood pressure 2024-03-23 18:39:00 114 mm[Hg] [facility] Diastolic blood pressure 2024-03-23 18:39:00 69 mm[Hg] [facility] Heart rate 2024-03-23 18:39:00 79 /min [facility] Body height 2024-03-23 18:39:00 152.4 cm [facility] Body weight 2024-03-23 18:39:00 96.163 kg [facility] BMI 2024-03-23 18:39:00 41.40 kg/m2 [facility] Oxygen saturation in Arterial blood by Pulse oximetry 2024-03-23 18:39:00 97 /min [facility] Systolic blood pressure 2024-02-18 14:23:00 111 mm[Hg] [facility] Diastolic blood pressure 2024-02-18 14:23:00 77 mm[Hg] [facility] Heart rate 2024-02-18 14:23:00 90 /min [facility] Body temperature 2024-02-18 14:23:00 36.72 [facility] Respiratory rate 2024-02-18 14:23:00 18 /min [facility] Body height 2024-02-18 14:23:00 152.4 cm [facility] Body weight 2024-02-18 14:23:00 92.987 kg [facility] BMI 2024-02-18 14:23:00 40.04 kg/m2 [facility] Oxygen saturation in Arterial blood by Pulse oximetry 2024-02-18 14:23:00 98 /min [facility] Systolic blood pressure 2024-01-26 21:06:00 104 mm[Hg] [facility] Diastolic blood pressure 2024-01-26 21:06:00 77 mm[Hg] [facility] Heart rate 2024-01-26 21:06:00 91 /min [facility] Respiratory rate 2024-01-26 21:06:00 18 /min [facility] Body height 2024-01-26 21:06:00 152.4 cm [facility] Body weight 2024-01-26 21:06:00 89.812 kg [facility] BMI 2024-01-26 21:06:00 38.67 kg/m2 [facility] Systolic blood pressure 2024-01-14 17:47:00 108 mm[Hg] [facility] Diastolic blood pressure 2024-01-14 17:47:00 72 mm[Hg] [facility] Heart rate 2024-01-14 17:45:00 97 /min [facility] Body temperature 2024-01-14 17:45:00 36.94 [facility] Body height 2024-01-14 17:45:00 152.4 cm [facility] Body weight 2024-01-14 17:45:00 90.719 kg [facility] BMI 2024-01-14 17:45:00 39.06 kg/m2 [facility] Oxygen saturation in Arterial blood by Pulse oximetry 2024-01-14 17:45:00 97 /min [facility] Systolic blood pressure 2023-12-25 18:20:00 111 mm[Hg] [facility] Diastolic blood pressure 2023-12-25 18:20:00 66 mm[Hg] [facility] Heart rate 2023-12-25 18:20:00 87 /min [facility] Body height 2023-12-25 18:20:00 152.4 cm [facility] Body weight 2023-12-25 18:20:00 89.449 kg [facility] BMI 2023-12-25 18:20:00 38.51 kg/m2 [facility] Oxygen saturation in Arterial blood by Pulse oximetry 2023-12-25 18:20:00 100 /min [facility] Systolic blood pressure 2023-12-22 15:25:00 107 mm[Hg] [facility] Diastolic blood pressure 2023-12-22 15:25:00 76 mm[Hg] [facility] Heart rate 2023-12-22 15:25:00 92 /min [facility] Respiratory rate 2023-12-22 15:25:00 16 /min [facility] Body height 2023-12-22 15:25:00 152.4 cm [facility] Body weight 2023-12-22 15:25:00 89.767 kg [facility] BMI 2023-12-22 15:25:00 38.65 kg/m2 [facility] Oxygen saturation in Arterial blood by Pulse oximetry 2023-12-22 15:25:00 97 /min [facility] Systolic blood pressure 2023-12-19 12:00:00 109 mm[Hg] [facility] Diastolic blood pressure 2023-12-19 12:00:00 74 mm[Hg] [facility] Heart rate 2023-12-19 12:00:00 84 /min [facility] Body temperature 2023-12-19 12:00:00 36.72 [facility] Respiratory rate 2023-12-19 12:00:00 16 /min [facility] Oxygen saturation in Arterial blood by Pulse oximetry 2023-12-19 12:00:00 96 /min [facility] Body height 2023-12-19 08:35:00 152.4 cm [facility] Body weight 2023-12-19 08:35:00 90.084 kg [facility] BMI 2023-12-19 08:35:00 38.79 kg/m2 [facility] Heart rate 2023-12-16 15:56:00 106 /min [facility] Systolic blood pressure 2023-12-16 15:30:00 121 mm[Hg] [facility] Diastolic blood pressure 2023-12-16 15:30:00 86 mm[Hg] [facility] Body temperature 2023-12-16 15:30:00 37 [facility] Respiratory rate 2023-12-16 15:30:00 20 /min [facility] Body height 2023-12-16 15:30:00 152.4 cm [facility] Body weight 2023-12-16 15:30:00 88.905 kg [facility] BMI 2023-12-16 15:30:00 38.28 kg/m2 [facility] Oxygen saturation in Arterial blood by Pulse oximetry 2023-12-16 15:30:00 97 /min [facility] Systolic blood pressure 2023-12-11 16:56:00 127 mm[Hg] [facility] Diastolic blood pressure 2023-12-11 16:56:00 85 mm[Hg] [facility] Heart rate 2023-12-11 16:56:00 111 [facility] Body temperature 2023-12-11 16:56:00 36.83 [facility] Oxygen saturation in Arterial blood by Pulse oximetry 2023-12-11 16:56:00 93 /min [facility] Respiratory rate 2023-12-11 08:20:00 16 /min [facility] Body height 2023-12-09 14:30:00 152.4 cm [facility] Body weight 2023-12-09 14:30:00 93.2 kg [facility] BMI 2023-12-09 14:30:00 40.13 kg/m2 [facility] Systolic blood pressure 2023-12-09 14:30:00 138 mm[Hg] [facility] Diastolic blood pressure 2023-12-09 14:30:00 82 mm[Hg] [facility] Heart rate 2023-12-09 14:30:00 101 /min [facility] Body temperature 2023-12-09 14:30:00 37.33 [facility] Respiratory rate 2023-12-09 14:30:00 16 /min [facility] Body height 2023-12-09 14:30:00 152.4 cm [facility] Body weight 2023-12-09 14:30:00 93.2 kg [facility] BMI 2023-12-09 14:30:00 40.13 kg/m2 [facility] Oxygen saturation in Arterial blood by Pulse oximetry 2023-12-09 14:30:00 97 /min [facility] Systolic blood pressure 2023-12-07 20:55:00 113 mm[Hg] [facility] Diastolic blood pressure 2023-12-07 20:55:00 72 mm[Hg] [facility] Heart rate 2023-12-07 20:55:00 97 /min [facility] Body height 2023-12-07 20:55:00 152.4 cm [facility] Body weight 2023-12-07 20:55:00 94.167 kg [facility] BMI 2023-12-07 20:55:00 40.54 kg/m2 [facility] Oxygen saturation in Arterial blood by Pulse oximetry 2023-12-07 20:55:00 98 /min [facility] Systolic blood pressure 2023-12-04 18:38:00 122 mm[Hg] [facility] Diastolic blood pressure 2023-12-04 18:38:00 86 mm[Hg] [facility] Heart rate 2023-12-04 18:38:00 101 /min [facility] Body temperature 2023-12-04 18:38:00 36 [facility] Respiratory rate 2023-12-04 18:38:00 18 /min [facility] Body height 2023-12-04 18:38:00 152.4 cm [facility] Body weight 2023-12-04 18:38:00 93.169 kg [facility] BMI 2023-12-04 18:38:00 40.11 kg/m2 [facility] Oxygen saturation in Arterial blood by Pulse oximetry 2023-12-04 18:38:00 96 /min [facility] Systolic blood pressure 2023-11-20 20:27:00 129 mm[Hg] [facility] Diastolic blood pressure 2023-11-20 20:27:00 82 mm[Hg] [facility] Heart rate 2023-11-20 20:27:00 97 /[facility] Body temperature 2023-11-20 20:27:00 36.11 [facility] Body height 2023-11-20 20:27:00 152.4 cm [facility] Body weight 2023-11-20 20:27:00 93.441 kg [facility] BMI 2023-11-20 20:27:00 40.23 kg/m2 [facility] Systolic blood pressure 2023-11-12 15:30:00 114 mm[Hg] [facility] Diastolic blood pressure 2023-11-12 15:30:00 73 mm[Hg] [facility] Heart rate 2023-11-12 15:30:00 90 /min [facility] Respiratory rate 2023-11-12 15:30:00 17 /min [facility] Oxygen saturation in Arterial blood by Pulse oximetry 2023-11-12 15:30:00 96 /min [facility] Body temperature 2023-11-12 14:35:00 36.28 [facility] Body height 2023-11-12 13:08:00 152.4 cm [facility] Body weight 2023-11-12 13:08:00 92.9 kg [facility] BMI 2023-11-12 13:08:00 40.00 kg/m2 [facility] Systolic blood pressure 2023-11-12 15:30:00 114 mm[Hg] [facility] Diastolic blood pressure 2023-11-12 15:30:00 73 mm[Hg] [facility] Heart rate 2023-11-12 15:30:00 90 /min [facility] Respiratory rate 2023-11-12 15:30:00 17 /min [facility] Oxygen saturation in Arterial blood by Pulse oximetry 2023-11-12 15:30:00 96 /min [facility] Body temperature 2023-11-12 14:35:00 36.28 [facility] Body height 2023-11-12 13:08:00 152.4 cm [facility] Body weight 2023-11-12 13:08:00 92.9 kg [facility] BMI 2023-11-12 13:08:00 40.00 kg/m2 [facility] Systolic blood pressure 2023 15:50:00 111 mm[Hg] [facility] Diastolic blood pressure 2023 15:50:00 78 mm[Hg] [facility] Heart rate 2023 15:50:00 99 /min [facility] Body temperature 2023 15:50:00 36.72 [facility] Respiratory rate 2023 15:50:00 18 /min [facility] Body height 2023 15:50:00 152.4 cm [facility] Body weight 2023 15:50:00 93.26 kg [facility] [facility] BMI 2023 15:50:00 40.15 kg/m2 [facility] Systolic blood pressure 2023-10-23 18:27:00 114 mm[Hg] [facility] Diastolic blood pressure 2023-10-23 18:27:00 76 mm[Hg] [facility] Heart rate 2023-10-23 18:27:00 86 /min [facility] Body temperature 2023-10-23 18:27:00 36.28 Janet [facility] Respiratory rate 2023-10-23 18:27:00 18 /min [facility] Body height 2023-10-23 18:27:00 152.4 cm [facility] Body weight 2023-10-23 18:27:00 93.895 kg [facility] BMI 2023-10-23 18:27:00 40.43 kg/m2 [facility] Oxygen saturation in Arterial blood by Pulse oximetry 2023-10-23 18:27:00 97 /min [facility] Systolic blood pressure 2023-10-21 16:03:00 113 mm[Hg] [facility] Diastolic blood pressure 2023-10-21 16:03:00 78 mm[Hg] [facility] Heart rate 2023-10-21 16:03:00 99 /min [facility] Body height 2023-10-21 16:03:00 152.4 cm [facility] Body weight 2023-10-21 16:03:00 92.942 kg [facility] BMI 2023-10-21 16:03:00 40.02 kg/m2 [facility] Oxygen saturation in Arterial blood by Pulse oximetry 2023-10-21 16:03:00 96 /min [facility] Systolic blood pressure 2023-10-05 15:37:00 120 mm[Hg] [facility] Diastolic blood pressure 2023-10-05 15:37:00 77 mm[Hg] [facility] Heart rate 2023-10-05 15:37:00 102 /min [facility] Res[facility] 2023-10-05 15:37:00 18 /min [facility] Body height 2023-10-05 15:37:00 152.4 cm [facility] Body weight 2023-10-05 15:37:00 92.67 kg [facility] BMI 2023-10-05 15:37:00 39.90 kg/m2 [facility] Oxygen saturation in Arterial blood by Pulse oximetry 2023-10-05 15:37:00 96 /min [facility] Systolic blood pressure 2023-09-22 14:47:00 114 mm[Hg] [facility] Diastolic blood pressure 2023-09-22 14:47:00 80 mm[Hg] [facility] Heart rate 2023-09-22 14:47:00 100 /min [facility] Respiratory rate 2023-09-22 14:47:00 18 /min [facility] Body height 2023-09-22 14:47:00 152.4 cm [facility] Body weight 2023-09-22 14:47:00 91.944 kg [facility] BMI 2023-09-22 14:47:00 39.59 kg/m2 [facility] Oxygen saturation in Arterial blood by Pulse oximetry 2023-09-22 14:47:00 93 /min [facility] Systolic blood pressure 2023-08-25 14:34:00 123 mm[Hg] [facility] Diastolic blood pressure 2023-08-25 14:34:00 80 mm[Hg] [facility] Heart rate 2023-08-25 14:34:00 105 /min [facility] Body height 2023-08-25 14:34:00 152.4 cm [facility] Body weight 2023-08-25 14:34:00 92.897 kg [facility] BMI 2023-08-25 14:34:00 40.00 kg/m2 [facility] Oxygen saturation in Arterial blood by Pulse oximetry 2023-08-25 14:34:00 97 /min [facility] Systolic blood pressure 2023-08-10 14:13:00 108 mm[Hg] [facility] Diastolic blood pressure 2023-08-10 14:13:00 65 mm[Hg] [facility] Heart rate 2023-08-10 14:13:00 104 /min [facility] Respiratory rate 2023-08-10 14:13:00 18 /min [facility] Body height 2023-08-10 14:13:00 152.4 cm [facility] Body weight 2023-08-10 14:13:00 91.627 kg [facility] BMI 2023-08-10 14:13:00 39.45 kg/m2 [facility] Systolic blood pressure 2023-08-04 16:45:00 124 mm[Hg] [facility] Diastolic blood pressure 2023-08-04 16:45:00 84 mm[Hg] [facility] Heart rate 2023-08-04 16:45:00 97 /min [facility] Respiratory rate 2023-08-04 16:45:00 18 /min [facility] Body height 2023-08-04 16:45:00 152.4 cm [facility] Body weight 2023-08-04 16:45:00 91.23 kg [facility] BMI 2023-08-04 16:45:00 39.28 kg/m2 [facility] Oxygen saturation in Arterial blood by Pulse oximetry 2023-08-04 16:45:00 99 /min [facility] Systolic blood pressure 2023-07-24 19:18:00 107 mm[Hg] [facility] Diastolic blood pressure 2023-07-24 19:18:00 72 mm[Hg] [facility] Heart rate 2023-07-24 19:18:00 109 /min [facility] Body temperature 2023-07-24 19:18:00 36.72 Janet [facility] Body height 2023-07-24 19:18:00 152.4 cm [facility] Body weight 2023-07-24 19:18:00 88.814 kg [facility] BMI 2023-07-24 19:18:00 38.24 kg/m2 [facility] Oxygen saturation in Arterial blood by Pulse oximetry 2023-07-24 19:18:00 95 /min [facility] Systolic blood pressure 2023-07-23 19:46:00 116 mm[Hg] [facility] Diastolic blood pressure 2023-07-23 19:46:00 79 mm[Hg] [facility] Heart rate 2023-07-23 19:46:00 106 /min [facility] Body temperature 2023-07-23 19:46:00 35.89 Janet [facility] Respiratory rate 2023-07-23 19:46:00 16 /min [facility] Body height 2023-07-23 19:46:00 152.4 cm [facility] Body weight 2023-07-23 19:46:00 91.853 kg [facility] BMI 2023-07-23 19:46:00 39.55 kg/m2 [facility] Oxygen saturation in Arterial blood by Pulse oximetry 2023-07-23 19:46:00 95 /min [facility] Systolic blood pressure 2023-06-17 22:49:00 122 mm[Hg] [facility] Diastolic blood pressure 2023-06-17 22:49:00 81 mm[Hg] [facility] Heart rate 2023-06-17 22:49:00 98 /min [facility] Body temperature 2023-06-17 22:49:00 36.44 Janet [facility] Respiratory rate 2023-06-17 22:49:00 18 /min [facility] Body height 2023-06-17 22:49:00 152.4 cm [facility] Body weight 2023-06-17 22:49:00 92.987 kg [facility] BMI 2023-06-17 22:49:00 40.04 kg/m2 [facility] Oxygen saturation in Arterial blood by Pulse oximetry 2023-06-17 22:49:00 95 /min [facility] Systolic blood pressure 2023-05-15 19:30:00 110 mm[Hg] [facility] Diastolic blood pressure 2023-05-15 19:30:00 75 mm[Hg] [facility] Heart rate 2023-05-15 19:30:00 96 /min [facility] Body temperature 2023-05-15 19:30:00 36.72 Janet [facility] Respiratory rate 2023-05-15 19:30:00 18 /min [facility] Body height 2023-05-15 19:30:00 152.4 cm [facility] Body weight 2023-05-15 19:30:00 91.536 kg [facility] BMI 2023-05-15 19:30:00 39.41 kg/m2 [facility] Oxygen saturation in Arterial blood by Pulse oximetry 2023-05-15 19:30:00 100 /min [facility] Systolic blood pressure 2023-04-21 20:28:00 126 mm[Hg] [facility] Diastolic blood pressure 2023-04-21 20:28:00 86 mm[Hg] [facility] Heart rate 2023-04-21 20:28:00 98 /min [facility] Body temperature 2023-04-21 20:28:00 36.11 Janet [facility] Respiratory rate 2023-04-21 20:28:00 16 /min [facility] Body height 2023-04-21 20:28:00 152.4 cm [facility] Body weight 2023-04-21 20:28:00 94.802 kg [facility] BMI 2023-04-21 20:28:00 40.82 kg/m2 [facility] Oxygen saturation in Arterial blood by Pulse oximetry 2023-04-21 20:28:00 100 /min [facility] Systolic blood pressure 2023-03-26 20:35:00 127 mm[Hg] [facility] Diastolic blood pressure 2023-03-26 20:35:00 80 mm[Hg] [facility] Heart rate 2023-03-26 20:35:00 90 /min [facility] Body height 2023-03-26 20:35:00 152.4 cm [facility] Body weight 2023-03-26 20:35:00 94.167 kg [facility] BMI 2023-03-26 20:35:00 40.54 kg/m2 [facility] Oxygen saturation in Arterial blood by Pulse oximetry 2023-03-26 20:35:00 98 /min [facility] Systolic blood pressure 2023-02-23 14:43:00 119 mm[Hg] [facility] Diastolic blood pressure 2023-02-23 14:43:00 79 mm[Hg] [facility] Heart rate 2023-02-23 14:43:00 107 /min [facility] Respiratory rate 2023-02-23 14:43:00 18 /min [facility] Body height 2023-02-23 14:43:00 152.4 cm [facility] Body weight 2023-02-23 14:43:00 94.802 kg [facility] BMI 2023-02-23 14:43:00 40.82 kg/m2 [facility] Systolic blood pressure 2022-12-24 18:25:00 107 mm[Hg] [facility] Diastolic blood pressure 2022-12-24 18:25:00 69 mm[Hg] [facility] Heart rate 2022-12-24 18:25:00 92 /min [facility] Body temperature 2022-12-24 18:25:00 36.61 Janet [facility] Body height 2022-12-24 18:25:00 152.4 cm [facility] Body weight 2022-12-24 18:25:00 95.709 kg [facility] BMI 2022-12-24 18:25:00 41.21 kg/m2 [facility] Oxygen saturation in Arterial blood by Pulse oximetry 2022-12-24 18:25:00 97 /min [facility] Systolic blood pressure 2022-11-18 13:42:00 128 mm[Hg] [facility] Diastolic blood pressure 2022-11-18 13:42:00 85 mm[Hg] [facility] Heart rate 2022-11-18 13:42:00 108 /min [facility] Body temperature 2022-11-18 13:42:00 36.89 Janet [facility] Body height 2022-11-18 13:42:00 152.4 cm [facility] Body weight 2022-11-18 13:42:00 94.983 kg [facility] BMI 2022-11-18 13:42:00 40.90 kg/m2 [facility] Systolic blood pressure 2022-11-12 20:11:00 131 mm[Hg] [facility] Diastolic blood pressure 2022-11-12 20:11:00 84 mm[Hg] [facility] Heart rate 2022-11-12 20:11:00 100 /min [facility] Body temperature 2022-11-12 20:11:00 36.78 Janet [facility] Body height 2022-11-12 20:11:00 152.4 cm [facility] Body weight 2022-11-12 20:11:00 95.709 kg [facility] BMI 2022-11-12 20:11:00 41.21 kg/m2 [facility] Oxygen saturation in Arterial blood by Pulse oximetry 2022-11-12 20:11:00 96 /min [facility] Systolic blood pressure 2022-09-08 19:56:00 122 mm[Hg] [facility] Diastolic blood pressure 2022-09-08 19:56:00 81 mm[Hg] [facility] Heart rate 2022-09-08 19:56:00 95 /min [facility] Body height 2022-09-08 19:56:00 152.4 cm [facility] Body weight 2022-09-08 19:56:00 94.756 kg [facility] BMI 2022-09-08 19:56:00 40.80 kg/m2 [facility] Oxygen saturation in Arterial blood by Pulse oximetry 2022-09-08 19:56:00 98 /min [facility] Systolic blood pressure 2022-08-12 17:16:00 131 mm[Hg] [facility] Diastolic blood pressure 2022-08-12 17:16:00 80 mm[Hg] [facility] Heart rate 2022-08-12 17:15:00 113 /min [facility] Body temperature 2022-08-12 17:15:00 36.72 Janet [facility] Respiratory rate 2022-08-12 17:15:00 18 /min [facility] Body height 2022-08-12 17:15:00 152.4 cm [facility] Body weight 2022-08-12 17:15:00 94.892 kg [facility] BMI 2022-08-12 17:15:00 40.86 kg/m2 [facility] Systolic blood pressure 2022-08-08 15:20:00 134 mm[Hg] [facility] Diastolic blood pressure 2022-08-08 15:20:00 71 mm[Hg] [facility] Heart rate 2022-08-08 15:20:00 93 /min [facility] Body height 2022-08-08 15:20:00 152.4 cm [facility] Body weight 2022-08-08 15:20:00 95.618 kg [facility] BMI 2022-08-08 15:20:00 41.17 kg/m2 [facility] Oxygen saturation in Arterial blood by Pulse oximetry 2022-08-08 15:20:00 98 /min [facility] Systolic blood pressure 2022-06-27 22:07:00 125 mm[Hg] [facility] Diastolic blood pressure 2022-06-27 22:07:00 85 mm[Hg] [facility] Heart rate 2022-06-27 22:07:00 95 /min [facility] Body height 2022-06-27 22:07:00 152.4 cm [facility] Body weight 2022-06-27 22:07:00 94.802 kg [facility] BMI 2022-06-27 22:07:00 40.82 kg/m2 [facility] Oxygen saturation in Arterial blood by Pulse oximetry 2022-06-27 22:07:00 97 /min [facility] Systolic blood pressure 2022-05-19 15:24:00 116 mm[Hg] [facility] Diastolic blood pressure 2022-05-19 15:24:00 80 mm[Hg] [facility] Heart rate 2022-05-19 15:22:00 101 /min [facility] Body temperature 2022-05-19 15:22:00 36.94 Janet [facility] Respiratory rate 2022-05-19 15:22:00 18 /min [facility] Body height 2022-05-19 15:22:00 152.4 cm [facility] Body weight 2022-05-19 15:22:00 95.074 kg [facility] BMI 2022-05-19 15:22:00 40.93 kg/m2 [facility] Systolic blood pressure 2022-05-05 20:21:00 124 mm[Hg] [facility] Diastolic blood pressure 2022-05-05 20:21:00 84 mm[Hg] [facility] Heart rate 2022-05-05 20:21:00 109 /min [facility] Body temperature 2022-05-05 20:21:00 36.67 Janet [facility] Respiratory rate 2022-05-05 20:21:00 18 /min [facility] Body height 2022-05-05 20:21:00 152.4 cm [facility] Body weight 2022-05-05 20:21:00 93.895 kg [facility] BMI 2022-05-05 20:21:00 40.43 kg/m2 [facility] Systolic blood pressure 2022-04-17 16:43:00 124 mm[Hg] [facility] Diastolic blood pressure 2022-04-17 16:43:00 80 mm[Hg] [facility] Heart rate 2022-04-17 16:43:00 111 [facility] Body temperature 2022-04-17 16:43:00 36.72 Janet [facility] Body height 2022-04-17 16:43:00 152.4 cm [facility] Body weight 2022-04-17 16:43:00 94.983 kg [facility] BMI 2022-04-17 16:43:00 40.90 kg/m2 [facility] Systolic blood pressure 2022-04-11 19:57:00 134 mm[Hg] [facility] Diastolic blood pressure 2022-04-11 19:57:00 83 mm[Hg] [facility] Heart rate 2022-04-11 19:57:00 103 /min [facility] Body height 2022-04-11 19:57:00 152.4 cm [facility] Body weight 2022-04-11 19:57:00 94.575 kg [facility] BMI 2022-04-11 19:57:00 40.72 kg/m2 [facility] Oxygen saturation in Arterial blood by Pulse oximetry 2022-04-11 19:57:00 95 /min [facility] Height 2022-03-05 00:00:00 60 [in_i] [facility] BMI (Body Mass Index) 2022-03-05 00:00:00 40 kg/m2 [facility] Body Weight 2022-03-05 00:00:00 205 [lb_av] [facility] Procedures Procedure Date / Time Performed Performing Clinician Source LIPASE 2025-02-28 16:27:00 Sathish [facility] COMP. METABOLIC PANEL ([id number]) 2025-02-28 16:27:00 Sathish [facility] CBC WITH DIFF 2025-02-28 16:27:00 Sathish [facility] FIBROSCAN 2025-01-17 03:10:00 [place] [facility] XR CHEST 1 VW 2024-12-15 18:39:08 Margarito Ariza [facility] TROPONIN I 2024-12-15 18:37:00 Margarito Ariza [facility] COMP. METABOLIC PANEL ([id number]) 2024-12-15 18:37:00 Margarito Ariza [facility] CBC WITH DIFF 2024-12-15 18:37:00 Singer [facility] URINALYSIS 2024-12-15 18:37:00 Singer Margarito [facility] HB ECG ROUTINE & RHYTHM STRIP 2024-12-15 18:30:49 Singer [facility] CT MAXILLOFACIAL/MANDIBLE WO CONTRAST 2024-12-15 18:25:46 Singer [facility] CT HEAD WO CONTRAST 2024-12-15 18:25:46 Singer Margarito [facility] SCANNED LAB RESULTS 2024-12-12 13:51:10 Doctor Unassigned, Ozora [facility] POCT TEST 2024-12-11 04:18:00 Angel Luis Leon [facility] URINALYSIS 2024-12-11 04:17:00 Angel Luis Leon [facility] RAPID STREP SCREEN FOR GROUP A 6 04:17:00 Angel Luis Leon [facility] INFLUENZA A/B RSV COVID NAAT 2024-12-11 03:20:00 Angel Luis Leon [facility] RADIOLOGY DOCUMENTATION 2024-11-06 15:50:06 Doctor Unassigned, Ozora [facility] ENDOSCOPY PROCEDURE DOCUMENTATION - 13:08:10 Doctor Unassigned, Ozora [facility] EGD (ENDO) 2024-09-27 17:19:01 Kelly Reynaga [facility] EGD (ENDO) 2024-09-27 17:19:01 Kelly Reynaga [facility] ESOPHAGOGASTRODUODENOSCOPY 2024-09-27 16:44:00 Justen Tang [facility] POCT GLUCOSE (AUTOMATED) 2024-09-27 16:13:00 Justen Tang [facility] POCT GLUCOSE (AUTOMATED) 2024-09-27 16:13:00 Justen Tang [facility] POCT TEST 2024-09-27 00:00:00 Marely Freeman [facility] POCT TEST 2024-09-27 00:00:00 Marely Freeman [facility] SLEEP STUDY DATA REPORT 2024-09-14 21:10:49 Doctor Unassigned, Ozora [facility] SLEEP LAB RESULTS 2024-09-14 20:48:12 Laura Martínez [facility] POCT TEST 2024-09-07 20:51:00 Nicky Peck [facility] POCT URINALYSIS 2024-09-07 20:44:00 Nicky Peck [facility] COMP. METABOLIC PANEL ([id number]) 2024-08-02 22:55:00 Kelly Reynaga [facility] CBC WITH DIFF 2024-08-02 22:36:00 Kelly Reynaga [facility] US ABDOMEN LIMITED 2024-08-01 20:14:52 Tiffany Horne [facility] XR FOOT <3 VW RIGHT 2024-07-28 15:10:00 Margarito Ariza [facility] DME/SUPPLY JUSTIFICATION 2024-07-15 21:33:27 Doctor Unassigned, Ozora [facility] DME/SUPPLY JUSTIFICATION 2024-06-28 17:19:33 Doctor Unassigned, Ozora [facility] CT SOFT TISSUE NECK W CONTRAST 2024-05-09 3 05:37:38 Elizabeth Yeboah [facility] POCT TEST 2024-05-30 05:05:00 Elizabeth Yeboah [facility] BASIC METABOLIC PANEL (NA, K , CL, CO2, GLUCOSE, BUN, CREATININE, CA) 2024-05-30 05:04:00 Elizabeth Yeboah [facility] CBC WITH DIFF 2024-05-30 05:04:00 Elizabeth Yeboah [facility] RAPID STREP SCREEN FOR GROUP A 2024-05-09 3 05:04:00 Elizabeth Yeboah [facility] SCANNED LAB RESULTS 2024-05-24 20:46:59 Doctor Unassigned, Ozora [facility] FLU VACC ([id number]), 6 MO-6 4 YRS, .5ML, IM, TIV (FLUCELVAX) 2024-02-18 14:48:04 Kelly Reynaga [facility] DME/SUPPLY JUSTIFICATION 2024-02-02 16:03:29 Doctor Unassigned, Ozora [facility] CT SOFT TISSUE NECK W CONTRAST 2023-12-07 3 09:58:11 Milvia Cheung [facility] BASIC METABOLIC PANEL (NA, K , CL, CO2, GLUCOSE, BUN, CREATININE, CA) 2023-12-19 09:23:00 Milvia Cheung [facility] POCT GLUCOSE (AUTOMATED) 2023-12-11 16:57:[address] [facility] POCT GLUCOSE (AUTOMATED) 2023-12-11 16:57:[address] [facility] POCT GLUCOSE (AUTOMATED) 2023-12-11 13:31:[address] [facility] POCT GLUCOSE (AUTOMATED) 2023-12-11 13:31:00 [facility] MAGNESIUM 2023-12-11 10:23:00 Lesia Phillips [facility] BASIC METABOLIC PANEL (NA, K , CL, CO2, GLUCOSE, BUN, CREATININE, CA) 2023-12-11 10:23:00 Pascual Callahan [facility] CBC WITH DIFF 2023-12-11 10:23:00 Pascual Callahan [facility] MAGNESIUM 2023-12-11 10:23:00 Lesia Phillips [facility] BASIC METABOLIC PANEL (NA, K , CL, CO2, GLUCOSE, BUN, CREATININE, CA) 2023-12-11 10:23:00 Pascual Callahan [facility] CBC WITH DIFF 2023-12-11 10:23[facility]00 [facility] 2023-12-11 01:22:[address] [facility] POCT GLUCOSE (AUTOMATED) 2023-12-11 01:22:[address] [facility] POCT GLUCOSE (AUTOMATED) 2023-12-10 22:20:[address] [facility] POCT GLUCOSE (AUTOMATED) 2023-12-10 22:20:[address] [facility] POCT GLUCOSE (AUTOMATED) 2023-12-10 17:50:00 Tanya, [facility] POCT GLUCOSE (AUTOMATED) 2023-12-10 17:50:[address] [facility] POCT GLUCOSE (AUTOMATED) 2023-12-10 16:36:[address] [facility] POCT GLUCOSE (AUTOMATED) 2023-12-10 16:36:[address] [facility] BASIC METABOLIC PANEL (NA, K , CL, CO2, GLUCOSE, BUN, CREATININE, CA) 2023-12-10 08:56:00 [facility] 2023-12-10 08:56:00 [facility] (NA, K , CL, CO2, GLUCOSE, BUN, CREATININE, CA) 2023-12-10 08:56:00 [facility] 2023-12-10 08:56[facility]00 [facility] 2023-12-09 16:54:[address] [facility] UVULOPHARYNGOPALATOPLASY 2023-12-09 16:54:[address] [facility] HYOID SUSPENSION 2023-12-09 16:54:[address] [facility] UVULOPHARYNGOPALATOPLASY 2023-12-09 16:54:[address] [facility] POCT GLUCOSE(AGE >30DAYS) 2023-12-09 14:58:00 jN Connell [facility] POCT GLUCOSE(AGE >30DAYS) 2023-12-09 14:58:00 Nj Connell [facility] POCT GLUCOSE (AUTOMATED) 2023-12-09 14:57:00 [facility] POCT GLUCOSE (AUTOMATED) 2023-12-09 14:57:[address] [facility] POCT TEST 2023-12-09 14:35:00 [facility] 2023-12-09 14:35:00 Mic [facility] LARYNGOSCOPY 2023-11-12 13:58:[address] [facility] EXAM UNDER ANESTHESIA ORAL CAVITY 11-11 13:58:[address] [facility] POCT GLUCOSE (AUTOMATED) 2023-11-12 13:19:[address] [facility] POCT GLUCOSE (AUTOMATED) 2023-11-12 13:19:[address] [facility] POCT TEST 2023-11-12 13:15:00 Yazan Guo [facility] POCT TEST 2023-11-12 13:15:00 Yazan Guo [facility] TRANSTHORACIC ECHO (TTE) COMPLETE 09-13 16:38:05 Babar Pelletier [facility] REFERRAL- REQUEST/RESPONSE 2023-09-07 13:49:27 Doctor Unassigned, Ozora [facility] EXTERNAL PROVIDER RECORDS 2023-08-03 06:01:00 Doctor Unassigned, Ozora [facility] AUTHORIZATION FOR RELEASE OF PHI 2023-06 06:01:00 Doctor Unassigned, Ozora [facility] POCT TEST 2023-06-17 22:56:00 Nicky Peck [facility] POCT URINALYSIS 2023-06-17 22:52:00 Nicky Peck [facility] DME/SUPPLY JUSTIFICATION 2023-06-15 06:01:00 Doctor Unassigned, Ozora [facility] MAGNESIUM 2023-05-15 19:57:00 Nicky Peck [facility] VITAMIN B12, LEVEL 2023-05-15 19:57:00 Nicky Peck [facility] THYROID STIMULATING HORMONE 2023-05-15 19:57:00 Nicky Peck [facility] COMP. METABOLIC PANEL ([id number]) 2023-05-15 19:57:00 Nicky Peck [facility] CBC WITH DIFF 2023-05-15 19:57:00 Nicky Peck [facility] POCT TEST 2023-05-15 00:00:00 Nicky Peck [facility] ALKALINE PHOSPHATASE, TOTAL 2023-04-21 20:58:00 Tian Caro [facility] VITAMIN D, 25-OH 2023-04-21 20:58:00 Tian Caro [facility] N-TELOPEPTIDE, SERUM 2023-04-21 20:58:00 Tian Caro [facility] INTACT PTH CALCIUM GROUP 2023-04-21 20:58:00 Tian Caro [facility] FLU VACC ([id number]), 6 MO-6 4 YRS, .5ML, IM, QUAD (FLUCELVAX) 2023-03-26 20:50:06 Kelly Reynaga [facility] US ABDOMEN LIMITED 2023-02-06 20:45:00 Nicky Peck [facility] ASSIGNMENT OF BENEFITS 2023-02-06 20:13:40 Doctor Unassigned, Ozora [facility] CONSENT/REFUSAL FOR DIAGNOSI S AND TREATMENT 2023-02-06 20:13:17 Doctor Unassigned, Ozora [facility] POCT TEST 2022-12-24 18:42:00 Nicky Peck [facility] POCT URINALYSIS 2022-12-24 18:35:00 Nicky Peck [facility] POCT TEST 2022-11-18 00:00:00 Lisa Yan [facility] ASSIGNMENT OF BENEFITS 2022-11-12 20:11:20 Doctor Unassigned, Ozora [facility] INSURANCE CORRESPONDENCE 2022-10-07 05:01:00 Doctor Unassigned, Ozora [facility] DME/SUPPLY JUSTIFICATION 2022-08-21 05:01:00 Doctor Unassigned, Ozora [facility] DME/SUPPLY JUSTIFICATION 2022-08-01 06:01:00 Doctor Unassigned, Ozora [facility] US ABDOMEN LIMITED 2022-06-17 16:16:37 aJylan Camarillo [facility] POCT TEST 2022-05-19 15:52:00 Nishant Chapman [facility] CONSENT FOR CONTRACEPTION 2022-05-19 06:01:00 Doctor Unassigned, Ozora [facility] POCT TEST 2022-05-05 20:30:00 Nishant Chapman [facility] DISCLOSURE AND CONSENT, MEDI [place] AND SURGICAL PROCEDURES 2022-05-05 06:01:00 Doctor Unassigned, Ozora [facility] POCT TEST 2022-04-17 00:00:00 Nishant Chapman [facility] CBC WITH DIFF 2022-02-19 22:11:00 Vannesa Kaplan [facility] INSURANCE CORRESPONDENCE 2022-02-04 05:01:00 Doctor Unassigned, Ozora [facility] Encounters Start Date/Time End Date/Time Encounter Type Admission Type Attending [facility] Care Facility Care Department Encounter ID Source 2024-04-08 10:52:01 Outpatient Nicky Peck [facility] [id number] [facility] 2025-03-17 13:30:00 2025-03-17 13:30:00 Outpatient LAURA NAVARRO [facility] [id number] [facility] 2025-03-07 15:30:00 2025-03-07 15:30:00 Outpatient KELLY ZAYAS [facility] [id number] [facility] 2025-03-06 09:30:00 2025-03-06 09:30:00 Outpatient LUCY SOTO [facility] [id number] [facility] 2025-02-28 00:00:00 2025-02-28 14:29:44 Telephone Kelly Reynaga [facility] 1.2.840.114 350.1.13.10 4.2.7.2.686 [id number] [facility] 2025-02-28 10:00:00 2025-02-28 12:39:00 Emergency X Kirill Bower [facility] ([facility] 1.2.840.114 350.1.13.10 4.2.7.2.686 [id number] [facility] 2025-02-09 00:00:00 2025-02-28 09:00:25 Telephone Jeffrey Connell [facility] SIVAKUMAR CHICAS 1.2840.114 350.1.13.10 4.2.7.2.686 [id number] [facility] 2025-02-21 00:00:00 2025-02-23 15:57:46 Refill Juhi Critical access hospital CHRIST[facility] MED[facility] OFF[facility] BU[facility] 1.2.840.114 350.1.13.10 4.2.7.2.686 [id number] 044 [id number] [facility] 2025-02-22 00:00:00 2025-02-22 13:58:26 Telephone [facility] 1.2.840.114 350.1.13.10 4.2.7.2.686 [id number] 044 [id number] [facility] 2025-01-11 00:00:00 2025-02-11 18:23:09 Patient Secure Msg [facility] 1.2.840.114 350.1.13.10 4.2.7.2.686 [id number] 044 [id number] [facility] 2025-01-11 00:00:00 2025-02-11 18:22:10 Patient Secure Msg Doctor Unassigned, Ozora Doctor Unassigned, Ozora [facility] 1.2840.114 350.1.13.10 4.2.7.2.686 [id number] 044 [id number] [facility] 2025-02-07 00:00:00 2025-02-09 15:22:06 Telephone Laura Martínez [facility] ([facility]) 1.2840.114 350.1.13.10 4.2.7.2.686 [id number] [facility] 2025-02-02 00:00:00 2025-02-03 11:16:00 Telephone Kelly Reynaga [facility] 1.20.114 350.1.13.10 4.2.7.2.686 [id number] 044 [id number] [facility] 2025-02-01 10:20:00 2025-02-01 10:36:40 Office Visit R Rudi Camarillo [facility] MED[facility] 1.2840.114 350.1.13.10 4.2.7.2.686 [id number] [facility] 2025-02-01 10:20:00 2025-02-01 10:20:00 Outpatient R RUDI CAMARILLO [facility] [id number] [facility] 2025-01-26 00:00:00 2025-01-27 09:24:56 Patient Secure Msg Laura Martínez [facility] ([facility]) 1.2840.114 350.1.13.10 4.2.7.2.686 [id number] [facility] 2025-01-24 00:00:00 2025-01-24 17:02:48 Telephone Tanya Laura [facility] ([facility]) 1.2.840.114 350.1.13.10 4.2.7.2.686 [id number] [facility] 2025-01-16 14:27:00 2025-01-16 14:45:00 Hospital Encounter R FANTA WATSON [facility] GICharles [id number] [facility] 2025-01-16 14:10:00 2025-01-16 14:30:00 Surgery Toño Gant [facility] ICAL SCIENCES BLDG 1.284.114 350.1.13.10 4.2.7.2.686 [id number] [facility] 2025-01-07 00:00:00 2025-01-10 09:05:46 Raj Reynaga [facility] 1.2.840.114 350.1.13.10 4.2.7.2.686 [id number] 044 [id number] [facility] 2025-01-09 12:18:07 2025-01-09 23:59:00 Hospital Encounter ARLENE LAMAR [facility] 1.2840.114 350.1.13.10 4.2.7.2.686 [id number] [facility] 2025-01-09 16:00:00 2025-01-09 15:59:29 Anvilsmith Visit Esdras [facility] BU[facility] 1.2840.114 350.1.13.10 4.2.7.2.686 [id number] [facility] 2025-01-09 15:30:00 2025-01-09 15:57:12 Office Visit R Anene, [facility] OFF[facility] BU[facility] 1.2.840.114 350.1.13.10 4.2.7.2.686 [id number] 044 [id number] [facility] 2025-01-09 10:45:00 2025-01-09 13:12:38 Office Visit R Arlene Cleaning [facility] OFF[facility] BU[facility] 1.2.840.114 350.1.13.10 4.2.7.2.686 [id number] [facility] 2024-12-03 00:00:00 2025-01-07 18:46:31 Patient Secure [facility] 1.2.840.114 350.1.13.10 4.2.7.2.686 [id number] [facility] 2024-12-31 00:00:00 2025-01-02 08:41:58 Babar Lopez [facility] BUILDING 1.2.840.114 350.1.13.10 4.2.7.2.686 [id number] [facility] 2024-11-29 00:00:00 2024-12-31 18:18:55 Patient Secure Msg Finn-Chino s, Lisa [facility] NAL BUILDING 1.2.840.114 350.1.13.10 4.2.7.2.686 [id number] [facility] 2024-11-30 00:00:00 2024-12-31 18:15:45 Patient Secure Msg Finn-[place]ino s, Lisa [facility] BUILDING 1.2.840.114 350.1.13.10 4.2.7.2.686 [id number] [facility] 2024-12-27 15:00:00 2024-12-27 15:00:00 Outpatient R [facility] [id number] [facility] 2024-12-27 15:00:00 2024-12-27 15:00:00 Nurse Visit R Nurse, [facility] Lisa [facility]an [facility] 1..840.114 350.1.13.10 4.2.7.2.686 [id number] [facility] 2024-12-20 16:20:00 2024-12-20 16:21:06 Office Visit R Rudi Camarillo [facility] CH[facility]ST?[facility] 1..840.114 350.1.13.10 4.2.7.2.686 [id number] [facility] 2024-12-20 15:00:00 2024-12-20 15:00:00 Outpatient R KELLY REYNAGA [facility] [id number] [facility] 2024-12-20 09:30:00 2024-12-20 09:30:00 Outpatient R KELLY REYNAGA [facility] [id number] [facility] 2024-12-15 12:26:00 2024-12-15 16:52:00 Emergency X MARGARITO ARIZA PHILLIP [facility] ERT [id number] [facility] 2024-12-12 00:00:00 2024-12-13 02:03:16 Orders Only Doctor Unassigned, Ozora Doctor Unassigned, Ozora [facility] ([facility]) 1..840.114 350.1.13.10 4.2.7.2.686 [id number] [facility] 2024-12-12 08:35:00 2024-12-12 09:11:00 Emergency X JANAY PEREZ SANDRA [facility] ERT [id number] [facility] 2024-12-10 22:17:00 2024-12-11 00:49:00 Emergency X ANGEL LUIS LEON [facility] ERT [id number] [facility] 2024-12-05 00:00:00 2024-12-07 14:25:36 Telephone Yojana-Chino s, Lisa [facility] BUILDING 1.840.114 350.1.13.10 4.2.7.2.686 [id number] [facility] 2024-11-29 15:15:00 2024-11-29 15:30:00 Anvilsmith Visit R Lab, Ang - Db Rudi Camarillo, Ang - Db [facility] MED[facility] OFF[facility] BUILD[facility] 1.84.114 350.1.13.10 4.2.7.2.686 [id number] [facility] 2024-11-29 14:40:00 2024-11-29 14:40:00 Office Visit R Kristopher Camarillobaldemardusty [facility] MED[facility] OFFICE BUILDING 1.84.114 350.1.13.10 4.2.7.2.686 [id number] [facility] 2024-11-22 00:00:00 2024-11-29 09:20:40 Kelly Osborne [facility] MED[facility] OFFICE BUILDING 1.114 350.1.13.10 4.2.7.2.686 [id number] 044 [id number] [facility] 2024-11-25 09:30:00 2024-11-25 09:31:28 Office Visit R YOJANA-CHINO S, LISA FINN-CHINO S, LISA [facility] BUILDING 1.84.114 350.1.13.10 4.2.7.2.686 [id number] [facility] 2024-11-15 00:00:00 2024-11-15 19:08:11 Telephone Stephenie [facility]Critical access hospital?[facility] MED[facility] OFFICE BUILDING 1.2.840.114 350.1.13.10 4.2.7.2.686 [id number] [id number] [facility] 2024-10-11 00:00:00 2024-11-12 18:21:34 Patient Secure Msg Doctor Unassigned, Ozora Doctor Unassigned, Ozora [facility] SCIENCES BLDG 1.2.840.114 350.1.13.10 4.2.7.2.686 [id number] [facility] 2024-11-08 00:00:00 2024-11-09 14:32:39 Telephone [facility]ILD[facility] 1.2840.114 350.1.13.10 4.2.7.2.686 [id number] 044 [id number] [facility] 2024-11-06 00:00:00 2024-11-07 09:05:57 Telephone Stephenie ReynagaCritical access hospital?[facility] MED[facility] OFF[facility] BUILDING 1.2.840.114 350.1.13.10 4.2.7.2.686 [id number] 044 [id number] [facility] 2024-11-06 00:00:00 2024-11-07 02:03:22 Orders Only Doctor Unassigned, Ozora Doctor Unassigned, Ozora [facility] ([facility]) 1.2.840.114 350.1.13.10 4.2.7.2.686 [id number] [facility] 2024-09-29 00:00:00 2024-11-05 18:25:58 Patient Secure Msg Justen Tang [facility] 1.2.840.114 350.1.13.10 4.2.7.2.686 [id number] [id number] [facility] 2024-11-04 16:00:00 2024-11-04 16:30:22 Office Visit R Kelly Reynaga [facility] CHRIST?[facility] 1.2.840.114 350.1.13.10 4.2.7.2.686 [id number] 044 [id number] [facility] 2024 20:00:00 2024 20:29:19 Nurse Visit R VALENTINO CASTILLO [facility] 1.2840.114 350.1.13.10 4.2.7.2.686 [id number] [facility] 2024 00:00:00 2024 17:04:30 Telephone Lisa Mahan [facility] NAL BUILDING 1.2.840.114 350.1.13.10 4.2.7.2.686 [id number] [facility] 2024-10-20 00:00:00 2024-10-25 07:20:04 Tiffany Castillo [facility] ([facility]) 1.2.840.114 350.1.13.10 4.2.7.2.686 [id number] [id number] [facility] 2024-10-20 00:00:00 2024-10-24 09:28:57 Tiffany Castillo [facility] ([facility]) 1.2.840.114 350.1.13.10 4.2.7.2.686 [id number] [id number] [facility] 2024-10-18 00:00:00 2024-10-18 09:39:08 Christian Feliciano [facility] 1.2.840.114 350.1.13.10 4.2.7.2.686 [id number] [facility] 2024-10-10 13:30:00 2024-10-10 14:00:00 Office Visit Tiffany Horne [facility] ([facility]) 1.2840.114 350.1.13.10 4.2.7.2.686 [id number] [facility] 2024-10-10 13:30:00 2024-10-10 13:30:00 Outpatient R TIFFANY HORNE LAUREN [facility] [id number] [facility] 2024-10-10 09:00:00 2024-10-10 09:15:00 Anvilsmith Visit [facility] Tiffany Horne [facility] ([facility]) 1.2840.114 350.1.13.10 4.2.7.2.686 [id number] [facility] 2024-10-04 15:30:00 2024-10-04 15:30:00 Nurse Visit Nurse, [facility] Luke Henderson, Lisa Nurse, [facility] 1.2840.114 350.1.13.10 4.2.7.2.686 [id number] [facility] 2024-10-04 15:30:00 2024-10-04 15:24:07 Outpatient R FINN-CHINO S, LISA FINN-CHINO S, LISA [facility] [id number] [facility] 2024-10-04 13:30:00 2024-10-04 13:54:18 Office Visit Luke Henderson [facility] BUILDING 1.2840.114 350.1.13.10 4.2.7.2.686 [id number] [facility] 2024-09-28 00:00:00 2024-09-29 02:04:01 Orders Only Doctor Unassigned, Ozora Doctor Unassigned, Ozora [facility] ([place]) 1.840.114 350.1.13.10 4.2.7.2.686 [id number] [facility] 2024-09-27 11:01:00 2024-09-27 13:00:00 Outpatient R JUSTEN TANG JUSTEN [facility] GICharles [id number] [facility] 2024-09-27 11:01:00 2024-09-27 13:00:00 Hospital Encounter Justen Tang [facility] ICAL [facility]ENCES BLDG 1.2.840.114 350.1.13.10 4.2.7.2.686 [id number] [facility] 2024-09-27 11:30:00 2024-09-27 12:15:00 Surgery Justen Tang [facility] ICAL SCIENCES BLDG 1.2.840.114 350.1.13.10 4.2.7.2.686 [id number] [id number] [facility] 2024-09-22 00:00:00 2024-09-26 14:38:52 Telephone Kelly Reynaga [facility]?FRANCODusty [facility] 1..840.114 350.1.13.10 4.2.7.2.686 [id number] [facility] 2024-09-21 13:00:00 2024-09-21 13:00:00 Outpatient TIFFANY GAN LAUREN [facility] [id number] [facility] 2024-09-16 13:30:00 2024-09-16 13:54:23 Outpatient R LAURA MARTÍNEZ [facility] [id number] [facility] 2024-09-16 13:30:00 2024-09-16 13:54:23 Office Visit Laura Martínez [facility] ([facility]) 1.2.840.114 350.1.13.10 4.2.7.2.686 [id number] [facility] 2024-09-16 00:00:00 2024-09-16 08:20:28 Telephone Nicky Peck [facility] 1.2.840.114 350.1.13.10 4.2.7.2.686 [id number] [id number] [facility] 2024-09-14 00:00:00 2024-09-15 02:04:17 Orders Only Laura Martínez [facility] ([facility]) 1.2.840.114 350.1.13.10 4.2.7.2.686 [id number] [facility] 2024-09-14 00:00:00 2024-09-15 02:04:07 Orders Only Doctor Unassigned, Ozora Doctor Unassigned, Ozora [facility] ([facility]) 1.2.840.114 350.1.13.10 4.2.7.2.686 [id number] [facility] 2024-09-12 20:00:00 2024-09-12 22:30:00 Anvilsmith Visit Lab, Sleep Lyle San Lab, Sleep [facility] ([facility]) 1.2.840.114 350.1.13.10 4.2.7.2.686 [id number] [facility] 2024-09-12 20:00:00 2024-09-12 20:00:00 Outpatient R LYLE SAN [facility] [id number] [facility] 2024-09-07 15:30:00 2024-09-07 15:54:31 Outpatient R NICKY PECK [facility] [id number] [facility] 2024-09-07 15:30:00 2024-09-07 15:54:31 Office Visit Nicky Peck [facility] MEDICAL OFFICE BUILDING 1.2.840.114 350.1.13.10 4.2.7.2.686 [id number] [facility] 2024-09-02 00:00:00 2024-09-05 09:45:48 Telephone RazgermaineKelly [facility] MEDICAL OFFICE BUILDING 1.2.840.114 350.1.13.10 4.2.7.2.686 [id number] [facility] 2024-07-28 00:00:00 2024-09-03 18:22:18 Patient Secure Msg Doctor Unassigned, Ozora Doctor Unassigned, Ozora [facility] ([facility]) 1.2.840.114 350.1.13.10 4.2.7.2.686 [id number] 071 [id number] [facility] 2024-08-03 00:00:00 2024-09-03 18:16:18 Patient Secure Msg Doctor Unassigned, Ozora Doctor Unassigned, Ozora [facility] MEDICAL OFFICE BUILDING 1.2.840.114 350.1.13.10 4.2.7.2.686 [id number] [id number] [facility] 2024-09-02 20:00:00 2024-09-02 20:00:00 Outpatient R [facility] [id number] [facility] 2024-09-01 13:30:00 2024-09-01 13:30:00 Outpatient R [facility] [id number] [facility] 2024-08-30 14:15:00 2024-08-30 14:15:20 Outpatient R ARLENE CLEANING [facility] [id number] [facility] 2024-08-30 14:15:00 2024-08-30 14:15:20 Office Visit Arlene Cleaning [facility] MEDICAL OFFICE BUILDING 1.84114 350.1.13.10 4.2.7.2.686 [id number] [facility] 2024-08-29 14:30:00 2024-08-29 14:30:00 Outpatient R ARLENE CLEANING [facility] [id number] [facility] 2024-07-27 00:00:00 2024-08-27 18:15:38 Patient Secure Msg Doctor Unassigned, Ozora Doctor Unassigned, Ozora [facility] ([facility]) 1.84.114 350.1.13.10 4.2.7.2.686 [id number] [facility] 2024-08-03 00:00:00 2024-08-08 20:07:39 [facility] 1.84.114 350.1.13.10 4.2.7.2.686 [id number] [facility] 2024-08-02 16:30:00 2024-08-02 16:45:00 Anvilsmith Visit Lab, Ang - Db Kelly Reynaga Lab, Ang - Db [facility]ST?[facility] 1.840.114 350.1.13.10 4.2.7.2.686 [id number] [facility] 2024-08-02 16:00:00 2024-08-02 16:25:03 Outpatient R KELLY REYNAGA [facility] [id number] [facility] 2024-08-02 16:00:00 2024-08-02 16:25:03 [facility] 1.84.114 350.1.13.10 4.2.7.2.686 [id number] [facility] 2024-08-01 13:50:11 2024-08-01 23:59:00 Outpatient R TIFFANY HORNE LAUREN [facility] [id number] [facility] 2024-08-01 13:50:11 2024-08-01 23:59:00 Hospital Encounter Tiffany Horne [facility] 1.2840.114 350.1.13.10 4.2.7.2.686 [id number] [facility] 2024-08-01 10:30:00 2024-08-01 11:16:21 [facility] 1.84.114 350.1.13.10 4.2.7.2.686 [id number] [facility] 2024-07-28 00:00:00 2024-07-29 09:34:10 Telephone Sathya Reynagaa [facility] MED[facility] OFF[facility] 1..114 350.1.13.10 4.2.7.2.686 [id number] [facility] 2024-07-29 00:00:00 2024-07-29 08:28:57 Telephone Rudolph [facility] MED[facility] OFF[facility] BUILD[facility] 1.2.114 350.1.13.10 4.2.7.2.686 [id number] [facility] 2024-07-28 08:32:00 2024-07-28 09:30:00 Emergency X MARGARITO ARIZA PHILLIP MIJAVON [facility] [id number] [facility] 2024-07-28 08:32:00 2024-07-28 09:30:00 Emergency Margarito Ariza [facility] 1.840.114 350.1.13.10 4.2.7.2.686 [id number] [facility] 2024-07-26 00:00:00 2024-07-27 12:03:00 Telephone Jori Mollyekta [facility] ([facility]) 1.2.840.114 350.1.13.10 4.2.7.2.686 [id number] [facility] 2024-07-26 00:00:00 2024-07-27 11:52:07 Telephone Kehinde Hsieh [facility] ([facility]) 1.2.840.114 350.1.13.10 4.2.7.2.686 [id number] [facility] 2024-07-26 12:00:00 2024-07-26 12:00:00 Outpatient KELLY ZAYAS [facility] [id number] [facility] 2024-02-02 00:00:00 2024-07-23 07:03:48 Orders Only Doctor Unassigned, Ozora Doctor Unassigned, Ozora [facility] [facility]) 1.2.840.114 350.1.13.10 4.2.7.2.686 [id number] [facility] 2024-05-24 00:00:00 2024-07-23 06:27:48 Orders Only Doctor Unassigned, Ozora Doctor Unassigned, Ozora [facility] ([facility]) 1.2.840.114 350.1.13.10 4.2.7.2.686 [id number] 009 [id number] [facility] 2024-06-28 00:00:00 2024-07-23 06:16:33 Orders Only Doctor Unassigned, Ozora Doctor Unassigned, Ozora [facility] [place] ([facility]) 1.2.840.114 350.1.13.10 4.2.7.2.686 [id number] [facility] 2024-07-15 00:00:00 2024-07-23 06:09:26 Orders Only Doctor Unassigned, Ozora Doctor Unassigned, Ozora [facility] [place] ([facility]) 1.2.840.114 350.1.13.10 4.2.7.2.686 [id number] [facility] 2023-09-07 00:00:00 2024-07-23 02:31:07 Orders Only Doctor Unassigned, Ozora Doctor Unassigned, Ozora [facility] ([facility]) 1.2.840.114 350.1.13.10 4.2.7.2.686 [id number] [facility] 2024-07-19 12:00:00 2024-07-19 12:15:00 Anvilsmith Visit [facility] Jacob Freeman [facility] ([facility]) 1.2.840.114 350.1.13.10 4.2.7.2.686 [id number] [facility] 2024-07-19 12:00:00 2024-07-19 12:00:00 Outpatient R JACOB FREEMAN [facility] [id number] [facility] 2024-07-19 11:30:00 2024-07-19 12:00:00 Office Visit Kehinde Hsieh Joseph Marc [facility] ([facility]) 1.2.840.114 350.1.13.10 4.2.7.2.686 [id number] [id number] [facility] 2024-07-18 00:00:00 2024-07-18 10:56:59 Telephone Tiffany Horne [facility] ([facility]) 1.2.840.114 350.1.13.10 4.2.7.2.686 [id number] [id number] [facility] 2024-07-18 00:00:00 2024-07-18 09:33:26 Tiffany Castillo [facility] ([facility]) 1.2.840.114 350.1.13.10 4.2.7.2.686 [id number] [id number] [facility] 2024-07-13 14:00:00 2024-07-13 14:15:00 Anvilsmith Visit [facility] Boo Horneen [facility] ([facility]) 1.2.840.114 350.1.13.10 4.2.7.2.686 [id number] [facility] 2024-07-13 14:00:00 2024-07-13 14:00:00 Outpatient Esdras TIFFANY HORNE LAUREN [facility] [id number] [facility] 2024-07-13 13:30:00 2024-07-13 13:30:00 Office Visit TIFFAYN GAN LAUREN [facility] ([facility]) 1.2840.114 350.1.13.10 4.2.7.2.686 [id number] [facility] 2024-07-12 10:30:00 2024-07-12 10:39:53 Outpatient R RADHA MAHANL KIANA S LISA [facility] [id number] [facility] 2024-07-12 10:30:00 2024-07-12 10:39:53 Nurse Visit Nurse, [facility] [facility] Lisa Nurse, [facility] 1.2840.114 350.1.13.10 4.2.7.2.686 [id number] [facility] 2024-07-01 20:00:00 2024-07-01 20:00:00 Outpatient R LYLE SAN [facility] [id number] [facility] 2024-06-24 00:00:00 2024-06-24 15:37:25 Telephone [facility]ht[facility] 1.114 350.1.13.10 4.2.7.2.686 [id number] [facility] 2024-06-24 14:00:00 2024-06-24 14:22:39 Outpatient CHRISTIAN FOSTER [facility] [id number] [facility] 2024-06-24 14:00:00 2024-06-24 14:22:39 Office Visit Christian Henderson [facility] I[facility]TY [facility] 1.84.114 350.1.13.10 4.2.7.2.686 [id number] [facility] 2024-06-22 07:45:00 2024-06-22 08:00:00 Anvilsmith Visit Aparna, Adc Lab Main Gordo Friedman Michael Pob, Adc Lab Main [facility] 1.84.114 350.1.13.10 4.2.7.2.686 [id number] [facility] 2024-06-22 07:45:00 2024-06-22 07:45:00 Outpatient CEM JAQUEZ [facility] [id number] [facility] 2024-06-17 11:30:00 2024-06-17 11:36:28 Outpatient LAURA NAVARRO [facility] [id number] [facility] 2024-06-17 11:30:00 2024-06-17 11:36:28 Office Visit LAURA NAVARRO [facility] ([facility]) 1.84.114 350.1.13.10 4.2.7.2.686 [id number] [facility] 2024-06-15 16:00:00 2024-06-15 16:45:53 Outpatient R MARYJO WHITFIELD CRAIG [facility] [id number] [facility] 2024-06-15 16:00:00 2024-06-15 16:45:00 Ancillary Visit Ryder Mahoneycharles Maryjo Canales Aljude Leandre [facility] BU[facility] 1.2.840.114 350.1.13.10 4.2.7.2.686 [id number] [facility] 2024-06-14 16:30:00 2024-06-14 17:00:00 Office Visit Prabhu Babar [facility] 1.2.840.114 350.1.13.10 4.2.7.2.686 [id number] [facility] 2024-06-14 16:30:00 2024-06-14 16:30:00 Outpatient ALEXIS BAZANDEVIN [facility] [id number] [facility] 2024-06-06 15:15:00 2024-06-06 16:00:00 Ancillary Visit Ayden Johnson Craig L Brown, Robert F [facility] 1.2.840.114 350.1.13.10 4.2.7.2.686 [id number] [facility] 2024-06-06 15:15:00 2024-06-06 15:15:00 Outpatient R MARYJO WHITFIELD CRAIG [facility] [id number] [facility] 2024-06-02 00:00:00 2024-06-03 15:04:26 Telephone Laura Martínez [facility] ([facility]) 1.2.840.114 350.1.13.10 4.2.7.2.686 [id number] [facility] 2024-05-30 00:00:00 2024-05-30 16:15:08 Telephone Josediane lorena [facility] (C) 1.84.114 350.1.13.10 4.2.7.2.686 [id number] [facility] 2024-05-30 04:26:00 2024-05-30 08:11:00 Emergency X MIKE, TRISTIAN MCKEON, TRISTIAN [facility] ERT [id number] [facility] 2024-05-30 04:26:00 2024-05-30 08:11:00 Emergency Linnea Willam, Familia Lerma, Peyton Mejiajavon, Tristian [facility] ([facility]) 1.84.114 350.1.13.10 4.2.7.2.686 [id number] [facility] 2024-05-29 22:31:00 2024-05-30 03:25:00 Emergency X ELIZABETH YEBOAH JULIO [facility] ERT [id number] [facility] 2024-05-29 22:31:00 2024-05-30 03:25:00 Emergency Elizabeth Yeboah [facility] 1.84.114 350.1.13.10 4.2.7.2.686 [id number] [facility] 2024-05-18 15:15:00 2024-05-18 16:00:00 Ancillary Visit Mayra Mahoney Craig L Ifurung, Aljude Leandre N [facility] 1.840.114 350.1.13.10 4.2.7.2.686 [id number] [facility] 2024-05-16 16:45:00 2024-05-16 17:00:00 Anvilsmith Visit Pokatelyn, Ad[facility] Lab Main Jaylan Camarillo, [facility] Lab Main [facility] PROFESSIO NAL BUILDING 1.2840.114 350.1.13.10 4.2.7.2.686 [id number] [facility] 2024-05-16 16:45:00 2024-05-16 16:45:00 Outpatient R CAMARILLO, UMAIR [facility] [id number] [facility] 2024-03-31 00:00:00 2024-05-07 18:26:47 Patient Secure Msg Doctor Unassigned, Ozora Doctor Unassigned, Ozora [facility] 1.2.840.114 350.1.13.10 4.2.7.2.686 [id number] [facility] 2024-05-02 08:00:00 2024-05-02 08:47:50 Outpatient R MARYJO WHITFIELD CRAIG [facility] [id number] [facility] 2024-05-02 08:00:00 2024-05-02 08:45:00 Ancillary Visit Kayla Briceno Craig L Johanson, Dara [facility] BUILDING 1.2.840.114 350.1.13.10 4.2.7.2.686 [id number] [facility] 2024-04-27 00:00:00 2024-04-28 12:49:38 Telephone Kelly Reynaga [facility] 1.2.840.114 350.1.13.10 4.2.7.2.686 [id number] [facility] 2024-04-19 15:30:00 2024-04-19 15:48:03 Outpatient NISHANT OROPEZA VIEN [facility] [id number] [facility] 2024-04-19 15:30:00 2024-04-19 15:48:03 Nurse Visit Nurse, [facility] Nishant Chapman [facility] 1.2.840.114 350.1.13.10 4.2.7.2.686 [id number] [facility] 2024-04-18 13:00:00 2024-04-18 13:45:00 Ancillary Visit Kayla Briceno Craig L Johanson, Dara [facility] PROF[facility] NAL BUILDING 1.2.840.114 350.1.13.10 4.2.7.2.686 [id number] [facility] 2024-04-08 09:30:00 2024-04-08 09:30:00 Outpatient R [facility] [id number] [facility] 2024-04-08 00:00:00 2024-04-08 00:00:00 Office Visit- New Pt.- Level 3 CLS CLS [id number] [facility] 2024-04-05 11:30:00 2024-04-05 11:55:19 Outpatient R LUKE HENDERSON SHIWAN [facility] [id number] [facility] 2024-04-05 11:30:00 2024-04-05 11:55:19 Office Visit Luke Henderson [facility] BUILDING 1.2.840.114 350.1.13.10 4.2.7.2.686 [id number] [facility] 2024-03-31 00:00:00 2024-03-31 15:20:51 Letter (Out) [facility] ([place]) 1.2.840.114 350.1.13.10 4.2.7.2.686 [id number] [facility] 2024-03-25 16:00:00 2024-03-25 16:37:21 Outpatient R LAURA MARTÍNEZ [facility] [id number] [facility] 2024-03-25 16:00:00 2024-03-25 16:37:21 Office Visit Laura Martínez [facility] ([facility]) 1.2840.114 350.1.13.10 4.2.7.2.686 [id number] [facility] 2024-03-23 13:56:48 2024-03-23 23:59:00 Outpatient R NICKY PECK [facility] [id number] [facility] 2024-03-23 13:56:48 2024-03-23 23:59:00 Hospital Encounter R NICKY PECK [facility] MED[facility] OFF[facility] BU[facility] 1.2840.114 350.1.13.10 4.2.7.2.686 [id number] [facility] 2024-03-23 13:30:00 2024-03-23 13:57:37 Office Visit Nicky Peck [facility] MEDICAL OFFICE BUILDING 1.2840.114 350.1.13.10 4.2.7.2.686 [id number] [id number] [facility] 2024-02-16 00:00:00 2024-02-22 17:22:13 Telephone Kelly Reynaga [facility] BUILDING 1.2840.114 350.1.13.10 4.2.7.2.686 [id number] 044 [id number] [facility] 2024-02-18 09:30:00 2024-02-18 09:55:12 Outpatient R KELLY REYNAGA [facility] [id number] [facility] 2024-02-18 09:30:00 2024-02-18 09:55:12 [facility] MED[facility] OFF[facility] BUILD[facility] 1.2840.114 350.1.13.10 4.2.7.2.686 [id number] [facility] 2024-02-17 00:00:00 2024-02-17 13:35:53 Telephone Stephenie ReynagaCritical access hospital?[facility] MED[facility] OFF[facility] BU[facility] 1.2840.114 350.1.13.10 4.2.7.2.686 [id number] [facility] 2024-02-16 00:00:00 2024-02-16 17:28:11 Nurse Triage Katie Connell Teresa D [facility] 1.2840.114 350.1.13.10 4.2.7.2.686 [id number] [facility] 2024-02-01 00:00:00 2024-02-01 10:16:13 Telephone Stephenie ReynagaCritical access hospital?[facility] MEDICAL OFFICE BUILDING 1.2840.114 350.1.13.10 4.2.7.2.686 [id number] [id number] [facility] 2024-01-27 00:00:00 2024-01-29 09:42:25 Telephone Juhi [facility] MEDICAL OFFICE BUILDING 1.2840.114 350.1.13.10 4.2.7.2.686 [id number] 044 [id number] [facility] 2024-01-26 15:30:00 2024-01-26 16:11:16 Outpatient R KIANA Farmer, LISA ILENE MAHANSOL [facility] [id number] [facility] 2024-01-26 15:30:00 2024-01-26 16:11:16 Nurse Visit Nurse, [facility] Lisa Mahan [facility] 1.2840.114 350.1.13.10 4.2.7.2.686 [id number] [facility] 2024-01-15 00:00:00 2024-01-18 12:30:07 Telephone Kelly Reynaga [facility] MEDICAL OFFICE BUILDING 1.84.114 350.1.13.10 4.2.7.2.686 [id number] [id number] [facility] 2023-12-15 00:00:00 2024-01-16 18:21:03 Patient Secure Msg Doctor Unassigned, Ozora Doctor Unassigned, Ozora [facility] 1.84.114 350.1.13.10 4.2.7.2.686 [id number] [facility] 2024-01-14 13:15:00 2024-01-14 13:30:00 Anvilsmith Visit Lab, Nicky Whitaker Lab, River Callahan [facility] MEDICAL OFFICE BUILDING 1.84.114 350.1.13.10 4.2.7.2.686 [id number] [facility] 2024-01-14 12:30:00 2024-01-14 12:59:19 Outpatient R NICKY PECK [facility] [id number] [facility] 2024-01-14 12:30:00 2024-01-14 12:59:19 Office Visit Nicky Peck [facility] MEDICAL OFFICE BUILDING 1.2840.114 350.1.13.10 4.2.7.2.686 [id number] [facility] 2024-01-13 00:00:00 2024-01-14 11:15:28 Nurse Triage RazgermaineStephenieKelly [facility] MEDICAL OFFICE BUILDING 1.2.840.114 350.1.13.10 4.2.7.2.686 [id number] [facility] 2024-01-13 15:00:00 2024-01-13 15:00:00 Outpatient R NICKY PECK [facility] [id number] [facility] 2023-12-25 13:00:00 2023-12-25 13:51:04 Outpatient R LAURA MARTÍNEZ [facility] [id number] [facility] 2023-12-25 13:00:00 2023-12-25 13:51:04 Office Visit Tanya [facility] 1.2840.114 350.1.13.10 4.2.7.2.686 [id number] [facility] 2023-12-19 00:00:00 2023-12-24 13:33:27 Telephone Tanya [facility] 1.2.840.114 350.1.13.10 4.2.7.2.686 [id number] [facility] 2023-12-22 10:00:00 2023-12-22 10:51:30 Outpatient R ALEXIS [facility] [id number] [facility] 2023-12-22 10:00:00 2023-12-22 10:51:30 Office Visit Babar Pelletier [facility] 1.2.840.114 350.1.13.10 4.2.7.2.686 [id number] [facility] 2023-12-19 03:39:00 2023-12-19 07:11:00 Emergency X MILVIA CHEUNG WAKILI [facility] ERT [id number] [facility] 2023-12-19 03:39:00 2023-12-19 07:11:00 Emergency Milvia Cheung [facility] 1.2.840.114 350.1.13.10 4.2.7.2.686 [id number] [facility] 2023-12-17 00:00:00 2023-12-17 11:45:10 Telephone Jaime Carohammaaarti Montano [facility] 1.2840.114 350.1.13.10 4.2.7.2.686 [id number] [facility] 2023-12-16 10:20:00 2023-12-16 10:40:00 Urgent Care Franchesca Spiveynakita Unknown, Attending [facility] MEDICAL OFFICE BUILDING 1.840.114 350.1.13.10 4.2.7.2.686 [id number] [facility] 2023-12-16 10:20:00 2023-12-16 10:20:00 Outpatient R VIOLA SPIVEY [facility] [id number] [facility] 2023-12-09 09:21:00 2023-12-11 13:40:00 [facility] [id number] [facility] 2023-12-09 09:21:00 2023-12-11 13:40:00 Hospital Encounter [facility] 1.2840.114 350.1.13.10 4.2.7.2.686 [id number] [facility] 2023-12-09 11:24:00 2023-12-09 15:10:00 Surgery [facility] 1.2840.114 350.1.13.10 4.2.7.2.686 [id number] [facility] 2023-12-07 16:30:00 2023-12-07 17:03:52 Anvilsmith Visit Lab, Kelly De Jesus [facility] MEDICAL OFFICE BUILDING 1.2840.114 350.1.13.10 4.2.7.2.686 [id number] [facility] 2023-12-07 16:00:00 2023-12-07 16:10:04 Outpatient R KELLY REYNAGA [facility] [id number] [facility] 2023-12-07 16:00:00 2023-12-07 16:10:04 Office Visit Stephenie Reynagathia [facility] MEDICAL OFFICE BUILDING 1.2.840.114 350.1.13.10 4.2.7.2.686 [id number] [facility] 2023-12-04 15:00:00 2023-12-04 15:00:00 Office Visit Makaylashagufta Laura [facility] 1.2.840.114 350.1.13.10 4.2.7.2.686 [id number] [facility] 2023-12-04 15:00:00 2023-12-04 14:14:51 Outpatient R LAURA MARTÍNEZ [facility] [id number] [facility] 2023-11-26 14:30:00 2023-11-26 14:45:00 Anvilsmith Visit Aparna, Facundo Lab Main [place], Lisa [facility] PROFESSIO NAL BUILDING 1.2.840.114 350.1.13.10 4.2.7.2.686 [id number] [facility] 2023-11-26 14:30:00 2023-11-26 14:30:00 Outpatient R FINN-CHINO S, LISA FINN-CHINO S, LISA [facility] [id number] [facility] 2023-11-20 15:00:00 2023-11-20 15:47:57 Outpatient R FINN-CHINO S, LISA FINN-CHINO S, LISA [facility] [id number] [facility] 2023-11-20 15:00:00 2023-11-20 15:47:57 Office Visit [place] Lisa [facility] BUILD[facility] 1.2840.114 350.1.13.10 4.2.7.2.686 [id number] [facility] 2023-11-12 09:50:00 2023-11-12 10:59:00 Surgery [facility] 1.20.114 350.1.13.10 4.2.7.2.686 [id number] [facility] 2023-11-12 07:58:00 2023-11-12 10:31:00 Outpatient [facility] [id number] [facility] 2023-11-12 07:58:00 2023-11-12 10:31:00 Hospital Encounter [facility] 1.20.114 350.1.13.10 4.2.7.2.686 [id number] [facility] 2023 10:30:00 2023 10:50:41 Outpatient R NISHANT CHAPMAN [facility] [id number] [facility] 2023 10:30:00 2023 10:50:41 Nurse Visit Nurse, [facility] Nishant Chapman [facility] BUILDING 1.2840.114 350.1.13.10 4.2.7.2.686 [id number] [facility] 2023-10-23 14:00:00 2023-10-23 14:30:00 [facility] 1.2.114 350.1.13.10 4.2.7.2.686 [id number] [facility] 2023-10-23 14:00:00 2023-10-23 14:00:00 Outpatient [facility] [id number] [facility] 2023-10-21 00:00:00 2023-10-21 16:47:02 Telephone JoseLaura contreras [facility] 1.840.114 350.1.13.10 4.2.7.2.686 [id number] [facility] 2023-10-21 11:00:00 2023-10-21 11:30:00 Office Visit Gordo, Tian Dusty [facility] 1.84.114 350.1.13.10 4.2.7.2.686 [id number] [facility] 2023-10-21 11:00:00 2023-10-21 11:00:00 Outpatient R GORDO OVERTON [facility] [id number] [facility] 2023-10-20 20:00:00 2023-10-20 20:00:00 Outpatient R [facility] [id number] [facility] 2023-10-19 08:00:00 2023-10-19 08:15:00 Anvilsmith Visit Aparna, Adc Lab Main Obey Cage [facility] ..840.114 350.1.13.10 4.2.7.2.686 [id number] [facility] 2023-10-19 08:00:00 2023-10-19 08:00:00 Outpatient R NILES OBEY [facility] [id number] [facility] 2023-10-05 13:45:00 2023-10-05 14:00:00 Anvilsmith Visit Aparna, Adc Lab Main Luke Henderson Umair M [facility] 1..840.114 350.1.13.10 4.2.7.2.686 [id number] [facility] 2023-10-05 10:00:00 2023-10-05 11:08:38 Outpatient R LUKE HENDERSON SUNILSCShagufta [facility] [id number] [facility] 2023-10-05 10:00:00 2023-10-05 11:08:38 Office Visit Luke Henderson [facility] 1.2.840.114 350.1.13.10 4.2.7.2.686 [id number] [facility] 2023-09-30 20:00:00 2023-09-30 22:30:00 Anvilsmith Visit 1, [facility] Sleep Lab Bed SukumartessKenzie engel [facility] 1.2.840.114 350.1.13.10 4.2.7.2.686 [id number] [facility] 2023-09-30 20:00:00 2023-09-30 20:00:00 Outpatient R KENZIE SETHI STRAFLSage [facility] [id number] [facility] 2023-09-22 09:30:00 2023-09-22 10:23:44 Outpatient R PELLETIERMELQUIADES YoonMOLLY [facility] [id number] [facility] 2023-09-22 09:30:00 2023-09-22 10:00:00 Office Visit Prabhu [facility] BUILDING 1.2.840.114 350.1.13.10 4.2.7.2.686 [id number] [facility] 2023-09-15 00:00:00 2023-09-15 00:00:00 Telephone Prabhu [facility] 1.2.840.114 350.1.13.10 4.2.7.2.686 [id number] [facility] 2023-09-14 10:00:00 2023-09-14 23:59:00 Outpatient R PELLETIER, [facility] [id number] [facility] 2023-09-14 10:00:00 2023-09-14 23:59:00 Hospital Encounter Prabhu [facility] 1.2.840.114 350.1.13.10 4.2.7.2.686 [id number] [facility] 2023-09-14 08:30:00 2023-09-14 09:59:00 Hospital Encounter Prabhu [facility] BUILDING 1.2.840.114 350.1.13.10 4.2.7.2.686 [id number] [facility] 2023-09-11 12:15:00 2023-09-11 12:53:23 Outpatient KELLY ZAYAS [facility] [id number] [facility] 2023-09-11 12:15:00 2023-09-11 12:30:00 Anvilsmith Visit Lab, [facility] 1.2.840.114 350.1.13.10 4.2.7.2.686 [id number] 353 [id number] [facility] 2023-08-25 09:30:00 2023-08-25 10:03:43 Outpatient R PRABHU [facility] [id number] [facility] 2023-08-25 09:30:00 2023-08-25 10:03:43 Office Visit Prabhu [facility] BUILDING 1.2.840.114 350.1.13.10 4.2.7.2.686 [id number] [facility] 2023-08-10 08:00:00 2023-08-10 08:11:33 Outpatient R LISA MAHAN MARISOL [facility] [id number] [facility] 2023-08-10 08:00:00 2023-08-10 08:11:33 Nurse Visit Nurse, [facility] Kiana marleny Lisa [facility] NAL BUILDING 1.2.840.114 350.1.13.10 4.2.7.2.686 [id number] [facility] 2023-08-10 00:00:00 2023-08-10 00:00:00 Telephone Luke Henderson [facility] NAL BUILDING 1.2.840.114 350.1.13.10 4.2.7.2.686 [id number] [id number] [facility] 2023-08-04 10:30:00 2023-08-04 11:11:28 Outpatient R [facility] [id number] [facility] 2023-08-04 10:30:00 2023-08-04 11:11:28 Office Visit Luke Henderson [facility] BUILDING 1.2.840.114 350.1.13.10 4.2.7.2.686 [id number] 085 [id number] [facility] 2023-08-04 00:00:00 2023-08-04 00:00:00 Telephone Kelly Reynaga [facility] 1.2.840.114 350.1.13.10 4.2.7.2.686 [id number] 044 [id number] [facility] 2023-08-03 00:00:00 2023-08-03 00:00:00 Orders Only Doctor Unassigned, Ozora [facility] 1.2840.114 350.1.13.10 4.2.7.2.686 [id number] [facility] 2023-07-30 00:00:00 2023-07-30 00:00:00 Refill Kelly Reynaga [facility] 1..840.114 350.1.13.10 4.2.7.2.686 [id number] 044 [id number] [facility] 2023-07-24 13:00:00 2023-07-24 13:39:25 Outpatient R NICKY PECK [facility] [id number] [facility] 2023-07-24 13:00:00 2023-07-24 13:39:25 Office Visit Nicky Peck [facility] 1.2.840.114 350.1.13.10 4.2.7.2.686 [id number] 044 [id number] [facility] 2023-07-23 14:30:00 2023-07-23 15:00:00 Office Visit Obey Cage [facility] 1..840.114 350.1.13.10 4.2.7.2.686 [id number] [facility] 2023-07-23 14:30:00 2023-07-23 14:30:00 Outpatient R OBEY CAGE [facility] [id number] [facility] 2023-07-15 00:00:00 2023-07-15 00:00:00 Telephone Tian Caro [facility] 1.2.840.114 350.1.13.10 4.2.7.2.686 [id number] [facility] 2023-07-10 00:00:00 2023-07-10 00:00:00 Refill Tian Caro [facility] 1..840.114 350.1.13.10 4.2.7.2.686 [id number] [facility] 2023-06-25 00:00:00 2023-06-25 00:00:00 Refill JuhiKelly [facility] MEDICAL OFFICE BUILDING 1.840.114 350.1.13.10 4.2.7.2.686 [id number] 044 [id number] [facility] 2023-06-19 00:00:00 2023-06-19 00:00:00 Orders Only Doctor Unassigned, Ozora [facility] 1.2114 350.1.13.10 4.2.7.2.686 [id number] [facility] 2023-06-17 16:30:00 2023-06-17 17:26:16 Outpatient R NICKY PECK [facility] [id number] [facility] 2023-06-17 16:30:00 2023-06-17 17:26:16 Office Visit Nicky Peck [facility] MEDICAL OFFICE BUILDING 1.84.114 350.1.13.10 4.2.7.2.686 [id number] 044 [id number] [facility] 2023-06-17 17:00:00 2023-06-17 17:15:00 Anvilsmith Visit Lab, Nicky Whitaker [facility] MEDICAL OFFICE BUILDING 1.840.114 350.1.13.10 4.2.7.2.686 [id number] [facility] 2023-06-15 00:00:00 2023-06-15 00:00:00 Orders Only Doctor Unassigned, Ozora [facility] 1.284.114 350.1.13.10 4.2.7.2.686 [id number] [facility] 2023-06-12 00:00:00 2023-06-12 00:00:00 Telephone Nicky Peck [facility] MEDICAL OFFICE BUILDING 1.2.840.114 350.1.13.10 4.2.7.2.686 [id number] 044 [id number] [facility] 2023-06-11 00:00:00 2023-06-11 00:00:00 Telephone Nicky Peck [facility] OFFICE BUILDING 1.2.840.114 350.1.13.10 4.2.7.2.686 [id number] 044 [id number] [facility] 2023-06-11 00:00:00 2023-06-11 00:00:00 Telephone Nicky Peck [facility] MEDICAL OFFICE BUILDING 1.2840.114 350.1.13.10 4.2.7.2.686 [id number] 044 [id number] [facility] 2023-06-10 14:15:45 2023-06-10 23:59:00 Outpatient R CISCONICKY [facility] [id number] [facility] 2023-06-10 14:15:45 2023-06-10 23:59:00 Hospital Encounter Cisco Nicky Montano [facility] 1.2.840.114 350.1.13.10 4.2.7.2.686 [id number] [facility] 2023-05-25 00:00:00 2023-05-25 00:00:00 Telephone Tian Caro [facility] 1.2.840.114 350.1.13.10 4.2.7.2.686 [id number] 220 [id number] [facility] 2023-05-21 00:00:00 2023-05-21 00:00:00 Telephone Kelly Reynaga [facility] MEDICAL OFFICE BUILDING 1.2.840.114 350.1.13.10 4.2.7.2.686 [id number] 044 [id number] [facility] 2023-05-19 00:00:00 2023-05-19 00:00:00 Telephone Nicky Peck [facility] MEDICAL OFFICE BUILDING 1..840.114 350.1.13.10 4.2.7.2.686 [id number] 044 [id number] [facility] 2023-05-18 10:30:00 2023-05-18 11:20:17 Outpatient R NISHANT CHAPMAN [facility] [id number] [facility] 2023-05-15 14:00:00 2023-05-15 14:15:00 Anvilsmith Visit Lab, Ang - Db Nicky Peck [facility] MEDICAL OFFICE BUILDING 1..840.114 350.1.13.10 4.2.7.2.686 [id number] 353 [id number] [facility] 2023-05-15 13:00:00 2023-05-15 13:51:35 Outpatient R CISCO NICKY [facility] [id number] [facility] 2023-05-15 13:00:00 2023-05-15 13:51:35 Office Visit Nicky Peck [facility] MEDICAL OFFICE BUILDING 1..840.114 350.1.13.10 4.2.7.2.686 [id number] 044 [id number] [facility] 2023-04-21 15:00:00 2023-04-21 15:30:00 Office Visit Tian Caro [facility] 1..840.114 350.1.13.10 4.2.7.2.686 [id number] [facility] 2023-04-21 15:00:00 2023-04-21 15:00:00 Outpatient R TIAN CARO [facility] [id number] [facility] 2023-04-20 15:53:37 2023-04-20 15:53:[address] [facility] [facility] [id number] Mateusz Dorado 2023-03-26 16:00:00 2023-03-26 16:15:00 Anvilsmith Visit Lab, River Callahan Stephenie ReynagaCritical access hospital?[facility] OFFICE BUILDING 1..840.114 350.1.13.10 4.2.7.2.686 [id number] 353 [id number] [facility] 2023-03-26 15:30:00 2023-03-26 16:01:32 Office [facility] MED[facility] OFFICE BUILDING 1..840.114 350.1.13.10 4.2.7.2.686 [id number] 044 [id number] [facility] 2023-03-26 16:00:00 2023-03-26 16:00:00 Outpatient R RAZGERMAINESTEPHENIEKELLY [facility] [id number] [facility] 2023-02-23 10:00:00 2023-02-23 10:00:00 Nurse Visit Nurse, [facility] Ilene Mahansol [facility] NAL [facility] 1..840.114 350.1.13.10 4.2.7.2.686 [id number] [facility] 2023-02-23 10:00:00 2023-02-23 09:45:09 Outpatient R ILENE MAHANSOL YOJANA-CHINO SILENELISA [facility] [id number] [facility] 2023-02-06 15:13:36 2023-02-06 23:59:00 Outpatient NICKY JULES [facility] [id number] [facility] 2023-02-06 15:00:00 2023-02-06 23:59:00 Hospital Encounter Nicky Peck [facility] 1..840.114 350.1.13.10 4.2.7.2.686 [id number] [facility] 2023-02-06 00:00:00 2023-02-06 00:00:00 Patient Secure Msg Doctor Unassigned, Ozora [facility] 1.2840.114 350.1.13.10 4.2.7.2.686 [id number] [facility] 2023-02-05 00:00:00 2023-02-05 00:00:00 Telephone RazKelly herron [facility] MEDICAL OFFICE BUILDING 1.2840.114 350.1.13.10 4.2.7.2.686 [id number] 044 [id number] [facility] 2023-02-02 00:00:00 2023-02-02 00:00:00 Telephone Nicky Peck [facility] MEDICAL OFFICE BUILDING 1.2840.114 350.1.13.10 4.2.7.2.686 [id number] [id number] [facility] 2023-02-01 00:00:00 2023-02-01 00:00:00 Telephone Nicky Peck [facility] MEDICAL OFFICE BUILDING 1.2840.114 350.1.13.10 4.2.7.2.686 [id number] 044 [id number] [facility] 2023-01-26 00:00:00 2023-01-26 00:00:00 Refill Kelly Reynaga [facility] MEDICAL OFFICE BUILDING 1.2840.114 350.1.13.10 4.2.7.2.686 [id number] 044 [id number] [facility] 2023-01-24 00:00:00 2023-01-24 00:00:00 Refill Kelly Reynaga [facility] MEDICAL OFFICE BUILDING 1.2840.114 350.1.13.10 4.2.7.2.686 [id number] 044 [id number] [facility] 2023-01-07 14:00:00 2023-01-07 14:34:41 Outpatient R KELLY REYNAGA [facility] [id number] [facility] 2023-01-07 14:00:00 2023-01-07 14:15:00 Anvilsmith Visit Lab, River JohnsonStephenie [facility]ronO[facility] HospitalMARY [facility] MEDICAL OFFICE BUILDING 1..840.114 350.1.13.10 4.2.7.2.686 [id number] [facility] 2023-01-02 00:00:00 2023-01-02 00:00:00 Telephone Nicky Peck Dusty [facility] MEDICAL OFFICE BUILDING 1..840.114 350.1.13.10 4.2.7.2.686 [id number] 044 [id number] [facility] 2022-12-24 14:30:00 2022-12-24 14:45:00 Anvilsmith Visit Lab, River Peck Nicky Montano [facility] MEDICAL OFFICE BUILDING 1..840.114 350.1.13.10 4.2.7.2.686 [id number] [facility] 2022-12-24 13:00:00 2022-12-24 13:43:30 Outpatient R NICKY PECK [facility] [id number] [facility] 2022-12-24 13:00:00 2022-12-24 13:43:30 Office Visit Nicky Peck Dusty [facility] MEDICAL OFFICE BUILDING 1..840.114 350.1.13.10 4.2.7.2.686 [id number] 044 [id number] [facility] 2022-12-24 00:00:00 2022-12-24 00:00:00 Refill Nicky Peck [facility] MED[facility] OFFICE BUILDING 1.840.114 350.1.13.10 4.2.7.2.686 [id number] [facility] 2022-12-16 00:00:00 2022-12-16 00:00:00 Refill Nicky Peck [facility] MEDICAL OFFICE BUILDING 1.20.114 350.1.13.10 4.2.7.2.686 [id number] 044 [id number] [facility] 2022-11-18 08:30:00 2022-11-18 09:00:00 Office Visit Kiana farmer Lisa [facility] BUILDING 1.84.114 350.1.13.10 4.2.7.2.686 [id number] [facility] 2022-11-18 08:30:00 2022-11-18 08:30:00 Outpatient R FINN-CHINO S, LISA FINN-CHINO S, LISA [facility] [id number] [facility] 2022-11-13 00:00:00 2022-11-13 00:00:00 Telephone Nicky Peck [facility] BUILDING 1.840.114 350.1.13.10 4.2.7.2.686 [id number] 044 [id number] [facility] 2022-11-12 15:30:00 2022-11-12 15:48:52 Outpatient R NICKY PECK [facility] [id number] [facility] 2022-11-12 15:30:00 2022-11-12 15:48:52 Office Visit Nicky Peck [facility] MEDICAL OFFICE BUILDING 1.284.114 350.1.13.10 4.2.7.2.686 [id number] 044 [id number] [facility] 2022-11-12 15:15:00 2022-11-12 15:30:00 Anvilsmith Visit Lab, Nicky Whitaker [facility] MEDICAL OFFICE BUILDING 1.2840.114 350.1.13.10 4.2.7.2.686 [id number] [facility] 2022-11-12 00:00:00 2022-11-12 00:00:00 Orders Only Doctor Unassigned, Ozora [facility] 1.0.114 350.1.13.10 4.2.7.2.686 [id number] 009 [id number] [facility] 2022-10-07 00:00:00 2022-10-07 00:00:00 Orders Only Doctor Unassigned, Ozora [facility] 1.0.114 350.1.13.10 4.2.7.2.686 [id number] 009 [id number] [facility] 2022-10-03 00:00:00 2022-10-03 00:00:00 Nurse Triage Fabi Kaminskin [facility] 1.840.114 350.1.13.10 4.2.7.2.686 [id number] [facility] 2022-10-02 00:00:00 2022-10-02 00:00:00 Refill Juhi KellyCritical access hospital?[facility] MEDICAL OFFICE BUILDING 1.2840.114 350.1.13.10 4.2.7.2.686 [id number] 044 [id number] [facility] 2022-09-18 00:00:00 2022-09-18 00:00:00 Pedro Reynaga Kelly [facility] MEDICAL OFFICE BUILDING 1.2840.114 350.1.13.10 4.2.7.2.686 [id number] 044 [id number] [facility] 2022-09-08 15:00:00 2022-09-08 15:35:57 Outpatient R KELLY REYNAGA [facility] [id number] [facility] 2022-09-08 15:00:00 2022-09-08 15:35:57 [facility] 1.2840.114 350.1.13.10 4.2.7.2.686 [id number] 044 [id number] [facility] 2022-09-08 00:00:00 2022-09-08 00:00:00 Telephone [facility] OFF[facility] BUILDING 1.284.114 350.1.13.10 4.2.7.2.686 [id number] 044 [id number] [facility] 2022-08-21 00:00:00 2022-08-21 00:00:00 Orders Only Doctor Unassigned, Ozora [facility] 1.2840.114 350.1.13.10 4.2.7.2.686 [id number] [facility] 2022-08-20 00:00:00 2022-08-20 00:00:00 Telephone [facility] BUILDING 1.84.114 350.1.13.10 4.2.7.2.686 [id number] 044 [id number] [facility] 2022-08-18 00:00:00 2022-08-18 00:00:00 Telephone Nishant Chapman [facility] 1.284.114 350.1.13.10 4.2.7.2.686 [id number] 134 [id number] [facility] 2022-08-12 10:30:00 2022-08-12 11:17:30 Outpatient R NISHANT CHAPMAN [facility] [id number] [facility] 2022-08-12 10:30:00 2022-08-12 11:17:30 Nurse Visit Nurse, [facility] Nishant Chapman [facility] NAL BUILDING 1.2840.114 350.1.13.10 4.2.7.2.686 [id number] 134 [id number] [facility] 2022-08-08 09:30:00 2022-08-08 10:00:00 Office Visit Kelly Reynaga [facility] BUILD[facility] 1.84.114 350.1.13.10 4.2.7.2.686 [id number] 044 [id number] [facility] 2022-08-08 09:30:00 2022-08-08 09:30:00 Outpatient R KELLY REYNAGA [facility] [id number] [facility] 2022-08-01 00:00:00 2022-08-01 00:00:00 Orders Only Doctor Unassigned, Ozora [facility] 1..114 350.1.13.10 4.2.7.2.686 [id number] [id number] [facility] 2022-07-30 00:00:00 2022-07-30 00:00:00 Telephone Juhi Kelly [facility] 1.84.114 350.1.13.10 4.2.7.2.686 [id number] 044 [id number] [facility] 2022-07-01 00:00:00 2022-07-01 00:00:00 Telephone [facility] 1.284.114 350.1.13.10 4.2.7.2.686 [id number] 044 [id number] [facility] 2022-06-27 16:30:00 2022-06-27 16:45:00 Anvilsmith Visit Lab, Ang - Db Juhi [facility] OFF[facility] BUILDING 1.2.840.114 350.1.13.10 4.2.7.2.686 [id number] [facility] 2022-06-27 16:00:00 2022-06-27 16:37:43 [facility] [id number] 2022-06-27 16:00:00 2022-06-27 16:37:43 Office Visit Juhi [facility] BUILD[facility] 1.2.840.114 350.1.13.10 4.2.7.2.686 [id number] 044 [id number] [facility] 2022-06-17 09:32:15 2022-06-17 23:59:00 Outpatient R ROMINA [facility] [id number] [facility] 2022-06-17 09:32:15 2022-06-17 23:59:00 Hospital Encounter Romina [facility] 1.2.840.114 350.1.13.10 4.2.7.2.686 [id number] [facility] 2022-06-12 11:30:00 2022-06-12 11:45:00 Anvilsmith Visit Aparna, Facundo [facility] NAL BUILDING 1.2.840.114 350.1.13.10 4.2.7.2.686 [id number] [facility] 2022-06-12 11:30:00 2022-06-12 11:30:00 Outpatient R ROMINA [facility] [id number] [facility] 2022-05-19 09:30:00 2022-05-19 09:50:10 Outpatient R NISHANT CHAPMAN [facility] [id number] [facility] 2022-05-19 09:30:00 2022-05-19 09:50:10 Office Visit Nishant Chapman [facility] BUILDING 1.2.840.114 350.1.13.10 4.2.7.2.686 [id number] [facility] 2022-05-19 00:00:00 2022-05-19 00:00:00 Orders Only Doctor Unassigned, Ozora [facility] 1.2840.114 350.1.13.10 4.2.7.2.686 [id number] [facility] 2022-05-09 09:30:00 2022-05-09 09:30:00 Outpatient R JUHI KELLY [facility] [id number] [facility] 2022-05-09 00:00:00 2022-05-09 00:00:00 Telephone Kelly Reynaga [facility] 1.2.840.114 350.1.13.10 4.2.7.2.686 [id number] [facility] 2022-05-05 13:30:00 2022-05-05 14:52:24 Outpatient R NISHANT CHAPMAN [facility] [id number] [facility] 2022-05-05 13:30:00 2022-05-05 14:52:24 Office Visit Nishant Chapman [facility] BUILDING 1.2.840.114 350.1.13.10 4.2.7.2.686 [id number] [facility] 2022-05-05 00:00:00 2022-05-05 00:00:00 Orders Only Doctor Unassigned, Ozora [facility] 1.2840.114 350.1.13.10 4.2.7.2.686 [id number] [facility] 2022-04-17 10:30:00 2022-04-17 11:26:08 Outpatient R NISHANT CHAPMAN [facility] [id number] [facility] 2022-04-17 10:30:00 2022-04-17 11:26:08 Office Visit Nishant Chapman [facility] 1.2.840.114 350.1.13.10 4.2.7.2.686 [id number] [facility] 2022-04-15 10:00:00 2022-04-15 10:00:00 Outpatient R NISHANT CHAPMAN [facility] [id number] [facility] 2022-04-11 15:00:00 2022-04-11 15:29:48 Outpatient R KELLY REYNAGA [facility] [id number] [facility] 2022-04-11 15:00:00 2022-04-11 15:29:48 Office Visit Juhi Kelly [facility] 1.2.840.114 350.1.13.10 4.2.7.2.686 [id number] [facility] 2022-04-08 10:30:00 2022-04-08 10:30:00 Outpatient R KELLY REYNAGA [facility] [id number] [facility] 2022-03-05 00:00:00 2022-03-05 00:00:00 Nithin Leung MD: [address] [facility] [address], [place] [address] , Ph. [phone] [place] [facility] [place] [id number] [facility] 2022-02-27 14:00:00 2022-02-27 14:00:00 Outpatient R CARMEN PINA [facility] [id number] [facility] 2022-02-21 11:30:00 2022-02-21 11:45:00 Anvilsmith Visit Pob, [facility] 1.2.840.114 350.1.13.10 4.2.7.2.686 [id number] [facility] 2022-02-21 11:30:00 2022-02-21 11:30:00 Outpatient Esdras PORTILLO CEM [facility] [id number] [facility] 2022-02-19 17:00:00 2022-02-19 17:15:00 Anvilsmith [facility] BUILDING 1.2.840.114 350.1.13.10 4.2.7.2.686 [id number] [facility] 2022-02-19 17:00:00 2022-02-19 17:00:00 Outpatient CEM JAQUEZ [facility] [id number] [facility] 2022-02-08 00:00:00 2022-02-08 00:00:00 Patient Secure Msg Doctor Unassigned, Ozora [facility] 1.2.840.114 350.1.13.10 4.2.7.2.686 [id number] [facility] 2022-02-07 14:30:00 2022-02-07 16:23:18 Office Visit Kelly Reynaga [facility] 1.2.840.114 350.1.13.10 4.2.7.2.686 [id number] 044 [id number] [facility] 2022-02-07 14:30:00 2022-02-07 16:23:18 Outpatient R KELLY REYNAGA [facility] [id number] [facility] 2022-02-07 14:30:00 2022-02-07 14:30:00 Outpatient R KELLY REYNAGA [facility] [id number] [facility] 2022-02-04 00:00:00 2022-02-04 00:00:00 Telephone Kelly [facility] OFF[facility] BU[facility] 1.2.840.114 350.1.13.10 4.2.7.2.686 [id number] [id number] [facility] 2022-02-04 00:00:00 2022-02-04 00:00:00 Orders Only Doctor Unassigned, Ozora [facility] 1.2.840.114 350.1.13.10 4.2.7.2.686 [id number] [facility] 2022-02-03 00:00:00 2022-02-03 00:00:00 Telephone Kelly Reynaga [facility] MEDICAL OFFICE BUILDING 1.2840.114 350.1.13.10 4.2.7.2.686 [id number] [id number] [facility] 2022-01-31 00:00:00 2022-01-31 00:00:00 Telephone Stephenie Reynagathia [facility] MEDICAL OFFICE BUILDING 1.2840.114 350.1.13.10 4.2.7.2.686 [id number] 044 [id number] [facility] 2022-01-24 00:00:00 2022-01-24 00:00:00 Telephone Kelly Reynaga [facility] MEDICAL OFFICE BUILDING 1.2840.114 350.1.13.10 4.2.7.2.686 [id number] 044 [id number] [facility] 2022-01-22 00:00:00 2022-01-22 00:00:00 Patient Secure Mirtha Sousa [facility] MEDICAL OFFICE BUILDING 1.2840.114 350.1.13.10 4.2.7.2.686 [id number] 044 [id number] [facility] 2022-01-22 00:00:00 2022-01-22 00:00:00 Patient Secure Msg Mirtha Bowman [facility] MEDICAL OFFICE BUILDING 1.284.114 350.1.13.10 4.2.7.2.686 [id number] 044 [id number] [facility] 2022-01-22 00:00:00 2022-01-22 00:00:00 Patient Secure Msg [facility] MEDICAL OFFICE BUILDING 1..114 350.1.13.10 4.2.7.2.686 [id number] 044 [id number] [facility] 2022-01-20 00:00:00 2022-01-20 00:00:00 [facility] MEDICAL OFFICE BUILDING 1.84.114 350.1.13.10 4.2.7.2.686 [id number] [id number] [facility] 2022-01-17 14:15:00 2022-01-17 23:59:00 Outpatient R KELLY REYNAGA [facility] [id number] [facility] 2022-01-17 14:15:00 2022-01-17 14:15:00 Outpatient R KELLY REYNAGA [facility] [id number] [facility] 2022-01-17 14:00:00 2022-01-17 14:15:00 Anvilsmith Visit Lab, [place] Stephenie [facility] Hospital[facility] MEDICAL OFFICE BUILDING 1.84.114 350.1.13.10 4.2.7.2.686 [id number] [facility] 2022-01-17 13:30:00 2022-01-17 14:10:08 Office Visit [facility] MEDICAL OFFICE BUILDING 1.284.114 350.1.13.10 4.2.7.2.686 [id number] 044 [id number] [facility] 2022-01-17 13:30:00 2022-01-17 13:30:00 Outpatient R KELLY REYNAGA [facility] [id number] [facility] 2021-12-25 00:00:00 2021-12-25 00:00:00 Orders Only Doctor Unassigned, Ozora [facility] 1.114 350.1.13.10 4.2.7.2.686 [id number] [facility] 2021-12-24 17:15:00 2021-12-24 17:30:00 Anvilsmith Visit Pob, Adc Lab Main [facility] 1.84.114 350.1.13.10 4.2.7.2.686 [id number] 353 [id number] [facility] 2021-12-24 17:15:00 2021-12-24 17:15:00 Outpatient R KELLY REYNAGA [facility] [id number] [facility] 2021-12-24 16:30:00 2021-12-24 17:02:50 Outpatient R KELLY REYNAGA [facility] [id number] [facility] 2021-12-24 16:30:00 2021-12-24 17:02:50 [facility] MEDICAL OFFICE BUILDING 1.84.114 350.1.13.10 4.2.7.2.686 [id number] 044 [id number] [facility] 2021-12-24 00:00:00 2021-12-24 00:00:00 Telephone [facility] MEDICAL OFFICE BUILDING 1.840.114 350.1.13.10 4.2.7.2.686 [id number] 044 [id number] [facility] 2021-12-24 00:00:00 2021-12-24 00:00:00 Telephone Kelly Reynaga [facility] 1..840.114 350.1.13.10 4.2.7.2.686 [id number] 044 [id number] [facility] 2021-12-10 00:00:00 2021-12-10 00:00:00 Case Management Veronica Anne [facility] 1..840.114 350.1.13.10 4.2.7.2.686 [id number] [facility] 2021-12-06 14:00:00 2021-12-06 14:00:00 Outpatient R KELLY REYNAGA [facility] [id number] [facility] 2021-11-29 08:00:00 2021-11-29 08:00:00 Outpatient R KELLY REYNAGA [facility] [id number] [facility] 2021-11-18 14:00:00 2021-11-18 14:00:00 Outpatient R KELLY REYNAGA [facility] [id number] [facility] 2021-11-16 00:00:00 2021-11-16 00:00:00 [facility] 1..840.114 350.1.13.10 4.2.7.2.686 [id number] 044 [id number] [facility] 2021-11-14 14:00:00 2021-11-14 14:00:00 Outpatient R KELLY REYNAGA [facility] [id number] [facility] 2021-11-05 14:15:00 2021-11-05 15:07:08 Office Visit JohnsherriNj [facility] 1..840.114 350.1.13.10 4.2.7.2.686 [id number] 044 [id number] [facility] 2021-11-05 14:15:00 2021-11-05 15:07:08 Outpatient Esdras EDMONDSBINUSHERRINJ [facility] [id number] [facility] 2021-11-05 14:15:00 2021-11-05 14:15:00 Outpatient Esdras [place] [facility] [id number] [facility] 2021-11-05 00:00:00 2021-11-05 00:00:00 Orders Only Doctor Unassigned, Ozora [facility] 1.840.114 350.1.13.10 4.2.7.2.686 [id number] [facility] 2021-10-28 14:00:00 2021-10-28 14:00:00 Outpatient R KELLY REYNAGA [facility] [id number] [facility] 2021-10-23 22:47:00 2021-10-24 01:33:00 Emergency X TAYLA DURANN [facility] E[facility] [id number] [facility] 2021-10-23 22:47:00 2021-10-24 01:33:00 Emergency Malachi Duran R [facility] 1.840.114 350.1.13.10 4.2.7.2.686 [id number] [facility] 2021-10-15 13:30:00 2021-10-15 14:20:44 Outpatient R KELLY REYNAGA [facility] [id number] [facility] 2021-10-15 13:30:00 2021-10-15 14:20:44 Office Visit Kelly Reynaga [facility]?GINO DEVINE[facility]MINI MEDICAL OFFICE BUILDING 1.840.114 350.1.13.10 4.2.7.2.686 [id number] [facility] 2021-10-15 13:30:00 2021-10-15 14:20:44 Outpatient R KELLY REYNAGA [facility] [id number] [facility] 2021-10-14 16:45:00 2021-10-14 18:51:00 Emergency X Burke POSEY [facility] E[facility] [id number] [facility] 2021-10-14 16:45:00 2021-10-14 18:51:00 Emergency Burke Posey Fatuma [facility] 1.2.840.114 350.1.13.10 4.2.7.2.686 [id number] [facility] 2021-10-14 16:45:00 2021-10-14 18:51:00 Emergency X Burke POSEY [facility] ERT [id number] [facility] 2021-10-08 00:00:00 2021-10-08 00:00:00 Telephone Kelly Reynaga [facility] MED[facility] OFF[facility] BUILDING 1.2.840.114 350.1.13.10 4.2.7.2.686 [id number] 044 [id number] [facility] 2021-10-01 11:30:00 2021-10-01 11:30:00 Outpatient KELLY ZAYAS [facility] [id number] [facility] 2021-09-16 08:30:00 2021-09-16 08:30:00 Outpatient Esdras REYNAGA KELLY [facility] [id number] [facility] 2021-09-16 08:30:00 2021-09-16 08:30:00 Outpatient Esdras REYNAGA KELLY [facility] [id number] [facility] 2021-09-13 09:18:02 2021-09-13 23:59:00 Outpatient JAYLAN ESCOBAR [facility] [id number] [facility] 2021-09-13 09:18:02 2021-09-13 23:59:00 Hospital Encounter Jaylan Camarillo [facility] 1.84.114 350.1.13.10 4.2.7.2.686 [id number] [facility] 2021-09-13 00:00:00 2021-09-13 00:00:00 Orders Only Doctor Unassigned, Ozora [facility] 1.114 350.1.13.10 4.2.7.2.686 [id number] [facility] 2021-09-03 00:00:00 2021-09-03 00:00:00 Patient Secure Msg Doctor Unassigned, Ozora [facility] MEDICAL OFFICE BUILDING 1.84.114 350.1.13.10 4.2.7.2.686 [id number] [id number] [facility] 2021-09-02 14:30:00 2021-09-02 14:30:00 Outpatient KELLY ZAYAS [facility] [id number] [facility] 2021-08-30 12:00:00 2021-08-30 12:15:00 Anvilsmith Visit Lab, Stephenie [facility] MEDICAL OFFICE BUILDING 1.840.114 350.1.13.10 4.2.7.2.686 [id number] [facility] 2021-08-30 12:00:00 2021-08-30 12:00:00 Outpatient KELLY ZAYAS [facility] [id number] [facility] 2021-08-30 12:00:00 2021-08-30 12:00:00 Anvilsmith Visit Lab, [place] Reynaga [facility] MEDICAL OFFICE BUILDING 1.840.114 350.1.13.10 4.2.7.2.686 [id number] 353 [id number] [facility] 2021-08-30 11:30:00 2021-08-30 11:34:07 Office Visit Kelly Reynaga [facility] 1.0.114 350.1.13.10 4.2.7.2.686 [id number] [id number] [facility] 2021-08-30 11:30:00 2021-08-30 11:34:07 Outpatient R KELLY REYNAGA [facility] [id number] [facility] 2021-08-08 10:30:00 2021-08-08 10:30:00 [facility] [id number] [facility] 2021-08-08 00:00:00 2021-08-08 00:00:00 Orders Only Doctor Unassigned, Ozora [facility] 1.0.114 350.1.13.10 4.2.7.2.686 [id number] [facility] 2021-08-07 13:30:00 2021-08-07 13:30:00 Outpatient [facility] [id number] [facility] 2021-07-30 00:00:00 2021-07-30 00:00:00 Patient Secure Msg Doctor Unassigned, Ozora [facility] 1.0.114 350.1.13.10 4.2.7.2.686 [id number] [facility] 2021-07-27 00:00:00 2021-07-27 00:00:00 Nurse Triage Ale Rashaddipesh [facility] 1.0.114 350.1.13.10 4.2.7.2.686 [id number] [facility] 2021-07-01 00:00:00 2021-07-01 00:00:00 Telephone Provider, [facility] 1.0.114 350.1.13.10 4.2.7.2.686 [id number] [facility] 2021-06-28 16:40:00 2021-06-28 17:00:00 Urgent Care Viola Spivey Jono Uribe [facility] 1.840.114 350.1.13.10 4.2.7.2.686 [id number] [facility] 2021-06-28 16:40:00 2021-06-28 16:40:00 Outpatient R VIOLA SPIVEY [facility] [id number] [facility] 2021-06-28 00:00:00 2021-06-28 00:00:00 Patient Secure Msg Stephenie ReynagaCritical access hospital?[facility] MED[facility] OFFICE BUILDING 1.840.114 350.1.13.10 4.2.7.2.686 [id number] [id number] [facility] 2021-06-26 09:30:00 2021-06-26 09:45:00 Anvilsmith Visit Pob, Adc Lab Main Cem Portillo [facility] NAL BUILDING 1.840.114 350.1.13.10 4.2.7.2.686 [id number] [facility] 2021-06-26 09:30:00 2021-06-26 09:30:00 Outpatient CEM JAQUEZ [facility] [id number] [facility] 2021-06-26 00:00:00 2021-06-26 00:00:00 Orders Only Doctor Unassigned, Ozora [facility] 1.84.114 350.1.13.10 4.2.7.2.686 [id number] [facility] 2021-06-20 00:00:00 2021-06-20 00:00:00 Telephone [facility] MEDICAL OFFICE BUILDING 1.840.114 350.1.13.10 4.2.7.2.686 [id number] [facility] 2021-06-14 10:15:00 2021-06-14 10:30:00 Laboratory Only Only, Ang [place] Test Jono Uribe [facility] 1..840.114 350.1.13.10 4.2.7.2.686 [id number] 370 [id number] [facility] 2021-06-14 10:15:00 2021-06-14 10:15:00 Outpatient R JONO URIBE [facility] [id number] [facility] 2021-05-30 00:00:00 2021-05-30 00:00:00 Patient Secure Msg Reynaga [facility] MED[facility] OFFICE BUILD[facility] 1..840.114 350.1.13.10 4.2.7.2.686 [id number] [facility] 2021-05-29 00:00:00 2021-05-29 00:00:00 Outpatient Esdras REYNAGA KELLY [facility] [id number] [facility] 2021-05-29 00:00:00 2021-05-29 00:00:00 Outpatient R RAZGERMAINE KELLY [facility] [id number] [facility] 2021-05-23 14:30:00 2021-05-23 14:45:00 Anvilsmith Visit Lab, Ang - [place] Juhi [facility] MEDICAL OFFICE BUILDING 1..840.114 350.1.13.10 4.2.7.2.686 [id number] [facility] 2021-05-23 14:30:00 2021-05-23 14:30:00 Outpatient R JUHI KELLY [facility] [id number] [facility] 2021-05-23 13:30:00 2021-05-23 14:24:35 Outpatient R KELLY REYNAGA [facility] [id number] [facility] 2021-05-23 13:30:00 2021-05-23 14:24:35 [facility] MED[facility] OFFICE BUILDING 1.84.114 350.1.13.10 4.2.7.2.686 [id number] [facility] 2021-05-23 13:30:00 2021-05-23 14:24:35 Outpatient R KELLY REYNAGA [facility] [id number] [facility] 2021-05-10 09:20:00 2021-05-10 09:43:39 Outpatient R NICKY PECK [facility] [id number] [facility] 2021-05-10 09:16:09 2021-05-10 09:26:09 Imm/Inj Visit Vaccine, Ang Db Cbc Fam Unknown, Attending [facility] MEDICAL OFFICE BUILDING 1.84.114 350.1.13.10 4.2.7.2.686 [id number] [facility] 2021-05-10 09:20:00 2021-05-10 09:20:00 Outpatient R UNKNOWN, ATTENDING [facility] [id number] [facility] 2021-05-09 00:00:00 2021-05-09 00:00:00 Telephone Rony [facility] MEDICAL OFFICE BUILDING 1.84.114 350.1.13.10 4.2.7.2.686 [id number] [id number] [facility] 2021-05-07 13:36:55 2021-05-07 13:56:55 Urgent Care Rony [facility] MEDICAL OFFICE BUILDING 1.84.114 350.1.13.10 4.2.7.2.686 [id number] [facility] 2021-05-07 13:20:00 2021-05-07 13:20:00 Outpatient R JONO URIBE [facility] [id number] [facility] 2021-05-07 00:00:00 2021-05-07 00:00:00 Telephone Stephen[facility] Hospital[facility] MEDICAL OFFICE BUILDING 1.2.840.114 350.1.13.10 4.2.7.2.686 [id number] 044 [id number] [facility] 2021-04-22 12:15:00 2021-04-22 12:15:00 Outpatient R KELLY REYNAGA [facility] [id number] [facility] 2021-04-22 11:24:12 2021-04-22 11:39:12 Anvilsmith Visit Lab, [place] [facility] MEDICAL OFFICE BUILDING 1.2.840.114 350.1.13.10 4.2.7.2.686 [id number] [facility] 2021-04-22 10:30:30 2021-04-22 11:22:34 Office Visit Stephen[facility] MEDICAL OFFICE BUILDING 1.2.840.114 350.1.13.10 4.2.7.2.686 [id number] [facility] 2021-04-22 10:30:00 2021-04-22 11:22:34 Outpatient R JUHIKELLY [facility] [id number] [facility] 2021-04-16 10:30:00 2021-04-16 10:30:00 Outpatient R RAZKELLY HERRON [facility] [id number] [facility] 2021-04-15 00:00:00 2021-04-15 00:00:00 Telephone RazStephenie [facility] MEDICAL OFFICE BUILDING 1.84.114 350.1.13.10 4.2.7.2.686 [id number] [facility] 2021-04-15 00:00:00 2021-04-15 00:00:00 Telephone Kelly Reyanga [facility] 1.84.114 350.1.13.10 4.2.7.2.686 [id number] [facility] 2021-03-27 13:32:13 2021-03-27 13:52:13 Urgent Care Rony [facility] Medical Office Building 1.84.114 350.1.13.10 4.2.7.2.686 [id number] [facility] 2021-03-27 13:30:00 2021-03-27 13:30:00 Outpatient R RONY JONO [facility] [id number] [facility] 2021-03-18 13:00:00 2021-03-18 13:00:00 Outpatient R SIVAKUMAR FISHER [facility] [id number] [facility] 2021-02-07 17:08:23 2021-02-07 17:28:23 Urgent Care Franchesca Spiveynakita Rony [facility] Medical Office Building 1.84.114 350.1.13.10 4.2.7.2.686 [id number] [facility] 2021-02-07 17:00:00 2021-02-07 17:00:00 Outpatient R RONY JONO [facility] [id number] [facility] 2021-02-04 00:00:00 2021-02-04 00:00:00 Nurse Triage Isabel Benz [facility] 1.84.114 350.1.13.10 4.2.7.2.686 [id number] [facility] 2021-02-04 00:00:00 2021-02-04 00:00:00 Nurse Triage Isabel Benz [facility] 1..114 350.1.13.10 4.2.7.2.686 [id number] [facility] 2021-01-17 18:01:55 2021-01-17 18:21:55 Urgent Care Patric [facility] Office [facility] 1..114 350.1.13.10 4.2.7.2.686 [id number] [facility] 2021-01-17 18:00:00 2021-01-17 18:00:00 [facility] [id number] [facility] 2021-01-10 17:55:42 2021-01-10 18:45:[address] [facility] 1.84.114 350.1.13.10 4.2.7.2.686 [id number] [facility] 2021-01-10 17:40:00 2021-01-10 17:40:00 Outpatient R VIOLA SPIVEY [facility] [id number] [facility] 2020-11-15 19:00:00 2020-11-15 19:00:00 Outpatient R [facility] [id number] [facility] 2020-10-26 09:45:00 2020-10-26 23:59:00 [facility] 1..114 350.1.13.10 4.2.7.2.686 [id number] 2020-10-26 09:45:00 2020-10-26 23:59:00 Hospital Encounter Juhi [facility] 1.2840.114 350.1.13.10 4.2.7.2.686 [id number] [facility] 2020-10-26 08:47:17 2020-10-26 09:07:17 Urgent Care Provider, [facility] 1.2840.114 350.1.13.10 4.2.7.2.686 [id number] 2020-10-26 08:47:17 2020-10-26 09:07:17 Urgent Care Provider, [facility] Rajwinder Reynaga Kelly [facility] 1.20.114 350.1.13.10 4.2.7.2.686 [id number] [facility] 2020-10-26 09:00:00 2020-10-26 09:00:00 Outpatient R JUHI KELLY [facility] [id number] [facility] 2020-10-26 00:00:00 2020-10-26 00:00:00 Telephone Provider, [facility] 1.20.114 350.1.13.10 4.2.7.2.686 [id number] 2020-10-26 00:00:00 2020-10-26 00:00:00 Orders Only Doctor Unassigned, [place] 1.2840.114 350.1.13.10 4.2.7.2.686 [id number] 2020-10-26 00:00:00 2020-10-26 00:00:00 Orders Only Doctor Unassigned, [place] 1.2840.114 350.1.13.10 4.2.7.2.686 [id number] [facility] 2020-10-26 00:00:00 2020-10-26 00:00:00 Telephone Provider, [facility] 1.2.840.114 350.1.13.10 4.2.7.2.686 [id number] [facility] 2020-10-17 00:00:00 2020-10-17 00:00:00 Telephone Provider, [facility] 1.2.840.114 350.1.13.10 4.2.7.2.686 [id number] [id number] 2020-10-17 00:00:00 2020-10-17 00:00:00 Telephone Provider, [facility] 1.2.840.114 350.1.13.10 4.2.7.2.686 [id number] [id number] [facility] 2020-10-16 09:22:16 2020-10-16 10:22:39 Urgent Care Provider, [facility] 1.2.840.114 350.1.13.10 4.2.7.2.686 [id number] [id number] 2020-10-16 09:22:16 2020-10-16 10:22:39 Ur[facility] Care Provider, [facility] [facility] One [id number] [facility] 2020-10-16 09:00:00 2020-10-16 09:00:00 Outpatient KELLY ZAYAS [facility] [id number] [facility] 2020-09-19 16:10:00 2020-09-19 08:56:31 Outpatient STEVE CHAVEZ [facility] [id number] [facility] 2020-08-29 16:10:00 2020-08-29 15:31:49 Outpatient STEVE CHAVEZ [facility] [id number] [facility] Results Test Description Test Time Test Comments Results Result Co mments Source If your patient does not have signs or symptoms of UTI, it is recommended NOT to treat, with the exception of and prior to urologic procedures.COMP. METABOLIC PANEL (09817)2025-02-28 16:56:12* Test Item Value Reference Range Interpretation Comme nts NA (test code = 3470512235) 138 mmol/L 135-145 K (test code = 9542281378) 3.7 mmol/L 3.5-5.0 Slight hemolysis CL (test code = 0736619273) 102 mmol/L 98-108 CO2 TOTAL (test code = 4288174341) 26 mmol/L 23-31 AGAP (test code = 6462007386) 10 2-16 BUN (test code = 1772078057) 6 mg/dL 7-23 L Slight hemolysis GLUCOSE (test code = 4066374535) 125 mg/dL 70-110 H CREATININE (test code = 2160-0) 0.59 mg/dL 0.50-1.04 TOTAL BILI (test code = 8235972100) 0.8 mg/dL 0.1-1.1 CALCIUM (test code = 9230521618) 9.6 mg/dL 8.6-10.6 T PROTEIN (test code = 8834365874) 7.5 g/dL 6.3-8.2 ALBUMIN (test code = 4003766696) 4 g/dL 3.5-5.0 ALK PHOS (test code = 5872126642) 163 U/L 34-122 H Slight hemolysis ALTv (test code = 1742-6) 22 U/L 5-35 AST(SGOT) (test code = 9320455319) 23 U/L 13-40 Slight hemolysis eGFR (test code = 72415-4) 123.7 mL/min/1.73m2 CKD-EPI eGFR (2020). Assuming creatinine has been stable day-to-day for at least three months, the eGFR indicates Category G1 (>= 90 mL/min/1.73 m2) Lab Interpretation (test code = 30860-5) [facility] 16[facility]56:12* Test Item Value Reference Range Interpretation Comme nts LIPASE (test code = 2012223314) 19 U/L 0-220 Lab Interpretation (test cod e = 60302-9) Normal [facility] acute hospital WITH [id number] 16:41:09* Test Item Value Reference Range Interpretation Comme nts WBC (test code = 6690-2) 12.05 4.30-11.10 H RBC (test code = 789-8) 4.58 3.93-5.25 HGB (test code = 718-7) 14.3 g/dL 11.6-15.0 HCT (test code = 4544-3) 41.3 % 35.7-45.2 MCV (test code = 787-2) 90.2 fL 80.6-95.5 MCH (test code = 785-6) 31.2 pg 25.9-32.8 MCHC (test code = 786-4) 34.6 g/dL 31.6-35.1 RDW-SD (test code = 99609-4) 42.5 fL 39.0-49.9 RDW-CV (test code = 788-0) 13 % 12.0-15.5 PLT (test code = 777-3) 373 166-358 H MPV (test code = 55640-1) 9.7 fL 9.5-12.9 NRBC/100 WBC (test code = 6361682609) 0 0.0-10.0 NRBC x10^3 (test code = 0003081136) See_Comment [Automated messa ge] The system which generated this result transmitted reference range: 10*3/?L. The reference range was not used to interpret this result as normal/abnormal. GRAN MAT (NEUT) % (test code = 770-8) 75.5 % IMM GRAN % (test code = 2751245120) 0.3 % LYMPH % (test code = 736-9) 18.4 % MONO % (test code = 5905-5) 4.9 % EOS % (test code = 713-8) 0.5 % BASO % (test code = 706-2) 0.4 % GRAN MAT x10^3(ANC) (test code = 6779051039) 9.09 10*3/uL 1.88-7.09 H IMM GRAN x10^3 (test code = 0264859350) 0.04 10*3/uL 0.00-0.06 LYMPH x10^3 (test code = 731-0) 2.22 10*3/uL 1.32-3.29 MONO x10^3 (test code = 742-7) 0.59 10*3/uL 0.33-0.92 EOS x10^3 (test code = 711-2) 0.06 10*3/uL 0.03-0.39 BASO x10^3 (test code = 704-7) 0.05 10*3/uL 0.01-0.07 Lab Interpretation (test code = 43072-1) [facility] 1 [id number] 20:34:27EXAM: XR CHEST 1 12/15/2024 1:15 PM HISTORY: 29 years old Female with syncope TECHNIQUE: Single AP view of the chest. COMPARISON: None FINDINGS: Lines/tubes and devices: None. Lungs and pleura: Thelungs are clear. No focal consolidation,pneumothorax, or pleural effusion is seen. Cardiomediastinal: The cardiomediastinal silhouette is normal accountingfor technique. Musculoskeletal: No acute osseous abnormality.[facility] wo [id number] 18:30:59EXAM: CT HEAD WO CONTRAST, CT MAXILLOFACIAL/MANDIBLE WO CONTRAST HISTORY: Head trauma, moderate-severe TECHNIQUE: CTs of the head and face were performed without intravenouscontrast. Sagittal and coronal reformats were generated. COMPARISON: None. FINDINGS: CT HEAD: The ventricles and sulci are normal in caliber and configuration. Nohydrocephalus, midline shift or pathological extra-axial fluid collectionis present. The basal cisterns are unremarkable. There is no acute intracranial hemorrhage or significant mass effect. Noparenchymal attenuation abnormality. The gary-white matter differentiationis preserved. The mastoid air cells and paranasal air sinuses are clear. The calvariumand central skull base are unremarkable. CT FACE: The nasal bones and frontal processes of the maxilla are intact. Nasalseptum is midline. Nasal cavities are clear. The zygomatic arches, daly of the maxillary sinuses and pterygoid platesare intact. Bony orbits are intact. The eye globes, extraocular muscles and opticsheath complexes are symmetric. Clear intraorbital fat planes. The mandible and temporomandibular joints are intact. Mild degenerativechanges of the bilateral temporomandibular joints. Mild mu coperiosteal thickening of the ethmoidal air cells and maxillarysinuses. Mastoid air cells are clear.[facility] Maxillofacial/mandible wo [id number] 18:30:59EXAM: CT HEAD WO CONTRAST, CT MAXILLOFACIAL/MANDIBLE WO CONTRAST HISTORY: Head trauma, moderate-severe TECHNIQUE: CTs of the head and face were performed without intravenouscontrast. Sagittal and coronal reformats were generated. COMPARISON: None. FINDINGS: CT HEAD: The ventricles and sulci are normal in caliber and configuration. Nohydrocephalus, midline shift or pathological extra-axial fluid collectionis present. The basal cisterns are unremarkable. There is no acute intracranial hemorrhage or significant mass effect. Noparenchymal attenuation abnormality. The gary-white matter differentiationis preserved. The mastoid air cells and paranasal air sinuses are clear. The calvariumand central skull base are unremarkable. CT FACE: The nasal bones and frontal processes of the maxilla are intact. Nasalseptum is midline. Nasal cavities are clear. The zygomatic arches, daly of the maxillary sinuses and pterygoid platesare intact. Bony orbits are intact. The eye globes, extraocular muscles and opticsheath complexes are symmetric. Clear intraorbital fat planes. The mandible and temporomandibular joints are intact. Mild degenerativechanges of the bilateral temporomandibular joints. Mild mucoperiosteal thickening of the ethmoidal air cells and maxillarysinuses. Mastoid air cells are clear.[facility] SCANNED LAB [id number] 13:51:10Ordered by an unspecified provider. [facility]PO[facility] [id number] 04:18:00* Test Item Value Reference Range Interpretation Comme nts POCT PREG (test code = 1605) Negative On board controls acceptable with C Line (test code = 3574) Yes POCT PREG LOT # (test code = 3575) [id number] POCT PREG TEST DATE ( test code = 3576) 05/15/2026 Lab Interpretation (test cod e = 60074-8) Normal [facility] HospitalRADIOLOGY [id number] 15:50:06 Ordered by an unspecified provider.[facility] BranchENDOSCOPY PROCEDURE [id number] 13:08:10Ordered by an unspecified provider. [facility] GLUCOSE (AUTOMATED)2024-09-27 16:18:31* Test Item Value Reference Range Interpretation Comme nts POCT GLU (test code = 0301362124) 154 mg/dL 70-110 H Lab Interpretation (test cod e = 52973-5) Abnormal [facility] GLUCOSE (AUTOMATED)2024-09-27 16:18:31* Test Item Value Reference Range Interpretation Comme nts POCT GLU (test code = 8900182697) 154 mg/dL 70-110 H Lab Interpretation (test cod e = 86011-2) Abnormal [facility] [id number] 16:17:00* Test Item Value Reference Range Interpretation Comme nts POCT PREG (test code = 1605) Negative On board controls acceptable with C Line (test code = 3574) Yes POCT PREG LOT # (test code = 3575) [id number] POCT PREG TEST DATE ( test code = 3576) 09/16/25 [facility] [id number] 16:17:00* Test Item Value Reference Range Interpretation Comme nts POCT PREG (test code = 1605) Negative On board controls acceptable with C Line (test code = 3574) Yes POCT PREG LOT # (test code = 3575) [id number] POCT PREG TEST DATE ( test code = 3576) 09/16/25 [facility] HospitalSLEEP STUDY DATA [id number] 21:10:49 Ordered by an unspecified provider.[facility] [id number] 20:52:00* Test Item Value Reference Range Interpretation Comme nts POCT PREG (test code = 1605) Negative On board controls acceptable with C Line (test code = 3574) Yes POCT PREG LOT # (test code = 3575) [id number] POCT PREG TEST DATE ( test code = 3576) 11/17/2025 [facility] Urinalysis W Specific [id number] 20:46:00* Test Item Value Reference Range Interpretation Comme nts POCT U SP GRAV (test code = 3255) 1.005 mg/dl 1.005-1.025 POCT PH U (test code = 3254) 8 mg/dl 5-8 POCT U LEUK EST (test code = 3263) 2+ Negative - Negative POCT U NIT (test code = 3262) positive Negative - Negative POCT U PROT (test code = 3259) negative normal Negative - Negative POCT U GLU (test code = 3256) normal Negative - Negative POCT U KETONE (test code = 3258) negative Negative - Negative POCT U UROBILI (test code = 3260) normal 0.2-1 POCT U BILI (test code = 3261) negative Negative - Negative POCT U BLD (test code = 3257) 250 Negative - Negative POCT U COLOR (test code = 3266) dark yellow POCT U APPEAR (test code = 3267) cloudy [facility]. Metabolic Panel (64529)2024-08-03 04:21:49* Test Item Value Reference Range Interpretation Comme nts NA (test code = 0429805873) 139 mmol/L 135-145 K (test code = 7441364174) 4.0 mmol/L 3.5-5.0 CL (test code = 8622437581) 107 mmol/L 98-108 CO2 TOTAL (test code = 0573759427) 26 mmol/L 23-31 AGAP (test code = 5144918791) 6 2-16 BUN (test code = 8799851943) 11 mg/dL 7-23 GLUCOSE (test code = 3860352223) 206 mg/dL 70-110 H CREATININE (test code = 2160-0) 0.57 mg/dL 0.50-1.04 TOTAL BILI (test code = 4018260031) 0.4 mg/dL 0.1-1.1 CALCIUM (test code = 4832864473) 9.8 mg/dL 8.6-10.6 T PROTEIN (test code = 5670665716) 7.8 g/dL 6.3-8.2 ALBUMIN (test code = 7983388961) 4.1 g/dL 3.5-5.0 ALK PHOS (test code = 4249105134) 192 U/L 34-122 H ALTv (test code = 1742-6) 19 U/L 5-35 AST(SGOT) (test code = 3641320299) 33 U/L 13-40 eGFR (test code = 09011-1) 125.6 mL/min/1.73m2 CKD-EPI eGFR (2020). Assuming creatinine has been stable day-to-day for at least three months, the eGFR indicates Category G1 (>= 90 mL/min/1.73 m2) Lab Interpretation (test code = 26526-1) Abnormal [facility] with [id number] 04:16:08* Test Item Value Reference Range Interpretation Comme nts WBC (test code = 6690-2) 12.47 4.30-11.10 H RBC (test code = 789-8) 4.98 3.93-5.25 HGB (test code = 718-7) 14.8 g/dL 11.6-15.0 HCT (test code = 4544-3) 45.2 % 35.7-45.2 MCV (test code = 787-2) 90.8 fL 80.6-95.5 MCH (test code = 785-6) 29.7 pg 25.9-32.8 MCHC (test code = 786-4) 32.7 g/dL 31.6-35.1 RDW-SD (test code = 40203-6) 44.6 fL 39.0-49.9 RDW-CV (test code = 788-0) 13.3 % 12.0-15.5 PLT (test code = 777-3) 407 166-358 H MPV (test code = 50173-8) 10.4 fL 9.5-12.9 NRBC/100 WBC (test code = 8519457151) 0.0 0.0-10.0 NRBC x10^3 (test code = 1826127009) See_Comment [Automated Locallya ge] The system which generated this result transmitted reference range: 10*3/?L. The reference range was not used to interpret this result as normal/abnormal. GRAN MAT (NEUT) % (test code = 770-8) 73.3 % IMM GRAN % (test code = 5281296962) 0.30 % LYMPH % (test code = 736-9) 19.9 % MONO % (test code = 5905-5) 4.9 % EOS % (test code = 713-8) 0.9 % BASO % (test code = 706-2) 0.7 % GRAN MAT x10^3(ANC) (test code = 3900490015) 9.14 10*3/uL 1.88-7.09 H IMM GRAN x10^3 (test code = 9759257877) 0.04 10*3/uL 0.00-0.06 LYMPH x10^3 (test code = 731-0) 2.48 10*3/uL 1.32-3.29 MONO x10^3 (test code = 742-7) 0.61 10*3/uL 0.33-0.92 EOS x10^3 (test code = 711-2) 0.11 10*3/uL 0.03-0.39 BASO x10^3 (test code = 704-7) 0.09 10*3/uL 0.01-0.07 H Lab Interpretation (test code = 69626-0) Abnormal [facility] Abdomen [id number] 20:19:53EXAM: US ABDOMEN LIMITED HISTORY: 28 years-old Female with elevated Alk phos . TECHNIQUE: Limited abdominal ultrasound was performed focused on the liver,biliary system, pancreas and spleen. Main portal vein was evaluated withcolor and spectral Doppler imaging. Machine Brush Maker images were obtained forthe record. COMPARISON: Ultrasound 02/06/2023, 06/17/2022. MRI abdomen 09/13/2021 FINDINGS: Evaluation is compromised by shadowing from bowel gas. AORTA:Abdominal aorta is normal in caliber where visualized. Diameter of theproximal abdominal aorta is 1.8 cm. IVC:IVC is normal in appearance where visualized. PANCREAS: Limited visualization due to shadowing from bowel gas.. Imagedbody of pancreas is unr emarkable LIVER: Length: 11.2 cm.Parenchyma: Normal hepatic echogenicity and echotexture. No focal lesion isdetected.Portal vein: Hepatopetal flow present in the main portal vein.MPV diameter: 1.0 cm.MPV velocity: 24.9 cm/s. GALLBLADDER:Cholecystectomy. BILE DUCTS:No intrahepatic biliary dilatation..The common bile duct is not visualized due to shadowing from bowel gas. SPLEEN: Length: 10.9 cm. Parenchyma: No focal lesion is detected. OTHER: Imaged portions of the right kidney are unremarkable.[facility] <3 vw [id number] 15:13:09HISTORY: Right fifth MTP pain. FINDINGS: AP, lateral, oblique views of right foot are obtained andcompared with 03/23/2024 study. No acute fracture or dislocation.Previously suspected fracture in the proximal shaft close to the base ofthird and fourth metatarsal bones may have completely healed in the interimsince 03/23/2024 study. No significant changes of arthritis or aggressivebone lesions seen. Prominent 5.5 mm heel spur noted. CONCLUSIONS: Heel spur. No fracture or bone lesions or soft tissuecalcifications detected.[facility] HospitalDME/SUPPLY [id number] 21:33:27Ordered by an unspecified provider.[facility] DME/SUPPLY [id number] 17:19:33Ordered by an unspecified provider. [facility] Soft tissue neck w [id number] 06:19:36Ordering physician: ELIZABETH YEBOAH INDICATION: Nonpulsatile neck mass COMPARISON: CT of the neck dated 12/19/2023 TECHNIQUE: Axial images of the neck were performed following theadministration of intravenous contrast. Images were reformatted in thecoronal and sagittal plane. CT scan was performed according to ALARA (aslow as reasonably achievable) policy. FINDINGS: No acute abnormality is appreciated in the visualized aspect ofthe brain. The visualized paranasal sinuses are clear. No middle ear ormastoid effusion is appreciated. There is no peritonsillar orretropharyngeal abscess. The epiglottis is thin without evidence for acuteepiglottitis. No asymmetric enlargement or hyperemia of eithersub mandibular or parotid gland is seen to suggest acute sialoadenitis. TheCT appearance of the thyroidgland is within normal limits. The lung apicesare clear. There is discontinuity of the anterior midline hyoid bone, newcompared to the previous exam, with mild adjacent stranding (series 2,image 54).[facility] (NA, K, CL, CO2, GLUCOSE, BUN, CREATININE, CA)2024-05-30 05:30:58* Test Item Value Reference Range Interpretation Comme nts NA (test code = 6718821559) 139 mmol/L 135-145 K (test code = 9069754542) 3.5 mmol/L 3.5-5.0 CL (test code = 2523732830) 107 mmol/L 98-108 CO2 TOTAL (test code = 9225512729) 24 mmol/L 23-31 AGAP (test code = 7537036750) 8 2-16 BUN (test code = 8889644440) 9 mg/dL 7-23 GLUCOSE (test code = 3153593088) 205 mg/dL 70-110 H CREATININE (test code = 2160-0) 0.58 mg/dL 0.50-1.04 CALCIUM (test code = 1640612091) 8.8 mg/dL 8.6-10.6 eGFR (test code = 00430-3) 125.0 mL/min/1.73m2 CKD-EPI eGFR (2020). Assuming creatinine has been stable day-to-day for at least three months, the eGFR indicates Category G1 (>= 90 mL/min/1.73 m2) Lab Interpretation (test code = 33377-1) Abnormal [facility] with [id number] 05:17:16* Test Item Value Reference Range Interpretation Comme nts WBC (test code = 6690-2) 13.37 4.30-11.10 H RBC (test code = 789-8) 4.60 3.93-5.25 HGB (test code = 718-7) 13.2 g/dL 11.6-15.0 HCT (test code = 4544-3) 41.0 % 35.7-45.2 MCV (test code = 787-2) 89.1 fL 80.6-95.5 MCH (test code = 785-6) 28.7 pg 25.9-32.8 MCHC (test code = 786-4) 32.2 g/dL 31.6-35.1 RDW-SD (test code = 83173-8) 44.1 fL 39.0-49.9 RDW-CV (test code = 788-0) 13.6 % 12.0-15.5 PLT (test code = 777-3) 373 166-358 H MPV (test code = 42933-1) 9.8 fL 9.5-12.9 NRBC/100 WBC (test code = 0186231997) 0.0 0.0-10.0 NRBC x10^3 (test code = 1882497440) See_Comment [Automated messa ge] The system which generated this result transmitted reference range: 10*3/?L. The reference range was not used to interpret this result as normal/abnormal. GRAN MAT (NEUT) % (test code = 770-8) 70.4 % IMM GRAN % (test code = 5293754764) 0.20 % LYMPH % (test code = 736-9) 22.8 % MONO % (test code = 5905-5) 4.9 % EOS % (test code = 713-8) 1.3 % BASO % (test code = 706-2) 0.4 % GRAN MAT x10^3(ANC) (test code = 4735896218) 9.41 10*3/uL 1.88-7.09 H IMM GRAN x10^3 (test code = 8336987887) 0.03 10*3/uL 0.00-0.06 LYMPH x10^3 (test code = 731-0) 3.05 10*3/uL 1.32-3.29 MONO x10^3 (test code = 742-7) 0.65 10*3/uL 0.33-0.92 EOS x10^3 (test code = 711-2) 0.17 10*3/uL 0.03-0.39 BASO x10^3 (test code = 704-7) 0.06 10*3/uL 0.01-0.07 Lab Interpretation (test code = 32918-8) Abnormal [facility] [id number] 05:05:00* Test Item Value Reference Range Interpretation Comme nts POCT PREG (test code = 1605) Negative On board controls acceptable with C Line (test code = 3574) Yes POCT PREG LOT # (test code = 3575) [id number] POCT PREG TEST DATE ( test code = 3576) 2025-05-23 Lab Interpretation (test cod e = 44231-0) Normal [facility] [id number] 20:46:59Ordered by an unspecified provider.[facility] HospitalDME/SUPPLY [id number] 16:03:29Ordered by an unspecified provider.[facility] SOFT TISSUE NECK W [id number] 10:36:28ORDERING PHYSICIAN: MILVIA CHEUNG CLINICAL HISTORY: Neck abscess, deep tissue S/P Recent uvulopharyngoplasty with hyoid suspension presenting withhemoptysis TECHNIQUE: CT of the neck soft tissues was performed after administrationof intravenous ?contrast. CT was performed according to ALARA (as low asreasonably achievable) principle. COMPARISON: none FINDINGS: The visualized brain parenchyma demonstrates no focal masslesions or mass effect. The opacified vessels of [place] areunremarkable. The orbits and intraorbital [...] apices are clear. No acute osseous abnormalities areidentified.[facility] (NA, K, CL, CO2, GLUCOSE, BUN, CREATININE, CA)2023-12-19 10:11:33* Test Item Value Reference Range Interpretation Comme nts NA (test code = 4157249265) 137 mmol/L 135-145 K (test code = 6512076294) 3.0 mmol/L 3.5-5.0 L CL (test code = 0900637519) 99 mmol/L 98-108 CO2 TOTAL (test code = 5664478775) 30 mmol/L 23-31 AGAP (test code = 5691207947) 8 2-16 BUN (test code = 0843129372) 11 mg/dL 7-23 GLUCOSE (test code = 1708191380) 148 mg/dL 70-110 H CREATININE (test code = 2160-0) 0.70 mg/dL 0.50-1.04 CALCIUM (test code = 6609815953) 8.9 mg/dL 8.6-10.6 eGFR (test code = 04385-0) 119.5 mL/min/1.73m2 CKD-EPI eGFR (2020). Assuming creatinine has been stable day-to-day for at least three months, the eGFR indicates Category G1 (>= 90 mL/min/1.73 m2) Lab Interpretation (test code = 84982-4) Abnormal [facility] GLUCOSE (AUTOMATED)2023-12-11 16:57:53* Test Item Value Reference Range Interpretation Comme nts POCT GLU (test code = 6225141812) 138 mg/dL 70-110 H Lab Interpretation (test cod e = 21192-2) Abnormal [facility] GLUCOSE (AUTOMATED)2023-12-11 16:57:53* Test Item Value Reference Range Interpretation Comme nts POCT GLU (test code = 6431988804) 138 mg/dL 70-110 H Lab Interpretation (test cod e = 08600-0) Abnormal [facility]2024-07-05 14:22:19* Test Item Value Reference Range Interpretation Comme nts MAGNESIUM (test code = 5314256749) 2.2 mg/dL 1.7-2.4 Lab Interpretation (test cod e = 84409-3) Normal [facility]2024-07-05 14:22:19* Test Item Value Reference Range Interpretation Comme nts MAGNESIUM (test code = 7848298750) 2.2 mg/dL 1.7-2.4 Lab Interpretation (test cod e = 97785-8) Normal [facility] GLUCOSE (AUTOMATED)2023-12-11 13:32:45* Test Item Value Reference Range Interpretation Comme nts POCT GLU (test code = 3976737717) 159 mg/dL 70-110 H Lab Interpretation (test cod e = 54442-5) Abnormal [facility] GLUCOSE (AUTOMATED)2023-12-11 13:32:45* Test Item Value Reference Range Interpretation Comme nts POCT GLU (test code = 3587649712) 159 mg/dL 70-110 H Lab Interpretation (test cod e = 56486-3) Abnormal [facility] Metabolic Panel (NA, K, CL, CO2, GLUCOSE, BUN, CREATININE, CA)2023-12-11 11:45:14* Test Item Value Reference Range Interpretation Comme nts NA (test code = 8329716596) 141 mmol/L 135-145 K (test code = 5135574342) 3.9 mmol/L 3.5-5.0 CL (test code = 9041491475) 108 mmol/L 98-108 CO2 TOTAL (test code = 9456483284) 27 mmol/L 23-31 AGAP (test code = 2204741179) 6 2-16 BUN (test code = 4712359758) 12 mg/dL 7-23 GLUCOSE (test code = 3975360532) 173 mg/dL 70-110 H CREATININE (test code = 2160-0) 0.57 mg/dL 0.50-1.04 CALCIUM (test code = 5528889561) 8.7 mg/dL 8.6-10.6 eGFR (test code = 82517-2) 125.6 mL/min/1.73m2 CKD-EPI eGFR (2020). Assuming creatinine has been stable day-to-day for at least three months, the eGFR indicates Category G1 (>= 90 mL/min/1.73 m2) Lab Interpretation (test code = 58778-4) Abnormal [facility] Metabolic Panel (NA, K, CL, CO2, GLUCOSE, BUN, CREATININE, CA)2023-12-11 11:45:14* Test Item Value Reference Range Interpretation Comme nts NA (test code = 6021840653) 141 mmol/L 135-145 K (test code = 1622897217) 3.9 mmol/L 3.5-5.0 CL (test code = 7793887578) 108 mmol/L 98-108 CO2 TOTAL (test code = 5325549401) 27 mmol/L 23-31 AGAP (test code = 9972876000) 6 2-16 BUN (test code = 4646145155) 12 mg/dL 7-23 GLUCOSE (test code = 3374903764) 173 mg/dL 70-110 H CREATININE (test code = 2160-0) 0.57 mg/dL 0.50-1.04 CALCIUM (test code = 2434063242) 8.7 mg/dL 8.6-10.6 eGFR (test code = 54641-6) 125.6 mL/min/1.73m2 CKD-EPI eGFR (2020). Assuming creatinine has been stable day-to-day for at least three months, the eGFR indicates Category G1 (>= 90 mL/min/1.73 m2) Lab Interpretation (test code = 77676-5) Abnormal [facility] with Tcey2246-46-07 11:21:13* Test Item Value Reference Range Interpretation [...] 31.8 g/dL 31.6-35.1 RDW-SD (test code = 00876-8) 42.0 fL 39.0-49.9 RDW-CV (test code = 788-0) 12.5 % 12.0-15.5 PLT (test code = 777-3) 333 166-358 MPV (test code = 64940-1) 10.0 fL 9.5-12.9 NRBC/100 WBC (test code = 6774219867) 0.0 0.0-10.0 NRBC x10^3 (test code = 4160439422) See_Comment [Automated message] The system which generated this result transmitted reference range: 10*3/?L. The reference range was not used to interpret this result as normal/abnormal. GRAN MAT (NEUT) % (test code = 770-8) 92.0 % IMM GRAN % (test code = [id number]) 0.40 % LYMPH % (test code = 736-9) 6.2 % MONO % (test code = 5905-5) 1.3 % EOS % (test code = 713-8) 0.0 % BASO % (test code = 706-2) 0.1 % GRAN MAT x10^3(ANC) (test code = [id number]) 14.43 10*3/uL 1.88-7.09 H IMM GRAN x10^3 (test code = [id number]) 0.07 10*3/uL 0.00-0.06 H LYMPH x10^3 (test code = 731-0) 0.97 10*3/uL 1.32-3.29 L MONO x10^3 (test code = 742-7) 0.21 10*3/uL 0.33-0.92 L EOS x10^3 (test code = 711-2) 0.03-0.39 L BASO x10^3 (test code = 704-7) 0.01-0.07 Lab Interpretation (test code = 73951-3) Abnormal [facility] with [id number] 11:21:13* Test Item Value Reference Range Interpretation [...] 31.8 g/dL 31.6-35.1 RDW-SD (test code = 38377-8) 42.0 fL 39.0-49.9 RDW-CV (test code = 788-0) 12.5 % 12.0-15.5 PLT (test code = 777-3) 333 166-358 MPV (test code = 74627-2) 10.0 fL 9.5-12.9 NRBC/100 WBC (test code = 5470087551) 0.0 0.0-10.0 NRBC x10^3 (test code = 9250040902) See_Comment [Automated message] The system which generated this result transmitted reference range: 10*3/?L. The reference range was not used to interpret this result as normal/abnormal. GRAN MAT (NEUT) % (test code = 770-8) 92.0 % IMM GRAN % (test code = 9099920394) 0.40 % LYMPH % (test code = 736-9) 6.2 % MONO % (test code = 5905-5) 1.3 % EOS % (test code = 713-8) 0.0 % BASO % (test code = 706-2) 0.1 % GRAN MAT x10^3(ANC) (test code = 7442312398) 14.43 10*3/uL 1.88-7.09 H IMM GRAN x10^3 (test code = 3003747752) 0.07 10*3/uL 0.00-0.06 H LYMPH x10^3 (test code = 731-0) 0.97 10*3/uL 1.32-3.29 L MONO x10^3 (test code = 742-7) 0.21 10*3/uL 0.33-0.92 L EOS x10^3 (test code = 711-2) 0.03-0.39 L BASO x10^3 (test code = 704-7) 0.01-0.07 Lab Interpretation (test code = 07239-2) Abnormal [facility] GLUCOSE (AUTOMATED)2023-12-11 01:23:03* Test Item Value Reference Range Interpretation Comme nts POCT GLU (test code = 3293958768) 168 mg/dL 70-110 H Lab Interpretation (test cod e = 68433-6) Abnormal [facility] GLUCOSE (AUTOMATED)2023-12-11 01:23:03* Test Item Value Reference Range Interpretation Comme nts POCT GLU (test code = 0701657406) 168 mg/dL 70-110 H Lab Interpretation (test cod e = 51990-4) Abnormal [facility] GLUCOSE (AUTOMATED)2023-12-10 22:21:36* Test Item Value Reference Range Interpretation Comme nts POCT GLU (test code = 0909515727) 155 mg/dL 70-110 H Lab Interpretation (test cod e = 18855-9) Abnormal [facility] GLUCOSE (AUTOMATED)2023-12-10 22:21:36* Test Item Value Reference Range Interpretation Comme nts POCT GLU (test code = 0632661770) 155 mg/dL 70-110 H Lab Interpretation (test cod e = 44097-3) Abnormal [facility] GLUCOSE (AUTOMATED)2023-12-10 17:52:15* Test Item Value Reference Range Interpretation Comme nts POCT GLU (test code = 7208362045) 125 mg/dL 70-110 H Lab Interpretation (test cod e = 50233-4) Abnormal [facility] GLUCOSE (AUTOMATED)2023-12-10 17:52:15* Test Item Value Reference Range Interpretation Comme nts POCT GLU (test code = 4584883666) 125 mg/dL 70-110 H Lab Interpretation (test cod e = 14257-5) Abnormal [facility] GLUCOSE (AUTOMATED)2023-12-10 16:37:22* Test Item Value Reference Range Interpretation Comme nts POCT GLU (test code = 7363883674) 114 mg/dL 70-110 H Lab Interpretation (test cod e = 10576-2) Abnormal [facility] GLUCOSE (AUTOMATED)2023-12-10 16:37:22* Test Item Value Reference Range Interpretation Comme nts POCT GLU (test code = 1806680709) 114 mg/dL 70-110 H Lab Interpretation (test cod e = 47396-5) Abnormal [facility] GLUCOSE (AUTOMATED)2023-12-09 14:58:19* Test Item Value Reference Range Interpretation Comme nts POCT GLU (test code = 1842506980) 114 mg/dL 70-110 H Lab Interpretation (test cod e = 39063-4) Abnormal [facility] GLUCOSE (AUTOMATED)2023-12-09 14:58:19* Test Item Value Reference Range Interpretation Comme nts POCT GLU (test code = 5271024751) 114 mg/dL 70-110 H Lab Interpretation (test cod e = 85032-7) Abnormal [facility] Glucose(Age >30days)2023-12-09 14:58:00* Test Item Value Reference Range Interpretation Comme nts POCT Glu (age>30days) (test code = 3342) 114 mg/dL 70-110 A Lab Interpretation (test cod e = 94067-1) [facility] >30days[facility]2023-12-09 14:58:00* Test Item Value Reference Range Interpretation Comme nts POCT Glu (age>30days) (test code = 3342) 114 mg/dL 70-110 A Lab Interpretation (test cod e = 66871-2) Abnormal [facility] [id number] 14:38:00* Test Item Value Reference Range Interpretation Comme nts POCT PREG (test code = 1605) Negative On board controls acceptable with C Line (test code = 3574) Yes POCT PREG LOT # (test code = 3575) POCT PREG TEST DATE ( test code = 3576) Lab Interpretation (test cod e = 48524-1) Normal [facility] [id number] 14:38:00* Test Item Value Reference Range Interpretation Comme nts POCT PREG (test code = 1605) Negative On board controls acceptable with C Line (test code = 3574) Yes POCT PREG LOT # (test code = 3575) POCT PREG TEST DATE ( test code = 3576) Lab Interpretation (test cod e = 75883-7) Normal [facility] GLUCOSE (AUTOMATED)2023-11-12 13:30:37* Test Item Value Reference Range Interpretation Comme nts POCT GLU (test code = 1459908912) 110 mg/dL 70-110 Lab Interpretation (test cod e = 47472-8) Normal [facility] GLUCOSE (AUTOMATED)2023-11-12 13:30:37* Test Item Value Reference Range Interpretation Comme nts POCT GLU (test code = 1419961825) 110 mg/dL 70-110 Lab Interpretation (test cod e = 30778-4) Normal [facility] [id number] 13:19:00* Test Item Value Reference Range Interpretation Comme nts POCT PREG (test code = 1605) Negative On board controls acceptable with C Line (test code = 3574) Yes POCT PREG LOT # (test code = 3575) POCT PREG TEST DATE ( test code = 3576) [facility] [id number] 13:19:00* Test Item Value Reference Range Interpretation Comme nts POCT PREG (test code = 1605) Negative On board controls acceptable with C Line (test code = 3574) Yes POCT PREG LOT # (test code = 3575) POCT PREG TEST DATE ( test code = 3576) [facility]23-[facility]-14 23:12:38* Test Item Value Reference Range Interpretation Comme nts Height (test code = 6637674128) 60 in Weight (test code = 9483768309) 204 lbs Systolic BP (test code = 6715922130) 108 mmHg Diastolic BP (test code = 8088055724) 72 mmHg Heart Rate (test code = 9036204045) 102 bpm RVOT diameter (test code = 3263931246) 1.76 cm RVOT Proximal Diameter (test code = 6482289528) 2.16 cm MR max PG (test code = 8810451087) 42.80 mm[Hg] MR max camila (test code = 0684077205) 327.20 cm/s Ao root diam (test code = 2904299571) 2.42 cm Mr max camila (test code = 5156976889) 327.2 m/s Aortic root (test code = 7637588424) 2.42 cm Ao root annulus (test code = 2068242795) 2.42 cm BSA (test code = 4242838589) 1.88 m2 LVOT diameter (test code = 3220751489) 1.54 cm LVOT area (test code = 2951199858) 1.86 cm2 LA size (test code = 2518858533) 2.8 cm ACS (test code = 3409724906) 1.90 cm LVIDD (test code = 7878678575) 4.50 cm Left Ventricular End Diastolic Volume by Teichholz Method (test code = 3111972) 94.3 mL IVS (test code = 9110930897) 0.85 cm Interventricular Septum Diastolic Thickness by 2D (test code = 2515752) 0.85 cm LVPWD (test code = 6606721925) 0.81 cm PW (test code = 5958170835) 0.81 cm 0.6-1.1 EF(Teich) (test code = 8497767200) 55.10 % LVIDS (test code = 1223939722) 3.20 cm Left Ventricular End Systolic Volume by Teichholz Method (test code = 6147853) 42.4 mL FS (test code = 4981251513) 29 % EF - 2D (test code = 47441635) 55.10 % TR Peak Camila (test code = 1609100986) 267.9 cm/s Triscuspid Valve Regurgitation Peak Gradient (test code = 8838462244) 28.7 mmHg PV PEAK VELOCITY (test code = 4034723393) 96.9 cm/s PV peak gradient (test code = 1679356244) 3.8 mmHg MV E-F slope (test code = 0738297025) 43.60 cm/s MV Peak E Camila (test code = 8852124365) 103.2 cm/s MV Peak A Camila (test code = 7600687508) 78.6 cm/s E/A ratio (test code = 2865549978) 1.31 ratio MV valve area p 1/2 method (test code = 0804432331) 8.70 cm2 MV dec slope (test code = 2299511745) 1197.00 cm/s2 MV P1/2t max camila (test code = 8296935927) 103.80 cm/s LVOT stroke volume (test code = 8780287545) 34.20 cm3 LVOT peak camila (test code = 7384915794) 99.6 cm/s LVOT mn grad (test code = 7360474552) 1.7 mmHg AV LVOT peak gradient (test code = 8666041310) 4.0 mmHg LVOT peak VTI (test code = 3307296246) 18.4 cm LV V1 mean (test code = 9232242087) 59.30 cm/s Aortic valve mean velocity (test code = 5711826847) 79.3 cm/s Ao peak camila (test code = 1501426179) 136.4 cm/s Ao VTI (test code = 1352027301) 26.5 cm AV area by cont VTI (test code = 6309832084) 1.3 cm2 AV area peak camila (test code = 5375790466) 1.4 cm2 Ao max PG (test code = 1279772568) 7.40 mm[Hg] AV peak gradient (test code = 3917319689) 7.4 mmHg AV valve area (test code = 4546393782) 1.29 cm2 AV mean gradient (test code = 3076698518) 3.0 mmHg LAV(MOD-sp4) (test code = 0496059092) 15.30 mL LA Volume Index (BP) (test code = 7853053015) 8.6 mL/m2 LA volume (BP) (test code = 1666207668) 16.2 mL LAV(MOD-sp2) (test code = 8195886221) 17.10 mL A4C EF (test code = 2890621017) 60.00 % EF(sp4-el) (test code = 8439101036) 60.80 % SV(MOD-sp4) (test code = 6326906760) 28.80 mL SV(sp4-el) (test code = 5660989951) 29.80 mL RVOT area (test code = 0023042480) 2.43 cm2 Radiology Study observation (narrative) (test code = 68195-4) MIKE (test code = MIKE) ?Left?Ventricle: Left [...] 2D, color flow Doppler and spectral Doppler. [facility]/[id number] 13:49:27 Ordered by an unspecified provider.[facility] Urinalysis W Specific Bemhflh1397-16-36 22:57:00* Test Item Value Reference Range Interpretation [...] 3267) Lab Interpretation (test cod e = 09743-7) Abnormal [facility] Urinalysis W Specific Mkqdcwo2227-37-16 22:57:00* Test Item Value Reference Range Interpretation [...] 3267) Lab Interpretation (test cod e = 73716-6) Abnormal [facility] [id number] 22:56:00* Test Item Value Reference Range Interpretation Comme nts POCT PREG (test code = 1605) Negative On board controls acceptable with C Line (test code = 3574) Yes POCT PREG LOT # (test code = 3575) POCT PREG TEST DATE ( test code = 3576) Lab Interpretation (test cod e = 36379-3) Normal [facility] [id number] 22:56:00* Test Item Value Reference Range Interpretation Comme nts POCT PREG (test code = 1605) Negative On board controls acceptable with C Line (test code = 3574) Yes POCT PREG LOT # (test code = 3575) POCT PREG TEST DATE ( test code = 3576) Lab Interpretation (test cod e = 72401-5) [facility] B12, [id number] 01:22:28* Test Item Value Reference Range Interpretation Comme nts VIT B12 (test code = 2385952085) 260 pg/mL 240-930 MIKE (test code = MIKE) Biotin has been reported to cause a positive bias, interpret results relative to patient's use of biotin. Lab Interpretation (test code = 07006-3) [facility] B12, [id number] 01:22:28* Test Item Value Reference Range Interpretation Comme nts VIT B12 (test code = 4331862069) 260 pg/mL 240-930 MIKE (test code = MIKE) Biotin has been reported to cause a positive bias, interpret results relative to patient's use of biotin. Lab Interpretation (test code = 64249-8) Normal [facility] [id number] 00:06:36 * Test Item Value Reference Range Interpretation Comme nts TSH (test code = 9234406289) 1.50 See_Comment [Automated messa ge] The system which generated this result transmitted reference range: 0.45 - 4.70 mIU/L. The reference range was not used to interpret this result as normal/abnormal. Lab Interpretation (test code = 56826-2) Normal [facility] [id number] 00:06:36 * Test Item Value Reference Range Interpretation Comme nts TSH (test code = 6576577529) 1.50 See_Comment [Automated messa ge] The system which generated this result transmitted reference range: 0.45 - 4.70 mIU/L. The reference range was not used to interpret this result as normal/abnormal. Lab Interpretation (test code = 60780-4) Normal [facility]. METABOLIC PANEL (56219)2023-05-15 23:37:48* Test Item Value Reference Range Interpretation Comme nts NA (test code = 9626459674) 142 mmol/L 135-145 K (test code = 6093937381) 3.9 mmol/L 3.5-5.0 CL (test code = 5174104191) 105 mmol/L 98-108 CO2 TOTAL (test code = 6366387527) 26 mmol/L 23-31 AGAP (test code = 1546869670) 11 2-16 BUN (test code = 7559630371) 6 mg/dL 7-23 L GLUCOSE (test code = 7666861079) 109 mg/dL 70-110 CREATININE (test code = 3457291451) 0.67 mg/dL 0.50-1.04 TOTAL BILI (test code = 6759450361) 0.5 mg/dL 0.1-1.1 CALCIUM (test code = 0965190408) 9.3 mg/dL 8.6-10.6 T PROTEIN (test code = 8695092255) 7.3 g/dL 6.3-8.2 ALBUMIN (test code = 5596251370) 3.9 g/dL 3.5-5.0 ALK PHOS (test code = 6724019212) 210 U/L 34-122 H ALTv (test code = 1742-6) 30 U/L 5-35 AST(SGOT) (test code = 8366826392) 19 U/L 13-40 eGFR (test code = 39358-1) 121.5 mL/min/1.73m2 CKD-EPI eGFR (2020). Assuming creatinine has been stable day-to-day for at least three months, the eGFR indicates Category G1 (>= 90 mL/min/1.73 m2) Lab Interpretation (test code = 41644-5) [facility] 23:37:48* Test Item Value Reference Range Interpretation Comme nts MAGNESIUM (test code = 3581299291) 2.0 mg/dL 1.7-2.4 Lab Interpretation (test cod e = 20956-5) [facility] METABOLIC PANEL (06822)2023-05-15 23:37:48* Test Item Value Reference Range Interpretation Comme nts NA (test code = 6376350057) 142 mmol/L 135-145 K (test code = 2017263014) 3.9 mmol/L 3.5-5.0 CL (test code = 3739034605) 105 mmol/L 98-108 CO2 TOTAL (test code = 5318662370) 26 mmol/L 23-31 AGAP (test code = 2141352293) 11 2-16 BUN (test code = 7499294796) 6 mg/dL 7-23 L GLUCOSE (test code = 6470917420) 109 mg/dL 70-110 CREATININE (test code = 3897198830) 0.67 mg/dL 0.50-1.04 TOTAL BILI (test code = 4216246760) 0.5 mg/dL 0.1-1.1 CALCIUM (test code = 4508228075) 9.3 mg/dL 8.6-10.6 T PROTEIN (test code = 9419216050) 7.3 g/dL 6.3-8.2 ALBUMIN (test code = 1973121423) 3.9 g/dL 3.5-5.0 ALK PHOS (test code = 6946974367) 210 U/L 34-122 H ALTv (test code = 1742-6) 30 U/L 5-35 AST(SGOT) (test code = 0668436211) 19 U/L 13-40 eGFR (test code = 56142-7) 121.5 mL/min/1.73m2 CKD-EPI eGFR (2020). Assuming creatinine has been stable day-to-day for at least three months, the eGFR indicates Category G1 (>= 90 mL/min/1.73 m2) Lab Interpretation (test code = 58362-3) [facility] 23:37:48* Test Item Value Reference Range Interpretation Comme nts MAGNESIUM (test code = 2798357508) 2.0 mg/dL 1.7-2.4 Lab Interpretation (test cod e = 06553-4) Normal [facility] WITH [id number] 23:13:22* Test Item Value Reference Range Interpretation [...] 33.3 g/dL 31.6-35.1 RDW-SD (test code = 22270-1) 42.5 fL 39.0-49.9 RDW-CV (test code = 788-0) 12.9 % 12.0-15.5 PLT (test code = 777-3) 364 See_Comment H [Automated messa ge] The system which generated this result transmitted reference range: 166 - 358 10*3/?L. The reference range was not used to interpret this result as normal/abnormal. MPV (test code = 09426-7) 10.7 fL 9.5-12.9 NRBC/100 WBC (test code = 8293881624) 0.0 See_Comment [Automated me ssage] The system which generated this result transmitted reference range: 0.0 - 10.0 /100 WBCs. The reference range was not used to interpret this result as normal/abnormal. NRBC x10^3 (test code = 8738275713) See_Comment [Automated messa ge] The system which generated this result transmitted reference range: 10*3/?L. The reference range was not used to interpret this result as normal/abnormal. GRAN MAT (NEUT) % (test code = 770-8) 76.9 % IMM GRAN % (test code = 2335553475) 0.20 % LYMPH % (test code = 736-9) 17.2 % MONO % (test code = 5905-5) 4.5 % EOS % (test code = 713-8) 0.7 % BASO % (test code = 706-2) 0.5 % GRAN MAT x10^3(ANC) (test code = 5474014767) 9.46 10*3/uL 1.88-7.09 H IMM GRAN x10^3 (test code = 7904718500) 0.03 10*3/uL 0.00-0.06 LYMPH x10^3 (test code = 731-0) 2.11 10*3/uL 1.32-3.29 MONO x10^3 (test code = 742-7) 0.55 10*3/uL 0.33-0.92 EOS x10^3 (test code = 711-2) 0.08 10*3/uL 0.03-0.39 BASO x10^3 (test code = 704-7) 0.06 10*3/uL 0.01-0.07 Lab Interpretation (test code = 34966-6) Abnormal [facility] WITH [id number] 23:13:22* Test Item Value Reference Range Interpretation [...] 33.3 g/dL 31.6-35.1 RDW-SD (test code = 10943-3) 42.5 fL 39.0-49.9 RDW-CV (test code = 788-0) 12.9 % 12.0-15.5 PLT (test code = 777-3) 364 See_Comment H [Automated Locallya ge] The system which generated this result transmitted reference range: 166 - 358 10*3/?L. The reference range was not used to interpret this result as normal/abnormal. MPV (test code = 30437-9) 10.7 fL 9.5-12.9 NRBC/100 WBC (test code = 1692782256) 0.0 See_Comment [Automated Octavian ssage] The system which generated this result transmitted reference range: 0.0 - 10.0 /100 WBCs. The reference range was not used to interpret this result as normal/abnormal. NRBC x10^3 (test code = 2342069329) See_Comment [Automated Locallya ge] The system which generated this result transmitted reference range: 10*3/?L. The reference range was not used to interpret this result as normal/abnormal. GRAN MAT (NEUT) % (test code = 770-8) 76.9 % IMM GRAN % (test code = 3214862939) 0.20 % LYMPH % (test code = 736-9) 17.2 % MONO % (test code = 5905-5) 4.5 % EOS % (test code = 713-8) 0.7 % BASO % (test code = 706-2) 0.5 % GRAN MAT x10^3(ANC) (test code = 6895378235) 9.46 10*3/uL 1.88-7.09 H IMM GRAN x10^3 (test code = 3486535362) 0.03 10*3/uL 0.00-0.06 LYMPH x10^3 (test code = 731-0) 2.11 10*3/uL 1.32-3.29 MONO x10^3 (test code = 742-7) 0.55 10*3/uL 0.33-0.92 EOS x10^3 (test code = 711-2) 0.08 10*3/uL 0.03-0.39 BASO x10^3 (test code = 704-7) 0.06 10*3/uL 0.01-0.07 Lab Interpretation (test code = 12874-1) Abnormal [facility] [id number] 21:00:00* Test Item Value Reference Range Interpretation Comme nts POCT PREG (test code = 1605) Negative On board controls acceptable with C Line (test code = 3574) Yes POCT PREG LOT # (test code = 3575) POCT PREG TEST DATE ( test code = 3576) [facility] [id number] 21:00:00* Test Item Value Reference Range Interpretation Comme nts POCT PREG (test code = 1605) Negative On board controls acceptable with C Line (test code = 3574) Yes POCT PREG LOT # (test code = 3575) POCT PREG TEST DATE ( test code = 3576) [facility], [id number] 18:48:52* Test Item Value Reference Range Interpretation Comme nts NTX SERUM (test code = 04106-2) 12.3 nM BCE INTERPRETIVE INF ORMATION: N-Telopeptide, Cross-Linked, Serum ?Adult Male.......................5.4 - 24.2 nM BCE ?Premenopausal Adult Female.......6.2 - 19.0 nM BCE The target value for treated post-menopausal adult females is the same as the premenopausal reference interval. BCE = Bone Collagen EquivalentPerformed By: [address] [place] [id number] Director: Jc Albarran MD, PhDCLIA Number: [id number] [facility]-TELOPEPTIDE, [id number] 18:48:52* Test Item Value Reference Range Interpretation Comme nts NTX SERUM (test code = 29495-8) 12.3 nM BCE INTERPRETIVE INF ORMATION: N-Telopeptide, Cross-Linked, Serum ?Adult Male.......................5.4 - 24.2 nM BCE ?Premenopausal Adult Female.......6.2 - 19.0 nM BCE The target value for treated post-menopausal adult females is the same as the premenopausal reference interval. BCE = Bone Collagen EquivalentPerformed By: [facility] [place] [id number] Director: Jc Albarran MD, PhDCLIA Number: [id number] [facility] HospitalINTACT PTH CALCIUM [id number] 20:29:31* Test Item Value Reference Range Interpretation Comme nts PTH-INTACT (test code = 7125600773) 34.9 pg/mL 12.0-88.0 PTH-CA Interpretation (test code = 3373894351) PTH IS Appropria te for Calcium CALCIUM (test code = 2616846074) 9.8 mg/dL 8.6-10.6 [facility]IN[facility] CALCIUM [id number] 20:29:31* Test Item Value Reference Range Interpretation Comme nts PTH-INTACT (test code = 5611298090) 34.9 pg/mL 12.0-88.0 PTH-CA Interpretation (test code = 4454634851) PTH IS Appropria te for Calcium CALCIUM (test code = 6756264683) 9.8 mg/dL 8.6-10.6 [facility] D, [id number] 07:21:15* Test Item Value Reference Range Interpretation Comme nts VIT D 25OH (test code = 29166-3) 14 ng/mL 25-80 L MIKE (test code = MIKE) Deficiency: <20 ng/mLInsufficiency: 20-24 ng/mLOptimal: 25-80 ng/mL Lab Interpretation (test code = 82075-7) Abnormal [facility], [id number] 07:21:15* Test Item Value Reference Range Interpretation Comme nts VIT D 25OH (test code = 51760-6) 14 ng/mL 25-80 L MIKE (test code = MIKE) Deficiency: <20 ng/mLInsufficiency: 20-24 ng/mLOptimal: 25-80 ng/mL Lab Interpretation (test code = 81743-8) Abnormal [facility], [id number] 07:21:15* Test Item Value Reference Range Interpretation Comme nts VIT D 25OH (test code = 26319-6) 14 ng/mL 25-80 L MIKE (test code = MIKE) Deficiency: <20 ng/mLInsufficiency: 20-24 ng/mLOptimal: 25-80 ng/mL Lab Interpretation (test code = 26186-2) Abnormal [facility] D, [id number] 07:21:15* Test Item Value Reference Range Interpretation Comme nts VIT D 25OH (test code = 84609-9) 14 ng/mL 25-80 L MIKE (test code = MIKE) Deficiency: <20 ng/mLInsufficiency: 20-24 ng/mLOptimal: 25-80 ng/mL Lab Interpretation (test code = 85051-5) Abnormal [facility] HospitalALKALINE PHOSPHATASE, [id number] 06:51:12 * Test Item Value Reference Range Interpretation Comme nts ALK PHOS (test code = 7780343393) 224 U/L 34-122 H Lab Interpretation (test cod e = 08387-4) Abnormal [facility] HospitalALKALINE PHOSPHATASE, [id number] 06:51:12 * Test Item Value Reference Range Interpretation Comme nts ALK PHOS (test code = 8702454480) 224 U/L 34-122 H Lab Interpretation (test cod e = 36957-4) Abnormal [facility] HospitalALKALINE PHOSPHATASE, [id number] 06:51:12 * Test Item Value Reference Range Interpretation Comme nts ALK PHOS (test code = 0898771670) 224 U/L 34-122 H Lab Interpretation (test cod e = 53473-2) Abnormal [facility] HospitalALKALINE PHOSPHATASE, [id number] 06:51:12 * Test Item Value Reference Range Interpretation Comme nts ALK PHOS (test code = 8628933028) 224 U/L 34-122 H Lab Interpretation (test cod e = 40804-4) Abnormal [facility] [id number] 18:43:00* Test Item Value Reference Range Interpretation Comme nts POCT PREG (test code = 1605) Negative On board controls acceptable with C Line (test code = 3574) Yes POCT PREG LOT # (test code = 3575) POCT PREG TEST DATE ( test code = 3576) Lab Interpretation (test cod e = 51666-3) Normal [facility] [id number] 18:43:00* Test Item Value Reference Range Interpretation Comme nts POCT PREG (test code = 1605) Negative On board controls acceptable with C Line (test code = 3574) Yes POCT PREG LOT # (test code = 3575) POCT PREG TEST DATE ( test code = 3576) Lab Interpretation (test cod e = 30366-2) Normal [facility] URINALYSIS W SPECIFIC [id number] 18:36:00* Test Item Value Reference Range Interpretation [...] CLOUDY [facility] URINALYSIS W SPECIFIC [id number] 18:36:00* Test Item Value Reference Range Interpretation [...] code = 3267) CLOUDY [facility] [id number] 13:52:00* Test Item Value Reference Range Interpretation Comme nts POCT PREG (test code = 1605) Negative On board controls acceptable with C Line (test code = 3574) Yes POCT PREG LOT # (test code = 3575) POCT PREG TEST DATE ( test code = 3576) [facility] [id number] 13:52:00* Test Item Value Reference Range Interpretation Comme nts POCT PREG (test code = 1605) Negative On board controls acceptable with C Line (test code = 3574) Yes POCT PREG LOT # (test code = 3575) POCT PREG TEST DATE ( test code = 3576) [facility] [id number] 15:52:00* Test Item Value Reference Range Interpretation Comme nts POCT PREG (test code = 1605) Negative On board controls acceptable with C Line (test code = 3574) Yes POCT PREG LOT # (test code = 3575) POCT PREG TEST DATE ( test code = 3576) [facility] [id number] 15:52:00* Test Item Value Reference Range Interpretation Comme nts POCT PREG (test code = 1605) Negative On board controls acceptable with C Line (test code = 3574) Yes POCT PREG LOT # (test code = 3575) POCT PREG TEST DATE ( test code = 3576) [facility] [id number] 20:30:00* Test Item Value Reference Range Interpretation Comme nts POCT PREG (test code = 1605) Negative On board controls acceptable with C Line (test code = 3574) Yes POCT PREG LOT # (test code = 3575) POCT PREG TEST DATE ( test code = 3576) [facility] [id number] 20:30:00* Test Item Value Reference Range Interpretation Comme nts POCT PREG (test code = 1605) Negative On board controls acceptable with C Line (test code = 3574) Yes POCT PREG LOT # (test code = 3575) POCT PREG TEST DATE ( test code = 3576) [facility] [id number] 16:46:00* Test Item Value Reference Range Interpretation Comme nts POCT PREG (test code = 1605) Negative On board controls acceptable with C Line (test code = 3574) Yes POCT PREG LOT # (test code = 3575) POCT PREG TEST DATE ( test code = 3576) [facility] [id number] 16:46:00* Test Item Value Reference Range Interpretation Comme nts POCT PREG (test code = 1605) Negative On board controls acceptable with C Line (test code = 3574) Yes POCT PREG LOT # (test code = 3575) POCT PREG TEST DATE ( test code = 3576) [facility] acute hospital WITH [id number] 22:18:20* Test Item Value Reference Range Interpretation Comme nts WBC (test code = 6690-2) See_Comment H [Automated messa ge] The system which generated this result transmitted reference range: 4.30 - 11.10 10*3/?L. The reference range was not used to interpret this result as normal/abnormal. RBC (test code = 789-8) See_Comment [Automated Locallya ge] The system which generated this result [...] g/dL 31.6-35.1 L RDW-SD (test code = 67874-2) 44.1 fL 39-49.9 RDW-CV (test code = 788-0) 14.9 % 12-15.5 PLT (test code = 777-3) See_Comment H [Automated Locallya ge] The system which generated this result transmitted reference range: 166 - 358 10*3/?L. The reference range was not used to interpret this result as normal/abnormal. MPV (test code = 13075-7) 9.3 fL 9.5-12.9 L NRBC/100 WBC (test code = 6219449312) See_Comment [Automated Octavian ssage] The system which generated this result transmitted reference range: 0.0 - 10.0 /100 WBCs. The reference range was not used to interpret this result as normal/abnormal. NRBC x10^3 (test code = 2169186021) See_Comment [Automated Locallya ge] The system which generated this result transmitted reference range: 10*3/?L. The reference range was not used to interpret this result as normal/abnormal. GRAN MAT (NEUT) % (test code = 770-8) 74.6 % IMM GRAN % (test code = 0430222279) 0.50 % LYMPH % (test code = 736-9) 18.8 % MONO % (test code = 5905-5) 4.9 % EOS % (test code = 713-8) 0.7 % BASO % (test code = 706-2) 0.5 % GRAN MAT x10^3(ANC) (test code = 0057893858) 9.22 10*3/uL 1.88-7.09 H IMM GRAN x10^3 (test code = 0386114365) 0.06 10*3/uL 0-0.06 LYMPH x10^3 (test code = 731-0) 2.33 10*3/uL 1.32-3.29 MONO x10^3 (test code = 742-7) 0.61 10*3/uL 0.33-0.92 EOS x10^3 (test code = 711-2) 0.09 10*3/uL 0.03-0.39 BASO x10^3 (test code = 704-7) 0.06 10*3/uL 0.01-0.07 Lab Interpretation (test code = 46722-8) [id number] 06:32:55* Test Item Value Reference Range Interpretation Comme nts HEMOGLOBIN A1c (test code = 62710) 7.0 % 4.2-5.6 H [employer] GUIDELINES FOR HGB A1C: [...] CONSULTATION. UNLESS OTHERWISE INDICATED, ALL TESTING PERFORMED [facility] [address] [place] [address] CULTURIST: WILLY RAMOS M.D. CLIA NUMBER [id number] [facility] [place]. [id number] Consult Notes Date/Time Note Provider Source 2023-12-10 [...] N/A 11/12/2023 Surgeon: Laura Martínez DDS; [facility]IF (SHX) LARYNGOSCOPY (SHX) N/A 11/12/2023 Surgeon: Laura Martínez DDS; Location: [facility] Social History Socioeconomic History Marital status: Single [...] 20 min Stress: Stress Concern Present (12/05/2023) [employer] [place] [employer] - Occupational Stress Questionnaire Feeling of Stress : Very much Social Connections: Moderately Integrated (12/05/2023) Social Connection and Isolation Panel [NHANES] Frequency of Communication with Friends and Family: Three times a week Frequency of Social Gatherings with Friends and Family: More than three times a week Attends Sikh Services: More than 4 times per year [...] 19 ORAL) Take by mouth. Doctor Unassigned, [place] semaglutide (OZEMPIC) 1 mg/dose (4 mg/3 mL) PnIj inject 1 mg under the skin weekly. 10/21/23 Tian Caro MD propranoloL 10 mg tablet Take 1 tablet by mouth at bedtime. 09/22/23 09/21/24 Babar Pelletier MD Cholecalciferol, Vitamin D3, (VITAMIN D3) 50 mcg (2,000 unit) tablet Take 1 tablet by mouth in the morning. 07/23/23 Obey Cage, APPLICATION DEFENSE MANAGER- DNP hydrOXYzine 25 mg tablet Take 1 tablet by mouth every 6 (six) hours as needed for Itching. 05/19/22 Nishant Chapman MD ketoconazole 2 % cream Apply to area(s) 2 (two) times daily. 05/19/22 Nishant Chapman MD triamcinolone acetonide 0.1 % cream Apply to area(s) 2 (two) times daily. 05/19/22 Nishant Chapman MD ferrous sulfate (IRON ORAL) Take by mouth. Doctor Unassigned, [place] chlorhexidine 0.12 % mouthwash 10/02/20 Doctor Unassigned, [place] Current Medications: Scheduled meds:insulin lispro (human), , [...] intake Lyle Hooker MD, Surgical Co-Management Hospitalist [facility] Internal Medicine Portions of this note [...] Ordering referrals and/or communicating with other health care director rn (when not separately reported), Documenting clinical information in the electronic or other health record, Independently interpreting results (not separately reported) and/or communicating results to the patient/family/caregiver, and Care coordination (not separately reported). I spent approx 76 minutes. IM-INTERNAL MEDICINE STAFF [facility] - Health History and Physical Notes Date/Time Note Provider Source 2024-09-27 11:47:16 Endoscopy H & P Age: [age] year old Sex: female ASA Class: III Indication: hematemesis, GERD, dysphagia Rosanne Resendiz is a 28 year old female with PMH as below who was seen in GI clinic by Tiffany Horne for the above complaints and is scheduled for EGD to further evaluate. The pt reports last seeing streaks of red blood in her saliva one week ago. She is taking a medication for acid reflux which helps somewhat. She had one prior EGD and thinks she may have had a gastric ulcer. No family history of esophageal or gastric cancer. No blood thinner use. Her last CBC on 08/02/24 showed a normal Hgb of 14.8. Histories: Past Medical History: Diagnosis Date Acute otitis media, bilateral 11/15/2020 Anemia Anxiety Left arm pain 11/15/2020 Pain in left foot 03/05/2022 Subacute maxillary sinusitis 11/15/2020 Transfusion history Type 2 diabetes mellitus without complication, without long-term current use of insulin Family History Problem Relation Age of Onset Hypertension Mother Diabetes Father Diabetes Maternal Grandfather Diabetes Paternal Grandmother Past Surgical History: Procedure Laterality Date CHOLECYSTECTOMY COLONOSCOPY EXAM UNDER ANESTHESIA ORAL CAVITY (SHX) N/A 11/12/2023 Surgeon: Laura Martínez DDS; Location: [facility] OR AXEL FOOT ORIF (SHX) HYOID SUSPENSION N/A 12/09/2023 Surgeon: Laura Martínez DDS; Location: [facility] AXEL LARYNGOSCOPY (SHX) N/A 11/12/2023 Surgeon: Laura Martínez DDS; Location: [facility] AXEL UVULOPHARYNGOPALATOPLASY Bilateral 12/09/2023 Surgeon: Laura Martínez DDS; Location: [facility] Current Facility-Administered Medications Medication Dose Route Frequency Last Rate Last Admin lactated ringers IV infusion 1,000 mL 1,000 mL IV Infusion ONCE No Known Allergies Social History Socioeconomic History Marital status: Single Tobacco Use Smoking status: Never Passive exposure: Never Smokeless tobacco: Never Vaping Use Vaping status: Never Used Substance and Sexual Activity Alcohol use: Yes Comment: ocassional Drug use: Never Sexual activity: Yes Partners: Male control/protection: Injection Social Drivers of Health Financial Resource Strain: Low Risk [...] 0 min Stress: Stress Concern Present (12/05/2023) [employer] [place] [employer] - Occupational Stress Questionnaire Feeling of Stress : Very much Social Connections: Moderately Integrated (12/10/2023) Social Connection and Isolation Panel [NHANES] Frequency of Communication with Friends and Family: More than three times a week Frequency of Social Gatherings with Friends and Family: More than three times a week Attends Sikh Services: More than 4 times per year Active Member of Clubs or Organizations: Yes Attends Club or Organization Meetings: More than 4 times per year Marital Status: Never Housing Stability: Low Risk (12/10/2023) Housing Stability Vital Sign Unable to Pay for Housing in the Last Year: No Number of Places Lived in the Last Year: 1 Unstable Housing in the Last Year: No Physical Exam: Mental Status: alert, oriented x3 Abdomen: bowel sounds present Spleen Tip: non-palpable Hepatomegaly: no Mass: not present Tenderness: no Impression and Plan: Rosanne Resendiz is a 28 year old female with PMH as above who presents for GERD, dysphagia, and hematemesis. Will proceed with EGD. Benefits, risks, alternatives, and likelihood of achieving patient's goals of care discussed. Risks discussed including but not limited to aspiration, infection, bleeding, injury to the GI tract or surrounding vessels/structures, perforation, missed polyps/lesions, failure to obtain a diagnosis, failure to complete the procedure, cardiovascular complications such as NC, stroke, arrhythmia, and . Informed consent obtained/verified. Education provided to the patient about the procedure. Justen Tang MD [facility] of Internal Medicine Division of Gastroenterology and Hepatology [facility] 2023-12-25 13:00:00 webmethods architect Clinic Note Chief Complaint: follow up HPI Rosanne Resendiz is a 28 year old female who is well known to [facility] webmethods architect. Patient is s/p STEPHANIE, HS on 12/11/23 for moderate FAWN. Patient reports improvement in sleep with occasional snoring. She had an episode of blood tinged saliva and presented to [facility] ED and was DC without [...] 0 min Stress: Stress Concern Present (12/05/2023) [employer] [place] [employer] - Occupational Stress Questionnaire Feeling of Stress : Very much Social Connections: Moderately Integrated (12/10/2023) Social Connection and Isolation Panel [NHANES] Frequency of Communication with Friends and Family: More than three times a week Frequency of Social Gatherings with Friends and Family: More than three times a week Attends Sikh Services: More than 4 times per year [...] soft tissues are identified. 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 Patient is s/p STEPHANIE, HS on 12/11/23 [...] resident's note for additional details. Laura Martínez DDS, FACS Head and Neck Oncologic Surgery and Microvascular Reconstruction Department of Surgery | Division of webmethods architect [facility] 2023-12-09 07:21:07 webmethods architect Clinic note Chief Complaint: FAWN HPI Rosanne Resendiz is a 28 year old female presenting for FAWN evaluation. She has tried CPAP but cannot tolerate it. She is interested in surgical intervention. Interval HPI 12/09/23 Patient presents to [facility] for her scheduled procedure. Denies [...] 20 min Stress: Stress Concern Present (12/05/2023) [employer] [place] [employer] - Occupational Stress Questionnaire Feeling of Stress : Very much Social Connections: Moderately Integrated (12/05/2023) Social Connection and Isolation Panel [NHANES] Frequency of Communication with Friends and Family: Three times a week Frequency of Social Gatherings with Friends and Family: More than three times a week Attends Sikh Services: More than 4 times per year [...] see the Resident's note for additional details. 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) [facility] 2023-12-04 15:00:00 webmethods architect Clinic note Chief Complaint: FAWN HPI Rosanne [...] 11/12/2023 Surgeon: Laura Martínez DDS; Location: [facility] AXEL Family History Problem Relation Age [...] 20 min Stress: Stress Concern Present (12/05/2023) [employer] [place] [employer] - Occupational Stress Questionnaire Feeling of Stress : Very much Social Connections: Moderately Integrated (12/05/2023) Social Connection and Isolation Panel [NHANES] Frequency of Communication with Friends and Family: Three times a week Frequency of Social Gatherings with Friends and Family: More than three times a week Attends Sikh Services: More than 4 times per year [...] Reconstruction Department of Surgery | Division of webmethods architect [facility] T [facility] 2023-11-12 06:14:50 webmethods architect H&P Chief Complaint: FAWN HPI Rosanne Resendiz [...] see the Resident's note for additional details. [facility] 2023-10-23 14:00:00 webmethods architect Clinic note Chief Complaint: FAWN HPI Rosanne [...] Reconstruction Department of Surgery | Division of webmethods architect [facility] Procedure Notes Date/Time Note Provider Source 2025-01-16 14:36:37 Procedure(s): FIBROSCAN (ENDO) Pre-Procedure Diagnose(s): Elevated alkaline phosphatase level Post-Procedure Diagnose(s): Elevated alkaline phosphatase level [facility] FIBROSCAN REPORT DATE: 01/16/2025 14:36 INDICATION: Elevated alk phos INTERPRETATION: CAP Score: 320 dB/m corresponding to score of S2. A CAP of S2 on Fibroscan suggests steatosis involving 34-66% of hepatocytes. Fibrosis Score: 6.4 kPa corresponding to F0/F1 disease. Probe size: XL IQR score 13% ?CAP progression bar is at >100%, ?At least 10 measurements in the same location, and ?IQR/Med is <= 30% for liver stiffnes indicate technically adequate study. Signed: ELLYN Bergeron Department of Internal Medicine - Gastroenterology and Hepatology Note: Device is not intended as the sole tool or method to determine the presence or absence of liver disease and should be taken in context with other clinical and laboratory data Possible confounding factors include: Presence of inflammation indicated by AST and/or ALT elevation >?5 times the normal limits, obstructive cholestasis, liver congestion, acute hepatitis, infiltrative liver diseases, heavy alcohol intake, body habitus, and food intake should be considered when interpreting the transient elastography results (1) References (1) Aravind CF, Denys J, Molly A, Grady S, Cantyuli V, Laura L, Raquel D, Armando G, Kamari M, Mir OH, Goshahnaz RS, Kelton T, de Kacy R, Messer V, Katherine F, Jg B, Sebas A, Ida PS, Aydin I, Sheila M. EFSUMB Guidelines and Recommendations on the Clinical Use of Liver Ultrasound Elastography, Update 2017 (Long Version). Ultraschall Med. 2017 Jan;38(4):e16-e47. Icelandic. doi: 10.1055/h-5573-603107. Epub 2016Sep 18. Erratum in: Ultraschall Med. 2017 Jan;38(4):e48. 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 Pt reports . Pt denies F/V. Endorses nausea last night Denies urinary complaints. Endorses hx of acid reflux- denies prescription medication- typically takes tums. Pt educated on ED processes and procedures as well as current plan of care. Pt has no further needs at this time. Bed in lowest locked position. Call light within reach. VSS. RR E/U. NAD noted. A/Ox4. Pt placed on VS monitor. Shweta Nino RN [facility] 2025-02-28 09:59:41 Rosanne Resendiz is a 29 year old female presents to ED c/o "My inflammation is bothering me and I have some acid reflux coming up from my stomach. I went to the cancer doctor yesterday and he said I have a lot of inflammation in my stomach" Pt denies current cancer "they are keeping and eye on my white blood cells". Pt is aox4 with gcs 15 skin warm and dry resp even and unlabored. Pt to room for eval Claribel Yang RN [facility] 2025-02-28 09:56:22 Received Outpatient Laboratory Report from [facility] and have placed in provider's box. Lucy Dietz [facility] 2025-02-28 09:00:11 Patient has a scheduled appointment Pascual Byrnes [facility] 2025-02-22 11:48:16 Images from the original note were not included. Notes: Last Refilled: tirzepatide (MOUNJARO) 7.5 mg/0.5 mL subcutaneous injection pen Sig: Inject 7.5 mg under the skin weekly. Disp: 6 mL Refills: 0 Start: 02/21/2025 Class: eRX Non-formulary For: Type 2 diabetes mellitus without complication, without long-term current use of insulin; Morbid obesity Last ordered: 1 month ago (01/09/2025) by GRACIELA Rice Last dispensed: 01/10/2025 Rx #: [id number] Change: Other Change Off-Protocol [id number]/21/2025 08:37 PM Protocol Details Medication not assigned to a protocol, forward to provider. Valid encounter within last 12 months This request has changes from the previous prescription. To be filled at: [facility] - [address], [place] Recent Visits Date Type Provider Dept 01/09/25 Office Visit Kelly Reynaga, APPLICATION DEFENSE MANAGER [facility] 11/04/24 Office Visit Kelly Reynaga, APPLICATION DEFENSE MANAGER [facility] 09/07/24 Office Visit Nicky Peck PA [facility] 08/02/24 Office Visit Kelly Reynaga, APPLICATION DEFENSE MANAGER [facility] 03/23/24 Office Visit Nicky Peck PA [facility] 02/18/24 Office Visit Kelly Reynaga, APPLICATION DEFENSE MANAGER [facility] 01/14/24 Office Visit Nicky Peck PA [facility] 01/13/24 Appointment Nicky Peck PA [facility] 12/07/23 Office Visit Kelly Reynaga, APPLICATION DEFENSE MANAGER [facility] Showing recent visits within past 540 days with a meds authorizing provider and meeting all other requirements Future Appointments No visits were found meeting these conditions. Showing future appointments within next 150 days with a meds authorizing provider and meeting all other requirements T [facility] 2025-02-22 09:26:05 Received Complete Care Medical forms,placed in provider box for review. Denver Viera [facility] 2025-02-10 14:59:06 Rosanne Resendiz is a 29 year old female Patient is calling back to schedule a follow up with Dr. Connell after her tooth removal. I see that the patient is scheduled in for 03/10/[address] Martínez for follow up. I informed the patient of this but she stated that she would also need a follow up with Dr. Connell. Please contact and advise. Inés Gaona [facility] 2025-02-09 17:02:08 Copied from [facility] #[id number]. Topic: Appointment - Schedule Appointment >> Feb 09, 2025 5:00 PM Patient Bpm Solution Architect wrote: Patient Rosanne Resendiz called to schedule an appointment. Pt has a referral and wants to schedule appt. Please contact and advise pt at [phone]. Jacey Norton [facility] 2025-02-09 15:21:24 LVM for patient to call clinic to be rescheduled Pascual Byrnes [facility] 2025-02-07 14:04:45 Rosanne Resendiz is a 29 year old female Pt is requesting call back to discuss rescheduling appt Pt can be reached at [phone] Thank you Yanelis Dumont [facility] 2025-02-03 10:42:27 info Aaliyah Macdonald MA [facility] 2025-02-02 15:26:00 Documentation request, placed in providers box, thank you Karla Easley [facility] 2025-01-27 10:04:25 Please see the patient's attached referral and upload to her chart. Then call patient to schedule appointment. Danica Gill [facility] 2025-01-24 16:56:45 Called Ms. Resendiz and informed her that I discussed with Dr. Martínez, per Dr. Martínez she will need referral and can schedule with one of our providers who can do extractions. Pt. States she has a referral from a dentist. I confirmed with the patient that the current chipped tooth is on the referral. Patient states it is. I instructed pt. To upload referral to chart and once uploaded to give us a call and we can get her scheduled. Pt and mother both on phone verbalized understanding. Brea Carrion RN 01/24/2025 5:00 PM Brea Carrion RN [facility] 2025-01-24 16:20:51 Rosanne Resendiz is a 29 year old female Patient Specific Symptoms: chip tooth pain around site. Pt what to know if you will remove chip tooth or alternatives. Please advise. [phone] Arminda Mayorga [facility] 2025-01-16 16:28:02 Cut it in half. [facility] 2025-01-10 09:05:36 Was seen in clinic and refilled. [facility] 2025-01-09 16:00:00 Images from the original note were not included. Venipuncture collection performed by clean technique on the right anticubitus. Total of 1 attempts were made. Slight pressure and a bandage/dressing were applied to the site(s). The patient experienced no complications. The following specimens were processed according to instructions and sent to [facility] laboratories per lab order on today: LT BLUE SST 1 RED LAV 2 PPT DK GREEN (LiHep) DK GREEN (SodH) GARY DK BLUE (K2) DK BLUE (S) ACD Blood Culture NIPT/NTD [facility] 2025-01-09 15:43:20 Images from the original note were not included. Notes: in office visit 01/09/25 Last Refilled: tirzepatide (MOUNJARO) 5 mg/0.5 mL subcutaneous injection pen Sig: inject 5 mg under the skin weekly. Disp: 3 mL Refills: 0 Start: 01/07/2025 Class: eRX Non-formulary For: Morbid obesity Last ordered: 1 month ago (11/29/2024) by Rudi Camarillo MD Rx #: [id number] Off-Protocol Twpvdo7801/07/2025 11:20 AM Protocol Details Medication not assigned to a protocol, forward to provider. Valid encounter within last 12 months To be filled at: [facility] [id number] [place] [address] Recent Visits Date Type Provider Dept 11/04/24 Office Visit Kelly Reynaga FNP [facility] 09/07/24 Office Visit Nicky Peck PA [facility] 08/02/24 Office Visit Kelly Reynaga FNP [facility] 03/23/24 Office Visit Nicky Peck PA [facility] 02/18/24 Office Visit Kelly Reynaga FNP [facility] 01/14/24 Office Visit Nicky Peck PA [facility] 01/13/24 Appointment Nicky Peck PA [facility] 12/07/23 Office Visit Kelly Reynaga FNP [facility] 07/24/23 Office Visit Nicky Peck PA [facility] Showing recent visits within past 540 days with a meds authorizing provider and meeting all other requirements Today's Visits Date Type Provider Dept 01/09/25 Office Visit Kelly Reynaga, APPLICATION DEFENSE MANAGER [facility] Showing today's visits with a meds authorizing provider and meeting all other requirements Future Appointments No visits were found meeting these conditions. Showing future appointments within next 150 days with a meds authorizing provider and meeting all other requirements Renetta Lawrence MA [facility] 2025-01-07 11:20:13 Copied from [facility] #[id number]. Topic: Clinical - Order >> Jan 07, 2025 11:18 AM Patient Bpm Solution Architect wrote: Rosannehank Moody Bridger (29 year old female) is calling to request refill(s) for tirzepatide (MOUNJARO) 5 mg/0.5 mL subcutaneous injection pen. Please send medication(s) to: [facility] - [address] [place] [id number] Thank you! [facility] 2025-01-02 08:34:24 LOS: 06/14/24 Last refill was sent on 06/14/24 to [facility] for 90 day supply x 3 refills. Pt notified via my chart to contact pharmacy for refill. Camille Kay [facility] 2024-12-15 16:51:33 Pt discharged with diagnosis of acute post traumatic headache, COVID< facial swelling, syncope and collapse, and UTI. Printed and verbal instructions reviewed with and given to pt. Prescriptions given x 1. Pt verbalized understanding of teaching, medication, and recommended follow-up. Denies questions or concerns at this time. Pt ambulatory at discharge. Appears in no apparent distress. No ataxia noted. Accompanied by family. Malini Tirado RN [facility] 2024-12-15 16:20:00 Pending IV fluids for D/C; charge nurse notified; bed locked & lowered with SR upx1; call light within reach; no apparent S&S of distress noticed at this time; plan of care ongoing Doretha Tariq RN [facility] 2024-12-15 16:15:00 Nurse Report Report given to JOHN Coyne from JOHN Finn. Chief complaint, assessment findings, infusion verify and orders reviewed. Plan of care discussed at bedside with patient and both nurses. Patient/family members verbalized understanding. Doretha Tariq RN T [facility] 2024-12-15 16:14:00 Report given to Doretha LOPEZ at this time, pending fluids to finish to d/c Huma Johnson RN [facility] 2024-12-15 15:10:00 Assumed care of patient at this time. Pt 29 y/o female c/o fall and headache today while in the shower. States she has been taking antibiotics for a UTI but stopped them because they weren't working, also states she was diagnosed with covid. GCS15. Resp even and unlabored. No obvious injuries or deformities noted to face/head. NAD. Family at bedside. Placed on monitor. Call light in reach. T [facility] 2024-12-15 12:21:20 Pt arrived by [facility] for a mechanical fall from standing, tripped over her shower, hit left eye/face on toilet, no loc, not on blood thinners, c/o of NAJERA. 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 Hx IDDM Gisselle Wray RN [facility] - [facility] 2024-12-15 12:16:00 [facility] Emergency Department Note Patient Name: Rosanne Resendiz Date of : 1995 29 year old female Treatment Room: TX6 Primary Care Physician: Kelly Reynaga Patient Escorted by: Self [9] Mode of Arrival: [facility] [43] EMS Treatment Prior to ED Arrival: Travel and Exposure Screening: Symptoms Does patient have any of these symptoms?: (not recorded) Exposure Screening Has patient had contact with someone with a communicable disease in the last month?: (not recorded) Diseases exposed to:: (not recorded) Is Patient ?: (not recorded) Exposure Date: (not recorded) Chief Complaint: Chief Complaint Patient presents with Fall Headache History of Present Illness: History of Present Illness This is a patient with a history of diabetes, COVID-19, and a urinary tract infection (UTI) presenting with a fall in the shower. The patient experienced a fall in the shower earlier today, around 11:22 AM, which was preceded by a fainting episode. This was her first instance of fainting. She reports feeling dizzy prior to the fall but did not experience any shortness of breath or chest pain. During the fall, she hit her head on the toilet, resulting in facial swelling. She has not experienced any nausea or vomiting since the incident. The ambulance administered Tylenol for pain relief, which she reports as being somewhat effective. However, she continues to experience dizziness. The patient also mentions that she has been diagnosed with COVID-19. She has a known history of diabetes, which is managed with Mounjaro, administered once weekly on Fridays. Additionally, she has a urinary tract infection (UTI) and is currently on antibiotics. HPI Past Medical History/Immunizations: Past Medical History: Diagnosis Date Acute otitis media, bilateral 11/15/2020 Anemia Anxiety Left arm pain 11/15/2020 Pain in left foot 03/05/2022 Subacute maxillary sinusitis 11/15/2020 Transfusion history Type 2 diabetes mellitus without complication, without long-term current use of insulin Allergies: No Known Allergies Past Social History: Tobacco Use Never smoked or used smokeless tobacco. Passive Exposure: Never Vaping Use Never used Alcohol Use Yes. Comments: ocassional Drug Use Never. Sexual Activity Sexually active; Partners: Male; Control/Protection: Injection. Past Surgical History: Past Surgical History: Procedure Laterality Date CHOLECYSTECTOMY COLONOSCOPY ESOPHAGOGASTRODUODENOSCOPY N/A 09/27/2024 Surgeon: Justen Tang MD; Location: ENDOSCOPY ([facility]) OR LOCATION EXAM UNDER ANESTHESIA ORAL CAVITY (SHX) N/A 11/12/2023 Surgeon: Laura Martínez DDS; Location: [facility] AXEL FOOT ORIF ([facility]) HYOID SUSPENSION N/A 12/09/2023 Surgeon: Laura Martínez DDS; Location: [facility] AXEL LARYNGOSCOPY ([facility]X) N/A 11/12/2023 Surgeon: Laura Martínez DDS; Location: [facility] UVULOPHARYNGOPALATOPLASY Bilateral 12/09/2023 Surgeon: Laura Martínez DDS; Location: [facility] Review of Systems: Review of Systems Constitutional: Positive for diaphoresis and fatigue. Respiratory: Negative for shortness of breath. Cardiovascular: Negative for chest pain. Gastrointestinal: Positive for nausea and vomiting. Negative for abdominal pain. Neurological: Positive for headaches. Physical Exam: Physical Exam ED Triage Vitals [12/15/24 1224] Weight 97.5 kg (215 lb) Actual or estimated Height 1.524 m (5') BP 126/86 Pulse 96 Resp 16 Temp 36.6 ?C (97.9 ?F) Temp source Oral SpO2 97 % Measured on Room air Physical Exam Constitutional: General: She is not in acute distress. Appearance: She is well-developed. HENT: Head: Normocephalic and atraumatic. Comments: Left periorbital edema / swelling. Eyes: Pupils: Pupils are equal, round, and reactive to light. Cardiovascular: Rate and Rhythm: Normal rate. Pulmonary: Effort: Pulmonary effort is normal. Abdominal: General: There is no distension. Musculoskeletal: General: Normal range of motion. Cervical back: Normal range of motion. Skin: General: Skin is warm and dry. Neurological: Mental Status: She is alert and oriented to person, place, and time. Radiology: XR Chest 1 vw Preliminary Result EXAM: XR CHEST 1 VW 12/15/2024 1:15 PM HISTORY: 29 years old Female with syncope TECHNIQUE: Single AP view of the chest. COMPARISON: None FINDINGS: Lines/tubes and devices: None. Lungs and pleura: The lungs are clear. No focal consolidation, pneumothorax, or pleural effusion is seen. Cardiomediastinal: The cardiomediastinal silhouette is normal accounting for technique. Musculoskeletal: No acute osseous abnormality. IMPRESSION No acute cardiopulmonary abnormality. Preliminary Report Dictated by Resident: Paulette Rios CT Head wo contrast Final Result EXAM: CT HEAD WO CONTRAST, CT MAXILLOFACIAL/MANDIBLE WO CONTRAST HISTORY: Head trauma, moderate-severe TECHNIQUE: CTs of the head and face were performed without intravenous contrast. Sagittal and coronal reformats were generated. COMPARISON: None. FINDINGS: CT HEAD: The ventricles and sulci are normal in caliber and configuration. No hydrocephalus, midline shift or pathological extra-axial fluid collection is present. The basal cisterns are unremarkable. There is no acute intracranial hemorrhage or significant mass effect. No parenchymal attenuation abnormality. The gary-white matter differentiation is preserved. The mastoid air cells and paranasal air sinuses are clear. The calvarium and central skull base are unremarkable. CT FACE: The nasal bones and frontal processes of the maxilla are intact. Nasal septum is midline. Nasal cavities are clear. The zygomatic arches, daly of the maxillary sinuses and pterygoid plates are intact. Bony orbits are intact. The eye globes, extraocular muscles and optic sheath complexes are symmetric. Clear intraorbital fat planes. The mandible and temporomandibular joints are intact. Mild degenerative changes of the bilateral temporomandibular joints. Mild mucoperiosteal thickening of the ethmoidal air cells and maxillary sinuses. Mastoid air cells are clear. IMPRESSION No acute intracranial abnormality. No acute facial bone fracture. CT Maxillofacial/mandible wo contrast Final Result EXAM: CT HEAD WO CONTRAST, CT MAXILLOFACIAL/MANDIBLE WO CONTRAST HISTORY: Head trauma, moderate-severe TECHNIQUE: CTs of the head and face were performed without intravenous contrast. Sagittal and coronal reformats were generated. COMPARISON: None. FINDINGS: CT HEAD: The ventricles and sulci are normal in caliber and configuration. No hydrocephalus, midline shift or pathological extra-axial fluid collection is present. The basal cisterns are unremarkable. There is no acute intracranial hemorrhage or significant mass effect. No parenchymal attenuation abnormality. The gary-white matter differentiation is preserved. The mastoid air cells and paranasal air sinuses are clear. The calvarium and central skull base are unremarkable. CT FACE: The nasal bones and frontal processes of the maxilla are intact. Nasal septum is midline. Nasal cavities are clear. The zygomatic arches, daly of the maxillary sinuses and pterygoid plates are intact. Bony orbits are intact. The eye globes, extraocular muscles and optic sheath complexes are symmetric. Clear intraorbital fat planes. The mandible and temporomandibular joints are intact. Mild degenerative changes of the bilateral temporomandibular joints. Mild mucoperiosteal thickening of the ethmoidal air cells and maxillary sinuses. Mastoid air cells are clear. IMPRESSION No acute intracranial abnormality. No acute facial bone fracture. Lab Results: Lab Results CBC WITH DIFF - Abnormal Result Value Ref Range WBC 7.41 4.30 - 11.10 10*3/?L RBC 4.99 3.93 - 5.25 10*6/?L HGB 15.0 11.6 - 15.0 g/dL HCT 45.3 (*) 35.7 - 45.2 % MCV 90.8 80.6 - 95.5 fL MCH 30.1 25.9 - 32.8 pg MCHC 33.1 31.6 - 35.1 g/dL RDW-SD 40.9 39.0 - 49.9 fL RDW-CV 12.4 12.0 - 15.5 % PLT 343 166 - 358 10*3/?L MPV 9.9 9.5 - 12.9 fL NRBC/100 WBC 0.0 0.0 - 10.0 /100 WBCs NRBC x10 3 <0.01 10*3/?L GRAN MAT (NEUT) % 71.6 % IMM GRAN % 0.10 % LYMPH % 21.5 % MONO % 6.1 % EOS % 0.3 % BASO % 0.4 % GRAN MAT x10 3 (ANC) 5.31 1.88 - 7.09 10*3/uL IMM GRAN x10 3 <0.03 0.00 - 0.06 10*3/uL LYMPH x10 3 1.59 1.32 - 3.29 10*3/uL MONO x10 3 0.45 0.33 - 0.92 10*3/uL EOS x10 3 <0.03 (*) 0.03 - 0.39 10*3/uL BASO x10 3 0.03 0.01 - 0.07 10*3/uL COMP. METABOLIC PANEL (55726) - Abnormal NA 141 135 - 145 mmol/L K 3.5 3.5 - 5.0 mmol/L CL 105 98 - 108 mmol/L CO2 TOTAL 26 23 - 31 mmol/L AGAP 10 2 - 16 BUN 8 7 - 23 mg/dL GLUCOSE 175 (*) 70 - 110 mg/dL CREATININE 0.66 0.50 - 1.04 mg/dL TOTAL BILI 0.5 0.1 - 1.1 mg/dL CALCIUM 8.8 8.6 - 10.6 mg/dL T PROTEIN 7.7 6.3 - 8.2 g/dL ALBUMIN 4.1 3.5 - 5.0 g/dL ALK PHOS 188 (*) 34 - 122 U/L ALTv 23 5 - 35 U/L AST(SGOT) 41 (*) 13 - 40 U/L eGFR 120.4 mL/min/1.73m2 URINALYSIS - Abnormal APPEARANCE Cloudy (*) Clear COLOR Doretha (*) Yellow PH 5.0 4.8 - 8.0 SP GRAVITY 1.035 (*) 1.003 - 1.030 GLU U QUAL 50 mg/dL (*) Normal BLOOD 3+ (*) Negative KETONES 5 mg/dL (*) Negative PROTEIN 100 mg/dL (*) Negative UROBILIN Normal Normal BILIRUBIN 2 mg/dL (*) Negative NITRITE Negative Negative LEUK PRETTY 250/uL (*) Negative RBC/HPF >182 (*) 0 - 3 HPF WBC/HPF >182 (*) 0 - 5 HPF BACTERIA Moderate (*) Negative MUCOUS Marked (*) Negative LPF SQ EPITH 35 HPF WBC CLUMPS 8 (*) <=1 HPF CA OXALATE 7 (*) <=1 HPF HYAL CAST 59 (*) <=2 LPF TRANS EPI 3 (*) <=1 HPF MANPREET EPITH 4 (*) <=1 HPF Ictotest Negative GRAN CASTS 8 (*) <=1 LPF TROPONIN I - Normal TROPONIN I 0.001 <=0.034 ng/mL EKG: If EKG completed, see Procedure Note. Orders and Treatments: Orders Placed This Encounter Procedures XR Chest [address] Head wo contrast CT Maxillofacial/mandible wo contrast Cbc with Diff Comp. Metabolic Panel (29976) Troponin I Urinalysis Orders Placed This Encounter Medications NaCl 0.9% (NS) bolus infusion 1,000 mL ketorolac (TORADOL) injection 15 mg cefTRIAXone (ROCEPHIN) 1,000 mg in sterile water for injection 10 mL IV Push levoFLOXacin 750 mg tablet First Provider Eval: ED Events Date/Time Event User Comments 12/15/24 1231 Medical Screening Begins MARGARITO ARIZA -- 12/15/24 1231 First Provider Evaluation MARGARITO ARIZA -- ED COURSE ED Course as of 12/15/24 1518 Brenna Dec 15, 2024 1500 WBC/HPF(!): >182 [PS] 1500 RBC/HPF(!): >182 [PS] 1500 LEUK PRETTY(!): 250/uL [PS] ED Course User Index [PS] Margarito Ariza DO Diagnosis/Impression as of 12/15/24 1518 Acute post-traumatic headache, not intractable COVID-19 Facial swelling Syncope and collapse UTI (urinary tract infection), uncomplicated Results Procedures: Procedures MDM: Assessment & Plan Initial Assessment: Syncopal event in the shower, likely due to dehydration from COVID-19. Facial swelling from hitting head on toilet. Dizziness reported. Differential Diagnosis: - Syncope: Dehydration from COVID-19. Head scan to rule out brain injury. Labs to assess health status. - Urinary Tract Infection (UTI): Previously on cefdinir. Switch to Levaquin. Rocephin injection. - Diabetes Mellitus: Managed with Mounjaro. No changes discussed. - COVID-19: Positive test. Possible dehydration leading to syncope. ED Course: - Orders placed for labs and head scan. - Rocephin injection administered. Final Assessment: Syncopal event likely due to dehydration from COVID-19. Facial swelling from head injury. Labs and head scan ordered. Rocephin injection given for UTI. Clinical Impression: - Syncope - Urinary Tract Infection (UTI) - Diabetes Mellitus - COVID-19 Disposition: - Discharge: Home. Return if worsening dizziness, severe headache, or persistent vomiting. - Follow-Up: Primary care physician. Follow-up for diabetes management. UTI follow-up. Patient Education: Discussed signs of worsening symptoms. Importance of hydration. Medication instructions. PROCEDURE Indication: UTI with COVID Consent: Consent obtained from the patient. Procedure: Administered injection of Rocephin through the patient's line. Medical Decision Making Amount and/or Complexity of Data Reviewed Labs: ordered. Decision-making details documented in ED Course. Radiology: ordered. Risk Prescription drug management. Flowsheet Documentation: Scoring Tools: No data recorded Disposition/Condition: ED Disposition ED Disposition Discharge Condition Stable Comment -- Discharge Medications: Patient's Medications START taking these medications LEVOFLOXACIN 750 MG TABLET Take 1 tablet by mouth every 24 hours. CONTINUE taking these medications which have NOT CHANGED BLOOD SUGAR DIAGNOSTIC (ACCU-CHEK GUIDE TEST STRIPS) STRIP Use to check blood glucose once daily. BLOOD-GLUCOSE METER (ACCU-CHEK GUIDE GLUCOSE METER) MISC Use to check blood glucose once daily. CEFDINIR 300 MG CAPSULE Take 1 capsule by mouth in the morning and 1 capsule in the evening. Do all this for 7 days. FAMOTIDINE 40 MG/5 ML (8 MG/ML) SUSPENSION KETOCONAZOLE 2 % CREAM Apply to area(s) 2 (two) times daily. LANCETS (ONETOUCH ULTRASOFT LANCETS) MISC Use to check blood glucose once daily. Dx E11.9 METFORMIN 500 MG TABLET Take 2 tablets by mouth in the morning and 2 tablets in the evening. Take with meals. NAPROXEN 500 MG TABLET Take 1 tablet by mouth in the morning and 1 tablet in the evening. Take with meals. NYSTATIN 100,000 UNIT/GRAM POWDER Apply to area(s) 2 times daily. ONDANSETRON 4 MG/5 ML SOLUTION PANTOPRAZOLE 40 MG EC TABLET Take 1 tablet by mouth in the morning. NO115/IRON/FOLIC ACID ( 19 ORAL) Take by mouth. PROPRANOLOL 10 MG TABLET Take 1 tablet by mouth in the morning and 1 tablet in the evening. ROSUVASTATIN 10 MG TABLET Take 1 tablet by mouth at bedtime. TIRZEPATIDE (MOUNJARO) 5 MG/0.5 ML SUBCUTANEOUS INJECTION PEN inject 5 mg under the skin weekly. TRIAMCINOLONE ACETONIDE 0.1 % CREAM Apply to area(s) 2 (two) times daily. START taking Modified Medications as Prescribed No medications on file STOP taking these medications No medications on file Follow-up: Contact information for follow-up Kelly Reynaga FNP Specialty: JESSIE-FAMILY Relationship: PCP - General [facility] [address] [facility] [id number] Instructions: For follow up of the presenting symptoms. [facility] Specialty: Emergency Medicine [address] [facility] [address] Instructions: If symptoms worsen as documented in the discharge Electronically signed by: Margarito Ariza DO 12/15/24 1518 [facility] 2024-12-12 09:05:57 Patient dc home. Follow up with pcp as needed. Silvestre Barrera RN [facility] 2024-12-12 08:34:01 Fever and cough starting at 0000. Motrin taken at 0600. HX: DM Anya Franco RN [facility] 2024-12-12 08:28:00 [facility] Emergency Department Note Patient Name: Rosanne Resendiz Date of : 1995 29 year old female Treatment Room: [facility] Primary Care Physician: Kelly Reynaga Patient Escorted by: Self [9] Mode of Arrival: Personal means [1] EMS Treatment Prior to ED Arrival: Travel and Exposure Screening: Symptoms Does patient have any of these symptoms?: (not recorded) Exposure Screening Has patient had contact with someone with a communicable disease in the last month?: (not recorded) Diseases exposed to:: (not recorded) Is Patient ?: (not recorded) Exposure Date: (not recorded) Chief Complaint: Chief Complaint Patient presents with Fever History of Present Illness: History of Present Illness The patient presents from home for evaluation for cough and fever that started yesterday. She last had a dose of Motrin around 6 AM. She reports her mother and stepfather are sick with similar symptoms. No history of asthma. She does not smoke. No shortness of breath. No ear pain. Her vaccines up-to-date. She does have a history of diabetes and takes oral medications. Here for evaluation. Past Medical History/Immunizations: Past Medical History: Diagnosis Date Acute otitis media, bilateral 11/15/2020 Anemia Anxiety Left arm pain 11/15/2020 Pain in left foot 03/05/2022 Subacute maxillary sinusitis 11/15/2020 Transfusion history Type 2 diabetes mellitus without complication, without long-term current use of insulin Allergies: No Known Allergies Past Social History: Tobacco Use Never smoked or used smokeless tobacco. Passive Exposure: Never Vaping Use Never used Alcohol Use Yes. Comments: ocassional Drug Use Never. Sexual Activity Sexually active; Partners: Male; Control/Protection: Injection. Past Surgical History: Past Surgical History: Procedure Laterality Date CHOLECYSTECTOMY COLONOSCOPY ESOPHAGOGASTRODUODENOSCOPY N/A 09/27/2024 Surgeon: Justen Tang MD; Location: [facility]OSCOPY ([facility]) OR LOCATION EXAM UNDER ANESTHESIA ORAL CAVITY ([facility]X) N/A 11/12/2023 Surgeon: Laura Martínez DDS; Location: [facility] AXEL FOOT ORIF ([facility]) HYOID SUSPENSION N/A 12/09/2023 Surgeon: Laura Martínez DDS; Location: [facility] LARYNGOSCOPY ([facility]) N/A 11/12/2023 Surgeon: Laura Martínez DDS; Location: [facility] UVULOPHARYNGOPALATOPLASY Bilateral 12/09/2023 Surgeon: Laura Martínez DDS; Location: [facility] Review of Systems: Review of Systems Constitutional: Positive for fever. Negative for chills. HENT: Positive for congestion. Respiratory: Positive for cough. Cardiovascular: Negative for chest pain. Gastrointestinal: Negative for abdominal pain and vomiting. Genitourinary: Negative for dysuria. Musculoskeletal: Negative for arthralgias and neck pain. Skin: Negative for wound. Neurological: Negative for dizziness. Psychiatric/Behavioral: Negative for agitation. Endocrine: Negative for goiter. Physical Exam: Physical Exam ED Triage Vitals [12/12/24 0833] Weight 93 kg (205 lb) Actual or estimated Height 1.524 m (5') BP (!) 121/98 Pulse 120 Resp 19 Temp 36.7 ?C (98.1 ?F) Temp source Oral SpO2 95 % Measured on Room air Physical Exam Vitals and nursing note reviewed. Constitutional: Appearance: Normal appearance. She is obese. HENT: Head: Normocephalic and atraumatic. Right Ear: Tympanic membrane, ear canal and external ear normal. Left Ear: Tympanic membrane, ear canal and external ear normal. Mouth/Throat: Mouth: Mucous membranes are moist. Pharynx: Oropharynx is clear. No oropharyngeal exudate or posterior oropharyngeal erythema. Cardiovascular: Rate and Rhythm: Normal rate and regular rhythm. Pulses: Normal pulses. Pulmonary: Effort: Pulmonary effort is normal. No respiratory distress. Breath sounds: No stridor. No wheezing or rhonchi. Abdominal: General: There is no distension. Palpations: Abdomen is soft. There is no mass. Tenderness: There is no abdominal tenderness. There is no guarding. Hernia: No hernia is present. Musculoskeletal: General: Normal range of motion. Cervical back: Normal range of motion and neck supple. Skin: General: Skin is warm and dry. Neurological: General: No focal deficit present. Mental Status: She is alert and oriented to person, place, and time. Radiology: No orders to display Lab Results: Lab Results - No data to display EKG: If EKG completed, see Procedure Note. Orders and Treatments: Orders Placed This Encounter Procedures Influenza A B RSV COVID NAAT No orders of the defined types were placed in this encounter. First Provider Eval: ED Events Date/Time Event User Comments 12/12/24 0832 Medical Screening Begins JANAY PEREZ DO -- 12/12/24 0832 First Provider Evaluation JANAY PEREZ DO -- ED COURSE Diagnosis/Impression as of 12/12/24 0846 Upper respiratory tract infection, unspecified type Results Procedures: Procedures MDM: Assessment & Plan Medical Decision Making The patient presents from home for evaluation for cough and fever that started yesterday. She last had a dose of Motrin around 6 AM. She reports her mother and stepfather are sick with similar symptoms. No history of asthma. She does not smoke. No shortness of breath. No ear pain. Her vaccines up-to-date. She does have a history of diabetes and takes oral medications. The patient was tachycardic on arrival to the ER but is afebrile. She is obese. Her lungs are clear bilaterally. Her tympanic membranes are pearly gary. Her pharynx is pink and without excess erythema. No concern for bacterial infection. Suspected viral syndrome. Will screen the patient for COVID, RSV as well as influenza. She may follow-up with the results on the [employer] jessie. Recommend use [id number] cough and cold medications as needed. She remained stable here in the ER and is okay for discharge home with PCP follow-up in 1 week. Amount and/or Complexity of Data Reviewed Labs: ordered. Decision-making details documented in ED Course. Flowsheet Documentation: Scoring Tools: No data recorded Disposition/Condition: ED Disposition ED Disposition Discharge Condition Stable Comment -- Discharge Medications: Patient's Medications START taking these medications No medications on file CONTINUE taking these medications which have NOT CHANGED BLOOD SUGAR DIAGNOSTIC (ACCU-CHEK GUIDE TEST STRIPS) STRIP Use to check blood glucose once daily. BLOOD-GLUCOSE METER (ACCU-CHEK GUIDE GLUCOSE METER) MISC Use to check blood glucose once daily. CEFDINIR 300 MG CAPSULE Take 1 capsule by mouth in the morning and 1 capsule in the evening. Do all this for 7 days. FAMOTIDINE 40 MG/5 ML (8 MG/ML) SUSPENSION KETOCONAZOLE 2 % CREAM Apply to area(s) 2 (two) times daily. LANCETS (ONETOUCH ULTRASOFT LANCETS) MISC Use to check blood glucose once daily. Dx E11.9 METFORMIN 500 MG TABLET Take 2 tablets by mouth in the morning and 2 tablets in the evening. Take with meals. NAPROXEN 500 MG TABLET Take 1 tablet by mouth in the morning and 1 tablet in the evening. Take with meals. NYSTATIN 100,000 UNIT/GRAM POWDER Apply to area(s) 2 times daily. ONDANSETRON 4 MG/5 ML SOLUTION PANTOPRAZOLE 40 MG EC TABLET Take 1 tablet by mouth in the morning. NO115/IRON/FOLIC ACID ( 19 ORAL) Take by mouth. PROPRANOLOL 10 MG TABLET Take 1 tablet by mouth in the morning and 1 tablet in the evening. ROSUVASTATIN 10 MG TABLET Take 1 tablet by mouth at bedtime. TIRZEPATIDE (MOUNJARO) 5 MG/0.5 ML SUBCUTANEOUS INJECTION PEN inject 5 mg under the skin weekly. TRIAMCINOLONE ACETONIDE 0.1 % CREAM Apply to area(s) 2 (two) times daily. START taking Modified Medications as Prescribed No medications on file STOP taking these medications No medications on file Follow-up: Electronically signed by: Janay Perez DO 12/12/24 0846 [facility] 2024-12-11 00:48:24 Pt given printed and verbal discharge instructions regarding fever, UTI Prescriptions provided: -cefdinir 300 mg capsule Pt verbalized understanding of instructions, pt awake alert oriented, resp reg unlabored, skin w/d, color appropriate for race, moves all ext well,pt encouraged to follow up with pcp Advised to seek medical attention for new/prolonged/worsening of symptoms No adverse reaction to meds given in ER noted upon discharge Awake, alert oriented, resp reg unlabored, skin w/d, pt leaving amb with steady gait, in no apparent distress [facility] 2024-12-10 22:14:03 C/o headache, sneezing, body aches, chills x2 days [facility] Sanjuanita Fishman RN [facility] 2024-12-07 10:26:34 Yes, last seen for wellness exam so 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 [facility] 2024-12-06 14:58:06 LM on VM. WILIAN VASQUEZ RN 12/06/2024 2:58 PM Wilian Vasquez RN [facility] 2024-12-06 10:52:39 LM on for pt to return call. Playviews message sent. WILIAN VASQUEZ RN 12/06/2024 10:53 AM [facility] 2024-12-05 14:23:24 Copied from [facility] #[id number]. Topic: Clinical - Medical Advice >> Dec 05, 2024 2:21 PM Patient Bpm Solution Architect wrote: Rosanne Resendiz is a 29 year old female Pt returning the call, pls call the patient. Gloria Bernal [facility] 2024-12-05 14:12:46 LM on for pt to return call. WILIAN VASQUEZ RN 12/05/2024 2:12 PM [facility] 2024-12-05 13:18:31 Copied from [facility] #[id number]. Topic: Clinical - Medical Advice >> Dec 05, 2024 1:16 PM Patient Bpm Solution Architect wrote: Rosanne Resendiz Patient would like to discuss having depo shot earlier that is supposed to as her cycles are making her sleepy; she is concerned iron might be low. Diamond Garcia [facility] 2024-11-29 15:15:00 Images from the original note were not included. Venipuncture collection performed by clean technique on the left anticubitus. Total of 1 attempts were made. Slight pressure and a bandage/dressing were applied to the site(s). The patient experienced no complications. The following specimens were processed according to instructions and sent to [facility] laboratories per lab order on 11/29/2024 : LT BLUE SST 1 RED LAV 2 PPT DK GREEN (LiHep) DK GREEN (SodH) GARY DK BLUE (K2) DK BLUE (S) ACD Blood Culture NIPT/NTD [facility] 2024-11-29 08:54:17 Patient scheduled appointment for medicine dosage increase Susan Henderson [facility] 2024-11-23 13:15:14 Please schedule appointment for dose increase. Renetta Lawrence MA [facility] 2024-11-22 16:14:11 She needs to go up a dose after 1 month of the base dose. Schedule face to face for dose increase, it can be with any available Provider. [facility] 2024-11-22 14:48:32 Images from the original note were not included. Notes: 11/04/24 Last Refilled: [facility] [id number] [place] [address] Recent Visits Date Type Provider Dept 11/04/24 Office Visit Kelly Reynaga FNP [facility] 09/07/24 Office Visit Nicky Peck PA [facility] 08/02/24 Office Visit Razgermaine GRACIELA Kevin [facility] 03/23/24 Office Visit Nicky Peck PA [facility] 02/18/24 Office Visit Kelly ReynagaGRACIELA [facility] 01/14/24 Office Visit Nicky Peck PA [facility] 01/13/24 Appointment CiscoNicky navarro PA [facility] 12/07/23 Office Visit Razgermaine KellyGRACIELA [facility] 07/24/23 Office Visit Nicky Peck PA [facility] 06/17/23 Office Visit Nicky Peck PA [facility] Showing recent visits within past 540 days with a meds authorizing provider and meeting all other requirements Future Appointments No visits were found meeting these conditions. Showing future appointments within next 150 days with a meds authorizing provider and meeting all other requirements tirzepatide (MOUNJARO) 2.5 mg/0.5 mL subcutaneous injection pen Possible duplicate: Joshua to review recent actions on this medication Sig: inject 2.5 mg under the skin weekly. Disp: 2 mL Refills: 0 Start: 11/22/2024 Class: eRX Non-formulary For: Type 2 diabetes mellitus without complication, without long-term current use of insulin; Morbid obesity Last ordered: 2 weeks ago (11/04/2024) by GRACIELA Rice Rx #: [id number] Off-Protocol [id number]/22/2024 11:38 AM Protocol Details Medication not assigned to a protocol, forward to provider. Valid encounter within last 12 months To be filled at: [facility] [id number] [address] Aaliyah Macdonald MA [facility] 2024-11-15 16:12:[address] [facility] from 11/09/24 will be placed in providers box. Pathology report from was also received and will be placed in providers box. Camille Leija [facility] 2024-11-09 08:38:43 Patient has been scheduled for 1 mth f/u please close encounter Ruby Portillo [facility] 2024-11-09 03:53:32 Not 2 weeks, in 1 month. [facility] 2024-11-08 11:18:13 Pt stated her Shawn is on the way and was told to f/u in 2 weeks once she received it there are only new pt slots available, am I able to place pt on TOURIST CABIN KEEPER slot? Laura Goldberg [facility] 2024-11-06 19:33:05 Please review Monica Fernando LVN [facility] 2024-11-06 10:50:51 Received outside Radiology Services Report from [facility] and have scanned into patient's chart. Lucy Dietz [facility] 2024 17:03:28 Name and verified. Pt c/o 03/17 RLQ abd pain which started "now". Instructed pt to go to the ER. Verbalized understanding. WILIAN VASQUEZ RN 2024 5:04 PM Wilian Vasquez RN [facility] 2024 16:05:07 Rosanne Resendiz is a 29 year old female patient called states she is experiencing lower rt abdominal pain. Asking to speak with a nurse. Asked to be reached at this number [phone] Chelle Lyons [facility] 2024-10-21 13:10:32 Rosanne Resendiz is a 28 year old female Pt called regarding rx pantoprazole 2 mg/mL oral suspension states pharmacy does not have this scripts in there system please resend. Vince Avilez [facility] 2024-10-21 08:03:39 We can send to a different pharmacy or try and oral tablet [facility] 2024-10-20 16:47:19 Rosanne Resendiz is a 28 year old female PT calling for refill of pantoprazole 2 mg/mL oral suspension, they do not have it at her pharmacy, please advise. [facility] [id number] [place] [address] Arnaldo Farooq [facility] 2024-10-18 09:37:20 Refill: onetouch lancets LOS: 06/24/2024 NOV: 12/23/2024 Refill sent Chaparrita Johnson RN [facility] 2024-10-10 09:00:00 Images from the original note were not included. Venipuncture collection performed by clean technique on the left anticubitus. Total of 1 attempts were made. Slight pressure and a bandage/dressing were applied to the site(s). The patient experienced no complications. The following specimens were processed according to instructions and sent to [facility] laboratories LT BLUE Lt Green SST 2 RED LAV PPT DK GREEN (L) DK GREEN (S)/// Fibrosure set BLUE,SST & LAV GARY DK BLUE (K2) DK BLUE (S) ACD RST BLOOD CULTURE SET BLOOD CULTURE (AFB AND FUNGUS ) VERIFYNOW Monogram TYPENEX (LAV TOP) ARM BAND ON PATIENT Z plasma preservative tube (call lab for tube)ARUP Vasoactive Intestinal Peptide (call lab for tube)ARUP FEDEX ( NIPT) Thrombotic Risk Reflex Panel URINE URINE CULTURE APTIMA URINE STOOL [facility] 2024-09-26 14:38:35 Notified patient, she will call her dentist office Renetta Lawrence MA [facility] 2024-09-23 18:44:51 The dental necessity letter needs to come from her dentist, even at that, it may be unlikely her insurance will cover. Medicaid does not cover dental usually. [facility] 2024-09-23 13:41:36 Spoke with patients mother (ec) and they are wanting some kind of note for Medicaid stating that she needs to have this tooth pulled or it could jeopardize her health. [facility] 2024-09-22 15:54:52 Rosanne Reesndiz is a 28 year old female and pt is asking to speak to clinic about a chipped tooth she has had for 8 weeks. Would like to speak with a nurse. Nisha Whiting [facility] 2024-09-14 10:59:38 Patient contacted for pre op phone call. Patient given procedural prep instructions (EGD), NPO status/timing for procedure, medication instructions : instructed to hold metformin the morning of procedure. Denies anticoagulant therapy, diuretics, any other diabetic or weight loss medications. Patient verbalized understanding of instructions. Discussed with patient they will need a responsible adult, 18 years old or older, to provide transportation on the day of procedure. Patient also informed that they will be contacted the day before their procedure with arrival time. Pre op call complete. Prep and medication instructions sent via [employer]. Wilian Castro RN [facility] 2024-09-05 09:45:16 Pt has appt set up with [facility] for 09/07/2024. Closing encounter. Laura Goldberg [facility] 2024-09-02 15:07:10 Please assist with scheduling an office visit per Provider. Thank you. Monica Fernando LVN [facility] 2024-09-02 13:05:59 Follow up as needed. [facility] 2024-09-02 09:17:27 Please review and advise. -LMTCB Monica Fernando LVN 09/02/2024 LOS 08/02/24 [facility] 2024-09-02 08:28:17 Rosanne Resendiz is a 28 year old female Pt was seen in the ER for her stomach on 08/19 and was DX with a stomach virus. Pt states that yesterday her stomach started closing up and she is unable to eat. Please call [phone] T Janay Abdullahi [facility] 2024-08-12 09:48:01 Please review and advise. K (mmol/L) Date Value 08/02/2024 4.0 [facility] Monica Fernando [facility] 2024-08-11 16:08:33 You need to see a dentist for that. [facility] 2024-08-08 08:21:22 Patient denies receiving any steroid shots. Please review and advise. LOS 08/02/24 NOV 02/01/25[place] [facility] Monica Fernando SANDBLASTER PAINT SPRAYER [facility] 2024-08-03 13:05:34 Pt called regarding her results. 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 Pt would like a call back at---[phone] Please Advise. K SKETCH ARTIST Janis Peralta [facility] 2024-08-02 16:30:00 Images from the original note were not included. Venipuncture collection performed by clean technique on the left anticubitus. Total of 1 attempts were made. Slight pressure and a bandage/dressing were applied to the site(s). The patient experienced no complications. The following specimens were processed according to instructions and sent to [facility] laboratories per lab order on today: LT BLUE SST RED LAV 1 PPT LT GREEN (LiHep) 1 DK GREEN (SodH) GARY DK BLUE (K2) DK BLUE (S) ACD Blood Culture NIPT/NTD Patient has been identified by name and was provided with cup, antiseptic towelette, and clean catch instructions. 2 urine specimen(s) sent. Unpreserved 1 Urine Culture 1 Aptima tube Other urine [facility] 2024-07-29 09:33:50 Patient scheduled for ortho - closing encounter Portillo [facility] 2024-07-29 08:27:12 No answer, voicemail left. Patient notified that we cannot just give out boots. Patient has an appointment with Dr. Cleaning on 08/01/24. Stringer RN [facility] 2024-07-29 08:11:29 Pt was requesting if she could cotton picker a boot for her Right foot pain to avoid hurting it any more. Her call back number is [phone]. Goldberg [facility] 2024-07-28 16:49:19 Referral placed. Please schedule with ortho. Epic images. Seen in ED 07/28/24 [facility] 2024-07-28 16:39:45 Please add referral to ortho [facility] 2024-07-28 14:37:07 Please advise if you would like pt to come in clinic to be evaluated. [facility] 2024-07-28 14:19:01 Rosanne Resendiz is a 28 year old female Patient is calling, stating that they were seen by the ED this morning (07/28) for an injury to their foot. Patient is now requesting if provider will assist in provider orders for the patient to get a boot for their right foot. Please advise. Godwin [facility] 2024-07-28 09:29:08 Pt given printed and verbal discharge instructions regarding right foot pain, encouraged hydration, 1 Prescriptions sent. Discussed ibuprofen and to take with food to avoid GI distress. Pt verbalized understanding of instructions, pt awake alert oriented, resp reg unlabored, skin w/d, color appropriate for race, moves all ext well,pt encouraged to follow up with pcp. Advised to seek medical attention for new/prolonged/worsening of symptoms, Symptoms improved. Awake, alert oriented, resp reg unlabored, skin w/d, pt leaving amb with steady gait, in no apparent distress, Bowden RN [facility] 2024-07-28 08:25:29 Pt arrived ambulatory states she twisted her right foot in the garage 2 nights ago, c/o swelling and pain. K SKETCH ARTIST Gisselle Wray RN [facility] 2024-07-28 08:21:00 [facility] Emergency Department Note Patient Name: Rosanne Resendiz Date of : 1995 28 year old female Treatment Room: [facility] ED [facility] Primary Care Physician: Kelly Reynaga Patient Escorted by: Self [9] Mode of Arrival: Personal means [1] EMS Treatment Prior to ED Arrival: REGISTERED NURSE OBSTETRICS treatment: None Travel and Exposure Screening: Symptoms Does patient have any of these symptoms?: (not recorded) Exposure Screening Has patient had contact with someone with a communicable disease in the last month?: (not recorded) Diseases exposed to:: (not recorded) Is Patient ?: (not recorded) Exposure Date: (not recorded) Chief Complaint: Chief Complaint Patient presents with Foot Pain right History of Present Illness: Rosanne Resendiz is a 28 year old female with right foot pain after twisting it. No obvious deformity. No contusion. Pain over 5th MTP. Past Medical History/Immunizations: Past Medical History: Diagnosis Date Acute otitis media, bilateral 11/15/2020 Anemia Anxiety Left arm pain 11/15/2020 Pain in left foot 03/05/2022 Subacute maxillary sinusitis 11/15/2020 Transfusion history Type 2 diabetes mellitus without complication, without long-term current use of insulin Tetanus received in last 5 years: Unknown Childhood immunizations: Up-to-date Allergies: No Known Allergies Past Social History: Tobacco Use Never smoked or used smokeless tobacco. Passive Exposure: Never Vaping Use Never used Alcohol Use Yes. Comments: ocassional Drug Use Never. Sexual Activity Sexually active; Partners: Male; Control/Protection: Injection. Past Surgical History: Past Surgical History: Procedure Laterality Date CHOLECYSTECTOMY COLONOSCOPY EXAM UNDER ANESTHESIA ORAL CAVITY (SHX) N/A 11/12/2023 Surgeon: Laura Martínez DDS; Location: [facility] FOOT ORIF (SHX) HYOID SUSPENSION N/A 12/09/2023 Surgeon: Laura Martínez DDS; Location: [facility] LARYNGOSCOPY (SHX) N/A 11/12/2023 Surgeon: Laura Martínez DDS; Location: [facility] UVULOPHARYNGOPALATOPLASY Bilateral 12/09/2023 Surgeon: Laura Martínez DDS; Location: [facility] Review of Systems: Review of Systems Constitutional: Negative for fever. Musculoskeletal: Positive for arthralgias. Neurological: Negative for weakness and numbness. Physical Exam: ED Triage Vitals Weight 07/28/24824 97.5 kg (215 lb) Actual or estimated 07/28/24824 Estimated by patient/family report Height 07/28/24824 1.524 m (5') BP 07/28/24826 (!) 135/96 Pulse 07/28/24826 95 Resp 07/28/24826 16 Temp 07/28/24826 36.7 ?C (98.1 ?F) Temp source 07/28/24826 Oral SpO2 07/28/24826 98 % Measured on 07/28/24826 Room air Physical Exam Constitutional: General: She is not in acute distress. Appearance: She is well-developed. HENT: Head: Normocephalic and atraumatic. Eyes: Pupils: Pupils are equal, round, and reactive to light. Cardiovascular: Rate and Rhythm: Normal rate. Pulmonary: Effort: Pulmonary effort is normal. Abdominal: General: There is no distension. Musculoskeletal: General: Tenderness (right 5th MTP.) present. No swelling, deformity or signs of injury. Normal range of motion. Cervical back: Normal range of motion. Skin: General: Skin is warm and dry. Neurological: Mental Status: She is alert and oriented to person, place, and time. Radiology: XR Foot <3 vw right Final Result HISTORY: Right fifth MTP pain. FINDINGS: AP, lateral, oblique views of right foot are obtained and compared with 03/23/2024 study. No acute fracture or dislocation. Previously suspected fracture in the proximal shaft close to the base of third and fourth metatarsal bones may have completely healed in the interim since 03/23/2024 study. No significant changes of arthritis or aggressive bone lesions seen. Prominent 5.5 mm heel spur noted. CONCLUSIONS: Heel spur. No fracture or bone lesions or soft tissue calcifications detected. Lab Results: Lab Results - No data to display EKG: If EKG completed, see Procedure Note. Orders and Treatments: Orders Placed This Encounter Procedures XR Foot <3 vw right Orders Placed This Encounter Medications naproxen 500 mg tablet First Provider Eval: ED Events Date/Time Event User Comments 07/28/24828 Medical Screening Begins MARGARITO ARIZA -- 07/28/24828 First Provider Evaluation MARGARITO ARIZA -- ED COURSE Diagnosis/Impression as of 07/28/24 0918 Right foot pain Procedures: Procedures MDM: Medical Decision Making Problems Addressed: Right foot pain: acute illness or injury Details: No fracture. Home with anaprox. Amount and/or Complexity of Data Reviewed Radiology: ordered. Flowsheet Documentation: Scoring Tools: No data recorded Disposition/Condition: ED Disposition ED Disposition Discharge Condition Stable Comment -- Discharge Medications: Patient's Medications START taking these medications NAPROXEN 500 MG TABLET Take 1 tablet by mouth in the morning and 1 tablet in the evening. Take with meals. CONTINUE taking these medications which have NOT CHANGED AMOXICILLIN-CLAVULANATE 875-125 MG PER TABLET Take 1 tablet by mouth every 12 (twelve) hours. BLOOD SUGAR DIAGNOSTIC (ACCU-CHEK GUIDE TEST STRIPS) STRIP Use to check blood glucose once daily. BLOOD-GLUCOSE METER (ACCU-CHEK GUIDE GLUCOSE METER) MISC Use to check blood glucose once daily. FAMOTIDINE 40 MG/5 ML (8 MG/ML) SUSPENSION KETOCONAZOLE 2 % CREAM Apply to area(s) 2 (two) times daily. LANCETS (ONETOUCH ULTRASOFT LANCETS) MISC Use to check blood glucose once daily. METFORMIN 500 MG TABLET Take 1 tablet by mouth in the morning and 1 tablet in the evening. Take with meals. METHYLPREDNISOLONE (MEDROL, JESSICA,) 4 MG TABLETS Take by mouth SEE-INSTRUCTIONS. follow package directions PANTOPRAZOLE 2 MG/ML ORAL SUSPENSION Take 20 mL by mouth in the morning. NO115/IRON/FOLIC ACID ( 19 ORAL) Take by mouth. PROPRANOLOL 10 MG TABLET Take 1 tablet by mouth in the morning and 1 tablet in the evening. TRIAMCINOLONE ACETONIDE 0.1 % CREAM Apply to area(s) 2 (two) times daily. START taking Modified Medications as Prescribed No medications on file STOP taking these medications No medications on file Follow-up: Contact information for follow-up Kelly Reynaga FNP Specialty: JESSIE-FAMILY Relationship: PCP - General [facility] [address] [facility] [id number] Instructions: For follow up of the presenting symptoms. [facility] Specialty: Emergency Medicine [address] [facility] [address] Instructions: If symptoms worsen as documented in the discharge Electronically signed by: Margarito Ariza DO 07/28/24 0918 K SKETCH ARTIST [facility] 2024-07-27 14:45:20 Tried reaching patient, no answer. Left message for patient that I am sending Tiffany's test findings and recommendations to her Mychart and asked that she call Radiology to schedule the Ultrasound. Sferrahart message sent. Aguilar RN [facility] 2024-07-27 12:02:31 Spoke with patient, verified name and . Patient has appt 08/02 with primary care and will go over with them Molina RN [facility] 2024-07-27 11:49:45 If patient needs liver biopsy, they will give referral after appointment in September. I have called patient and left vm. I have also mychart messaged the patient Molina RN [facility] 2024-07-26 16:44:51 Rosanne Resendiz is a 28 year old female Pt is calling to speak with a nurse regarding lab results, Please advise [phone] (home) K SKETCH ARTIST Shraddha Cerda [facility] 2024-07-26 13:25:38 Tried reaching patient, no answer. Left message for patient to call me back. K SKETCH ARTIST Jacey Aguilar RN [facility] 2024-07-26 11:46:37 Rosanne Resendiz is a 28 year old female Pt is calling to get a referral for a liver biopsy. Please advise patient K SKETCH ARTIST Janay Abdullahi [facility] 2024-07-19 12:00:00 Images from the original note were not included. Venipuncture collection performed by clean technique on the left anticubitus. Total of 1 attempts were made. Slight pressure and a bandage/dressing were applied to the site(s). The patient experienced no complications. The following specimens were processed according to instructions and sent to [facility] laboratories LT BLUE 1 Lt Green SST 3 RED LAV PPT DK GREEN (L) DK GREEN (S)/// Fibrosure set BLUE,SST & LAV GARY DK BLUE (K2) DK BLUE (S) ACD RST BLOOD CULTURE SET BLOOD CULTURE (AFB AND FUNGUS ) VERIFYNOW Monogram TYPENEX (LAV TOP) ARM BAND ON PATIENT Z plasma preservative tube (call lab for tube)ARUP Vasoactive Intestinal Peptide (call lab for tube)ARUP FEDEX ( NIPT) Thrombotic Risk Reflex Panel URINE URINE CULTURE APTIMA URINE STOOL K SKETCH ARTIST [facility] 2024-07-18 13:12:43 Tried reaching patient, no answer. Left message for patient to call me back. 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 One of her liver enzymes (alk phos) has been elevated. Will order an ultrasound and refer her to our liver specialist [facility] 2024-07-18 09:31:45 LOS: 07/13/2024 Pantoprazole refill request duplicate NOV: 09/21/2024 K SKETCH ARTIST Paula Vela MA [facility] 2024-07-18 08:57:44 Tiffany, Please advise on 07/13/24 lab results. Thank you K SKETCH ARTIST Jacey Aguilar RN [facility] 2024-07-18 08:48:14 Rosanne Resendiz is a 28 year old female Pt asking fro call back regarding recent lab results states she sees she was positive for something asking to discuss please advise [phone] (home). Avilez [facility] 2024-07-18 08:46:13 Rosanne Resendiz is a 28 year old female Pt called regarding rx pantoprazole 2 mg/mL oral suspension states pharmacy has not received this order asking for it to be resent please advise. [facility] [id number] [place] [address] [facility] 2024-07-13 14:00:00 Images from the original note were not included. Venipuncture collection performed by clean technique on the right anticubitus. Total of 1 attempts were made. Slight pressure and a bandage/dressing were applied to the site(s). The patient experienced no complications. The following specimens were processed according to instructions and sent to [facility] laboratories per lab order on 07/13/2024 : LT BLUE SST 4 RED LAV 1 PPT DK GREEN (LiHep) DK GREEN (SodH) GARY DK BLUE (K2) DK BLUE (S) ACD Blood Culture NIPT/NTD [facility] 2024-06-24 15:37:07 Prescription resent with clarified sig [facility] 2024-06-24 15:10:36 [facility] is calling for new prescriptions sent for the meter, test strips and lancets. There are no instructions-dosage and frequency. [facility] [id number] [place] [place] [address] [place] [address] [facility] Janie Hidalgo [facility] 2024-06-22 07:45:00 Images from the original note were not included. Venipuncture collection performed by clean technique on the left anticubitus. Total of 1 attempts were made. Slight pressure and a bandage/dressing were applied to the site(s). The patient experienced no complications. The following specimens were processed according to instructions and sent to [facility] laboratories per lab order on 06/22/2024 : LT BLUE SST RED LAV 1 PPT DK GREEN (LiHep) DK GREEN (SodH) GARY DK BLUE (K2) DK BLUE (S) ACD Blood Culture NIPT/NTD [facility] 2024-06-03 15:01:26 Spoke to pt. And mother; informed them of Dr. Grubbs note. Explained to them per Dr. Cleaning pt. To keep f/u appt. And if patient has any s/s of dysphagia, dysphonia, inability to manage secretions, uncontrolled pain to go to nearest ED. Pt. And mother verbalized understanding. Brea Carrion RN 06/03/2024 3:04 PM K SKETCH ARTIST Brea Carrion RN [facility] 2024-06-02 08:43:37 Pt called to make a follow up appointment from her ED visit on 05/30. Informed pt her appointment on 06/17 would be the first available. Pt is nervous that she might need to be seen sooner. Please advise. Connell [facility] 2024-05-30 08:40:34 Rosanne Resendiz is a 28 year old female Patient is calling to schedule appt from referral on file for S12.8XXA (ICD-10-CM) - Closed fracture of larynx and trachea, initial encounter Please advise [phone] (home) [facility] [id number] [place] [address] Nieves [facility] 2024-05-30 08:10:17 Patient given printed and verbal discharge instructions regarding fracture of larynx, encouraged hydration and proper nutrition Prescriptions provided: amox-clav Discussed antibiotic therapy and to take until all completed unless adverse reaction occurs - if occurs, discontinue medication and follow up with pcp/seek medical attention Discussed indications, medication side effects, and therapeutic response to medications. Advised to take until completed unless adverse reaction occurs - if occurs, discontinue medication and follow up with PCP/seek medical attention. Patient verbalized understanding of instructions. Patient awake alert oriented, respirations even and unlabored, no acute distress noted, skin warm & dry, color appropriate for race, moves all extremities well. Patient encouraged to follow up with PCP and to keep all appropriate appointments as scheduled or to return to ED for new/prolonged/worsening of symptoms No adverse reaction to medications given in ER noted upon discharge PIV d'cd without complications, dressing to site, catheter intact. Patient ambulatory to lobby with steady gait awaiting her mom to pick her up, NAD noted, in possession of all belongings. [facility] Alanna Lyle RN [facility] 2024-05-30 07:56:14 Dr Mckeon at bedside [facility] Claribel Yang RN [facility] 2024-05-30 06:07:19 Pt resting comfortably, no distress, denies any needs at this time. Pending dispo. [facility] 2024-05-30 05:15:00 Resident at bedside [facility] 2024-05-30 04:30:00 Pt sitting up in stretcher, call light in reach. No distress. [facility] 2024-05-30 04:26:29 Rosanne Resendiz is a 28 year old female arrives to ED in stretcher via EMS as transfer from [facility] accepted by oral surgery for possible infection vs. Hyoid fracture. Pt had palate surgery in December. Oral surgery MD notified of patient arrival to ER. Lira RN [facility] - [facility] 2024-05-30 04:24:00 [facility] Emergency Department Note Patient Name: Rosanne Resendiz Date of : 1995 28 year old female Treatment Room: [address] [place] [address] Primary Care Physician: Kelly Reynaga Patient Escorted by: Self [9] Mode of Arrival: EMS - [facility] [44] EMS Treatment Prior to ED Arrival: REGISTERED NURSE OBSTETRICS treatment: Other (comment) REGISTERED NURSE OBSTETRICS treatment comments: transfer from [facility] ED Travel and Exposure Screening: Symptoms Does patient have any of these symptoms?: (not recorded) Exposure Screening Has patient had contact with someone with a communicable disease in the last month?: (not recorded) Diseases exposed to:: (not recorded) Is Patient ?: (not recorded) Exposure Date: (not recorded) Chief Complaint: Chief Complaint Patient presents with Referral/consult Oral surgery History of Present Illness: HPI 28yo F transferred from [facility] for hyoid bone fracture vs infection. She has surgery in December and was told something was abnormal but then she began to have pain and problems eating. It got terrible tonight and was transferred here. For OMFS. Past Medical History/Immunizations: Past Medical History: Diagnosis Date Acute otitis media, bilateral 11/15/2020 Anemia Anxiety Left arm pain 11/15/2020 Pain in left foot 03/05/2022 Subacute maxillary sinusitis 11/15/2020 Transfusion history Type 2 diabetes mellitus without complication, without long-term current use of insulin Tetanus received in last 5 years: Unknown Allergies: No Known Allergies Past Social History: Tobacco Use Never smoked or used smokeless tobacco. Passive Exposure: Never Vaping Use Never used Alcohol Use Yes. Comments: ocassional Drug Use Never. Sexual Activity Sexually active; Partners: Male; Control/Protection: Injection. Past Surgical History: Past Surgical History: Procedure Laterality Date CHOLECYSTECTOMY COLONOSCOPY EXAM UNDER ANESTHESIA ORAL CAVITY (SHX) N/A 11/12/2023 Surgeon: Laura Martínez DDS; Location: [facility] FOOT ORIF ([facility]) HYOID SUSPENSION N/A 12/09/2023 Surgeon: Laura Martínez DDS; Location: [facility] LARYNGOSCOPY (SHX) N/A 11/12/2023 Surgeon: Laura Martínez DDS; [facility] LOCATION UVULOPHARYNGOPALATOPLASY Bilateral 12/09/2023 Surgeon: Laura Martínez DDS; Location: [facility] Review of Systems: Review of Systems All other systems reviewed and are negative. Physical Exam: ED Triage Vitals [05/30/24 0425] Weight 99.8 kg (220 lb) Actual or estimated Height BP (!) 177/71 Pulse 100 Resp 16 Temp 36.5 ?C (97.7 ?F) Temp source Oral SpO2 98 % Measured on Physical Exam Vitals reviewed. Constitutional: Appearance: She is well-developed. She is obese. HENT: Head: Normocephalic and atraumatic. Eyes: Conjunctiva/sclera: Conjunctivae normal. Cardiovascular: Rate and Rhythm: Normal rate and regular rhythm. Heart sounds: Normal heart sounds. No murmur heard. Pulmonary: Effort: Pulmonary effort is normal. Breath sounds: Normal breath sounds. No stridor. Abdominal: General: Bowel sounds are normal. Palpations: Abdomen is soft. Tenderness: There is no abdominal tenderness. Musculoskeletal: General: Normal range of motion. Cervical back: Neck supple. Skin: General: Skin is warm and dry. Capillary Refill: Capillary refill takes less than 2 seconds. Neurological: Mental Status: She is alert and oriented to person, place, and time. Cranial Nerves: No cranial nerve deficit. Psychiatric: Behavior: Behavior normal. Radiology: No orders to display Lab Results: Lab Results - No data to display EKG: If EKG completed, see Procedure Note. Orders and Treatments: Orders Placed This Encounter Procedures Consult Oral Maxillofacial Surgery No orders of the defined types were placed in this encounter. First Provider Eval: ED Events Date/Time Event User Comments 05/30/24450 Medical Screening Begins PEYTON LERMA MD -- 05/30/24450 First Provider Evaluation PEYTON LERMA MD -- ED COURSE Diagnosis/Impression as of 05/30/24 0634 Closed fracture of larynx and trachea, initial encounter Procedures: Procedures MDM: Medical Decision Making Reviewed CT done in C Consulted OMFS Signed out pending OMFS reccs Flowsheet Documentation: Scoring Tools: No data recorded Disposition/Condition: ED Disposition None Discharge Medications: Patient's Medications START taking these medications No medications on file CONTINUE taking these medications which have NOT CHANGED KETOCONAZOLE 2 % CREAM Apply to area(s) 2 (two) times daily. METFORMIN 500 MG TABLET Take 1 tablet by mouth in the morning and 1 tablet in the evening. Take with meals. METHYLPREDNISOLONE (MEDROL, JESSICA,) 4 MG TABLETS Take by mouth SEE-INSTRUCTIONS. follow package directions NO115/IRON/FOLIC ACID ( 19 ORAL) Take by mouth. PROPRANOLOL 10 MG TABLET Take 1 tablet by mouth in the morning and 1 tablet in the evening. Do all this for 180 days. TRIAMCINOLONE ACETONIDE 0.1 % CREAM Apply to area(s) 2 (two) times daily. START taking Modified Medications as Prescribed No medications on file STOP taking these medications No medications on file Follow-up: Electronically signed by: Peyton Lerma DO 05/30/24 0634 [facility] 2024-05-30 04:24:00 Signed out to me at [address] Lerma. 28yo F transfer from [facility] for neck/throat pain, CT with hyoid fracture vs osteomyelitis. OMFS accepted in transfer, they have seen patient, awaiting recs. UNDER MY CARE: Seen by OMFS: PLAN - Recommend discharge with Augmentin - Patient to follow up in OMFS clinic - Plan for outpatient removal of hardware - Patient to return to ED if symptoms increase, difficulty managing secretions, shortness of breath I saw and evaluated the patient who was amenable to plan of care, requested abx be sent to [facility]. Discharged per OMFS recs. Tristian Mckeon MD 05/30/24 0759 [facility] 2024-05-30 03:23:44 Patient transferred to [facility] fro diagnosis of neck swelling. Patient agrees to transfer/admit plan and verbalized understanding of plan of care, family aware of plan. Patient awake alert, oriented, resp reg unlabored, skin w/d PIV intact. No adverse reaction to medications given while in ED. Report given to [facility] ambulance EMS personnel. K SKETCH ARTIST Suki Ryder RN [facility] 2024-05-30 03:21:59 Report given to JOHN Llanes. From [facility] ED. Admitting/transfer diagnosis, labs results and VS reviewed. [facility] 2024-05-29 22:23:24 Pt ambulatory to triage with CC of facial swelling. Pt reports she had palate sx December 08 for sleep apnea. Swelling is under jaw in between chin and throat. Pt reports it started yesterday and reports more trouble breathing. A&Ox4. Stringer RN [facility] 2024-05-16 16:45:00 Images from the original note were not included. Venipuncture collection performed by clean technique on the left anticubitus. Total of 1 attempts were made. Slight pressure and a bandage/dressing were applied to the site(s). The patient experienced no complications. The following specimens were processed according to instructions and sent to [facility] laboratories per lab order on 05/16/2024: LT BLUE SST 1 1 Xtra RED LAV 1 PPT DK GREEN (LiHep) DK GREEN (SodH) GARY DK BLUE (K2) DK BLUE (S) ACD Blood Culture NIPT/NTD [facility] 2024-04-27 17:48:50 Lab results from [facility]'s Printed and placed in providers box. Quinonez [facility] 2024-02-22 17:21:25 Contacted patient to receive more information, patient stated that this has already been taken care of and they have received paperwork. Patient advised to give clinic another call if she has any more trouble. [facility] 2024-02-19 13:02:18 I do not have an order form for this -Susan please verify TOURIST CABIN KEEPER-FAMILY MIDLEVEL PROVIDER [facility] 2024-02-17 13:35:33 Will retrieve paperwork and complete form. Lulu Parsons MA [facility] 2024-02-17 11:30:07 Images from the original note were not included. Sivakumar Neville [facility] 2024-02-17 08:53:03 Please review and send in order if appropriate [facility] 2024-02-16 17:11:00 Regardin+ blood sugar ----- Message from Shraddha Vera sent at 02/16/2024 5:09 PM CDT ----- Pt states blood sugar has been out of control. Pt states she checked this morning and it was over 300. Placed TE to clinic she has been waiting since the for her omnipod orders. No other symptoms but being tired. Katie Connell RN [facility] 2024-02-16 17:11:00 Nurse's Note: 5:12 PM [...] row Protocols used: Diabetes - High Blood Tgatt-[id number] Disposition: After assessment and triage, patient advised to see provider within 4 hours and directed to the ED for evaluation. Follow up appointment scheduled on 02/18/24 at 0930 at PCP clinic. Patient agreed to disposition. Katie Connell RN 02/16/2024 5:27 PM [facility] 2024-02-16 16:57:46 Rosanne Resendiz is a 28 year old female Pt calling in to f/u on order form from [employer]. Please send in orders. Pt has been waiting since 02.01.24 and they are saying they never received it. Pt states she needs this for her blood sugar and her blood sugar has been out of control. Please advise and contact pt [phone] (home) Shraddha Vera [facility] 2024-02-01 10:11:50 Received order form from [employer] [facility] [employer], provider signature required, placed in providers box for review. Cecille Paez [facility] 2024-01-29 09:41:01 Spoke with Shraddha / [facility] and relayed the information per Kelly Reynaga DNP. She stated that she would make a note. Lara Simmons RN [facility] 2024-01-28 17:37:45 Did she maybe discus this with Nicky at recent visit- she did not see me last and we have not discussed this. T[employer]RI[employer] KEEPER[employer]FAMILY MIDLEVEL PROVIDER [facility] 2024-01-28 11:04:00 Loraine / [facility] calling to check the status of the order. Please Advise. Janis Peralta [facility] 2024-01-27 15:55:03 Please review and advise. LOS 01/14/24 NOV 06/17/24 Monica Fernando LVN [facility] 2024-01-27 15:39:37 Rosanne Resendiz is a 28 year old female and [facility] with [facility] is calling asking if a verbal prescription order can be given for the pt. Che had faxed over forms for the order on 01/04/24 as well. Pt is asking to order the Omnipod Dash a insulin controller. Nisha Whiting [facility] 2024-01-25 07:05:53 PA not required: The Community and State Medicaid Prior Authorization Team is not able to review this request because the brand name for the requested product is preferred on the formulary and is covered without prior authorization requirements. Patient notified of outcome and encouraged to contact pharmacy to provide an update. Monica Fernando SANDBLASTER PAINT SPRAYER [facility] 2024-01-18 12:29:19 PA initiated on 01/18/2024: Barillas: [id number] PA Will provide updates as recd Monica Fernando SANDBLASTER PAINT SPRAYER [facility] 2024-01-15 14:16:34 Images from the original note were not included. Receive PA Barillas Code below and have placed in provider's box. Lucy Dietz [facility] 2024-01-14 13:15:00 Images from the original note were not included. Venipuncture collection performed by clean technique on the right anticubitus. Total of 1 attempts were made. Slight pressure and a bandage/dressing were applied to the site(s). The patient experienced no complications. The following specimens were processed according to instructions and sent to [facility] laboratories per lab order on 01/14/2024 : LT BLUE SST 1 RED LAV 2 PPT DK GREEN (LiHep) DK GREEN (SodH) GARY DK BLUE (K2) DK BLUE (S) ACD Blood Culture NIPT/NTD Patient has been identified by and name and was provided with cup, antiseptic towelette, and clean catch instructions. 1 urine specimen(s) sent. Unpreserved 1 Urine Culture Aptima tube Other urine [facility] 2024-01-13 16:24:00 Patient in clinic with c/o hyperglycemia and requesting to change DM medication. She stated going to the ER on 12/18 for vomiting blood and per self has since stopped using Ozempic. No distress noted. Patient A&OX3. POCT glucose collected and 183. BP 120/83 HR 101 SPO2 97% RR 18. ER F/U scheduled for 01/13 with Nicky Peck. Monica Fernando LVN [facility] 2023-12-19 12:28:31 Rosanne Resendiz is a 28 year old female is calling to inform the clinic that she was in the ER yesterday for vomiting blood. Kamilla Ryder 12/19/2023 12:29 PM Kamilla Ryder [facility] 2023-12-19 07:09:41 Pt and mother given [...] in no apparent distress Scarlett Stone RN [facility] 2023-12-19 03:32:41 CC: Pt reports surgery [...] without difficulty, amb with steady gait See [facility] for surgery notes Jono Mills RN [facility] 2023-12-17 11:44:06 Endocrine provider will be retiring. Pt able to transfer back to PCP for diabetes management. 6 month refill of diabetic medication sent into pharmacy. [facility] 2023-12-11 13:40:00 Patient left unit via wheelchair accompanied by her parents and with all her belongings. EENT Betty Brown RN [facility] 2023-12-11 11:26:05 Patient and parents given discharge instructions. They all verbalized understanding. Iv catheter removed, no bleeding noted and tip noted to be intact. O2 monitoring machine disconnected and removed from the room. [facility] 2023-12-11 08:34:56 Problem: Pain Goal: Control [...] Goal: Patent airway Outcome: Progressing as expected [facility] 2023-12-10 20:56:46 Problem: Pain Goal: Control [...] Patent airway Outcome: Progressing as expected [facility] Adán Chew RN [facility] 2023-12-10 17:43:08 Problem: Pain Goal: Control of pain at or below patient's documented comfort goal Outcome: Progressing as expected Problem: Bleeding, Risk of Goal: Absence of impaired coagulation signs and symptoms Outcome: Progressing as expected [facility] 2023-12-10 01:24:16 Problem: Pain Goal: Control [...] Goal: Patent airway Outcome: Progressing as expected T Citlalli Porter RN [facility] 2023-12-07 16:30:00 Collection is to far in the future to be collected.Candelaria Forte 12/07/2023 4:14 PM [facility] 2023-11-26 14:30:00 Images from the original note were not included. Venipuncture collection performed by clean technique on the left anticubitus. Total of 1 attempts were made. Slight pressure and a bandage/dressing were applied to the site(s). The patient experienced no complications. The following specimens were processed according to instructions and sent to [facility] laboratories per lab order on 11/26/2023: LT BLUE SST 2 RED 1 LAV PPT DK GREEN (LiHep) DK GREEN (SodH) GARY DK BLUE (K2) DK BLUE (S) ACD Blood Culture NIPT/NTD [facility] 2023-10-21 16:44:49 Reminded Rosanne Resendiz of upcoming appointment scheduled for 10/23/23 at 2 pm. Patient verbalized understanding. Keeley Schilling [facility] 2023-10-19 08:00:00 Images from the original note were not included. Venipuncture collection performed by clean technique on the left anticubitus. Total of 1 attempts were made. Slight pressure and a bandage/dressing were applied to the site(s). The patient experienced no complications. The following specimens were processed according to instructions and sent to [facility] laboratories per lab order on 10/19/2023 : LT BLUE SST 2 RED LAV 1 PPT DK GREEN (LiHep) DK GREEN (SodH) GARY DK BLUE (K2) DK BLUE (S) ACD Blood Culture NIPT/NTD [facility] 2023-10-05 13:45:00 Orders for [place], Jaylan M, MD only [facility] 2023-09-15 15:13:45 Patient came by clinic and monitor was reapplied. Kayy Gaffney RN [facility] 2023-09-15 08:07:59 Copied from [facility] #[id number]. Topic: Clinical - Medical Advice >> Sep 15, 2023 8:07 AM Patient Bpm Solution Architect wrote: Rosanne Resendiz is a 27 year old female is calling and states a wire fell off of her chest. [phone] (home) Warm transferred to clinic nurse Yasmin Connell [facility] 2023-09-14 08:30:00 48 hour holter (SEER 1000, #1) applied to patient, tolerated well. Wear, care, diary entry and monitor return teaching given, understanding verbalized. Monitor to be returned on Thu by 1111am, return letter acknowledged and signed. Angélica Bryant MA [facility] 2023-09-11 12:15:00 Images from the original note were not included. Venipuncture collection performed by clean technique on the right anticubitus. Total of 1 attempts were made. Slight pressure and a bandage/dressing were applied to the site(s). The patient experienced no complications. The following specimens were processed according to instructions and sent to [facility] laboratories per lab order on today: LT BLUE SST 1 RED LAV PPT DK GREEN (LiHep) DK GREEN (SodH) GARY DK BLUE (K2) DK BLUE (S) ACD Blood Culture NIPT/NTD [facility] 2023-08-10 09:01:15 Testing brought in by patient. Scanned into ADC folder. Pending upload to [employer]. Placed in Dr. Henderson's ADC inbox folder for review. K SKETCH ARTIST Angélica Bryant MA [facility] 2023-08-04 14:10:20 Paperwork located. Kelly Reynaga DNP reviewed and declined signature. She states Patient does not qualify. Called [employer] and relayed the information to Blu. She voiced understanding. Simmons RN [facility] 2023-08-04 11:24:07 Can you please look for this, I am not back in office until Thursday. Thank you. K SKETCH ARTIST [facility] 2023-08-04 08:33:37 Copied from [facility] #[id number]. Topic: Clinical - Order >> Aug 04, 2023 8:30 AM MyChart Team wrote: Shraddha from [employer] called to see if clinic received order for Continuous Glu close Monitor faxed over 08/03 just verifying order Please advise K SKETCH ARTIST Tatianna Avina [facility] 2023-07-30 15:27:23 Images from the original note were not included. Notes: 06/25/23 Last Refilled: [facility] [id number] - [place], [place]ET[place] - [facility] [address] POCT HBA1C (%) Date Value 10/15/2021 6.3 (A) Recent Visits Date Type Provider Dept 07/24/23 Office Visit Nicky Peck PA [facility] 06/17/23 Office Visit Nicyk Peck PA [facility] 05/15/23 [...] month ago (06/25/2023) by GRACIELA Rice Off-Protocol [id number]/30/2023 02:24 PM Protocol Details Medication not assigned to a protocol, forward to provider. Valid encounter within last 12 months To be filled at: [facility] [id number] [address] [facility] 2023-07-15 08:33:15 LOS-04/21/23 NOV-07/23/23 Called pharmacy and spoke with pharmacy staff. They state pt has no refills. Vitamin D last checked 04/21/23. Ok to refill ergocalciferol, vitamin d2, 1,250 mcg (50,000 unit) capsule. Please send if appropriate. Thank you. Marely Raza, RN [facility] 2023-07-15 08:29:47 Rosanne Resendiz is a 27 year old female Patient is calling in regards to the ergocalciferol, vitamin d2, 1,250 mcg (50,000 unit) capsule , mentions refill was denied due for being to soon. Pt has contacted pharmacy and their is no additional refills on file, but will try to reach out again. [facility] Baylee Ahmadi [facility] 2023-07-13 08:32:33 Images from the original note were not included. [facility] Nelly Fisher [facility] 2023-07-10 19:47:08 Rosanne Resendiz is a 27 year old female Patient is calling to request a refill on RX ergocalciferol, vitamin d2, 1,250 mcg (50,000 unit) capsule - states pharmacy needs a new script - please be advised [facility] [id number] - [place], [place] - [facility] [address] [facility] 2023-06-25 10:36:10 Last Refilled: Disp Refills Start End FADI semaglutide (OZEMPIC) 1 mg/dose (4 mg/3 mL) PnIj 3 Pen 1 05/22/2023 -- -- Sig: inject 1 mg under the skin weekly. Sent to pharmacy as: Ozempic 1 mg/dose (4 mg/3 mL) subcutaneous pen injector (semaglutide) Class: eRX Route: Subcutaneous Order: [id number] Date/Time Signed: 05/22/2023 11:51 Notes: Recent Visits Date Type Provider Dept 06/17/23 Office Visit Nicky Peck PA [facility] 05/15/23 Office Visit Nicky Peck PA [facility] 03/26/23 Office Visit RazStephenie herronthia, APPLICATION DEFENSE MANAGER [facility] 12/24/22 Office Visit Nicky Peck PA [facility] 11/12/22 Office Visit Nicky Peck PA [facility] 09/08/22 Office Visit Stephenie Reynagathia, APPLICATION DEFENSE MANAGER [facility] 08/08/22 Office Visit Anegermaine Kelly, APPLICATION DEFENSE MANAGER [facility] 06/27/22 Office Visit AneStephenie herronthia, APPLICATION DEFENSE MANAGER [facility] 04/11/22 Office Visit AneSathya herrona, APPLICATION DEFENSE MANAGER [facility] 02/07/22 Office Visit Kelly Reynaga, APPLICATION DEFENSE MANAGER [facility] Showing recent visits within past 540 days with a meds authorizing provider and meeting all other requirements Future Appointments No visits were found meeting these conditions. Showing future appointments within next 150 days with a meds authorizing provider and meeting all other requirements [facility] Lara Simmons RN [facility] 2023-06-17 17:00:00 Images from the original note were not included. Patient has been identified by name and was provided with cup, antiseptic towelette, and clean catch instructions. 1 urine specimen(s) sent. Unpreserved Urine Culture 1 Aptima tube Other urine [facility] 2023-06-17 09:19:49 Patient has appointment today 06/17/23. Will address in clinic. Mirtha Bowman LVN 06/17/2023 9:20 AM [facility] 2023-06-12 16:57:47 Rosanne Resendiz is a 27 year old female is returning a call she missed from the clinic in regards to EKG results. Please advise. [phone] [facility] 2023-06-12 16:53:14 Attempted to reach patient , no answer left V/M Ho MA [facility] 2023-06-12 16:50:02 Looks like she was checked in 06/10/23 at the hospital for the EKG No results in chart K SKETCH ARTIST [facility] 2023-06-12 13:14:56 I do not see EKG results either. Perhaps she completed with an external provider? K SKETCH ARTIST ESTRELLA-PHYSICIAN CURRICULUM MANAGER MIDLEVEL PROVIDER [facility] 2023-06-12 12:33:32 Please review and advise. Did not see any EKG results in chart. Elizabeth RN [facility] 2023-06-11 16:29:14 Rosanne Resendiz is a 27 year old female patient is requesting a call from the clinic in regards to EKG results. Please advise. [phone] [facility] 2023-02-10 08:57:57 Formatting of this n ote might be different from the original. Labs re-printed and faxed to [phone] [facility] 2023-02-05 09:42:45 Formatting of this n ote might be different from the original. Ana María from [facility] called, requesting lab results re faxed , she she stated it got deleted by mistake. . Kiesha Katz [facility] 2023-02-04 14:35:27 Formatting of this n ote might be different from the original. 3rd attempt to reach patent. Closing encounter. Mirtha Bowman LVN 02/04/2023 2:35 PM [facility] 2023-02-03 16:04:46 Formatting of this n ote might be different from the original. Attempted to contact patient. No answer. Left message to call back. [facility] 2023-02-03 14:57:21 Formatting of this n ote might be different from the original. Patient is requesting a call back regarding results. Diane Ga [facility] 2023-02-02 17:03:43 Formatting of this n ote might be different from the original. Rosanne Resendzi is a 27 year old female Patient is returning a missed call in regards to lab results. Please advise [phone] (home) Brenda Nieves [facility] 2023-02-02 14:24:53 Formatting of this n ote might be different from the original. Attempted to contact patient. No answer. Left message to call back. Mirtha Bowman LVN 02/02/2023 2:25 PM [facility] 2023-02-02 13:14:29 Formatting of this n ote might be different from the original. Patient would like a nurse to call her regarding her lab results. Loan Huddleston [facility] 2023-01-26 14:14:51 Formatting of this n [...] last 12 months To be filled at: [facility] [id number] [place] [address] Recent Visits Date Type Provider Dept 12/24/22 Office Visit Nicky Peck PA [facility] 11/12/22 Office Visit Nicky Peck PA [facility] 09/08/22 Office Visit Kelly Reynaga FNP [facility] 08/08/22 Office Visit Kelly Reynaga FNP [facility] 06/27/22 Office Visit Anene, Kelly, APPLICATION DEFENSE MANAGER [facility] 04/11/22 Office Visit Kelly Reynaga, APPLICATION DEFENSE MANAGER [facility] 02/07/22 Office Visit Kelly Reynaga FNP [facility] 01/17/22 Office Visit Kelly Reynaga APPLICATION DEFENSE MANAGER [facility] 12/24/21 Office [...] authorizing provider and meeting all other requirements [facility] 2023-01-26 07:44:09 Formatting of this n ote might be different from the original. Pt is checking the status. [facility] 2023-01-24 21:24:28 Formatting of this n ote might be different from the original. Rosanne Resendiz is a 27 year old female that is requesting refills of ozympic. [facility] [id number] [place] [address] [place] [id number] Please advise. Keisha Harvey [facility] 2023-01-07 14:00:00 Formatting of this n ote is different from the original. Images from the original note were not included. Venipuncture collection performed by clean technique on the left anticubitus. Total of 1 attempts were made. Slight pressure and a bandage/dressing were applied to the site(s). The patient experienced no complications. The following specimens were processed according to instructions and sent to [facility] laboratories per lab order on 01/07/2023 LT BLUE SST 3 RED LAV PPT DK GREEN (LiHep) DK GREEN (SodH) GARY DK BLUE (K2) DK BLUE (S) ACD Blood Culture NIPT/NTD [facility] 2022-12-24 14:30:00 Formatting of this n ote is different from the original. Images from the original note were not included. Venipuncture collection performed by clean technique on the right anticubitus. Total of 1 attempts were made. Slight pressure and a bandage/dressing were applied to the site(s). The patient experienced no complications. The following specimens were processed according to instructions and sent to [facility] laboratories per lab order on 12/24/2022 LT BLUE SST 1 RED LAV PPT DK GREEN (LiHep) DK GREEN (SodH) GARY DK BLUE (K2) DK BLUE (S) ACD Blood Culture NIPT/NTD [facility]
[2025-03-06 20:12] LABS: Influenza A Ag Negative; Influenza B Ag Negative; SARS-CoV-2 Antigen Rapid Res Negative (Negative)
--- NOTE | 2025-03-06 20:20 | EDPHYS ---
Physician Documentation [facility] Name: Rosanne Spakrs Age: 29 yrs Sex: Female : 1995 Arrival Date: 03/06/2025 Time: 19:14 Bed 26 Private MD: ED Physician Jeff Farr HPI: 03/06 20:18 This 29 yrs old Female presents to ER via Ambulatory with complaints of Ear kb Pain, Sinus Congestion. 20:18 Patient is a 29-year-old female presents for sinus congestion and bilateral ear pain kb that started yesterday. Denies cough, fever. States she has a history of tachycardia and did not take her medications today.. GROUNDS PERSON: 20:25 Not kj2 Historical: - PMHx: 19:32 Diabetes - IDDM; high heart rate; kb4 - Immunization history:: Adult Immunizations up to date, Adult Immunizations up to date. - Infectious Disease History:: Denies. - Social history:: Smoking status: Patient denies any tobacco usage or history of. ROS: 20:18 Constitutional: As per HPI kb Exam: 20:18 Constitutional: This is a well developed, well nourished patient who is awake, alert, kb and in no acute distress. Head/Face: Normocephalic, atraumatic. ENT: Moist Mucous membranes Respiratory: Respirations even and unlabored. No increased work of breathing. Talking in full sentences Skin: Warm, dry with normal turgor. Normal color. MS/ Extremity: Pulses equal, no cyanosis. Neurovascular intact. Full, normal range of motion. Neuro: Awake and alert, GCS 15, oriented to person, place, time, and situation. 20:18 ENT: External ear(s): are unremarkable, Ear canal(s): are normal, TM's: are normal, 20:18 Cardiovascular: Rate: tachycardic, Vital Signs: 19:30 BP 115 / 72; Pulse 123; Resp 18; Temp 97.8; Pulse Ox 97% ; Weight 95.25 kg; Height 5 kb4 ft. 0 in. ; Pain 0/10; 20:15 BP 107 / 80; Pulse 123; Resp 20; Pulse Ox 100% ; kj2 20:36 BP 109 / 67; Pulse 109; Resp 20; Temp 97.9; Pulse Ox 97% ; kj2 19:30 Body Mass Index 41.01 (95.25 kg, 152.4 cm) kb4 19:30 Pain Scale: Adult kb4 MDM: 19:20 Medical Screening Exam initiated yasmeen 20:19 Differential diagnosis: otitis media, otitis externa, ruptured TM, acute otalgia, kb Sinusitis. Data reviewed: vital signs, nurses notes. I considered the following discharge prescriptions or medication management in the emergency department I discussed and recommended Over The Counter medications, Antibiotics: At this time antibiotics are not recommended. Counseling: I had a detailed discussion with the patient and/or guardian regarding the historical points, exam findings, and any diagnostic results supporting the discharge/admit diagnosis, lab results, the need for outpatient follow up, a family practitioner, to return to the emergency department if symptoms worsen or persist or if there are any questions or concerns that arise at home. 03/06 19:37 Order name: COVID-19 Ag + Flu A+B Ag; Complete Time: 20:18 kb 03/06 19:37 Order name: Group A Streptococcus Rapid; Complete Time: 20:00 kb 03/06 20:02 Order name: Throat Culture EDMS Administered Medications: No medications were administered Disposition Summary: 03/06/25 20:20 Discharge Ordered Notes: Location: Home kb Condition: Stable kb Diagnosis - Otalgia, bilateral kb Followup: kb - With: Private Physician - When: 2 - 3 days - Reason: Recheck today's complaints, Continuance of care, Re-evaluation by your physician Followup: kb - With: Emergency Department - When: As needed - Reason: Worsening of condition Discharge Instructions: - Discharge Summary Sheet kb - Earache, Adult kb Forms: - Medication Reconciliation Form kb - Antibiotic Education kb - Prescription Opioid Use kb - Patient Portal Instructions kb - Leadership Thank You Letter kb Signatures: Dispatcher [employer] EDMS Jluia Coker, SYSTEMS TEST ENGINEER-C SYSTEMS TEST ENGINEER-Jeff Zepeda MD MD cha Bowen, Kayla, RN RN kb4 Corrections: (The following items were deleted from the chart) 19:33 19:32 PSHx: Cholecystectomy; kb4 kb4 19:33 19:32 PSHx: right foot; kb4 kb4 19:33 19:32 PSHx: palate surgery; kb4 kb4
--- NOTE | 2025-03-06 20:20 | ER ---
Nurse's Notes [facility] Name: Rosanne Sparks Age: 29 yrs Sex: Female : 1995 Arrival Date: 03/06/2025 Time: 19:14 Bed 26 Private MD: Diagnosis: Otalgia, bilateral Presentation: 03/06 19:30 Chief complaint: Patient states: EMMANUEL ear pain w/ drainage and congestion x1 d. kb4 Coronavirus screen: At this time, unable to obtain information related to travel outside the [place] Ebola Screen: No symptoms or risks identified at this time. Initial Sepsis Screen: Does the patient meet any 2 criteria? HR > 90 bpm. Does the patient have a suspected source of infection? No. Patient's initial sepsis screen is negative. Risk Assessment: Do you want to hurt yourself or someone else? Patient reports no desire to harm self or others. Onset of symptoms was March 06, 2025. Onset of symptoms was March 05, 2025. 19:30 Method Of Arrival: Ambulatory kb4 19:30 Acuity: GARRY 3 kb4 Triage Assessment: 19:32 General: Appears in no apparent distress. comfortable, Behavior is calm, cooperative. kb4 Pain: Complains of pain in right ear and left ear. 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 - Infectious Disease History:: Denies. - Social history:: Smoking status: Patient denies any tobacco usage or history of. Screenin:50 [facility] ED Fall Risk Assessment (Adult) History of falling in the last 3 months, kj2 including since admission No falls in past 3 months (0 pts) Confusion or Disorientation No (0 pts) Intoxicated or Sedated No (0 pts) Impaired Gait No (0 pts) Mobility Assist Device Used No (0 pt) Altered Elimination No (0 pt) Score/Fall Risk Level 0 - 2 = Low Risk Maintained a safe environment, Hourly rounding (assess needs \T\ fall precautionary measures) done. Abuse screen: Denies threats or abuse. Denies injuries from another. Nutritional screening: No deficits noted. Tuberculosis screening: No symptoms or risk factors identified. Assessment: 19:45 General: Appears in no apparent distress. Behavior is cooperative. Pain: Complains of kj2 pain in left ear and right ear Pain currently is 5 out of 10 on a pain scale. Neuro: Level of Consciousness is awake, alert, obeys commands, Oriented to person, place, time, situation. Cardiovascular: Patient's skin is warm and dry. Respiratory: Airway is patent Respiratory effort is unlabored. GI: No signs and/or symptoms were reported involving the gastrointestinal system. : No signs and/or symptoms were reported regarding the genitourinary system. 20:24 Reassessment: Patient appears in no apparent distress at this time. Patient is alert, kj2 oriented x 3, equal unlabored respirations, skin warm/dry/pink. Vital Signs: 19:30 BP 115 / 72; Pulse 123; Resp 18; Temp 97.8; Pulse Ox 97% ; Weight 95.25 kg; Height 5 kb4 ft. 0 in. ; Pain 0/10; 20:15 BP 107 / 80; Pulse 123; Resp 20; Pulse Ox 100% ; kj2 20:36 BP 109 / 67; Pulse 109; Resp 20; Temp 97.9; Pulse Ox 97% ; kj2 19:30 Body Mass Index 41.01 (95.25 kg, 152.4 cm) kb4 19:30 Pain Scale: Adult kb4 ED Course: 19:18 Patient arrived in ED. mr 19:20 Jeff Farr MD is Attending Physician. yasmeen 19:23 Mary Nuñez, RN is Primary Nurse. br2 19:24 Julia Coker FNP-C is [facility]. kb 19:32 Triage completed. kb4 19:33 Arm band placed on left wrist. kb4 19:50 Patient has correct armband on for positive identification. Bed in low position. Call kj2 light in reach. Provided Education on: call light. 20:25 No provider procedures requiring assistance completed. Patient did not have IV access kj2 during this emergency room visit. Administered Medications: No medications were administered Medication: 20:25 VIS not applicable for this client. kj2 Outcome: 20:20 Discharge ordered by . kb 20:25 Discharged to home ambulatory, kj2 20:25 Condition: stable 20:25 Discharge instructions given to patient, Instructed on discharge instructions, follow up and referral plans. Demonstrated understanding of instructions, follow-up care, 20:37 Patient left the ED. kj2 Signatures: Julia Coker, BUNCHER OPERATOR-C BUNCHER OPERATOR-CkJeff Do MD MD cha Rivera, Mary, [facility] Ketan mr Nuñez Mary, RN RN br2 Jennifer Singh, RN RN kj2 Claribel Cuello, JOHN RN kb4 Corrections: (The following items were deleted from the chart) 19:33 19:32 PSHx: Cholecystectomy; kb4 kb4 19:33 19:32 PSHx: right foot; kb4 kb4 19:33 19:32 PSHx: palate surgery; kb4 kb4
[2025-03-06 21:16] VITALS: BP 109/67; TEMP 97.9; O2SAT 97
== END 2025-03-06 20:37 | disposition home or self-care (01) ==
LOC: ER 19:14
DX: H92.03 Otalgia, bilateral (principal); Z11.52 Encounter for screening for COVID-19
CPT/HCPCS: 36415; 87070; 87428; 99283